=== PATIENT | female | born 1990 | race Caucasian/White ===

== ENCOUNTER 2017-11-25 16:43 | Emergency (ER) | payer MEDICAID, SELFPAY ==
[2017-11-25 16:44] VITALS: BP 146/93; PULSE 89; RESP 16; TEMP 36.7; O2SAT 96; BMI 28.8
--- NOTE | 2017-11-25 16:59 | RAD_ITS ---
STUDY: X-RAY - RIGHT WRIST REASON FOR EXAM: Female, 27 years old. Fall. Pain. TECHNIQUE: 3 view(s) of the wrist were obtained. COMPARISON: None. FINDINGS: Normal visualized distal radius and ulna. Normal radiocarpal articulation. Normal distal radioulnar articulation. Normal carpal bones. Normal carpal articulations. Normal carpometacarpal articulation of the thumb. Normal second through fifth carpometacarpal articulations. Normal visualized metacarpal bones. The soft tissue structures are unremarkable. RAD/Wrist min 3 Views IMPRESSION: Normal x-ray examination of the wrist. Electronically Signed: Fernie Ruffin DO at 17:23 EST Tel [phone], Service support ,
--- NOTE | 2017-11-25 17:00 | ED.DCSUM_ITS ---
- ER Visit Summary Date of Service: 11/25/17 Chief Complaint: [] Wrist pain History of Present Illness: The patient is a 27 F [] complaining of right wrist pain after mechanical fall on outstretched hand. Patient reports she tripped on something in her garage while cooking on her grill. Denies pain in the forearm or elbow. Physical Examination: [] Tenderness palpation to the radial aspect of the right wrist. Neurovascularly intact distally. Obvious contusion to the wrist. Test Results: [] X-rays of the right wrist: Negative. Emergency Department Course and Treatment: [] Patient did not want pain medication. Provided wrist splints and encouraged to take [id number] NSAIDs. Treatment Plan: [] Follow-up with PCP. Disposition: [] Discharge, stable. Impression: [] Wrist sprain This note was generated with [employer] dictation software. It may contain incorrect words, spelling, and punctuation that were not noted in review of the chart prior to signing ED Disposition - Plan for ED Patient: Chief Complaint: Upper Extremity Injury Referrals: Care Physician,No Primary [Primary Care Provider] -
--- NOTE | 2017-11-25 17:59 | ED.DEP ---
ED Disposition - Plan for ED Patient: Disposition: Home or Assisted Living Chief Complaint: Upper Extremity Injury Instructions: ED Sprain Wrist Referrals: Care Physician,No Primary [Primary Care Provider] -
== END 2017-11-25 18:11 | disposition home or self-care (01) ==
PROVIDERS: Emergency Provider Emergency Medicine
DX: S63.501A Unspecified sprain of right wrist, initial encounter (principal); W18.09XA Striking against other object with subsequent fall, initial encounter; Y93.G3 Activity, cooking and baking; Y92.008 Other place in unspecified non-institutional (private) residence as the place of occurrence of the external cause; Y99.8 Other external cause status; J45.909 Unspecified asthma, uncomplicated
CPT/HCPCS: 73110; 99283

== ENCOUNTER 2019-01-11 20:14 | Observation (INO) | payer MEDICAID, SELFPAY ==
[2019-01-11] VITALS (7 sets, daily range): BP systolic 119–135; BP diastolic 74–80; PULSE 89–124; RESP 16–20; TEMP 36.8; O2SAT 96–99; BMI 31.4
[2019-01-11] MEDS: predniSONE 20 MG Tablet 60 MG PO (20:33)
[2019-01-11] MEDS: Ipratropium/Albuterol Sulfate 3 ML AMPUL.NEB INHALATION (20:41)
--- NOTE | 2019-01-11 20:43 | ED.VISSUMM ---
- ER Visit Summary Date of Service: 01/11/19 Chief Complaint: Asthma exacerbation History of Present Illness: The patient is a 29 F with no primary care physician. She reports that she has a history of asthma. States it has been worse over the past week. She was started on prednisone naproxen 1 week ago. The taper finished yesterday. She reports that today she feels much worse. She is having severe shortness of breath at worst and moderate currently. She does report that she has a cough is productive yellow sputum. However, she reports this is typical of her asthma exacerbation. She denies any fever, chills, or other complaints. Physical Examination: Vitals: Stable. Afebrile. General: Well-nourished and well-developed. Head: Normocephalic atraumatic. Neck: Supple, no lymphadenopathy. No JVD. Nontender. Cardiovascular: Regular rate and rhythm. No murmurs. Respiratory: No respiratory distress. Moderate wheezing bilaterally with good air movement. Abdominal: Soft, nontender, nondistended, normal bowel sounds. No guarding, rebound, or peritoneal signs. Back: Nontender. Extremities: Nontender, no edema. Skin: Normal color, no rash. Neurologic: Alert and oriented ?3. Cranial nerves II through XII are intact. Normal strength and sensation. Psych: Normal affect. Emergency Department Course and Treatment: Patient was treated albuterol and Atrovent aerosols. She was given prednisone p.o. she had minimal relief. On repeat exam she is still wheezing. She was given 2 more albuterol aerosols with essentially no change. She then had a chest x-ray obtained that shows no acute disease. No pneumothorax. Treatment Plan: Patient has failed outpatient treatment. She just finished a week taper of prednisone. She will be discussed with Dr. Olvera and admitted for further evaluation and treatment. Disposition: Admitted in stable condition. Impression: 1. Asthma exacerbation. This note was generated with [employer] dictation software. It may contain incorrect words, spelling, and punctuation that were not noted in review of the chart prior to signing ED Disposition - Plan for ED Patient: Instructions: ED Bronchitis Asthmatic Prescriptions: Albuterol Aerosols [Ventolin Aerosols] 2.5 mg INHALATION Q4H PRN #25 vial Prednisone 10 mg PO DAILY #63 tablet Ipratropium [Atrovent] 0.25 mg INHALATION TID #1 box Referrals: Ashley Briscoe [NON-STAFF] - 1-2 Days if not improving
[2019-01-11] MEDS: Albuterol 2.5 MG/3 ML VIAL.NEB. INHALATION ×5 (21:43→23:45)
--- NOTE | 2019-01-11 23:08 | RAD_ITS ---
STUDY: X-RAY CHEST REASON FOR EXAM: Female, 29 years old. Shortness of breath TECHNIQUE: Single frontal view COMPARISON: April 08, 2016 FINDINGS: The lungs are expanded. Mild left lower lobe infiltrate suspected. Normal size heart. Normal mediastinum and vivi. Normal visualized pulmonary arteries. Normal visualized aortic arch and descending thoracic aorta. Normal visualized thoracic spine. Stable left clavicular ORIF. There is no demonstrated abnormality of the visualized soft tissue structures of the upper abdomen. RAD/Chest 1 View (Portable) IMPRESSION: Mild left lower lobe infiltrate. Electronically Signed: Gelacio Vazquez DO at 23:45 EDT Tel [phone], Service support ,
[2019-01-11] MEDS: 0.9% Normal Saline 1,000 ML 1000 ML IV (23:22)
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
[2019-01-12] VITALS (11 sets, daily range): BP systolic 110–119; BP diastolic 55–73; PULSE 80–103; RESP 16–21; TEMP 36.6–36.8; O2SAT 93–98; BMI 31.6; BMI 31.7
[2019-01-12] MEDS: Azithromycin 250 MG Tablet 500 MG PO (00:19)
[2019-01-12] MEDS: Ondansetron 4 MG/2 ML Vial IV (00:19)
[2019-01-12] MEDS: Morphine 4 MG/ML Syringe IV (00:19)
[2019-01-12] MEDS: guaiFENesin 1,200 MG Tablet 1200 MG PO ×2 (01:20→09:00)
[2019-01-12] MEDS: guaiFENesin/Codeine 5 ML UDC PO ×2 (01:20→07:46)
[2019-01-12] MEDS: Ipratropium/Albuterol Sulfate 3 ML AMPUL.NEB INHALATION ×2 (01:46→06:46)
[2019-01-12] MEDS: predniSONE 20 MG Tablet 40 MG PO (07:45)
--- NOTE | 2019-01-12 07:45 | RAD_ITS ---
STUDY: X-RAY CHEST REASON FOR EXAM: Female, 29 years old. Shortness of breath with dyspnea TECHNIQUE: Single AP portable view of the chest. COMPARISON: January 11, 2019 FINDINGS: Stable plate-screw fixation of the left clavicle. The lungs are clear and expanded. There is no demonstrated pleural abnormality. Normal size heart. Normal mediastinum and vivi. Normal visualized pulmonary arteries. Normal visualized aortic arch and descending thoracic aorta. Normal visualized thoracic spine. Normal visualized ribs, clavicles, and shoulders. There is no demonstrated abnormality of the visualized soft tissue structures of the upper abdomen. RAD/Chest 1 View (Portable) IMPRESSION: Normal x-ray examination of the chest. Electronically Signed: George Tejada DO at 11:59 EDT Tel , Service support ,
[2019-01-12] MEDS: Enoxaparin 40 MG/0.4 ML Syringe SC (09:00)
[2019-01-12] MEDS: Acetaminophen 500 MG Tablet 1000 MG PO (09:15)
[2019-01-12] MEDS: Albuterol 2.5 MG/3 ML VIAL.NEB. INHALATION (09:41)
--- NOTE | 2019-01-12 10:08 | PCM.PN.HOSP ---
Subjective: Patient was seen and examined. She complains of wheezes. Not on oxygen. Denies chest pain, SOB. Vitals/I&O's: Vital Signs Temp Pulse Resp BP Pulse Ox 98 F 98 21 H 110/55 L 98 01/12/19 06:30 01/12/19 09:43 01/12/19 09:43 01/12/19 06:30 01/12/19 07:28 Oxygen Delivery Method Room Air Weight: 91.8 kg Body Mass Index (BMI) 31.6 Intake and Output for Last 24 Hours 01/10/19 01/11/19 01/12/19 23:59 23:59 23:59 Intake Total 200 / 200 Balance 200 / 200 General: Alert, Oriented x3, Cooperative, No apparent distress, - - obese HEENT: Atraumatic, PERRLA, EOMI, Normocephalic Oral: Moist Mucosa Neck: Supple Lungs: Diminished, Rhonchi - generalised Cardiovascular: Regular rate, Regular Rhythm, Normal S1, Normal S2, No murmurs Abdomen: Bowel Sounds Present, Soft, Non Tender, Non-Distended, No Hepato-splenomegaly Extremities: No edema Skin: No rashes, No breakdown Musculoskeletal: No Tenderness to Palpation of Joints or Extremities Lymphatic: No Cervical, Supraclavicular, or Inguinal Adenopathy Neurological: Cranial nerves II-XII grossly intact Psych/Mental Status: Normal Affect, Appropriate Microbiology Past 72 Hours 01/12/19 01:50 Mucosa - Nose Respiratory Panel (PCR) - Final Rhinovirus Current Medications Acetaminophen (Tylenol) 1,000 mg PO Q8 [facility] Last Admin: 01/12/19 09:15 Dose: 1,000 mg Albuterol Sulfate (Ventolin Aerosols) 2.5 mg INHALATION Q2H PRN PRN PRN Reason: SHORTNESS OF BREATH Last Admin: 01/12/19 09:41 Dose: 2.5 mg Albuterol/Ipratropium (Duoneb) 3 ml INHALATION Q4H.RT [facility] Last Admin: 01/12/19 06:46 Dose: 3 ml Enoxaparin Sodium (Lovenox) 40 mg SC DAILY@1000 [facility] Last Admin: 01/12/19 09:00 Dose: 40 mg Guaifenesin (Mucinex) 1,200 mg PO BID [facility] Last Admin: 01/12/19 09:00 Dose: 1,200 mg Guaifenesin/Codeine Phosphate (Robitussin Ac) 5 ml PO Q6H PRN PRN PRN Reason: COUGH Last Admin: 01/12/19 07:46 Dose: 5 ml Magnesium Hydroxide (Milk Of Magnesia) 30 ml PO DAILY PRN PRN PRN Reason: Constipation Prednisone () 40 mg PO DAILY@0800 [facility] Last Admin: 01/12/19 07:45 Dose: 40 mg Sodium Chloride () 5 - 15 ml IV UD PRN PRN Reason: SALINE FLUSH Medical Necessity - Tobacco Use Smoking Status: Former smoker - She quit smoking 2 weeks ago. However she is a victim of secondhand smoking since many people in the house smoke. Assessment/Plan All Active Problems Asthma, extrinsic with exacerbation (Acute) 29 y/o female with PMHx of Asthma admitted with SOB and has been managed as acute asthma exacerbation. 1. Acute asthma exacerbation due to acute rhinovirus bronchitis, Managed on prednisone and breathing treatment, improved, Not on oxygen, will be discharged today on prednisone taper 2. History of Nicotine dependence, recently quit, advised to continue to quit 3. DVT prophylaxis with early ambulation/Lovenox Code Visit Inpatient E&M: 06098 Subs Hosp L2
--- NOTE | 2019-01-12 10:12 | PN_ITS ---
Subjective: Patient was seen and examined. She complains of wheezes. Not on oxygen. Denies chest pain, SOB. Vitals/I&O's: Vital Signs Temp Pulse Resp BP Pulse Ox 98 F 98 21 H 110/55 L 98 01/12/19 06:30 01/12/19 09:43 01/12/19 09:43 01/12/19 06:30 01/12/19 07:28 Oxygen Delivery Method Room Air Weight: 91.8 kg Body Mass Index (BMI) 31.6 Intake and Output for Last 24 Hours 01/10/19 01/11/19 01/12/19 23:59 23:59 23:59 Intake Total 200 / 200 Balance 200 / 200 General: Alert, Oriented x3, Cooperative, No apparent distress, - - obese HEENT: Atraumatic, PERRLA, EOMI, Normocephalic Oral: Moist Mucosa Neck: Supple Lungs: Diminished, Rhonchi - generalised Cardiovascular: Regular rate, Regular Rhythm, Normal S1, Normal S2, No murmurs Abdomen: Bowel Sounds Present, Soft, Non Tender, Non-Distended, No Hepato- splenomegaly Extremities: No edema Skin: No rashes, No breakdown Musculoskeletal: No Tenderness to Palpation of Joints or Extremities Lymphatic: No Cervical, Supraclavicular, or Inguinal Adenopathy Neurological: Cranial nerves II-XII grossly intact Psych/Mental Status: Normal Affect, Appropriate Microbiology Past 72 Hours 01/12/19 01:50 Mucosa - Nose Respiratory Panel (PCR) - Final Rhinovirus Current Medications Acetaminophen (Tylenol) 1,000 mg PO Q8 [facility] Last Admin: 01/12/19 09:15 Dose: 1,000 mg Albuterol Sulfate (Ventolin Aerosols) 2.5 mg INHALATION Q2H PRN PRN PRN Reason: SHORTNESS OF BREATH Last Admin: 01/12/19 09:41 Dose: 2.5 mg Albuterol/Ipratropium (Duoneb) 3 ml INHALATION Q4H.RT [facility] Last Admin: 01/12/19 06:46 Dose: 3 ml Enoxaparin Sodium (Lovenox) 40 mg SC DAILY@1000 [facility] Last Admin: 01/12/19 09:00 Dose: 40 mg Guaifenesin (Mucinex) 1,200 mg PO BID [facility] Last Admin: 01/12/19 09:00 Dose: 1,200 mg Guaifenesin/Codeine Phosphate (Robitussin Ac) 5 ml PO Q6H PRN PRN PRN Reason: COUGH Last Admin: 01/12/19 07:46 Dose: 5 ml Magnesium Hydroxide (Milk Of Magnesia) 30 ml PO DAILY PRN PRN PRN Reason: Constipation Prednisone () 40 mg PO DAILY@0800 L[facility] Last Admin: 01/12/19 07:45 Dose: 40 mg Sodium Chloride () 5 - 15 ml IV UD PRN PRN Reason: SALINE FLUSH Medical Necessity - Tobacco Use Smoking Status: Former smoker - She quit smoking 2 weeks ago. However she is a victim of secondhand smoking since many people in the house smoke. Assessment/Plan All Active Problems Asthma, extrinsic with exacerbation (Acute) 29 y/o female with PMHx of Asthma admitted with SOB and has been managed as acute asthma exacerbation. 1. Acute asthma exacerbation due to acute rhinovirus bronchitis, Managed on prednisone and breathing treatment, improved, Not on oxygen, will be discharged today on prednisone taper 2. History of Nicotine dependence, recently quit, advised to continue to quit 3. DVT prophylaxis with early ambulation/Lovenox Code Visit Inpatient E&M: 51101 Subs Hosp L2
--- NOTE | 2019-01-12 11:50 | CASEMGMT ---
Addendum entered by Courtney Lopez 01/12/19 12:13: Pt is discharged. SW tubed assist form to the retail pharmacy and let them know we are using hospital assist for pt. They will bring the meds to the pt by 2:15pm. Pt has two over the counter meds, SW asked pt about these, she states she does not need them. SW let the retail pharmacy know that they do not need to fill the Mucinex or Tylenol. SW let pt know that the retail pharmacy will bring the meds to her by 2:15pm, and that we used hospital assist. Pt thanked SW. No further needs, pt home today. STONE Fonseca, REGIONAL SERVICE MANAGER Original Note: SW met w/pt briefly as she does not have insurance at present. Pt states that she just recently reapplied for Medicaid, and is in the process of getting back on Medicaid, she does not need a Medicaid application. SW gave pt other resources for financial assist, including [employer], [facility], [facility] assist, dental assist programs, and list of food bennett and places for hot meals. SW inquired w/pt about her asthma medication, pt states she is out of all of her asthma meds, and they are not affordable. SW explained if she is discharged today can use hospital assist, and we can use this once per year. Otherwise, SW explained she can go to [employer] on Tuesday, could pay for a small amount to get through the weekend and then follow up to get assist for the rest on Tuesday. Pt states understanding. SW did leave a message for our financial dept to let them know that as per pt, she did recently reapply for Medicaid. SW did text physician and asked if she can send scripts to retail pharmacy so SW can assist pt today, even if pt is not discharged, as retail pharmacy is not open tomorrow. She states okay. SW will follow up w/retail pharmacy and pt. STONE Fonseca, REGIONAL SERVICE MANAGER
--- NOTE | 2019-01-12 11:51 | PCM.DC ---
- Discharge Diagnoses Reason(s) for Visit for Discharge Instructions: Shortness of breath You will use the following diet at home:: Regular Your food should be the consistency of: Regular Your liquids should be the consistency of: Regular/Thin Discharge Activity: Return to Normal Activity Weight Bearing Status: Weight bearing as tolerated Instructions: ED Bronchitis Asthmatic Additional Instructions: Complete your prednisone taper. Continue to use an inhaler as needed. Follow-up with your primary care doctor within 1-2 weeks. Allergies/Adverse Reactions: Allergies cefadroxil hydrate [From [facility] [place]] Allergy (Verified 01/11/19 20:17) Swelling Medications to take at Discharge Albuterol Aerosols [Ventolin Aerosols] 2.5 mg INHALATION Q4H PRN #25 vial 01/11/19 Acetaminophen [Tylenol] 1,000 mg PO Q8 PRN tablet 01/12/19 Albuterol Inhaler [Ventolin Hfa] 1 - 2 puff INHALATION Q4H PRN PRN #1 inhaler 01/12/19 Budesonide/Formoterol 160/4.5 [Symbicort 160/4.5 Mcg Inhaler (SP)] 2 puff INHALATION BID #1 inhaler 01/12/19 Guaifenesin [Mucinex] 1,200 mg PO BID #20 tablet 01/12/19 Prednisone 10 mg PO DAILY #30 tablet 01/12/19 The following prescriptions were given: Albuterol Aerosols [Ventolin Aerosols] 2.5 mg INHALATION Q4H PRN #25 vial Albuterol Inhaler [Ventolin Hfa] 1 - 2 puff INHALATION Q4H PRN PRN #1 inhaler PRN Reason: Wheezing Prednisone 10 mg PO DAILY #30 tablet Budesonide/Formoterol 160/4.5 [Symbicort 160/4.5 Mcg Inhaler (SP)] 2 puff INHALATION BID #1 inhaler Guaifenesin [Mucinex] 1,200 mg PO BID #20 tablet Primary Care Physician: Ashley Briscoe [NON-STAFF] - 1-2 Days if not improving Please follow up with your Primary Care Physician in: within 1-2 weeks Test Results: Test results from this visit will be discussed in further detail at your follow-up appointment, if applicable. Proposed Discharge Date: 01/12/19
--- NOTE | 2019-01-12 11:54 | DCINST_ITS ---
- Discharge Diagnoses Reason(s) for Visit for Discharge Instructions: Shortness of breath You will use the following diet at home:: Regular Your food should be the consistency of: Regular Your liquids should be the consistency of: Regular/Thin Discharge Activity: Return to Normal Activity Weight Bearing Status: Weight bearing as tolerated Instructions: ED Bronchitis Asthmatic Additional Instructions: Complete your prednisone taper. Continue to use an inhaler as needed. Follow-up with your primary care doctor within 1-2 weeks. Allergies/Adverse Reactions: Allergies cefadroxil hydrate [[place] [facility] [place] Allergy (Verified 01/11/19 20:17) Swelling Medications to take at Discharge Albuterol Aerosols [Ventolin Aerosols] 2.5 mg INHALATION Q4H PRN #25 vial 01/11/19 Acetaminophen [Tylenol] 1,000 mg PO Q8 PRN tablet 01/12/19 Albuterol Inhaler [Ventolin Hfa] 1 - 2 puff INHALATION Q4H PRN PRN #1 inhaler 01/12/19 Budesonide/Formoterol 160/4.5 [Symbicort 160/4.5 Mcg Inhaler (SP)] 2 puff INHALATION BID #1 inhaler 01/12/19 Guaifenesin [Mucinex] 1,200 mg PO BID #20 tablet 01/12/19 Prednisone 10 mg PO DAILY #30 tablet 01/12/19 The following prescriptions were given: Albuterol Aerosols [Ventolin Aerosols] 2.5 mg INHALATION Q4H PRN #25 vial Albuterol Inhaler [Ventolin Hfa] 1 - 2 puff INHALATION Q4H PRN PRN #1 inhaler PRN Reason: Wheezing Prednisone 10 mg PO DAILY #30 tablet Budesonide/Formoterol 160/4.5 [Symbicort 160/4.5 Mcg Inhaler (SP)] 2 puff INHALATION BID #1 inhaler Guaifenesin [Mucinex] 1,200 mg PO BID #20 tablet Primary Care Physician: Ashley Briscoe [NON-STAFF] - 1-2 Days if not improving Please follow up with your Primary Care Physician in: within 1-2 weeks Test Results: Test results from this visit will be discussed in further detail at your follow- up appointment, if applicable. Proposed Discharge Date: 01/12/19
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
== END 2019-01-12 14:14 | disposition home or self-care (01) ==
LOC: ED 20:46 → MS2 23:47
PROVIDERS: Admitting Provider Hospitalist; Emergency Provider Emergency Medicine; Visit Provider Internal Medicine
DX: J20.6 Acute bronchitis due to rhinovirus (principal); J45.901 Unspecified asthma with (acute) exacerbation; Z86.718 Personal history of other venous thrombosis and embolism; Z79.51 Long term (current) use of inhaled steroids; Z87.891 Personal history of nicotine dependence
CPT/HCPCS: 71045; 87633; 94640; 94667; 96372; 96374; 96375; 97802; 99218; 99283; J7030; G0378; J2405

== ENCOUNTER 2019-04-16 08:55 | Observation (INO) | payer MEDICAID, SELFPAY ==
[2019-01-12 00:32] VITALS: BMI 31.6
[2019-04-16] VITALS (13 sets, daily range): BP systolic 95–140; BP diastolic 50–84; PULSE 78–101; RESP 10–24; TEMP 36.3–36.8; O2SAT 93–98; BMI 28.8; BMI 30.7
[2019-04-16] MEDS: Albuterol 2.5 MG/3 ML VIAL.NEB. INHALATION ×8 (09:18→23:37)
[2019-04-16] MEDS: Ipratropium/Albuterol Sulfate 3 ML AMPUL.NEB INHALATION ×2 (09:18→11:37)
--- NOTE | 2019-04-16 09:26 | ED.VISSUMM ---
- ER Visit Summary Date of Service: 04/16/19 Chief Complaint: Asthma History of Present Illness: The patient is a 29 F with history of asthma. Patient states she has had increased shortness of breath over the weekend. Her home inhalers were not helping. She states she usually has flares this time a year she also helped a family member move this weekend and was exposed to a lot of dust. She was last on steroids approximately 3 months ago. Physical Examination: Vital signs unremarkable. Respiratory rate is 24 and pulse ox is 98% on room air. Patient sitting upright in bed reading a book. Heart is regular rate and rhythm. Lung sounds with inspiratory and expiratory wheezes throughout. Abdomen is soft and nontender. Test Results: CBC and chemistry studies unremarkable. Portable chest x-ray unremarkable. Emergency Department Course and Treatment: Patient was initially given aerosols and p.o. prednisone. On repeat evaluation she had increased air movement throughout but still had expiratory greater than inspiratory wheezes. She was given 2 additional albuterol treatments. On repeat evaluation at that time she continued to have significant wheezing. She was given an additional DuoNeb and decision was made to admit her. Treatment Plan: [] Disposition: Admit Impression: Asthma exacerbation This note was generated with [employer] dictation software. It may contain incorrect words, spelling, and punctuation that were not noted in review of the chart prior to signing ED Disposition - Plan for ED Patient: Referrals: Care Physician,No Primary [Primary Care Provider] -
[2019-04-16] MEDS: predniSONE 20 MG Tablet 60 MG PO (09:31)
--- NOTE | 2019-04-16 11:25 | RAD_ITS ---
STUDY: X-RAY CHEST REASON FOR EXAM: Female, 29 years old. Shortness of breath TECHNIQUE: Single AP portable view of the chest. COMPARISON: January 12, 2019 FINDINGS: Prior surgical fixation of the left clavicle, stable The lungs are clear and expanded. There is no demonstrated pleural abnormality. Normal size heart. Normal mediastinum and vivi. Normal visualized pulmonary arteries. Normal visualized aortic arch and descending thoracic aorta. Normal visualized thoracic spine. Normal visualized ribs, clavicles, and shoulders. There is no demonstrated abnormality of the visualized soft tissue structures of the upper abdomen. RAD/Chest 1 View (Portable) IMPRESSION: Normal x-ray examination of the chest. Electronically Signed: George Tejada DO at 11:43 EDT Tel , Service support ,
[2019-04-16 11:41] LABS: Absolute Lymphocyte Count 1.16 X10^3/ul (0.83-4.51); Absolute Neutrophil Count 8.3 X10^3/uL (2.0-7.7); Basophil# 0.02 X10^3/uL; Basophil% 0.2 % (0-1); Eosinophil# 0.21 X10^3/uL; Eosinophils% 2.1 % (0-5); Hematocrit 38.3 % (37-47); Hemoglobin 12.7 g/dl (12.0-15.0); Lymphocyte # 1.16 X10^3/ul (4.0); Lymphocyte % 11.4 % (19-41); Mean Corp Hgb Conc 33.2 g/gl (32-36); Mean Corpuscular Hgb 31.8 pg (27.0-32.0); Mean Platelet Vol. 9.8 fl (6.2-12.0); Monocyte# 0.47 X10^3/uL; Monocyte% 4.6 % (0-10); Neutrophil # 8.29 X10^3/uL (2.7-7.7); Neutrophil % 81.6 % (47-70); Platelet Count 171 K/mm3 (150-450); RBC Distribution Width CV 13.2 % (11.6-14.6); RBC Distribution Width SD 44.6 fl (35.1-43.9); Red Blood Count 3.99 M/mm3 (4.2-5.4); White Blood Count 10.2 K/mm3 (4.4-11.0)
[2019-04-16 11:44] LABS: POSITIVE COUNT NO; POSITIVE DIFFERENTIAL NO; POSITIVE MORPHOLOGY NO
[2019-04-16 11:54] LABS: Anion Gap 8 (5-15); BUN 16 mg/dL (7-18); Calcium,Total 8.2 mg/dL (8.5-10.1); Chloride 110 mmol/L (98-107); Creatinine, Serum 0.76 mg/dL (0.55-1.02); EST Glomerular Filtration Rate 96 mL/min (>60); Est Glom Filt Rate - Afr Amer 116 mL/min (>60); Estimated Creatinine Clearance 111.17 ml/min; Glucose 126 mg/dL (74-106); Potassium 3.9 mmol/L (3.5-5.1); Sodium Level 143 mmol/L (136-145)
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
[2019-04-16] MEDS: Loratadine 10 MG Tablet PO (18:37)
[2019-04-16] MEDS: 0.9% NaCl Peripheral Flush Adult/Peds IV ×2 (18:37→21:38)
[2019-04-16] MEDS: Acetaminophen 325 MG Tablet 650 MG PO (20:52)
[2019-04-17] VITALS (7 sets, daily range): BP systolic 107–119; BP diastolic 57–61; PULSE 76–88; RESP 18–20; TEMP 36.8–37.1; O2SAT 92–96
[2019-04-17] MEDS: Acetaminophen 325 MG Tablet 650 MG PO ×2 (03:25→09:38)
[2019-04-17] MEDS: Albuterol 2.5 MG/3 ML VIAL.NEB. INHALATION ×3 (03:33→10:55)
[2019-04-17] MEDS: 0.9% NaCl Peripheral Flush Adult/Peds IV (06:23)
[2019-04-17] MEDS: Loratadine 10 MG Tablet PO (08:30)
--- NOTE | 2019-04-17 09:56 | DCINST_ITS ---
You will use the following diet at home:: No restrictions Discharge Activity: Return to Normal Activity Allergies/Adverse Reactions: Allergies cefadroxil hydrate [From [facility]] Allergy (Verified 04/16/19 08:55) Swelling Medications to take at Discharge Albuterol Inhaler [Ventolin Hfa] 1 - 2 puff INHALATION Q4H PRN PRN #1 inhaler 04/17/19 Budesonide/Formoterol 160/4.5 [Symbicort 160/4.5 Mcg Inhaler (SP)] 2 puff PO DAILY #1 inhaler 04/17/19 Cetirizine HCl [Zyrtec] 10 mg PO DAILY #30 cap 04/17/19 Prednisone See Taper PO DAILY #30 tab 04/17/19 The following prescriptions were given: Prednisone See Taper PO DAILY #30 tab Transmission Status: Pending to [facility] Budesonide/Formoterol 160/4.5 [Symbicort 160/4.5 Mcg Inhaler (SP)] 2 puff PO DAILY #1 inhaler Transmission Status: Pending to [facility] Albuterol Inhaler [Ventolin Hfa] 1 - 2 puff INHALATION Q4H PRN PRN #1 inhaler PRN Reason: Wheezing Transmission Status: Pending to [facility] Cetirizine HCl [Zyrtec] 10 mg PO DAILY #30 cap Transmission Status: Pending to [facility] Primary Care Physician: Care Physician,No Primary [Primary Care Provider] - Please follow up with your Primary Care Physician in: 1 Week Test Results: Test results from this visit will be discussed in further detail at your follow- up appointment, if applicable. Proposed Discharge Date: 04/17/19
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
== END 2019-04-17 13:00 | disposition home or self-care (01) ==
LOC: ED 09:43 → MS3 12:34
PROVIDERS: Admitting Provider Internal Medicine; Emergency Provider Emergency Medicine; Visit Provider Internal Medicine
DX: J45.901 Unspecified asthma with (acute) exacerbation (principal); Z87.891 Personal history of nicotine dependence; Z86.718 Personal history of other venous thrombosis and embolism; Z79.51 Long term (current) use of inhaled steroids
CPT/HCPCS: 71045; 80048; 85025; 94640; 96374; 96376; 99218; 99251; 99284; A4216; G0378; G0463

== ENCOUNTER 2020-03-30 01:53 | Emergency (ER) | payer SELFPAY ==
[2019-04-16 12:49] VITALS: BMI 30.7
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
[2020-03-30] MEDS: HYDROcodone Bitartrate/Apap 5/325 Tablet PO (02:40)
[2020-03-30 03:12] VITALS: BP 123/59; PULSE 91; RESP 16; TEMP 36.2; O2SAT 93; BMI 37.3
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
[2020-03-30 04:00] VITALS: BP 106/52; PULSE 76; RESP 18; O2SAT 96
[2020-03-30 04:31] VITALS: PULSE 83; RESP 18
[2020-03-30] MEDS: Albuterol 2.5 MG/3 ML VIAL.NEB. INHALATION (04:31)
[2020-03-30] MEDS: AMOXICILLIN 500 MG CAPSULE PO (06:16)
[2020-03-30 06:17] VITALS: BP 134/78; PULSE 74; RESP 18; O2SAT 98
--- NOTE | 2020-03-30 06:18 | ED.RN ---
PT REFUSES TO HAVE HAND WOUND CLEANED., STATES SHE WANTS TO CLEAN THE WOUND AT HOME. EDUCATED RE: INCREASED RISK OF INFECTION AND IMPORTANCE OF CLEANSING.
== END 2020-03-30 07:02 | disposition home or self-care (01) ==
PROVIDERS: Emergency Provider Emergency Medicine
DX: S62.665A Nondisplaced fracture of distal phalanx of left ring finger, initial encounter for closed fracture (principal); S61.222A Laceration with foreign body of right middle finger without damage to nail, initial encounter; S51.821A Laceration with foreign body of right forearm, initial encounter; W22.8XXA Striking against or struck by other objects, initial encounter; Y93.89 Activity, other specified; Y92.9 Unspecified place or not applicable; F10.129 Alcohol abuse with intoxication, unspecified; Y90.9 Presence of alcohol in blood, level not specified; J45.909 Unspecified asthma, uncomplicated; Z88.1 Allergy status to other antibiotic agents; Z87.891 Personal history of nicotine dependence
CPT/HCPCS: 12002; 73090; 73130; 94640; 99285

== ENCOUNTER 2020-07-12 12:45 | Emergency (ER) | payer SELFPAY ==
[2020-07-12] VITALS (7 sets, daily range): BP systolic 106–129; BP diastolic 74–91; PULSE 94–110; RESP 16–24; TEMP 36.1; O2SAT 95–96; BMI 32.8
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
[2020-07-12] MEDS: Albuterol 2.5 MG/3 ML VIAL.NEB. INHALATION ×2 (13:10)
[2020-07-12] MEDS: Terbutaline 1 MG/ML Vial 0.25 MG SC (13:10)
[2020-07-12] MEDS: Ipratropium/Albuterol Sulfate 3 ML AMPUL.NEB INHALATION (14:43)
[2020-07-12] MEDS: Triamcinolone Acetonide 40 MG/ML Vial IM (14:45)
== END 2020-07-12 17:07 | disposition home or self-care (01) ==
PROVIDERS: Emergency Provider Emergency Medicine
DX: J45.901 Unspecified asthma with (acute) exacerbation (principal); Z87.891 Personal history of nicotine dependence
CPT/HCPCS: 94640; 99284

== ENCOUNTER 2022-03-23 06:41 | Emergency (ER) | payer MEDICAID, SELFPAY ==
[2022-03-23 06:42] VITALS: BP 131/93; PULSE 92; RESP 13; TEMP 36.6; O2SAT 100; BMI 32.3
[2022-03-23 06:48] VITALS: BP 111/80; BP 118/81; BP 123/89; PULSE 122; PULSE 81; PULSE 93
--- NOTE | 2022-03-23 07:03 | RAD_ITS ---
STUDY: X-RAY CHEST REASON FOR EXAM: Female, 32 years old. chest pain TECHNIQUE: Single AP portable view of the chest. 7:34 AM. COMPARISON: Previous chest radiographs of 04/16/2019, 01/12/2019 and 01/11/2019. FINDINGS: Slightly increased density is again projected over the lower lungs, due to overlying breast tissue, unchanged. No acute pulmonary infiltrates, pleural effusion or peribronchial cuffing identified. Normal size heart. Normal mediastinum and vivi. Normal visualized pulmonary arteries. Normal visualized aortic arch and descending thoracic aorta. No acute osseous abnormality. Metallic fixation plate and screws again projected over the left clavicle. There is no demonstrated abnormality of the visualized soft tissue structures of the upper abdomen. RAD/Chest 1 View (Portable) IMPRESSION: No significant interval change or acute process. Electronically Signed: Avery Robert MD at 7:49 EDT ,
--- NOTE | 2022-03-23 07:03 | EKG12_ITS ---
Test Reason : CHEST PAIN Blood Pressure : / mmHG Vent. Rate : 090 BPM Atrial Rate : 090 BPM P-R Int : 176 ms QRS Dur : 090 ms QT Int : 372 ms P-R-T Axes : 077 068 050 degrees QTc Int : 455 ms Normal sinus rhythm Nonspecific T wave abnormality Abnormal ECG Confirmed by KAMI TRUJILLO, JO ([id number]), editor house organ STEPH FAGAN ([id number]) on 03/24/2022 9:00:51 AM Referred By: ARON Confirmed By:JO MCCLURE MD
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
[2022-03-23 07:14] LABS: Absolute Lymphocyte Count 1.63 X10^3/uL (0.83-4.51); Absolute Neutrophil Count 6.8 X10^3/uL (2.0-7.7); Basophil# 0.02 X10^3/uL; Basophil% 0.2 % (0-1); Eosinophil# 0.01 X10^3/uL; Eosinophils% 0.1 % (0-5); Hemoglobin 14.3 g/dL (12.0-15.0); Lymphocyte # 1.63 X10^3/ul (0.83-4.51); Lymphocyte % 18.2 % (19-41); Mean Corpuscular Hgb 31.9 pg (27.0-32.0); Mean Corpuscular Volume 93.8 fL (81-99); Mean Platelet Vol. 10.4 fl (6.2-12.0); Monocyte# 0.45 X10^3/uL; NRBC Flagged by Analyzer 0 % (0-5); Neutrophil # 6.83 X10^3/uL (2.7-7.7); Neutrophil % 76.2 % (47-70); Platelet Count 256 K/mm3 (150-450); RBC Distribution Width CV 12.6 % (11.6-14.6); RBC Distribution Width SD 43.4 fl (35.1-43.9); Red Blood Count 4.48 M/mm3 (4.2-5.4)
[2022-03-23] MEDS: Ondansetron 4 MG/2 ML Vial IV (07:19)
[2022-03-23] MEDS: 0.9% Normal Saline 1,000 ML 1000 ML IV (07:19)
[2022-03-23] MEDS: LORazepam 2 MG/ML Syringe 1 MG IV (07:20)
[2022-03-23 07:28] LABS: D-Dimer Quantitative (DVT/PE) < 0.27 FEU/ug/m (0.27-0.49)
[2022-03-23 07:32] LABS: Anion Gap 6 (5-15); BUN 9 mg/dL (7-18); BUN/Creat Ratio 11.5 RATIO (10-20); Calcium,Total 9.1 mg/dL (8.5-10.1); Chloride 104 mmol/L (98-107); Creatinine, Serum 0.78 mg/dL (0.55-1.02); EST Glomerular Filtration Rate 91 mL/min (>60); Est Glom Filt Rate - Afr Amer 111 mL/min (>60); Estimated Creatinine Clearance 101.62 ml/min; Glucose 156 mg/dL (74-106); Potassium 3.2 mmol/L (3.5-5.1); Sodium Level 136 mmol/L (136-145); Troponin-I HS < 3 pg/mL (3.0-54.0)
[2022-03-23] MEDS: Potassium Chloride Oral Tablet 20 MEQ 40 MEQ PO (07:52)
[2022-03-23 08:42] VITALS: BP 160/88; PULSE 86; RESP 20; O2SAT 97
[2022-03-23] MEDS: Ziprasidone IM 20 MG/ML VIAL 10 MG IM (08:43)
[2022-03-23 10:53] VITALS: RESP 16
--- NOTE | 2022-03-23 13:38 | CM.ED ---
Social Work Psychiatric Assessment Reason for consult: Anxiety Informant(s): Patient Chief Complaint: LIANG and LIANG Ledy Bermudez met with patient. Patient was restless and moving from bed to around the bed at the beginning of the assessment. LIANG offered a stress ball, but patient declined and said ?it is not going to make a difference? but SW encouraged her to try. Patient said that she came to the ED for chest pains and anxiety. Patient said she ?couldn?t sleep? and that she ?could hear my heartbeat in my ears and I got dizzy.? Patient said that she had anxiety for ?years? and that nothing has helped. SW later talked to patient about drug use. Patient reports drug use of Percocet and marijuana but quit 1 year ago. SW discussed with patient that she had anxiety but masked it with the drugs, so her feelings of anxiety are amplified as she has not felt this intensity before. Patient verbalized understanding and was able to voice that she had felt this way similarity when she detoxed from opiates last year and had thought about it with these symptoms. Patient said that she had detoxed from opiates by herself and did that for her daughter. Patient said that she had decided to quit using last year as ?my daughter was getting older.? As this travel writer continued to talk about patient?s history of drug use and previous ways, she medicated herself patient appeared to relax more and was able to sit still and focus more. Patient was also able to respond to text messages. At the end of the conversation patient was able to talk and have good eye contact and was not as restless as she had been during the beginning of the conversation. Patient denied SI and HI. Patient was advised if she has any symptoms of SI/HI to come back to the ED and patient verbalized agreement and understanding. Marital/Social History: Marital Status: x Single Identified Gender: Female Sexual Orientation: Heterosexual Living Situation: Patient resides with her boyfriend, Randell and 10-year-old daughter, Kate. Support/Resources: Patient was asked about support, and she said ?no one.? History: x No Education and Employment History: Patient graduated from high school. Patient reports no learning issues. Patient attended to the [employer] and graduated the program for animal care. Patient is not employed. Mental Health Treatment/History: Patient reports she has never gone to a counselor. Reports she has never been on psych medication. Triggers/Stressors: Patient said that her stressors are ?financial and life in general.? Coping Skills: ?I don?t have any? and when SW suggested coping skills patient said she enjoyed music and crafts. Abuse Issues: Denied Substance Abuse Hx: x Yes Patient reports that she used marijuana and pills (Percocet?s) until last year when she stopped by herself, no program involved for treatment. Patient denied any current drug use. Patient denied any meth or crack use. Risk to Self/Others: Suicidal: Patient denied any thoughts of SI, any plans, and any attempts. Comments: Homicidal: Denied Comments: Violence: Denied Comments: Mental Status Exam: Orientation: x Time x Place x Person Memory: Good Appearance/General Behavior: x clean/appropriate Mood/Affect: Anxious and restless Communication Pattern: x responds to questions At one time patient stated she apologizes for being rude, but she was so anxious that it was uncomfortable, Thought Process: x appropriate General Intellectual Functioning: x Average Judgment: x fair Insight: fair Patient was educated on the [facility] PHP/IOP program. Patient was open to a referral. SW offered to call and schedule an intake appointment and patient said that she would do it as she must ensure she has a ride and childcare issues. Patient was able to discuss that she must make plans to obtain employment also (thus demonstrating future orientation). Patient reports a connection to her child and stated she quit drug use due to her child getting older. Patient also reports no SI/HI or any attempts of SI. LIANG educated patient on [employer], and patient declined information. LIANG provided patient with [employer] resource list and included the phone number for crisis. LIANG provided handout on [facility] Behavioral Health and included Cayla Gary?rober business card for contact. LIANG also was able to contract with patient that if she had thoughts of SI or HI, she would return to the ED. LIANG updated MD Adrianne Sales who agreed with plan for patient to be discharged with referral to IOP/PHP. LIANG sent email to Cayla Gary at [facility] regarding patient and her interest in the program. LIANG did not schedule an appointment as patient had stated she would call once her ride and child situation arrangements were arranged. Plan: Home with referral to PHP/IOP Luba SANDOVAL
--- NOTE | 2022-03-24 10:19 | CM.ED ---
Addendum entered by Ledy Belcher 03/24/22 14:36: Another call was placed to pt for follow up - no answer. Original Note: Social Work Note SW attempted to call pt for follow up phone call. SW left message for pt to call this worker back. Ledy Belcher RETAIL SEASONAL SPECIALIST, TRANSITIONS RN CARE COORDINATOR
== END 2022-03-23 11:13 | disposition home or self-care (01) ==
PROVIDERS: Emergency Medicine; Emergency Provider Emergency Medicine; Visit Provider Emergency Medicine
DX: F41.9 Anxiety disorder, unspecified (principal); R07.9 Chest pain, unspecified; R42 Dizziness and giddiness; F17.210 Nicotine dependence, cigarettes, uncomplicated; Z86.718 Personal history of other venous thrombosis and embolism
CPT/HCPCS: 71045; 80048; 84484; 85025; 85379; 87811; 93005; 96361; 96372; 96374; 96375; 99285; J7030; A4216; J2405; J3486

== ENCOUNTER 2024-10-16 00:25 | Emergency (ER) | payer MEDICAID, SELFPAY ==
[2024-10-16 00:26] VITALS: BP 102/87; PULSE 112; RESP 18; TEMP 36.8; O2SAT 97; BMI 26.4
[2024-10-16 00:32] VITALS: PULSE 114; RESP 16
[2024-10-16] MEDS: Ipratropium/Albuterol Sulfate 3 ML AMPUL.NEB INHALATION ×3 (00:32→01:01)
--- NOTE | 2024-10-16 00:58 | EKG12_ITS ---
Test Reason : DYSRHYTHMIA Blood Pressure : */* mmHG Vent. Rate : 98 BPM Atrial Rate : 98 BPM P-R Int : 148 ms QRS Dur : 88 ms QT Int : 408 ms P-R-T Axes : 83 81 72 degrees QTcB Int : 520 ms Normal sinus rhythm Possible Left atrial enlargement Nonspecific T wave abnormality Abnormal ECG Confirmed by KAMI TRUJILLO, JO ([id number]), assignment desk editor STEPH FAGAN ([id number]) on 10/18/2024 2:25:59 PM Referred By: TB Confirmed By: JO MCCLURE MD
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
[2024-10-16] MEDS: predniSONE 20 MG Tablet 60 MG PO (01:16)
[2024-10-16] MEDS: 0.9% Normal Saline (1000mL) 1,000 ML 999 ML IV (01:16)
--- NOTE | 2024-10-16 01:16 | CPS ---
[0049] x2 additional Duonebs given to pt. in ER. Pre-tx: VH=376, LB=534 with clearer breath sounds with inspiratory and expiratory wheezes. Post-tx: JD=221, RR=16 with clear breath sounds and only inspiratory wheezes.
[2024-10-16 01:26] LABS: Absolute Lymphocyte Count 1.01 X10^3/uL (0.83-4.51); Absolute Neutrophil Count 8.7 X10^3/uL (2.0-7.7); Basophil# 0.02 X10^3/uL; Basophil% 0.2 % (0-1); Hematocrit 41.1 % (37-47); Hemoglobin 13.9 g/dL (12.0-15.0); Lymphocyte # 1.01 X10^3/ul (0.83-4.51); Lymphocyte % 9.8 % (19-41); Mean Corp Hgb Conc 33.8 g/dL (32-36); Mean Corpuscular Hgb 32.3 pg (27.0-32.0); Mean Corpuscular Volume 95.6 fL (81-99); Mean Platelet Vol. 9.7 fl (6.2-12.0); Monocyte% 5.8 % (0-10); NRBC Flagged by Analyzer 0 % (0-5); Neutrophil # 8.66 X10^3/uL (2.7-7.7); Neutrophil % 83.7 % (47-70); Platelet Count 245 K/mm3 (150-450); RBC Distribution Width SD 45.5 fl (35.1-43.9); White Blood Count 10.3 K/mm3 (4.4-11.0)
--- NOTE | 2024-10-16 01:30 | RAD_ITS ---
EXAM: XR CHEST, 2 VIEWS CLINICAL INDICATION: sob, cough TECHNIQUE: Frontal and lateral views of the chest. COMPARISON: Single view chest 03/23/2022 FINDINGS: LUNGS AND PLEURAL SPACES: Unremarkable. No consolidation or edema. No pneumothorax. No effusion. HEART: Unremarkable. Cardiac silhouette not enlarged. MEDIASTINUM: Central airways and mediastinal contour are unremarkable. BONES/JOINTS: Stable surgical changes of the left clavicle. No acute fracture. SOFT TISSUES: Unremarkable. RAD/Chest PA and Lateral IMPRESSION: No acute findings in the chest. Electronically Signed: Jason Dumont MD at 1:57 EST ,
[2024-10-16 01:42] LABS: Anion Gap 7 (5-15); BUN 13 mg/dL (7-18); BUN/Creat Ratio 13.3 RATIO (10-20); Calcium,Total 9.3 mg/dL (8.5-10.1); Chloride 103 mmol/L (98-107); Creatinine, Serum 0.98 mg/dL (0.55-1.02); EST Glomerular Filtration Rate 69 mL/min (>60); Est Glom Filt Rate - Afr Amer 84 mL/min (>60); Estimated Creatinine Clearance 87.08 ml/min; Glucose 118 mg/dL (74-106); Potassium 3.5 mmol/L (3.5-5.1); Sodium Level 138 mmol/L (136-145)
[2024-10-16 02:25] VITALS: BP 109/64; PULSE 89; RESP 18; O2SAT 98
[2024-10-16 02:26] VITALS: O2SAT 96
[2024-10-16 02:27] VITALS: BP 109/64; PULSE 89; RESP 18; TEMP 36.8; O2SAT 98
[2024-10-16] MEDS: Doxycycline 100 MG CAPSULE PO (02:42)
[2024-10-16] MEDS: Albuterol Sulfate 8 gm Inhaler (60 puffs) 2 PUFF INHALATION (02:46)
== END 2024-10-16 02:48 | disposition home or self-care (01) ==
PROVIDERS: Emergency Provider Emergency Medicine; Visit Provider Emergency Medicine
DX: J45.901 Unspecified asthma with (acute) exacerbation (principal); F17.210 Nicotine dependence, cigarettes, uncomplicated
CPT/HCPCS: 71046; 80048; 85025; 93005; 94640; 99284; J7030

== ENCOUNTER 2024-10-16 21:12 | Observation (INO) | payer MEDICAID, SELFPAY ==
[2024-10-16] VITALS (12 sets, daily range): BP systolic 120–142; BP diastolic 68–112; PULSE 83–101; RESP 8–25; TEMP 36.6–36.8; O2SAT 96–98; BMI 26.5
[2024-10-16] MEDS: Ipratropium/Albuterol Sulfate 3 ML AMPUL.NEB INHALATION (21:28)
[2024-10-16] MEDS: 0.9% Normal Saline (1000mL) 1,000 ML 999 ML IV (21:29)
[2024-10-16] MEDS: MethylPREDNISolone 125 MG/2 ML Vial IV (21:29)
[2024-10-16 21:32] LABS: Absolute Lymphocyte Count 0.48 X10^3/uL (0.83-4.51); Absolute Neutrophil Count 10.6 X10^3/uL (2.0-7.7); Basophil# 0.01 X10^3/uL; Basophil% 0.1 % (0-1); Hematocrit 42.5 % (37-47); Hemoglobin 14.3 g/dL (12.0-15.0); Lymphocyte # 0.48 X10^3/ul (0.83-4.51); Lymphocyte % 4.1 % (19-41); Mean Corp Hgb Conc 33.6 g/dL (32-36); Mean Corpuscular Hgb 32.5 pg (27.0-32.0); Mean Corpuscular Volume 96.6 fL (81-99); Mean Platelet Vol. 9.8 fl (6.2-12.0); Monocyte% 5.1 % (0-10); NRBC Flagged by Analyzer 0 % (0-5); Neutrophil # 10.64 X10^3/uL (2.7-7.7); Neutrophil % 90.3 % (47-70); POSITIVE DIFFERENTIAL YES; Platelet Count 252 K/mm3 (150-450); RBC Distribution Width CV 13.1 % (11.6-14.6); RBC Distribution Width SD 46.8 fl (35.1-43.9); White Blood Count 11.8 K/mm3 (4.4-11.0)
--- NOTE | 2024-10-16 21:41 | ED.VIS.DYS ---
HPI History of Present Illness Chief Complaint: Asthma Narrative Narrative: Chief complaint and HPI: Asthma exacerbation. 34-year-old female with past medical history of asthma on Flovent twice daily and albuterol inhaler as needed presents for evaluation of asthma exacerbation. Patient states for the past few days she has had URI type symptoms consisting of cough. She states at baseline she is a tobacco abuser but has not used in the past 5 days. Patient states that she does not have home nebulizer treatments. Patient states her shortness of breath has progressively worsened. She states that it worsened last night in which she was seen early this morning in her emergency department. She states her shortness of breath improved but has gradually worsened throughout the day bringing her back. She denies any chest pain, abdominal pain, nausea, vomiting. On chart review, patient had a negative COVID-19 test. CBC and BMP were relatively unremarkable. Chest x-ray without pneumonia. Patient was discharged home on doxycycline 100 mg twice daily for 5 days as well as 50 mg prednisone for 5 days. Patient was given DuoNebs in the emergency department. Review of systems: See HPI Medications: As listed on the chart Allergies: As listed on the chart PFSH: Per chart Vital signs: As listed on the chart. Reviewed. Physical exam: Gen: A&O x3 Head: Normocephalic, atraumatic Eyes: No sclera icterus, conjunctiva clear ENT: Moist mucous membranes Neck: Trachea midline, No JVD CV: RRR, no murmurs, no peripheral edema Resp: Intermittently tachypneic and dyspneic, diffuse expiratory wheezing, tight, poor airflow, + cough GI: Abd soft, non-distended, non-tender, no r/r/g Musc: Full ROM, no deformity Skin: Warm, dry Neuro: Alert, oriented, grossly intact, sensation intact Psych: Cooperative, appropriate mood and affect [facility] Medical History Asthma Home Medications ?Medication ?Instructions ?Recorded ?Last Taken ?Type albuterol sulfate 90 mcg/actuation 1 - 2 puff inhalation Q4H PRN PRN 04/17/19 07/12/20 Rx aerosol inhaler Wheezing ##1 hydroxyzine HCl 25 mg tablet 25 mg PO TID PRN anxiety #20 tabs 03/23/22 Unknown Rx doxycycline hyclate 100 mg capsule 100 mg PO BID 5 days #10 caps 10/16/24 Unknown Rx fluticasone propionate 100 1 inh inhalation BID 10/16/24 Unknown History mcg/actuation blister powder for inhalation (Flovent Diskus) prednisone 50 mg tablet 50 mg PO DAILY 5 days #5 tabs 10/16/24 Unknown Rx Allergy/AdvReac Type Severity Reaction Status Date / Time cefadroxil hydrate (From Allergy Swelling Verified 10/16/24 21:13 Sandy) Social History Smoking Status: Current some day smoker tobacco type: cigarettes EXAM Physical Exam Const Vital Signs: 10/16/24 21:13 10/16/24 21:19 10/16/24 21:19 Temperature 98.3 F 98 F Temperature Source Temporal Oral Pulse Rate 101 H 100 Respiratory Rate 25 H 18 Respiratory Effort Normal Short of Breath Respiratory Depth Normal Respiratory Pattern Normal Blood Pressure 130/81 H 142/68 H Blood Pressure Mean 97 92 Pulse Ox 96 96 Oxygen Delivery Method Room Air Room Air Room Air 10/16/24 21:28 Temperature Temperature Source Pulse Rate 98 Respiratory Rate 16 Respiratory Effort Respiratory Depth Respiratory Pattern Normal Blood Pressure Blood Pressure Mean Pulse Ox Oxygen Delivery Method MDM MDM MDM Narrative Medical decision making narrative: 34-year-old female with past medical history of asthma on Flovent twice daily and albuterol inhaler as needed presents for evaluation of asthma exacerbation. Patient was seen earlier in our emergency department and treated for asthma exacerbation with DuoNebs. Discharged home on doxycycline and prednisone. Patient states she did take her doxycycline and prednisone today. Patient symptoms worsened this evening. Suspect asthma exacerbation. Differential includes viral illness versus developing pneumonia. NS bolus, IV Solu-Medrol, DuoNeb x 3 ordered for symptoms. Will repeat basic labs and chest x-ray. CBC with mild leukocytosis of 11.8. No anemia. BMP relatively unremarkable. Chest x-ray without pneumonia. On reevaluation, patient is still intermittently tachypneic and dyspneic. Still has diffuse expiratory wheezing with poor airflow and is tight. Patient not endorsing improvement in her shortness of breath. At this point in time patient will receive another albuterol treatment and will start magnesium for asthma exacerbation. Patient failing outpatient treatment. Patient will require admission to the hospital. She was updated of all the results and confirmed understanding of the plan. Patient discussed with the hospitalist who accepted admission. Respiratory panel ordered. Diagnostic: Interpreted by me/EM physician: Chest x-ray without pneumonia, effusion, cardiomegaly, pneumothorax Impression: 1. Asthma exacerbation failed outpatient treat 2. Viral syndrome Lab Data Labs: Laboratory Results - last 24 hr 10/16/24 21:26 WBC 11.8 H RBC 4.40 Hgb 14.3 Hct 42.5 MCV 96.6 MCH 32.5 H MCHC 33.6 RDW Std Deviation 46.8 H RDW Coeff of Emilia 13.1 Plt Count 252 MPV 9.8 Immature Gran % (Auto) 0.400 Neut % (Auto) 90.3 H Lymph % (Auto) 4.1 L [place] % (Auto) 5.1 Eos % (Auto) 0.0 Baso % (Auto) 0.1 Absolute Neuts (auto) 10.6 H Absolute Lymphs (auto) 0.48 L Nucleated RBC % 0 Sodium 138 Potassium 3.8 Chloride 105 Carbon Dioxide 27.0 Anion Gap 6 BUN 15 Creatinine 0.87 Estim Creat Clear Calc 98.33 Est GFR (MDRD) Af Amer 96 Est GFR (MDRD) Non-Af 80 BUN/Creatinine Ratio 17.3 Glucose 122 H Calcium 9.2 Discharge Plan Triage Chief Complaint: Asthma ED Provider: Fletcher Marie Dx/Rx/DC Orders Prescriptions: No Action albuterol sulfate 1 INHALER inhaler 1 - 2 puff inhalation Q4H PRN PRN (Reason: Wheezing) Qty: 1 0RF hydroxyzine HCl 25 mg tablet 25 mg PO TID PRN (Reason: anxiety) Qty: 20 0RF fluticasone propionate [Flovent Diskus] 100 mcg/actuation blister with device 1 inh inhalation BID doxycycline hyclate 100 mg capsule 100 mg PO BID 5 Days Qty: 10 0RF prednisone 50 mg tablet 50 mg PO DAILY 5 Days Qty: 5 0RF Primary Care Provider: Care Physician,No Primary Referrals: Care Physician,No Primary [Primary Care Provider] - Print Language: Luxembourgish
[2024-10-16 21:47] LABS: Anion Gap 6 (5-15); BUN 15 mg/dL (7-18); BUN/Creat Ratio 17.3 RATIO (10-20); Calcium,Total 9.2 mg/dL (8.5-10.1); Chloride 105 mmol/L (98-107); Creatinine, Serum 0.87 mg/dL (0.55-1.02); EST Glomerular Filtration Rate 80 mL/min (>60); Est Glom Filt Rate - Afr Amer 96 mL/min (>60); Estimated Creatinine Clearance 98.33 ml/min; Glucose 122 mg/dL (74-106); Potassium 3.8 mmol/L (3.5-5.1); Sodium Level 138 mmol/L (136-145)
--- NOTE | 2024-10-16 21:50 | RAD_ITS ---
INDICATION: Shortness of breath EXAMINATION/TECHNIQUE: X-RAY - XR Chest 2 Views COMPARISON: 10/16/2024. FINDINGS: The lungs are clear. The cardiomediastinal silhouette is unremarkable. Stable surgical changes of the left clavicle. No pleural effusion or pneumothorax. No acute osseous abnormalities. RAD/Chest PA and Lateral IMPRESSION: No acute radiographic abnormalities. Electronically Signed: Magdiel Chadwick MD at 23:10 EST ,
[2024-10-16] MEDS: Acetaminophen 325 MG Tablet 650 MG PO (22:14)
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
[2024-10-16] MEDS: Albuterol 2.5 MG/3 ML VIAL.NEB. INHALATION (22:26)
--- NOTE | 2024-10-16 22:36 | CPS ---
[2226] x1 Albuterol given to pt. Pre-tx: HR=92, RR=14 with inspiratory and expiratory wheezes. Post-tx: HR=93, RR=16 with clearer breath sounds and inspiratory and expiratory wheezes.
[2024-10-16] MEDS: Magnesium Sulfate 2 GM in 0.9% Normal Saline (100mL Bag) 100 ML IV (22:42)
[2024-10-17] VITALS: PULSE 89; RESP 15; O2SAT 94
[2024-10-17 01:17] VITALS: BMI 25.4
[2024-10-17] MEDS: hydrOXYzine PAM 25 MG Capsule PO (01:22)
[2024-10-17] MEDS: Doxycycline 100 MG in 0.9% Normal Saline (250mL Bag) 250 ML 250 MG IV (01:22)
[2024-10-17] MEDS: 0.9% Normal Saline (1000mL) 1,000 ML 70 ML IV (01:22)
[2024-10-17] MEDS: Acetaminophen 325 MG Tablet 650 MG PO (01:28)
[2024-10-17] MEDS: MELATONIN 3 MG TABLET PO (01:28)
[2024-10-17] MEDS: guaiFENesin 10 ML UDC (200MG/10ML) 20 ML PO (01:35)
[2024-10-17 01:39] VITALS: BP 130/76; PULSE 82; RESP 20; TEMP 36.6; O2SAT 97
[2024-10-17] MEDS: Albuterol 2.5 MG/3 ML VIAL.NEB. INHALATION (03:03)
[2024-10-17 03:05] VITALS: PULSE 98; RESP 18
--- NOTE | 2024-10-17 03:18 | NURSING ---
Pt very upset stating the hospital is not doing anything for her and breathing is not any better. Patient is 97% on room air and educated on all the medications and breathing treatments she was given. Patient stating when she finds a ride she will be leaving AMA.
== END 2024-10-17 03:50 | disposition left against medical advice (07) ==
LOC: ED 22:30 → MS3 10-17 03:17
PROVIDERS: Admitting Provider Internal Medicine; Emergency Provider Surgery; Visit Provider Internal Medicine
DX: J45.51 Severe persistent asthma with (acute) exacerbation (principal); J20.9 Acute bronchitis, unspecified; Z86.718 Personal history of other venous thrombosis and embolism; Z68.26 Body mass index [BMI] 26.0-26.9, adult; Z79.51 Long term (current) use of inhaled steroids; E66.3 Overweight; B34.9 Viral infection, unspecified; F17.210 Nicotine dependence, cigarettes, uncomplicated
CPT/HCPCS: 71046; 80048; 85025; 93005; 94640; 99284; 99285; A4216; J3475

== ENCOUNTER 2025-05-18 18:17 | Observation (INO) | payer MEDICAID, SELFPAY ==
[2025-05-18 18:18] VITALS: BP 137/90; PULSE 92; RESP 16; TEMP 37.2; O2SAT 100; BMI 24.9
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
--- OUTSIDE RECORDS SUMMARY | 2025-05-18 18:40 | XMS RPT_ITS | CCD ---
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 [facility] [place] RITTMAN (SWRLAB) [address] [place] [address] Hemoglobin (Bld) [Mass/Vol] 14.7 g/dL Normal Screen only [facility] Comment on above: Performed By: #### L [id number] #### Enrobing Machine Corder: CALE LEON ([id number]) [facility] [place] RIT[place] (SWRLAB) [address] [place] [address] OXYGEN (MM HG) IN VENOUS BLOOD 42.0 mm Hg Normal [facility] Comment on above: Performed By: #### L [id number] #### Enrobing Machine Corder: CALE LEON ([id number]) [facility] RODRIGUEZTMAN (SWRLAB) [address] [place] [address] OXYGEN SATURATION (%) IN VENOUS BLOOD 76.8 % Normal [facility] Comment on above: Performed By: #### L [id number] #### Enrobing Machine Corder: CALE LEON ([id number]) [facility] [place] (SWRLAB) [address] [place] [address] PCO2, HANS 39.8 mm Hg Low 40.0-55.0 [facility] Comment on above: Performed By: #### L [id number] #### Enrobing Machine Corder: CALE LEON ([id number]) [facility] [place] (SWRLAB) [address] [place] [address] PH VENOUS 7.413 Normal 7.330-7.430 [facility] Comment on above: Performed By: #### L [id number] #### Enrobing Machine Corder: CALE LEON ([id number]) [facility] RODRIGUEZ[facility] (SWRLAB) [address] [place] [address] SOURCE OF OXYGEN None (Room Air) Normal [facility] Comment on above: Performed By: #### L [id number] #### Enrobing Machine Corder: CALE LEON ([id number]) [facility] RODRIGUEZ[facility]AN (SWRLAB) [address] [place] [address] Consulton 04-15-2025 Consult - Attestation signed by Giancarlo Yi MD at 04/15/2025 1:50 PM I saw and evaluated the patient, participating in the hickman portions of the service. I reviewed the resident?s note. I agree with the resident?s findings and plan. Consult placed for asthma exacerbation Patient with history of poorly controlled asthma, recurrent multiple ed visits Not on any maintenance inhalers at home. Previous eosinophilia up to 1000 noted. Acute asthma exacerbation Poorly controlled asthma due to lack of maintenance inhalers Nicotine abuse --needs maintenance ics laba, pred taper, op pft, nebs. If continues to be symptomatic despite 3 months of ics laba may be candidate for biologic however poor compliance limits options and increases risk for readmits. OP follow up established, however patient signed out AMA Giancarlo Yi [place] [facility] [facility] [place] [address] [id number] 1990 Date of Admission - 04/14/2025 5:51 PM Date of Evaluation - 04/15/2025 Room - N4-462/N4-462 A Hospital Day - 0 Consulting - Perez Allison MD PCP - AISHWARYA IVORY MD Reason for Consult Asthma exacerbation History of Present Illness Carine Barba is a 35 y.o. female admitted for asthma exacerbation. Pt. Reports history of asthma since she was a child. She uses PRN nebs and albuterol at home as needed, is not on a daily asthma controller inhaler. She reports fatigue, malaise, chest tightness, wheezes, headache and rhinorrhea for the last 2-3 days. She endorses increase in chest tightness and wheezes that has not responded to PRN nebs or albuterol. She denies cough, chest pain. This is her 6th either admission or ER visit in the last year. She reports she does not have a lung doctor, and has not tried regular controller inhalers in the past. Denies family history of lung disease. She is unemployed, does smoke daily prior to the last few days. Patient has a past medical history of: - asthma, severe - tobacco use Active Hospital Problem List Problem List[1] Medical History Past Medical History Medical History[2] Past Surgical History Surgical History[3] Social History Social History Socioeconomic History Marital status: Single Spouse name: Not on file Number of children: Not on file Years of education: Not on file Highest education level: Not on file Occupational History Not on file Tobacco Use Smoking status: Every Day Current packs/day: 0.25 Types: Cigarettes Smokeless tobacco: Current Vaping Use Vaping status: Never Used Substance and Sexual Activity Alcohol use: Yes Drug use: Yes Types: Marijuana Sexual activity: Not on file Other Topics Concern Not on file Social History Narrative Not on file Social Drivers of Health Financial Resource Strain: Not on file Food Insecurity: No Food Insecurity (04/15/2025) Hunger Vital Sign Worried About Running Out of Food in the Last Year: Never true Ran Out of Food in the Last Year: Never true Transportation Needs: No Transportation Needs (04/15/2025) PRAPARE - Transportation Lack of Transportation (Medical): No Lack of Transportation (Non-Medical): No Physical Activity: Not on file Stress: Not on file Social Connections: Not on file Intimate Partner Violence: Not At Risk (04/15/2025) Humiliation, Afraid, Rape, and Kick questionnaire Fear of Current or Ex-Partner: No Emotionally Abused: No Physically Abused: No Sexually Abused: No Housing Stability: Low Risk (04/15/2025) Housing Stability Vital Sign Unable to Pay for Housing in the Last Year: No Number of Times Moved in the Last Year: 0 Homeless in the Last Year: No Family History Family History[4] Immunization History There is no immunization history on file for this patient. Medications Current Medications Scheduled Meds[5] PRN Mediations PRN Meds[6] IV Drips/Infusions Continuous Meds[7] Home Medications Current Outpatient Medications Medication Instructions albuterol 108 (90 Base) MCG/ACT inhaler 2 puffs, Inhalation, Every 4 hours PRN albuterol 2.5 mg, Nebulization, Every 6 hours PRN Allergies Allergies[8] Review of Systems General Denies any fever or chills, endorses fatigue and malaise HEENT reports headache and rhinorrhea. Resp See HPI Cardiac Denies any chest pain, palpitations, claudication or edema GI Denies any melena, hematochezia, hematemesis or pyrosis Denies any frequency, urgency, hesitancy or incontinence Heme Denies bruising or bleeding easily Neuro Denies any focal motor or sensory deficits Psychiatric reports anxiety anxiety, denies depression, suicidal ideation Skin Denies rashes, itching, open sores Vitals height is 5' 6" (1.6 (more content not included)... Normal [facility] ECG 12-LEADon 04-15-2025 ECG 12-LEAD IMPRESSION: Sinus tachycardia Borderline T wave abnormalities Compared to ECG 07/05/20 No significant change Electronically Signed On 04-15-2025 01:28:20 EDT by Vincent Huitron Normal [facility] Laboratory - Chemistry and C hemistry - challengeon 04-15-2025 Procalcitonin [Mass/Vol] 0.02 ng/mL NINF - 0.07 ng/mL [facility] Laboratory - Chemistry and C hemistry - challengeOrdered By: Mechelle Burnett on 04-15-2025 Base excess Calc (BldV) [Moles/Vol] 0.3 mmol/L -3.0 - 3.0 mmol/L [facility] CO2 (BldV) [Partial pressure] 39.8 mm[Hg] Low [facility] CO2 [Moles/Vol] 26.1 mmol/L 24.0 - 28.0 mmol/L [facility] HCO3 (Bld) [Moles/Vol] 24.8 mmol/L 23.0 - 27.0 mmol/L [facility] Oxygen (BldV) [Partial pressure] 42 mm[Hg] mm Hg [facility] pH (BldV) 7.413 [pH] 7.330 - 7.430 [facility] Laboratory - Hematology and Cell countsOrdered By: Mechelle Burnett on 04-15-2025 Hemoglobin (Bld) [Mass/Vol] 14.7 g/dL 7.0 g/dl [facility] No Panel Informationon 04-15 P [place] 81 degrees [facility] HI Interval 146 ms [facility] QRS [place] 77 degrees [facility] QRSD Interval 90 ms [facility] QT Interval 347 ms [facility] QTC Interval 449 ms [facility] T Wave [place] 15 degrees [facility] Sinus tachycardia Borderline T wave abnormalities Compared to ECG 07/05/20 No significant change Electronically Signed On 04-15-2025 01:28:20 EDT by Vincent Huitron CV Vincent Novak D O - 04/15/2025 IMPRESSION: Sinus tachycardia Borderline T wave abnormalities Compared to ECG 07/05/20 No significant change Electronically Signed On 04-15-2025 01:28:20 EDT by Vincent Huitron [facility] No Panel InformationOrdered By: Mechelle Burnett on 04-15-2025 Amount Of Oxygen [facility] alth Interpretation and review of laboratory results Abnormal [facility] Source Of Oxygen None (Room Air) [facility] Assessment of oxygenation is best done with an arterial blood gas determination. Reference ranges for pO2, bicarbonate, and base excess are for mixed venous blood. Specimens drawn from a peripheral vein will often have higher values. [facility] Nursing Noteon 04-15-2025 Nursing Note Patient stated she wants to be discharged. Patient stated " we are not doing anything for her" patient educated on iv solumedrol, antibiotics, and breathing treatments. and Dr. Quinton gomez was notified via secure chat. Patient not to be discharged. Patient electing to leave [place]. AMA form signed. Patient educated on why she should stay. Prescriptions sent to [facility] in [place] and patient notified of follow up with Tal Davila CNP in two days. Wrote out their office info and supplied to patient. Iv removed at this time, no complications noted. 1550- patient leaving [place] at this time Normal [facility] Nursing Note Patient took telemetry and pulse oximeter off and stated "My head is pounding and I ripped everything off." MD notified. Normal [facility] Nursing Note Fluids paused to promote rest in patient. Patient refusing to keep arm straight, causing fluids to alarm every 1-2 minutes. Patient educated on keeping arm straight 5x. MD notified. Normal [facility] Nursing Note Patient calls RN to room and states "my head is pounding." RN gives patient 650mg of tylenol. Patient begins to get emotional and desats to 80% on RA. Patient does not want to wear oxygen, patient educated numerous times on the importance of O2. Patient then stated I want to go home, nothing is working." Patient educated on the importance of her staying. Patient did not respond and laid back down in the bed. notified. Patient now resting comfortably in bed and is 97% on RA. Normal [facility] Nursing Note Morning labs deferre d to 04/16 because labs just drawn at [place] ED at 1999 on 04/14. agreeable. Normal [facility] Procalcitonin [Mass/Vol]on 0 04-15-2025 Interpretation and review of laboratory results Normal [facility] PCT <0.50 = Low risk of severe sepsis and/or septic shock. PCT >2.00 = High risk of severe sepsis and/or septic shock. [facility] Progress Noteon 04-15-2025 Progress Note Carine is a 35-year-old female with history of anxiety, asthma, multiple fractures before, history of blood clots presented to emergency room with shortness of breath. She initially presented [place] ED, found to be asthma exacerbation, stabilized on 2 L of nasal cannula, patient has history of smoking, has not used smoking for several days. Patient transferred to [facility]. Admitted for further evaluation and treatment. Respiratory pathogen panel negative including COVID Chest x-ray shows no radiographic acute cardiopulmonary process. Consulted pulmonology, seen the patient, recommends, started on Dulera, nebulization, IV Solu-Medrol, can likely DC antibiotics as respiratory panel negative, no signs or symptoms of concomitant CAP appreciated. Patient is seen and examined She is sitting in her bed, complaining of headache, states Tylenol and Toradol not working, ordered one-time dose of oxycodone, patient also complaining of some anxiety, denies using any medication for anxiety before, Vistaril started. Rest as per H&P Total time spent: 15.5 minutes Normal [facility] Progress Note Interim note: 0 644 I was called to see the patient after she was admitted today with acute exacerbation of bronchial asthma. She continues to be extremely anxious the Ativan that was prescribed seems to not helping her anxiety. She also was complaining of a headache. Hemodynamically she stable she continues to have expiratory wheezes however much less than on admission. She has better aeration in both lung garcía bilaterally. Heart rhythm regular and rapid S1/S2 heart sounds are distant. Extremities no edema. 1. Acute exacerbation of bronchial asthma. 2. Stress headache 3. Insomnia Plan: 1. I will prescribe some analgesics for her headache in the meantime we will place on Seroquel 50 mg p.o. every morning to help calm her anxiety and maybe help her get some sleep in the meantime she can continue to use the Ativan as needed. Jose L Foote MD Normal [facility] Respiratory pathogens DNA an d RNA panel DAJA+non-probe (Nph)on 04-15-2025 Adenovirus Not detected Not Detected [facility] B. pertussis DNA DAJA+probe Ql (Unsp spec) Not detected Not Detected [facility] Bordetella parapertussis Not detected Not Detected [facility] Chlamydia pneumoniae Not detected Not Detected [facility] Coronavirus 229E Not detected Not Detected [facility] Coronavirus HKU1 Not detected Not Detected [facility] Coronavirus NL63 Not detected Not Detected [facility] Coronavirus OC43 Not detected Not Detected [facility] FLUAV RNA DAJA+non-probe Ql (Nph) Not detected Not Detected [facility] FLUBV RNA DAJA+non-probe Ql (Nph) Not detected Not Detected [facility] Human Metapneumovirus Not detected Not Detected [facility] Human Rhinovirus/Enterovirus Not detected Not Detected [facility] Interpretation and review of laboratory results Normal [facility] Mycoplasma pneumoniae Not detected Not Detected [facility] Parainfluenza 1 Not detected Not Detected [facility] Parainfluenza 2 Not detected Not Detected [facility] Parainfluenza 3 Not detected Not Detected [facility] Parainfluenza 4 Not detected Not Detected [facility] Respiratory Syncytial Virus Not detected Not Detected [facility] SARS-CoV-2 (COVID-19) RNA DAJA+non-probe Ql (Nph) Not detected Not Detected [facility] Methodology: Multiplex PCR [facility] Vital signson 04-15-2025 Heart rate 100 /min bpm [facility] Vital signsOrdered By: Antonia Burnett on 04-15-2025 Oxygen saturation in Venous blood 76.8 % [facility] 30on 04-14-2025 30 Called by [facility] . Discussed with ED attending. 35 yo with hx of severe asthma and recurrent exacerbation, periph eos, on albuterol monotherapy, current smoker. presented to ed 2 days shortness of breath. Diffuse wheezing. Sp nebs. Now on NIV, with difficulty tolerating . Hx of dvt/pe. Check dimer In setting of severe signs and symptoms and reported respiratory distress , ok for ICU admission. Prior hx of high risk asthma requiring intubation. Check test, abg. Pneumonia / viral pcr. Contue sebs. / steroids , continue bipap. Admit to t3 Normal [facility] BASIC METABOLIC PANELon 06-11 25-2024 Anion gap [Moles/Vol] 12 mmol/L Normal 3-13 [facility] Comment on above: Performed By: #### L [id number] #### Enrobing Machine Corder: CALE LEON ([id number]) [facility] [place] RITTMAN (SWRLAB) [address] [place] [address] [place] Calcium [Mass/Vol] 9.0 mg/dL Normal 8.4-10.2 [facility] Comment on above: Performed By: #### L [id number] #### Enrobing Machine Corder: CALE LEON ([id number]) [facility] ZORAIDA RITTMAN (SWRLAB) [address] [place] [address] [place] Chloride [Moles/Vol] 104 mmol/L Normal 98-107 [facility] Comment on above: Performed By: #### L [id number] #### Enrobing Machine Corder: CALE LEON ([id number]) [facility] BYRDZORAIDA RITTMAN (SWRLAB) [address] [place] [address] [place] CO2 [Moles/Vol] 24 mmol/L Normal 22-29 [facility] Comment on above: Performed By: #### L [id number] #### Enrobing Machine Corder: CALE LEON ([id number]) [facility] ZORAIDA RITTMAN (SWRLAB) [address] [place] [address] [place] Creatinine [Mass/Vol] 0.67 mg/dL Normal 0.57-1.11 [facility] Comment on above: Performed By: #### L [id number] #### Enrobing Machine Corder: CALE LEON ([id number]) [facility] [place] RITTM[place] (SWRLAB) [address] GLOMERULAR FILTRATION RATE ML/MIN/1.73 SQ M.PREDICTED >90.0 Normal >60.0 [facility] Comment on above: Result Comment: Calc ulation based on the Chronic Kidney Disease Epidemiology Collaboration (CKD-EPI) equation refit without adjustment for race Performed By: #### L [id number] #### Enrobing Machine Corder: CALE LEON ([id number]) [facility] [place] RITTMAN (SWRLAB) [address] [place] [address] Glucose [Mass/Vol] 119 mg/dL High 74-100 [facility] Comment on above: Performed By: #### L [id number] #### Enrobing Machine Corder: CALE LEON ([id number]) [facility]ITTM[facility] (SWRLAB) [address] [place] [address] Potassium [Moles/Vol] 3.9 mmol/L Normal 3.5-5.1 [facility] Comment on above: Result Comment: [facility] potassium values may be up to 0.5 mmol/L lower than serum values. Performed By: #### L [id number] #### Enrobing Machine Corder: CALE LEON ([id number]) [facility] [place] RITTM[facility] (SWRLAB) [address] [place] [address] Sodium [Moles/Vol] 140 mmol/L Normal 136-145 [facility] Comment on above: Performed By: #### L [id number] #### Enrobing Machine Corder: CALE LEON ([id number]) [facility] [place] RITTMAN (SWRLAB) [address] [place] [address] [place] Urea nitrogen [Mass/Vol] 9 mg/dL Normal 8-21 [facility] Comment on above: Performed By: #### L [id number] #### Enrobing Machine Corder: CALE LEON ([id number]) [facility] [place] RITTM[facility] (SWRLAB) [address] [place] [address] [place] Basic metabolic 1998 panelon 04-14-2025 Anion gap [Moles/Vol] 12 mmol/L 3 - 13 mmol/L [facility] Calcium [Mass/Vol] 9 mg/dL 8.4 - 10. 2 mg/dL [facility] Chloride [Moles/Vol] 104 mmol/L 98 - 10 7 mmol/L [facility] CO2 [Moles/Vol] 24 mmol/L 22 - 29 mmol/L [facility] Creatinine [Mass/Vol] 0.67 mg/dL 0.57 - 1.11 mg/dL [facility] GFR/1.73 sq M.predicted (S/P/Bld) [Vol rate/Area] - PINF [facility] Comment on above: Calculation based on the Chronic Kidney Disease Epidemiology Collaboration (CKD-EPI) equation refit without adjustment for race Glucose [Mass/Vol] 119 mg/dL High 74 - 100 mg/dL [facility] Interpretation and review of laboratory results Abnormal [facility] Potassium [Moles/Vol] 3.9 mmol/L 3.5 - 5.1 mmol/L [facility] Comment on above: Plasma potassium phillip ues may be up to 0.5 mmol/L lower than serum values. Sodium [Moles/Vol] 140 mmol/L 136 - 145 mmol/L [facility] Urea nitrogen [Mass/Vol] 9 mg/dL 8 - 21 mg/dL [facility] CBC W Auto Differential pane l (Bld)on 04-14-2025 Basophils (Bld) [#/Vol] 0 10*3/uL 0.0 - 0.2 10*3/uL [facility] Basophils/100 WBC (Bld) 0.2 % 0.0 - 2.0 % [facility] Eosinophils (Bld) [#/Vol] 0.3 10*3/uL 0.0 - 0.5 10*3/uL [facility] Eosinophils/100 WBC (Bld) 2.6 % 0.0 - 6.0 % [facility] Erythrocyte distribution width (RBC) [Ratio] 12.7 % 11.5 - 15.0 % [facility] Hematocrit (Bld) [Volume fraction] 41 % 35.0 - 47.0 % [facility] Hemoglobin (Bld) [Mass/Vol] 14.2 g/dL 11.7 - 16.0 g/dL [facility] Immature granulocytes (Bld) [#/Vol] 0.1 10*3/uL High NINF - 0.1 10*3/uL [facility] [place] Immature granulocytes/100 WBC (Bld) 0.4 % 0.0 - 2.0 % [facility] Interpretation and review of laboratory results Abnormal [facility] Lymphocytes (Bld) [#/Vol] 1.1 10*3/uL 1.0 - 4.3 10*3/uL [facility] Lymphocytes/100 WBC (Bld) 8.5 % Low 15.0 - 45.0 % [facility] MCH (RBC) [Entitic mass] 33.2 pg 26.0 - 34.0 pg [facility] MCHC (RBC) [Mass/Vol] 34.6 % 30.5 - 36.0 % [facility] MCV (RBC) [Entitic vol] 95.8 fL 77.0 - 99.0 fL [facility] Monocytes (Bld) [#/Vol] 0.6 10*3/uL 0.0 - 0.9 10*3/uL [facility] Monocytes/100 WBC (Bld) 4.3 % Low 5.0 - 13.0 % [facility] Neutrophils (Bld) [#/Vol] 10.9 10*3/uL High 1.8 - 7.5 10*3/uL [facility] Neutrophils/100 WBC (Bld) 84 % High 38.0 - 82.0 % [facility] Nucleated RBC/100 WBC (Bld) [Ratio] 0 % [facility] Platelet mean volume (Bld) [Entitic vol] 9.9 fL 9.0 - 12.7 fL [facility] Comment on above: MPV is a calculated measurement using platelet volume ratio Platelets (Bld) [#/Vol] 230 10*3/uL 140 - 440 10*3/uL [facility] RBC (Bld) [#/Vol] 4.28 10*6/uL 3.80 - 5.2 0 10*6/uL [facility] WBC (Bld) [#/Vol] 13 10*3/uL High 3.6 - 10.7 10*3/uL [facility] CBC WITH AUTO DIFFERENTIALon 04-14-2025 Basophils (Bld) [#/Vol] 0.0 10*3/uL Normal 0.0-0.2 [facility] Comment on above: Performed By: #### L [id number] #### Enrobing Machine Corder: CALE LEON ([id number]) [facility] PALMER RITTMAN (SWRLAB) [address] [place] [address] [place] Basophils/100 WBC (Bld) 0.2 % Normal 0.0-2.0 [facility] Comment on above: Performed By: #### L [id number] #### Enrobing Machine Corder: CALE LEON ([id number]) [facility] [place] R[place]TM[place] (SWRLAB) [address] [place] [address] Eosinophils (Bld) [#/Vol] 0.3 10*3/uL Normal 0.0-0.5 [facility] Comment on above: Performed By: #### L [id number] #### Enrobing Machine Corder: CALE LEON ([id number]) [facility] [place] [facility]TM[place] (SWRLAB) [address] [place] [address] [place] Eosinophils/100 WBC (Bld) 2.6 % Normal 0.0-6.0 [facility] Comment on above: Performed By: #### L [id number] #### Enrobing Machine Corder: CALE LEON ([id number]) [facility] [facility] (SWRLAB) [address] [place] [address] Erythrocyte distribution width (RBC) [Ratio] 12.7 % Normal 11.5-15.0 [facility] Comment on above: Performed By: #### L [id number] #### Enrobing Machine Corder: CALE LEON ([id number]) [facility] [facility] (SWRLAB) [address] [place] [address] Hematocrit (Bld) [Volume fraction] 41.0 % Normal 35.0-47.0 [facility] Comment on above: Performed By: #### L [id number] #### [employer]robing Machine Corder: CALE LEON ([id number]) CARLA PALMER RITTMAN (SWRLAB) [address] [place] [address] Hemoglobin (Bld) [Mass/Vol] 14.2 g/dL Normal 11.7-16.0 [facility] Comment on above: Performed By: #### L [id number] #### Enrobing Machine Corder: CALE LEON ([id number]) [facility] (SWRL[facility]) [address] [place] [address] IMMATURE GRANS % 0.4 % Normal 0.0-2.0 [facility] Comment on above: Performed By: #### L [id number] #### Enrobing Machine Corder: CALE LEON ([id number]) [facility] ZORAIDA RITTMAN (SWRLAB) [address] [place] [address] IMMATURE GRANS ABSOLUTE 0.1 10*3/uL High <0.1 [facility] Comment on above: Performed By: #### L [id number] #### Enrobing Machine Corder: CALE LEON ([id number]) [facility] BYRDZORAIDA RITTMAN (SWRLAB) [address] [place] [address] Lymphocytes (Bld) [#/Vol] 1.1 10*3/uL Normal 1.0-4.3 [facility] Comment on above: Performed By: #### L [id number] #### Enrobing Machine Corder: CALE LEON ([id number]) [facility] BYRDZORAIDA RITTMAN (SWRLAB) [address] [place] [address] Lymphocytes/100 WBC (Bld) 8.5 % Low 15.0-45.0 [facility] Comment on above: Performed By: #### L [id number] #### Enrobing Machine Corder: CALE LEON ([id number]) [facility] BYRDZORAIDA RITTMAN (SWRLAB) [address] [place] [address] MCH (RBC) [Entitic mass] 33.2 pg Normal 26.0-34.0 [facility] Comment on above: Performed By: #### L [id number] #### Enrobing Machine Corder: CALE LEON ([id number]) [facility] BYRDZORAIDA RITTMAN (SWRLAB) [address] MCHC 34.6 % Normal 30.5-36.0 [facility] Comment on above: Performed By: #### L [id number] #### Enrobing Machine Corder: CALE LEON ([id number]) CARLA PALMER RITTMAN (SWRLAB) [address] MCV (RBC) [Entitic vol] 95.8 fL Normal 77.0-99.0 [facility] Comment on above: Performed By: #### L [id number] #### Enrobing Machine Corder: CALE LEON ([id number]) [facility] PAL[facility] (SWRLAB) [address] [place] [address] Monocytes (Bld) [#/Vol] 0.6 10*3/uL Normal 0.0-0.9 [facility] Comment on above: Performed By: #### L [id number] #### Enrobing Machine Corder: CALE LEON ([id number]) [facility] PALMER [facility] (SWRLAB) [address] [place] [address] [place] Monocytes/100 WBC (Bld) 4.3 % Low 5.0-13.0 [facility] Comment on above: Performed By: #### L [id number] #### Enrobing Machine Corder: CALE LEON ([id number]) [facility] PAL[facility]AN (SWRLAB) [address] [place] [address] [place] NEUTROPHILS ABSOLUTE 10.9 10*3/uL High 1.8-7.5 [facility] Comment on above: Performed By: #### L [id number] #### Enrobing Machine Corder: CALE LEON ([id number]) [facility] PAL[facility] (SWRLAB) [address] [place] [address] [place] Neutrophils/100 WBC (Bld) 84.0 % High 38.0-82.0 [facility] Comment on above: Performed By: #### L [id number] #### Enrobing Machine Corder: CALE LEON ([id number]) [facility] ZORAIDA [facility]TMAN (SWRLAB) [facility] [place] [address] [place] NRBC 0.0 /100 WBCs Normal 0.0-2.0 [facility] Comment on above: Performed By: #### L [id number] #### Enrobing Machine Corder: CALE LEON ([id number]) [facility] PALMER RITTMAN (SWRLAB) [address] [place] [address] Platelet mean volume (Bld) [Entitic vol] 9.9 fL Normal 9.0-12.7 [facility] Comment on above: Result Comment: MPV is a calculated measurement using platelet volume ratio Performed By: #### L [id number] #### Enrobing Machine Corder: CALE LEON ([id number]) [facility] PALMER RITTMAN (SWRLAB) [address] [place] [address] Platelets (Bld) [#/Vol] 230 10*3/uL Normal 140-440 [facility] Comment on above: Performed By: #### L [id number] #### Enrobing Machine Corder: CALE LEON ([id number]) [facility] PALMER RITTMAN (SWRLAB) [address] [place] [address] [place] RBC (Bld) [#/Vol] 4.28 10*6/uL Normal 3.80-5.20 [facility] Comment on above: Performed By: #### L [id number] #### Enrobing Machine Corder: CALE LEON ([id number]) [facility] PALMER RITTMAN (SWRLAB) [address] [place] [address] WBC (Bld) [#/Vol] 13.0 10*3/uL High 3.6-10.7 [facility] Comment on above: Performed By: #### L [id number] #### Enrobing Machine Corder: CALE LEON ([id number]) [facility] PALMER [facility] (SWRLAB) [address] [place] [address] [place] D-DIMER,QUANTITATIVEon 04-14 D-DIMER, INNOVANCE 0.31 mg/L Normal <0.50 [facility] Comment on above: Result Comment: MAI Ho COMMENTS: Innovance D-Dimer values of <0.50 mg/L FEU can be used in combination with a pre-test probability model (e.g. Well's) to exclude pulmonary embolism (PE) disease, as well as an aid in the diagnosis of deep vein thrombosis (DVT). Performed By: #### L [id number] ####Enrobing Machine Corder: CALE LEON ([id number])[facility] HOBBSZORAIDA RAVEN (SWRLAB)[address] [place] [address] ED Nursing Noteon 04-14-2025 ED Nursing Note Pt reports slight improvement after breathing treatment but has continued wheezing. Normal [facility] ED Nursing Note Pt to room 9 with c/ o shortness of breath and wheezing x 2 days. Pt reports she has a history of asthma with no improvement with use of inhalers. Normal [facility] ED Provider Noteon ED Provider Note Emergency Department Encounter [facility] Patient: Carine Barba : 1990 Date of Evaluation: 04/14/2025 ED Provider: Vincent Huitron DO Chief Complaint Chief Complaint Patient presents with Shortness of Breath MOHEGAN Carine Barba is a 35 y.o. female who presents to the emergency department complaining of shortness of breath. Patient explains that she has a history of asthma. She is a smoker. Over the last 2 days she has been having worsening shortness of breath. She has been wheezing. She has been using her albuterol inhaler with no improvement in symptoms. She comes to the emergency department for evaluation. She does have a history of anxiety. Has had some chest discomfort associated with the breathing issues. Additional history obtained from : n/a Barriers to obtaining history from patient: n/a ROS: Review of Systems completed as follows: (Bold = positive, Not bold = negative) GENERAL: fevers, chills, malaise ENT: runny nose, congestion, sore throat, ear pain NEURO: weakness, numbness of tingling, headache CARDIOVASCULAR: chest pain, syncope PULMONARY: shortness of breath, cough, wheezing GASTROINTESTINAL: nausea, vomiting, abdominal pain, diarrhea, constipation MUSCULOSKELETAL: pain SKIN: rash, lesions, wound Past History Medical History[1] Surgical History[2] Social History[3] I have reviewed the history above as provided by nursing notes. Medications/Allergies Current Discharge Medication List CONTINUE these medications which have NOT CHANGED Details albuterol (2.5 MG/3ML) 0.083% nebulizer solution Take 3 mL (2.5 mg) by nebulization every 6 hours as needed for wheezing. Qty: 360 mL, Refills: 0 albuterol 108 (90 Base) MCG/ACT inhaler Inhale 2 puffs every 4 hours as needed for wheezing. Qty: 18 g, Refills: 0 Allergies[4] I have reviewed the history above as provided by nursing notes. Physical Exam ED Triage Vitals Temp Heart Rate Resp BP 04/14/25 1754 04/14/25 1754 04/14/25 1754 04/14/25 175 36.8 ?C (98.3 ?F) 89 22 138/72 SpO2 Temp Source Heart Rate Source Patient Position 04/14/25 1754 04/14/25 1754 04/15/25 0043 04/14/25 175 93 % Skin Monitor Lying BP Location FiO2 (%) 04/14/25 1754 -- Left arm GENERAL: The patient appears nourished and normally developed. Vital signs as documented. EYES: PERRL. No scleral icterus or orbital trauma noted. HEENT: Mucous membranes moist. Nares patent without copious rhinorrhea. LUNGS: Expiratory wheezing with occasional faint inspiratory wheezing. No increased work of breathing. No accessory muscle use. CARDIAC: Rhythm is regular. No murmur appreciated ABDOMEN: Nontender, soft, with no obvious masses, and no peritoneal signs. EXTREMITIES: Non edematous, with no obvious deformities. SKIN: Good color, with no significant rashes. No pallor. NEURO: No obvious neurological deficits, normal sensation and strength bilaterally. Diagnostics Labs: Results for orders placed or performed during the hospital encounter of 04/14/25 CBC auto differential Collection Time: 04/14/25 8:43 PM Result Value Ref Range Auto WBC 13.0 (H) 3.6 - 10.7 10*3/uL RBC 4.28 3.80 - 5.20 10*6/uL Hemoglobin 14.2 11.7 - 16.0 g/dL Hematocrit 41.0 35.0 - 47.0 % MCV 95.8 77.0 - 99.0 fL MCH 33.2 26.0 - 34.0 pg MCHC 34.6 30.5 - 36.0 % RDW 12.7 11.5 - 15.0 % Platelets 230 140 - 440 10*3/uL MPV 9.9 9.0 - 12.7 fL nRBC 0.0 0.0 - 2.0 /100 WBCs Neutrophils Relative 84.0 (H) 38.0 - 82.0 % Lymphocytes Relative 8.5 (L) 15.0 - 45.0 % Monocytes Relative 4.3 (L) 5.0 - 13.0 % Eosinophils Relative 2.6 0.0 - 6.0 % Basophils Relative 0.2 0.0 - 2.0 % Immature Grans % 0.4 0.0 - 2.0 % Neutrophils Absolute 10.9 (H) 1.8 - 7.5 10*3/uL Lymphocytes Absolute 1.1 1.0 - 4.3 10*3/uL Monocytes Absolute 0.6 0.0 - 0.9 10*3/uL Eosinophils Absolute 0.3 0.0 - 0.5 10*3/uL Basophils Absolute 0.0 0.0 - 0.2 10*3/uL Immature Grans Absolute 0.1 (H) <0.1 10*3/uL Basic metabolic panel Collection Time: 04/14/25 8:43 PM Result Value Ref Range SODIUM 140 136 - 145 mmol/L POTASSIUM 3.9 3.5 - 5.1 mmol/L CHLORIDE 104 98 - 107 mmol/L CARBON DIOXIDE 24 22 - 29 mmol/L UREA NITROGEN 9 8 - 21 mg/dL CREATININE 0.67 0.57 - 1.11 mg/dL GLUCOSE 119 (H) 74 - 100 mg/dL CALCIUM 9.0 8.4 - 10.2 mg/dL ANION GAP 12 3 - 13 mmol/L eGFR >90.0 >60.0 mL/min/1.73m*2 Serial Troponin, High Sensitivity Collection Time: 04/14/25 8:43 PM Result Value Ref Range Troponin HS Serial Baseline <3 <=14 ng/L hCG, quantitative Collection Time: 04/14/25 8:43 PM Result Value Ref Range HCG QUANTITATIVE <2.5 Females <5 mIU/mL ECG 12 lead Collection Time: 04/14/25 8:45 PM Result Value Ref Range Heart Rate 100 bpm QRSD Interval 90 ms QT Interval 347 ms QTC Interval 449 ms P [place] 81 degrees QRS [place] 77 degrees T Wave [place] 15 degrees HI Interval 146 ms D-dimer, quantitative Collection Time: 04/14/25 8:56 PM (more content not included)... Normal [facility] Fibrin D-dimer FEU (PPP) [Ma ss/Vol]on 04-14-2025 Interpretation and review of laboratory results Normal [facility] D-Dimer values of <0.50 mg/L FEU can be used in combination with a pre-test probability model (e.g. Well's) to exclude pulmonary embolism (PE) disease, as well as an aid in the diagnosis of deep vein thrombosis (DVT). 10-20 [employer] [place] HCG QUANTITATIVE BLOODon HCG QUANTITATIVE <2.5 Normal Females <5 [facility] Comment on above: Result Comment: MAI Ho COMMENTS: Values in should double every 2 to 3 days for the first 6 weeks. Elevated concentrations of human chorionic gonadotropin (hCG) measured in the first trimester of are observed in normal , but may serve as an indication of chorionic carcinoma, hydatiform mole, or multiple . Decreasing hCG concentrations indicate threatened or missed , recent termination of , ectopic , gestosis or intrauterine . Rhina- and postmenopausal females may have detectable hCG concentrations (< or = to 14 mIU/mL) due to pituitary production of hCG. Serum follicle-stimulating hormone measurement may aid in ruling-out in this population. Cutoffs of greater than 20 to 45 mIU/mL have been suggested and are method dependent. False-elevations (called phantom human chorionic gonadotropin: hCG) may occur with patients who have human antianimal or heterophilic antibodies. Some specimens may not dilute linearly due to abnormal forms of hCG. Elevated hCG concentrations not associated with are found in patients with other diseases such as tumors of the germ cells, ovaries, bladder, pancreas, stomach, lungs, and liver. This test is not intended to detect or monitor tumors or gestational trophoblastic disease. Performed By: #### L [id number], [id number] ####Enrobing Machine Corder: CALE LEON ([id number])[facility] ZORAIDA CARBAJAL (SWRLAB)[address] [place] [address] HIGH SENSITIVITY TROPONIN, S ERIAL BASELINEon 04-14-2025 TROPONIN HS SERIAL BASELINE <3 Normal <=14 [facility] Comment on above: Result Comment: In i ndividuals presenting with symptoms > 2h, a baseline troponin <= 5 ng/L suggests acute cardiac injury is unlikely and further serial testing is generally not indicated. Performed By: #### L [id number] #### Enrobing Machine Corder: CALE LEON ([id number]) [facility] (SWRLAB) [address] [place] [address] HIGH SENSITIVITY TROPONIN, S ERIAL, SECOND TESTon 04-14-2025 2H TROPONIN HS (SERIAL 2ND TROPONIN) <3 Normal <=14 [facility] Comment on above: Result Comment: 2h t roponin (2nd troponin) samples collected between 1h 40 min and 2h and 20 min of the baseline collection time can be utilized to interpret delta troponins as per [facility] algorithms. Samples collected outside this timeframe need to be interpreted clinically. Delta value was unable to be calculated as both baseline and serial troponin tests were below the level of quantitation. As both baseline and 2h troponin values are below the level of quantitation, acute cardiac injury is unlikely. Performed By: #### L [id number] #### Enrobing Machine Corder: CALE LEON ([id number]) [facility] [employer] (SWRLAB) [address] [place] [address] Laboratory - Chemistry and C hemistry - challengeon 04-14-2025 HCG.beta subunit Qn Females <5 mIU/mL [facility] Laboratory - Coagulationon 0 04-14-2025 Fibrin D-dimer FEU (PPP) [Mass/Vol] 0.31 mg/L NINF - 0.50 mg/L [facility] Laboratory - Microbiology an d Antimicrobial susceptibilityon 04-14-2025 FLUAV RNA DAJA+probe Ql (Resp) Not detected Not Detected [facility] FLUBV RNA DAJA+probe Ql (Resp) Not detected Not Detected [facility] RSV RNA DAJA+probe Ql (Resp) Not detected Not Detected [facility] SARS-CoV-2 (COVID-19) RNA DAJA+probe Ql (Resp) Not detected Not Detected [facility] SARS-CoV-2 (COVID-19) RNA DAJA+probe Ql (Unsp spec) Methodology: real-time, RT-PCR The SARS-CoV-2, Flu A/B, and RSV Combo assay is intended for in vitro diagnostic use under the FDA Emergency Use Authorization (EUA). This test has not been FDA cleared or approved. In compliance with this authorization, please visit www.fda.gov/media/283 020/download or www.fda.gov/media/998 763/download to access the applicable information sheets. 10-20 [employer] [place] No Panel Informationon 04-14 2h Troponin HS (Serial 2nd Troponin) ng/L NINF - 14 ng/L [facility] Comment on above: 2h troponin (2nd tro ponin) samples collected between 1h 40 min and 2h and 20 min of the baseline collection time can be utilized to interpret delta troponins as per [facility] algorithms. Samples collected outside this timeframe need to be interpreted clinically. Delta value was unable to be calculated as both baseline and serial troponin tests were below the level of quantitation. As both baseline and 2h troponin values are below the level of quantitation, acute cardiac injury is unlikely. Interpretation and review of laboratory results Normal [facility] Values in should double every 2 to 3 days for the first 6 weeks. Elevated concentrations of human chorionic gonadotropin (hCG) measured in the first trimester of are observed in normal , but may serve as an indication of chorionic carcinoma, hydatiform mole, or multiple . Decreasing hCG concentrations indicate threatened or missed , recent termination of , ectopic , gestosis or intrauterine . Rhina- and postmenopausal females may have detectable hCG concentrations (< or = to 14 mIU/mL) due to pituitary production of hCG. Serum follicle-stimulating hormone measurement may aid in ruling-out in this population. Cutoffs of greater than 20 to 45 mIU/mL have been suggested and are method dependent. False-elevations (called phantom human chorionic gonadotropin: hCG) may occur with patients who have human antianimal or heterophilic antibodies. Some specimens may not dilute linearly due to abnormal forms of hCG. Elevated hCG concentrations not associated with are found in patients with other diseases such as tumors of the germ cells, ovaries, bladder, pancreas, stomach, lungs, and liver. This test is not intended to detect or monitor tumors or gestational trophoblastic disease. [facility] Interpretation and review of laboratory results Normal [facility] Troponin HS Serial Baseline ng/L NINF - 14 ng/L [facility] Comment on above: In individuals prese nting with symptoms > 2h, a baseline troponin <= 5 ng/L suggests acute cardiac injury is unlikely and further serial testing is generally not indicated. [facility] PROCALCITONIN TESTon 025 PROCALCITONIN 0.02 ng/mL Normal <0.07 [facility] Comment on above: Result Comment: ORDE R COMMENTS: PCT <0.50 = Low risk of severe sepsis and/or septic shock. PCT >2.00 = High risk of severe sepsis and/or septic shock. Performed By: #### L [id number] #### Enrobing Machine Corder: CALE LEON ([id number]) [facility] (SWRLAB[address] RESPIRATORY PATHOGENS PANEL BY PCRon 04-14-2025 RESPIRATORY PATHOGENS PANEL BY PCR SARS-COV-2 Reference Not Detected Not Detected ADENOVIRUS Reference Not Detected Not Detected CORONAVIRUS HKU1 Reference Not Detected Not Detected CORONAVIRUS NL63 Reference Not Detected Not Detected CORONAVIRUS 229E Reference Not Detected Not Detected CORONAVIRUS OC43 Reference Not Detected Not Detected HUMAN METAPNEUMOVIRUS Reference Not Detected Not Detected HUMAN RHINOVIRUS/ENTEROVIRU S Reference Not Detected Not Detected INFLUENZA A Reference Not Detected Not Detected INFLUENZA B Reference Not Detected Not Detected PARAINFLUENZA 1 Reference Not Detected Not Detected PARAINFLUENZA 2 Reference Not Detected Not Detected PARAINFLUENZA 3 Reference Not Detected Not Detected PARAINFLUENZA 4 Reference Not Detected Not Detected RESPIRATORY SYNCYTIAL VIRUS Reference Not Detected Not Detected BORDETELLA PERTUSSIS Reference Not Detected Not Detected BORDETELLA PARAPERTUSSIS Reference Not Detected Not Detected CHLAMYDIA PNEUMONIAE Reference Not Detected Not Detected MYCOPLASMA PNEUMONIAE Reference Not Detected Not Detected ORDER COMMENTS: Methodology: Multiplex PCR Normal [facility] Comment on above: Performed By: #### L [id number] #### Enrobing Machine Corder: CALE LEON ([id number]) [facility] ([facility]) [address] [place] [address] SARS-COV-2, FLU A/B, AND RSV COMBOon 04-14-2025 SARS-CoV-2 (COVID-19) RNA DAJA+probe Ql (Unsp spec) SARS-COV-2 Reference Not Detected Not Detected RESPIRATORY SYNCYTIAL VIRUS Reference Not Detected Not Detected INFLUENZA A (CEPHEID) Reference Not Detected Not Detected INFLUENZA B (CEPHEID) Reference Not Detected Not Detected ORDER COMMENTS: Methodology: real-time, RT-PCR The SARS-CoV-2, Flu A/B, and RSV Combo assay is intended for in vitro diagnostic use under the FDA Emergency Use Authorization (EUA). This test has not been FDA cleared or approved. In compliance with this authorization, please visit www.fda.gov/media/502 405/download or www.fda.gov/media/148 255/download to access the applicable information sheets. [facility] Comment on above: Performed By: #### L [id number] #### Enrobing Machine Corder: CALE LEON ([id number]) [facility] [address] [place] [address] SARS-CoV-2, Flu A/B, and RSV Comboon 04-14-2025 Interpretation and review of laboratory results Normal [facility] XR Chest Single viewon 04-14 No radiographic acute cardiopulmonary process. Report Dictated on Electronically Signed By: Nubia Olivera MD Electronically Signed Date/Time: 04/14/2025 7:59 PM EDT [facility] Patient Name: CARINE BARBA : 1990 Exam Date/Time: 04/14/2025 19:36 Procedure: XR CHEST 1 VIEW Ordering Provider: HUITRON DUSTIN Reason For Exam: shortness of breath INDICATION: Shortness of breath. VIEWS: Chest AP portable-one image COMPARISON: 01/08/2025; CT chest 12/31/2013 FINDINGS: The trachea is midline. The heart is not enlarged. There is no confluent consolidation. Left clavicle screw and plate fixation. [facility] Nubia Olivera MD - 04/14/2025 Patient Name: CARINE BARBA : 1990 Exam Date/Time: 04/14/2025 19:36 Procedure: XR CHEST 1 VIEW Ordering Provider: HUITRON DUSTIN Reason For Exam: shortness of breath INDICATION: Shortness of breath. VIEWS: Chest AP portable-one image COMPARISON: 01/08/2025; CT chest 12/31/2013 FINDINGS: The trachea is midline. The heart is not enlarged. There is no confluent consolidation. Left clavicle screw and plate fixation. IMPRESSION: No radiographic acute cardiopulmonary process. Report Dictated on Electronically Signed By: Nubia Olivera MD Electronically Signed Date/Time: 04/14/2025 7:59 PM EDT [facility] Radiology Study observation (narrative) [facility] [place] XR Chest Single viewOrdered By: Nubia Olivera on 04-14-2025 10-20 [employer] [place] Work Phone: CBC W Auto Differential pane l (Bld)on 01-08-2025 Basophils (Bld) [#/Vol] 0.1 10*3/uL 0.0 - 0.2 10*3/uL 10-20 [employer] [place] Basophils/100 WBC (Bld) 0.3 % 0.0 - 2.0 % [facility] [place] Eosinophils (Bld) [#/Vol] 0.5 10*3/uL 0.0 - 0.5 10*3/uL 10-20 [employer] [place] Eosinophils/100 WBC (Bld) 2.7 % 0.0 - 6.0 % [facility] [place] Erythrocyte distribution width (RBC) [Ratio] 13.2 % 11.5 - 15.0 % 10-20 [employer] [place] Hematocrit (Bld) [Volume fraction] 40.7 % 35.0 - 47.0 % 10-20 [employer] [place] Hemoglobin (Bld) [Mass/Vol] 13.8 g/dL 11.7 - 16.0 g/dL [facility] [place] Immature granulocytes (Bld) [#/Vol] 0.1 10*3/uL High NINF - 0.1 10*3/uL [facility] [place] Immature granulocytes/100 WBC (Bld) 0.4 % 0.0 - 2.0 % [facility] [place] Interpretation and review of laboratory results Abnormal [facility] [place] Lymphocytes (Bld) [#/Vol] 1.8 10*3/uL 1.0 - 4.3 10*3/uL [facility] Lymphocytes/100 WBC (Bld) 9.7 % Low 15.0 - 45.0 % [facility] MCH (RBC) [Entitic mass] 32.5 pg 26.0 - 34.0 pg [facility] MCHC (RBC) [Mass/Vol] 33.9 % 30.5 - 36.0 % [facility] MCV (RBC) [Entitic vol] 96 fL 77.0 - 99.0 fL [facility] Monocytes (Bld) [#/Vol] 0.9 10*3/uL 0.0 - 0.9 10*3/uL [facility] Monocytes/100 WBC (Bld) 4.8 % Low 5.0 - 13.0 % [facility] Neutrophils (Bld) [#/Vol] 14.8 10*3/uL High 1.8 - 7.5 10*3/uL [facility] Neutrophils/100 WBC (Bld) 82.1 % High 38.0 - 82.0 % [facility] Nucleated RBC/100 WBC (Bld) [Ratio] 0 % [facility] Platelet mean volume (Bld) [Entitic vol] 9.9 fL 9.0 - 12.7 fL [facility] Comment on above: MPV is a calculated measurement using platelet volume ratio Platelets (Bld) [#/Vol] 235 10*3/uL 140 - 440 10*3/uL [facility] RBC (Bld) [#/Vol] 4.24 10*6/uL 3.80 - 5.2 0 10*6/uL [facility] WBC (Bld) [#/Vol] 18.1 10*3/uL High 3.6 - 10.7 10*3/uL [facility] CBC WITH AUTO DIFFERENTIALon 01-08-2025 Basophils (Bld) [#/Vol] 0.1 10*3/uL Normal 0.0-0.2 [facility] Comment on above: Performed By: #### L [id number] #### Enrobing Machine Corder: CALE LEON ([id number]) [facility] (RL[facility]) [address] [place] [address] Basophils/100 WBC (Bld) 0.3 % Normal 0.0-2.0 [facility] Comment on above: Performed By: #### L [id number] #### Enrobing Machine Corder: CALE LEON ([id number]) [facility] [place] (SW[facility]) [address] [place] [address] Eosinophils (Bld) [#/Vol] 0.5 10*3/uL Normal 0.0-0.5 [facility] Comment on above: Performed By: #### L [id number] #### Enrobing Machine Corder: CALE LEON ([id number]) [facility] [place] ([facility]) [address] [place] [address] Eosinophils/100 WBC (Bld) 2.7 % Normal 0.0-6.0 [facility] Comment on above: Performed By: #### L [id number] #### Enrobing Machine Corder: CALE LEON ([id number]) [facility] [place] ([facility]) [address] [place] [address] Erythrocyte distribution width (RBC) [Ratio] 13.2 % Normal 11.5-15.0 [facility] Comment on above: Performed By: #### L [id number] #### Enrobing Machine Corder: CALE LEON ([id number]) [facility] [place] ([place]) [address] [place] [address] Hematocrit (Bld) [Volume fraction] 40.7 % Normal 35.0-47.0 [facility] Comment on above: Performed By: #### L [id number] #### Enrobing Machine Corder: CALE LEON ([id number]) [facility] [place] ([place]) [address] [place] [address] Hemoglobin (Bld) [Mass/Vol] 13.8 g/dL Normal 11.7-16.0 [facility] Comment on above: Performed By: #### L [id number] #### Enrobing Machine Corder: CALE LEON ([id number]) [facility] [place] ([place]) [address] [place] [address] IMMATURE GRANS % 0.4 % Normal 0.0-2.0 [facility] Comment on above: Performed By: #### L [id number] #### Enrobing Machine Corder: CALE LEON ([id number]) [facility] [place] ([place]) [address] [place] [address] IMMATURE GRANS ABSOLUTE 0.1 10*3/uL High <0.1 [facility] Comment on above: Performed By: #### L [id number] #### Enrobing Machine Corder: CALE LEON ([id number]) [facility] [place] ([place]) [address] [place] [address] Lymphocytes (Bld) [#/Vol] 1.8 10*3/uL Normal 1.0-4.3 [facility] Comment on above: Performed By: #### L [id number] #### Enrobing Machine Corder: CALE LEON ([id number]) [facility] [place] ([place]) [address] [place] [address] Lymphocytes/100 WBC (Bld) 9.7 % Low 15.0-45.0 [facility] Comment on above: Performed By: #### L [id number] #### Enrobing Machine Corder: CALE LEON ([id number]) [facility] [place] ([place]) [address] [place] [address] MCH (RBC) [Entitic mass] 32.5 pg Normal 26.0-34.0 [facility] Comment on above: Performed By: #### L [id number] #### Enrobing Machine Corder: CALE LEON ([id number]) [facility] [place] ([place]) [address] [place] [address] MCHC 33.9 % Normal 30.5-36.0 [facility] Comment on above: Performed By: #### L [id number] #### Enrobing Machine Corder: CALE LEON ([id number]) [facility] [place] ([facility]) [address] [place] [address] MCV (RBC) [Entitic vol] 96.0 fL Normal 77.0-99.0 [facility] Comment on above: Performed By: #### L [id number] #### Enrobing Machine Corder: CALE LEON ([id number]) [facility] [place] ([place]) [address] [place] [address] Monocytes (Bld) [#/Vol] 0.9 10*3/uL Normal 0.0-0.9 [facility] Comment on above: Performed By: #### L [id number] #### Enrobing Machine Corder: CALE LEON ([id number]) [facility] [place] ([place]) [address] [place] [address] [place] Monocytes/100 WBC (Bld) 4.8 % Low 5.0-13.0 [facility] Comment on above: Performed By: #### L [id number] #### Enrobing Machine Corder: CALE LEON ([id number]) [facility] [place] ([place]) [address] [place] [address] [place] NEUTROPHILS ABSOLUTE 14.8 10*3/uL High 1.8-7.5 [facility] Comment on above: Performed By: #### L [id number] #### Enrobing Machine Corder: CALE LEON ([id number]) [facility] [place] ([place]) [address] [place] [address] [place] Neutrophils/100 WBC (Bld) 82.1 % High 38.0-82.0 [facility] Comment on above: Performed By: #### L [id number] #### Enrobing Machine Corder: CALE LEON ([id number]) [facility] [place] ([place]) [address] [place] [address] [place] NRBC 0.0 /100 WBCs Normal 0.0-2.0 [facility] Comment on above: Performed By: #### L [id number] #### Enrobing Machine Corder: CALE LEON ([id number]) [facility] [place] ([place]) [address] Platelet mean volume (Bld) [Entitic vol] 9.9 fL Normal 9.0-12.7 [facility] Comment on above: Result Comment: MPV is a calculated measurement using platelet volume ratio Performed By: #### L [id number] #### Enrobing Machine Corder: CALE LEON ([id number]) [facility] [place] ([place]) [address] [place] [address] Platelets (Bld) [#/Vol] 235 10*3/uL Normal 140-440 [facility] Comment on above: Performed By: #### L [id number] #### Enrobing Machine Corder: CALE LEON ([id number]) [facility] [place] ([place]) [address] [place] [address] RBC (Bld) [#/Vol] 4.24 10*6/uL Normal 3.80-5.20 [facility] Comment on above: Performed By: #### L [id number] #### Enrobing Machine Corder: CALE LEON ([id number]) [facility] [place] ([place]) [address] [place] [address] WBC (Bld) [#/Vol] 18.1 10*3/uL High 3.6-10.7 [facility] Comment on above: Performed By: #### L [id number] #### Enrobing Machine Corder: CALE LEON ([id number]) [facility] [place] ([place]) [address] [place] [address] COMPREHENSIVE METABOLIC PANE [place] 01-08-2025 Albumin [Mass/Vol] 4.3 g/dL Normal 3.5-5.0 [facility] Comment on above: Performed By: #### L [id number] #### Enrobing Machine Corder: CALE LEON ([id number]) [facility] [place] ([place]) [address] [place] [address] ALP [Catalytic activity/Vol] 62 U/L Normal 40-150 [facility] Comment on above: Performed By: #### L [id number] #### Enrobing Machine Corder: CALE LEON ([id number]) [facility] [place] ([place]) [address] [place] [address] ALT [Catalytic activity/Vol] 11 U/L Normal <30 [facility] Comment on above: Performed By: #### L [id number] #### Enrobing Machine Corder: CALE LEON ([id number]) [facility] [place] ([place]) [address] [place] [address] Anion gap [Moles/Vol] 7 mmol/L Normal 3-13 [facility] Comment on above: Performed By: #### L [id number] #### Enrobing Machine Corder: CALE LEON ([id number]) [facility] [place] ([place]) [address] [place] [address] AST [Catalytic activity/Vol] 17 U/L Normal <34 [facility] Comment on above: Performed By: #### L [id number] #### Enrobing Machine Corder: CALE LEON ([id number]) [facility] [place] ([place]) [address] [place] [address] Bilirubin [Mass/Vol] 0.6 mg/dL Normal <1.2 [facility] Comment on above: Performed By: #### L [id number] #### Enrobing Machine Corder: CALE LEON ([id number]) [facility] [place] ([place]) [address] [place] [address] [place] Calcium [Mass/Vol] 8.8 mg/dL Normal 8.4-10.2 [facility] Comment on above: Performed By: #### L [id number] #### Enrobing Machine Corder: CALE LEON ([id number]) [facility] [place] ([place]) [address] [place] [address] [place] Chloride [Moles/Vol] 107 mmol/L Normal 98-107 [facility] Comment on above: Performed By: #### L [id number] #### Enrobing Machine Corder: CALE LEON ([id number]) [facility] [place] ([place]) [address] [place] [address] CO2 [Moles/Vol] 27 mmol/L Normal 22-29 [facility] Comment on above: Performed By: #### L [id number] #### Enrobing Machine Corder: CALE LEON ([id number]) [facility] [place] ([place]) [address] [place] [address] Creatinine [Mass/Vol] 0.77 mg/dL Normal 0.57-1.11 [facility] Comment on above: Performed By: #### L [id number] #### Enrobing Machine Corder: CALE LEON ([id number]) [facility] [place] ([place]) [address] [place] [address] GLOMERULAR FILTRATION RATE ML/MIN/1.73 SQ M.PREDICTED >90.0 Normal >60.0 [facility] Comment on above: Result Comment: Calc ulation based on the Chronic Kidney Disease Epidemiology Collaboration (CKD-EPI) equation refit without adjustment for race Performed By: #### L [id number] #### Enrobing Machine Corder: CALE LEON ([id number]) [facility] [place] ([place]) [address] [place] [address] Glucose [Mass/Vol] 88 mg/dL Normal 74-100 [facility] Comment on above: Performed By: #### L [id number] #### Enrobing Machine Corder: CALE LEON ([id number]) [facility] [place] (SW[place]) [address] [place] [address] [place] Potassium [Moles/Vol] 3.8 mmol/L Normal 3.5-5.1 [facility] Comment on above: Result Comment: [facility] potassium values may be up to 0.5 mmol/L lower than serum values. Performed By: #### L [id number] #### Enrobing Machine Corder: CALE LEON ([id number]) [facility] [place] ([place]) [address] Protein [Mass/Vol] 6.9 g/dL Normal 6.4-8.3 [facility] Comment on above: Performed By: #### L [id number] #### Enrobing Machine Corder: CALE LEON ([id number]) [facility] [place] ([place]) [address] Sodium [Moles/Vol] 141 mmol/L Normal 136-145 [facility] Comment on above: Performed By: #### L [id number] #### Enrobing Machine Corder: CALE LEON ([id number]) [facility] [place] ([place]) [address] Urea nitrogen [Mass/Vol] 12 mg/dL Normal 8-21 [facility] Comment on above: Performed By: #### L [id number] #### Enrobing Machine Corder: CALE LEON ([id number]) [facility] [place] ([place]) [address] Comprehensive metabolic 1998 panelon 01-08-2025 Albumin [Mass/Vol] 4.3 g/dL 3.5 - 5.0 g/dL [facility] ALP [Catalytic activity/Vol] 62 U/L 40 - 150 U/L [facility] ALT [Catalytic activity/Vol] 11 U/L NINF - 30 U/L [facility] Anion gap [Moles/Vol] 7 mmol/L 3 - 13 mmol/L [facility] AST [Catalytic activity/Vol] 17 U/L NINF - 34 U/L [facility] Bilirubin [Mass/Vol] 0.6 mg/dL NINF - 1.2 mg/dL [facility] Calcium [Mass/Vol] 8.8 mg/dL 8.4 - 10. 2 mg/dL [facility] Chloride [Moles/Vol] 107 mmol/L 98 - 10 7 mmol/L [facility] CO2 [Moles/Vol] 27 mmol/L 22 - 29 mmol/L [facility] Creatinine [Mass/Vol] 0.77 mg/dL 0.57 - 1.11 mg/dL [facility] GFR/1.73 sq M.predicted (S/P/Bld) [Vol rate/Area] - PINF [facility] Comment on above: Calculation based on the Chronic Kidney Disease Epidemiology Collaboration (CKD-EPI) equation refit without adjustment for race Glucose [Mass/Vol] 88 mg/dL 74 - 100 mg/dL [facility] Interpretation and review of laboratory results Normal [facility] Potassium [Moles/Vol] 3.8 mmol/L 3.5 - 5.1 mmol/L [facility] Comment on above: Plasma potassium phillip ues may be up to 0.5 mmol/L lower than serum values. Protein [Mass/Vol] 6.9 g/dL 6.4 - 8.3 g/dL [facility] Sodium [Moles/Vol] 141 mmol/L 136 - 145 mmol/L [facility] Urea nitrogen [Mass/Vol] 12 mg/dL 8 - 21 mg/dL [facility] ED Nursing Noteon 01-08-2025 ED Nursing Note Patient arrived via wheelchair to room 5 with male visitor. Patient complains of SOB since yesterday. Patient has hx of asthma and has been using her inhalers with no relief. Patient audibly wheezing. Patient states muscles in chest feel tight and it hurts to take a deep breath. Normal [facility] ED Provider Noteon ED Provider Note EMERGENCY DEPARTMENT ENCOUNTER Pt Name: Carine Barba Birthdate 1990 Date of evaluation: 01/08/2025 ED Provider: Giancarlo Batres MD CHIEF COMPLAINT Chief Complaint Patient presents with ? Shortness of Breath HISTORY OF PRESENT ILLNESS I wore appropriate PPE for the entirety of this encounter. HPI Carine Barba is a 34 y.o. female who presents to the emergency department complaining of cough and shortness of breath. She has a history of asthma. She has had presentations in the emergency department for that. She does have a home nebulizer but she ran out of the albuterol. She is not currently taking prednisone. There has been no fever or chills. She has a prior history of pulmonary emboli. She is not on any blood thinners. She denies any chest pain. Nursing Notes were reviewed. Limitations to history: None Outside historians: None REVIEW OF SYSTEMS Review of Systems Constitutional: Negative for chills and fever. HENT: Negative for ear pain and sore throat. Eyes: Negative for pain and visual disturbance. Respiratory: Positive for cough and shortness of breath. Cardiovascular: Negative for chest pain and palpitations. Gastrointestinal: Negative for abdominal pain and vomiting. Genitourinary: Negative for dysuria and hematuria. Musculoskeletal: Negative for arthralgias and back pain. Skin: Negative for color change and rash. Neurological: Negative for seizures and syncope. All other systems reviewed and are negative. PAST MEDICAL HISTORY Past Medical History: Diagnosis Date ? Anxiety ? Asthma ? History of blood clots ? Multiple fractures bilateral, clavicle, hand, L4-L5 verterbral bodiess SURGICAL HISTORY Past Surgical History: Procedure Laterality Date ? ANTERIOR CRUCIATE LIGAMENT REPAIR ? BREAST SURGERY ? SECTION (HISTORICAL) CURRENT MEDICATIONS Previous Medications No medications on file ALLERGIES Cefadroxil FAMILY HISTORY No family history on file. SOCIAL HISTORY Social History Socioeconomic History ? Marital status: Single Tobacco Use ? Smoking status: Every Day Current packs/day: 0.25 Types: Cigarettes ? Smokeless tobacco: Current Vaping Use ? Vaping status: Never Used Substance and Sexual Activity ? Alcohol use: Yes ? Drug use: Yes Types: Marijuana Social Drivers of Health Food Insecurity: No Food Insecurity (10/18/2024) Received from [facility] Hunger Vital Sign ? Worried About Running Out of Food in the Last Year: Never true ? Ran Out of Food in the Last Year: Never true Transportation Needs: No Transportation Needs (10/18/2024) Re[facility] from [facility] ? Lack of Transportation (Medical): No ? Lack of Transportation (Non-Medical): No Housing Stability: Unknown (10/18/2024) Received from [facility] Housing Stability Vital Sign ? Unable to Pay for Housing in the Last Year: No ? Homeless in the Last Year: No SCREENINGS PHYSICAL EXAM ED Triage Vitals [01/08/25 0154] Temp Heart Rate Resp BP 37.2 ?C (99 ?F) (!) 120 24 124/89 SpO2 Temp Source Heart Rate Source Patient Position 98 % Temporal Monitor Sitting BP Location FiO2 (%) Left arm -- Physical Exam Vitals and nursing note reviewed. Constitutional: General: She is not in acute distress. Appearance: She is well-developed. Comments: The patient is a young middle-aged female found sitting on a cart. She is in moderate respiratory distress with a respiratory rate of 24. She has a temperature 99.0. She is tachycardic with a heart rate of 120. HENT: Head: Normocephalic and atraumatic. Eyes: Conjunctiva/sclera: Conjunctivae normal. Cardiovascular: Rate and Rhythm: Normal rate and regular rhythm. Heart sounds: No murmur heard. Pulmonary: Effort: Pulmonary effort is normal. No respiratory distress. Breath sounds: Examination of the right-upper field reveals wheezing. Examination of the left-upper field reveals wheezing. Examination of the right-middle field reveals wheezing. Examination of the left-middle field reveals wheezing. Examination of the right-lower field reveals wheezing. Examination of the left-lower field reveals wheezing. Wheezing present. Abdominal: Palpations: Abdomen is soft. Tenderness: There is no abdominal tenderness. Musculoskeletal: General: No swelling. Cervical back: Neck supple. Skin: General: Skin is warm and dry. Capillary Refill: Capillary refill takes less than 2 seconds. Neurological: Mental Status: She is alert. Psychiatric: Mood and Affect: Mood normal. DIAGNOSTIC RESULTS RADIOLOGY (Per Emergency Physician): Interpretation per the Radiologist below, if available at the time of this note: XR chest 1 view Final Result No acute cardiopulmonary process identified. Report Dictated on Electronically Signed By: Damon Mccauley MD Electronically Signed Date/Time: (more content not included)... Normal [facility] Laboratory - Microbiology an d Antimicrobial susceptibilityon 01-08-2025 FLUAV RNA DAJA+probe Ql (Resp) Not detected Not Detected [facility] FLUBV RNA DAJA+probe Ql (Resp) Not detected Not Detected [facility] RSV RNA DAJA+probe Ql (Resp) Not detected Not Detected [facility] SARS-CoV-2 (COVID-19) RNA DAJA+probe Ql (Resp) Not detected Not Detected [facility] SARS-CoV-2 (COVID-19) RNA DAJA+probe Ql (Unsp spec) Methodology: real-time, RT-PCR The SARS-CoV-2, Flu A/B, and RSV Combo assay is intended for in vitro diagnostic use under the FDA Emergency Use Authorization (EUA). This test has not been FDA cleared or approved. In compliance with this authorization, please visit www.fda.gov/media/514 435/download or www.fda.gov/media/577 184/download to access the applicable information sheets. [facility] SARS-COV-2, FLU A/B, AND RSV COMBOon 01-08-2025 SARS-CoV-2 (COVID-19) RNA DAJA+probe Ql (Unsp spec) SARS-COV-2 Reference Not Detected Not Detected RESPIRATORY SYNCYTIAL VIRUS Reference Not Detected Not Detected INFLUENZA A (CEPHEID) Reference Not Detected Not Detected INFLUENZA B (CEPHEID) Reference Not Detected Not Detected ORDER COMMENTS: Methodology: real-time, RT-PCR The SARS-CoV-2, Flu A/B, and RSV Combo assay is intended for in vitro diagnostic use under the FDA Emergency Use Authorization (EUA). This test has not been FDA cleared or approved. In compliance with this authorization, please visit www.fda.gov/media/871 435/download or www.Med[employer].gov/media/130 298/download to access the applicable information sheets. Normal [facility] Comment on above: Performed By: #### L [id number] #### Enrobing Machine Corder: CALE LEON ([id number]) [facility] [address] [place] [address] SARS-CoV-2, Flu A/B, and RSV Comboon 01-08-2025 Interpretation and review of laboratory results Normal [facility] XR Chest Single viewon 01-08 No acute cardiopulmonary process identified. Report Dictated on Electronically Signed By: Damon Mccauley MD Electronically Signed Date/Time: 01/08/2025 2:40 AM [facility] 1990 [id number] Exam Date/Time: 01/08/2025 02:04 Procedure: XR CHEST 1 VIEW Ordering Provider: BATRES MICHAEL Reason For Exam: cough CHEST X-RAY CLINICAL INDICATION: cough TECHNIQUE: AP COMPARISON: 06/08/2020 FINDINGS: Quality: Unremarkable. Lines: None Cardiomediastinal Silhouette: The cardiac and mediastinal silhouettes are normal. Lungs: The lungs are clear.. No evidence of pleural effusion or pneumothorax. Soft tissue: The soft tissue structures appear unremarkable. Bones: No acute osseous process identified. ORIF of the left clavicle noted. [facility] Damon Mccauley MD - 01/08/2025 Patient Name: CARINE BARBA : 1990 [id number] Exam Date/Time: 01/08/2025 02:04 Procedure: XR CHEST 1 VIEW Ordering Provider: BATRES MICHAEL Reason For Exam: cough CHEST X-RAY CLINICAL INDICATION: cough TECHNIQUE: AP COMPARISON: 06/08/2020 FINDINGS: Quality: Unremarkable. Lines: None Cardiomediastinal Silhouette: The cardiac and mediastinal silhouettes are normal. Lungs: The lungs are clear.. No evidence of pleural effusion or pneumothorax. Soft tissue: The soft tissue structures appear unremarkable. Bones: No acute osseous process identified. ORIF of the left clavicle noted. IMPRESSION: No acute cardiopulmonary process identified. Report Dictated on Electronically Signed By: Damon Mccauley MD Electronically Signed Date/Time: 01/08/2025 2:40 AM EDT [facility] Radiology Study observation (narrative) [facility] Chest Single viewOrdered By: Damon Mccauley on 01-08-2025 [facility] Work Phone: CBC panel Auto (Bld)on 10-20 Erythrocyte distribution width (RBC) [Ratio] 12.9 % Normal 11.5-15.0 [facility] Comment on above: Order Comment: Speci men Type: BLOOD SPECIMENOrdering Facility: [facility] Address: [address] [place] [address] Performed By: #### 5 8410-2 ####[facility]IR[facility] LABORATORYCLIA [id number] [address] [place] [facility] Hematocrit (Bld) [Volume fraction] 42.2 % Normal 36.0-46.0 [facility] Comment on above: Order Comment: Speci men Type: BLOOD SPECIMENOrdering Facility: [facility] Address: [address] [place] [address] Performed By: #### 5 8410-2 ####QUIROZ LABORATORYCLIA [id number] [address] Hemoglobin (Bld) [Mass/Vol] 13.8 g/dL Normal 11.5-15.5 [facility] Comment on above: Order Comment: Speci men Type: BLOOD SPECIMENOrdering Facility: [facility] Address: [address] [place] [address] Performed By: #### 5 8410-2 ####QUIROZ LABORATORYCLIA [id number] [address] MCH (RBC) [Entitic mass] 31.8 pg Normal 26.0-34.0 [facility] Comment on above: Order Comment: Speci men Type: BLOOD SPECIMENOrdering Facility: [facility] Address: [address] [place] [address] Performed By: #### 5 8410-2 ####QUIROZ LABORATORYCLIA [id number] [address] MCHC (RBC) [Mass/Vol] 32.7 g/dL Normal 30.5-36.0 [facility] Comment on above: Order Comment: Speci men Type: BLOOD SPECIMENOrdering Facility: [facility] Address: [address] [place] [address] Performed By: #### 5 8410-2 ####QUIROZ LABORATORYCLIA [id number] [address] MCV (RBC) [Entitic vol] 97.2 fL Normal 80.0-100.0 [facility] Comment on above: Order Comment: Speci men Type: BLOOD SPECIMENOrdering Facility: [facility] Address: [address] [place] [address] Performed By: #### 5 8410-2 ####QUIROZ LABORATORYCLIA [id number] [address] Nucleated RBC (Bld) [#/Vol] 10*3/uL Normal <0.01 [facility] Comment on above: Order Comment: Speci men Type: BLOOD SPECIMENOrdering Facility: [facility] Address: [address] [place] [address] Performed By: #### 5 8410-2 ####QUIROZ LABORATORYCLIA [id number] [address] [place] Platelet mean volume (Bld) [Entitic vol] 10.0 fL Normal 9.0-12.7 [facility] Comment on above: Order Comment: Speci men Type: BLOOD SPECIMENOrdering Facility: [facility] Address: [address] [place] [address] Performed By: #### 5 8410-2 ####MIDVALE LABORATORYCLIA [id number] [place] [address] [place] Platelets (Bld) [#/Vol] 238 10*3/uL Normal 150-400 [facility] Comment on above: Order Comment: Speci men Type: BLOOD SPECIMENOrdering Facility: [facility] Address: [address] [place] [address] Performed By: #### 5 8410-2 ####MIDVALE LABORATORYCLIA [id number] [place] [address] [place] RBC (Bld) [#/Vol] 4.34 10*6/uL Normal 3.90-5.20 [facility] Comment on above: Order Comment: Speci men Type: BLOOD SPECIMENOrdering Facility: [facility] Address: [address] [place] [address] Performed By: #### 5 8410-2 ####MIDVALE LABORATORYCLIA [id number] [address] [place] WBC (Bld) [#/Vol] 7.49 10*3/uL Normal 3.70-11.00 [facility] Comment on above: Order Comment: Speci men Type: BLOOD SPECIMENOrdering Facility: [facility] Address: [address] [place] [address] Performed By: #### 5 8410-2 ####QUIROZ LABORATORYCLIA [id number] [address] [place] CNCOon 10-20-2024 CNCO Letter Text Normal [facility] CNDSon 10-20-2024 CNDS HNO ID: [id number] Author: NALDO RYAN MD Service: General Internal Medicine Author Type: Physician Type: Discharge Summary Filed: 10/20/2024 10:04 Note Text: DISCHARGE SUMMARY PATIENT NAME: Carine Barba ADMISSION DATE: 10/18/2024 DISCHARGE DATE: 10/20/2024 ATTENDING PHYSICIAN: Sunil Romero MD Code Status: Full Code Highest Readmission Risk Score: 21 The 30 day readmissions risk score is derived from an internally validated risk model which evaluates patient level characteristics, utilization history, medication orders and lab results up until the day of discharge. Patients with a score of 40 or above are considered highest risk for readmission. Specific patient level drivers will be listed at the bottom of the summary. CONSULTING TEAMS DURING HOSPITALIZATION: Treatment Team: Attending Provider: Sunil Romero MD REASON FOR HOSPITALIZATION/DIAGN OSIS: Severe asthma with exacerbation -POA Pneumonia of both lungs due to infectious organism Influenza A Nicotine use disorder OPERATIONS DURING HOSPITALIZATION: None PROCEDURES DURING HOSPITALIZATION: No procedures performed HOSPITAL COURSE: She was treated with steroids, antibiotic and tamiflu. She is clinically better and is being discharged to home Transitions of Care Critical Issues: as above LABS AND PROCEDURES PENDING AT DISCHARGE: No pending results. PATIENT CONDITION AT DISCHARGE: Stable DISCHARGE DISPOSITION: Home with Self Care Discharge Physical Exam: VITAL SIGNS: BP 108/63 Pulse 65 Temp 36.5 ?C (97.7 ?F) (Oral) Resp 20 Ht 170.2 cm (5' 7") Wt 75.5 kg (166 lb 7.2 oz) SpO2 93% BMI 26.07 kg/m? GENERAL: Alert, no distress, cooperative LUNGS: Lungs clear to auscultation, Good diaphragmatic excursion CARDIAC: Normal S1 and S2; no rubs, murmurs, or gallops ABDOMEN: Abdomen soft, non-tender, BS normal, No masses or organomegaly EXTREMITIES: Extremities normal, no deformities, edema, clubbing or skin discoloration. Good capillary refill., No ulcers INFORMATION PROVIDED TO PATIENT: Smoking Cessation Material Given WOUND/SURGICAL SITE CARE: None DIET: Resume pre-hospital diet ACTIVITY: Resume pre-hospital activity ALLERGIES Allergen Reactions Duracef [Cefadroxil] GI Upset Splotchy face DISCHARGE MEDICATION: Medication List START taking these medications guaiFENesin 600 mg 12 hr tablet Commonly known as: MUCINEX Take 1 tablet by mouth every 12 hours for 5 days. levoFLOXacin 500 mg tablet Commonly known as: LEVAQUIN Take 1 tablet by mouth once daily for 5 days. oseltamivir 75 mg capsule Commonly known as: TAMIFLU Take 1 capsule by mouth two times a day for 6 doses. predniSONE 10 mg tablet Commonly known as: DELTASONE Take 4 tablets by mouth once daily for 3 days, THEN 3 tablets once daily for 3 days, THEN 2 tablets once daily for 3 days, THEN 1 tablet once daily for 3 days. Start taking on: October 20, 2024 CONTINUE taking these medications SYMBICORT 80-4.5 mcg/actuation inhaler Generic drug: budesonide-formoterol VENTOLIN HFA 90 mcg/actuation inhaler Generic drug: albuterol HFA Where to Get Your Medications These medications were sent to [facility]- [id number] [place] [address] - [address] [place] [address] - [phone] [place] [address] guaiFENesin 600 mg 12 hr tablet levoFLOXacin 500 mg tablet oseltamivir 75 mg capsule predniSONE 10 mg tablet FUTURE APPOINTMENTS: Follow Up with PCP: No primary care provider on file. The patient's risk for 30-day readmission is determined using the following contributing factors: Pt variables contributing to increased readmission risk: 17 Most Recent BUN Result 13 Active Medication Orders 9.2 First Resulted Calcium During Admission 1 Previous ED Visit (6 mos.)? 1 Number of Previous ED Visits (6 mos.) 1 Insurance - Medicaid 1 History of COPD 1 Active Anticoagulant Plan of care discussed with Patient, Care Management, and RN I have performed the hsox-is-liuq and relevant services for a total of < 30 minutes. SIGNATURE: Naldo Ryan MD DATE: October 20, 2024 TIME: 9:58 AM Normal [facility] Comprehensive metabolic 2000 panelon 10-20-2024 Albumin [Mass/Vol] 4.0 g/dL Normal 3.9-4.9 [facility] Comment on above: Order Comment: Speci men Type: BLOOD SPECIMENOrdering Facility: [facility] Address: [address] [place] [address] Performed By: #### 2 4323-8 ####MIDVALE LABORATORYCLIA [id number] [place] [address] [facility] ALP [Catalytic activity/Vol] 86 U/L Normal 34-123 [facility] Comment on above: Order Comment: Speci men Type: BLOOD SPECIMENOrdering Facility: [facility] Address: [address] [place] [address] Performed By: #### 2 4323-8 ####QUIROZ LABORATORYCLIA [id number] [place] [address] [place] ALT [Catalytic activity/Vol] 32 U/L Normal 7-38 [facility] Comment on above: Order Comment: Speci men Type: BLOOD SPECIMENOrdering Facility: [facility] Address: [address] [place] [address] Performed By: #### 2 4323-8 ####QUIROZ LABORATORYCLIA [id number] [place] [address] [place] Anion gap [Moles/Vol] 7 mmol/L Low 8-15 [facility] Comment on above: Order Comment: Speci men Type: BLOOD SPECIMENOrdering Facility: [facility] Address: [address] [place] [address] Performed By: #### 2 4323-8 ####QUIROZ LABORATORYCLIA [id number] [address] [place] AST [Catalytic activity/Vol] 19 U/L Normal 13-35 [facility] Comment on above: Order Comment: Speci men Type: BLOOD SPECIMENOrdering Facility: [facility] Address: [address] [place] [address] Performed By: #### 2 4323-8 ####QUIROZ LABORATORYCLIA [id number] [place] [address] [place] Bilirubin [Mass/Vol] 0.3 mg/dL Normal 0.2-1.3 [facility] Comment on above: Order Comment: Speci men Type: BLOOD SPECIMENOrdering Facility: [facility] Address: [address] [place] [address] Performed By: #### 2 4323-8 ####QUIROZ LABORATORYCLIA [id number] [place] [address] [place] Calcium [Mass/Vol] 9.6 mg/dL Normal 8.5-10.2 [facility] Comment on above: Order Comment: Speci men Type: BLOOD SPECIMENOrdering Facility: [facility] Address: [facility] [place] [address] Performed By: #### 2 4323-8 ####QUIROZ LABORATORYCLIA [id number] [place] [address] [place] Chloride [Moles/Vol] 98 mmol/L Normal 98-107 [facility] Comment on above: Order Comment: Speci men Type: BLOOD SPECIMENOrdering Facility: [facility] Address: [address] [place] [address] Performed By: #### 2 4323-8 ####QUIROZ LABORATORYCLIA [id number] [place] [address] [place] CO2 [Moles/Vol] 32 mmol/L High 22-30 [facility] Comment on above: Order Comment: Speci men Type: BLOOD SPECIMENOrdering Facility: [facility] Address: [address] [place] [address] Performed By: #### 2 4323-8 ####QUIROZ LABORATORYCLIA [id number] [place] [address] [place] Creatinine [Mass/Vol] 0.70 mg/dL Normal 0.58-0.96 [facility] Comment on above: Order Comment: Speci men Type: BLOOD SPECIMENOrdering Facility: [facility] Address: [address] [place] [address] Performed By: #### 2 4323-8 ####QUIROZ LABORATORYCLIA [id number] [address] Creatinine and Glomerular filtration rate.predicted panel (S/P/Bld) 117 mL/min/1.73m??? Normal >=60 [facility] Comment on above: Order Comment: Speci men Type: BLOOD SPECIMENOrdering Facility: [facility] Address: [address] [place] [address] Result Comment: Vidhi mated Glomerular Filtration Rate (eGFR) is calculated using the 2020 CKD-EPI creatinine equation. This equation utilizes serum creatinine, sex, and age as parameters. The creatinine assay has traceable calibration to isotope dilution-mass spectrometry. Refer to KDIGO guidelines for clinical interpretation. In patients with unstable renal function, e.g. those with acute kidney injury, the eGFR may not accurately reflect actual GFR. Performed By: #### 2 4323-8 ####QUIROZ LABORATORYCLIA [id number] [place] [address] [place] Glucose [Mass/Vol] 134 mg/dL High 74-99 [facility] Comment on above: Order Comment: Jayne almonte Type: BLOOD SPECIMENOrdering Facility: [facility] Address: [address] [place] [address] Result Comment: The [place] [employer] (ADA) provides guidance for cutoff values for fasting glucose and random glucose. The ADA defines fasting as no caloric intake for at least 8 hours. Fasting plasma glucose results between 100 to 125 mg/dL indicate increased risk for diabetes (prediabetes). Fasting plasma glucose results greater than or equal to 126 mg/dL meet the criteria for diagnosis of diabetes. In the absence of unequivocal hyperglycemia, results should be confirmed by repeat testing. In a patient with classic symptoms of hyperglycemia or hyperglycemic crisis, random plasma glucose results greater than or equal to 200 mg/dL meet the criteria for diagnosis of diabetes. Reference: Standards of Medical Care in Diabetes 2016, [place] [employer]. Diabetes Care. 2016.39(Suppl 1). Performed By: #### 2 4323-8 ####MIDVALE LABORATORYCLIA [id number] [place] [address] [place] Potassium [Moles/Vol] 5.5 mmol/L High 3.7-5.1 [facility] Comment on above: Order Comment: Jayne almonte Type: BLOOD SPECIMENOrdering Facility: [facility] Address: [address] [place] [address] Performed By: #### 2 4323-8 ####MIDVALE LABORATORYCLIA [id number] [place] [id number] [place] Protein [Mass/Vol] 6.8 g/dL Normal 6.3-8.0 [facility] Comment on above: Order Comment: Jayne almonte Type: BLOOD SPECIMENOrdering Facility: [facility] Address: [address] [place] [address] Performed By: #### 2 4323-8 ####QUIROZ LABORATORYCLIA [id number] [address] Sodium [Moles/Vol] 137 mmol/L Normal 136-144 [facility] Comment on above: Order Comment: Speci men Type: BLOOD SPECIMENOrdering Facility: [facility] Address: [address] [place] [address] Performed By: #### 2 4323-8 ####QUIROZ LABORATORYCLIA [id number] [address] Urea nitrogen [Mass/Vol] 17 mg/dL Normal 7-21 [facility] Comment on above: Order Comment: Speci men Type: BLOOD SPECIMENOrdering Facility: [facility] Address: [address] [place] [address] Performed By: #### 2 4323-8 ####QUIROZ LABORATORYCLIA [id number] [address] ALLIED HEALTHon 10-19-2024 ALLIED HEALTH HNO ID: [id number] Author: SARAH GALLOWAY RN Service: Infection Prevention Author Type: Registered Nurse Type: Allied Health Filed: 10/19/2024 09:04 Note Text: ISOLATION NOTE Admission Date: 10/18/2024 Type of Isolation Recommended: Droplet Precautions (Green Isolation Sign) Indication: Influenza Date Isolation Initiated: 10/18/2024 Anticipated Duration of Isolation: In consultation with Infection Prevention Type and Date of Positive Test(s): Positive for Influenza A by PCR 10/18/2024. SIGNATURE: Sarah Galloway RN PATIENT NAME: Carine Barba DATE: October 19, 2024 TIME: 9:02 AM PAGER/CONTACT #: [phone] Infection Prevention after hours/weekend pager: Contact Nursing Wildlife Ecology Professor Normal [facility] Bacteria Spec Resp Culton Bacteria identified Respiratory culture Nom (Unsp spec) ORGANISM ID: 1 Few normal respiratory placido GRAM STAIN: No organisms seen No Polymorphonuclear Leukocytes Abnormal [facility] Comment on above: Performed By: #### 3 2355-0 ####[facility] LABCLIA [id number] [facility] [id number] [facility] CBC panel Auto (Bld)on 10-19 Erythrocyte distribution width (RBC) [Ratio] 13.1 % Normal 11.5-15.0 [facility] Comment on above: Order Comment: Speci men Type: BLOOD SPECIMENOrdering Facility: [facility] Address: [address] [place] [address] Performed By: #### 5 8410-2 ####QUIROZ LABORATORYCLIA [id number] [address] Hematocrit (Bld) [Volume fraction] 41.0 % Normal 36.0-46.0 [facility] Comment on above: Order Comment: Speci men Type: BLOOD SPECIMENOrdering Facility: [facility] Address: [address] [place] [address] Performed By: #### 5 8410-2 ####QUIROZ LABORATORYCLIA [id number] [address] [place] Hemoglobin (Bld) [Mass/Vol] 13.7 g/dL Normal 11.5-15.5 [facility] Comment on above: Order Comment: Speci men Type: BLOOD SPECIMENOrdering Facility: [facility] Address: [address] [place] [address] Performed By: #### 5 8410-2 ####QUIROZ LABORATORYCLIA [id number] [address] MCH (RBC) [Entitic mass] 31.9 pg Normal 26.0-34.0 [facility] Comment on above: Order Comment: Speci men Type: BLOOD SPECIMENOrdering Facility: [facility] Address: [address] [place] [address] Performed By: #### 5 8410-2 ####QUIROZ LABORATORYCLIA [id number] [address] [place] [facility] MCHC (RBC) [Mass/Vol] 33.4 g/dL Normal 30.5-36.0 [facility] Comment on above: Order Comment: Speci men Type: BLOOD SPECIMENOrdering Facility: [facility] Address: [address] [place] [address] Performed By: #### 5 8410-2 ####QUIROZ LABORATORYCLIA [id number] [address] MCV (RBC) [Entitic vol] 95.6 fL Normal 80.0-100.0 [facility] Comment on above: Order Comment: Speci men Type: BLOOD SPECIMENOrdering Facility: [facility] Address: [address] [place] [address] Performed By: #### 5 8410-2 ####QUIROZ LABORATORYCLIA [id number] [address] [place] Nucleated RBC (Bld) [#/Vol] 10*3/uL Normal <0.01 [facility] Comment on above: Order Comment: Speci men Type: BLOOD SPECIMENOrdering Facility: [facility] Address: [address] [place] [address] Performed By: #### 5 8410-2 ####QUIROZ LABORATORYCLIA [id number] [address] Platelet mean volume (Bld) [Entitic vol] 10.0 fL Normal 9.0-12.7 [facility] Comment on above: Order Comment: Speci men Type: BLOOD SPECIMENOrdering Facility: [facility] Address: [address] [place] [address] Performed By: #### 5 8410-2 ####QUIROZ LABORATORYCLIA [id number] [address] Platelets (Bld) [#/Vol] 234 10*3/uL Normal 150-400 [facility] Comment on above: Order Comment: Speci men Type: BLOOD SPECIMENOrdering Facility: [facility] Address: [address] [place] [address] Performed By: #### 5 8410-2 ####QUIROZ LABORATORYCLIA [id number] [address] [place] RBC (Bld) [#/Vol] 4.29 10*6/uL Normal 3.90-5.20 [facility] Comment on above: Order Comment: Speci men Type: BLOOD SPECIMENOrdering Facility: [facility] Address: [address] [place] [address] Performed By: #### 5 8410-2 ####QUIROZ LABORATORYCLIA [id number] [address] WBC (Bld) [#/Vol] 7.30 10*3/uL Normal 3.70-11.00 [facility] Comment on above: Order Comment: Speci men Type: BLOOD SPECIMENOrdering Facility: [facility] Address: [address] [place] [address] Performed By: #### 5 8410-2 ####QUIROZ LABORATORYCLIA [id number] [address] Comprehensive metabolic 2000 panelon 10-19-2024 Albumin [Mass/Vol] 3.6 g/dL Low 3.9-4.9 [facility] Comment on above: Order Comment: Speci men Type: BLOOD SPECIMENOrdering Facility: [facility] Address: [address] [place] [address] Performed By: #### 2 4323-8 ####QUIROZ LABORATORYCLIA [id number] [address] ALP [Catalytic activity/Vol] 96 U/L Normal 34-123 [facility] Comment on above: Order Comment: Speci men Type: BLOOD SPECIMENOrdering Facility: [facility] Address: [address] [place] [address] Performed By: #### 2 4323-8 ####QUIROZ LABORATORYCLIA [id number] [address] ALT [Catalytic activity/Vol] 33 U/L Normal 7-38 [facility] Comment on above: Order Comment: Speci men Type: BLOOD SPECIMENOrdering Facility: [facility] Address: [address] [place] [address] Performed By: #### 2 4323-8 ####QUIROZ LABORATORYCLIA [id number] [address] Anion gap [Moles/Vol] 8 mmol/L Normal 8-15 [facility] Comment on above: Order Comment: Speci men Type: BLOOD SPECIMENOrdering Facility: [facility] Address: [address] [place] [address] Performed By: #### 2 4323-8 ####QUIROZ LABORATORYCLIA [id number] [place] [address] [place] AST [Catalytic activity/Vol] 25 U/L Normal 13-35 [facility] Comment on above: Order Comment: Speci men Type: BLOOD SPECIMENOrdering Facility: [facility] Address: [address] [place] [address] Performed By: #### 2 4323-8 ####QUIROZ LABORATORYCLIA [id number] [place] [address] [place] Bilirubin [Mass/Vol] 0.4 mg/dL Normal 0.2-1.3 [facility] Comment on above: Order Comment: Speci men Type: BLOOD SPECIMENOrdering Facility: [facility] Address: [address] [place] [address] Performed By: #### 2 4323-8 ####QUIROZ LABORATORYCLIA [id number] [place] [address] [place] Calcium [Mass/Vol] 9.1 mg/dL Normal 8.5-10.2 [facility] Comment on above: Order Comment: Speci men Type: BLOOD SPECIMENOrdering Facility: [facility] Address: [address] [place] [address] Performed By: #### 2 4323-8 ####QUIROZ LABORATORYCLIA [id number] [place] [address] [place] Chloride [Moles/Vol] 99 mmol/L Normal 98-107 [facility] Comment on above: Order Comment: Speci men Type: BLOOD SPECIMENOrdering Facility: [facility] Address: [address] [place] [address] Performed By: #### 2 4323-8 ####QUIROZ LABORATORYCLIA [id number] [place] [address] [place] CO2 [Moles/Vol] 30 mmol/L Normal 22-30 [facility] Comment on above: Order Comment: Speci men Type: BLOOD SPECIMENOrdering Facility: [facility] Address: [address] [place] [address] Performed By: #### 2 4323-8 ####QUIROZ LABORATORYCLIA [id number] [place] [address] [place] Creatinine [Mass/Vol] 0.75 mg/dL Normal 0.58-0.96 [facility] Comment on above: Order Comment: Jayne almonte Type: BLOOD SPECIMENOrdering Facility: [facility] Address: [address] [place] [address] Performed By: #### 2 4323-8 ####QUIROZ LABORATORYCLIA [id number] [address] Creatinine and Glomerular filtration rate.predicted panel (S/P/Bld) 108 mL/min/1.73m??? Normal >=60 [facility] Comment on above: Order Comment: [facility] Type: BLOOD SPECIMENOrdering Facility: [facility] Address: [address] [place] [address] Result Comment: Vidhi mated Glomerular Filtration Rate (eGFR) is calculated using the 2020 CKD-EPI creatinine equation. This equation utilizes serum creatinine, sex, and age as parameters. The creatinine assay has traceable calibration to isotope dilution-mass spectrometry. Refer to KDIGO guidelines for clinical interpretation. In patients with unstable renal function, e.g. those with acute kidney injury, the eGFR may not accurately reflect actual GFR. Performed By: #### 2 4323-8 ####QUIROZ LABORATORYCLIA [id number] [address] [place] Glucose [Mass/Vol] 117 mg/dL High 74-99 [facility] Comment on above: Order Comment: Jayne [facility] Type: BLOOD SPECIMENOrdering Facility: [facility] Address: [address] [place] [address] Result Comment: The [place] [employer] (ADA) provides guidance for cutoff values for fasting glucose and random glucose. The ADA defines fasting as no caloric intake for at least 8 hours. Fasting plasma glucose results between 100 to 125 mg/dL indicate increased risk for diabetes (prediabetes). Fasting plasma glucose results greater than or equal to 126 mg/dL meet the criteria for diagnosis of diabetes. In the absence of unequivocal hyperglycemia, results should be confirmed by repeat testing. In a patient with classic symptoms of hyperglycemia or hyperglycemic crisis, random plasma glucose results greater than or equal to 200 mg/dL meet the criteria for diagnosis of diabetes. Reference: Standards of Medical Care in Diabetes 2016, [place] [employer]. Diabetes Care. 2016.39(Suppl 1). Performed By: #### 2 4323-8 ####QUIROZ LABORATORYCLIA [id number] [address] [place] Potassium [Moles/Vol] 4.9 mmol/L Normal 3.7-5.1 [facility] Comment on above: Order Comment: Speci gage Type: BLOOD SPECIMENOrdering Facility: [facility] Address: [address] [place] [address] Performed By: #### 2 4323-8 ####QUIROZ LABORATORYCLIA [id number] [address] Protein [Mass/Vol] 6.6 g/dL Normal 6.3-8.0 [facility] Comment on above: Order Comment: Speci men Type: BLOOD SPECIMENOrdering Facility: [facility] Address: [address] [place] [address] Performed By: #### 2 4323-8 ####QUIROZ LABORATORYCLIA [id number] [address] Sodium [Moles/Vol] 137 mmol/L Normal 136-144 [facility] Comment on above: Order Comment: Sethi gage Type: BLOOD SPECIMENOrdering Facility: [facility] Address: [address] [place] [address] Performed By: #### 2 4323-8 ####[facility] LABORATORYCLIA [id number] [address] [place] Urea nitrogen [Mass/Vol] 18 mg/dL Normal 7-21 [facility] Comment on above: Order Comment: Sethi men Type: BLOOD SPECIMENOrdering Facility: [facility] Address: [address] [place] [address] Performed By: #### 2 4323-8 ####QUIR[facility]Z LABORATORYCLIA [id number] [address] [place] ALLIED HEALTHon 10-18-2024 ALLIED HEALTH HNO ID: [id number] Author: FAUSTINO NICE CT Service: Radiology Author Type: Technologist Type: Allied Health Filed: 10/18/2024 12:49 Note Text: Radiology Service Progress Note PATIENT NAME: Carine Barba DATE OF SERVICE: October 18, 2024 TIME: 12:48 PM PATIENT IDENTITY VERIFICATION COMPLETED USING TWO (2) IDENTIFIERS: Name and Date of confirmed by patient verbally and Name and Date of confirmed by identification band. FALL SCREENING: Has the patient had 2 falls in the last year or 1 fall with injury or currently using an Ambulatory Assistive Device (Walker, Cane, Wheelchair, Crutches, etc.)? Emergency Room Patient: Screened in ED PATIENT GENDER DATA: Female. status: : No status: NO. PATIENT RELEVANT IMPLANT DATA REVIEWED: Not Applicable PATIENT PRESENTS WITH AN IMPLANTABLE OR ATTACHED CREDIT REVIEW ANALYST: No RADIOLOGY DEPARTMENT: CT; Exam(s) Completed: PE Study PERIPHERAL IV DATA: Inpatient: see LDA documentation SIGNED BY: FABIO Givens October 18, 2024 12:48 PM [facility] HNO ID: [id number] Author: IDALIA LOPEZ RT([place]) Service: Radiology Author Type: Abalone Processor Type: Allied Health Filed: 10/18/2024 11:48 Note Text: Radiology Service Progress Note PATIENT NAME: Carine Barba DATE OF SERVICE: October 18, 2024 TIME: 11:47 AM PATIENT IDENTITY VERIFICATION COMPLETED USING TWO (2) IDENTIFIERS: Name and Date of confirmed by patient verbally. FALL SCREENING: Has the patient had 2 falls in the last year or 1 fall with injury or currently using an Ambulatory Assistive Device (Walker, Cane, Wheelchair, Crutches, etc.)? Emergency Room Patient: Screened in ED PATIENT GENDER DATA: Female. status: : No status: NO. PATIENT RELEVANT IMPLANT DATA REVIEWED: Not Applicable PATIENT PRESENTS WITH AN IMPLANTABLE OR ATTACHED CREDIT REVIEW ANALYST: No RADIOLOGY DEPARTMENT: General X-ray: Exam(s) Completed: Chest X-Ray PERIPHERAL IV DATA: Not applicable SIGNED BY: RT Lona([place]) October 18, 2024 11:47 AM [facility] CASE MGT INIT [place] 2023 CASE MGT INIT [place] HNO ID: [id number] Author: FAWN LONGO LSW Service: ASSESSMENT Author Type: General Studies Program Chair Type: Care Mgt Initial Assessment Filed: 10/18/2024 23:23 Note Text: CARE MANAGEMENT: ASSESSMENT AND DISCHARGE PLAN SERVICE DATE: October 18, 2024 SERVICE TIME: 11:19 PM PCP: No primary care provider on file. Primary Contact: Extended Emergency Contact Information Primary Emergency Contact: Randell Scanlon Mobile Relation: Significant other Admission Status: Inpatient Insurance Provider: [facility] MEDICAID Discharge Planning requested by: Per Department Practice Potential Transition Plans Home;To Be Determined Advance Directives Current Advance Directive: Health Care Power of Rock Room Worker;Living Will In Chart: No Land Reclamation Specialist Attempted to Assist with AD Completion: Yes Action: Education Provided Current Living Arrangements and Support Lives with: Children, Spouse/significant other Type of Residence: Private Residence (House) Does the patient have to climb stairs at home?: Yes;stairs outside the home;stairs within the home (3 outside/12 inside) Support: Spouse/significant other How do you manage to accomplish the following: Independent: Ambulation;Bathe/Show er;Dress;Meals/Meal Prep;Going to the bathroom;Medication Management;Transporta tion to appointments/communit y Current Services/Equipment Current Post-Acute Service(s): None Discharge Planning Patient Goal(s): General wellness, Be able to go home [place] Explained: [place] Given: No Reason Not Given: No placements necessary Are you interested in bedside delivery of your medications? No Discharge Planning Participant(s): Patient Patient/Family Comments: Pt plans to d/c home when medically clear Caregiver Assessment: Caregiver is ready, willing and able to meet the patient's needs as recommended by the inter-professional team: No Caregiver needed Transport at Discharge: Transportation Arrangements: Car Needs Prior to Discharge: Needs Prior to Discharge: To Be Determined. Post-Acute Discharge Plan: CM reviewed EMR. Diagnosis include: Asthma. O2=RA. Pt stated that she lives with her significant other and daughter. Pt confirmed she is independent in ADL's. No services or hx of services. No equipment use. Pt uses [facility], in [place]. Sig other will p/u on d/c. CM will follow with d/c planning needs. SIGNATURE: Fawn Longo, DICK, FREDDY PATIENT NAME: Carine Barba DATE: October 18, 2024 TIME: 11:18 PM Normal [facility] CBC W Auto Differential pane l (Bld)on 10-18-2024 Basophils (Bld) [#/Vol] 10*3/uL Normal <0.11 [facility] Comment on above: Order Comment: Speci men Type: BLOOD SPECIMENOrdering Facility: [facility] Address: [address] [place] [address] Performed By: #### 5 7021-8 ####QUIROZ LABORATORYCLIA [id number] [place] [address] [place] Basophils/100 WBC (Bld) 0.2 % Normal [facility] Comment on above: Order Comment: Speci men Type: BLOOD SPECIMENOrdering Facility: [facility] Address: [address] [place] [address] Performed By: #### 5 7021-8 ####QUIR[facility]Z LABORATORYCLIA [id number] [place] [address] [place] Differential cell count method Nom (Bld) Auto Normal [facility] Comment on above: Order Comment: Speci men Type: BLOOD SPECIMENOrdering Facility: [facility] Address: [address] [place] [address] Performed By: #### 5 7021-8 ####QUIROZ LABORATORYCLIA [id number] [place] [address] [place] Eosinophils (Bld) [#/Vol] 10*3/uL Normal <0.46 [facility] Comment on above: Order Comment: Speci men Type: BLOOD SPECIMENOrdering Facility: [facility] Address: [address] [place] [address] Performed By: #### 5 7021-8 ####QUIROZ LABORATORYCLIA [id number] [place] [address] [place] Eosinophils/100 WBC (Bld) 0.0 % Normal [facility] Comment on above: Order Comment: Speci men Type: BLOOD SPECIMENOrdering Facility: [facility] Address: [address] [place] [address] Performed By: #### 5 7021-8 ####QUIROZ LABORATORYCLIA [id number] [place] [address] [place] Erythrocyte distribution width (RBC) [Ratio] 13.2 % Normal 11.5-15.0 [facility] Comment on above: Order Comment: Speci men Type: BLOOD SPECIMENOrdering Facility: [facility] Address: [address] [place] [address] Performed By: #### 5 7021-8 ####QUIROZ LABORATORYCLIA [id number] [place] [address] [place] Hematocrit (Bld) [Volume fraction] 39.6 % Normal 36.0-46.0 [facility] Comment on above: Order Comment: Speci men Type: BLOOD SPECIMENOrdering Facility: [facility] Address: [address] [place] [address] Performed By: #### 5 7021-8 ####QUIROZ LABORATORYCLIA [id number] [place] [address] [place] Hemoglobin (Bld) [Mass/Vol] 13.3 g/dL Normal 11.5-15.5 [facility] Comment on above: Order Comment: Speci men Type: BLOOD SPECIMENOrdering Facility: [facility] Address: [address] [place] [address] Performed By: #### 5 7021-8 ####QUIROZ LABORATORYCLIA [id number] [place] [address] [place] Immature granulocytes (Bld) [#/Vol] 0.03 10*3/uL Normal <0.10 [facility] Comment on above: Order Comment: Speci men Type: BLOOD SPECIMENOrdering Facility: [facility] Address: [address] [place] [address] Performed By: #### 5 7021-8 ####QUIROZ LABORATORYCLIA [id number] [address] [place] Immature granulocytes/100 WBC (Bld) 0.3 % Normal [facility] Comment on above: Order Comment: Speci men Type: BLOOD SPECIMENOrdering Facility: [facility] Address: [address] [place] [address] Performed By: #### 5 7021-8 ####QUIROZ LABORATORYCLIA [id number] [address] Lymphocytes (Bld) [#/Vol] 2.48 10*3/uL Normal 1.00-4.00 [facility] Comment on above: Order Comment: Speci men Type: BLOOD SPECIMENOrdering Facility: [facility] Address: [address] [place] [address] Performed By: #### 5 7021-8 ####QUIROZ LABORATORYCLIA [id number] [address] Lymphocytes/100 WBC (Bld) 25.1 % Normal [facility] Comment on above: Order Comment: Speci men Type: BLOOD SPECIMENOrdering Facility: [facility] Address: [address] [place] [address] Performed By: #### 5 7021-8 ####QUIROZ LABORATORYCLIA [id number] [address] MCH (RBC) [Entitic mass] 32.4 pg Normal 26.0-34.0 [facility] Comment on above: Order Comment: Speci men Type: BLOOD SPECIMENOrdering Facility: [facility] Address: [address] [place] [address] Performed By: #### 5 7021-8 ####QUIROZ LABORATORYCLIA [id number] [address] MCHC (RBC) [Mass/Vol] 33.6 g/dL Normal 30.5-36.0 [facility] Comment on above: Order Comment: Speci men Type: BLOOD SPECIMENOrdering Facility: [facility] Address: [address] [place] [address] Performed By: #### 5 7021-8 ####QUIROZ LABORATORYCLIA [id number] [address] MCV (RBC) [Entitic vol] 96.4 fL Normal 80.0-100.0 [facility] Comment on above: Order Comment: Speci men Type: BLOOD SPECIMENOrdering Facility: [facility] Address: [address] [place] [address] Performed By: #### 5 7021-8 ####QUIROZ LABORATORYCLIA [id number] [place] [address] [place] Monocytes (Bld) [#/Vol] 0.65 10*3/uL Normal <0.87 [facility] Comment on above: Order Comment: Speci men Type: BLOOD SPECIMENOrdering Facility: [facility] Address: [address] [place] [address] Performed By: #### 5 7021-8 ####QUIR[facility] LABORATORYCLIA [id number] [address] Monocytes/100 WBC (Bld) 6.6 % Normal [facility] Comment on above: Order Comment: Speci men Type: BLOOD SPECIMENOrdering Facility: [facility] Address: [address] [place] [address] Performed By: #### 5 7021-8 ####QUIROZ LABORATORYCLIA [id number] [place] [address] [place] Neutrophils (Bld) [#/Vol] 6.69 10*3/uL Normal 1.45-7.50 [facility] Comment on above: Order Comment: Speci men Type: BLOOD SPECIMENOrdering Facility: [facility] Address: [address] [place] [address] Performed By: #### 5 7021-8 ####QUIROZ LABORATORYCLIA [id number] [place] [address] [place] Neutrophils/100 WBC (Bld) 67.8 % Normal [facility] Comment on above: Order Comment: Speci men Type: BLOOD SPECIMENOrdering Facility: [facility] Address: [address] [place] [address] Performed By: #### 5 7021-8 ####QUIROZ LABORATORYCLIA [id number] [place] [address] [place] Nucleated RBC (Bld) [#/Vol] 10*3/uL Normal <0.01 [facility] Comment on above: Order Comment: Speci men Type: BLOOD SPECIMENOrdering Facility: [facility] Address: [address] [place] [address] Performed By: #### 5 7021-8 ####QUIROZ LABORATORYCLIA [id number] [address] [place] Nucleated RBC/100 WBC (Bld) [Ratio] 0.0 /100 WBC Normal [facility] Comment on above: Order Comment: Speci men Type: BLOOD SPECIMENOrdering Facility: [facility] Address: [address] [place] [address] Performed By: #### 5 7021-8 ####QUIROZ LABORATORYCLIA [id number] [address] Platelet mean volume (Bld) [Entitic vol] 9.8 fL Normal 9.0-12.7 [facility] Comment on above: Order Comment: Speci men Type: BLOOD SPECIMENOrdering Facility: [facility] Address: [address] [place] [address] Performed By: #### 5 7021-8 ####QUIROZ LABORATORYCLIA [id number] [address] [place] Platelets (Bld) [#/Vol] 250 10*3/uL Normal 150-400 [facility] Comment on above: Order Comment: Speci men Type: BLOOD SPECIMENOrdering Facility: [facility] Address: [address] [place] [address] Performed By: #### 5 7021-8 ####QUIROZ LABORATORYCLIA [id number] [address] [place] RBC (Bld) [#/Vol] 4.11 10*6/uL Normal 3.90-5.20 [facility] Comment on above: Order Comment: Speci men Type: BLOOD SPECIMENOrdering Facility: [facility] Address: [address] [place] [address] Performed By: #### 5 7021-8 ####QUIROZ LABORATORYCLIA [id number] [place] [address] [place] WBC (Bld) [#/Vol] 9.87 10*3/uL Normal 3.70-11.00 [facility] Comment on above: Order Comment: Speci men Type: BLOOD SPECIMENOrdering Facility: [facility] Address: [address] [place] [address] Performed By: #### 5 7021-8 ####[place] LABORATORYCLIA [id number] [place] [address] [facility] [place] CTA CHEST (NON GATED) W IVCO N PEon 10-18-2024 CTA CHEST (NON GATED) W IVCON PE * * *Final Report* * * DATE OF EXAM: Oct 18 2024 12:52PM [facility] 0564 - CTA CHEST (NON GATED) W IVCON PE / PROCEDURE REASON: Pulmonary embolism (PE) suspected, high prob * * * * Physician Interpretation * * * * EXAMINATION: CHEST CTA (NON GATED) WITH CONTRAST (PULMONARY EMBOLISM PROTOCOL) CLINICAL HISTORY: 34 years old Female with Pulmonary embolism (PE) suspected, high prob. Technique: Spiral CT acquisition of the chest from the thoracic inlet to the upper abdomen following IV contrast. Axial 1 and 3 mm thick slices plus coronal and sagittal reformatted images. MQ: CTCP_5 Contrast: 80 mL Omnipaque [address] Radiation dose: Integrated Dose-length product (DLP) for this visit = 365 mGy*cm CT Dose Reduction Employed: Automated exposure control(AEC) and iterative recon CTA: Post-processed images {Maximum intensity Projection (MIP), Volume-rendered (VR), or Surface shaded display images (SSD)} were created, reviewed and archived. Comparison: No relevant prior studies available. RESULT: Limitations: None. Evaluation for thromboembolic disease: - Right heart chambers: No thromboembolic disease. - Main pulmonary arteries: No thromboembolic disease. - Lobar pulmonary arteries: No thromboembolic disease. - Segmental pulmonary arteries: No thromboembolic disease. - Subsegmental pulmonary arteries: No thromboembolic disease. - Additional pulmonary artery findings: The main pulmonary artery is normal in caliber. Lines, tubes, and devices: None. Lung parenchyma and airways: Bronchial wall thickening with areas of mucous plugging within the distal bronchi and scattered ill-defined centrilobular micronodules secondary to infectious/inflammato ry bronchitis/bronchioli tis. Multifocal patchy groundglass opacities throughout both lungs most prominent in the LEFT upper lobe likely secondary to atypical/viral pneumonia. No endobronchial lesion. No consolidation. Pleural space: No pleural effusion. No pleural thickening. Lower neck, lymph nodes, and mediastinum: Evaluation of the lower neck is limited due to beam hardening artifact from hardware in the LEFT clavicle. Borderline enlarged 1.2 cm in short axis RIGHT hilar node (image 110), 1 cm in short axis LEFT hilar node (image 124), 1.1 cm in short axis subcarinal node (image 122) and additional (short axis diameter <10 mm) mediastinal and hilar nodes are nonspecific and probably reactive. Esophagus is nondilated. Heart, pericardium, and thoracic vessels: The thoracic aorta is normal in caliber. The cardiac chambers are normal in size. No coronary artery atherosclerotic calcifications are noted, although the study is not optimized for coronary assessment. No pericardial effusion or thickening. Bones and soft tissues: Bilateral prepectoral breast implants. Upper abdomen: Limited evaluation of the imaged upper abdomen demonstrates no significant finding. Localizer images: No additional findings. IMPRESSION: No CT evidence of pulmonary embolism. Bronchial wall thickening with areas of mucous plugging within the distal bronchi and scattered ill-defined centrilobular micronodules secondary to infectious/inflammato ry bronchitis/bronchioli tis. Multifocal patchy groundglass opacities throughout both lungs most prominent in the LEFT upper lobe likely secondary to atypical/viral pneumonia. Beef Boner: MARCIN Transcribe Date/Time: Oct 18 2024 12:56P Dictated by : ROGELIO RIDER DO This examination was interpreted and the report reviewed and electronically signed by: ROGELIO RIDER DO on Oct 18 2024 1:14PM EST [id number] Normal [facility] Comprehensive metabolic 2000 panelon 10-18-2024 Albumin [Mass/Vol] 4.0 g/dL Normal 3.9-4.9 [facility] Comment on above: Order Comment: Speci men Type: BLOOD SPECIMENOrdering Facility: [facility] Address: [address] [place] [address] Performed By: #### 2 4323-8, [id number] ####QUIROZ LABORATORYCLIA [id number] [place] [address] [place] ALP [Catalytic activity/Vol] 87 U/L Normal 34-123 [facility] Comment on above: Order Comment: Speci men Type: BLOOD SPECIMENOrdering Facility: [facility] Address: [address] [place] [address] Performed By: #### 2 4323-8, [id number] ####QUIROZ LABORATORYCLIA [id number] [place] [address] [place] ALT [Catalytic activity/Vol] 24 U/L Normal 7-38 [facility] Comment on above: Order Comment: Speci men Type: BLOOD SPECIMENOrdering Facility: [facility] Address: [address] [place] [address] Performed By: #### 2 4323-8, [id number] ####QUIR[facility] LABORATORYCLIA [id number] [place] [address] [place] Anion gap [Moles/Vol] 9 mmol/L Normal 8-15 [facility] Comment on above: Order Comment: Speci men Type: BLOOD SPECIMENOrdering Facility: [facility] Address: [address] [place] [address] Performed By: #### 2 4323-8, [id number] ####QUIRO[facility] LABORATORYCLIA [id number] [place] [address] [place] AST [Catalytic activity/Vol] 29 U/L Normal 13-35 [facility] Comment on above: Order Comment: Speci men Type: BLOOD SPECIMENOrdering Facility: [facility] Address: [address] [place] [address] Performed By: #### 2 4323-8, [id number] ####QUIROZ LABORATORYCLIA [id number] [place] [address] [place] Bilirubin [Mass/Vol] 0.4 mg/dL Normal 0.2-1.3 [facility] Comment on above: Order Comment: Speci men Type: BLOOD SPECIMENOrdering Facility: [facility] Address: [address] [place] [address] Performed By: #### 2 4323-8, [id number] ####QUIROZ LABORATORYCLIA [id number] [place] [address] [place] Calcium [Mass/Vol] 9.2 mg/dL Normal 8.5-10.2 [facility] Comment on above: Order Comment: Speci men Type: BLOOD SPECIMENOrdering Facility: [facility] Address: [address] [place] [address] Performed By: #### 2 4323-8, [id number] ####QUIR[facility] LABORATORYCLIA [id number] [place] [address] [place] Chloride [Moles/Vol] 99 mmol/L Normal 98-107 [facility] Comment on above: Order Comment: Speci men Type: BLOOD SPECIMENOrdering Facility: [facility] Address: [address] [place] [address] Performed By: #### 2 4323-8, [id number] ####[facility] LABORATORYCLIA [id number] [place] [address] [place] CO2 [Moles/Vol] 29 mmol/L Normal 22-30 [facility] Comment on above: Order Comment: Speci men Type: BLOOD SPECIMENOrdering Facility: [facility] Address: [address] [place] [address] Performed By: #### 2 4323-8, [id number] ####[facility] LABORATORYCLIA [id number] [place] [address] [place] Creatinine [Mass/Vol] 0.69 mg/dL Normal 0.58-0.96 [facility] Comment on above: Order Comment: Speci men Type: BLOOD SPECIMENOrdering Facility: [facility] Address: [address] [place] [address] Performed By: #### 2 4323-8, [id number] ####[facility] LABORATORYCLIA [id number] [place] [address] [facility] [place] Creatinine and Glomerular filtration rate.predicted panel (S/P/Bld) 118 mL/min/1.73m??? Normal >=60 [facility] Comment on above: Order Comment: Speci men Type: BLOOD SPECIMENOrdering Facility: [facility] Address: [address] [place] [address] Result Comment: Vidhi mated Glomerular Filtration Rate (eGFR) is calculated using the 2020 CKD-EPI creatinine equation. This equation utilizes serum creatinine, sex, and age as parameters. The creatinine assay has traceable calibration to isotope dilution-mass spectrometry. Refer to KDIGO guidelines for clinical interpretation. In patients with unstable renal function, e.g. those with acute kidney injury, the eGFR may not accurately reflect actual GFR. Performed By: #### 2 4323-8, [id number] ####QU[facility] LABORATORYCLIA [id number] [place] [address] [place] Glucose [Mass/Vol] 92 mg/dL Normal 74-99 [facility] Comment on above: Order Comment: Jayne almonte Type: BLOOD SPECIMENOrdering Facility: [facility] Address: [address] [place] [id number] Result Comment: The [place] [employer] (ADA) provides guidance for cutoff values for fasting glucose and random glucose. The ADA defines fasting as no caloric intake for at least 8 hours. Fasting plasma glucose results between 100 to 125 mg/dL indicate increased risk for diabetes (prediabetes). Fasting plasma glucose results greater than or equal to 126 mg/dL meet the criteria for diagnosis of diabetes. In the absence of unequivocal hyperglycemia, results should be confirmed by repeat testing. In a patient with classic symptoms of hyperglycemia or hyperglycemic crisis, random plasma glucose results greater than or equal to 200 mg/dL meet the criteria for diagnosis of diabetes. Reference: Standards of Medical Care in Diabetes 2016, [place] [employer]. Diabetes Care. 2016.39(Suppl 1). Performed By: #### 2 4323-8, [id number] ####QU[facility] LABORATORYCLIA [id number] [place] [address] [place] Potassium [Moles/Vol] 3.4 mmol/L Low 3.7-5.1 [facility] Comment on above: Order Comment: Jayne almonte Type: BLOOD SPECIMENOrdering Facility: [facility] Address: [address] [place] [address] Performed By: #### 2 4323-8, [id number] ####QU[facility] LABORATORYCLIA [id number] [place] [address] [place] Protein [Mass/Vol] 6.9 g/dL Normal 6.3-8.0 [facility] Comment on above: Order Comment: Speci men Type: BLOOD SPECIMENOrdering Facility: [facility] Address: [address] [facility] [place] [address] Performed By: #### 2 4323-8, [id number] ####[facility] LABORATORYCLIA [id number] [address] [place] [facility] Sodium [Moles/Vol] 137 mmol/L Normal 136-144 [facility] [facility] Comment on above: Order Comment: Speci men Type: BLOOD SPECIMENOrdering Facility: [facility] Address: [address] [place] [address] Performed By: #### 2 4323-8, [id number] ####[facility] LABORATORYCLIA [id number] [address] [place] Urea nitrogen [Mass/Vol] 14 mg/dL Normal 7-21 [facility] Comment on above: Order Comment: Speci men Type: BLOOD SPECIMENOrdering Facility: [facility] Address: [address] [place] [address] Performed By: #### 2 4323-8, [id number] ####[facility] LABORATORYCLIA [id number] [address] [place] ECG COMPLETEon 10-18-2024 ECG COMPLETE Ventricular Rate : 8 7 BPM Atrial Rate : 87 BPM P-R Interval : 144 ms QRS Duration : 90 ms Q-T Interval : 356 ms QTC Calculation(Bazett) : 428 ms Calculated P [place] : 79 degrees Calculated R [place] : 82 degrees Calculated T [place] : 52 degrees NORMAL SINUS RHYTHM WITH SINUS ARRHYTHMIA NONSPECIFIC T WAVE ABNORMALITY ABNORMAL ECG NO STEMI Confirmed by Dmitry VAZQUEZ ERIKA ([id number]), newspaper editor ABEL KIRK ([id number]) on 10/19/2024 9:44:13 AM NAME : CARINE BARBA PID : [id number] : 1990 Gender : Female Race : ORD : [id number] Procedure Date : Oct 18 2024 11:44:25 Edit Date : Oct 19 2024 09:44:16 Diagnosis: NORMAL SINUS RHYTHM WITH SINUS ARRHYTHMIA NONSPECIFIC T WAVE ABNORMALITY ABNORMAL ECG NO STEMI Confirmed by Dmitry VAZQUEZ ERIKA ([id number]), newspaper editor ABEL KIRK ([id number]) on 10/19/2024 9:44:13 AM Test Reason : Chest Pain Location : 1 : ER ED Overread By : Dmitry VAZQUEZ ERIKA Edited By : ABEL KIRK Referred By : , Acquired by : , [facility] ED PROV NOTEon 10-18-2024 ED PROV NOTE HNO ID: [id number] Author: VIVIEN ABDI DO Service: Emergency Medicine Author Type: Physician Type: ED Provider Notes Filed: 10/18/2024 15:49 Note Text: ED CONTINUATION OF CARE NOTE Code Status: Full Code Assumed care from: Dr. Vazquez Presentation / Findings / Interventions / Plan / Items to Follow Up: Signed out to me pending bed. She is admitted for asthma exacerbation. Just prior to going to the floor patient does develop nausea and vomiting. Is given a dose of Zofran. Clinical Impressions as of 10/18/24 1548 Severe asthma with exacerbation, unspecified whether persistent Other pneumonia, unspecified organism SOB (shortness of breath) Medical Decision Making SIGNATURE: Vivien Abdi DO PATIENT NAME: Carine Barba DATE: October 18, 2024 TIME: 3:48 PM PAGER/CONTACT #: VIVIEN ABDI 10/18/24 1549 [facility] ED PROV NOTE HNO ID: [id number] Author: ANA VAZQUEZ MD Service: ? Author Type: Physician Type: ED Provider Notes Filed: 10/18/2024 13:44 Note Text: ED Provider Note Patient Name: Carine Barba : 1990 SERVICE DATE: 10/18/24 History Patient presents with: Asthma: pt was seen multiple times and was admitted ([place])and left. and states they were not nice to her and she was getting worse and so she left and now states she still can't breath. 34-year-old female with history of asthma and DVT who presents with increasing shortness of breath, cough, and wheezing. Patient was seen at [facility] on the and overnight for the same. Both times she received nebulizer treatments and steroids. She has got progressively worse since then and feels she needs to be admitted. The patient admits to cough and congestion as well. 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 Respiratory: Positive for cough, chest tightness and shortness of breath. Cardiovascular: Negative for leg swelling. Gastrointestinal: Negative for abdominal pain. Genitourinary: Negative for difficulty urinating. Skin: Negative for color change and pallor. Neurological: Negative for weakness and headaches. Psychiatric/Behaviora l: Negative for agitation and behavioral problems. Physical Exam Vitals [10/18/24 1018] BP Pulse Temp Temp src Resp SpO2 Weight Height 131/87 87 36.7 ?C (98 ?F) Oral 18 97 % 77.1 kg (170 lb) -- Physical Exam Vitals and nursing note reviewed. Constitutional: General: She is not in acute distress. Appearance: Normal appearance. She is well-developed. HENT: Head: Normocephalic and atraumatic. Right Ear: External ear normal. Left Ear: External ear normal. Nose: Nose normal. Mouth/Throat: Mouth: Mucous membranes are moist. Pharynx: Oropharynx is clear. Eyes: Conjunctiva/sclera: Conjunctivae normal. Pupils: Pupils are equal, round, and reactive to light. Cardiovascular: Rate and Rhythm: Normal rate and regular rhythm. Heart sounds: Normal heart sounds. No murmur heard. Pulmonary: Effort: Pulmonary effort is normal. Tachypnea present. No respiratory distress. Breath sounds: Decreased air movement present. No stridor. Examination of the right-middle field reveals wheezing. Examination of the left-middle field reveals wheezing. Examination of the right-lower field reveals wheezing. Examination of the left-lower field reveals wheezing. Decreased breath sounds and wheezing present. No rales. Chest: Chest wall: No tenderness. Abdominal: General: Bowel sounds are normal. There is no distension. Palpations: Abdomen is soft. Tenderness: There is no abdominal tenderness. There is no rebound. Musculoskeletal: General: No tenderness. Normal range of motion. Cervical back: Normal range of motion and neck supple. Lymphadenopathy: Cervical: No cervical adenopathy. Skin: General: Skin is warm and dry. Capillary Refill: Capillary refill takes less than 2 seconds. Findings: No erythema or rash. Neurological: General: No focal deficit present. Mental Status: She is alert and oriented to person, place, and time. Cranial Nerves: No cranial nerve deficit. Psychiatric: Behavior: Behavior normal. Thought Content: Thought content normal. Judgment: Judgment normal. Diagnostic Testing ED Labs Ordered and Reviewed COMPREHENSIVE METABOLIC PANEL - Abnormal; Notable for the following components: Result Value Ref Range Potassium 3.4 (*) 3.7 - 5.1 mmol/L All other components within normal limits HIGH SENSITIVITY TROPONIN T (INITIAL) - Normal COMPLETE BLOOD COUNT AND DIFFERENTIAL HIGH SENSITIVITY TROPONIN T (SECOND) COVID AND INFLUENZA A/B AND RSV PCR, EXPEDITED Procedures ED Course / Clinical Impression Clinical Impressions as of 10/18/24 1339 Severe asthma with exacerbation, unspecified whether persistent Other pneumonia, unspecified organism SOB (shortness of breath) MDM / Disposition / Plan 34-year-old female with history of asthma who presents with increasing shortness (more content not included)... Normal [facility] HCG Preg Ur Qlon 10-18-2024 HCG ( test) Ql (U) Negative Normal Negative [facility] Comment on above: Order Comment: Speci men Type: URINE SPECIMENOrdering Facility: [facility] Address: [address] [place] [address] Result Comment: This test is intended to aid in the early detection of . Very dilute urine samples, as indicated by a low specific gravity, may not contain vaccine customer representative levels of hCG. This test detects intact hCG only. This test does not reliably detect hCG degradation products, including free-beta subunit and beta-core fragment. Therefore, this test may show reduced reactivity in urine after 8 weeks gestation. A number of conditions other than , including trophoblastic disease and certain non-trophoblastic neoplasms cause elevated levels of hCG. As with any assay employing mouse antibodies, the possibility exists for interference by human anti-mouse antibodies (HAMA) in the specimen. The test provides a presumptive diagnosis for . Performed By: #### 2 106-3 ####[facility] LABORATORYCLIA [id number] [address] HIGH SENSITIVITY TROPONIN T (INITIAL)on 10-18-2024 Troponin T.cardiac High sensitivity method [Mass/Vol] <6 Normal <12 [facility] Comment on above: Order Comment: Speci men Type: BLOOD SPECIMENOrdering Facility: [facility] Address: [address] [place] [address] Performed By: #### 2 4323-8, [id number] ####[facility] LABORATORYCLIA [id number] [address] HIGH SENSITIVITY TROPONIN T (SECOND)on 10-18-2024 Troponin T.cardiac High sensitivity method [Mass/Vol] <6 Normal <12 [facility] Comment on above: Order Comment: Speci men Type: BLOOD SPECIMENOrdering Facility: [facility] Address: [address] [place] [address] Performed By: #### L [id number], 65805-2 ####[facility] LABORATORYCLIA [id number] [address] HISTORY PHYSICALon HISTORY PHYSICAL HNO ID: [id number] Author: SUNIL ROMERO MD Service: General Internal Medicine Author Type: Physician Type: H&P Filed: 10/18/2024 20:40 Note Text: [facility] STAFF PHYSICIAN NOTE OF PERSONAL INVOLVEMENT IN CARE I have reviewed the history and physical examination obtained and documented by the nurse practitioner and I personally participated in the hickman components. I have discussed the case and management of the patient's care. The following comments revise or confirm relevant hickman components of their note. IMPRESSION: This is a 34 year old female who presents with asthma exacerbation and pneumonia. PLAN: Start steroids and antibiotics. Plan of care discussed with Provider, RN, Patient CARE COORDINATION: The majority of the visit was spent counseling and/or coordinating care for the patient. Vrpx-fz-swft time was 35 minutes SIGNATURE: Sunil Romero MD DATE of SERVICE: October 18, 2024 TIME of SERVICE: 8:38 PM History and Physical Examination SERVICE DATE: 10/18/2024 SERVICE TIME: 1745 PCP: No primary care provider on file. PRIMARY ATTENDING: Sunil Fish MD Subjective CHIEF COMPLAINT: Asthma (pt was seen multiple times and was admitted ([place]and left. and states they were not nice to her and she was getting worse and so she left and now states she still can't breath. ) HPI: Patient is a 34-year-old female presenting from the ER for evaluation of for shortness of breath. Patient with a PMH of asthma and DVT. Patient noted to have recently been admitted to [facility] for similar concerns with breathing treatments and steroids. She states that her symptoms have progressively worsened since leaving [facility]. She reports ongoing shortness of breath with associated cough and congestion which initially started 4 days ago. She reports he cough as productive with thick yellowish sputum. She reports associated chest pain associated with her cough and deep breathing. She reports wheezing and chest tightness which she states she typically gets when she has asthma exacerbations. She reports history of intubation related to severe asthma exacerbation. She denies fever, chills, abdominal pain, vomiting, diarrhea, constipation, or urinary symptoms. She reports having an episode of nausea while in ER which has since resolved. ED workup: Labs and imaging in ER remarkable for potassium-3.4, Influenza A positive. EKG showing NSR with sinus arrythmia. CXR showing patchy LEFT greater than RIGHT bilateral infrahilar opacities suggestive of pneumonia. CTA chest showing no CT evidence of pulmonary embolism. Bronchial wall thickening with areas of mucous plugging within the distal bronchi and scattered ill-defined centrilobular micronodules secondary to infectious/inflammato ry bronchitis/bronchioli tis. Multifocal patchy groundglass opacities throughout both lungs most prominent in the LEFT upper lobe likely secondary to atypical/viral pneumonia. Administered in ER include PO Azithromycin 500 mg, IV Rocephin 1 g, albuterol x 2, DuoNeb x 1, PO Ativan 0.5 mg, IV Mag sulfate 2 g, IV Solumedrol 125 mg, IV Zofran 4 mg. 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 ALLERGIES Allergen Reactions Duracef [Cefadroxil] GI Upset Splotchy face Prior to Admission Medications Prescriptions Last Dose Informant Patient Reported? Taking? SYMBICORT 80-4.5 mcg/actuation inhaler Unknown Yes No VENTOLIN HFA 90 mcg/actuation inhaler Unknown Yes No Facility-Administered Medications: None REVIEW OF SYSTEMS: Review of Systems Constitutional: Negative for activity change, appetite change, chills, fatigue and fever. HENT: Positive for congestion. Negative for rhinorrhea and sore throat. Eyes: Negative. Respiratory: Positive for cough, chest tightness, shortness of breath and wheezing. Cardiovascular: Positive for chest pain. Negative for leg swelling. Chest pain with coughing and deep breathing Gastrointestinal: Negative for abdominal pain, constipation, diarrhea, nausea and vomiting. Endocrine: Negative. Genitourinary: Negative for dysuria, fr (more content not included)... Normal [facility] Legionella Ag Ur Qlon 2023 Legionella sp Ag Ql (U) Negative Normal Negative [facility] Comment on above: Order Comment: Speci men Type: URINE SPECIMENOrdering Facility: [facility] Address: [facility] [place] [address] Result Comment: Legi onella urinary antigen test is used as an aid in diagnosis of infection with Legionella pneumophila serogroup 1. It may be detected from a few days to several months after onset of signs and symptoms despite antibiotic therapy or disease resolution. A negative result cannot exclude Legionellosis. Clinical correlation is required. Performed By: #### 3 2781-7 ####[facility] LABCLIA [id number] [facility] [id number] [address] [place] Procalcitonin SerPl-mCncon 1 2-26-2024 Procalcitonin [Mass/Vol] ng/mL Normal <0.09 [facility] Comment on above: Order Comment: Speci men Type: BLOOD SPECIMENOrdering Facility: [facility] Address: [address] [place] [address] Result Comment: For a guided interpretation of test results, please visit the Change in Procalcitonin Calculator, [email or web address]. Performed By: #### L [id number], 65356-0 ####[facility] LABORATORYCLIA [id number] [place] [address] [place] STAPHYLOCOCCUS AUREUS AND MR SA SCREEN, PCR, NASALon 10-18-2024 S. aureus and MRSA panel DAJA+probe (Nose) Not detected Normal Not Detected [facility] Comment on above: Order Comment: Speci men Type: SWABOrdering Facility: [facility] Address: [address] [place] [address] Performed By: #### S APCR ####[facility] LABCLIA [id number] [place] [address] [place] STREPTOCOCCUS PNEUMONIAE ANT IGEN URINEon 10-18-2024 STREPTOCOCCUS PNEUMONIAE ANTIGEN URINE STREP PNEUMO AG RESULT: Negative for Streptococcus pneumoniae antigen. Presumptive negative for pneumococcal pneumonia, suggesting no current or recent pneumococcal infection. Infection due to S.pneumoniae cannot be ruled out since the antigen present in the sample may be below the detection limit of the test. Normal [facility] Comment on above: Performed By: #### S PNAG ####[facility] LABCLIA [id number] [place] [address] [place] XR CHEST 1V FRONTAL PORTon 1 12-19-2023 XR CHEST 1V FRONTAL PORT * * *Final Report* * * DATE OF EXAM: Oct 18 2024 11:30AM MDX [id number] - XR CHEST 1V FRONTAL PORT / PROCEDURE REASON: Shortness of breath * * * * Physician Interpretation * * * * EXAMINATION: CHEST RADIOGRAPH (PORTABLE SINGLE VIEW AP) Exam Date/Time: 10/18/2024 11:30 AM PATIENT/TECHNOLOGIST PROVIDED HISTORY: shortness of breath CLINICAL HISTORY: 34 years old Female with Shortness of breath MQ: XCPR_5 Comparison: None. RESULT: Lines, tubes, and devices: None. Lungs and pleura: Patchy LEFT greater than RIGHT bilateral infrahilar opacities suggestive of pneumonia. No discernible pleural effusion or pneumothorax. Cardiomediastinal silhouette: Normal cardiomediastinal silhouette. Other: Remote ORIF of LEFT clavicle with plate and screws. IMPRESSION: Patchy LEFT greater than RIGHT bilateral infrahilar opacities suggestive of pneumonia. Beef Boner: MARCIN Transcribe Date/Time: Oct 18 2024 11:48A Dictated by : ROGELIO RIDER DO This examination was interpreted and the report reviewed and electronically signed by: ROGELIO RIDER DO on Oct 18 2024 11:49AM EST [id number] N Normal [facility] CBC W/Diff, Automatedon 12-2 Absolute Neut Normal 2.0-7.7 [facility] Comment on above: Result Comment: PT D ISCHARGED Performed By: #### L 500.4050, L100.0100 #### [facility] [address] [place], [address] HCT Normal 37-47 [facility] Comment on above: Result Comment: PT D ISCHARGED Performed By: #### L 500.4050, L100.0100 #### [facility] [address] [place], [address] HGB Normal 12.0-15.0 [facility] Comment on above: Result Comment: PT D ISCHARGED Performed By: #### L 500.4050, L100.0100 #### [facility] [address] [place], [address] MCH Normal 27.0-32.0 [facility] Comment on above: Result Comment: PT D ISCHARGED Performed By: #### L 500.4050, L100.0100 #### [facility] [address] [place], [address] MCHC Normal 32-36 [facility] Comment on above: Result Comment: PT D ISCHARGED Performed By: #### L 500.4050, L100.0100 #### [facility] [address] [place], [address] MCV Normal 81-99 [facility] Comment on above: Result Comment: PT D ISCHARGED Performed By: #### L 500.4050, L100.0100 #### [facility] [address] [place], [address] NEUT% Normal 47-70 [facility] Comment on above: Result Comment: PT D ISCHARGED Performed By: #### L 500.4050, L100.0100 #### [facility] [address] [place], [address] PLT Normal 150-450 [facility] Comment on above: Result Comment: PT D ISCHARGED Performed By: #### L 500.4050, L100.0100 #### [facility] [address] [place], [address] RBC Normal 4.2-5.4 [facility] Comment on above: Result Comment: PT D ISCHARGED Performed By: #### L 500.4050, L100.0100 #### [facility] [address] [place], [address] RDW CV Normal 11.6-14.6 [facility] Comment on above: Result Comment: PT D ISCHARGED Performed By: #### L 500.4050, L100.0100 #### [facility] [address] [place], [address] RDW SD Normal 35.1-43.9 [facility] Comment on above: Result Comment: PT D ISCHARGED Performed By: #### L 500.4050, L100.0100 #### [facility] [address] [place], [address] WBC Normal 4.4-11.0 [facility] Comment on above: Result Comment: PT D ISCHARGED Performed By: #### L 500.4050, L100.0100 #### [facility] [address] [place], [address] Comprehensive Metabolic Prof ilon 10-17-2024 ALB Normal 3.2-5.0 [facility] Comment on above: Result Comment: PT D ISCHARGED Performed By: #### L 500.4050, L100.0100 #### [facility] [address] [place], [address] ALK P Normal 45-117 [facility] Comment on above: Result Comment: PT D ISCHARGED Performed By: #### L 500.4050, L100.0100 #### [facility] [address] [place], [address] ALT Normal 13-56 [facility] Comment on above: Result Comment: PT D ISCHARGED Performed By: #### L 500.4050, L100.0100 #### [facility] [address] [place], [address] AST Normal 15-37 [facility] Comment on above: Result Comment: PT D ISCHARGED Performed By: #### L 500.4050, L100.0100 #### [facility] [address] [place], [address] BUN Normal 7-18 [facility] Comment on above: Result Comment: PT D ISCHARGED Performed By: #### L 500.4050, L100.0100 #### [facility] [address] [place], [address] BUN/CRE Normal 10-20 [facility] Comment on above: Result Comment: PT D ISCHARGED Performed By: #### L 500.4050, L100.0100 #### [facility] [address] [place], [address] CA,Total Normal 8.5-10.1 [facility] Comment on above: Result Comment: PT D ISCHARGED Performed By: #### L 500.4050, L100.0100 #### [facility] [address] [place], [address] CL Normal 98-107 [facility] Comment on above: Result Comment: PT D ISCHARGED Performed By: #### L 500.4050, L100.0100 #### [facility] [address] [place], [address] CO2 Normal 21.0-32.0 [facility] Comment on above: Result Comment: PT D ISCHARGED Performed By: #### L 500.4050, L100.0100 #### [facility] [address] [place], [address] CREAT,SERUM Normal 0.55-1.02 [facility] Comment on above: Result Comment: PT D ISCHARGED Performed By: #### L 500.4050, L100.0100 #### [facility] [address] [place], [address] EST GFR Normal >60 [facility] Comment on above: Result Comment: PT D ISCHARGED Performed By: #### L 500.4050, L100.0100 #### [facility] [address] [place], [address] EST GFR - AA Normal >60 [facility] Comment on above: Result Comment: PT D ISCHARGED Performed By: #### L 500.4050, L100.0100 #### [facility] [address] [place], [address] GAP Normal 5-15 [facility] Comment on above: Result Comment: PT D ISCHARGED Performed By: #### L 500.4050, L100.0100 #### [facility] [address] [place], [address] GLU Normal 74-106 [facility] Comment on above: Result Comment: PT D ISCHARGED Performed By: #### L 500.4050, L100.0100 #### [facility] [address] [place], [address] Potassium Normal 3.5-5.1 [facility] Comment on above: Result Comment: PT D ISCHARGED Performed By: #### L 500.4050, L100.0100 #### [facility] [address] [place], [address] T BILI Normal 0.20-1.00 [facility] Comment on above: Result Comment: PT D ISCHARGED Performed By: #### L 500.4050, L100.0100 #### [facility] [address] [place], [address] T PROT Normal 6.4-8.2 [facility] Comment on above: Result Comment: PT D ISCHARGED Performed By: #### L 500.4050, L100.0100 #### [facility] [address] [place], [address] Comprehensive Metabolic Profil Normal 136-145 [facility] Comment on above: Result Comment: PT D ISCHARGED Performed By: #### L 500.4050, L100.0100 #### [facility] [address] [place], [address] 12 Lead EKGon 10-16-2024 12 Lead EKG [facility] [address] [place] [address] 12 Lead EKG 10/16/24 0106 MR#: [id number] Acct: [id number] Name: CARINE BARBA Rep #: [id number] : 1990 34 From: Fly Love MD Attending Dr: Dr. Arjun Lagunas, DO Status: DEP ER Ordering Dr: Arjun Lagunas DO Date: 10/16/24 Location: ED Sex: F C Admitted: Test Reason : DYSRHYTHMIA Blood Pressure : */* mmHG Vent. Rate : 98 BPM Atrial Rate : 98 BPM P-R Int : 148 ms QRS Dur : 88 ms QT Int : 408 ms P-R-T Axes : 83 81 72 degrees QTcB Int : 520 ms Normal sinus rhythm Possible Left atrial enlargement Nonspecific T wave abnormality Abnormal ECG Confirmed by KAMI TRUJILLO, FLY ([id number]), newspaper editor STEPH FAGAN ([id number]) on 10/18/2024 2:25:59 PM Referred By: TB Confirmed By: FLY LOVE MD 10/18/24 142 Date Fly Love MD CC: Dr. Arjun Lagunas, DO; No Primary Care Physician Signed Normal [facility] Basic Metabolic Profile (BMP )on 10-16-2024 BUN/CRE 17.3 RATIO Normal 10-20 [facility] Comment on above: Performed By: #### L 500.2500, L100.0100 #### [facility] [address] [place], [address] CA,Total 9.2 mg/dL Normal 8.5-10.1 [facility] Comment on above: Performed By: #### L 500.2500, L100.0100 #### [facility] [address] [place], [address] Chloride [Moles/Vol] 105 mmol/L Normal 98-[address] [facility] Comment on above: Performed By: #### L 500.2500, L100.0100 #### [facility] [address] [place], [address] CO2 [Moles/Vol] 27.0 mmol/L Normal 21.0-32.0 [facility] Comment on above: Performed By: #### L 500.2500, L100.0100 #### [facility] [address] [place], [address] Creatinine [Mass/Vol] 0.87 mg/dL Normal 0.55-1.02 [facility] Comment on above: Result Comment: The validity of the calculated GFR GFRAA in patients over 70 years has not been determined. Clinical correlation is essential. Performed By: #### L 500.2500, L100.0100 #### [facility] [address] [place], [address] ECRCL 98.33 ml/min Normal [facility] Comment on above: Performed By: #### L 500.2500, L100.0100 #### [facility] [address] [place], [address] EST GFR - AA 96 mL/min Normal >60 [facility] Comment on above: Result Comment: Afri can Filipino GFR Calc Performed By: #### L 500.2500, L100.0100 #### [facility] [address] [place], [address] GAP 6 Normal 5-15 [facility] Comment on above: Performed By: #### L 500.2500, L100.0100 #### [facility] [address] [place], [address] GFR/1.73 sq M.predicted among non-blacks MDRD (S/P/Bld) [Vol rate/Area] 80 mL/min/{1.73_m2} Normal >60 [facility] Comment on above: Result Comment: Non- GFR Calc Performed By: #### L 500.2500, L100.0100 #### [facility] [address] [place], [address] Glucose [Mass/Vol] 122 mg/dL High 74-106 [facility] Comment on above: Result Comment: Fast ing Glucose result from 100 to 125 mg/dL suggests IMPAIRED HOMEOSTASIS per A.D.A. criteria. Performed By: #### L 500.2500, L100.0100 #### [facility] [address] [place], [address] Potassium [Moles/Vol] 3.8 mmol/L Normal 3.5-5.1 [facility] Comment on above: Performed By: #### L 500.2500, L100.0100 #### [facility] [address] [place], [address] Sodium [Moles/Vol] 138 mmol/L Normal 136-145 [facility] Comment on above: Performed By: #### L 500.2500, L100.0100 #### [facility] [address] [place], [address] Urea nitrogen [Mass/Vol] 15 mg/dL Normal 7-18 [facility] Comment on above: Performed By: #### L 500.2500, L100.0100 #### [facility] [address] [place], [address] BUN/CRE 13.3 RATIO Normal 10-20 [facility] Comment on above: Performed By: #### L 500.2500, L100.0100 #### [facility] [address] [place], [address] CA,Total 9.3 mg/dL Normal 8.5-10.1 [facility] Comment on above: Performed By: #### L 500.2500, L100.0100 #### [facility] [address] [place], [address] Chloride [Moles/Vol] 103 mmol/L Normal 98-[address] [facility] Comment on above: Performed By: #### L 500.2500, L100.0100 #### [facility] [address] [place], [address] CO2 [Moles/Vol] 28.0 mmol/L Normal 21.0-32.0 [facility] Comment on above: Performed By: #### L 500.2500, L100.0100 #### [facility] [address] [place], [address] Creatinine [Mass/Vol] 0.98 mg/dL Normal 0.55-1.02 [facility] Comment on above: Result Comment: The validity of the calculated GFR GFRAA in patients over 70 years has not been determined. Clinical correlation is essential. Performed By: #### L 500.2500, L100.0100 #### [facility] [address] [place], [address] ECRCL 87.08 ml/min Normal [facility] Comment on above: Performed By: #### L 500.2500, L100.0100 #### [facility] [address] [place], [address] EST GFR - AA 84 mL/min Normal >60 [facility] Comment on above: Result Comment: Afri can Filipino GFR Calc Performed By: #### L 500.2500, L100.0100 #### [facility] [address] [place], [address] GAP 7 Normal 5-15 [facility] Comment on above: Performed By: #### L 500.2500, L100.0100 #### [facility] [address] [place], [address] GFR/1.73 sq M.predicted among non-blacks MDRD (S/P/Bld) [Vol rate/Area] 69 mL/min/{1.73_m2} Normal >60 [facility] Comment on above: Result Comment: Non- GFR Calc Performed By: #### L 500.2500, L100.0100 #### [facility] [address] [place], [address] Glucose [Mass/Vol] 118 mg/dL High 74-106 [facility] Comment on above: Result Comment: Fast ing Glucose result from 100 to 125 mg/dL suggests IMPAIRED HOMEOSTASIS per A.D.A. criteria. Performed By: #### L 500.2500, L100.0100 #### [facility] [address] [place], [address] Potassium [Moles/Vol] 3.5 mmol/L Normal 3.5-5.1 [facility] Comment on above: Performed By: #### L 500.2500, L100.0100 #### [facility] [address] [place], [address] Sodium [Moles/Vol] 138 mmol/L Normal 136-145 [facility] Comment on above: Performed By: #### L 500.2500, L100.0100 #### [facility] [address] [place], [address] Urea nitrogen [Mass/Vol] 13 mg/dL Normal 7-18 [facility] Comment on above: Performed By: #### L 500.2500, L100.0100 #### [facility] [address] [place], [address] CBC W/Diff, Automatedon 12-2 -2023 Absolute Lymph 0.48 X10 3/uL Low 0.83-4.51 [facility] Comment on above: Performed By: #### L 500.2500, L100.0100 #### [facility] [address] [place], [address] Absolute Neut 10.6 X10 3/uL High 2.0-7.7 [facility] Comment on above: Performed By: #### L 500.2500, L100.0100 #### [facility] [address] [place], [address] Basophils/100 WBC (Bld) 0.1 % Normal 0-1 [facility] Comment on above: Performed By: #### L 500.2500, L100.0100 #### [facility] [address] [place], [address] Eosinophils/100 WBC (Bld) 0.0 % Normal 0-5 [facility] Comment on above: Performed By: #### L 500.2500, L100.0100 #### [facility] [address] [place], [address] Erythrocyte distribution width (RBC) [Ratio] 13.1 % Normal 11.6-14.6 [facility] Comment on above: Performed By: #### L 500.2500, L100.0100 #### [facility] [address] [place], [address] Hematocrit (Bld) [Volume fraction] 42.5 % Normal 37-47 [facility] Comment on above: Performed By: #### L 500.2500, L100.0100 #### [facility] [address] [place], [address] Hemoglobin (Bld) [Mass/Vol] 14.3 g/dL Normal 12.0-15.0 [facility] Comment on above: Performed By: #### L 500.2500, L100.0100 #### [facility] [address] [place], [address] IG% 0.400 Normal 0.0-0.9 [facility] Comment on above: Result Comment: IG% - Immature Granulocytes (promyelocytes, myelocytes and metamyelocytes) > 1% indicates that a LEFT SHIFT is Present. Performed By: #### L 500.2500, L100.0100 #### [facility] [address] [place], [address] Lymphocytes/100 WBC (Bld) 4.1 % Low 19-41 [facility] Comment on above: Performed By: #### L 500.2500, L100.0100 #### [facility] [address] [place], [address] MCH (RBC) [Entitic mass] 32.5 pg High 27.0-32.0 [facility] Comment on above: Performed By: #### L 500.2500, L100.0100 #### [facility] [address] [place], [address] MCHC (RBC) [Mass/Vol] 33.6 g/dL Normal 32-36 [facility] Comment on above: Performed By: #### L 500.2500, L100.0100 #### [facility] [address] [place], [address] MCV (RBC) [Entitic vol] 96.6 fL Normal 81-99 [facility] Comment on above: Performed By: #### L 500.2500, L100.0100 #### [facility] [address] [place], [address] Monocytes/100 WBC (Bld) 5.1 % Normal 0-10 [facility] Comment on above: Performed By: #### L 500.2500, L100.0100 #### [facility] [address] [place], [address] Neutrophils/100 WBC (Bld) 90.3 % High 47-70 [facility] Comment on above: Performed By: #### L 500.2500, L100.0100 #### [facility] [address] [place], [address] Nucleated RBC (Bld) [#/Vol] 0 10*3/uL Normal 0-5 [facility] Comment on above: Performed By: #### L 500.2500, L100.0100 #### [facility] [address] [place], [address] Platelet mean volume (Bld) [Entitic vol] 9.8 fL Normal 6.2-12.0 [facility] Comment on above: Performed By: #### L 500.2500, L100.0100 #### [facility] [address] [place], [address] Platelets (Bld) [#/Vol] 252 10*3/uL Normal 150-450 [facility] Comment on above: Performed By: #### L 500.2500, L100.0100 #### [facility] [address] [place], [address] RBC (Bld) [#/Vol] 4.40 10*6/uL Normal 4.2-5.[address] [facility] Comment on above: Performed By: #### L 500.2500, L100.0100 #### [facility] [address] [place], [address] RDW SD 46.8 fl High 35.1-43.9 [facility] Comment on above: Performed By: #### L 500.2500, L100.0100 #### [facility] [address] [place], [address] WBC (Bld) [#/Vol] 11.8 10*3/uL High 4.4-11.[address] [facility] Comment on above: Performed By: #### L 500.2500, L100.0100 #### [facility] [address] [place], [address] Absolute Lymph 1.01 X10 3/uL Normal 0.83-4.51 [facility] Comment on above: Performed By: #### L 500.2500, L100.0100 #### [facility] [address] [place], [address] Absolute Neut 8.7 X10 3/uL High 2.0-7.7 [facility] Comment on above: Performed By: #### L 500.2500, L100.0100 #### [facility] [address] [place], [address] Basophils/100 WBC (Bld) 0.2 % Normal 0-1 [facility] Comment on above: Performed By: #### L 500.2500, L100.0100 #### [facility] [address] [place], [address] Eosinophils/100 WBC (Bld) 0.0 % Normal 0-5 [facility] Comment on above: Performed By: #### L 500.2500, L100.0100 #### [facility] [address] [place], [address] Erythrocyte distribution width (RBC) [Ratio] 13.0 % Normal 11.6-14.6 [facility] Comment on above: Performed By: #### L 500.2500, L100.0100 #### [facility] [address] [place], [address] Hematocrit (Bld) [Volume fraction] 41.1 % Normal 37-47 [facility] Comment on above: Performed By: #### L 500.2500, L100.0100 #### [facility] [address] [place], [address] Hemoglobin (Bld) [Mass/Vol] 13.9 g/dL Normal 12.0-15.0 [facility] Comment on above: Performed By: #### L 500.2500, L100.0100 #### [facility] [address] [place], [address] IG% 0.500 Normal 0.0-0.9 [facility] Comment on above: Result Comment: IG% - Immature Granulocytes (promyelocytes, myelocytes and metamyelocytes) > 1% indicates that a LEFT SHIFT is Present. Performed By: #### L 500.2500, L100.0100 #### [facility] [address] [place], [address] Lymphocytes/100 WBC (Bld) 9.8 % Low 19-41 [facility] Comment on above: Performed By: #### L 500.2500, L100.0100 #### [facility] [address] [place], [address] MCH (RBC) [Entitic mass] 32.3 pg High 27.0-32.0 [facility] Comment on above: Performed By: #### L 500.2500, L100.0100 #### [facility] [address] [place], [address] MCHC (RBC) [Mass/Vol] 33.8 g/dL Normal 32-36 [facility] Comment on above: Performed By: #### L 500.2500, L100.0100 #### [facility] [address] [place], [address] MCV (RBC) [Entitic vol] 95.6 fL Normal 81-99 [facility] Comment on above: Performed By: #### L 500.2500, L100.0100 #### [facility] [address] [place], [address] Monocytes/100 WBC (Bld) 5.8 % Normal 0-10 [facility] Comment on above: Performed By: #### L 500.2500, L100.0100 #### [facility] [address] [place], [address] Neutrophils/100 WBC (Bld) 83.7 % High 47-70 [facility] Comment on above: Performed By: #### L 500.2500, L100.0100 #### [facility] [address] [place], [address] Nucleated RBC (Bld) [#/Vol] 0 10*3/uL Normal 0-5 [facility] Comment on above: Performed By: #### L 500.2500, L100.0100 #### [facility] [address] [place], [address] Platelet mean volume (Bld) [Entitic vol] 9.7 fL Normal 6.2-12.0 [facility] Comment on above: Performed By: #### L 500.2500, L100.0100 #### [facility] [address] [place], [address] Platelets (Bld) [#/Vol] 245 10*3/uL Normal 150-450 [facility] Comment on above: Performed By: #### L 500.2500, L100.0100 #### [facility] [address] [place], [address] RBC (Bld) [#/Vol] 4.30 10*6/uL Normal 4.2-5.[address] [facility] Comment on above: Performed By: #### L 500.2500, L100.0100 #### [facility] [address] [place], [address] RDW SD 45.5 fl High 35.1-43.9 [facility] Comment on above: Performed By: #### L 500.2500, L100.0100 #### [facility] [address] [place], [address] WBC (Bld) [#/Vol] 10.3 10*3/uL Normal 4.4-11.[address] [facility] Comment on above: Performed By: #### L 500.2500, L100.0100 #### [facility] [address] [place], [address] Chest PA and Lateralon 10-16 Chest PA and Lateral [facility] Imaging Services [address] [place] [address] Chest PA and Lateral MR#: [id number] Acct: [id number] Name: CARINE BARBA Rep #: [id number] : 1990 F 34 From: Magdiel field MD PCP: Care Physician,No Primary Status: ADM IN Study: Chest PA and Lateral Date of Exam: 10/16/24 Exam# [id number] Ordering Dr: Fletcher Marie DO [id number] INDICATION: Shortness of breath EXAMINATION/TECHNIQUE : X-RAY - XR Chest 2 Views COMPARISON: 10/16/2024. FINDINGS: The lungs are clear. The cardiomediastinal silhouette is unremarkable. Stable surgical changes of the left clavicle. No pleural effusion or pneumothorax. No acute osseous abnormalities. RAD/Chest PA and Lateral IMPRESSION: No acute radiographic abnormalities. Electronically Signed: Magdiel Chadwick MD at 23:10 EST , CC: Dr. Fletcher Marie DO; No Primary Care Physician Beef Boner: Signed Normal [facility] Chest PA and Lateral [facility] Imaging Services [address] [place] [address] Chest PA and Lateral MR#: [id number] Acct: [id number] Name: CARINE BARBA Rep #: [id number] : 1990 F 34 From: Jason Dumont MD PCP: Care Physician,No Primary Status: REG ER Study: Chest PA and Lateral Date of Exam: 10/16/24 Exam# [id number] Ordering Dr: Arjun Lagunas DO [id number] EXAM: XR CHEST, 2 VIEWS CLINICAL INDICATION: sob, cough TECHNIQUE: Frontal and lateral views of the chest. COMPARISON: Single view chest 03/23/2022 FINDINGS: LUNGS AND PLEURAL SPACES: Unremarkable. No consolidation or edema. No pneumothorax. No effusion. HEART: Unremarkable. Cardiac silhouette not enlarged. MEDIASTINUM: Central airways and mediastinal contour are unremarkable. BONES/JOINTS: Stable surgical changes of the left clavicle. No acute fracture. SOFT TISSUES: Unremarkable. RAD/Chest PA and Lateral IMPRESSION: No acute findings in the chest. Electronically Signed: Jason Dumont MD at 1:57 EST , CC: Dr. Arjun Lagunas, DO; No Primary Care Physician Beef Boner: Signed Normal [facility] Emergency Department Summary on 10-16-2024 Emergency Department Summary [facility] Medical Records Department [address] [place] [address] Emergency Department Summary 10/16/24 MR#: [id number] Acct: [id number] Name: CARINE BARBA Rep #: [id number] : 1990 34 From: Fletcher Marie DO PCP: Care Physician,No Primary Status:REG ER Location: ED HPI History of Present Illness Chief Complaint: Asthma Narrative Narrative: Chief complaint and HPI: Asthma exacerbation. 34-year-old female with past medical history of asthma on Flovent twice daily and albuterol inhaler as needed presents for evaluation of asthma exacerbation. Patient states for the past few days she has had URI type symptoms consisting of cough. She states at baseline she is a tobacco abuser but has not used in the past 5 days. Patient states that she does not have home nebulizer treatments. Patient states her shortness of breath has progressively worsened. She states that it worsened last night in which she was seen early this morning in her emergency department. She states her shortness of breath improved but has gradually worsened throughout the day bringing her back. She denies any chest pain, abdominal pain, nausea, vomiting. On chart review, patient had a negative COVID-19 test. CBC and BMP were relatively unremarkable. Chest x-ray without pneumonia. Patient was discharged home on doxycycline 100 mg twice daily for 5 days as well as 50 mg prednisone for 5 days. Patient was given DuoNebs in the emergency department. Review of systems: See HPI Medications: As listed on the chart Allergies: As listed on the chart PFSH: Per chart Vital signs: As listed on the chart. Reviewed. Physical exam: Gen: A O x3 Head: Normocephalic, atraumatic Eyes: No sclera icterus, conjunctiva clear ENT: Moist mucous membranes Neck: Trachea midline, No JVD CV: RRR, no murmurs, no peripheral edema Resp: Intermittently tachypneic and dyspneic, diffuse expiratory wheezing, tight, poor airflow, + cough GI: Abd soft, non-distended, non-tender, no r/r/g Musc: Full ROM, no deformity Skin: Warm, dry Neuro: Alert, oriented, grossly intact, sensation intact Psych: Cooperative, appropriate mood and affect [facility] Medical History Asthma Home Medications ???Medication ???Instructions ???Recorded ???Last Taken ???Type albuterol sulfate 90 mcg/actuation 1 - 2 puff inhalation Q4H PRN PRN 04/17/19 07/12/20 Rx aerosol inhaler Wheezing ##1 hydroxyzine HCl 25 mg tablet 25 mg PO TID PRN anxiety #20 tabs 03/23/22 Unknown Rx doxycycline hyclate 100 mg capsule 100 mg PO BID 5 days #10 caps 10/16/24 Unknown Rx fluticasone propionate 100 1 inh inhalation BID 10/16/24 Unknown History mcg/actuation blister powder for inhalation (Flovent Diskus) prednisone 50 mg tablet 50 mg PO DAILY 5 days #5 tabs 10/16/24 Unknown Rx Allergy/AdvReac Type Severity Reaction Status Date / Time cefadroxil hydrate (From Allergy Swelling Verified 10/16/24 21:13 Duricef) Social History Smoking Status: Current some day smoker tobacco type: cigarettes EXAM Physical Exam Const Vital Signs: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 [#/Vol] 201 10*3/uL Normal 140-440 [facility] Comment on above: Performed By: #### H EMDF, BMP3 #### [facility] [address] [place] [address] RBC (Bld) [#/Vol] 4.21 10*6/uL Normal 3.80-5.20 [facility] Comment on above: Performed By: #### H EMDF, BMP3 #### [facility] [address] [place] [address] WBC (Bld) [#/Vol] 7.4 10*3/uL Normal 3.6-10.7 [facility] Comment on above: Performed By: #### H RADHA BMP3 #### [facility] [address] [place] [address] Troponin Ion 07-05-2020 Troponin I.cardiac [Mass/Vol] ng/mL Normal 0.000-0.034 [facility] Comment on above: Result Comment: . Performed By: #### Aidan GARCIA BMP3 #### [facility] [address] [place] [address] Troponin x1on 07-05-2020 Troponin I.cardiac [Mass/Vol] ng/mL 0 - 0.034 ng/mL [place], [place] Comment on above: . Test Performed by [facility], [address] , [place], [place] [id number] [place] [address] Basic Metabolic Panelon 05-24 Anion gap [Moles/Vol] 10 Normal [facility] Comment on above: Performed By: #### H RADHA BMP3, DDI2 #### [facility] [address] [place] [address] Calcium [Mass/Vol] 9.2 mg/dL Normal 8.4-10.4 [facility] Comment on above: Performed By: #### H RADHA BMP3, DDI2 #### [facility] [address] [place] [address] CO2 [Moles/Vol] 25 mmol/L Normal 22-30 [facility] Comment on above: Performed By: #### H RADHA, BMP3, DDI2 #### [facility] [address] [place] [address] Creatinine [Mass/Vol] 0.69 mg/dL Normal 0.52-1.25 [facility] Comment on above: Performed By: #### H RADHA, BMP3, DDI2 #### [facility] [address] [place] [address] GFR/1.73 sq M predicted among blacks MDRD (S/P/Bld) [Vol rate/Area] mL/min/{1.73_m2} Normal >60 [facility] Comment on above: Performed By: #### H OLLIE GARCIA3, DDI2 #### [facility] [address] [place] [address] GFR/1.73 sq M predicted among non-blacks MDRD (S/P/Bld) [Vol rate/Area] mL/min/{1.73_m2} Normal >60 [facility] Comment on above: Result Comment: KDIG O guidelines provide the following GFR categories: Stage GFR(ml/min/1.73 m2) Terms G1 >=90 Normal or high G2 60-89 Mildly decreased* G3a 45-59 Mildly to moderately decreased G3b 30-44 Moderately to severely decreased G4 15-29 Severely decreased G5 <15 Kidney failure *Relative to young adult level. In the absence of evidence of kidney damage, neither GFR category G1 nor G2 fulfill the criteria for CKD. The CKD-EPI equation is validated in individuals 18 years of age and older. Currently the best equation for estimating glomerular filtration rate (GFR) from serum creatinine in children is the Bedside Wayne equation. It is less accurate in patients with extremes of muscle mass, restriction of dietary protein, ingestion of creatine, extra-renal metabolism of creatinine, or treatment with medications that affect renal tubular creatinine secretion. Performed By: #### H OLLIE GARCIA3, DDI2 #### [facility] [address] [place] [address] Glucose [Mass/Vol] 99 mg/dL Normal 70-100 [facility] Comment on above: Performed By: #### H OLLIE GARCIA3, DDI2 #### [facility] [address] [place] [address] Urea nitrogen [Mass/Vol] 10 mg/dL Normal 7-20 [facility] Comment on above: Performed By: #### H OLLIE GARCIA3, DDI2 #### [facility] [address] [place] [address] Chloride [Moles/Vol] 104 mmol/L Normal 98-107 [facility] Comment on above: Performed By: #### H RADHA BMP3, DDI2 #### [facility] [address] [place] [address] Potassium [Moles/Vol] 3.9 mmol/L Normal 3.5-5.1 [facility] Comment on above: Performed By: #### H MIQUEL GARCIA, DDI2 #### [facility] [address] [place] [address] Sodium [Moles/Vol] 139 mmol/L Normal 135-145 [facility] Comment on above: Performed By: #### H MIQUEL GARCIA, DDI2 #### [facility] [address] [place] [address] Anion gap [Moles/Vol] 10 mmol/L [place], [place] Calcium [Mass/Vol] 9.2 mg/dL 8.4 - 10. 4 mg/dL [place] Chloride [Moles/Vol] 104 mmol/L 98 - 10 7 mmol/L [place] CO2 [Moles/Vol] 25 mmol/L 22 - 30 mmol/L [place] Creatinine [Mass/Vol] 0.69 mg/dL 0.52 - 1.25 mg/dL [place] EGFR IF NonAfrican Filipino >90.0 >60 mL/min [place] Comment on above: KDIGO guidelines pro vide the following GFR categories: Stage GFR(ml/min/1.73 m2) Terms G1 >=90 Normal or high G2 60-89 Mildly decreased* G3a 45-59 Mildly to moderately decreased G3b 30-44 Moderately to severely decreased G4 15-29 Severely decreased G5 <15 Kidney failure *Relative to young adult level. In the absence of evidence of kidney damage, neither GFR category G1 nor G2 fulfill the criteria for CKD. The CKD-EPI equation is validated in individuals 18 years of age and older. Currently the best equation for estimating glomerular filtration rate (GFR) from serum creatinine in children is the Bedside Wayne equation. It is less accurate in patients with extremes of muscle mass, restriction of dietary protein, ingestion of creatine, extra-renal metabolism of creatinine, or treatment with medications that affect renal tubular creatinine secretion. GFR/1.73 sq M predicted among blacks MDRD (S/P/Bld) [Vol rate/Area] mL/min/{1.73_m2} >60 mL/min [place] Glucose [Mass/Vol] 99 mg/dL 70 - 100 mg/dL [place] Potassium [Moles/Vol] 3.9 mmol/L 3.5 - 5.1 mmol/L [place] Sodium [Moles/Vol] 139 mmol/L 135 - 145 mmol/L [place] Urea nitrogen [Mass/Vol] 10 mg/dL 7 - 20 mg/dL [place] Test Performed by [facility], [facility] [address] , [address] CR Chest PA/LATon 06-08-2020 CR Chest PA/LAT Patient Name: CARINE BARBA Diagnostic Radiology Exam Date/Time 06/08/2020 03:45:52 EDT Exam CR Chest PA/LAT Ordering Physician MD JIM, [facility] Accession Number [id number] CPT4 Codes 33286 () Reason For Exam sob Report CHEST X-RAY PA/LATERAL CLINICAL INDICATION: Dyspnea. Frontal and lateral plain films of the chest were obtained. COMPARISON: 04/29/2020. FINDINGS: The cardiac silhouette is within normal limits. No focal consolidation is seen within the lungs. No pleural effusion or pneumothorax is identified. The visualized bony structures of the chest are unremarkable . Left clavicular plate and screws are redemonstrated. IMPRESSION: No acute cardiopulmonary disease. Report Dictated on Final Dictating Physician: NIMO GARCIA DO, I Signed Date and Time: 06/08/2020 4:13 am Signed by: NIMO GARCIA DO, I Transcribed Date and Time: 06/08/2020 4:14 Normal [facility] D-Dimer, Innovanceon 020 D-Dimer, Innovance 0.32 mg/L Normal <0.19-0.50 [facility] Comment on above: Result Comment: Inno singleton D-Dimer values of <0.50 mg/L FEU can be used in combination with a pre-test probability model (e.g. Well's) to exclude pulmonary embolism (PE) disease, as well as an aid in the diagnosis of deep vein thrombosis (DVT). Performed By: #### H EMDF, BMP3, DDI2 #### [facility] [address] [place] [address] D-Dimer, Quantitativeon 05-24 D-Dimer, Quant 0.32 mg/L <0.19 - 0.50 [place], [place] Comment on above: Innovance D-Dimer va lues of <0.50 mg/L FEU can be used in combination with a pre-test probability model (e.g. Well's) to exclude pulmonary embolism (PE) disease, as well as an aid in the diagnosis of deep vein thrombosis (DVT). Test Performed by [facility], [address] , [place], [place] [address] [place], [place] Hemogram (CBC) w/Auto Diffon 06-08-2020 Absolute Baso # 0.0 10*3/uL 0 - 0.2 10*3/uL [place] Absolute Neut # 4.4 10*3/uL 1.8 - 7 10*3/uL [place] Basophils/100 WBC (Bld) 0.5 % 0 - 2 % [place] Eosinophils (Bld) [#/Vol] 0.6 10*3/uL High 0 - 0.5 10*3/uL [place] Eosinophils/100 WBC (Bld) 7.6 % High 1 - 6 % [place] Erythrocyte distribution width (RBC) [Ratio] 14.0 % 11.5 - 14.5 % [place] Granulocytes/100 WBC (Bld) 57.2 % 40 - 80 % [place] Hematocrit (Bld) [Volume fraction] 40.4 % 35 - 47 % [place] Hemoglobin (Bld) [Mass/Vol] 13.8 g/dL 11.7 - 16 g/dL [place] Interpretation and review of laboratory results Abnormal [place] Lymphocytes (Bld) [#/Vol] 2.2 10*3/uL 1 - 4.3 10*3/uL [place] Lymphocytes/100 WBC (Bld) 28.3 % 20 - 40 % [place] MCH (RBC) [Entitic mass] 32.7 pg 26 - 34 pg [place] MCHC (RBC) [Mass/Vol] 34.2 % 32 - 36 % [place], [place] MCV (RBC) [Entitic vol] 95.6 fL 79 - 98 fL [place] Monocytes (Bld) [#/Vol] 0.5 10*3/uL 0 - 0.8 10*3/uL [place] Monocytes/100 WBC (Bld) 6.4 % 2 - 10 % [place] Platelet mean volume (Bld) [Entitic vol] 8.2 fL 7.4 - 10.4 fL [place], [place] Platelets (Bld) [#/Vol] 249 10*3/uL 140 - 440 10*3/uL [place] RBC (Bld) [#/Vol] 4.22 10*6/uL 3.8 - 5.2 10*6/uL [place] WBC (Bld) [#/Vol] 7.7 10*3/uL 3.6 - 10.7 10*3/uL [place] Test Performed by [facility], [address] [place], [place] [id number] [place] [address] Hemogram w/ Autodiffon 06-08 Abs Baso Cnt 0.0 10*3/uL Normal 0.0-0.2 [facility] Comment on above: Performed By: #### H EMDF, BMP3, DDI2 #### [facility] [address] [place] [address] Abs Neutrophile Cnt 4.4 10*3/uL Normal 1.8-7.0 [facility] Comment on above: Performed By: #### H EMDF, BMP3, DDI2 #### [facility] [address] [place] [address] Basophils/100 WBC (Bld) 0.5 % Normal 0.0-2.0 [facility] Comment on above: Performed By: #### H EMDF, BMP3, DDI2 #### [facility] [address] [place] [address] Eosinophils (Bld) [#/Vol] 0.6 10*3/uL High 0.0-0.5 [facility] Comment on above: Performed By: #### H EMDF, BMP3, DDI2 #### [facility] [address] [place] [address] Eosinophils/100 WBC (Bld) 7.6 % High 1.0-6.0 [facility] Comment on above: Performed By: #### H EMDF, BMP3, DDI2 #### [facility] [address] [place] [address] Erythrocyte distribution width (RBC) [Ratio] 14.0 % Normal 11.5-14.5 [facility] Comment on above: Performed By: #### H EMDF, BMP3, DDI2 #### [facility] [address] [place] [address] Granulocytes/100 WBC (Bld) 57.2 % Normal 40.0-80.0 [facility] Comment on above: Performed By: #### H EMDF, BMP3, DDI2 #### [facility] [address] [place] [address] Hematocrit (Bld) [Volume fraction] 40.4 % Normal 35.0-47.0 [facility] Comment on above: Performed By: #### H EMDF, BMP3, DDI2 #### [facility] [address] [place] [address] Hemoglobin (Bld) [Mass/Vol] 13.8 g/dL Normal 11.7-16.0 [facility] Comment on above: Performed By: #### H EMDF, BMP3, DDI2 #### [facility] [address] [place] [address] Lymphocytes (Bld) [#/Vol] 2.2 10*3/uL Normal 1.0-4.3 [facility] Comment on above: Performed By: #### H EMDF, BMP3, DDI2 #### [facility] [address] [place] [address] Lymphocytes/100 WBC (Bld) 28.3 % Normal 20.0-40.0 [facility] Comment on above: Performed By: #### H EMDF, BMP3, DDI2 #### [facility] [address] [place] [address] MCH (RBC) [Entitic mass] 32.7 pg Normal 26.0-34.0 [facility] Comment on above: Performed By: #### H EMDF, BMP3, DDI2 #### [facility] [address] [place] [address] MCHC (RBC) [Mass/Vol] 34.2 % Normal 32.0-36.0 [facility] Comment on above: Performed By: #### H EMDF, BMP3, DDI2 #### [facility] [address] [place] [address] MCV (RBC) [Entitic vol] 95.6 fL Normal 79.0-98.0 [facility] Comment on above: Performed By: #### H EMDF, BMP3, DDI2 #### [facility] [address] [place] [address] Monocytes (Bld) [#/Vol] 0.5 10*3/uL Normal 0.0-0.8 [facility] Comment on above: Performed By: #### H EMDF, BMP3, DDI2 #### [facility] [address] [place] [address] Monocytes/100 WBC (Bld) 6.4 % Normal 2.0-10.0 [facility] Comment on above: Performed By: #### H EMDF, BMP3, DDI2 #### [facility] [address] [place] [address] Platelet mean volume (Bld) [Entitic vol] 8.2 fL Normal 7.4-10.4 [facility] Comment on above: Performed By: #### H EMDF, BMP3, DDI2 #### [facility] [address] [place] [address] Platelets (Bld) [#/Vol] 249 10*3/uL Normal 140-440 [facility] Comment on above: Performed By: #### H EMDF, BMP3, DDI2 #### [facility] [address] [place] [address] RBC (Bld) [#/Vol] 4.22 10*6/uL Normal 3.80-5.20 [facility] Comment on above: Performed By: #### H EMDF, BMP3, DDI2 #### [facility] [address] [place] [address] WBC (Bld) [#/Vol] 7.7 10*3/uL Normal 3.6-10.7 [facility] Comment on above: Performed By: #### H EMDF, BMP3, DDI2 #### [facility] [address] [place] [address] Troponin Ion 06-08-2020 Troponin I.cardiac [Mass/Vol] ng/mL Normal 0.000-0.034 [facility] Comment on above: Result Comment: . Performed By: #### H EMDF, BMP3 #### [facility] [address] [place] [address] Troponin x1on 06-08-2020 Troponin I.cardiac [Mass/Vol] ng/mL 0 - 0.034 ng/mL [place], [place] Comment on above: . Test Performed by [facility], [address] , [place], [place] [id number] [place] [address] XR CHEST (2 VW)on 06-08-2020 Patient Name: CARINE BARBA ---Diagnostic Radiology--- Exam Date/Time 06/08/2020 03:45:52 EDT Exam CR Chest PA/LAT Ordering Physician MD JIM, [facility] Accession Number [id number] CPT4 Codes 80543 () Reason For Exam sob Report CHEST X-RAY PA/LATERAL CLINICAL INDICATION: Dyspnea. Frontal and lateral plain films of the chest were obtained. COMPARISON: 04/29/2020. FINDINGS: The cardiac silhouette is within normal limits. No focal consolidation is seen within the lungs. No pleural effusion or pneumothorax is identified. The visualized bony structures of the chest are unremarkable . Left clavicular plate and screws are redemonstrated. IMPRESSION: No acute cardiopulmonary disease. Report Dictated on --- Final --- Dictating Physician: NIMO GARCIA DO, I Signed Date and Time: 06/08/2020 4:13 am Signed by: NIMO GARCIA DO, I Transcribed Date and Time: 06/08/2020 4:14 [place], [place], [facility] Incoming Radiology Results From [facility] - 06/08/2020 4:15 AM EDT Patient Name: CARINE BARBA ---Diagnostic Radiology--- Exam Date/Time 06/08/2020 03:45:52 EDT Exam CR Chest PA/LAT Ordering Physician MD JIM, [facility] Accession Number [id number] CPT4 Codes 18758 () Reason For Exam sob Report CHEST X-RAY PA/LATERAL CLINICAL INDICATION: Dyspnea. Frontal and lateral plain films of the chest were obtained. COMPARISON: 04/29/2020. FINDINGS: The cardiac silhouette is within normal limits. No focal consolidation is seen within the lungs. No pleural effusion or pneumothorax is identified. The visualized bony structures of the chest are unremarkable . Left clavicular plate and screws are redemonstrated. IMPRESSION: No acute cardiopulmonary disease. Report Dictated on --- Final --- Dictating Physician: NIMO GARCIA DO, I Signed Date and Time: 06/08/2020 4:13 am Signed by: NIMO GARCIA DO, I Transcribed Date and Time: 06/08/2020 4:14 [place], [place] Basic Metabolic Panelon 07-0 Anion gap [Moles/Vol] 13 Normal [facility] Comment on above: Performed By: #### H EMDF BMP3 #### [facility] [address] [place] [address] Calcium [Mass/Vol] 8.8 mg/dL Normal 8.4-10.4 [facility] Comment on above: Performed By: #### H EMDF, BMP3 #### [facility] [address] [place] [address] CO2 [Moles/Vol] 22 mmol/L Normal 22-30 [facility] Comment on above: Performed By: #### H EMDF, BMP3 #### [facility] [address] [place] [address] Glucose [Mass/Vol] 121 mg/dL High 70-100 [facility] Comment on above: Performed By: #### H EMDF, BMP3 #### [facility] [address] [place] [address] Urea nitrogen [Mass/Vol] 18 mg/dL Normal 7-20 [facility] Comment on above: Performed By: #### H EMDF, BMP3 #### [facility] [address] [place] [address] Creatinine [Mass/Vol] 0.63 mg/dL Normal 0.52-1.25 [facility] Comment on above: Performed By: #### H EMDF, BMP3 #### [facility] [address] [place] [address] GFR/1.73 sq M predicted among blacks MDRD (S/P/Bld) [Vol rate/Area] mL/min/{1.73_m2} Normal >60 [facility] Comment on above: Performed By: #### H EMDF, BMP3 #### [facility] [address] [place] [address] GFR/1.73 sq M predicted among non-blacks MDRD (S/P/Bld) [Vol rate/Area] mL/min/{1.73_m2} Normal >60 [facility] Comment on above: Result Comment: KDIG O guidelines provide the following GFR categories: Stage GFR(ml/min/1.73 m2) Terms G1 >=90 Normal or high G2 60-89 Mildly decreased* G3a 45-59 Mildly to moderately decreased G3b 30-44 Moderately to severely decreased G4 15-29 Severely decreased G5 <15 Kidney failure *Relative to young adult level. In the absence of evidence of kidney damage, neither GFR category G1 nor G2 fulfill the criteria for CKD. The CKD-EPI equation is validated in individuals 18 years of age and older. Currently the best equation for estimating glomerular filtration rate (GFR) from serum creatinine in children is the Bedside Wayne equation. It is less accurate in patients with extremes of muscle mass, restriction of dietary protein, ingestion of creatine, extra-renal metabolism of creatinine, or treatment with medications that affect renal tubular creatinine secretion. Performed By: #### H OLLIE GARCIA3 #### [facility] [address] [place] [address] Chloride [Moles/Vol] 106 mmol/L Normal 98-107 [facility] Comment on above: Performed By: #### H OLLIE GARCIA3 #### [facility] [address] [place] [address] Potassium [Moles/Vol] 3.4 mmol/L Low 3.5-5.1 [facility] Comment on above: Performed By: #### H OLLIE GARCIA3 #### [facility] [address] [place] [address] Sodium [Moles/Vol] 140 mmol/L Normal 135-145 [facility] Comment on above: Performed By: #### H OLLIE GARCIA3 #### [facility] [address] [place] [address] Anion gap [Moles/Vol] 13 mmol/L [place] Calcium [Mass/Vol] 8.8 mg/dL 8.4 - 10. 4 mg/dL [place] Chloride [Moles/Vol] 106 mmol/L 98 - 10 7 mmol/L [place] CO2 [Moles/Vol] 22 mmol/L 22 - 30 mmol/L [place] Creatinine [Mass/Vol] 0.63 mg/dL 0.52 - 1.25 mg/dL [place] EGFR IF NonAfrican Filipino >90.0 >60 mL/min [place] Comment on above: KDIGO guidelines pro vide the following GFR categories: Stage GFR(ml/min/1.73 m2) Terms G1 >=90 Normal or high G2 60-89 Mildly decreased* G3a 45-59 Mildly to moderately decreased G3b 30-44 Moderately to severely decreased G4 15-29 Severely decreased G5 <15 Kidney failure *Relative to young adult level. In the absence of evidence of kidney damage, neither GFR category G1 nor G2 fulfill the criteria for CKD. The CKD-EPI equation is validated in individuals 18 years of age and older. Currently the best equation for estimating glomerular filtration rate (GFR) from serum creatinine in children is the Bedside Wayne equation. It is less accurate in patients with extremes of muscle mass, restriction of dietary protein, ingestion of creatine, extra-renal metabolism of creatinine, or treatment with medications that affect renal tubular creatinine secretion. GFR/1.73 sq M predicted among blacks MDRD (S/P/Bld) [Vol rate/Area] mL/min/{1.73_m2} >60 mL/min [place] Glucose [Mass/Vol] 121 mg/dL High 70 - 100 mg/dL [place] Interpretation and review of laboratory results Abnormal [place] Potassium [Moles/Vol] 3.4 mmol/L Low 3.5 - 5.1 mmol/L [place] Sodium [Moles/Vol] 140 mmol/L 135 - 145 mmol/L [place] Urea nitrogen [Mass/Vol] 18 mg/dL 7 - 20 mg/dL [place] Test Performed by [facility], [address] [place] [address]. [address] CR Chest Portableon 04-29-20 20 CR Chest Portable Patient Name: CARINE BABRA Diagnostic Radiology Exam Date/Time 04/29/2020 10:39:47 EDT Exam CR Chest Portable Ordering Physician MD HUGHES DAVID L Accession Number [id number] CPT4 Codes 47943 () Reason For Exam respiratory distress Report CHEST: CLINICAL INDICATION: Respiratory distress TECHNIQUE: AP portable chest COMPARISON: 11/11/2019 FINDINGS: The cardiac and mediastinal silhouettes are normal. The lungs are clear. There is no sizable pleural effusion. Postsurgical changes in the left clavicle. IMPRESSION: No acute process. Report Dictated on Final Dictating Physician: MD KASPER NICHOLAS Signed Date and Time: 04/29/2020 11:06 am Signed by: MD KASPER NICHOLAS Transcribed Date and Time: 04/29/2020 11:08 Normal [facility] Hemogram (CBC) w/Auto Diffon 04-29-2020 Absolute Baso # 0.1 10*3/uL 0 - 0.2 10*3/uL [place] Absolute Neut # 6.6 10*3/uL 1.8 - 7 10*3/uL [place] Basophils/100 WBC (Bld) 0.6 % 0 - 2 % [place] Eosinophils (Bld) [#/Vol] 1.0 10*3/uL High 0 - 0.5 10*3/uL [place] Eosinophils/100 WBC (Bld) 9.9 % High 1 - 6 % [place] Erythrocyte distribution width (RBC) [Ratio] 13.7 % 11.5 - 14.5 % [place] Granulocytes/100 WBC (Bld) 66.0 % 40 - 80 % [place] Hematocrit (Bld) [Volume fraction] 40.8 % 35 - 47 % [place] Hemoglobin (Bld) [Mass/Vol] 14.2 g/dL 11.7 - 16 g/dL [place] Interpretation and review of laboratory results Abnormal [place] Lymphocytes (Bld) [#/Vol] 1.8 10*3/uL 1 - 4.3 10*3/uL [place] Lymphocytes/100 WBC (Bld) 18.1 % Low 20 - 40 % [place] MCH (RBC) [Entitic mass] 33.0 pg 26 - 34 pg [place] MCHC (RBC) [Mass/Vol] 34.7 % 32 - 36 % [place] MCV (RBC) [Entitic vol] 95.0 fL 79 - 98 fL [place] Monocytes (Bld) [#/Vol] 0.5 10*3/uL 0 - 0.8 10*3/uL [place] Monocytes/100 WBC (Bld) 5.4 % 2 - 10 % [place] Platelet mean volume (Bld) [Entitic vol] 8.4 fL 7.4 - 10.4 fL [place], [place] Platelets (Bld) [#/Vol] 237 10*3/uL 140 - 440 10*3/uL [place] RBC (Bld) [#/Vol] 4.30 10*6/uL 3.8 - 5.2 10*6/uL [place] WBC (Bld) [#/Vol] 10.0 10*3/uL 3.6 - 10.7 10*3/uL [place] Test Performed by [facility], [address] , [place], [place] [address] [place] Hemogram w/ Autodiffon 04-29 Abs Baso Cnt 0.1 10*3/uL Normal 0.0-0.2 [facility] Comment on above: Performed By: #### H EMDF, BMP3 #### [facility] [address] [place] [address] Abs Neutrophile Cnt 6.6 10*3/uL Normal 1.8-7.0 [facility] Comment on above: Performed By: #### H EMDF, BMP3 #### [facility] [address] [place] [address] Basophils/100 WBC (Bld) 0.6 % Normal 0.0-2.0 [facility] Comment on above: Performed By: #### H EMDF, BMP3 #### [facility] [address] [place] [address] Eosinophils (Bld) [#/Vol] 1.0 10*3/uL High 0.0-0.5 [facility] Comment on above: Performed By: #### H EMDF, BMP3 #### [facility] [address] [place] [address] Eosinophils/100 WBC (Bld) 9.9 % High 1.0-6.0 [facility] Comment on above: Performed By: #### H EMDF, BMP3 #### [facility] [address] [place] [address] Erythrocyte distribution width (RBC) [Ratio] 13.7 % Normal 11.5-14.5 [facility] Comment on above: Performed By: #### H EMDF, BMP3 #### [facility] [address] [place] [address] Granulocytes/100 WBC (Bld) 66.0 % Normal 40.0-80.0 [facility] Comment on above: Performed By: #### H EMDF, BMP3 #### [facility] [address] [place] [address] Hematocrit (Bld) [Volume fraction] 40.8 % Normal 35.0-47.0 [facility] Comment on above: Performed By: #### H EMDF, BMP3 #### [facility] [address] [place] [address] Hemoglobin (Bld) [Mass/Vol] 14.2 g/dL Normal 11.7-16.0 [facility] Comment on above: Performed By: #### H EMDF, BMP3 #### [facility] [address] [place] [address] Lymphocytes (Bld) [#/Vol] 1.8 10*3/uL Normal 1.0-4.3 [facility] Comment on above: Performed By: #### H EMDF, BMP3 #### [facility] [address] [place] [address] Lymphocytes/100 WBC (Bld) 18.1 % Low 20.0-40.0 [facility] Comment on above: Performed By: #### H EMDF, BMP3 #### [facility] [address] [place] [address] MCH (RBC) [Entitic mass] 33.0 pg Normal 26.0-34.0 [facility] Comment on above: Performed By: #### H EMDF, BMP3 #### [facility] [address] [place] [address] MCHC (RBC) [Mass/Vol] 34.7 % Normal 32.0-36.0 [facility] Comment on above: Performed By: #### H EMDF, BMP3 #### [facility] [address] [place] [address] MCV (RBC) [Entitic vol] 95.0 fL Normal 79.0-98.0 [facility] Comment on above: Performed By: #### H RADHA BMP3 #### [facility] [address] [place] [address] Monocytes (Bld) [#/Vol] 0.5 10*3/uL Normal 0.0-0.8 [facility] Comment on above: Performed By: #### H RADHA BMP3 #### [facility] [address] [place] [address] Monocytes/100 WBC (Bld) 5.4 % Normal 2.0-10.0 [facility] Comment on above: Performed By: #### H RADHA BMP3 #### [facility] [address] [place] [address] Platelet mean volume (Bld) [Entitic vol] 8.4 fL Normal 7.4-10.4 [facility] Comment on above: Performed By: #### Aidan GARCIA BMP3 #### [facility] [address] [place] [address] Platelets (Bld) [#/Vol] 237 10*3/uL Normal 140-440 [facility] Comment on above: Performed By: #### H RADHA BMP3 #### [facility] [address] [place] [address] RBC (Bld) [#/Vol] 4.30 10*6/uL Normal 3.80-5.20 [facility] Comment on above: Performed By: #### Aidan GARCIA BMP3 #### [facility] [address] [place] [address] WBC (Bld) [#/Vol] 10.0 10*3/uL Normal 3.6-10.7 [facility] Comment on above: Performed By: #### H RADHA BMP3 #### [facility] [address] [place] [address] XR CHEST PORTABLEon 04-29-20 20 [place], [facility] Incoming Radiology Results From [facility] - 04/29/2020 11:08 AM EDT Patient Name: CARINE BARBA ---Diagnostic Radiology--- Exam Date/Time 04/29/2020 10:39:47 EDT Exam CR Chest Portable Ordering Physician MD HUGHES DAVID L Accession Number [id number] CPT4 Codes 26397 () Reason For Exam respiratory distress Report CHEST: CLINICAL INDICATION: Respiratory distress TECHNIQUE: AP portable chest COMPARISON: 11/11/2019 FINDINGS: The cardiac and mediastinal silhouettes are normal. The lungs are clear. There is no sizable pleural effusion. Postsurgical changes in the left clavicle. IMPRESSION: No acute process. Report Dictated on --- Final --- Dictating Physician: MD KASPER NICHOLAS Signed Date and Time: 04/29/2020 11:06 am Signed by: MD KASPER NICHOLAS Transcribed Date and Time: 04/29/2020 11:08 [place], [place] Patient Name: CARINE BARBA ---Diagnostic Radiology--- Exam Date/Time 04/29/2020 10:39:47 EDT Exam CR Chest Portable Ordering Physician MD HUGHES DAVID L Accession Number [id number] CPT4 Codes 83657 () Reason For Exam respiratory distress Report CHEST: CLINICAL INDICATION: Respiratory distress TECHNIQUE: AP portable chest COMPARISON: 11/11/2019 FINDINGS: The cardiac and mediastinal silhouettes are normal. The lungs are clear. There is no sizable pleural effusion. Postsurgical changes in the left clavicle. IMPRESSION: No acute process. Report Dictated on --- Final --- Dictating Physician: MD KASPER NICHOLAS Signed Date and Time: 04/29/2020 11:06 am Signed by: MD KASPER NICHOLAS Transcribed Date and Time: 04/29/2020 11:08 [place], [place] Basic Metabolic Panelon 10-24 Anion gap [Moles/Vol] 10 Normal [facility] Comment on above: Performed By: #### H EMDF, BMP3 #### [facility] [address] [place] [address] Calcium [Mass/Vol] 8.8 mg/dL Normal 8.4-10.4 [facility] Comment on above: Performed By: #### H RADHA, BMP3 #### [facility] [address] [place] [address] CO2 [Moles/Vol] 26 mmol/L Normal 22-30 [facility] Comment on above: Performed By: #### H CHRISTYF, BMP3 #### [facility] [address] [place] [address] Glucose [Mass/Vol] 112 mg/dL High 70-100 [facility] Comment on above: Performed By: #### H RADHA BMP3 #### [facility] [address] [place] [address] Urea nitrogen [Mass/Vol] 16 mg/dL Normal 7-20 [facility] Comment on above: Performed By: #### H RADHA, BMP3 #### [facility] [address] [place] [address] Creatinine [Mass/Vol] 0.72 mg/dL Normal 0.52-1.25 [facility] Comment on above: Performed By: #### H RADHA BMP3 #### [facility] [address] [place] [address] GFR/1.73 sq M predicted among blacks MDRD (S/P/Bld) [Vol rate/Area] mL/min/{1.73_m2} Normal >60 [facility] Comment on above: Performed By: #### H RADHA BMP3 #### [facility] [address] [place] [address] GFR/1.73 sq M predicted among non-blacks MDRD (S/P/Bld) [Vol rate/Area] mL/min/{1.73_m2} Normal >60 [facility] Comment on above: Result Comment: Sour ce- MDRD equation with creatinine calibration to IDMS(NKDEP) eGFR not recommended for drug dose adjustment Performed By: #### H EMDF, BMP3 #### [facility] [address] [place] [address] Chloride [Moles/Vol] 103 mmol/L Normal 98-107 [facility] Comment on above: Performed By: #### H EMDF, BMP3 #### [facility] [address] [place] [address] Potassium [Moles/Vol] 3.6 mmol/L Normal 3.5-5.1 [facility] Comment on above: Performed By: #### H EMDF, BMP3 #### [facility] [address] [place] [address] Sodium [Moles/Vol] 139 mmol/L Normal 135-145 [facility] Comment on above: Performed By: #### H EMDF, BMP3 #### [facility] [address] [place] [address] Basic Metabolic PanelOrdered By: David Granger on 11-11-2019 Anion gap [Moles/Vol] 10 mmol/L [facility] Work Phone: Calcium [Mass/Vol] 8.8 mg/dL 8.4 - 10. 4 mg/dL [facility] Work Phone: Chloride [Moles/Vol] 103 mmol/L 98 - 10 7 mmol/L [facility] Work Phone: CO2 [Moles/Vol] 26 mmol/L 22 - 30 mmol/L [facility] Work Phone: Creatinine [Mass/Vol] 0.72 mg/dL 0.52 - 1.25 mg/dL [facility] Work Phone: EGFR IF NonAfrican Filipino >60.0 >60 mL/min [facility] Work Phone: Comment on above: Source- MDRD equatio n with creatinine calibration to IDMS(NKDEP) eGFR not recommended for drug dose adjustment GFR/1.73 sq M.predicted among blacks MDRD (S/P/Bld) [Vol rate/Area] mL/min/{1.73_m2} >60 mL/min [facility] Work Phone: Glucose [Mass/Vol] 112 mg/dL High 70 - 100 mg/dL [facility] Work Phone: Interpretation and review of laboratory results Abnormal [facility] Work Phone: Potassium [Moles/Vol] 3.6 mmol/L 3.5 - 5.1 mmol/L [facility] Work Phone: Sodium [Moles/Vol] 139 mmol/L 135 - 145 mmol/L [employer] Work Phone: Urea nitrogen [Mass/Vol] 16 mg/dL 7 - 20 mg/dL [facility] Work Phone: Test Performed by [facility], [address] [place] [address] [place] , [place] [address] [facility] Work Phone: CR Chest Portableon 11-11-19 20 CR Chest Portable Patient Name: CARINE BARBA Diagnostic Radiology Exam Date/Time 11/11/2019 19:53:25 EST Exam CR Chest Portable Ordering Physician MD ERWIN, DAVID Ellis Accession Number [id number] CPT4 Codes 62054 () Reason For Exam ASTHMA SOB Report Examination: Portable chest Indication: ASTHMA SOB Comparison: 03/17/2018 Findings: There is mild increased density of the bilateral lung bases. There is otherwise no focal consolidation, sizable pleural effusion or pneumothorax. The cardiac silhouette and mediastinum are within normal limits. Plate and screw fixation of the left clavicle is noted. Impression: Mildly increased density of the bilateral lower hemithoraces may be secondary to mild infiltrate, atelectasis and/or small pleural effusions. Follow-up is recommended. Report Dictated on Final Dictating Physician: MD THOMPSON KRIKOR Signed Date and Time: 11/11/2019 8:01 pm Signed by: MD THOMPSON KRIKOR Transcribed Date and Time: 11/11/2019 8:02 Normal [facility] Hemogram (CBC) w/Auto DiffOr dered By: David Granger on 11-11-2019 Absolute Baso # 0.0 10*3/uL 0 - 0.2 10*3/uL [facility] Work Phone: Absolute Neut # 6.0 10*3/uL 1.8 - 7 10*3/uL [employer] Work Phone: Basophils/100 WBC (Bld) 0.4 % 0 - 2 % [facility] Work Phone: Eosinophils (Bld) [#/Vol] 0.4 10*3/uL 0 - 0.5 10*3/uL [facility] Work Phone: Eosinophils/100 WBC (Bld) 4.1 % 1 - 6 % [facility] Work Phone: Erythrocyte distribution width (RBC) [Ratio] 13.8 % 11.5 - 14.5 % [facility] Work Phone: Granulocytes/100 WBC (Bld) 67.2 % 40 - 80 % [facility] Work Phone: Hematocrit (Bld) [Volume fraction] 41.4 % 35 - 47 % [facility] Work Phone: Hemoglobin (Bld) [Mass/Vol] 14.1 g/dL 11.7 - 16 g/dL [facility] Work Phone: Lymphocytes (Bld) [#/Vol] 2.0 10*3/uL 1 - 4.3 10*3/uL [facility] Work Phone: Lymphocytes/100 WBC (Bld) 22.7 % 20 - 40 % [facility] Work Phone: MCH (RBC) [Entitic mass] 32.9 pg 26 - 34 pg [facility] Work Phone: MCHC 34.0 % 32 - 36 % [facility] Work Phone: MCV (RBC) [Entitic vol] 96.8 fL 79 - 98 fL [facility] Work Phone: Monocytes (Bld) [#/Vol] 0.5 10*3/uL 0 - 0.8 10*3/uL [facility] Work Phone: Monocytes/100 WBC (Bld) 5.6 % 2 - 10 % [facility] Work Phone: Platelet mean volume (Bld) [Entitic vol] 8.8 fL 7.4 - 10.4 fL [facility] Work Phone: Platelets (Bld) [#/Vol] 260 10*3/uL 140 - 440 10*3/uL [facility] Work Phone: RBC (Bld) [#/Vol] 4.28 10*6/uL 3.8 - 5.2 10*6/uL [facility] Work Phone: WBC (Bld) [#/Vol] 8.9 10*3/uL 3.6 - 10.7 10*3/uL [facility] Work Phone: Test Performed by [facility], [address] , [place], [place] [address] [facility] Work Phone: Hemogram w/ Autodiffon 11-11 Abs Baso Cnt 0.0 10*3/uL Normal 0.0-0.2 [facility] Comment on above: Performed By: #### H EMDF, BMP3 #### [facility] [address] [place] [address] Abs Neutrophile Cnt 6.0 10*3/uL Normal 1.8-7.0 [facility] Comment on above: Performed By: #### H EMDF, BMP3 #### [facility] [address] [place] [address] Basophils/100 WBC (Bld) 0.4 % Normal 0.0-2.0 [facility] Comment on above: Performed By: #### H EMDF, BMP3 #### [facility] [address] [place] [address] Eosinophils (Bld) [#/Vol] 0.4 10*3/uL Normal 0.0-0.5 [facility] Comment on above: Performed By: #### H EMDF, BMP3 #### [facility] [address] [place] [address] Eosinophils/100 WBC (Bld) 4.1 % Normal 1.0-6.0 [facility] Comment on above: Performed By: #### H EMDF, BMP3 #### [facility] [address] [place] [address] Erythrocyte distribution width (RBC) [Ratio] 13.8 % Normal 11.5-14.5 [facility] Comment on above: Performed By: #### H EMDMeagan BMP3 #### [facility] [address] [place] [address] Granulocytes/100 WBC (Bld) 67.2 % Normal 40.0-80.0 [facility] Comment on above: Performed By: #### H RADHA BMP3 #### [facility] [address] [place] [address] Hematocrit (Bld) [Volume fraction] 41.4 % Normal 35.0-47.0 [facility] Comment on above: Performed By: #### H RADHA BMP3 #### [facility] [address] [place] [address] Hemoglobin (Bld) [Mass/Vol] 14.1 g/dL Normal 11.7-16.0 [facility] Comment on above: Performed By: #### H RADHA BMP3 #### [facility] [address] [place] [address] Lymphocytes (Bld) [#/Vol] 2.0 10*3/uL Normal 1.0-4.3 [facility] Comment on above: Performed By: #### H RADHA BMP3 #### [facility] [address] [place] [address] Lymphocytes/100 WBC (Bld) 22.7 % Normal 20.0-40.0 [facility] Comment on above: Performed By: #### H RADHA BMP3 #### [facility] [address] [place] [address] MCH (RBC) [Entitic mass] 32.9 pg Normal 26.0-34.0 [facility] Comment on above: Performed By: #### H RADHA BMP3 #### [facility] [address] [place] [address] MCHC (RBC) [Mass/Vol] 34.0 % Normal 32.0-36.0 [facility] Comment on above: Performed By: #### H RADHA BMP3 #### [facility] [address] [place] [address] MCV (RBC) [Entitic vol] 96.8 fL Normal 79.0-98.0 [facility] Comment on above: Performed By: #### H RADHA BMP3 #### [facility] [address] [place] [address] Monocytes (Bld) [#/Vol] 0.5 10*3/uL Normal 0.0-0.8 [facility] Comment on above: Performed By: #### H RADHA BMP3 #### [facility] [address] [place] [address] Monocytes/100 WBC (Bld) 5.6 % Normal 2.0-10.0 [facility] Comment on above: Performed By: #### H RADHA, BMP3 #### [facility] [address] [place] [address] Platelet mean volume (Bld) [Entitic vol] 8.8 fL Normal 7.4-10.4 [facility] Comment on above: Performed By: #### H RADHA, BMP3 #### [facility] [address] [place] [address] Platelets (Bld) [#/Vol] 260 10*3/uL Normal 140-440 [facility] Comment on above: Performed By: #### H RADHA, BMP3 #### [facility] [address] [place] [address] RBC (Bld) [#/Vol] 4.28 10*6/uL Normal 3.80-5.20 [facility] Comment on above: Performed By: #### H EMDF, BMP3 #### [facility] [address] [place] [address] WBC (Bld) [#/Vol] 8.9 10*3/uL Normal 3.6-10.7 [facility] Comment on above: Performed By: #### H EMDF, BMP3 #### [facility] [address] [place] [address] Rapid Flu A AND B, RNAon Rapid Influenza A Not Detected Normal Not Detected [facility] Comment on above: Performed By: #### R PFAB #### [facility] [address] [place] [address] Rapid Influenza B Not Detected Normal Not Detected [facility] Comment on above: Result Comment: Meth od: Isothermal nucleic acid amplification technology. Performed By: #### R PFAB #### [facility] [address] [place] [address] Rapid Influenza A/B Antigens Ordered By: David Granger on 11-11-2019 INFLUENZA A Not detected Not Detected NA [facility] Work Phone: INFLUENZA B Not detected Not Detected NA [employer] Work Phone: Comment on above: Method: Isothermal n ucleic acid amplification technology. Test Performed by [facility], [address] , [address] Work Phone: XR CHEST PORTABLEOrdered By: David Granger on 11-11-2019 Patient Name: CARINE BABRA ---Diagnostic Radiology--- Exam Date/Time 11/11/2019 19:53:25 EST Exam CR Chest Portable Ordering Physician MD ERWIN, DAVID Ellis Accession Number [id number] CPT4 Codes 17812 () Reason For Exam ASTHMA SOB Report Examination: Portable chest Indication: ASTHMA SOB Comparison: 03/17/2018 Findings: There is mild increased density of the bilateral lung bases. There is otherwise no focal consolidation, sizable pleural effusion or pneumothorax. The cardiac silhouette and mediastinum are within normal limits. Plate and screw fixation of the left clavicle is noted. Impression: Mildly increased density of the bilateral lower hemithoraces may be secondary to mild infiltrate, atelectasis and/or small pleural effusions. Follow-up is recommended. Report Dictated on --- Final --- Dictating Physician: MD THOMPSON KRIKOR Signed Date and Time: 11/11/2019 8:01 pm Signed by: MD THOMPSON KRIKOR Transcribed Date and Time: 11/11/2019 8:02 [facility] Work Phone: [facility], [facility] Incoming Radiology Results From [facility] - 11/11/2019 8:02 PM EST Patient Name: CARINE BARBA ---Diagnostic Radiology--- Exam Date/Time 11/11/2019 19:53:25 EST Exam CR Chest Portable Ordering Physician MD ERWIN, DAVID Ellis Accession Number [id number] CPT4 Codes 42320 () Reason For Exam ASTHMA SOB Report Examination: Portable chest Indication: ASTHMA SOB Comparison: 03/17/2018 Findings: There is mild increased density of the bilateral lung bases. There is otherwise no focal consolidation, sizable pleural effusion or pneumothorax. The cardiac silhouette and mediastinum are within normal limits. Plate and screw fixation of the left clavicle is noted. Impression: Mildly increased density of the bilateral lower hemithoraces may be secondary to mild infiltrate, atelectasis and/or small pleural effusions. Follow-up is recommended. Report Dictated on --- Final --- Dictating Physician: MD THOMPSON KRIKOR Signed Date and Time: 11/11/2019 8:01 pm Signed by: MD THOMPSON KRIKOR Transcribed Date and Time: 11/11/2019 8:02 [facility] Work Phone: [facility] Note on 12-07-2017 [facility] Normal [facility] ([place]) Pat Eduon 12-07-2017 Pat Edu Normal [facility] ([place]) Patient Summary Documentson 12-07-2017 Patient Summary Documents Normal [facility] ([place]) [facility] on 10-07-2017 [facility] Normal [facility] ([place]) Patient Summary Documentson 10-06-2017 Patient Summary Documents Normal [facility] ([place]) ED Note-Provideron 7 ED Note-Provider Normal [facility] ([place]) Patient Summary Documentson 06-09-2017 Patient Summary Documents Normal [facility] ([place]) [facility] on 06-07-2017 [facility] Normal [facility] ([place]) Patient Summary Documentson 06-06-2017 Patient Summary Documents Normal [facility] ([place]) Vital Signs Date Time Vital Sign Value Performing Clinician Facility 04-15-2025 11:48-0400 SaO2% (BldA) [Mass fraction] 95 % Vincent Nesheim DO Work Phone: [facility] [place] 04-15-2025 07:00-0400 Body temperature 97.2 [degF] Vincent Nesheim DO Work Phone: [facility] 04-15-2025 07:00-0400 Diastolic blood pressure 82 mm[Hg] Vincent Nesheim DO Work Phone: [facility] 04-15-2025 07:00-0400 Heart rate 112 /min Vincent Nesheim DO Work Phone: [facility] 04-15-2025 07:00-0400 Respiratory rate 16 /min Vincent Nesheim DO Work Phone: [facility] 04-15-2025 07:00-0400 Systolic blood pressure 130 mm[Hg] Vincent Nesheim DO Work Phone: [facility] 04-15-2025 01:02-0400 Body height 167.6 cm Vincent Nesheim DO Work Phone: [facility] 04-15-2025 01:02-0400 Body mass index (BMI) [Ratio] 27.44 kg/m2 Vincent Nesheim DO Work Phone: [facility] 04-15-2025 01:02-0400 Body weight 77.11 kg Vincent Nesheim DO Work Phone: [facility] 01-08-2025 03:11-0400 Diastolic blood pressure 64 mm[Hg] Giancarlo Batres MD Work Phone: [facility] 01-08-2025 03:11-0400 Heart rate 100 /min Giancarlo Batres MD Work Phone: [facility] 01-08-2025 03:11-0400 Respiratory rate 20 /min Giancarlo Batres MD Work Phone: [facility] 01-08-2025 03:11-0400 SaO2% (BldA) [Mass fraction] 96 % Giancarlo Batres MD Work Phone: [facility] 01-08-2025 03:11-0400 Systolic blood pressure 117 mm[Hg] Giancarlo Batres MD Work Phone: [facility] 01-08-2025 01:54-0400 Body height 170.2 cm Giancarlo Batres MD Work Phone: [facility] 01-08-2025 01:54-0400 Body mass index (BMI) [Ratio] 26.63 kg/m2 Giancarlo Batres MD Work Phone: [facility] 01-08-2025 01:54-0400 Body temperature 99 [degF] Giancarlo Batres MD Work Phone: [facility] 01-08-2025 01:54-0400 Body weight 77.11 kg Giancarlo Batres MD Work Phone: [facility] 03-23-2022 10:53-0400 Respiratory rate 16 /min [facility] Work Phone: 03-23-2022 08:42-0400 Diastolic blood pressure 88 mm[Hg] [facility] Work Phone: 03-23-2022 08:42-0400 Heart rate 86 /min [facility] Work Phone: 03-23-2022 08:42-0400 SaO2% (BldA) [Mass fraction] 97 % [facility] Work Phone: 03-23-2022 08:42-0400 Systolic blood pressure 160 mm[Hg] [facility] Work Phone: 03-23-2022 06:42-0400 Body height 170.18 cm [facility] Work Phone: 03-23-2022 06:42-0400 Body mass index (BMI) [Ratio] 32.3 kg/m2 [facility] Work Phone: 03-23-2022 06:42-0400 Body temperature 97.9 [degF] [facility] Work Phone: 03-23-2022 06:42-0400 Body weight 93.7 kg [facility] Work Phone: 07-05-2020 11:10-0400 Pulse (Heart Rate) 85 /min [facility] [place] 07-05-2020 11:10-0400 Pulse Oximetry 95 % [facility] [place] [facility] [place] 07-05-2020 10:14-0400 BP Diastolic 63 mm[Hg] [facility] [place] , [place] 07-05-2020 10:14-0400 BP Systolic 113 mm[Hg] [facility] [place] , [place] 07-05-2020 10:14-0400 Respiratory Rate 16 /min [facility] [place] 07-05-2020 09:11-0400 BMI (Body Mass Index) 28.19 kg/m2 [facility], [place] 07-05-2020 09:11-0400 Body Temperature 98.2 [degF] [facility] [place] 07-05-2020 09:11-0400 Body weight 81.65 kg [facility] [place] , [place] 07-05-2020 09:11-0400 Height 170.2 cm [facility] [place] 06-08-2020 05:18-0400 BP Diastolic 66 mm[Hg] [facility] [place] , [place] 06-08-2020 05:18-0400 BP Systolic 123 mm[Hg] [facility] [place] , [place] 06-08-2020 05:18-0400 Pulse (Heart Rate) 88 /min [facility] [place] 06-08-2020 05:18-0400 Pulse Oximetry 99 % [facility] [place] , [place] 06-08-2020 05:18-0400 Respiratory Rate 16 /min [facility] [place] [facility] [place] 06-08-2020 02:35-0400 BMI (Body Mass Index) 28.19 kg/m2 [facility], [place] 06-08-2020 02:35-0400 Body Temperature 98.49 [degF] [facility], [place] 06-08-2020 02:35-0400 Body weight 81.65 kg [facility] [place] , [place] 06-08-2020 02:35-0400 Height 170.2 [facility] [place] 04-29-2020 11:24-0400 BP Diastolic 69 mm[Hg] Nimo [facility] , [place] 04-29-2020 11:24-0400 BP Systolic 110 mm[Hg] Nimo [facility] , [place] 04-29-2020 11:24-0400 Pulse (Heart Rate) 101 /min Nimo [facility] 04-29-2020 11:24-0400 Pulse Oximetry 97 % Nimo [facility] , [place] 04-29-2020 11:24-0400 Respiratory Rate 20 /min Nimo [facility], [place] 04-29-2020 09:16-0400 Body Temperature 98.4 [degF] Nimo [facility], [place] 11-12-2019 11:47-0500 SaO2% (BldA) [Mass fraction] 96 % David Granger MD Work Phone: [employer] Work Phone: 11-12-2019 07:32-0500 Body temperature 98.01 [degF] David Granger MD Work Phone: [facility] Work Phone: 11-12-2019 07:32-0500 Diastolic blood pressure 84 mm[Hg] David Granger MD Work Phone: [facility] Work Phone: 11-12-2019 07:32-0500 Heart rate 81 /min David Granger MD Work Phone: [facility] Work Phone: 11-12-2019 07:32-0500 Respiratory rate 18 /min David Granger MD [facility] Phone: [facility] Work Phone: 11-12-2019 07:32-0500 Systolic blood pressure 124 mm[Hg] David Granger MD Work Phone: [facility] Work Phone: 11-11-2019 17:39-0500 Body height 170.2 cm David Granger MD Work Phone: [facility] Work Phone: 11-11-2019 17:39-0500 Body mass index (BMI) [Ratio] 28.98 kg/m2 David Granger MD Work Phone: [facility] Work Phone: 11-11-2019 17:39-0500 Body weight 83.92 kg David Granger MD Work Phone: [facility] Work Phone: Encounters Encounter Date Encounter Type Care Provider Facility Start: 04-16-2025 End: 04-16-2025 Telephone encounter [facility] Clinical Communication Comment on above: Hospital Follow-up Start: 04-15-2025 End: 04-15-2025 Telephone encounter Emelia Rucker FAST FOOD MANAGER - RADIOGRAPHER CARDIAC CATHETERIZATION Work Phone: [facility] [place] Start: 04-14-2025 End: 04-15-2025 ambulatory [facility] Start: 04-14-2025 End: 04-15-2025 Evaluation and management of inpatient Vincent Huitron DO Work Phone: [facility] Medical Unit [facility] Comment on above: Severe persistent as thma with exacerbation (Primary Dx) Start: 01-08-2025 End: 01-08-2025 Emergency department patient visit Giancarlo Batres MD Work Phone: [facility] ED Comment on above: Moderate persistent asthma with exacerbation (Primary Dx) Start: 10-18-2024 Emergency department patient visit Facility:[facility] Start: 10-17-2024 End: 10-17-2024 ambulatory No Primary Care Physician Facility:[facility] Start: 10-16-2024 End: 10-16-2024 Emergency department patient visit No Primary Care Physician Facility:[facility] Start: 03-23-2022 End: 03-23-2022 Emergency department patient visit [facility] Start: 07-05-2020 End: 07-05-2020 Emergency department patient visit Anca Almaguer Work Phone: [facility] Comment on above: Exacerbation of asth ma, unspecified asthma severity, unspecified whether persistent (Primary Dx) Start: 06-08-2020 End: 06-08-2020 Emergency department patient visit Anca Almaguer Work Phone: [facility] Comment on above: Exacerbation of asth ma, unspecified asthma severity, unspecified whether persistent (Primary Dx) Start: 04-29-2020 End: 04-29-2020 Emergency department patient visit Nimo Hughes Work Phone: [facility] Comment on above: Moderate persistent asthma with exacerbation (Primary Dx) Start: 11-11-2019 End: 11-12-2019 Emergency department patient visit David Granger MD Work Phone: [facility] Comment on above: Moderate persistent asthma with acute exacerbation (Primary Dx); Infiltrate of lower lobe of right lung present on imaging study Start: 12-07-2017 End: 12-07-2017 Emergency department patient visit ALVARO BLACK Facility:B Start: 10-06-2017 End: 10-07-2017 Emergency department patient visit [facility] Facility:B Start: 06-09-2017 End: 06-09-2017 Emergency department patient visit SILVIO ALCALA Facility:B Start: 06-06-2017 End: 06-06-2017 Emergency department patient visit [facility] Facility:B Start: 11-04-2016 End: 11-05-[address] [facility] Facility:[facility] Procedures Date Procedure Procedure Detail Performing Clinician Start: 04-15-2025 Blood gases any comb ination ph pco2 po2 co2 hco3 Prabhjot Foote MD Work Phone: Start: 04-14-2025 Procalcitonin (pct) Poli leila Kaushal Gomez DO Work Phone: Start: 04-14-2025 Respiratory pathogen s DNA and RNA panel - Nasopharynx by DAJA with non-probe detection Quinton Gomez DO Work Phone: Start: 04-14-2025 SARS-COV-2, FLU A/B, AND RSV COMBO Vincent G Nesheim DO Work Phone: Start: 04-14-2025 Ecg routine ecg w/le ast 12 lds trcg only w/o i&r Vincent G Alannahheim DO Work Phone: Start: 04-14-2025 End: 04-14-2025 Basic metabolic panel calcium total Vincent G Alannahheim DO Work Phone: Start: 04-14-2025 Radiologic exam ches t single view Vincent G Alannahheim DO Work Phone: Start: 01-08-2025 Radiologic exam ches t single view Giancarlo Batres MD Work Phone: Start: 01-08-2025 Comprehensive metabo lic panel Giancarlo Batres MD Work Phone: Start: 01-08-2025 SARS-COV-2, FLU A/B, AND RSV COMBO Giancarlo Batres MD Work Phone: Start: 03-23-2022 End: 03-23-2022 Viral antigen assay Start: 03-23-2022 Plain chest X-ray Start: 07-05-2020 Assay of troponin quantitative Anca Almaguer Work Phone: Start: 07-05-2020 Basic metabolic pane l calcium total Anca Almaguer Work Phone: Start: 07-05-2020 Blood count complete auto&auto difrntl wbc Anca Almaguer Work Phone: Start: 07-05-2020 Fibrin dgradj produc ts d-dimer quantitative Anca Almaguer Work Phone: Start: 07-05-2020 Ecg routine ecg w/le ast 12 lds w/i&r Anca Almaguer Work Phone: Start: 06-08-2020 Ecg routine ecg w/le ast 12 lds w/i&r Anca Almaguer Work Phone: Start: 06-08-2020 Basic metabolic pane l calcium total Anca Hernandeza Work Phone: Start: 06-08-2020 Blood count complete auto&auto difrntl wbc Anca Almaguer Work Phone: Start: 06-08-2020 Fibrin dgradj produc ts d-dimer quantitative Ancainez Hernandeza Work Phone: Start: 06-08-2020 Assay of troponin quantitative Anca Almaguer Work Phone: Start: 06-08-2020 Radiologic exam ches t 2 views Anca Almaguer Work Phone: Start: 04-29-2020 Radiologic exam ches t single view Nimo Hughes Work Phone: Start: 04-29-2020 Basic metabolic pane l calcium total Nimo Hughes Work Phone: Start: 04-29-2020 Blood count complete auto&auto difrntl wbc Nimo Hughes Work Phone: Start: 11-11-2019 Iaadiadoo influenza Juan José Granger MD Work Phone: Start: 11-11-2019 Basic metabolic pane l calcium total David Granger MD Work Phone: Start: 11-11-2019 Radiologic exam ches t single view David Granger MD Work Phone: Start: 11-11-2019 NEBULIZER TX INTERMITTENT David Granger MD Work Phone: Start: 11-11-2019 End: 11-11-2019 NEBULIZER TX INTERMITTENT David cuenca MD Work Phone: Start: 11-04-2016 KNEE ARTHROSCOPY/SURGERY LEXY OZUNA Plan of Treatment Date Care Activity Detail Author Start: 2066 RSV Immunization for Adults (1 - 1-dose 75+ series) RSV Immunization for Adults (1 - 1-dose 75+ series) 10-20 [facility] [place] Start: 2041 Zoster Vaccines (1 of 2) Zoste r Vaccines (1 of 2) 10-20 [facility] [place] Start: 06-24-2025 Influenza vaccination Influenz a Vaccine (Season Ended) [facility] Start: 04-17-2025 End: 04-17-2025 Patient encounter procedure 04/17/2025 10:10 AM EDT Office Visit [facility] [place] [address] [place] [address] Tal Davila, FAST FOOD MANAGER - RADIOGRAPHER CARDIAC CATHETERIZATION [address] [place] [address] [facility] [place] Start: 06-24-2024 COVID-19 Vaccine ( season) COVID-19 Vaccine ( season) [facility] Start: 06-24-2024 Influenza vaccination Influenza Vacc ine (#1) [facility] Start: 2021 Screening for malign ant neoplasm of cervix [facility] Start: 06-24-2020 Influenza vaccination Flu vaccine (# 1) [facility] [place] [place] Start: 11-27-2019 End: 11-27-2019 Patient encounter procedure 11/27/2019 Office Visit Family Medicine Monika Layne MD [address] [place] [address] [phone] [facility] Start: 11-19-2019 End: 11-12-2020 XR CHEST STANDARD (2 VW) XR CHEST STANDARD (2 VW) Imaging Routine Infiltrate of lower lobe of right lung present on imaging study Expected: 11/19/2019, Expires: 11/12/2020 [facility] Work Phone: Comment on above: Expected: 11/19/2019 , Expires: 11/12/2020 Start: 06-24-2019 Influenza vaccination Flu vaccine (# 1) [facility] Work Phone: Start: 01-12-2012 Cervical cancer screen Cervical canc er screen [facility] Work Phone: Start: 01-12-2012 Screening for malign ant neoplasm of cervix [facility] Start: 2010 DTaP/Tdap/Td Vaccine s (1 - Tdap) DTaP/Tdap/Td Vaccines (1 - Tdap) [facility] Start: 2010 Hepatitis B Vaccines (1 of 3 - 19+ 3-dose series) Hepatitis B Vaccines (1 of 3 - 19+ 3-dose series) [facility] Start: 2010 Pneumococcal Vaccine : Pediatrics (0 to 5 Years) and At-Risk Patients (6 to 49 Years) (1 of 2 - PCV) Pneumococcal Vaccine: Pediatrics (0 to 5 Years) and At-Risk Patients (6 to 49 Years) (1 of 2 - PCV) [facility] Start: 2009 Hepatitis C screening Hepatitis C Sc reening [facility] Start: 2006 HIV screen HIV screen [facility] Work Phone: Start: 2006 HIV screening HIV screen Manisha Phan [facility] [place] [facility] Start: 01-12-2004 Varicella vaccination Varicell a Vaccines (1 of 2 - 13+ 2-dose series) [facility] Start: 2003 Depression Screening Depression Scre ening [facility] Start: 2002 DTaP/Tdap/Td vaccine (6 - Tdap) DTaP/Tdap/Td vaccine (6 - Tdap) [facility] Work Phone: Start: 1997 Pneumococcal 0-64 ye ars Vaccine (1 of 1 - PPSV23) Pneumococcal 0-64 years Vaccine (1 of 1 - PPSV23) [facility] Work Phone: Start: 01-12-1992 MMR Vaccines (1 of 1 - Standard series) MMR Vaccines (1 of 1 - Standard series) [facility] Start: 01-12-1992 Varicella vaccine (1 of 2 - 2-dose childhood series) Varicella vaccine (1 of 2 - 2-dose childhood series) [facility] Work Phone: Start: 1991 [facility] Start: 1991 Lipid panel Lipid Panel [facility] EKG 12 Lead [facility] [place] [facility] Treatment [facility] Work Phone: Comment on above: 0800, 1200, 1600, 20 00 (respiratory use only) until discontinued starting 04/29/2020 Every 4hr while awak e until discontinued starting 11/12/2019 0600, 1000, 1400, 18 00, 2200 until discontinued starting 11/11/2019 Patient Education ED Anxiety Rougon ction ED Chest Pain, Noncardiac [facility] Work Phone: Patient referral [facility] Work Phone: End: 11-11-2019 Pulse Oximetry Spot Check Pulse Oximetry Spot Check Respiratory Care Routine One Time for 1 Occurrences starting 11/11/2019 until 11/11/2019 [facility] Work Phone: Comment on above: One Time for 1 Occur rences starting 11/11/2019 until 11/11/2019 Payers Date Payer Category Payer Medicaid HMO [employer] [facility] [id number] 2024 Medicaid [id number] 2024 Self-pay [id number] 2019 Unknown [employer] [facility] MEDICAID xxxxxxxxxxx 2019-Present [phone] CLAIMS DEPARTMENT [address] [place] [address] xxxxxxxxxxx [id number] 2017 Medicaid [id number] Unknown [id number] Unknown [id number] Unknown [id number] Social History Date Type Detail Facility Start: 11-11-2019 End: 01-08-2025 Tobacco smoking status NHIS Current every day smoker [facility] Work Phone: Start: 11-11-2019 End: 04-15-2025 Cigarettes smoked current (pack per day) - Reported [facility] Work Phone: History of tobacco use Chews Tobacco [facility] Work Phone: Start: 11-11-2019 End: 04-14-2025 Alcohol intake Current drinker of alcohol (finding) [facility] Work Phone: Start: 02-28-2018 Alcohol Comment 2-3 shots/day intermittently [facility] Work Phone: Start: 1990 Sex Assigned At Not on file [employer] Phone: Exposure to SARS-CoV -2 (event) Unable to assess [employer], Sun Number Start: 06-08-2020 End: 07-05-2020 Tobacco smoking status NHIS Former smoker [employer] Sun Number Start: 06-08-2020 End: 01-08-2025 Tobacco use and exposure Current user [place] Exposure to SARS-CoV -2 (event) Not sure [employer], Sun Number Start: 03-23-2022 Tobacco smoking status NHIS Unknown if ever smoked [facility] Work Phone: Start: 04-16-2019 None [facility] Work Phone: Start: 04-16-2019 With Family [facility] Work Phone: Start: 07-12-2020 Cigarettes [facility] Work Phone: Start: 1990 Sex Assigned At Female [facility] Work Phone: History of tobacco use Cigarette Smoker [facility] [place] Start: 01-08-2025 End: 04-15-2025 Alcohol Use Disorder Identification Test - Consumption [AUDIT-C] [facility] [place] Frequency of Alcohol Consumption Not on file [facility] Start: 05-24-2022 Sex Female (finding) [facility] Has the electric, [employer], [employer], or water company threatened to shut off services in your home in past 12Mo No [facility] [place] How often to you hav e a drink containing alcohol? Never [facility] [place] (I/We) worried [facility] (my/our) food would run out before (I/we) got money to buy more. Never true [facility] Functional Status Date Assessment Result Facility 04-15-2025 Drug Abuse Screening Test-10 [DAST-10] [facility] Mental Status Date Assessment Result Facility 03-23-2022 Cognitive function Level Of Cons ciousness Awake;Alert;Appropriate [facility] Work Phone: Clinical Notes 10-18-2024 to 04-17-2025 Telephone Encounter - Anna Thompson RN - 04/17/2025 2:32 PM EDTTelephone Encounter - Anna Thompson RN - 04/17/2025 2:32 PM Gabbi Allison MD - 04/15/2025 3:56 PM EDTDischarge Instructions Note Date & Type Note Facility 04-17-2025 Telephone encount er Note Patient's had follow up appointment today with Tal Davila per [employer]. Unable to contact patient. [facility] 04-17-2025 Miscellaneous Notes Formattin g of this note might be different from the original. Patient's had follow up appointment today with Tal Davila per [employer]. Unable to contact patient. Unable to contact patient for pulmonary call documented in this encounter [facility] 04-17-2025 Note Referral from Inpati ent. Chart reviewed, noted patient left AMA. Unable to follow at this time. [facility] 04-16-2025 Telephone encount er Note Unable to contact patient for pulmonary call [facility] 04-16-2025 Miscellaneous Notes Formattin g of this note might be different from the original. Unable to contact patient for pulmonary call documented in this encounter [facility] 04-15-2025 Telephone encount er Note Opened in error [facility] [place] Work Phone: 04-15-2025 Miscellaneous Notes Formattin g of this note might be different from the original. Opened in error documented in this encounter [facility] 04-15-2025 Hospital course Narrative Images from the original note were not included. Discharge Summary Carine Barba : 1990 ADMIT DATE: 04/14/2025 DISCHARGE DATE: 04/15/2025 PRIMARY CARE PHYSICIAN: AISHWARYA IVORY VISIT STATUS: Admission CODE STATUS: Full Code DISCHARGE DIAGNOSES: Principal Problem: Severe persistent asthma with exacerbation HOSPITAL COURSE: Carine is a 35-year-old female with history of anxiety, asthma, multiple fractures before, history of blood clots presented to emergency room with shortness of breath. She initially presented [place] ED, found to be asthma exacerbation, stabilized on 2 L of nasal cannula, patient has history of smoking, has not used smoking for several days. Patient transferred to [facility]. Admitted for further evaluation and treatment. Respiratory pathogen panel negative including COVID Chest x-ray shows no radiographic acute cardiopulmonary process. Consulted pulmonology, seen the patient, recommends, started on Dulera, nebulization, IV Solu-Medrol, can likely DC antibiotics as respiratory panel negative, no signs or symptoms of concomitant CAP appreciated. Patient is seen and examined She is sitting in her bed, complaining of headache, states Tylenol and Toradol not working, ordered one-time dose of oxycodone, patient also complaining of some anxiety, denies using any medication for anxiety before, Vistaril started. Received message from that patient wants to leave AMA, discussed with pulmonary team via secure chat who advised patient should stay in the hospital for management of asthma exacerbation with IV Solu-Medrol and other medications, if she leaves AMA can send Dulera, prednisone tapering dose, follow-up with pulmonary Patient signed AMA, prescription sent to her preferred pharmacy SIGNIFICANT DIAGNOSTIC STUDIES: CONSULTANTS: Pulmonology RECOMMENDED NEXT STEPS: Follow-up with PCP, pulmonology DISCHARGE MEDICATIONS: Medication List START taking these medications doxycycline 100 MG capsule Commonly known as: Vibramycin Take 1 capsule (100 mg) by mouth 2 times daily for 5 days. Take with at least 8 ounces (large glass) of water, do not lie down for 30 minutes after guaiFENesin 100 MG/5ML liquid Commonly known as: Robitussin Take 10 mL (200 mg) by mouth every 4 hours as needed for cough for up to 10 days. hydrOXYzine pamoate 25 MG capsule Commonly known as: Vistaril Take 1 capsule (25 mg) by mouth every 6 hours as needed for anxiety for up to 3 days. mometasone-formoterol 200-5 MCG/ACT inhaler Commonly known as: Dulera 200 Inhale 2 puffs 2 times daily. Rinse mouth with water after use to reduce aftertaste and incidence of candidiasis. Do not swallow. predniSONE 20 MG tablet Commonly known as: Deltasone Take 3 tabs (60mg) daily for 3 days, then take 2 tabs (40mg) daily for 3 days, then take 1 tab (20mg) daily for 3 days. CONTINUE taking these medications * albuterol (2.5 MG/3ML) 0.083% nebulizer solution Take 3 mL (2.5 mg) by nebulization every 6 hours as needed for wheezing. * albuterol 108 (90 Base) MCG/ACT inhaler Inhale 2 puffs every 4 hours as needed for wheezing. * This list has 2 medication(s) that are the same as other medications prescribed for you. Read the directions carefully, and ask your doctor or other care provider to review them with you. Where to Get Your Medications These medications were sent to [facility]/pharmacy #[id number] - [address] [address] albuterol 108 (90 Base) MCG/ACT inhaler doxycycline 100 MG capsule guaiFENesin 100 MG/5ML liquid hydrOXYzine pamoate 25 MG capsule mometasone-formoterol 200-5 MCG/ACT inhaler predniSONE 20 MG tablet DIET: Adult diet Regular ACTIVITY: _ COMPLEXITY OF FOLLOW UP: [] Moderate Complexity: follow up within 7-14 calendar days (39019) [] Severe Complexity: follow up within 7 calendar days (43451) FOLLOW UP TESTING, PENDING RESULTS OR REFERRALS AT TRANSITIONAL CARE VISIT: [] Yes [] No PENDING STUDIES: DISPOSITION: AMA FACILITY/HOME CARE AGENCY NAME: Follow up with No follow-up provider specified. INSTRUCTIONS TO MA/SW: Please call patient on day after discharge (must document patient contacted within 2 business days of discharge). FOLLOW UP QUESTIONS FOR MA/SW: 1. Did you get medications filled and taking them as instructed from discharge? 2. Are you following your discharge instructions from your hospital stay? 3. Please confirm patient is scheduled for a follow up appointment within the above time frame. DISCHARGE TIME: SIGNED: Perez Allison MD 04/15/2025, 4:37 PM documented in this encounter [facility] 04-15-2025 Note Discharge Summary Carine Barba : 1990 ADMIT DATE: 04/14/2025 DISCHARGE DATE: 04/15/2025 PRIMARY CARE PHYSICIAN: AISHWARYA IVORY VISIT STATUS: Admission CODE STATUS: Full Code DISCHARGE DIAGNOSES: Principal Problem: Severe persistent asthma with exacerbation HOSPITAL COURSE: Carine is a 35-year-old female with history of anxiety, asthma, multiple fractures before, history of blood clots presented to emergency room with shortness of breath. She initially presented [place] ED, found to be asthma exacerbation, stabilized on 2 L of nasal cannula, patient has history of smoking, has not used smoking for several days. Patient transferred to [facility]. Admitted for further evaluation and treatment. Respiratory pathogen panel negative including COVID Chest x-ray shows no radiographic acute cardiopulmonary process. Consulted pulmonology, seen the patient, recommends, started on Dulera, nebulization, IV Solu-Medrol, can likely DC antibiotics as respiratory panel negative, no signs or symptoms of concomitant CAP appreciated. Patient is seen and examined She is sitting in her bed, complaining of headache, states Tylenol and Toradol not working, ordered one-time dose of oxycodone, patient also complaining of some anxiety, denies using any medication for anxiety before, Vistaril started. Received message from that patient wants to leave AMA, discussed with pulmonary team via secure chat who advised patient should stay in the hospital for management of asthma exacerbation with IV Solu-Medrol and other medications, if she leaves AMA can send Dulera, prednisone tapering dose, follow-up with pulmonary Patient signed AMA, prescription sent to her preferred pharmacy SIGNIFICANT DIAGNOSTIC STUDIES: CONSULTANTS: Pulmonology RECOMMENDED NEXT STEPS: Follow-up with PCP, pulmonology DISCHARGE MEDICATIONS: Medication List START taking these medications doxycycline 100 MG capsule Commonly known as: Vibramycin Take 1 capsule (100 mg) by mouth 2 times daily for 5 days. Take with at least 8 ounces (large glass) of water, do not lie down for 30 minutes after guaiFENesin 100 MG/5ML liquid Commonly known as: Robitussin Take 10 mL (200 mg) by mouth every 4 hours as needed for cough for up to 10 days. hydrOXYzine pamoate 25 MG capsule Commonly known as: Vistaril Take 1 capsule (25 mg) by mouth every 6 hours as needed for anxiety for up to 3 days. mometasone-formoterol 200-5 MCG/ACT inhaler Commonly known as: Dulera 200 Inhale 2 puffs 2 times daily. Rinse mouth with water after use to reduce aftertaste and incidence of candidiasis. Do not swallow. predniSONE 20 MG tablet Commonly known as: Deltasone Take 3 tabs (60mg) daily for 3 days, then take 2 tabs (40mg) daily for 3 days, then take 1 tab (20mg) daily for 3 days. CONTINUE taking these medications * albuterol (2.5 MG/3ML) 0.083% nebulizer solution Take 3 mL (2.5 mg) by nebulization every 6 hours as needed for wheezing. * albuterol 108 (90 Base) MCG/ACT inhaler Inhale 2 puffs every 4 hours as needed for wheezing. * This list has 2 medication(s) that are the same as other medications prescribed for you. Read the directions carefully, and ask your doctor or other care provider to review them with you. Where to Get Your Medications These medications were sent to [facility]/pharmacy #[id number] [address] albuterol 108 (90 Base) MCG/ACT inhaler doxycycline 100 MG capsule guaiFENesin 100 MG/5ML liquid hydrOXYzine pamoate 25 MG capsule mometasone-formoterol 200-5 MCG/ACT inhaler predniSONE 20 MG tablet DIET: Adult diet Regular ACTIVITY: COMPLEXITY OF FOLLOW UP: [] Moderate Complexity: follow up within 7-14 calendar days (99425) [] Severe Complexity: follow up within 7 calendar days (53973) FOLLOW UP TESTING, PENDING RESULTS OR REFERRALS AT TRANSITIONAL CARE VISIT: [] Yes [] No PENDING STUDIES: DISPOSITION: AMA FACILITY/HOME CARE AGENCY NAME: Follow up with No follow-up provider specified. INSTRUCTIONS TO MA/SW: Please call patient on day after discharge (must document patient contacted within 2 business days of discharge). FOLLOW UP QUESTIONS FOR MA/SW: 1. Did you get medications filled and taking them as instructed from discharge? 2. Are you following your discharge instructions from your hospital stay? 3. Please confirm patient is scheduled for a follow up appointment within the above time frame. DISCHARGE TIME: SIGNED: Perez Allison MD 04/15/2025, 4:37 PM [facility] 04-15-2025 Nurse Note Patient stated she wants to be discharged. Patient stated " we are not doing anything for her" patient educated on iv solumedrol, antibiotics, and breathing treatments. and Dr. Quinton gomez was notified via secure chat. Patient not to be discharged. Patient electing to leave AMA. AMA form signed. Patient educated on why she should stay. Prescriptions sent to [facility] and patient notified of follow up with Tal Davila CNP in two days. Wrote out their office info and supplied to patient. Iv removed at this time, no complications noted. 1550- patient leaving ama at this time [facility] 04-15-2025 Nurse Note Patient stated she wants to be discharged. Patient stated " we are not doing anything for her" patient educated on iv solumedrol, antibiotics, and breathing treatments. and Dr. Quinton gomez was notified via secure chat. Patient not to be discharged. Patient electing to leave AMA. AMA form signed. Patient educated on why she should stay. Prescriptions sent to [facility] in [place] and patient notified of follow up with Tal Davila CNP in two days. Wrote out their office info and supplied to patient. Iv removed at this time, no complications noted. 1550- patient leaving ama at this time Patient took telemetry and pulse oximeter off and stated My head is pounding and I ripped everything off." MD notified. Fluids paused to promote rest in patient. Patient refusing to keep arm straight, causing fluids to alarm every 1-2 minutes. Patient educated on keeping arm straight 5x. MD notified. Patient calls RN to room and states "my head is pounding." RN gives patient 650mg of tylenol. Patient begins to get emotional and desats to 80% on RA. Patient does not want to wear oxygen, patient educated numerous times on the importance of O2. Patient then stated "I want to go home, nothing is working." Patient educated on the importance of her staying. Patient did not respond and laid back down in the bed. MD notified. Patient now resting comfortably in bed and is 97% on RA. Morning labs deferred to 04/16 because labs just drawn at [place] ED at 1999 on 04/14. MD agreeable. documented in this encounter [facility] 04-15-2025 Note Formatting of this n ote might be different from the original. Care Management Progress Note Pt adm for tx/evaluation of severe persistent asthma with exacerbation. Receiving IV vibramycin and solumedrol. Remains on maintenance fluids. Pulm following. Pt on RA this am. Respiratory panel negative yesterday- new order for respiratory pathogens panel by PCR- awaiting swab. Pt from home indep at baseline. No needs antic at discharge. Pt has PCP and insurance- noted to have multiple admissions- referral to ambulatory transition care team to follow up outpt. Length of Stay (Days): 0 GMLOS: No GMLOS Documented [facility] 04-15-2025 Note Formatting of this n ote might be different from the original. Care Management Progress Note Pt adm for tx/evaluation of severe persistent asthma with exacerbation. Receiving IV vibramycin and solumedrol. Remains on maintenance fluids. Pulm following. Pt on RA this am. Respiratory panel negative yesterday- new order for respiratory pathogens panel by PCR- awaiting swab. Pt from home indep at baseline. No needs antic at discharge. Pt has PCP and insurance- noted to have multiple admissions- referral to ambulatory transition care team to follow up outpt. Length of Stay (Days): 0 GMLOS: No GMLOS Documented [facility] 04-15-2025 Note Care Management Prog ress Note Pt adm for tx/evaluation of severe persistent asthma with exacerbation. Receiving IV vibramycin and solumedrol. Remains on maintenance fluids. Pulm following. Pt on RA this am. Respiratory panel negative yesterday- new order for respiratory pathogens panel by PCR- awaiting swab. Pt from home indep at baseline. No needs antic at discharge. Pt has PCP and insurance- noted to have multiple admissions- referral to ambulatory transition care team to follow up outpt. Length of Stay (Days): 0 GMLOS: No GMLOS Documented [facility] 04-15-2025 Miscellaneous Notes Formattin g of this note might be different from the original. Care Management Progress Note Pt adm for tx/evaluation of severe persistent asthma with exacerbation. Receiving IV vibramycin and solumedrol. Remains on maintenance fluids. Pulm following. Pt on RA this am. Respiratory panel negative yesterday- new order for respiratory pathogens panel by PCR- awaiting swab. Pt from home indep at baseline. No needs antic at discharge. Pt has PCP and insurance- noted to have multiple admissions- referral to ambulatory transition care team to follow up outpt. Length of Stay (Days): 0 GMLOS: No GMLOS Documented Problem: Pain - Adult Goal: Verbalizes/displays adequate comfort level or baseline comfort level Outcome: Progressing Problem: Safety - Adult Goal: Free from fall injury Outcome: Progressing Problem: Discharge Planning Goal: Discharge to home or other facility with appropriate resources Outcome: Progressing Problem: Chronic Conditions and Co-morbidities Goal: Patient's chronic conditions and co-morbidity symptoms are monitored and maintained or improved Outcome: Progressing Problem: Pain - Adult Goal: Verbalizes/displays adequate comfort level or baseline comfort level Outcome: Progressing Problem: Safety - Adult Goal: Free from fall injury Outcome: Progressing Problem: Discharge Planning Goal: Discharge to home or other facility with appropriate resources Outcome: Progressing Problem: Chronic Conditions and Co-morbidities Goal: Patient's chronic conditions and co-morbidity symptoms are monitored and maintained or improved Outcome: Progressing Called by [place] [facility] . Discussed with ED attending. 35 yo with hx of severe asthma and recurrent exacerbation, periph eos, on albuterol monotherapy, current smoker. presented to ed 2 days shortness of breath. Diffuse wheezing. Sp nebs. Now on NIV, with difficulty tolerating . Hx of dvt/pe. Check dimer In setting of severe signs and symptoms and reported respiratory distress , ok for ICU admission. Prior hx of high risk asthma requiring intubation. Check test, abg. Pneumonia / viral pcr. Contue sebs. / steroids , continue bipap. Admit to t3 documented in this encounter [facility] 04-15-2025 Plan of care note Problem: Pain - Adult Goal: Verbalizes/displays adequate comfort level or baseline comfort level Outcome: Progressing Problem: Safety - Adult Goal: Free from fall injury Outcome: Progressing Problem: Discharge Planning Goal: Discharge to home or other facility with appropriate resources Outcome: Progressing Problem: Chronic Conditions and Co-morbidities Goal: Patient's chronic conditions and co-morbidity symptoms are monitored and maintained or improved Outcome: Progressing [facility] 04-15-2025 History of Presen t illness Narrative Carine is a 35-year-old female with history of anxiety, asthma, multiple fractures before, history of blood clots presented to emergency room with shortness of breath. She initially presented [place] ED, found to be asthma exacerbation, stabilized on 2 L of nasal cannula, patient has history of smoking, has not used smoking for several days. Patient transferred to [facility]. Admitted for further evaluation and treatment. Respiratory pathogen panel negative including COVID Chest x-ray shows no radiographic acute cardiopulmonary process. Consulted pulmonology, seen the patient, recommends, started on Dulera, nebulization, IV Solu-Medrol, can likely DC antibiotics as respiratory panel negative, no signs or symptoms of concomitant CAP appreciated. Patient is seen and examined She is sitting in her bed, complaining of headache, states Tylenol and Toradol not working, ordered one-time dose of oxycodone, patient also complaining of some anxiety, denies using any medication for anxiety before, Vistaril started. Rest as per H&P Total time spent: 15.5 minutes Interim note: 0 644 I was called to see the patient after she was admitted today with acute exacerbation of bronchial asthma. She continues to be extremely anxious the Ativan that was prescribed seems to not helping her anxiety. She also was complaining of a headache. Hemodynamically she stable she continues to have expiratory wheezes however much less than on admission. She has better aeration in both lung garcía bilaterally. Heart rhythm regular and rapid S1/S2 heart sounds are distant. Extremities no edema. 1. Acute exacerbation of bronchial asthma. 2. Stress headache 3. Insomnia Plan: 1. I will prescribe some analgesics for her headache in the meantime we will place on Seroquel 50 mg p.o. every morning to help calm her anxiety and maybe help her get some sleep in the meantime she can continue to use the Ativan as needed. Jose L Foote MD documented in this encounter [facility] 04-15-2025 Consult note Associated Order (s): IP CONSULT TO PULMONOLOGY Images from the original note were not included. [facility] [place] [place] [facility] [place] [address] [id number] 1990 Date of Admission - 04/14/2025 5:51 PM Date of Evaluation - 04/15/2025 Room - N4-462/N4-462 A Hospital Day - 0 Consulting - Perez Allison MD PCP - AISHWARYA IVORY MD Reason for Consult Asthma exacerbation History of Present Illness Carine Barba is a 35 y.o. female admitted for asthma exacerbation. Pt. Reports history of asthma since she was a child. She uses PRN nebs and albuterol at home as needed, is not on a daily asthma controller inhaler. She reports fatigue, malaise, chest tightness, wheezes, headache and rhinorrhea for the last 2-3 days. She endorses increase in chest tightness and wheezes that has not responded to PRN nebs or albuterol. She denies cough, chest pain. This is her 6th either admission or ER visit in the last year. She reports she does not have a lung doctor, and has not tried regular controller inhalers in the past. Denies family history of lung disease. She is unemployed, does smoke daily prior to the last few days. Patient has a past medical history of: - asthma, severe - tobacco use Active Hospital Problem List Problem List[1] Medical History Past Medical History Medical History[2] Past Surgical History Surgical History[3] Social History Social History Socioeconomic History Marital status: Single Spouse name: Not on file Number of children: Not on file Years of education: Not on file Highest education level: Not on file Occupational History Not on file Tobacco Use Smoking status: Every Day Current packs/day: 0.25 Types: Cigarettes Smokeless tobacco: Current Vaping Use Vaping status: Never Used Substance and Sexual Activity Alcohol use: Yes Drug use: Yes Types: Marijuana Sexual activity: Not on file Other Topics Concern Not on file Social History Narrative Not on file Social Drivers of Health Financial Resource Strain: Not on file Food Insecurity: No Food Insecurity (04/15/2025) Hunger Vital Sign Worried About Running Out of Food in the Last Year: Never true Ran Out of Food in the Last Year: Never true Transportation Needs: No Transportation Needs (04/15/2025) PRAPARE - Transportation Lack of Transportation (Medical): No Lack of Transportation (Non-Medical): No Physical Activity: Not on file Stress: Not on file Social Connections: Not on file Intimate Partner Violence: Not At Risk (04/15/2025) Humiliation, Afraid, Rape, and Kick questionnaire Fear of Current or Ex-Partner: No Emotionally Abused: No Physically Abused: No Sexually Abused: No Housing Stability: Low Risk (04/15/2025) Housing Stability Vital Sign Unable to Pay for Housing in the Last Year: No Number of Times Moved in the Last Year: 0 Homeless in the Last Year: No Family History Family History[4] Immunization History There is no immunization history on file for this patient. Medications Current Medications Scheduled Meds[5] PRN Mediations PRN Meds[6] IV Drips/Infusions Continuous Meds[7] Home Medications Current Outpatient Medications Medication Instructions albuterol 108 (90 Base) MCG/ACT inhaler 2 puffs, Inhalation, Every 4 hours PRN albuterol 2.5 mg, Nebulization, Every 6 hours PRN Allergies Allergies[8] Review of Systems General Denies any fever or chills, endorses fatigue and malaise HEENT reports headache and rhinorrhea. Resp See HPI Cardiac Denies any chest pain, palpitations, claudication or edema GI Denies any melena, hematochezia, hematemesis or pyrosis Denies any frequency, urgency, hesitancy or incontinence Heme Denies bruising or bleeding easily Neuro Denies any focal motor or sensory deficits Psychiatric reports anxiety anxiety, denies depression, suicidal ideation Skin Denies rashes, itching, open sores Vitals height is 5' 6" (1.676 m) and weight is 170 lb (77.1 kg). Her temporal temperature is 36.8 C (98.3 F). Her blood pressure is 127/73 and her pulse is 99. Her respiration is 16 and oxygen saturation is 95%. Body mass index is 27.44 kg/m . 24 Hour intake and output No intake or output data in the 24 hours ending 04/15/25 0724 Wt Readings from Last 3 Encounters: 04/15/25 170 lb (77.1 kg) 01/08/25 170 lb (77.1 kg) Physical Exam General appearance: Awake, alert, no acute appears uncomfortable. On RA. HEENT: Normocephalic, atraumatic. Neck: ROM normal, trachea midline. No lymphadenopathy Cardiovascular: Regular rate and rhythm. Heart sounds normal. Negative for murmur, friction rub, or gallop. Pulmonary: effort normal, poor airflow with diffuse wheezes. Abdomen: Soft, non distended, non tender, bowel sounds present Musculoskeletal: ROM normal, Negative for swelling, tenderness or deformity. Skin: Warm, dry. Skin color, texture, turgor normal. Negative for rashes or lesions. Extremities: No clubbing, cyanosis, or extremity edema Neurological: No focal deficits. Alert and oriented x 4. Lymphatics: No cervical lymphadenopathy Psychiatric: Mood, behavior, thought content normal. Cooperative with exam. Labs CBC Results from last 7 days Lab Units 04/15/25 0115 04/14/25 2043 WBC AUTO 10*3/uL -- 13.0* HEMOGLOBIN g/dL -- 14.2 HEMOGLOBIN BG g/dl 14.7 -- HEMATOCRIT % -- 41.0 PLATELETS 10*3/uL -- 230 BMP: Results from last 7 days Lab Units 04/14/25 2043 SODIUM mmol/L 140 POTASSIUM mmol/L 3.9 CHLORIDE mmol/L 104 CO2 mmol/L 24 BUN mg/dL 9 CREATININE mg/dL 0.67 GLUCOSE mg/dL 119* CALCIUM mg/dL 9.0 ABG: Results from last 7 days Lab Units 04/15/25 0115 SOURCE OF OXYGEN None (Room Air) LIVER PROFILE No lab exists for component: LABALBU INR PTT No results found for: "PTT" Cultures Covid/flu/rsv negative Pulmonary function tests (PFT's) PFT (n/a) Sleep History N/a Radiology All relevant/recent imaging was personally reviewed by me. Please see official radiology report for details. Cxr personally reviewed and interpreted, compared to previous, demostrates no acute infiltrate, edema or other acute process. There is hardware overlying left clavicle. Assessment Acute asthma exacerbation leukocytosis Recurrent admissions Tobacco use Recommendations Pt. With severe asthma with poor control of symptoms and recurrent exacerbations. Checking nasal pcr, clinically no signs/symptoms of concomitant CAP, can likely DC abx. Starting dulera, on scheduled nebs, continue scheduled iv solumedrol for now given severely diminished airflow and wheezes. Pt. Now starting daily controller therapy, given elevated EOS, and recurrent exacerbations if still symptomatic and or exacerbating in three months would consider biologic therapy. discussed the risks of continued tobacco abuse, including but not limited to worsening respiratory disease, cardiac disease, vascular disease including stroke, and increased risk of malignancy Pulmonary service will continue to follow. Pt. Would benefit from close hospital follow up with pulmonary providers. Thank you for allowing me to participate in the care of this patient, please feel free to reach out with any questions. [1] Patient Active Problem List Diagnosis Asthma in adult, moderate persistent, uncomplicated Severe persistent asthma with exacerbation [2] Past Medical History: Diagnosis Date Anxiety Asthma History of blood clots Multiple fractures bilateral, clavicle, hand, L4-L5 verterbral bodiess [3] Past Surgical History: Procedure Laterality Date ANTERIOR CRUCIATE LIGAMENT REPAIR BREAST SURGERY SECTION (HISTORICAL) [4] No family history on file. [5] doxycycline, 100 mg, IntraVENous, q12h enoxaparin, 40 mg, SubCUTAneous, q24h ipratropium, 0.5 mg, Nebulization, q6h methylPREDNISolone sod suc (PF), 40 mg, IntraVENous, q8h QUEtiapine, 50 mg, Oral, Once [6] PRN medications: acetaminophen OR acetaminophen, guaiFENesin, ketorolac, levalbuterol, LORazepam, ondansetron ODT OR ondansetron, polyethylene glycol (PEG) 3350 [7] sodium chloride, 50 mL/hr, Last Rate: Stopped (04/15/25 0503) [8] Allergies Allergen Reactions Cefadroxil Swelling Other Reaction(s): GI Upset Splotchy face Cosigned by Giancarlo Yi MD at 04/15/2025 1:50 PM EDT Associated attestation - Giancarlo Yi MD - 04/15/2025 1:50 PM EDT I saw and evaluated the patient, participating in the [place] portions of the service. I reviewed the resident s note. I agree with the resident s findings and plan. Consult placed for asthma exacerbation Patient with history of poorly controlled asthma, recurrent multiple ed visits Not on any maintenance inhalers at home. Previous eosinophilia up to 1000 noted. Acute asthma exacerbation Poorly controlled asthma due to lack of maintenance inhalers Nicotine abuse --needs maintenance ics laba, pred taper, op pft, nebs. If continues to be symptomatic despite 3 months of ics laba may be candidate for biologic however poor compliance limits options and increases risk for readmits. OP follow up established, however patient signed out AMA Giancarlo Yi MD [facility] [place] Work Phone: 04-15-2025 Consult note Associated Order (s): IP CONSULT TO PULMONOLOGY Images from the original note were not included. [facility] [place] [address] [place] [address] Patient - Carine Barba - 1990 Date of Admission - 04/14/2025 5:51 PM Date of Evaluation - 04/15/2025 Room - N4-462/N4-462 A Hospital Day - 0 Consulting - Perez Allison MD PCP - AISHWARYA IVORY MD Reason for Consult Asthma exacerbation History of Present Illness Carine Barba is a 35 y.o. female admitted for asthma exacerbation. Pt. Reports history of asthma since she was a child. She uses PRN nebs and albuterol at home as needed, is not on a daily asthma controller inhaler. She reports fatigue, malaise, chest tightness, wheezes, headache and rhinorrhea for the last 2-3 days. She endorses increase in chest tightness and wheezes that has not responded to PRN nebs or albuterol. She denies cough, chest pain. This is her 6th either admission or ER visit in the last year. She reports she does not have a lung doctor, and has not tried regular controller inhalers in the past. Denies family history of lung disease. She is unemployed, does smoke daily prior to the last few days. Patient has a past medical history of: - asthma, severe - tobacco use Active Hospital Problem List Problem List[1] Medical History Past Medical History Medical History[2] Past Surgical History Surgical History[3] Social History Social History Socioeconomic History Marital status: Single Spouse name: Not on file Number of children: Not on file Years of education: Not on file Highest education level: Not on file Occupational History Not on file Tobacco Use Smoking status: Every Day Current packs/day: 0.25 Types: Cigarettes Smokeless tobacco: Current Vaping Use Vaping status: Never Used Substance and Sexual Activity Alcohol use: Yes Drug use: Yes Types: Marijuana Sexual activity: Not on file Other Topics Concern Not on file Social History Narrative Not on file Social Drivers of Health Financial Resource Strain: Not on file Food Insecurity: No Food Insecurity (04/15/2025) Hunger Vital Sign Worried About Running Out of Food in the Last Year: Never true Ran Out of Food in the Last Year: Never true Transportation Needs: No Transportation Needs (04/15/2025) PRAPARE - Transportation Lack of Transportation (Medical): No Lack of Transportation (Non-Medical): No Physical Activity: Not on file Stress: Not on file Social Connections: Not on file Intimate Partner Violence: Not At Risk (04/15/2025) Humiliation, Afraid, Rape, and Kick questionnaire Fear of Current or Ex-Partner: No Emotionally Abused: No Physically Abused: No Sexually Abused: No Housing Stability: Low Risk (04/15/2025) Housing Stability Vital Sign Unable to Pay for Housing in the Last Year: No Number of Times Moved in the Last Year: 0 Homeless in the Last Year: No Family History Family History[4] Immunization History There is no immunization history on file for this patient. Medications Current Medications Scheduled Meds[5] PRN Mediations PRN Meds[6] IV Drips/Infusions Continuous Meds[7] Home Medications Current Outpatient Medications Medication Instructions albuterol 108 (90 Base) MCG/ACT inhaler 2 puffs, Inhalation, Every 4 hours PRN albuterol 2.5 mg, Nebulization, Every 6 hours PRN Allergies Allergies[8] Review of Systems General Denies any fever or chills, endorses fatigue and malaise HEENT reports headache and rhinorrhea. Resp See HPI Cardiac Denies any chest pain, palpitations, claudication or edema GI Denies any melena, hematochezia, hematemesis or pyrosis Denies any frequency, urgency, hesitancy or incontinence Heme Denies bruising or bleeding easily Neuro Denies any focal motor or sensory deficits Psychiatric reports anxiety anxiety, denies depression, suicidal ideation Skin Denies rashes, itching, open sores Vitals height is 5' 6" (1.676 m) and weight is 170 lb (77.1 kg). Her temporal temperature is 36.8 C (98.3 F). Her blood pressure is 127/73 and her pulse is 99. Her respiration is 16 and oxygen saturation is 95%. Body mass index is 27.44 kg/m . 24 Hour intake and output No intake or output data in the 24 hours ending 04/15/25 0724 Wt Readings from Last 3 Encounters: 04/15/25 170 lb (77.1 kg) 01/08/25 170 lb (77.1 kg) Physical Exam General appearance: Awake, alert, no acute appears uncomfortable. On RA. HEENT: Normocephalic, atraumatic. Neck: ROM normal, trachea midline. No lymphadenopathy Cardiovascular: Regular rate and rhythm. Heart sounds normal. Negative for murmur, friction rub, or gallop. Pulmonary: effort normal, poor airflow with diffuse wheezes. Abdomen: Soft, non distended, non tender, bowel sounds present Musculoskeletal: ROM normal, Negative for swelling, tenderness or deformity. Skin: Warm, dry. Skin color, texture, turgor normal. Negative for rashes or lesions. Extremities: No clubbing, cyanosis, or extremity edema Neurological: No focal deficits. Alert and oriented x 4. Lymphatics: No cervical lymphadenopathy Psychiatric: Mood, behavior, thought content normal. Cooperative with exam. Labs CBC Results from last 7 days Lab Units 04/15/25 0115 04/14/25 2043 WBC AUTO 10*3/uL -- 13.0* HEMOGLOBIN g/dL -- 14.2 HEMOGLOBIN BG g/dl 14.7 -- HEMATOCRIT % -- 41.0 PLATELETS 10*3/uL -- 230 BMP: Results from last 7 days Lab Units 04/14/25 2043 SODIUM mmol/L 140 POTASSIUM mmol/L 3.9 CHLORIDE mmol/L 104 CO2 mmol/L 24 BUN mg/dL 9 CREATININE mg/dL 0.67 GLUCOSE mg/dL 119* CALCIUM mg/dL 9.0 ABG: Results from last 7 days Lab Units 04/15/25 0115 SOURCE OF OXYGEN None (Room Air) LIVER PROFILE No lab exists for component: LABALBU INR PTT No results found for: "PTT" Cultures Covid/flu/rsv negative Pulmonary function tests (PFT's) PFT (n/a) Sleep History N/a Radiology All relevant/recent imaging was personally reviewed by me. Please see official radiology report for details. Cxr personally reviewed and interpreted, compared to previous, demostrates no acute infiltrate, edema or other acute process. There is hardware overlying left clavicle. Assessment Acute asthma exacerbation leukocytosis Recurrent admissions Tobacco use Recommendations Pt. With severe asthma with poor control of symptoms and recurrent exacerbations. Checking nasal pcr, clinically no signs/symptoms of concomitant CAP, can likely DC abx. Starting dulera, on scheduled nebs, continue scheduled iv solumedrol for now given severely diminished airflow and wheezes. Pt. Now starting daily controller therapy, given elevated EOS, and recurrent exacerbations if still symptomatic and or exacerbating in three months would consider biologic therapy. discussed the risks of continued tobacco abuse, including but not limited to worsening respiratory disease, cardiac disease, vascular disease including stroke, and increased risk of malignancy Pulmonary service will continue to follow. Pt. Would benefit from close hospital follow up with pulmonary providers. Thank you for allowing me to participate in the care of this patient, please feel free to reach out with any questions. [1] Patient Active Problem List Diagnosis Asthma in adult, moderate persistent, uncomplicated Severe persistent asthma with exacerbation [2] Past Medical History: Diagnosis Date Anxiety Asthma History of blood clots Multiple fractures bilateral, clavicle, hand, L4-L5 verterbral bodiess [3] Past Surgical History: Procedure Laterality Date ANTERIOR CRUCIATE LIGAMENT REPAIR BREAST SURGERY SECTION (HISTORICAL) [4] No family history on file. [5] doxycycline, 100 mg, IntraVENous, q12h enoxaparin, 40 mg, SubCUTAneous, q24h ipratropium, 0.5 mg, Nebulization, q6h methylPREDNISolone sod suc (PF), 40 mg, IntraVENous, q8h QUEtiapine, 50 mg, Oral, Once [6] PRN medications: acetaminophen OR acetaminophen, guaiFENesin, ketorolac, levalbuterol, LORazepam, ondansetron ODT OR ondansetron, polyethylene glycol (PEG) 3350 [7] sodium chloride, 50 mL/hr, Last Rate: Stopped (04/15/25 0503) [8] Allergies Allergen Reactions Cefadroxil Swelling Other Reaction(s): GI Upset Splotchy face Cosigned by Giancarlo Yi MD at 04/15/2025 1:50 PM EDT Associated attestation - Giancarlo Yi MD - 04/15/2025 1:50 PM EDT I saw and evaluated the patient, participating in the hickman portions of the service. I reviewed the resident s note. I agree with the resident s findings and plan. Consult placed for asthma exacerbation Patient with history of poorly controlled asthma, recurrent multiple ed visits Not on any maintenance inhalers at home. Previous eosinophilia up to 1000 noted. Acute asthma exacerbation Poorly controlled asthma due to lack of maintenance inhalers Nicotine abuse --needs maintenance ics laba, pred taper, op pft, nebs. If continues to be symptomatic despite 3 months of ics laba may be candidate for biologic however poor compliance limits options and increases risk for readmits. OP follow up established, however patient signed out AMA Giancarlo Yi MD documented in this encounter [facility] 04-15-2025 Nurse Note Patient took telemetry and pulse oximeter off and stated My head is pounding and I ripped everything off." MD notified. [facility] 04-15-2025 Nurse Note Fluids paused to promote rest in patient. Patient refusing to keep arm straight, causing fluids to alarm every 1-2 minutes. Patient educated on keeping arm straight 5x. MD notified. [facility] 04-15-2025 Nurse Note Patient calls RN to room and states "my head is pounding." RN gives patient 650mg of tylenol. Patient begins to get emotional and desats to 80% on RA. Patient does not want to wear oxygen, patient educated numerous times on the importance of O2. Patient then stated "I want to go home, nothing is working." Patient educated on the importance of her staying. Patient did not respond and laid back down in the bed. MD notified. Patient now resting comfortably in bed and is 97% on RA. [facility] 04-15-2025 Nurse Note Morning labs deferred to 04/16 because labs just drawn at [place] ED at 1999 on 04/14. MD agreeable. [facility] 04-15-2025 History and physical note Attending History and Physical Admit Date: 04/14/2025 PCP: AISHWARYA IVORY MD CHIEF COMPLAINT: Shortness of breath Reason for Admission: Acute exacerbation of bronchial asthma. History Obtained From: patient HISTORY OF PRESENT ILLNESS: Carine is a 35 y.o. female with past medical history below who presents with chief complaint listed above. This is a 35-year-old lady who has a history of bronchial asthma continues to smoke, however has not used cigarettes over the past few days because of her shortness of breath. She denies any fevers or chills nausea or vomiting. She was seen at [place] ED, was found to have an exacerbation of bronchial asthma was hypoxic initially was then stabilized on 2 L of oxygen by nasal cannula. She continued to be mildly short of breath however, and as transferred to [facility] for further evaluation.. Past medical history significant for bronchial asthma, Will admit for further evaluation and management. Past Medical History: Medical History[1] Past Surgical History: Surgical History[2] Social History: Social History Socioeconomic History Marital status: Single Spouse name: Not on file Number of children: Not on file Years of education: Not on file Highest education level: Not on file Occupational History Not on file Tobacco Use Smoking status: Every Day Current packs/day: 0.25 Types: Cigarettes Smokeless tobacco: Current Vaping Use Vaping status: Never Used Substance and Sexual Activity Alcohol use: Yes Drug use: Yes Types: Marijuana Sexual activity: Not on file Other Topics Concern Not on file Social History Narrative Not on file Social Drivers of Health Financial Resource Strain: Not on file Food Insecurity: No Food Insecurity (04/15/2025) Hunger Vital Sign Worried About Running Out of Food in the Last Year: Never true Ran Out of Food in the Last Year: Never true Transportation Needs: No Transportation Needs (04/15/2025) PRAPARE - Transportation Lack of Transportation (Medical): No Lack of Transportation (Non-Medical): No Physical Activity: Not on file Stress: Not on file Social Connections: Not on file Intimate Partner Violence: Not At Risk (04/15/2025) Humiliation, Afraid, Rape, and Kick questionnaire Fear of Current or Ex-Partner: No Emotionally Abused: No Physically Abused: No Sexually Abused: No Housing Stability: Low Risk (04/15/2025) Housing Stability Vital Sign Unable to Pay for Housing in the Last Year: No Number of Times Moved in the Last Year: 0 Homeless in the Last Year: No Family History: Family History[3] Medications Prior to Admission: Current Medications[4] Medications Reconciliation: Medication were reviewed and verified as accurate with patient. Allergies: Allergies[5] REVIEW OF SYSTEMS: 10 point ROS obtained, as per HPI, otherwise NEG Vitals: BP 127/73 (BP Location: Left arm, Patient Position: Lying) Pulse 99 Temp 36.8 C (98.3 F) (Temporal) Resp 22 Ht 5' 6" (1.676 m) Wt 170 lb (77.1 kg) SpO2 95% BMI 27.44 kg/m BMI Classification: Normal Weight (BMI 18.5-24.9) Pulse Ox: SpO2 Av.7 % Min: 92 % Max: 100 % Supplemental O2: O2 Flow Rate (L/min): 3 L/min PHYSICAL EXAM: Physical Exam General appearance is that of a middle-aged lady in acute distress alert at the time of examination The head was normal there was mild bilateral maxillary sinus congestion without any active rhinorrhea. The neck was supple there was no JVD or HJR The patient did have pain upon deep inspiration there were diffuse bilateral expiratory wheezes heard throughout both lung garcía more on the right than on the left. In the chest pain which is sharp in nature was worsened upon deep inspiration. Heart rhythm regular and rapid S1/S2 heart sounds are distant there were no extrasystoles premature systoles clicks or rubs. The abdomen soft and nontender with normal bowel sounds in all quadrants there is no subxiphoid, right midepigastric, or right upper quadrant tenderness to palpation lower abdominal examination was otherwise unremarkable. Range of motion of both upper lower extremities appeared to be symmetrical there are no lateralizing signs skin is otherwise warm and dry to touch. Peripheral pulses intact in both lower extremities. Laboratory: Venous blood gases pH 7.41 pCO2 39.8 pO2 42.0 HCO3 24.8 with 76.8% saturation. Sodium 140 potassium 3.9 chloride 104 carbon dioxide 24 BUN 9 creatinine 0.67 glucose 119 calcium 9.0 Troponin less than 3, less than 3 respectively. WBC 13.0 hemoglobin 14.2 hematocrit 41.0 Red cell indices were normal platelets 230 white cell differential reveals 84.0% neutrophils 8.5% lymphocytes 4.3% monocytes. hCG less than 2.5. Chest x-ray: No acute cardiopulmonary process. EKG: Sinus tachycardia rate 100/minute right atrial enlargement nonspecific ST/T wave changes. DATA: CBC: Recent Labs 04/14/253 WBC 13.0* RBC 4.28 HGB 14.2 HCT 41.0 MCV 95.8 RDW 12.7 PLT 230 BMP: Recent Labs 04/14/252042 NA 140 K 3.9 CL 104 CO2 24 BUN 9 CREATININE 0.67 GLUCOSE 119* CALCIUM 9.0 ANIONGAP 12 LIVER PROFILE:No results for input(s): "AST", "ALT", "BILITOT", "ALKPHOS", "PROT" in the last 72 hours. No lab exists for component: LABALBU PT/INR: No results for input(s): "PROTIME", "INR" in the last 72 hours. CARDIAC ENZYMES: No results for input(s): "TROPONINI" in the last 72 hours. Procalcitonin: No results found for: "PROCAL" Urine Culture: No results found for this or any previous visit. COVID-19 PCR: No results for input(s): "COVID19" in the last 72 hours. I reviewed: [x] laboratory results [x] radiographic results At the time of today's encounter. Pt was advised of the results. Data: (CAT1) Reviewed 3 or more notes from different specialty or health system (each=1). (LOW: 2x CAT1 or independent historian MOD: 3x CAT1 or 1x CAT3 EXTENSIVE: 3x CAT1 and 1x CAT3) Assessment Discussed management with the ED provider and agree with hospitalization. Acute, acute on chronic, unstable/uncontrolled chronic problems/diagnoses: Acute hypoxic respiratory failure secondary to exacerbation of bronchial asthma. Aerosol treatments with Xopenex will be prescribed every 4 hours as needed, IV Solu-Medrol pulmonary consultation. Noncardiac chest pain seems to be pleuritic in nature will prescribe nonsteroidal anti-inflammatory drugs as needed. Stable chronic problems affecting care, new non-acute diagnoses: Tobacco use she was advised to quit smoking which may exacerbate her asthma symptoms. Mild generalized anxiety disorder will place on the low-dose of Ativan as needed Plan As a result of the above findings & factors, the following mgmt was pursued: - As above noted - am labs, replace lytes prn - PT/OT/CM/SW - delirium precautions: increase activity - DVT prophylaxis: enoxaparin and encourage ambulation Complexity: Acute illness or injury posing a threat to life or body function (HIGH). Risk: Use/consideration of a high risk treatment or study: IV controlled substances (HIGH). Advance Directive: No Order Anticipated Discharge - Date -04/19/2025 - Location - Home - Pending the following -results of treatment Total time spent (which include face to face and non face to face encounters) : 60 minutes. Extended Emergency Contact Information Primary Emergency Contact: Arash Scanlon Mobile Relation: Other [employer] Carine Barba : 1990 Primary Care Physician: AISHWARYA IVORY MD The patient and/or family/surrogate voluntarily agreed to participate in ACP services. Patient s cognitive capacity: Alert and oriented x 4 Code Status: [_X] [FULL CODE - Continue all advanced life support: CPR,intubation,invasive procedures] [_] [DNR-CCA - DO NOT do CPR, intubation] [_] [DNR-SUPERVISOR VENDOR QUALITY - Comfort care only] [_] DNR form [was/was not] signed Summary of discussion: The patient health care POA/ surrogate is the following: Ghislaine Antoine [Condition that instigated the ACP on this DOS, relevant PMH, functional status, goals of care, and whom this was discussed with including names and relationship to the patient, and any relevant advance care documentation discussion] I answered all the patient/family questions that I could within the range and scope of the current medical situation. We discussed the medical conditions, risks, benefits, outcomes, and goals of care at this time for the patient's medical issues at hand in the face of the patient's chronic issues and current presentation. Total time spent: 10 minutes were spent discussing the patient's resuscitation status, advance care planning, and end of life care, with patient and/or family/surrogate. Prabhjot Foote MD Division of Hospitalist Medicine [facility] [1] Past Medical History: Diagnosis Date Anxiety Asthma History of blood clots Multiple fractures bilateral, clavicle, hand, L4-L5 verterbral bodiess [2] Past Surgical History: Procedure Laterality Date ANTERIOR CRUCIATE LIGAMENT REPAIR BREAST SURGERY SECTION (HISTORICAL) [3] No family history on file. [4] Current Facility-Administered Medications: ipratropium-albuterol (Duo-Neb) 0.5-2.5 mg/3 mL nebulizer solution 3 mL, 3 mL, Nebulization, Once, Prabhjot Foote MD [5] Allergies Allergen Reactions Cefadroxil Swelling Other Reaction(s): GI Upset Splotchy face [facility] 04-15-2025 Note Attending History an d Physical Admit Date: 04/14/2025 PCP: AISHWARYA IVORY MD CHIEF COMPLAINT: Shortness of breath Reason for Admission: Acute exacerbation of bronchial asthma. History Obtained From: patient HISTORY OF PRESENT ILLNESS: Carine is a 35 y.o. female with past medical history below who presents with chief complaint listed above. This is a 35-year-old lady who has a history of bronchial asthma continues to smoke, however has not used cigarettes over the past few days because of her shortness of breath. She denies any fevers or chills nausea or vomiting. She was seen at [place] ED, was found to have an exacerbation of bronchial asthma was hypoxic initially was then stabilized on 2 L of oxygen by nasal cannula. She continued to be mildly short of breath however, and as transferred to [facility] for further evaluation.. Past medical history significant for bronchial asthma, Will admit for further evaluation and management. Past Medical History: Medical History[1] Past Surgical History: Surgical History[2] Social History: Social History Socioeconomic History Marital status: Single Spouse name: Not on file Number of children: Not on file Years of education: Not on file Highest education level: Not on file Occupational History Not on file Tobacco Use Smoking status: Every Day Current packs/day: 0.25 Types: Cigarettes Smokeless tobacco: Current Vaping Use Vaping status: Never Used Substance and Sexual Activity Alcohol use: Yes Drug use: Yes Types: Marijuana Sexual activity: Not on file Other Topics Concern Not on file Social History Narrative Not on file Social Drivers of Health Financial Resource Strain: Not on file Food Insecurity: No Food Insecurity (04/15/2025) Hunger Vital Sign Worried About Running Out of Food in the Last Year: Never true Ran Out of Food in the Last Year: Never true Transportation Needs: No Transportation Needs (04/15/2025) PRAPARE - Transportation Lack of Transportation (Medical): No Lack of Transportation (Non-Medical): No Physical Activity: Not on file Stress: Not on file Social Connections: Not on file Intimate Partner Violence: Not At Risk (04/15/2025) Humiliation, Afraid, Rape, and Kick questionnaire Fear of Current or Ex-Partner: No Emotionally Abused: No Physically Abused: No Sexually Abused: No Housing Stability: Low Risk (04/15/2025) Housing Stability Vital Sign Unable to Pay for Housing in the Last Year: No Number of Times Moved in the Last Year: 0 Homeless in the Last Year: No Family History: Family History[3] Medications Prior to Admission: Current Medications[4] Medications Reconciliation: Medication were reviewed and verified as accurate with patient. Allergies: Allergies[5] REVIEW OF SYSTEMS: 10 point ROS obtained, as per HPI, otherwise NEG Vitals: BP 127/73 (BP Location: Left arm, Patient Position: Lying) Pulse 99 Temp 36.8 ?C (98.3 ?F) (Temporal) Resp 22 Ht 5' 6" (1.676 m) Wt 170 lb (77.1 kg) SpO2 95% BMI 27.44 kg/m? BMI Classification: Normal Weight (BMI 18.5-24.9) Pulse Ox: SpO2 Av.7 % Min: 92 % Max: 100 % Supplemental O2: O2 Flow Rate (L/min): 3 L/min PHYSICAL EXAM: Physical Exam General appearance is that of a middle-aged lady in acute distress alert at the time of examination The head was normal there was mild bilateral maxillary sinus congestion without any active rhinorrhea. The neck was supple there was no JVD or HJR The patient did have pain upon deep inspiration there were diffuse bilateral expiratory wheezes heard throughout both lung garcía more on the right than on the left. In the chest pain which is sharp in nature was worsened upon deep inspiration. Heart rhythm regular and rapid S1/S2 heart sounds are distant there were no extrasystoles premature systoles clicks or rubs. The abdomen soft and nontender with normal bowel sounds in all quadrants there is no subxiphoid, right midepigastric, or right upper quadrant tenderness to palpation lower abdominal examination was otherwise unremarkable. Range of motion of both upper lower extremities appeared to be symmetrical there are no lateralizing signs skin is otherwise warm and dry to touch. Peripheral pulses intact in both lower extremities. Laboratory: Venous blood gases pH 7.41 pCO2 39.8 pO2 42.0 HCO3 24.8 with 76.8% saturation. Sodium 140 potassium 3.9 chloride 104 carbon dioxide 24 BUN 9 creatinine 0.67 glucose 119 calcium 9.0 Troponin less than 3, less than 3 respectively. WBC 13.0 hemoglobin 14.2 hematocrit 41.0 Red cell indices were normal platelets 230 white cell differential reveals 84.0% neutrophils 8.5% lymphocytes 4.3% monocytes. hCG less than 2.5. Chest x-ray: No acute cardiopulmonary process. EKG: Sinus tachycardia rate 100/minute right atrial enlargement nonspecific ST/T wave changes. DATA: CBC: Recent Labs 04/14/252042 WBC 13.0* RBC 4.28 (more content not included)... [facility] 04-15-2025 History and physical note Attending History and Physical Admit Date: 04/14/2025 PCP: AISHWARYA IVORY MD CHIEF COMPLAINT: Shortness of breath Reason for Admission: Acute exacerbation of bronchial asthma. History Obtained From: patient HISTORY OF PRESENT ILLNESS: Carine is a 35 y.o. female with past medical history below who presents with chief complaint listed above. This is a 35-year-old lady who has a history of bronchial asthma continues to smoke, however has not used cigarettes over the past few days because of her shortness of breath. She denies any fevers or chills nausea or vomiting. She was seen at [place] ED, was found to have an exacerbation of bronchial asthma was hypoxic initially was then stabilized on 2 L of oxygen by nasal cannula. She continued to be mildly short of breath however, and as transferred to [facility] for further evaluation.. Past medical history significant for bronchial asthma, Will admit for further evaluation and management. Past Medical History: Medical History[1] Past Surgical History: Surgical History[2] Social History: Social History Socioeconomic History Marital status: Single Spouse name: Not on file Number of children: Not on file Years of education: Not on file Highest education level: Not on file Occupational History Not on file Tobacco Use Smoking status: Every Day Current packs/day: 0.25 Types: Cigarettes Smokeless tobacco: Current Vaping Use Vaping status: Never Used Substance and Sexual Activity Alcohol use: Yes Drug use: Yes Types: Marijuana Sexual activity: Not on file Other Topics Concern Not on file Social History Narrative Not on file Social Drivers of Health Financial Resource Strain: Not on file Food Insecurity: No Food Insecurity (04/15/2025) Hunger Vital Sign Worried About Running Out of Food in the Last Year: Never true Ran Out of Food in the Last Year: Never true Transportation Needs: No Transportation Needs (04/15/2025) PRAPARE - Transportation Lack of Transportation (Medical): No Lack of Transportation (Non-Medical): No Physical Activity: Not on file Stress: Not on file Social Connections: Not on file Intimate Partner Violence: Not At Risk (04/15/2025) Humiliation, Afraid, Rape, and Kick questionnaire Fear of Current or Ex-Partner: No Emotionally Abused: No Physically Abused: No Sexually Abused: No Housing Stability: Low Risk (04/15/2025) Housing Stability Vital Sign Unable to Pay for Housing in the Last Year: No Number of Times Moved in the Last Year: 0 Homeless in the Last Year: No Family History: Family History[3] Medications Prior to Admission: Current Medications[4] Medications Reconciliation: Medication were reviewed and verified as accurate with patient. Allergies: Allergies[5] REVIEW OF SYSTEMS: 10 point ROS obtained, as per HPI, otherwise NEG Vitals: BP 127/73 (BP Location: Left arm, Patient Position: Lying) Pulse 99 Temp 36.8 C (98.3 F) (Temporal) Resp 22 Ht 5' 6" (1.676 m) Wt 170 lb (77.1 kg) SpO2 95% BMI 27.44 kg/m BMI Classification: Normal Weight (BMI 18.5-24.9) Pulse Ox: SpO2 Av.7 % Min: 92 % Max: 100 % Supplemental O2: O2 Flow Rate (L/min): 3 L/min PHYSICAL EXAM: Physical Exam General appearance is that of a middle-aged lady in acute distress alert at the time of examination The head was normal there was mild bilateral maxillary sinus congestion without any active rhinorrhea. The neck was supple there was no JVD or HJR The patient did have pain upon deep inspiration there were diffuse bilateral expiratory wheezes heard throughout both lung garcía more on the right than on the left. In the chest pain which is sharp in nature was worsened upon deep inspiration. Heart rhythm regular and rapid S1/S2 heart sounds are distant there were no extrasystoles premature systoles clicks or rubs. The abdomen soft and nontender with normal bowel sounds in all quadrants there is no subxiphoid, right midepigastric, or right upper quadrant tenderness to palpation lower abdominal examination was otherwise unremarkable. Range of motion of both upper lower extremities appeared to be symmetrical there are no lateralizing signs skin is otherwise warm and dry to touch. Peripheral pulses intact in both lower extremities. Laboratory: Venous blood gases pH 7.41 pCO2 39.8 pO2 42.0 HCO3 24.8 with 76.8% saturation. Sodium 140 potassium 3.9 chloride 104 carbon dioxide 24 BUN 9 creatinine 0.67 glucose 119 calcium 9.0 Troponin less than 3, less than 3 respectively. WBC 13.0 hemoglobin 14.2 hematocrit 41.0 Red cell indices were normal platelets 230 white cell differential reveals 84.0% neutrophils 8.5% lymphocytes 4.3% monocytes. hCG less than 2.5. Chest x-ray: No acute cardiopulmonary process. EKG: Sinus tachycardia rate 100/minute right atrial enlargement nonspecific ST/T wave changes. DATA: CBC: Recent Labs 04/14/252042 WBC 13.0* RBC 4.28 HGB 14.2 HCT 41.0 MCV 95.8 RDW 12.7 PLT 230 BMP: Recent Labs 04/14/252042 NA 140 K 3.9 CL 104 CO2 24 BUN 9 CREATININE 0.67 GLUCOSE 119* CALCIUM 9.0 ANIONGAP 12 LIVER PROFILE:No results for input(s): "AST", "ALT", "BILITOT", "ALKPHOS", "PROT" in the last 72 hours. No lab exists for component: LABALBU PT/INR: No results for input(s): "PROTIME", "INR" in the last 72 hours. CARDIAC ENZYMES: No results for input(s): "TROPONINI" in the last 72 hours. Procalcitonin: No results found for: "PROCAL" Urine Culture: No results found for this or any previous visit. COVID-19 PCR: No results for input(s): "COVID19" in the last 72 hours. I reviewed: [x] laboratory results [x] radiographic results At the time of today's encounter. Pt was advised of the results. Data: (CAT1) Reviewed 3 or more notes from different specialty or health system (each=1). (LOW: 2x CAT1 or independent historian MOD: 3x CAT1 or 1x CAT3 EXTENSIVE: 3x CAT1 and 1x CAT3) Assessment Discussed management with the ED provider and agree with hospitalization. Acute, acute on chronic, unstable/uncontrolled chronic problems/diagnoses: Acute hypoxic respiratory failure secondary to exacerbation of bronchial asthma. Aerosol treatments with Xopenex will be prescribed every 4 hours as needed, IV Solu-Medrol pulmonary consultation. Noncardiac chest pain seems to be pleuritic in nature will prescribe nonsteroidal anti-inflammatory drugs as needed. Stable chronic problems affecting care, new non-acute diagnoses: Tobacco use she was advised to quit smoking which may exacerbate her asthma symptoms. Mild generalized anxiety disorder will place on the low-dose of Ativan as needed Plan As a result of the above findings & factors, the following mgmt was pursued: - As above noted - am labs, replace lytes prn - PT/OT/CM/SW - delirium precautions: increase activity - DVT prophylaxis: enoxaparin and encourage ambulation Complexity: Acute illness or injury posing a threat to life or body function (HIGH). Risk: Use/consideration of a high risk treatment or study: IV controlled substances (HIGH). Advance Directive: No Order Anticipated Discharge - Date -04/19/2025 - Location - Home - Pending the following -results of treatment Total time spent (which include face to face and non face to face encounters) : 60 minutes. Extended Emergency Contact Information Primary Emergency Contact: Arash Scanlon Mobile Relation: Other [employer] Carine Patrick Barba : 1990 Primary Care Physician: AISHWARYA IVORY MD The patient and/or family/surrogate voluntarily agreed to participate in ACP services. Patient s cognitive capacity: Alert and oriented x 4 Code Status: [_X] [FULL CODE - Continue all advanced life support: CPR,intubation,invasive procedures] [_] [DNR-CCA - DO NOT do CPR, intubation] [_] [DNR-SUPERVISOR VENDOR QUALITY - Comfort care only] [_] DNR form [was/was not] signed Summary of discussion: The patient health care POA/ surrogate is the following: Ghislaine Antoine [Condition that instigated the ACP on this DOS, relevant PMH, functional status, goals of care, and whom this was discussed with including names and relationship to the patient, and any relevant advance care documentation discussion] I answered all the patient/family questions that I could within the range and scope of the current medical situation. We discussed the medical conditions, risks, benefits, outcomes, and goals of care at this time for the patient's medical issues at hand in the face of the patient's chronic issues and current presentation. Total time spent: 10 minutes were spent discussing the patient's resuscitation status, advance care planning, and end of life care, with patient and/or family/surrogate. Prabhjot Foote MD Division of Hospitalist Medicine [facility] [1] Past Medical History: Diagnosis Date Anxiety Asthma History of blood clots Multiple fractures bilateral, clavicle, hand, L4-L5 verterbral bodiess [2] Past Surgical History: Procedure Laterality Date ANTERIOR CRUCIATE LIGAMENT REPAIR BREAST SURGERY SECTION (HISTORICAL) [3] No family history on file. [4] Current Facility-Administered Medications: ipratropium-albuterol (Duo-Neb) 0.5-2.5 mg/3 mL nebulizer solution 3 mL, 3 mL, Nebulization, Once, Prabhjot Foote MD [5] Allergies Allergen Reactions Cefadroxil Swelling Other Reaction(s): GI Upset Splotchy face documented in this encounter [facility] 04-15-2025 Plan of care note Problem: Pain - Adult Goal: Verbalizes/displays adequate comfort level or baseline comfort level Outcome: Progressing Problem: Safety - Adult Goal: Free from fall injury Outcome: Progressing Problem: Discharge Planning Goal: Discharge to home or other facility with appropriate resources Outcome: Progressing Problem: Chronic Conditions and Co-morbidities Goal: Patient's chronic conditions and co-morbidity symptoms are monitored and maintained or improved Outcome: Progressing [facility] 04-14-2025 Plan of care note Called by zoraida WESLEY . Discussed with ED attending. 35 yo with hx of severe asthma and recurrent exacerbation, periph eos, on albuterol monotherapy, current smoker. presented to ed 2 days shortness of breath. Diffuse wheezing. Sp nebs. Now on NIV, with difficulty tolerating . Hx of dvt/pe. Check dimer In setting of severe signs and symptoms and reported respiratory distress , ok for ICU admission. Prior hx of high risk asthma requiring intubation. Check test, abg. Pneumonia / viral pcr. Contue sebs. / steroids , continue bipap. Admit to t3 [employer] Work Phone: 04-14-2025 Emergency department Note Pt reports slight improvement after breathing treatment but has continued wheezing. [facility] [place] 04-14-2025 Emergency department Note Pt reports slight improvement after breathing treatment but has continued wheezing. Emergency Department Encounter [facility] Patient: Carine Barba : 1990 Date of Evaluation: 04/14/2025 ED Provider: Vincent Huitron DO Chief Complaint Chief Complaint Patient presents with Shortness of Breath MOHEGAN Carine Barba is a 35 y.o. female who presents to the emergency department complaining of shortness of breath. Patient explains that she has a history of asthma. She is a smoker. Over the last 2 days she has been having worsening shortness of breath. She has been wheezing. She has been using her albuterol inhaler with no improvement in symptoms. She comes to the emergency department for evaluation. She does have a history of anxiety. Has had some chest discomfort associated with the breathing issues. Additional history obtained from : n/a Barriers to obtaining history from patient: n/a ROS: Review of Systems completed as follows: (Bold = positive, Not bold = negative) GENERAL: fevers, chills, malaise ENT: runny nose, congestion, sore throat, ear pain NEURO: weakness, numbness of tingling, headache CARDIOVASCULAR: chest pain, syncope PULMONARY: shortness of breath, cough, wheezing GASTROINTESTINAL: nausea, vomiting, abdominal pain, diarrhea, constipation MUSCULOSKELETAL: pain SKIN: rash, lesions, wound Past History Medical History[1] Surgical History[2] Social History[3] I have reviewed the history above as provided by nursing notes. Medications/Allergies Current Discharge Medication List CONTINUE these medications which have NOT CHANGED Details albuterol (2.5 MG/3ML) 0.083% nebulizer solution Take 3 mL (2.5 mg) by nebulization every 6 hours as needed for wheezing. Qty: 360 mL, Refills: 0 albuterol 108 (90 Base) MCG/ACT inhaler Inhale 2 puffs every 4 hours as needed for wheezing. Qty: 18 g, Refills: 0 Allergies[4] I have reviewed the history above as provided by nursing notes. Physical Exam ED Triage Vitals Temp Heart Rate Resp BP 04/14/25 1754 04/14/25 1754 04/14/25 1754 04/14/25 1754 36.8 C (98.3 F) 89 22 138/72 SpO2 Temp Source Heart Rate Source Patient Position 04/14/25 1754 04/14/25 1754 04/15/25 0043 04/14/25 1754 93 % Skin Monitor Lying BP Location FiO2 (%) 04/14/25 1754 -- Left arm GENERAL: The patient appears nourished and normally developed. Vital signs as documented. EYES: PERRL. No scleral icterus or orbital trauma noted. HEENT: Mucous membranes moist. Nares patent without copious rhinorrhea. LUNGS: Expiratory wheezing with occasional faint inspiratory wheezing. No increased work of breathing. No accessory muscle use. CARDIAC: Rhythm is regular. No murmur appreciated ABDOMEN: Nontender, soft, with no obvious masses, and no peritoneal signs. EXTREMITIES: Non edematous, with no obvious deformities. SKIN: Good color, with no significant rashes. No pallor. NEURO: No obvious neurological deficits, normal sensation and strength bilaterally. Diagnostics Labs: Results for orders placed or performed during the hospital encounter of 04/14/25 CBC auto differential Collection Time: 04/14/25 8:43 PM Result Value Ref Range Auto WBC 13.0 (H) 3.6 - 10.7 10*3/uL RBC 4.28 3.80 - 5.20 10*6/uL Hemoglobin 14.2 11.7 - 16.0 g/dL Hematocrit 41.0 35.0 - 47.0 % MCV 95.8 77.0 - 99.0 fL MCH 33.2 26.0 - 34.0 pg MCHC 34.6 30.5 - 36.0 % RDW 12.7 11.5 - 15.0 % Platelets 230 140 - 440 10*3/uL MPV 9.9 9.0 - 12.7 fL nRBC 0.0 0.0 - 2.0 /100 WBCs Neutrophils Relative 84.0 (H) 38.0 - 82.0 % Lymphocytes Relative 8.5 (L) 15.0 - 45.0 % Monocytes Relative 4.3 (L) 5.0 - 13.0 % Eosinophils Relative 2.6 0.0 - 6.0 % Basophils Relative 0.2 0.0 - 2.0 % Immature Grans % 0.4 0.0 - 2.0 % Neutrophils Absolute 10.9 (H) 1.8 - 7.5 10*3/uL Lymphocytes Absolute 1.1 1.0 - 4.3 10*3/uL Monocytes Absolute 0.6 0.0 - 0.9 10*3/uL Eosinophils Absolute 0.3 0.0 - 0.5 10*3/uL Basophils Absolute 0.0 0.0 - 0.2 10*3/uL Immature Grans Absolute 0.1 (H) <0.1 10*3/uL Basic metabolic panel Collection Time: 04/14/25 8:43 PM Result Value Ref Range SODIUM 140 136 - 145 mmol/L POTASSIUM 3.9 3.5 - 5.1 mmol/L CHLORIDE 104 98 - 107 mmol/L CARBON DIOXIDE 24 22 - 29 mmol/L UREA NITROGEN 9 8 - 21 mg/dL CREATININE 0.67 0.57 - 1.11 mg/dL GLUCOSE 119 (H) 74 - 100 mg/dL CALCIUM 9.0 8.4 - 10.2 mg/dL ANION GAP 12 3 - 13 mmol/L eGFR >90.0 >60.0 mL/min/1.73m*2 Serial Troponin, High Sensitivity Collection Time: 04/14/25 8:43 PM Result Value Ref Range Troponin HS Serial Baseline <3 <=14 ng/L hCG, quantitative Collection Time: 04/14/25 8:43 PM Result Value Ref Range HCG QUANTITATIVE <2.5 Females <5 mIU/mL ECG 12 lead Collection Time: 04/14/25 8:45 PM Result Value Ref Range Heart Rate 100 bpm QRSD Interval 90 ms QT Interval 347 ms QTC Interval 449 ms P [place] 81 degrees QRS [place] 77 degrees T Wave [place] 15 degrees HI Interval 146 ms D-dimer, quantitative Collection Time: 04/14/25 8:56 PM Result Value Ref Range D-DIMER, INNOVANCE 0.31 <0.50 mg/L SARS-CoV-2, Flu A/B, and RSV Combo Collection Time: 04/14/25 9:55 PM Specimen: Nasopharynx; Swab Result Value Ref Range SARS-CoV-2 Not Detected Not Detected Respiratory Syncytial Virus Not Detected Not Detected Influenza A Not Detected Not Detected Influenza B Not Detected Not Detected Troponin, High Sensitivity, Serial, Second Test Collection Time: 04/14/25 9:55 PM Result Value Ref Range 2h Troponin HS (Serial 2nd Troponin) <3 <=14 ng/L Radiographs: XR chest 1 view Final Result No radiographic acute cardiopulmonary process. Report Dictated on Electronically Signed By: Nubia Olivera MD Electronically Signed Date/Time: 04/14/2025 7:59 PM EDT Procedures/EKG: EKG Interpreted in EverZero software by myself SCREENINGS EMERGENCY DEPARTMENT COURSE and DIFFERENTIAL DIAGNOSIS/MDM: Vitals: Vitals: 04/14/25 2351 04/15/25 0043 04/15/25 0056 04/15/25 0102 BP: 115/67 127/73 BP Location: Left arm Patient Position: Lying Pulse: 98 89 99 Resp: 18 Temp: 36.8 C (98.3 F) TempSrc: Temporal SpO2: (!) 92% 95% 95% Weight: 77.1 kg (170 lb) Height: 1.676 m (5' 6") The patient presented with a chief complaint of shortness of breath. Vital signs reviewed. On exam, patient appears to have wheezing inspiratory and expiratory. However she does not appear in respiratory distress. I realized that she had been treated with 2 DuoNeb treatments prior to my evaluation. I ordered a third treatment. Because she was having persistent wheezing and was reporting persistent shortness of breath I also ordered IV magnesium. I ordered a chest x-ray to assess for pneumonia. I have low concern for pulmonary embolism, low concern for acute coronary syndrome. Unfortunately, patient did not have improvement in symptoms. She became more anxious. Nursing staff requested Atarax which was ordered. Patient anxiety worsened and she became and more respiratory distress. She continues to have inspiratory and expiratory wheezing. She now showing increased work of breathing. She did not improve with the magnesium. I ordered labs. I ordered EKG. ECG shows sinus tachycardia with nonspecific T wave changes on personal interpretation I attempted to place patient on noninvasive ventilation but she had difficulty tolerating this. She became tearful stating that she was anxious. We were able to verbally de-escalate her, she was also given a dose of IV Ativan. This improved her symptoms. She was able to tolerate CPAP. I did call and speak with the ICU, Dr. Douglas. He agreed to accept patient for transfer to assist with delaying any transfer to the hospital but explained that if patient had improvement we could consider telemetry floor. He recommended D-dimer, hCG. He recommended Pulmicort but this is currently not available. hCG was negative. Labs were unremarkable with exception of mild leukocytosis of 13.0. D-dimer was not elevated. Viral testing was obtained and negative. Patient was much more comfortable, did remove the CPAP because she did not like the pressure on her face. She was saturating well on nasal cannula oxygen. She appears much improved. When she is calm, her wheezing has lessened and the increased work of breathing has improved. She was given an additional Ativan as she has started become slightly more anxious but I do feel she would be appropriate for telemetry at this time. I discussed with the ICU and also with the hospitalist, Dr. Foote who agreed to accept patient for admission. Patient was transferred to [facility] for further workup of COPD exacerbation and asthma exacerbation. Diagnoses as of 04/15/25 0109 Severe persistent asthma with exacerbation ED Medications managed: Medications ipratropium-albuterol (Duo-Neb) 0.5-2.5 mg/3 mL nebulizer solution 3 mL (has no administration in time range) ipratropium-albuterol (Duo-Neb) 0.5-2.5 mg/3 mL nebulizer solution - Pyxis ADS Override Pull (3 mL Given 04/14/251937) ipratropium-albuterol (Duo-Neb) 0.5-2.5 mg/3 mL nebulizer solution - Pyxis ADS Override Pull (3 mL Given 04/14/252255) magnesium sulfate IVPB premix 2,000 mg (0 mg IntraVENous Stopped 04/14/252049) methylPREDNISolone sodium succinate (PF) (SOLU-Medrol) injection 125 mg (125 mg IntraVENous Given 04/14/251938) hydrOXYzine pamoate (Vistaril) capsule 25 mg (25 mg Oral Given 04/14/252010) ondansetron (Zofran) injection 4 mg (4 mg IntraVENous Given 04/14/252048) LORazepam (Ativan) injection 1 mg (1 mg IntraVENous Given 04/14/252048) LORazepam (Ativan) injection 1 mg (1 mg IntraVENous Given 04/14/252254) LORazepam (Ativan) tablet 0.5 mg (0.5 mg Oral Given 04/15/2556) ipratropium-albuterol (Duo-Neb) 0.5-2.5 mg/3 mL nebulizer solution 3 mL (3 mL Nebulization Given 04/15/2555) Total Critical Care time was 35 minutes, excluding separately reportable procedures. There was a high probability of clinically significant/life threatening deterioration in the patient's condition which required my urgent intervention. Patients symptoms are consistent with sepsis, severe sepsis or septic shock (if yes, use ".sepsiscoremeasure") - no Final Impression 1. Severe persistent asthma with exacerbation DISPOSITION admit Comment: Please note this report has been produced using speech recognition software and may contain errors related to that system including errors in grammar, punctuation, and spelling, as well as words and phrases that may be inappropriate. If there are any questions or concerns please feel free to contact the dictating provider for clarification. Vincent Huitron, DO [employer] [1] Past Medical History: Diagnosis Date Anxiety Asthma History of blood clots Multiple fractures bilateral, clavicle, hand, L4-L5 verterbral bodiess [2] Past Surgical History: Procedure Laterality Date ANTERIOR CRUCIATE LIGAMENT REPAIR BREAST SURGERY SECTION (HISTORICAL) [3] Social History Socioeconomic History Marital status: Single Tobacco Use Smoking status: Every Day Current packs/day: 0.25 Types: Cigarettes Smokeless tobacco: Current Vaping Use Vaping status: Never Used Substance and Sexual Activity Alcohol use: Yes Drug use: Yes Types: Marijuana Social Drivers of Health Food Insecurity: No Food Insecurity (04/15/2025) Hunger Vital Sign Worried About Running Out of Food in the Last Year: Never true Ran Out of Food in the Last Year: Never true Transportation Needs: No Transportation Needs (04/15/2025) PRAPARE - Transportation Lack of Transportation (Medical): No Lack of Transportation (Non-Medical): No Intimate Partner Violence: Not At Risk (04/15/2025) Humiliation, Afraid, Rape, and Kick questionnaire Fear of Current or Ex-Partner: No Emotionally Abused: No Physically Abused: No Sexually Abused: No Housing Stability: Low Risk (04/15/2025) Housing Stability Vital Sign Unable to Pay for Housing in the Last Year: No Number of Times Moved in the Last Year: 0 Homeless in the Last Year: No [4] Allergies Allergen Reactions Cefadroxil Swelling Other Reaction(s): GI Upset Splotchy face Vincent Huitron DO 04/15/25 0114 Pt to room 9 with c/o shortness of breath and wheezing x 2 days. Pt reports she has a history of asthma with no improvement with use of inhalers. documented in this encounter [facility] 04-14-2025 Emergency department Triage note Pt to room 9 with c/o shortness of breath and wheezing x 2 days. Pt reports she has a history of asthma with no improvement with use of inhalers. [facility] 04-14-2025 Physician Emergen cy department Note Emergency Department Encounter [facility] Patient: Carine Barba : 1990 Date of Evaluation: 04/14/2025 ED Provider: Vincent Huitron DO Chief Complaint Chief Complaint Patient presents with Shortness of Breath MOHEGANDelfino Barba is a 35 y.o. female who presents to the emergency department complaining of shortness of breath. Patient explains that she has a history of asthma. She is a smoker. Over the last 2 days she has been having worsening shortness of breath. She has been wheezing. She has been using her albuterol inhaler with no improvement in symptoms. She comes to the emergency department for evaluation. She does have a history of anxiety. Has had some chest discomfort associated with the breathing issues. Additional history obtained from : n/a Barriers to obtaining history from patient: n/a ROS: Review of Systems completed as follows: (Bold = positive, Not bold = negative) GENERAL: fevers, chills, malaise ENT: runny nose, congestion, sore throat, ear pain NEURO: weakness, numbness of tingling, headache CARDIOVASCULAR: chest pain, syncope PULMONARY: shortness of breath, cough, wheezing GASTROINTESTINAL: nausea, vomiting, abdominal pain, diarrhea, constipation MUSCULOSKELETAL: pain SKIN: rash, lesions, wound Past History Medical History[1] Surgical History[2] Social History[3] I have reviewed the history above as provided by nursing notes. Medications/Allergies Current Discharge Medication List CONTINUE these medications which have NOT CHANGED Details albuterol (2.5 MG/3ML) 0.083% nebulizer solution Take 3 mL (2.5 mg) by nebulization every 6 hours as needed for wheezing. Qty: 360 mL, Refills: 0 albuterol 108 (90 Base) MCG/ACT inhaler Inhale 2 puffs every 4 hours as needed for wheezing. Qty: 18 g, Refills: 0 Allergies[4] I have reviewed the history above as provided by nursing notes. Physical Exam ED Triage Vitals Temp Heart Rate Resp BP 04/14/25 1754 04/14/25 1754 04/14/25 1754 04/14/25 1754 36.8 C (98.3 F) 89 22 138/72 SpO2 Temp Source Heart Rate Source Patient Position 04/14/25 1754 04/14/25 1754 04/15/25 0043 04/14/25 175 93 % Skin Monitor Lying BP Location FiO2 (%) 04/14/25 1754 -- Left arm GENERAL: The patient appears nourished and normally developed. Vital signs as documented. EYES: PERRL. No scleral icterus or orbital trauma noted. HEENT: Mucous membranes moist. Nares patent without copious rhinorrhea. LUNGS: Expiratory wheezing with occasional faint inspiratory wheezing. No increased work of breathing. No accessory muscle use. CARDIAC: Rhythm is regular. No murmur appreciated ABDOMEN: Nontender, soft, with no obvious masses, and no peritoneal signs. EXTREMITIES: Non edematous, with no obvious deformities. SKIN: Good color, with no significant rashes. No pallor. NEURO: No obvious neurological deficits, normal sensation and strength bilaterally. Diagnostics Labs: Results for orders placed or performed during the hospital encounter of 04/14/25 CBC auto differential Collection Time: 04/14/25 8:43 PM Result Value Ref Range Auto WBC 13.0 (H) 3.6 - 10.7 10*3/uL RBC 4.28 3.80 - 5.20 10*6/uL Hemoglobin 14.2 11.7 - 16.0 g/dL Hematocrit 41.0 35.0 - 47.0 % MCV 95.8 77.0 - 99.0 fL MCH 33.2 26.0 - 34.0 pg MCHC 34.6 30.5 - 36.0 % RDW 12.7 11.5 - 15.0 % Platelets 230 140 - 440 10*3/uL MPV 9.9 9.0 - 12.7 fL nRBC 0.0 0.0 - 2.0 /100 WBCs Neutrophils Relative 84.0 (H) 38.0 - 82.0 % Lymphocytes Relative 8.5 (L) 15.0 - 45.0 % Monocytes Relative 4.3 (L) 5.0 - 13.0 % Eosinophils Relative 2.6 0.0 - 6.0 % Basophils Relative 0.2 0.0 - 2.0 % Immature Grans % 0.4 0.0 - 2.0 % Neutrophils Absolute 10.9 (H) 1.8 - 7.5 10*3/uL Lymphocytes Absolute 1.1 1.0 - 4.3 10*3/uL Monocytes Absolute 0.6 0.0 - 0.9 10*3/uL Eosinophils Absolute 0.3 0.0 - 0.5 10*3/uL Basophils Absolute 0.0 0.0 - 0.2 10*3/uL Immature Grans Absolute 0.1 (H) <0.1 10*3/uL Basic metabolic panel Collection Time: 04/14/25 8:43 PM Result Value Ref Range SODIUM 140 136 - 145 mmol/L POTASSIUM 3.9 3.5 - 5.1 mmol/L CHLORIDE 104 98 - 107 mmol/L CARBON DIOXIDE 24 22 - 29 mmol/L UREA NITROGEN 9 8 - 21 mg/dL CREATININE 0.67 0.57 - 1.11 mg/dL GLUCOSE 119 (H) 74 - 100 mg/dL CALCIUM 9.0 8.4 - 10.2 mg/dL ANION GAP 12 3 - 13 mmol/L eGFR >90.0 >60.0 mL/min/1.73m*2 Serial Troponin, High Sensitivity Collection Time: 04/14/25 8:43 PM Result Value Ref Range Troponin HS Serial Baseline <3 <=14 ng/L hCG, quantitative Collection Time: 04/14/25 8:43 PM Result Value Ref Range HCG QUANTITATIVE <2.5 Females <5 mIU/mL ECG 12 lead Collection Time: 04/14/25 8:45 PM Result Value Ref Range Heart Rate 100 bpm QRSD Interval 90 ms QT Interval 347 ms QTC Interval 449 ms P [place] 81 degrees QRS [place] 77 degrees T Wave [place] 15 degrees HI Interval 146 ms D-dimer, quantitative Collection Time: 04/14/25 8:56 PM Result Value Ref Range D-DIMER, INNOVANCE 0.31 <0.50 mg/L SARS-CoV-2, Flu A/B, and RSV Combo Collection Time: 04/14/25 9:55 PM Specimen: Nasopharynx; Swab Result Value Ref Range SARS-CoV-2 Not Detected Not Detected Respiratory Syncytial Virus Not Detected Not Detected Influenza A Not Detected Not Detected Influenza B Not Detected Not Detected Troponin, High Sensitivity, Serial, Second Test Collection Time: 04/14/25 9:55 PM Result Value Ref Range 2h Troponin HS (Serial 2nd Troponin) <3 <=14 ng/L Radiographs: XR chest 1 view Final Result No radiographic acute cardiopulmonary process. Report Dictated on Electronically Signed By: Nubia Olivera MD Electronically Signed Date/Time: 04/14/2025 7:59 PM EDT Procedures/EKG: EKG Interpreted in Ever[employer] software by myself SCREENINGS EMERGENCY DEPARTMENT COURSE and DIFFERENTIAL DIAGNOSIS/MDM: Vitals: Vitals: 04/14/25 2351 04/15/25 0043 04/15/25 0056 04/15/25 0102 BP: 115/67 127/73 BP Location: Left arm Patient Position: Lying Pulse: 98 89 99 Resp: Temp: 36.8 C (98.3 F) TempSrc: Temporal SpO2: (!) 92% 95% 95% Weight: 77.1 kg (170 lb) Height: 1.676 m (5' 6") The patient presented with a chief complaint of shortness of breath. Vital signs reviewed. On exam, patient appears to have wheezing inspiratory and expiratory. However she does not appear in respiratory distress. I realized that she had been treated with 2 DuoNeb treatments prior to my evaluation. I ordered a third treatment. Because she was having persistent wheezing and was reporting persistent shortness of breath I also ordered IV magnesium. I ordered a chest x-ray to assess for pneumonia. I have low concern for pulmonary embolism, low concern for acute coronary syndrome. Unfortunately, patient did not have improvement in symptoms. She became more anxious. Nursing staff requested Atarax which was ordered. Patient anxiety worsened and she became and more respiratory distress. She continues to have inspiratory and expiratory wheezing. She now showing increased work of breathing. She did not improve with the magnesium. I ordered labs. I ordered EKG. ECG shows sinus tachycardia with nonspecific T wave changes on personal interpretation I attempted to place patient on noninvasive ventilation but she had difficulty tolerating this. She became tearful stating that she was anxious. We were able to verbally de-escalate her, she was also given a dose of IV Ativan. This improved her symptoms. She was able to tolerate CPAP. I did call and speak with the ICU, Dr. Douglas. He agreed to accept patient for transfer to assist with delaying any transfer to the hospital but explained that if patient had improvement we could consider telemetry floor. He recommended D-dimer, hCG. He recommended Pulmicort but this is currently not available. hCG was negative. Labs were unremarkable with exception of mild leukocytosis of 13.0. D-dimer was not elevated. Viral testing was obtained and negative. Patient was much more comfortable, did remove the CPAP because she did not like the pressure on her face. She was saturating well on nasal cannula oxygen. She appears much improved. When she is calm, her wheezing has lessened and the increased work of breathing has improved. She was given an additional Ativan as she has started become slightly more anxious but I do feel she would be appropriate for telemetry at this time. I discussed with the ICU and also with the hospitalist, Dr. Foote who agreed to accept patient for admission. Patient was transferred to [facility] for further workup of COPD exacerbation and asthma exacerbation. Diagnoses as of 04/15/25108 Severe persistent asthma with exacerbation ED Medications managed: Medications ipratropium-albuterol (Duo-Neb) 0.5-2.5 mg/3 mL nebulizer solution 3 mL (has no administration in time range) ipratropium-albuterol (Duo-Neb) 0.5-2.5 mg/3 mL nebulizer solution - Pyxis ADS Override Pull (3 mL Given 04/14/251937) ipratropium-albuterol (Duo-Neb) 0.5-2.5 mg/3 mL nebulizer solution - Pyxis ADS Override Pull (3 mL Given 04/14/252255) magnesium sulfate IVPB premix 2,000 mg (0 mg IntraVENous Stopped 04/14/252049) methylPREDNISolone sodium succinate (PF) (SOLU-Medrol) injection 125 mg (125 mg IntraVENous Given 04/14/251938) hydrOXYzine pamoate (Vistaril) capsule 25 mg (25 mg Oral Given 04/14/252010) ondansetron (Zofran) injection 4 mg (4 mg IntraVENous Given 04/14/252048) LORazepam (Ativan) injection 1 mg (1 mg IntraVENous Given 04/14/252048) LORazepam (Ativan) injection 1 mg (1 mg IntraVENous Given 04/14/252254) LORazepam (Ativan) tablet 0.5 mg (0.5 mg Oral Given 04/15/2556) ipratropium-albuterol (Duo-Neb) 0.5-2.5 mg/3 mL nebulizer solution 3 mL (3 mL Nebulization Given 6/23/25 0056) Total Critical Care time was 35 minutes, excluding separately reportable procedures. There was a high probability of clinically significant/life threatening deterioration in the patient's condition which required my urgent intervention. Patients symptoms are consistent with sepsis, severe sepsis or septic shock (if yes, use ".sepsiscoremeasure") - no Final Impression 1. Severe persistent asthma with exacerbation DISPOSITION admit Comment: Please note this report has been produced using speech recognition software and may contain errors related to that system including errors in grammar, punctuation, and spelling, as well as words and phrases that may be inappropriate. If there are any questions or concerns please feel free to contact the dictating provider for clarification. Vincent Huitron DO [facility] [1] Past Medical History: Diagnosis Date Anxiety Asthma History of blood clots Multiple fractures bilateral, clavicle, hand, L4-L5 verterbral bodiess [2] Past Surgical History: Procedure Laterality Date ANTERIOR CRUCIATE LIGAMENT REPAIR BREAST SURGERY SECTION (HISTORICAL) [3] Social History Socioeconomic History Marital status: Single Tobacco Use Smoking status: Every Day Current packs/day: 0.25 Types: Cigarettes Smokeless tobacco: Current Vaping Use Vaping status: Never Used Substance and Sexual Activity Alcohol use: Yes Drug use: Yes Types: Marijuana Social Drivers of Health Food Insecurity: No Food Insecurity (04/15/2025) Hunger Vital Sign Worried About Running Out of Food in the Last Year: Never true Ran Out of Food in the Last Year: Never true Transportation Needs: No Transportation Needs (04/15/2025) PRAPARE - Transportation Lack of Transportation (Medical): No Lack of Transportation (Non-Medical): No Intimate Partner Violence: Not At Risk (04/15/2025) Humiliation, Afraid, Rape, and Kick questionnaire Fear of Current or Ex-Partner: No Emotionally Abused: No Physically Abused: No Sexually Abused: No Housing Stability: Low Risk (04/15/2025) Housing Stability Vital Sign Unable to Pay for Housing in the Last Year: No Number of Times Moved in the Last Year: 0 Homeless in the Last Year: No [4] Allergies Allergen Reactions Cefadroxil Swelling Other Reaction(s): GI Upset Splotchy face Vincent Huitron DO 04/15/25 0114 [facility] 01-08-2025 Hospital Discharg e instructions Giancarlo Batres MD - 01/08/2025 3:06 AM EDT Take the medications as written including prednisone daily. Schedule an appointment with your physician later this week. Return to the emergency department if symptoms change or worsen. The following attachments cannot be sent through Care Everywhere.How to Use a Nebulizer ED (Luxembourger)Asthma, Adult ED (Luxembourger)documented in this encounter [facility] 01-08-2025 Emergency department Note Patient arrived via wheelchair to room 5 with male visitor. Patient complains of SOB since yesterday. Patient has hx of asthma and has been using her inhalers with no relief. Patient audibly wheezing. Patient states muscles in chest feel tight and it hurts to take a deep breath. documented in this encounter [facility] 01-08-2025 Emergency department Triage note Patient arrived via wheelchair to room 5 with male visitor. Patient complains of SOB since yesterday. Patient has hx of asthma and has been using her inhalers with no relief. Patient audibly wheezing. Patient states muscles in chest feel tight and it hurts to take a deep breath. [facility] 10-20-2024 Note HNO ID: [id number] Author: MICHELLE HILL RN Service: Care Management Author Type: Registered Nurse Type: Care Mgt Progress Note Filed: 10/20/2024 10:21 Note Text: CARE MANAGEMENT DISCHARGE NOTE SERVICE DATE: October 20, 2024 SERVICE TIME: 10:21 AM Admission Date: 10/18/2024 LOS: 2 days Discharge Arrangement Discharge Arrangement: Home with Self Care Services Arranged Medical Services: Other: See Comment Provider Name: NA Phone: NA Caregiver Assessment Caregiver is ready, willing and able to meet the patient's needs as recommended by the inter-professional team: No Caregiver needed Transportation Arrangements Transportation Arrangements: Car Date of Trip: 10/20/24 Destination: home Handoff Communication: Handoff to: Primary Care Physician Primary Care Physician Name/Phone: Naldo Ryan [phone] Additional Information: Discharge written for patient to go home. Patient agreeable to discharge plan and denies needs. Significant other to transport. Bedside nurse updated. SOC sent to PCP. SIGNATURE: Michelle Hill RN PATIENT NAME: Carine Barba DATE: October 20, 2024 TIME: 10:21 AM [facility] 10-19-2024 Note HNO ID: [id number] Author: SUNIL ROMERO MD Service: General Internal Medicine Author Type: Physician Type: Progress Notes Filed: 10/19/2024 13:46 Note Text: INPATIENT PROGRESS NOTE Subjective CHIEF COMPLAINT: SOB INTERVAL HPI: Feels better, found with influenza A, less SOB and cough, no CP, No N/V/D. Current Facility-Administered Medications Medication Dose Route Frequency NaCl 0.9% iv flush bag 20 mL INTRAVENOUS PRN cefTRIAXone iv piggyback 1 g in dextrose (iso-osmotic) 50 mL (ROCEPHIN) 1 g INTRAVENOUS q 24 H azithromycin 500 mg tab(s) (ZITHROMAX) 500 mg ORAL DAILY ipratropium-albuterol 3 mL nebulizer solution (DUONEB) 3 mL INHALATION q 6 H PRN ipratropium-albuterol 3 mL nebulizer solution (DUONEB) 3 mL INHALATION QID heparin 5,000 Units injection 5,000 Units SUBCUTANEOUS q 12 H ondansetron orally disintegrating 4 mg tab(s) (ZOFRAN ODT) 4 mg ORAL q 6 H PRN Or ondansetron (PF) 4 mg injection (ZOFRAN) 4 mg INTRAVENOUS q 6 H PRN acetaminophen 650 mg tab(s) (TYLENOL) 650 mg ORAL q 6 H PRN sodium chloride 3 % 3 mL (NEBUSAL) 3 mL INHALATION BID methylPREDNISolone sod succinate(PF) 40 mg injection (SOLU-Medrol) 40 mg INTRAVENOUS q 12 H oseltamivir 75 mg cap(s) (TAMIFLU) 75 mg ORAL BID guaiFENesin 600 mg ER tab(s) (MUCINEX) 600 mg ORAL q 12 H Objective PHYSICAL EXAM: BP 114/79 Pulse 87 Temp (Src) 98.2 (Oral) Resp 16 Ht 5' 7" (1.70m) Wt 166 lb 7.2 oz (75.5kg) SpO2 98% BMI 26.06 kg/(m2). O2 Therapy: Room Air Physical Exam Performed GENERAL: Alert, no distress, cooperative SKIN: Skin color, texture, turgor normal. No rashes or lesions. NECK: No jugulovenous distention, Supple BACK: Back symmetric, No CVAT. LUNG: Less wheezing, good airway entry, scattered rales. CV: Regular sounds with no murmurs. ABDOMEN: Soft non tender. DATA: Diagnostic tests reviewed for today's visit: Most recent labs and imaging results. Assessment/Plan Principal Problem: Severe asthma with exacerbation (POA: Yes) Active Problems: Pneumonia of both lungs due to infectious organism (POA: Yes) Influenza A (POA: Yes) Nicotine use disorder, F17.2 (POA: Plan of care: Continue steroids and aerosols. Empiric antibiotics Continue Tamiflu. Resume home medication. Monitor LABS and clinical course. F/U with pulmonary. Advised with smoking cessation. If she decided to go home, will need steroids and Tamiflu on discharge and to F/U with pulmonary OP. Medication and Non-Pharmacologic VTE Prophylaxis/Anticoagulants Anticoagulant AND Antiplatelet Medications (From admission, onward) Start Dose Route Frequency Last Action Ordered Stop 10/18/24 1800 heparin 5,000 Units injection (Medical Risk Categories) 5,000 Units SUBCUTANEOUS EVERY 12 HOURS Given, 10/19 0828 10/18/24 1749 -- 10/18/24 1800 activity - mobilize [place] ([place]) VTE Prophylaxis: VTE prophylaxis appropriate SIGNATURE: Sunil Romero MD PATIENT NAME: Carine Barba [facility] 10-18-2024 Note SARS-COV-2 (AGENT OF COVID-19) RNA: Not detected INFLUENZA A RNA: Detected INFLUENZA B RNA: Not detected RESPIRATORY SYNCYTIAL VIRUS (RSV) RNA: Not detected [facility] Comment on above: Performed By: #### 9 [id number] ####[facility] [id number] [place], [place] [id number] [place] [address] [facility] Evaluation note Diagnosis Moderate persistent asthma with acute exacerbation- Primary Infiltrate of lower lobe of right lung present on imaging study Asthma in adult, moderate persistent, uncomplicated documented in this encounter [facility] Work Phone: Evaluation noteNo assessment information available [facility] Work Phone: Evaluation note* Diagnosis Moderate persistent asthma with exacerbation- Primary Unspecified asthma, with exacerbation [facility] Diagnosis Severe persistent asthma with exacerbation- Primary Unspecified asthma, with exacerbation Severe persistent asthma with exacerbation Unspecified asthma, with exacerbation [facility] Additional Instructions Cardiac work-up negative. D-dimer negative. You were evaluated by case management for your anxiety. You are set up for outpatient evaluation. 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 Advance Directives and Living Will Power of Rock Room Worker Latest Code Status on File Code Status Date Activated Date Inactivated Comments Full Code 11/11/2019 9:42 PM 11/12/2019 4:16 PM Documents on File Type Date Recorded 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 * Attachments The following attachments cannot be sent through Care Everywhere. * Asthma: General Info (Luxembourger) * Nebulizers: General Info (Luxembourger) documented in this encounter* Attachments The following attachments cannot be sent through Care Everywhere. * Asthma Triggers: General Info (Luxembourger) documented in this encounter* Attachments The following attachments cannot be sent through Care Everywhere. * Asthma: General Info (Luxembourger) documented in this encounter Assessments Diagnosis Moderate persistent asthma with exacerbation Unspecified asthma, with exacerbation Diagnosis Exacerbation of asthma, unspecified asthma severity, unspecified whether persistent Chief Complaint and Reason for Visit Chief Complaint CP Additional Source Comments INFORMATION SOURCE (unrecogn ized section and content) DATE CREATED AUTHOR 04/14/2018 [facility] ([place]) DATE CREATED AUTHOR AUTHOR'S ORGANIZ ATION 04/19/2018 [facility] DATE CREATED AUTHOR AUTHOR'S ORGANIZ ATION 07/07/2020 [facility] DATE CREATED AUTHOR AUTHOR'S ORGANIZ ATION 10/22/2024 [facility] DATE CREATED AUTHOR AUTHOR'S ORGANIZ ATION 11/16/2024 [facility] DATE CREATED AUTHOR AUTHOR'S ORGANIZ ATION 04/17/2025 [facility] Reason for Visit (unrecogniz ed section and content) Reason Comments Shortness of Breath Specialty Diagnoses / Procedures Referred By Nayely reyes Referred To Contact Diagnoses Severe persistent asthma with exacerbation Procedures j45.51 Perez Allison MD [address] [place] [address] Phone: tel: fax: [facility] [address] [address] Phone: tel: Referral ID Status Reason Start Date Expiration Date Visits Re quested Visits Authorized [id number] 1 1 Reason Comments Wheezing Reason Comments Shortness of Breath progressive x3 days, wose today Reason Onset Date Comments Hospital Follow-up 04/16/2025 Goals (unrecognized section and content) Goals may be documented in a n alternate section Scheduled Active and Recently Administ ered Medications (unrecognized section and content) Medication Order 01/06/2025 01/07/2025 01/08/2025 albuterol (2.5 MG/3ML) 0.083% nebulizer solution 2.5 mg (COMPLETED) 2.5 mg, Nebulization, Once, On Tue01/08/25 at 0230, For 1 dose 0232 (Given - Provid er: Cynthia Tran RN) ipratropium-albuterol (Duo-Neb) 0.5-2.5 mg/3 mL nebulizer solution 3 mL (COMPLETED) 3 mL, Nebulization, Once, On Tue01/08/25 at 0205, For 1 dose 0210 (Given - Provid er: Cynthia Tran RN) methylPREDNISolone sodium succinate (PF) (SOLU-Medrol) injection 81.25 mg (COMPLETED) 81.25 mg (rounded from 80 mg), IntraVENous, Once, On Tue01/08/25 at 0205, For 1 dose 020 (Given - Provid er: Cynthia Tran RN) Scheduled Medication Order 04/13/2025 04/14/2025 04/15/2025 doxycycline (Vibramycin) 100 mg in sodium chloride 0.9 % 100 mL IVPB 100 mg, IntraVENous, at 100 mL/hr, Administer over 60 Minutes, Every 12 hours, First dose on Tue04/15/25 at 0200, Mini-Bag Plus bag, Suspected Indication (Select all that apply): Pneumonia (CAP) 0231 (New Bag - Prov ider: Elena Schwartz, RN)0350 (Stopped - Provider: Elena Schwartz RN)1304 (New Bag - Provider: Giancarlo Romero, DAPHNE)1309 (Stopped - Provider: Giancarlo Romero RN - Comment: after 5 minutes of infusing patient refused antibiotic. educated importance of antibiotic. dr allison notified)4618 (Canceled Entry - Provider: Giancarlo Romero RN) enoxaparin (Lovenox) syringe 40 mg 40 mg, SubCUTAneous, Every 24 hours, First dose on Tue04/15/25 at 0145, Indication of Use: Prophylaxis-DVT/PE, Indications: Prophylaxis of Venous Thromboembolism 0147 (Not Given - Provider: Elena Schwartz RN - Reason: Patient/family refused) hydrOXYzine pamoate (Vistaril) capsule 25 mg (COMPLETED) 25 mg, Oral, Once, On Tue04/14/25 at 2000, For 1 dose 2010 (Given - Provider: Gurmeet Teague, DAPHNE) ipratropium (Atrovent) 0.02 % nebulizer solution 0.5 mg (CANCELED) 0.5 mg, Nebulization, Every 6 hours RT, First dose on Tue04/15/25 at 0200 0200 (Given - Provid er: Edgar Segura, ARIE)0812 (Not Given - Provider: Francis Hamm RCP - Reason: Patient/family refused - Comment: does not feel good)1148 (Given - Provider: Francis Hamm RCP) ipratropium-albuterol (Duo-Neb) 0.5-2.5 mg/3 mL nebulizer solution 3 mL (COMPLETED) 3 mL, Nebulization, Once, On Tue04/14/25 at 1925, For 1 dose 1938 (Given - Provider: Gurmeet Teague RN) ipratropium-albuterol (Duo-Neb) 0.5-2.5 mg/3 mL nebulizer solution 3 mL (COMPLETED) 3 mL, Nebulization, Once, On Tue04/15/25 at 0100, For 1 dose 0056 (Given - Provid er: Elena Schwartz RN) ipratropium-albuterol (Duo-Neb) 0.5-2.5 mg/3 mL nebulizer solution 3 mL 3 mL, Nebulization, Every 4 hours while awake, First dose on Tue04/15/25 at 1400 1600 (Canceled Entry - Provider: Automatic Discharge Provider - Comment: Automatically canceled at discontinue of medication order) ketorolac (Toradol) injection 30 mg (COMPLETED) 30 mg, IntraVENous, Once, On Tue04/15/25 at 0600, For 1 dose 0553 (Given - Provid er: Elena Schwartz RN) LORazepam (Ativan) injection 1 mg (COMPLETED) 1 mg, IntraVENous, Once, On Tue04/14/25 at 2040, For 1 dose, For IV doses dilute dose with 1ml NS. 2048 (Given - Provider: Gurmeet Teague, DAPHNE) LORazepam (Ativan) injection 1 mg (COMPLETED) 1 mg, IntraVENous, Once, On Tue04/14/25 at 2215, For 1 dose, For IV doses dilute dose with 1ml NS. 2255 (Given - Provider: Gurmeet Teague, RN) LORazepam (Ativan) tablet 0.5 mg (COMPLETED) 0.5 mg, Oral, Once, On Tue04/15/25 at 0100, For 1 dose 0057 (Given - Provid er: Elena Schwartz RN) magnesium sulfate IVPB premix 2,000 mg (COMPLETED) 2,000 mg, IntraVENous, at 150 mL/hr, Administer over 20 Minutes, Once, On Tue04/14/25 at 1935, For 1 dose, Recommended infusion rate not to exceed 1,000 mg (milligrams) per hour. 1938 (New Bag - Provider: Gurmeet Teague RN)2049 (Stopped - Provider: Gurmeet Teague RN) methylPREDNISolone sod suc (PF) (SOLU-Medrol) 40 MG injection 40 mg 40 mg, IntraVENous, Every 8 hours, First dose on Tue04/15/25 at 0400 0348 (Given - Provid er: Elena Schwartz RN)1154 (Given - Provider: Giancarlo Romero RN) methylPREDNISolone sodium succinate (PF) (SOLU-Medrol) injection 125 mg (COMPLETED) 125 mg, IntraVENous, Once, On Tue04/14/25 at 1935, For 1 dose 1938 (Given - Provider: Gurmeet Teague RN) mometasone-formoterol (Dulera 200) 200-5 MCG/ACT inhaler 2 puff 2 puff, Inhalation, 2 times daily, First dose on Tue04/15/25 at 1300, Administer using an inhaler spacer. Rinse mouth with water after use to reduce aftertaste and incidence of candidiasis. Do not swallow. 1300 (Canceled Entry - Provider: Automatic Discharge Provider - Comment: Automatically canceled at discontinue of medication order) ondansetron (Zofran) injection 4 mg (COMPLETED) 4 mg, IntraVENous, Once, On Tue04/14/25 at 2034, For 1 dose 2048 (Given - Provider: Gurmeet Teague RN) oxyCODONE (Roxicodone) immediate release tablet 7.5 mg (COMPLETED) 7.5 mg, Oral, Once, On Tue04/15/25 at 1245, For 1 dose 1304 (Given - Provid er: Giancarlo Romero RN) QUEtiapine (SEROquel) tablet 50 mg (COMPLETED) 50 mg, Oral, Once, On Tue04/15/25 at 0700, For 1 dose 0726 (Given - Provid er: Elena Schwartz RN) Continuous Medication Order 04/13/2025 04/14/2025 04/15/2025 sodium chloride 0.9 % infusion (CANCELED) 50 mL/hr, IntraVENous, Continuous, Starting on Tue04/15/25 at 0145 0231 (New Bag - Prov ider: Elena Schwartz RN)0503 (Stopped - Provider: Elena Schwartz RN) PRN Medication Order 04/13/2025 04/14/2025 04/15/2025 acetaminophen (Tylenol) suppository 650 mg(Linked Group 1) 650 mg, Rectal, Every 6 hours PRN, fever, For temp greater than 100.4 F (38 C), Starting on Tue04/15/25 at 0132, Administer if oral route cannot be used. Maximum dose of acetaminophen is 4000 mg from all sources in 24 hours. 0445 (See Alternativ e - Provider: Elena Schwartz RN)1158 (See Alternative - Provider: Giancarlo Romero RN) acetaminophen (Tylenol) tablet 650 mg(Linked Group 1) 650 mg, Oral, Every 6 hours PRN, mild pain (1-3), fever, For temp greater than 100.4 F (38 C), Starting on Tue04/15/25 at 0132, Maximum dose of acetaminophen is 4000 mg from all sources in 24 hours. 0445 (Given - Provid er: Elena Schwartz RN)1158 (Given - Provider: Giancarlo Romero RN) guaiFENesin (Robitussin) 100 MG/5ML liquid 200 mg 200 mg, Oral, Every 4 hours PRN, cough, Starting on Tue04/15/25 at 0136 hydrOXYzine pamoate (Vistaril) capsule 25 mg 25 mg, Oral, Every 6 hours PRN, anxiety, Starting on Tue04/15/25 at 1335 ketorolac (Toradol) injection 30 mg 30 mg, IntraVENous, Every 6 hours PRN, moderate pain (4-6), Headache, Starting on Tue04/15/25 at 1200, For 5 days 1155 (Given - Provid er: Giancarlo Romero RN) levalbuterol (Xopenex) 1.25 MG/3ML nebulizer solution 1.25 mg 1.25 mg, Nebulization, Every 6 hours PRN, wheezing, Starting on Tue04/15/25 at 0134 LORazepam (Ativan) injection 0.5 mg 0.5 mg, IntraVENous, 3 times daily PRN, anxiety, Starting on Tue04/15/25 at 0135, For IV doses dilute dose with 1ml NS. 0232 (Given - Provid er: Elena Schwartz RN)07 (Given - Provider: Elena Schwartz RN) ondansetron (Zofran) injection 4 mg(Linked Group 2) 4 mg, IntraVENous, Every 6 hours PRN, nausea, vomiting, Starting on Tue04/15/25 at 0132, 1st Line. Give IV if patient is unable to take orally. If inadequate response within 60 minutes, proceed to next-line agent or contact provider if no further options ordered. 07 (Given - Provid er: Elena Schwartz RN) ondansetron ODT (Zofran-ODT) disintegrating tablet 4 mg(Linked Group 2) 4 mg, Oral, Every 8 hours PRN, nausea, vomiting, Starting on Tue04/15/25 at 0132, 1st Line. If inadequate response within 60 minutes, proceed to next-line agent or contact provider if no further options ordered. Patient should allow tablet to dissolve on tongue. Do not remove from blister pack until just before administering. 07 (See Alternativ e - Provider: Elena Schwartz RN) polyethylene glycol (PEG) 3350 (Miralax) packet 17 g 17 g, Oral, Daily PRN, constipation, Starting on Tue04/15/25 at 0132, 1st line for treatment of constipation - give scheduled if no bowel movement in past 24 hours. No Frequency Medication Order 04/13/2025 04/14/2025 04/15/2025 ipratropium-albuterol (Duo-Neb) 0.5-2.5 mg/3 mL nebulizer solution - Pyxis ADS Override Pull (COMPLETED) Starting on Tue04/14/25 at 1805, For 1 dose, Carmen Calvo: cabinet override 2256 (Given - Provider: Lori Teague RN) Linked Groups Order Group 1: acetaminophen (Tylenol) tablet 650 mgJump to med 650 mg, Oral, Every 6 hours PRN, mild pain (1-3), fever, For temp greater than 100.4 F (38 C), Starting on Tue04/15/25 at 0132, Maximum dose of acetaminophen is 4000 mg from all sources in 24 hours. Or acetaminophen (Tylenol) suppository 650 mgJump to med 650 mg, Rectal, Every 6 hours PRN, fever, For temp greater than 100.4 F (38 C), Starting on Tue04/15/25 at 0132, Administer if oral route cannot be used. Maximum dose of acetaminophen is 4000 mg from all sources in 24 hours. Group 2: ondansetron ODT (Zofran-ODT) disintegrating tablet 4 mgJump to med 4 mg, Oral, Every 8 hours PRN, nausea, vomiting, Starting on Tue04/15/25 at 0132, 1st Line. If inadequate response within 60 minutes, proceed to next-line agent or contact provider if no further options ordered. Patient should allow tablet to dissolve on tongue. Do not remove from blister pack until just before administering. Or ondansetron (Zofran) injection 4 mgJump to med 4 mg, IntraVENous, Every 6 hours PRN, nausea, vomiting, Starting on Tue04/15/25 at 0132, 1st Line. Give IV if patient is unable to take orally. If inadequate response within 60 minutes, proceed to next-line agent or contact provider if no further options ordered. Care Teams (unrecognized sec tion and content) Neck[employer] Centralizing Machine Operator Relationship Specialty Start Date End Date Aishwarya Ivory MD [address] [place] [address] PCP - General 01/22/14 Neck[employer] Centralizing Machine Operator Relationship Specialty Start Date End Date Aishwarya Ivory MD [address] [place] [id number] PCP - General 01/22/14 Necktie Centralizing Machine Operator Relationship Specialty Start Date End Date Aishwarya Ivory MD [address] [place] [id number] PCP - General 01/22/14 Necktie Centralizing Machine Operator Relationship Specialty Start [place] [address] [place] [address] PCP - General 01/22/14 FOR RECORDS PERTAINING TO PATIENTS WHO ARE OR HAVE BEEN ENROLLED IN A CHEMICAL DEPENDENCY/SUBSTANCEABUSE PROGRAM, SOME INFORMATION MAY BE OMITTED. This clinical summary was aggregated from multiple sources. Caution should be exercised in using it in the provision of clinical care. This summary normalizes information from multiple sources, and as a consequence, information in this document may materially change the coding, format and clinical context of patient data. In addition, data may be omitted in some cases. CLINICAL DECISIONS SHOULD BE BASED ON THE PRIMARY CLINICAL RECORDS. [facility]. provides no warranty or guarantee of the accuracy or completeness of information in this document.
[2025-05-18 18:46] LABS: Hematocrit 41.1 % (37-47); Hemoglobin 13.9 g/dL (12.0-15.0); Immature Granulocytes Count 0.020 X10^3/uL (0.0-0.0); Mean Corp Hgb Conc 33.8 g/dL (32-36); Mean Corpuscular Volume 97.9 fL (81-99); Mean Platelet Vol. 9.6 fl (6.2-12.0); NRBC Flagged by Analyzer 0 % (0-5); Platelet Count 257 K/mm3 (150-450); RBC Distribution Width CV 13.0 % (11.6-14.6); RBC Distribution Width SD 46.9 fl (35.1-43.9); Red Blood Count 4.20 M/mm3 (4.2-5.4); White Blood Count 10.3 K/mm3 (4.4-11.0)
[2025-05-18 19:01] LABS: Internal QC Validated? YES +Cl - CLEAR BKGD; Pregnancy, Serum, hCG Quali. NEGATIVE Negative; Record Kit Lot#, Serum Preg. 962302
[2025-05-18 19:10] LABS: Anion Gap 11 (5-15); BUN 12 mg/dL (4-19); BUN/Creat Ratio 17.7 RATIO (10-20); Calcium,Total 8.6 mg/dL (7.6-11.0); Carbon Dioxide 25.2 mmol/L (21.0-32.0); Chloride 104 mmol/L (98-108); Estimated Creatinine Clearance 113.36 ml/min (50-250); Glucose 109 mg/dL (70-99); Potassium 3.6 mmol/L (3.3-5.1)
[2025-05-18 19:17] LABS: Alcohol, Blood (Medical)-Serum < 10.1 mg/dL (<=10.0)
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
--- OUTSIDE RECORDS SUMMARY | 2025-05-18 20:25 | XMS RPT_ITS | CCD ---
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 Name Role Phone WESLEY BELTRAN Unavailable Unavailable [...] acetaminophen / HYDROcodone; Translations: [VICODIN] Drug Allergy [facility] Repository (1 source) cefadroxil; Translations: [DURICEF] Drug Allergy [facility] Repository (12 sources) Cefadroxil; Translations: [CEFADROXIL] Drug Allergy 08-31-2016 Camille AGUIRRE Work Phone: (2 sources) Cefadroxil; Translations: [cefadroxil hydrate] Drug Allergy 03-23-2022 [facility] Repository Medications Current Medications Medication Drug Class(es) Dates Sig (Normalized) Sig (Original) [id number] 200 actuat albuterol 0.09 mg/actuat metered dose [...] 1245, For 1 dose polyethylene glycol 3350 84451 mg powder for oral solution (2 sources) [...] up appointment today with Tal Davila per [facility]. Unable to contact patient. Normal [facility] [id number] Unable to contact patient for pulmonary call [facility] 04-15-2025 30 Problem: Pain - Adul t [...] and maintained or improved Outcome: Progressing Normal [facility] 30 Problem: Pain - Adul t Goal: Verbalizes/displays adequate comfort level or baseline comfort level Outcome: Progressing Problem: Safety - Adult Goal: Free from fall injury Outcome: Progressing Problem: Discharge Planning Goal: Discharge to home or other facility with appropriate resources Outcome: Progressing Problem: Chronic Conditions and Co-morbidities Goal: Patient's chronic conditions and co-morbidity symptoms are monitored and maintained or improved Outcome: Progressing [facility] 04-15-2025 36 Opened in error Normal [facility] BLOOD GAS, VENOUSon 04-15-20 25 AMOUNT OF OXYGEN Normal [facility] Comment on above: Result Comment: MAI Ho COMMENTS: Assessment of oxygenation is best done with an arterial blood gas determination. Reference ranges for pO2, bicarbonate, and base excess are for mixed venous blood. Specimens drawn from a peripheral vein will often have higher values. Performed By: #### L [id number] #### Histologist: CALE LEON ([id number]) [facility] (SWRLAB) [address] [place] [address] Base excess Calc (BldV) [Moles/Vol] 0.3 mmol/L Normal -3.0-3.0 [facility] Comment on above: Performed By: #### L [id number] #### Histologist: CALE LEON ([id number]) [facility] ZORAIDA [facility]IT[facility] (SWRLAB) [address] [place] [address] CO2 [Moles/Vol] 26.1 mmol/L Normal 24.0-28.0 [facility] Comment on above: Performed By: #### L [id number] #### Histologist: CALE LEON ([id number]) [facility] (SWRLAB) [address] [place] [address] HCO3 (Bld) [Moles/Vol] 24.8 mmol/L Normal 23.0-27.0 [facility] Comment on above: Performed By: #### L [id number] #### Histologist: CALE LEON ([id number]) [facility] (SWRLAB) [address] [place] [address] Hemoglobin (Bld) [Mass/Vol] 14.7 g/dL Normal Screen only [facility] Comment on above: Performed By: #### L [id number] #### Histologist: CALE LEON ([id number]) [facility] (SWRLAB) [address] [place] [address] OXYGEN (MM HG) IN VENOUS BLOOD 42.0 mm Hg Normal [facility] Comment on above: Performed By: #### L [id number] #### Histologist: CALE LEON ([id number]) [facility] RODRIGUE[facility] (SWRLAB) [address] [place] [address] OXYGEN SATURATION (%) IN VENOUS BLOOD 76.8 % Normal [facility] Comment on above: Performed By: #### L [id number] #### Histologist: CALE LEON ([id number]) [facility] (SWRLAB) [address] [place] [address] PCO2, HANS 39.8 mm Hg Low 40.0-55.0 [facility] Comment on above: Performed By: #### L [id number] #### Histologist: CALE LEON ([id number]) [facility] (SWRL[facility]) [address] [place] [address] PH VENOUS 7.413 Normal 7.330-7.430 [facility] Comment on above: Performed By: #### L [id number] #### Histologist: CALE LEON ([id number]) [facility] (SWRLAB) [address] [place] [address] SOURCE OF OXYGEN None (Room Air) Normal [facility] Comment on above: Performed By: #### L [id number] #### Histologist: CALE LEON ([id number]) [facility] (SWRLAB) [address] [place] [address] Consulton 04-15-2025 Consult - Attestation signed by [...] patient signed out AMA Giancarlo Yi MD [facility] [place] Pulmonary Medicine [facility] [place] [address] [id number] 1990 Date of Admission - 04/14/2025 [...] 6" (1.6 (more content not included)... Normal [facility] ECG 12-LEADon 04-15-2025 ECG 12-LEAD IMPRESSION: Sinus tachycardia Borderline T wave abnormalities Compared to ECG 07/05/20 No significant change Electronically Signed On 04-15-2025 01:28:20 EDT by Vincent Huitron Normal [facility] Laboratory - Chemistry and C hemistry - challengeon 04-15-2025 Procalcitonin [Mass/Vol] 0.02 ng/mL NINF - 0.07 ng/mL [facility] Laboratory - Chemistry and C hemistry - challengeOrdered By: Mechelle Burnett on 04-15-2025 Base excess Calc (BldV) [Moles/Vol] 0.3 mmol/L -3.0 - 3.0 mmol/L [facility] CO2 (BldV) [Partial pressure] 39.8 mm[Hg] Low [facility] CO2 [Moles/Vol] 26.1 mmol/L 24.0 - 28.0 mmol/L [facility] HCO3 (Bld) [Moles/Vol] 24.8 mmol/L 23.0 - 27.0 mmol/L [facility] Oxygen (BldV) [Partial pressure] 42 mm[Hg] mm Hg [facility] pH (BldV) 7.413 [pH] 7.330 - 7.430 [facility] Laboratory - Hematology and Cell countsOrdered By: Mechelle Burnett on 04-15-2025 Hemoglobin (Bld) [Mass/Vol] 14.7 g/dL 7.0 g/dl [facility] No Panel Informationon 04-15 P Paulina 81 degrees [facility] ID Interval 146 ms [facility] QRS Paulina 77 degrees [facility] QRSD Interval 90 ms [facility] QT Interval 347 ms [facility] QTC Interval 449 ms [facility] T Wave Paulina 15 degrees [facility] Sinus tachycardia Borderline T wave abnormalities Compared to ECG 07/05/20 No significant change Electronically Signed On 04-15-2025 01:28:20 EDT by Vincent Huitron CV Vincent Novak D O - 04/15/2025 IMPRESSION: Sinus tachycardia Borderline T wave abnormalities Compared to ECG 07/05/20 No significant change Electronically Signed On 04-15-2025 01:28:20 EDT by Vincent Huitron [facility] No Panel InformationOrdered By: Mechelle Burnett on 04-15-2025 Amount Of Oxygen [facility] alth Interpretation and review of laboratory results Abnormal [facility] Source Of Oxygen None (Room Air) [facility] Assessment of oxygenation is best done with an arterial blood gas determination. Reference ranges for pO2, bicarbonate, and base excess are for mixed venous blood. Specimens drawn from a peripheral vein will often have higher values. [facility] Nursing Noteon 04-15-2025 Nursing Note Patient stated she wants to be discharged. Patient stated " we are not doing anything for her" patient educated on iv solumedrol, antibiotics, and breathing treatments. and Dr. Quinton gomez was notified via secure chat. Patient not to be discharged. Patient electing to leave [place]. AMA form signed. Patient educated on why she should stay. Prescriptions sent to [facility] in [place] and patient notified of follow up with Tal Davila CNP in two days. Wrote out their office info and supplied to patient. Iv removed at this time, no complications noted. 1550- patient leaving [place] at this time Normal [facility] Nursing Note Patient took telemetry and pulse oximeter off and stated "My head is pounding and I ripped everything off." MD notified. Normal [facility] Nursing Note Fluids paused to promote rest in patient. Patient refusing to keep arm straight, causing fluids to alarm every 1-2 minutes. Patient educated on keeping arm straight 5x. MD notified. Normal [facility] Nursing Note Patient calls RN to room [...] bed and is 97% on RA. Normal [facility] Nursing Note Morning labs deferre d to 04/16 because labs just drawn at [place] ED at 1999 on 04/14. agreeable. Normal [facility] Procalcitonin [Mass/Vol]on 0 04-15-2025 Interpretation and review of laboratory results Normal [facility] PCT <0.50 = Low risk of severe sepsis and/or septic shock. PCT >2.00 = High risk of severe sepsis and/or septic shock. [facility] Progress Noteon 04-15-2025 Progress Note Carine is a 35-year-old female with history of anxiety, asthma, multiple fractures before, history of blood clots presented to emergency room with shortness of breath. She initially presented [place] ED, found to be asthma exacerbation, stabilized on 2 L of nasal cannula, patient has history of smoking, has not used smoking for several days. Patient transferred to [facility]. Admitted for further evaluation and treatment. Respiratory [...] H&P Total time spent: 15.5 minutes Normal [facility] Progress Note Interim note: 0 644 I [...] as needed. Jose L Foote MD Normal [facility] Respiratory pathogens DNA an d RNA panel DAJA+non-probe (Nph)on 04-15-2025 Adenovirus Not detected Not Detected [facility] B. pertussis DNA DAJA+probe Ql (Unsp spec) Not detected Not Detected [facility] Bordetella parapertussis Not detected Not Detected [facility] Chlamydia pneumoniae Not detected Not Detected [facility] Coronavirus 229E Not detected Not Detected [facility] Coronavirus HKU1 Not detected Not Detected [facility] Coronavirus NL63 Not detected Not Detected [facility] Coronavirus OC43 Not detected Not Detected [facility] FLUAV RNA DAJA+non-probe Ql (Nph) Not detected Not Detected [facility] FLUBV RNA DAJA+non-probe Ql (Nph) Not detected Not Detected [facility] Human Metapneumovirus Not detected Not Detected [facility] Human Rhinovirus/Enterovirus Not detected Not Detected [facility] Interpretation and review of laboratory results Normal [facility] Mycoplasma pneumoniae Not detected Not Detected [facility] Parainfluenza 1 Not detected Not Detected [facility] Parainfluenza 2 Not detected Not Detected [facility] Parainfluenza 3 Not detected Not Detected [facility] Parainfluenza 4 Not detected Not Detected [facility] Respiratory Syncytial Virus Not detected Not Detected [facility] SARS-CoV-2 (COVID-19) RNA DAJA+non-probe Ql (Nph) Not detected Not Detected [facility] Methodology: Multiplex PCR [facility] Vital signson 04-15-2025 Heart rate 100 /min bpm [facility] Vital signsOrdered By: Antonia Burnett on 04-15-2025 Oxygen saturation in Venous blood 76.8 % [facility] 30on 04-14-2025 30 Called by zoraida ED [...] , continue bipap. Admit to t3 Normal [facility] BASIC METABOLIC PANELon 06-11 25-2024 Anion gap [Moles/Vol] 12 mmol/L Normal 3-13 [facility] Comment on above: Performed By: #### L [id number] #### Histologist: CALE LEON ([id number]) [facility] (SWRLAB) [address] [place] [address] [place] Calcium [Mass/Vol] 9.0 mg/dL Normal 8.4-10.2 [facility] Comment on above: Performed By: #### L [id number] #### Histologist: CALE LEON ([id number]) [facility]AIDA [facility] (SWRLAB) [address] [place] [address] [place] Chloride [Moles/Vol] 104 mmol/L Normal 98-107 [facility] Comment on above: Performed By: #### L [id number] #### Histologist: CALE LEON ([id number]) [facility]IDA [facility] (SWRLAB) [address] [place] [address] [place] CO2 [Moles/Vol] 24 mmol/L Normal 22-29 [facility] Comment on above: Performed By: #### L [id number] #### Histologist: CALE LEON ([id number]) [facility] ZORAIDA RITTMAN (SWRLAB) [address] [place] [address] [place] Creatinine [Mass/Vol] 0.67 mg/dL Normal 0.57-1.11 [facility] Comment on above: Performed By: #### L [id number] #### Histologist: CALE LEON ([id number]) [facility] (SWRLAB) [address] GLOMERULAR FILTRATION RATE ML/MIN/1.73 SQ M.PREDICTED >90.0 Normal >60.0 [facility] Comment on above: Result Comment: Calc ulation based on the Chronic Kidney Disease Epidemiology Collaboration (CKD-EPI) equation refit without adjustment for race Performed By: #### L [id number] #### Histologist: CALE LEON ([id number]) [facility] (SWRLAB) [address] [place] [address] Glucose [Mass/Vol] 119 mg/dL High 74-100 [facility] Comment on above: Performed By: #### L [id number] #### Histologist: CALE LEON ([id number]) [facility] [address] [place] [address] Potassium [Moles/Vol] 3.9 mmol/L Normal 3.5-5.1 [facility] Comment on above: Result Comment: [facility] potassium values may be up to 0.5 mmol/L lower than serum values. Performed By: #### L [id number] #### Histologist: CALE LEON ([id number]) [facility] (SWRLAB) [address] [place] [address] Sodium [Moles/Vol] 140 mmol/L Normal 136-145 [facility] Comment on above: Performed By: #### L [id number] #### Histologist: CALE LEON ([id number]) [facility] (SWRLAB) [address] [place] [address] [place] Urea nitrogen [Mass/Vol] 9 mg/dL Normal 8-21 [facility] Comment on above: Performed By: #### L [id number] #### Histologist: CALE LEON ([id number]) [facility] (SWRLAB) [address] [place] [address] [place] Basic metabolic 1998 panelon 04-14-2025 Anion gap [Moles/Vol] 12 mmol/L 3 - 13 mmol/L [facility] Calcium [Mass/Vol] 9 mg/dL 8.4 - 10. 2 mg/dL [facility] Chloride [Moles/Vol] 104 mmol/L 98 - 10 7 mmol/L [facility] CO2 [Moles/Vol] 24 mmol/L 22 - 29 mmol/L [facility] Creatinine [Mass/Vol] 0.67 mg/dL 0.57 - 1.11 mg/dL [facility] GFR/1.73 sq M.predicted (S/P/Bld) [Vol rate/Area] - PINF [facility] Comment on above: Calculation based on the Chronic Kidney Disease Epidemiology Collaboration (CKD-EPI) equation refit without adjustment for race Glucose [Mass/Vol] 119 mg/dL High 74 - 100 mg/dL [facility] Interpretation and review of laboratory results Abnormal [facility] Potassium [Moles/Vol] 3.9 mmol/L 3.5 - 5.1 mmol/L [facility] Comment on above: Plasma potassium phillip ues may be up to 0.5 mmol/L lower than serum values. Sodium [Moles/Vol] 140 mmol/L 136 - 145 mmol/L [facility] Urea nitrogen [Mass/Vol] 9 mg/dL 8 - 21 mg/dL [facility] CBC W Auto Differential pane l (Bld)on 04-14-2025 Basophils (Bld) [#/Vol] 0 10*3/uL 0.0 - 0.2 10*3/uL [facility] Basophils/100 WBC (Bld) 0.2 % 0.0 - 2.0 % [facility] Eosinophils (Bld) [#/Vol] 0.3 10*3/uL 0.0 - 0.5 10*3/uL [facility] Eosinophils/100 WBC (Bld) 2.6 % 0.0 - 6.0 % [facility] Erythrocyte distribution width (RBC) [Ratio] 12.7 % 11.5 - 15.0 % [facility] Hematocrit (Bld) [Volume fraction] 41 % 35.0 - 47.0 % [facility] Hemoglobin (Bld) [Mass/Vol] 14.2 g/dL 11.7 - 16.0 g/dL [facility] Immature granulocytes (Bld) [#/Vol] 0.1 10*3/uL High NINF - 0.1 10*3/uL [facility] [employer] Immature granulocytes/100 WBC (Bld) 0.4 % 0.0 - 2.0 % [facility] Interpretation and review of laboratory results Abnormal [facility] Lymphocytes (Bld) [#/Vol] 1.1 10*3/uL 1.0 - 4.3 10*3/uL [facility] Lymphocytes/100 WBC (Bld) 8.5 % Low 15.0 - 45.0 % [facility] MCH (RBC) [Entitic mass] 33.2 pg 26.0 - 34.0 pg [facility] MCHC (RBC) [Mass/Vol] 34.6 % 30.5 - 36.0 % [facility] MCV (RBC) [Entitic vol] 95.8 fL 77.0 - 99.0 fL [facility] Monocytes (Bld) [#/Vol] 0.6 10*3/uL 0.0 - 0.9 10*3/uL [facility] Monocytes/100 WBC (Bld) 4.3 % Low 5.0 - 13.0 % [facility] Neutrophils (Bld) [#/Vol] 10.9 10*3/uL High 1.8 - 7.5 10*3/uL [facility] Neutrophils/100 WBC (Bld) 84 % High 38.0 - 82.0 % [facility] Nucleated RBC/100 WBC (Bld) [Ratio] 0 % [facility] Platelet mean volume (Bld) [Entitic vol] 9.9 fL 9.0 - 12.7 fL [facility] Comment on above: MPV is a calculated measurement using platelet volume ratio Platelets (Bld) [#/Vol] 230 10*3/uL 140 - 440 10*3/uL [facility] RBC (Bld) [#/Vol] 4.28 10*6/uL 3.80 - 5.2 0 10*6/uL [facility] WBC (Bld) [#/Vol] 13 10*3/uL High 3.6 - 10.7 10*3/uL [facility] CBC WITH AUTO DIFFERENTIALon 04-14-2025 Basophils (Bld) [#/Vol] 0.0 10*3/uL Normal 0.0-0.2 [facility] Comment on above: Performed By: #### L [id number] #### Histologist: CALE LEON ([id number]) [facility]ITTMAN (SWRLAB) [address] [place] [address] [place] Basophils/100 WBC (Bld) 0.2 % Normal 0.0-2.0 [facility] Comment on above: Performed By: #### L [id number] #### Histologist: CALE LEON ([id number]) [facility] (SWRLAB) [address] [place] [address] Eosinophils (Bld) [#/Vol] 0.3 10*3/uL Normal 0.0-0.5 [facility] Comment on above: Performed By: #### L [id number] #### Histologist: CALE LEON ([id number]) [facility] (SWRLAB) [address] [place] [address] [place] Eosinophils/100 WBC (Bld) 2.6 % Normal 0.0-6.0 [facility] Comment on above: Performed By: #### L [id number] #### Histologist: CALE LEON ([id number]) [facility] (SWRLAB) [address] [place] [address] Erythrocyte distribution width (RBC) [Ratio] 12.7 % Normal 11.5-15.0 [facility] Comment on above: Performed By: #### L [id number] #### Histologist: CALE LEON ([id number]) [facility] (SWRLAB) [address] [place] [address] Hematocrit (Bld) [Volume fraction] 41.0 % Normal 35.0-47.0 [facility] Comment on above: Performed By: #### L [id number] #### Histologist: CALE LEON ([id number]) [facility] (SWRLAB) [address] [place] [address] Hemoglobin (Bld) [Mass/Vol] 14.2 g/dL Normal 11.7-16.0 [facility] Comment on above: Performed By: #### L [id number] #### Histologist: CALE LEON ([id number]) [facility] ([facility]) [address] [place] [address] IMMATURE GRANS % 0.4 % Normal 0.0-2.0 [facility] Comment on above: Performed By: #### L [id number] #### Histologist: CALE LEON ([id number]) [facility] (SWRLAB) [address] [place] [address] IMMATURE GRANS ABSOLUTE 0.1 10*3/uL High <0.1 [facility] Comment on above: Performed By: #### L [id number] #### Histologist: CALE LEON ([id number]) [facility] (SWRLAB) [address] [place] [address] Lymphocytes (Bld) [#/Vol] 1.1 10*3/uL Normal 1.0-4.3 [facility] Comment on above: Performed By: #### L [id number] #### Histologist: CALE LEON ([id number]) [facility] (SWRLAB) [address] [place] [address] Lymphocytes/100 WBC (Bld) 8.5 % Low 15.0-45.0 [facility] Comment on above: Performed By: #### L [id number] #### Histologist: CALE LEON ([id number]) [facility] (SWRLAB) [address] [place] [address] MCH (RBC) [Entitic mass] 33.2 pg Normal 26.0-34.0 [facility] Comment on above: Performed By: #### L [id number] #### Histologist: CALE LEON ([id number]) [facility] (SWRLAB) [address] MCHC 34.6 % Normal 30.5-36.0 [facility] Comment on above: Performed By: #### L [id number] #### Histologist: CALE LEON ([id number]) [facility] (SWRLAB) [address] MCV (RBC) [Entitic vol] 95.8 fL Normal 77.0-99.0 [facility] Comment on above: Performed By: #### L [id number] #### Histologist: CALE LEON ([id number]) [facility] (SWRLAB) [address] [place] [address] Monocytes (Bld) [#/Vol] 0.6 10*3/uL Normal 0.0-0.9 [facility] Comment on above: Performed By: #### L [id number] #### Histologist: CALE LEON ([id number]) [facility] (SWRLAB) [address] [place] [address] [place] Monocytes/100 WBC (Bld) 4.3 % Low 5.0-13.0 [facility] Comment on above: Performed By: #### L [id number] #### Histologist: CALE LEON ([id number]) [facility] (SWRLAB) [address] [place] [address] [place] NEUTROPHILS ABSOLUTE 10.9 10*3/uL High 1.8-7.5 [facility] Comment on above: Performed By: #### L [id number] #### Histologist: CALE LEON ([id number]) [facility] (SWRLAB) [address] [place] [address] [place] Neutrophils/100 WBC (Bld) 84.0 % High 38.0-82.0 [facility] Comment on above: Performed By: #### L [id number] #### Histologist: CALE LEON ([id number]) [facility] (SWRLAB) [place] [address] [place] NRBC 0.0 /100 WBCs Normal 0.0-2.0 [facility] Comment on above: Performed By: #### L [id number] #### Histologist: CALE LEON ([id number]) [facility] (SWRLAB) [address] [place] [address] Platelet mean volume (Bld) [Entitic vol] 9.9 fL Normal 9.0-12.7 [facility] Comment on above: Result Comment: MPV is a calculated measurement using platelet volume ratio Performed By: #### L [id number] #### Histologist: CALE LEON ([id number]) [facility] ([facility]) [address] [place] [address] Platelets (Bld) [#/Vol] 230 10*3/uL Normal 140-440 [facility] Comment on above: Performed By: #### L [id number] #### Histologist: CALE LEON ([id number]) [facility] (SW[facility]) [address] [place] [address] [place] RBC (Bld) [#/Vol] 4.28 10*6/uL Normal 3.80-5.20 [facility] Comment on above: Performed By: #### L [id number] #### Histologist: CALE LEON ([id number]) [facility] ([facility]) [address] [place] [address] WBC (Bld) [#/Vol] 13.0 10*3/uL High 3.6-10.7 [facility] Comment on above: Performed By: #### L [id number] #### Histologist: CALE LEON ([id number]) [facility] ([facility]) [address] [place] [address] [place] D-DIMER,QUANTITATIVEon 04-14 D-DIMER, INNOVANCE 0.31 mg/L Normal <0.50 [facility] Comment on above: Result Comment: MAI Ho COMMENTS: Innovance D-Dimer values of <0.50 mg/L FEU can be used in combination with a pre-test probability model (e.g. Well's) to exclude pulmonary embolism (PE) disease, as well as an aid in the diagnosis of deep vein thrombosis (DVT). Performed By: #### L [id number] ####Histologist: CALE LEON ([id number])[facility] (SWRL[facility])[address] [place] [address] ED Nursing Noteon 04-14-2025 ED Nursing Note Pt reports slight improvement after breathing treatment but has continued wheezing. Normal [facility] ED Nursing Note Pt to room 9 with c/ o shortness of breath and wheezing x 2 days. Pt reports she has a history of asthma with no improvement with use of inhalers. Normal [facility] ED Provider Noteon ED Provider Note Emergency Department Encounter [facility] Patient: Carine Barba : 1990 Date of Evaluation: 04/14/2025 ED Provider: Vincent Huitron DO Chief Complaint Chief Complaint Patient presents with Shortness of Breath KAW Carine Barba is a 35 y.o. female [...] 347 ms QTC Interval 449 ms P Paulina 81 degrees QRS Paulina 77 degrees T Wave Paulina 15 degrees ID Interval 146 ms D-dimer, quantitative Collection Time: 04/14/25 8:56 PM (more content not included)... Normal [employer] [facility] Fibrin D-dimer FEU (PPP) [Ma ss/Vol]on 04-14-2025 Interpretation and review of laboratory results Normal [facility] D-Dimer values of <0.50 mg/L FEU can be used in combination with a pre-test probability model (e.g. Well's) to exclude pulmonary embolism (PE) disease, as well as an aid in the diagnosis of deep vein thrombosis (DVT). [employer] HCG QUANTITATIVE BLOODon HCG QUANTITATIVE <2.5 Normal Females <5 [facility] Comment on above: Result Comment: [...] gestational trophoblastic disease. Performed By: #### L [id number], [id number], [id number] ####Histologist: CALE LEON ([id number])[facility] (SWRLAB)[address] [place] [address] HIGH SENSITIVITY TROPONIN, S ERIAL BASELINEon 04-14-2025 TROPONIN HS SERIAL BASELINE <3 Normal <=14 [facility] Comment on above: Result Comment: In i ndividuals presenting with symptoms > 2h, a baseline troponin <= 5 ng/L suggests acute cardiac injury is unlikely and further serial testing is generally not indicated. Performed By: #### L [id number] #### Histologist: CALE LEON ([id number]) [facility] (SWRLAB) [address] [place] [address] HIGH SENSITIVITY TROPONIN, S ERIAL, SECOND TESTon 04-14-2025 2H TROPONIN HS (SERIAL 2ND TROPONIN) <3 Normal <=14 [facility] Comment on above: Result Comment: 2h t roponin (2nd troponin) samples collected between 1h 40 min and 2h and 20 min of the baseline collection time can be utilized to interpret delta troponins as per [facility] algorithms. Samples collected outside this timeframe need to be interpreted clinically. Delta value was unable to be calculated as both baseline and serial troponin tests were below the level of quantitation. As both baseline and 2h troponin values are below the level of quantitation, acute cardiac injury is unlikely. Performed By: #### L [id number] #### Histologist: CALE LEON ([id number]) [facility] [employer] (SWRLAB) [address] [place] [address] Laboratory - Chemistry and C hemistry - challengeon 04-14-2025 HCG.beta subunit Qn Females <5 mIU/mL [facility] Laboratory - Coagulationon 0 04-14-2025 Fibrin D-dimer FEU (PPP) [Mass/Vol] 0.31 mg/L NINF - 0.50 mg/L [facility] Laboratory - Microbiology an d Antimicrobial susceptibilityon 04-14-2025 FLUAV RNA DAJA+probe Ql (Resp) Not detected Not Detected [facility] FLUBV RNA DAJA+probe Ql (Resp) Not detected Not Detected [facility] RSV RNA DAJA+probe Ql (Resp) Not detected Not Detected [facility] SARS-CoV-2 (COVID-19) RNA DAJA+probe Ql (Resp) Not detected Not Detected [facility] SARS-CoV-2 (COVID-19) RNA DAJA+probe Ql (Unsp spec) Methodology: real-time, RT-PCR The SARS-CoV-2, Flu A/B, and RSV Combo assay is intended for in vitro diagnostic use under the FDA Emergency Use Authorization (EUA). This test has not been FDA cleared or approved. In compliance with this authorization, please visit www.fda.gov/media/478 877/download or www.fda.gov/media/006 856/download to access the applicable information sheets. [employer] No Panel Informationon 04-14 2h Troponin HS (Serial 2nd Troponin) ng/L NINF - 14 ng/L [facility] Comment on above: 2h troponin (2nd tro ponin) samples collected between 1h 40 min and 2h and 20 min of the baseline collection time can be utilized to interpret delta troponins as per [facility] algorithms. Samples collected outside this timeframe need to be interpreted clinically. Delta value was unable to be calculated as both baseline and serial troponin tests were below the level of quantitation. As both baseline and 2h troponin values are below the level of quantitation, acute cardiac injury is unlikely. Interpretation and review of laboratory results Normal [facility] Values in should double every 2 to [...] or monitor tumors or gestational trophoblastic disease. [facility] Interpretation and review of laboratory results Normal [facility] Troponin HS Serial Baseline ng/L NINF - 14 ng/L [facility] Comment on above: In individuals prese nting with symptoms > 2h, a baseline troponin <= 5 ng/L suggests acute cardiac injury is unlikely and further serial testing is generally not indicated. [facility] PROCALCITONIN TESTon 025 PROCALCITONIN 0.02 ng/mL Normal <0.07 [facility] Comment on above: Result Comment: ORDE R COMMENTS: PCT <0.50 = Low risk of severe sepsis and/or septic shock. PCT >2.00 = High risk of severe sepsis and/or septic shock. Performed By: #### L [id number] #### Histologist: CALE LEON ([id number]) [facility] (SWRLAB[address] RESPIRATORY PATHOGENS PANEL BY PCRon 04-14-2025 [...] Detected ORDER COMMENTS: Methodology: Multiplex PCR Normal [facility] Comment on above: Performed By: #### L [id number] #### Histologist: CALE LEON ([id number]) [facility] ([facility]) [address] [place] [address] SARS-COV-2, FLU A/B, AND RSV COMBOon 04-14-2025 [...] In compliance with this authorization, please visit www.fda.gov/media/839 187/download or www.fda.gov/media/111 156/download to access the applicable information sheets. [facility] Comment on above: Performed By: #### L [id number] #### Histologist: CALE LEON ([id number]) [facility] [address] [place] [address] SARS-CoV-2, Flu A/B, and RSV Comboon 04-14-2025 Interpretation and review of laboratory results Normal [facility] XR Chest Single viewon 04-14 No radiographic acute cardiopulmonary process. Report Dictated on Electronically Signed By: Nubia Olivera MD Electronically Signed Date/Time: 04/14/2025 7:59 PM EDT [facility] Patient Name: CARINE BARBA : 1990 Exam Date/Time: 04/14/2025 19:36 Procedure: XR CHEST 1 VIEW Ordering Provider: HUITRON DUSTIN Reason For Exam: shortness of breath INDICATION: Shortness of breath. VIEWS: Chest AP portable-one image COMPARISON: 01/08/2025; CT chest 12/31/2013 FINDINGS: The trachea is midline. The heart is not enlarged. There is no confluent consolidation. Left clavicle screw and plate fixation. [facility] Nubia Olivera MD - 04/14/2025 Patient [...] Electronically Signed Date/Time: 04/14/2025 7:59 PM EDT [facility] Radiology Study observation (narrative) [facility] [employer] XR Chest Single viewOrdered By: Nubia Olivera on 04-14-2025 [employer] Work Phone: CBC W Auto Differential pane l (Bld)on 01-08-2025 Basophils (Bld) [#/Vol] 0.1 10*3/uL 0.0 - 0.2 10*3/uL [employer] Basophils/100 WBC (Bld) 0.3 % 0.0 - 2.0 % [facility] [employer] Eosinophils (Bld) [#/Vol] 0.5 10*3/uL 0.0 - 0.5 10*3/uL [employer] Eosinophils/100 WBC (Bld) 2.7 % 0.0 - 6.0 % [facility] [employer] Erythrocyte distribution width (RBC) [Ratio] 13.2 % 11.5 - 15.0 % [employer] Hematocrit (Bld) [Volume fraction] 40.7 % 35.0 - 47.0 % [employer] Hemoglobin (Bld) [Mass/Vol] 13.8 g/dL 11.7 - 16.0 g/dL [facility] [employer] Immature granulocytes (Bld) [#/Vol] 0.1 10*3/uL High NINF - 0.1 10*3/uL [facility] [employer] Immature granulocytes/100 WBC (Bld) 0.4 % 0.0 - 2.0 % [facility] [employer] Interpretation and review of laboratory results Abnormal [facility] [employer] Lymphocytes (Bld) [#/Vol] 1.8 10*3/uL 1.0 - 4.3 10*3/uL [facility] Lymphocytes/100 WBC (Bld) 9.7 % Low 15.0 - 45.0 % [facility] MCH (RBC) [Entitic mass] 32.5 pg 26.0 - 34.0 pg [facility] MCHC (RBC) [Mass/Vol] 33.9 % 30.5 - 36.0 % [facility] MCV (RBC) [Entitic vol] 96 fL 77.0 - 99.0 fL [facility] Monocytes (Bld) [#/Vol] 0.9 10*3/uL 0.0 - 0.9 10*3/uL [facility] Monocytes/100 WBC (Bld) 4.8 % Low 5.0 - 13.0 % [facility] Neutrophils (Bld) [#/Vol] 14.8 10*3/uL High 1.8 - 7.5 10*3/uL [facility] Neutrophils/100 WBC (Bld) 82.1 % High 38.0 - 82.0 % [facility] Nucleated RBC/100 WBC (Bld) [Ratio] 0 % [facility] Platelet mean volume (Bld) [Entitic vol] 9.9 fL 9.0 - 12.7 fL [facility] Comment on above: MPV is a calculated measurement using platelet volume ratio Platelets (Bld) [#/Vol] 235 10*3/uL 140 - 440 10*3/uL [facility] RBC (Bld) [#/Vol] 4.24 10*6/uL 3.80 - 5.2 0 10*6/uL [facility] WBC (Bld) [#/Vol] 18.1 10*3/uL High 3.6 - 10.7 10*3/uL [facility] CBC WITH AUTO DIFFERENTIALon 01-08-2025 Basophils (Bld) [#/Vol] 0.1 10*3/uL Normal 0.0-0.2 [facility] Comment on above: Performed By: #### L [id number] #### Histologist: CALE LEON ([id number]) [facility] (RLAB) [address] [place] [address] Basophils/100 WBC (Bld) 0.3 % Normal 0.0-2.0 [facility] Comment on above: Performed By: #### L [id number] #### Histologist: CALE LEON ([id number]) [facility] (SW[facility]) [address] [place] [address] Eosinophils (Bld) [#/Vol] 0.5 10*3/uL Normal 0.0-0.5 [facility] Comment on above: Performed By: #### L [id number] #### Histologist: CALE LEON ([id number]) [facility] ([facility]) [address] [place] [address] Eosinophils/100 WBC (Bld) 2.7 % Normal 0.0-6.0 [facility] Comment on above: Performed By: #### L [id number] #### Histologist: CALE LEON ([id number]) [facility] ([facility]) [address] [place] [address] Erythrocyte distribution width (RBC) [Ratio] 13.2 % Normal 11.5-15.0 [facility] Comment on above: Performed By: #### L [id number] #### Histologist: CALE LEON ([id number]) [facility] ([facility]) [address] [place] [address] Hematocrit (Bld) [Volume fraction] 40.7 % Normal 35.0-47.0 [facility] Comment on above: Performed By: #### L [id number] #### Histologist: CALE LEON ([id number]) [facility] ([facility]) [address] [place] [address] Hemoglobin (Bld) [Mass/Vol] 13.8 g/dL Normal 11.7-16.0 [facility] Comment on above: Performed By: #### L [id number] #### Histologist: CALE LEON ([id number]) [facility] ([facility]) [address] [place] [address] IMMATURE GRANS % 0.4 % Normal 0.0-2.0 [facility] Comment on above: Performed By: #### L [id number] #### Histologist: CALE LEON ([id number]) [facility] ([facility]) [address] [place] [address] IMMATURE GRANS ABSOLUTE 0.1 10*3/uL High <0.1 [facility] Comment on above: Performed By: #### L [id number] #### Histologist: CALE LEON ([id number]) [facility] ([facility]) [address] [place] [address] Lymphocytes (Bld) [#/Vol] 1.8 10*3/uL Normal 1.0-4.3 [facility] Comment on above: Performed By: #### L [id number] #### Histologist: CALE LEON ([id number]) [facility] ([facility]) [address] [place] [address] Lymphocytes/100 WBC (Bld) 9.7 % Low 15.0-45.0 [facility] Comment on above: Performed By: #### L [id number] #### Histologist: CALE LEON ([id number]) [facility] ([facility]) [address] [place] [address] MCH (RBC) [Entitic mass] 32.5 pg Normal 26.0-34.0 [facility] Comment on above: Performed By: #### L [id number] #### Histologist: CALE LEON ([id number]) [facility] ([facility]) [address] [place] [address] MCHC 33.9 % Normal 30.5-36.0 [facility] Comment on above: Performed By: #### L [id number] #### Histologist: CALE LEON ([id number]) [facility] ([facility]) [address] [place] [address] MCV (RBC) [Entitic vol] 96.0 fL Normal 77.0-99.0 [facility] Comment on above: Performed By: #### L [id number] #### Histologist: CALE LEON ([id number]) [facility] ([facility]) [address] [place] [address] Monocytes (Bld) [#/Vol] 0.9 10*3/uL Normal 0.0-0.9 [facility] Comment on above: Performed By: #### L [id number] #### Histologist: CALE LEON ([id number]) [facility] ([facility]) [address] [place] [address] [place] Monocytes/100 WBC (Bld) 4.8 % Low 5.0-13.0 [facility] Comment on above: Performed By: #### L [id number] #### Histologist: CALE LEON ([id number]) [facility] ([facility]) [address] [place] [address] [place] NEUTROPHILS ABSOLUTE 14.8 10*3/uL High 1.8-7.5 [facility] Comment on above: Performed By: #### L [id number] #### Histologist: CALE LEON ([id number]) [facility] ([facility]) [address] [place] [address] [place] Neutrophils/100 WBC (Bld) 82.1 % High 38.0-82.0 [facility] Comment on above: Performed By: #### L [id number] #### Histologist: CALE LEON ([id number]) [facility] ([facility]) [address] [place] [address] [place] NRBC 0.0 /100 WBCs Normal 0.0-2.0 [facility] Comment on above: Performed By: #### L [id number] #### Histologist: CALE LEON ([id number]) [facility] ([facility]) [address] Platelet mean volume (Bld) [Entitic vol] 9.9 fL Normal 9.0-12.7 [facility] Comment on above: Result Comment: MPV is a calculated measurement using platelet volume ratio Performed By: #### L [id number] #### Histologist: CALE LEON ([id number]) [facility] ([facility]) [address] [place] [address] Platelets (Bld) [#/Vol] 235 10*3/uL Normal 140-440 [facility] Comment on above: Performed By: #### L [id number] #### Histologist: CALE LEON ([id number]) [facility] ([facility]) [address] [place] [address] RBC (Bld) [#/Vol] 4.24 10*6/uL Normal 3.80-5.20 [facility] Comment on above: Performed By: #### L [id number] #### Histologist: CALE LEON ([id number]) [facility] ([facility]) [address] [place] [address] WBC (Bld) [#/Vol] 18.1 10*3/uL High 3.6-10.7 [facility] Comment on above: Performed By: #### L [id number] #### Histologist: CALE LEON ([id number]) [facility] ([facility]) [address] [place] [address] COMPREHENSIVE METABOLIC PANE [place] 01-08-2025 Albumin [Mass/Vol] 4.3 g/dL Normal 3.5-5.0 [facility] Comment on above: Performed By: #### L [id number] #### Histologist: CALE LEON ([id number]) [facility] ([facility]) [address] [place] [address] ALP [Catalytic activity/Vol] 62 U/L Normal 40-150 [facility] Comment on above: Performed By: #### L [id number] #### Histologist: CALE LEON ([id number]) [facility] ([facility]) [address] [place] [address] ALT [Catalytic activity/Vol] 11 U/L Normal <30 [facility] Comment on above: Performed By: #### L [id number] #### Histologist: CALE LEON ([id number]) [facility] ([facility]) [address] [place] [address] Anion gap [Moles/Vol] 7 mmol/L Normal 3-13 [facility] Comment on above: Performed By: #### L [id number] #### Histologist: CALE LEON ([id number]) [facility] ([facility]) [address] [place] [address] AST [Catalytic activity/Vol] 17 U/L Normal <34 [facility] Comment on above: Performed By: #### L [id number] #### Histologist: CALE LEON ([id number]) [facility] ([facility]) [address] [place] [address] Bilirubin [Mass/Vol] 0.6 mg/dL Normal <1.2 [facility] Comment on above: Performed By: #### L [id number] #### Histologist: CALE LEON ([id number]) [facility] ([facility]) [address] [place] [address] [place] Calcium [Mass/Vol] 8.8 mg/dL Normal 8.4-10.2 [facility] Comment on above: Performed By: #### L [id number] #### Histologist: CALE LEON ([id number]) [facility] ([facility]) [address] [place] [address] [place] Chloride [Moles/Vol] 107 mmol/L Normal 98-107 [facility] Comment on above: Performed By: #### L [id number] #### Histologist: CALE LEON ([id number]) [facility] ([facility]) [address] [place] [address] CO2 [Moles/Vol] 27 mmol/L Normal 22-29 [facility] Comment on above: Performed By: #### L [id number] #### Histologist: CALE LEON ([id number]) [facility] ([facility]) [address] [place] [address] Creatinine [Mass/Vol] 0.77 mg/dL Normal 0.57-1.11 [facility] Comment on above: Performed By: #### L [id number] #### Histologist: CALE LEON ([id number]) [facility] ([facility]) [address] [place] [address] GLOMERULAR FILTRATION RATE ML/MIN/1.73 SQ M.PREDICTED >90.0 Normal >60.0 [facility] Comment on above: Result Comment: Calc ulation based on the Chronic Kidney Disease Epidemiology Collaboration (CKD-EPI) equation refit without adjustment for race Performed By: #### L [id number] #### Histologist: CALE LEON ([id number]) [facility] ([facility]) [address] [place] [address] Glucose [Mass/Vol] 88 mg/dL Normal 74-100 [facility] Comment on above: Performed By: #### L [id number] #### Histologist: CALE LEON ([id number]) [facility] ([facility]) [address] [place] [address] [place] Potassium [Moles/Vol] 3.8 mmol/L Normal 3.5-5.1 [facility] Comment on above: Result Comment: [facility] potassium values may be up to 0.5 mmol/L lower than serum values. Performed By: #### L [id number] #### Histologist: CALE LEON ([id number]) [facility] ([facility]) [address] Protein [Mass/Vol] 6.9 g/dL Normal 6.4-8.3 [facility] Comment on above: Performed By: #### L [id number] #### Histologist: CALE LEON ([id number]) [facility] ([facility]) [address] Sodium [Moles/Vol] 141 mmol/L Normal 136-145 [facility] Comment on above: Performed By: #### L [id number] #### Histologist: CALE LEON ([id number]) [facility] ([facility]) [address] Urea nitrogen [Mass/Vol] 12 mg/dL Normal 8-21 [facility] Comment on above: Performed By: #### L [id number] #### Histologist: CALE LEON ([id number]) [facility] ([facility]) [address] Comprehensive metabolic 1998 panelon 01-08-2025 Albumin [Mass/Vol] 4.3 g/dL 3.5 - 5.0 g/dL [facility] ALP [Catalytic activity/Vol] 62 U/L 40 - 150 U/L [facility] ALT [Catalytic activity/Vol] 11 U/L NINF - 30 U/L [facility] Anion gap [Moles/Vol] 7 mmol/L 3 - 13 mmol/L [facility] AST [Catalytic activity/Vol] 17 U/L NINF - 34 U/L [facility] Bilirubin [Mass/Vol] 0.6 mg/dL NINF - 1.2 mg/dL [facility] Calcium [Mass/Vol] 8.8 mg/dL 8.4 - 10. 2 mg/dL [facility] Chloride [Moles/Vol] 107 mmol/L 98 - 10 7 mmol/L [facility] CO2 [Moles/Vol] 27 mmol/L 22 - 29 mmol/L [facility] Creatinine [Mass/Vol] 0.77 mg/dL 0.57 - 1.11 mg/dL [facility] GFR/1.73 sq M.predicted (S/P/Bld) [Vol rate/Area] - PINF [facility] Comment on above: Calculation based on the Chronic Kidney Disease Epidemiology Collaboration (CKD-EPI) equation refit without adjustment for race Glucose [Mass/Vol] 88 mg/dL 74 - 100 mg/dL [facility] Interpretation and review of laboratory results Normal [facility] Potassium [Moles/Vol] 3.8 mmol/L 3.5 - 5.1 mmol/L [facility] Comment on above: Plasma potassium phillip ues may be up to 0.5 mmol/L lower than serum values. Protein [Mass/Vol] 6.9 g/dL 6.4 - 8.3 g/dL [facility] Sodium [Moles/Vol] 141 mmol/L 136 - 145 mmol/L [facility] Urea nitrogen [Mass/Vol] 12 mg/dL 8 - 21 mg/dL [facility] ED Nursing Noteon 01-08-2025 ED Nursing Note Patient arrived via wheelchair to room 5 with male visitor. Patient complains of SOB since yesterday. Patient has hx of asthma and has been using her inhalers with no relief. Patient audibly wheezing. Patient states muscles in chest feel tight and it hurts to take a deep breath. Normal [facility] ED Provider Noteon ED Provider Note EMERGENCY [...] Insecurity: No Food Insecurity (10/18/2024) Received from [facility] Hunger Vital Sign ? Worried About Running Out of Food in the Last Year: Never true ? Ran Out of Food in the Last Year: Never true Transportation Needs: No Transportation Needs (10/18/2024) [facility] ? Lack of Transportation (Medical): No ? Lack of Transportation (Non-Medical): No Housing Stability: Unknown (10/18/2024) Received from [facility] Housing Stability Vital Sign ? Unable [...] Signed Date/Time: (more content not included)... Normal [facility] Laboratory - Microbiology an d Antimicrobial susceptibilityon 01-08-2025 FLUAV RNA DAJA+probe Ql (Resp) Not detected Not Detected [facility] FLUBV RNA DAJA+probe Ql (Resp) Not detected Not Detected [facility] RSV RNA DAJA+probe Ql (Resp) Not detected Not Detected [facility] SARS-CoV-2 (COVID-19) RNA DAJA+probe Ql (Resp) Not detected Not Detected [facility] SARS-CoV-2 (COVID-19) RNA DAJA+probe Ql (Unsp spec) Methodology: real-time, RT-PCR The SARS-CoV-2, Flu A/B, and RSV Combo assay is intended for in vitro diagnostic use under the FDA Emergency Use Authorization (EUA). This test has not been FDA cleared or approved. In compliance with this authorization, please visit www.fda.gov/media/785 435/download or www.fda.gov/media/198 802/download to access the applicable information sheets. [facility] SARS-COV-2, FLU A/B, AND RSV COMBOon 01-08-2025 [...] In compliance with this authorization, please visit www.fda.gov/media/789 435/download or www.[employer].gov/media/743 467/download to access the applicable information sheets. Normal [facility] Comment on above: Performed By: #### L [id number] #### Histologist: CALE LEON ([phone]) [facility] ([facility]) [address] [place] [address] SARS-CoV-2, Flu A/B, and RSV Comboon 01-08-2025 Interpretation and review of laboratory results Normal [facility] XR Chest Single viewon 01-08 No acute cardiopulmonary process identified. Report Dictated on Electronically Signed By: Damon Mccauley MD Electronically Signed Date/Time: 01/08/2025 2:40 AM [facility] RADIOLOGY SYSTEM [facility] 1990 [id number] Exam Date/Time: 01/08/2025 02:04 Procedure: XR CHEST [...] identified. ORIF of the left clavicle noted. [facility] Damon Mccauley MD - 01/08/2025 Patient Name: [facility]BA [facility] 1990 [id number] Exam Date/Time: 01/08/2025 02:04 Procedure: XR CHEST [...] Electronically Signed Date/Time: 01/08/2025 2:40 AM EDT [facility] [employer] Radiology Study observation (narrative) [facility] Chest Single viewOrdered By: Damon Mccauley on 01-08-2025 [facility] [employer] Work Phone: CBC panel Auto (Bld)on 10-20 Erythrocyte distribution width (RBC) [Ratio] 12.9 % Normal 11.5-15.0 [facility] Comment on above: Order Comment: Speci men Type: BLOOD SPECIMENOrdering Facility: [facility] Address: [address] [place] [address] Performed By: #### 5 8410-2 ####QUIROZ LABORATORYCLIA [id number] [address] STATES OF [facility] Hematocrit (Bld) [Volume fraction] 42.2 % Normal 36.0-46.0 [facility] Comment on above: Order Comment: Speci men Type: BLOOD SPECIMENOrdering Facility: [facility] Address: [address] [place] [address] Performed By: #### 5 8410-2 ####QUIROZ LABORATORYCLIA [id number] [address] Hemoglobin (Bld) [Mass/Vol] 13.8 g/dL Normal 11.5-15.5 [facility] Comment on above: Order Comment: Speci men Type: BLOOD SPECIMENOrdering Facility: [facility] Address: [address] [place] [address] Performed By: #### 5 8410-2 ####QUIROZ LABORATORYCLIA [id number] [address] MCH (RBC) [Entitic mass] 31.8 pg Normal 26.0-34.0 [facility] Comment on above: Order Comment: Speci men Type: BLOOD SPECIMENOrdering Facility: [facility] Address: [address] [place] [address] Performed By: #### 5 8410-2 ####QUIROZ LABORATORYCLIA [id number] [address] MCHC (RBC) [Mass/Vol] 32.7 g/dL Normal 30.5-36.0 [facility] Comment on above: Order Comment: Speci men Type: BLOOD SPECIMENOrdering Facility: [facility] Address: [address] [place] [address] Performed By: #### 5 8410-2 ####QUIROZ LABORATORYCLIA [id number] [address] MCV (RBC) [Entitic vol] 97.2 fL Normal 80.0-100.0 [facility] Comment on above: Order Comment: Speci men Type: BLOOD SPECIMENOrdering Facility: [facility] Address: [address] [place] [address] Performed By: #### 5 8410-2 ####QIUROZ LABORATORYCLIA [id number] [address] Nucleated RBC (Bld) [#/Vol] 10*3/uL Normal <0.01 [facility] Comment on above: Order Comment: Speci men Type: BLOOD SPECIMENOrdering Facility: [facility] Address: [address] [place] [address] Performed By: #### 5 8410-2 ####QUIROZ LABORATORYCLIA [id number] [address] [place] Platelet mean volume (Bld) [Entitic vol] 10.0 fL Normal 9.0-12.7 [facility] Comment on above: Order Comment: Speci men Type: BLOOD SPECIMENOrdering Facility: [facility] Address: [address] [place] [address] Performed By: #### 5 8410-2 ####FLORIS LABORATORYCLIA [id number] [place] [address] [place] Platelets (Bld) [#/Vol] 238 10*3/uL Normal 150-400 [facility] Comment on above: Order Comment: Speci men Type: BLOOD SPECIMENOrdering Facility: [facility] Address: [address] [place] [address] Performed By: #### 5 8410-2 ####FLORIS LABORATORYCLIA [id number] [place] [address] [place] RBC (Bld) [#/Vol] 4.34 10*6/uL Normal 3.90-5.20 [facility] Comment on above: Order Comment: Speci men Type: BLOOD SPECIMENOrdering Facility: [facility] Address: [address] [place] [address] Performed By: #### 5 8410-2 ####FLORIS LABORATORYCLIA [id number] [address] [place] WBC (Bld) [#/Vol] 7.49 10*3/uL Normal 3.70-11.00 [facility] Comment on above: Order Comment: Speci men Type: BLOOD SPECIMENOrdering Facility: [facility] Address: [address] [place] [address] Performed By: #### 5 8410-2 ####QUIROZ LABORATORYCLIA [id number] [address] [place] CNCOon 10-20-2024 CNCO Letter Text Normal [facility] CNDSon 10-20-2024 CNDS HNO ID: [id number] Author: NALDO RYAN MD Service: General Internal [...] These medications were sent to e- [id number] [place] [address] - [address] [place] [address] - [phone] [place] [address] guaiFENesin 600 mg 12 hr tablet levoFLOXacin [...] Management, and RN I have performed the yxse-li-eixb and relevant services for a total of < 30 minutes. SIGNATURE: Naldo Ryan MD DATE: October 20, 2024 TIME: 9:58 AM Normal [facility] Comprehensive metabolic 2000 panelon 10-20-2024 Albumin [Mass/Vol] 4.0 g/dL Normal 3.9-4.9 [facility] Comment on above: Order Comment: Speci men Type: BLOOD SPECIMENOrdering Facility: [facility] Address: [address] [place] [address] Performed By: #### 2 4323-8 ####FLORIS LABORATORYCLIA [id number] [place] [address] [facility] ALP [Catalytic activity/Vol] 86 U/L Normal 34-123 [facility] Comment on above: Order Comment: Speci men Type: BLOOD SPECIMENOrdering Facility: [facility] Address: [address] [place] [address] Performed By: #### 2 4323-8 ####QUIROZ LABORATORYCLIA [id number] [place] [address] [place] ALT [Catalytic activity/Vol] 32 U/L Normal 7-38 [facility] Comment on above: Order Comment: Speci men Type: BLOOD SPECIMENOrdering Facility: [facility] Address: [address] [place] [address] Performed By: #### 2 4323-8 ####QUIROZ LABORATORYCLIA [id number] [place] [address] [place] Anion gap [Moles/Vol] 7 mmol/L Low 8-15 [facility] Comment on above: Order Comment: Speci men Type: BLOOD SPECIMENOrdering Facility: [facility] Address: [address] [place] [address] Performed By: #### 2 4323-8 ####QUIROZ LABORATORYCLIA [id number] [address] [place] AST [Catalytic activity/Vol] 19 U/L Normal 13-35 [facility] Comment on above: Order Comment: Speci men Type: BLOOD SPECIMENOrdering Facility: [facility] Address: [address] [place] [address] Performed By: #### 2 4323-8 ####QUIROZ LABORATORYCLIA [id number] [place] [address] [place] Bilirubin [Mass/Vol] 0.3 mg/dL Normal 0.2-1.3 [facility] Comment on above: Order Comment: Speci men Type: BLOOD SPECIMENOrdering Facility: [facility] Address: [address] [place] [address] Performed By: #### 2 4323-8 ####QUIROZ LABORATORYCLIA [id number] [place] [address] [place] Calcium [Mass/Vol] 9.6 mg/dL Normal 8.5-10.2 [facility] Comment on above: Order Comment: Speci men Type: BLOOD SPECIMENOrdering Facility: [facility] Address: [facility] [place] [address] Performed By: #### 2 4323-8 ####QUIROZ LABORATORYCLIA [id number] [place] [address] [place] Chloride [Moles/Vol] 98 mmol/L Normal 98-107 [facility] Comment on above: Order Comment: Speci men Type: BLOOD SPECIMENOrdering Facility: [facility] Address: [address] [place] [address] Performed By: #### 2 4323-8 ####QUIROZ LABORATORYCLIA [id number] [place] [address] [place] CO2 [Moles/Vol] 32 mmol/L High 22-30 [facility] Comment on above: Order Comment: Speci men Type: BLOOD SPECIMENOrdering Facility: [facility] Address: [address] [place] [address] Performed By: #### 2 4323-8 ####UQIROZ LABORATORYCLIA [id number] [place] [address] [place] Creatinine [Mass/Vol] 0.70 mg/dL Normal 0.58-0.96 [facility] Comment on above: Order Comment: Speci men Type: BLOOD SPECIMENOrdering Facility: [facility] Address: [address] [place] [address] Performed By: #### 2 4323-8 ####QUIROZ LABORATORYCLIA [id number] [address] Creatinine and Glomerular filtration rate.predicted panel (S/P/Bld) 117 mL/min/1.73m??? Normal >=60 [facility] Comment on above: Order Comment: Speci men Type: BLOOD SPECIMENOrdering Facility: [facility] Address: [address] [place] [address] Result Comment: Vidhi mated Glomerular Filtration Rate [...] Performed By: #### 2 4323-8 ####QUIROZ LABORATORYCLIA [id number] [place] [address] [place] Glucose [Mass/Vol] 134 mg/dL High 74-99 [facility] Comment on above: Order Comment: Jayne almonte Type: BLOOD SPECIMENOrdering Facility: [facility] Address: [address] [place] [address] Result Comment: The [place] [employer] (ADA) provides guidance for cutoff [...] Standards of Medical Care in Diabetes 2016, [place] [employer]. Diabetes Care. 2016.39(Suppl 1). Performed By: #### 2 4323-8 ####FLORIS LABORATORYCLIA [id number] [place] [address] [place] Potassium [Moles/Vol] 5.5 mmol/L High 3.7-5.1 [facility] Comment on above: Order Comment: Jayne almonte Type: BLOOD SPECIMENOrdering Facility: [facility] Address: [address] [place] [address] Performed By: #### 2 4323-8 ####FLORIS LABORATORYCLIA [id number] [place] [id number] [place] Protein [Mass/Vol] 6.8 g/dL Normal 6.3-8.0 [facility] Comment on above: Order Comment: Jayne almonte Type: BLOOD SPECIMENOrdering Facility: [facility] Address: [address] [place] [address] Performed By: #### 2 4323-8 ####QUIROZ LABORATORYCLIA [id number] [address] Sodium [Moles/Vol] 137 mmol/L Normal 136-144 [facility] Comment on above: Order Comment: Speci men Type: BLOOD SPECIMENOrdering Facility: [facility] Address: [address] [place] [address] Performed By: #### 2 4323-8 ####QUIROZ LABORATORYCLIA [id number] [address] Urea nitrogen [Mass/Vol] 17 mg/dL Normal 7-21 [facility] Comment on above: Order Comment: Speci men Type: BLOOD SPECIMENOrdering Facility: [facility] Address: [address] [place] [address] Performed By: #### 2 4323-8 ####QUIROZ LABORATORYCLIA [id number] [address] ALLIED HEALTHon 10-19-2024 ALLIED HEALTH HNO ID: [id number] Author: SARAH GALLOWAY RN Service: Infection Prevention [...] 19, 2024 TIME: 9:02 AM PAGER/CONTACT #: [phone] Infection Prevention after hours/weekend pager: Contact Nursing Chair Inspector Normal [facility] Bacteria Spec Resp Culton Bacteria identified Respiratory culture Nom (Unsp spec) ORGANISM ID: 1 Few normal respiratory placido GRAM STAIN: No organisms seen No Polymorphonuclear Leukocytes Abnormal [facility] Comment on above: Performed By: #### 3 2355-0 ####[facility] LABCLIA [id number] [facility] [id number] OF [facility] CBC panel Auto (Bld)on 10-19 Erythrocyte distribution width (RBC) [Ratio] 13.1 % Normal 11.5-15.0 [facility] Comment on above: Order Comment: Speci men Type: BLOOD SPECIMENOrdering Facility: [facility] Address: [address] [place] [address] Performed By: #### 5 8410-2 ####QUIROZ LABORATORYCLIA [id number] [address] Hematocrit (Bld) [Volume fraction] 41.0 % Normal 36.0-46.0 [facility] Comment on above: Order Comment: Speci men Type: BLOOD SPECIMENOrdering Facility: [facility] Address: [address] [place] [address] Performed By: #### 5 8410-2 ####QUIROZ LABORATORYCLIA [id number] [address] [place] Hemoglobin (Bld) [Mass/Vol] 13.7 g/dL Normal 11.5-15.5 [facility] Comment on above: Order Comment: Speci men Type: BLOOD SPECIMENOrdering Facility: [facility] Address: [address] [place] [address] Performed By: #### 5 8410-2 ####QUIROZ LABORATORYCLIA [id number] [address] MCH (RBC) [Entitic mass] 31.9 pg Normal 26.0-34.0 [facility] Comment on above: Order Comment: Speci men Type: BLOOD SPECIMENOrdering Facility: [facility] Address: [address] [place] [address] Performed By: #### 5 8410-2 ####QUIROZ LABORATORYCLIA [id number] [address] STATES [facility] MCHC (RBC) [Mass/Vol] 33.4 g/dL Normal 30.5-36.0 [facility] Comment on above: Order Comment: Speci men Type: BLOOD SPECIMENOrdering Facility: [facility] Address: [address] [place] [address] Performed By: #### 5 8410-2 ####QUIROZ LABORATORYCLIA [id number] [address] MCV (RBC) [Entitic vol] 95.6 fL Normal 80.0-100.0 [facility] Comment on above: Order Comment: Speci men Type: BLOOD SPECIMENOrdering Facility: [facility] Address: [address] [place] [address] Performed By: #### 5 8410-2 ####QUIROZ LABORATORYCLIA [id number] [address] [place] Nucleated RBC (Bld) [#/Vol] 10*3/uL Normal <0.01 [facility] Comment on above: Order Comment: Speci men Type: BLOOD SPECIMENOrdering Facility: [facility] Address: [address] [place] [address] Performed By: #### 5 8410-2 ####QUIROZ LABORATORYCLIA [id number] [address] Platelet mean volume (Bld) [Entitic vol] 10.0 fL Normal 9.0-12.7 [facility] Comment on above: Order Comment: Speci men Type: BLOOD SPECIMENOrdering Facility: [facility] Address: [address] [place] [address] Performed By: #### 5 8410-2 ####QUIROZ LABORATORYCLIA [id number] [address] Platelets (Bld) [#/Vol] 234 10*3/uL Normal 150-400 [facility] Comment on above: Order Comment: Speci men Type: BLOOD SPECIMENOrdering Facility: [facility] Address: [address] [place] [address] Performed By: #### 5 8410-2 ####QUIROZ LABORATORYCLIA [id number] [address] [place] RBC (Bld) [#/Vol] 4.29 10*6/uL Normal 3.90-5.20 [facility] Comment on above: Order Comment: Speci men Type: BLOOD SPECIMENOrdering Facility: [facility] Address: [address] [place] [address] Performed By: #### 5 8410-2 ####QUIROZ LABORATORYCLIA [id number] [address] WBC (Bld) [#/Vol] 7.30 10*3/uL Normal 3.70-11.00 [facility] Comment on above: Order Comment: Speci men Type: BLOOD SPECIMENOrdering Facility: [facility] Address: [address] [place] [address] Performed By: #### 5 8410-2 ####QUIROZ LABORATORYCLIA [id number] [address] Comprehensive metabolic 2000 panelon 10-19-2024 Albumin [Mass/Vol] 3.6 g/dL Low 3.9-4.9 [facility] Comment on above: Order Comment: Speci men Type: BLOOD SPECIMENOrdering Facility: [facility] Address: [address] [place] [address] Performed By: #### 2 4323-8 ####QUIROZ LABORATORYCLIA [id number] [address] ALP [Catalytic activity/Vol] 96 U/L Normal 34-123 [facility] Comment on above: Order Comment: Speci men Type: BLOOD SPECIMENOrdering Facility: [facility] Address: [address] [place] [address] Performed By: #### 2 4323-8 ####QUIROZ LABORATORYCLIA [id number] [address] ALT [Catalytic activity/Vol] 33 U/L Normal 7-38 [facility] Comment on above: Order Comment: Speci men Type: BLOOD SPECIMENOrdering Facility: [facility] Address: [address] [place] [address] Performed By: #### 2 4323-8 ####QUIROZ LABORATORYCLIA [id number] [address] Anion gap [Moles/Vol] 8 mmol/L Normal 8-15 [facility] Comment on above: Order Comment: Speci men Type: BLOOD SPECIMENOrdering Facility: [facility] Address: [address] [place] [address] Performed By: #### 2 4323-8 ####QUIROZ LABORATORYCLIA [id number] [place] [address] [place] AST [Catalytic activity/Vol] 25 U/L Normal 13-35 [facility] Comment on above: Order Comment: Speci men Type: BLOOD SPECIMENOrdering Facility: [facility] Address: [address] [place] [address] Performed By: #### 2 4323-8 ####QUIROZ LABORATORYCLIA [id number] [place] [address] [place] Bilirubin [Mass/Vol] 0.4 mg/dL Normal 0.2-1.3 [facility] Comment on above: Order Comment: Speci men Type: BLOOD SPECIMENOrdering Facility: [facility] Address: [address] [place] [address] Performed By: #### 2 4323-8 ####QUIROZ LABORATORYCLIA [id number] [place] [address] [place] Calcium [Mass/Vol] 9.1 mg/dL Normal 8.5-10.2 [facility] Comment on above: Order Comment: Speci men Type: BLOOD SPECIMENOrdering Facility: [facility] Address: [address] [place] [address] Performed By: #### 2 4323-8 ####QUIROZ LABORATORYCLIA [id number] [place] [address] [place] Chloride [Moles/Vol] 99 mmol/L Normal 98-107 [facility] Comment on above: Order Comment: Speci men Type: BLOOD SPECIMENOrdering Facility: [facility] Address: [address] [place] [address] Performed By: #### 2 4323-8 ####QUIROZ LABORATORYCLIA [id number] [place] [address] [place] CO2 [Moles/Vol] 30 mmol/L Normal 22-30 [facility] Comment on above: Order Comment: Speci men Type: BLOOD SPECIMENOrdering Facility: [facility] Address: [address] [place] [address] Performed By: #### 2 4323-8 ####QUIROZ LABORATORYCLIA [id number] [place] [address] [place] Creatinine [Mass/Vol] 0.75 mg/dL Normal 0.58-0.96 [facility] Comment on above: Order Comment: Jayne almonte Type: BLOOD SPECIMENOrdering Facility: [facility] Address: [address] [place] [address] Performed By: #### 2 4323-8 ####QUIROZ LABORATORYCLIA [id number] [address] Creatinine and Glomerular filtration rate.predicted panel (S/P/Bld) 108 mL/min/1.73m??? Normal >=60 [facility] Comment on above: Order Comment: [facility] Type: BLOOD SPECIMENOrdering Facility: [facility] Address: [address] [place] [address] Result Comment: Vidhi mated Glomerular Filtration Rate [...] Performed By: #### 2 4323-8 ####QUIROZ LABORATORYCLIA [id number] [address] [place] Glucose [Mass/Vol] 117 mg/dL High 74-99 [facility] Comment on above: Order Comment: Jayne [facility] Type: BLOOD SPECIMENOrdering Facility: [facility] Address: [address] [place] [address] Result Comment: The [place] [employer] (ADA) provides guidance for cutoff [...] Standards of Medical Care in Diabetes 2016, [place] [employer]. Diabetes Care. 2016.39(Suppl 1). Performed By: #### 2 4323-8 ####QUIROZ LABORATORYCLIA [id number] [address] [place] Potassium [Moles/Vol] 4.9 mmol/L Normal 3.7-5.1 [facility] Comment on above: Order Comment: Speci gage Type: BLOOD SPECIMENOrdering Facility: [facility] Address: [address] [place] [address] Performed By: #### 2 4323-8 ####QUIROZ LABORATORYCLIA [id number] [address] Protein [Mass/Vol] 6.6 g/dL Normal 6.3-8.0 [facility] Comment on above: Order Comment: Speci men Type: BLOOD SPECIMENOrdering Facility: [facility] Address: [address] [place] [address] Performed By: #### 2 4323-8 ####QUIROZ LABORATORYCLIA [id number] [address] Sodium [Moles/Vol] 137 mmol/L Normal 136-144 [facility] Comment on above: Order Comment: Sethi gage Type: BLOOD SPECIMENOrdering Facility: [facility] Address: [address] [place] [address] Performed By: #### 2 4323-8 ####QUIROZ LABORATORYCLIA [id number] [address] [place] Urea nitrogen [Mass/Vol] 18 mg/dL Normal 7-21 [facility] Comment on above: Order Comment: Sethi men Type: BLOOD SPECIMENOrdering Facility: [facility] Address: [address] [place] [address] Performed By: #### 2 4323-8 ####QUIROZ LABORATORYCLIA [id number] [address] [place] ALLIED HEALTHon 10-18-2024 ALLIED HEALTH HNO ID: [id number] Author: FAUSTINO NICE CT Service: Radiology Author [...] PATIENT PRESENTS WITH AN IMPLANTABLE OR ATTACHED DANCE CRITIC: No RADIOLOGY DEPARTMENT: CT; Exam(s) Completed: PE Study PERIPHERAL IV DATA: Inpatient: see LDA documentation SIGNED BY: FABIO Givens October 18, 2024 12:48 PM [facility] HNO ID: [id number] Author: IDALIA LOPEZ RT([place]) Service: Radiology Author Type: Matrix Repairer Type: Allied Health Filed: 10/18/2024 11:48 Note [...] PATIENT PRESENTS WITH AN IMPLANTABLE OR ATTACHED DANCE CRITIC: No RADIOLOGY DEPARTMENT: General X-ray: Exam(s) Completed: Chest X-Ray PERIPHERAL IV DATA: Not applicable SIGNED BY: RT Lona([place]) October 18, 2024 11:47 AM [facility] CASE MGT INIT [place] 2023 CASE MGT INIT [place] HNO ID: [id number] Author: FAWN LONGO LSW Service: ASSESSMENT Author Type: Wall Attendant Type: Care Mgt Initial Assessment Filed: 10/18/2024 23:23 Note Text: CARE MANAGEMENT: ASSESSMENT AND DISCHARGE PLAN SERVICE DATE: October 18, 2024 SERVICE TIME: 11:19 PM PCP: No primary care provider on file. Primary Contact: Extended Emergency Contact Information Primary Emergency Contact: Randell Scanlon Mobile Relation: Significant other Admission Status: Inpatient Insurance Provider: [facility] MEDICAID Discharge Planning requested by: Per Department Practice Potential Transition Plans Home;To Be Determined Advance Directives Current Advance Directive: Health Care Power of Glue Jointer Feeder;Living Will In Chart: No Curing Room Supervisor Attempted to Assist with AD Completion: Yes [...] General wellness, Be able to go home [place] Choice Explained: [place] Choice Given: No Reason Not Given: [...] of services. No equipment use. Pt uses [facility], in [place]. Sig other will p/u on d/c. CM will follow with d/c planning needs. SIGNATURE: Fanw Longo, DICK, FREDDY PATIENT NAME: Carine Barba DATE: October 18, 2024 TIME: 11:18 PM Normal [facility] CBC W Auto Differential pane l (Bld)on 10-18-2024 Basophils (Bld) [#/Vol] 10*3/uL Normal <0.11 [facility] Comment on above: Order Comment: Speci men Type: BLOOD SPECIMENOrdering Facility: [facility] Address: [address] [place] [address] Performed By: #### 5 7021-8 ####QUIROZ LABORATORYCLIA [id number] [place] [address] [place] Basophils/100 WBC (Bld) 0.2 % Normal [facility] Comment on above: Order Comment: Speci men Type: BLOOD SPECIMENOrdering Facility: [facility] Address: [address] [place] [address] Performed By: #### 5 7021-8 ####QUIROZ LABORATORYCLIA [id number] [place] [address] [place] Differential cell count method Nom (Bld) Auto Normal [facility] Comment on above: Order Comment: Speci men Type: BLOOD SPECIMENOrdering Facility: [facility] Address: [address] [place] [address] Performed By: #### 5 7021-8 ####QUIROZ LABORATORYCLIA [id number] [place] [address] [place] Eosinophils (Bld) [#/Vol] 10*3/uL Normal <0.46 [facility] Comment on above: Order Comment: Speci men Type: BLOOD SPECIMENOrdering Facility: [facility] Address: [address] [place] [address] Performed By: #### 5 7021-8 ####QUIROZ LABORATORYCLIA [id number] [place] [address] [place] Eosinophils/100 WBC (Bld) 0.0 % Normal [facility] Comment on above: Order Comment: Speci men Type: BLOOD SPECIMENOrdering Facility: [facility] Address: [address] [place] [address] Performed By: #### 5 7021-8 ####QUIROZ LABORATORYCLIA [id number] [place] [address] [place] Erythrocyte distribution width (RBC) [Ratio] 13.2 % Normal 11.5-15.0 [facility] Comment on above: Order Comment: Speci men Type: BLOOD SPECIMENOrdering Facility: [facility] Address: [address] [place] [address] Performed By: #### 5 7021-8 ####QUIROZ LABORATORYCLIA [id number] [place] [address] [place] Hematocrit (Bld) [Volume fraction] 39.6 % Normal 36.0-46.0 [facility] Comment on above: Order Comment: Speci men Type: BLOOD SPECIMENOrdering Facility: [facility] Address: [address] [place] [address] Performed By: #### 5 7021-8 ####QUIROZ LABORATORYCLIA [id number] [place] [address] [place] Hemoglobin (Bld) [Mass/Vol] 13.3 g/dL Normal 11.5-15.5 [facility] Comment on above: Order Comment: Speci men Type: BLOOD SPECIMENOrdering Facility: [facility] Address: [address] [place] [address] Performed By: #### 5 7021-8 ####QUIROZ LABORATORYCLIA [id number] [place] [address] [place] Immature granulocytes (Bld) [#/Vol] 0.03 10*3/uL Normal <0.10 [facility] Comment on above: Order Comment: Speci men Type: BLOOD SPECIMENOrdering Facility: [facility] Address: [address] [place] [address] Performed By: #### 5 7021-8 ####QUIROZ LABORATORYCLIA [id number] [address] [place] Immature granulocytes/100 WBC (Bld) 0.3 % Normal [facility] Comment on above: Order Comment: Speci men Type: BLOOD SPECIMENOrdering Facility: [facility] Address: [address] [place] [address] Performed By: #### 5 7021-8 ####QUIROZ LABORATORYCLIA [id number] [address] Lymphocytes (Bld) [#/Vol] 2.48 10*3/uL Normal 1.00-4.00 [facility] Comment on above: Order Comment: Speci men Type: BLOOD SPECIMENOrdering Facility: [facility] Address: [address] [place] [address] Performed By: #### 5 7021-8 ####QUIROZ LABORATORYCLIA [id number] [address] Lymphocytes/100 WBC (Bld) 25.1 % Normal [facility] Comment on above: Order Comment: Speci men Type: BLOOD SPECIMENOrdering Facility: [facility] Address: [address] [place] [address] Performed By: #### 5 7021-8 ####QUIROZ LABORATORYCLIA [id number] [address] MCH (RBC) [Entitic mass] 32.4 pg Normal 26.0-34.0 [facility] Comment on above: Order Comment: Speci men Type: BLOOD SPECIMENOrdering Facility: [facility] Address: [address] [place] [address] Performed By: #### 5 7021-8 ####QUIROZ LABORATORYCLIA [id number] [address] MCHC (RBC) [Mass/Vol] 33.6 g/dL Normal 30.5-36.0 [facility] Comment on above: Order Comment: Speci men Type: BLOOD SPECIMENOrdering Facility: [facility] Address: [address] [place] [address] Performed By: #### 5 7021-8 ####QUIROZ LABORATORYCLIA [id number] [address] MCV (RBC) [Entitic vol] 96.4 fL Normal 80.0-100.0 [facility] Comment on above: Order Comment: Speci men Type: BLOOD SPECIMENOrdering Facility: [facility] Address: [address] [place] [address] Performed By: #### 5 7021-8 ####QUIROZ LABORATORYCLIA [id number] [place] [address] [place] Monocytes (Bld) [#/Vol] 0.65 10*3/uL Normal <0.87 [facility] Comment on above: Order Comment: Speci men Type: BLOOD SPECIMENOrdering Facility: [facility] Address: [address] [place] [address] Performed By: #### 5 7021-8 ####QUIROZ LABORATORYCLIA [id number] [address] Monocytes/100 WBC (Bld) 6.6 % Normal [facility] Comment on above: Order Comment: Speci men Type: BLOOD SPECIMENOrdering Facility: [facility] Address: [address] [place] [address] Performed By: #### 5 7021-8 ####QUIROZ LABORATORYCLIA [id number] [place] [address] [place] Neutrophils (Bld) [#/Vol] 6.69 10*3/uL Normal 1.45-7.50 [facility] Comment on above: Order Comment: Speci men Type: BLOOD SPECIMENOrdering Facility: [facility] Address: [address] [place] [address] Performed By: #### 5 7021-8 ####QUIROZ LABORATORYCLIA [id number] [place] [address] [place] Neutrophils/100 WBC (Bld) 67.8 % Normal [facility] Comment on above: Order Comment: Speci men Type: BLOOD SPECIMENOrdering Facility: [facility] Address: [address] [place] [address] Performed By: #### 5 7021-8 ####QUIROZ LABORATORYCLIA [id number] [place] [address] [place] Nucleated RBC (Bld) [#/Vol] 10*3/uL Normal <0.01 [facility] Comment on above: Order Comment: Speci men Type: BLOOD SPECIMENOrdering Facility: [facility] Address: [address] [place] [address] Performed By: #### 5 7021-8 ####QUIROZ LABORATORYCLIA [id number] [address] [place] Nucleated RBC/100 WBC (Bld) [Ratio] 0.0 /100 WBC Normal [facility] Comment on above: Order Comment: Speci men Type: BLOOD SPECIMENOrdering Facility: [facility] Address: [address] [place] [address] Performed By: #### 5 7021-8 ####QUIROZ LABORATORYCLIA [id number] [address] Platelet mean volume (Bld) [Entitic vol] 9.8 fL Normal 9.0-12.7 [facility] Comment on above: Order Comment: Speci men Type: BLOOD SPECIMENOrdering Facility: [facility] Address: [address] [place] [address] Performed By: #### 5 7021-8 ####QUIROZ LABORATORYCLIA [id number] [address] [place] Platelets (Bld) [#/Vol] 250 10*3/uL Normal 150-400 [facility] Comment on above: Order Comment: Speci men Type: BLOOD SPECIMENOrdering Facility: [facility] Address: [address] [place] [address] Performed By: #### 5 7021-8 ####QUIROZ LABORATORYCLIA [id number] [address] [place] RBC (Bld) [#/Vol] 4.11 10*6/uL Normal 3.90-5.20 [facility] Comment on above: Order Comment: Speci men Type: BLOOD SPECIMENOrdering Facility: [facility] Address: [address] [place] [address] Performed By: #### 5 7021-8 ####QUIROZ LABORATORYCLIA [id number] [place] [address] [place] WBC (Bld) [#/Vol] 9.87 10*3/uL Normal 3.70-11.00 [facility] Comment on above: Order Comment: Speci men Type: BLOOD SPECIMENOrdering Facility: [facility] Address: [address] [place] [address] Performed By: #### 5 7021-8 ####[facility] LABORATORYCLIA [id number] [place] [address] [facility] [place] CTA CHEST (NON GATED) W IVCO N PEon 10-18-2024 CTA CHEST (NON GATED) W IVCON PE * * *Final Report* * * DATE OF EXAM: Oct 18 2024 12:52PM [facility] [place] [place]64 - CTA CHEST (NON GATED) W [...] upper lobe likely secondary to atypical/viral pneumonia. Location Analyst: MARCIN Transcribe Date/Time: Oct 18 2024 12:56P Dictated by : ROGELIO RIDER DO This examination was interpreted and the report reviewed and electronically signed by: ROGELIO RIDER DO on Oct 18 2024 1:14PM EST [id number] Normal [facility] Comprehensive metabolic 2000 panelon 10-18-2024 Albumin [Mass/Vol] 4.0 g/dL Normal 3.9-4.9 [facility] Comment on above: Order Comment: Speci men Type: BLOOD SPECIMENOrdering Facility: [facility] Address: [address] [place] [address] Performed By: #### 2 4323-8, [id number] ####QUIROZ LABORATORYCLIA [id number] [place] [address] [place] ALP [Catalytic activity/Vol] 87 U/L Normal 34-123 [facility] Comment on above: Order Comment: Speci men Type: BLOOD SPECIMENOrdering Facility: [facility] Address: [address] [place] [address] Performed By: #### 2 4323-8, [id number] ####QUIROZ LABORATORYCLIA [id number] [place] [address] [place] ALT [Catalytic activity/Vol] 24 U/L Normal 7-38 [facility] Comment on above: Order Comment: Speci men Type: BLOOD SPECIMENOrdering Facility: [facility] Address: [address] [place] [address] Performed By: #### 2 4323-8, [id number] ####QUIROZ LABORATORYCLIA [id number] [place] [address] [place] Anion gap [Moles/Vol] 9 mmol/L Normal 8-15 [facility] Comment on above: Order Comment: Speci men Type: BLOOD SPECIMENOrdering Facility: [facility] Address: [address] [place] [address] Performed By: #### 2 4323-8, [id number] ####QUIROZ LABORATORYCLIA [id number] [place] [address] [place] AST [Catalytic activity/Vol] 29 U/L Normal 13-35 [facility] Comment on above: Order Comment: Speci men Type: BLOOD SPECIMENOrdering Facility: [facility] Address: [address] [place] [address] Performed By: #### 2 4323-8, [id number] ####QUIROZ LABORATORYCLIA [id number] [place] [address] [place] Bilirubin [Mass/Vol] 0.4 mg/dL Normal 0.2-1.3 [facility] Comment on above: Order Comment: Speci men Type: BLOOD SPECIMENOrdering Facility: [facility] Address: [address] [place] [address] Performed By: #### 2 4323-8, [id number] ####QUIROZ LABORATORYCLIA [id number] [place] [address] [place] Calcium [Mass/Vol] 9.2 mg/dL Normal 8.5-10.2 [facility] Comment on above: Order Comment: Speci men Type: BLOOD SPECIMENOrdering Facility: [facility] Address: [address] [place] [address] Performed By: #### 2 4323-8, [id number] ####QUIROZ LABORATORYCLIA [id number] [place] [address] [place] Chloride [Moles/Vol] 99 mmol/L Normal 98-107 [facility] Comment on above: Order Comment: Speci men Type: BLOOD SPECIMENOrdering Facility: [facility] Address: [address] [place] [address] Performed By: #### 2 4323-8, [id number] ####QUIROZ LABORATORYCLIA [id number] [place] [address] [place] CO2 [Moles/Vol] 29 mmol/L Normal 22-30 [facility] Comment on above: Order Comment: Speci men Type: BLOOD SPECIMENOrdering Facility: [facility] Address: [address] [place] [address] Performed By: #### 2 4323-8, [id number] ####QUIROZ LABORATORYCLIA [id number] [place] [address] [place] Creatinine [Mass/Vol] 0.69 mg/dL Normal 0.58-0.96 [facility] Comment on above: Order Comment: Speci men Type: BLOOD SPECIMENOrdering Facility: [facility] Address: [address] [place] [address] Performed By: #### 2 4323-8, [id number] ####QUIROZ LABORATORYCLIA [id number] [place] [address] [place] [facility] [place] Creatinine and Glomerular filtration rate.predicted panel (S/P/Bld) 118 mL/min/1.73m??? Normal >=60 [facility] Comment on above: Order Comment: Speci men Type: BLOOD SPECIMENOrdering Facility: [facility] Address: [address] [place] [address] Result Comment: Vidhi mated Glomerular Filtration Rate [...] actual GFR. Performed By: #### 2 4323-8, [id number] ####QUIROZ LABORATORYCLIA [id number] [place] [address] [place] Glucose [Mass/Vol] 92 mg/dL Normal 74-99 [facility] Comment on above: Order Comment: Jayne almonte Type: BLOOD SPECIMENOrdering Facility: [facility] Address: [address] [id number] Result Comment: The [place] [employer] (ADA) provides guidance for cutoff [...] Standards of Medical Care in Diabetes 2016, [place] [employer]. Diabetes Care. 2016.39(Suppl 1). Performed By: #### 2 4323-8, [id number] ####QUIROZ LABORATORYCLIA [id number] [place] [address] [place] Potassium [Moles/Vol] 3.4 mmol/L Low 3.7-5.1 [facility] Comment on above: Order Comment: Jayne almonte Type: BLOOD SPECIMENOrdering Facility: [facility] Address: [address] [place] [address] Performed By: #### 2 4323-8, [id number] ####QUIROZ LABORATORYCLIA [id number] [place] [address] [place] Protein [Mass/Vol] 6.9 g/dL Normal 6.3-8.0 [facility] Comment on above: Order Comment: Speci men Type: BLOOD SPECIMENOrdering Facility: [facility] Address: [address] [facility] [place] [address] Performed By: #### 2 4323-8, [id number] ####QUIROZ LABORATORYCLIA [id number] [address] STATES OF [facility] Sodium [Moles/Vol] 137 mmol/L Normal 136-144 [facility] Comment on above: Order Comment: Speci men Type: BLOOD SPECIMENOrdering Facility: [facility] Address: [address] [place] [address] Performed By: #### 2 4323-8, [id number] ####QUIROZ LABORATORYCLIA [id number] [address] [place] Urea nitrogen [Mass/Vol] 14 mg/dL Normal 7-21 [facility] Comment on above: Order Comment: Speci men Type: BLOOD SPECIMENOrdering Facility: [facility] Address: [address] [place] [address] Performed By: #### 2 4323-8, [id number] ####QUIROZ LABORATORYCLIA [id number] [address] [place] ECG COMPLETEon 10-18-2024 ECG COMPLETE Ventricular Rate : 8 7 BPM Atrial Rate : 87 BPM P-R Interval : 144 ms QRS Duration : 90 ms Q-T Interval : 356 ms QTC Calculation(Bazett) : 428 ms Calculated P Paulina : 79 degrees Calculated R Paulina : 82 degrees Calculated T Paulina : 52 degrees NORMAL SINUS RHYTHM WITH SINUS ARRHYTHMIA NONSPECIFIC T WAVE ABNORMALITY ABNORMAL ECG NO STEMI Confirmed by Dmitry VAZQUEZ ERIKA ([id number]), department editor ABEL KIRK ([id number]) on 10/19/2024 9:44:13 AM NAME : CARINE BARBA PID : [id number] : 1990 Gender : Female Race : ORD : [id number] Procedure Date : Oct 18 2024 11:44:25 Edit Date : Oct 19 2024 09:44:16 Diagnosis: NORMAL SINUS RHYTHM WITH SINUS ARRHYTHMIA NONSPECIFIC T WAVE ABNORMALITY ABNORMAL ECG NO STEMI Confirmed by Dmitry VAZQUEZ ERIKA ([id number]), department editor ABEL KIRK ([id number]) on 10/19/2024 9:44:13 AM Test Reason : Chest Pain Location : 1 : ER ED Overread By : Dmitry VAZQUEZ ERIKA Edited By : ABEL KIRK Referred By : , Acquired by : , [facility] ED PROV NOTEon 10-18-2024 ED PROV NOTE HNO ID: [id number] Author: VIVIEN ABDI DO Service: Emergency Medicine [...] PM PAGER/CONTACT #: VIVIEN ABDI 10/18/24 1549 [facility] ED PROV NOTE HNO ID: [id number] Author: ANA VAZQUEZ MD Service: ? Author Type: Physician Type: ED Provider Notes Filed: 10/18/2024 13:44 Note Text: ED Provider Note Patient Name: Carine Barba : 1990 SERVICE DATE: 10/18/24 History Patient presents with: Asthma: pt was seen multiple times and was admitted ([place])and left. and states they were not nice to her and she was getting worse and so she left and now states she still can't breath. 34-year-old female with history of asthma and DVT who presents with increasing shortness of breath, cough, and wheezing. Patient was seen at [facility] on the and overnight for the same. Both times she received nebulizer treatments and steroids. She has got progressively worse since then and feels she needs to be admitted. The patient admits to cough and congestion as well. PAST MEDICAL HISTORY Diagnosis Date Asthma DVT (deep venous thrombosis) ([facility]) Knee pain, bilateral Leg injury Bilat PAST [...] increasing shortness (more content not included)... Normal [facility] HCG Preg Ur Qlon 10-18-2024 HCG ( test) Ql (U) Negative Normal Negative [facility] Comment on above: Order Comment: Speci men Type: URINE SPECIMENOrdering Facility: [facility] Address: [address] [place] [address] Result Comment: This test is intended to aid in the early detection of . Very dilute urine samples, as indicated by a low specific gravity, may not contain insurance account representative levels of hCG. This test detects [...] Performed By: #### 2 106-3 ####QUIROZ LABORATORYCLIA [id number] [address] HIGH SENSITIVITY TROPONIN T (INITIAL)on 10-18-2024 Troponin T.cardiac High sensitivity method [Mass/Vol] <6 Normal <12 [facility] Comment on above: Order Comment: Speci men Type: BLOOD SPECIMENOrdering Facility: [facility] Address: [address] [place] [address] Performed By: #### 2 4323-8, [id number] ####QUIRO[facility] LABORATORYCLIA [id number] [address] HIGH SENSITIVITY TROPONIN T (SECOND)on 10-18-2024 Troponin T.cardiac High sensitivity method [Mass/Vol] <6 Normal <12 [facility] Comment on above: Order Comment: Speci men Type: BLOOD SPECIMENOrdering Facility: [facility] Address: [address] [place] [address] Performed By: #### L [id number], 84557-3 ####QUIRO[facility] LABORATORYCLIA [id number] [address] HISTORY PHYSICALon HISTORY PHYSICAL HNO ID: [id number] Author: SUNIL ROMERO MD Service: General Internal Medicine Author Type: Physician Type: H&P Filed: 10/18/2024 20:40 Note Text: [facility] STAFF PHYSICIAN NOTE OF PERSONAL [...] counseling and/or coordinating care for the patient. Kwhl-ap-vvyw time was 35 minutes SIGNATURE: Sunil Romero MD DATE of SERVICE: October 18, 2024 TIME of SERVICE: 8:38 PM History and Physical Examination SERVICE DATE: 10/18/2024 SERVICE TIME: 1745 PCP: No primary care provider on file. PRIMARY ATTENDING: Sunil Fish MD Subjective CHIEF COMPLAINT: Asthma (pt was seen multiple times and was admitted ([place])and left. and states they were not nice to her and she was getting worse and so she left and now states she still can't breath. ) HPI: Patient is a 34-year-old female presenting from the ER for evaluation of for shortness of breath. Patient with a PMH of asthma and DVT. Patient noted to have recently been admitted to [facility] for similar concerns with breathing treatments and steroids. She states that her symptoms have progressively worsened since leaving [facility]. She reports ongoing shortness of breath with [...] dysuria, fr (more content not included)... Normal [facility] Legionella Ag Ur Qlon 2023 Legionella sp Ag Ql (U) Negative Normal Negative [facility] Comment on above: Order Comment: Speci men Type: URINE SPECIMENOrdering Facility: [facility] Address: [facility] [place] [address] Result Comment: Legi onella urinary antigen test is used as an aid in diagnosis of infection with Legionella pneumophila serogroup 1. It may be detected from a few days to several months after onset of signs and symptoms despite antibiotic therapy or disease resolution. A negative result cannot exclude Legionellosis. Clinical correlation is required. Performed By: #### 3 2781-7 ####[facility] LABCLIA [id number] [facility] [id number] [address] [place] Procalcitonin SerPl-mCncon 1 2-26-2024 Procalcitonin [Mass/Vol] ng/mL Normal <0.09 [facility] Comment on above: Order Comment: Speci men Type: BLOOD SPECIMENOrdering Facility: [facility] Address: [address] [place] [address] Result Comment: For a guided interpretation of test results, please visit the Change in Procalcitonin Calculator, [email or web address]. Performed By: #### L [id number], 83495-3 ####[facility]ORY[facility] [id number] [place] [address] [place] STAPHYLOCOCCUS AUREUS AND MR SA SCREEN, PCR, NASALon 10-18-2024 S. aureus and MRSA panel DAJA+probe (Nose) Not detected Normal Not Detected [facility] Comment on above: Order Comment: Speci men Type: SWABOrdering Facility: [facility] Address: [address] [place] [address] Performed By: #### S APCR ####[facility] LAB[facility]IA [id number] [place] [address] [place] STREPTOCOCCUS PNEUMONIAE ANT IGEN URINEon 10-18-2024 STREPTOCOCCUS PNEUMONIAE ANTIGEN URINE STREP PNEUMO AG RESULT: Negative for Streptococcus pneumoniae antigen. Presumptive negative for pneumococcal pneumonia, suggesting no current or recent pneumococcal infection. Infection due to S.pneumoniae cannot be ruled out since the antigen present in the sample may be below the detection limit of the test. Normal [facility] Comment on above: Performed By: #### S PNAG ####[facility] [id number] [place] [address] [place] XR CHEST 1V [...] RIGHT bilateral infrahilar opacities suggestive of pneumonia. Location Analyst: MARCIN Transcribe Date/Time: Oct 18 2024 11:48A Dictated by : ROGELIO RIDER DO This examination was interpreted and the report reviewed and electronically signed by: ROGELIO RIDER DO on Oct 18 2024 11:49AM EST [id number] N Normal [facility] CBC W/Diff, Automatedon 12-2 Absolute Neut Normal 2.0-7.7 [facility] Comment on above: Result Comment: PT D ISCHARGED Performed By: #### L 500.4050, L100.0100 #### [facility] [address] [place], [address] HCT Normal 37-47 [facility] Comment on above: Result Comment: PT D ISCHARGED Performed By: #### L 500.4050, L100.0100 #### [facility] [address] [place], [address] HGB Normal 12.0-15.0 [facility] Comment on above: Result Comment: PT D ISCHARGED Performed By: #### L 500.4050, L100.0100 #### [facility] [address] [place], [address] MCH Normal 27.0-32.0 [facility] Comment on above: Result Comment: PT D ISCHARGED Performed By: #### L 500.4050, L100.0100 #### [facility] [address] [place], [address] MCHC Normal 32-36 [facility] Comment on above: Result Comment: PT D ISCHARGED Performed By: #### L 500.4050, L100.0100 #### [facility] [address] [place], [address] MCV Normal 81-99 [facility] Comment on above: Result Comment: PT D ISCHARGED Performed By: #### L 500.4050, L100.0100 #### [facility] [address] [place], [address] NEUT% Normal 47-70 [facility] Comment on above: Result Comment: PT D ISCHARGED Performed By: #### L 500.4050, L100.0100 #### [facility] [address] [place], [address] PLT Normal 150-450 [facility] Comment on above: Result Comment: PT D ISCHARGED Performed By: #### L 500.4050, L100.0100 #### [facility] [address] [place], [address] RBC Normal 4.2-5.4 [facility] Comment on above: Result Comment: PT D ISCHARGED Performed By: #### L 500.4050, L100.0100 #### [facility] [address] [place], [address] RDW CV Normal 11.6-14.6 [facility] Comment on above: Result Comment: PT D ISCHARGED Performed By: #### L 500.4050, L100.0100 #### [facility] [address] [place], [address] RDW SD Normal 35.1-43.9 [facility] Comment on above: Result Comment: PT D ISCHARGED Performed By: #### L 500.4050, L100.0100 #### [facility] [address] [place], [address] WBC Normal 4.4-11.0 [facility] Comment on above: Result Comment: PT D ISCHARGED Performed By: #### L 500.4050, L100.0100 #### [facility] [address] [place], [address] Comprehensive Metabolic Prof ilon 10-17-2024 ALB Normal 3.2-5.0 [facility] Comment on above: Result Comment: PT D ISCHARGED Performed By: #### L 500.4050, L100.0100 #### [facility] [address] [place], [address] ALK P Normal 45-117 [facility] Comment on above: Result Comment: PT D ISCHARGED Performed By: #### L 500.4050, L100.0100 #### [facility] [address] [place], [address] ALT Normal 13-56 [facility] Comment on above: Result Comment: PT D ISCHARGED Performed By: #### L 500.4050, L100.0100 #### [facility] [address] [place], [address] AST Normal 15-37 [facility] Comment on above: Result Comment: PT D ISCHARGED Performed By: #### L 500.4050, L100.0100 #### [facility] [address] [place], [address] BUN Normal 7-18 [facility] Comment on above: Result Comment: PT D ISCHARGED Performed By: #### L 500.4050, L100.0100 #### [facility] [address] [place], [address] BUN/CRE Normal 10-20 [facility] Comment on above: Result Comment: PT D ISCHARGED Performed By: #### L 500.4050, L100.0100 #### [facility] [address] [place], [address] CA,Total Normal 8.5-10.1 [facility] Comment on above: Result Comment: PT D ISCHARGED Performed By: #### L 500.4050, L100.0100 #### [facility] [address] [place], [address] CL Normal 98-107 [facility] Comment on above: Result Comment: PT D ISCHARGED Performed By: #### L 500.4050, L100.0100 #### [facility] [address] [place], [address] CO2 Normal 21.0-32.0 [facility] Comment on above: Result Comment: PT D ISCHARGED Performed By: #### L 500.4050, L100.0100 #### [facility] [address] [place], [address] CREAT,SERUM Normal 0.55-1.02 [facility] Comment on above: Result Comment: PT D ISCHARGED Performed By: #### L 500.4050, L100.0100 #### [facility] [address] [place], [address] EST GFR Normal >60 [facility] Comment on above: Result Comment: PT D ISCHARGED Performed By: #### L 500.4050, L100.0100 #### [facility] [address] [place], [address] EST GFR - AA Normal >60 [facility] Comment on above: Result Comment: PT D ISCHARGED Performed By: #### L 500.4050, L100.0100 #### [facility] [address] [place], [address] GAP Normal 5-15 [facility] Comment on above: Result Comment: PT D ISCHARGED Performed By: #### L 500.4050, L100.0100 #### [facility] [address] [place], [address] GLU Normal 74-106 [facility] Comment on above: Result Comment: PT D ISCHARGED Performed By: #### L 500.4050, L100.0100 #### [facility] [address] [place], [address] Potassium Normal 3.5-5.1 [facility] Comment on above: Result Comment: PT D ISCHARGED Performed By: #### L 500.4050, L100.0100 #### [facility] [address] [place], [address] T BILI Normal 0.20-1.00 [facility] Comment on above: Result Comment: PT D ISCHARGED Performed By: #### L 500.4050, L100.0100 #### [facility] [address] [place], [address] T PROT Normal 6.4-8.2 [facility] Comment on above: Result Comment: PT D ISCHARGED Performed By: #### L 500.4050, L100.0100 #### [facility] [address] [place], [address] Comprehensive Metabolic Profil Normal 136-145 [facility] Comment on above: Result Comment: PT D ISCHARGED Performed By: #### L 500.4050, L100.0100 #### [facility] [address] [place], [address] 12 Lead EKGon 10-16-2024 12 Lead EKG [facility] Cardi[facility] Services [address] [place] [address] 12 Lead EKG 10/16/24 0106 MR#: [id number] Acct: [id number] Name: CARINE BARBA Rep #: [id number] : 1990 34 From: Fly Love MD [...] ECG Confirmed by KAMI TRUJILLO, FLY ([id number]), department editor STEPH FAGAN ([id number]) on 10/18/2024 2:25:59 PM Referred By: TB Confirmed By: FLY LOVE MD 10/18/24 142 Date Fly Love MD CC: Dr. Arjun Lagunas, DO; No Primary Care Physician Signed Normal [facility] Basic Metabolic Profile (BMP )on 10-16-2024 BUN/CRE 17.3 RATIO Normal 10-20 [facility] Comment on above: Performed By: #### L 500.2500, L100.0100 #### [facility] [address] [place], [address] CA,Total 9.2 mg/dL Normal 8.5-10.1 [facility] Comment on above: Performed By: #### L 500.2500, L100.0100 #### [facility] [address] [place], [address] Chloride [Moles/Vol] 105 mmol/L Normal 98-107 [facility] Comment on above: Performed By: #### L 500.2500, L100.0100 #### [facility] [address] [place], [address] CO2 [Moles/Vol] 27.0 mmol/L Normal 21.0-32.0 [facility] Comment on above: Performed By: #### L 500.2500, L100.0100 #### [facility] [address] [place], [address] Creatinine [Mass/Vol] 0.87 mg/dL Normal 0.55-1.02 [facility] Comment on above: Result Comment: The validity of the calculated GFR GFRAA in patients over 70 years has not been determined. Clinical correlation is essential. Performed By: #### L 500.2500, L100.0100 #### [facility] [address] [place], [address] ECRCL 98.33 ml/min Normal [facility] Comment on above: Performed By: #### L 500.2500, L100.0100 #### [facility] [address] [place], [address] EST GFR - AA 96 mL/min Normal >60 [facility] Comment on above: Result Comment: Afri can [place] GFR Calc Performed By: #### L 500.2500, L100.0100 #### [facility] [address] [place], [address] GAP 6 Normal 5-15 [facility] Comment on above: Performed By: #### L 500.2500, L100.0100 #### [facility] [address] [place], [address] GFR/1.73 sq M.predicted among non-blacks MDRD (S/P/Bld) [Vol rate/Area] 80 mL/min/{1.73_m2} Normal >60 [facility] Comment on above: Result Comment: Non- GFR Calc Performed By: #### L 500.2500, L100.0100 #### [facility] [address] [place], [address] Glucose [Mass/Vol] 122 mg/dL High 74-106 [facility] Comment on above: Result Comment: Fast ing Glucose result from 100 to 125 mg/dL suggests IMPAIRED HOMEOSTASIS per A.D.A. criteria. Performed By: #### L 500.2500, L100.0100 #### [facility] [address] [place], [address] Potassium [Moles/Vol] 3.8 mmol/L Normal 3.5-5.1 [facility] Comment on above: Performed By: #### L 500.2500, L100.0100 #### [facility] [address] [place], [address] Sodium [Moles/Vol] 138 mmol/L Normal 136-145 [facility] Comment on above: Performed By: #### L 500.2500, L100.0100 #### [facility] [address] [place], [address] Urea nitrogen [Mass/Vol] 15 mg/dL Normal 7-18 [facility] Comment on above: Performed By: #### L 500.2500, L100.0100 #### [facility] [address] [place], [address] BUN/CRE 13.3 RATIO Normal 10-20 [facility] Comment on above: Performed By: #### L 500.2500, L100.0100 #### [facility] [address] [place], [address] CA,Total 9.3 mg/dL Normal 8.5-10.1 [facility] Comment on above: Performed By: #### L 500.2500, L100.0100 #### [facility] [address] [place], [address] Chloride [Moles/Vol] 103 mmol/L Normal 98-107 [facility] Comment on above: Performed By: #### L 500.2500, L100.0100 #### [facility] [address] [place], [address] CO2 [Moles/Vol] 28.0 mmol/L Normal 21.0-32.0 [facility] Comment on above: Performed By: #### L 500.2500, L100.0100 #### [facility] [address] [place], [address] Creatinine [Mass/Vol] 0.98 mg/dL Normal 0.55-1.02 [facility] Comment on above: Result Comment: The validity of the calculated GFR GFRAA in patients over 70 years has not been determined. Clinical correlation is essential. Performed By: #### L 500.2500, L100.0100 #### [facility] [address] [place], [address] ECRCL 87.08 ml/min Normal [facility] Comment on above: Performed By: #### L 500.2500, L100.0100 #### [facility] [address] [place], [address] EST GFR - AA 84 mL/min Normal >60 [facility] Comment on above: Result Comment: Afri can [place] GFR Calc Performed By: #### L 500.2500, L100.0100 #### [facility] [address] [place], [address] GAP 7 Normal 5-15 [facility] Comment on above: Performed By: #### L 500.2500, L100.0100 #### [facility] [address] [place], [address] GFR/1.73 sq M.predicted among non-blacks MDRD (S/P/Bld) [Vol rate/Area] 69 mL/min/{1.73_m2} Normal >60 [facility] Comment on above: Result Comment: Non- GFR Calc Performed By: #### L 500.2500, L100.0100 #### [facility] [address] [place], [address] Glucose [Mass/Vol] 118 mg/dL High 74-106 [facility] Comment on above: Result Comment: Fast ing Glucose result from 100 to 125 mg/dL suggests IMPAIRED HOMEOSTASIS per A.D.A. criteria. Performed By: #### L 500.2500, L100.0100 #### [facility] [address] [place], [address] Potassium [Moles/Vol] 3.5 mmol/L Normal 3.5-5.1 [facility] Comment on above: Performed By: #### L 500.2500, L100.0100 #### [facility] [address] [place], [address] Sodium [Moles/Vol] 138 mmol/L Normal 136-145 [facility] Comment on above: Performed By: #### L 500.2500, L100.0100 #### [facility] [address] [place], [address] Urea nitrogen [Mass/Vol] 13 mg/dL Normal 7-18 [facility] Comment on above: Performed By: #### L 500.2500, L100.0100 #### [facility] [address] [place], [address] CBC W/Diff, Automatedon 12-2 -2023 Absolute Lymph 0.48 X10 3/uL Low 0.83-4.51 [facility] Comment on above: Performed By: #### L 500.2500, L100.0100 #### [facility] [address] [place], [address] Absolute Neut 10.6 X10 3/uL High 2.0-7.7 [facility] Comment on above: Performed By: #### L 500.2500, L100.0100 #### [facility] [address] [place], [address] Basophils/100 WBC (Bld) 0.1 % Normal 0-1 [facility] Comment on above: Performed By: #### L 500.2500, L100.0100 #### [facility] [address] [place], [address] Eosinophils/100 WBC (Bld) 0.0 % Normal 0-5 [facility] Comment on above: Performed By: #### L 500.2500, L100.0100 #### [facility] [address] [place], [address] Erythrocyte distribution width (RBC) [Ratio] 13.1 % Normal 11.6-14.6 [facility] Comment on above: Performed By: #### L 500.2500, L100.0100 #### [facility] [address] [place], [address] Hematocrit (Bld) [Volume fraction] 42.5 % Normal 37-47 [facility] Comment on above: Performed By: #### L 500.2500, L100.0100 #### [facility] [address] [place], [address] Hemoglobin (Bld) [Mass/Vol] 14.3 g/dL Normal 12.0-15.0 [facility] Comment on above: Performed By: #### L 500.2500, L100.0100 #### [facility] [address] [place], [address] IG% 0.400 Normal 0.0-0.9 [facility] Comment on above: Result Comment: IG% - Immature Granulocytes (promyelocytes, myelocytes and metamyelocytes) > 1% indicates that a LEFT SHIFT is Present. Performed By: #### L 500.2500, L100.0100 #### [facility] [address] [place], [address] Lymphocytes/100 WBC (Bld) 4.1 % Low 19-41 [facility] Comment on above: Performed By: #### L 500.2500, L100.0100 #### [facility] [address] [place], [address] MCH (RBC) [Entitic mass] 32.5 pg High 27.0-32.0 [facility] Comment on above: Performed By: #### L 500.2500, L100.0100 #### [facility] [address] [place], [address] MCHC (RBC) [Mass/Vol] 33.6 g/dL Normal 32-36 [facility] Comment on above: Performed By: #### L 500.2500, L100.0100 #### [facility] [address] [place], [address] MCV (RBC) [Entitic vol] 96.6 fL Normal 81-99 [facility] Comment on above: Performed By: #### L 500.2500, L100.0100 #### [facility] [address] [place], [address] Monocytes/100 WBC (Bld) 5.1 % Normal 0-10 [facility] Comment on above: Performed By: #### L 500.2500, L100.0100 #### [facility] [address] [place], [address] Neutrophils/100 WBC (Bld) 90.3 % High 47-70 [facility] Comment on above: Performed By: #### L 500.2500, L100.0100 #### [facility] [address] [place], [address] Nucleated RBC (Bld) [#/Vol] 0 10*3/uL Normal 0-5 [facility] Comment on above: Performed By: #### L 500.2500, L100.0100 #### [facility] [address] [place], [address] Platelet mean volume (Bld) [Entitic vol] 9.8 fL Normal 6.2-12.0 [facility] Comment on above: Performed By: #### L 500.2500, L100.0100 #### [facility] [address] [place], [address] Platelets (Bld) [#/Vol] 252 10*3/uL Normal 150-450 [facility] Comment on above: Performed By: #### L 500.2500, L100.0100 #### [facility] [address] [place], [address] RBC (Bld) [#/Vol] 4.40 10*6/uL Normal 4.2-5.4 [facility] Comment on above: Performed By: #### L 500.2500, L100.0100 #### [facility] [address] [place], [address] RDW SD 46.8 fl High 35.1-43.9 [facility] Comment on above: Performed By: #### L 500.2500, L100.0100 #### [facility] [address] [place], [address] WBC (Bld) [#/Vol] 11.8 10*3/uL High 4.4-11.0 [facility] Comment on above: Performed By: #### L 500.2500, L100.0100 #### [facility] [address] [place], [address] Absolute Lymph 1.01 X10 3/uL Normal 0.83-4.51 [facility] Comment on above: Performed By: #### L 500.2500, L100.0100 #### [facility] [address] [place], [address] Absolute Neut 8.7 X10 3/uL High 2.0-7.7 [facility] Comment on above: Performed By: #### L 500.2500, L100.0100 #### [facility] [address] [place], [address] Basophils/100 WBC (Bld) 0.2 % Normal 0-1 [facility] Comment on above: Performed By: #### L 500.2500, L100.0100 #### [facility] [address] [place], [address] Eosinophils/100 WBC (Bld) 0.0 % Normal 0-5 [facility] Comment on above: Performed By: #### L 500.2500, L100.0100 #### [facility] [address] [place], [address] Erythrocyte distribution width (RBC) [Ratio] 13.0 % Normal 11.6-14.6 [facility] Comment on above: Performed By: #### L 500.2500, L100.0100 #### [facility] [address] [place], [address] Hematocrit (Bld) [Volume fraction] 41.1 % Normal 37-47 [facility] Comment on above: Performed By: #### L 500.2500, L100.0100 #### [facility] [address] [place], [address] Hemoglobin (Bld) [Mass/Vol] 13.9 g/dL Normal 12.0-15.0 [facility] Comment on above: Performed By: #### L 500.2500, L100.0100 #### [facility] [address] [place], [address] IG% 0.500 Normal 0.0-0.9 [facility] Comment on above: Result Comment: IG% - Immature Granulocytes (promyelocytes, myelocytes and metamyelocytes) > 1% indicates that a LEFT SHIFT is Present. Performed By: #### L 500.2500, L100.0100 #### [facility] [address] [place], [address] Lymphocytes/100 WBC (Bld) 9.8 % Low 19-41 [facility] Comment on above: Performed By: #### L 500.2500, L100.0100 #### [facility] [address] [place], [address] MCH (RBC) [Entitic mass] 32.3 pg High 27.0-32.0 [facility] Comment on above: Performed By: #### L 500.2500, L100.0100 #### [facility] [address] [place], [address] MCHC (RBC) [Mass/Vol] 33.8 g/dL Normal 32-36 [facility] Comment on above: Performed By: #### L 500.2500, L100.0100 #### [facility] [address] [place], [address] MCV (RBC) [Entitic vol] 95.6 fL Normal 81-99 [facility] Comment on above: Performed By: #### L 500.2500, L100.0100 #### [facility] [address] [place], [address] Monocytes/100 WBC (Bld) 5.8 % Normal 0-10 [facility] Comment on above: Performed By: #### L 500.2500, L100.0100 #### [facility] [address] [place], [address] Neutrophils/100 WBC (Bld) 83.7 % High 47-70 [facility] Comment on above: Performed By: #### L 500.2500, L100.0100 #### [facility] [address] [place], [address] Nucleated RBC (Bld) [#/Vol] 0 10*3/uL Normal 0-5 [facility] Comment on above: Performed By: #### L 500.2500, L100.0100 #### [facility] [address] [place], [address] Platelet mean volume (Bld) [Entitic vol] 9.7 fL Normal 6.2-12.0 [facility] Comment on above: Performed By: #### L 500.2500, L100.0100 #### [facility] [address] [place], [address] Platelets (Bld) [#/Vol] 245 10*3/uL Normal 150-450 [facility] Comment on above: Performed By: #### L 500.2500, L100.0100 #### [facility] [address] [place], [address] RBC (Bld) [#/Vol] 4.30 10*6/uL Normal 4.2-5.4 [facility] Comment on above: Performed By: #### L 500.2500, L100.0100 #### [facility] [address] [place], [address] RDW SD 45.5 fl High 35.1-43.9 [facility] Comment on above: Performed By: #### L 500.2500, L100.0100 #### [facility] [address] [place], [address] WBC (Bld) [#/Vol] 10.3 10*3/uL Normal 4.4-11.0 [facility] Comment on above: Performed By: #### L 500.2500, L100.0100 #### [facility] [address] [place], [address] Chest PA and Lateralon 10-16 Chest PA and Lateral [facility] Imaging Services [address] [place] [address] Chest PA and Lateral MR#: [id number] Acct: [id number] Name: CARINE BARBA Rep #: [id number] : 1990 F 34 From: Magdiel field MD PCP: Care Physician,No Primary Status: ADM IN Study: Chest PA and Lateral Date of Exam: 10/16/24 Exam# [id number] Ordering Dr: Fletcher Marie DO [id number] INDICATION: Shortness of breath EXAMINATION/TECHNIQUE : X-RAY [...] Fletcher Marie DO; No Primary Care Physician Location Analyst: Signed Normal [facility] Chest PA and Lateral [facility] Imaging Services [address] [place] [address] Chest PA and Lateral MR#: [id number] Acct: [id number] Name: CARINE BARBA Rep #: [id number] : 1990 F 34 From: Jason Dumont MD PCP: Care Physician,No Primary Status: REG ER Study: Chest PA and Lateral Date of Exam: 10/16/24 Exam# [id number] Ordering Dr: Arjun Lagunas DO [id number] EXAM: XR CHEST, 2 VIEWS CLINICAL INDICATION: [...] Arjun Lagunas, DO; No Primary Care Physician Location Analyst: Signed Normal [facility] Emergency Department Summary on 10-16-2024 Emergency Department Summary [facility] Medical Records Department [address] [place] [address] Emergency Department Summary 10/16/24 MR#: [id number] Acct: [id number] Name: CARINE BARBA Rep #: [id number] : 1990 34 From: Fletcher Marie DO [...] intact Psych: Cooperative, appropriate mood and affect [facility] Medical History Asthma Home Medications ???Medication ???Instructions [...] endorsing impro (more content not included)... Normal [facility] Emergency Department Summary [facility] Medical Records Department [address] [place] [address] Emergency Department Summary 10/16/24 MR#: [id number] Acct: [id number] Name: CARINE BARBA Rep #: [id number] : 1990 34 From: Arjun Lagunas DO [...] evaluation management. Patient denies any recent travels. [facility] Medical History Asthma Home Medications ???Medication ???Instructions [...] following commands knew that she was at [facility] years 2023 Skin: Warm, dry, intact Const [...] states that (more content not included)... Normal [facility] H AND P Exam - [facility] 10-16-2024 H&P Exam - Hospitalist [facility] Medical Records Department [address] [place] [address] H P Exam - Hospitalist 10/16/243 MR#: [id number] Acct: [id number] Name: CARINE BARBA Rep #: [id number] : 1990 34 From: Nimo Corral DO PCP: Care Physician,No Primary Status:DIS IN Location: [facility] [place] Date of Admission: 10/17/24 Date [...] an albuterol inhaler who now re-presents to [facility] ER complaining of continued shortness of breath, [...] is a same day admission and discharge. [facility] Medical History Asthma Home Medications ???Medication ???Instructions [...] 21:28 Tem (more content not included)... Normal [facility] Absolute lymphocyte counton 03-23-2022 Lymphocytes Auto (Unsp spec) [#/Vol] 1.63 10*3/uL 0.83-4.51 [facility] Work Phone: Basophil percentageon 2021 Basophils/100 WBC (Bld) 0.2 % 0-1 [facility] Work Phone: Chloride [Moles/Vol] 104 mmol/L 98-107 [facility] Work Phone: Eosinophils/100 WBC (Bld) 0.1 % 0-5 [facility] Work Phone: Glucose [Mass/Vol] 156 mg/dL 74-106 [facility] Work Phone: Comment on above: Fasting Glucose resu lt greater than or equal to 126 mg/dL suggests DIABETES MELLITUS per A.D.A. criteria. Neutrophils (Bld) [#/Vol] 6.8 10*3/uL 2.0-7.7 [facility] Work Phone: Neutrophils/100 WBC (Bld) 76.2 % 47-70 [facility] Work Phone: Potassium [Moles/Vol] 3.2 mmol/L 3.5-5.1 [facility] Work Phone: Sodium [Moles/Vol] 136 mmol/L 136-145 [facility] Work Phone: WBC (Bld) [#/Vol] 9.0 10*3/uL 4.4-11.0 [facility] Work Phone: Blood erythrocytes count (nu mber/volume)on 03-23-2022 RBC (Bld) [#/Vol] 4.48 10*6/uL 4.2-5.4 [facility] Work Phone: Blood hemoglobin measurement (mass/volume)on 03-23-2022 Hemoglobin (Bld) [Mass/Vol] 14.3 g/dL 12.0-15.0 [facility] Work Phone: Blood lymphocytes/100 leukoc yteson 03-23-2022 Lymphocytes/100 WBC (Bld) 18.2 % 19-41 [facility] Work Phone: Blood monocytes/100 leukocyt eson 03-23-2022 Monocytes/100 WBC (Bld) 5.0 % 0-10 [facility] Work Phone: Blood platelet mean volumeon 03-23-2022 Platelet mean volume (Bld) [Entitic vol] 10.4 fL 6.2-12.0 [facility] Work Phone: Determination of erythrocyte mean corpuscular volume (MCV)on 03-23-2022 MCV (RBC) [Entitic vol] 93.8 fL 81-99 [facility] Work Phone: Hematocrit Auto (Bld) [Volum e fraction]on 03-23-2022 Hematocrit (Bld) [Volume fraction] 42.0 % 37-47 [facility] Work Phone: Laboratory - Chemistry and C hemistry - challengeon 03-23-2022 CO2 [Moles/Vol] 26.0 mmol/L 21.0-32.0 [facility] Work Phone: Urea nitrogen/Creatinine [Mass ratio] 11.5 mg/mg 10-20 [facility] Work Phone: Laboratory - Hematology and Cell countson 03-23-2022 Erythrocyte distribution width (RBC) [Entitic vol] 43.4 fL 35.1-43.9 [facility] Work Phone: Erythrocyte distribution width (RBC) [Ratio] 12.6 % 11.6-14.6 [facility] Work Phone: Immature granulocytes/100 WBC (Bld) 0.300 % 0.0-0.9 [facility] Work Phone: Comment on above: IG% - Immature Granu locytes (promyelocytes, myelocytes and metamyelocytes) > 1% indicates that a LEFT SHIFT is Present. MCH (RBC) [Entitic mass] 31.9 pg 27.0-32.0 [facility] Work Phone: Nucleated RBC/100 WBC (Bld) [Ratio] 0 % 0-5 [facility] Work Phone: MCHC Auto (RBC) [Mass/Vol]on 03-23-2022 MCHC (RBC) [Mass/Vol] 34.0 g/dL 32-36 [facility] Work Phone: No Panel Informationon 03-23 D-Dimer Quantitative (PE/DVT) < 0.27 FEU/ug/m 0.27-0.49 [facility] Work Phone: Comment on above: NORMAL D-Dimer level (<0.50) indicates no DVT or PE. Estimated Creatinine Clearance Calc 101.62 ml/min [facility] Work Phone: Estimated GFR (MDRD) Amer 111 mL/min >60 [facility] Work Phone: Comment on above: GFR Calc Estimated GFR (MDRD) Non-Af Amer 91 mL/min >60 [facility] Work Phone: Comment on above: Non- GFR Calc Troponin I High Sensitivity < 3 pg/mL 3.0-54.0 [facility] Work Phone: Comment on above: Please Note: New [place] t Units and Gender Specific Reference Ranges. For more information see Policy Stat Procedure Flippin High Sensitivity Troponin (TNIH) and attachments. Platelets bldon 03-23-2022 Platelets (Bld) [#/Vol] 256 10*3/uL 150-450 [facility] Work Phone: Serum or plasma calcium emily urement (mass/volume)on 03-23-2022 Calcium [Mass/Vol] 9.1 mg/dL 8.5-10.1 [facility] Work Phone: Serum or plasma creatinine m easurement (mass/volume)on 03-23-2022 Creatinine [Mass/Vol] 0.78 mg/dL 0.55-1.02 [facility] Work Phone: Comment on above: The validity of the calculated GFR & GFRAA in patients over 70 years has not been determined. Clinical correlation is essential. Serum or plasma urea nitroge n measurement (mass/volume)on 03-23-2022 Urea nitrogen [Mass/Vol] 9 mg/dL 7-18 [facility] Work Phone: Thin prep Papanicolaou smear with manual screeningon 03-23-2022 Thin prep Papanicolaou smear with manual screening 6 5-15 [facility] Work Phone: Basic Metabolic Panelon 06-24 Anion gap [Moles/Vol] 9 Normal [facility] Comment on above: Performed By: #### H [facility], BMP3 #### [facility] [address] [place] [address] Calcium [Mass/Vol] 9.0 mg/dL Normal 8.4-10.4 [facility] Comment on above: Performed By: #### H RADHA BMP3 #### [facility] [address] [place] [address] CO2 [Moles/Vol] 25 mmol/L Normal 22-30 [facility] Comment on above: Performed By: #### H RADHA, BMP3 #### [facility] [address] [place] [address] Creatinine [Mass/Vol] 0.70 mg/dL Normal 0.52-1.25 [facility] [place] [facility] Comment on above: Performed By: #### H RADHA BMP3 #### [facility] [address] [facility] [address] GFR/1.73 sq M predicted among blacks MDRD (S/P/Bld) [Vol rate/Area] mL/min/{1.73_m2} Normal >60 [facility] Comment on above: Performed By: #### H RADHA BMP3 #### [facility] [address] [place] [address] GFR/1.73 sq M predicted among non-blacks MDRD (S/P/Bld) [Vol rate/Area] mL/min/{1.73_m2} Normal >60 [facility] Comment on above: Result Comment: KDIG [...] By: #### H RADHA, BMP3 #### [facility] [address] [place] [address] Glucose [Mass/Vol] 133 mg/dL High 70-100 [facility] Comment on above: Performed By: #### H OLLIE GARCIA3 #### [facility] [address] [place] [address] Urea nitrogen [Mass/Vol] 11 mg/dL Normal 7-20 [facility] Comment on above: Performed By: #### H RADHA BMP3 #### [facility] [address] [place] [address] Chloride [Moles/Vol] 104 mmol/L Normal 98-107 [facility] Comment on above: Performed By: #### H OLLIE GARCIA3 #### [facility] [address] [place] [address] Potassium [Moles/Vol] 4.1 mmol/L Normal 3.5-5.1 [facility] [place] [facility] Comment on above: Performed By: #### OLLIE DIALLO3 #### [facility] [address] [place] [address] Sodium [Moles/Vol] 138 mmol/L Normal 135-145 [facility] Comment on above: Performed By: #### H OLLIE GARCIA3 #### [facility] [address] [place] [address] Anion gap [Moles/Vol] 9 mmol/L [place], [place] Calcium [Mass/Vol] 9.0 mg/dL 8.4 - 10. 4 mg/dL [place] Chloride [Moles/Vol] 104 mmol/L 98 - 10 7 mmol/L [place] CO2 [Moles/Vol] 25 mmol/L 22 - 30 mmol/L [place] Creatinine [Mass/Vol] 0.7 mg/dL 0.52 - 1.25 mg/dL [place] EGFR IF NonAfrican [place] >90.0 >60 mL/min [place] Comment on above: KDIGO guidelines pro [...] MDRD (S/P/Bld) [Vol rate/Area] mL/min/{1.73_m2} >60 mL/min [place] Glucose [Mass/Vol] 133 mg/dL High 70 - 100 mg/dL [place] Interpretation and review of laboratory results Abnormal [place] Potassium [Moles/Vol] 4.1 mmol/L 3.5 - 5.1 mmol/L [place] Sodium [Moles/Vol] 138 mmol/L 135 - 145 mmol/L [place] Urea nitrogen [Mass/Vol] 11 mg/dL 7 - 20 mg/dL [place] Test Performed by [facility], [address] , [place], [place] [id number] [place] [address] D-Dimer, Innovanceon 020 D-Dimer, Innovance 0.32 mg/L Normal <0.19-0.50 [facility] Comment on above: Result Comment: Inno singleton D-Dimer values of <0.50 mg/L FEU can be used in combination with a pre-test probability model (e.g. Well's) to exclude pulmonary embolism (PE) disease, as well as an aid in the diagnosis of deep vein thrombosis (DVT). Performed By: #### H OLLIE GARCIA3 #### [facility] [address] [place] [address] D-Dimer, Quantitativeon 06-24 D-Dimer, Quant 0.32 mg/L <0.19 - 0.50 [place], [place] Comment on above: Innovance D-Dimer va lues of <0.50 mg/L FEU can be used in combination with a pre-test probability model (e.g. Well's) to exclude pulmonary embolism (PE) disease, as well as an aid in the diagnosis of deep vein thrombosis (DVT). Test Performed by [facility], [address] [place], [place] [address] , [place], [place] [id number] [place] [address] Hemogram (CBC) w/Auto Diffon 07-05-2020 Absolute Baso # 0.0 10*3/uL 0 - 0.2 10*3/uL [place] Absolute Neut # 5.2 10*3/uL 1.8 - 7 10*3/uL [place] Basophils/100 WBC (Bld) 0.5 % 0 - 2 % [place] Eosinophils (Bld) [#/Vol] 0.3 10*3/uL 0 - 0.5 10*3/uL [place] Eosinophils/100 WBC (Bld) 4.6 % 1 - 6 % [place] Erythrocyte distribution width (RBC) [Ratio] 13.7 % 11.5 - 14.5 % [place] Granulocytes/100 WBC (Bld) 70.3 % 40 - 80 % [place] Hematocrit (Bld) [Volume fraction] 40.1 % 35 - 47 % [place] Hemoglobin (Bld) [Mass/Vol] 13.8 g/dL 11.7 - 16 g/dL [place] Interpretation and review of laboratory results Abnormal [place] Lymphocytes (Bld) [#/Vol] 1.4 10*3/uL 1 - 4.3 10*3/uL [place] Lymphocytes/100 WBC (Bld) 18.6 % Low 20 - 40 % [place] MCH (RBC) [Entitic mass] 32.7 pg 26 - 34 pg [place] MCHC (RBC) [Mass/Vol] 34.4 % 32 - 36 % [place] MCV (RBC) [Entitic vol] 95.1 fL 79 - 98 fL [place] Monocytes (Bld) [#/Vol] 0.4 10*3/uL 0 - 0.8 10*3/uL [place] Monocytes/100 WBC (Bld) 6.0 % 2 - 10 % [place] Platelet mean volume (Bld) [Entitic vol] 8.4 fL 7.4 - 10.4 fL [place], [place] Platelets (Bld) [#/Vol] 201 10*3/uL 140 - 440 10*3/uL [place] RBC (Bld) [#/Vol] 4.21 10*6/uL 3.8 - 5.2 10*6/uL [place] WBC (Bld) [#/Vol] 7.4 10*3/uL 3.6 - 10.7 10*3/uL [place] Test Performed by [facility], [address] Hemogram w/ Autodiffon 07-05 Abs Baso Cnt 0.0 10*3/uL Normal 0.0-0.2 [facility] Comment on above: Performed By: #### H RADHA BMP3 #### [facility] [address] [facility] [address] Abs Neutrophile Cnt 5.2 10*3/uL Normal 1.8-7.0 [facility] Comment on above: Performed By: #### H RADHA BMP3 #### [facility] [address] [place] [address] Basophils/100 WBC (Bld) 0.5 % Normal 0.0-2.0 [facility] Comment on above: Performed By: #### H EMDMeagan BMP3 #### [facility] [address] [place] [address] Eosinophils (Bld) [#/Vol] 0.3 10*3/uL Normal 0.0-0.5 [facility] Comment on above: Performed By: #### H EMDF BMP3 #### [facility] [address] [place] [address] Eosinophils/100 WBC (Bld) 4.6 % Normal 1.0-6.0 [facility] Comment on above: Performed By: #### H RADHA BMP3 #### [facility] [address] [place] [address] Erythrocyte distribution width (RBC) [Ratio] 13.7 % Normal 11.5-14.5 [facility] Comment on above: Performed By: #### H RADHA BMP3 #### [facility] [address] [place] [address] Granulocytes/100 WBC (Bld) 70.3 % Normal 40.0-80.0 [facility] Comment on above: Performed By: #### H RADHA BMP3 #### [facility] [address] [place] [address] Hematocrit (Bld) [Volume fraction] 40.1 % Normal 35.0-47.0 [facility] Comment on above: Performed By: #### H RADHA BMP3 #### [facility] [address] [place] [address] Hemoglobin (Bld) [Mass/Vol] 13.8 g/dL Normal 11.7-16.0 [facility] Comment on above: Performed By: #### H RADHA, BMP3 #### [facility] [address] [place] [address] Lymphocytes (Bld) [#/Vol] 1.4 10*3/uL Normal 1.0-4.3 [facility] Comment on above: Performed By: #### H EMDF, BMP3 #### [facility] [address] [place] [address] Lymphocytes/100 WBC (Bld) 18.6 % Low 20.0-40.0 [facility] Comment on above: Performed By: #### H EMDF, BMP3 #### [facility] [address] [place] [address] MCH (RBC) [Entitic mass] 32.7 pg Normal 26.0-34.0 [facility] Comment on above: Performed By: #### H EMDF, BMP3 #### [facility] [address] [place] [address] MCHC (RBC) [Mass/Vol] 34.4 % Normal 32.0-36.0 [facility] [place] [facility] Comment on above: Performed By: #### H EMDF, BMP3 #### [facility] [address] [place] [address] MCV (RBC) [Entitic vol] 95.1 fL Normal 79.0-98.0 [facility] Comment on above: Performed By: #### H EMDF, BMP3 #### [facility] [address] [place] [address] Monocytes (Bld) [#/Vol] 0.4 10*3/uL Normal 0.0-0.8 [facility] Comment on above: Performed By: #### H EMDF, BMP3 #### [facility] [address] [place] [address] Monocytes/100 WBC (Bld) 6.0 % Normal 2.0-10.0 [facility] Comment on above: Performed By: #### H EMDF, BMP3 #### [facility] [address] [place] [address] Platelet mean volume (Bld) [Entitic vol] 8.4 fL Normal 7.4-10.4 [facility] Comment on above: Performed By: #### H EMDF, BMP3 #### [facility] [address] [place] [address] Platelets (Bld) [#/Vol] 201 10*3/uL Normal 140-440 [facility] Comment on above: Performed By: #### H EMDF, BMP3 #### [facility] [address] [place] [address] RBC (Bld) [#/Vol] 4.21 10*6/uL Normal 3.80-5.20 [facility] Comment on above: Performed By: #### H EMDF, BMP3 #### [facility] [address] [place] [address] WBC (Bld) [#/Vol] 7.4 10*3/uL Normal 3.6-10.7 [facility] Comment on above: Performed By: #### H RADHA BMP3 #### [facility] [address] [place] [address] Troponin Ion 07-05-2020 Troponin I.cardiac [Mass/Vol] ng/mL Normal 0.000-0.034 [facility] Comment on above: Result Comment: . Performed By: #### Aidan GARCIA BMP3 #### [facility] [address] [place] [address] Troponin x1on 07-05-2020 Troponin I.cardiac [Mass/Vol] ng/mL 0 - 0.034 ng/mL [place] Comment on above: . Test Performed by [facility], [address] , [place], [place] [id number] [place] [address] Basic Metabolic Panelon 05-24 Anion gap [Moles/Vol] 10 Normal [facility] [place] [facility] Comment on above: Performed By: #### H RADHA BMP3, DDI2 #### [facility] [address] [place] [address] Calcium [Mass/Vol] 9.2 mg/dL Normal 8.4-10.4 [facility] Comment on above: Performed By: #### H RADHA BMP3, DDI2 #### [facility] [address] [place] [address] CO2 [Moles/Vol] 25 mmol/L Normal 22-30 [facility] Comment on above: Performed By: #### H RADHA, BMP3, DDI2 #### [facility] [address] [place] [address] Creatinine [Mass/Vol] 0.69 mg/dL Normal 0.52-1.25 [facility] [place] [facility] Comment on above: Performed By: #### H RADHA, BMP3, DDI2 #### [facility] [address] [place] [address] GFR/1.73 sq M predicted among blacks MDRD (S/P/Bld) [Vol rate/Area] mL/min/{1.73_m2} Normal >60 [facility] Comment on above: Performed By: #### H OLLIE GARCIA3, DDI2 #### [facility] [address] [place] [address] GFR/1.73 sq M predicted among non-blacks MDRD (S/P/Bld) [Vol rate/Area] mL/min/{1.73_m2} Normal >60 [facility] Comment on above: Result Comment: KDIG [...] #### H OLLIE GARCIA3, DDI2 #### [facility] [address] [place] [address] Glucose [Mass/Vol] 99 mg/dL Normal 70-100 [facility] Comment on above: Performed By: #### H OLLIE GARCIA3, DDI2 #### [facility] [address] [place] [address] Urea nitrogen [Mass/Vol] 10 mg/dL Normal 7-20 [facility] Comment on above: Performed By: #### H OLLIE GRACIA3, DDI2 #### [facility] [address] [place] [address] Chloride [Moles/Vol] 104 mmol/L Normal 98-107 [facility] Comment on above: Performed By: #### H RADHA BMP3, DDI2 #### [facility] [address] [place] [address] Potassium [Moles/Vol] 3.9 mmol/L Normal 3.5-5.1 [facility] [place] [facility] Comment on above: Performed By: #### H MIQUEL GARCIA, DDI2 #### [facility] [address] [place] [address] Sodium [Moles/Vol] 139 mmol/L Normal 135-145 [facility] Comment on above: Performed By: #### H MIQUEL GARCIA, DDI2 #### [facility] [address] [place] [address] Anion gap [Moles/Vol] 10 mmol/L [place] Calcium [Mass/Vol] 9.2 mg/dL 8.4 - 10. 4 mg/dL [place], [place] Chloride [Moles/Vol] 104 mmol/L 98 - 10 7 mmol/L [place] CO2 [Moles/Vol] 25 mmol/L 22 - 30 mmol/L [place] Creatinine [Mass/Vol] 0.69 mg/dL 0.52 - 1.25 mg/dL [place] EGFR IF NonAfrican [place] >90.0 >60 mL/min [place] Comment on above: KDIGO guidelines pro [...] MDRD (S/P/Bld) [Vol rate/Area] mL/min/{1.73_m2} >60 mL/min [place] Glucose [Mass/Vol] 99 mg/dL 70 - 100 mg/dL [place] Potassium [Moles/Vol] 3.9 mmol/L 3.5 - 5.1 mmol/L [place] Sodium [Moles/Vol] 139 mmol/L 135 - 145 mmol/L [place] Urea nitrogen [Mass/Vol] 10 mg/dL 7 - 20 mg/dL [place] Test Performed by [facility], [facility] [address] , [address] CR Chest PA/LATon 06-08-2020 CR Chest PA/LAT Patient Name: CARINE BARBA Diagnostic Radiology Exam Date/Time 06/08/2020 03:45:52 EDT Exam CR Chest PA/LAT Ordering Physician MD JIM, [facility] Accession Number [id number] CPT4 Codes 49690 () Reason For Exam sob Report CHEST [...] Date and Time: 06/08/2020 4:14 Normal [facility] D-Dimer, Innovanceon 020 D-Dimer, Innovance 0.32 mg/L Normal <0.19-0.50 [facility] Comment on above: Result Comment: Inno singleton D-Dimer values of <0.50 mg/L FEU can be used in combination with a pre-test probability model (e.g. Well's) to exclude pulmonary embolism (PE) disease, as well as an aid in the diagnosis of deep vein thrombosis (DVT). Performed By: #### H EMDF, BMP3, DDI2 #### [facility] [address] [place] [address] D-Dimer, Quantitativeon 05-24 D-Dimer, Quant 0.32 mg/L <0.19 - 0.50 [place] Comment on above: Innovance D-Dimer va lues of <0.50 mg/L FEU can be used in combination with a pre-test probability model (e.g. Well's) to exclude pulmonary embolism (PE) disease, as well as an aid in the diagnosis of deep vein thrombosis (DVT). Test Performed by [facility], [address] , [place], [place] [address] [place], [place] Hemogram (CBC) w/Auto Diffon 06-08-2020 Absolute Baso # 0.0 10*3/uL 0 - 0.2 10*3/uL [place] Absolute Neut # 4.4 10*3/uL 1.8 - 7 10*3/uL [place] Basophils/100 WBC (Bld) 0.5 % 0 - 2 % [place] Eosinophils (Bld) [#/Vol] 0.6 10*3/uL High 0 - 0.5 10*3/uL [place] Eosinophils/100 WBC (Bld) 7.6 % High 1 - 6 % [place] Erythrocyte distribution width (RBC) [Ratio] 14.0 % 11.5 - 14.5 % [place] Granulocytes/100 WBC (Bld) 57.2 % 40 - 80 % [place] Hematocrit (Bld) [Volume fraction] 40.4 % 35 - 47 % [place] Hemoglobin (Bld) [Mass/Vol] 13.8 g/dL 11.7 - 16 g/dL [place] Interpretation and review of laboratory results Abnormal [place] Lymphocytes (Bld) [#/Vol] 2.2 10*3/uL 1 - 4.3 10*3/uL [place] Lymphocytes/100 WBC (Bld) 28.3 % 20 - 40 % [place] MCH (RBC) [Entitic mass] 32.7 pg 26 - 34 pg [place] MCHC (RBC) [Mass/Vol] 34.2 % 32 - 36 % [place] MCV (RBC) [Entitic vol] 95.6 fL 79 - 98 fL [place] Monocytes (Bld) [#/Vol] 0.5 10*3/uL 0 - 0.8 10*3/uL [place] Monocytes/100 WBC (Bld) 6.4 % 2 - 10 % [place] Platelet mean volume (Bld) [Entitic vol] 8.2 fL 7.4 - 10.4 fL [place] Platelets (Bld) [#/Vol] 249 10*3/uL 140 - 440 10*3/uL [place] RBC (Bld) [#/Vol] 4.22 10*6/uL 3.8 - 5.2 10*6/uL [place] WBC (Bld) [#/Vol] 7.7 10*3/uL 3.6 - 10.7 10*3/uL [place] Test Performed by [facility], [address] [place], [place] [id number] [place] [address] Hemogram w/ Autodiffon 06-08 Abs Baso Cnt 0.0 10*3/uL Normal 0.0-0.2 [facility] Comment on above: Performed By: #### H EMDF, BMP3, DDI2 #### [facility] [address] [place] [address] Abs Neutrophile Cnt 4.4 10*3/uL Normal 1.8-7.0 [facility] Comment on above: Performed By: #### H EMDF, BMP3, DDI2 #### [facility] [address] [place] [address] Basophils/100 WBC (Bld) 0.5 % Normal 0.0-2.0 [facility] Comment on above: Performed By: #### H EMDF, BMP3, DDI2 #### [facility] [address] [place] [address] Eosinophils (Bld) [#/Vol] 0.6 10*3/uL High 0.0-0.5 [facility] Comment on above: Performed By: #### H EMDF, BMP3, DDI2 #### [facility] [address] [place] [address] Eosinophils/100 WBC (Bld) 7.6 % High 1.0-6.0 [facility] Comment on above: Performed By: #### H EMDF, BMP3, DDI2 #### [facility] [address] [place] [address] Erythrocyte distribution width (RBC) [Ratio] 14.0 % Normal 11.5-14.5 [facility] Comment on above: Performed By: #### H EMDF, BMP3, DDI2 #### [facility] [address] [place] [address] Granulocytes/100 WBC (Bld) 57.2 % Normal 40.0-80.0 [facility] Comment on above: Performed By: #### H EMDF, BMP3, DDI2 #### [facility] [address] [place] [address] Hematocrit (Bld) [Volume fraction] 40.4 % Normal 35.0-47.0 [facility] Comment on above: Performed By: #### H EMDF, BMP3, DDI2 #### [facility] [address] [place] [address] Hemoglobin (Bld) [Mass/Vol] 13.8 g/dL Normal 11.7-16.0 [facility] Comment on above: Performed By: #### H EMDF, BMP3, DDI2 #### [facility] [address] [place] [address] Lymphocytes (Bld) [#/Vol] 2.2 10*3/uL Normal 1.0-4.3 [facility] Comment on above: Performed By: #### H EMDF, BMP3, DDI2 #### [facility] [address] [place] [address] Lymphocytes/100 WBC (Bld) 28.3 % Normal 20.0-40.0 [facility] Comment on above: Performed By: #### H EMDF, BMP3, DDI2 #### [facility] [address] [place] [address] MCH (RBC) [Entitic mass] 32.7 pg Normal 26.0-34.0 [facility] Comment on above: Performed By: #### H EMDF, BMP3, DDI2 #### [facility] [address] [place] [address] MCHC (RBC) [Mass/Vol] 34.2 % Normal 32.0-36.0 [facility] [place] [facility] Comment on above: Performed By: #### H EMDF, BMP3, DDI2 #### [facility] [address] [place] [address] MCV (RBC) [Entitic vol] 95.6 fL Normal 79.0-98.0 [facility] Comment on above: Performed By: #### H EMDF, BMP3, DDI2 #### [facility] [address] [place] [address] Monocytes (Bld) [#/Vol] 0.5 10*3/uL Normal 0.0-0.8 [facility] Comment on above: Performed By: #### H EMDF, BMP3, DDI2 #### [facility] [address] [place] [address] Monocytes/100 WBC (Bld) 6.4 % Normal 2.0-10.0 [facility] Comment on above: Performed By: #### H EMDF, BMP3, DDI2 #### [facility] [address] [place] [address] Platelet mean volume (Bld) [Entitic vol] 8.2 fL Normal 7.4-10.4 [facility] Comment on above: Performed By: #### H EMDF, BMP3, DDI2 #### [facility] [address] [place] [address] Platelets (Bld) [#/Vol] 249 10*3/uL Normal 140-440 [facility] Comment on above: Performed By: #### H EMDF, BMP3, DDI2 #### [facility] [address] [place] [address] RBC (Bld) [#/Vol] 4.22 10*6/uL Normal 3.80-5.20 [facility] Comment on above: Performed By: #### H EMDF, BMP3, DDI2 #### [facility] [address] [place] [address] WBC (Bld) [#/Vol] 7.7 10*3/uL Normal 3.6-10.7 [facility] Comment on above: Performed By: #### H EMDF, BMP3, DDI2 #### [facility] [address] [place] [address] Troponin Ion 06-08-2020 Troponin I.cardiac [Mass/Vol] ng/mL Normal 0.000-0.034 [facility] Comment on above: Result Comment: . Performed By: #### H EMDF, BMP3 #### [facility] [address] [place] [address] Troponin x1on 06-08-2020 Troponin I.cardiac [Mass/Vol] ng/mL 0 - 0.034 ng/mL [place] Comment on above: . Test Performed by [facility], [address] , [place], [place] [id number] [place] [address] XR CHEST (2 VW)on 06-08-2020 Patient Name: CARINE BARBA ---Diagnostic Radiology--- Exam Date/Time 06/08/2020 03:45:52 EDT Exam CR Chest PA/LAT Ordering Physician MD JIM, AN[facility] Accession Number [id number] CPT4 Codes 32155 () Reason For Exam sob Report CHEST [...] I Transcribed Date and Time: 06/08/2020 4:14 [place], [place], [facility] Incoming Radiology Results From [facility] - 06/08/2020 4:15 AM EDT Patient Name: CARINE BARBA ---Diagnostic Radiology--- Exam Date/Time 06/08/2020 03:45:52 EDT Exam CR Chest PA/LAT Ordering Physician MD JIM, [facility] Accession Number [id number] CPT4 Codes 42610 () Reason For Exam sob Report CHEST [...] I Transcribed Date and Time: 06/08/2020 4:14 [place], [place] Basic Metabolic Panelon 07-0 Anion gap [Moles/Vol] 13 Normal [facility] [place] [facility] Comment on above: Performed By: #### H EMDF BMP3 #### [facility] [address] [place] [address] Calcium [Mass/Vol] 8.8 mg/dL Normal 8.4-10.4 [facility] Comment on above: Performed By: #### H EMDF, BMP3 #### [facility] [address] [place] [address] CO2 [Moles/Vol] 22 mmol/L Normal 22-30 [facility] Comment on above: Performed By: #### H EMDF, BMP3 #### [facility] [address] [place] [address] Glucose [Mass/Vol] 121 mg/dL High 70-100 [facility] Comment on above: Performed By: #### H EMDF, BMP3 #### [facility] [address] [place] [address] Urea nitrogen [Mass/Vol] 18 mg/dL Normal 7-20 [facility] Comment on above: Performed By: #### H EMDF, BMP3 #### [facility] [address] [place] [address] Creatinine [Mass/Vol] 0.63 mg/dL Normal 0.52-1.25 [facility] [place] [facility] Comment on above: Performed By: #### H EMDF, BMP3 #### [facility] [address] [place] [address] GFR/1.73 sq M predicted among blacks MDRD (S/P/Bld) [Vol rate/Area] mL/min/{1.73_m2} Normal >60 [facility] Comment on above: Performed By: #### H EMDF, BMP3 #### [facility] [address] [place] [address] GFR/1.73 sq M predicted among non-blacks MDRD (S/P/Bld) [Vol rate/Area] mL/min/{1.73_m2} Normal >60 [facility] Comment on above: Result Comment: KDIG [...] By: #### H OLLIE GARCIA3 #### [facility] [address] [place] [address] Chloride [Moles/Vol] 106 mmol/L Normal 98-107 [facility] Comment on above: Performed By: #### H OLLIE GARCIA3 #### [facility] [address] [place] [address] Potassium [Moles/Vol] 3.4 mmol/L Low 3.5-5.1 [facility] [place] [facility] Comment on above: Performed By: #### H OLLIE GARCIA3 #### [facility] [address] [place] [place] [address] Sodium [Moles/Vol] 140 mmol/L Normal 135-145 [facility] Comment on above: Performed By: #### H OLLIE GARCIA3 #### [facility] [address] [place] [place] [address] Anion gap [Moles/Vol] 13 mmol/L [place] Calcium [Mass/Vol] 8.8 mg/dL 8.4 - 10. 4 mg/dL [place] Chloride [Moles/Vol] 106 mmol/L 98 - 10 7 mmol/L [place] CO2 [Moles/Vol] 22 mmol/L 22 - 30 mmol/L [place] Creatinine [Mass/Vol] 0.63 mg/dL 0.52 - 1.25 mg/dL [place] EGFR IF NonAfrican [place] >90.0 >60 mL/min [place] Comment on above: KDIGO guidelines pro [...] MDRD (S/P/Bld) [Vol rate/Area] mL/min/{1.73_m2} >60 mL/min [place] Glucose [Mass/Vol] 121 mg/dL High 70 - 100 mg/dL [place] Interpretation and review of laboratory results Abnormal [place] Potassium [Moles/Vol] 3.4 mmol/L Low 3.5 - 5.1 mmol/L [place] Sodium [Moles/Vol] 140 mmol/L 135 - 145 mmol/L [place] Urea nitrogen [Mass/Vol] 18 mg/dL 7 - 20 mg/dL [place] Test Performed by [facility], [address] [place] [address]. [address] CR Chest Portableon 04-29-20 20 CR Chest Portable Patient Name: CARINE BARBA Diagnostic Radiology Exam Date/Time 04/29/2020 10:39:47 EDT Exam CR Chest Portable Ordering Physician MD HUGHES DAVID L Accession Number [id number] CPT4 Codes 50358 () Reason For Exam respiratory distress Report [...] Date and Time: 04/29/2020 11:08 Normal [facility] Hemogram (CBC) w/Auto Diffon 04-29-2020 Absolute Baso # 0.1 10*3/uL 0 - 0.2 10*3/uL [place] Absolute Neut # 6.6 10*3/uL 1.8 - 7 10*3/uL [place] Basophils/100 WBC (Bld) 0.6 % 0 - 2 % [place] Eosinophils (Bld) [#/Vol] 1.0 10*3/uL High 0 - 0.5 10*3/uL [place] Eosinophils/100 WBC (Bld) 9.9 % High 1 - 6 % [place] Erythrocyte distribution width (RBC) [Ratio] 13.7 % 11.5 - 14.5 % [place] Granulocytes/100 WBC (Bld) 66.0 % 40 - 80 % [place] Hematocrit (Bld) [Volume fraction] 40.8 % 35 - 47 % [place] Hemoglobin (Bld) [Mass/Vol] 14.2 g/dL 11.7 - 16 g/dL [place] Interpretation and review of laboratory results Abnormal [place] Lymphocytes (Bld) [#/Vol] 1.8 10*3/uL 1 - 4.3 10*3/uL [place] Lymphocytes/100 WBC (Bld) 18.1 % Low 20 - 40 % [place] MCH (RBC) [Entitic mass] 33.0 pg 26 - 34 pg [place] MCHC (RBC) [Mass/Vol] 34.7 % 32 - 36 % [place] MCV (RBC) [Entitic vol] 95.0 fL 79 - 98 fL [place] Monocytes (Bld) [#/Vol] 0.5 10*3/uL 0 - 0.8 10*3/uL [place] Monocytes/100 WBC (Bld) 5.4 % 2 - 10 % [place] Platelet mean volume (Bld) [Entitic vol] 8.4 fL 7.4 - 10.4 fL [place] Platelets (Bld) [#/Vol] 237 10*3/uL 140 - 440 10*3/uL [place] RBC (Bld) [#/Vol] 4.30 10*6/uL 3.8 - 5.2 10*6/uL [place] WBC (Bld) [#/Vol] 10.0 10*3/uL 3.6 - 10.7 10*3/uL [place] Test Performed by [facility], [address] , [place], [place] [address] [place] Hemogram w/ Autodiffon 04-29 Abs Baso Cnt 0.1 10*3/uL Normal 0.0-0.2 [facility] Comment on above: Performed By: #### H EMDF, BMP3 #### [facility] [address] [place] [address] Abs Neutrophile Cnt 6.6 10*3/uL Normal 1.8-7.0 [facility] Comment on above: Performed By: #### H EMDF, BMP3 #### [facility] [address] [place] [address] Basophils/100 WBC (Bld) 0.6 % Normal 0.0-2.0 [facility] Comment on above: Performed By: #### H EMDF, BMP3 #### [facility] [address] [place] [address] Eosinophils (Bld) [#/Vol] 1.0 10*3/uL High 0.0-0.5 [facility] Comment on above: Performed By: #### H EMDF, BMP3 #### [facility] [address] [place] [address] Eosinophils/100 WBC (Bld) 9.9 % High 1.0-6.0 [facility] Comment on above: Performed By: #### H EMDF, BMP3 #### [facility] [address] [place] [address] Erythrocyte distribution width (RBC) [Ratio] 13.7 % Normal 11.5-14.5 [facility] Comment on above: Performed By: #### H EMDF, BMP3 #### [facility] [address] [place] [address] Granulocytes/100 WBC (Bld) 66.0 % Normal 40.0-80.0 [facility] Comment on above: Performed By: #### H EMDF, BMP3 #### [facility] [address] [place] [address] Hematocrit (Bld) [Volume fraction] 40.8 % Normal 35.0-47.0 [facility] Comment on above: Performed By: #### H EMDF, BMP3 #### [facility] [address] [place] [address] Hemoglobin (Bld) [Mass/Vol] 14.2 g/dL Normal 11.7-16.0 [facility] Comment on above: Performed By: #### H EMDF, BMP3 #### [facility] [address] [place] [address] Lymphocytes (Bld) [#/Vol] 1.8 10*3/uL Normal 1.0-4.3 [facility] Comment on above: Performed By: #### H EMDF, BMP3 #### [facility] [address] [place] [address] Lymphocytes/100 WBC (Bld) 18.1 % Low 20.0-40.0 [facility] Comment on above: Performed By: #### H EMDF, BMP3 #### [facility] [address] [place] [address] MCH (RBC) [Entitic mass] 33.0 pg Normal 26.0-34.0 [facility] Comment on above: Performed By: #### H EMDF, BMP3 #### [facility] [address] [place] [address] MCHC (RBC) [Mass/Vol] 34.7 % Normal 32.0-36.0 [facility] [place] [facility] Comment on above: Performed By: #### H EMDF, BMP3 #### [facility] [address] [place] [address] MCV (RBC) [Entitic vol] 95.0 fL Normal 79.0-98.0 [facility] Comment on above: Performed By: #### H RADHA BMP3 #### [facility] [address] [place] [address] Monocytes (Bld) [#/Vol] 0.5 10*3/uL Normal 0.0-0.8 [facility] Comment on above: Performed By: #### H RADHA BMP3 #### [facility] [address] [place] [address] Monocytes/100 WBC (Bld) 5.4 % Normal 2.0-10.0 [facility] Comment on above: Performed By: #### H RADHA BMP3 #### [facility] [address] [place] [address] Platelet mean volume (Bld) [Entitic vol] 8.4 fL Normal 7.4-10.4 [facility] Comment on above: Performed By: #### Aidan GARCIA BMP3 #### [facility] [address] [place] [address] Platelets (Bld) [#/Vol] 237 10*3/uL Normal 140-440 [facility] Comment on above: Performed By: #### H RADHA BMP3 #### [facility] [address] [place] [address] RBC (Bld) [#/Vol] 4.30 10*6/uL Normal 3.80-5.20 [facility] Comment on above: Performed By: #### Aidan GARCIA BMP3 #### [facility] [address] [place] [address] WBC (Bld) [#/Vol] 10.0 10*3/uL Normal 3.6-10.7 [facility] Comment on above: Performed By: #### H RADHA BMP3 #### [facility] [address] [place] [address] XR CHEST PORTABLEon 04-29-20 20 Tomer, [facility] Incoming Radiology Results From [facility] - 04/29/2020 11:08 AM EDT Patient Name: CARINE BARBA ---Diagnostic Radiology--- Exam Date/Time 04/29/2020 10:39:47 EDT Exam CR Chest Portable Ordering Physician MD HUGHES DAVID L Accession Number [id number] CPT4 Codes 40174 () Reason For Exam respiratory distress Report [...] NICHOLAS Transcribed Date and Time: 04/29/2020 11:08 [place], [place] Patient Name: CARINE BARBA ---Diagnostic Radiology--- Exam Date/Time 04/29/2020 10:39:47 EDT Exam CR Chest Portable Ordering Physician MD HUGHES DAVID L Accession Number [id number] CPT4 Codes 93254 () Reason For Exam respiratory distress Report [...] NICHOLAS Transcribed Date and Time: 04/29/2020 11:08 [place], [place] Basic Metabolic Panelon 10-24 Anion gap [Moles/Vol] 10 Normal [facility] Comment on above: Performed By: #### H EMDF, BMP3 #### [facility] [address] [place] [address] Calcium [Mass/Vol] 8.8 mg/dL Normal 8.4-10.4 [facility] Comment on above: Performed By: #### H RADHA, BMP3 #### [facility] [address] [place] [address] CO2 [Moles/Vol] 26 mmol/L Normal 22-30 [facility] Comment on above: Performed By: #### H CHRISTYF, BMP3 #### [facility] [address] [place] [address] Glucose [Mass/Vol] 112 mg/dL High 70-100 [facility] Comment on above: Performed By: #### H RADHA BMP3 #### [facility] [address] [place] [address] Urea nitrogen [Mass/Vol] 16 mg/dL Normal 7-20 [facility] Comment on above: Performed By: #### H RADHA, BMP3 #### [facility] [address] [place] [address] Creatinine [Mass/Vol] 0.72 mg/dL Normal 0.52-1.25 [facility] [place] [facility] Comment on above: Performed By: #### H RADHA BMP3 #### [facility] [address] [place] [address] GFR/1.73 sq M predicted among blacks MDRD (S/P/Bld) [Vol rate/Area] mL/min/{1.73_m2} Normal >60 [facility] Comment on above: Performed By: #### H RADHA BMP3 #### [facility] [address] [place] [address] GFR/1.73 sq M predicted among non-blacks MDRD (S/P/Bld) [Vol rate/Area] mL/min/{1.73_m2} Normal >60 [facility] Comment on above: Result Comment: Sour ce- MDRD equation with creatinine calibration to IDMS(NKDEP) eGFR not recommended for drug dose adjustment Performed By: #### H EMDF, BMP3 #### [facility] [address] [place] [address] Chloride [Moles/Vol] 103 mmol/L Normal 98-107 [facility] Comment on above: Performed By: #### H EMDF, BMP3 #### [facility] [address] [place] [address] Potassium [Moles/Vol] 3.6 mmol/L Normal 3.5-5.1 [facility] [place] [facility] Comment on above: Performed By: #### H EMDF, BMP3 #### [facility] [address] [place] [address] Sodium [Moles/Vol] 139 mmol/L Normal 135-145 [facility] Comment on above: Performed By: #### H EMDF, BMP3 #### [facility] [address] [place] [address] Basic Metabolic PanelOrdered By: David Granger on 11-11-2019 Anion gap [Moles/Vol] 10 mmol/L [facility] Work Phone: Calcium [Mass/Vol] 8.8 mg/dL 8.4 - 10. 4 mg/dL [employer] Work Phone: Chloride [Moles/Vol] 103 mmol/L 98 - 10 7 mmol/L [employer] Work Phone: CO2 [Moles/Vol] 26 mmol/L 22 - 30 mmol/L [employer] Work Phone: Creatinine [Mass/Vol] 0.72 mg/dL 0.52 - 1.25 mg/dL [facility] Work Phone: EGFR IF NonAfrican Grenadian >60.0 >60 mL/min [facility] Work Phone: Comment on above: Source- MDRD equatio n with creatinine calibration to IDMS(NKDEP) eGFR not recommended for drug dose adjustment GFR/1.73 sq M.predicted among blacks MDRD (S/P/Bld) [Vol rate/Area] mL/min/{1.73_m2} >60 mL/min [facility] Work Phone: Glucose [Mass/Vol] 112 mg/dL High 70 - 100 mg/dL [employer] Work Phone: Interpretation and review of laboratory results Abnormal [facility] Work Phone: Potassium [Moles/Vol] 3.6 mmol/L 3.5 - 5.1 mmol/L [employer] Work Phone: Sodium [Moles/Vol] 139 mmol/L 135 - 145 mmol/L [facility] Work Phone: Urea nitrogen [Mass/Vol] 16 mg/dL 7 - 20 mg/dL [facility] Work Phone: Test Performed by [facility], [address] [place] [address] [address] , [place] [address] [employer] Work Phone: CR Chest Portableon 11-11-19 20 CR Chest Portable Patient Name: CARINE BARBA Diagnostic Radiology Exam Date/Time 11/11/2019 19:53:25 EST Exam CR Chest Portable Ordering Physician MD ERWIN, DAVID Ellis Accession Number [id number] CPT4 Codes 25300 () Reason For Exam ASTHMA SOB Report [...] Transcribed Date and Time: 11/11/2019 8:02 Normal [facility] Hemogram (CBC) w/Auto DiffOr dered By: David Granger on 11-11-2019 Absolute Baso # 0.0 10*3/uL 0 - 0.2 10*3/uL [employer] Work Phone: Absolute Neut # 6.0 10*3/uL 1.8 - 7 10*3/uL [employer] Work Phone: Basophils/100 WBC (Bld) 0.4 % [...] [Mass/Vol] 14.1 g/dL 11.7 - 16 g/dL [employer] Work Phone: Lymphocytes (Bld) [#/Vol] 2.0 10*3/uL [...] [#/Vol] 260 10*3/uL 140 - 440 10*3/uL [facility] Work Phone: RBC (Bld) [#/Vol] 4.28 10*6/uL 3.8 - 5.2 10*6/uL [facility] Work Phone: WBC (Bld) [#/Vol] 8.9 10*3/uL 3.6 - 10.7 10*3/uL [facility] Work Phone: Test Performed by [facility], [address] , [place], [place] [address] [facility] Work Phone: Hemogram w/ [employer]od[employer]on 11-11 Abs Baso Cnt 0.0 10*3/uL Normal 0.0-0.2 [facility] Comment on above: Performed By: #### H EMDF, BMP3 #### [facility] [address] [place] [address] Abs Neutrophile Cnt 6.0 10*3/uL Normal 1.8-7.0 [facility] Comment on above: Performed By: #### H EMDF, BMP3 #### [facility] [address] [place] [address] Basophils/100 WBC (Bld) 0.4 % Normal 0.0-2.0 [facility] Comment on above: Performed By: #### H EMDF, BMP3 #### [facility] [address] [place] [address] Eosinophils (Bld) [#/Vol] 0.4 10*3/uL Normal 0.0-0.5 [facility] Comment on above: Performed By: #### H EMDF, BMP3 #### [facility] [address] [place] [address] Eosinophils/100 WBC (Bld) 4.1 % Normal 1.0-6.0 [facility] Comment on above: Performed By: #### H EMDF, BMP3 #### [facility] [address] [place] [address] Erythrocyte distribution width (RBC) [Ratio] 13.8 % Normal 11.5-14.5 [facility] Comment on above: Performed By: #### H EMDMeagan BMP3 #### [facility] [address] [place] [address] Granulocytes/100 WBC (Bld) 67.2 % Normal 40.0-80.0 [facility] Comment on above: Performed By: #### H RADHA BMP3 #### [facility] [address] [place] [address] Hematocrit (Bld) [Volume fraction] 41.4 % Normal 35.0-47.0 [facility] Comment on above: Performed By: #### H RADHA BMP3 #### [facility] [address] [place] [address] Hemoglobin (Bld) [Mass/Vol] 14.1 g/dL Normal 11.7-16.0 [facility] Comment on above: Performed By: #### H RADHA BMP3 #### [facility] [address] [place] [address] Lymphocytes (Bld) [#/Vol] 2.0 10*3/uL Normal 1.0-4.3 [facility] Comment on above: Performed By: #### H RADHA BMP3 #### [facility] [address] [place] [address] Lymphocytes/100 WBC (Bld) 22.7 % Normal 20.0-40.0 [facility] Comment on above: Performed By: #### H RADHA BMP3 #### [facility] [address] [place] [address] MCH (RBC) [Entitic mass] 32.9 pg Normal 26.0-34.0 [facility] Comment on above: Performed By: #### H RADHA BMP3 #### [facility] [address] [place] [address] MCHC (RBC) [Mass/Vol] 34.0 % Normal 32.0-36.0 [facility] [place] [facility] Comment on above: Performed By: #### H RADHA BMP3 #### [facility] [address] [place] [address] MCV (RBC) [Entitic vol] 96.8 fL Normal 79.0-98.0 [facility] Comment on above: Performed By: #### H RADHA BMP3 #### [facility] [address] [place] [address] Monocytes (Bld) [#/Vol] 0.5 10*3/uL Normal 0.0-0.8 [facility] Comment on above: Performed By: #### H RADHA BMP3 #### [facility] [address] [place] [address] Monocytes/100 WBC (Bld) 5.6 % Normal 2.0-10.0 [facility] Comment on above: Performed By: #### H RADHA, BMP3 #### [facility] [address] [place] [address] Platelet mean volume (Bld) [Entitic vol] 8.8 fL Normal 7.4-10.4 [facility] Comment on above: Performed By: #### H RADHA, BMP3 #### [facility] [address] [place] [address] Platelets (Bld) [#/Vol] 260 10*3/uL Normal 140-440 [facility] Comment on above: Performed By: #### H RADHA, BMP3 #### [facility] [address] [place] [address] RBC (Bld) [#/Vol] 4.28 10*6/uL Normal 3.80-5.20 [facility] Comment on above: Performed By: #### H EMDF, BMP3 #### [facility] [address] [place] [address] WBC (Bld) [#/Vol] 8.9 10*3/uL Normal 3.6-10.7 [facility] Comment on above: Performed By: #### H EMDF, BMP3 #### [facility] [address] [place] [address] Rapid Flu A AND B, RNAon Rapid Influenza A Not Detected Normal Not Detected [facility] [place] [facility] Comment on above: Performed By: #### R PFAB #### [facility] [address] [place] [address] Rapid Influenza B Not Detected Normal Not Detected [facility] [place] [facility] Comment on above: Result Comment: Meth od: Isothermal nucleic acid amplification technology. Performed By: #### R PFAB #### [facility] [address] [place] [address] Rapid Influenza A/B Antigens Ordered By: David Granger on 11-11-2019 INFLUENZA A Not detected Not Detected NA [facility] Work Phone: INFLUENZA B Not detected Not Detected NA [employer] Work Phone: Comment on above: Method: Isothermal n ucleic acid amplification technology. Test Performed by [facility], [address] , [address] Work Phone: XR CHEST PORTABLEOrdered By: David Granger on 11-11-2019 Patient Name: CARINE BARBA ---Diagnostic Radiology--- Exam Date/Time 11/11/2019 19:53:25 EST Exam CR Chest Portable Ordering Physician MD ERWIN, DAVID Ellis Accession Number [id number] CPT4 Codes 58446 () Reason For Exam ASTHMA SOB Report [...] KRIKOR Transcribed Date and Time: 11/11/2019 8:02 [facility] Work Phone: [facility], [facility] Incoming Radiology Results From [facility] - 11/11/2019 8:02 PM EST Patient Name: CARINE BARBA ---Diagnostic Radiology--- Exam Date/Time 11/11/2019 19:53:25 EST Exam CR Chest Portable Ordering Physician MD ERWIN, DAVID Ellis Accession Number [id number] CPT4 Codes 65397 () Reason For Exam ASTHMA SOB Report [...] KRIKOR Transcribed Date and Time: 11/11/2019 8:02 [facility] Work Phone: [facility] Note on 12-07-2017 [facility] Note Normal [facility] [place] Pat Eduon 12-07-2017 Pat Edu Normal [facility] [place] Patient Summary Documentson 12-07-2017 Patient Summary Documents Normal [facility] [place] [facility] Note on 10-07-2017 [facility] Note Normal [facility] [place] Patient Summary Documentson 10-06-2017 Patient Summary Documents Normal [facility] [place] ED Note-Provideron 7 ED Note-Provider Normal [facility] [place] Patient Summary Documentson 06-09-2017 Patient Summary Documents Normal [facility] [place] [facility] Note on 06-07-2017 [facility] Note Normal [facility] [place] Patient Summary Documentson 06-06-2017 Patient Summary Documents Normal [facility] [place] Vital Signs Date Time Vital Sign Value Performing Clinician Facility 04-15-2025 11:48-0400 SaO2% (BldA) [Mass fraction] 95 % Vincent Nesheim DO Work Phone: [facility] 04-15-2025 07:00-0400 Body temperature 97.2 [degF] Vincent Nesheim DO Work Phone: [facility] 04-15-2025 07:00-0400 Diastolic blood pressure 82 mm[Hg] Vincent Nesheim DO Work Phone: [facility] 04-15-2025 07:00-0400 Heart rate 112 /min Vincent Nesheim DO Work Phone: [facility] 04-15-2025 07:00-0400 Respiratory rate 16 /min Vincnet Nesheim DO Work Phone: [facility] 04-15-2025 07:00-0400 Systolic blood pressure 130 mm[Hg] Vincent Nesheim DO Work Phone: [facility] 04-15-2025 01:02-0400 Body height 167.6 cm Vincent Nesheim DO Work Phone: [facility] 04-15-2025 01:02-0400 Body mass index (BMI) [Ratio] 27.44 kg/m2 Vincent Nesheim DO Work Phone: [facility] 04-15-2025 01:02-0400 Body weight 77.11 kg Vincent Nesheim DO Work Phone: [facility] 01-08-2025 03:11-0400 Diastolic blood pressure 64 mm[Hg] Giancarlo Batres MD Work Phone: [facility] 01-08-2025 03:11-0400 Heart rate 100 /min Giancarlo Batres MD Work Phone: [facility] 01-08-2025 03:11-0400 Respiratory rate 20 /min Giancarlo Batres MD Work Phone: [facility] 01-08-2025 03:11-0400 SaO2% (BldA) [Mass fraction] 96 % Giancarlo Batres MD Work Phone: [facility] 01-08-2025 03:11-0400 Systolic blood pressure 117 mm[Hg] Giancarlo Batres MD Work Phone: [facility] 01-08-2025 01:54-0400 Body height 170.2 cm Giancarlo Batres MD Work Phone: [facility] 01-08-2025 01:54-0400 Body mass index (BMI) [Ratio] 26.63 kg/m2 Giancarlo Batres MD Work Phone: [facility] 01-08-2025 01:54-0400 Body temperature 99 [degF] Giancarlo Batres MD Work Phone: [facility] 01-08-2025 01:54-0400 Body weight 77.11 kg Giancarlo Batres MD Work Phone: [facility] 03-23-2022 10:53-0400 Respiratory rate 16 /min [facility] Work Phone: 03-23-2022 08:42-0400 Diastolic blood pressure 88 mm[Hg] [facility] Work Phone: 03-23-2022 08:42-0400 Heart rate 86 /min [facility] Work Phone: 03-23-2022 08:42-0400 SaO2% (BldA) [Mass fraction] 97 % [facility] Work Phone: 03-23-2022 08:42-0400 Systolic blood pressure 160 mm[Hg] [facility] Work Phone: 03-23-2022 06:42-0400 Body height 170.18 cm [facility] Work Phone: 03-23-2022 06:42-0400 Body mass index (BMI) [Ratio] 32.3 kg/m2 [facility] Work Phone: 03-23-2022 06:42-0400 Body temperature 97.9 [degF] [facility] Work Phone: 03-23-2022 06:42-0400 Body weight 93.7 kg [facility] Work Phone: 07-05-2020 11:10-0400 Pulse (Heart Rate) 85 /min [facility] [place] 07-05-2020 11:10-0400 Pulse Oximetry 95 % [facility] [place] [facility] [place] 07-05-2020 10:14-0400 BP Diastolic 63 mm[Hg] [facility] [place] , [place] 07-05-2020 10:14-0400 BP Systolic 113 mm[Hg] [facility] [place] 07-05-2020 10:14-0400 Respiratory Rate 16 /min [facility] [employer] [facility] [place] 07-05-2020 09:11-0400 BMI (Body Mass Index) 28.19 kg/m2 [facility], [place] 07-05-2020 09:11-0400 Body Temperature 98.2 [degF] [facility] [place] 07-05-2020 09:11-0400 Body weight 81.65 kg [facility] , [place] 07-05-2020 09:11-0400 Height 170.2 cm [facility] [place] 06-08-2020 05:18-0400 BP Diastolic 66 mm[Hg] [facility] [place] [facility] [place] 06-08-2020 05:18-0400 BP Systolic 123 mm[Hg] [facility] [place] 06-08-2020 05:18-0400 Pulse (Heart Rate) 88 /min [facility] [place] 06-08-2020 05:18-0400 Pulse Oximetry 99 % [facility] , [place] 06-08-2020 05:18-0400 Respiratory Rate 16 /min [facility] [place] 06-08-2020 02:35-0400 BMI (Body Mass Index) 28.19 kg/m2 [facility], [place] 06-08-2020 02:35-0400 Body Temperature 98.49 [degF] [facility], [place] 06-08-2020 02:35-0400 Body weight 81.65 kg [facility] , [place] 06-08-2020 02:35-0400 Height 170.2 cm [facility] [place] 04-29-2020 11:24-0400 BP Diastolic 69 mm[Hg] [facility] , [place] 04-29-2020 11:24-0400 BP Systolic 110 mm[Hg] [facility] , [place] 04-29-2020 11:24-0400 Pulse (Heart Rate) 101 /min [facility], [place] 04-29-2020 11:24-0400 Pulse Oximetry 97 % [facility] , [place] 04-29-2020 11:24-0400 Respiratory Rate 20 /min [facility], [place] 04-29-2020 09:16-0400 Body Temperature 98.4 [degF] [facility] 11-12-2019 11:47-0500 SaO2% (BldA) [Mass fraction] 96 % David Granger MD Work Phone: [employer] Work Phone: 11-12-2019 07:32-0500 Body temperature 98.01 [degF] David Granger MD Work Phone: [facility] Work Phone: 11-12-2019 07:32-0500 Diastolic blood pressure 84 mm[Hg] David Granger MD Work Phone: [facility] Work Phone: 11-12-2019 07:32-0500 Heart rate 81 /min David Granger MD Work Phone: [facility] Work Phone: 11-12-2019 07:32-0500 Respiratory rate 18 /min [facility] MD [facility] Work Phone: 11-12-2019 07:32-0500 Systolic blood pressure 124 mm[Hg] David Granger MD Work Phone: [facility] Work Phone: 11-11-2019 17:39-0500 Body height 170.2 cm David Granger MD Work Phone: [facility] Work Phone: 11-11-2019 17:39-0500 Body mass index (BMI) [Ratio] 28.98 kg/m2 David Granger MD Work Phone: [facility] Work Phone: 11-11-2019 17:39-0500 Body weight 83.92 kg David Granger MD Work Phone: [facility] Work Phone: Encounters Encounter Date Encounter Type Care Provider Facility Start: 04-16-2025 End: 04-16-2025 Telephone encounter Nubia Bradford [facility] Clinical Communication Comment on above: Hospital Follow-up Start: 04-15-2025 End: 04-15-2025 Telephone encounter Emelia Rucker ART CONSULTANT - [employer] Work Phone: [facility] [place] Start: 04-14-2025 End: 04-15-2025 ambulatory [facility] Start: 04-14-2025 End: 04-15-2025 Evaluation and management of inpatient Vincent Huitron DO Work Phone: [facility] Medical Unit [facility] Comment on above: Severe persistent as thma with exacerbation (Primary Dx) Start: 01-08-2025 End: 01-08-2025 Emergency department patient visit Giancarlo Batres MD Work Phone: [facility] ED Comment on above: Moderate persistent asthma with exacerbation (Primary Dx) Start: 10-18-2024 Emergency department patient visit Facility:[facility] Start: 10-17-2024 End: 10-17-2024 ambulatory No Primary Care Physician Facility:[facility] Start: 10-16-2024 End: 10-16-2024 Emergency department patient visit No Primary Care Physician Facility:[facility] Start: 03-23-2022 End: 03-23-2022 Emergency department patient visit [facility]-Emergency Department Start: 07-05-2020 End: 07-05-2020 Emergency department patient visit Anca Almaguer Work Phone: [facility] Comment on above: Exacerbation of asth ma, unspecified asthma severity, unspecified whether persistent (Primary Dx) Start: 06-08-2020 End: 06-08-2020 Emergency department patient visit Anca Almaguer Work Phone: [facility] Comment on above: Exacerbation of asth ma, unspecified asthma severity, unspecified whether persistent (Primary Dx) Start: 04-29-2020 End: 04-29-2020 Emergency department patient visit Nimo Hughes Work Phone: [facility] Comment on above: Moderate persistent asthma with exacerbation (Primary Dx) Start: 11-11-2019 End: 11-12-2019 Emergency department patient visit David Granger MD Work Phone: [facility] Comment on above: Moderate persistent asthma with acute exacerbation (Primary Dx); Infiltrate of lower lobe of right lung present on imaging study Start: 12-07-2017 End: 12-07-2017 Emergency department patient visit ALVARO BLACK Facility:B Start: 10-06-2017 End: 10-07-2017 Emergency department patient visit [facility] Facility:[facility] Start: 06-09-2017 End: 06-09-2017 Emergency department patient visit SILVIO ALCALA Facility:B Start: 06-06-2017 End: 06-06-2017 Emergency department patient visit [facility] Facility:B Start: 11-04-2016 End: 11-05-2016 Ambulatory [facility] Facility:[facility] Procedures Date Procedure Procedure Detail Performing [...] for Adults (1 - 1-dose 75+ series) [employer] Start: 2041 Zoster Vaccines (1 of 2) Zoste r Vaccines (1 of 2) [facility] Start: 06-24-2025 Influenza vaccination Influenz a Vaccine (Season Ended) [facility] Start: 04-17-2025 End: 04-17-2025 Patient encounter procedure 04/17/2025 10:10 AM EDT Office Visit [facility] [place] [address] [place] [address] Tal Davila, ART CONSULTANT - [employer]IVE MIXER [address] [place] [address] [facility] [place] Start: 06-24-2024 COVID-19 Vaccine ( season) COVID-19 Vaccine ( season) [facility] Start: 06-24-2024 Influenza vaccination Influenza Vacc ine (#1) [facility] Start: 2021 Screening for malign ant neoplasm of cervix [facility] Start: 06-24-2020 Influenza vaccination Flu vaccine (# 1) [facility] [place] Start: 11-27-2019 End: 11-27-2019 Patient encounter procedure 11/27/2019 Office Visit Family Medicine Monika Layne MD [address] [place] [address] [phone] [facility] Start: 11-19-2019 End: 11-12-2020 XR CHEST STANDARD (2 VW) XR CHEST STANDARD (2 VW) Imaging Routine Infiltrate of lower lobe of right lung present on imaging study Expected: 11/19/2019, Expires: 11/12/2020 [facility] Work Phone: Comment on above: Expected: 11/19/2019 , Expires: 11/12/2020 Start: 06-24-2019 Influenza vaccination Flu vaccine (# 1) [facility] Work Phone: Start: 01-12-2012 Cervical cancer screen Cervical canc er screen [facility] Work Phone: Start: 01-12-2012 Screening for malign ant neoplasm of cervix [facility] Start: 2010 DTaP/Tdap/Td Vaccine s (1 - Tdap) DTaP/Tdap/Td Vaccines (1 - Tdap) [facility] Start: 2010 Hepatitis B Vaccines (1 of 3 - 19+ 3-dose series) Hepatitis B Vaccines (1 of 3 - 19+ 3-dose series) [facility] Start: 2010 Pneumococcal Vaccine : Pediatrics (0 to 5 Years) and At-Risk Patients (6 to 49 Years) (1 of 2 - PCV) Pneumococcal Vaccine: Pediatrics (0 to 5 Years) and At-Risk Patients (6 to 49 Years) (1 of 2 - PCV) [facility] Start: 2009 Hepatitis C screening Hepatitis C Sc reening [facility] Start: 2006 HIV screen HIV screen [facility] Work Phone: Start: 2006 HIV screening HIV screen Manisha Phan [facility] [place] Start: 01-12-2004 Varicella vaccination Varicell a Vaccines (1 of 2 - 13+ 2-dose series) [facility] Start: 2003 Depression Screening Depression Scre ening [facility] Start: 2002 DTaP/Tdap/Td vaccine (6 - Tdap) DTaP/Tdap/Td vaccine (6 - Tdap) [facility] Work Phone: Start: 1997 Pneumococcal 0-64 ye ars Vaccine (1 of 1 - PPSV23) Pneumococcal 0-64 years Vaccine (1 of 1 - PPSV23) [facility] Work Phone: Start: 01-12-1992 MMR Vaccines (1 of 1 - Standard series) MMR Vaccines (1 of 1 - Standard series) [facility] Start: 01-12-1992 Varicella vaccine (1 of 2 - 2-dose childhood series) Varicella vaccine (1 of 2 - 2-dose childhood series) [facility] Work Phone: Start: 1991 [facility] Start: 1991 Lipid panel Lipid Panel [facility] EKG 12 Lead [facility] [place] [facility] Work Phone: Comment on above: 0800, 1200, 1600, 20 00 (respiratory use only) until discontinued starting 04/29/2020 Every 4hr while awak e until discontinued starting 11/12/2019 0600, 1000, 1400, 18 00, 2200 until discontinued starting 11/11/2019 Patient Education ED Anxiety [place] c[facility] ED Chest Pain, Noncardiac [facility] Work Phone: Patient referral [facility] Work Phone: End: 11-11-2019 Pulse Oximetry Spot Check Pulse Oximetry Spot Check Respiratory Care Routine One Time for 1 Occurrences starting 11/11/2019 until 11/11/2019 [facility] Work Phone: Comment on above: One Time for 1 Occur rences starting 11/11/2019 until 11/11/2019 Payers Date Payer Category Payer Medicaid HMO [employer] ODM [id number] 2024 Medicaid [id number] 2024 Self-pay [id number] 2019 Unknown [employer] [facility] MEDICAID xxxxxxxxxxx 2019-Present [phone] CLAIMS DEPARTMENT [address] [place] [address] xxxxxxxxxxx [id number] 2017 Medicaid [id number] Unknown [id number] Unknown [id number] Unknown [id number] Social History Date Type Detail Facility Start: 11-11-2019 End: 01-08-2025 Tobacco smoking status NHIS Current every day smoker [employer] Work Phone: Start: 11-11-2019 End: 04-15-2025 Cigarettes smoked current (pack per day) - Reported [employer] Work Phone: History of tobacco use Chews [facility] Work Phone: Start: 11-11-2019 End: 04-14-2025 Alcohol intake Current drinker of alcohol (finding) [employer] Work Phone: Start: 02-28-2018 Alcohol Comment 2-3 shots/day intermittently [employer] Work Phone: Start: 1990 Sex Assigned At Not on file [employer] Phone: Exposure to SARS-CoV -2 (event) Unable to assess [employer] Start: 06-08-2020 End: 07-05-2020 Tobacco smoking status NHIS Former smoker [employer] Start: 06-08-2020 End: 01-08-2025 Tobacco use and exposure Current user [employer] [facility] [place] Exposure to SARS-CoV -2 (event) Not sure [employer] Start: 03-23-2022 Tobacco smoking status NHIS Unknown if ever smoked [facility] Work Phone: Start: 04-16-2019 None [facility] Work Phone: Start: 04-16-2019 With Family [facility] Work Phone: Start: 07-12-2020 Cigarettes [facility] Work Phone: Start: 1990 Sex Assigned At Female [facility] Work Phone: History of tobacco use Cigarette Smoker S [facility] Start: 01-08-2025 End: 04-15-2025 Alcohol Use Disorder Identification Test - Consumption [AUDIT-C] [facility] Frequency of Alcohol Consumption [facility] Start: 05-24-2022 Sex Female (finding) [facility] Has the electric, [employer], [employer], or water company threatened to shut off services in your home in past 12Mo No [facility] How often to you hav e a drink containing alcohol? Never [facility] (I/We) worried [facility] (my/our) food would run out before (I/we) got money to buy more. Never true [facility] Functional Status Date Assessment Result Facility 04-15-2025 Drug Abuse Screening Test-10 [DAST-10] [facility] Mental Status Date Assessment Result Facility 03-23-2022 Cognitive function Level Of Cons ciousness Awake;Alert;Appropriate [facility] Work Phone: Clinical Notes 10-18-2024 to 04-17-2025 Telephone Encounter - Anna Thompson RN - 04/17/2025 2:32 PM EDTTelephone Encounter - Anna Thompson RN - 04/17/2025 2:32 PM Gabbi Allison MD - 04/15/2025 3:56 PM EDTDischarge Instructions Note Date & Type Note Facility 04-17-2025 Telephone encount er Note Patient's had follow up appointment today with Tal Davila per [facility]. Unable to contact patient. [facility] 04-17-2025 Miscellaneous Notes Formattin g of this note might be different from the original. Patient's had follow up appointment today with Tal Davila per [facility]. Unable to contact patient. Unable to contact patient for pulmonary call documented in this encounter [facility] 04-17-2025 Note Referral from Inpati ent. Chart reviewed, noted patient left AMA. Unable to follow at this time. [facility] 04-16-2025 Telephone encount er Note Unable to contact patient for pulmonary call [facility] 04-16-2025 Miscellaneous Notes Formattin g of this note might be different from the original. Unable to contact patient for pulmonary call documented in this encounter [facility] 04-15-2025 Telephone encount er Note Opened in error [facility] [employer] Work Phone: 04-15-2025 Miscellaneous Notes Formattin g of this note might be different from the original. Opened in error documented in this encounter [facility] 04-15-2025 Hospital course Narrative Images from the [...] with shortness of breath. She initially presented [place] ED, found to be asthma exacerbation, stabilized on 2 L of nasal cannula, patient has history of smoking, has not used smoking for several days. Patient transferred to [facility]. Admitted for further evaluation and treatment. Respiratory [...] Your Medications These medications were sent to [facility]/pharmacy #[id number] - [address] [address] albuterol 108 (90 Base) MCG/ACT inhaler doxycycline 100 MG capsule guaiFENesin 100 MG/5ML liquid hydrOXYzine pamoate 25 MG capsule mometasone-formoterol 200-5 MCG/ACT inhaler predniSONE 20 MG tablet DIET: Adult diet Regular ACTIVITY: _ COMPLEXITY OF FOLLOW UP: [] Moderate Complexity: follow up within 7-14 calendar days (57177) [] Severe Complexity: follow up within 7 calendar days (28158) FOLLOW UP TESTING, PENDING RESULTS OR REFERRALS [...] 04/15/2025, 4:37 PM documented in this encounter [facility] 04-15-2025 Note Discharge Summary Carine Barba : [...] with shortness of breath. She initially presented [place] ED, found to be asthma exacerbation, stabilized on 2 L of nasal cannula, patient has history of smoking, has not used smoking for several days. Patient transferred to [facility]. Admitted for further evaluation and treatment. Respiratory [...] Your Medications These medications were sent to [facility]/pharmacy #[id number] [address] albuterol 108 (90 Base) MCG/ACT inhaler doxycycline 100 MG capsule guaiFENesin 100 MG/5ML liquid hydrOXYzine pamoate 25 MG capsule mometasone-formoterol 200-5 MCG/ACT inhaler predniSONE 20 MG tablet DIET: Adult diet Regular ACTIVITY: COMPLEXITY OF FOLLOW UP: [] Moderate Complexity: follow up within 7-14 calendar days (81615) [] Severe Complexity: follow up within 7 calendar days (38371) FOLLOW UP TESTING, PENDING RESULTS OR REFERRALS [...] SIGNED: Perez Allison MD 04/15/2025, 4:37 PM [facility] 04-15-2025 Nurse Note Patient stated she wants to be discharged. Patient stated " we are not doing anything for her" patient educated on iv solumedrol, antibiotics, and breathing treatments. and Dr. Quinton gomez was notified via secure chat. Patient not to be discharged. Patient electing to leave AMA. AMA form signed. Patient educated on why she should stay. Prescriptions sent to [facility] and patient notified of follow up with Tal Davila CNP in two days. Wrote out their office info and supplied to patient. Iv removed at this time, no complications noted. 1550- patient leaving ama at this time [facility] 04-15-2025 Nurse Note Patient stated she wants to be discharged. Patient stated " we are not doing anything for her" patient educated on iv solumedrol, antibiotics, and breathing treatments. and Dr. Quinton gomez was notified via secure chat. Patient not to be discharged. Patient electing to leave AMA. AMA form signed. Patient educated on why she should stay. Prescriptions sent to [facility] in [place] and patient notified of follow up with [...] to 04/16 because labs just drawn at [place] ED at 1999 on 04/14. MD agreeable. documented in this encounter [facility] 04-15-2025 Note Formatting of this n ote [...] Stay (Days): 0 GMLOS: No GMLOS Documented [facility] 04-15-2025 Note Formatting of this n ote [...] Stay (Days): 0 GMLOS: No GMLOS Documented [facility] 04-15-2025 Note Care Management Prog ress Note [...] Stay (Days): 0 GMLOS: No GMLOS Documented [facility] 04-15-2025 Miscellaneous Notes Formattin g of this [...] maintained or improved Outcome: Progressing Called by [place] [facility] . Discussed with ED attending. 35 [...] Admit to t3 documented in this encounter [facility] 04-15-2025 Plan of care note Problem: Pain [...] monitored and maintained or improved Outcome: Progressing [facility] 04-15-2025 History of Presen t illness Narrative Carine is a 35-year-old female with history of anxiety, asthma, multiple fractures before, history of blood clots presented to emergency room with shortness of breath. She initially presented [place] ED, found to be asthma exacerbation, stabilized on 2 L of nasal cannula, patient has history of smoking, has not used smoking for several days. Patient transferred to [facility]. Admitted for further evaluation and treatment. Respiratory [...] L Foote MD documented in this encounter [facility] 04-15-2025 Consult note Associated Order (s): IP CONSULT TO PULMONOLOGY Images from the original note were not included. [facility] Pulmonary Medicine [facility] [place] [address] [id number] 1990 Date of Admission - 04/14/2025 [...] patient signed out AMA Giancarlo Yi MD [facility] [employer] Work Phone: 04-15-2025 Consult note Associated Order (s): IP CONSULT TO PULMONOLOGY Images from the original note were not included. [facility] Pulmonary Medicine [address] [place] [address] Patient - Carine Barba - 1990 Date [...] and I ripped everything off." MD notified. [facility] 04-15-2025 Nurse Note Fluids paused to promote rest in patient. Patient refusing to keep arm straight, causing fluids to alarm every 1-2 minutes. Patient educated on keeping arm straight 5x. MD notified. [facility] 04-15-2025 Nurse Note Patient calls RN to [...] in bed and is 97% on RA. [facility] 04-15-2025 Nurse Note Morning labs deferred to 04/16 because labs just drawn at [place] ED at 1999 on 04/14. MD agreeable. [facility] 04-15-2025 History and physical note Attending History [...] nausea or vomiting. She was seen at [place] ED, was found to have an exacerbation of bronchial asthma was hypoxic initially was then stabilized on 2 L of oxygen by nasal cannula. She continued to be mildly short of breath however, and as transferred to [facility] for further evaluation.. 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 She was seen at [place] ED, was found to have an exacerbation of bronchial asthma was hypoxic initially was then stabilized on 2 L of oxygen by nasal cannula. She continued to be mildly short of breath however, and as transferred to [facility] for further evaluation.. Past medical history significant [...] 13.0* RBC 4.28 (more content not included)... [facility] 04-15-2025 History and physical note Attending History [...] nausea or vomiting. She was seen at [place] ED, was found to have an exacerbation of bronchial asthma was hypoxic initially was then stabilized on 2 L of oxygen by nasal cannula. She continued to be mildly short of breath however, and as transferred to [facility] for further evaluation.. 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 Admit to t3 [employer] Work Phone: 04-14-2025 Emergency department Note Pt reports slight improvement after breathing treatment but has continued wheezing. [facility] [employer] 04-14-2025 Emergency department Note Pt reports slight improvement after breathing treatment but has continued wheezing. Emergency Department Encounter [facility] Patient: Carine Barba : 1990 Date of Evaluation: 04/14/2025 ED Provider: Vincent Huitron DO Chief Complaint Chief Complaint Patient presents with Shortness of Breath KAW Carine Barba is a 35 y.o. female [...] 347 ms QTC Interval 449 ms P Paulina 81 degrees QRS Paulina 77 degrees T Wave Paulina 15 degrees ID Interval 146 ms D-dimer, quantitative Collection Time: [...] 7:59 PM EDT Procedures/EKG: EKG Interpreted in GOQii software by myself SCREENINGS EMERGENCY DEPARTMENT COURSE [...] patient for admission. Patient was transferred to [facility] for further workup of COPD exacerbation [...] use of inhalers. documented in this encounter [facility] 04-14-2025 Emergency department Triage note Pt to room 9 with c/o shortness of breath and wheezing x 2 days. Pt reports she has a history of asthma with no improvement with use of inhalers. [facility] 04-14-2025 Physician Emergen cy department Note Emergency Department Encounter [facility] Patient: Carine Barba : 1990 Date of Evaluation: 04/14/2025 ED Provider: Vincent Huitron DO Chief Complaint Chief Complaint Patient presents with Shortness of Breath KAWDelfino Barba is a 35 y.o. female who [...] 347 ms QTC Interval 449 ms P Paulina 81 degrees QRS Paulina 77 degrees T Wave Paulina 15 degrees ID Interval 146 ms D-dimer, quantitative Collection Time: [...] 7:59 PM EDT Procedures/EKG: EKG Interpreted in GOQii software by myself SCREENINGS EMERGENCY DEPARTMENT COURSE [...] patient for admission. Patient was transferred to [facility] for further workup of COPD exacerbation [...] for clarification. Vincent Huitron DO Acute Care [facility] [1] Past Medical History: Diagnosis Date Anxiety [...] Splotchy face Vincent Huitron DO 04/15/25 0114 [facility] 01-08-2025 Hospital Discharg e instructions Giancarlo Batres MD - 01/08/2025 3:06 AM EDT Take the medications as written including prednisone daily. Schedule an appointment with your physician later this week. Return to the emergency department if symptoms change or worsen. The following attachments cannot be sent through Care Every[facility].How to Use a Nebulizer ED (Turkish)Asthma, Adult ED (Turkish)documented in this encounter [facility] 01-08-2025 Emergency department Note Patient arrived via wheelchair to room 5 with male visitor. Patient complains of SOB since yesterday. Patient has hx of asthma and has been using her inhalers with no relief. Patient audibly wheezing. Patient states muscles in chest feel tight and it hurts to take a deep breath. documented in this encounter [facility] 01-08-2025 Emergency department Triage note Patient arrived via wheelchair to room 5 with male visitor. Patient complains of SOB since yesterday. Patient has hx of asthma and has been using her inhalers with no relief. Patient audibly wheezing. Patient states muscles in chest feel tight and it hurts to take a deep breath. [facility] 10-20-2024 Note HNO ID: [id number] Author: MICHELLE HILL RN Service: Care Management [...] Physician Primary Care Physician Name/Phone: Naldo Ryan [phone] Additional Information: Discharge written for patient to go home. Patient agreeable to discharge plan and denies needs. Significant other to transport. Bedside nurse updated. SOC sent to PCP. SIGNATURE: Michelle Hill RN PATIENT NAME: Carine Barba DATE: October 20, 2024 TIME: 10:21 AM [facility] 10-19-2024 Note HNO ID: [id number] Author: SUNIL ROMERO MD Service: General Internal [...] -- 10/18/24 1800 activity - mobilize patient ([place], [place]) VTE Prophylaxis: VTE prophylaxis appropriate SIGNATURE: Sunil Romero MD PATIENT NAME: Carine Barba [facility] 10-18-2024 Note SARS-COV-2 (AGENT OF COVID-19) RNA: Not detected INFLUENZA A RNA: Detected INFLUENZA B RNA: Not detected RESPIRATORY SYNCYTIAL VIRUS (RSV) RNA: Not detected [facility] Comment on above: Performed By: #### 9 [id number] ####[facility] [employer]ORY[facility] [id number] [place], [place] [id number] [place] [address] OF [facility] Evaluation note Diagnosis Moderate persistent asthma with acute exacerbation- Primary Infiltrate of lower lobe of right lung present on imaging study Asthma in adult, moderate persistent, uncomplicated documented in this encounter [facility] Work Phone: Evaluation noteNo assessment information available [facility] Work Phone: Evaluation note* Diagnosis Moderate persistent asthma with exacerbation- Primary Unspecified asthma, with exacerbation [facility] Diagnosis Severe persistent asthma with exacerbation- Primary Unspecified asthma, with exacerbation Severe persistent asthma with exacerbation Unspecified asthma, with exacerbation [facility] Dis[facility] instructions Additional Instructions Cardiac work-up negative. D-dimer negative. You were evaluated by case management for your anxiety. You are set up for outpatient evaluation. Use hydroxyzine as needed for anxiety.[facility] Work Phone: Summary Purpose Family History No Family History Records Found Relationship Condition Age at Onset Recorded Date/T cara Unknown Family History?- Unknown October 152013 8:32am Family History?- Unknown January 12, 2019 4:57am Family History?Asthma Unknown January 12, 2019 4:57am Advance Directives No Advanced Directives Records FoundDocuments on File Type Date Recorded Patient Milliner Helper Expl anation Advance Directives and Living Will Power of Glue Jointer Feeder Latest Code Status on File Code Status Date Activated Date Inactivated Comments Full Code 11/11/2019 9:42 PM 11/12/2019 4:16 PM Documents on File Type Date Recorded Patient Milliner Helper Expl anation ACP-Advance Directive ACP-Power of Glue Jointer Feeder Latest Code Status on File Code Status Date Activated Date Inactivated Comments Full Code 11/11/2019 9:42 PM Advance Directive Response Recorded Date/ Time Advance Directives No November 25, 2017 5:47pm Living Will No March 23, 2022 6 :46am Power of Glue Jointer Feeder No March 23, 2022 6:46am Date Activated Date Inactivated Comments 04/15/2025 1:33 AM 04/15/2025 5:56 PM Discharge Instructions * Instructions* Nimo Hughes MD - 04/29/2020 Return to the ER immediately if breathing worsens in any way. * Attachments The following attachments cannot be sent through Care Everywhere. * Asthma: General Info (Turkish) * Nebulizers: General Info (Turkish) documented in this encounter* Attachments The following attachments cannot be sent through Care Everywhere. * Asthma Triggers: General Info (Turkish) documented in this encounter* Attachments The following attachments cannot be sent through Care Everywhere. * Asthma: General Info (Turkish) documented in this encounter Assessments Diagnosis Moderate persistent asthma with exacerbation Unspecified asthma, with exacerbation Diagnosis Exacerbation of asthma, unspecified asthma severity, unspecified whether persistent Chief Complaint and Reason for Visit Chief Complaint CP Additional Source Comments INFORMATION SOURCE (unrecogn ized section and content) DATE CREATED AUTHOR 04/14/2018 [facility] ([place]) DATE CREATED AUTHOR AUTHOR'S ORGANIZ ATION 04/19/2018 [facility] DATE CREATED AUTHOR AUTHOR'S ORGANIZ ATION 07/07/2020 [facility] DATE CREATED AUTHOR AUTHOR'S ORGANIZ ATION 10/22/2024 [facility] DATE CREATED AUTHOR AUTHOR'S ORGANIZ ATION 11/16/2024 [facility] DATE CREATED AUTHOR AUTHOR'S ORGANIZ ATION 04/17/2025 [facility] Reason for Visit (unrecogniz ed section and content) Reason Comments Shortness of Breath Specialty Diagnoses / Procedures Referred By Nayely reyes Referred To Contact Diagnoses Severe persistent asthma with exacerbation Procedures j45.51 Perez Allison MD [address] [place] [address] Phone: tel: fax: [facility] Medical Unit [address] [address] Phone: tel: Referral ID Status Reason Start Date Expiration Date Visits Re quested Visits Authorized [id number] 1 1 Reason Comments Wheezing Reason Comments [...] antibiotic. educated importance of antibiotic. dr allison notified)[id number] (Canceled Entry - Provider: Giancarlo Romero RN) [...] Care Teams (unrecognized sec tion and content) Roller Embosser Relationship Specialty Start Date End Date Aishwarya Ivory MD [address] [place] [address] PCP - General 01/22/14 Roller Embosser Relationship Specialty Start Date End Date Aishwarya Ivory MD [address] [place] [address] PCP - General 01/22/14 Roller Embosser Relationship Specialty Start Date End Date Aishwarya Ivory MD [address] [place] [address] PCP - General 01/22/14 Roller Embosser Relationship Specialty Start [place] [address] [place] [address] PCP - General 01/22/14 FOR RECORDS PERTAINING [...] BE BASED ON THE PRIMARY CLINICAL RECORDS. [employer] [facility]. provides no warranty or guarantee of the accuracy or completeness of information in this document.
[2025-05-18 20:26] LABS: Barbiturate Urine NEGATIVE (< 200 ng/mL); Benzodiazepine Urine NEGATIVE (< 200 ng/mL); PCP Urine NEGATIVE (< 25 ng/mL); THC Urine PRESUMPTIVE POSITIVE (< 50 ng/mL)
[2025-05-18 20:38] VITALS: BP 131/72; BP 139/72; PULSE 79; RESP 18; TEMP 37.2; O2SAT 99
[2025-05-18 20:49] VITALS: BP 125/90; PULSE 78; RESP 15; TEMP 36.8; O2SAT 100; BMI 24.5
[2025-05-18] MEDS: hydrOXYzine PAM 25 MG Capsule 50 MG PO (21:46)
[2025-05-18] MEDS: Albuterol 2.5 MG/3 ML VIAL.NEB. INHALATION (22:18)
[2025-05-18 22:19] VITALS: PULSE 75; RESP 20
[2025-05-19] VITALS (8 sets, daily range): BP systolic 114–135; BP diastolic 68–80; PULSE 65–93; RESP 15–20; TEMP 36.6–36.8; O2SAT 98–100
[2025-05-19] MEDS: hydrOXYzine PAM 25 MG Capsule 50 MG PO ×2 (09:48→16:26)
[2025-05-19] MEDS: Albuterol 2.5 MG/3 ML VIAL.NEB. INHALATION (10:18)
--- NOTE | 2025-05-19 15:32 | ADDICTION ---
Addendum entered by Altagracia Clayotn 05/21/25 11:43: Working on placement for residential tx at [facility] in [place]. Hopefully we can get her admitted no later than tomorrow morning. Original Note: Met with client to discuss RAMP program. Discussed Tx options, provided resources. Client reports that she would like to engage in 3.5 LoC residential program for a max of 30 days.
--- NOTE | 2025-05-19 15:54 | ADDICTION ---
Client rpts that she is interested in receiving Vivitrol injection to reduce cravings
--- NOTE | 2025-05-19 16:44 | PCM.PN.HOSP ---
Reason for Visit Chief Complaint: Requesting treatment for opiate withdrawal Subjective Subjective Today, she complains of little bit of anxiety and she would like something more for sleep at night. I raised up her dose of trazodone to 150 mg at bedtime. Patient was seen by addiction social insurance specialist today. Objective Data Objective Data Vital Signs: Vital Signs Temp Pulse Resp BP Pulse Ox O2 Del Method 98 F 93 18 114/68 98 Room Air 05/19/25 16:17 05/19/25 16:17 05/19/25 16:17 05/19/25 16:17 05/19/25 16:17 05/19/25 16:17 Oxygen Delivery Method Room Air Weight: 71 kg Body Mass Index (BMI) 24.5 Intake & Output: Intake and Output for Last 24 Hours 05/17/25 05/18/25 05/19/25 23:59 23:59 23:59 Intake Total 400 / 400 Balance 400 / 400 Lab / Micro Data 05/18/25 18:40 05/18/25 18:40 Labs: Laboratory Results - last 24 hr 05/18/25 18:40: WBC 10.3, RBC 4.20, Hgb 13.9, Hct 41.1, MCV 97.9, MCH 33.1 H, MCHC 33.8, RDW Std Deviation 46.9 H, RDW Coeff of Emilia 13.0, Plt Count 257, MPV 9.6, Immature Gran % (Auto) 0.200, Neut % (Auto) 65.2, Lymph % (Auto) 25.0, Beaufort % (Auto) 5.7, Eos % (Auto) 3.5, Baso % (Auto) 0.4, Absolute Neuts (auto) 6.7, Absolute Lymphs (auto) 2.58, Nucleated RBC % 0, Sodium 140, Potassium 3.6, Chloride 104, Carbon Dioxide 25.2, Anion Gap 11, BUN 12, Creatinine 0.68 L, Estim Creat Clear Calc 113.36, Est GFR (MDRD) Non-Af 117, BUN/Creatinine Ratio 17.7, Glucose 109 H, Calcium 8.6, Serum , Qual NEGATIVE, Ethyl Alcohol < 10.1 05/18/25 18:45: Urine Opiates Screen NEGATIVE, U Buprenorphine Qual NEGATIVE, Ur Oxycodone Screen NEGATIVE, Urine Methadone Screen NEGATIVE, Urine Fentanyl Screen PRESUMPTIVE POSITIVE, Ur Barbiturates Screen NEGATIVE, Ur Phencyclidine Scrn NEGATIVE, Ur Amphetamines Screen NEGATIVE, U Benzodiazepines Scrn NEGATIVE, Urine Cocaine Screen PRESUMPTIVE POSITIVE, U Cannabinoids Screen PRESUMPTIVE POSITIVE Physical Exam Const alert, oriented x3, no apparent distress, average body habitus and healthy appearing General Appearance: cooperative, well kempt and well developed Orientation / Consciousness: awake, oriented to person, oriented to place and oriented to time HEENT normocephalic, head/scalp atraumatic and moist oral mucous membranes Eyes PERRL, EOMs intact bilaterally and conjunctivae normal Neck supple, no JVD, thyroid normal and no carotid bruits General: trachea midline Resp normal respiratory effort, no retractions and no use of accessory muscles Auscultation: wheezes expiratory wheezes, right lower, right upper and anterior; Negative for rales or rhonchi Cardio regular rate, regular rhythm, S1 normal heart sound, S2 normal heart sound, no murmurs, no rub and no gallops GI normal to inspection, nondistended, normoactive bowel sounds, soft to palpation, non-tender and non-distended Extremity no clubbing, cyanosis or edema Skin no rashes or lesions noted General Skin Exam: no breakdown Neuro oriented x3, CN's II-XII intact bilaterally, moves all extremities, no focal motor deficits and no sensory deficits noted Sensorium / Orientation: awake and alert Speech: speech normal Psych affect normal Assessment & Plan Assessment/Plan (1) Polysubstance abuse: PLAN: Plan 1. Opiate detox/opiate use disorder-patient will remain on her current medications, she was seen by addiction social insurance specialist today #2 polysubstance abuse-patient's tox was positive for cocaine and cannabinoids and fentanyl #3 asthma-patient will be placed on aerosol treatments due to wheezing today Total clinical time spent by myself addressing the patient's medical issues, reviewing all her data, and collaborating of the patient's care team: 35 minutes Charges/Coding Visit Charges Inpatient E&M: 52283 Subs Hosp L2
[2025-05-20] VITALS (9 sets, daily range): BP systolic 93–115; BP diastolic 47–68; PULSE 76–90; RESP 15–18; TEMP 36.6–36.9; O2SAT 97–100
--- NOTE | 2025-05-20 12:13 | PCM.PN.HOSP ---
Reason for Visit Chief Complaint: Requesting treatment for opiate withdrawal Subjective Subjective Patient states she still is having pretty significant symptoms related to her withdrawal. Complains that she is generally not feeling well. Has been on buprenorphine for 5 doses now. Plan is for 30-day residential treatment at discharge. Objective Data Objective Data Vital Signs: Vital Signs Temp Pulse Resp BP Pulse Ox O2 Del Method 98.4 F 88 16 109/58 L 97 Room Air 05/20/25 08:51 05/20/25 08:51 05/20/25 08:51 05/20/25 08:51 05/20/25 08:51 05/20/25 08:51 Oxygen Delivery Method Room Air Weight: 71 kg Body Mass Index (BMI) 24.5 Intake & Output: Intake and Output for Last 24 Hours 05/18/25 05/19/25 05/20/25 23:59 23:59 23:59 Intake Total 800 / 800 Balance 800 / 800 Lab / Micro Data 05/18/25 18:40 05/18/25 18:40 Physical Exam Const alert, oriented x3, no apparent distress, average body habitus and well nourished; Negative for healthy appearing Constitutional Narrative: Middle-aged, white female, lying in right side-lying, appears if she is not feeling well but does not appear toxic, interacts appropriately Orientation / Consciousness: Negative for confused HEENT head/scalp atraumatic and moist oral mucous membranes Head and Scalp: normocephalic Neuro oriented x3, moves all extremities and no focal motor deficits Psych Psych Narrative: Affect is slightly flat but appropriate for her currently clinical condition, eye contact is good patient interacts appropriately Assessment & Plan Assessment/Plan (1) Desire for detoxification: (2) Polysubstance abuse: (3) Opiate withdrawal: PLAN: Plan Acute opiate withdrawal - Continue buprenorphine taper - Toxicology screen was positive for cannabinoids, cocaine, and fentanyl - Continue supportive medications for symptom management - When ED is following and plan is for residential treatment for 30 days after discharge anticipate discharge in the next 24 to 48 hours depending on symptoms Polysubstance abuse - Recommend cessation of all substances Asthma - Continue as needed aerosols - Wheezing has resolved Tobacco abuse - Recommend cessation - Continue nicotine patch DVT prophylaxis - Low risk - Encourage frequent - Full code ambulation CODE STATUS - Full code Charges/Coding Visit Charges Inpatient E&M: 76439 Subs Hosp L1
[2025-05-20] MEDS: hydrOXYzine PAM 25 MG Capsule 50 MG PO ×2 (13:53→20:03)
[2025-05-21] VITALS (8 sets, daily range): BP systolic 94–118; BP diastolic 57–73; PULSE 70–98; RESP 16–20; TEMP 36.5–36.9; O2SAT 95–100
[2025-05-21] MEDS: hydrOXYzine PAM 25 MG Capsule 50 MG PO ×2 (07:02→14:33)
--- NOTE | 2025-05-21 08:55 | CT_ITS ---
PROCEDURE: ABDOMEN/PELVIS W IV CONT ONLY 05/21/2025 REASON FOR EXAM: PYELO TECHNIQUE: ABDOMEN/PELVIS W IV CONT ONLY Coronal and Sagittal reconstruction series were provided. CONTRAST: Isovue-300 VOLUME: 100 mL One or more dose reduction techniques were used (e.g., Automated exposure control, adjustment of the mA and/or kV according to patient size, use of iterative reconstruction technique. RADIATION DOSE SUMMARY: CTDlvol: 10.6 mGy DLP: 536.51 mGycm COMPARISON: None FINDINGS: Lung bases: Lung bases are clear. Bilateral breast prostheses. Liver: Mild hepatomegaly. Gallbladder: Unremarkable Spleen: Normal size. Pancreas: Normal size without evidence of mass surrounding inflammation or ductal dilation. Adrenals: Unremarkable Kidneys: Normal renal sizes. No hydronephrosis. Bladder: Unremarkable Reproductive Organs: There is a 2.1 cm cyst in the right ovary. IUD is seen within the uterus. Bowel: Large amount of fecal material is seen in the colon. Appendix: Unremarkable Lymph nodes: Unremarkable Vasculature: Unremarkable Peritoneum / Retroperitoneum: Unremarkable Bones: Unremarkable CT/Abdomen/Pelvis W IV Cont ONLY IMPRESSION: Mild hepatomegaly. Small right ovarian cyst. IUD seen within the uterus. Large amount of fecal material is seen in the colon. Reading Location: [id number]
[2025-05-21 09:16] LABS: Mucous, Urine 0 SEEN /hpf (<or=2+)
[2025-05-21 09:20] LABS: Color, Urine Yellow (Yellow); Glucose, Dipstick Normal (Normal); Ketone-Dipstick Negative (Negative); Leukocyte Esterase-Dipstick Negative /ul (Negative); Nitrite-Dipstick Negative (Negative); Occult Blood-Urine 10 /ul (Negative); Protein-Dipstick 15 mg/dl (Negative); Specific Gravity, Urine 1.015 (1.002-1.030); Urine Bilirubin Dipstick Negative (Negative)
[2025-05-21 09:26] LABS: Red Blood Cells-Urine 0-5 SEEN /hpf (0-5); Squamous Epithelial Cells - UA 0-5 SEEN /hpf (5-10)
[2025-05-21] MEDS: Polyethylene Glycol 3350 17 GM PACKET PO ×2 (10:48→21:18)
--- NOTE | 2025-05-21 13:15 | PN.HOSP_ITS ---
Reason for Visit Chief Complaint: Requesting treatment for opiate withdrawal Subjective Subjective Patient states she is feeling better with regards to her opiate detox. Still having some headache and anxiety. Also complaining of bilateral flank pain that started in the right side. States she gets frequent urinary tract infections. Denies any dysuria at this time. We did go ahead and get a CT of her abdomen pelvis that ended up being unremarkable for any acute findings in her kidneys. It does show significant constipation and these results were discussed with the patient. I did discuss with her the UA was unremarkable so we will wait for the urine culture to come back since she is asymptomatic with regards to actual urinary symptoms. Toradol was ordered for pain. Objective Data Objective Data Vital Signs: Vital Signs Temp Pulse Resp BP Pulse Ox O2 Del Method 97.7 F L 82 16 94/62 97 Room Air 05/21/25 08:39 05/21/25 08:39 05/21/25 08:39 05/21/25 08:39 05/21/25 08:39 05/21/25 13:13 Oxygen Delivery Method Room Air Weight: 71 kg Body Mass Index (BMI) 24.5 Intake & Output: Intake and Output for Last 24 Hours 05/19/25 05/20/25 05/21/25 23:59 23:59 23:59 Intake Total 800 / 800 Balance 800 / 800 Lab / Micro Data 05/18/25 18:40 05/18/25 18:40 Labs: Laboratory Results - last 24 hr 05/21/25 09:00: Urine Color Yellow, Urine Clarity Sl. Cloudy, Urine pH 7.0, Ur Specific [place] 1.015, Urine Protein 15 H, Urine Glucose (UA) Normal, Urine Ketones Negative, Urine Occult Blood 10 H, Urine Nitrite Negative, Urine Bilirubin Negative, Urine Urobilinogen Normal, Ur Leukocyte Esterase Negative, Urine RBC 0-5 SEEN, Urine WBC 0 SEEN, Ur Squamous Epith Cells 0-5 SEEN, Urine Bacteria 0 SEEN, Urine Mucus 0 SEEN Radiography Diagnostic Testing: Radiology Impression Abdomen/Pelvis CT 05/21/25 08:55 IMPRESSION: Mild hepatomegaly. Small right ovarian cyst. IUD seen within the uterus. Large amount of fecal material is seen in the colon. Reading Location: [id number] Physical Exam Const alert, oriented x3, no apparent distress, average body habitus and well nourished; Negative for healthy appearing Constitutional Narrative: Middle-aged, white female, lying in bed HEENT normocephalic, head/scalp atraumatic and moist oral mucous membranes Resp normal respiratory effort, no retractions, no use of accessory muscles and clear to auscultation bilaterally Auscultation: wheezes expiratory wheezes, right lower, right upper and anterior; Negative for rales or rhonchi Cardio regular rate, regular rhythm, S1 normal heart sound, S2 normal heart sound, no murmurs, no rub and no gallops GI normal to inspection, nondistended, normoactive bowel sounds, soft to palpation and non-tender GI Narrative: Tenderness in the right flank greater than left flank to very light palpation Extremity no clubbing, cyanosis or edema Neuro oriented x3, moves all extremities and no focal motor deficits Speech: speech normal Psych Psych Narrative: Affect is slightly flat but appropriate for her currently clinical condition, eye contact is good patient interacts appropriately Assessment & Plan Assessment/Plan (1) Desire for detoxification: (2) Polysubstance abuse: (3) Opiate withdrawal: PLAN: Plan Acute opiate withdrawal - Continue buprenorphine taper - Toxicology screen was positive for cannabinoids, cocaine, and fentanyl - Continue supportive medications for symptom management - [facility] is following and plan is for residential treatment for 30 days after discharge anticipate discharge in the next 24 to 48 hours depending on symptoms -[facility] in [place] hopefully tomorrow Polysubstance abuse - Recommend cessation of all substances Flank Pain - CT neg for any pyelonephritis or acute kidney issue but does show some constipation - UA unremarkable and cultures pending - IV Toradol for pain relief Constipation - CT of the abdomen pelvis showed significant constipation with large stool burden - Start MiraLAX 17 g twice daily Asthma - Continue as needed aerosols - Wheezing has resolved Tobacco abuse - Recommend cessation - Continue nicotine patch DVT prophylaxis - Low risk - Encourage frequent - Full code ambulation CODE STATUS - Full code Charges/Coding Visit Charges Inpatient E&M: 41162 Subs Hosp L2
[2025-05-21] MEDS: 0.9% Saline Lock 10 ML Syringe IV (17:41)
[2025-05-22] MEDS: 0.9% Saline Lock 10 ML Syringe IV ×2 (00:06→05:56)
[2025-05-22 02:00] VITALS: BP 127/78; PULSE 86; RESP 16; TEMP 36.8; O2SAT 100
[2025-05-22 05:55] LABS: Hematocrit 41.5 % (37-47); Hemoglobin 13.7 g/dL (12.0-15.0); Mean Corp Hgb Conc 33.0 g/dL (32-36); Mean Corpuscular Volume 98.6 fL (81-99); Mean Platelet Vol. 10.0 fl (6.2-12.0); Platelet Count 242 K/mm3 (150-450); RBC Distribution Width CV 13.2 % (11.6-14.6); RBC Distribution Width SD 48.3 fl (35.1-43.9); Red Blood Count 4.21 M/mm3 (4.2-5.4); White Blood Count 8.3 K/mm3 (4.4-11.0)
[2025-05-22 06:32] LABS: Anion Gap 10 (5-15); BUN 16 mg/dL (4-19); BUN/Creat Ratio 23.3 RATIO (10-20); Calcium,Total 8.6 mg/dL (7.6-11.0); Carbon Dioxide 23.9 mmol/L (21.0-32.0); Chloride 104 mmol/L (98-108); Estimated Creatinine Clearance 110.12 ml/min (50-250); Glucose 108 mg/dL (70-99); Potassium 4.8 mmol/L (3.3-5.1)
[2025-05-22 06:37] VITALS: PULSE 80; RESP 18; O2SAT 96
[2025-05-22 08:15] VITALS: BP 118/73; PULSE 90; RESP 16; TEMP 36.8; O2SAT 99
[2025-05-22] MEDS: Polyethylene Glycol 3350 17 GM PACKET PO (08:25)
--- NOTE | 2025-05-22 10:49 | DS.PCM_ITS ---
Providers Date of Admission: 05/18/25 Date of Discharge: 05/22/25 Primary Care Physician: No Primary Care Phys Reason For Visit: OPIATE WITHDRAWL Diagnosis Discharge Diagnosis (1) Desire for detoxification: Status: Acute (2) Polysubstance abuse: Status: Acute Code(s): F19.10 - Other psychoactive substance abuse, uncomplicated (3) Opiate withdrawal: Status: Acute Code(s): F11.93 - Opioid use, unspecified with withdrawal Medications at Discharge Home Medications albuterol sulfate 90 mcg/actuation aerosol inhaler 1 - 2 puff inhalation Q4H PRN PRN Wheezing ##1 04/17/19 Hospital Course Operations None Procedures - (CT abdomen and pelvis) Summary of Care Provided Minutes Spent on Discharge: 38 Hospital Course: Carine Barba is a 35-year-old white female who presented to the emergency department [facility] on 05/18/2025 requesting treatment for opioid withdrawal. Patient report did on admission that she snorts heroin but also uses marijuana and crack cocaine and occasionally alcohol. Her last use was on 17 May and since that time she had some chills but otherwise has been feeling okay. She indicated that with previous attempts at sobriety her opiate withdrawal symptoms usually begin on day 2 and she feels like she is "crawling out of her skin and feels very unwell." She had not been through our program previously but did reach out to [facility] and they advised her to come to the hospital for treatment. Vital signs on presentation showed temperature of 37.2, heart rate 92, respiratory rate 16, blood pressure was 137/90 and pulse ox was 100% room air. CBC was unremarkable. Chemistry panel was unremarkable. test was negative. Toxicology screen was negative for ethyl alcohol. She did have presumptive positive fentanyl cocaine and cannabinoids on her tox screen. She was admitted to the medical floor and placed on a buprenorphine taper per [facility] protocol as well as supportive medications for symptom management related to her withdrawal. During her hospital course she was concerned that she was possibly developing a UTI due to back pain. Given the back pain and concern for possible pyelonephritis a CT and a UA as well as urine culture were obtained. UA was completely unremarkable. CT abdomen pelvis only showed constipation which was treated with MiraLAX p.o. twice daily and urine culture was unremarkable. Antibiotics were not prescribed. 24 hours after that occurrence her back pain was much improved and she felt better overall. She never had any dysuria. She indicates she wanted residential treatment for 30 days. This was arranged and she was able to be discharged to her rehab facility on 05/22/2025 in stable condition. We have advised her to follow-up with a primary care physician and establish if she is not currently established with a primary care physician. Discharge diagnoses: Acute opiate withdrawal Polysubstance abuse Flank pain Constipation Asthma Tobacco abuse Physical Exam Const alert, oriented x3, no apparent distress, average body habitus, no limitations and well nourished; Negative for healthy appearing Constitutional Narrative: Middle-aged, white female, sitting up in bed watching television, appears much more comfortable than she has in the last 48 hours, appears nontoxic with General Appearance: cooperative, comfortable, well kempt and well developed Exam Limitations: no limitations HEENT normocephalic, head/scalp atraumatic, hearing grossly normal bilaterally and moist oral mucous membranes Neck General: trachea midline Resp normal respiratory effort, no retractions, no use of accessory muscles and clear to auscultation bilaterally Auscultation: wheezes expiratory wheezes, right lower, right upper and anterior; Negative for rales or rhonchi Cardio regular rate, regular rhythm, S1 normal heart sound, S2 normal heart sound, no murmurs, no rub and no gallops GI normal to inspection, nondistended, normoactive bowel sounds, soft to palpation and non-tender Extremity no clubbing, cyanosis or edema Extremity Narrative: Pedal radial pulses are 2+ Neuro oriented x3, moves all extremities and no focal motor deficits Speech: speech normal Psych affect normal Psych Narrative: eye contact is good patient interacts appropriately Weight / BMI Weight Weight: 71 kg Body Mass Index (BMI) 24.5 ABG / Lab / Microbiology Data 05/22/25 05:28 05/22/25 05:28 Laboratory: Laboratory Results - last 24 hr 05/22/25 05:28: WBC 8.3, RBC 4.21, Hgb 13.7, Hct 41.5, MCV 98.6, MCH 32.5 H, MCHC 33.0, RDW Std Deviation 48.3 H, RDW Coeff of Emilia 13.2, Plt Count 242, MPV 10.0, Sodium 137, Potassium 4.8, Chloride 104, Carbon Dioxide 23.9, Anion Gap 10, BUN 16, Creatinine 0.70, Estim Creat Clear Calc 110.12, Est GFR (MDRD) Non- Af 116, BUN/Creatinine Ratio 23.3 H, Glucose 108 H, Calcium 8.6 D/C Instructions Discharge Activity: Return to Normal Activity DC O2, CPAP, BIPAP Needs Home O2 Discharge instructions: No Meaningful Use Info Meaningful Use Meaningful Use Diagnoses (Choose all that apply): None applicable Discharge Plan Admission Admit Date/Time: 05/18/25 19:36 Primary Reason for Your Visit: Opiate detox Attending Provider: Ivonne Sales Primary Care Provider: Care Physician,No Primary Consulting Providers: Trae Brooks; Ruperto Lee Discharge Orders/Prescriptions Prescriptions: Continued albuterol sulfate 1 INHALER inhaler 1 - 2 puff inhalation Q4H PRN PRN (Reason: Wheezing) Qty: 1 0RF Referrals / Follow Up: Care Physician,No Primary [Primary Care Provider] - Disposition Disposition (needs filled in before D/C Order can be placed): Inpatient Rehab Unit/Facility Charges/Coding Visit Charges Inpatient E&M: 13244 Disch Hosp
[2025-05-22] MEDS: hydrOXYzine PAM 25 MG Capsule 50 MG PO (11:07)
--- NOTE | 2025-05-22 11:19 | PHA.DC.MR.R ---
Pharmacy [place] Med Reconciliation Pharmacy Service has performed discharge medication reconciliation for this patient. The patient's discharge medication list was reviewed for discrepancies and discrepancies were resolved. Medications at Discharge Home Medications albuterol sulfate 90 mcg/actuation aerosol inhaler 1 - 2 puff inhalation Q4H PRN PRN Wheezing ##1 04/17/19
--- OUTSIDE RECORDS SUMMARY | 2025-11-08 19:36 | XMS RPT_ITS | CCD ---
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 By: #### L 100.0100, L500.2500 ####[facility] [address] [place], [address] RDW SD Normal 35.1-43.9 [facility] Comment on above: Result Comment: Canc elled via OM: Order cancelled - Patient discharged Performed By: #### L 100.0100, L500.2500 ####[facility] [address] [place], [address] WBC Normal 4.4-11.0 [facility] Comment on above: Result Comment: Canc elled via OM: Order cancelled - Patient discharged Performed By: #### L 100.0100, L500.2500 ####[facility] [address] [place], [address] Basic Metabolic Profile (BMP )on 06-29-2025 BUN Normal 4-19 [facility] Comment on above: Result Comment: Canc elled via OM: Order cancelled - Patient discharged Performed By: #### L 500.2500, L100.0100 ####[facility] [address] [place], [address] BUN/CRE Normal 10-20 [facility] Comment on above: Result Comment: Canc elled via OM: Order cancelled - Patient discharged Performed By: #### L 500.2500, L100.0100 ####[facility] [address] [place], [address] Calcium Normal 7.6-11.0 [facility] Comment on above: Result Comment: Canc elled via OM: Order cancelled - Patient discharged Performed By: #### L 500.2500, L100.0100 ####[facility] [address] [place], [address] CL Normal 98-108 [facility] Comment on above: Result Comment: Canc elled via OM: Order cancelled - Patient discharged Performed By: #### L 500.2500, L100.0100 ####[facility] [address] [place], [address] CO2 Normal 21.0-32.0 [facility] Comment on above: Result Comment: Canc elled via OM: Order cancelled - Patient discharged Performed By: #### L 500.2500, L100.0100 ####[facility] [address] [place], [address] CREAT,SERUM Normal 0.70-1.20 [facility] Comment on above: Result Comment: Canc elled via OM: Order cancelled - Patient discharged Performed By: #### L 500.2500, L100.0100 ####[facility] [address] [place], [address] eGFR Normal >60 [facility] Comment on above: Result Comment: Canc elled via OM: Order cancelled - Patient discharged Performed By: #### L 500.2500, L100.0100 ####[facility] [address] [place], [address] GAP Normal 5-15 [facility] Comment on above: Result Comment: Canc elled via OM: Order cancelled - Patient discharged Performed By: #### L 500.2500, L100.0100 ####[facility] [address] [place], [address] GLU Normal 70-99 [facility] Comment on above: Result Comment: Canc elled via OM: Order cancelled - Patient discharged Performed By: #### L 500.2500, L100.0100 ####[facility] [address] [place], [address] Potassium Normal 3.3-5.1 [facility] Comment on above: Result Comment: Canc elled via OM: Order cancelled - Patient discharged Performed By: #### L 500.2500, L100.0100 ####[facility] [address] [place], [address] Basic Metabolic Profile (BMP) Normal 133-145 [facility] Comment on above: Result Comment: Canc elled via OM: Order cancelled - Patient discharged Performed By: #### L 500.2500, L100.0100 ####[facility] [address] [place], [address] CBC W/Diff, Automatedon 09-0 -2024 Absolute Neut Normal 2.0-7.7 [facility] Comment on above: Result Comment: Canc elled via OM: Order cancelled - Patient discharged Performed By: #### L 500.2500, L100.0100 ####[facility] [address] [place], [address] HCT Normal 37-47 [facility] Comment on above: Result Comment: Canc elled via OM: Order cancelled - Patient discharged Performed By: #### L 500.2500, L100.0100 ####[facility] [address] [place], [address] HGB Normal 12.0-15.0 [facility] Comment on above: Result Comment: Canc elled via OM: Order cancelled - Patient discharged Performed By: #### L 500.2500, L100.0100 ####[facility] [address] [place], [address] MCH Normal 27.0-32.0 [facility] Comment on above: Result Comment: Canc elled via OM: Order cancelled - Patient discharged Performed By: #### L 500.2500, L100.0100 ####[facility] [address] [place], [address] MCHC Normal 32-36 [facility] Comment on above: Result Comment: Canc elled via OM: Order cancelled - Patient discharged Performed By: #### L 500.2500, L100.0100 ####[facility] [address] [place], [address] MCV Normal 81-99 [facility] Comment on above: Result Comment: Canc elled via OM: Order cancelled - Patient discharged Performed By: #### L 500.2500, L100.0100 ####[facility] [address] [place], [address] NEUT% Normal 47-70 [facility] Comment on above: Result Comment: Canc elled via OM: Order cancelled - Patient discharged Performed By: #### L 500.2500, L100.0100 ####[facility] [address] [place], [address] PLT Normal 150-450 [facility] Comment on above: Result Comment: Canc elled via OM: Order cancelled - Patient discharged Performed By: #### L 500.2500, L100.0100 ####[facility] [address] [place], [address] RBC Normal 4.2-5.4 [facility] Comment on above: Result Comment: Canc elled via OM: Order cancelled - Patient discharged Performed By: #### L 500.2500, L100.0100 ####[facility] [address] [place], [address] RDW CV Normal 11.6-14.6 [facility] Comment on above: Result Comment: Canc elled via OM: Order cancelled - Patient discharged Performed By: #### L 500.2500, L100.0100 ####[facility] [address] [place], [address] RDW SD Normal 35.1-43.9 [facility] Comment on above: Result Comment: Canc elled via OM: Order cancelled - Patient discharged Performed By: #### L 500.2500, L100.0100 ####[facility] [address] [place], [address] WBC Normal 4.4-11.0 [facility] Comment on above: Result Comment: Canc elled via OM: Order cancelled - Patient discharged Performed By: #### L 500.2500, L100.0100 ####[facility] [address] [place], [address] Basic Metabolic Profile (BMP )on 06-28-2025 BUN Normal 4-19 [facility] Comment on above: Result Comment: Canc elled via OM: Order cancelled - Patient discharged Performed By: #### L 501.9100, L100.0100, L700.6800, L500.2500, L505.5000 #### [facility] [address] [place], [address] BUN/CRE Normal 10-20 [facility] Comment on above: Result Comment: Canc elled via OM: Order cancelled - Patient discharged Performed By: #### L 501.9100, L100.0100, L700.6800, L500.2500, L505.5000 #### [facility] [address] [place], [address] Calcium Normal 7.6-11.0 [facility] Comment on above: Result Comment: Canc elled via OM: Order cancelled - Patient discharged Performed By: #### L 501.9100, L100.0100, L700.6800, L500.2500, L505.5000 #### [facility] [address] [place], [address] CL Normal 98-108 [facility] Comment on above: Result Comment: Canc elled via OM: Order cancelled - Patient discharged Performed By: #### L 501.9100, L100.0100, L700.6800, L500.2500, L505.5000 #### [facility] [address] [place], [address] CO2 Normal 21.0-32.0 [facility] Comment on above: Result Comment: Canc elled via OM: Order cancelled - Patient discharged Performed By: #### L 501.9100, L100.0100, L700.6800, L500.2500, L505.5000 #### [facility] [address] [place], [address] CREAT,SERUM Normal 0.70-1.20 [facility] Comment on above: Result Comment: Canc elled via OM: Order cancelled - Patient discharged Performed By: #### L 501.9100, L100.0100, L700.6800, L500.2500, L505.5000 #### [facility] [address] [place], [address] eGFR Normal >60 [facility] Comment on above: Result Comment: Canc elled via OM: Order cancelled - Patient discharged Performed By: #### L 501.9100, L100.0100, L700.6800, L500.2500, L505.5000 #### [facility] [address] [place], [address] GAP Normal 5-15 [facility] Comment on above: Result Comment: Canc elled via OM: Order cancelled - Patient discharged Performed By: #### L 501.9100, L100.0100, L700.6800, L500.2500, L505.5000 #### [facility] [address] [place], [address] GLU Normal 70-99 [facility] Comment on above: Result Comment: Canc elled via OM: Order cancelled - Patient discharged Performed By: #### L 501.9100, L100.0100, L700.6800, L500.2500, L505.5000 #### [facility] [address] [place], [address] Potassium Normal 3.3-5.1 [facility] Comment on above: Result Comment: Canc elled via OM: Order cancelled - Patient discharged Performed By: #### L 501.9100, L100.0100, L700.6800, L500.2500, L505.5000 #### [facility] [address] [place], [address] Basic Metabolic Profile (BMP) Normal 133-145 [facility] Comment on above: Result Comment: Canc elled via OM: Order cancelled - Patient discharged Performed By: #### L 501.9100, L100.0100, L700.6800, L500.2500, L505.5000 #### [facility] [address] [place], [address] CBC W/Diff, Automatedon 09-0 -2024 Absolute Neut Normal 2.0-7.7 [facility] Comment on above: Result Comment: Canc elled via OM: Order cancelled - Patient discharged Performed By: #### L 501.9100, L100.0100, L700.6800, L500.2500, L505.5000 #### [facility] [address] [place], [address] HCT Normal 37-47 [facility] Comment on above: Result Comment: Canc elled via OM: Order cancelled - Patient discharged Performed By: #### L 501.9100, L100.0100, L700.6800, L500.2500, L505.5000 #### [facility] [address] [place], [address] HGB Normal 12.0-15.0 [facility] Comment on above: Result Comment: Canc elled via OM: Order cancelled - Patient discharged Performed By: #### L 501.9100, L100.0100, L700.6800, L500.2500, L505.5000 #### [facility] [address] [place], [address] MCH Normal 27.0-32.0 [facility] Comment on above: Result Comment: Canc elled via OM: Order cancelled - Patient discharged Performed By: #### L 501.9100, L100.0100, L700.6800, L500.2500, L505.5000 #### [facility] [address] [place], [address] MCHC Normal 32-36 [facility] Comment on above: Result Comment: Canc elled via OM: Order cancelled - Patient discharged Performed By: #### L 501.9100, L100.0100, L700.6800, L500.2500, L505.5000 #### [facility] [address] [place], [address] MCV Normal 81-99 [facility] Comment on above: Result Comment: Canc elled via OM: Order cancelled - Patient discharged Performed By: #### L 501.9100, L100.0100, L700.6800, L500.2500, L505.5000 #### [facility] [address] [place], [address] NEUT% Normal 47-70 [facility] Comment on above: Result Comment: Canc elled via OM: Order cancelled - Patient discharged Performed By: #### L 501.9100, L100.0100, L700.6800, L500.2500, L505.5000 #### [facility] [address] [place], [address] PLT Normal 150-450 [facility] Comment on above: Result Comment: Canc elled via OM: Order cancelled - Patient discharged Performed By: #### L 501.9100, L100.0100, L700.6800, L500.2500, L505.5000 #### [facility] [address] [place], [address] RBC Normal 4.2-5.4 [facility] Comment on above: Result Comment: Canc elled via OM: Order cancelled - Patient discharged Performed By: #### L 501.9100, L100.0100, L700.6800, L500.2500, L505.5000 #### [facility] [address] [place], [address] RDW CV Normal 11.6-14.6 [facility] Comment on above: Result Comment: Canc elled via OM: Order cancelled - Patient discharged Performed By: #### L 501.9100, L100.0100, L700.6800, L500.2500, L505.5000 #### [facility] [address] [place], [address] RDW SD Normal 35.1-43.9 [facility] Comment on above: Result Comment: Canc elled via OM: Order cancelled - Patient discharged Performed By: #### L 501.9100, L100.0100, L700.6800, L500.2500, L505.5000 #### [facility] [address] [place], [place], [address] WBC Normal 4.4-11.0 [facility] Comment on above: Result Comment: Canc elled via OM: Order cancelled - Patient discharged Performed By: #### L 501.9100, L100.0100, L700.6800, L500.2500, L505.5000 #### [facility] [address] [place], [place], [address] 36on 06-27-2025 36 RX was sent yesterda y 06/26/25 RX Duplicate Normal [facility] Basic Metabolic Profile (BMP )on 06-27-2025 BUN Normal 4-19 [facility] Comment on above: Result Comment: Canc elled via OM: Order cancelled - Patient discharged Performed By: #### L 501.9100, L100.0100, L700.6800, L500.2500, L505.5000 #### [facility] [address] [place], [place], [address] BUN/CRE Normal 10-20 [facility] Comment on above: Result Comment: Canc elled via OM: Order cancelled - Patient discharged Performed By: #### L 501.9100, L100.0100, L700.6800, L500.2500, L505.5000 #### [facility] [address] [place], [address] Calcium Normal 7.6-11.0 [facility] Comment on above: Result Comment: Canc elled via OM: Order cancelled - Patient discharged Performed By: #### L 501.9100, L100.0100, L700.6800, L500.2500, L505.5000 #### [facility] [address] [place], [address] CL Normal 98-108 [facility] Comment on above: Result Comment: Canc elled via OM: Order cancelled - Patient discharged Performed By: #### L 501.9100, L100.0100, L700.6800, L500.2500, L505.5000 #### [facility] [address] [place], [address] CO2 Normal 21.0-32.0 [facility] Comment on above: Result Comment: Canc elled via OM: Order cancelled - Patient discharged Performed By: #### L 501.9100, L100.0100, L700.6800, L500.2500, L505.5000 #### [facility] [address] [place], [address] CREAT,SERUM Normal 0.70-1.20 [facility] Comment on above: Result Comment: Canc elled via OM: Order cancelled - Patient discharged Performed By: #### L 501.9100, L100.0100, L700.6800, L500.2500, L505.5000 #### [facility] [address] [place], [address] eGFR Normal >60 [facility] Comment on above: Result Comment: Canc elled via OM: Order cancelled - Patient discharged Performed By: #### L 501.9100, L100.0100, L700.6800, L500.2500, L505.5000 #### [facility] [address] [place], [address] GAP Normal 5-15 [facility] Comment on above: Result Comment: Canc elled via OM: Order cancelled - Patient discharged Performed By: #### L 501.9100, L100.0100, L700.6800, L500.2500, L505.5000 #### [facility] [address] [place], [address] GLU Normal 70-99 [facility] Comment on above: Result Comment: Canc elled via OM: Order cancelled - Patient discharged Performed By: #### L 501.9100, L100.0100, L700.6800, L500.2500, L505.5000 #### [facility] [address] [place], [address] Potassium Normal 3.3-5.1 [facility] Comment on above: Result Comment: Canc elled via OM: Order cancelled - Patient discharged Performed By: #### L 501.9100, L100.0100, L700.6800, L500.2500, L505.5000 #### [facility] [address] [place], [address] Basic Metabolic Profile (BMP) Normal 133-145 [facility] Comment on above: Result Comment: Canc elled via OM: Order cancelled - Patient discharged Performed By: #### L 501.9100, L100.0100, L700.6800, L500.2500, L505.5000 #### [facility] [address] [place], [address] CBC W/Diff, Automatedon 09-0 Absolute Neut Normal 2.0-7.7 [facility] Comment on above: Result Comment: Canc elled via OM: Order cancelled - Patient discharged Performed By: #### L 501.9100, L100.0100, L700.6800, L500.2500, L505.5000 #### [facility] [address] [place], [address] HCT Normal 37-47 [facility] Comment on above: Result Comment: Canc elled via OM: Order cancelled - Patient discharged Performed By: #### L 501.9100, L100.0100, L700.6800, L500.2500, L505.5000 #### [facility] [address] [place], [address] HGB Normal 12.0-15.0 [facility] Comment on above: Result Comment: Canc elled via OM: Order cancelled - Patient discharged Performed By: #### L 501.9100, L100.0100, L700.6800, L500.2500, L505.5000 #### [facility] [address] [place], [address] MCH Normal 27.0-32.0 [facility] Comment on above: Result Comment: Canc elled via OM: Order cancelled - Patient discharged Performed By: #### L 501.9100, L100.0100, L700.6800, L500.2500, L505.5000 #### [facility] [address] [place], [address] MCHC Normal 32-36 [facility] Comment on above: Result Comment: Canc elled via OM: Order cancelled - Patient discharged Performed By: #### L 501.9100, L100.0100, L700.6800, L500.2500, L505.5000 #### [facility] [address] [place], [address] MCV Normal 81-99 [facility] Comment on above: Result Comment: Canc elled via OM: Order cancelled - Patient discharged Performed By: #### L 501.9100, L100.0100, L700.6800, L500.2500, L505.5000 #### [facility] [address] [place], [address] NEUT% Normal 47-70 [facility] Comment on above: Result Comment: Canc elled via OM: Order cancelled - Patient discharged Performed By: #### L 501.9100, L100.0100, L700.6800, L500.2500, L505.5000 #### [facility] [address] [place], [address] PLT Normal 150-450 [facility] Comment on above: Result Comment: Canc elled via OM: Order cancelled - Patient discharged Performed By: #### L 501.9100, L100.0100, L700.6800, L500.2500, L505.5000 #### [facility] [address] [place], [address] RBC Normal 4.2-5.4 [facility] Comment on above: Result Comment: Canc elled via OM: Order cancelled - Patient discharged Performed By: #### L 501.9100, L100.0100, L700.6800, L500.2500, L505.5000 #### [facility] [address] [place], [address] RDW CV Normal 11.6-14.6 [facility] Comment on above: Result Comment: Canc elled via OM: Order cancelled - Patient discharged Performed By: #### L 501.9100, L100.0100, L700.6800, L500.2500, L505.5000 #### [facility] [address] [place], [address] RDW SD Normal 35.1-43.9 [facility] Comment on above: Result Comment: Canc elled via OM: Order cancelled - Patient discharged Performed By: #### L 501.9100, L100.0100, L700.6800, L500.2500, L505.5000 #### [facility] [address] [place], [address] WBC Normal 4.4-11.0 [facility] Comment on above: Result Comment: Canc elled via OM: Order cancelled - Patient discharged Performed By: #### L 501.9100, L100.0100, L700.6800, L500.2500, L505.5000 #### [facility] [address] [place], [address] 36on 06-26-2025 36 Patient called 06/26/25 Returning our call from last week, we had called to try to schedule appointment with Dr Shah. Insurance approved her injections. I was able to schedule patient for 07/04/25 patient did state that she would be out of Rx buprenorphine-naloxone (Suboxone) 8-2 MG per sublingual film Let patient know that I would send Dr Shah a message [facility] 36 Last visit 06/17/25 Next visit 07/04/25 RX buprenorphine-naloxone (Suboxone) 8-2 MG per sublingual film Patient called returning our call about scheduling appointment. She has to set up transportation with insurance. We were scheduling for injection insurance approved [facility] Basic Metabolic Profile (BMP )on 06-26-2025 BUN Normal 4-19 [facility] Comment on above: Result Comment: Canc elled via OM: Order cancelled - Patient discharged Performed By: #### L 501.9100, L100.0100, L700.6800, L500.2500, L505.5000 #### [facility] [address] [place], [address] BUN/CRE Normal 10-20 [facility] Comment on above: Result Comment: Canc elled via OM: Order cancelled - Patient discharged Performed By: #### L 501.9100, L100.0100, L700.6800, L500.2500, L505.5000 #### [facility] [address] [place], [address] Calcium Normal 7.6-11.0 [facility] Comment on above: Result Comment: Canc elled via OM: Order cancelled - Patient discharged Performed By: #### L 501.9100, L100.0100, L700.6800, L500.2500, L505.5000 #### [facility] [address] [place], [address] CL Normal 98-108 [facility] Comment on above: Result Comment: Canc elled via OM: Order cancelled - Patient discharged Performed By: #### L 501.9100, L100.0100, L700.6800, L500.2500, L505.5000 #### [facility] [address] [place], [address] CO2 Normal 21.0-32.0 [facility] Comment on above: Result Comment: Canc elled via OM: Order cancelled - Patient discharged Performed By: #### L 501.9100, L100.0100, L700.6800, L500.2500, L505.5000 #### [facility] [address] [place], [address] CREAT,SERUM Normal 0.70-1.20 [facility] Comment on above: Result Comment: Canc elled via OM: Order cancelled - Patient discharged Performed By: #### L 501.9100, L100.0100, L700.6800, L500.2500, L505.5000 #### [facility] [address] [place], [address] eGFR Normal >60 [facility] Comment on above: Result Comment: Canc elled via OM: Order cancelled - Patient discharged Performed By: #### L 501.9100, L100.0100, L700.6800, L500.2500, L505.5000 #### [facility] [address] [place], [address] GAP Normal 5-15 [facility] Comment on above: Result Comment: Canc elled via OM: Order cancelled - Patient discharged Performed By: #### L 501.9100, L100.0100, L700.6800, L500.2500, L505.5000 #### [facility] [address] [place], [address] GLU Normal 70-99 [facility] Comment on above: Result Comment: Canc elled via OM: Order cancelled - Patient discharged Performed By: #### L 501.9100, L100.0100, L700.6800, L500.2500, L505.5000 #### [facility] [address] [place], [address] Potassium Normal 3.3-5.1 [facility] Comment on above: Result Comment: Canc elled via OM: Order cancelled - Patient discharged Performed By: #### L 501.9100, L100.0100, L700.6800, L500.2500, L505.5000 #### [facility] [address] [place], [address] Basic Metabolic Profile (BMP) Normal 133-145 [facility] Comment on above: Result Comment: Canc elled via OM: Order cancelled - Patient discharged Performed By: #### L 501.9100, L100.0100, L700.6800, L500.2500, L505.5000 #### [facility] [address] [place], [address] CBC W/Diff, Automatedon 09-0 -2024 Absolute Neut Normal 2.0-7.7 [facility] Comment on above: Result Comment: Canc elled via OM: Order cancelled - Patient discharged Performed By: #### L 501.9100, L100.0100, L700.6800, L500.2500, L505.5000 #### [facility] [address] [place], [address] HCT Normal 37-47 [facility] Comment on above: Result Comment: Canc elled via OM: Order cancelled - Patient discharged Performed By: #### L 501.9100, L100.0100, L700.6800, L500.2500, L505.5000 #### [facility] [address] [place], [address] HGB Normal 12.0-15.0 [facility] Comment on above: Result Comment: Canc elled via OM: Order cancelled - Patient discharged Performed By: #### L 501.9100, L100.0100, L700.6800, L500.2500, L505.5000 #### [facility] [address] [place], [address] MCH Normal 27.0-32.0 [facility] Comment on above: Result Comment: Canc elled via OM: Order cancelled - Patient discharged Performed By: #### L 501.9100, L100.0100, L700.6800, L500.2500, L505.5000 #### [facility] [address] [place], [address] MCHC Normal 32-36 [facility] Comment on above: Result Comment: Canc elled via OM: Order cancelled - Patient discharged Performed By: #### L 501.9100, L100.0100, L700.6800, L500.2500, L505.5000 #### [facility] [address] [place], [address] MCV Normal 81-99 [facility] Comment on above: Result Comment: Canc elled via OM: Order cancelled - Patient discharged Performed By: #### L 501.9100, L100.0100, L700.6800, L500.2500, L505.5000 #### [facility] [address] [place], [address] NEUT% Normal 47-70 [facility] Comment on above: Result Comment: Canc elled via OM: Order cancelled - Patient discharged Performed By: #### L 501.9100, L100.0100, L700.6800, L500.2500, L505.5000 #### [facility] [address] [place], [address] PLT Normal 150-450 [facility] Comment on above: Result Comment: Canc elled via OM: Order cancelled - Patient discharged Performed By: #### L 501.9100, L100.0100, L700.6800, L500.2500, L505.5000 #### [facility] [address] [place], [address] RBC Normal 4.2-5.4 [facility] Comment on above: Result Comment: Canc elled via OM: Order cancelled - Patient discharged Performed By: #### L 501.9100, L100.0100, L700.6800, L500.2500, L505.5000 #### [facility] [address] [place], [address] RDW CV Normal 11.6-14.6 [facility] Comment on above: Result Comment: Canc elled via OM: Order cancelled - Patient discharged Performed By: #### L 501.9100, L100.0100, L700.6800, L500.2500, L505.5000 #### [facility] [address] [place], [address] RDW SD Normal 35.1-43.9 [facility] Comment on above: Result Comment: Canc elled via OM: Order cancelled - Patient discharged Performed By: #### L 501.9100, L100.0100, L700.6800, L500.2500, L505.5000 #### [facility] [address] [place], [address] WBC Normal 4.4-11.0 [facility] Comment on above: Result Comment: Canc elled via OM: Order cancelled - Patient discharged Performed By: #### L 501.9100, L100.0100, L700.6800, L500.2500, L505.5000 #### [facility] [address] [place], [address] Respiratory Cultureon 2024 RESPC List Antibiotics [place] 48 Hours? none List Antibiotics to be Started? iv levaquin #2 Ampicillin can be used for Beta-Lactamase negative isolates. Microorganism Spec Cult Trimeth/Sulfa, Chloramphenicol, Cefotaxime, Ciprofloxacin, Amoxicillin/Clavulanic Acid, and Oral 2nd/3rd Generation Cephalosporins are effective against both Beta-Lactamase positive and Beta-Lactamase negative isolates. Staphylococcus aureus Amount Growth 1+ Haemophilus influenzae Amount Growth 2+ Beta Lactamase-Reportable Negative Staphylococcus aureus: REACTION cefOXitin Susc Islt NEG Doxycycline Islt EB <=0.5 S Clindamycin Islt EB <=0.12 S Clindamycin.induced Susc Islt NEG Erythromycin Islt EB <=0.25 S Gentamicin Islt EB <=0.5 S Linezolid Islt EB 2 S Moxifloxacin Islt EB <=0.25 S Oxacillin Susc Islt 0.5 S Tetracycline Islt EB <=1 S TMP SMX Islt EB <=10 S Vancomycin Islt EB 1 S Normal [facility] Comment on above: Performed By: #### M 100.2000, M100.2400 ####[facility] [address] [facility] [place], [address] Absolute lymphocyte countOrd ered By: Gifty Holden on 06-25-2025 Lymphocytes Auto (Unsp spec) [#/Vol] 1.27 10*3/uL 0.83-4.51 [facility] Absolute neutrophil countOrd ered By: Gifty Holden on 06-25-2025 Neutrophils (Bld) [#/Vol] 14.4 10*3/uL High 2.0-7.7 [facility] Anion gap in Serum or Plasma Ordered By: Gifty Holden on 06-25-2025 Anion gap [Moles/Vol] 10 mmol/L 5-15 [facility] Automated lymphocyte count a s percentage of total leukocytesOrdered By: Gifty Holden on 06-25-2025 Lymphocytes/100 WBC Auto (Unsp spec) 7.7 % Low 19-41 [facility] BUN/creatinine ratioOrdered By: Gifty Holden on 06-25-2025 Urea nitrogen/Creatinine [Mass ratio] 25.4 mg/mg High 10-20 [facility] Basic Metabolic Profile (BMP )on 06-25-2025 BUN/CRE 25.4 RATIO High 10-20 [facility] Comment on above: Performed By: #### L 100.0100, L500.2500 ####[facility] [address] [place], [address] Calcium [Mass/Vol] 9.6 mg/dL Normal 7.6-11.0 [facility] Comment on above: Performed By: #### L 100.0100, L500.2500 ####[facility] [address] [place], [address] Chloride [Moles/Vol] 102 mmol/L Normal 98-108 [facility] Comment on above: Performed By: #### L 100.0100, L500.2500 ####[facility] [address] [place], [address] CO2 [Moles/Vol] 24.4 mmol/L Normal 21.0-32.0 [facility] Comment on above: Performed By: #### L 100.0100, L500.2500 ####[facility] [address] [place], [address] Creatinine [Mass/Vol] 0.69 mg/dL Low 0.70-1.20 [facility] Comment on above: Performed By: #### L 100.0100, L500.2500 ####[facility] [address] [place], [address] ECRCL 126.44 ml/min Normal 50-250 [facility] Comment on above: Performed By: #### L 100.0100, L500.2500 ####[facility] [address] [place], [address] GAP 10 Normal 5-15 [facility] Comment on above: Performed By: #### L 100.0100, L500.2500 ####[facility] [address] [place], [address] GFR/1.73 sq M.predicted among non-blacks MDRD (S/P/Bld) [Vol rate/Area] 117 mL/min/{1.73_m2} Normal >60 [facility] Comment on above: Result Comment: mL/m in/1.73m2 CKD-EPI Creatinine Equation (2020) Performed By: #### L 100.0100, L500.2500 ####[facility] [address] [place], [address] Glucose [Mass/Vol] 154 mg/dL High 70-99 [facility] Comment on above: Performed By: #### L 100.0100, L500.2500 ####[facility] [address] [place], [address] Potassium [Moles/Vol] 4.4 mmol/L Normal 3.3-5.1 [facility] Comment on above: Performed By: #### L 100.0100, L500.2500 ####[facility] [address] [place], [address] Sodium [Moles/Vol] 137 mmol/L Normal 133-145 [facility] Comment on above: Performed By: #### L 100.0100, L500.2500 ####[facility] [address] [place], [address] Urea nitrogen [Mass/Vol] 18 mg/dL Normal 4-19 [facility] Comment on above: Performed By: #### L 100.0100, L500.2500 ####[facility] [address] [place], [address] Basophil percentageOrdered B y: Gifty Trinhgus on 09-02-2025 Basophils/100 WBC (Bld) 0.1 % 0-1 [facility] CBC W/Diff, Automatedon 09-0 2-2024 Absolute Lymph 1.27 X10 3/uL Normal 0.83-4.51 [facility] Comment on above: Performed By: #### L 100.0100, L500.2500 ####[facility] [address] [place], [address] Absolute Neut 14.4 X10 3/uL High 2.0-7.7 [facility] Comment on above: Performed By: #### L 100.0100, L500.2500 ####[facility] [address] [place], [address] Basophils/100 WBC (Bld) 0.1 % Normal 0-1 [facility] Comment on above: Performed By: #### L 100.0100, L500.2500 ####[facility] [address] [place], [address] Eosinophils/100 WBC (Bld) 0.0 % Normal 0-5 [facility] Comment on above: Performed By: #### L 100.0100, L500.2500 ####[facility] [address] [place], [address] Erythrocyte distribution width (RBC) [Ratio] 14.1 % Normal 11.6-14.6 [facility] Comment on above: Performed By: #### L 100.0100, L500.2500 ####[facility] [address] [place], [address] Hematocrit (Bld) [Volume fraction] 34.8 % Low 37-47 [facility] Comment on above: Performed By: #### L 100.0100, L500.2500 ####[facility] [address] [place], [address] Hemoglobin (Bld) [Mass/Vol] 11.7 g/dL Low 12.0-15.0 [facility] Comment on above: Performed By: #### L 100.0100, L500.2500 ####[facility] [address] [place], [address] IG% 0.700 Normal 0.0-0.9 [facility] Comment on above: Result Comment: IG% - Immature Granulocytes (promyelocytes, myelocytes and metamyelocytes) > 1% indicates that a LEFT SHIFT is Present. Performed By: #### L 100.0100, L500.2500 ####[facility] [address] [place], [address] Lymphocytes/100 WBC (Bld) 7.7 % Low 19-41 [facility] Comment on above: Performed By: #### L 100.0100, L500.2500 ####[facility] [address] [place], [address] MCH (RBC) [Entitic mass] 32.8 pg High 27.0-32.0 [facility] Comment on above: Performed By: #### L 100.0100, L500.2500 ####[facility] [address] [place], [address] MCHC (RBC) [Mass/Vol] 33.6 g/dL Normal 32-36 [facility] Comment on above: Performed By: #### L 100.0100, L500.2500 ####[facility] [address] [place], [address] MCV (RBC) [Entitic vol] 97.5 fL Normal 81-99 [facility] Comment on above: Performed By: #### L 100.0100, L500.2500 ####[facility] [address] [place], [address] Monocytes/100 WBC (Bld) 4.5 % Normal 0-10 [facility] Comment on above: Performed By: #### L 100.0100, L500.2500 ####[facility] [address] [place], [address] Neutrophils/100 WBC (Bld) 87.0 % High 47-70 [facility] Comment on above: Performed By: #### L 100.0100, L500.2500 ####[facility] [address] [place], [address] Nucleated RBC (Bld) [#/Vol] 0 10*3/uL Normal 0-5 [facility] Comment on above: Performed By: #### L 100.0100, L500.2500 ####[facility] [address] [place], [address] Platelet mean volume (Bld) [Entitic vol] 9.7 fL Normal 6.2-12.0 [facility] Comment on above: Performed By: #### L 100.0100, L500.2500 ####[facility] [address] [place], [address] Platelets (Bld) [#/Vol] 298 10*3/uL Normal 150-450 [facility] Comment on above: Performed By: #### L 100.0100, L500.2500 ####[facility] [address] [place], [address] RBC (Bld) [#/Vol] 3.57 10*6/uL Low 4.2-5.4 [facility] Comment on above: Performed By: #### L 100.0100, L500.2500 ####[facility] [address] [place], [address] RDW SD 50.3 fl High 35.1-43.9 [facility] Comment on above: Performed By: #### L 100.0100, L500.2500 ####[facility] [address] [place], [address] WBC (Bld) [#/Vol] 16.5 10*3/uL High 4.4-11.0 [facility] Comment on above: Performed By: #### L 100.0100, L500.2500 ####[facility] [address] [place], [address] Carbon dioxide, total [Moles /volume] in Central venous bloodOrdered By: Gifty Holden on 06-25-2025 CO2 [Moles/Vol] 24.4 mmol/L 21.0-32.0 [facility] Chloride assayOrdered By: Na mariza Holden on 06-25-2025 Chloride [Moles/Vol] 102 mmol/L 98-108 [facility] Discharge Instructionon Discharge Instruction [facility] Medical Records Department [address] [place] [address] Instructions for Home/Discharge Instructions 06/25/25 1150 MR#: [id number] Acct: [id number] Name: CARINE BARBA Rep #: [id number] : 1990 35 From: Gifty Holden MD PCP: Care Physician,No Primary Status:ADM IN Discharge Instructions DC O2, CPAP, BIPAP needs Home O2 Discharge instructions: No Dressing / Incision Discharge Activity: Return to Normal Activity Weight Bearing Status: Weight bearing as tolerated Dressing / Incision Call your doctor if you observe: Fever of 101 or Higher, Shortness of breath, Dizziness, Swelling in the ankles and Chest pain Follow Up Care Test Results: Test results from this visit will be discussed in further detail at your follow-up appointment, if applicable. Discharge Plan Admission Admit Date/Time: 06/23/25 12:55 Primary Reason for Your Visit: pneumonia, acute asthma exacerbation Attending Provider: Gifty Holden Primary Care Provider: Care Physician,No Primary Consulting Providers: Mark Anthony Gregorio Instructions Patient Instructions: ED Pneumonia (Adult), Asthma Discharge Orders/Prescriptions Prescriptions: New prednisone 20 mg tablet 40 mg PO DAILY Qty: 10 0RF levofloxacin 500 mg tablet 500 mg PO DAILY Qty: 5 0RF albuterol sulfate 90 mcg/actuation aerosol powdr breath activated 2 inh inhalation Q4H PRN (Reason: shortness of breath or wheezing) Qty: 1 0RF Continued quetiapine 400 mg tablet 400 mg PO QHS lithium carbonate 600 mg capsule 600 mg PO QHS gabapentin 300 mg capsule 600 mg PO TID quetiapine 100 mg tablet 100 mg PO .qid buprenorphine-naloxone 8-2 mg film 1 ea sublingual BID albuterol sulfate [Ventolin HFA] 90 mcg/actuation HFA aerosol inhaler 2 puff inhalation Q6H PRN (Reason: shortness of breath or wheezing) Qty: 6.7 0RF Discontinued albuterol sulfate 1 INHALER inhaler 1 - 2 puff inhalation Q4H PRN PRN (Reason: Wheezing) Qty: 1 0RF Referrals / Follow Up: Jaz Fournier MD [Med Staff - Active Staff] - Within 2 Weeks (see to establish PCP care) Care Physician,No Primary [Primary Care Provider] - Disposition Disposition (needs filled in before D/C Order can be placed): Home, Self Care 06/25/25 1151 Gifty Holden MD CC: Dr. Mark Anthony Gregorio DO; No Primary Care Physician Signed Normal [facility] Electrocardiogram reportOrde red By: Giancarlo Rhodes on 06-25-2025 EKG study [facility] Cardiovascular Services [address] [place] [address] 12 Lead EKG 06/23/25 1032 MR#: [id number] Acct: [id number] Name: CARINE BARBA Rep #:[id number] : 1990 35 From: Giancarlo mariscal MD Attending Dr: Dr. Gifty Holden MD Status: ADM IN Ordering Dr: Jeff Noe DO Date: 06/23/25 Location: [facility] Sex: F C Admitted: 06/23/25 Test Reason : SOB Blood Pressure : */* mmHG Vent. Rate : 102 BPM Atrial Rate : 102 BPM P-R Int : 144 ms QRS Dur : 88 ms QT Int : 364 ms P-R-T Axes : 78 77 45 degrees QTcB Int : 474 ms Sinus tachycardia Nonspecific T wave abnormality Abnormal ECG Confirmed by Giancarlo Rhodes ([id number]), assistant film editor PAM REY ([id number]) on 06/25/2025 10:36:28 AM Referred By: Confirmed By: Giancarlo Rhodes 06/25/25 1036 Date _ Giancarlo Rhodes MD CC: Dr. Gifty Holden MD; Dr. Jeff Noe DO; No Primary Care Physician ~ Signed [facility] Other Eosinophil percentageOrdered By: Gifty Holden on 06-25-2025 Eosinophils/100 WBC (Bld) 0.0 % 0-5 [facility] Erythrocyte distribution wid th ratioOrdered By: Gifty Holden on 06-25-2025 Erythrocyte distribution width (RBC) [Ratio] 14.1 % 11.6-14.6 [facility] Erythrocyte distribution wid th standard deviationOrdered By: Gifty Holden on 06-25-2025 Erythrocyte distribution width (RBC) [Ratio] 50.3 fl High 35.1-43.9 [facility] Glomerular filtration rate ( GFR) estimation/1.73 sq m using serum, plasma, or whole bOrdered By: Gifty Holden on 06-25-2025 GFR/1.73 sq M.predicted among non-blacks MDRD (S/P/Bld) [Vol rate/Area] 117 mL/min/{1.73_m2} >60 [facility] Comment on above: mL/min/1.73m2 CKD-EP I Creatinine Equation (2020) Hematocrit Auto (Bld) [Volum e fraction]Ordered By: Gifty Holden on 06-25-2025 Hematocrit (Bld) [Volume fraction] 34.8 % Low 37-47 [facility] Hemoglobin measurementOrdere d By: Gifty Holden on 06-25-2025 Hemoglobin (Bld) [Mass/Vol] 11.7 g/dL Low 12.0-15.0 [facility] Immature granulocytes/100 WB C Auto (Bld)Ordered By: Gifty Holden on 06-25-2025 Immature granulocytes/100 WBC (Bld) 0.700 % 0.0-0.9 [facility] Comment on above: IG% - Immature Granu locytes (promyelocytes, myelocytes and metamyelocytes) > 1% indicates that a LEFT SHIFT is Present. MCV (mean corpuscular volume ) determinationOrdered By: Gifty Holden on 06-25-2025 MCV (RBC) [Entitic vol] 97.5 fL 81-99 [facility] Mean corpuscular hemoglobin (MCH) determinationOrdered By: Gifty Holden on 06-25-2025 MCH (RBC) [Entitic mass] 32.8 pg High 27.0-32.0 [facility] Mean corpuscular hemoglobin concentration (MCHC) determinationOrdered By: Gifty Holden on 06-25-2025 MCHC (RBC) [Mass/Vol] 33.6 g/dL 32-36 [facility] Mean platelet volume determi nationOrdered By: Gifty Holden on 06-25-2025 Platelet mean volume (Bld) [Entitic vol] 9.7 fL 6.2-12.0 [facility] Monocyte percentageOrdered B y: Gifty Holden on 06-25-2025 Monocytes/100 WBC (Bld) 4.5 % 0-10 [facility] Neutrophil percentageOrdered By: Gifty Holden on 06-25-2025 Neutrophils/100 WBC (Bld) 87.0 % High 47-70 [facility] Nucleated red blood cell per centageOrdered By: Gifty Holden on 06-25-2025 Nucleated RBC/100 WBC (Bld) [Ratio] 0 % 0-5 [facility] Platelet countOrdered By: Na mariza Holden on 06-25-2025 Platelets (Bld) [#/Vol] 298 10*3/uL 150-450 [facility] Potassium measurement (mass/ volume)Ordered By: Gifty Holden on 06-25-2025 Potassium (Unsp spec) [Mass/Vol] 4.4 mmol/L 3.3-5.1 [facility] RBC Auto (Bld) [#/Vol]Ordere d By: Gifty Holden on 06-25-2025 RBC (Bld) [#/Vol] 3.57 10*6/uL Low 4.2-5.4 [facility] Serum creatinine measurement (mass/volume)Ordered By: Gifty Holden on 06-25-2025 Creatinine [Mass/Vol] 0.69 mg/dL Low 0.70-1.20 [facility] Serum glucose measurement (m ass/volume)Ordered By: Gifty Holden on 06-25-2025 Glucose [Mass/Vol] 154 mg/dL High 70-99 [facility] Serum or plasma calcium emily urement (mass/volume)Ordered By: Gifty Holden on 06-25-2025 Calcium [Mass/Vol] 9.6 mg/dL 7.6-11.0 [facility] Serum or plasma urea nitroge n measurement (mass/volume)Ordered By: Gifty Holden on 06-25-2025 Urea nitrogen [Mass/Vol] 18 mg/dL 4-19 [facility] Sodium levelOrdered By: [facility] on 06-25-2025 Sodium [Moles/Vol] 137 mmol/L 133-145 [facility] White blood cell (WBC) count Ordered By: Gifty Holden on 06-25-2025 WBC (Bld) [#/Vol] 16.5 10*3/uL High 4.4-11.0 [facility] Basic Metabolic Profile (BMP )on 06-24-2025 BUN/CRE 24.9 RATIO High 10-20 [facility] Comment on above: Performed By: #### L 501.9100, L100.0100, L700.6800, L500.2500, L505.5000 #### [facility] Laboratory [address] [place], [address] Calcium [Mass/Vol] 9.5 mg/dL Normal 7.6-11.0 [facility] Comment on above: Performed By: #### L 501.9100, L100.0100, L700.6800, L500.2500, L505.5000 #### [facility] Laboratory [address] [place], [address] Chloride [Moles/Vol] 99 mmol/L Normal 98-108 [facility] Comment on above: Performed By: #### L 501.9100, L100.0100, L700.6800, L500.2500, L505.5000 #### [facility] Laboratory [address] [place], [address] CO2 [Moles/Vol] 22.3 mmol/L Normal 21.0-32.0 [facility] Comment on above: Performed By: #### L 501.9100, L100.0100, L700.6800, L500.2500, L505.5000 #### [facility] Laboratory [address] [place], [address] Creatinine [Mass/Vol] 0.72 mg/dL Normal 0.70-1.20 [facility] Comment on above: Performed By: #### L 501.9100, L100.0100, L700.6800, L500.2500, L505.5000 #### [facility] Laboratory [address] [place], [address] ECRCL 121.18 ml/min Normal 50-250 [facility] Comment on above: Performed By: #### L 501.9100, L100.0100, L700.6800, L500.2500, L505.5000 #### [facility] Laboratory [address] [place], [address] GAP 13 Normal 5-15 [facility] Comment on above: Performed By: #### L 501.9100, L100.0100, L700.6800, L500.2500, L505.5000 #### [facility] Laboratory [address] [place], [address] GFR/1.73 sq M.predicted among non-blacks MDRD (S/P/Bld) [Vol rate/Area] 112 mL/min/{1.73_m2} Normal >60 [facility] Comment on above: Result Comment: mL/m in/1.73m2 CKD-EPI Creatinine Equation (2020) Performed By: #### L 501.9100, L100.0100, L700.6800, L500.2500, L505.5000 #### [facility] Laboratory [address] [place], [address] Glucose [Mass/Vol] 176 mg/dL High 70-99 [facility] Comment on above: Performed By: #### L 501.9100, L100.0100, L700.6800, L500.2500, L505.5000 #### [facility] Laboratory [address] [place], [address] Potassium [Moles/Vol] 4.7 mmol/L Normal 3.3-5.1 [facility] Comment on above: Performed By: #### L 501.9100, L100.0100, L700.6800, L500.2500, L505.5000 #### [facility] Laboratory [address] [place], [address] Sodium [Moles/Vol] 134 mmol/L Normal 133-145 [facility] Comment on above: Performed By: #### L 501.9100, L100.0100, L700.6800, L500.2500, L505.5000 #### [facility] Laboratory [address] [place], [address] Urea nitrogen [Mass/Vol] 18 mg/dL Normal 4-19 [facility] Comment on above: Performed By: #### L 501.9100, L100.0100, L700.6800, L500.2500, L505.5000 #### [facility] Laboratory [address] [place], [address] CBC-Complete Blood Cnt No Di ffon 06-24-2025 Erythrocyte distribution width (RBC) [Ratio] 13.5 % Normal 11.6-14.6 [facility] Comment on above: Performed By: #### L 501.9100, L100.0100, L700.6800, L500.2500, L505.5000 #### [facility] Laboratory [address] [place], [address] Hematocrit (Bld) [Volume fraction] 37.8 % Normal 37-47 [facility] Comment on above: Performed By: #### L 501.9100, L100.0100, L700.6800, L500.2500, L505.5000 #### [facility] Laboratory [address] [place], [address] Hemoglobin (Bld) [Mass/Vol] 13.0 g/dL Normal 12.0-15.0 [facility] Comment on above: Performed By: #### L 501.9100, L100.0100, L700.6800, L500.2500, L505.5000 #### [facility] Laboratory [address] [place], [address] MCH (RBC) [Entitic mass] 33.1 pg High 27.0-32.0 [facility] Comment on above: Performed By: #### L 501.9100, L100.0100, L700.6800, L500.2500, L505.5000 #### [facility] Laboratory [address] [place], [address] MCHC (RBC) [Mass/Vol] 34.4 g/dL Normal 32-36 [facility] Comment on above: Performed By: #### L 501.9100, L100.0100, L700.6800, L500.2500, L505.5000 #### [facility] Laboratory [address] [place], [address] MCV (RBC) [Entitic vol] 96.2 fL Normal 81-99 [facility] Comment on above: Performed By: #### L 501.9100, L100.0100, L700.6800, L500.2500, L505.5000 #### [facility] Laboratory [address] [place], [address] Platelet mean volume (Bld) [Entitic vol] 10.3 fL Normal 6.2-12.0 [facility] Comment on above: Performed By: #### L 501.9100, L100.0100, L700.6800, L500.2500, L505.5000 #### [facility] Laboratory [address] [place], [address] Platelets (Bld) [#/Vol] 283 10*3/uL Normal 150-450 [facility] Comment on above: Performed By: #### L 501.9100, L100.0100, L700.6800, L500.2500, L505.5000 #### [facility] Laboratory [address] [place], [address] RBC (Bld) [#/Vol] 3.93 10*6/uL Low 4.2-5.4 [facility] Comment on above: Performed By: #### L 501.9100, L100.0100, L700.6800, L500.2500, L505.5000 #### [facility] Laboratory [address] [place], [address] RDW SD 48.0 fl High 35.1-43.9 [facility] Comment on above: Performed By: #### L 501.9100, L100.0100, L700.6800, L500.2500, L505.5000 #### [facility] Laboratory [address] [place], [address] WBC (Bld) [#/Vol] 19.3 10*3/uL High 4.4-11.0 [facility] Comment on above: Performed By: #### L 501.9100, L100.0100, L700.6800, L500.2500, L505.5000 #### [facility] Laboratory [address] [place], [address] Gram Stainon 06-24-2025 GS List Antibiotics [place] t 48 Hours? none List Antibiotics to be Started? iv levaquin Acceptable Specimen? Yes (<25 Epithelial cells per/lpf) Gram Stain 4+ White Blood Cells 4+ Gram positive cocci 1+ Gram positive rods No Epithelial cells Normal [facility] Comment on above: Performed By: #### M 100.2000, M100.2400 ####[facility] [id number] [place], [address] 12 Lead EKGon 06-23-2025 12 Lead EKG [facility] Cardiovascular Services [address] [place] [address] 12 Lead EKG 06/23/25 1032 MR#: [id number] Acct: [id number] Name: CARINE BARBA Rep #: [id number] : 1990 35 From: Giancarlo Rhodes MD Attending Dr: Dr. Gifty Holden MD Status: AD M IN Ordering Dr: Jeff Noe DO Date: 06/23/25 Location: [facility] Sex: F C Admitted: 06/23/25 Test Reason : SOB Blood Pressure : */* mmHG Vent. Rate : 102 BPM Atrial Rate : 102 BPM P-R Int : 144 ms QRS Dur : 88 ms QT Int : 364 ms P-R-T Axes : 78 77 45 degrees QTcB Int : 474 ms Sinus tachycardia Nonspecific T wave abnormality Abnormal ECG Confirmed by Giancarlo Rhodes ([id number]), assistant film editor PAM REY ([id number]) on 06/25/2025 10:36:28 AM Referred By: Confirmed By: Giancarlo Rhodes 06/25/25 1036 Date Giancarlo Rhodes MD CC: Dr. Gifty Holden MD; Dr. Jeff Noe DO; No Primary Care Physician Signed Normal [facility] Absolute lymphocyte countOrd ered By: Jeff Noe on 06-23-2025 Lymphocytes Auto (Unsp spec) [#/Vol] 1.11 10*3/uL 0.83-4.51 [facility] Absolute neutrophil countOrd ered By: Jeff Noe on 06-23-2025 Neutrophils (Bld) [#/Vol] 26.1 10*3/uL High 2.0-7.7 [facility] Anion gap in Serum or Plasma Ordered By: Jeff Noe on 06-23-2025 Anion gap [Moles/Vol] 13 mmol/L 5-15 [facility] Automated lymphocyte count a s percentage of total leukocytesOrdered By: Jeff Noe on 06-23-2025 Lymphocytes/100 WBC Auto (Unsp spec) 3.8 % Low 19-41 [facility] BUN/creatinine ratioOrdered By: Jeff Noe on 06-23-2025 Urea nitrogen/Creatinine [Mass ratio] 12.6 mg/mg 10-20 [facility] Basic Metabolic Profile (BMP )on 06-23-2025 BUN/CRE 12.6 RATIO Normal - [facility] Comment on above: Performed By: #### L 501.9100, L100.0100, L700.6800, L500.2500, L505.5000 #### [facility] Laboratory [address] [place], [address] Calcium [Mass/Vol] 9.1 mg/dL Normal 7.6-11.0 [facility] Comment on above: Performed By: #### L 501.9100, L100.0100, L700.6800, L500.2500, L505.5000 #### [facility] Laboratory [address] [place], [address] Chloride [Moles/Vol] 97 mmol/L Low 98-108 [facility] Comment on above: Performed By: #### L 501.9100, L100.0100, L700.6800, L500.2500, L505.5000 #### [facility] Laboratory [address] [place], [address] CO2 [Moles/Vol] 24.4 mmol/L Normal 21.0-32.0 [facility] Comment on above: Performed By: #### L 501.9100, L100.0100, L700.6800, L500.2500, L505.5000 #### [facility] Laboratory [address] [place], [address] Creatinine [Mass/Vol] 0.68 mg/dL Low 0.70-1.20 [facility] Comment on above: Performed By: #### L 501.9100, L100.0100, L700.6800, L500.2500, L505.5000 #### [facility] Laboratory [address] [place], [address] GAP 13 Normal 5-15 [facility] Comment on above: Performed By: #### L 501.9100, L100.0100, L700.6800, L500.2500, L505.5000 #### [facility] Laboratory [address] [place], [address] GFR/1.73 sq M.predicted among non-blacks MDRD (S/P/Bld) [Vol rate/Area] 117 mL/min/{1.73_m2} Normal >60 [facility] Comment on above: Result Comment: mL/m in/1.73m2 CKD-EPI Creatinine Equation (2020) Performed By: #### L 501.9100, L100.0100, L700.6800, L500.2500, L505.5000 #### [facility] Laboratory [address] [place], [address] Glucose [Mass/Vol] 124 mg/dL High 70-99 [facility] Comment on above: Performed By: #### L 501.9100, L100.0100, L700.6800, L500.2500, L505.5000 #### [facility] Laboratory [address] [place], [address] Potassium [Moles/Vol] 4.2 mmol/L Normal 3.3-5.1 [facility] Comment on above: Performed By: #### L 501.9100, L100.0100, L700.6800, L500.2500, L505.5000 #### [facility] Laboratory [address] [place], [address] Sodium [Moles/Vol] 134 mmol/L Normal 133-145 [facility] Comment on above: Performed By: #### L 501.9100, L100.0100, L700.6800, L500.2500, L505.5000 #### [facility] Laboratory [address] [place], [address] Urea nitrogen [Mass/Vol] 9 mg/dL Normal 4-19 [facility] Comment on above: Performed By: #### L 501.9100, L100.0100, L700.6800, L500.2500, L505.5000 #### [facility] Laboratory [address] [place], [address] Basophil percentageOrdered B y: Jeff Noe on 06-23-2025 Basophils/100 WBC (Bld) 0.2 % 0-1 [facility] CBC W/Diff, Automatedon 08-3 PLT EST ADEQUATE Normal ADEQ [facility] Comment on above: Performed By: #### L 501.9100, L100.0100, L700.6800, L500.2500, L505.5000 #### [facility] Laboratory [address] [place], [address] Carbon dioxide, total [Moles /volume] in Central venous bloodOrdered By: Jeff Noe on 06-23-2025 CO2 [Moles/Vol] 24.4 mmol/L 21.0-32.0 [facility] Chest 1 View (Portable)on Chest 1 View (Portable) [facility] Imaging Services [address] [place] [address] Chest 1 View (Portable) MR#: [id number] Acct: [id number] Name: CARINE BARBA Rep #: [id number] : 1990 F 35 From: Deedee Park MD PCP: Care Physician,No Primary Status: PRE ER Study: Chest 1 View (Portable) Date of Exam: 06/23/25 Exam# [id number] Ordering Dr: Jeff Noe DO PROCEDURE: CHEST 1 VIEW (PORTABLE) 06/23/2025 REASON FOR EXAM: SHORTNESS OF BREATH TECHNIQUE: Frontal view of the chest. COMPARISON: Chest x-ray 06/13/2025. FINDINGS: Hardware: Status post surgical correction of left clavicle fracture with metallic hardware of a plate and screws. Heart: No cardiomegaly. Lungs: Interstitial pulmonary densities in the lower lungs, worsened compared to x-ray 06/13/2025 may represent pulmonary edema or pneumonia. No pleural effusion or pneumothorax. Bones: No acute bony abnormalities. RAD/Chest 1 View (Portable) IMPRESSION: Interstitial pulmonary densities in the lower lungs, worsened compared to x-ray 06/13/2025 may represent pulmonary edema or pneumonia. Reading Location: [facility] CC: Dr. Jeff Noe DO; No Primary Care Physician Clinical Safety Manager: Signed Normal [facility] Chloride assayOrdered By: Abram Noe on 06-23-2025 Chloride [Moles/Vol] 97 mmol/L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 #### L [id number] ####Bag Sorter: CALE LEON ([id number])[facility] ([facility])[address] [place] [address] WBC (Bld) [#/Vol] 11.5 10*3/uL High 3.6-10.7 [facility] Comment on above: Performed By: #### L [id number] ####Bag Sorter: CALE LEON ([phone])[facility] ([facility])[address] [place] [address] CKon 05-25-2025 CK [Catalytic activity/Vol] 29 U/L Low 30-185 [facility] Comment on above: Performed By: #### L [id number] #### Bag Sorter: CALE LEON ([id number]) [facility] HOBBSESTELA RITTMAN (SWRLAB) [address] [place] [address] COMPREHENSIVE METABOLIC PANE [place] 05-25-2025 Albumin [Mass/Vol] 4.1 g/dL Normal 3.5-5.0 [facility] Comment on above: Performed By: #### L [id number] #### Bag Sorter: CALE LEON ([id number]) [facility] ESTELA RITTMAN ([facility]) [address] ALP [Catalytic activity/Vol] 59 U/L Normal 40-150 [facility] Comment on above: Performed By: #### L [id number] #### Bag Sorter: CALE LEON ([id number]) [facility] HOBBSESTELA RITTMAN ([facility]) [address] ALT [Catalytic activity/Vol] 28 U/L Normal <30 [facility] Comment on above: Performed By: #### L [id number] #### Bag Sorter: CALE LEON ([id number]) [facility] PALMER RITTMAN (SWRL[facility]) [address] [place] [address] [place] Anion gap [Moles/Vol] 11 mmol/L Normal 3-13 [facility] Comment on above: Performed By: #### L [id number] #### Bag Sorter: CALE LEON ([phone]) [facility] PALMER RITTMAN ([facility]) [address] [place] [address] [place] AST [Catalytic activity/Vol] 20 U/L Normal <34 [facility] Comment on above: Performed By: #### L [id number] #### Bag Sorter: CALE LEON ([id number]) [facility] PALMER RITTMAN ([facility]) [address] [place] [address] [place] Bilirubin [Mass/Vol] 0.5 mg/dL Normal <1.2 [facility] Comment on above: Performed By: #### L [id number] #### Bag Sorter: CALE LEON ([id number]) [facility] PALMER RITTMAN ([facility]) [address] [place] [address] [place] Calcium [Mass/Vol] 9.3 mg/dL Normal 8.4-10.2 [facility] Comment on above: Performed By: #### L [id number] #### Bag Sorter: CALE LEON ([id number]) [facility] PALMER RITTMAN ([facility]) [address] [place] [address] [place] Chloride [Moles/Vol] 106 mmol/L Normal 98-107 [facility] Comment on above: Performed By: #### L [id number] #### Bag Sorter: CALE LEON ([id number]) [facility] PALMER RITTMAN ([facility]) [address] [place] [address] [place] CO2 [Moles/Vol] 23 mmol/L Normal 22-29 [facility] Comment on above: Performed By: #### L [id number] #### Bag Sorter: CALE LEON ([id number]) [facility] PALMER RITTMAN ([facility]) [address] [place] [address] [place] Creatinine [Mass/Vol] 0.77 mg/dL Normal 0.57-1.11 [facility] Comment on above: Performed By: #### L [id number] #### Bag Sorter: CALE LEON ([id number]) [facility] PALMER RITTMAN ([facility]) [address] [place] [address] GLOMERULAR FILTRATION RATE ML/MIN/1.73 SQ M.PREDICTED >90.0 Normal >60.0 [facility] Comment on above: Result Comment: Calc ulation based on the Chronic Kidney Disease Epidemiology Collaboration (CKD-EPI) equation refit without adjustment for race Performed By: #### L [id number] #### Bag Sorter: CALE LEON ([id number]) [facility] PALMER RITTMAN ([facility]) [address] [place] [address] Glucose [Mass/Vol] 102 mg/dL High 74-100 [facility] Comment on above: Performed By: #### L [id number] #### Bag Sorter: CALE LEON ([phone]) [facility] PALMER RITTMAN ([facility]) [address] [place] [address] [place] Potassium [Moles/Vol] 4.6 mmol/L Normal 3.5-5.1 [facility] Comment on above: Result Comment: [facility] potassium values may be up to 0.5 mmol/L lower than serum values. Performed By: #### L [id number] #### Bag Sorter: CALE LEON ([id number]) [facility] PALMER RITTMAN ([facility]) [address] [place] [address] [place] Protein [Mass/Vol] 6.8 g/dL Normal 6.4-8.3 [facility] Comment on above: Performed By: #### L [id number] #### Bag Sorter: CALE LEON ([id number]) [facility] PALMER RITTMAN ([facility]) [address] Sodium [Moles/Vol] 140 mmol/L Normal 136-145 [facility] Comment on above: Performed By: #### L [id number] #### Bag Sorter: CALE LEON ([id number]) [facility] PALMER RITTMAN ([facility]) [address] [place] [address] Urea nitrogen [Mass/Vol] 20 mg/dL Normal 8-21 [facility] Comment on above: Performed By: #### L [id number] #### Bag Sorter: CALE LEON ([id number]) [facility] PALMER RITTMAN ([facility]) [address] [place] [address] DRUGS OF ABUSEon 05-25-2025 AMPHETAMINE SCREEN Negative Normal [facility] Comment on above: Performed By: #### L [id number] ####Bag Sorter: CALE LEON ([id number])[facility])[address] [place] [address] BARBITURATES SCREEN Negative Normal [facility] Comment on above: Performed By: #### L [id number] ####Bag Sorter: CALE LEON ([id number])[facility] ([facility])[address] [place] [address] BENZODIAZEPINE SCREEN Negative Normal [facility] Comment on above: Performed By: #### L [id number] ####Bag Sorter: CALE LEON ([id number])[facility] ([facility])[address] [place] [address] COCAINE METAB. SCREEN Negative Normal [facility] Comment on above: Performed By: #### L [id number] ####Bag Sorter: CALE LEON ([id number])[facility])[address] [place] [address] FENTANYL SCREEN, UR QUAL Positive Normal [facility] Comment on above: Result Comment: [...] under separate order. Performed By: #### L [id number] ####Bag Sorter: CALE LEON ([id number])[facility])[address] [place] [address] METHADONE SCREEN Negative Normal [facility] Comment on above: Performed By: #### L [id number] ####Bag Sorter: CALE LEON ([id number])[address] OPIATES SCREEN Negative Normal [facility] Comment on above: Performed By: #### L [id number] ####Bag Sorter: CALE LEON ([id number])[facility])[address] [place] [address] OXYCODONE SCREEN Negative Normal [facility] Comment on above: Performed By: #### L [id number] ####Bag Sorter: CALE LEON ([id number])[address] PHENCYCLIDINE SCREEN Negative Normal [facility] Comment on above: Performed By: #### L [id number] ####Bag Sorter: CALE LEON ([id number])[facility])[address] [place] [address] ED Nursing Noteon 05-25-2025 ED Nursing Note Niharika RN at bedside to answer call light Normal [facility] ED Nursing Note Pt given dose of Suboxone 8/2 mg. Pt states she is still anxious and cannot sleep. Reassurance given that psychiatric needs will be addressed. Normal [facility] ED Nursing Note Kaushal GARCIA at bedside to medicate per orders Normal [facility] ED Nursing Note Addiction De Ionizer Operator at bedside Normal [facility] ED Nursing Note Estrella at bedside to assess pt Normal [facility] ED Nursing Note Sack lunch provided Normal [facility] ED Nursing Note Pt out to restroom t o provide urine sample Normal [facility] ED Nursing Note Patient changed into two gowns and hospital socks. Patients belongings placed into one belongings bag. Patient is calm and cooperative, breathing is even and unlabored. Normal [facility] ED Nursing Note This [facility] RN assessed pt in the ED. Pt initially in the hospital for Subutex. Pt states she was recently at [facility] for detox from fentanyl. Pt states she was discharged from [place] on 05/21/25 and sent to [facility] in [place] for residential placement. Pt states she was given Subutex while at [facility]. Pt signed release for this RN to contact [facility] and [facility]. However the medical records department at [facility] in not available until Tuesday. [facility] report does not show Subutex prescription. Also [facility] has no record of this pt being there. When asked, pt continues to state that she is at [facility]. Pt is emotional during interview. Pt states [...] Pt states that before detox admission at [facility] she was using 2 grams of fentanyl daily, pt using intranasal. Last use was 05/14/25. Pt states she has also recently used cocaine, meth, marijuana. Pt denies recent benzodiazepine or alcohol use. Pt states that she has not slept in several days. Pt states that while she was in [facility], she was given Trazodone 150 mg nightly [...] consent and agreed to follow-up phone calls. [facility] ED Provider Noteon ED Provider Note Emergency Department Encounter [facility] EMERGENCY DEPT Patient: Carine Barba : 1990 [...] refill. Patient states that she was at [facility] for 5 days for detox from fentanyl [...] anxious that she is close to a "psychotic break." Focused exam: Vital Signs: Reviewed Constitutional: Anxious [...] me, 05/26/25, 02:33): Rate: 77, Rhythm: Sinus, [place]: Normal, Intervals: [place] 165, QRS 92, QTc 433, Interpretation: No [...] for clarification.) Dalila Sales MD Acute Care [facility] Dalila Sales MD 05/26/25 0206 Dalila Sales MD 05/26/25 0239 [facility] ED Provider Note EMERGENCY DEPARTMENT ENCOUNTER Pt Name: Carine Barba Birthdate 1990 Date of evaluation: 05/25/2025 ED Provider: LOUISE Nash CNP EDcare was supervised by Dr. Sales who independently examined and evaluated the patient. Please see their attestation note for further details. CHIEF COMPLAINT Medication refill/anxiety Chief Complaint Patient presents with Med Refill Pt here requesting subutex, gabapentin, trazodone. Pt was [facility] for [facility], then sent to [facility] and has not been prescribed [...] 5 days ago she was at the [facility] [facility] and went to their detox program and was subsequently discharged to [facility]. Patient reported that she was under the [...] Result V (more content not included)... Normal [facility] ETHANOLon 05-25-2025 ETHANOL IN SER/PLAS- RIVERA <10 Normal <10 [facility] Comment on above: Result Comment: MAI Ho COMMENTS: CONFIGURATION MANAGEMENT SPECIALIST depression is seen >100 mg/dL. NOTE: This result is for medical treatment only. Analysis performed using non-forensic procedures. Performed By: #### L [id number] #### Bag Sorter: CALE LEON ([id number]) [facility] ESTELA CARBAJAL ([facility]) [address] [place] [address] HCG QUALITATIVE URINEon Beta HCG ( test) Ql (U) Negative Normal Negative [facility] Comment on above: Result Comment: Plea se note: Very dilute urine specimens, as indicated by a low specific gravity, may not contain auto claim representative levels of hCG. If is still suspected, a first morning urine specimen should be collected 48 hours later and tested. ORDER COMMENTS: is the most common reason for HCG in urine, although choriocarcinoma, hydatidiform mole, and certain nontrophoblastic malignancies also result in detectable urinary HCG levels. Sensitivity = 20mIU/mL. Performed By: #### L [id number] #### Bag Sorter: CALE LEON ([id number]) [facility] ([facility]) [address] [place] [address] SARS-COV-2 ANTIGENon 025 SARS-COV-2 ANTIGEN SARS-COV-2 ANTIGEN -BINAX Reference Negative Negative A negative result does not rule out the possibility of SARS-CoV-2 infection. NAAT-based methods should be considered for symptomatic patients presenting greater than seven days after onset of symptoms. Method: Lateral flow immunoassay. Fact sheets for healthcare providers and patients can be found at the following sites: https://www.fda.gov/[place] amy/672356/download https://www.fda.gov/tx amy/351979/download Normal [facility] Comment on above: Performed By: #### L [id number] #### Bag Sorter: CALE LEON ([id number]) [facility] ([facility]) [address] [place] [address] Urine Cultureon 05-23-2025 URC Below infection leve l. Mixed Gram Positive Organisms [place] Count 1000-10,000 [facility] Mixed contaminants. Submit a new specimen if indicated. Normal [facility] Comment on above: Performed By: #### L 501.9100, L100.0100, L700.6800, L500.2500, L505.5000 #### [facility] Laboratory [address] [place], [address] Anion gap in Serum or Plasma Ordered By: Ivonne Sales on 05-22-2025 Anion gap [Moles/Vol] 10 mmol/L 5-15 [facility] BUN/creatinine ratioOrdered By: Ivonne Sales on 05-22-2025 Urea nitrogen/Creatinine [Mass ratio] 23.3 mg/mg High 10- [facility] Basic Metabolic Profile (BMP )on 05-22-2025 BUN/CRE 23.3 RATIO High [facility]20 [facility] Comment on above: Performed By: #### L 501.9100, L100.0100, L700.6800, L500.2500, L505.5000 #### [facility] [address] [place], [address] Calcium [Mass/Vol] 8.6 mg/dL Normal 7.6-11.0 [facility] Comment on above: Performed By: #### L 501.9100, L100.0100, L700.6800, L500.2500, L505.5000 #### [facility] [address] [place], [address] Chloride [Moles/Vol] 104 mmol/L Normal 98-108 [facility] Comment on above: Performed By: #### L 501.9100, L100.0100, L700.6800, L500.2500, L505.5000 #### [facility] [address] [place], [address] CO2 [Moles/Vol] 23.9 mmol/L Normal 21.0-32.0 [facility] Comment on above: Performed By: #### L 501.9100, L100.0100, L700.6800, L500.2500, L505.5000 #### [facility] [address] [place], [address] Creatinine [Mass/Vol] 0.70 mg/dL Normal 0.70-1.20 [facility] Comment on above: Performed By: #### L 501.9100, L100.0100, L700.6800, L500.2500, L505.5000 #### [facility] [address] [place], [address] ECRCL 110.12 ml/min Normal 50-250 [facility] Comment on above: Performed By: #### L 501.9100, L100.0100, L700.6800, L500.2500, L505.5000 #### [facility] [address] [place], [address] GAP 10 Normal 5-15 [facility] Comment on above: Performed By: #### L 501.9100, L100.0100, L700.6800, L500.2500, L505.5000 #### [facility] [address] [place], [address] GFR/1.73 sq M.predicted among non-blacks MDRD (S/P/Bld) [Vol rate/Area] 116 mL/min/{1.73_m2} Normal >60 [facility] Comment on above: Result Comment: mL/m in/1.73m2 CKD-EPI Creatinine Equation (2020) Performed By: #### L 501.9100, L100.0100, L700.6800, L500.2500, L505.5000 #### [facility] [address] [place], [address] Glucose [Mass/Vol] 108 mg/dL High 70-99 [facility] Comment on above: Performed By: #### L 501.9100, L100.0100, L700.6800, L500.2500, L505.5000 #### [facility] [address] [place], [address] Potassium [Moles/Vol] 4.8 mmol/L Normal 3.3-5.1 [facility] Comment on above: Performed By: #### L 501.9100, L100.0100, L700.6800, L500.2500, L505.5000 #### [facility] [address] [place], [address] Sodium [Moles/Vol] 137 mmol/L Normal 133-145 [facility] Comment on above: Performed By: #### L 501.9100, L100.0100, L700.6800, L500.2500, L505.5000 #### [facility] [address] [place], [address] Urea nitrogen [Mass/Vol] 16 mg/dL Normal 4-19 [facility] Comment on above: Performed By: #### L 501.9100, L100.0100, L700.6800, L500.2500, L505.5000 #### [facility] [address] [place], [address] CBC-Complete Blood Cnt No Di ffon 05-22-2025 Erythrocyte distribution width (RBC) [Ratio] 13.2 % Normal 11.6-14.6 [facility] Comment on above: Performed By: #### L 501.9100, L100.0100, L700.6800, L500.2500, L505.5000 #### [facility] [address] [place], [address] Hematocrit (Bld) [Volume fraction] 41.5 % Normal 37-47 [facility] Comment on above: Performed By: #### L 501.9100, L100.0100, L700.6800, L500.2500, L505.5000 #### [facility] [address] [place], [address] Hemoglobin (Bld) [Mass/Vol] 13.7 g/dL Normal 12.0-15.0 [facility] Comment on above: Performed By: #### L 501.9100, L100.0100, L700.6800, L500.2500, L505.5000 #### [facility] [address] [place], [address] MCH (RBC) [Entitic mass] 32.5 pg High 27.0-32.0 [facility] Comment on above: Performed By: #### L 501.9100, L100.0100, L700.6800, L500.2500, L505.5000 #### [facility] [address] [place], [address] MCHC (RBC) [Mass/Vol] 33.0 g/dL Normal 32-36 [facility] Comment on above: Performed By: #### L 501.9100, L100.0100, L700.6800, L500.2500, L505.5000 #### [facility] [address] [place], [address] MCV (RBC) [Entitic vol] 98.6 fL Normal 81-99 [facility] Comment on above: Performed By: #### L 501.9100, L100.0100, L700.6800, L500.2500, L505.5000 #### [facility] [address] [place], [address] Platelet mean volume (Bld) [Entitic vol] 10.0 fL Normal 6.2-12.0 [facility] Comment on above: Performed By: #### L 501.9100, L100.0100, L700.6800, L500.2500, L505.5000 #### [facility] [address] [place], [address] Platelets (Bld) [#/Vol] 242 10*3/uL Normal 150-450 [facility] Comment on above: Performed By: #### L 501.9100, L100.0100, L700.6800, L500.2500, L505.5000 #### [facility] [address] [place], [address] RBC (Bld) [#/Vol] 4.21 10*6/uL Normal 4.2-5.4 [facility] Comment on above: Performed By: #### L 501.9100, L100.0100, L700.6800, L500.2500, L505.5000 #### [facility] [address] [place], [address] RDW SD 48.3 fl High 35.1-43.9 [facility] Comment on above: Performed By: #### L 501.9100, L100.0100, L700.6800, L500.2500, L505.5000 #### [facility] [address] [place], [address] WBC (Bld) [#/Vol] 8.3 10*3/uL Normal 4.4-11.0 [facility] Comment on above: Performed By: #### L 501.9100, L100.0100, L700.6800, L500.2500, L505.5000 #### [facility] [address] [place], [address] Carbon dioxide, total [Moles /volume] in Central venous bloodOrdered By: Ivonne Sales on 05-22-2025 CO2 [Moles/Vol] 23.9 mmol/L 21.0-32.0 [facility] Chloride assayOrdered By: Luisana Sales on 05-22-2025 Chloride [Moles/Vol] 104 mmol/L 98-108 [facility] Erythrocyte distribution wid th ratioOrdered By: Ivonne Sales on 05-22-2025 Erythrocyte distribution width (RBC) [Ratio] 13.2 % 11.6-14.6 [facility] Erythrocyte distribution wid th standard deviationOrdered By: Ivonne Sales on 05-22-2025 Erythrocyte distribution width (RBC) [Ratio] 48.3 fl High 35.1-43.9 [facility] Glomerular filtration rate ( GFR) estimation/1.73 sq m using serum, plasma, or whole bOrdered By: Ivonne Sales on 05-22-2025 GFR/1.73 sq M.predicted among non-blacks MDRD (S/P/Bld) [Vol rate/Area] 116 mL/min/{1.73_m2} >60 [facility] Comment on above: mL/min/1.73m2 CKD-EP I Creatinine Equation (2020) Hematocrit Auto (Bld) [Volum e fraction]Ordered By: Ivonne Sales on 05-22-2025 Hematocrit (Bld) [Volume fraction] 41.5 % 37-47 [facility] Hemoglobin measurementOrdere d By: Ivonne Sales on 05-22-2025 Hemoglobin (Bld) [Mass/Vol] 13.7 g/dL 12.0-15.0 [facility] MCV (mean corpuscular volume ) determinationOrdered By: Ivonne Sales on 05-22-2025 MCV (RBC) [Entitic vol] 98.6 fL 81-99 [facility] Mean corpuscular hemoglobin (MCH) determinationOrdered By: Ivonne Sales on 05-22-2025 MCH (RBC) [Entitic mass] 32.5 pg High 27.0-32.0 [facility] Mean corpuscular hemoglobin concentration (MCHC) determinationOrdered By: Ivonen Sales on 05-22-2025 MCHC (RBC) [Mass/Vol] 33.0 g/dL 32-36 [facility] Mean platelet volume determi nationOrdered By: Ivonne Sales on 05-22-2025 Platelet mean volume (Bld) [Entitic vol] 10.0 fL 6.2-12.0 [facility] Platelet countOrdered By: Luisana Sales on 05-22-2025 Platelets (Bld) [#/Vol] 242 10*3/uL 150-450 [facility] Potassium measurement (mass/ volume)Ordered By: Ivonne Sales on 05-22-2025 Potassium (Unsp spec) [Mass/Vol] 4.8 mmol/L 3.3-5.1 [facility] RBC Auto (Bld) [#/Vol]Ordere d By: Ivonne Sales on 05-22-2025 RBC (Bld) [#/Vol] 4.21 10*6/uL 4.2-5.4 [facility] Serum creatinine measurement (mass/volume)Ordered By: Ivonne Sales on 05-22-2025 Creatinine [Mass/Vol] 0.70 mg/dL 0.70-1.20 [facility] Serum glucose measurement (m ass/volume)Ordered By: Ivonne Sales on 07-30-2025 Glucose [Mass/Vol] 108 mg/dL High 70-99 [facility] Serum or plasma calcium emily urement (mass/volume)Ordered By: Ivonne Sales on 05-22-2025 Calcium [Mass/Vol] 8.6 mg/dL 7.6-11.0 [facility] Serum or plasma urea nitroge n measurement (mass/volume)Ordered By: Ivonne Sales on 05-22-2025 Urea nitrogen [Mass/Vol] 16 mg/dL 4-19 [facility] Sodium levelOrdered By: Leisa Sales on 05-22-2025 Sodium [Moles/Vol] 137 mmol/L 133-145 [facility] White blood cell (WBC) count Ordered By: Ivonne Sales on 05-22-2025 WBC (Bld) [#/Vol] 8.3 10*3/uL 4.4-11.0 [facility] Abdomen/Pelvis W IV Cont ONL Yon 05-21-2025 Abdomen/Pelvis W IV Cont ONLY [facility] [address], [place] [id number] Abdomen/Pelvis W IV Cont ONLY MR#: [id number] Acct: [id number] Name: CARINE BARBA Rep #: [id number] : 1990 F 35 From: Saurabh willard MD PCP: Care Physician,No Primary Status: ADM IN Study: Abdomen/Pelvis W IV Cont ONLY Date of Exam: Exam# [id number] Ordering Dr: Ivonne Sales DO PROCEDURE: ABDOMEN/PELVIS [...] is seen in the colon. Reading Location: [id number] CC: Dr. Ivonne Sales, DO; No Primary Care Physician Clinical Safety Manager: Signed Normal [facility] Bilirubin Test strip Ql (U)O rdered By: Ivonne Sales on 05-21-2025 Bilirubin Ql (U) Negative Negative [facility] Ketones Test strip Ql (U)Ord ered By: Ivonne Sales on 05-21-2025 Ketones Ql (U) Negative Negative [facility] Microscopic analysis of urin e for red blood cells (RBC)Ordered By: Ivonne Sales on 05-21-2025 Microscopic analysis of urine for red blood cells (RBC) 0-5 SEEN /hpf 0-5 [facility] Mucus LM Ql (Urine sed)Order ed By: Ivonne Sales on 05-21-2025 Mucus Ql (Urine sed) 0 SEEN /hpf [facility] Nitrite Test strip Ql (U)Ord ered By: Ivonne Sales on 05-21-2025 Nitrite Ql (U) Negative Negative [facility] Protein Test strip Ql (U)Ord ered By: Ivonne Sales on 05-21-2025 Protein Ql (U) 15 mg/dl High Negative [facility] Squamous epithelial cells de tection in urine sediment by light microscopyOrdered By: Ivonne Sales on 05-21-2025 Epithelial cells.squamous LM Ql (Urine sed) 0-5 SEEN /hpf 5-10 [facility] Urinalysis, Completeon 05-21 EPI,SQUAMOUS 0-5 SEEN Normal 5-10 [facility] Comment on above: Order Comment: CLEAN CATCH Performed By: #### L 501.9100, L100.0100, L700.6800, L500.2500, L505.5000 #### [facility] [address] [place], [address] RBC 0-5 SEEN Normal 0-5 [facility] Comment on above: Order Comment: CLEAN CATCH Performed By: #### L 501.9100, L100.0100, L700.6800, L500.2500, L505.5000 #### [facility] [address] [place], [address] BACTERIA 0 SEEN Normal None Seen [facility] Comment on above: Order Comment: CLEAN CATCH Performed By: #### L 501.9100, L100.0100, L700.6800, L500.2500, L505.5000 #### [facility] [address] [place], [address] Mucus Ql (Urine sed) 0 SEEN Normal [facility] Comment on above: Order Comment: CLEAN CATCH Performed By: #### L 501.9100, L100.0100, L700.6800, L500.2500, L505.5000 #### [facility] [address] [place], [address] WBC 0 SEEN Normal 0-5 [facility] Comment on above: Order Comment: CLEAN CATCH Performed By: #### L 501.9100, L100.0100, L700.6800, L500.2500, L505.5000 #### [facility] [address] [place], [address] Urine clarityOrdered By: Lala Sales on 05-21-2025 Clarity (U) Sl. Cloudy Clear [facility] Urine color determinationOrd ered By: Ivonne Sales on 05-21-2025 Color (U) Yellow Yellow [facility] Urine cultureOrdered By: Lala Sales on 05-21-2025 Bacteria identified Cx Nom (U) Positive Abnormal [facility] Urine glucose detectionOrder ed By: Ivonne Sales on 05-21-2025 Glucose Ql (U) Normal mg/dl Normal [facility] Urine leukocyte esterase det ection by dipstickOrdered By: Ivonne Sales on 05-21-2025 Leukocyte esterase Test strip Ql (U) Negative Negative [facility] Urine pHOrdered By: Ivonne Sales on 05-21-2025 pH (U) 7.0 [pH] 5.0 - 8.0 [facility] Urine sediment bacteria coun t by microscopy (number/high power field)Ordered By: Ivonne Sales on 05-21-2025 Bacteria LM.HPF (Urine sed) [#/Area] 0 /[HPF] None Seen [facility] Urine specific gravity measu rementOrdered By: Ivonne Sales on 05-21-2025 Specific gravity (U) [Rel density] 1.015 1.002-1.030 [facility] Urine urobilinogen measureme ntOrdered By: Ivonne Sales on 05-21-2025 Urobilinogen Ql (U) Normal mg/dl Normal [facility] White blood cell countOrdere d By: Ivonne Sales on 05-21-2025 White blood cell count 0 SEEN /hpf 0-5 [facility] Absolute lymphocyte countOrd ered By: Elyse Petty on 05-18-2025 Lymphocytes Auto (Unsp spec) [#/Vol] 2.58 10*3/uL 0.83-4.51 [facility] Absolute neutrophil countOrd ered By: Elyse Petty on 05-18-2025 Neutrophils (Bld) [#/Vol] 6.7 10*3/uL 2.0-7.7 [facility] Alcohol, Blood (Medical)-Ser umon 05-18-2025 SERUM ETOH < 10.1 Normal <=10.0 [facility] Comment on above: Result Comment: This test is for medical purposes only. The legal definition of intoxication varies according to local law. Performed By: #### L 501.9100, L100.0100, L700.6800, L500.2500, L505.5000 #### [facility] [place], [address] Amphetamine detection with 1 000 ng/mL as cutoffOrdered By: Elyse Petty on 05-18-2025 Amphetamines Screen method >1000 ng/mL Ql (U) Negative < 200 ng/mL [facility] Anion gap in Serum or Plasma Ordered By: Elyse Petty on 05-18-2025 Anion gap [Moles/Vol] 11 mmol/L 5- [facility] Automated lymphocyte count a s percentage of total leukocytesOrdered By: Elyse Petty on 05-18-2025 Lymphocytes/100 WBC Auto (Unsp spec) 25.0 % - [facility] BUN/creatinine ratioOrdered By: Elyse Petty on 05-18-2025 Urea nitrogen/Creatinine [Mass ratio] 17.7 mg/mg - [facility] Basic Metabolic Profile (BMP )on 05-18-2025 BUN/CRE 17.7 RATIO Normal -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 Normal [facility] Respiratory pathogens DNA an d RNA panel DAJA+non-probe (Nph)on 04-15-2025 Adenovirus Not detected Not Detected [facility] B. pertussis DNA DAJA+probe Ql (Unsp spec) Not detected Not Detected [facility] Bordetella parapertussis Not detected Not Detected [facility] Chlamydia pneumoniae Not detected Not Detected [facility] Coronavirus 229E Not detected Not Detected [facility] Coronavirus HKU1 Not detected Not Detected [facility] Coronavirus NL63 Not detected Not Detected [facility] Coronavirus OC43 Not detected Not Detected [facility] FLUAV RNA DAJA+non-probe Ql (Nph) Not detected Not Detected [facility] FLUBV RNA DAJA+non-probe Ql (Nph) Not detected Not Detected [facility] Human Metapneumovirus Not detected Not Detected [facility] Human Rhinovirus/Enterovirus Not detected Not Detected [facility] Interpretation and review of laboratory results Normal [facility] Mycoplasma pneumoniae Not detected Not Detected [facility] Parainfluenza 1 Not detected Not Detected [facility] Parainfluenza 2 Not detected Not Detected [facility] Parainfluenza 3 Not detected Not Detected [facility] Parainfluenza 4 Not detected Not Detected [facility] Respiratory Syncytial Virus Not detected Not Detected [facility] SARS-CoV-2 (COVID-19) RNA DAJA+non-probe Ql (Nph) Not detected Not Detected [facility] Methodology: Multipl ex PCR [facility] Vital signson 04-15-2025 Heart rate 100 /min bpm [facility] Vital signsOrdered By: Antonia Burnett on 04-15-2025 Oxygen saturation in Venous blood 76.8 % [facility] 30on 04-14-2025 30 Called by [facility] . Discussed with ED attending. 35 [...] , continue bipap. Admit to t3 Normal [facility] BASIC METABOLIC PANELon 03-25 Anion gap [Moles/Vol] 12 mmol/L Normal 3-13 [facility] Comment on above: Performed By: #### L [id number] #### Bag Sorter: CALE LEON ([phone]) [facility]) [address] [place] [address] Calcium [Mass/Vol] 9.0 mg/dL Normal 8.4-10.2 [facility] Comment on above: Performed By: #### L [id number] #### Bag Sorter: CALE LEON ([phone]) [facility]) [address] [place] [address] Chloride [Moles/Vol] 104 mmol/L Normal 98-107 [facility] Comment on above: Performed By: #### L [id number] #### Bag Sorter: CALE LEON ([phone]) [facility]) [address] [place] [address] [place] CO2 [Moles/Vol] 24 mmol/L Normal 22-29 [facility] Comment on above: Performed By: #### L [id number] #### Bag Sorter: CALE [id number]) [facility]) [address] [place] [address] Creatinine [Mass/Vol] 0.67 mg/dL Normal 0.57-1.11 [facility] Comment on above: Performed By: #### L [id number] #### Bag Sorter: CALE LEON ([phone]) [facility]) [address] [place] [address] GLOMERULAR FILTRATION RATE ML/MIN/1.73 SQ M.PREDICTED >90.0 Normal >60.0 [facility] Comment on above: Result Comment: Calc ulation based on the Chronic Kidney Disease Epidemiology Collaboration (CKD-EPI) equation refit without adjustment for race Performed By: #### L [id number] #### Bag Sorter: CALE LEON ([id number]) [facility] ([facility]) [address] [place] [address] Glucose [Mass/Vol] 119 mg/dL High 74-100 [facility] Comment on above: Performed By: #### L [id number] #### Bag Sorter: CALE LEON ([phone]) [facility]) [address] [place] [address] Potassium [Moles/Vol] 3.9 mmol/L Normal 3.5-5.1 [facility] Comment on above: Result Comment: [facility] potassium values may be up to 0.5 mmol/L lower than serum values. Performed By: #### L [id number] #### Bag Sorter: CALE LEON ([phone]) [facility] ([facility]) [address] [place] [address] Sodium [Moles/Vol] 140 mmol/L Normal 136-145 [facility] Comment on above: Performed By: #### L [id number] #### Bag Sorter: CALE LEON ([id number]) [facility]) [address] [place] [address] Urea nitrogen [Mass/Vol] 9 mg/dL Normal 8-21 [facility] Comment on above: Performed By: #### L [id number] #### Bag Sorter: CALE LEON ([id number]) [facility]) [address] [place] [address] Basic metabolic 1998 panelon 04-14-2025 Anion gap [Moles/Vol] 12 mmol/L 3 - 13 mmol/L [facility] Calcium [Mass/Vol] 9 mg/dL 8.4 - 10. 2 mg/dL [facility] Chloride [Moles/Vol] 104 mmol/L 98 - 10 7 mmol/L [facility] CO2 [Moles/Vol] 24 mmol/L 22 - 29 mmol/L [facility] Creatinine [Mass/Vol] 0.67 mg/dL 0.57 - 1.11 mg/dL [facility] GFR/1.73 sq M.predicted (S/P/Bld) [Vol rate/Area] - PINF [facility] Comment on above: Calculation based on the Chronic Kidney Disease Epidemiology Collaboration (CKD-EPI) equation refit without adjustment for race Glucose [Mass/Vol] 119 mg/dL High 74 - 100 mg/dL [facility] Interpretation and review of laboratory results Abnormal [facility] Potassium [Moles/Vol] 3.9 mmol/L 3.5 - 5.1 mmol/L [facility] Comment on above: Plasma potassium phillip ues may be up to 0.5 mmol/L lower than serum values. Sodium [Moles/Vol] 140 mmol/L 136 - 145 mmol/L [facility] Urea nitrogen [Mass/Vol] 9 mg/dL 8 - 21 mg/dL [facility] CBC W Auto Differential pane l (Bld)on 04-14-2025 Basophils (Bld) [#/Vol] 0 10*3/uL 0.0 - 0.2 10*3/uL [facility] Basophils/100 WBC (Bld) 0.2 % 0.0 - 2.0 % [facility] Eosinophils (Bld) [#/Vol] 0.3 10*3/uL 0.0 - 0.5 10*3/uL [facility] Eosinophils/100 WBC (Bld) 2.6 % 0.0 - 6.0 % [facility] Erythrocyte distribution width (RBC) [Ratio] 12.7 % 11.5 - 15.0 % [facility] Hematocrit (Bld) [Volume fraction] 41 % 35.0 - 47.0 % [facility] Hemoglobin (Bld) [Mass/Vol] 14.2 g/dL 11.7 - 16.0 g/dL [facility] Immature granulocytes (Bld) [#/Vol] 0.1 10*3/uL High NINF - 0.1 10*3/uL [facility] Immature granulocytes/100 WBC (Bld) 0.4 % 0.0 - 2.0 % [facility] Interpretation and review of laboratory results Abnormal [facility] Lymphocytes (Bld) [#/Vol] 1.1 10*3/uL 1.0 - 4.3 10*3/uL [facility] Lymphocytes/100 WBC (Bld) 8.5 % Low 15.0 - 45.0 % [facility] MCH (RBC) [Entitic mass] 33.2 pg 26.0 - 34.0 pg [facility] MCHC (RBC) [Mass/Vol] 34.6 % 30.5 - 36.0 % [facility] MCV (RBC) [Entitic vol] 95.8 fL 77.0 - 99.0 fL [facility] Monocytes (Bld) [#/Vol] 0.6 10*3/uL 0.0 - 0.9 10*3/uL [facility] Monocytes/100 WBC (Bld) 4.3 % Low 5.0 - 13.0 % [facility] Neutrophils (Bld) [#/Vol] 10.9 10*3/uL High 1.8 - 7.5 10*3/uL [facility] Neutrophils/100 WBC (Bld) 84 % High 38.0 - 82.0 % [facility] Nucleated RBC/100 WBC (Bld) [Ratio] 0 % [facility] Platelet mean volume (Bld) [Entitic vol] 9.9 fL 9.0 - 12.7 fL [facility] Comment on above: MPV is a calculated measurement using platelet volume ratio Platelets (Bld) [#/Vol] 230 10*3/uL 140 - 440 10*3/uL [facility] RBC (Bld) [#/Vol] 4.28 10*6/uL 3.80 - 5.2 0 10*6/uL [facility] WBC (Bld) [#/Vol] 13 10*3/uL High 3.6 - 10.7 10*3/uL [facility] CBC WITH AUTO DIFFERENTIALon 04-14-2025 Basophils (Bld) [#/Vol] 0.0 10*3/uL Normal 0.0-0.2 [facility] Comment on above: Performed By: #### L [id number] #### Bag Sorter: CALE LEON ([id number]) [facility] ([facility]) [address] [place], [place] [id number] [place] Basophils/100 WBC (Bld) 0.2 % Normal 0.0-2.0 [facility] Comment on above: Performed By: #### L [id number] #### Bag Sorter: CALE LEON ([id number]) [facility] ([facility]) [address] [place] [address] Eosinophils (Bld) [#/Vol] 0.3 10*3/uL Normal 0.0-0.5 [facility] Comment on above: Performed By: #### L [id number] #### Bag Sorter: CALE LEON ([id number]) [facility] ([facility]) [address] [place] [address] Eosinophils/100 WBC (Bld) 2.6 % Normal 0.0-6.0 [facility] Comment on above: Performed By: #### L [id number] #### Bag Sorter: CALE LEON ([id number]) [facility] ([facility]) [address] [place] [address] Erythrocyte distribution width (RBC) [Ratio] 12.7 % Normal 11.5-15.0 [facility] Comment on above: Performed By: #### L [id number] #### Bag Sorter: CALE LEON ([id number]) [facility] ([facility]) [address] [place] [address] Hematocrit (Bld) [Volume fraction] 41.0 % Normal 35.0-47.0 [facility] Comment on above: Performed By: #### L [id number] #### Bag Sorter: CALE LEON ([id number]) [facility] ([facility]) [address] [place] [address] Hemoglobin (Bld) [Mass/Vol] 14.2 g/dL Normal 11.7-16.0 [facility] Comment on above: Performed By: #### L [id number] #### Bag Sorter: CALE LEON ([id number]) [facility] ([facility]) [address] [place] [address] [place] IMMATURE GRANS % 0.4 % Normal 0.0-2.0 [facility] Comment on above: Performed By: #### L [id number] #### Bag Sorter: CALE LEON ([id number]) [facility] ([facility]) [address] [place] [address] IMMATURE GRANS ABSOLUTE 0.1 10*3/uL High <0.1 [facility] Comment on above: Performed By: #### L [id number] #### Bag Sorter: CALE LEON ([id number]) [facility] ([facility]) [address] [place] [address] Lymphocytes (Bld) [#/Vol] 1.1 10*3/uL Normal 1.0-4.3 [facility] Comment on above: Performed By: #### L [id number] #### Bag Sorter: CALE LEON ([id number]) [facility] ([facility]) [address] [place] [address] Lymphocytes/100 WBC (Bld) 8.5 % Low 15.0-45.0 [facility] Comment on above: Performed By: #### L [id number] #### Bag Sorter: CALE LEON ([id number]) [facility] ([facility]) [address] [place] [address] MCH (RBC) [Entitic mass] 33.2 pg Normal 26.0-34.0 [facility] Comment on above: Performed By: #### L [id number] #### Bag Sorter: CALE LEON ([phone]) [facility] ([facility]) [address] [place] [address] MCHC 34.6 % Normal 30.5-36.0 [facility] Comment on above: Performed By: #### L [id number] #### Bag Sorter: CALE LEON ([phone]) [facility] ([facility]) [address] [place] [address] MCV (RBC) [Entitic vol] 95.8 fL Normal 77.0-99.0 [facility] Comment on above: Performed By: #### L [id number] #### Bag Sorter: CALE LEON ([id number]) [facility] ([facility]) [address] [place] [address] [place] Monocytes (Bld) [#/Vol] 0.6 10*3/uL Normal 0.0-0.9 [facility] Comment on above: Performed By: #### L [id number] #### Bag Sorter: CALE LEON ([id number]) [facility] ([facility]) [address] [place] [address] [place] Monocytes/100 WBC (Bld) 4.3 % Low 5.0-13.0 [facility] Comment on above: Performed By: #### L [id number] #### Bag Sorter: CALE LEON ([id number]) [facility] ([facility]) [address] [place] [address] [place] NEUTROPHILS ABSOLUTE 10.9 10*3/uL High 1.8-7.5 [facility] Comment on above: Performed By: #### L [id number] #### Bag Sorter: CALE LEON ([phone]) [facility] ([facility]) [address] [place] [address] [place] Neutrophils/100 WBC (Bld) 84.0 % High 38.0-82.0 [facility] Comment on above: Performed By: #### L [id number] #### Bag Sorter: CALE LEON ([id number]) [facility] ([facility]) [address] [place] [address] [place] NRBC 0.0 /100 WBCs Normal 0.0-2.0 [facility] Comment on above: Performed By: #### L [id number] #### Bag Sorter: CALE LEON ([phone]) [facility] ([facility]) [address] [place] [address] Platelet mean volume (Bld) [Entitic vol] 9.9 fL Normal 9.0-12.7 [facility] Comment on above: Result Comment: MPV is a calculated measurement using platelet volume ratio Performed By: #### L [id number] #### Bag Sorter: CALE LEON ([id number]) [facility] ([facility]) [address] [place] [address] Platelets (Bld) [#/Vol] 230 10*3/uL Normal 140-440 [facility] Comment on above: Performed By: #### L [id number] #### Bag Sorter: CALE LEON ([id number]) [facility] ([facility]) [address] [place] [address] RBC (Bld) [#/Vol] 4.28 10*6/uL Normal 3.80-5.20 [facility] Comment on above: Performed By: #### L [id number] #### Bag Sorter: CALE LEON ([id number]) [facility] ([facility]) [address] [place] [address] WBC (Bld) [#/Vol] 13.0 10*3/uL High 3.6-10.7 [facility] Comment on above: Performed By: #### L [id number] #### Bag Sorter: CALE LEON ([phone]) [facility] ([facility]) [address] [place] [address] [place] D-DIMER,QUANTITATIVEon 04-14 D-DIMER, INNOVANCE 0.31 mg/L Normal <0.50 [facility] Comment on above: Result Comment: MAI R COMMENTS: [employer] D-Dimer values of <0.50 mg/L FEU can be used in combination with a pre-test probability model (e.g. Well's) to exclude pulmonary embolism (PE) disease, as well as an aid in the diagnosis of deep vein thrombosis (DVT). Performed By: #### L [id number] ####Bag Sorter: CALE LEON ([phone])[facility] ([facility])[address] [place] [address] ED Nursing Noteon 04-14-2025 ED Nursing Note Pt reports slight improvement after breathing treatment but has continued wheezing. Normal [facility] ED Nursing Note Pt to room 9 with c/ o shortness of breath and wheezing x 2 days. Pt reports she has a history of asthma with no improvement with use of inhalers. Normal [facility] ED Provider Noteon ED Provider Note Emergency Department Encounter [facility] Patient: Carine Barba : 1990 Date of Evaluation: 04/14/2025 ED Provider: Vincent Huitron DO Chief Complaint Chief Complaint Patient presents with Shortness of Breath [place] Carine Barba is a 35 y.o. female [...] Vitals Temp Heart Rate Resp BP 04/14/25 17504/14/25 17504/14/25 17504/14/251753 36.8 ?C (98.3 ?F) 89 22 138/72 [...] 347 ms QTC Interval 449 ms P [place] 81 degrees QRS [place] 77 degrees T Wave [place] 15 degrees [place] Interval 146 ms D-dimer, quantitative Collection Time: 04/14/25 8:56 PM (more content not included)... Normal [facility] Fibrin D-dimer FEU (PPP) [Ma ss/Vol]on 04-14-2025 Interpretation and review of laboratory results Normal [facility] D-Dimer values of <0.50 mg/L FEU can be used in combination with a pre-test probability model (e.g. Well's) to exclude pulmonary embolism (PE) disease, as well as an aid in the diagnosis of deep vein thrombosis (DVT). [facility] HCG QUANTITATIVE BLOODon HCG QUANTITATIVE <2.5 Normal Females <5 [facility] Comment on above: Result Comment: MAI [...] gestational trophoblastic disease. Performed By: #### L [id number] #### Bag Sorter: CALE LEON ([phone]) [facility] ([facility]) [address] [place] [address] HIGH SENSITIVITY TROPONIN, S ERIAL BASELINEon 04-14-2025 TROPONIN HS SERIAL BASELINE <3 Normal <=14 [facility] Comment on above: Result Comment: In i ndividuals presenting with symptoms > 2h, a baseline troponin <= 5 ng/L suggests acute cardiac injury is unlikely and further serial testing is generally not indicated. Performed By: #### L [id number] #### Bag Sorter: CALE LEON ([phone]) [facility] ([facility]) [address] [place] [address] HIGH SENSITIVITY TROPONIN, S ERIAL, SECOND TESTon 04-14-2025 2H TROPONIN HS (SERIAL 2ND TROPONIN) <3 Normal <=14 [facility] Comment on above: Result Comment: 2h t roponin (2nd troponin) samples collected between 1h 40 min and 2h and 20 min of the baseline collection time can be utilized to interpret delta troponins as per [facility] algorithms. Samples collected outside this timeframe need to be interpreted clinically. Delta value was unable to be calculated as both baseline and serial troponin tests were below the level of quantitation. As both baseline and 2h troponin values are below the level of quantitation, acute cardiac injury is unlikely. Performed By: #### L [id number], [id number] ####Bag Sorter: CALE LEON ([id number])[facility] ([facility])[address] [place] [address] Laboratory - Chemistry and C hemistry - challengeon 04-14-2025 HCG.beta subunit Qn Females <5 mIU/mL [facility] - Coagulationon 0 04-14-2025 Fibrin D-dimer FEU (PPP) [Mass/Vol] 0.31 mg/L NINF - 0.50 mg/L [facility] - Microbiology an d Antimicrobial susceptibilityon 04-14-2025 FLUAV RNA DAJA+probe Ql (Resp) Not detected Not Detected [facility] FLUBV RNA DAJA+probe Ql (Resp) Not detected Not Detected [facility] RSV RNA DAJA+probe Ql (Resp) Not detected Not Detected [facility] SARS-CoV-2 (COVID-19) RNA DAJA+probe Ql (Resp) Not detected Not Detected [facility] SARS-CoV-2 (COVID-19) RNA DAJA+probe Ql (Unsp spec) Methodology: real-time, RT-PCR The SARS-CoV-2, Flu A/B, and RSV Combo assay is intended for in vitro diagnostic use under the FDA Emergency Use Authorization (EUA). This test has not been FDA cleared or approved. In compliance with this authorization, please visit www.fda.gov/media/3713 35/download or www.fda.gov/media/1840 36/download to access the applicable information sheets. [employer] No Panel Informationon 04-14 2h Troponin HS (Serial 2nd Troponin) ng/L NINF - 14 ng/L [employer] Comment on above: 2h troponin (2nd tro ponin) samples collected between 1h 40 min and 2h and 20 min of the baseline collection time can be utilized to interpret delta troponins as per [employer] algorithms. Samples collected outside this timeframe need to be interpreted clinically. Delta value was unable to be calculated as both baseline and serial troponin tests were below the level of quantitation. As both baseline and 2h troponin values are below the level of quantitation, acute cardiac injury is unlikely. Interpretation and review of laboratory results Normal [facility] [employer] Values in should double every 2 to [...] or monitor tumors or gestational trophoblastic disease. [employer] [facility] Interpretation and review of laboratory results Normal [facility] [employer] Troponin HS Serial Baseline ng/L NINF - 14 ng/L [employer] [facility] Comment on above: In individuals prese nting with symptoms > 2h, a baseline troponin <= 5 ng/L suggests acute cardiac injury is unlikely and further serial testing is generally not indicated. [facility] PROCALCITONIN TESTon 025 PROCALCITONIN 0.02 ng/mL Normal <0.07 [facility] Comment on above: Result Comment: ERAE R COMMENTS: PCT <0.50 = Low risk of severe sepsis and/or septic shock. PCT >2.00 = High risk of severe sepsis and/or septic shock. Performed By: #### L [id number], [id number] ####Bag Sorter: CALE LEON ([phone])[facility] ([facility])[address] [place] [address] RESPIRATORY PATHOGENS PANEL BY PCRon 04-14-2025 RESPIRATORY PATHOGENS PANEL BY PCR SARS-COV-2 Reference Not Detected Not Detected ADENOVIRUS Reference Not Detected Not Detected CORONAVIRUS HKU1 Reference Not Detected Not Detected CORONAVIRUS NL63 Reference Not Detected Not Detected CORONAVIRUS 229E Reference Not Detected Not Detected CORONAVIRUS OC43 Reference Not Detected Not Detected HUMAN METAPNEUMOVIRUS Reference Not Detected Not Detected HUMAN RHINOVIRUS/ENTEROVIRUS Reference Not Detected Not Detected INFLUENZA A [...] Detected ORDER COMMENTS: Methodology: Multiplex PCR Normal [facility] Comment on above: Performed By: #### L [id number] #### Bag Sorter: CALE LEON ([id number]) [facility] ([facility]) [address] [place] [address] SARS-COV-2, FLU A/B, AND RSV COMBOon 04-14-2025 [...] In compliance with this authorization, please visit www.fda.gov/media/6228 35/download or www.fda.gov/media/8024 36/download to access the applicable information sheets. Normal [facility] Comment on above: Performed By: #### L [id number] #### Bag Sorter: CALE LEON ([id number]) [facility] ([facility]) [address] [place] [address] SARS-CoV-2, Flu A/B, and RSV Comboon 04-14-2025 Interpretation and review of laboratory results Normal [facility] XR Chest Single viewon 04-14 No radiographic acute cardiopulmonary process. Report Dictated on Electronically Signed By: Nubia Olivera MD Electronically Signed Date/Time: 04/14/2025 7:59 PM EDT [facility] Patient Name: CARINE BARBA : 1990 Exam Date/Time: 04/14/2025 19:36 Procedure: XR CHEST 1 VIEW Ordering Provider: HUITRON DUSTIN Reason For Exam: shortness of breath INDICATION: Shortness of breath. VIEWS: Chest AP portable-one image COMPARISON: 01/08/2025; CT chest 12/31/2013 FINDINGS: The trachea is midline. The heart is not enlarged. There is no confluent consolidation. Left clavicle screw and plate fixation. [facility] Nubia Olivera MD - 04/14/2025 Patient Name: [...] Electronically Signed Date/Time: 04/14/2025 7:59 PM EDT [facility] Radiology Study observation (narrative) [facility] XR Chest Single viewOrdered By: Nubia Olivera on 04-14-2025 [facility] [employer] Work Phone: CBC W Auto Differential pane l (Bld)on 01-08-2025 Basophils (Bld) [#/Vol] 0.1 10*3/uL 0.0 - 0.2 10*3/uL [facility] [employer] Basophils/100 WBC (Bld) 0.3 % 0.0 - 2.0 % [facility] [employer] Eosinophils (Bld) [#/Vol] 0.5 10*3/uL 0.0 - 0.5 10*3/uL [facility] [employer] Eosinophils/100 WBC (Bld) 2.7 % 0.0 - 6.0 % [facility] [employer] Erythrocyte distribution width (RBC) [Ratio] 13.2 % 11.5 - 15.0 % [facility] [employer] Hematocrit (Bld) [Volume fraction] 40.7 % 35.0 - 47.0 % [facility] [employer] Hemoglobin (Bld) [Mass/Vol] 13.8 g/dL 11.7 - 16.0 g/dL [facility] [employer] Immature granulocytes (Bld) [#/Vol] 0.1 10*3/uL High NINF - 0.1 10*3/uL [facility] [employer] Immature granulocytes/100 WBC (Bld) 0.4 % 0.0 - 2.0 % [facility] [employer] Interpretation and review of laboratory results Abnormal [facility] [employer] Lymphocytes (Bld) [#/Vol] 1.8 10*3/uL 1.0 - 4.3 10*3/uL [facility] [employer] Lymphocytes/100 WBC (Bld) 9.7 % Low 15.0 - 45.0 % [facility] [employer] MCH (RBC) [Entitic mass] 32.5 pg 26.0 - 34.0 pg [facility] [employer] MCHC (RBC) [Mass/Vol] 33.9 % 30.5 - 36.0 % [facility] MCV (RBC) [Entitic vol] 96 fL 77.0 - 99.0 fL [facility] Monocytes (Bld) [#/Vol] 0.9 10*3/uL 0.0 - 0.9 10*3/uL [facility] Monocytes/100 WBC (Bld) 4.8 % Low 5.0 - 13.0 % [facility] Neutrophils (Bld) [#/Vol] 14.8 10*3/uL High 1.8 - 7.5 10*3/uL [facility] Neutrophils/100 WBC (Bld) 82.1 % High 38.0 - 82.0 % [facility] Nucleated RBC/100 WBC (Bld) [Ratio] 0 % [facility] Platelet mean volume (Bld) [Entitic vol] 9.9 fL 9.0 - 12.7 fL [facility] Comment on above: MPV is a calculated measurement using platelet volume ratio Platelets (Bld) [#/Vol] 235 10*3/uL 140 - 440 10*3/uL [facility] RBC (Bld) [#/Vol] 4.24 10*6/uL 3.80 - 5.2 0 10*6/uL [facility] WBC (Bld) [#/Vol] 18.1 10*3/uL High 3.6 - 10.7 10*3/uL [facility] CBC WITH AUTO DIFFERENTIALon 01-08-2025 Basophils (Bld) [#/Vol] 0.1 10*3/uL Normal 0.0-0.2 [facility] Comment on above: Performed By: #### L [id number] ####Bag Sorter: CALE LEON ([phone])[facility] ([facility])[address] [place] [address] [place] Basophils/100 WBC (Bld) 0.3 % Normal 0.0-2.0 [facility] Comment on above: Performed By: #### L [id number] ####Bag Sorter: CALE LEON ([phone])[facility] (SWRLAB)[address] [place] [address] [place] Eosinophils (Bld) [#/Vol] 0.5 10*3/uL Normal 0.0-0.5 [facility] Comment on above: Performed By: #### L [id number] ####Bag Sorter: CALE LEON ([phone])[facility] [place] [facility] (SWRLAB)[address] [place] [address] [place] Eosinophils/100 WBC (Bld) 2.7 % Normal 0.0-6.0 [facility] Comment on above: Performed By: #### L [id number] ####Bag Sorter: CALE LEON ([phone])[facility] [place] (SWRLAB)[address] [place] [address] Erythrocyte distribution width (RBC) [Ratio] 13.2 % Normal 11.5-15.0 [facility] Comment on above: Performed By: #### L [id number] ####Bag Sorter: CALE LEON ([phone])[facility] [place] RIT[facility] (SWRLAB)[address] [place] [address] Hematocrit (Bld) [Volume fraction] 40.7 % Normal 35.0-47.0 [facility] Comment on above: Performed By: #### L [id number] ####Bag Sorter: CALE LEON ([phone])[facility] (SWRLAB)[address] [place] [address] Hemoglobin (Bld) [Mass/Vol] 13.8 g/dL Normal 11.7-16.0 [facility] Comment on above: Performed By: #### L [id number] ####Bag Sorter: CALE LEON ([phone])[facility]Bar BYRDESTELA RITTMAN (SWRLAB)[address] [place] [address] [place] IMMATURE GRANS % 0.4 % Normal 0.0-2.0 [facility] Comment on above: Performed By: #### L [id number] ####Bag Sorter: CALE LEON ([phone])[facility] [place] [facility] (SWRLAB)[address] [place] [address] IMMATURE GRANS ABSOLUTE 0.1 10*3/uL High <0.1 [facility] Comment on above: Performed By: #### L [id number] ####Bag Sorter: CALE LEON ([phone])[facility] [place]IT[facility] (SWRLAB)[address] [place] [address] Lymphocytes (Bld) [#/Vol] 1.8 10*3/uL Normal 1.0-4.3 [facility] Comment on above: Performed By: #### L [id number] ####Bag Sorter: CALE LEON ([phone])[facility] [place] [facility] (SWRLAB)[address] [place] [address] Lymphocytes/100 WBC (Bld) 9.7 % Low 15.0-45.0 [facility] Comment on above: Performed By: #### L [id number] ####Bag Sorter: CALE LEON ([phone])[facility] (SWRLAB)[address] [place] [address] MCH (RBC) [Entitic mass] 32.5 pg Normal 26.0-34.0 [facility] Comment on above: Performed By: #### L [id number] ####Bag Sorter: CALE LEON ([phone])[facility] [place] (SWRLAB)[address] [place] [address] MCHC 33.9 % Normal 30.5-36.0 [facility] Comment on above: Performed By: #### L [id number] ####Bag Sorter: CALE LEON ([phone])[facility] [place] (SWRLAB)[address] [place] [address] MCV (RBC) [Entitic vol] 96.0 fL Normal 77.0-99.0 [facility] Comment on above: Performed By: #### L [id number] ####Bag Sorter: CALE LEON ([phone])[facility] [place] [facility] (SWRLAB)[address] [place] [address] [place] Monocytes (Bld) [#/Vol] 0.9 10*3/uL Normal 0.0-0.9 [facility] Comment on above: Performed By: #### L [id number] ####Bag Sorter: CALE LEON ([phone])[facility] [place] [facility] (SWRLAB)[address] [place] [address] [place] Monocytes/100 WBC (Bld) 4.8 % Low 5.0-13.0 [facility] Comment on above: Performed By: #### L [id number] ####Bag Sorter: CALE LEON ([phone])[facility] [place] [place] (SWRLAB)[address] [place] [address] [place] NEUTROPHILS ABSOLUTE 14.8 10*3/uL High 1.8-7.5 [facility] Comment on above: Performed By: #### L [id number] ####Bag Sorter: CALE LEON ([phone])[facility] [place] (SWRLAB)[address] [place] [address] [place] Neutrophils/100 WBC (Bld) 82.1 % High 38.0-82.0 [facility] Comment on above: Performed By: #### L [id number] ####Bag Sorter: CALE LEON ([phone])[facility] [place] [facility] (SWRLAB)[address] [place] [address] [place] NRBC 0.0 /100 WBCs Normal 0.0-2.0 [facility] Comment on above: Performed By: #### L [id number] ####Bag Sorter: CALE LEON ([phone])[facility]Bar [place] (SWRLAB)[address] [place] [address] [place] Platelet mean volume (Bld) [Entitic vol] 9.9 fL Normal 9.0-12.7 [facility] Comment on above: Result Comment: MPV is a calculated measurement using platelet volume ratio Performed By: #### L [id number] ####Bag Sorter: CALE LEON ([phone])[facility]Bar [facility] (SWRLAB)[address] [place] [address] Platelets (Bld) [#/Vol] 235 10*3/uL Normal 140-440 [facility] Comment on above: Performed By: #### L [id number] ####Bag Sorter: CALE LEON ([phone])[facility]Bar [place] (SWRLAB)[address] RBC (Bld) [#/Vol] 4.24 10*6/uL Normal 3.80-5.20 [facility] Comment on above: Performed By: #### L [id number] ####Bag Sorter: CALE LEON ([phone])[facility] (SWRLAB)[address] [place] [address] WBC (Bld) [#/Vol] 18.1 10*3/uL High 3.6-10.7 [facility] Comment on above: Performed By: #### L [id number] ####Bag Sorter: CALE LEON ([phone])[facility] (SWRLAB)[address] [place] [address] COMPREHENSIVE METABOLIC PANE [place] 01-08-2025 Albumin [Mass/Vol] 4.3 g/dL Normal 3.5-5.0 [facility] Comment on above: Performed By: #### L [id number] #### Bag Sorter: CALE LEON ([phone]) [facility] (SW[place]) [address] ALP [Catalytic activity/Vol] 62 U/L Normal 40-150 [facility] Comment on above: Performed By: #### L [id number] #### Bag Sorter: CALE LEON ([phone]) [facility] (SWRL[place]) [address] [place] [address] [place] ALT [Catalytic activity/Vol] 11 U/L Normal <30 [facility] Comment on above: Performed By: #### L [id number] #### Bag Sorter: CALE LEON ([phone]) [facility] (SWRLAB) [address] [place] [address] [place] Anion gap [Moles/Vol] 7 mmol/L Normal 3-13 [facility] Comment on above: Performed By: #### L [id number] #### Bag Sorter: CALE LEON ([phone]) [facility] [place] [facility] (SWRLAB) [address] [place] [address] [place] AST [Catalytic activity/Vol] 17 U/L Normal <34 [facility] Comment on above: Performed By: #### L [id number] #### Bag Sorter: CALE LEON ([phone]) [facility] (SWRL[place]) [address] [place] [address] [place] Bilirubin [Mass/Vol] 0.6 mg/dL Normal <1.2 [facility] Comment on above: Performed By: #### L [id number] #### Bag Sorter: CALE LEON ([phone]) [facility] [place] [place] (SWRL[place]) [address] [place] [address] [place] Calcium [Mass/Vol] 8.8 mg/dL Normal 8.4-10.2 [facility] Comment on above: Performed By: #### L [id number] #### Bag Sorter: CALE LEON ([phone]) [facility] [place] (SW[place]) [address] [place] [address] [place] Chloride [Moles/Vol] 107 mmol/L Normal 98-107 [facility] Comment on above: Performed By: #### L [id number] #### Bag Sorter: CALE LEON ([phone]) [facility] (SW[place]) [address] [place] [address] [place] CO2 [Moles/Vol] 27 mmol/L Normal 22-29 [facility] Comment on above: Performed By: #### L [id number] #### Bag Sorter: CALE LEON ([phone]) [facility] (SW[place]) [address] [place] [address] [place] Creatinine [Mass/Vol] 0.77 mg/dL Normal 0.57-1.11 [facility] Comment on above: Performed By: #### L [id number] #### Bag Sorter: CALE LEON ([phone]) [facility] (SW[facility]) [address] [place] [address] GLOMERULAR FILTRATION RATE ML/MIN/1.73 SQ M.PREDICTED >90.0 Normal >60.0 [facility] Comment on above: Result Comment: Calc ulation based on the Chronic Kidney Disease Epidemiology Collaboration (CKD-EPI) equation refit without adjustment for race Performed By: #### L [id number] #### Bag Sorter: CALE LEON ([phone]) [facility] ([facility]) [address] [place] [address] [place] Glucose [Mass/Vol] 88 mg/dL Normal 74-100 [facility] Comment on above: Performed By: #### L [id number] #### Bag Sorter: CALE LEON ([phone]) [facility] ([place]) [address] [place] [address] [place] Potassium [Moles/Vol] 3.8 mmol/L Normal 3.5-5.1 [facility] Comment on above: Result Comment: [facility] potassium values may be up to 0.5 mmol/L lower than serum values. Performed By: #### L [id number] #### Bag Sorter: CALE LEON ([phone]) [facility] ([facility]) [address] [place] [address] [place] Protein [Mass/Vol] 6.9 g/dL Normal 6.4-8.3 [facility] Comment on above: Performed By: #### L [id number] #### Bag Sorter: CALE LEON ([phone]) [facility] (SWRL[place]) [address] Sodium [Moles/Vol] 141 mmol/L Normal 136-145 [facility] Comment on above: Performed By: #### L [id number] #### Bag Sorter: CALE LEON ([phone]) [facility] [place] (SWRLAB) [address] Urea nitrogen [Mass/Vol] 12 mg/dL Normal 8-21 [facility] Comment on above: Performed By: #### L [id number] #### Bag Sorter: CALE LEON ([phone]) [facility]ALESTELAAMITA RODRIGUEZTMAN (SWRLAB) [address] Comprehensive metabolic 1998 panelon 01-08-2025 Albumin [Mass/Vol] 4.3 g/dL 3.5 - 5.0 g/dL [facility] ALP [Catalytic activity/Vol] 62 U/L 40 - 150 U/L [facility] ALT [Catalytic activity/Vol] 11 U/L [facility] U/L [facility] Anion gap [Moles/Vol] 7 mmol/L 3 - 13 mmol/L [facility] AST [Catalytic activity/Vol] 17 U/L [facility] - 34 U/L [facility] Bilirubin [Mass/Vol] 0.6 mg/dL [facility] - 1.2 mg/dL [facility] Calcium [Mass/Vol] 8.8 mg/dL 8.4 - 10. 2 mg/dL [facility] Chloride [Moles/Vol] 107 mmol/L 98 - 10 7 mmol/L [facility] CO2 [Moles/Vol] 27 mmol/L 22 - 29 mmol/L [facility] Creatinine [Mass/Vol] 0.77 mg/dL 0.57 - 1.11 mg/dL [facility] GFR/1.73 sq M.predicted (S/P/Bld) [Vol rate/Area] - PINF [facility] Comment on above: Calculation based on the Chronic Kidney Disease Epidemiology Collaboration (CKD-EPI) equation refit without adjustment for race Glucose [Mass/Vol] 88 mg/dL 74 - 100 mg/dL [facility] Interpretation and review of laboratory results Normal [facility] Potassium [Moles/Vol] 3.8 mmol/L 3.5 - 5.1 mmol/L [facility] Comment on above: Plasma potassium phillip ues may be up to 0.5 mmol/L lower than serum values. Protein [Mass/Vol] 6.9 g/dL 6.4 - 8.3 g/dL [facility] Sodium [Moles/Vol] 141 mmol/L 136 - 145 mmol/L [facility] Urea nitrogen [Mass/Vol] 12 mg/dL 8 - 21 mg/dL [facility] ED Nursing Noteon 01-08-2025 ED Nursing Note Patient arrived via wheelchair to room 5 with male visitor. Patient complains of SOB since yesterday. Patient has hx of asthma and has been using her inhalers with no relief. Patient audibly wheezing. Patient states muscles in chest feel tight and it hurts to take a deep breath. Normal [facility] ED Provider Noteon ED Provider Note EMERGENCY [...] Insecurity: No Food Insecurity (10/18/2024) Received from [facility] Hunger Vital Sign ? Worried About Running Out of Food in the Last Year: Never true ? Ran Out of Food in the Last Year: Never true Transportation Needs: No Transportation Needs (10/18/2024) [facility] ? Lack of Transportation (Medical): No ? Lack of Transportation (Non-Medical): No Housing Stability: Unknown (10/18/2024) Received from [facility] Housing Stability Vital Sign ? [...] Signed Date/Time: (more content not included)... Normal [facility] Laboratory - Microbiology an d Antimicrobial susceptibilityon 01-08-2025 FLUAV RNA DAJA+probe Ql (Resp) Not detected Not Detected [facility] FLUBV RNA DAJA+probe Ql (Resp) Not detected Not Detected [facility] RSV RNA DAJA+probe Ql (Resp) Not detected Not Detected [facility] SARS-CoV-2 (COVID-19) RNA DAJA+probe Ql (Resp) Not detected Not Detected [facility] SARS-CoV-2 (COVID-19) RNA DAJA+probe Ql (Unsp spec) Methodology: real-time, RT-PCR The SARS-CoV-2, Flu A/B, and RSV Combo assay is intended for in vitro diagnostic use under the FDA Emergency Use Authorization (EUA). This test has not been FDA cleared or approved. In compliance with this authorization, please visit www.fda.gov/media/1429 35/download or www.fda.gov/media/1425 36/download to access the applicable information sheets. [facility] SARS-COV-2, FLU A/B, AND RSV COMBOon [...] In compliance with this authorization, please visit www.fda.gov/media/1424 35/download or www.fda.gov/media/1429 36/download to access the applicable information sheets. Normal [facility] Comment on above: Performed By: #### L [id number] #### Bag Sorter: CALE LEON ([phone]) [facility] ([facility]) [address] [place] [address] SARS-CoV-2, Flu A/B, and RSV Comboon 01-08-2025 Interpretation and review of laboratory results Normal [facility] XR Chest Single viewon 01-08 No acute cardiopulmonary process identified. Report Dictated on Electronically Signed By: Damon Mccauley MD Electronically Signed Date/Time: 01/08/2025 2:40 AM EDT [facility] [employer] Patient Name: ACRINE BARBA : 1990 Exam Date/Time: 01/08/2025 02:04 [...] identified. ORIF of the left clavicle noted. [facility] Damon Mccauley MD - 01/08/2025 Patient Name: [facility] 1990 [id number] Exam Date/Time: 01/08/2025 02:04 Procedure: XR CHEST [...] Electronically Signed Date/Time: 01/08/2025 2:40 AM EDT [facility] Radiology Study observation (narrative) [facility] XR Chest Single viewOrdered By: Damon Mccauley on 01-08-2025 [facility] [employer] Work Phone: CBC panel Auto (Bld)on 10-20 Erythrocyte distribution width (RBC) [Ratio] 12.9 % Normal 11.5-15.0 [facility] Comment on above: Order Comment: Jayne almonte Type: BLOOD SPECIMENOrdering Facility: [facility] Address: [address] [place] [address] Performed By: #### 5 8410-2 ####[facility] LABORATORYCLIA [id number] [address] [place] Hematocrit (Bld) [Volume fraction] 42.2 % Normal 36.0-46.0 [facility] Comment on above: Order Comment: Jayne almonte Type: BLOOD SPECIMENOrdering Facility: [facility] Address: [address] [place] [address] Performed By: #### 5 8410-2 ####QU[facility] LABORATORYCLIA [id number] [address] [place] Hemoglobin (Bld) [Mass/Vol] 13.8 g/dL Normal 11.5-15.5 [facility] Comment on above: Order Comment: Jayne almonte Type: BLOOD SPECIMENOrdering Facility: [facility] Address: [address] [place] [address] Performed By: #### 5 8410-2 ####QUIROZ LABORATORYCLIA [id number] [address] MCH (RBC) [Entitic mass] 31.8 pg Normal 26.0-34.0 [facility] Comment on above: Order Comment: Speci men Type: BLOOD SPECIMENOrdering Facility: [facility] Address: [address] [place] [address] Performed By: #### 5 8410-2 ####QUIROZ LABORATORYCLIA [id number] [address] MCHC (RBC) [Mass/Vol] 32.7 g/dL Normal 30.5-36.0 [facility] Comment on above: Order Comment: Speci men Type: BLOOD SPECIMENOrdering Facility: [facility] Address: [address] [place] [address] Performed By: #### 5 8410-2 ####QUIROZ LABORATORYCLIA [id number] [address] MCV (RBC) [Entitic vol] 97.2 fL Normal 80.0-100.0 [facility] Comment on above: Order Comment: Speci men Type: BLOOD SPECIMENOrdering Facility: [facility] Address: [address] [place] [address] Performed By: #### 5 8410-2 ####QUIROZ LABORATORYCLIA [id number] [address] Nucleated RBC (Bld) [#/Vol] 10*3/uL Normal <0.01 [facility] Comment on above: Order Comment: Speci men Type: BLOOD SPECIMENOrdering Facility: [facility] Address: [address] [place] [address] Performed By: #### 5 8410-2 ####QUIROZ LABORATORYCLIA [id number] [address] Platelet mean volume (Bld) [Entitic vol] 10.0 fL Normal 9.0-12.7 [facility] Comment on above: Order Comment: Speci men Type: BLOOD SPECIMENOrdering Facility: [facility] Address: [address] [place] [address] Performed By: #### 5 8410-2 ####QUIROZ LABORATORYCLIA [id number] [address] [place] Platelets (Bld) [#/Vol] 238 10*3/uL Normal 150-400 [facility] Comment on above: Order Comment: Speci men Type: BLOOD SPECIMENOrdering Facility: [facility] Address: [address] [place] [address] Performed By: #### 5 8410-2 ####B[facility]ET[facility] LABORATORYCLIA [id number] [place] [address] [place] RBC (Bld) [#/Vol] 4.34 10*6/uL Normal 3.90-5.20 [facility] Comment on above: Order Comment: Speci men Type: BLOOD SPECIMENOrdering Facility: [facility] Address: [address] [place] [address] Performed By: #### 5 8410-2 ####BUNCET[facility] LABORATORYCLIA [id number] [address] [place] WBC (Bld) [#/Vol] 7.49 10*3/uL Normal 3.70-11.00 [facility] Comment on above: Order Comment: Speci men Type: BLOOD SPECIMENOrdering Facility: [facility] Address: [address] [place] [address] Performed By: #### 5 8410-2 ####QUIROZ LABORATORYCLIA [id number] [address] [place] CNCOon 10-20-2024 CNCO Letter Text Normal [facility] CNDSon 10-20-2024 CNDS HNO ID: [id number] Author: NALDO RYAN MD Service: General Internal [...] Attending Provider: Sunil Romero MD REASON FOR HOSPITALIZATION/DIAGNO SIS: Severe asthma with exacerbation -POA Pneumonia of [...] were sent to e- [id number] [place] [address] - [address] [place] [address] - [id number] [place] [address] guaiFENesin 600 mg 12 hr tablet levoFLOXacin [...] Management, and RN I have performed the upbt-uy-[id number] and relevant services for a total of < 30 minutes. SIGNATURE: Naldo Ryan MD DATE: October 20, 2024 TIME: 9:58 AM Normal [facility] Comprehensive metabolic 2000 panelon 10-20-2024 Albumin [Mass/Vol] 4.0 g/dL Normal 3.9-4.9 [facility] Comment on above: Order Comment: Jayne almonte Type: BLOOD SPECIMENOrdering Facility: [facility] Address: [address] [place] [address] Performed By: #### 2 4323-8 ####B[facility] LABORATORYCLIA [id number] [place] [address] [place] ALP [Catalytic activity/Vol] 86 U/L Normal 34-123 [facility] Comment on above: Order Comment: Jayne almonte Type: BLOOD SPECIMENOrdering Facility: [facility] Address: [address] [place] [address] Performed By: #### 2 4323-8 ####QUIROZ LABORATORYCLIA [id number] [address] [place] ALT [Catalytic activity/Vol] 32 U/L Normal 7-38 [facility] Comment on above: Order Comment: Speci men Type: BLOOD SPECIMENOrdering Facility: [facility] Address: [address] [place] [address] Performed By: #### 2 4323-8 ####QUIROZ LABORATORYCLIA [id number] [place] [address] [place] Anion gap [Moles/Vol] 7 mmol/L Low 8-15 [facility] Comment on above: Order Comment: Speci men Type: BLOOD SPECIMENOrdering Facility: [facility] Address: [address] [place] [address] Performed By: #### 2 4323-8 ####QUIROZ LABORATORYCLIA [id number] [address] [place] AST [Catalytic activity/Vol] 19 U/L Normal 13-35 [facility] Comment on above: Order Comment: Speci men Type: BLOOD SPECIMENOrdering Facility: [facility] Address: [address] [place] [address] Performed By: #### 2 4323-8 ####QUIROZ LABORATORYCLIA [id number] [place] [address] [place] Bilirubin [Mass/Vol] 0.3 mg/dL Normal 0.2-1.3 [facility] Comment on above: Order Comment: Speci men Type: BLOOD SPECIMENOrdering Facility: [facility] Address: [address] [place] [address] Performed By: #### 2 4323-8 ####QUIROZ LABORATORYCLIA [id number] [address] Calcium [Mass/Vol] 9.6 mg/dL Normal 8.5-10.2 [facility] Comment on above: Order Comment: Speci men Type: BLOOD SPECIMENOrdering Facility: [facility] Address: [address] [place] [address] Performed By: #### 2 4323-8 ####QUIR[facility]Z LABORATORYCLIA [id number] [place] [address] [place] Chloride [Moles/Vol] 98 mmol/L Normal 98-107 [facility] Comment on above: Order Comment: Speci men Type: BLOOD SPECIMENOrdering Facility: [facility] Address: [address] [place] [address] Performed By: #### 2 4323-8 ####QUIROZ LABORATORYCLIA [id number] [place] [address] [place] CO2 [Moles/Vol] 32 mmol/L High 22-30 [facility] Comment on above: Order Comment: Speci men Type: BLOOD SPECIMENOrdering Facility: [facility] Address: [address] [place] [address] Performed By: #### 2 4323-8 ####QUIROZ LABORATORYCLIA [id number] [address] Creatinine [Mass/Vol] 0.70 mg/dL Normal 0.58-0.96 [facility] Comment on above: Order Comment: Speci men Type: BLOOD SPECIMENOrdering Facility: [facility] Address: [address] [place] [address] Performed By: #### 2 4323-8 ####QUIROZ LABORATORYCLIA [id number] [address] Creatinine and Glomerular filtration rate.predicted panel (S/P/Bld) 117 mL/min/1.73m??? Normal >=60 [facility] Comment on above: Order Comment: Speci men Type: BLOOD SPECIMENOrdering Facility: [facility] Address: [address] [place] [address] Result Comment: Vidhi mated Glomerular Filtration Rate [...] Performed By: #### 2 4323-8 ####QUIROZ LABORATORYCLIA [id number] [place] [address] [place] Glucose [Mass/Vol] 134 mg/dL High 74-99 [facility] Comment on above: Order Comment: Jayne almonte Type: BLOOD SPECIMENOrdering Facility: [facility] Address: [address] [place] [address] Result Comment: The [place] [employer] (ADA) provides guidance for cutoff [...] Standards of Medical Care in Diabetes 2016, [place] [employer]. Diabetes Care. 2016.39(Suppl 1). Performed By: #### 2 4323-8 ####QUIROZ LABORATORYCLIA [id number] [place] [address] [place] Potassium [Moles/Vol] 5.5 mmol/L High 3.7-5.1 [facility] Comment on above: Order Comment: Jayne almonte Type: BLOOD SPECIMENOrdering Facility: [facility] Address: [address] [place] [address] Performed By: #### 2 4323-8 ####QUIROZ LABORATORYCLIA [id number] [place] [address] [place] Protein [Mass/Vol] 6.8 g/dL Normal 6.3-8.0 [facility] Comment on above: Order Comment: Jayne almonte Type: BLOOD SPECIMENOrdering Facility: [facility] Address: [address] [place] [address] Performed By: #### 2 4323-8 ####QUIROZ LABORATORYCLIA [id number] [place] [address] [place] Sodium [Moles/Vol] 137 mmol/L Normal 136-144 [facility] Comment on above: Order Comment: Speci men Type: BLOOD SPECIMENOrdering Facility: [facility] Address: [address] [place] [address] Performed By: #### 2 4323-8 ####QUIROZ LABORATORYCLIA [id number] [address] STATES [facility] Urea nitrogen [Mass/Vol] 17 mg/dL Normal 7-21 [facility] Comment on above: Order Comment: Speci men Type: BLOOD SPECIMENOrdering Facility: [facility] Address: [address] [place] [address] Performed By: #### 2 4323-8 ####QUIROZ LABORATORYCLIA [id number] [address] ALLIED HEALTHon 10-19-2024 ALLIED HEALTH HNO ID: [id number] Author: SARAH GALLOWAY RN Service: Infection Prevention [...] 19, 2024 TIME: 9:02 AM PAGER/CONTACT #: [phone] Infection Prevention after hours/weekend pager: Contact Nursing Process Control Engineer Normal [facility] Bacteria Spec Resp Culton Bacteria identified Respiratory culture Nom (Unsp spec) ORGANISM ID: 1 Few normal respiratory placido GRAM STAIN: No organisms seen No Polymorphonuclear Leukocytes Abnormal [facility] Comment on above: Performed By: #### 3 2355-0 ####[facility] LABCLIA [id number] [address] [place] CBC panel Auto (Bld)on 10-19 Erythrocyte distribution width (RBC) [Ratio] 13.1 % Normal 11.5-15.0 [facility] Comment on above: Order Comment: Speci men Type: BLOOD SPECIMENOrdering Facility: [facility] Address: [address] [place] [address] Performed By: #### 5 8410-2 ####QUIROZ LABORATORYCLIA [id number] [address] Hematocrit (Bld) [Volume fraction] 41.0 % Normal 36.0-46.0 [facility] Comment on above: Order Comment: Speci men Type: BLOOD SPECIMENOrdering Facility: [facility] Address: [address] [place] [address] Performed By: #### 5 8410-2 ####QUIROZ LABORATORYCLIA [id number] [address] Hemoglobin (Bld) [Mass/Vol] 13.7 g/dL Normal 11.5-15.5 [facility] Comment on above: Order Comment: Speci men Type: BLOOD SPECIMENOrdering Facility: [facility] Address: [address] [place] [address] Performed By: #### 5 8410-2 ####QUIROZ LABORATORYCLIA [id number] [address] MCH (RBC) [Entitic mass] 31.9 pg Normal 26.0-34.0 [facility] Comment on above: Order Comment: Speci men Type: BLOOD SPECIMENOrdering Facility: [facility] Address: [address] [place] [address] Performed By: #### 5 8410-2 ####QUIROZ LABORATORYCLIA [id number] [address] STATES [facility] MCHC (RBC) [Mass/Vol] 33.4 g/dL Normal 30.5-36.0 [facility] Comment on above: Order Comment: Speci men Type: BLOOD SPECIMENOrdering Facility: [facility] Address: [address] [place] [address] Performed By: #### 5 8410-2 ####QUIROZ LABORATORYCLIA [id number] [address] MCV (RBC) [Entitic vol] 95.6 fL Normal 80.0-100.0 [facility] Comment on above: Order Comment: Speci men Type: BLOOD SPECIMENOrdering Facility: [facility] Address: [address] [place] [address] Performed By: #### 5 8410-2 ####QUIROZ LABORATORYCLIA [id number] [place] [address] [place] Nucleated RBC (Bld) [#/Vol] 10*3/uL Normal <0.01 [facility] Comment on above: Order Comment: Speci men Type: BLOOD SPECIMENOrdering Facility: [facility] Address: [address] [place] [address] Performed By: #### 5 8410-2 ####QUIROZ LABORATORYCLIA [id number] [place] [address] [place] Platelet mean volume (Bld) [Entitic vol] 10.0 fL Normal 9.0-12.7 [facility] Comment on above: Order Comment: Speci men Type: BLOOD SPECIMENOrdering Facility: [facility] Address: [address] [place] [address] Performed By: #### 5 8410-2 ####QUIROZ LABORATORYCLIA [id number] [place] [address] [place] Platelets (Bld) [#/Vol] 234 10*3/uL Normal 150-400 [facility] Comment on above: Order Comment: Speci men Type: BLOOD SPECIMENOrdering Facility: [facility] Address: [address] [place] [address] Performed By: #### 5 8410-2 ####QUIROZ LABORATORYCLIA [id number] [place] [address] [place] RBC (Bld) [#/Vol] 4.29 10*6/uL Normal 3.90-5.20 [facility] Comment on above: Order Comment: Speci men Type: BLOOD SPECIMENOrdering Facility: [facility] Address: [address] [place] [address] Performed By: #### 5 8410-2 ####QUIROZ LABORATORYCLIA [id number] [place] [address] [place] WBC (Bld) [#/Vol] 7.30 10*3/uL Normal 3.70-11.00 [facility] Comment on above: Order Comment: Speci men Type: BLOOD SPECIMENOrdering Facility: [facility] Address: [address] [place] [address] Performed By: #### 5 8410-2 ####QUIROZ LABORATORYCLIA [id number] [address] OF [facility] Comprehensive metabolic 2000 panelon 10-19-2024 Albumin [Mass/Vol] 3.6 g/dL Low 3.9-4.9 [facility] Comment on above: Order Comment: Speci men Type: BLOOD SPECIMENOrdering Facility: [facility] Address: [address] [place] [address] Performed By: #### 2 4323-8 ####QUIROZ LABORATORYCLIA [id number] [address] [place] ALP [Catalytic activity/Vol] 96 U/L Normal 34-123 [facility] Comment on above: Order Comment: Speci men Type: BLOOD SPECIMENOrdering Facility: [facility] Address: [address] [place] [address] Performed By: #### 2 4323-8 ####QUIROZ LABORATORYCLIA [id number] [address] ALT [Catalytic activity/Vol] 33 U/L Normal 7-38 [facility] Comment on above: Order Comment: Speci men Type: BLOOD SPECIMENOrdering Facility: [facility] Address: [address] [place] [address] Performed By: #### 2 4323-8 ####QUIROZ LABORATORYCLIA [id number] [address] [place] Anion gap [Moles/Vol] 8 mmol/L Normal 8-15 [facility] Comment on above: Order Comment: Speci men Type: BLOOD SPECIMENOrdering Facility: [facility] Address: [address] [place] [address] Performed By: #### 2 4323-8 ####QUIROZ LABORATORYCLIA [id number] [address] [place] AST [Catalytic activity/Vol] 25 U/L Normal 13-35 [facility] Comment on above: Order Comment: Speci men Type: BLOOD SPECIMENOrdering Facility: [facility] Address: [address] [place] [address] Performed By: #### 2 4323-8 ####QUIROZ LABORATORYCLIA [id number] [place] [address] [place] Bilirubin [Mass/Vol] 0.4 mg/dL Normal 0.2-1.3 [facility] Comment on above: Order Comment: Speci men Type: BLOOD SPECIMENOrdering Facility: [facility] Address: [address] [place] [address] Performed By: #### 2 4323-8 ####QUIROZ LABORATORYCLIA [id number] [place] [address] [place] Calcium [Mass/Vol] 9.1 mg/dL Normal 8.5-10.2 [facility] Comment on above: Order Comment: Speci men Type: BLOOD SPECIMENOrdering Facility: [facility] Address: [address] [place] [address] Performed By: #### 2 4323-8 ####QUIROZ LABORATORYCLIA [id number] [place] [address] [place] Chloride [Moles/Vol] 99 mmol/L Normal 98-107 [facility] Comment on above: Order Comment: Speci men Type: BLOOD SPECIMENOrdering Facility: [facility] Address: [address] [place] [address] Performed By: #### 2 4323-8 ####QUIROZ LABORATORYCLIA [id number] [place] [address] [place] CO2 [Moles/Vol] 30 mmol/L Normal 22-30 [facility] Comment on above: Order Comment: Speci men Type: BLOOD SPECIMENOrdering Facility: [facility] Address: [address] [place] [address] Performed By: #### 2 4323-8 ####QUIROZ LABORATORYCLIA [id number] [place] [address] [place] Creatinine [Mass/Vol] 0.75 mg/dL Normal 0.58-0.96 [facility] Comment on above: Order Comment: Jayne almonte Type: BLOOD SPECIMENOrdering Facility: [facility] Address: [address] [place] [address] Performed By: #### 2 4323-8 ####QUIROZ LABORATORYCLIA [id number] [place] [address] [place] Creatinine and Glomerular filtration rate.predicted panel (S/P/Bld) 108 mL/min/1.73m??? Normal >=60 [facility] Comment on above: Order Comment: Jayne gage Type: BLOOD SPECIMENOrdering Facility: [facility] Address: [address] [place] [address] Result Comment: Vidhi mated Glomerular Filtration Rate [...] actual GFR. Performed By: #### 2 4323-8 ####[facility] LABORATORYCLIA [id number] [place] [id number] [place] Glucose [Mass/Vol] 117 mg/dL High 74-99 [facility] Comment on above: Order Comment: Sethbeto almonte Type: BLOOD SPECIMENOrdering Facility: [facility] Address: [address] [place] [address] Result Comment: The [place] [employer] (ADA) provides guidance for cutoff [...] Standards of Medical Care in Diabetes 2016, [place] [employer]. Diabetes Care. 2016.39(Suppl 1). Performed By: #### 2 4323-8 ####QUIROZ LABORATORYCLIA [id number] [address] [place] Potassium [Moles/Vol] 4.9 mmol/L Normal 3.7-5.1 [facility] Comment on above: Order Comment: Speci men Type: BLOOD SPECIMENOrdering Facility: [facility] Address: [address] [place] [address] Performed By: #### 2 4323-8 ####QUIROZ LABORATORYCLIA [id number] [address] [place] Protein [Mass/Vol] 6.6 g/dL Normal 6.3-8.0 [facility] Comment on above: Order Comment: Speci men Type: BLOOD SPECIMENOrdering Facility: [facility] Address: [address] [place] [address] Performed By: #### 2 4323-8 ####QUIROZ LABORATORYCLIA [id number] [address] STATES [facility] Sodium [Moles/Vol] 137 mmol/L Normal 136-144 [facility] Comment on above: Order Comment: Speci men Type: BLOOD SPECIMENOrdering Facility: [facility] Address: [address] [place] [address] Performed By: #### 2 4323-8 ####QIUROZ LABORATORYCLIA [id number] [address] [place] Urea nitrogen [Mass/Vol] 18 mg/dL Normal 7-21 [facility] Comment on above: Order Comment: Speci men Type: BLOOD SPECIMENOrdering Facility: [facility] Address: [address] [place] [address] Performed By: #### 2 4323-8 ####QUIROZ LABORATORYCLIA [id number] [place] [id number] [place] ALLIED HEALTHon 10-18-2024 ALLIED HEALTH HNO ID: [id number] Author: FAUSTINO NICE, FABIO Service: Radiology Author Type: Technologist Type: Allied [...] PATIENT PRESENTS WITH AN IMPLANTABLE OR ATTACHED UPSET OPERATOR: No RADIOLOGY DEPARTMENT: CT; Exam(s) Completed: PE Study PERIPHERAL IV DATA: Inpatient: see LDA documentation SIGNED BY: FABIO Givens October 18, 2024 12:48 PM [facility] HEALTH HNO ID: [id number] Author: IDALIA LOPEZ RT(R) Service: Radiology Author Type: Packing Room Inspector Type: Allied Health Filed: 10/18/2024 11:48 Note [...] PATIENT PRESENTS WITH AN IMPLANTABLE OR ATTACHED UPSET OPERATOR: No RADIOLOGY DEPARTMENT: General X-ray: Exam(s) Completed: Chest X-Ray PERIPHERAL IV DATA: Not applicable SIGNED BY: RT Lona([place]) October 18, 2024 11:47 AM [facility] CASE MGT INIT [facility] 2023 CASE MGT INIT [facility] HNO ID: [id number] Author: FAWN LONGO LSW Service: ASSESSMENT Author Type: Sales And Management Trainee Type: Care Mgt Initial Assessment Filed: 10/18/2024 23:23 Note Text: CARE MANAGEMENT: ASSESSMENT AND DISCHARGE PLAN SERVICE DATE: October 18, 2024 SERVICE TIME: 11:19 PM PCP: No primary care provider on file. Primary Contact: Extended Emergency Contact Information Primary Emergency Contact: Randell Scanlon Mobile Relation: Significant other Admission Status: Inpatient [facility] Discharge Planning requested by: Per Department Practice Potential Transition Plans Home;To Be Determined Advance Directives Current Advance Directive: Health Care Power of Production Statistical Clerk;Living Will In Chart: No Director Of Database Marketing Attempted to Assist with AD Completion: Yes Action: Education Provided Current Living Arrangements and Support Lives with: Children, Spouse/significant other Type of Residence: Private Residence (House) Does the patient have to climb stairs at home?: Yes;stairs outside the home;stairs within the home (3 outside/12 inside) Support: Spouse/significant other How do you manage to accomplish the following: Independent: Ambulation;Bathe/Showe r;Dress;Meals/Meal Prep;Going to the bathroom;Medication Management;Transportat ion to appointments/community Current Services/Equipment Current Post-Acute Service(s): None Discharge Planning Patient Goal(s): General wellness, Be able to go home Holiday of Choice Explained: Holiday of Choice Given: No Reason Not Given: [...] of services. No equipment use. Pt uses [facility], in [place]. Sig other will p/u on d/c. CM will follow with d/c planning needs. SIGNATURE: DICK Colon, FREDDY PATIENT NAME: Carine Barba DATE: October 18, 2024 TIME: 11:18 PM [facility] CBC W Auto Differential pane l (Bld)on 10-18-2024 Basophils (Bld) [#/Vol] 10*3/uL Normal <0.11 M [facility] Comment on above: Order Comment: Speci men Type: BLOOD SPECIMENOrdering Facility: [facility] Address: [address] [place] [address] Performed By: #### 5 7021-8 ####QUIROZ LABORATORYCLIA [id number] [place] [address] [place] Basophils/100 WBC (Bld) 0.2 % Normal [facility] Comment on above: Order Comment: Speci men Type: BLOOD SPECIMENOrdering Facility: [facility] Address: [address] [place] [address] Performed By: #### 5 7021-8 ####QUIR[facility] LABORATORYCLIA [id number] [place] [address] [place] Differential cell count method Nom (Bld) Auto Normal [facility] Comment on above: Order Comment: Speci men Type: BLOOD SPECIMENOrdering Facility: [facility] Address: [address] [place] [address] Performed By: #### 5 7021-8 ####QU[facility] LABORATORYCLIA [id number] [place] [address] [place] Eosinophils (Bld) [#/Vol] 10*3/uL Normal <0.46 [facility] Comment on above: Order Comment: Speci men Type: BLOOD SPECIMENOrdering Facility: [facility] Address: [address] [place] [address] Performed By: #### 5 7021-8 ####QUIR[facility] LABORATORYCLIA [id number] [place] [address] [place] Eosinophils/100 WBC (Bld) 0.0 % Normal [facility] Comment on above: Order Comment: Speci men Type: BLOOD SPECIMENOrdering Facility: [facility] Address: [address] [place] [address] Performed By: #### 5 7021-8 ####QUIROZ LABORATORYCLIA [id number] [address] [address] Erythrocyte distribution width (RBC) [Ratio] 13.2 % Normal 11.5-15.0 [facility] Comment on above: Order Comment: Speci men Type: BLOOD SPECIMENOrdering Facility: [facility] Address: [address] [place] [address] Performed By: #### 5 7021-8 ####QUIR[facility]Z LABORATORYCLIA [id number] [address] [place] Hematocrit (Bld) [Volume fraction] 39.6 % Normal 36.0-46.0 [facility] Comment on above: Order Comment: Speci men Type: BLOOD SPECIMENOrdering Facility: [facility] Address: [address] [place] [address] Performed By: #### 5 7021-8 ####QU[facility] LABORATORYCLIA [id number] [address] [place] Hemoglobin (Bld) [Mass/Vol] 13.3 g/dL Normal 11.5-15.5 [facility] Comment on above: Order Comment: Speci men Type: BLOOD SPECIMENOrdering Facility: [facility] Address: [address] [place] [address] Performed By: #### 5 7021-8 ####QUIR[facility]Z LABORATORYCLIA [id number] [address] [place] Immature granulocytes (Bld) [#/Vol] 0.03 10*3/uL Normal <0.10 [facility] Comment on above: Order Comment: Speci men Type: BLOOD SPECIMENOrdering Facility: [facility] Address: [address] [place] [address] Performed By: #### 5 7021-8 ####QU[facility] LABORATORYCLIA [id number] [address] [place] Immature granulocytes/100 WBC (Bld) 0.3 % Normal [facility] Comment on above: Order Comment: Speci men Type: BLOOD SPECIMENOrdering Facility: [facility] Address: [address] [place] [address] Performed By: #### 5 7021-8 ####[facility] LABORATORYCLIA [id number] [address] Lymphocytes (Bld) [#/Vol] 2.48 10*3/uL Normal 1.00-4.00 [facility] Comment on above: Order Comment: Speci men Type: BLOOD SPECIMENOrdering Facility: [facility] Address: [address] [place] [address] Performed By: #### 5 7021-8 ####[facility] LABORATORYCLIA [id number] [address] Lymphocytes/100 WBC (Bld) 25.1 % Normal [facility] Comment on above: Order Comment: Speci men Type: BLOOD SPECIMENOrdering Facility: [facility] Address: [address] [place] [address] Performed By: #### 5 7021-8 ####[facility] LABORATORYCLIA [id number] [address] MCH (RBC) [Entitic mass] 32.4 pg Normal 26.0-34.0 [facility] Comment on above: Order Comment: Speci men Type: BLOOD SPECIMENOrdering Facility: [facility] Address: [address] [place] [address] Performed By: #### 5 7021-8 ####[facility] LABORATORYCLIA [id number] [address] MCHC (RBC) [Mass/Vol] 33.6 g/dL Normal 30.5-36.0 [facility] Comment on above: Order Comment: Speci men Type: BLOOD SPECIMENOrdering Facility: [facility] Address: [address] [place] [address] Performed By: #### 5 7021-8 ####[facility] LABORATORYCLIA [id number] [address] MCV (RBC) [Entitic vol] 96.4 fL Normal 80.0-100.0 [facility] Comment on above: Order Comment: Speci men Type: BLOOD SPECIMENOrdering Facility: [facility] Address: [address] [place] [address] Performed By: #### 5 7021-8 ####[facility] LABORATORYCLIA [id number] [place] [address] [place] Monocytes (Bld) [#/Vol] 0.65 10*3/uL Normal <0.87 [facility] Comment on above: Order Comment: Speci men Type: BLOOD SPECIMENOrdering Facility: [facility] Address: [address] [place] [address] Performed By: #### 5 7021-8 ####[facility] LABORATORYCLIA [id number] [address] [place] [facility] Monocytes/100 WBC (Bld) 6.6 % Normal [facility] Comment on above: Order Comment: Speci men Type: BLOOD SPECIMENOrdering Facility: [facility] Address: [address] [place] [address] Performed By: #### 5 7021-8 ####[facility] LABORATORYCLIA [id number] [address] [place] Neutrophils (Bld) [#/Vol] 6.69 10*3/uL Normal 1.45-7.50 [facility] Comment on above: Order Comment: Speci men Type: BLOOD SPECIMENOrdering Facility: [facility] Address: [address] [place] [address] Performed By: #### 5 7021-8 ####[facility] LABORATORYCLIA [id number] [address] Neutrophils/100 WBC (Bld) 67.8 % Normal [facility] Comment on above: Order Comment: Speci men Type: BLOOD SPECIMENOrdering Facility: [facility] Address: [address] [place] [address] Performed By: #### 5 7021-8 ####[facility] LABORATORYCLIA [id number] [place] [address] [place] Nucleated RBC (Bld) [#/Vol] 10*3/uL Normal <0.01 [facility] Comment on above: Order Comment: Speci men Type: BLOOD SPECIMENOrdering Facility: [facility] Address: [address] [place] [address] Performed By: #### 5 7021-8 ####[facility] LABORATORYCLIA [id number] [place] [address] [place] Nucleated RBC/100 WBC (Bld) [Ratio] 0.0 /100 WBC Normal [facility] Comment on above: Order Comment: Speci men Type: BLOOD SPECIMENOrdering Facility: [facility] Address: [address] [place] [address] Performed By: #### 5 7021-8 ####[facility] LABORATORYCLIA [id number] [place] [address] [place] Platelet mean volume (Bld) [Entitic vol] 9.8 fL Normal 9.0-12.7 [facility] Comment on above: Order Comment: Speci men Type: BLOOD SPECIMENOrdering Facility: [facility] Address: [address] [place] [place] [address] Performed By: #### 5 7021-8 ####QU[facility] LABORATORYCLIA [id number] [address] [place] Platelets (Bld) [#/Vol] 250 10*3/uL Normal 150-400 [facility] Comment on above: Order Comment: Speci men Type: BLOOD SPECIMENOrdering Facility: [facility] Address: [address] [place] [address] Performed By: #### 5 7021-8 ####QUIROZ LABORATORYCLIA [id number] [address] [place] RBC (Bld) [#/Vol] 4.11 10*6/uL Normal 3.90-5.20 [facility] Comment on above: Order Comment: Speci men Type: BLOOD SPECIMENOrdering Facility: [facility] Address: [address] [place] [address] Performed By: #### 5 7021-8 ####QUIROZ LABORATORYCLIA [id number] [place] [address] [place] WBC (Bld) [#/Vol] 9.87 10*3/uL Normal 3.70-11.00 [facility] Comment on above: Order Comment: Speci men Type: BLOOD SPECIMENOrdering Facility: [facility] Address: [address] [place] [address] [place] [address] Performed By: #### 5 7021-8 ####QUIROZ LABORATORYIA [id number] [place] [address] [place] CTA CHEST (NON GATED) W IVCO N PEon 10-18-2024 CTA CHEST (NON GATED) W IVCON PE * * *Final Report* * * DATE OF EXAM: Oct 18 2024 12:52PM [facility] - CTA CHEST (NON GATED) W [...] and scattered ill-defined centrilobular micronodules secondary to infectious/inflammator y bronchitis/bronchiolit is. Multifocal patchy groundglass opacities throughout both lungs [...] and scattered ill-defined centrilobular micronodules secondary to infectious/inflammator y bronchitis/bronchiolit is. Multifocal patchy groundglass opacities throughout both lungs most prominent in the LEFT upper lobe likely secondary to atypical/viral pneumonia. Clinical Safety Manager: MARCIN Transcribe Date/Time: Oct 18 2024 12:56P Dictated by : ROGELIO RIDER DO This examination was interpreted and the report reviewed and electronically signed by: ROGELIO RIDER DO on Oct 18 2024 1:14PM EST [id number] Normal [facility] Comprehensive metabolic 2000 panelon 10-18-2024 Albumin [Mass/Vol] 4.0 g/dL Normal 3.9-4.9 [facility] Comment on above: Order Comment: Speci men Type: BLOOD SPECIMENOrdering Facility: [facility] Address: [address] [place] [address] Performed By: #### 2 4323-8, [id number] ####[facility] LABORATORYCLIA [id number] [address] [place] ALP [Catalytic activity/Vol] 87 U/L Normal 34-123 [facility] Comment on above: Order Comment: Speci men Type: BLOOD SPECIMENOrdering Facility: [facility] Address: [address] [place] [address] Performed By: #### 2 4323-8, [id number] ####QUIROZ LABORATORYCLIA [id number] [place] [address] [place] ALT [Catalytic activity/Vol] 24 U/L Normal 7-38 [facility] Comment on above: Order Comment: Speci men Type: BLOOD SPECIMENOrdering Facility: [facility] Address: [address] [place] [address] Performed By: #### 2 4323-8, [id number] ####QUIROZ LABORATORYCLIA [id number] [place] [address] [place] Anion gap [Moles/Vol] 9 mmol/L Normal 8-15 [facility] Comment on above: Order Comment: Speci men Type: BLOOD SPECIMENOrdering Facility: [facility] Address: [address] [place] [address] Performed By: #### 2 4323-8, [id number] ####QUIROZ LABORATORYCLIA [id number] [address] STATES [facility] AST [Catalytic activity/Vol] 29 U/L Normal 13-35 [facility] Comment on above: Order Comment: Speci men Type: BLOOD SPECIMENOrdering Facility: [facility] Address: [address] [place] [address] Performed By: #### 2 4323-8, [id number] ####QUIROZ LABORATORYCLIA [id number] [address] [place] Bilirubin [Mass/Vol] 0.4 mg/dL Normal 0.2-1.3 [facility] Comment on above: Order Comment: Speci men Type: BLOOD SPECIMENOrdering Facility: [facility] Address: [address] [place] [address] Performed By: #### 2 4323-8, [id number] ####QUIROZ LABORATORYCLIA [id number] [address] Calcium [Mass/Vol] 9.2 mg/dL Normal 8.5-10.2 [facility] Comment on above: Order Comment: Speci men Type: BLOOD SPECIMENOrdering Facility: [facility] Address: [address] [place] [address] Performed By: #### 2 4323-8, [id number] ####QUIROZ LABORATORYCLIA [id number] [place] [address] [place] Chloride [Moles/Vol] 99 mmol/L Normal 98-107 [facility] Comment on above: Order Comment: Jayne almonte Type: BLOOD SPECIMENOrdering Facility: [facility] Address: [address] [place] [address] Performed By: #### 2 4323-8, [id number] ####QUIROZ LABORATORYCLIA [id number] [place] [address] [place] CO2 [Moles/Vol] 29 mmol/L Normal 22-30 [facility] Comment on above: Order Comment: Sethi men Type: BLOOD SPECIMENOrdering Facility: [facility] Address: [address] [place] [address] Performed By: #### 2 4323-8, [id number] ####QUIROZ LABORATORYCLIA [id number] [address] STATES OF [facility] Creatinine [Mass/Vol] 0.69 mg/dL Normal 0.58-0.96 [facility] Comment on above: Order Comment: Jayne almonte Type: BLOOD SPECIMENOrdering Facility: [facility] Address: [address] [place] [address] Performed By: #### 2 4323-8, [id number] ####QUIROZ LABORATORYCLIA [id number] [address] Creatinine and Glomerular filtration rate.predicted panel (S/P/Bld) 118 mL/min/1.73m??? Normal >=60 [facility] Comment on above: Order Comment: Jayne almonte Type: BLOOD SPECIMENOrdering Facility: [facility] Address: [address] [place] [address] Result Comment: Vidhi mated Glomerular Filtration Rate [...] actual GFR. Performed By: #### 2 4323-8, [id number] ####QUIROZ LABORATORYCLIA [id number] [place] [address] [place] Glucose [Mass/Vol] 92 mg/dL Normal 74-99 [facility] Comment on above: Order Comment: Jayne almonte Type: BLOOD SPECIMENOrdering Facility: [facility] Address: [address] [place] [address] Result Comment: The [place] [employer] (ADA) provides guidance for cutoff [...] Standards of Medical Care in Diabetes 2016, [place] [employer]. Diabetes Care. 2016.39(Suppl 1). Performed By: #### 2 4323-8, [id number] ####QUIR[facility] LABORATORYCLIA [id number] [place] [address] [place] Potassium [Moles/Vol] 3.4 mmol/L Low 3.7-5.1 [facility] Comment on above: Order Comment: Jayne almonte Type: BLOOD SPECIMENOrdering Facility: [facility] Address: [address] [place] [address] Performed By: #### 2 4323-8, [id number] ####QUIR[facility]Z LABORATORYCLIA [id number] [place] [id number] [place] Protein [Mass/Vol] 6.9 g/dL Normal 6.3-8.0 [facility] Comment on above: Order Comment: Jayne almonte Type: BLOOD SPECIMENOrdering Facility: [facility] Address: [address] [place], [place] [address] Performed By: #### 2 4323-8, [id number] ####QUIROZ LABORATORYCLIA [id number] [address] Sodium [Moles/Vol] 137 mmol/L Normal 136-144 [facility] Comment on above: Order Comment: Speci men Type: BLOOD SPECIMENOrdering Facility: [facility] Address: [address] [place], [place] [address] Performed By: #### 2 4323-8, [id number] ####QUIROZ LABORATORYCLIA [id number] [address] [place] Urea nitrogen [Mass/Vol] 14 mg/dL Normal 7-21 [facility] Comment on above: Order Comment: Speci men Type: BLOOD SPECIMENOrdering Facility: [facility] Address: [address] [place] [address] Performed By: #### 2 4323-8, [id number] ####QUIROZ LABORATORYCLIA [id number] [address] ECG COMPLETEon 10-18-2024 ECG COMPLETE Ventricular Rate : 8 7 BPM Atrial Rate : 87 BPM P-R Interval : 144 ms QRS Duration : 90 ms Q-T Interval : 356 ms QTC Calculation(Bazett) : 428 ms Calculated P [place] : 79 degrees Calculated R [place] : 82 degrees Calculated T [place] : 52 degrees NORMAL SINUS RHYTHM WITH SINUS ARRHYTHMIA NONSPECIFIC T WAVE ABNORMALITY ABNORMAL ECG NO STEMI Confirmed by Dmitry VAZQUEZ ERIKA ([id number]), assistant film editor ABEL KIRK ([id number]) on 10/19/2024 9:44:13 AM NAME : CARINE BARBA PID : [id number] : 1990 Gender : Female Race : ORD : [id number] Procedure Date : Oct 18 2024 11:44:25 Edit Date : Oct 19 2024 09:44:16 Diagnosis: NORMAL SINUS RHYTHM WITH SINUS ARRHYTHMIA NONSPECIFIC T WAVE ABNORMALITY ABNORMAL ECG NO STEMI Confirmed by Dmitry VAZQUEZ ERIKA ([id number]), assistant film editor ABEL KIRK ([id number]) on 10/19/2024 9:44:13 AM Test Reason : Chest Pain Location : 1 : ER ED Overread By : Dmitry VAZQUEZ ERIKA Edited By : ABEL KIRK Referred By : , Acquired by : TW, [facility] ED PROV NOTEon 10-18-2024 ED PROV NOTE HNO ID: [id number] Author: VIVIEN ABDI DO Service: Emergency Medicine [...] PM PAGER/CONTACT #: VIVIEN ABDI 10/18/24 1549 [facility] ED PROV NOTE HNO ID: [id number] Author: ANA VAZQUEZ MD Service: ? Author Type: Physician Type: ED Provider Notes Filed: 10/18/2024 13:44 Note Text: ED Provider Note Patient Name: Carine Barba : 1990 SERVICE DATE: 10/18/24 History Patient presents with: Asthma: pt was seen multiple times and was admitted ([facility])and left. and states they were not nice to her and she was getting worse and so she left and now states she still can't breath. 34-year-old female with history of asthma and DVT who presents with increasing shortness of breath, cough, and wheezing. Patient was seen at [facility] on the and overnight for the same. [...] pallor. Neurological: Negative for weakness and headaches. Psychiatric/Behavioral : Negative for agitation and behavioral problems. Physical [...] increasing shortness (more content not included)... Normal [facility] HCG Preg Ur Qlon 10-18-2024 HCG ( test) Ql (U) Negative Normal Negative [facility] Comment on above: Order Comment: Speci men Type: URINE SPECIMENOrdering Facility: [facility] Address: [address] [place] [address] Result Comment: This test is intended to aid in the early detection of . Very dilute urine samples, as indicated by a low specific gravity, may not contain auto claim representative levels of hCG. This test detects [...] for . Performed By: #### 2 106-3 ####[facility] LABORATORYCLIA [id number] [address] HIGH SENSITIVITY TROPONIN T (INITIAL)on 10-18-2024 Troponin T.cardiac High sensitivity method [Mass/Vol] <6 Normal <12 [facility] Comment on above: Order Comment: Speci men Type: BLOOD SPECIMENOrdering Facility: [facility] Address: [address] [place] [address] Performed By: #### 2 4323-8, [id number] ####QUIROZ LABORATORYCLIA [id number] [address] HIGH SENSITIVITY TROPONIN T (SECOND)on 10-18-2024 Troponin T.cardiac High sensitivity method [Mass/Vol] <6 Normal <12 [facility] Comment on above: Order Comment: Speci men Type: BLOOD SPECIMENOrdering Facility: [facility] Address: [address] [place] [address] Performed By: #### L [id number], 93243-1 ####QUIROZ LABORATORYCLIA [id number] [address] HISTORY PHYSICALon HISTORY PHYSICAL HNO ID: [id number] Author: SUNIL ROMERO MD Service: General Internal Medicine Author Type: Physician Type: H&P Filed: 10/18/2024 20:40 Note Text: [facility] STAFF PHYSICIAN NOTE OF [...] counseling and/or coordinating care for the patient. Gbag-ht-tcof time was 35 minutes SIGNATURE: Sunil Romero MD DATE of SERVICE: October 18, 2024 TIME of SERVICE: 8:38 PM History and Physical Examination SERVICE DATE: 10/18/2024 SERVICE TIME: 1745 PCP: No primary care provider on file. PRIMARY ATTENDING: Sunil Fish MD Subjective CHIEF COMPLAINT: Asthma (pt was seen multiple times and was admitted (roseline)and left. and states they were not nice to her and she was getting worse and so she left and now states she still can't breath. ) HPI: Patient is a 34-year-old female presenting from the ER for evaluation of for shortness of breath. Patient with a PMH of asthma and DVT. Patient noted to have recently been admitted to [facility] for similar concerns with breathing treatments and steroids. She states that her symptoms have progressively worsened since leaving [facility]. She reports ongoing shortness of breath with [...] and scattered ill-defined centrilobular micronodules secondary to infectious/inflammator y bronchitis/bronchiolit is. Multifocal patchy groundglass opacities throughout both lungs [...] dysuria, fr (more content not included)... Normal [facility] Legionella Ag Ur Qlon 2023 Legionella sp Ag Ql (U) Negative Normal Negative [facility] Comment on above: Order Comment: Jayne almonte Type: URINE SPECIMENOrdering Facility: [facility] Address: [address] [place] [address] Result Comment: Legi onella urinary antigen test is used as an aid in diagnosis of infection with Legionella pneumophila serogroup 1. It may be detected from a few days to several months after onset of signs and symptoms despite antibiotic therapy or disease resolution. A negative result cannot exclude Legionellosis. Clinical correlation is required. Performed By: #### 3 2781-7 ####[facility] LABCLIA [id number] [place] [address] [place] Procalcitonin SerPl-mCncon 1 12-19-2023 Procalcitonin [Mass/Vol] ng/mL Normal <0.09 [facility] Comment on above: Order Comment: Jayne almonte Type: BLOOD SPECIMENOrdering Facility: [facility] Address: [address] [place] [address] Result Comment: For a guided interpretation of test results, please visit the Change in Procalcitonin Calculator, [email or web address]. Performed By: #### L [id number], 79150-2 ####[facility] LABORATORYCLIA [id number] [place] [address] [place] STAPHYLOCOCCUS AUREUS AND MR SA SCREEN, PCR, NASALon 10-18-2024 S. aureus and MRSA panel DAJA+probe (Nose) Not detected Normal Not Detected [facility] Comment on above: Order Comment: Speci men Type: SWABOrdering Facility: [facility] Address: [address] [facility] [address] Performed By: #### S APCR ####[facility] LABCLIA [id number] [place] [address] [place] STREPTOCOCCUS PNEUMONIAE ANT IGEN URINEon 10-18-2024 STREPTOCOCCUS PNEUMONIAE ANTIGEN URINE STREP PNEUMO AG RESULT: Negative for Streptococcus pneumoniae antigen. Presumptive negative for pneumococcal pneumonia, suggesting no current or recent pneumococcal infection. Infection due to S.pneumoniae cannot be ruled out since the antigen present in the sample may be below the detection limit of the test. Normal [facility] Comment on above: Performed By: #### S PNAG ####[facility] LABCLIA [id number] [place] [address] [place] XR CHEST 1V [...] RIGHT bilateral infrahilar opacities suggestive of pneumonia. Clinical Safety Manager: MARCIN Transcribe Date/Time: Oct 18 2024 11:48A Dictated by : ROGELIO RIDER DO This examination was interpreted and the report reviewed and electronically signed by: ROGELIO RIDER DO on Oct 18 2024 11:49AM EST [id number] Normal [facility] CBC W/Diff, Automatedon 12-2 Absolute Neut Normal 2.0-7.7 [facility] Comment on above: Result Comment: PT D ISCHARGED Performed By: #### L 501.9100, L100.0100, L700.6800, L500.2500, L505.5000 #### [facility] Laboratory [address] [place], [address] HCT Normal 37-47 [facility] Comment on above: Result Comment: PT D ISCHARGED Performed By: #### L 501.9100, L100.0100, L700.6800, L500.2500, L505.5000 #### [facility] [address] [place], [address] HGB Normal 12.0-15.0 [facility] Comment on above: Result Comment: PT D ISCHARGED Performed By: #### L 501.9100, L100.0100, L700.6800, L500.2500, L505.5000 #### [facility] [address] [place], [address] MCH Normal 27.0-32.0 [facility] Comment on above: Result Comment: PT D ISCHARGED Performed By: #### L 501.9100, L100.0100, L700.6800, L500.2500, L505.5000 #### [facility] [address] [place], [address] MCHC Normal 32-36 [facility] Comment on above: Result Comment: PT D ISCHARGED Performed By: #### L 501.9100, L100.0100, L700.6800, L500.2500, L505.5000 #### [facility] [address] [place], [address] MCV Normal 81-99 [facility] Comment on above: Result Comment: PT D ISCHARGED Performed By: #### L 501.9100, L100.0100, L700.6800, L500.2500, L505.5000 #### [facility] [address] [place], [address] NEUT% Normal 47-70 [facility] Comment on above: Result Comment: PT D ISCHARGED Performed By: #### L 501.9100, L100.0100, L700.6800, L500.2500, L505.5000 #### [facility] [address] [place], [address] PLT Normal 150-450 [facility] Comment on above: Result Comment: PT D ISCHARGED Performed By: #### L 501.9100, L100.0100, L700.6800, L500.2500, L505.5000 #### [facility] [address] [place], [address] RBC Normal 4.2-5.4 [facility] Comment on above: Result Comment: PT D ISCHARGED Performed By: #### L 501.9100, L100.0100, L700.6800, L500.2500, L505.5000 #### [facility] [address] [place], [address] RDW CV Normal 11.6-14.6 [facility] Comment on above: Result Comment: PT D ISCHARGED Performed By: #### L 501.9100, L100.0100, L700.6800, L500.2500, L505.5000 #### [facility] [address] [place], [address] RDW SD Normal 35.1-43.9 [facility] Comment on above: Result Comment: PT D ISCHARGED Performed By: #### L 501.9100, L100.0100, L700.6800, L500.2500, L505.5000 #### [facility] [address] [place], [address] WBC Normal 4.4-11.0 [facility] Comment on above: Result Comment: PT D ISCHARGED Performed By: #### L 501.9100, L100.0100, L700.6800, L500.2500, L505.5000 #### [facility] [address] [place], [address] Comprehensive Metabolic Prof ilon 10-17-2024 ALB Normal 3.2-5.0 [facility] Comment on above: Result Comment: PT D ISCHARGED Performed By: #### L 501.9100, L100.0100, L700.6800, L500.2500, L505.5000 #### [facility] [address] [place], [address] ALK P Normal 45-117 [facility] Comment on above: Result Comment: PT D ISCHARGED Performed By: #### L 501.9100, L100.0100, L700.6800, L500.2500, L505.5000 #### [facility] [address] [place], [address] ALT Normal 13-56 [facility] Comment on above: Result Comment: PT D ISCHARGED Performed By: #### L 501.9100, L100.0100, L700.6800, L500.2500, L505.5000 #### [facility] [address] [place], [address] AST Normal 15-37 [facility] Comment on above: Result Comment: PT D ISCHARGED Performed By: #### L 501.9100, L100.0100, L700.6800, L500.2500, L505.5000 #### [facility] [address] [place], [address] BUN Normal 7-18 [facility] Comment on above: Result Comment: PT D ISCHARGED Performed By: #### L 501.9100, L100.0100, L700.6800, L500.2500, L505.5000 #### [facility] [address] [place], [address] BUN/CRE Normal 10-20 [facility] Comment on above: Result Comment: PT D ISCHARGED Performed By: #### L 501.9100, L100.0100, L700.6800, L500.2500, L505.5000 #### [facility] [address] [place], [address] CA,Total Normal 8.5-10.1 [facility] Comment on above: Result Comment: PT D ISCHARGED Performed By: #### L 501.9100, L100.0100, L700.6800, L500.2500, L505.5000 #### [facility] [address] [place], [address] CL Normal 98-107 [facility] Comment on above: Result Comment: PT D ISCHARGED Performed By: #### L 501.9100, L100.0100, L700.6800, L500.2500, L505.5000 #### [facility] [address] [place], [address] CO2 Normal 21.0-32.0 [facility] Comment on above: Result Comment: PT D ISCHARGED Performed By: #### L 501.9100, L100.0100, L700.6800, L500.2500, L505.5000 #### [facility] [address] [place], [address] CREAT,SERUM Normal 0.55-1.02 [facility] Comment on above: Result Comment: PT D ISCHARGED Performed By: #### L 501.9100, L100.0100, L700.6800, L500.2500, L505.5000 #### [facility] [address] [place], [address] EST GFR Normal >60 [facility] Comment on above: Result Comment: PT D ISCHARGED Performed By: #### L 501.9100, L100.0100, L700.6800, L500.2500, L505.5000 #### [facility] [address] [place], [address] EST GFR - AA Normal >60 [facility] Comment on above: Result Comment: PT D ISCHARGED Performed By: #### L 501.9100, L100.0100, L700.6800, L500.2500, L505.5000 #### [facility] [address] [place], [address] GAP Normal 5-15 [facility] Comment on above: Result Comment: PT D ISCHARGED Performed By: #### L 501.9100, L100.0100, L700.6800, L500.2500, L505.5000 #### [facility] [address] [place], [address] GLU Normal 74-106 [facility] Comment on above: Result Comment: PT D ISCHARGED Performed By: #### L 501.9100, L100.0100, L700.6800, L500.2500, L505.5000 #### [facility] [address] [place], [address] Potassium Normal 3.5-5.1 [facility] Comment on above: Result Comment: PT D ISCHARGED Performed By: #### L 501.9100, L100.0100, L700.6800, L500.2500, L505.5000 #### [facility] [address] [place], [address] T BILI Normal 0.20-1.00 [facility] Comment on above: Result Comment: PT D ISCHARGED Performed By: #### L 501.9100, L100.0100, L700.6800, L500.2500, L505.5000 #### [facility] [address] [place], [address] T PROT Normal 6.4-8.2 [facility] Comment on above: Result Comment: PT D ISCHARGED Performed By: #### L 501.9100, L100.0100, L700.6800, L500.2500, L505.5000 #### [facility] [address] [place], [address] Comprehensive Metabolic Profil Normal 136-145 [facility] Comment on above: Result Comment: PT D ISCHARGED Performed By: #### L 501.9100, L100.0100, L700.6800, L500.2500, L505.5000 #### [facility] Laboratory [address] [place], [address] 12 Lead EKGon 10-16-2024 12 Lead EKG [facility] Cardiovascular Services [address] [place] [address] 12 Lead EKG 10/16/24 0106 MR#: [id number] Acct: [id number] Name: CARINE BARBA Rep #: [id number] : 1990 34 From: Fly Love MD [...] Abnormal ECG Confirmed by FLY LOVE MD ([id number]), assistant film editor STEPH FAGAN ([id number]) on 10/18/2024 2:25:59 PM Referred By: TB Confirmed By: FLY LOVE MD 10/18/24 1426 Date Fly Love MD CC: Dr. Arjun Lagunas, DO; No Primary Care Physician Signed Normal [facility] Basic Metabolic Profile (BMP )on 10-16-2024 BUN/CRE 17.3 RATIO Normal 10-20 [facility] Comment on above: Performed By: #### L 501.9100, L100.0100, L700.6800, L500.2500, L505.5000 #### [facility] [address] [place], [address] CA,Total 9.2 mg/dL Normal 8.5-10.1 [facility] Comment on above: Performed By: #### L 501.9100, L100.0100, L700.6800, L500.2500, L505.5000 #### [facility] [address] [place], [address] Chloride [Moles/Vol] 105 mmol/L Normal 98-107 [facility] Comment on above: Performed By: #### L 501.9100, L100.0100, L700.6800, L500.2500, L505.5000 #### [facility] [address] [place], [address] CO2 [Moles/Vol] 27.0 mmol/L Normal 21.0-32.0 [facility] Comment on above: Performed By: #### L 501.9100, L100.0100, L700.6800, L500.2500, L505.5000 #### [facility] [address] [place], [address] Creatinine [Mass/Vol] 0.87 mg/dL Normal 0.55-1.02 [facility] Comment on above: Result Comment: The validity of the calculated GFR GFRAA in patients over 70 years has not been determined. Clinical correlation is essential. Performed By: #### L 501.9100, L100.0100, L700.6800, L500.2500, L505.5000 #### [facility] [address] [place], [address] ECRCL 98.33 ml/min Normal [facility] Comment on above: Performed By: #### L 501.9100, L100.0100, L700.6800, L500.2500, L505.5000 #### [facility] [address] [place], [address] EST GFR - AA 96 mL/min Normal >60 [facility] Comment on above: Result Comment: Afri can Gabonese GFR Calc Performed By: #### L 501.9100, L100.0100, L700.6800, L500.2500, L505.5000 #### [facility] [address] [place], [address] GAP 6 Normal 5-15 [facility] Comment on above: Performed By: #### L 501.9100, L100.0100, L700.6800, L500.2500, L505.5000 #### [facility] [address] [place], [address] GFR/1.73 sq M.predicted among non-blacks MDRD (S/P/Bld) [Vol rate/Area] 80 mL/min/{1.73_m2} Normal >60 [facility] Comment on above: Result Comment: Non- GFR Calc Performed By: #### L 501.9100, L100.0100, L700.6800, L500.2500, L505.5000 #### [facility] [address] [place], [address] Glucose [Mass/Vol] 122 mg/dL High 74-106 [facility] Comment on above: Result Comment: Fast ing Glucose result from 100 to 125 mg/dL suggests IMPAIRED HOMEOSTASIS per A.D.A. criteria. Performed By: #### L 501.9100, L100.0100, L700.6800, L500.2500, L505.5000 #### [facility] [address] [place], [address] Potassium [Moles/Vol] 3.8 mmol/L Normal 3.5-5.1 [facility] Comment on above: Performed By: #### L 501.9100, L100.0100, L700.6800, L500.2500, L505.5000 #### [facility] [address] [place], [address] Sodium [Moles/Vol] 138 mmol/L Normal 136-145 [facility] Comment on above: Performed By: #### L 501.9100, L100.0100, L700.6800, L500.2500, L505.5000 #### [facility] [address] [place], [address] Urea nitrogen [Mass/Vol] 15 mg/dL Normal 7-18 [facility] Comment on above: Performed By: #### L 501.9100, L100.0100, L700.6800, L500.2500, L505.5000 #### [facility] [address] [place], [address] BUN/CRE 13.3 RATIO Normal 10-20 [facility] Comment on above: Performed By: #### L 500.2500, L100.0100 #### [facility] [address] [place], [address] CA,Total 9.3 mg/dL Normal 8.5-10.1 [facility] Comment on above: Performed By: #### L 500.2500, L100.0100 #### [facility] [address] [place], [address] Chloride [Moles/Vol] 103 mmol/L Normal 98-107 [facility] Comment on above: Performed By: #### L 500.2500, L100.0100 #### [facility] [address] [place], [address] CO2 [Moles/Vol] 28.0 mmol/L Normal 21.0-32.0 [facility] Comment on above: Performed By: #### L 500.2500, L100.0100 #### [facility] [address] [place], [address] Creatinine [Mass/Vol] 0.98 mg/dL Normal 0.55-1.02 [facility] Comment on above: Result Comment: The validity of the calculated GFR GFRAA in patients over 70 years has not been determined. Clinical correlation is essential. Performed By: #### L 500.2500, L100.0100 #### [facility] [address] [place], [address] ECRCL 87.08 ml/min Normal [facility] Comment on above: Performed By: #### L 500.2500, L100.0100 #### [facility] [address] [place], [address] EST GFR - AA 84 mL/min Normal >60 [facility] Comment on above: Result Comment: Afri can Gabonese GFR Calc Performed By: #### L 500.2500, L100.0100 #### [facility] [address] [place], [address] GAP 7 Normal 5-15 [facility] Comment on above: Performed By: #### L 500.2500, L100.0100 #### [facility] [address] [place], [address] GFR/1.73 sq M.predicted among non-blacks MDRD (S/P/Bld) [Vol rate/Area] 69 mL/min/{1.73_m2} Normal >60 [facility] Comment on above: Result Comment: Non- GFR Calc Performed By: #### L 500.2500, L100.0100 #### [facility] [address] [place], [address] Glucose [Mass/Vol] 118 mg/dL High 74-106 [facility] Comment on above: Result Comment: Fast ing Glucose result from 100 to 125 mg/dL suggests IMPAIRED HOMEOSTASIS per A.D.A. criteria. Performed By: #### L 500.2500, L100.0100 #### [facility] [address] [place], [address] Potassium [Moles/Vol] 3.5 mmol/L Normal 3.5-5.1 [facility] Comment on above: Performed By: #### L 500.2500, L100.0100 #### [facility] [address] [place], [address] Sodium [Moles/Vol] 138 mmol/L Normal 136-145 [facility] Comment on above: Performed By: #### L 500.2500, L100.0100 #### [facility] [address] [place], [address] Urea nitrogen [Mass/Vol] 13 mg/dL Normal 7-18 [facility] Comment on above: Performed By: #### L 500.2500, L100.0100 #### [facility] [address] [place], [address] CBC W/Diff, Automatedon 12-2 Absolute Lymph 0.48 X10 3/uL Low 0.83-4.51 [facility] Comment on above: Performed By: #### L 501.9100, L100.0100, L700.6800, L500.2500, L505.5000 #### [facility] [address] [place], [address] Absolute Neut 10.6 X10 3/uL High 2.0-7.7 [facility] Comment on above: Performed By: #### L 501.9100, L100.0100, L700.6800, L500.2500, L505.5000 #### [facility] [address] [place], [address] Basophils/100 WBC (Bld) 0.1 % Normal 0-1 [facility] Comment on above: Performed By: #### L 501.9100, L100.0100, L700.6800, L500.2500, L505.5000 #### [facility] [address] [place], [address] Eosinophils/100 WBC (Bld) 0.0 % Normal 0-5 [facility] Comment on above: Performed By: #### L 501.9100, L100.0100, L700.6800, L500.2500, L505.5000 #### [facility] [address] [place], [address] Erythrocyte distribution width (RBC) [Ratio] 13.1 % Normal 11.6-14.6 [facility] Comment on above: Performed By: #### L 501.9100, L100.0100, L700.6800, L500.2500, L505.5000 #### [facility] [address] [place], [address] Hematocrit (Bld) [Volume fraction] 42.5 % Normal 37-47 [facility] Comment on above: Performed By: #### L 501.9100, L100.0100, L700.6800, L500.2500, L505.5000 #### [facility] [address] [place], [address] Hemoglobin (Bld) [Mass/Vol] 14.3 g/dL Normal 12.0-15.0 [facility] Comment on above: Performed By: #### L 501.9100, L100.0100, L700.6800, L500.2500, L505.5000 #### [facility] [address] [place], [address] IG% 0.400 Normal 0.0-0.9 [facility] Comment on above: Result Comment: IG% - Immature Granulocytes (promyelocytes, myelocytes and metamyelocytes) > 1% indicates that a LEFT SHIFT is Present. Performed By: #### L 501.9100, L100.0100, L700.6800, L500.2500, L505.5000 #### [facility] [address] [place], [address] Lymphocytes/100 WBC (Bld) 4.1 % Low 19-41 [facility] Comment on above: Performed By: #### L 501.9100, L100.0100, L700.6800, L500.2500, L505.5000 #### [facility] [address] [place], [address] MCH (RBC) [Entitic mass] 32.5 pg High 27.0-32.0 [facility] Comment on above: Performed By: #### L 501.9100, L100.0100, L700.6800, L500.2500, L505.5000 #### [facility] [address] [place], [address] MCHC (RBC) [Mass/Vol] 33.6 g/dL Normal 32-36 [facility] Comment on above: Performed By: #### L 501.9100, L100.0100, L700.6800, L500.2500, L505.5000 #### [facility] [address] [place], [address] MCV (RBC) [Entitic vol] 96.6 fL Normal 81-99 [facility] Comment on above: Performed By: #### L 501.9100, L100.0100, L700.6800, L500.2500, L505.5000 #### [facility] [address] [place], [address] Monocytes/100 WBC (Bld) 5.1 % Normal 0-10 [facility] Comment on above: Performed By: #### L 501.9100, L100.0100, L700.6800, L500.2500, L505.5000 #### [facility] [address] [place], [address] Neutrophils/100 WBC (Bld) 90.3 % High 47-70 [facility] Comment on above: Performed By: #### L 501.9100, L100.0100, L700.6800, L500.2500, L505.5000 #### [facility] [address] [place], [address] Nucleated RBC (Bld) [#/Vol] 0 10*3/uL Normal 0-5 [facility] Comment on above: Performed By: #### L 501.9100, L100.0100, L700.6800, L500.2500, L505.5000 #### [facility] [address] [place], [address] Platelet mean volume (Bld) [Entitic vol] 9.8 fL Normal 6.2-12.0 [facility] Comment on above: Performed By: #### L 501.9100, L100.0100, L700.6800, L500.2500, L505.5000 #### [facility] [address] [place], [address] Platelets (Bld) [#/Vol] 252 10*3/uL Normal 150-450 [facility] Comment on above: Performed By: #### L 501.9100, L100.0100, L700.6800, L500.2500, L505.5000 #### [facility] [address] [place], [address] RBC (Bld) [#/Vol] 4.40 10*6/uL Normal 4.2-5.4 [facility] Comment on above: Performed By: #### L 501.9100, L100.0100, L700.6800, L500.2500, L505.5000 #### [facility] [address] [place], [address] RDW SD 46.8 fl High 35.1-43.9 [facility] Comment on above: Performed By: #### L 501.9100, L100.0100, L700.6800, L500.2500, L505.5000 #### [facility] [address] [place], [address] WBC (Bld) [#/Vol] 11.8 10*3/uL High 4.4-11.0 [facility] Comment on above: Performed By: #### L 501.9100, L100.0100, L700.6800, L500.2500, L505.5000 #### [facility] [address] [place], [address] Absolute Lymph 1.01 X10 3/uL Normal 0.83-4.51 [facility] Comment on above: Performed By: #### L 500.2500, L100.0100 #### [facility] [address] [place], [address] Absolute Neut 8.7 X10 3/uL High 2.0-7.7 [facility] Comment on above: Performed By: #### L 500.2500, L100.0100 #### [facility] [address] [place], [address] Basophils/100 WBC (Bld) 0.2 % Normal 0-1 [facility] Comment on above: Performed By: #### L 500.2500, L100.0100 #### [facility] [address] [place], [address] Eosinophils/100 WBC (Bld) 0.0 % Normal 0-5 [facility] Comment on above: Performed By: #### L 500.2500, L100.0100 #### [facility] [address] [place], [address] Erythrocyte distribution width (RBC) [Ratio] 13.0 % Normal 11.6-14.6 [facility] Comment on above: Performed By: #### L 500.2500, L100.0100 #### [facility] [address] [place], [address] Hematocrit (Bld) [Volume fraction] 41.1 % Normal 37-47 [facility] Comment on above: Performed By: #### L 500.2500, L100.0100 #### [facility] [address] [place], [address] Hemoglobin (Bld) [Mass/Vol] 13.9 g/dL Normal 12.0-15.0 [facility] Comment on above: Performed By: #### L 500.2500, L100.0100 #### [facility] [address] [place], [address] IG% 0.500 Normal 0.0-0.9 [facility] Comment on above: Result Comment: IG% - Immature Granulocytes (promyelocytes, myelocytes and metamyelocytes) > 1% indicates that a LEFT SHIFT is Present. Performed By: #### L 500.2500, L100.0100 #### [facility] [address] [place], [address] Lymphocytes/100 WBC (Bld) 9.8 % Low 19-41 [facility] Comment on above: Performed By: #### L 500.2500, L100.0100 #### [facility] [address] [place], [address] MCH (RBC) [Entitic mass] 32.3 pg High 27.0-32.0 [facility] Comment on above: Performed By: #### L 500.2500, L100.0100 #### [facility] [address] [place], [address] MCHC (RBC) [Mass/Vol] 33.8 g/dL Normal 32-36 [facility] Comment on above: Performed By: #### L 500.2500, L100.0100 #### [facility] [address] [place], [address] MCV (RBC) [Entitic vol] 95.6 fL Normal 81-99 [facility] Comment on above: Performed By: #### L 500.2500, L100.0100 #### [facility] [address] [place], [address] Monocytes/100 WBC (Bld) 5.8 % Normal 0-10 [facility] Comment on above: Performed By: #### L 500.2500, L100.0100 #### [facility] [address] [place], [address] Neutrophils/100 WBC (Bld) 83.7 % High 47-70 [facility] Comment on above: Performed By: #### L 500.2500, L100.0100 #### [facility] [address] [place], [address] Nucleated RBC (Bld) [#/Vol] 0 10*3/uL Normal 0-5 [facility] Comment on above: Performed By: #### L 500.2500, L100.0100 #### [facility] [address] [place], [address] Platelet mean volume (Bld) [Entitic vol] 9.7 fL Normal 6.2-12.0 [facility] Comment on above: Performed By: #### L 500.2500, L100.0100 #### [facility] [address] [place], [address] Platelets (Bld) [#/Vol] 245 10*3/uL Normal 150-450 [facility] Comment on above: Performed By: #### L 500.2500, L100.0100 #### [facility] [address] [place], [address] RBC (Bld) [#/Vol] 4.30 10*6/uL Normal 4.2-5.4 [facility] Comment on above: Performed By: #### L 500.2500, L100.0100 #### [facility] [address] [place], [address] RDW SD 45.5 fl High 35.1-43.9 [facility] Comment on above: Performed By: #### L 500.2500, L100.0100 #### [facility] [address] [place], [address] WBC (Bld) [#/Vol] 10.3 10*3/uL Normal 4.4-11.0 [facility] Comment on above: Performed By: #### L 500.2500, L100.0100 #### [facility] [address] [place], [address] Chest PA and Lateralon 10-16 Chest PA and Lateral [facility] Imaging Services [address] [place] [address] Chest PA and Lateral MR#: [id number] Acct: [id number] Name: CARINE BARBA Rep #: [id number] : 1990 F 34 From: Magdiel field MD PCP: Care Physician,No Primary Status: ADM IN Study: Chest PA and Lateral Date of Exam: 10/16/24 Exam# [id number] Ordering Dr: Fletcher Marie DO [id number] INDICATION: Shortness of breath EXAMINATION/TECHNIQUE: X-RAY - XR Chest 2 Views COMPARISON: 10/16/2024. FINDINGS: The lungs are clear. The cardiomediastinal silhouette is unremarkable. Stable surgical changes of the left clavicle. No pleural effusion or pneumothorax. No acute osseous abnormalities. RAD/Chest PA and Lateral IMPRESSION: No acute radiographic abnormalities. Electronically Signed: Magdiel Chadwick MD at 23:10 EST , CC: Dr. Fletcher Marie DO; No Primary Care Physician Clinical Safety Manager: Signed Normal [facility] Chest PA and Lateral [facility] Imaging Services [address] [place] [id number] Chest PA and Lateral MR#: [id number] Acct: [id number] Name: CARINE BARBA Rep #: [id number] : 1990 F 34 From: Jason Dumont MD PCP: Care Physician,No Primary Status: REG ER Study: Chest PA and Lateral Date of Exam: 10/16/24 Exam# [id number] Ordering Dr: Arjun Lagunas [place] [id number] EXAM: XR CHEST, 2 VIEWS CLINICAL INDICATION: [...] Arjun Lagunas, DO; No Primary Care Physician Clinical Safety Manager: Signed Normal [facility] Emergency Department Summary on 10-16-2024 Emergency Department Summary [facility] Medical Records Department [address] [place] [address] Emergency Department Summary 10/16/24 MR#: [id number] Acct: [id number] Name: CARINE BARBA Rep #: [id number] : 1990 34 From: Fletcher Marie DO [...] intact Psych: Cooperative, appropriate mood and affect PFSH PFSH Medical History Asthma Home Medications ???Medication ???Instructions [...] endorsing impro (more content not included)... Normal [facility] Emergency Department Summary [facility] Medical Records Department [address] [place] [address] Emergency Department Summary 10/16/24 MR#: [id number] Acct: [id number] Name: CARINE BARBA Rep #: [id number] : 1990 34 From: Arjun Lagunas DO [...] evaluation management. Patient denies any recent travels. [facility] Medical History Asthma Home Medications ???Medication ???Instructions ???Recorded ???Last Taken ???Type albuterol sulfate 90 mcg/actuation 1 - 2 puff inhalation Q4H PRN PRN 06/25/19 09/19/20 Rx aerosol inhaler Wheezing ##1 hydroxyzine HCl [...] hydrate (From Allergy Swelling Verified 10/16/24 00:26 [place]) Social History Smoking Status: Current some day [...] following commands knew that she was at [facility] years 2023 Skin: Warm, dry, intact Const [...] states that (more content not included)... Normal [facility] H AND P Exam - [facility] 10-16-2024 H&P Exam - Hospitalist [facility] Medical Records Department [address] [place] [address] H P Exam - Hospitalist 10/16/24 2217 MR#: [id number] Acct: [id number] Name: CARINE BARBA Rep #: [id number] : 1990 34 From: Nimo Corral DO PCP: Care Physician,No Primary Status:DIS IN Location: [facility] [id number] HPI - General General Date of Admission: [...] an albuterol inhaler who now re-presents to [facility] ER complaining of continued shortness of breath, [...] is a same day admission and discharge. [facility] Medical History Asthma Home Medications ???Medication [...] 21:28 Tem (more content not included)... Normal [facility] Absolute lymphocyte counton 03-23-2022 Lymphocytes Auto (Unsp spec) [#/Vol] 1.63 10*3/uL 0.83-4.51 [facility] Work Phone: Basophil percentageon 2021 Basophils/100 WBC (Bld) 0.2 % 0-1 [facility] Work Phone: Chloride [Moles/Vol] 104 mmol/L 98-107 [facility] Work Phone: Eosinophils/100 WBC (Bld) 0.1 % 0-5 [facility] Work Phone: Glucose [Mass/Vol] 156 mg/dL 74-106 [facility] Work Phone: Comment on above: Fasting Glucose resu lt greater than or equal to 126 mg/dL suggests DIABETES MELLITUS per A.D.A. criteria. Neutrophils (Bld) [#/Vol] 6.8 10*3/uL 2.0-7.7 [facility] Work Phone: Neutrophils/100 WBC (Bld) 76.2 % 47-70 [facility] Work Phone: Potassium [Moles/Vol] 3.2 mmol/L 3.5-5.1 [facility] Work Phone: Sodium [Moles/Vol] 136 mmol/L 136-145 [facility] Work Phone: WBC (Bld) [#/Vol] 9.0 10*3/uL 4.4-11.0 [facility] Work Phone: Blood erythrocytes count (nu mber/volume)on 03-23-2022 RBC (Bld) [#/Vol] 4.48 10*6/uL 4.2-5.4 [facility] Work Phone: Blood hemoglobin measurement (mass/volume)on 03-23-2022 Hemoglobin (Bld) [Mass/Vol] 14.3 g/dL 12.0-15.0 [facility] Work Phone: Blood lymphocytes/100 leukoc yteson 03-23-2022 Lymphocytes/100 WBC (Bld) 18.2 % 19-41 [facility] Work Phone: [phone] Blood monocytes/100 leukocyt eson 03-23-2022 Monocytes/100 WBC (Bld) 5.0 % 0-10 [facility] Work Phone: Blood platelet mean volumeon 03-23-2022 Platelet mean volume (Bld) [Entitic vol] 10.4 fL 6.2-12.0 [facility] Work Phone: Determination of erythrocyte mean corpuscular volume (MCV)on 03-23-2022 MCV (RBC) [Entitic vol] 93.8 fL 81-99 [facility] Work Phone: Hematocrit Auto (Bld) [Volum e fraction]on 03-23-2022 Hematocrit (Bld) [Volume fraction] 42.0 % 37-47 [facility] Work Phone: Laboratory - Chemistry and C hemistry - challengeon 03-23-2022 CO2 [Moles/Vol] 26.0 mmol/L 21.0-32.0 [facility] Work Phone: Urea nitrogen/Creatinine [Mass ratio] 11.5 mg/mg 10-20 [facility] Work Phone: Laboratory - Hematology and Cell countson 03-23-2022 Erythrocyte distribution width (RBC) [Entitic vol] 43.4 fL 35.1-43.9 [facility] Work Phone: Erythrocyte distribution width (RBC) [Ratio] 12.6 % 11.6-14.6 [facility] Work Phone: Immature granulocytes/100 WBC (Bld) 0.300 % 0.0-0.9 [facility] Work Phone: Comment on above: IG% - Immature Granu locytes (promyelocytes, myelocytes and metamyelocytes) > 1% indicates that a LEFT SHIFT is Present. MCH (RBC) [Entitic mass] 31.9 pg 27.0-32.0 [facility] Work Phone: Nucleated RBC/100 WBC (Bld) [Ratio] 0 % 0-5 [facility] Work Phone: MCHC Auto (RBC) [Mass/Vol]on 03-23-2022 MCHC (RBC) [Mass/Vol] 34.0 g/dL 32-36 [facility] Work [facility]: No Panel Informationon 03-23 D-Dimer Quantitative (PE/DVT) < 0.27 FEU/ug/m 0.27-0.49 [facility] Work Phone: Comment on above: NORMAL D-Dimer level (<0.50) indicates no DVT or PE. Estimated Creatinine Clearance Calc 101.62 ml/min [facility] Work Phone: Estimated GFR (MDRD) Amer 111 mL/min >60 [facility] Work Phone: Comment on above: GFR Calc Estimated GFR (MDRD) Non-Af Amer 91 mL/min >60 [facility] Work Phone: Comment on above: Non- GFR Calc Troponin I High Sensitivity < 3 pg/mL 3.0-54.0 [facility] Work Phone: Comment on above: Please Note: New Carmina t Units and Gender Specific Reference Ranges. For more information see Policy Stat Procedure [place] High Sensitivity Troponin (TNIH) and attachments. Platelets bldon 03-23-2022 Platelets (Bld) [#/Vol] 256 10*3/uL 150-450 [facility] Work Phone: Serum or plasma calcium emily urement (mass/volume)on 03-23-2022 Calcium [Mass/Vol] 9.1 mg/dL 8.5-10.1 [facility] Work Phone: Serum or plasma creatinine m easurement (mass/volume)on 03-23-2022 Creatinine [Mass/Vol] 0.78 mg/dL 0.55-1.02 [facility] Work Phone: Comment on above: The validity of the calculated GFR & GFRAA in patients over 70 years has not been determined. Clinical correlation is essential. Serum or plasma urea nitroge n measurement (mass/volume)on 03-23-2022 Urea nitrogen [Mass/Vol] 9 mg/dL 7-18 [facility] Work Phone: Thin prep Papanicolaou smear with manual screeningon 03-23-2022 Thin prep Papanicolaou smear with manual screening 6 5-15 [facility] Work Phone: Basic Metabolic Panelon - Anion gap [Moles/Vol] 9 Normal [facility] Comment on above: Performed By: #### H RADHA, BMP3 #### [facility] [address] [place] [address] Calcium [Mass/Vol] 9.0 mg/dL Normal 8.4-10.4 [facility] Comment on above: Performed By: #### H RADHA, BMP3 #### [facility] [address] [place] [address] CO2 [Moles/Vol] 25 mmol/L Normal 22-30 [facility] Comment on above: Performed By: #### H RADHA, BMP3 #### [facility] [address] [place] [address] Creatinine [Mass/Vol] 0.70 mg/dL Normal 0.52-1.25 [facility] Comment on above: Performed By: #### H RADHA, BMP3 #### [facility] [address] [place] [address] GFR/1.73 sq M predicted among blacks MDRD (S/P/Bld) [Vol rate/Area] mL/min/{1.73_m2} Normal >60 [facility] Comment on above: Performed By: #### H RADHA, BMP3 #### [facility] [address] [place] [address] GFR/1.73 sq M predicted among non-blacks MDRD (S/P/Bld) [Vol rate/Area] mL/min/{1.73_m2} Normal >60 [facility] Comment on above: Result Comment: KDIG [...] Performed By: #### H RADHA BMP3 #### [facility] [address] [place] [address] Glucose [Mass/Vol] 133 mg/dL High 70-100 [facility] Comment on above: Performed By: #### H RADHA BMP3 #### [facility] [address] [place] [address] Urea nitrogen [Mass/Vol] 11 mg/dL Normal 7-20 [facility] Comment on above: Performed By: #### H RADHA BMP3 #### [facility] [address] [place] [address] Chloride [Moles/Vol] 104 mmol/L Normal 98-107 [facility] Comment on above: Performed By: #### H RADHA BMP3 #### [facility] [address] [place] [address] Potassium [Moles/Vol] 4.1 mmol/L Normal 3.5-5.1 [facility] Comment on above: Performed By: #### H RADHA BMP3 #### [facility] [address] [place] [address] Sodium [Moles/Vol] 138 mmol/L Normal 135-145 [facility] Comment on above: Performed By: #### H RADHA BMP3 #### [facility] [address] [place] [address] Anion gap [Moles/Vol] 9 mmol/L [facility], [place] Calcium [Mass/Vol] 9.0 mg/dL 8.4 - 10. 4 mg/dL [facility], [place] Chloride [Moles/Vol] 104 mmol/L 98 - 10 7 mmol/L [facility] [place] CO2 [Moles/Vol] 25 mmol/L 22 - 30 mmol/L [place] Creatinine [Mass/Vol] 0.7 mg/dL 0.52 - 1.25 mg/dL [place] EGFR IF NonAfrican Gabonese >90.0 >60 mL/min [place] Comment on above: KDIGO guidelines pro [...] MDRD (S/P/Bld) [Vol rate/Area] mL/min/{1.73_m2} >60 mL/min [place] Glucose [Mass/Vol] 133 mg/dL High 70 - 100 mg/dL [place] Interpretation and review of laboratory results Abnormal [place] Potassium [Moles/Vol] 4.1 mmol/L 3.5 - 5.1 mmol/L [place] Sodium [Moles/Vol] 138 mmol/L 135 - 145 mmol/L [place] Urea nitrogen [Mass/Vol] 11 mg/dL 7 - 20 mg/dL [place] Test Performed by [facility] [employer] [address]. , [address] D-Dimer, Innovanceon 07-05- 020 D-Dimer, Innovance 0.32 mg/L Normal <0.19-0.50 [facility] Comment on above: Result Comment: Inno singleton D-Dimer values of <0.50 mg/L FEU can be used in combination with a pre-test probability model (e.g. Well's) to exclude pulmonary embolism (PE) disease, as well as an aid in the diagnosis of deep vein thrombosis (DVT). Performed By: #### H EMD, BMP3 #### [facility] [address] [place] [address] D-Dimer, Quantitativeon 06-24 D-Dimer, Quant 0.32 mg/L <0.19 - 0.50 [place] Comment on above: Innovance D-Dimer va lues of <0.50 mg/L FEU can be used in combination with a pre-test probability model (e.g. Well's) to exclude pulmonary embolism (PE) disease, as well as an aid in the diagnosis of deep vein thrombosis (DVT). Test Performed by [facility], [address] , [place], [place] [address] [place] Hemogram (CBC) w/Auto Diffon 07-05-2020 Absolute Baso # 0.0 10*3/uL 0 - 0.2 10*3/uL [place] Absolute Neut # 5.2 10*3/uL 1.8 - 7 10*3/uL [place] Basophils/100 WBC (Bld) 0.5 % 0 - 2 % [place] Eosinophils (Bld) [#/Vol] 0.3 10*3/uL 0 - 0.5 10*3/uL [place] Eosinophils/100 WBC (Bld) 4.6 % 1 - 6 % [place] Erythrocyte distribution width (RBC) [Ratio] 13.7 % 11.5 - 14.5 % [place] Granulocytes/100 WBC (Bld) 70.3 % 40 - 80 % [place] Hematocrit (Bld) [Volume fraction] 40.1 % 35 - 47 % [place] Hemoglobin (Bld) [Mass/Vol] 13.8 g/dL 11.7 - 16 g/dL [place] Interpretation and review of laboratory results Abnormal [place] Lymphocytes (Bld) [#/Vol] 1.4 10*3/uL 1 - 4.3 10*3/uL [place] Lymphocytes/100 WBC (Bld) 18.6 % Low 20 - 40 % [place] MCH (RBC) [Entitic mass] 32.7 pg 26 - 34 pg [place] MCHC (RBC) [Mass/Vol] 34.4 % 32 - 36 % [place] MCV (RBC) [Entitic vol] 95.1 fL 79 - 98 fL [place] Monocytes (Bld) [#/Vol] 0.4 10*3/uL 0 - 0.8 10*3/uL [place] Monocytes/100 WBC (Bld) 6.0 % 2 - 10 % [place] Platelet mean volume (Bld) [Entitic vol] 8.4 fL 7.4 - 10.4 fL [place] Platelets (Bld) [#/Vol] 201 10*3/uL 140 - 440 10*3/uL [place] RBC (Bld) [#/Vol] 4.21 10*6/uL 3.8 - 5.2 10*6/uL [place] WBC (Bld) [#/Vol] 7.4 10*3/uL 3.6 - 10.7 10*3/uL [place] Test Performed by [facility], [address] [place], [place] [id number] [place] [address] Hemogram w/ Autodiffon 07-05 Abs Baso Cnt 0.0 10*3/uL Normal 0.0-0.2 [facility] Comment on above: Performed By: #### H EMDMeagan, BMP3 #### [facility] [address] [place] [address] Abs Neutrophile Cnt 5.2 10*3/uL Normal 1.8-7.0 [facility] Comment on above: Performed By: #### H EMDF, BMP3 #### [facility] [address] [place] [address] Basophils/100 WBC (Bld) 0.5 % Normal 0.0-2.0 [facility] Comment on above: Performed By: #### H EMDF, BMP3 #### [facility] [address] [place] [address] Eosinophils (Bld) [#/Vol] 0.3 10*3/uL Normal 0.0-0.5 [facility] Comment on above: Performed By: #### H EMDF, BMP3 #### [facility] [address] [place] [address] Eosinophils/100 WBC (Bld) 4.6 % Normal 1.0-6.0 [facility] Comment on above: Performed By: #### H EMDF, BMP3 #### [facility] [address] [place] [address] Erythrocyte distribution width (RBC) [Ratio] 13.7 % Normal 11.5-14.5 [facility] Comment on above: Performed By: #### H EMDF, BMP3 #### [facility] [address] [place] [address] Granulocytes/100 WBC (Bld) 70.3 % Normal 40.0-80.0 [facility] Comment on above: Performed By: #### H EMDF, BMP3 #### [facility] [address] [place] [address] Hematocrit (Bld) [Volume fraction] 40.1 % Normal 35.0-47.0 [facility] Comment on above: Performed By: #### H EMDF, BMP3 #### [facility] [address] [place] [address] Hemoglobin (Bld) [Mass/Vol] 13.8 g/dL Normal 11.7-16.0 [facility] Comment on above: Performed By: #### H EMDF, BMP3 #### [facility] [address] [place] [address] Lymphocytes (Bld) [#/Vol] 1.4 10*3/uL Normal 1.0-4.3 [facility] Comment on above: Performed By: #### H EMDF, BMP3 #### [facility] [address] [place] [address] Lymphocytes/100 WBC (Bld) 18.6 % Low 20.0-40.0 [facility] Comment on above: Performed By: #### H RADHA BMP3 #### [facility] [address] [place] [address] MCH (RBC) [Entitic mass] 32.7 pg Normal 26.0-34.0 [facility] Comment on above: Performed By: #### H RADHA BMP3 #### [facility] [address] [place] [address] MCHC (RBC) [Mass/Vol] 34.4 % Normal 32.0-36.0 [facility] Comment on above: Performed By: #### H RADHA BMP3 #### [facility] [address] [place] [address] MCV (RBC) [Entitic vol] 95.1 fL Normal 79.0-98.0 [facility] Comment on above: Performed By: #### H RADHA BMP3 #### [facility] [address] [place] [address] Monocytes (Bld) [#/Vol] 0.4 10*3/uL Normal 0.0-0.8 [facility] Comment on above: Performed By: #### Aidan GARCIA BMP3 #### [facility] [address] [place] [address] Monocytes/100 WBC (Bld) 6.0 % Normal 2.0-10.0 [facility] Comment on above: Performed By: #### H RADHA BMP3 #### [facility] [address] [place] [address] Platelet mean volume (Bld) [Entitic vol] 8.4 fL Normal 7.4-10.4 [facility] Comment on above: Performed By: #### H RADHA BMP3 #### [facility] [address] [place] [address] Platelets (Bld) [#/Vol] 201 10*3/uL Normal 140-440 [facility] Comment on above: Performed By: #### H RADHA BMP3 #### [facility] [address] [place] [address] RBC (Bld) [#/Vol] 4.21 10*6/uL Normal 3.80-5.20 [facility] Comment on above: Performed By: #### H EMDF, BMP3 #### [facility] [address] [place] [address] WBC (Bld) [#/Vol] 7.4 10*3/uL Normal 3.6-10.7 [facility] Comment on above: Performed By: #### H EMDF, BMP3 #### [facility] [address] [place] [address] Troponin Ion 07-05-2020 Troponin I.cardiac [Mass/Vol] ng/mL Normal 0.000-0.034 [facility] Comment on above: Result Comment: . Performed By: #### H EMDF, BMP3 #### [facility] [address] [place] [address] Troponin x1on 07-05-2020 Troponin I.cardiac [Mass/Vol] ng/mL 0 - 0.034 ng/mL [place] Comment on above: . Test Performed by [facility], [address] , [place], [place] [id number] [place] [address] Basic Metabolic Panelon 05-24 Anion gap [Moles/Vol] 10 Normal [facility] Comment on above: Performed By: #### H EMDF, BMP3, DDI2 #### [facility] [address] [place] [address] Calcium [Mass/Vol] 9.2 mg/dL Normal 8.4-10.4 [facility] Comment on above: Performed By: #### H EMDF, BMP3, DDI2 #### [facility] [address] [place] [address] CO2 [Moles/Vol] 25 mmol/L Normal 22-30 [facility] Comment on above: Performed By: #### H EMDF, BMP3, DDI2 #### [facility] [address] [place] [address] Creatinine [Mass/Vol] 0.69 mg/dL Normal 0.52-1.25 [facility] Comment on above: Performed By: #### H OLLIE GARCIA3, DDI2 #### [facility] [address] [place] [address] GFR/1.73 sq M predicted among blacks MDRD (S/P/Bld) [Vol rate/Area] mL/min/{1.73_m2} Normal >60 [facility] Comment on above: Performed By: #### H RADHA BMP3, DDI2 #### [facility] [address] [place] [address] GFR/1.73 sq M predicted among non-blacks MDRD (S/P/Bld) [Vol rate/Area] mL/min/{1.73_m2} Normal >60 [facility] Comment on above: Result Comment: KDIG [...] tubular creatinine secretion. Performed By: #### H EMDMeagan BMP3, DDI2 #### [facility] [address] [place] [address] Glucose [Mass/Vol] 99 mg/dL Normal 70-100 [facility] Comment on above: Performed By: #### H RADHA BMP3, DDI2 #### [facility] [address] [place] [address] Urea nitrogen [Mass/Vol] 10 mg/dL Normal 7-20 [facility] Comment on above: Performed By: #### H RADHA BMP3, DDI2 #### [facility] [address] [place] [address] Chloride [Moles/Vol] 104 mmol/L Normal 98-107 [facility] Comment on above: Performed By: #### H EMDF, BMP3, DDI2 #### [facility] [address] [place] [address] Potassium [Moles/Vol] 3.9 mmol/L Normal 3.5-5.1 [facility] Comment on above: Performed By: #### H EMDF, BMP3, DDI2 #### [facility] [address] [place] [address] Sodium [Moles/Vol] 139 mmol/L Normal 135-145 [facility] Comment on above: Performed By: #### H EMDF, BMP3, DDI2 #### [facility] [address] [place] [address] Anion gap [Moles/Vol] 10 mmol/L [place] Calcium [Mass/Vol] 9.2 mg/dL 8.4 - 10. 4 mg/dL [place] Chloride [Moles/Vol] 104 mmol/L 98 - 10 7 mmol/L [place] CO2 [Moles/Vol] 25 mmol/L 22 - 30 mmol/L [place] Creatinine [Mass/Vol] 0.69 mg/dL 0.52 - 1.25 mg/dL [place] EGFR IF NonAfrican Gabonese >90.0 >60 mL/min [place] Comment on above: KDIGO guidelines pro [...] MDRD (S/P/Bld) [Vol rate/Area] mL/min/{1.73_m2} >60 mL/min [place] Glucose [Mass/Vol] 99 mg/dL 70 - 100 mg/dL [place] Potassium [Moles/Vol] 3.9 mmol/L 3.5 - 5.1 mmol/L [place] Sodium [Moles/Vol] 139 mmol/L 135 - 145 mmol/L [place] Urea nitrogen [Mass/Vol] 10 mg/dL 7 - 20 mg/dL [place] Test [facility], [address] [place] [address] CR Chest PA/LATon 06-08-2020 CR Chest PA/LAT Patient Name: CARINE BARBA Diagnostic Radiology Exam Date/Time 06/08/2020 03:45:52 EDT Exam CR Chest PA/LAT Ordering Physician MD JIM, [facility] Accession Number [id number] CPT4 Codes 99137 () Reason For Exam sob Report CHEST [...] Transcribed Date and Time: 06/08/2020 4:14 Normal [facility] D-Dimer, Innovanceon 08-16-2 020 D-Dimer, Innovance 0.32 mg/L Normal <0.19-0.50 [facility] Comment on above: Result Comment: Inno singleton D-Dimer values of <0.50 mg/L FEU can be used in combination with a pre-test probability model (e.g. Well's) to exclude pulmonary embolism (PE) disease, as well as an aid in the diagnosis of deep vein thrombosis (DVT). Performed By: #### H EMDF, BMP3, DDI2 #### [facility] [address] [place] [address] D-Dimer, Quantitativeon 05-24 D-Dimer, Quant 0.32 mg/L <0.19 - 0.50 [place] Comment on above: [employer] D-Dimer va lues of <0.50 mg/L FEU can be used in combination with a pre-test probability model (e.g. Well's) to exclude pulmonary embolism (PE) disease, as well as an aid in the diagnosis of deep vein thrombosis (DVT). Test Performed by [facility], [address] , [place], [place] [address] [place] Hemogram (CBC) w/Auto Diffon 06-08-2020 Absolute Baso # 0.0 10*3/uL 0 - 0.2 10*3/uL [place] Absolute Neut # 4.4 10*3/uL 1.8 - 7 10*3/uL [place] Basophils/100 WBC (Bld) 0.5 % 0 - 2 % [place] Eosinophils (Bld) [#/Vol] 0.6 10*3/uL High 0 - 0.5 10*3/uL [place] Eosinophils/100 WBC (Bld) 7.6 % High 1 - 6 % [place] Erythrocyte distribution width (RBC) [Ratio] 14.0 % 11.5 - 14.5 % [place] Granulocytes/100 WBC (Bld) 57.2 % 40 - 80 % [place] Hematocrit (Bld) [Volume fraction] 40.4 % 35 - 47 % [place] Hemoglobin (Bld) [Mass/Vol] 13.8 g/dL 11.7 - 16 g/dL [place] Interpretation and review of laboratory results Abnormal [place] Lymphocytes (Bld) [#/Vol] 2.2 10*3/uL 1 - 4.3 10*3/uL [place] Lymphocytes/100 WBC (Bld) 28.3 % 20 - 40 % [place] MCH (RBC) [Entitic mass] 32.7 pg 26 - 34 pg [place] MCHC (RBC) [Mass/Vol] 34.2 % 32 - 36 % [place] MCV (RBC) [Entitic vol] 95.6 fL 79 - 98 fL [place] Monocytes (Bld) [#/Vol] 0.5 10*3/uL 0 - 0.8 10*3/uL [place] Monocytes/100 WBC (Bld) 6.4 % 2 - 10 % [place] Platelet mean volume (Bld) [Entitic vol] 8.2 fL 7.4 - 10.4 fL [place] Platelets (Bld) [#/Vol] 249 10*3/uL 140 - 440 10*3/uL [place] RBC (Bld) [#/Vol] 4.22 10*6/uL 3.8 - 5.2 10*6/uL [place] WBC (Bld) [#/Vol] 7.7 10*3/uL 3.6 - 10.7 10*3/uL [place] Test Performed by [facility], [address] , [place], [place] [id number] [place] [address] Hemogram w/ Autodiffon 06-08 Abs Baso Cnt 0.0 10*3/uL Normal 0.0-0.2 [facility] Comment on above: Performed By: #### H EMDF, BMP3, DDI2 #### [facility] [address] [place] [address] Abs Neutrophile Cnt 4.4 10*3/uL Normal 1.8-7.0 [facility] Comment on above: Performed By: #### H EMDF, BMP3, DDI2 #### [facility] [address] [place] [address] Basophils/100 WBC (Bld) 0.5 % Normal 0.0-2.0 [facility] Comment on above: Performed By: #### H EMDF, BMP3, DDI2 #### [facility] [address] [place] [address] Eosinophils (Bld) [#/Vol] 0.6 10*3/uL High 0.0-0.5 [facility] Comment on above: Performed By: #### H EMDF, BMP3, DDI2 #### [facility] [address] [place] [address] Eosinophils/100 WBC (Bld) 7.6 % High 1.0-6.0 [facility] Comment on above: Performed By: #### H EMDF, BMP3, DDI2 #### [facility] [address] [place] [address] Erythrocyte distribution width (RBC) [Ratio] 14.0 % Normal 11.5-14.5 [facility] Comment on above: Performed By: #### H EMDF, BMP3, DDI2 #### [facility] [address] [place] [address] Granulocytes/100 WBC (Bld) 57.2 % Normal 40.0-80.0 [facility] Comment on above: Performed By: #### H EMDF, BMP3, DDI2 #### [facility] [address] [place] [address] Hematocrit (Bld) [Volume fraction] 40.4 % Normal 35.0-47.0 [facility] Comment on above: Performed By: #### H EMDF, BMP3, DDI2 #### [facility] [address] [place] [address] Hemoglobin (Bld) [Mass/Vol] 13.8 g/dL Normal 11.7-16.0 [facility] Comment on above: Performed By: #### H EMDF, BMP3, DDI2 #### [facility] [address] [place] [address] Lymphocytes (Bld) [#/Vol] 2.2 10*3/uL Normal 1.0-4.3 [facility] Comment on above: Performed By: #### H EMDF, BMP3, DDI2 #### [facility] [address] [place] [address] Lymphocytes/100 WBC (Bld) 28.3 % Normal 20.0-40.0 [facility] Comment on above: Performed By: #### H EMDF, BMP3, DDI2 #### [facility] [address] [place] [address] MCH (RBC) [Entitic mass] 32.7 pg Normal 26.0-34.0 [facility] Comment on above: Performed By: #### H EMDF, BMP3, DDI2 #### [facility] [address] [place] [address] MCHC (RBC) [Mass/Vol] 34.2 % Normal 32.0-36.0 [facility] Comment on above: Performed By: #### H EMDF, BMP3, DDI2 #### [facility] [address] [place] [address] MCV (RBC) [Entitic vol] 95.6 fL Normal 79.0-98.0 [facility] Comment on above: Performed By: #### H EMDF, BMP3, DDI2 #### [facility] [address] [place] [address] Monocytes (Bld) [#/Vol] 0.5 10*3/uL Normal 0.0-0.8 [facility] Comment on above: Performed By: #### H EMDF, BMP3, DDI2 #### [facility] [address] [place] [address] Monocytes/100 WBC (Bld) 6.4 % Normal 2.0-10.0 [facility] Comment on above: Performed By: #### H EMDF, BMP3, DDI2 #### [facility] [address] [place] [address] Platelet mean volume (Bld) [Entitic vol] 8.2 fL Normal 7.4-10.4 [facility] Comment on above: Performed By: #### H EMDF, BMP3, DDI2 #### [facility] [address] [place] [address] Platelets (Bld) [#/Vol] 249 10*3/uL Normal 140-440 [facility] Comment on above: Performed By: #### H EMDF, BMP3, DDI2 #### [facility] [address] [place] [address] RBC (Bld) [#/Vol] 4.22 10*6/uL Normal 3.80-5.20 [facility] Comment on above: Performed By: #### H EMDF, BMP3, DDI2 #### [facility] [address] [place] [address] WBC (Bld) [#/Vol] 7.7 10*3/uL Normal 3.6-10.7 [facility] Comment on above: Performed By: #### H EMDF, BMP3, DDI2 #### [facility] [address] [place] [address] Troponin Ion 06-08-2020 Troponin I.cardiac [Mass/Vol] ng/mL Normal 0.000-0.034 [facility] Comment on above: Result Comment: . Performed By: #### H EMDF, BMP3 #### [facility] [address] [place] [address] Troponin x1on 06-08-2020 Troponin I.cardiac [Mass/Vol] ng/mL 0 - 0.034 ng/mL [place] Comment on above: . Test Performed by [facility], [address] , [place], [place] [address] [place] [address] XR CHEST (2 VW)on 06-08-2020 Patient Name: CARINE BARBA ---Diagnostic Radiology--- Exam Date/Time 06/08/2020 03:45:52 EDT Exam CR Chest PA/LAT Ordering Physician MD JIM, ANCA Accession Number [id number] CPT4 Codes 93345 () Reason For Exam sob Report CHEST [...] I Transcribed Date and Time: 06/08/2020 4:14 [facility], [place] [facility], [facility] Incoming Radiology Results From [facility] - 06/08/2020 4:15 AM EDT Patient Name: CARINE BARBA ---Diagnostic Radiology--- Exam Date/Time 06/08/2020 03:45:52 EDT Exam CR Chest PA/LAT Ordering Physician MD JIM, ANCA Accession Number [id number] CPT4 Codes 80796 () Reason For Exam sob Report CHEST [...] I Transcribed Date and Time: 06/08/2020 4:14 [facility], [place] Basic Metabolic Panelon 07-0 Anion gap [Moles/Vol] 13 Normal [facility] Comment on above: Performed By: #### H EMDF, BMP3 #### [facility] [address] [place] [address] Calcium [Mass/Vol] 8.8 mg/dL Normal 8.4-10.4 [facility] Comment on above: Performed By: #### H RADHA BMP3 #### [facility] [address] [place] [address] CO2 [Moles/Vol] 22 mmol/L Normal 22-30 [facility] Comment on above: Performed By: #### H RADHA BMP3 #### [facility] [address] [place] [address] Glucose [Mass/Vol] 121 mg/dL High 70-100 [facility] Comment on above: Performed By: #### H RADHA BMP3 #### [facility] [address] [place] [address] Urea nitrogen [Mass/Vol] 18 mg/dL Normal 7-20 [facility] Comment on above: Performed By: #### H RADHA BMP3 #### [facility] [address] [place] [address] Creatinine [Mass/Vol] 0.63 mg/dL Normal 0.52-1.25 [facility] Comment on above: Performed By: #### H RADHA BMP3 #### [facility] [address] [place] [address] GFR/1.73 sq M predicted among blacks MDRD (S/P/Bld) [Vol rate/Area] mL/min/{1.73_m2} Normal >60 [facility] Comment on above: Performed By: #### H RADHA BMP3 #### [facility] [address] [place] [address] GFR/1.73 sq M predicted among non-blacks MDRD (S/P/Bld) [Vol rate/Area] mL/min/{1.73_m2} Normal >60 [facility] Comment on above: Result Comment: KDIG [...] Performed By: #### H RADHA BMP3 #### [facility] [address] [place] [address] Chloride [Moles/Vol] 106 mmol/L Normal 98-107 [facility] Comment on above: Performed By: #### H RADHA BMP3 #### [facility] [address] [place] [address] Potassium [Moles/Vol] 3.4 mmol/L Low 3.5-5.1 [facility] Comment on above: Performed By: #### H RADHA BMP3 #### [facility] [address] [place] [address] Sodium [Moles/Vol] 140 mmol/L Normal 135-145 [facility] Comment on above: Performed By: #### H RADHA BMP3 #### [facility] [address] [place] [address] Anion gap [Moles/Vol] 13 mmol/L [place], [place] Calcium [Mass/Vol] 8.8 mg/dL 8.4 - 10. 4 mg/dL [place] Chloride [Moles/Vol] 106 mmol/L 98 - 10 7 mmol/L [place] CO2 [Moles/Vol] 22 mmol/L 22 - 30 mmol/L [place] Creatinine [Mass/Vol] 0.63 mg/dL 0.52 - 1.25 mg/dL [place] EGFR IF NonAfrican Gabonese >90.0 >60 mL/min [place] Comment on above: KDIGO guidelines pro [...] MDRD (S/P/Bld) [Vol rate/Area] mL/min/{1.73_m2} >60 mL/min [place] Glucose [Mass/Vol] 121 mg/dL High 70 - 100 mg/dL [place] Interpretation and review of laboratory results Abnormal [place] Potassium [Moles/Vol] 3.4 mmol/L Low 3.5 - 5.1 mmol/L [place] Sodium [Moles/Vol] 140 mmol/L 135 - 145 mmol/L [place] Urea nitrogen [Mass/Vol] 18 mg/dL 7 - 20 mg/dL [place] Test Performed by [facility], [address] [place] [address] CR Chest Portableon 04-29-20 20 CR Chest Portable Patient Name: CARINE BARBA Diagnostic Radiology Exam Date/Time 04/29/2020 10:39:47 EDT Exam CR Chest Portable Ordering Physician MD JUSTO, NIMO Munson Accession Number [id number] CPT4 Codes 83979 () Reason For Exam respiratory distress Report [...] Transcribed Date and Time: 04/29/2020 11:08 Normal [facility] Hemogram (CBC) w/Auto Diffon 04-29-2020 Absolute Baso # 0.1 10*3/uL 0 - 0.2 10*3/uL [place] Absolute Neut # 6.6 10*3/uL 1.8 - 7 10*3/uL [place] Basophils/100 WBC (Bld) 0.6 % 0 - 2 % [place] Eosinophils (Bld) [#/Vol] 1.0 10*3/uL High 0 - 0.5 10*3/uL [place] Eosinophils/100 WBC (Bld) 9.9 % High 1 - 6 % [place] Erythrocyte distribution width (RBC) [Ratio] 13.7 % 11.5 - 14.5 % [place] Granulocytes/100 WBC (Bld) 66.0 % 40 - 80 % [place] Hematocrit (Bld) [Volume fraction] 40.8 % 35 - 47 % [place] Hemoglobin (Bld) [Mass/Vol] 14.2 g/dL 11.7 - 16 g/dL [place] Interpretation and review of laboratory results Abnormal [place] Lymphocytes (Bld) [#/Vol] 1.8 10*3/uL 1 - 4.3 10*3/uL [place] Lymphocytes/100 WBC (Bld) 18.1 % Low 20 - 40 % [place] MCH (RBC) [Entitic mass] 33.0 pg 26 - 34 pg [place] MCHC (RBC) [Mass/Vol] 34.7 % 32 - 36 % [place] MCV (RBC) [Entitic vol] 95.0 fL 79 - 98 fL [place] Monocytes (Bld) [#/Vol] 0.5 10*3/uL 0 - 0.8 10*3/uL [place] Monocytes/100 WBC (Bld) 5.4 % 2 - 10 % [place] Platelet mean volume (Bld) [Entitic vol] 8.4 fL 7.4 - 10.4 fL [place] Platelets (Bld) [#/Vol] 237 10*3/uL 140 - 440 10*3/uL [place] RBC (Bld) [#/Vol] 4.30 10*6/uL 3.8 - 5.2 10*6/uL [place] WBC (Bld) [#/Vol] 10.0 10*3/uL 3.6 - 10.7 10*3/uL [place] Test Performed by [facility], [address] , [address] Hemogram w/ Autodiffon 04-29 Abs Baso Cnt 0.1 10*3/uL Normal 0.0-0.2 [facility] Comment on above: Performed By: #### H RADHA BMP3 #### [facility] [address] [place] [address] Abs Neutrophile Cnt 6.6 10*3/uL Normal 1.8-7.0 [facility] Comment on above: Performed By: #### H RADHA BMP3 #### [facility] [address] [place] [address] Basophils/100 WBC (Bld) 0.6 % Normal 0.0-2.0 [facility] Comment on above: Performed By: #### H RADHA BMP3 #### [facility] [address] [place] [address] Eosinophils (Bld) [#/Vol] 1.0 10*3/uL High 0.0-0.5 [facility] Comment on above: Performed By: #### H RADHA BMP3 #### [facility] [address] [place] [address] Eosinophils/100 WBC (Bld) 9.9 % High 1.0-6.0 [facility] Comment on above: Performed By: #### H RADHA BMP3 #### [facility] [address] [place] [address] Erythrocyte distribution width (RBC) [Ratio] 13.7 % Normal 11.5-14.5 [facility] Comment on above: Performed By: #### H RADHA BMP3 #### [facility] [address] [place] [address] Granulocytes/100 WBC (Bld) 66.0 % Normal 40.0-80.0 [facility] Comment on above: Performed By: #### H RADHA BMP3 #### [facility] [address] [place] [address] Hematocrit (Bld) [Volume fraction] 40.8 % Normal 35.0-47.0 [facility] Comment on above: Performed By: #### H RADHA BMP3 #### [facility] [address] [place] [address] Hemoglobin (Bld) [Mass/Vol] 14.2 g/dL Normal 11.7-16.0 [facility] Comment on above: Performed By: #### H RADHA BMP3 #### [facility] [address] [place] [address] Lymphocytes (Bld) [#/Vol] 1.8 10*3/uL Normal 1.0-4.3 [facility] Comment on above: Performed By: #### H RADHA BMP3 #### [facility] [address] [place] [address] Lymphocytes/100 WBC (Bld) 18.1 % Low 20.0-40.0 [facility] Comment on above: Performed By: #### H RADHA BMP3 #### [facility] [address] [place] [address] MCH (RBC) [Entitic mass] 33.0 pg Normal 26.0-34.0 [facility] Comment on above: Performed By: #### H EMDF, BMP3 #### [facility] [address] [place] [address] MCHC (RBC) [Mass/Vol] 34.7 % Normal 32.0-36.0 [facility] Comment on above: Performed By: #### H EMDF, BMP3 #### [facility] [address] [place] [address] MCV (RBC) [Entitic vol] 95.0 fL Normal 79.0-98.0 [facility] Comment on above: Performed By: #### H EMDF, BMP3 #### [facility] [address] [place] [address] Monocytes (Bld) [#/Vol] 0.5 10*3/uL Normal 0.0-0.8 [facility] Comment on above: Performed By: #### H EMDF, BMP3 #### [facility] [address] [place] [address] Monocytes/100 WBC (Bld) 5.4 % Normal 2.0-10.0 [facility] Comment on above: Performed By: #### H EMDF, BMP3 #### [facility] [address] [place] [address] Platelet mean volume (Bld) [Entitic vol] 8.4 fL Normal 7.4-10.4 [facility] Comment on above: Performed By: #### H EMDF, BMP3 #### [facility] [address] [place] [address] Platelets (Bld) [#/Vol] 237 10*3/uL Normal 140-440 [facility] Comment on above: Performed By: #### H EMDF, BMP3 #### [facility] [address] [place] [address] RBC (Bld) [#/Vol] 4.30 10*6/uL Normal 3.80-5.20 [facility] Comment on above: Performed By: #### H EMDF, BMP3 #### [facility] [address] [place] [address] WBC (Bld) [#/Vol] 10.0 10*3/uL Normal 3.6-10.7 [facility] Comment on above: Performed By: #### H EMDF, BMP3 #### [facility] [address] [place] [address] XR CHEST PORTABLEon 04-29-20 [place], [facility] Incoming Radiology [facility] - 04/29/2020 11:08 AM EDT Patient Name: CARINE BARBA ---Diagnostic Radiology--- Exam Date/Time 04/29/2020 10:39:47 EDT Exam CR Chest Portable Ordering Physician MD HUGHES DAVID L Accession Number [id number] CPT4 Codes 00848 () Reason For Exam respiratory distress Report [...] NICHOLAS Transcribed Date and Time: 04/29/2020 11:08 [place], [place] Patient Name: CARINE BARBA ---Diagnostic Radiology--- Exam Date/Time 04/29/2020 10:39:47 EDT Exam CR Chest Portable Ordering Physician MD HUGHES DAVID L Accession Number [id number] CPT4 Codes 79728 () Reason For Exam respiratory distress Report [...] NICHOLAS Transcribed Date and Time: 04/29/2020 11:08 [facility] [place], [place] Basic Metabolic Panelon 10-24 Anion gap [Moles/Vol] 10 Normal [facility] Comment on above: Performed By: #### H RADHA BMP3 #### [facility] [address] [place] [address] Calcium [Mass/Vol] 8.8 mg/dL Normal 8.4-10.4 [facility] Comment on above: Performed By: #### H RADHA BMP3 #### [facility] [address] [place] [address] CO2 [Moles/Vol] 26 mmol/L Normal 22-30 [facility] Comment on above: Performed By: #### H RADHA BMP3 #### [facility] [address] [place] [address] Glucose [Mass/Vol] 112 mg/dL High 70-100 [facility] Comment on above: Performed By: #### Aidan GARCIA BMP3 #### [facility] [address] [place] [address] Urea nitrogen [Mass/Vol] 16 mg/dL Normal 7-20 [facility] Comment on above: Performed By: #### H RADHA BMP3 #### [facility] [address] [place] [address] Creatinine [Mass/Vol] 0.72 mg/dL Normal 0.52-1.25 [facility] Comment on above: Performed By: #### H RADHA BMP3 #### [facility] [address] [place] [address] GFR/1.73 sq M predicted among blacks MDRD (S/P/Bld) [Vol rate/Area] mL/min/{1.73_m2} Normal >60 [facility] Comment on above: Performed By: #### H RADHA BMP3 #### [facility] [address] [place] [address] GFR/1.73 sq M predicted among non-blacks MDRD (S/P/Bld) [Vol rate/Area] mL/min/{1.73_m2} Normal >60 [facility] Comment on above: Result Comment: Sour ce- MDRD equation with creatinine calibration to IDMS(NKDEP) eGFR not recommended for drug dose adjustment Performed By: #### H RADHA BMP3 #### [facility] [address] [place] [address] Chloride [Moles/Vol] 103 mmol/L Normal 98-107 [facility] Comment on above: Performed By: #### H RADHA, BMP3 #### [facility] [address] [place] [address] Potassium [Moles/Vol] 3.6 mmol/L Normal 3.5-5.1 [facility] Comment on above: Performed By: #### H RADHA BMP3 #### [facility] [address] [place] [address] Sodium [Moles/Vol] 139 mmol/L Normal 135-145 [facility] Comment on above: Performed By: #### H RADHA, BMP3 #### [facility] [address] [place] [address] Basic Metabolic PanelOrdered By: David Granger on 11-11-2019 Anion gap [Moles/Vol] 10 mmol/L [facility] Work Phone: Calcium [Mass/Vol] 8.8 mg/dL 8.4 - 10. 4 mg/dL [facility] Work Phone: Chloride [Moles/Vol] 103 mmol/L 98 - 10 7 mmol/L [facility] Work Phone: CO2 [Moles/Vol] 26 mmol/L 22 - 30 mmol/L [facility] Work Phone: Creatinine [Mass/Vol] 0.72 mg/dL 0.52 - 1.25 mg/dL [facility] Work Phone: EGFR IF NonAfrican Gabonese >60.0 >60 mL/min [facility] Work Phone: Comment on above: Source- MDRD equatio n with creatinine calibration to IDMS(NKDEP) eGFR not recommended for drug dose adjustment GFR/1.73 sq M.predicted among blacks MDRD (S/P/Bld) [Vol rate/Area] mL/min/{1.73_m2} >60 mL/min [employer] Work Phone: Glucose [Mass/Vol] 112 mg/dL High 70 - 100 mg/dL [facility] Work Phone: Interpretation and review of laboratory results Abnormal [facility] Work Phone: Potassium [Moles/Vol] 3.6 mmol/L 3.5 - 5.1 mmol/L [facility] Work Phone: Sodium [Moles/Vol] 139 mmol/L 135 - 145 mmol/L [facility] Work Phone: Urea nitrogen [Mass/Vol] 16 mg/dL 7 - 20 mg/dL [employer] Work Phone: Test Performed by [employer] [facility], [address] [place] [address] [employer] Work Phone: CR Chest Portableon 11-11-19 20 CR Chest Portable Patient Name: CARINE BARBA Diagnostic Radiology Exam Date/Time 11/11/2019 19:53:25 EST Exam CR Chest Portable Ordering Physician MD GRANGER SHAWN C. Accession Number [id number] CPT4 Codes 11812 () Reason For Exam ASTHMA SOB Report [...] Transcribed Date and Time: 11/11/2019 8:02 Normal [facility] [employer] [facility] Hemogram (CBC) w/Auto DiffOr dered By: David Granger on 11-11-2019 Absolute Baso # 0.0 10*3/uL 0 - 0.2 10*3/uL [facility] Work Phone: Absolute Neut # 6.0 10*3/uL 1.8 - 7 10*3/uL [facility] Work Phone: Basophils/100 WBC (Bld) 0.4 % 0 - 2 % [facility] Work Phone: Eosinophils (Bld) [#/Vol] 0.4 10*3/uL 0 - 0.5 10*3/uL [facility] Work Phone: Eosinophils/100 WBC (Bld) 4.1 % 1 - 6 % [facility] Work Phone: Erythrocyte distribution width (RBC) [Ratio] 13.8 % 11.5 - 14.5 % [facility] Work Phone: Granulocytes/100 WBC (Bld) 67.2 % 40 - 80 % [facility] Work Phone: Hematocrit (Bld) [Volume fraction] 41.4 % 35 - 47 % [facility] Work Phone: Hemoglobin (Bld) [Mass/Vol] 14.1 g/dL 11.7 - 16 g/dL [facility] Work Phone: Lymphocytes (Bld) [#/Vol] 2.0 10*3/uL 1 - 4.3 10*3/uL [facility] Work Phone: Lymphocytes/100 WBC (Bld) 22.7 % 20 - 40 % [facility] Work Phone: MCH (RBC) [Entitic mass] 32.9 pg 26 - 34 pg [facility] Work Phone: MCHC 34.0 % 32 - 36 % [facility] Work Phone: MCV (RBC) [Entitic vol] 96.8 fL 79 - 98 fL [facility] Work Phone: Monocytes (Bld) [#/Vol] 0.5 10*3/uL 0 - 0.8 10*3/uL [facility] Work Phone: Monocytes/100 WBC (Bld) 5.6 % 2 - 10 % [facility] Work Phone: Platelet mean volume (Bld) [Entitic vol] 8.8 fL 7.4 - 10.4 fL [facility] Work Phone: Platelets (Bld) [#/Vol] 260 10*3/uL 140 - 440 10*3/uL [facility] Work Phone: RBC (Bld) [#/Vol] 4.28 10*6/uL 3.8 - 5.2 10*6/uL [facility] Work Phone: WBC (Bld) [#/Vol] 8.9 10*3/uL 3.6 - 10.7 10*3/uL [facility] Work Phone: Test Performed by [facility] [employer], [address] Work Phone: Hemogram w/ Autodiffon 11-11 Abs Baso Cnt 0.0 10*3/uL Normal 0.0-0.2 [facility] Comment on above: Performed By: #### H RADHA BMP3 #### [facility] [employer] [address] [place] [address] Abs Neutrophile Cnt 6.0 10*3/uL Normal 1.8-7.0 [facility] Comment on above: Performed By: #### H EMDMeagan BMP3 #### [facility] [employer] [address] [place] [address] Basophils/100 WBC (Bld) 0.4 % Normal 0.0-2.0 [facility] Comment on above: Performed By: #### H EMDMeagan BMP3 #### [facility] [employer] [address] [place] [address] Eosinophils (Bld) [#/Vol] 0.4 10*3/uL Normal 0.0-0.5 [facility] Comment on above: Performed By: #### H RADHA BMP3 #### [facility] [address] [place] [address] Eosinophils/100 WBC (Bld) 4.1 % Normal 1.0-6.0 [facility] Comment on above: Performed By: #### H RADHA BMP3 #### [facility] [address] [facility] [place] [address] Erythrocyte distribution width (RBC) [Ratio] 13.8 % Normal 11.5-14.5 [facility] Comment on above: Performed By: #### H RADHA BMP3 #### [facility] [address] [facility] [place] [address] Granulocytes/100 WBC (Bld) 67.2 % Normal 40.0-80.0 [facility] Comment on above: Performed By: #### H RADHA BMP3 #### [facility] [address] [facility] [place] [address] Hematocrit (Bld) [Volume fraction] 41.4 % Normal 35.0-47.0 [facility] Comment on above: Performed By: #### H RADHA BMP3 #### [facility] [address] [facility] [place] [address] Hemoglobin (Bld) [Mass/Vol] 14.1 g/dL Normal 11.7-16.0 [facility] Comment on above: Performed By: #### H RADHA BMP3 #### [facility] [address] [facility] [place] [address] Lymphocytes (Bld) [#/Vol] 2.0 10*3/uL Normal 1.0-4.3 [facility] Comment on above: Performed By: #### H RADHA BMP3 #### [facility] [address] [place] [address] Lymphocytes/100 WBC (Bld) 22.7 % Normal 20.0-40.0 [facility] Comment on above: Performed By: #### H RADHA BMP3 #### [facility] [address] [place] [address] MCH (RBC) [Entitic mass] 32.9 pg Normal 26.0-34.0 [facility] Comment on above: Performed By: #### H RADHA, BMP3 #### [facility] [address] [place] [address] MCHC (RBC) [Mass/Vol] 34.0 % Normal 32.0-36.0 [facility] Comment on above: Performed By: #### H EMDMeagan, BMP3 #### [facility] [address] [place] [address] MCV (RBC) [Entitic vol] 96.8 fL Normal 79.0-98.0 [facility] Comment on above: Performed By: #### H CHRISTYF, BMP3 #### [facility] [address] [place] [address] Monocytes (Bld) [#/Vol] 0.5 10*3/uL Normal 0.0-0.8 [facility] Comment on above: Performed By: #### H RADHA BMP3 #### [facility] [address] [place] [address] Monocytes/100 WBC (Bld) 5.6 % Normal 2.0-10.0 [facility] Comment on above: Performed By: #### H EMDF, BMP3 #### [facility] [address] [place] [address] Platelet mean volume (Bld) [Entitic vol] 8.8 fL Normal 7.4-10.4 [facility] Comment on above: Performed By: #### H EMDF, BMP3 #### [facility] [address] [place] [address] Platelets (Bld) [#/Vol] 260 10*3/uL Normal 140-440 [facility] Comment on above: Performed By: #### H EMDF, BMP3 #### [facility] [address] [place] [address] RBC (Bld) [#/Vol] 4.28 10*6/uL Normal 3.80-5.20 [facility] Comment on above: Performed By: #### H EMDF, BMP3 #### [facility] [address] [place] [address] WBC (Bld) [#/Vol] 8.9 10*3/uL Normal 3.6-10.7 [facility] Comment on above: Performed By: #### H EMDF, BMP3 #### [facility] [address] [place] [address] Rapid Flu A AND B, RNAon Rapid Influenza A Not Detected Normal Not Detected [facility] Comment on above: Performed By: #### R PFAB #### [facility] [address] [place] [address] Rapid Influenza B Not Detected Normal Not Detected [facility] Comment on above: Result Comment: Meth od: Isothermal nucleic acid amplification technology. Performed By: #### R PFAB #### [facility] [address] [place] [address] Rapid Influenza A/B Antigens Ordered By: David Granger on 11-11-2019 INFLUENZA A Not detected Not Detected NA [employer] Work Phone: INFLUENZA B Not detected Not Detected NA [facility] Work Phone: Comment on above: Method: Isothermal n ucleic acid amplification technology. Test Performed by [facility], [address] , [address] Work Phone: XR CHEST PORTABLEOrdered By: David Granger on 11-11-2019 Patient Name: CARINE BARBA ---Diagnostic Radiology--- Exam Date/Time 11/11/2019 19:53:25 EST Exam CR Chest Portable Ordering Physician MD ERWIN, DAVID Ellis Accession Number [id number] CPT4 Codes 53304 () Reason For Exam ASTHMA SOB Report [...] and Time: 11/11/2019 8:02 [facility] Work Phone: [facility], [facility] Incoming Radiology Results From [facility] - 11/11/2019 8:02 PM EST Patient Name: CARINE BARBA ---Diagnostic Radiology--- Exam Date/Time 11/11/2019 19:53:25 EST Exam CR Chest Portable Ordering Physician MD ERWIN, DAVID Ellis Accession Number [id number] CPT4 Codes 33871 () Reason For Exam ASTHMA SOB Report [...] and Time: 11/11/2019 8:02 [facility] Work Phone: [facility] Note on 12-07-2017 [facility] Note Normal [facility] ([place] Pat Eduon 12-07-2017 Pat Edu Normal [facility] [place] Patient Summary Documentson 12-07-2017 Patient Summary Documents Normal [facility] ([place] [facility] Note on 10-07-2017 [facility] Note Normal [facility] ([place] Patient Summary Documentson 10-06-2017 Patient Summary Documents Normal [facility] [place] ED Note-Provideron ED Note-Provider Normal [facility] [place] Patient Summary Documentson 06-09-2017 Patient Summary Documents Normal [facility] ([place] [facility] Note on 06-07-2017 [facility] Note Normal [facility] ([place] Patient Summary Documentson 06-06-2017 Patient Summary Documents Normal [facility] ([place] Vital Signs Date Time Vital Sign Value Performing Clinician Sai boss 09-02-2025 14:42-0500 Body height 170.2 cm Carrington BASILIO Work Phone: [facility] [employer] 09-02-2025 14:42-0500 Body mass index (BMI) [Ratio] 32.26 kg/m2 Carrington BASILIO Work Phone: [facility] [employer] 09-02-2025 14:42-0500 Body weight 93.44 kg Carrington BASILIO Work Phone: [facility] [employer] 09-02-2025 14:42-0500 Diastolic blood pressure 73 mm[Hg] Carrington BASILIO Work Phone: [facility] [facility] 09-02-2025 14:42-0500 Heart rate 81 /min Carrington BASILIO Work Phone: [facility] 09-02-2025 14:42-0500 SaO2% (BldA) [Mass fraction] 97 % Carrington BASILIO Work Phone: [facility] 09-02-2025 14:42-0500 Systolic blood pressure 106 mm[Hg] Carrington BASILIO Work Phone: [facility] 08-28-2025 10:23-0500 Body height 170.2 cm Munira Iraheta NP Work Phone: [facility] 08-28-2025 10:23-0500 Body mass index (BMI) [Ratio] 32.95 kg/m2 Munira Pradoyohan CERTIFIED COATINGS INSPECTOR Work Phone: [facility] [employer] 08-28-2025 10:23-0500 Body temperature 97.5 [degF] Munira Iraheta CERTIFIED COATINGS INSPECTOR Work Phone: [facility] 08-28-2025 10:23-0500 Body weight 95.44 kg Munira Iraheta CERTIFIED COATINGS INSPECTOR Work Phone: [facility] 08-28-2025 10:23-0500 Diastolic blood pressure 68 mm[Hg] Munira Pradoyohan CERTIFIED COATINGS INSPECTOR Work Phone: [facility] 08-28-2025 10:23-0500 Heart rate 80 /min Munira Pradoyohan CERTIFIED COATINGS INSPECTOR Work Phone: [facility] 08-28-2025 10:23-0500 SaO2% (BldA) [Mass fraction] 95 % Munira Pradoyohan CERTIFIED COATINGS INSPECTOR Work Phone: [facility] 08-28-2025 10:23-0500 Systolic blood pressure 106 mm[Hg] Munira Pradoyohan CERTIFIED COATINGS INSPECTOR Work Phone: [facility] 07-23-2025 10:29-0400 Body mass index (BMI) [Ratio] 31.48 kg/m2 Delphine Major CUSTOMER SALES ADVISOR - INTERMEDIATE TEACHER Work Phone: [facility] 07-23-2025 10:29-0400 Body weight 91.17 kg Delphine Major APR N - INTERMEDIATE TEACHER Work Phone: [facility] 07-23-2025 10:29-0400 Diastolic blood pressure 77 mm[Hg] Delphine Major CUSTOMER SALES ADVISOR - INTERMEDIATE TEACHER Work Phone: [facility] 07-23-2025 10:29-0400 Heart rate 77 /min Delphine Major APR N - INTERMEDIATE TEACHER Work Phone: [facility] 07-23-2025 10:29-0400 Systolic blood pressure 134 mm[Hg] Delphine Major CUSTOMER SALES ADVISOR - INTERMEDIATE TEACHER Work Phone: [facility] 07-05-2025 11:28-0400 Body height 170.2 cm Abby Marie PA-C Work Phone: [facility] 07-05-2025 11:28-0400 Body mass index (BMI) [Ratio] 30.45 kg/m2 Abby Jerezier PA-C Work Phone: [facility] 07-05-2025 11:28-0400 Body weight 88.18 kg Abby Marie PA-C Work Phone: [facility] 07-05-2025 11:28-0400 Diastolic blood pressure 74 mm[Hg] Abby Marie PA-C Work Phone: [facility] 07-05-2025 11:28-0400 Heart rate 74 /min Abby Marie PA-C Work Phone: [facility] 07-05-2025 11:28-0400 SaO2% (BldA) [Mass fraction] 95 % Abby Marie PA-C Work Phone: [facility] 07-05-2025 11:28-0400 Systolic blood pressure 116 mm[Hg] Abby Marie PA-C Work Phone: [facility] 06-25-2025 10:43-0400 Heart rate 96 /min No Primary Care Physician [facility] 06-25-2025 10:43-0400 Respiratory rate 16 /min No Primary Care Physician [facility] 06-25-2025 09:36-0400 Body temperature 98.1 [degF] No Primary Care Physician [facility] 06-25-2025 09:36-0400 Diastolic blood pressure 74 mm[Hg] No Primary Care Physician [facility] 06-25-2025 09:36-0400 SaO2% (BldA) [Mass fraction] 94 % No Primary Care Physician [facility] 06-25-2025 09:36-0400 Systolic blood pressure 126 mm[Hg] No Primary Care Physician [facility] 06-24-2025 08:52-0400 Inhaled oxygen flow rate 2 L/min No Primary Care Physician [facility] 06-23-2025 13:52-0400 Body height 170.18 cm No Primary Care Physician [facility] 06-23-2025 13:52-0400 Body mass index (BMI) [Ratio] 28.3 kg/m2 No Primary Care Physician [facility] 06-23-2025 13:52-0400 Body weight 81.9 kg No Primary Care Physician [facility] 06-23-2025 13:18-0400 Body temperature 98.5 [degF] No Primary Care Physician [facility] 06-23-2025 13:18-0400 Diastolic blood pressure 73 mm[Hg] No Primary Care Physician [facility] 06-23-2025 13:18-0400 Heart rate 91 /min No Primary Care Physician [facility] 06-23-2025 13:18-0400 Respiratory rate 17 /min No Primary Care Physician [facility] 06-23-2025 13:18-0400 SaO2% (BldA) [Mass fraction] 97 % No Primary Care Physician [facility] 06-23-2025 13:18-0400 Systolic blood pressure 116 mm[Hg] No Primary Care Physician [facility] 06-23-2025 13:00-0400 Inhaled oxygen flow rate 2 L/min No Primary Care Physician [facility] 06-23-2025 10:12-0400 Body height 170.18 cm No Primary Care Physician [facility] 06-18-2025 02:49-0400 Diastolic blood pressure 82 mm[Hg] Joel Barrosoel DO Work Phone: [facility] 06-18-2025 02:49-0400 Heart rate 107 /min Joel Venczel DO Work Phone: [facility] 06-18-2025 02:49-0400 Respiratory rate 17 /min Joel Venczel DO Work Phone: [facility] 06-18-2025 02:49-0400 SaO2% (BldA) [Mass fraction] 94 % Joel Venczel DO Work Phone: [facility] 06-18-2025 02:49-0400 Systolic blood pressure 131 mm[Hg] Joel Venczel DO Work Phone: [facility] 06-17-2025 22:01-0400 Body temperature 100.09 [degF] Joel Shepard DO Work Phone: [facility] 06-17-2025 21:50-0400 Body height 170.2 cm Joel Shepard DO Work Phone: [facility] 06-17-2025 21:50-0400 Body mass index (BMI) [Ratio] 25.06 kg/m2 Joel Shepard DO Work Phone: [facility] 06-17-2025 21:50-0400 Body weight 72.58 kg Joel Shepard DO Work Phone: [facility] 06-13-2025 14:57-0400 Body temperature 97.8 [degF] No Primary Care Physician [facility] 06-13-2025 14:57-0400 Diastolic blood pressure 78 mm[Hg] No Primary Care Physician [facility] 06-13-2025 14:57-0400 Heart rate 64 /min No Primary Care Physician [facility] 06-13-2025 14:57-0400 Respiratory rate 18 /min No Primary Care Physician [facility] 06-13-2025 14:57-0400 SaO2% (BldA) [Mass fraction] 99 % No Primary Care Physician [facility] 06-13-2025 14:57-0400 Systolic blood pressure 128 mm[Hg] No Primary Care Physician [facility] 06-13-2025 12:20-0400 Body height 170.18 cm No Primary Care Physician [facility] 06-13-2025 12:20-0400 Body mass index (BMI) [Ratio] 31.9 kg/m2 No Primary Care Physician [facility] 06-13-2025 12:20-0400 Body weight 92.6 kg No Primary Care Physician [facility] 05-22-2025 08:15-0400 Body temperature 98.2 [degF] No Primary Care Physician [facility] 05-22-2025 08:15-0400 Diastolic blood pressure 73 mm[Hg] No Primary Care Physician [facility] 05-22-2025 08:15-0400 Heart rate 90 /min No Primary Care Physician [facility] 05-22-2025 08:15-0400 Respiratory rate 16 /min No Primary Care Physician [facility] 05-22-2025 08:15-0400 SaO2% (BldA) [Mass fraction] 99 % No Primary Care Physician [facility] 05-22-2025 08:15-0400 Systolic blood pressure 118 mm[Hg] No Primary Care Physician [facility] 05-21-2025 15:14-0400 Body height 170.18 cm No Primary Care Physician [facility] 05-21-2025 15:14-0400 Body weight 71 kg No Primary Care Physician [facility] 05-18-2025 20:49-0400 Body mass index (BMI) [Ratio] 24.5 kg/m2 No Primary Care Physician [facility] 05-18-2025 20:38-0400 Body temperature 98.9 [degF] No Primary Care Physician [facility] 05-18-2025 20:38-0400 Diastolic blood pressure 72 mm[Hg] No Primary Care Physician [facility] 05-18-2025 20:38-0400 Heart rate 79 /min No Primary Care Physician [facility] 05-18-2025 20:38-0400 Respiratory rate 18 /min No Primary Care Physician [facility] 05-18-2025 20:38-0400 SaO2% (BldA) [Mass fraction] 99 % No Primary Care Physician [facility] 05-18-2025 20:38-0400 Systolic blood pressure 139 mm[Hg] No Primary Care Physician [facility] 05-18-2025 18:18-0400 Body height 170.18 cm No Primary Care Physician [facility] 05-18-2025 18:18-0400 Body mass index (BMI) [Ratio] 24.9 kg/m2 No Primary Care Physician [facility] 05-18-2025 18:18-0400 Body weight 72.25 kg No Primary Care Physician [facility] 04-15-2025 11:48-0400 SaO2% (BldA) [Mass fraction] 95 % Vincent Nesheim DO Work Phone: [facility] [employer] 04-15-2025 07:00-0400 Body temperature 97.2 [degF] Vincent Nesheim DO Work Phone: [employer] 04-15-2025 07:00-0400 Diastolic blood pressure 82 mm[Hg] Vincent Nesheim DO Work Phone: [facility] [facility] 04-15-2025 07:00-0400 Heart rate 112 /min Vincent Nesheim DO Work Phone: [facility] [facility] 04-15-2025 07:00-0400 Respiratory rate 16 /min Vincent Nesheim DO Work Phone: [facility] [facility] 04-15-2025 07:00-0400 Systolic blood pressure 130 mm[Hg] Vincent Nesheim DO Work Phone: [facility] 04-15-2025 01:02-0400 Body height 167.6 cm Vincent Nesheim DO Work Phone: [facility] 04-15-2025 01:02-0400 Body mass index (BMI) [Ratio] 27.44 kg/m2 Vincent Nesheim DO Work Phone: [facility] [facility] 04-15-2025 01:02-0400 Body weight 77.11 kg Vincent Nesheim DO Work Phone: [facility] 01-08-2025 03:11-0400 Diastolic blood pressure 64 mm[Hg] Giancarlo Batres MD Work Phone: [facility] [facility] 01-08-2025 03:11-0400 Heart rate 100 /min Giancarlo Batres MD Work Phone: [facility] 01-08-2025 03:11-0400 Respiratory rate 20 /min Giancarlo Batres MD Work Phone: [facility] [facility] 01-08-2025 03:11-0400 SaO2% (BldA) [Mass fraction] 96 % Giancarlo Batres MD Work Phone: [facility] [facility] 01-08-2025 03:11-0400 Systolic blood pressure 117 mm[Hg] Giancarlo Batres MD Work Phone: [facility] 01-08-2025 01:54-0400 Body height 170.2 cm Giancarlo Batres MD Work Phone: [facility] 01-08-2025 01:54-0400 Body mass index (BMI) [Ratio] 26.63 kg/m2 Giancarlo Batres MD Work Phone: [facility] 01-08-2025 01:54-0400 Body temperature 99 [degF] Giancarlo Batres MD Work Phone: [facility] 01-08-2025 01:54-0400 Body weight 77.11 kg Giancarlo Batres MD Work Phone: [facility] 03-23-2022 10:53-0400 Respiratory rate 16 /min [facility] Work Phone: 03-23-2022 08:42-0400 Diastolic blood pressure 88 mm[Hg] [facility] Work Phone: 03-23-2022 08:42-0400 Heart rate 86 /min [facility] Work Phone: 03-23-2022 08:42-0400 SaO2% (BldA) [Mass fraction] 97 % [facility] Work Phone: 03-23-2022 08:42-0400 Systolic blood pressure 160 mm[Hg] [facility] Work Phone: 03-23-2022 06:42-0400 Body height 170.18 cm [facility] Work Phone: 03-23-2022 06:42-0400 Body mass index (BMI) [Ratio] 32.3 kg/m2 [facility] Work Phone: 03-23-2022 06:42-0400 Body temperature 97.9 [degF] [facility] Work Phone: 03-23-2022 06:42-0400 Body weight 93.7 kg [facility] Work Phone: 07-05-2020 11:10-0400 Pulse (Heart Rate) 85 /min [place] 07-05-2020 11:10-0400 Pulse Oximetry 95 % [facility] [place] 07-05-2020 10:14-0400 BP Diastolic 63 mm[Hg] [facility] [place] 07-05-2020 10:14-0400 BP Systolic 113 mm[Hg] [facility] [place] 07-05-2020 10:14-0400 Respiratory Rate 16 /min [facility] [place] 07-05-2020 09:11-0400 BMI (Body Mass Index) 28.19 kg/m2 [facility] [place] 07-05-2020 09:11-0400 Body Temperature 98.2 [degF] [facility] [place] 07-05-2020 09:11-0400 Body weight 81.65 kg [facility] [place] 07-05-2020 09:11-0400 Height 170.2 cm [facility] [place] 06-08-2020 05:18-0400 BP Diastolic 66 mm[Hg] [facility] [place] 06-08-2020 05:18-0400 BP Systolic 123 mm[Hg] [facility] [place] 06-08-2020 05:18-0400 Pulse (Heart Rate) 88 /min [facility] [place] 06-08-2020 05:18-0400 Pulse Oximetry 99 % [facility] [place] 06-08-2020 05:18-0400 Respiratory Rate 16 /min [facility] 06-08-2020 02:35-0400 BMI (Body Mass Index) 28.19 kg/m2 [facility] [place] 06-08-2020 02:35-0400 Body Temperature 98.49 [degF] [facility] [place] 06-08-2020 02:35-0400 Body weight 81.65 kg [facility] [place] 06-08-2020 02:35-0400 Height 170.2 cm [facility] [place] 04-29-2020 11:24-0400 BP Diastolic 69 mm[Hg] [facility] , [place] 04-29-2020 11:24-0400 BP Systolic 110 mm[Hg] [facility] [place] 04-29-2020 11:24-0400 Pulse (Heart Rate) 101 /min [facility] [place] 04-29-2020 11:24-0400 Pulse Oximetry 97 % [facility] [place] 04-29-2020 11:24-0400 Respiratory Rate 20 /min [facility], [place] 04-29-2020 09:16-0400 Body Temperature 98.4 [degF] [facility] [place] 11-12-2019 11:47-0500 SaO2% (BldA) [Mass fraction] 96 % David Granger MD Work Phone: [facility] Work Phone: 11-12-2019 07:32-0500 Body temperature 98.01 [degF] David Granger MD Work Phone: [facility] Work Phone: 11-12-2019 07:32-0500 Diastolic blood pressure 84 mm[Hg] David Granger MD Work Phone: [facility] Work Phone: 11-12-2019 07:32-0500 Heart rate 81 /min David Granger MD Work Phone: [facility] Work Phone: 11-12-2019 07:32-0500 Respiratory rate 18 /min David Granger MD Work Phone: [facility] Work Phone: 11-12-2019 07:32-0500 Systolic blood pressure 124 mm[Hg] David Granger MD Work Phone: [facility] Work Phone: 11-11-2019 17:39-0500 Body height 170.2 cm David Granger MD Work Phone: [facility] Work Phone: 11-11-2019 17:39-0500 Body mass index (BMI) [Ratio] 28.98 kg/m2 David Granger MD Work Phone: [facility] Work Phone: 11-11-2019 17:39-0500 Body weight 83.92 kg David Granger MD Work Phone: [facility] Work Phone: Encounters Encounter Date Encounter Type Care Provider Facility Start: 09-02-2025 End: 09-02-2025 ambulatory LORENA SHAH [facility] Start: 09-02-2025 End: 09-02-2025 Initial preventive medicine new pt age 18-39yrs Carrington BASILIO Work Phone: [facility] Internal Medicine [facility] Comment on above: Encounter to [facility] with new provider (Primary Dx); Cigarette nicotine dependence without complication; Asthma with COPD (HCC); Influenza vaccination declined; Encounter for screening examination for sexually transmitted disease; Obesity (BMI 30.0-34.9) Start: 08-28-2025 End: 08-29-2025 Telephone encounter Munira Iraheta NP Work Phone: [facility] Pulmonary [facility] Sleep Medicine [facility] Comment on above: Other ((2)SPIRIVA RE SPIMAT 2.5MCG SAMPLES/LOT# [id number] EXP: 09/18) Start: 08-28-2025 End: 08-28-2025 Office outpatient visit 25 minutes Munira Iraheta NP Work Phone: [facility] Pulmonary [facility] Sleep Medicine [facility] Comment on above: Moderate persistent asthma with exacerbation (Primary Dx); Seasonal allergies; Cigarette nicotine dependence without complication; Obesity (BMI 30-39.9); Personal history of DVT (deep vein thrombosis) Start: 08-28-2025 End: 08-28-2025 [facility] Start: 08-20-2025 End: 08-20-2025 Subsequent hospital visit by physician Lorena Shah MD Work Phone: [facility] Vascular Lab Comment on above: Arrived Start: 08-20-2025 End: 08-20-[address] [facility] Start: 08-20-2025 End: 08-20-2025 Office outpatient visit 25 minutes Delphine Miguel CNP Work Phone: [facility] Comment on above: Anxiety (Primary Dx) ; Bipolar 1 disorder (HCC); Severe cocaine use disorder (HCC); Severe opioid use disorder (HCC) Start: 08-20-2025 End: 08-20-2025 ambulatory [facility] Start: 08-15-2025 End: 08-15-2025 Office outpatient visit 40 minutes Lorena Shah MD Work Phone: [facility] Comment on above: Severe opioid use di sorder (HCC) (Primary Dx); Encounter to establish care with new provider; Bilateral lower extremity edema; History of deep vein thrombosis (DVT) of lower extremity; Anxiety; Depression, unspecified depression type; Severe cocaine use disorder (HCC); Tetrahydrocannabinol (THC) use disorder, moderate, dependence (HCC); Tobacco use disorder; Alcohol abuse Start: 08-15-2025 End: 08-15-[address] [facility] Start: 08-12-2025 End: 08-12-2025 Orders Only Lorena Shah MD Work Phone: [facility] Comment on above: Severe opioid use di sorder (HCC) (Primary Dx) Start: 07-23-2025 End: 07-24-2025 Orders Only Lorena Shah MD Work Phone: [facility] Start: 07-23-2025 End: 07-23-2025 ambulatory [facility] Start: 07-23-2025 End: 07-23-2025 Office outpatient visit 25 minutes Delphine Miguel CNP Work Phone: [facility] Comment on above: Bipolar 1 disorder ( HCC) (Primary Dx); Severe opioid use disorder (HCC); Severe cocaine use disorder (HCC); Anxiety Start: 07-22-2025 End: 07-22-2025 Orders Only Lorena Shah MD Work Phone: [facility] Comment on above: Encounter to [facility] (Primary Dx) Start: 07-18-2025 End: 07-18-2025 Office outpatient visit 25 minutes Lorena Shah MD Work Phone: [facility] Comment on above: Bilateral lower extr emity edema (Primary Dx); Severe opioid use disorder (HCC); Severe cocaine use disorder (HCC); Tetrahydrocannabinol (THC) use disorder, moderate, dependence (HCC); Depression, unspecified depression type; Anxiety Start: 07-18-2025 End: 07-18-[address] [facility] Start: 07-09-2025 End: 07-09-2025 ambulatory [facility] Start: 07-09-2025 End: 07-09-2025 Subsequent hospital visit by physician Abby Marie PA-C Work Phone: [facility] Pulm Function Test Comment on above: Moderate persistent asthma with exacerbation Start: 07-05-2025 End: 07-05-2025 Office outpatient new 45 minutes Abby Marie PA-C Work Phone: [facility] Pulmonary and Sleep Medicine [facility] Comment on above: Moderate persistent asthma with exacerbation (Primary Dx); Cigarette nicotine dependence without complication Start: 07-05-2025 End: 07-05-2025 ambulatory [facility] Start: 07-04-2025 End: 07-04-2025 Office outpatient visit 25 minutes Lorena Shah MD Work Phone: [facility] Comment on above: Severe opioid use di sorder (HCC) (Primary Dx); Encounter to [facility] Start: 07-04-2025 End: 07-04-[address] [facility] Start: 06-26-2025 End: 06-26-2025 Telephone encounter Lorena Shah MD Work Phone: [facility] Comment on above: Severe opioid use di sorder (HCC) Start: 06-24-2025 Non-patient / Non-visit Dr. Gifty Holden MD -[place] [facility] Work Phone: Start: 06-23-2025 ambulatory Mark Anthony Oliveira ility:[facility] Start: 06-23-2025 End: 06-25-2025 Evaluation and management of inpatient Dr. Mark Anthony Gregorio DO -Progressive Care Unit Work Phone: Start: 06-21-2025 End: 06-21-2025 Telephone encounter Lorena Shah MD Work Phone: [facility] Start: 06-18-2025 End: 06-18-2025 Telephone encounter Quinton Gomez DO Work Phone: [facility] [place] Start: 06-17-2025 End: 06-18-2025 Emergency department patient visit Joel Shepard DO Work Phone: [facility] ED Comment on above: Moderate persistent asthma with exacerbation (Primary Dx); Shortness of breath Start: 06-17-2025 End: 06-17-2025 Office outpatient new 60 minutes Lorena Shah MD Work Phone: [facility] Comment on above: Severe opioid use di sorder (HCC) (Primary Dx); Severe cocaine use disorder (HCC); Tetrahydrocannabinol (THC) use disorder, moderate, dependence (HCC); Tobacco use disorder; Alcohol abuse; Anxiety; Depression, unspecified depression type Start: 06-17-2025 End: 06-17-2025 [facility] Start: 06-13-2025 End: 06-13-2025 Emergency department patient visit No Primary Care Physician -Emergency Department Work Phone: Start: 06-04-2025 End: 06-04-2025 ambulatory [facility] Start: 06-04-2025 End: 06-04-2025 Subsequent hospital visit by physician Lorena Shah MD Work Phone: [facility] Addiction IOP Comment on above: Arrived Start: 06-03-2025 End: 06-03-2025 Telephone encounter Hao Corado MD Work Phone: [facility] Psychiatry Start: 05-28-2025 End: 05-28-2025 Telephone encounter Lorena Shah MD Work Phone: [facility] Comment on above: Appointment Start: 05-25-2025 End: 06-03-2025 [facility] Start: 05-25-2025 End: 05-25-2025 Emergency department patient visit LISA ALCALA MD [facility] Start: 05-22-2025 Non-patient / Non-visit Dr. Ivonne Sales [facility] Work Phone: Start: 05-21-2025 Non-patient / Non-visit Dr. Ivonne Sales [facility] Work Phone: Start: 05-20-2025 Non-patient / Non-visit Dr. Ivonne Sales [facility] Work Phone: Start: 05-19-2025 Non-patient / Non-visit Dr. Ruperto Lee [facility] Work Phone: Start: 05-18-2025 Non-patient / Non-visit Dr. Trae Brooks [facility] Work Phone: Start: 05-18-2025 ambulatory Trae Brooks Facility:[facility] Start: 05-18-2025 End: 05-22-2025 Evaluation and management of inpatient Dr. Trae Brooks [facility] Surgical 3 Work Phone: Start: 04-16-2025 End: 04-16-2025 Telephone encounter Nubia Bradford LPN [facility] Clinical Communication Comment on above: Hospital Follow-up Start: 04-15-2025 End: 04-15-2025 Telephone encounter Emelia RedMyrtle Rucker CUSTOMER SALES ADVISOR - INTERMEDIATE TEACHER Work Phone: [facility] [place] Start: 04-14-2025 End: 04-15-2025 ambulatory GIANCARLO YI [facility] Start: 04-14-2025 End: 04-15-2025 Evaluation and management of inpatient Vincent Huitron DO Work Phone: [facility] Medical Unit 4N Comment on above: Severe persistent as thma with exacerbation (Primary Dx) Start: 01-08-2025 End: 01-08-2025 Emergency department patient visit Giancarlo Batres MD Work Phone: [facility] ED Comment on above: Moderate persistent asthma with exacerbation (Primary Dx) Start: 10-18-2024 Emergency department patient visit Facility:[facility] Start: 10-17-2024 End: 10-17-2024 ambulatory Nimo Corral Facility:[facility] Start: 10-16-2024 End: 10-16-2024 Emergency department patient visit Arjun Lagunas Facility:[facility] Start: 03-23-2022 End: 03-23-2022 Emergency department patient visit [facility] Start: 07-05-2020 End: 07-05-2020 Emergency department patient visit Anca Almaguer Work Phone: [facility] Comment on above: Exacerbation of asth ma, unspecified asthma severity, unspecified whether persistent (Primary Dx) Start: 06-08-2020 End: 06-08-2020 Emergency department patient visit Anca Almaguer Work Phone: [facility] Comment on above: Exacerbation of asth ma, unspecified asthma severity, unspecified whether persistent (Primary Dx) Start: 04-29-2020 End: 04-29-2020 Emergency department patient visit Nimo Hughes Work Phone: [facility] Comment on above: Moderate persistent asthma with exacerbation (Primary Dx) Start: 11-11-2019 End: 11-12-2019 Emergency department patient visit David Granger MD Work Phone: [facility] Comment on above: Moderate persistent asthma with acute exacerbation (Primary Dx); Infiltrate of lower lobe of right lung present on imaging study Start: 12-07-2017 End: 12-07-2017 Emergency department patient visit ALVARO BLACK Facility:B Start: 10-06-2017 End: 10-07-2017 Emergency department patient visit WESLEY BELTRAN Facility:[facility] Start: 06-09-2017 End: 06-09-2017 Emergency department patient visit SILVIO ALCALA Facility:[facility] Start: 06-06-2017 End: 06-06-2017 Emergency department patient visit WESLEY BELTRAN Facility:[facility] Start: 11-04-2016 End: 11-05-2016 Ambulatory LEXY OZUNA Facility:[facility] Procedures Date Procedure Procedure Detail Performing Clinician Start: 08-20-2025 Dup-scan xtr veins complete bilateral study Lorena Shah MD Work Phone: Start: 07-23-2025 Comprehensive metabo lic panel Lorena Shah MD Work Phone: Start: 07-23-2025 End: 07-23-2025 Thyrotropin [Units/volume] in Serum or Plasma Lorena Shah MD Work Phone: Start: 07-09-2025 Brncdilat rspse spmt ry pre&post-brncdilat admn Abby Marie PA-C Work Phone: Start: 06-25-2025 Estimated creatinine clearance No Primary Care Physician Start: 06-23-2025 Gram stain microscopy N o Primary Care Physician Start: 06-23-2025 Nucleic acid assay No P rimary Care Physician Start: 06-23-2025 SARS-CoV-2, Influenz a & RSV (PCR) No Primary Care Physician Start: 06-23-2025 D-dimer assay, quantitative No Primary Care Physician Comment on above: NORMAL D-Dimer level (<0.50) indicates no DVT or PE. Start: 06-23-2025 Plain chest X-ray No Pr imary Care Physician Start: 06-18-2025 Blood gases any combination ph pco2 po2 co2 hco3 Joel Shepard DO Work Phone: Start: 06-17-2025 Radiologic exam ches t single view Joel Shepard DO Work Phone: Start: 06-17-2025 Blood gases any combination ph pco2 po2 co2 hco3 Joel Shepard DO Work Phone: Start: 06-17-2025 End: 06-18-2025 Basic metabolic panel calcium total Joel Shepard DO Work Phone: Start: 06-17-2025 SARS-COV-2, FLU A/B, AND RSV COMBO Joel Shepard DO Work Phone: Start: 06-13-2025 Urnls dip stick/tabl et reagent auto microscopy No Primary Care Physician Start: 06-13-2025 Plain chest X-ray No Pr imsaint paul Care Physician Start: 06-13-2025 Estimated creatinine clearance [...] Care Physician Start: 04-15-2025 Blood gases any combination ph pco2 po2 co2 hco3 Prabhjot Foote MD Work Phone: Start: 04-14-2025 Procalcitonin (pct) Poli Easley Jason DO Work Phone: Start: 04-14-2025 Respiratory pathogen s DNA and RNA panel - Nasopharynx by DAJA with non-probe detection Quinton Gomez DO Work Phone: Start: 04-14-2025 SARS-COV-2, FLU A/B, AND RSV COMBO Vincent G Nesheim DO Work Phone: Start: 04-14-2025 Ecg routine ecg w/le ast 12 lds trcg only w/o i&r Vincent Amy Huitron DO Work Phone: Start: 04-14-2025 End: 04-14-2025 Basic metabolic panel calcium total Vincent G Elana DO Work Phone: Start: 04-14-2025 Radiologic exam ches t single view Vincent G Elana DO Work Phone: Start: 01-08-2025 Radiologic exam ches t single view Giancarlo Batres MD Work Phone: Start: 01-08-2025 Comprehensive metabo lic panel iGancarlo Batres MD Work Phone: Start: 01-08-2025 SARS-COV-2, [...] 04-29-2020 Basic metabolic pane l calcium total Niom Hughes Work Phone: Start: 04-29-2020 Blood count [...] for Adults (1 - 1-dose 75+ series) [facility] Start: 2041 Zoster Vaccines (1 of 2) Zoster Vacc roc (1 of 2) [facility] Start: 05-28-2030 Lipid panel Lipid Panel [facility] Start: 07-23-2026 Thyroid stimulating hormone measurement TSH Level [facility] Start: 05-26-2026 Depression Screening Depression Scre ening [facility] Start: 03-03-2026 End: 03-03-2026 Patient encounter procedure 03/03/2026 1:20 PM EDT Office Visit [facility] Internal Medicine [facility] [address] [facility] [address] [place] [address] Carrington Saldana PA [address] [facility] [address] [place] [address] [facility] Start: 12-26-2025 End: 12-26-2025 Patient encounter procedure 12/26/2025 11:00 AM EST Office Visit [facility] Pulmonary and Sleep [facility] [address] [place] [address] Munira Iraheta NP [address] [place] [address] [facility] Pulmonary and Sleep Medicine [facility] Start: 12-05-2025 Depression Monitoring Depression Mon itoring [facility] Start: 09-18-2025 End: 09-18-2025 Patient encounter procedure 09/18/2025 9:30 AM EST Office Visit [facility] [address] [facility] [address] [place] [address] Delphine Major, LOUISE - INTERMEDIATE TEACHER [address] [facility] [address] [place] [address] [facility] Start: 09-12-2025 End: 09-12-2025 Patient encounter procedure 09/12/2025 12:30 PM EST Office Visit [facility] [address] [facility] [address] [place] [address] Lorena Shah MD [address] [facility] [address] [place] [address] [facility] Behavioral Health [facility] Start: 09-02-2025 End: 09-02-2025 Patient encounter procedure 09/02/2025 2:20 PM EST Office Visit [facility] Internal Medicine [facility] [address] [facility] [address] [place] [phone] Carrington Saldana PA [address] [facility] [address] [place] [address] [facility] Internal Medicine [facility] Start: 08-28-2025 End: 08-28-2025 Patient encounter procedure 08/28/2025 10:30 AM EST Office Visit [facility] Pulmonary and Sleep Medicine [facility] [address] [place] [address] Munira Iraheta NP [address] [place] [address] [facility] Pulmonary and Sleep Medicine [facility] Start: 08-20-2025 End: 08-20-2025 Patient encounter procedure 08/20/2025 11:00 AM EDT Office Visit [facility] [address] [phone] Delphine Major APRN - MEIR [address] [facility] [address] [place] [address] [facility] Behavioral [facility] Start: 08-15-2025 End: 08-15-2025 Patient encounter procedure 08/15/2025 1:00 PM EDT Office Visit [facility] Behavioral [facility] [address] [facility] [address] [place] [phone] Lorena Shah MD [address] [facility] [address] [place] [address] [facility] Start: 07-23-2025 End: 07-23-2026 Hepatitis 1996 panel - Serum Hepatitis panel, acute Lab Routine Bipolar 1 disorder (HCC) Expected: 07/23/2025 (Approximate), Expires: 07/23/2026 [facility] [employer] Work Phone: Comment on above: Expected: 07/23/2025 (Approximate), Expires: 07/23/2026 Start: 07-23-2025 End: 07-23-2026 Thyrotropin [Units/volume] in Serum or Plasma TSH Lab Routine Bipolar 1 disorder (HCC) Expected: 07/23/2025 (Approximate), Expires: 07/23/2026 [facility] Comment on above: Expected: 07/23/2025 (Approximate), Expires: 07/23/2026 Start: 07-23-2025 End: 07-23-2025 Patient encounter procedure 07/23/2025 10:00 AM EDT Office Visit [facility] [address] [facility] [address] [place] [phone] Delphine Major, CUSTOMER SALES ADVISOR - INTERMEDIATE TEACHER [address] [facility] [address] [place] [address] [facility] Start: 07-22-2025 End: 07-22-2026 CBC panel - Blood by Automated count CBC Lab Routine Encounter to establish care Expected: 07/22/2025 (Approximate), Expires: 07/22/2026 [facility] [employer] Work Phone: Comment on above: Expected: 07/22/2025 (Approximate), Expires: 07/22/2026 Start: 07-22-2025 End: 07-22-2026 Comprehensive metabolic 1998 panel - Serum or Plasma Comprehensive metabolic panel Lab Routine Encounter to establish care Expected: 07/22/2025 (Approximate), Expires: 07/22/2026 [facility] Comment on above: Expected: 07/22/2025 (Approximate), Expires: 07/22/2026 Start: 07-22-2025 End: 07-22-2026 Hepatitis 1996 panel - Serum Hepatitis panel, acute Lab Routine Encounter to establish care Expected: 07/22/2025 (Approximate), Expires: 07/22/2026 [facility] Comment on above: Expected: 07/22/2025 (Approximate), Expires: 07/22/2026 Start: 07-22-2025 End: 07-22-2026 [place] Lab Routine Encounter to establish care Expected: 07/22/2025 (Approximate), Expires: 07/22/2026 [facility] Comment on above: Expected: 07/22/2025 (Approximate), Expires: 07/22/2026 Start: 07-22-2025 End: 07-22-2025 Patient encounter procedure 07/22/2025 10:00 AM EDT Office Visit [facility] [address] [facility] [address] [place] [address] Delphine Major, CUSTOMER SALES ADVISOR - INTERMEDIATE TEACHER [address] [facility] [address] [place] [address] [facility] Start: 07-18-2025 End: 07-18-2025 Patient encounter procedure 07/18/2025 1:00 PM EDT Office Visit [facility] [address] [facility] [address] [place] [address] Lorena Shah MD [address] [facility] [address] [place] [address] [facility] Start: 07-09-2025 End: 07-09-2025 Patient encounter procedure 07/09/2025 10:00 AM EDT Appointment [facility] [address] [place] [phone] Abby Marie PA-C [address] [address] [facility] Start: 07-05-2025 End: 07-05-2026 ALLERGEN, REGION 5 RESPIRATORY PANEL ALLERGEN, REGION 5 RESPIRATORY PANEL Lab Routine Moderate persistent asthma with exacerbation Expected: 07/05/2025 (Approximate), Expires: 07/05/2026 [facility] Work Phone: Comment on above: Expected: 07/05/2025 (Approximate), Expires: 07/05/2026 Start: 07-05-2025 End: 07-05-2026 CBC W Auto Differential panel - Blood CBC auto differential Lab Routine Moderate persistent asthma with exacerbation Expected: 07/05/2025 (Approximate), Expires: 07/05/2026 [facility] Comment on above: Expected: 07/05/2025 (Approximate), Expires: 07/05/2026 Start: 07-05-2025 End: 07-05-2025 Patient encounter procedure 07/05/2025 11:40 AM EDT Office Visit [facility] Pulmonary [facility] Sleep [facility] [address] [place] [address] Abby Marie PA-C [address] [place] [phone] [facility] Pulmonary [facility] Sleep [facility] Start: 07-04-2025 End: 07-04-2026 CBC panel - Blood by Automated count CBC Lab Routine Encounter to establish care Expected: 07/04/2025 (Approximate), Expires: 07/04/2026 [facility] Work Phone: Comment on above: Expected: 07/04/2025 (Approximate), Expires: 07/04/2026 Start: 07-04-2025 End: 07-04-2026 Comprehensive metabolic 1998 panel - Serum or Plasma Comprehensive metabolic panel Lab Routine Encounter to establish care Expected: 07/04/2025 (Approximate), Expires: 07/04/2026 [facility] [employer] Comment on above: Expected: 07/04/2025 (Approximate), Expires: 07/04/2026 Start: 07-04-2025 End: 07-04-2026 Hepatitis 1996 panel - Serum Hepatitis panel, acute Lab Routine Encounter to establish care Expected: 07/04/2025 (Approximate), Expires: 07/04/2026 [facility] Comment on above: Expected: 07/04/2025 (Approximate), Expires: 07/04/2026 Start: 07-04-2025 End: 07-04-2026 HIV 1/2 ANTIGEN/ANTIBODY, 4TH GEN W/RFL,SCREENING ([facility]) HIV 1/2 Antigen/Antibody, 4th Gen w/rfl, screening ([facility]) Lab Routine Encounter to establish care Expected: 07/04/2025 (Approximate), Expires: 07/04/2026 [facility] Comment on above: Expected: 07/04/2025 (Approximate), Expires: 07/04/2026 Start: 07-04-2025 End: 07-04-2026 [place] Lab Routine Encounter to establish care Expected: 07/04/2025 (Approximate), Expires: 07/04/2026 [facility] Comment on above: Expected: 07/04/2025 (Approximate), Expires: 07/04/2026 Start: 07-04-2025 End: 07-04-2025 Patient encounter procedure 07/04/2025 11:00 AM EDT Office Visit [facility] [address] [facility] [address] [place] [address] Lorena Shah MD [address] [facility] [address] [place] [address] [facility] Start: 06-25-2025 Patient discharge [facility] Start: 06-24-2025 COVID-19 Vaccine ( season) COVID-19 Vaccine ( season) [facility] Start: 06-24-2025 Influenza vaccination [facility] Start: 06-24-2025 Provision of activit y privileges [facility] Start: 06-23-2025 Respiratory microbia l culture Respiratory Culture [facility] Start: 06-23-2025 Following clinical pathway protocol [facility] Start: 06-23-2025 Ambulation without limitation [facility] Start: 06-23-2025 Assessment of risk o f venous thromboembolism [facility] Start: 06-23-2025 Inhalation therapy procedure [facility] Start: 06-23-2025 Insertion of cathete r into peripheral vein [facility] Start: 06-23-2025 Oxygen therapy [facility] Start: 06-23-2025 Providing care accor ding to standard [facility] Start: 06-23-2025 Referral to service [facility] Start: 06-23-2025 [facility] Start: 06-23-2025 Hospital admission, emergency, from emergency room, medical nature [facility] Start: 06-23-2025 Respiratory pathogen s DNA and RNA panel - Respiratory specimen by DAJA with probe detection [facility] Start: 06-23-2025 Admission procedure [facility] Start: 06-23-[address] [facility] Start: 06-23-2025 [facility] Start: 06-17-2025 End: 06-17-2025 Patient encounter procedure 06/17/2025 12:00 PM EDT Office Visit [facility] [address] [facility] [address] [place] [address] Lorena Shah MD [address] [facility] [address] [place] [address] [facility] Start: 06-13-2025 [facility] Start: 06-13-2025 Chest 1 View (Portable) Chest 1 View (Portable) [facility] Start: 06-13-2025 XR Chest Single view [facility] Start: 06-04-2025 End: 06-04-2025 Patient encounter procedure 06/04/2025 1:00 PM EDT Appointment [facility] [address] [place] [address] Lorena Shah MD [address] [facility] [address] [place] [address] [facility] Start: 05-22-2025 Patient discharge [facility] Start: 05-21-2025 Following clinical pathway protocol [facility] Start: 05-21-2025 Bacteria identified in Urine by Culture Urine Culture [facility] Start: 05-21-2025 [facility] Start: 05-20-2025 Inhalation therapy procedure [facility] Start: 05-18-2025 Assessment using assessment scale [facility] Start: 05-18-2025 End: 05-18-2025 [facility] Start: 05-18-2025 Assessment of risk o f venous thromboembolism [facility] Start: 05-18-2025 Notification of physician [facility] Start: 05-18-2025 Vital signs measurements [facility] Start: 05-18-2025 Hospital admission, emergency, from emergency room, medical nature [facility] Start: 05-18-2025 Admission procedure [facility] Start: 05-18-2025 Patient referral to dietitian [facility] Start: 04-17-2025 End: 04-17-2025 Patient encounter procedure 04/17/2025 10:10 AM EDT Office Visit [facility] [place] [address] [place] [phone] Tal Davila, CUSTOMER SALES ADVISOR - INTERMEDIATE TEACHER [address] [place] [address] [facility] Start: 06-24-2024 COVID-19 Vaccine ( season) COVID-19 Vaccine ( season) [facility] Start: 06-24-2024 Influenza vaccination Influenza Vacc ine (#1) [facility] Start: 2021 Screening for malign ant neoplasm of cervix [facility] Start: 06-24-2020 Influenza vaccination Flu vaccine (# 1) [place], [place] Start: 11-27-2019 End: 11-27-2019 Patient encounter procedure 11/27/2019 Office Visit Family Medicine Monika Layne MD [address] [place] [address] [phone] [facility] Start: 11-19-2019 End: 11-12-2020 XR CHEST STANDARD (2 VW) XR CHEST STANDARD (2 VW) Imaging Routine Infiltrate of lower lobe of right lung present on imaging study Expected: 11/19/2019, Expires: 11/12/2020 [facility] Work Phone: Comment on above: Expected: 11/19/2019 , Expires: 11/12/2020 Start: 06-24-2019 Influenza vaccination Flu vaccine (# 1) [facility] Work Phone: Start: 01-12-2012 Cervical cancer screen Cervical canc er screen [facility] Work Phone: Start: 01-12-2012 Screening for malign ant neoplasm of cervix [facility] Start: 2010 DTaP/Tdap/Td Vaccine s (1 - Tdap) DTaP/Tdap/Td Vaccines (1 - Tdap) [facility] Start: 2010 Hepatitis A Vaccines (1 of 2 - Risk 2-dose series) Hepatitis A Vaccines (1 of 2 - Risk 2-dose series) [facility] Start: 2010 Hepatitis B Vaccines (1 of 3 - 19+ 3-dose series) Hepatitis B Vaccines (1 of 3 - 19+ 3-dose series) [facility] Start: 2010 Pneumococcal Vaccine : Pediatrics (0 to 5 Years) and At-Risk Patients (6 to 49 Years) (1 of 2 - PCV) Pneumococcal Vaccine: Pediatrics (0 to 5 Years) and At-Risk Patients (6 to 49 Years) (1 of 2 - PCV) [facility] Start: 2009 Hepatitis C screening Hepatitis C Sc reening [facility] Start: 2006 HIV screen HIV screen [facility] Work Phone: Start: 2006 HIV screening HIV screen Manisha Phan [facility] [place], [place] Start: 08-13-2004 Varicella vaccination Varicell a Vaccines (1 of 2 - 13+ 2-dose series) [facility] Start: 07-17-2004 DTaP/Tdap/Td Vaccine s (6 - Tdap) DTaP/Tdap/Td Vaccines (6 - Tdap) [facility] Start: 01-12-2004 Varicella vaccination Varicell a Vaccines (1 of 2 - 13+ 2-dose series) [facility] Start: 2003 Depression Screening Depression Scre ening [facility] Start: 2002 DTaP/Tdap/Td vaccine (6 - Tdap) DTaP/Tdap/Td vaccine (6 - Tdap) [facility] Work Phone: Start: 1997 Pneumococcal 0-64 ye ars Vaccine (1 of 1 - PPSV23) Pneumococcal 0-64 years Vaccine (1 of 1 - PPSV23) [facility] Work Phone: Start: 01-12-1992 MMR Vaccines (1 of 1 - Standard series) MMR Vaccines (1 of 1 - Standard series) [facility] Start: 01-12-1992 Varicella vaccine (1 of 2 - 2-dose childhood series) Varicella vaccine (1 of 2 - 2-dose childhood series) [facility] Work Phone: Start: 1991 HIV screening HIV Screening [facility] Start: 1991 Lipid panel Lipid Panel [facility] Start: 1991 Thyroid stimulating hormone measurement TSH Level [facility] Complete PFT pre and post bronchodilator with FENO Complete PFT pre and post bronchodilator with FENO PFT Routine Moderate persistent asthma with exacerbation 07/09/2025 10:56 AM EDT [facility] Work Phone: EKG 12 Lead [facility] [place] HHN Treatment [facility] Work Phone: Comment on above: 0800, 1200, 1600, 20 00 (respiratory use only) until discontinued starting 04/29/2020 Every 4hr while awak e until discontinued starting 11/12/2019 0600, 1000, 1400, 18 00, 2200 until discontinued starting 11/11/2019 Microscopic urinalysis [facility] Organism count, microscopic method [facility] Patient Education [facility] Work Phone: Patient referral [facility] Work Phone: End: 11-11-2019 Pulse Oximetry Spot Check Pulse Oximetry Spot Check Respiratory Care Routine One Time for 1 Occurrences starting 11/11/2019 until 11/11/2019 [facility] Work Phone: Comment on above: One Time for 1 Occur rences starting 11/11/2019 until 11/11/2019 Troponin T.cardiac [Mass/volume] in Serum or Plasma by High sensitivity method [facility] Urine microscopy: epithelial cells [facility] Urine microscopy: re d cells [facility] White blood cell count [facility] Immunizations Immunization Date Immunization Notes Care Provider Tresa peña 07-13-2016 influenza, injectabl e, quadrivalent, preservative free No Primary Care Physician [facility] 07-13-2016 influenza virus vaccine, unspecified formulation Lorena Shah MD Work Phone: [facility] 10-15-2014 influenza, seasonal, injectable, preservative free No Primary Care Physician [facility] 08-26-2008 influenza, injectabl e, quadrivalent, preservative free No Primary Care Physician [facility] 08-26-2005 influenza, injectabl e, quadrivalent, preservative free No Primary Care Physician [facility] 08-18-2004 influenza, injectabl e, quadrivalent, preservative free No Primary Care Physician [facility] 07-16-2004 hepatitis B vaccine, pediatric or pediatric/adolescent dosage No Primary Care Physician [facility] 07-16-2004 measles, mumps and rubella virus vaccine No Primary Care Physician [facility] 07-16-2004 TD(adult) unspecifie d formulation No Primary Care Physician [facility] 06-12-1999 hepatitis B vaccine, pediatric or pediatric/adolescent dosage No Primary Care Physician [facility] 05-12-1999 hepatitis B vaccine, pediatric or pediatric/adolescent dosage No Primary Care Physician [facility] 03-05-1996 diphtheria, tetanus toxoids and acellular pertussis vaccine No Primary Care Physician [facility] 03-05-1996 trivalent poliovirus vaccine, live, oral No Primary Care Physician [facility] 07-22-1992 diphtheria, tetanus toxoids and acellular pertussis vaccine No Primary Care Physician [facility] 07-22-1992 trivalent poliovirus vaccine, live, oral No Primary Care Physician [facility] 04-21-1992 haemophilus influenz ae type b vaccine, PRP-T conjugate No Primary Care Physician [facility] 04-21-1992 measles, mumps and rubella virus vaccine No Primary Care Physician [facility] 1991 diphtheria, tetanus toxoids and acellular pertussis vaccine No Primary Care Physician [facility] 1991 haemophilus influenz ae type b vaccine, PRP-T conjugate No Primary Care Physician [facility] 1991 haemophilus influenz ae type b vaccine, PRP-T conjugate No Primary Care Physician [facility] 1991 diphtheria, tetanus toxoids and acellular pertussis vaccine No Primary Care Physician [facility] 1991 trivalent poliovirus vaccine, live, oral No Primary Care Physician [facility] 1991 diphtheria, tetanus toxoids and acellular pertussis vaccine No Primary Care Physician [facility] 1991 haemophilus influenz ae type b vaccine, PRP-T conjugate No Primary Care Physician [facility] 1991 trivalent poliovirus vaccine, live, oral No Primary Care Physician [facility] Payers Date Payer Category Payer Medicaid O [employer] O[employer] [id number] 2024 Medicaid [id number] 2024 Self-pay [id number] 2019 [facility] xxxxxxxxxxx 2019-Present [phone] CLAIMS DEPARTMENT [address] [place] [address] xxxxxxxxxxx [id number] 2019 Medicaid [id number] 2017 Medicaid [id number] 1990 Unknown [id number] Unknown [id number] Unknown [id number] Unknown [id number] Unknown [id number] Unknown [id number] Unknown [id number] Unknown [id number] Unknown [id number] Unknown [id number] Unknown [id number] Unknown [id number] Unknown [id number] Unknown [id number] Unknown [id number] Social History Date Type Detail Facility Start: 11-11-2019 End: 01-08-2025 Tobacco smoking status MDIS Current every day smoker [employer] Work Phone: Start: 11-11-2019 End: 06-13-2025 Cigarettes smoked current (pack per day) - Reported [employer] Work Phone: History of tobacco use Chews Tobacco [facility] Work Phone: Start: 11-11-2019 End: 09-02-2025 Alcohol intake Current drinker of alcohol (finding) [employer] Work Phone: Start: 02-28-2018 Alcohol Comment 2-3 shots/day intermittently [employer] Work Phone: Start: 1990 Sex Assigned At Not on file [employer] Work Phone: Exposure to SARS-CoV -2 (event) Unable to assess [employer], [place] Start: 06-08-2020 End: 07-05-2020 Tobacco smoking status NHIS Former smoker [employer], [employer] Start: 06-08-2020 End: 01-08-2025 Tobacco use and exposure Current user [employer] [facility], [place] Exposure to SARS-CoV -2 (event) Not sure [employer] Start: 03-23-2022 Tobacco smoking status NHIS Unknown if ever smoked [facility] Work Phone: Start: 04-16-2019 None [facility] Start: 04-16-2019 With Family [facility] Start: 07-12-2020 Cigarettes [facility] Start: 1990 Sex Assigned At Female [facility] History of tobacco use Cigarette Smoker S [facility] Start: 01-08-2025 End: 06-13-2025 Alcohol Use Disorder Identification Test - Consumption [AUDIT-C] [facility] Frequency of Alcohol Consumption Not on file [facility] [employer] Start: 03-26-2011 End: 05-24-2022 Sex Female (finding) [facility] [employer] Has the [employer], or [employer] threatened to shut off services in your home in past 12Mo No [facility] How often to you hav e a drink containing alcohol? Never [facility] [employer] (I/We) worried petros er (my/our) food would run out before (I/we) got money to buy more. Never true [facility] [employer] Start: 09-24-2019 Tobacco smoking status Never smoked tobacco (finding) [facility] Sexual Orientation [facility] Has the [employer], oil, or water [employer] threatened to shut off services in your home in past 12Mo Yes [facility] Are you now , , , , never or living with a partner? Living with partner [facility] How often to you hav e a drink containing alcohol? Monthly or less [facility] How many standard dr inks containing alcohol do you have on a typical day? 1 or 2 [facility] How often do you hav e 6 or more drinks on 1 occasion? Less than monthly [facility] How hard is it for y ou to pay for the very basics like food, housing, medical care, and heating Somewhat hard [facility] Do you feel stress - tense, restless, nervous, or anxious, or unable to sleep at night because your mind is troubled all the time - these days [OSQ] Very much [facility] (I/We) worried bassemabram er (my/our) food would run out before (I/we) got money to buy more. Sometimes true [facility] Start: 07-19-2025 Gender identity Identifies as female gender (finding) [facility] Start: 07-19-2025 Sexual orientation Heterosexual (finding) [facility] Goals Date Patient Goal Desired Activity /State Personal health goal Functional Status Date Assessment Result Facility 06-25-2025 Functional status Ambulates;Back to bed [facility] Work Phone: 06-04-2025 Patient Health [facility] ionnaire 2 item (PHQ-2) [Reported] [facility] 06-04-2025 PHQ-9 quick depressi on assessment panel [Reported.PHQ] [facility] 05-22-2025 Functional status Ambulates;Up a d armando;[employer] [facility] Work Phone: 04-15-2025 Drug Abuse Screening Test-10 [DAST-10] [facility] Mental Status Date Assessment Result Facility 06-25-2025 Cognitive function Voice/Name [facility] Work Phone: 06-13-2025 Cognitive function Level Of Cons ciousness Awake;Alert;Appropriate;Follow s Commands [facility] Work Phone: 05-22-2025 Cognitive function Voice/Name [facility] Work Phone: 03-23-2022 Cognitive function Level Of Cons ciousness Awake;Alert;Appropriate [facility] Work Phone: Clinical Notes 10-18-2024 to 09-02-2025 [facility] - 09/02/2025 2:20 PM ESTPatient InstructionsTelephone Encounter - Kenyetta Luo - 08/28/2025 4:01 PM ESTTelephone Encounter - Kenyetta Luo - 08/28/2025 4:01 PM EST Note Date & Type Note Facility 09-02-2025 History of Present illness Narrative Images from the original note were not included. [facility] - [address] [id number] Carine Barba is a 35 y.o. female who presents for Establish Care (Patient states that she is having some swelling in her left foot. States that it started 2 months ago on and off. ) Assessment/Plan 1. Encounter to establish care with new provider (Z76.89) Patient presents to establish care. Comprehensive history obtained and physical examination performed. Labs reviewed including HIV, HCV, hepatic panel, hemoglobin A1C, lipids, and TSH. Referral placed to [facility] for cervical cancer screening. Referral placed to weight management for obesity and weight concerns. Patient provided with resource for additional recovery support through [facility]. 2. Cigarette nicotine dependence without complication (F17.210) Chronic stable Patient smokes at least one pack per day and expresses desire to quit. Given history of severe asthma with COPD and previous medically induced coma, smoking cessation is critical. - Prescribed nicotine gum 2mg every 2 hours while awake (8 tablets per day), 240 count with 11 refills for one year smoking cessation program - Instructed patient not to smoke while using nicotine gum and not to exceed every 2 hours dosing - Goal is to gradually reduce usage over time - Patient counseled on importance of smoking cessation given respiratory history 3. Asthma with COPD (HCC) (J44.89) - chronic, stable - Lung examination reveals wheezing bilaterally with mucus plug - Currently on Montelukast and Spiriva - Patient continues to smoke despite severe respiratory disease history including previous medically induced coma - Smoking cessation plan initiated as above - Continue current respiratory medications 4. Influenza vaccination declined (Z28.21) Patient declined influenza vaccination today. Other recommended vaccinations discussed including COVID, hepatitis A, pneumococcal vaccine, and tetanus shot. 5. Encounter for screening examination for sexually transmitted disease (Z11.3) Patient has not had Pap smear in years. Referral placed to [facility] for cervical cancer screening and gynecological examination. 6. Obesity (BMI 30.0-34.9) (E66.811) Chronic worsening - BMI 32 - Patient reports 50 lb weight gain from 155 lbs to 205 lbs - Reports discomfort, difficulty with movement, and impact on breathing - Reports watching diet without improvement - Exercise level reported as normal - Referral placed to weight management for comprehensive evaluation including diet counseling, exercise planning, and medication options - Patient counseled that weight management program can provide better options for treatment including potential pharmacotherapy Other Clinical Considerations: - Bilateral Lower Extremity Edema: - Patient reports bilateral leg swelling, right leg consistently worse - Currently on HCTZ (previously on Lasix) - 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, bilateral femur fractures, inverted knees, and compound fracture left leg - Recent ultrasound for DVT evaluation (within past 1-2 weeks) with no acute findings - No current blood thinners - History of DVT post-accident, treated successfully with Coumadin and subsequently discontinued - Hepatic panel reviewed with albumin 4.1, ruling out liver-related edema - Edema likely multifactorial related to previous trauma and nerve injury - Continue current diuretic therapy - Anxiety: - Patient reports anxiety is quite bad - Currently on Buspar which patient reports is not working - Patient to follow up with behavioral health provider Jade for medication adjustment - Substance Use Disorder: - Cocaine use disorder in remission, over 100 days clean (possibly close to 120 days) - Currently receiving Suboxone shots - Following with legal recovery specialist Allison with good progress - Patient reports feeling much better and happier since becoming clean - Provided resource for [facility] in [place] for additional support - Bipolar Disorder: - Currently on lithium and Seroquel - [place] labs reviewed - Continue current medications - Following with behavioral health - Medication Management: - Continue lithium - Continue Suboxone shots - Continue HCTZ - Continue Seroquel - Continue Montelukast - Continue Spiriva - Buspar efficacy to be reassessed by behavioral health provider Carine was seen today for establish care. Diagnoses and all orders for this visit: Encounter to establish care with new provider (Primary) - [facility] Cigarette nicotine dependence without complication - nicotine polacrilex (Nicorette) 2 MG gum; Chew 1 each (2 mg) every 2 hours as needed for smoking cessation. Asthma with COPD (HCC) Influenza vaccination declined Encounter for screening examination for sexually transmitted disease - [facility] ACCESS ANALYST; Future Obesity (BMI 30.0-34.9) [facility]; Future Follow up in about 6 months (around 03/02/2026). Subjective History of Present Illness Carine Barba, a 35-year-old female, presents to establish care with a new provider. She reports bilateral lower extremity swelling, with the right leg consistently more affected than the left. She states some days she wakes up and the swelling is bad, other days it is okay. She denies any swelling in her belly. She reports significant weight gain, stating she weighed 155 lbs before starting treatment and now weighs 205 lbs. She describes feeling very uncomfortable and notes the weight gain affects her breathing. She reports trying to watch what she eats but states it does not seem to help. She has a history of respiratory illness with asthma exacerbation requiring medically induced coma. She reports a history of cocaine use disorder, stating she was snorting cocaine and never used needles. She is currently over 100 days clean, possibly close to 120 days. She is receiving Suboxone shots for substance use disorder treatment. She reports smoking at least a pack of cigarettes per day and acknowledges she really should not smoke given her asthma history. She states she is a constant wheezer. She expresses interest in smoking cessation aids such as gum or patches. She reports her anxiety has been quite bad and states that [employer] is not working for her. She plans to discuss this further with her behavioral health provider Jade. She has a history of trauma with bilateral femur fractures, inverted knees bilaterally, severed a nerve and the femoral artery in the right leg, and compound fracture of the left leg. Following her accident, she developed two blood clots in her right leg and was treated with Coumadin, which successfully broke down the blood clots. She was subsequently taken off Coumadin. She denies being on blood thinners currently. She reports having had an ultrasound for blood clots about a week or two prior to this visit. She denies abdominal pain, ascites, jaundice, or prolonged vomiting. She denies shortness of breath and denies any color changes in her legs. She reports she has not seen an [facility] in years and has not had a Pap smear in years. She had chickenpox as a child. She is unsure when she last received a tetanus shot but thinks it may have been last year. She declined influenza vaccination today. She reports feeling a whole lot better since becoming clean and states she is happier than when she was using. She acknowledges she used to isolate herself a lot. I obtained verbal consent from the patient and/or patient's guardian to use ambient listening technology during this encounter before the ambient technology was engaged. Review of Systems 12 systems reviewed and negative except as stated in the HPI. Objective BP 106/73 Pulse 81 Ht 5' 7" (1.702 m) Wt 206 lb (93.4 kg) SpO2 97% BMI 32.26 kg/m Physical Exam Vitals and nursing note reviewed. Constitutional: General: She is awake. Appearance: She is not ill-appearing or toxic-appearing. Cardiovascular: Rate and Rhythm: Normal rate and regular rhythm. Heart sounds: Normal heart sounds. Heart sounds not distant. No murmur heard. Pulmonary: Effort: No tachypnea, bradypnea, accessory muscle usage, prolonged expiration or respiratory distress. Breath sounds: No stridor, decreased air movement or transmitted upper airway sounds. No decreased breath sounds, wheezing, rhonchi or rales. Abdominal: General: Abdomen is flat. Bowel sounds are normal. There is no distension or abdominal bruit. There are no signs of injury. Palpations: Abdomen is soft. There is no shifting dullness, fluid wave, mass or pulsatile mass. Tenderness: There is no abdominal tenderness. There is no guarding or rebound. Negative signs include Capellan's sign and Rovsing's sign. Hernia: No hernia is present. Neurological: General: No focal deficit present. Mental Status: She is alert and oriented to person, place, and time. GCS: GCS eye subscore is 4. GCS verbal subscore is 5. GCS motor subscore is 6. Cranial Nerves: Cranial nerves 2-12 are intact. Sensory: Sensation is intact. Motor: Motor function is intact. Coordination: Coordination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 sublocade injection. [1] [2] [3] [facility] 07-05-2025 History of Present illness Narrative Pulmonary Follow-up [address] [place] [id number] Visit type: Established patient Reason for Visit: Hospital Follow-up (Asthma) History of Present Illness: [facility] Carine Barba is a 35 y.o. female patient being seen for hospital follow-up. She presented to the ER on 06/17 for an asthma attack. Patient arrives in respiratory distress speaking several word sentences and tachypneic. She is able to note that her child has been sick and she believes she is also come down with a respiratory virus. Her symptoms quickly progressed over a couple hours today. She has been intubated for asthma in the past. She was given high-dose Methylpred, magnesium IV, [...] high-dose steroids, pulmonology referral, strict return precautions. Discharged home with Augmentin and prednisone. She feels better today. Breathing is back to baseline. Denies SOB. She is still coughing, no longer expectorating sputum. Wheezes frequently, this is baseline for her. Compliant with Dulera. Uses Albuterol 2-3 times daily. Uses her nebulizer a few times per week. Currently smoking approx <1/2 ppd. She has never had PFT's. Triggers include pet dander (cats in particular), viral illness, grass pollen. Home medications: PRN Albuterol MDI, PRN Albuterol nebs, Dulera 200 Tobacco use: 1/2 ppd x 14 years [facility]A Chest 01/08/2025-- No CT evidence of pulmonary embolism. Bronchial wall thickening with areas of mucous plugging within the distal bronchi and scattered ill-defined centrilobular micronodules secondary to infectious/inflammatory bronchitis/bronchiolitis. Multifocal patchy groundglass opacities throughout both lungs most prominent in the LEFT upper lobe likely secondary to atypical/viral pneumonia. PFTs: none on file [facility] Dyspnea Scale: Grade Description of Breathlessness 0 I only get breathless with strenuous exercise. 1 I get short of breath when hurrying on level ground or walking up a slight hill. 2 On level ground, I walk slower than people of the same age because of breathlessness, or have to stop for breath when walking at my own pace. 3 I stop for breath after walking about 100 yards or after a few minutes on level ground. 4 I am too breathless to leave the house or I am breathless when dressing. Past Medical History: Medical History[1] Social History: Social History[2] Family History: Family History[3] ROS: Review of Systems Constitutional: Negative for chills, fatigue and fever. HENT: Positive for congestion. Respiratory: Positive for cough and wheezing. Negative for chest tightness and shortness of breath. Cardiovascular: Negative for chest pain, palpitations and leg swelling. Gastrointestinal: Negative for diarrhea, nausea and vomiting. Psychiatric/Behavioral: Negative for sleep disturbance. All other systems reviewed and are negative. Medications: @MEDCMED@ Allergies: Allergies[4] Vital Signs: BP 116/74 Pulse 74 Ht 5' 7" (1.702 m) Wt 194 lb 6.4 oz (88.2 kg) LMP (LMP Unknown) SpO2 95% BMI 30.45 kg/m Physical Exam: Physical Exam Constitutional: Appearance: Normal appearance. She is normal weight. HENT: Head: Normocephalic and atraumatic. Eyes: Extraocular Movements: Extraocular movements intact. Pupils: Pupils are equal, round, and reactive to light. Cardiovascular: Rate and Rhythm: Normal rate and regular rhythm. Heart sounds: Normal heart sounds. Pulmonary: Effort: Pulmonary effort is normal. No accessory muscle usage, prolonged expiration or respiratory distress. Breath sounds: Normal breath sounds. No decreased breath sounds, wheezing, rhonchi or rales. Musculoskeletal: Right lower leg: No edema. Left lower leg: No edema. Neurological: Mental Status: She is alert and oriented to person, place, and time. Mental status is at baseline. Psychiatric: Mood and Affect: Mood normal. Speech: Speech normal. Behavior: Behavior normal. Impression/Plan Diagnosis Plan 1. Moderate persistent asthma with exacerbation Recently completed Prednisone and Augmentin for acute exacerbation. Symptoms now improved. Asthma appears poorly controlled at baseline. Will need full work-up. - Continue mometasone-formoterol (Dulera 200) 200-5 MCG/ACT inhaler - Continue PRN albuterol (2.5 MG/3ML) 0.083% nebulizer solution - Continue PRN albuterol 108 (90 Base) MCG/ACT inhaler - ALLERGEN, REGION 5 RESPIRATORY PANEL - CBC auto differential - Complete PFT pre and post bronchodilator with FENO - Add cetirizine (ZyrTEC) 10 MG tablet 2. Cigarette nicotine dependence without complication 7 pack year history, currently smoking 1/2 ppd. Discussed that smoking cessation is hickman to preventing decline in lung function and reduce airway inflammation. She is not interested in NRT at this time. Follow up in about 6 weeks (around 08/16/2025) for asthma f/u, with PFT's. [1] Past Medical History: Diagnosis Date Anxiety Asthma History of blood clots Multiple fractures bilateral, clavicle, hand, L4-L5 verterbral bodiess [2] Social History Socioeconomic History Marital status: Single [...] 30 min Stress: Stress Concern Present (06/13/2025) [facility] - Occupational Stress Questionnaire Feeling of Stress : Very much Social Connections: Moderately Integrated (06/13/2025) Social Connection and Isolation Panel [NHANES] Frequency of Communication with Friends and Family: Twice a week Frequency of Social Gatherings with Friends and Family: Once a week Attends Baptism Services: Never Active Member of Clubs or [...] 0 Homeless in the Last Year: No [3] No family history on file. [4] Allergies Allergen Reactions Cefadroxil Swelling Other Reaction(s): GI Upset Splotchy face documented in this encounter [facility] 07-05-2025 Instructions Ebonie Palafox MA - 07/05/2025 11:40 AM EDT YOUR APPOINTMENT TODAY WAS WITH THE [facility] LUNG NODULE CLINIC, COPD CLINIC, PULMONARY AND SLEEP MEDICINE OFFICE. PLEASE CALL OUR OFFICE AT [phone] for our [place] office location or [phone] for our [place] location, IF YOU HAVE NOT RECEIVED YOUR TEST RESULTS 7 DAYS AFTER TESTING IS COMPLETED. PLEASE REMEMBER TO REQUEST REFILLS AT YOUR OFFICE VISITS. PHONE/FAX REQUESTS REQUIRE 48-72 HOURS FOR RESPONSE. A FRIENDLY REMINDER COPAYS ARE DUE AT TIME OF SERVICE. THANK YOU. Our Patients Are Important! We want to improve and you can help. After your visit we want you to feel: Listened to, Respected and have your health care explained. You may receive a survey asking you about your visit. Please complete the survey. We will use your feedback to make improvements. COVID-19 VACCINATION INFORMATION: . [phone] [email or web address].[email or web address]/[email or web address]/VACCINE [facility] Central Scheduling [phone] [facility] Sleep Scheduling [phone] documented in this encounter [facility] 07-04-2025 History of Present illness Narrative Images from the original note were not included. ADDICTION MEDICINE PROGRESS NOTE Patient: Carine Barba Problem List: Active Problems: There are no active Hospital Problems. SUBJECTIVE Seen and examined. Doing well since last visit. Notes she did have to go to the ED since last visit 2/2 her asthma. Notes she does not have a PCP at this time and would like to establish with one given her asthma and "I have never taken care of myself because I have always just said F it and ignored my problems because I was on drugs". Notes some wheezing periodically which is minimal today. Also requesting referral to psych given she is on lithium and has no follow up. Since last visit has tolerated her sublocade well. No relapse, cravings, use dreams or use thoughts. No SI/HI or AVH. No other concerns. Review of Systems A 14 system ROS was collected and is negative unless otherwise noted above. OBJECTIVE Physical Exam Constitutional: Appearance: Normal appearance. HENT: [...] Skin is not jaundiced. Neurological: Mental Status: She is alert and oriented to person, place, and time. Cranial Nerves: No cranial nerve deficit. Psychiatric: Mood and Affect: Mood normal. Behavior: Behavior normal. Medications Home Meds Current Outpatient Medications Medication Instructions albuterol 108 (90 Base) MCG/ACT inhaler 2 puffs, Inhalation, Every 4 hours PRN albuterol 2.5 mg, Nebulization, Every 6 hours PRN buprenorphine ER (Sublocade) 300 MG/1.5ML injection Inject 1.5 mL (1 each) under the skin every 14 days for 2 doses as sublocade initiation buprenorphine-naloxone (Suboxone) 8-2 MG per sublingual film [...] times daily PRN Scheduled Inpatient Meds Scheduled Meds[1] PRN Inpatient Meds PRN Meds[2] Continuous Inpatient Infusions Continuous Meds[3] Recent Imaging XR chest 1 view Result Date: 06/17/2025 Patient Name: CARINE BARBA : 1990 [facility]#: [id number] Exam Date/Time: 06/17/2025 22:30 Procedure: XR CHEST 1 VIEW Ordering Provider: SHEPARD KEVIN Reason For Exam: DYSPNEA EXAM: XR Chest, 1 View CLINICAL INDICATION: DYSPNEA TECHNIQUE: Frontal view of the chest. COMPARISON: April 14, 2025 and multiple prior exams. FINDINGS: LUNGS AND PLEURAL SPACES: Unremarkable. No consolidation. No pneumothorax. HEART: Unremarkable. No cardiomegaly. MEDIASTINUM: Unremarkable. Normal mediastinal contour. BONES/JOINTS: Unremarkable. No acute fracture. No acute cardiopulmonary process. Report Dictated on Electronically Signed By: Turner Miranda MD Electronically Signed Date/Time: 06/17/2025 10:48 PM EDT Labs No results found for this or any previous visit (from the past 24 hours). ASSESSMENT & PLAN Severe opioid use disorder [...] JESU and ETOH use volunteered by patient Sublocade today Follow up plans for addiction management discussed with patient: Labs today Refer to IM to establish care Sublocade #1 today LOT: [id number] EXP: 12/2025 SN: [id number] I discussed the risks, side effects and benefits of SQ sublocade with the Pt. Pt verbalized understanding of the risks, side effects and benefits of Sublocade injection. Pt was injected with Sublocade 300mg SQ in the clinic. Pt was appropriately monitored after injection given. Pt tolerated the SQ injection without acute issues and discharged to home. Prior to discharge, Pt was informed to immediately notify the ADM office of any swelling, erythema, severe pain, shortness of breath or chest pain over the next 72 hours or to call 911 for any emergencies - Pt verbalized understanding and agrees with this plan. Anxiety Depression Takes gabapentin 600mg PO TID Takes [place] 600mg PO at bedtime Takes Seroquel 100mg PO QID Takes Seroquel 400mg PO QHS Does not follow w/ Mental Health as she was not referred to provider after last admission No SI/HI or AVH Psych referral to [facility] psych F/U in 2 weeks or sooner as needed A total of 30 minutes were spent reviewing the patient's records, evaluating the patient, entering orders, coordinating care with the treatment team, and creating this note. 30 minutes above is outside of time for sublocade injection. [1] [2] [3] documented in this encounter [facility] 07-04-2025 Note ADDICTION MEDICINE PROGRESS NOTE Patient: Carine Barba __ Problem List: Active Problems: There are no active Hospital Problems. SUBJECTIVE Seen and examined. Doing well since last visit. Notes she did have to go to the ED since last visit 2/2 her asthma. Notes she does not have a PCP at this time and would like to establish with one given her asthma and "I have never taken care of myself because I have always just said F it and ignored my problems because I was on drugs". Notes some wheezing periodically which is minimal today. Also requesting referral to psych given she is on lithium and has no follow up. Since last visit has tolerated her sublocade well. No relapse, cravings, use dreams or use thoughts. No SI/HI or AVH. No other concerns. Review of Systems A 14 system ROS was collected and is negative unless otherwise noted above. OBJECTIVE Physical Exam Constitutional: Appearance: Normal appearance. HENT: [...] Skin is not jaundiced. Neurological: Mental Status: She is alert and oriented to person, place, and time. Cranial Nerves: No cranial nerve deficit. Psychiatric: Mood and Affect: Mood normal. Behavior: Behavior normal. Medications Home Meds Current Outpatient Medications Medication Instructions albuterol 108 (90 Base) MCG/ACT inhaler 2 puffs, Inhalation, Every 4 hours PRN albuterol 2.5 mg, Nebulization, Every 6 hours PRN buprenorphine ER (Sublocade) 300 MG/1.5ML injection Inject 1.5 mL (1 each) under the skin every 14 days for 2 doses as sublocade initiation buprenorphine-naloxone (Suboxone) 8-2 MG per sublingual film [...] times daily PRN Scheduled Inpatient Meds Scheduled Meds[1] PRN Inpatient Meds PRN Meds[2] Continuous Inpatient Infusions Continuous Meds[3] Recent Imaging XR chest 1 view Result Date: 06/17/2025 [facility] 1990 [id number] Exam Date/Time: 06/17/2025 22:30 Procedure: XR CHEST 1 VIEW Ordering Provider: SHEPARD KEVIN Reason For Exam: DYSPNEA EXAM: XR Chest, 1 View CLINICAL INDICATION: DYSPNEA TECHNIQUE: Frontal view of the chest. COMPARISON: April 14, 2025 and multiple prior exams. FINDINGS: LUNGS AND PLEURAL SPACES: Unremarkable. No consolidation. No pneumothorax. HEART: Unremarkable. No cardiomegaly. MEDIASTINUM: Unremarkable. Normal mediastinal contour. BONES/JOINTS: Unremarkable. No acute fracture. No acute cardiopulmonary process. Report Dictated on Electronically Signed By: Turner Miranda MD Electronically Signed Date/Time: 06/17/2025 10:48 PM EDT Labs No results found for this or any previous visit (from the past 24 hours). ASSESSMENT & PLAN Severe opioid use disorder [...] JESU and ETOH use volunteered by patient Sublocade today Follow up plans for addiction management discussed with patient: Labs today Refer to IM to establish care Sublocade #1 today LOT: [id number] EXP: 12/2025 SN: [id number] I discussed the risks, side effects and benefits of SQ sublocade with the Pt. Pt verbalized understanding of the risks, side effects and benefits of Sublocade injection. Pt was injected with Sublocade 300mg SQ in the clinic. Pt was appropriately monitored after injection given. Pt tolerated the SQ injection without acute issues and discharged to home. Prior to discharge, Pt was informed to immediately notify the ADM of (more content not included)... [facility] 06-26-2025 Telephone encounter Note Patient called 06/26/25 Returning our call from last week, we had called to try to schedule appointment with Dr Shah. Insurance approved her injections. I was able to schedule patient for 07/04/25 patient did state that she would be out of Rx buprenorphine-naloxone (Suboxone) 8-2 MG per sublingual film Let patient know that I would send Dr Shah a message [facility] 06-26-2025 Miscellaneous Notes Patient called 06/26/25 Returning our call from last week, we had called to try to schedule appointment with Dr Shah. Insurance approved her injections. I was able to schedule patient for 07/04/25 patient did state that she would be out of Rx buprenorphine-naloxone (Suboxone) 8-2 MG per sublingual film Let patient know that I would send Dr Shah a message documented in this encounter [facility] 06-26-2025 Telephone encounter Note Last visit 06/17/25 Next visit 07/04/25 RX buprenorphine-naloxone (Suboxone) 8-2 MG per sublingual film Patient called returning our call about scheduling appointment. She has to set up transportation with insurance. We were scheduling for injection insurance approved [facility] 06-26-2025 Miscellaneous Notes Last visit 06/17/25 Next visit 07/04/25 RX buprenorphine-naloxone (Suboxone) 8-2 MG per sublingual film Patient called returning our call about scheduling appointment. She has to set up transportation with insurance. We were scheduling for injection insurance approved documented in this encounter [facility] 06-25-2025 Discharge summary [facility] 06-25-2025 Note [facility] Medical Records Department [address] [place] [address] Discharge Summary 06/25/25 1151 MR#: [id number] Acct: [id number] Name: CARINE BARBA Rep #: [id number] : 1990 35 From: Gifty Holden MD PCP: Care Physician,No Primary Status:DIS IN Location: [place] [address] Providers Date of Admission: 06/23/25 Date of Discharge: 06/25/25 Primary Care Physician: No Primary Care Phys Reason For Visit: ASTHMA EXACERBATION W/HYPOXIA AND CONCERN FOR CAP Diagnosis Discharge Diagnosis (1) Asthma: Status: Chronic Code(s): J45.909 - Unspecified asthma, uncomplicated (2) Asthma, extrinsic with exacerbation: Status: Acute Code(s): J45.901 - Unspecified asthma with (acute) exacerbation Plan #Acute asthma exacerbation * Admitted with a complaint of shortness of breath and chest x-ray showed interstitial pulmonary densities in the lower lungs which was worse compared to x-ray on 06/13/2025 and may represent pulmonary edema or pneumonia. * WBC was 29.3 and is down to 19.3 today. Does have slight bilateral wheezing but she says she always has wheezing as a baseline. * On IV Solu-Medrol 40 mg every 8 * Sputum cultures showing normal respiratory placido. * on IV levofloxacin * Breathing treatments bronchodilators. Titrate oxygen to maintain saturation above 90%. #History of polysubstance abuse * Was recently admitted for opiate detox. Has a history of heroin, crack cocaine and marijuana use. Counseled to quit. #Nicotine dependence: Counseled to quit. Nicotine patch as needed DVT prophylaxis: Lovenox Medications at Discharge Home Medications albuterol sulfate 90 mcg/actuation aerosol inhaler (Ventolin HFA) 2 puff inhalation Q6H PRN shortness of breath or wheezing #6.7 grams 06/13/25 buprenorphine 8 mg-naloxone 2 mg sublingual film 1 ea sublingual BID detox 06/23/25 gabapentin 300 mg capsule 600 mg PO TID anxiety, restless legs 06/23/25 lithium carbonate 600 mg capsule 600 mg PO QHS mood swings 06/23/25 quetiapine 100 mg tablet 100 mg PO .qid anxiety 06/23/25 quetiapine 400 mg tablet 400 mg PO QHS help with sleep 06/23/25 albuterol sulfate 90 mcg/actuation breath activated powder inhaler 2 inh inhalation Q4H PRN shortness of breath or wheezing #1 ea 06/25/25 levofloxacin 500 mg tablet 500 mg PO DAILY #5 tabs 06/25/25 prednisone 20 mg tablet 40 mg (2 x 20 mg) PO DAILY #10 tabs 06/25/25 Hospital Course Operations None Procedures None Summary of Care Provided Minutes Spent on Discharge: 45 Hospital Course: Patient is a 35-year-old female with a past medical history as outlined including asthma who came into the ED on 06/23/2025 with complaint of shortness of breath and productive cough. She also had a history of polysubstance abuse and had been in this hospital in mid April for acute opioid detox. She says she had been sober since discharge and had been following up with 180. Her daughter went back to school a few weeks ago and says she picked up an upper respiratory illness. Patient and the rest of her family subsequently developed upper respiratory symptoms as well. She had a history of asthma and was on albuterol inhaler and nebulizer at home but had been using this more frequently than usual. She came into the ED was noted to be hypoxic at 88% on room air. She was also tachycardic with heart rate in the 110s. Chest x-ray showed interstitial pulmonary densities in the lower lungs slightly worsened compared to x-ray from 821. WBC was elevated at 29 with neutrophil predominance and CBC and BMP were otherwise benign. Procalcitonin was only minimally elevated. Troponins were negative. She was admitted and managed for acute exacerbation of asthma as well as probable pneumonia. She was started on breathing treatments and IV Solu-Medrol as well as IV Levaquin. Patient's breathing improved and she felt much better. She is not requiring any oxygen. Sputum cultures grew 4+ WBC and 4+ gram-positive cocci Staph aureus. Her shortness of breath improved and she felt much better. She was discharged home on 06/25/2025 on PO levofloxacin x 5 days. She is to follow up with her PCP with in 1-2 weeks. SHe was also discharged on PO prednisone 40mg daily x 5 days, and also given a script for her albuterol inhaler. She is to follow up with her PCP within 1-2 weeks. Patient seen and examined prior to discharge. She had no active complaints and had an uneventful night. Review of systems is otherwise negative. Labs and vitals reviewed. Home meds reviewed and reconciled. Physical Exam Const alert, oriented x3, no apparent distress, average body habitus and well nourished General Appearance: cooperative and comfortable HEENT normocephalic, head/scalp atraumatic, hearing grossly normal bilaterally, nasal mucous membranes and turbinates normal, moist oral mucous membranes and oropharynx normal (more content not included)... [facility] 06-24-2025 Progress note Note Date/Time June 24, 2025 3:04pm [facility] Medical Records Department [address] [place] [address] Progress Note 06/24/25 1447 MR#: [id number] Acct: [id number] Name: CARINE BARBA Rep #:[id number] : 1990 35 From: Gifty Holden MD PCP: Care Physician,No Primary Status :ADM IN Location: [place] [address] Subjective Subjective Patient seen and examined. She says she is feeling better. She feels her breathing has improved. She denies any coughing or chest pain, palpitations, dizziness, nausea vomiting or any other symptoms. Review of systems otherwise negative. She is on room air. Heart tachycardic with a heart rate of 112. Objective Data Objective Data Vital Signs: Vital Signs Temp Pulse Resp BP Pulse Ox O2 Del Method O2 Flow Rate 98.1 F 112 H 18 114/65 93 Room Air 2 06/24/25 14:27 06/24/25 14:27 06/24/25 14:27 06/24/25 14:27 06/24/25 14:27 06/24/25 14:27 06/24/25 08:52 Oxygen Flow Rate (L/min) 2 Oxygen Delivery Method Room Air Weight: 180 lb 8.937 oz Body Mass Index (BMI) 28.3 Intake & Output: Intake and Output for Last 24 Hours 06/22/25 06/23/25 06/24/25 23:59 23:59 23:59 Intake Total 254 / 614 730 / 730 Balance 254 / 614 730 / 730 Lab / Micro Data 06/24/25 05:06 06/24/25 05:06 Labs: Laboratory Results - last 24 hr 06/24/25 05:06: WBC 19.3 H, RBC 3.93 L, Hgb 13.0, Hct 37.8, MCV 96.2, MCH 33.1 H, MCHC 34.4, RDW Std Deviation 48.0 H, RDW Coeff of Emilia 13.5, Plt Count 283, MPV10.3, Sodium 134, Potassium 4.7, Chloride 99, Carbon Dioxide 22.3, Anion Gap 13,BUN 18, Creatinine 0.72, Estim Creat Clear Calc 121.18, Est GFR (MDRD) Non-Af 112, BUN/Creatinine Ratio 24.9 H, Glucose 176 H, Calcium 9.5 Micro: Microbiology 06/23/25 15:25 Sputum, Expectorated/Coughed Gram Stain - Final 06/23/25 15:25 Sputum, Expectorated/Coughed Respiratory Culture - Preliminary Appears to be normal respiratory placido. Further studies to follow. 06/23/25 15:05 Mucosa - Nasopharyngeal Respiratory Panel (PCR) - Final 06/23/25 10:17 Mucosa - Nose SARS-CoV-2, Influenza & RSV (PCR) - Final Physical Exam Const alert, oriented x3, no apparent distress and well nourished General Appearance: cooperative HEENT normocephalic, head/scalp atraumatic, moist oral mucous membranes and oropharynxnormal Eyes EOMs intact bilaterally Neck supple and no JVD Lymph Lymphatic: no lymphedema noted Resp Resp Narrative: Mildly diminished breath sounds bibasilarly. Bilateral mild wheezing. No crackles. On room air. Cardio regular rhythm, S1 normal heart sound, S2 normal heart sound and no murmurs Cardio Narrative: Tachycardic GI normal to inspection, nondistended, normoactive bowel sounds, soft to palpation,non-tender and non-distended Extremity normal capillary refill, no clubbing, cyanosis or edema and no calf tenderness General Extremity: no tenderness to palpation of joints or extremities Skin General Skin Exam: no breakdown Neuro no focal motor deficits and no sensory deficits noted Motor Exam: general weakness Psych thought process normal and cooperative Appearance: appropriate Assessment & Plan Assessment/Plan (1) Asthma: (2) Asthma, extrinsic with exacerbation: PLAN: Plan #Acute asthma exacerbation * Admitted with a complaint of shortness of breath and chest x-ray showed interstitial pulmonary densities in the lower lungs which was worse compared to x-ray on 06/13/2025 and may represent pulmonary edema or pneumonia. * WBC was 29.3 and is down to 19.3 today. Does have slight bilateral wheezing but she says she always has wheezing as a baseline. * On IV Solu-Medrol 40 mg every 8 * Sputum cultures showing normal respiratory placido. * on IV levofloxacin * Breathing treatments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 MD [id number] [place], [place] [id number] PCP - General 01/22/14 Casting Machine Adjuster Relationship Specialty Start Date End Date Aishwarya Ivory MD [address] [place], [place] [phone] PCP - General 01/22/14 Casting Machine Adjuster Relationship Specialty Start [place] [address] [place] [address] PCP - General 01/22/14 Team Status: Active Member Role/Relationship Status Dates No Primary Care Physician Primary Care Provider Active Team Status: Active Member Role/Relationship Status Dates No Primary Care Physician Primary Care Provider Active Start: May 18, 2025 Dr. Jeff Noe , DO Emergency Provider Active Start: May 18, 2025 Dr. Trae Brooks , DO Admit Provider Active Star t: May 18, 2025 Dr. Trae Brooks , DO Attending Provider Active Start: May 18, 2025 Team Status: Active Member Role/Relationship Status Dates No Primary Care Physician Primary Care Provider Active Start: May 18, 2025 Dr. Jeff Noe , DO Emergency Provider Active Start: May 18, 2025 Dr. Trae Brooks , Attending Provider Active Start: May 18, 2025 Team Status: Inactive Member Role/Relationship Status Dates No Primary Care Physician Primary Care Provider Active Start: May 18, 2025 End: May 22, 2025 Dr. Jeff Noe , DO Emergency Provider Active Start: May 18, 2025 End: May 22, 2025 Dr. Trae Brooks , Admit Provider Active Star t: May 18, [...] May 19, 2025 Dr. Trae Brooks , Admit Provider Active Star t: May 19, [...] S tart: May 22, 2025 Dr. Ivonne Salse , DO Other Provider Active Start : May 22, 2025 Dr. Ruperto Lee , DO Other Provider Active S tart: May 22, 2025 Casting Machine Adjuster Relationship Specialty Start Date End Date Aishwarya Ivory MD [address] [place] [id number] PCP - General 01/22/14 Casting Machine Adjuster Relationship Specialty Start Date End Date Aishwarya Ivory MD [address] [place] [id number] PCP - General 01/22/14 Casting Machine Adjuster Relationship Specialty Start Date End Date Aishwarya Ivory MD [address] [place] [id number] PCP - General 01/22/14 Team Status: Inactive Member Role/Relationship Status Dates No Primary Care Physician Primary Care Provider Active Start: June 13, 2025 End: June 13, 2025 Dr. Thang Davenport MD Emergency Provider Active Start: June 13, 2025 End: June 13, 2025 Casting Machine Adjuster Relationship Specialty Start Date End Date Asihwarya Ivory MD [address] [place] [id number] PCP - General 01/22/14 Casting Machine Adjuster Relationship Specialty Start Date End Date Aishwarya Ivory MD [address] [place] [id number] PCP - General 01/22/14 Team Status: Inactive Member Role/Relationship Status Dates No Primary Care Physician Primary Care Provider Active Start: June 13, 2025 End: June 13, 2025 Dr. Thang Davenport MD Attending Provider Active Start: June 13, 2025 End: June 13, 2025 Dr. Thang Davenport MD Emergency Provider Active Start: June 13, 2025 End: June 13, 2025 Team Status: Active Member Role/Relationship Status Dates No Primary Care Physician Primary Care Provider Active Start: June 23, 2025 Dr. Jeff Noe DO Emergency Provider Active Start: June 23, 2025 Dr. Mark Anthony Gregorio DO Admit Provider Active Start: June 23, 2025 Dr. Mark Anthony Gregorio DO Attending Provider Active Start: June 23, 2025 Team Status: Inactive Member Role/Relationship Status Dates No Primary Care Physician Primary Care Provider Active Start: June 23, 2025 End: June 25, 2025 Dr. Jeff Noe DO Emergency Provider Active Start: June 23, 2025 End: June 25, 2025 Dr. Mark Anthony Gregorio DO Admit Provider Active Start: June 23, 2025 End: June 25, 2025 Dr. Mark Anthony Gregorio DO Other Provider Active Start: June 23, 2025 End: June 25, 2025 Dr. Gifty Holden MD Attending Provider Active Start: June 23, 2025 End: June 25, 2025 Team Status: Active Member Role/Relationship Status Dates No Primary Care Physician Primary Care Provider Active Start: June 24, 2025 Dr. Jeff Noe DO Emergency Provider Active Start: June 24, 2025 Dr. Mark Anthony Gregorio DO Admit Provider Active Start: June 24, 2025 Dr. Mark Anthony Gregorio DO Other Provider Active Start: June 24, 2025 Dr. Gifty Holden MD Attending Provider Active Start: June 24, 2025 Dr. Gifty Holden MD Other Provider Active St art: June 24, 2025 Casting Machine Adjuster Relationship Specialty Start Date End Date Aishwarya Ivory MD [address] [place] [id number] PCP - General 01/22/14 Casting Machine Adjuster Relationship Specialty Start Date End Date Aishwarya Ivory MD [address] [place] [id number] PCP - General 01/22/14 Casting Machine Adjuster Relationship Specialty Start Date [place] Aishwarya Ivory [place] [id number] [place] [id number] PCP - General 01/22/14 Casting Machine Adjuster Relationship Specialty Start Date [place] Aishwarya Ivory [place] [id number] [place] [address], [place] [address] PCP - General 01/22/14 Casting Machine Adjuster Relationship Specialty Start Date End Date Aishwarya Ivory MD [address] [place] [address], [place] [address] PCP - General 01/22/14 Casting Machine Adjuster Relationship Specialty Start Date End Date Aishwarya Ivory MD [address] [place] [id number] PCP - General 01/22/14 Casting Machine Adjuster Relationship Specialty Start Date End Date Aishwarya Ivory MD [address] [place] [id number] PCP - General 01/22/14 Casting Machine Adjuster Relationship Specialty Start Date End Date Aishwarya Ivory MD [address] [place] [id number] PCP - General 01/22/14 Casting Machine Adjuster Relationship Specialty Start Date End Date Aishwarya Ivory MD [address] [place] [id number] PCP - General 01/22/14 Casting Machine Adjuster Relationship Specialty Start Date End Date Aishwarya Ivory MD [address] [place] [address], [place] [address] PCP - General 01/22/14 Casting Machine Adjuster Relationship Specialty Start Date End Date Aishwarya Ivory MD [address] [place] [address], [place] [address] PCP - General 01/22/14 Casting Machine Adjuster Relationship Specialty Start [place] [address] [place] [address] PCP - General 01/22/14 08/25/25 Casting Machine Adjuster Relationship Specialty Start Date End Date Billie Grady MD [address] [id number] PCP - General Internal Medicine 09/02/25 Carrington Saldana PA [address] [phone] Physician Soaking Pits Supervisor Physician Soaking Pits Supervisor 09/02/25 FOR RECORDS PERTAINING TO PATIENTS WHO ARE [...] BE BASED ON THE PRIMARY CLINICAL RECORDS. [email or web address] provides no warranty or guarantee of the accuracy or completeness of information in this document.
== END 2025-05-22 12:20 ==
LOC: ED 18:40 → MS3 05-19 07:18
PROVIDERS: Physician Assistant; Emergency Provider Emergency Medicine; Visit Provider Internal Medicine
DX: F11.13 Opioid abuse with withdrawal (principal); F14.10 Cocaine abuse, uncomplicated; F12.10 Cannabis abuse, uncomplicated; J45.909 Unspecified asthma, uncomplicated; F17.210 Nicotine dependence, cigarettes, uncomplicated; K59.00 Constipation, unspecified
CPT/HCPCS: 36415; 74177; 80048; 80307; 81001; 82077; 84703; 85025; 85027; 87086; 87088; 94640; 96374; 96376; 99221; 99283; 99406; Q9967; A4216; G0378

== ENCOUNTER 2025-06-13 12:20 | Emergency (ER) | payer MEDICAID, SELFPAY ==
[2025-06-13 12:20] VITALS: BP 116/73; PULSE 96; RESP 14; TEMP 36.7; O2SAT 98; BMI 31.9
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
--- NOTE | 2025-06-13 13:35 | RAD_ITS ---
PROCEDURE: CHEST 1 VIEW (PORTABLE) 06/13/2025 REASON FOR EXAM: DYSPNEA TECHNIQUE: Frontal view of the chest. COMPARISON: October 16, 2024 FINDINGS: Hardware: Plate and screws are seen involving the left clavicle. No hardware failure or loosening. No change. Heart: Normal Lungs: Clear. No pleural effusion or pneumothorax. Bones: The bones are unremarkable. RAD/Chest 1 View (Portable) IMPRESSION: No acute abnormality Reading Location: [id number]
[2025-06-13 13:36] LABS: Hematocrit 34.0 % (37-47); Hemoglobin 11.4 g/dL (12.0-15.0); Immature Granulocytes Count 0.030 X10^3/uL (0.0-0.0); Mean Corp Hgb Conc 33.5 g/dL (32-36); Mean Corpuscular Volume 98.8 fL (81-99); Mean Platelet Vol. 9.1 fl (6.2-12.0); NRBC Flagged by Analyzer 0 % (0-5); Platelet Count 260 K/mm3 (150-450); RBC Distribution Width CV 14.1 % (11.6-14.6); RBC Distribution Width SD 51.1 fl (35.1-43.9); Red Blood Count 3.44 M/mm3 (4.2-5.4); White Blood Count 10.0 K/mm3 (4.4-11.0)
[2025-06-13 13:50] LABS: Mucous, Urine 0 SEEN /hpf (<or=2+)
[2025-06-13 14:03] LABS: AST(SGOT) 23 U/L (<=31); Alanine Aminotransfer ALT/SGPT 65 U/L (<=34); Albumin, Serum 3.7 g/dL (3.5-5.0); Alkaline Phosphatase 63 U/L (35-104); Anion Gap 9 (5-15); BUN 13 mg/dL (4-19); BUN/Creat Ratio 18.5 RATIO (10-20); Bilirubin, Direct 0.12 mg/dL (0.00-0.30); Calcium,Total 8.4 mg/dL (7.6-11.0); Carbon Dioxide 26.2 mmol/L (21.0-32.0); Chloride 106 mmol/L (98-108); Estimated Creatinine Clearance 130.43 ml/min (50-250); Globulin 2.0 g/dL (2.2-4.2); Glucose 97 mg/dL (70-99); Potassium 3.9 mmol/L (3.3-5.1); Pro- Brain NATRIURETIC PEPTIDE 113 pg/mL (<=450)
[2025-06-13 14:20] VITALS: BP 114/78; PULSE 64; RESP 18; O2SAT 98
[2025-06-13 14:45] LABS: Color, Urine Straw (Yellow); Glucose, Dipstick Normal (Normal); Ketone-Dipstick Negative (Negative); Leukocyte Esterase-Dipstick Negative /ul (Negative); Nitrite-Dipstick Negative (Negative); Occult Blood-Urine Negative /ul (Negative); Protein-Dipstick Negative (Negative); Specific Gravity, Urine 1.010 (1.002-1.030); Urine Bilirubin Dipstick Negative (Negative)
[2025-06-13 14:57] VITALS: BP 128/78; PULSE 64; RESP 18; TEMP 36.6; O2SAT 99
[2025-06-13 16:11] LABS: Red Blood Cells-Urine 0-5 SEEN /hpf (0-5)
[2025-06-13 16:12] LABS: Squamous Epithelial Cells - UA 0-5 SEEN /hpf (5-10)
== END 2025-06-13 14:58 | disposition home or self-care (01) ==
PROVIDERS: Physician Assistant; Emergency Provider Emergency Medicine; Visit Provider Emergency Medicine
DX: R60.0 Localized edema (principal); R19.00 Intra-abdominal and pelvic swelling, mass and lump, unspecified site; J45.909 Unspecified asthma, uncomplicated; F17.210 Nicotine dependence, cigarettes, uncomplicated; Z79.899 Other long term (current) drug therapy
CPT/HCPCS: 71045; 80048; 80076; 81001; 83880; 85025; 99283; A4216

== ENCOUNTER 2025-06-23 10:10 | Inpatient (IN) | payer MEDICAID, SELFPAY ==
[2025-06-23] VITALS (13 sets, daily range): BP systolic 113–125; BP diastolic 69–93; PULSE 89–117; RESP 17–28; TEMP 36.1–36.9; O2SAT 85–98; BMI 28.3
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
--- NOTE | 2025-06-23 10:16 | EKG12_ITS ---
Test Reason : SOB Blood Pressure : */* mmHG Vent. Rate : 102 BPM Atrial Rate : 102 BPM P-R Int : 144 ms QRS Dur : 88 ms QT Int : 364 ms P-R-T Axes : 78 77 45 degrees QTcB Int : 474 ms Sinus tachycardia Nonspecific T wave abnormality Abnormal ECG Confirmed by Alexx Rhodes ([id number]), food editor PAM REY ([id number]) on 06/25/2025 10:36:28 AM Referred By: Confirmed By: Alexx Rhodes
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
[2025-06-23 10:28] LABS: Hematocrit 41.7 % (37-47); Hemoglobin 14.3 g/dL (12.0-15.0); Immature Granulocytes Count 0.140 X10^3/uL (0.0-0.0); Mean Corp Hgb Conc 34.3 g/dL (32-36); Mean Corpuscular Volume 97.0 fL (81-99); Mean Platelet Vol. 9.3 fl (6.2-12.0); NRBC Flagged by Analyzer 0 % (0-5); POSITIVE DIFFERENTIAL YES; Platelet Count 336 K/mm3 (150-450); RBC Distribution Width CV 13.6 % (11.6-14.6); RBC Distribution Width SD 48.0 fl (35.1-43.9); Red Blood Count 4.30 M/mm3 (4.2-5.4); White Blood Count 29.0 K/mm3 (4.4-11.0)
[2025-06-23 10:36] LABS: Differential Indicated SCAN CRITERIA MET
[2025-06-23] MEDS: Epi Pen (EQUIV) 0.3 MG Syringe IM (10:37)
[2025-06-23] MEDS: Magnesium Sulfate 2 GM in Dextrose 5%-Water (100mL Bag) 100 ML IV (10:45)
--- OUTSIDE RECORDS SUMMARY | 2025-06-23 10:48 | XMS RPT_ITS | CCD ---
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 Radiologic infiltrate of lung Episodic Other lower respiratory disease (1 source) Other abnormalities of breathing; Translations: [Other abnormalities of breathing] Onset: 10-19-2024 Episodic Other lower respiratory disease (1 source) Shortness of breath; Translations: [Shortness of breath] Onset: 10-18-2024 Episodic Other nutritional; endocrine; and metabolic disorders (1 source) Overweight; Translations: [Overweight] Onset: 10-19-2024 Episodic Phlebitis; thrombophlebitis and thromboembolism (7 sources) Personal history of other venous thrombosis and embolism; Translations: [H/O: Deep vein thrombosis] Onset: 11-04-2016 12-17-2015 Episodic Residual codes; unclassified (1 source) Tobacco use; Translations: [Tobacco use] Onset: 10-19-2024 Episodic Sprains and strains (3 sources) Sprain of anterior cruciate ligament of left knee, initial encounter; Translations: [SPRAIN ACL LEFT KNEE INI] Onset: 11-04-2016 Episodic Unclassified (4 sources) Readiness finding 05-18-2025 Results Test Name Value Interpretation Reference Range Facility 36on 06-21-2025 36 LVM 06/21/25 Tried to call patient to schedule appointment for her sublocade injection with Dr Shah. Advised patient to contact the office so we can get her scheduled. Normal [facility] BLOOD GAS, VENOUS (SWR AND S HC)on 06-18-2025 AMOUNT OF OXYGEN 0 Normal [facility] Comment on above: Performed By: #### L [id number] ####Chief Wellness Officer: CALE LEON ([phone])[facility] (SWRL[facility])[address] [place] [address] BASE EXCESS (MMOL/L) IN VENOUS BLOOD 1.0 mmol/L Normal -3.0-3.0 [facility] Comment on above: Performed By: #### L [id number] ####Chief Wellness Officer: CALE LEON ([phone])[facility] (SWRLAB)[address] [place] [address] [place] CARBON DIOXIDE (MM HG) IN VENOUS BLOOD 46 mm(Hg) Normal 40-55 [facility] Comment on above: Performed By: #### L [id number] ####Chief Wellness Officer: CALE LEON ([phone])[facility] (SWRLAB)[address] [place] [address] [place] CO2 [Moles/Vol] 28.0 mmol/L Normal 24.0-28.0 [facility] Comment on above: Performed By: #### L [id number] ####Chief Wellness Officer: CALE LEON ([id number])[facility] (SWRLAB)[address] [place] [address] [place] HCO3 (Bld) [Moles/Vol] 26.7 mmol/L Normal 23.0-27.0 [facility] Comment on above: Performed By: #### L [id number] ####Chief Wellness Officer: CALE LEON ([phone])[facility] (SWRLAB)[address] [place] [address] OXYGEN (MM HG) IN VENOUS BLOOD 52 mm(Hg) Normal [facility] Comment on above: Performed By: #### L [id number] ####Chief Wellness Officer: CALE LEON ([phone])[facility] (SWRLAB)[address] [place] [address] [place] OXYGEN SATURATION (%) IN VENOUS BLOOD 85.0 % High 60.0-80.0 [facility] Comment on above: Performed By: #### L [id number] ####Chief Wellness Officer: CALE LEON ([id number])[facility] (SWRL[facility])[address] [place] [address] [place] pH (Bld) 7.372 [pH] Normal 7.310-7.410 [facility] Comment on above: Performed By: #### L [id number] ####Chief Wellness Officer: CALE LEON ([phone])[facility] ([facility])[address] [place] [address] SOURCE OF OXYGEN None (Room Air) Normal [facility] Comment on above: Performed By: #### L [id number] ####Chief Wellness Officer: CALE LEON ([phone])[facility] (RLAB)[address] [place] [address] ED Nursing Noteon 06-18-2025 ED Nursing Note Patient walked to bathroom and back to room with Pulse Oximetry holding 92-94% room air. Patient states she feels better than she did when she arrived to ER. Patient was able too converse while walking without difficulty. Normal [facility] LACTIC ACID WITH REFLEXon Lactate [Moles/Vol] 2.1 mmol/L Normal 0.5-2.2 [facility] Comment on above: Performed By: #### L [id number] #### Chief Wellness Officer: CALE LEON ([id number]) [facility] (RLAB) [address] [place] [address] Laboratory - Chemistry and C hemistry - challengeon 06-18-2025 Lactate [Moles/Vol] 2.1 mmol/L 0.5 - 2. 2 mmol/L [facility] CO2 [Moles/Vol] 28 mmol/L 24.0 - 28.0 mmol/L [facility] HCO3 (Bld) [Moles/Vol] 26.7 mmol/L 23.0 - 27.0 mmol/L [facility] Oxygen (Bld) [Partial pressure] 52 mm[Hg] mm(Hg) [facility] pH (Bld) 7.372 [pH] 7.310 - 7.410 [facility] No Panel Informationon 06-18 Interpretation and review of laboratory results Normal [facility] Amount Of Oxygen 0 [facility] BASE EXCESS 1 mmol/L -3.0 - 3.0 mmol/L [facility] Interpretation and review of laboratory results Abnormal [facility] pCO2 46 [facility] Source Of Oxygen None (Room Air) [facility] Vital signson 06-18-2025 Oxygen saturation in Blood 85 % High 60.0 - 80.0 % [facility] BASIC METABOLIC PANELon 05-25 Anion gap [Moles/Vol] 10 mmol/L Normal 3-13 [facility] Comment on above: Performed By: #### L [id number] #### Chief Wellness Officer: CALE LEON ([phone]) [facility] (SWRL[facility]) [address] [place] [address] [place] Calcium [Mass/Vol] 9.2 mg/dL Normal 8.4-10.2 [facility] Comment on above: Performed By: #### L [id number] #### Chief Wellness Officer: CALE LEON ([id number]) [facility] (SWRLAB) [address] [place] [address] [place] Chloride [Moles/Vol] 104 mmol/L Normal 98-107 [facility] Comment on above: Performed By: #### L [id number] #### Chief Wellness Officer: CALE LEON ([id number]) [facility] (SWRLAB) [address] [place] [address] [place] CO2 [Moles/Vol] 27 mmol/L Normal 22-29 [facility] Comment on above: Performed By: #### L [id number] #### Chief Wellness Officer: CALE LEON ([id number]) [facility] (SWRLAB) [address] [place] [address] [place] Creatinine [Mass/Vol] 1.13 mg/dL High 0.57-1.11 [facility] Comment on above: Performed By: #### L [id number] #### Chief Wellness Officer: CALE LEON ([phone]) [facility] (SWRLAB) [address] [place] [address] GLOMERULAR FILTRATION RATE ML/MIN/1.73 SQ M.PREDICTED 65.6 mL/min/1.73m*2 Normal >60.0 [facility] Comment on above: Result Comment: Calc ulation based on the Chronic Kidney Disease Epidemiology Collaboration (CKD-EPI) equation refit without adjustment for race Performed By: #### L [id number] #### Chief Wellness Officer: CALE LEON ([phone]) [facility] (SW[facility]) [address] [place] [address] [place] Glucose [Mass/Vol] 68 mg/dL Low 74-100 [facility] Comment on above: Performed By: #### L [id number] #### Chief Wellness Officer: CALE LEON ([id number]) [facility] (SWRL[place]) [address] Potassium [Moles/Vol] 3.5 mmol/L Normal 3.5-5.1 [facility] Comment on above: Result Comment: [facility] potassium values may be up to 0.5 mmol/L lower than serum values. Performed By: #### L [id number] #### Chief Wellness Officer: CALE LEON ([id number]) [facility] (SWRLAB) [address] [place] [address] [place] Sodium [Moles/Vol] 141 mmol/L Normal 136-145 [facility] Comment on above: Performed By: #### L [id number] #### Chief Wellness Officer: CALE LEON ([id number]) [facility] (SW[facility]) [address] [place] [address] [place] Urea nitrogen [Mass/Vol] 27 mg/dL High 8-21 [facility] Comment on above: Performed By: #### L [id number] #### Chief Wellness Officer: CALE LEON ([phone]) [facility] (SWRL[facility]) [address] [place] [address] BLOOD GAS, VENOUS (SWR AND S HC)on 06-17-2025 AMOUNT OF OXYGEN 0 Normal [facility] Comment on above: Performed By: #### L [id number] ####Chief Wellness Officer: CALE LEON ([phone])[facility]Bar [facility] (SWRLAB)[address] [place] [address] [place] BASE EXCESS (MMOL/L) IN VENOUS BLOOD 2.0 mmol/L Normal -3.0-3.0 [facility] Comment on above: Performed By: #### L [id number] ####Chief Wellness Officer: CALE LEON ([id number])[facility] (SWRLAB)[address] [place] [address] [place] CARBON DIOXIDE (MM HG) IN VENOUS BLOOD 58 mm(Hg) High 40-55 [facility] Comment on above: Performed By: #### L [id number] ####Chief Wellness Officer: CALE LEON ([id number])[facility] (SWRLAB)[address] [place] [address] [place] CO2 [Moles/Vol] 30.0 mmol/L High 24.0-28.0 [facility] Comment on above: Performed By: #### L [id number] ####Chief Wellness Officer: CALE LEON ([id number])[facility] (SWRL[facility])[address] [place] [address] [place] HCO3 (Bld) [Moles/Vol] 28.5 mmol/L High 23.0-27.0 [facility] Comment on above: Performed By: #### L [id number] ####Chief Wellness Officer: CALE LEON ([id number])[facility] (SWRLAB)[address] [place] [address] [place] OXYGEN (MM HG) IN VENOUS BLOOD 25 mm(Hg) Normal [facility] Comment on above: Performed By: #### L [id number] ####Chief Wellness Officer: CALE LEON ([id number])[facility] (SWRL[facility])[address] [place] [address] [place] OXYGEN SATURATION (%) IN VENOUS BLOOD 39.0 % Low 60.0-80.0 [facility] Comment on above: Performed By: #### L [id number] ####Chief Wellness Officer: CALE LEON ([id number])[facility] [place] (SWRLAB)[address] [place] [address] pH (Bld) 7.298 [pH] Low 7.310-7.410 [facility] Comment on above: Performed By: #### L [id number] ####Chief Wellness Officer: CALE ELON ([id number])[facility] [place] (SWRLAB)[address] [place] [address] SOURCE OF OXYGEN None (Room Air) [facility] Comment on above: Performed By: #### L [id number] ####Chief Wellness Officer: CALE LEON ([id number])[facility] (SWRL[facility])[address] [place] [address] Basic metabolic 1998 panelon 06-17-2025 Anion gap [Moles/Vol] 10 mmol/L 3 - 13 mmol/L [facility] Calcium [Mass/Vol] 9.2 mg/dL 8.4 - 10. 2 mg/dL [facility] Chloride [Moles/Vol] 104 mmol/L 98 - 10 7 mmol/L [facility] CO2 [Moles/Vol] 27 mmol/L 22 - 29 mmol/L [facility] Creatinine [Mass/Vol] 1.13 mg/dL High 0.57 - 1.11 mg/dL [facility] GFR/1.73 sq M.predicted (S/P/Bld) [Vol rate/Area] 65.6 mL/min - PINF [facility] Comment on above: Calculation based on the Chronic Kidney Disease Epidemiology Collaboration (CKD-EPI) equation refit without adjustment for race Glucose [Mass/Vol] 68 mg/dL Low 74 - 100 mg/dL [facility] Interpretation and review of laboratory results Abnormal [facility] Potassium [Moles/Vol] 3.5 mmol/L 3.5 - 5.1 mmol/L [facility] Comment on above: Plasma potassium phillip ues may be up to 0.5 mmol/L lower than serum values. Sodium [Moles/Vol] 141 mmol/L 136 - 145 mmol/L [facility] Urea nitrogen [Mass/Vol] 27 mg/dL High 8 - 21 mg/d L [facility] CBC W Auto Differential pane l (Bld)on 06-17-2025 Basophils (Bld) [#/Vol] 0 10*3/uL 0.0 - 0.2 10*3/uL [facility] Basophils/100 WBC (Bld) 0.3 % 0.0 - 2.0 % [facility] Eosinophils (Bld) [#/Vol] 0.3 10*3/uL 0.0 - 0.5 10*3/uL [facility] Eosinophils/100 WBC (Bld) 2.3 % 0.0 - 6.0 % [facility] Erythrocyte distribution width (RBC) [Ratio] 14.1 % 11.5 - 15.0 % [facility] Hematocrit (Bld) [Volume fraction] 37.7 % 35.0 - 47.0 % [facility] Hemoglobin (Bld) [Mass/Vol] 12.7 g/dL 11.7 - 16.0 g/dL [facility] Immature granulocytes (Bld) [#/Vol] 0.1 10*3/uL High NINF - 0.1 10*3/uL [facility] Immature granulocytes/100 WBC (Bld) 0.4 % 0.0 - 2.0 % [facility] Interpretation and review of laboratory results Abnormal [facility] Lymphocytes (Bld) [#/Vol] 1.4 10*3/uL 1.0 - 4.3 10*3/uL [facility] Lymphocytes/100 WBC (Bld) 9.8 % Low 15.0 - 45.0 % [facility] MCH (RBC) [Entitic mass] 33.2 pg 26. 0 - 34.0 pg [facility] MCHC (RBC) [Mass/Vol] 33.7 % 30.5 - 36.0 % [facility] MCV (RBC) [Entitic vol] 98.7 fL 77.0 - 99.0 fL [facility] Monocytes (Bld) [#/Vol] 0.6 10*3/uL 0.0 - 0.9 10*3/uL [facility] Monocytes/100 WBC (Bld) 4.6 % Low 5.0 - 13.0 % [facility] Neutrophils (Bld) [#/Vol] 11.5 10*3/uL High 1.8 - 7.5 10*3/uL [facility] Neutrophils/100 WBC (Bld) 82.6 % High 38.0 - 82.0 % [facility] Nucleated RBC/100 WBC (Bld) [Ratio] 0 % [facility] Platelet mean volume (Bld) [Entitic vol] 9.5 fL 9.0 - 12.7 fL [facility] Comment on above: MPV is a calculated measurement using platelet volume ratio Platelets (Bld) [#/Vol] 287 10*3/uL 140 - 440 10*3/uL [facility] RBC (Bld) [#/Vol] 3.82 10*6/uL 3.80 - 5.2 0 10*6/uL [facility] WBC (Bld) [#/Vol] 13.9 10*3/uL High 3.6 - 10.7 10*3/uL [facility] CBC WITH AUTO DIFFERENTIALon 06-17-2025 Basophils (Bld) [#/Vol] 0.0 10*3/uL Normal 0.0-0.2 [facility] Comment on above: Performed By: #### L [id number] #### Chief Wellness Officer: CALE LEON ([id number]) [facility] [place] [facility] (SWRLAB) [address] [place] [address] [place] Basophils/100 WBC (Bld) 0.3 % Normal 0.0-2.0 [facility] Comment on above: Performed By: #### L [id number] #### Chief Wellness Officer: CALE LEON ([id number]) [facility] [place] [facility] (SWRLAB) [address] [place] [address] [place] Eosinophils (Bld) [#/Vol] 0.3 10*3/uL Normal 0.0-0.5 [facility] Comment on above: Performed By: #### L [id number] #### Chief Wellness Officer: CALE LEON ([phone]) [facility] [place] [facility] (SWRLAB) [address] [place] [address] [place] Eosinophils/100 WBC (Bld) 2.3 % Normal 0.0-6.0 [facility] Comment on above: Performed By: #### L [id number] #### Chief Wellness Officer: CALE LEON ([phone]) [facility] (SWRL[facility]) [address] [place] [address] Erythrocyte distribution width (RBC) [Ratio] 14.1 % Normal 11.5-15.0 [facility] Comment on above: Performed By: #### L [id number] #### Chief Wellness Officer: CALE LEON ([id number]) [facility] [place] [facility] (SWRL[facility]) [address] [place] [address] Hematocrit (Bld) [Volume fraction] 37.7 % Normal 35.0-47.0 [facility] Comment on above: Performed By: #### L [id number] #### Chief Wellness Officer: CALE LEON ([id number]) [facility] [place] [facility] (SWRLAB) [address] [place] [address] Hemoglobin (Bld) [Mass/Vol] 12.7 g/dL Normal 11.7-16.0 [facility] Comment on above: Performed By: #### L [id number] #### Chief Wellness Officer: CALE LEON ([id number]) [facility] [place] [facility] (SWRL[facility]) [address] [place] [address] IMMATURE GRANS % 0.4 % Normal 0.0-2.0 [facility] Comment on above: Performed By: #### L [id number] #### Chief Wellness Officer: CALE LEON ([phone]) [facility] [place] [facility] (SWRLAB) [address] [place] [address] IMMATURE GRANS ABSOLUTE 0.1 10*3/uL High <0.1 [facility] Comment on above: Performed By: #### L [id number] #### Chief Wellness Officer: CALE LEON ([id number]) [facility] [place] [facility] (SWRL[facility]) [address] [place] [address] Lymphocytes (Bld) [#/Vol] 1.4 10*3/uL Normal 1.0-4.3 [facility] Comment on above: Performed By: #### L [id number] #### Chief Wellness Officer: CALE LEON ([id number]) [facility] [place] [facility] (SWRLAB) [address] [place] [address] Lymphocytes/100 WBC (Bld) 9.8 % Low 15.0-45.0 [facility] Comment on above: Performed By: #### L [id number] #### Chief Wellness Officer: CALE LEON ([phone]) [facility] [place] (SWRLAB) [address] [place] [address] MCH (RBC) [Entitic mass] 33.2 pg Normal 26.0-34.0 [facility] Comment on above: Performed By: #### L [id number] #### Chief Wellness Officer: CALE LEON ([id number]) [facility] [place] [facility] (SWRLAB) [address] [place] [address] MCHC 33.7 % Normal 30.5-36.0 [facility] Comment on above: Performed By: #### L [id number] #### Chief Wellness Officer: CALE LEON ([id number]) [facility] [place] [facility] (SWRLAB) [address] [place] [address] MCV (RBC) [Entitic vol] 98.7 fL Normal 77.0-99.0 [facility] Comment on above: Performed By: #### L [id number] #### Chief Wellness Officer: CALE LEON ([id number]) [facility] [place] (SWRLAB) [address] [place] [address] Monocytes (Bld) [#/Vol] 0.6 10*3/uL Normal 0.0-0.9 [facility] Comment on above: Performed By: #### L [id number] #### Chief Wellness Officer: CALE LEON ([id number]) [facility] [place] [facility] (SWRLAB) [address] [place] [address] [place] Monocytes/100 WBC (Bld) 4.6 % Low 5.0-13.0 [facility] Comment on above: Performed By: #### L [id number] #### Chief Wellness Officer: CALE LEON ([id number]) [facility] [place] [facility] (SWRLAB) [address] [place] [address] NEUTROPHILS ABSOLUTE 11.5 10*3/uL High 1.8-7.5 [facility] Comment on above: Performed By: #### L [id number] #### Chief Wellness Officer: CALE LEON ([id number]) [facility] [place] (SWRLAB) [address] [place] [address] Neutrophils/100 WBC (Bld) 82.6 % High 38.0-82.0 [facility] Comment on above: Performed By: #### L [id number] #### Chief Wellness Officer: CALE LEON ([id number]) [facility] [place] [facility] (SWRLAB) [address] [place] [address] NRBC 0.0 /100 WBCs Normal 0.0-2.0 [facility] Comment on above: Performed By: #### L [id number] #### Chief Wellness Officer: CALE LEON ([id number]) [facility] [place] (SWRLAB) [address] [place] [address] Platelet mean volume (Bld) [Entitic vol] 9.5 fL Normal 9.0-12.7 [facility] Comment on above: Result Comment: MPV is a calculated measurement using platelet volume ratio Performed By: #### L [id number] #### Chief Wellness Officer: CALE LEON ([phone]) [facility] [place] (SWRLAB) [address] [place] [address] Platelets (Bld) [#/Vol] 287 10*3/uL Normal 140-440 [facility] Comment on above: Performed By: #### L [id number] #### Chief Wellness Officer: CALE LEON ([id number]) [facility] ([facility]) [address] [place] [address] [place] RBC (Bld) [#/Vol] 3.82 10*6/uL Normal 3.80-5.20 [facility] Comment on above: Performed By: #### L [id number] #### Chief Wellness Officer: CALE LEON ([id number]) [facility] ([facility]) [address] [place] [address] WBC (Bld) [#/Vol] 13.9 10*3/uL High 3.6-10.7 [facility] Comment on above: Performed By: #### L [id number] #### Chief Wellness Officer: CALE LEON ([phone]) [facility] (SWRL[facility]) [address] [place] [address] COVID-19, Flu A/B, and RSV C omboon 06-17-2025 Interpretation and review of laboratory results Normal [facility] ED Nursing Noteon 06-17-2025 ED Nursing Note Pt. Arrived to ED vi a personal transportation with complaint of asthma exacerbation that began at home approximately 1 hour prior to arrival. Pt. Reports that people in her home have been sick with flu like symptoms. Pt. Reports completing two nebulizing treatments at home without relief. Normal [facility] ED Provider Noteon ED Provider Note EMERGENCY DEPARTMENT ENCOUNTER Pt Name: Carine Barba Birthdate 1990 Date of evaluation: 06/17/2025 ED Provider: Joel Shepard DO CHIEF COMPLAINT Chief Complaint Patient presents with Asthma HISTORY OF PRESENT ILLNESS (Location/Symptom, Timing/Onset, Context/Setting, Quality, Duration, Modifying Factors, Severity) Note limiting factors. I wore appropriate PPE for the entirety of this encounter. HPI Carine Barba is a 35 y.o. female who presents to the emergency department with a chief complaint of an asthma attack. Patient arrives in respiratory distress speaking several word sentences and tachypneic. She is able to note that her child has been sick and she believes she is also come down with a respiratory virus. Her symptoms quickly progressed over a couple hours today. She has been intubated for asthma in the past. Nursing Notes were reviewed. REVIEW OF SYSTEMS Review of Systems PAST MEDICAL HISTORY Medical History[1] SURGICAL HISTORY Surgical History[2] CURRENT MEDICATIONS Discharge Medication List as of 06/18/2025 2:27 AM CONTINUE these medications which have NOT CHANGED Details albuterol 108 (90 Base) MCG/ACT inhaler Inhale 2 puffs every 4 hours as needed for wheezing., Starting Tue04/15/2025, Until Tue05/26/2025 at 2359, Normal buprenorphine ER (Sublocade) 300 MG/1.5ML injection Inject 1.5 mL (1 each) under the skin every 14 days for 2 doses as sublocade initiation, Starting Tue06/17/2025, Until Tue07/17/2025, Normal buprenorphine-naloxon e (Suboxone) 8-2 MG per sublingual film Place 1 Film under the tongue 2 times daily for 7 days., Starting Tue06/17/2025, Until Tue06/24/2025, Normal gabapentin (Neurontin) 300 MG capsule Take 2 capsules (600 mg) by mouth 3 times daily., Starting Tue06/03/2025, Until Tue09/01/2025, Normal lithium 600 MG capsule Take 1 capsule (600 mg) by mouth Nightly., Starting Tue06/03/2025, Until Tue09/01/2025, Normal mometasone-formoterol (Dulera 200) 200-5 MCG/ACT inhaler Inhale 2 puffs 2 times daily. Rinse mouth with water after use to reduce aftertaste and incidence of candidiasis. Do not swallow., Starting Tue04/15/2025, Until Tue05/15/2025, Normal !! QUEtiapine (SEROquel) 100 MG tablet Take 1 tablet (100 mg) by mouth 4 times daily as needed (agitation, sleep, or anxiety. Can take doses with a 1 hour gap in between.)., Starting Tue06/03/2025, Until Tue09/01/2025 at 2359, Normal !! QUEtiapine (SEROquel) 400 MG tablet Take 1 tablet (400 mg) by mouth Nightly., Starting Tue06/03/2025, Until Tue09/01/2025, Normal !! - Potential duplicate medications found. Please discuss with provider. ALLERGIES Cefadroxil FAMILY HISTORY Family History[3] SOCIAL HISTORY Social History[4] SCREENINGS PHYSICAL EXAM ED Triage Vitals Temp Heart Rate Resp BP 06/17/25220006/17/25214906/17/25214906/17/252149 37.8 ?C (100.1 ?F) (!) 123 (!) 28 133/84 SpO2 Temp Source Heart Rate Source Patient Position 06/17/25214906/17/25220006/17/25214906/17/252149 100 % Temporal Monitor Lying BP Location FiO2 (%) 06/17/252149 -- Right arm Physical Exam Constitutional: General: She is in acute distress. HENT: Head: Normocephalic and atraumatic. Nose: Nose normal. Mouth/Throat: Mouth: Mucous membranes are moist. Eyes: General: No scleral icterus. Cardiovascular: Rate and Rhythm: Regular rhythm. Tachycardia present. Pulses: Normal pulses. Pulmonary: Effort: Respiratory distress present. Breath sounds: Wheezing present. Comments: Increased work of breathing. Moderate respiratory distress. Abdominal: General: There is no distension. Palpations: Abdomen is soft. Tenderness: There is no abdominal tenderness. Musculoskeletal: General: No deformity. Comments: +1 pitting edema which the later patient notes has been improving and was thought to be recent medication side effect. Skin: General: Skin is warm and dry. Findings: No rash. Neurological: Mental Status: She is oriented to person, place, and time. Gait: Gait normal. Comments: Moves all 4 extremities spontaneously and purposefully Psychiatric: Comments: Anxious DIAGNOSTIC RESULTS RADIOLOGY (Per Emergency Physician): Interpretation per the Radiologist below, if available at the time of this note: XR chest 1 view Final Result No acute cardiopulmonary process. Report Dictated on Electronically Signed By: Turenr Miranda MD Electronically Signed Date/Time: 06/17/2025 10:48 PM EDT LABS: Labs Reviewed BASIC METABOLIC PANEL - Abnormal Result Value SODIUM 141 POTASSIUM 3.5 CHLORIDE 104 CARBON DIOXIDE 27 UREA NITROGEN 27 (*) CREATININE 1.13 (*) GLUCOSE 68 (*) CALCIUM 9.2 ANION GAP 10 eGFR 65.6 CBC WITH AUTO DIFFERENTIAL - Abnormal Auto WBC 13.9 (*) RBC 3.82 Hemoglobin 12.7 Hematocrit 37.7 MCV 98.7 MCH 33.2 MCHC 33.7 RDW 14.1 Platelets 287 MPV 9.5 n (more content not included)... Normal [facility] LACTIC ACID WITH REFLEXon Lactate [Moles/Vol] 2.3 mmol/L High 0.5-2.2 [facility] Comment on above: Performed By: #### L [id number] ####Chief Wellness Officer: CALE LEON ([phone])[facility] [place] [address] Laboratory - Chemistry and C hemistry - challengeon 06-17-2025 Lactate [Moles/Vol] 2.3 mmol/L High 0.5 - 2. 2 mmol/L [facility] Laboratory - Chemistry and C hemistry - challengeOrdered By: Connor Daily on 06-17-2025 CO2 [Moles/Vol] 30 mmol/L High 24.0 - 28.0 mmol/L [facility] HCO3 (Bld) [Moles/Vol] 28.5 mmol/L High 23.0 - 27.0 mmol/L [facility] Oxygen (Bld) [Partial pressure] 25 mm[Hg] mm(Hg) [facility] pH (Bld) 7.298 [pH] Low 7.310 - 7.410 [facility] Laboratory - Microbiology an d Antimicrobial susceptibilityon 06-17-2025 FLUAV RNA DAJA+probe Ql (Resp) Not detected Not Detected [facility] FLUBV RNA DAJA+probe Ql (Resp) Not detected Not Detected [facility] RSV RNA DAJA+probe Ql (Resp) Not detected Not Detected [facility] SARS-CoV-2 (COVID-19) RNA DAJA+probe Ql (Resp) Not detected Not Detected [facility] alth SARS-CoV-2 (COVID-19) RNA DAJA+probe Ql (Unsp spec) Methodology: real-time, RT-PCR The SARS-CoV-2, Flu A/B, and RSV Combo assay is intended for in vitro diagnostic use under the FDA Emergency Use Authorization (EUA). This test has not been FDA cleared or approved. In compliance with this authorization, please visit www.fda.gov/media/885 396/download or www.fda.gov/media/339 553/download to access the applicable information sheets. [facility] No Panel Informationon 06-17 Interpretation and review of laboratory results Abnormal [facility] No Panel InformationOrdered By: Connor Daily on 06-17-2025 Amount Of Oxygen 0 [facility] BASE EXCESS 2 mmol/L -3.0 - 3.0 mmol/L [facility] Interpretation and review of laboratory results Abnormal [facility] pCO2 58 High [facility] Source Of Oxygen None (Room Air) [facility] Office Visiton 06-17-2025 Follow-up visit [id number] Monica Barba 1990 F Date Provider Department Center 06/17/2025 22935-SHNGMHZLORENA [facility] None No family history on file Level of Service:51249 MT OFFICE/OUTPATIENT [facility] 60 MINUTES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 Neutrophils/100 WBC (Bld) 55.4 % 47-70 [facility] Nitrite Test strip Ql (U)Ord ered By: Thang Davenport on 06-13-2025 Nitrite Ql (U) Negative Negative [facility] Nucleated red blood cell per centageOrdered By: Lissett Cardoza on 06-13-2025 Nucleated RBC/100 WBC (Bld) [Ratio] 0 % 0-5 [facility] Platelet countOrdered By: Sirisha Cardoza on 06-13-2025 Platelets (Bld) [#/Vol] 260 10*3/uL 150-450 [facility] Potassium measurement (mass/ volume)Ordered By: Lissett Cardoza on 06-13-2025 Potassium (Unsp spec) [Mass/Vol] 3.9 mmol/L 3.3-5.1 [facility] Pro- Brain NATRIURETIC PEPTI Temitope 06-13-2025 Natriuretic peptide B (Bld) [Mass/Vol] 113 pg/mL Normal <=450 [facility] Comment on above: Result Comment: Hear t Failure Unlikely: < 300 pg/mL Heart Failure Likely < 50 Years: > 450 pg/mL 50-75 Years: > 900 pg/mL >75 Years: > 1800 pg/mL Performed By: #### L 500.2500, L100.0100, L500.3400, [id number] ####[facility] [address] [place], [address] Protein Test strip Ql (U)Ord ered By: Thang Davenport on 06-13-2025 Protein Ql (U) Negative Negative [facility] RBC Auto (Bld) [#/Vol]Ordere d By: Lissett Cardoza on 06-13-2025 RBC (Bld) [#/Vol] 3.44 10*6/uL Low 4.2-5.4 [facility] Serum creatinine measurement (mass/volume)Ordered By: Lissett Cardoza on 06-13-2025 Creatinine [Mass/Vol] 0.71 mg/dL 0.70-1.20 [facility] Serum globulin measurementOr dered By: Lissett Cardoza on 06-13-2025 Globulin (S) [Mass/Vol] 2.0 g/dL Low 2.2-4.[address] [facility] Serum glucose measurement (m ass/volume)Ordered By: Lissett Cardoza on 06-13-2025 Glucose [Mass/Vol] 97 mg/dL 70-99 [facility] Serum or plasma alanine ariza otransferase (ALT) measurementOrdered By: Lissettbar Cardoza on 06-13-2025 ALT [Catalytic activity/Vol] 65 U/L High <35 [facility] Serum or plasma albumin emily urement (mass/volume)Ordered By: Lissett Cardoza on 06-13-2025 Albumin [Mass/Vol] 3.7 g/dL 3.5-5.0 [facility] Serum or plasma alkaline alisa sphatase measurementOrdered By: Lissett Cardoza on 06-13-2025 ALP [Catalytic activity/Vol] 63 U/L 35-104 [facility] Serum or plasma calcium emily urement (mass/volume)Ordered By: Lissett Cardoza on 06-13-2025 Calcium [Mass/Vol] 8.4 mg/dL 7.6-11.0 [facility] Serum or plasma urea nitroge n measurement (mass/volume)Ordered By: Lissett Cardoza on 06-13-2025 Urea nitrogen [Mass/Vol] 13 mg/dL 4-19 [facility] Sodium levelOrdered By: Lissett Cardoza on 06-13-2025 Sodium [Moles/Vol] 141 mmol/L 133-145 [facility] Total proteinOrdered By: Maegan Cardoza on 06-13-2025 Protein [Mass/Vol] 5.7 g/dL Low 5.9-8.4 [facility] Urinalysis, Completeon 06-13 AMORPHOUS 2+ Normal [facility] Comment on above: Order Comment: MIRTA CTOR TO SPECIFY Performed By: #### L 400.0001 #### [facility] [address] [place], [place], [id number] EPI,SQUAMOUS 0-5 SEEN Normal 5-10 [facility] Comment on above: Order Comment: MIRTA CTOR TO SPECIFY Performed By: #### L 400.0001 #### [facility] [address] [place], [place], [id number] RBC 0-5 SEEN Normal 0-5 [facility] Comment on above: Order Comment: MRITA CTOR TO SPECIFY Performed By: #### L 400.0001 #### [facility] [address] [place], [address] WBC 0-5 SEEN Normal 0-5 [facility] Comment on above: Order Comment: MIRTA CTOR TO SPECIFY Performed By: #### L 400.0001 #### [facility] [address] [place], [address] BACTERIA 0 SEEN Normal None Seen [facility] Comment on above: Order Comment: MIRTA CTOR TO SPECIFY Performed By: #### L 400.0001 #### [facility] [address] [place], [address] Mucus Ql (Urine sed) 0 SEEN Normal [facility] Comment on above: Order Comment: MIRTA CTOR TO SPECIFY Performed By: #### L 400.0001 #### [facility] [address] [place], [address] Urine clarityOrdered By: Malgorzata Davenport on 06-13-2025 Clarity (U) Sl. Cloudy Clear [facility] Urine color determinationOrd ered By: Thang Davenport on 06-13-2025 Color (U) Straw Yellow [facility] Urine glucose detectionOrder ed By: Thang Davenport on 06-13-2025 Glucose Ql (U) Normal mg/dl Normal [facility] Urine leukocyte esterase det ection by dipstickOrdered By: Thang Davenport on 06-13-2025 Leukocyte esterase Test strip Ql (U) Negative Negative [facility] Urine pHOrdered By: Thang Davenport on 06-13-2025 pH (U) 6.0 [pH] 5.0 - 8.0 [facility] Urine specific gravity measu rementOrdered By: Thang Davenport on 06-13-2025 Specific gravity (U) [Rel density] 1.010 1.002-1.030 [facility] Urine urobilinogen measureme ntOrdered By: Thang Davenport on 06-13-2025 Urobilinogen Ql (U) Normal mg/dl Normal [facility] White blood cell (WBC) count Ordered By: Lissett Cardoza on 06-13-2025 WBC (Bld) [#/Vol] 10.0 10*3/uL 4.4-11.0 [facility] Progress Noteon 06-04-2025 Progress Note Outpatient [facility] Initial Assessment Start Time: 1330, End Time: [address] a [address] Appointed Guardian? None Does patient have a Durable Power of Technical Sales Support Manager? No Does the patient have an Advanced Directive? If Yes, copy received? Not applicable Not applicable Screening Tool Score Comment (required for each screening tool) PHQ-9 18 (PHQ-2: 5) Suggests moderately severe depression PRADIP-7 16 Suggests severe anxiety AUDIT-C DAST-10 (!) 9 High risk PCL-5 30 Suggests further assessment warrented Language Preferred Language: Uruguayan Languages Spoken: Uruguayan Presenting Problem(s) Reason for visit as reported by patient Chief Complaint Patient presents with Drug / Alcohol Assessment Pt referred to IOP post hospital discharge Referral Information Referral source as reported by patient: Inpatient Psychiatric Unit (Comment Name) ([facility] 6th floor dual dx) History of presenting problem(s) (Onset, duration, precipitating factors, why person is here now, contributing stressors): Pt reported substance use for the past 10 years, attempting sobriety over the past few weeks. Current Environment/Living Situation Housing Stability In the last 12 months, was there a time when you were not able to pay the mortgage or rent on time?: Yes At any time in the past 12 months, were you homeless or living in a long term (including now)?: No Patient feels safe at home: Yes Living Arrangements: Children, Spouse/significant other, Extended family members Type of Residence: Private residence Current Family Circumstances (include family involvement, level of family support for treatment, bereavement concerns) Support Systems: Spouse/significant other, Children Lack of Caregiver Support: No Childhood/Adolescent History (note any significant developmental issues, history of abuse/neglect, history of emotional or behavioral concerns, what was it like growing up in your family, etc.): Reportedly raised by mother and older brothers Family of Origin History Parents' Marital Status: If parents never each other, which parent was primary caregiver? How does patient describe relationship with parents: Has a relationship with her mother How were drugs/alcohol used in your family growing up?: unknown Relationship History Single Describe history of significant partner relationships: (describe history of marriages/other significant romantic relationships): Pt reported her significant other is also working on sobriety Number of Children: 1 Ages: 14 Custody status/concerns (if any): Pt reported having custody of her daughter Has any spouse/significant other struggled with mental health, alcohol or drug problems? Yes Does patient have any history (childhood or as an adult) of any of the following (document in the medical history): Abuse/Domestic Violence: No Neglect: No Exploitation: No Sexual History Gender Identify: female Sexual Orientation: Not answered Have you ever traded sex for anything (i.e. food, money, drugs)? No Have you ever been coerced or forced to engage in any sexual activity? No Cultural & Ethnic Information (note patient's cultural beliefs, values and traditions and identify any impact on treatment) none noted Worship/Spiritual Orientation (note if patient identifies any belief in higher power, temple belief, or not. 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: 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 Service [place] Status: Never Served Branch: Not answered Years Served: Additional Comments: Financial Issues How hard is it for you to pay for the very basics like food, housing, medical care, and heating?: Somewhat hard Social/Support System (describe usual social, peer-group, environmental settings - note if any recent changes) Support Systems: Spouse/significant other, Children Social Connections In a typical week, how many times do you talk on the phone with family, friends, or neighbors?: Twice a week How often do you get together with friends or relatives?: Once a week How often do you attend islam or temple services?: Never Do you belong to any clubs or organizations such as islam groups, unions, fraternal or athletic groups, or school groups?: No How often do you attend meetings of the clubs or organiz (more content not included)... Normal [facility] [phone] 06-03-2025 [id number] Patient is discharging from the hospital today. She denies concerns with discharge today. [facility] Dr Shah. She has a family/friend picking her up. Normal [facility] 36on 06-03-2025 36 Carine called in to unit after discharge starting Suboxone wasn't called in. Called [facility], rx from Dr. Barnett is there but there was a problem with computer system and insurance said it was too soon, she re-ran and it was Ok'd, they are getting it ready for her. Normal [facility] LITHIUMon 06-03-2025 Worthing [Moles/Vol] 0.41 mmol/L Normal 0.40-1.00 [facility] Comment on above: Result Comment: MAI Ho COMMENTS: Values greater than 1.5 mmol/L at 12 hours post dose indicate a significant risk of toxicity. It is recommended that the maximum serum lithium level that should ideally never be exceeded is 1.0 - 1.2 mmol/L. Performed By: #### L AB29 ####Chief Wellness Officer: CALE LEON ([phone])[address] Nursing Noteon 06-03-2025 Nursing Note RN introduced self t o RN at start of shift, in the pt room. Pt is pleasant and cooperative with medication and assessment. Denies SI/HI/AH/VH. Pt reports excitement for being discharged home. No concerns and did require Seroquel for increased anxiety of discharge, including an AM Meds dose and a dose at approximately 1330. See MAR for admission details and time. Will continue to monitor. Normal [facility] Nursing Note Pt is calm and cooperative. Compliant with medications. Denies SI/HI/AVH. Endorses some mild tooth pain. Given Tylenol for mild pain. She voices no other needs or concerns. Will continue to monitor and provide support as needed. Normal [facility] Progress Noteon 06-03-2025 Progress Note Chief complaint Chief Complaint Patient presents with Med Refill Pt here requesting subutex, gabapentin, trazodone. Pt was at [facility] for detox, then sent to [facility] and has not been prescribed her medications since being out of detox. Pt states she is anxious. Anxiety Seen for follow up of substance dependence and use and to monitor withdrawals S: Patient seen and examined. No residual withdrawals Patient denies any acute issues overnight REVIEW OF SYMPTOMS: Patient denies CP or SOB.Denies audio-, visual or tactile hallucinations. Denies dizziness or visual changes. Denies acute pain. Denies rhinorrhea, lacrimation, cough or sore throat. No difficulty ambulating, urinating, swallowing. Denies rash O: Vitals: 06/03/25 0744 BP: 106/72 Pulse: 92 Resp: 17 Temp: 36.4 ?C (97.6 ?F) SpO2: 98% Patient seen and examined. Alert and oriented x 3. NAD. Head: NCAT. Skin: warm, dry Insight and judgement are fair. Denies suicidal or homocidal ideation. Cognition intact. Denies audio, visual or tactile hallucinations. Not responding to internal stimuli, good eye contact. Recent Results (from the past 24 hours) Worthing level Collection Time: 06/03/25 9:06 AM Result Value Ref Range LITHIUM 0.41 0.40 - 1.00 mmol/L Assessment/Plan: 1. For opioid use disorder patient is currently on the Suboxone that was initiated She is going to receive the Sublocade shot as outpatient Will give her a bridge of Suboxone 8 mg twice a day for 14 days till she sees her outside provider Her appointment is on the 18 12. Cocaine use disorder No drug-induced psychosis No suicidal homicidal ideation Sleep deprivation is resolved At this point that she medicine was off and the patient is reconsult if needed thank you I spent total time 50 minutes counseling, coordinating care and provided discussion regarding this patient's condition ,chemical dependency, psychiatric and medical history, symptoms and signs , reviewing past detoxification hospitalizations, assessing withdrawal status, evaluating detoxification medications, and discussing lab work and treatment plan, with providing options. Christopher Barnett MD, MD Addiction Medicine 06/03/2025 at 10:[address] [facility] 30on 06-02-2025 30 Problem: Substance Use Goal: STG: Carine will identify 3 triggers that lead to relapse Outcome: Progressing Goal: STG: Carine will identify 3 reasons to commit to sobriety Outcome: Progressing Goal: STG: Carine will verbalize 3 ways using has impacted their life Outcome: Progressing Goal: STG: Carine will identify 3 coping skills to maintain sobriety Outcome: Progressing Problem: IP Suicidal Ideation Goal: LTG: Carine will exhibit compliance with therapy Outcome: Progressing Goal: STG: Carine will decrease modifiable risk factors Outcome: Progressing Problem: Anxiety Goal: LTG: Carine will exhibit compliance with therapy Outcome: Progressing Goal: LTG: Carine's symptoms will no longer impair daily functioning as evidenced by improved ability to sleep at night / improved sleep quality at night. Outcome: Progressing Goal: STG: Carine will identify 2 coping skills to manage symptoms Outcome: Progressing [facility] 30 Problem: Substance Use Goal: STG: Carine will identify 3 triggers that lead to relapse Outcome: Progressing Goal: STG: Carine will identify 3 reasons to commit to sobriety Outcome: Progressing Goal: STG: Carine will verbalize 3 ways using has impacted their life Outcome: Progressing Goal: STG: Carine will identify 3 coping skills to maintain sobriety Outcome: Progressing Problem: IP Suicidal Ideation Goal: LTG: Carine will exhibit compliance with therapy Outcome: Progressing Goal: STG: Carine will decrease modifiable risk factors Outcome: Progressing Problem: Anxiety Goal: LTG: Carine will exhibit compliance with therapy Outcome: Progressing Goal: LTG: Ans symptoms will no longer impair daily functioning as evidenced by improved ability to sleep at night / improved sleep quality at night. Outcome: Progressing Goal: STG: Carine will identify 2 coping skills to manage symptoms Outcome: Progressing [facility] 94 06-02-2025 94 Department: [facility] Group Topic: Mindfulness Group Date: 06/02/2025 Start Time: 929 End Time: 999 Facilitators: Leoncio Carrasquillo Number of Participants: 2 Group Name: Mindfulness Treatment Modality: Leisure Development Purpose: enhance coping skills Summary: Mindfulness through painting Name: Carine Barba Date of : 1990 MR: [id number] Mental Status Exam: Appearance: Appropriately dressed and groomed Mood: Euthymic Affect: Full Behavior: Pleasant Alertness: Alert Speech: Appropriate Cognition: Intact Thought Process: Goal-directed Thought Content: No evidence of psychosis/delusions Level/Quality of Participation: cooperative Interactions with others: supportive Interventions utilized were Building rapport and engagement Progress Towards Goal(s): None Next Step: Continue with current services Patients Problems: Patient Active Problem List Diagnosis Asthma in adult, moderate persistent, uncomplicated Severe persistent asthma with exacerbation Suicidal ideation Opiate abuse, continuous (HCC) Cocaine abuse (HCC) Chronic insomnia [facility] Consulton 06-02-2025 Consult Hospital Medicine Consult Patient - Carine Barba, Age - 35 y.o. - 1990 Room Number - [id number]/[id number] A Consulting - Adolfo Goddard MD Primary Care Physician - AISHWARYA IVORY MD [facility] # - [id number] Date of Admission - 05/25/2025 6:25 PM Hospital Day - 7 Reason for Consult: Medical Management HISTORY OF PRESENT ILLNESS: Carine is a 35 y.o. female pmhx below. Patient presented to [facility] ED for medication refill. Reportedly, patient was at [facility] detox program and was discharged to [facility] without prescription for subutex, gabapentin, trazodone and is feeling anxious and suicidal. Patient was medically worked up consisting of EKG, CBC, CMP, CK, HCG, UDS, ETOH level, Covid antigen. EKG showed sinus rhythm, no stemi, qtc 433. CBC showed mild leukocytosis 11.5, no anemia. CMP without electrolyte derangements. Kidney and liver function good. CK 29. HCG negative. UDS positive for Fentanyl. ETOH <10. Covid negative. Patient was seen by psychiatry and accepted the patient for admission. Patient was deemed medically cleared for admission to [facility] for further psychiatric evaluation and management. [facility] [place] [place] consulted for dental pain medical management Patient was seen and evaluated at bedside this morning. She is calm and cooperative with my assessment. Patient reports dental pain to upper molar secondary to cracked tooth. Panorex was ordered and results discussed with patient-Deformity or fractures in maxillary dentition, No other acute osseous abnormality. Patient does endorse dental pain with hot and cold temperatures, some pain after meals when she notices food is stuck in the crakes of her teeth. She reports Hurricane gel really numbs the pain. No other medical concerns at this time. Patient reports she would like to follow up with [facility] [facility] dental clinic outpatient. She is agreeable to short course oral antibiotics. Oral hygiene was encouraged. VSS. Tolerating diet and meds. Denied any sob, cp, palpitations, abdominal discomfort, urinary sx, n/v/d/c fever or chills. Past Medical History: Medical History[1] Past Surgical History: Surgical History[2] Medications: Scheduled Meds[3] Continuous Meds[4] PRN Meds[5] Allergies: Cefadroxil Social History: Social History Socioeconomic History Marital [...] Social Drivers of Health Financial Resource Strain: Patient Declined (05/26/2025) Overall Financial Resource Strain (CARDIA) Difficulty of Paying Living Expenses: Patient declined Food Insecurity: Patient Declined (05/26/2025) Hunger Vital Sign Worried About Running Out of Food in the Last Year: Patient declined Ran Out of Food in the Last Year: Patient declined Transportation Needs: No Transportation Needs (05/26/2025) PRAPARE - Transportation Lack of Transportation (Medical): No Lack of Transportation (Non-Medical): No Physical Activity: Patient Declined (05/26/2025) Exercise Vital Sign Days of Exercise per Week: Patient declined Minutes of Exercise per Session: Patient declined Stress: Patient Declined (05/26/2025) [employer] - Occupational Stress Questionnaire Feeling of Stress : Patient declined Social Connections: Patient Declined (05/26/2025) Social Connection and Isolation Panel [NHANES] Frequency of Communication with Friends and Family: Patient declined Frequency of Social Gatherings with Friends and Family: Patient declined Attends Sabianist Services: Patient declined Active Member of Clubs or Organizations: Patient declined Attends Club or Organization Meetings: Patient declined Marital Status: Patient declined Intimate Partner Violence: Not At Risk (05/26/2025) Humiliation, Afraid, Rape, and Kick questionnaire Fear of Current or Ex-Partner: No Emotionally Abused: No Physically Abused: No Sexually Abused: No Housing Stability: Low Risk (05/26/2025) Housing Stability Vital Sign Unable to Pay for Housing in the Last Year: No Number of Times Moved in the Last Year: 0 Homeless in the Last Year: No Family History: Family History[6] REVIEW OF SYSTEMS: 10 point ROS obtained, as per HPI, otherwise NEG Physical Exam: Vitals: BP 98/70 (BP Location: Right arm, Patient Position: Sitting) Pulse 94 Temp 37.4 ?C (99.3 ?F) (Temporal) Resp 18 Ht 1.702 m (5' 7) Wt 72.6 kg (160 lb) SpO2 97% BMI 25.06 kg/m? BMI Classification: unable to calculate BMI d (more content not included)... [facility] Nursing Noteon 06-02-2025 Nursing Note Patient has been resting in her room, out in the common area watching television, and also putting puzzles together. Alert and oriented x 4. Ambulating independently. Eating 85% for meals. Is independent with ADLs. Social/pleasant with staff and peers. Taking scheduled medications as prescribed. PRN Albuterol and Seroquel given this shift, results were effective. Denies SI/HI. No delusions voiced/noted. No hallucinations voiced/noted. Safety maintained. [facility] Nursing Note Seroquel 100 mg PO given for anxiety as redirection was ineffective. [facility] Nursing Note Albuterol inhaler given for shortness of breath. [facility] Nursing Note Seroquel 100 mg PO given for anxiety as redirection was ineffective. [facility] 30on 06-01-2025 30 Problem: Substance Use Goal: STG: Carine will identify 3 triggers that lead to relapse Outcome: Progressing Goal: STG: Carine will identify 3 reasons to commit to sobriety Outcome: Progressing Goal: STG: Carine will verbalize 3 ways using has impacted their life Outcome: Progressing Goal: STG: Carine will identify 3 coping skills to maintain sobriety Outcome: Progressing Problem: IP Suicidal Ideation Goal: LTG: Carine will exhibit compliance with therapy Outcome: Progressing Goal: STG: Carine will decrease modifiable risk factors Outcome: Progressing Problem: Anxiety Goal: LTG: Carine will exhibit compliance with therapy Outcome: Progressing Goal: LTG: Carine's symptoms will no longer impair daily functioning as evidenced by improved ability to sleep at night / improved sleep quality at night. Outcome: Progressing Goal: STG: Carine will identify 2 coping skills to manage symptoms Outcome: Progressing [facility] 30 Problem: Anxiety Goal: LTG: Carine will exhibit compliance with therapy Outcome: Progressing Note: Patient has been informing staff of her anxiety and taking PRN Seroquel. Patient has also been participating in groups and is social/friendly with others in the milieu. [facility] 94on 06-01-2025 94 Department: [facility] ACTIVITIES THERAPY Group Topic: Other Group Date: 06/01/2025 Start Time: 919 End Time: 999 Facilitators: Gabi Tello Number of Participants: 2 Group Name: Share & Learn Treatment Modality: Activity Therapy Purpose: enhance coping skills, express feelings, and reinforce self-care To encourage patients to open up and share in a non - threatening environment share goals, talent ,unit Q&A leaving patient on a positive and thoughtful note. Name: Carine Barba Date of : 1990 MR: [id number] Appearance: Appropriately dressed and groomed Affect: Appropriate Behavior: Pleasant Alertness: Alert Speech: Appropriate Level/Quality of Participation: active Interactions with others: gave feedback Interventions utilized were Building rapport and engagement and Empathic listening Patient's Response to Intervention: Patient actively engaged in group social on task supportive of peers. Will continue to offer groups and encourage participation Patients Problems: Patient Active Problem List Diagnosis Asthma in adult, moderate persistent, uncomplicated Severe persistent asthma with exacerbation Suicidal ideation Opiate abuse, continuous (HCC) Cocaine abuse ([facility]) Chronic insomnia [facility] Nursing Noteon 06-01-2025 Nursing Note Pt is calm and cooperative. Compliant with medications. Denies SI/HI/AVH. Endorses some mild tooth pain. Given Tylenol for mild pain. She voices no other needs or concerns. Will continue to monitor and provide support as needed. [facility] Nursing Note Patient endorsed increased anxiety- PRN Seroquel 100 mg given PO at 1858. [facility] Nursing Note Patient endorsed 5/1 0 anxiety and requested PRN Seroquel. PRN Seroquel given PO at 1243. Patient reassessed at approx 1412 after administration of PRN Seroquel and reported the medication being effective. Patient continues on level [address] [facility] Progress Noteon 06-01-2025 Progress Note Addiction Medicine Patient: Carine Barba Admit Date: 05/25/2025 Primary Care Physician: AISHWARYA IVORY MD History of Present Illness Diagnosis: Opiate dependence The patient continues to be monitored by chemical dependency services. She remains on Suboxone 8 mg twice daily for opiate dependence. Tolerating medication without any difficulties. She is stable from a detox perspective at this point in time. Tentative plan for this patient is for her to follow-up with Dr. Shah as an outpatient for placement on Sublocade. She has an appointment scheduled with Dr. Shah on June 17. Social History Socioeconomic History Marital status: Single [...] Social Drivers of Health Financial Resource Strain: Patient Declined (05/26/2025) Overall Financial Resource Strain (CARDIA) Difficulty of Paying Living Expenses: Patient declined Food Insecurity: Patient Declined (05/26/2025) Hunger Vital Sign Worried About Running Out of Food in the Last Year: Patient declined Ran Out of Food in the Last Year: Patient declined Transportation Needs: No Transportation Needs (05/26/2025) PRAPARE - Transportation Lack of Transportation (Medical): No Lack of Transportation (Non-Medical): No Physical Activity: Patient Declined (05/26/2025) Exercise Vital Sign Days of Exercise per Week: Patient declined Minutes of Exercise per Session: Patient declined Stress: Patient Declined (05/26/2025) [employer] - Occupational Stress Questionnaire Feeling of Stress : Patient declined Social Connections: Patient Declined (05/26/2025) Social Connection and Isolation Panel [NHANES] Frequency of Communication with Friends and Family: Patient declined Frequency of Social Gatherings with Friends and Family: Patient declined Attends Sabianist Services: Patient declined Active Member of Clubs or Organizations: Patient declined Attends Club or Organization Meetings: Patient declined Marital Status: Patient declined Intimate Partner Violence: Not At Risk (05/26/2025) Humiliation, Afraid, Rape, and Kick questionnaire Fear of Current or Ex-Partner: No Emotionally Abused: No Physically Abused: No Sexually Abused: No Housing Stability: Low Risk (05/26/2025) Housing Stability Vital Sign Unable to Pay for Housing in the Last Year: No Number of Times Moved in the Last Year: 0 Homeless in the Last Year: No Medical History[1] Surgical History[2] Family History[3] Labs No results found for this or any previous visit (from the past 48 hours). Medications Home Meds: Prior to Admission medications Medication Sig Start Date End Date Taking? Authorizing Provider albuterol 108 (90 Base) MCG/ACT inhaler Inhale 2 puffs every 4 hours as needed for wheezing. 04/15/25 05/26/25 Yes Perez Allison MD albuterol (2.5 MG/3ML) 0.083% nebulizer solution Take 3 mL (2.5 mg) by nebulization every 6 hours as needed for wheezing. 01/08/25 02/07/25 Giancarlo Batres MD hydrOXYzine pamoate (Vistaril) 25 MG capsule Take 1 capsule (25 mg) by mouth every 6 hours as needed for anxiety for up to 3 days. 04/15/25 04/18/25 Perez Allison MD mometasone-formoterol (Dulera 200) 200-5 MCG/ACT inhaler Inhale 2 puffs 2 times daily. Rinse mouth with water after use to reduce aftertaste and incidence of candidiasis. Do not swallow. 04/15/25 05/15/25 Perez Allison MD Inpatient Scheduled Meds: Scheduled Meds[4] Inpatient PRN Meds: PRN Meds[5] Exam Vitals: 05/30/25 1927 05/31/25 0748 05/31/25 1918 06/01/25 0822 BP: 115/80 111/73 146/92 108/75 Pulse: 102 92 105 105 Resp: 18 16 16 18 Temp: 37.8 ?C (100 ?F) 36.9 ?C (98.4 ?F) 36.8 ?C (98.3 ?F) 37.1 ?C (98.8 ?F) TempSrc: Temporal Temporal Temporal Temporal SpO2: 97% 99% 100% 99% Weight: Height: Physical Exam Patient resting comfortably in bed. She is not flushed or diaphoretic. Oriented x 4. In good spirits. No auditory, tactile or visual disturbances. Assessment & Plan Diagnosis: Opiate dependence. Will continue Suboxone 8 mg twice daily while hospitalized. I am ordering a prescription on discharge for 8 mg Suboxone twice daily to supply her until her appointment on June [address] Shah for placement on Sublocade Will sign off for now. Please reconsult if needed Silas hSah MD Addiction Medicine 06/01/2025 at 1:35 PM --50-- minutes were spent reviewing the patient's records, evaluating the patient, entering o (more content not included)... [facility] Progress Note Nutrition update completed. Chart reviewed. Patient to be monitored and followed by the diet pharmacy picking technician. [facility] Psych Noteon 06-01-2025 Psych Note Around 1420, patient voiced c/o 6/10 pain to the L upper side of her mouth and stated she has a broken tooth. Patient also claimed that she, may have an abscess. On-call psychiatrist made aware and new order to consult [facility] [place] [place] was received. Cristian from [facility] [place] [place] made aware of patient complaints and new orders received. Patient made aware of new orders. Patient was offered PRN Ibuprofen and Benzocaine gel for tooth pain. Patient still voicing 6/10 pain after being given PRN Tylenol this afternoon. PRN Ibuprofen given PO and Benzocaine given at 1526. [facility] Psych Note Patient was observed in her room for interview. Patient had an appropriate affect and maintained good eye contact. Patient denied SI/HI/AH/VH. Patient did endorse 3/10 back pain but did not request PRN medication. Patient otherwise did not voice further complaints. Patient has been out in the milieu socializing with other peers and attended group this morning. Patient was compliant with all scheduled medications, has had a good appetite, and endorsed poor sleep. [facility] XR PANOREXon 06-01-2025 XR PANOREX Patient Name: CARINE BARBA : 1990 [place]#: [id number] Exam Date/Time: 06/01/2025 19:48 Procedure: XR PANOREX Ordering Provider: MCCRARY ISABEL Reason For Exam: ACUTE PAIN; left sided dental pain, broken tooth PANOREX CLINICAL INDICATION: ACUTE PAIN; left sided dental pain, broken tooth TECHNIQUE: Single, AP Panorex view of the maxilla and mandible. COMPARISON: None. FINDINGS: Deformity or fracture in the left maxillary 1st molar and bilateral 3rd molar dentition. Dental amalgam scattered in the maxillary and mandibular dentition. No apparent fracture or obvious osseous destruction. TMJ is grossly unremarkable. IMPRESSION: 1. Deformity or fractures in maxillary dentition, as reported. Correlate clinically. 2. No other, acute osseous abnormality. Report Dictated on Electronically Signed By: Jermaine Land MD Electronically Signed Date/Time: 06/01/2025 10:[address] [facility] 30on 05-31-2025 30 Problem: Substance Use Goal: STG: Carine will identify 3 triggers that lead to relapse Outcome: Progressing Goal: STG: Carine will identify 3 reasons to commit to sobriety Outcome: Progressing Goal: STG: Carine will verbalize 3 ways using has impacted their life Outcome: Progressing Goal: STG: Carine will identify 3 coping skills to maintain sobriety Outcome: Progressing Problem: IP Suicidal Ideation Goal: LTG: Carine will exhibit compliance with therapy Outcome: Progressing Goal: STG: Carine will decrease modifiable risk factors Outcome: Progressing Problem: Anxiety Goal: LTG: Carine will exhibit compliance with therapy Outcome: Progressing Goal: LTG: Ans symptoms will no longer impair daily functioning as evidenced by improved ability to sleep at night / improved sleep quality at night. Outcome: Progressing Goal: STG: Carine will identify 2 coping skills to manage symptoms Outcome: Progressing [facility] 30 Problem: Substance Use Goal: STG: Carine will identify 3 triggers that lead to relapse Outcome: Progressing Note: Pt notes her anxiety often leads to substance use as a coping mechanism. No further trigger insights. Goal: STG: Carine will identify 3 reasons to commit to sobriety Outcome: Progressing Note: Pt aware that substance use can lead to hospital stays like this and needs anxiety under control to reduce triggers. Goal: STG: Carine will verbalize 3 ways using has impacted their life Outcome: Progressing Note: Pt did not note. Goal: STG: Carine will identify 3 coping skills to maintain sobriety Outcome: Progressing Note: Pt notes medication compliance and outpatient treatment compliance. Problem: IP Suicidal Ideation Goal: LTG: Carine will exhibit compliance with therapy Outcome: Progressing Note: Pt will attend groups and compliant with medication. Goal: STG: Carine will decrease modifiable risk factors Outcome: Progressing Note: Pt denying any SI. Problem: Anxiety Goal: LTG: Carine will exhibit compliance with therapy Outcome: Progressing Note: Pt will attend groups and compliant with medication. Goal: LTG: Carine's symptoms will no longer impair daily functioning as evidenced by improved ability to sleep at night / improved sleep quality at night. Outcome: Progressing Note: Pt is sleeping better and is engaging on the unit. Still using PRN's to maximum allowed. Goal: STG: Carine will identify 2 coping skills to manage symptoms Outcome: Progressing Note: Pt reads and engages in social activities on the unit when increased anxiety present. [facility] 94on 05-31-2025 94 Department: [facility] Dual Diagnosis Unit 6 Group Topic: Art Therapy Group Date: 05/31/2025 Start Time: 1400 End Time: 1530 Facilitators: FRANCK Patton Number of Participants: 2 Art Therapy: Hope/Expressing Emotions; Hope Is the Thing with Feathers Treatment Modality: Art Therapy, [place] Therapy, Leisure Development, Patient-Centered Therapy, and Psychoeducation Purpose: enhance coping skills, express feelings, increase insight or knowledge, and mindfulness Summary: Facilitated group discussion of Hope by facilitating a discussion on the concept and reading and disecting the poem, Hope is the Thing with Feathers by Christy Garcia. Facilitated art intervention: Decorate origami bird (not hernandez). Facilitated processing art making experience. Therapist facilitated processing completed Hope bird artwork. Name: Carine Barba Date of : 1990 MR: [id number] Mental Status Exam: Appearance: Appropriately dressed and groomed Mood: Euthymic Affect: Appropriate Behavior: Pleasant, Cooperative, Engaging, and Interactive Alertness: Alert Speech: Appropriate Cognition: Intact Thought Process: Goal-directed Thought Content: No evidence of psychosis/delusions Level/Quality of Participation: active, attentive, cooperative, engaged, and motivated Interactions with others: Sociable and supportive Interventions utilized were: Building rapport and engagement, Empathic listening, Psychoeducation, Modeling/skills training, Art therapy, Expressive therapy, and [place] Therapy Patient's Response to Intervention: Patient actively listened to definition of Hope and Hope is a Thing with Feathers poem. Patient actively engaged in creating hope bird art. Patient appropriately engaged in processing art making experience. Patient actively engaged in processing completed hope bird art. Patient created a green bird with wings covered in colored rhinestones and adorned with feathers and multiple stickers. Patient stated the decorations matched her wild and crazy personality. In regard to hope, patient stated she hoped she could remain careful once she left the hospital. Progress Towards Goal(s): Moderate Additional Comments: None Next Step: Continue with current services Patients Problems: Patient Active Problem List Diagnosis ? Asthma in adult, moderate persistent, uncomplicated ? Severe persistent asthma with exacerbation ? Suicidal ideation ? Opiate abuse, continuous (HCC) ? Cocaine abuse (HCC) ? Chronic insomnia [facility] Nursing Noteon 05-31-2025 Nursing Note Pt requested PRN tylenol for pain. Pt rated pain a 3/10. PRN tylenol was administered. No further concerns at this time. [facility] Nursing Note Pt given PRN Albuterol inhaler 2 puffs, pt reported tightness and wheezing, 1612. [facility] Nursing Note Stated anxiety, gave PRN seroquel at 130p. [facility] Nursing Note RN introduced self t o pt in the day room. Pt is calm and cooperative with assessment and medications. Denies SI/HI/AH/VH. Pt did note some increased anxiety, requesting Seroquel 100 mg PRN. Seroquel 100 mg PRN was given. See MAR for administration. Pt is otherwise desiring discharge soon, with the hope of Tuesday. No further concerns and will continue to monitor. [facility] Nursing Note Pt was in common are a during time of assessment. Pt appeared appropriate and euthymic. Pt is friendly and social with others. Pt can be found in common area watching TV or socializing. Pt was compliant with scheduled medications and requested PRN Seroquel for sleep. Pt denied SI/HI/AVH. Pt attended snack and reports good appetite. Pt reports difficulty falling asleep. Pt denied any further concerns at this time but was encouraged to seek staff if one were to arise. [facility] Progress Noteon 05-31-2025 Progress Note - Attestation signed by Adolfo Goddard MD at 05/31/2025 4:41 PM I was present for essential portions of the history and exam. I participated in medical decision making and agree with the undersigned assessment and plan. 1 Chronic problem that is currently exacerbated was reviewed today and the prescription medications used for this problem were reviewed and managed. Plan to Bill at moderate level of medical decision making. Patient progressing appropriately and willing to have her quetiapine dose increased because she has tolerated as needed doses. Sign out Author will be out of office next week and patient will be connected to a new provider. Patient feels she will be ready to go home on Tuesday. She is sleeping better and not having any suicidality or homicidality. He came here from rehab but is hoping to go home with her partner and engage in IOP services. She is being followed by addiction medicine who is aware for the plan for discharge on Tuesday. She is aware she will be sent home with a prescription for scheduled Seroquel and scheduled gabapentin and a short supply of as needed quetiapine. Adolfo Goddard MD DEPARTMENT OF wood fence erector Progress Note - Inpatient Adult IDENTIFYING INFORMATION NAME: Carine Barba : 1990 TODAY'S DATE: 05/31/2025 CHIEF COMPLAINT: I am not sleeping [x] Patient was seen and examined in person [x] Chart reviewed [x] Labs reviewed [x] Patient's case discussed with staff/team Patient was seen in follow-up for psychiatric evaluation. Yesterday, patient received 100 mg of Seroquel three times throughout the day for anxiety and sleep. She also received her scheduled 300 mg of Seroquel before bed. She was able to sleep 4 hours last night. In addition to the Seroquel, Carine received gabapentin 600 mg three times for anxiety. Today, Carine appears calm. She still reports feeling anxious and states she is tired, but overall is feeling more well-rested. Carine reports that her appetite has been fine. She denies ongoing physical symptoms and feels physically well. In meeting with the patient today, Carine states that she is feeling good and is happy with the improvement she is seeing. She was able to get 4 hours of consecutive sleep last night. She states that it was difficult to fall asleep initially, but overall had the best night of sleep since arriving. She appears physically more well-rested than she did on previous days. She still endorses ongoing anxiety and agitation throughout the day. She states that she is experiencing her heart racing and hot flashes at various, seemingly random, times. She has not noticed specific triggers for these symptoms. She states that this is something she has experienced before and is not new to this admission. She does not feel like the gabapentin was that helpful. Carine discussed some coping mechanisms that may be helpful to manage her anxiety, such as talking to someone and walking away when experiencing these symptoms. Carine discussed that she no longer is interested in returning to [facility] after discharge and would rather return home and attend MAT/IOP at [place]. She previously stayed there for 4 days and states that they had no record of her being there. She also was unable to receive her medications while she was there. Carine feels confident about returning home and feels like it would be a better fit for her. She still expresses goals of wanting to be clean from all substances and states she has made this clear to her significant other who also recently returned home from detox. Her main motivation for remaining sober is her daughter. She also expresses gratitude for her time here and states that she has learned a lot about herself and her mental health. She feels well-equipped with resources and coping mechanisms to help her handle stress when she returns home. Carine was agreeable to further increase Seroquel to 400 mg nightly with the hope that she will utilize less of the as needed medication when she was ready for discharge. As she was agreeable to keeping her other medications the same. Carine currently denies suicidal or homicidal ideation as well as auditory or visual hallucinations. Denies medication side effects. Patient is currently able to contract for safety and does not exhibit aggression. Carine has no other questions or concerns at this time. REVIEW OF SYSTEMS [x] All negative/unchanged unless otherwise checked and noted. [] Constitutional [] Eyes [] Ear/Nose/Mouth/Throat [] Respiratory [] Cardiovascular [] Neurological [] Gastrointestinal [] Genitourinary [] Musculoskeletal [] Skin [] Endocrine [] Hematologic Visit Vitals BP 111/73 (more content not included)... [facility] 30on 05-30-2025 Problem: IP Suicidal Ideation Goal: LTG: Carine will exhibit compliance with therapy Outcome: Progressing Goal: STG: Carine will decrease modifiable risk factors Outcome: Progressing Problem: Anxiety Goal: LTG: Carine will exhibit compliance with therapy Outcome: Progressing Goal: LTG: Carine's symptoms will no longer impair daily functioning as evidenced by improved ability to sleep at night / improved sleep quality at night. Outcome: Progressing Goal: STG: Carine will identify 2 coping skills to manage symptoms Outcome: Progressing [facility] 30 Problem: Substance Use Goal: STG: Carine will identify 3 triggers that lead to relapse Outcome: Progressing Goal: STG: Carine will identify 3 reasons to commit to sobriety Outcome: Progressing Goal: STG: Carine will verbalize 3 ways using has impacted their life Outcome: Progressing Goal: STG: Carine will identify 3 coping skills to maintain sobriety Outcome: Progressing Problem: IP Suicidal Ideation Goal: LTG: Carine will exhibit compliance with therapy Outcome: Progressing Goal: STG: Carine will decrease modifiable risk factors Outcome: Progressing Problem: Anxiety Goal: LTG: Carine will exhibit compliance with therapy Outcome: Progressing Goal: LTG: Carine's symptoms will no longer impair daily functioning as evidenced by improved ability to sleep at night / improved sleep quality at night. Outcome: Progressing Goal: STG: Carine will identify 2 coping skills to manage symptoms Outcome: Progressing [facility] 30 Problem: Substance Use Goal: STG: Carine will identify 3 triggers that lead to relapse Outcome: Progressing Goal: STG: Carine will identify 3 reasons to commit to sobriety Outcome: Progressing Goal: STG: Carine will verbalize 3 ways using has impacted their life Outcome: Progressing Goal: STG: Carine will identify 3 coping skills to maintain sobriety Outcome: Progressing Problem: IP Suicidal Ideation Goal: LTG: Carine will exhibit compliance with therapy Outcome: Progressing Goal: STG: Carine will decrease modifiable risk factors Outcome: Progressing Problem: Anxiety Goal: LTG: Carine will exhibit compliance with therapy Outcome: Progressing Goal: LTG: Carine's symptoms will no longer impair daily functioning as evidenced by improved ability to sleep at night / improved sleep quality at night. Outcome: Progressing [facility] [id number] 05-30-2025 [id number] Spoke with patient about aftercare. She was at [facility] for residential treatment prior to admission. She is not sure she will return there at discharge, is speaking with her family about returning and home and looking for an alternate program or going to [facility] in [place]. She is concerned about getting her things from [facility] if she goes home, SW will check with patient tomorrow and help make arrangements as needed. [facility] LITHIUMon 05-30-2025 [place] [Moles/Vol] 0.17 mmol/L Low 0.40-1.00 [facility] Comment on above: Result Comment: MAI Ho COMMENTS: Values greater than 1.5 mmol/L at 12 hours post dose indicate a significant risk of toxicity. It is recommended that the maximum serum lithium level that should ideally never be exceeded is 1.0 - 1.2 mmol/L. Performed By: #### L AB29 ####Chief Wellness Officer: CALE LEON ([phone])[facility] ([address] Nursing Noteon 05-30-2025 Nursing Note Anxious at times, stated she felt irritable. Gave seroquel PRN at 838a. Up for breakfast. Lab sent for processing. Denies SI/HI. Denies voices or hallucinations. Denies pain, no distress. Denies needs. Full AM med compliance. Seen out in public areas socializing with others. [facility] Nursing Note Pt up all evening watching TV & socializing with peers. A&Ox4. Up & about the unit ad armando. Pt calm & cooperative with assessment & VS. Denies SI/HIAVH. No c/o pain or other discomfort voiced. Pt sleeping well as of midnight & remains asleep at this time. Maintained on q 15 min checks. [facility] Progress Noteon 05-30-2025 Progress Note - Attestation signed by Adolfo Goddard MD at 05/30/2025 4:55 PM I was present for essential portions of the history and exam. I participated in medical decision making and agree with the undersigned assessment and plan. 1 Chronic problem that is currently exacerbated was reviewed today and the prescription medications used for this problem were reviewed and managed. Plan to Bill at moderate level of medical decision making. Patient gradually making improvements in mood and insomnia. Plan to titrate quetiapine and hope for discharge early next week. Adolfo Goddard MD DEPARTMENT OF wood fence erector Progress Note - Inpatient Adult IDENTIFYING INFORMATION NAME: Carine Barba : 1990 TODAY'S DATE: 05/30/2025 CHIEF COMPLAINT: I am not sleeping [x] Patient was seen and examined in person [x] Chart reviewed [x] Labs reviewed [x] Patient's case discussed with staff/team Patient was seen in follow-up for psychiatric evaluation. Yesterday, patient received 100 mg of Seroquel four times throughout the day for anxiety and sleep. She also received her scheduled 200 mg of Seroquel before bed. She was able to sleep 3 hours last night. In addition to the Seroquel, Carine received gabapentin 300 mg three times for anxiety. Today, Carine appears calm. She still reports feeling anxious, but is less exhausted than she was previous days. Carine reports that her appetite has been fine. She denies ongoing physical symptoms and feels physically well. In meeting with the patient today, Carine states that she is feeling a lot better than yesterday. She was able to get 3 hours of sleep last night and was happy with the improvement she is seeing. She stated it was easier for her to fall asleep than it had been in previous days, though she does endorse waking up several times throughout the night. She appears physically more well-rested than she did yesterday. She still endorses ongoing anxiety and agitation throughout that day. She states that she is experiencing her heart racing and hot flashes at various, seemingly random, times. She has not noticed specific triggers for these symptoms. Patient discussed some coping mechanisms that may be helpful to manage her anxiety, such as remembering a favorite memory. For Carine, this is spending time with her daughter, who is her biggest motivation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 94on 05-26-2025 94 Department: [facility] ACTIVITIES THERAPY Group Topic: Leisure Skills Group Date: 05/26/2025 Start Time: 1230 End Time: 1300 Facilitators: Key Tirado Number of Participants: 5 Group Name: Cognitive Skills Treatment Modality: Leisure Development Purpose: enhance coping skills Summary: To expose patients to healthy leisure outlets. Name: Carine Barba Date of : 1990 MR: [id number] Mental Status Exam: Appearance: Good eye contact Affect: Appropriate Behavior: Interactive Alertness: Alert Speech: Appropriate Cognition: Intact Thought Process: Goal-directed Thought Content: organized Level/Quality of Participation: engaged Interactions with others: appropriate Interventions utilized were Activity Therapy Patient's Response to Intervention: on-task; appropriate interactions & affect Progress Towards Goal(s): Goal(s) met Additional Comments: Staff will continue to encourage pt to attend AT sessions. Next Step: Continue with current services Patients Problems: Patient Active Problem List Diagnosis Asthma in adult, moderate persistent, uncomplicated Severe persistent asthma with exacerbation Suicidal ideation Opiate abuse, continuous (HCC) Cocaine abuse ([facility]) Chronic insomnia [facility] Consulton 05-26-[address] [facility] Consult service H&P Admit Date: 05/25/2025 Primary Care Physician: AISHWARYA IVORY MD ] Chief Complaint Patient presents with Med Refill Pt here requesting subutex, gabapentin, trazodone. Pt was at [place] for detox, then sent to [facility] and has not been prescribed her medications since being out of detox. Pt states she is anxious. Anxiety Substance dependence disorder History of Present Illness Carine Barba is a 35 y.o. year old female new to addiction medicine team Patient has 8-year history of opioid use disorder She used to snort 2 g of fentanyl daily last use was more than 10 days ago Patient has 2 months history of using of crack cocaine she smokes 1 g daily last use was 10 days ago as well Patient went to into detox at [facility] and after that she went into rehab At [facility] patient was started on Subutex 16 mg however when she went into rehab they did not restart the Suboxone so she went through withdrawal and was unable to sleep for few days Patient has remote history of alcohol use disorder but that was years ago she denies any recent She denies any other sedative use disorder Patient denies any history of withdrawal seizures Denies any history of DTs Denies any history of blackouts Patient would like eventually to be on injectable buprenorphine as she wants to go into inpatient rehab Substance Use Disorder Criteria 1. Taking substance in larger amounts and/or for longer than intended [x] 2. Wanting to cut down or quit substance use but not being able to [x] 3. Spending a lot of time obtaining the substance [x] 4. Craving or a strong desire to use substance [x] 5. Repeatedly doesn't carry out major obligations due to substance use [x] 6. Using despite recurring social or interpersonal problems caused by substance use [x] 7. Reducing social, occupational, or recreational activities due to substance use [x] 8. Recurrent use of substance in physically hazardous situations [x] 9. Consistent use of substance despite recurrent physical or psychological difficulties [x] 10. Tolerance (increased amounts to achieve intoxication or diminished effect) [x] 11. Withdrawal syndrome or the substance is used to avoid withdrawal [x] 2-3 = mild; 4-5 = moderate; 6 or >6 = severe substance use disorder Remaining History Medical History[1] Surgical History[2] Family History[3] Social History Socioeconomic History Marital status: Single [...] Social Drivers of Health Financial Resource Strain: Patient Declined (05/26/2025) Overall Financial Resource Strain (CARDIA) Difficulty of Paying Living Expenses: Patient declined Food Insecurity: Patient Declined (05/26/2025) Hunger Vital Sign Worried About Running Out of Food in the Last Year: Patient declined Ran Out of Food in the Last Year: Patient declined Transportation Needs: No Transportation Needs (05/26/2025) PRAPARE - Transportation Lack of Transportation (Medical): No Lack of Transportation (Non-Medical): No Physical Activity: Patient Declined (05/26/2025) Exercise Vital Sign Days of Exercise per Week: Patient declined Minutes of Exercise per Session: Patient declined Stress: Patient Declined (05/26/2025) [employer] - Occupational Stress Questionnaire Feeling of Stress : Patient declined Social Connections: Patient Declined (05/26/2025) Social Connection and Isolation Panel [NHANES] Frequency of Communication with Friends and Family: Patient declined Frequency of Social Gatherings with Friends and Family: Patient declined Attends Sabianist Services: Patient declined Active Member of Clubs or Organizations: Patient declined Attends Club or Organization Meetings: Patient declined Marital Status: Patient declined Intimate Partner Violence: Not At Risk (05/26/2025) Humiliation, Afraid, Rape, and Kick questionnaire Fear of Current or Ex-Partner: No Emotionally Abused: No Physically Abused: No Sexually Abused: No Housing Stability: Low Risk (05/26/2025) Housing Stability Vital Sign Unable to Pay for Housing in the Last Year: No Number of Times Moved in the Last Year: 0 Homeless in the Last Year: No Allergies: Cefadroxil Review of Systems Patient denies nausea, vomitting, diarrhea. Denies CP or SOB.Denies audio-, visual or tactile hallucinations. Denies dizziness or visual change (more content not included)... Normal [facility] ECG 12-LEADon 05-26-2025 ECG 12-LEAD IMPRESSION: Rate: 77, Rhythm: Sinus, [place]: Normal, Intervals: MT 165, QRS 92, QTc 433, Interpretation: No acute ischemic changes, improvement in rate, Old: 04/14/25 Electronically Signed On 05-26-2025 02:39:[address] [facility] ED Nursing Noteon 05-26-2025 ED Nursing Note Pt to P with officer and transporter. [facility] ED Nursing Note Report called to [facility] 6; spoke with RN Normal [facility] ED Nursing Note EKG at bedside. Normal [facility] ED Nursing Note Psych at bedside Normal [facility] ED Nursing Note Niharika RN at bedside Normal [facility] ED Nursing Note Niharika RN at bedside to get vitals Normal [facility] Nursing Noteon 05-26-2025 Nursing Note Pt was in common are a when approached by RN during assessment. Pt appeared anxious but was cooperative during interaction. Pt denies any SI/HI/VH/AH at this time. Pt states she's been eating good. Pt states her sleep hasn't been the best. Pt is med compliant. Pt is encouraged to see staff with any questions or concerns. Plan of care ongoing. No further concerns at this time. Normal [facility] Nursing Note Patient admitted for Suicidal ideation [R45.851] Opiate abuse, continuous (HCC) [F11.10] Day 0 of admission Affect/Mood Affect/Mood Range: Normal range Affect/Mood Display: Appropriate Mood: Anxious Thought Content Delusions: No delusions Hallucinations: None Ambivalence: No (Comment) Behavior Eye Contact: Good Exhibited Behavior: Cooperative Speech Content: Appropriate SI/HI: Denies all Carine Barba has been compliant with medications. Carine Barba has not been attending group therapy Appetite: good, seen attending meals Estimated Sleeping Duration (Last 24 Hours)[1] Stated she hasn't slept in awhile and didn't sleep last night Vital Signs Vitals Value Taken Time BP 110/84 05/26/25 07:34 Temp 36.4 ?C (97.5 ?F) 05/26/25 07:34 Pulse 74 05/26/25 07:34 Resp 16 05/26/25 07:34 SpO2 100 % 05/26/25 07:34 [1] 1.75-2.25 hours Normal [facility] Nursing Note Pt refused morning lab draw. Pt labs moved to 05/27/25 at 0600. No further concerns at this time. Normal [facility] Nursing Note 0429- Pt arrived to unit via wheelchair accompanied by protective services and nursing loading rack supervisor. Pt vitals were obtained and were WNL. Pt appeared anxious but was cooperative during interaction. Pt stated that she had originally come in to detox but then they sent her to a residential facility. Pt stated that at that facility they weren't giving her the right medication and she's now been off her meds for 4 days now. Pt stated she hasn't been able to sleeping the last 7 days. Pt came in to get her medications adjusted but stated she just asked to stay while she was in the ED. Pt did not elaborate on this statement. Pt denies any SI/HI/AH/VH at this time. All pt orders were ordered by Dr. Bonilla. Pt signed all necessary paperwork. Pt was oriented to the unit and to room 114. 15 minute safety checks started. Pt is encouraged to see staff with any questions or concerns. No further concerns at this time. [facility] Progress Noteon 05-26-2025 Progress Note ACTIVITY THERAPY ASSESSMENT Met with patient for activity therapy assessment. Reviewed diagnosis, presenting complaint, current living situation, cultural/spiritual preferences, education level, vocational status and mental status at time of this assessment. Diagnosis (per chart review): Suicidal ideation, Opiate abuse, continuous Presenting Problem: Suicidal ideation Does the patient identify any cultural/spiritual influences that may impact patient participation with programs offered by the Activities team? No If Yes, describe: N/A Review of Recreation Therapy Involvement/Interests What do you normally enjoy doing in your free time? Spend time outdoors; spend time with animals; spend time with her daughter Are you satisifed with how you've spent your free time recently? No Leisure Barriers: not making the best decisions; trouble with addiction; lost interest Review of Music Therapy Involvement/Interests Favorite Band/Artist: none stated Musical Preferences: All Music Experiences/Skills and current involvement: Sings for Leisure Use of Music: Enhance Mood Music Triggers/Adverse reactions: none stated Review of Other Diversionary Activities/Interests What are other activities, hobbies or events that you enjoy or help you feel better? None reported When you think about activities you enjoy, what is a positive benefit you experience at that time? Keeps me upbeat; makes me not think about wanting to use If patient unable to identify activities that bring erin or other positive benefits, provide education on the benefits of participating in activities. Patient provided information on unit programming, including types of activities and program schedule for the unit? Yes Patient response: Patient states an interest in participating in groups Normal [facility] CBC WITH AUTO DIFFERENTIALon 05-25-2025 Basophils (Bld) [#/Vol] 0.1 10*3/uL Normal 0.0-0.2 [facility] Comment on above: Performed By: #### L [id number] #### Chief Wellness Officer: CALE LEON ([id number]) [facility] ESTELA RITTMAN (SWRLAB) [address] [place] [address] [place] Basophils/100 WBC (Bld) 0.4 % Normal 0.0-2.0 [facility] Comment on above: Performed By: #### L [id number] #### Chief Wellness Officer: CALE LEON ([id number]) [facility] ESTELA RITTMAN (SWRLAB) [address] [place] [address] Eosinophils (Bld) [#/Vol] 0.1 10*3/uL Normal 0.0-0.5 [facility] Comment on above: Performed By: #### L [id number] #### Chief Wellness Officer: CALE LEON ([id number]) [facility] ESTELA RITTMAN (SWRLAB) [address] [place] [address] [place] Eosinophils/100 WBC (Bld) 0.9 % Normal 0.0-6.0 [facility] Comment on above: Performed By: #### L [id number] #### Chief Wellness Officer: CALE LEON ([phone]) [facility] BYRDESTELA RITTMAN (SWRLAB) [address] [place] [address] Erythrocyte distribution width (RBC) [Ratio] 12.6 % Normal 11.5-15.0 [facility] Comment on above: Performed By: #### L [id number] #### Chief Wellness Officer: CALE LEON ([id number]) [facility] BYRDESTELA RITTMAN (SWRLAB) [address] [place] [address] Hematocrit (Bld) [Volume fraction] 45.6 % Normal 35.0-47.0 [facility] Comment on above: Performed By: #### L [id number] #### Chief Wellness Officer: CALE LEON ([id number]) [facility] PALMER RITTMAN (SWRLAB) [address] [place] [address] Hemoglobin (Bld) [Mass/Vol] 15.5 g/dL Normal 11.7-16.0 [facility] Comment on above: Performed By: #### L [id number] #### Chief Wellness Officer: CALE LEON ([id number]) [facility] PALMER RITTMAN (SWRLAB) [address] [place] [address] IMMATURE GRANS % 0.3 % Normal 0.0-2.0 [facility] Comment on above: Performed By: #### L [id number] #### Chief Wellness Officer: CALE LEON ([phone]) [facility] PALMER RITTMAN (SWRLAB) [address] [place] [address] IMMATURE GRANS ABSOLUTE 0.0 10*3/uL Normal <0.1 [facility] Comment on above: Performed By: #### L [id number] #### Chief Wellness Officer: CALE LEON ([phone]) [facility] PALMER RITTMAN (SWRLAB) [address] [place] [address] [place] Lymphocytes (Bld) [#/Vol] 3.4 10*3/uL Normal 1.0-4.3 [facility] Comment on above: Performed By: #### L [id number] #### Chief Wellness Officer: CALE LEON ([id number]) [facility] PALMER RITTMAN (SWRLAB) [address] [place] [address] [place] Lymphocytes/100 WBC (Bld) 29.2 % Normal 15.0-45.0 [facility] Comment on above: Performed By: #### L [id number] #### Chief Wellness Officer: CALE LEON ([id number]) [facility] PALMER RITTMAN (SWRLAB) [address] [place] [address] MCH (RBC) [Entitic mass] 32.6 pg Normal 26.0-34.0 [facility] Comment on above: Performed By: #### L [id number] #### Chief Wellness Officer: CALE LEON ([phone]) CARLA PALMER RITTMAN (SWRLAB) [address] [place] [address] MCHC 34.0 % Normal 30.5-36.0 [facility] Comment on above: Performed By: #### L [id number] #### Chief Wellness Officer: CALE LEON ([id number]) CARLA PALMER RITTMAN (SWRLAB) [address] [place] [address] MCV (RBC) [Entitic vol] 96.0 fL Normal 77.0-99.0 S [facility] Comment on above: Performed By: #### L [id number] #### Chief Wellness Officer: CALE LEON ([id number]) CARLA PALMER RITTMAN (SWRLAB) [address] [place] [address] Monocytes (Bld) [#/Vol] 0.8 10*3/uL Normal 0.0-0.9 [facility] Comment on above: Performed By: #### L [id number] #### Chief Wellness Officer: CALE LEON ([phone]) CARLA PALMER RITTMAN (SWRLAB) [address] [place] [address] Monocytes/100 WBC (Bld) 6.6 % Normal 5.0-13.0 S [facility] Comment on above: Performed By: #### L [id number] #### Chief Wellness Officer: CALE LEON ([id number]) CARLA PALMER RITTMAN (SWRLAB) [address] [place] [address] [place] NEUTROPHILS ABSOLUTE 7.2 10*3/uL Normal 1.8-7.5 [facility] Comment on above: Performed By: #### L [id number] #### Chief Wellness Officer: CALE LEON ([id number]) CARLA PALMER RITTMAN (SWRLAB) [address] [place] [address] Neutrophils/100 WBC (Bld) 62.6 % Normal 38.0-82.0 [facility] Comment on above: Performed By: #### L [id number] #### Chief Wellness Officer: CALE LEON ([phone]) CARLA PALMER RITTMAN (SWRLAB) [address] [place] [address] NRBC 0.0 /100 WBCs Normal 0.0-2.0 [facility] Comment on above: Performed By: #### L [id number] #### Chief Wellness Officer: CALE LEON ([id number]) [facility] PALMER RITTMAN (SWRLAB) [address] [place] [address] Platelet mean volume (Bld) [Entitic vol] 9.6 fL Normal 9.0-12.7 [facility] Comment on above: Performed By: #### L [id number] #### Chief Wellness Officer: CALE LEON ([id number]) [facility] PALMER RITTMAN (SWRLAB) [address] [place] [address] [place] Platelets (Bld) [#/Vol] 277 10*3/uL Normal 140-440 [facility] Comment on above: Performed By: #### L [id number] #### Chief Wellness Officer: CALE LEON ([id number]) [facility] PALMER RITTMAN (SWRLAB) [address] [place] [address] RBC (Bld) [#/Vol] 4.75 10*6/uL Normal 3.80-5.20 [facility] Comment on above: Performed By: #### L [id number] #### Chief Wellness Officer: CALE LEON ([id number]) [facility] PALMER RITTMAN (SWRLAB) [address] [place] [address] [place] WBC (Bld) [#/Vol] 11.5 10*3/uL High 3.6-10.7 [facility] Comment on above: Performed By: #### L [id number] #### Chief Wellness Officer: CALE LEON ([id number]) CARLA PALMER RITTMAN (SWRLAB) [address] [place] [address] [place] CKon 05-25-2025 CK [Catalytic activity/Vol] 29 U/L Low 30-185 [facility] Comment on above: Performed By: #### L [id number] #### Chief Wellness Officer: CALE LEON ([id number]) [facility] PALMER RITTMAN (SWRLAB) [address] [place] [address] COMPREHENSIVE METABOLIC PANE [place] 05-25-2025 Albumin [Mass/Vol] 4.1 g/dL Normal 3.5-5.0 [facility] Comment on above: Performed By: #### L [id number] #### Chief Wellness Officer: CALE LEON ([id number]) [facility] PALMER RITTMAN (SWRLAB) [address] [place] [address] ALP [Catalytic activity/Vol] 59 U/L Normal 40-150 [facility] Comment on above: Performed By: #### L [id number] #### Chief Wellness Officer: CALE LEON ([id number]) [facility] PALMER RITTMAN (SWRLAB) [address] [place] [address] ALT [Catalytic activity/Vol] 28 U/L Normal <30 [facility] Comment on above: Performed By: #### L [id number] #### Chief Wellness Officer: CALE LEON ([id number]) [facility] PALMER RITTMAN (SWRLAB) [address] [place] [address] Anion gap [Moles/Vol] 11 mmol/L Normal 3-13 [facility] Comment on above: Performed By: #### L [id number] #### Chief Wellness Officer: CALE LEON ([phone]) [facility] PALMER RITTMAN (SWRLAB) [address] [place] [address] AST [Catalytic activity/Vol] 20 U/L Normal <34 [facility] Comment on above: Performed By: #### L [id number] #### Chief Wellness Officer: CALE LEON ([id number]) [facility]Bar BYRDESTELA RITTMAN (SWRLAB) [address] [place] [address] [place] Bilirubin [Mass/Vol] 0.5 mg/dL Normal <1.2 [facility] Comment on above: Performed By: #### L [id number] #### Chief Wellness Officer: CALE LEON ([id number]) [facility] PALMER RITTMAN (SWRLAB) [address] [place] [address] [place] Calcium [Mass/Vol] 9.3 mg/dL Normal 8.4-10.2 [facility] Comment on above: Performed By: #### L [id number] #### Chief Wellness Officer: CALE LEON ([id number]) [facility] PALMER RITTMAN (SWRLAB) [address] [place] [address] [place] Chloride [Moles/Vol] 106 mmol/L Normal 98-107 [facility] Comment on above: Performed By: #### L [id number] #### Chief Wellness Officer: CALE LEON ([id number]) [facility] PALMER RITTMAN (SWRLAB) [address] [place] [address] [place] CO2 [Moles/Vol] 23 mmol/L Normal 22-29 [facility] Comment on above: Performed By: #### L [id number] #### Chief Wellness Officer: CALE LEON ([id number]) [facility] PALMER RITTMAN (SWRLAB) [address] [place] [address] [place] Creatinine [Mass/Vol] 0.77 mg/dL Normal 0.57-1.11 [facility] Comment on above: Performed By: #### L [id number] #### Chief Wellness Officer: CALE LEON ([id number]) [facility]Bar PAMLER RITTMAN (SWRLAB) [address] GLOMERULAR FILTRATION RATE ML/MIN/1.73 SQ M.PREDICTED >90.0 Normal >60.0 [facility] Comment on above: Result Comment: Calc ulation based on the Chronic Kidney Disease Epidemiology Collaboration (CKD-EPI) equation refit without adjustment for race Performed By: #### L [id number] #### Chief Wellness Officer: CALE LEON ([id number]) [facility] PALMER RITTMAN (SWRLAB) [address] [place] [address] [place] Glucose [Mass/Vol] 102 mg/dL High 74-100 [facility] Comment on above: Performed By: #### L [id number] #### Chief Wellness Officer: CALE LEON ([id number]) [facility] PALMER RITTMAN (SWRLAB) [address] [place] [address] Potassium [Moles/Vol] 4.6 mmol/L Normal 3.5-5.1 [facility] Comment on above: Result Comment: [facility] potassium values may be up to 0.5 mmol/L lower than serum values. Performed By: #### L [id number] #### Chief Wellness Officer: CALE LEON ([id number]) [facility] PALMER RITTMAN (SWRLAB) [address] [place] [address] Protein [Mass/Vol] 6.8 g/dL Normal 6.4-8.3 [facility] Comment on above: Performed By: #### L [id number] #### Chief Wellness Officer: CALE LEON ([phone]) [facility] PALMER RITTMAN (SWRLAB) [address] [place] [address] Sodium [Moles/Vol] 140 mmol/L Normal 136-145 [facility] Comment on above: Performed By: #### L [id number] #### Chief Wellness Officer: CALE LEON ([id number]) [facility] PALMER RITTMAN (SWRLAB) [address] [place] [address] Urea nitrogen [Mass/Vol] 20 mg/dL Normal 8-21 [facility] Comment on above: Performed By: #### L [id number] #### Chief Wellness Officer: CALE LEON ([id number]) [facility] PALMER RITTMAN (SWRLAB) [address] [place] [address] DRUGS OF ABUSEon 05-25-2025 AMPHETAMINE SCREEN Negative Normal [facility] Comment on above: Performed By: #### L [id number] ####Chief Wellness Officer: CALE LEON ([id number])[facility])[address] [place] [address] BARBITURATES SCREEN Negative Normal [facility] Comment on above: Performed By: #### L [id number] ####Chief Wellness Officer: CALE LEON ([phone])[facility])[address] [place] [address] BENZODIAZEPINE SCREEN Negative Normal [facility] Comment on above: Performed By: #### L [id number] ####Chief Wellness Officer: CALE LEON ([phone])[facility])[address] [place] [address] COCAINE METAB. SCREEN Negative Normal [facility] Comment on above: Performed By: #### L [id number] ####Chief Wellness Officer: CALE LEON ([phone])[facility] ([facility])[address] [place] [address] FENTANYL SCREEN, UR QUAL Positive Normal [facility] Comment on above: Result Comment: ORDE R COMMENTS: The expected value for all of the drugs listed above is Negative. The following drugs or drug groups have been screened for by Immunoassay at the following thresholds: Amphetamine class (1000 ng/mL) Barbiturates (200 ng/mL) Benzodiazepines (200 ng/mL) Cocaine (300 ng/mL) Methadone (300 ng/mL) Opiates (300 ng/mL) Oxycodone (100 ng/mL) PCP (25 ng/mL) Fentanyl (1.0 ng/ml) NOTE: These results are for medical treatment only. Analysis performed using non-forensic procedures. POSITIVE results are NOT confirmed by a more specific alternative method unless requested. If confirmation is needed, request confirmation under separate order. Performed By: #### L [id number] ####Chief Wellness Officer: CALE LEON ([phone])[facility] ([facility])[address] [place] [address] METHADONE SCREEN Negative Normal [facility] Comment on above: Performed By: #### L [id number] ####Chief Wellness Officer: CALE LEON ([phone])[facility] ([facility])[address] OPIATES SCREEN Negative Normal [facility] Comment on above: Performed By: #### L [id number] ####Chief Wellness Officer: CALE SILVERDYLON ([id number])[facility] ([facility])[address] [place] [address] OXYCODONE SCREEN Negative Normal [facility] Comment on above: Performed By: #### L [id number] ####Chief Wellness Officer: CALE LEON ([phone])[facility] ([facility])[address] [place] [address] PHENCYCLIDINE SCREEN Negative Normal [facility] Comment on above: Performed By: #### L [id number] ####Chief Wellness Officer: CALE LEON ([phone])[facility] ([facility])[address] [place] [address] ED Nursing Noteon 05-25-2025 ED Nursing Note Niharika RN at bedside to answer call light Normal [facility] ED Nursing Note Pt given dose of Suboxone 8/2 mg. Pt states she is still anxious and cannot sleep. Reassurance given that psychiatric needs will be addressed. Normal [facility] ED Nursing Note Kauhsal GARCIA at bedside to medicate per orders Normal [facility] ED Nursing Note Addiction Starting Gate Driver at bedside Normal [facility] ED Nursing Note Estrella at bedside to assess pt [facility] ED Nursing Note Sack lunch provided Normal [facility] ED Nursing Note Pt out to restroom t o provide urine sample Normal [facility] ED Nursing Note Patient changed into two gowns and hospital socks. Patients belongings placed into one belongings bag. Patient is calm and cooperative, breathing is even and unlabored. Normal [facility] ED Nursing Note This [facility] RN assessed pt in the ED. Pt initially in the hospital for Subutex. Pt states she was recently at [facility] for detox from fentanyl. Pt states she was discharged from [place] on 05/21/25 and sent to [facility] for residential placement. Pt states she was given Subutex while at [facility]. Pt signed release for this RN to contact [facility] and [facility]. However the medical records department at [facility] in not available until Tuesday. [facility] report does not show Subutex prescription. Also [facility] has no record of this pt being there. When asked, pt continues to state that she is at [facility]. Pt is emotional during interview. Pt states her anxiety is extremely high, pt fighting the urge to go out and use or hurt herself. Suboxone discussed with pt but pt states her anxiety is so bad that shecannot wait for lab results for Suboxone induction. Pt states anxiety and insomnia are the main driving factors in her fentanyl use. Pt states that before detox admission at [facility] she was using 2 grams of fentanyl daily, pt using intranasal. Last use was 05/14/25. Pt states she has also recently used cocaine, meth, marijuana. Pt denies recent benzodiazepine or alcohol use. Pt states that she has not slept in several days. Pt states that while she was in [facility], she was given Trazodone 150 mg nightly but it did not help her sleep. Given that pt states she cannot wait for lab work for Suboxone and that her anxiety is so bad that she does not feel safe, potential psychiatric admission discussed with pt. Pt is agreeable to this, stating that she knows heranxiety and insomnia must be addressed for her to stay sober. Reassurance given that her withdrawal symptoms can be addressed as well. Pt signed First Step consent and agreed to follow-up phone calls. [facility] ED Provider Noteon ED Provider Note EMERGENCY DEPARTMENT ENCOUNTER Pt Name: Carine Barba Birthdate 1990 Date of evaluation: 05/25/2025 ED Provider: Morteza Chris, [facility] EDcare was supervised by Dr. Sales who independently examined and evaluated the patient. Please see their attestation note for further details. CHIEF COMPLAINT Medication refill/anxiety Chief Complaint Patient presents with Med Refill Pt here requesting subutex, gabapentin, trazodone. Pt was at [facility] for detox, then sent to [place]. and has not been prescribed her medications since being out of detox. Pt states she is anxious. Anxiety HISTORY OF PRESENT ILLNESS (Location/Symptom, Timing/Onset, Context/Setting, Quality, Duration, Modifying Factors, Severity) Note limiting factors. I wore appropriate PPE for the entirety of this encounter. HPI Carine Barba is a 35 y.o. who presents to the emergency department for evaluation treatment patient reported that approximately 5 days ago she was at the [facility] ER and went to their detox program and was subsequently discharged to [facility]. Patient reported that she was under the understanding that she would be prescribed trazodone as well as Subutex that she reported that those medications has not been ordered for her. Upon my review of the patient's records I cannot find where she has had a prescription written for those medications she was here on April 18 and was given a prescription for Vistaril for anxiety and we will give her a course of anxiety now while she was here she denies any chest pain or shortness of breath she denies any fever or chills. She has a medical history of anxiety asthma. 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 Patient seeking psychiatric evaluate Nursing Notes were reviewed. Limitations to history: None Outside historians: None REVIEW OF SYSTEMS Review of Systems GENERAL: Denies weight change, fatigue, weakness, fever HEENT: Denies trauma, headache, dizziness, visual change, ear pain, hearing change, tinnitus, rhinorrhea CARDIAC: Denies hypertension, murmur, angina, palpations, dyspnea on exertion, edema RESPIRATORY: Denies shortness of breath, wheezing, cough, sputum, asthma, COPD GI: Denies nausea, vomiting, change in bowels, abdominal pain URINARY: Denies changes in frequency/urgency, hematuria, incontinence, flank pain MUSCULOSKELETAL: Denies weakness, pain, change in ROM, redness, swelling NEURO: Denies loss in sensation, tingling, tremors, weakness, fainting or seizures ENDO: Denies heat/cold intolerance, polyuria, polydipsia, or swelling around neck PSYCH: Denies changes in mood, anxiety, depression, tension, memory Pertinent positives and negatives as per HPI. PAST MEDICAL HISTORY Medical History[1] SURGICAL HISTORY Surgical History[2] CURRENT MEDICATIONS Previous Medications ALBUTEROL (2.5 MG/3ML) 0.083% NEBULIZER SOLUTION Take 3 mL (2.5 mg) by nebulization every 6 hours as needed for wheezing. ALBUTEROL 108 (90 BASE) MCG/ACT INHALER Inhale 2 puffs every 4 hours as needed for wheezing. HYDROXYZINE PAMOATE (VISTARIL) 25 MG CAPSULE Take 1 capsule (25 mg) by mouth every 6 hours as needed for anxiety for up to 3 days. MOMETASONE-FORMOTEROL (DULERA 200) 200-5 MCG/ACT INHALER Inhale 2 puffs 2 times daily. Rinse mouth with water after use to reduce aftertaste and incidence of candidiasis. Do not swallow. ALLERGIES Cefadroxil FAMILY HISTORY Family History[3] SOCIAL HISTORY Social History[4] SCREENINGS PHYSICAL EXAM ED Triage Vitals [05/25/25 1825] Temp Heart Rate Resp BP 36.8 ?C (98.3 ?F) 104 16 137/83 SpO2 Temp Source Heart Rate Source Patient Position 100 % Temporal Monitor -- BP Location FiO2 (%) -- -- Physical Exam Constitutional: Well developed, well nourished, no acute distress, non-toxic appearance Eyes: PERRL, conjunctiva normal HENT: Atraumatic, external ears normal, nose normal, oropharynx moist, no pharyngeal exudates. Neck- normal range of motion, no tenderness, supple Respiratory: No respiratory distress, normal breath sounds, no rales, no wheezing Cardiovascular: Normal rate, normal rhythm, no murmurs, no gallops, no rubs GI: Soft, nondistended, normal bowel sounds, nontender, no organomegaly, no mass, no rebound, no guarding : No costovertebral angle tenderness Musculoskeletal: No edema, no tenderness, no deformities. Back- no tenderness Integument: Well hydrated, no rash Lymphatic: No lymphadenopathy noted Neurologic: Alert & oriented x 3, CN 2-12 normal, normal motor function, normal sensory function, no focal deficits noted Psychiatric: Speech and behavior appropriate for age DIAGNOSTIC RESULTS RADIOLOGY (Per Emergency Physician): Interpretation per the Radiologist below, if available at the time of this note: No orders to display LABS: Labs Reviewed CK - Abnormal Result V (more content not included)... Normal [facility] ED Provider Note Emergency Department Encounter [facility]PT Patient: Carine Barba : 1990 Date of Evaluation: 05/25/2025 ED Supervising Physician: Dalila Sales MD I personally evaluated Carine Barba and made/approved the management plan and take responsibility for the patient management. This will serve as my Supervisory note and shared attestation. I did perform a substantive portion of the visit including all aspects of the Medical Decision Making. I wore appropriate PPE for the entirety of this encounter. In brief, Carine Barba is a 35 y.o. that presents to the emergency department for medication refill. Patient states that she was at [facility] for 5 days for detox from fentanyl and cocaine. Was transferred to a sober living home. States that she was post to receive prescriptions for Subutex, gabapentin, trazodone. However never received those medications. Came in stating that she has not slept and feels very anxious. She had already been seen by addiction medicine and offered Suboxone but patient declined and then started saying that she was having thoughts of harming herself. She denies any specific plan but tells me that she feels like she is so anxious that she is close to a psychotic break. Focused exam: Vital Signs: Reviewed Constitutional: Anxious Head: Normocephalic, atraumatic Eyes: No scleral injection, no scleral icterus, no conjunctival erythema Neck: Supple, trachea midline Pulmonary: No evidence of labored breathing Extremities: Warm, well perfused, no edema Neurological: AAO x 3, nonfocal Skin: Warm, dry, no rash Psych: Anxious, reporting suicidal ideation Brief ED course/MDM: Patient presenting with poor sleep and anxiety. Differential diagnosis includes opiate withdrawal, cocaine withdrawal, cocaine abuse, depression, anxiety. Initially I thought all of her symptoms were likely more related to withdrawal from fentanyl and cocaine. She was started on Suboxone. Did have some minimal improvement but was still complaining of significant anxiety and poor sleep. Psychiatry was consulted at that point. They decided to admit the patient with addiction medicine consult. Lab work was unremarkable. Urine was positive for fentanyl. Patient was medically cleared for psychiatric admission. Diagnostics interpreted by me: EKG(s) (as interpreted by me, 05/26/25, 02:33): Rate: 77, Rhythm: Sinus, [place]: Normal, Intervals: MT 165, QRS 92, QTc 433, Interpretation: No acute ischemic changes, improvement in rate, Old: 04/14/25 I personally discussed the patient's management with other clinicians: none All diagnostic, treatment, and disposition decisions were made by myself in conjunction with the TO. For all further details of the patient's emergency department visit, please see their documentation. (Comment: Please note this report has been produced using speech recognition software and may contain errors related to that system including errors in grammar, punctuation, and spelling, as well as words and phrases that may be inappropriate. If there are any questions or concerns please feel free to contact the dictating provider for clarification.) Dalila Sales MD [employer] Dalila Sales MD 05/26/25 0206 Dalila Sales MD 05/26/25 0239 Normal [facility] ETHANOLon 05-25-2025 ETHANOL IN SER/PLAS- RIVERA <10 Normal <10 [facility] Comment on above: Result Comment: ORDE R COMMENTS: LEAD TECHNICAL ARCHITECT depression is seen >100 mg/dL. NOTE: This result is for medical treatment only. Analysis performed using non-forensic procedures. Performed By: #### L [id number] #### Chief Wellness Officer: CALE LEON ([phone]) [facility] [employer]) [address] [place] [address] HCG QUALITATIVE URINEon Beta HCG ( test) Ql (U) Negative Normal Negative [facility] Comment on above: Result Comment: Plea se note: Very dilute urine specimens, as indicated by a low specific gravity, may not contain publications sales representative levels of hCG. If is still suspected, a first morning urine specimen should be collected 48 hours later and tested. ORDER COMMENTS: is the most common reason for HCG in urine, although choriocarcinoma, hydatidiform mole, and certain nontrophoblastic malignancies also result in detectable urinary HCG levels. Sensitivity = 20mIU/mL. Performed By: #### L [id number] #### Chief Wellness Officer: CALE LEON ([phone]) [facility] [employer] ([employer]) [address] [place] [address] SARS-COV-2 ANTIGENon 025 SARS-COV-2 ANTIGEN SARS-COV-2 ANTIGEN -BINAX Reference Negative Negative A negative result does not rule out the possibility of SARS-CoV-2 infection. NAAT-based methods should be considered for symptomatic patients presenting greater than seven days after onset of symptoms. Method: Lateral flow immunoassay. Fact sheets for healthcare providers and patients can be found at the following sites: https://www.[facility].gov/m edia/893277/download https://www.fda.gov/m edia/619089/download [facility] Comment on above: Performed By: #### L [id number] #### Chief Wellness Officer: CALE LEON ([phone]) [facility] ([facility] [address] [place] [address] Urine Cultureon 05-23-2025 URC Below infection level. Mixed Gram Positive Organisms Jackson Count 1000-10,000 MIXC Mixed contaminants. Submit a new specimen if indicated. Normal [facility] Comment on above: Performed By: #### M 100.2200, L400.0001 #### [facility] [address] [facility] [address] Anion gap in Serum or Plasma Ordered By: Ivonne Sales on 05-22-2025 Anion gap [Moles/Vol] 10 mmol/L 5-15 [facility] BUN/creatinine ratioOrdered By: Ivonne Sales on 05-22-2025 Urea nitrogen/Creatinine [Mass ratio] 23.3 mg/mg High 10-20 [facility] Basic Metabolic Profile (BMP )on 05-22-2025 BUN/CRE 23.3 RATIO High - [facility] Comment on above: Performed By: #### L 100.0500, L500.2500 ####[facility] [address] [facility] [address] Calcium [Mass/Vol] 8.6 mg/dL Normal 7.6-11.0 [facility] Comment on above: Performed By: #### L 100.0500, L500.2500 ####[facility] [address] [facility] [address] Chloride [Moles/Vol] 104 mmol/L Normal 98-108 [facility] Comment on above: Performed By: #### L 100.0500, L500.2500 ####[facility] [address] [place], [address] CO2 [Moles/Vol] 23.9 mmol/L Normal 21.0-32.0 [facility] Comment on above: Performed By: #### L 100.0500, L500.2500 ####[facility] [address] [place], [address] Creatinine [Mass/Vol] 0.70 mg/dL Normal 0.70-1.20 [facility] Comment on above: Performed By: #### L 100.0500, L500.2500 ####[facility] [address] [place], [address] ECRCL 110.12 ml/min Normal 50-250 [facility] Comment on above: Performed By: #### L 100.0500, L500.2500 ####[facility] [address] [place], [address] GAP 10 Normal 5-15 [facility] Comment on above: Performed By: #### L 100.0500, L500.2500 ####[facility] [address] [place], [address] GFR/1.73 sq M.predicted among non-blacks MDRD (S/P/Bld) [Vol rate/Area] 116 mL/min/{1.73_m2} Normal >60 [facility] Comment on above: Result Comment: mL/m in/1.73m2 CKD-EPI Creatinine Equation (2020) Performed By: #### L 100.0500, L500.2500 ####[facility] [address] [place], [address] Glucose [Mass/Vol] 108 mg/dL High 70-99 [facility] Comment on above: Performed By: #### L 100.0500, L500.2500 ####[facility] [address] [place], [address] Potassium [Moles/Vol] 4.8 mmol/L Normal 3.3-5.1 [facility] Comment on above: Performed By: #### L 100.0500, L500.2500 ####[facility] [address] [place], [address] Sodium [Moles/Vol] 137 mmol/L Normal 133-145 [facility] Comment on above: Performed By: #### L 100.0500, L500.2500 ####[facility] [address] [place], [address] Urea nitrogen [Mass/Vol] 16 mg/dL Normal 4-19 [facility] Comment on above: Performed By: #### L 100.0500, L500.2500 ####[facility] [address] [place], [address] CBC-Complete Blood Cnt No ffon 05-22-2025 Erythrocyte distribution width (RBC) [Ratio] 13.2 % Normal 11.6-14.6 [facility] Comment on above: Performed By: #### L 100.0500, L500.2500 ####[facility] [address] [place], [address] Hematocrit (Bld) [Volume fraction] 41.5 % Normal 37-47 [facility] Comment on above: Performed By: #### L 100.0500, L500.2500 ####[facility] [address] [place], [address] Hemoglobin (Bld) [Mass/Vol] 13.7 g/dL Normal 12.0-15.0 [facility] Comment on above: Performed By: #### L 100.0500, L500.2500 ####[facility] [address] [place], [address] MCH (RBC) [Entitic mass] 32.5 pg High 27.0-32.0 [facility] Comment on above: Performed By: #### L 100.0500, L500.2500 ####[facility] [address] [place], [address] MCHC (RBC) [Mass/Vol] 33.0 g/dL Normal 32-36 [facility] Comment on above: Performed By: #### L 100.0500, L500.2500 ####[facility] [address] [place], [address] MCV (RBC) [Entitic vol] 98.6 fL Normal 81-99 [facility] Comment on above: Performed By: #### L 100.0500, L500.2500 ####[facility] [address] [place], [address] Platelet mean volume (Bld) [Entitic vol] 10.0 fL Normal 6.2-12.0 [facility] Comment on above: Performed By: #### L 100.0500, L500.2500 ####[facility] [address] [place], [address] Platelets (Bld) [#/Vol] 242 10*3/uL Normal 150-450 [facility] Comment on above: Performed By: #### L 100.0500, L500.2500 ####[facility] [address] [place], [address] RBC (Bld) [#/Vol] 4.21 10*6/uL Normal 4.2-5.4 [facility] Comment on above: Performed By: #### L 100.0500, L500.2500 ####[facility] [address] [place], [address] RDW SD 48.3 fl High 35.1-43.9 [facility] Comment on above: Performed By: #### L 100.0500, L500.2500 ####[facility] [address] [place], [address] WBC (Bld) [#/Vol] 8.3 10*3/uL Normal 4.4-11.0 [facility] Comment on above: Performed By: #### L 100.0500, L500.2500 ####[facility] [address] [place], [address] Carbon dioxide, total [Moles /volume] in Central venous bloodOrdered By: Ivonne Sales on 05-22-2025 CO2 [Moles/Vol] 23.9 mmol/L 21.0-32.0 [facility] Chloride assayOrdered By: Luisana Sales on 05-22-2025 Chloride [Moles/Vol] 104 mmol/L 98-108 [facility] Erythrocyte distribution wid th ratioOrdered By: Ivonne Sales on 05-22-2025 Erythrocyte distribution width (RBC) [Ratio] 13.2 % 11.6-14.6 [facility] Erythrocyte distribution wid th standard deviationOrdered By: Ivonne Sales on 05-22-2025 Erythrocyte distribution width (RBC) [Ratio] 48.3 fl High 35.1-43.9 [facility] Glomerular filtration rate ( GFR) estimation/1.73 sq m using serum, plasma, or whole bOrdered By: Ivonne Sales on 05-22-2025 GFR/1.73 sq M.predicted among non-blacks MDRD (S/P/Bld) [Vol rate/Area] 116 mL/min/{1.73_m2} >60 [facility] Comment on above: mL/min/1.73m2 CKD-EP I Creatinine Equation (2020) Hematocrit Auto (Bld) [Volum e fraction]Ordered By: Ivonne Sales on 05-22-2025 Hematocrit (Bld) [Volume fraction] 41.5 % 37-47 [facility] Hemoglobin measurementOrdere d By: Ivonne Sales on 05-22-2025 Hemoglobin (Bld) [Mass/Vol] 13.7 g/dL 12.0-15.0 [facility] MCV (mean corpuscular volume ) determinationOrdered By: Ivonne Sales on 05-22-2025 MCV (RBC) [Entitic vol] 98.6 fL 81-[address] [facility] Mean corpuscular hemoglobin (MCH) determinationOrdered By: Ivonne Sales on 05-22-2025 MCH (RBC) [Entitic mass] 32.5 pg High 27.0-32.0 [facility] Mean corpuscular hemoglobin concentration (MCHC) determinationOrdered By: Ivonne Sales on 05-22-2025 MCHC (RBC) [Mass/Vol] 33.0 g/dL 32-36 [facility] Mean platelet volume determi nationOrdered By: Ivonne Sales on 05-22-2025 Platelet mean volume (Bld) [Entitic vol] 10.0 fL 6.2-12.0 [facility] Platelet countOrdered By: Luisana Sales on 05-22-2025 Platelets (Bld) [#/Vol] 242 10*3/uL 150-450 [facility] Potassium measurement (mass/ volume)Ordered By: Ivonne Sales on 05-22-2025 Potassium (Unsp spec) [Mass/Vol] 4.8 mmol/L 3.3-5.1 [facility] RBC Auto (Bld) [#/Vol]Ordere d By: Ivonne Sales on 05-22-2025 RBC (Bld) [#/Vol] 4.21 10*6/uL 4.2-5.4 [facility] Serum creatinine measurement (mass/volume)Ordered By: Ivonne Sales on 05-22-2025 Creatinine [Mass/Vol] 0.70 mg/dL 0.70-1.20 [facility] Serum glucose measurement (m ass/volume)Ordered By: Ivonne Sales on 05-22-2025 Glucose [Mass/Vol] 108 mg/dL High 70-99 [facility] Serum or plasma calcium emily urement (mass/volume)Ordered By: Ivonne Sales on 05-22-2025 Calcium [Mass/Vol] 8.6 mg/dL 7.6-11.0 [facility] Serum or plasma urea nitroge n measurement (mass/volume)Ordered By: Ivonne Sales on 05-22-2025 Urea nitrogen [Mass/Vol] 16 mg/dL 4-19 [facility] Sodium levelOrdered By: Leisa Sales on 05-22-2025 Sodium [Moles/Vol] 137 mmol/L 133-145 [facility] White blood cell (WBC) count Ordered By: Ivonne Sales on 05-22-2025 WBC (Bld) [#/Vol] 8.3 10*3/uL 4.4-11.0 [facility] Abdomen/Pelvis W IV Cont ONL Yon 05-21-2025 Abdomen/Pelvis W IV Cont ONLY [facility] [address] [place] [address] Abdomen/Pelvis W IV Cont ONLY MR#: [id number] Acct: [id number] Name: CARINE BARBA Rep #: [id number] : 1990 F 35 From: Saurabh willard MD PCP: Care Physician,No Primary Status: ADM IN Study: Abdomen/Pelvis W IV Cont ONLY Date of Exam: Exam# [id number] Ordering Dr: Ivonne Sales DO PROCEDURE: ABDOMEN/PELVIS W IV CONT ONLY 05/21/2025 REASON FOR EXAM: PYELO TECHNIQUE: ABDOMEN/PELVIS W IV CONT ONLY Coronal and Sagittal reconstruction series were provided. CONTRAST: Isovue-300 VOLUME: 100 mL One or more dose reduction techniques were used (e.g., Automated exposure control, adjustment of the mA and/or kV according to patient size, use of iterative reconstruction technique. RADIATION DOSE SUMMARY: CTDlvol: 10.6 mGy DLP: 536.51 mGycm COMPARISON: None FINDINGS: Lung bases: Lung bases are clear. Bilateral breast prostheses. Liver: Mild hepatomegaly. Gallbladder: Unremarkable Spleen: Normal size. Pancreas: Normal size without evidence of mass surrounding inflammation or ductal dilation. Adrenals: Unremarkable Kidneys: Normal renal sizes. No hydronephrosis. Bladder: Unremarkable Reproductive Organs: There is a 2.1 cm cyst in the right ovary. IUD is seen within the uterus. Bowel: Large amount of fecal material is seen in the colon. Appendix: Unremarkable Lymph nodes: Unremarkable Vasculature: Unremarkable Peritoneum / Retroperitoneum: Unremarkable Bones: Unremarkable CT/Abdomen/Pelvis W IV Cont ONLY IMPRESSION: Mild hepatomegaly. Small right ovarian cyst. IUD seen within the uterus. Large amount of fecal material is seen in the colon. Reading Location: [id number] CC: Dr. Ivonne Sales, DO; No Primary Care Physician Mcat Instructor: Signed Normal [facility] Bilirubin Test strip Ql (U)O rdered By: Ivonne Sales on 05-21-2025 Bilirubin Ql (U) Negative Negative [facility] Ketones Test strip Ql (U)Ord ered By: Ivonne Sales on 05-21-2025 Ketones Ql (U) Negative Negative [facility] Microscopic analysis of urin e for red blood cells (RBC)Ordered By: Ivonne Sales on 05-21-2025 Microscopic analysis of urine for red blood cells (RBC) 0-5 SEEN /hpf 0-5 [facility] Mucus LM Ql (Urine sed)Order ed By: Ivonne Sales on 05-21-2025 Mucus Ql (Urine sed) 0 SEEN /hpf [facility] Nitrite Test strip Ql (U)Ord ered By: Ivonne Sales on 05-21-2025 Nitrite Ql (U) Negative Negative [facility] Protein Test strip Ql (U)Ord ered By: Ivonne Sales on 05-21-2025 Protein Ql (U) 15 mg/dl High Negative [facility] Squamous epithelial cells de tection in urine sediment by light microscopyOrdered By: Ivonne Sales on 05-21-2025 Epithelial cells.squamous LM Ql (Urine sed) 0-5 SEEN /hpf 5-10 [facility] Urinalysis, Completeon 05-21 EPI,SQUAMOUS 0-5 SEEN Normal 5-10 [facility] Comment on above: Order Comment: CLEAN CATCH Performed By: #### M 100.2200, L400.0001 #### [facility] [address] [place], [address] RBC 0-5 SEEN Normal 0-5 [facility] Comment on above: Order Comment: CLEAN CATCH Performed By: #### M 100.2200, L400.0001 #### [facility] [address] [place], [address] BACTERIA 0 SEEN Normal None Seen [facility] Comment on above: Order Comment: CLEAN CATCH Performed By: #### M 100.2200, L400.0001 #### [facility] [address] [place], [address] Mucus Ql (Urine sed) 0 SEEN Normal [facility] Comment on above: Order Comment: CLEAN CATCH Performed By: #### M 100.2200, L400.0001 #### [facility] [address] [place], [address] WBC 0 SEEN Normal 0-5 [facility] Comment on above: Order Comment: CLEAN CATCH Performed By: #### M 100.2200, L400.0001 #### [facility] [address] [place], [address] Urine clarityOrdered By: Lala Sales on 05-21-2025 Clarity (U) Sl. Cloudy Clear [facility] Urine color determinationOrd ered By: Ivonne Sales on 05-21-2025 Color (U) Yellow Yellow [facility] Urine cultureOrdered By: Lala Sales on 05-21-2025 Bacteria identified Cx Nom (U) Positive Abnormal [facility] Urine glucose detectionOrder ed By: Ivonne Sales on 05-21-2025 Glucose Ql (U) Normal mg/dl Normal [facility] Urine leukocyte esterase det ection by dipstickOrdered By: Ivonne Sales on 05-21-2025 Leukocyte esterase Test strip Ql (U) Negative Negative [facility] Urine pHOrdered By: Ivonne Sales on 05-21-2025 pH (U) 7.0 [pH] 5.0 - 8.0 [facility] Urine sediment bacteria coun t by microscopy (number/high power field)Ordered By: Ivonne Sales on 05-21-2025 Bacteria LM.HPF (Urine sed) [#/Area] 0 /[HPF] None Seen [facility] Urine specific gravity measu rementOrdered By: Ivonne Sales on 05-21-2025 Specific gravity (U) [Rel density] 1.015 1.002-1.030 [facility] Urine urobilinogen measureme ntOrdered By: Ivonne Sales on 05-21-2025 Urobilinogen Ql (U) Normal mg/dl Normal [facility] White blood cell countOrdere d By: Ivonne Sales on 05-21-2025 White blood cell count 0 SEEN /hpf 0-[address] [facility] Absolute lymphocyte countOrd ered By: Elyse Petty on 05-18-2025 Lymphocytes Auto (Unsp spec) [#/Vol] 2.58 10*3/uL 0.83-4.51 [facility] Absolute neutrophil countOrd ered By: Elyse Petty on 05-18-2025 Neutrophils (Bld) [#/Vol] 6.7 10*3/uL 2.0-7.7 [facility] Alcohol, Blood (Medical)-Ser umon 05-18-2025 SERUM ETOH < 10.1 Normal <=10.0 [facility] Comment on above: Result Comment: This test is for medical purposes only. The legal definition of intoxication varies according to local law. Performed By: #### L 700.6800, L501.9100, L100.0100, L500.2500, L505.5000 ####[facility] [address] [place], [place], [address] Amphetamine detection with 1 000 ng/mL as cutoffOrdered By: Elyse Petty on 05-18-2025 Amphetamines Screen method >1000 ng/mL Ql (U) Negative < 200 ng/mL [facility] Anion gap in Serum or Plasma Ordered By: Elyse Petty on 05-18-2025 Anion gap [Moles/Vol] 11 mmol/L 5-15 [facility] Automated lymphocyte count a s percentage of total leukocytesOrdered By: Elyse Petty on 05-18-2025 Lymphocytes/100 WBC Auto (Unsp spec) 25.0 % - [facility] BUN/creatinine ratioOrdered By: Elyse Petty on 05-18-2025 Urea nitrogen/Creatinine [Mass ratio] 17.7 mg/mg - [facility] Basic Metabolic Profile (BMP )on 05-18-2025 BUN/CRE 17.7 RATIO Normal - [facility] Comment on above: Performed By: #### L 700.6800, L501.9100, L100.0100, L500.2500, L505.5000 ####[facility] [address] [place], [address] Calcium [Mass/Vol] 8.6 mg/dL Normal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 Comment on above: Performed By: #### L [id number] #### Chief Wellness Officer: CALE LEON ([phone]) [facility] ([facility]) [address] [place] [address] [place] CO2 [Moles/Vol] 26.1 mmol/L Normal 24.0-28.0 [facility] Comment on above: Performed By: #### L [id number] #### Chief Wellness Officer: CALE LEON ([id number]) [facility] [address] [place] [address] HCO3 (Bld) [Moles/Vol] 24.8 mmol/L Normal 23.0-27.0 [facility] Comment on above: Performed By: #### L [id number] #### Chief Wellness Officer: CALE LEON ([id number]) [facility] [address] [place] [address] Hemoglobin (Bld) [Mass/Vol] 14.7 g/dL Normal Screen only [facility] Comment on above: Performed By: #### L [id number] #### Chief Wellness Officer: CALE LEON ([id number]) [facility] ([facility] [address] [place] [address] OXYGEN (MM HG) IN VENOUS BLOOD 42.0 mm Hg Normal [facility] Comment on above: Performed By: #### L [id number] #### Chief Wellness Officer: CALE LEON ([id number]) [facility] ([facility]) [address] [place] [address] [place] OXYGEN SATURATION (%) IN VENOUS BLOOD 76.8 % Normal [facility] Comment on above: Performed By: #### L [id number] #### Chief Wellness Officer: CALE LEON ([id number]) [facility] ([facility]) [address] [place] [address] [place] PCO2, HANS 39.8 mm Hg Low 40.0-55.0 [facility] Comment on above: Performed By: #### L [id number] #### Chief Wellness Officer: CALE [id number]) [facility] ([facility]) [address] [place] [address] PH VENOUS 7.413 Normal 7.330-7.430 [facility] Comment on above: Performed By: #### L [id number] #### Chief Wellness Officer: CALE LEON ([id number]) [facility] ([facility]) [address] [place] [address] SOURCE OF OXYGEN None (Room Air) [facility] Comment on above: Performed By: #### L [id number] #### Chief Wellness Officer: CALE LEON ([id number]) [facility] ([facility]) [address] [place] [address] Consulton 04-15-2025 Consult - Attestation signed by [...] patient signed out AMA Giancarlo Yi MD [facility] Pulmonary Medicine [address] [facility] [place] [address] Patient - Carine Barba [facility] # - [id number] - 1990 Date of Admission - 04/14/2025 [...] itching, open sores Vitals height is 5' 6 (1.6 (more content not included)... Normal [facility] ECG 12-LEADon 04-15-2025 ECG 12-LEAD IMPRESSION: Sinus tachycardia Borderline T wave abnormalities Compared to ECG 07/05/20 No significant change Electronically Signed On 04-15-2025 01:28:20 EDT by Vincent Huitron Normal [facility] Laboratory - Chemistry and C hemistry - challengeon 04-15-2025 Procalcitonin [Mass/Vol] 0.02 ng/mL ZOILA F - 0.07 ng/mL [facility] Laboratory - Chemistry and C hemistry - challengeOrdered By: Mechlele Burnett on 04-15-2025 Base excess Calc (BldV) [Moles/Vol] 0.3 mmol/L -3.0 - 3.0 mmol/L [facility] CO2 (BldV) [Partial pressure] 39.8 mm[Hg] Low [facility] CO2 [Moles/Vol] 26.1 mmol/L 24.0 - 28.0 mmol/L [facility] HCO3 (Bld) [Moles/Vol] 24.8 mmol/L 23.0 - 27.0 mmol/L [facility] Oxygen (BldV) [Partial pressure] 42 mm[Hg] mm Hg [facility] pH (BldV) 7.413 [pH] 7.330 - 7.430 [facility] Laboratory - Hematology and Cell countsOrdered By: Mechelle Burnett on 04-15-2025 Hemoglobin (Bld) [Mass/Vol] 14.7 g/dL 7.0 g/dl [facility] No Panel Informationon 04-15 P [place] 81 degrees [facility] MT Interval 146 ms [facility] QRS [place] 77 degrees [facility] QRSD Interval 90 ms [facility] QT Interval 347 ms [facility] QTC Interval 449 ms [facility] T Wave [place] 15 degrees [facility] Sinus tachycardia Borderline T wave abnormalities Compared to ECG 07/05/20 No significant change Electronically Signed On 04-15-2025 01:28:20 EDT by Vincent Jolley D O - 04/15/2025 IMPRESSION: Sinus tachycardia Borderline T wave abnormalities Compared to ECG 07/05/20 No significant change Electronically Signed On 04-15-2025 01:28:20 EDT by Vincent Huitron [facility] No Panel InformationOrdered By: Mechelle Burnett on 04-15-2025 Amount Of Oxygen [facility] alth Interpretation and review of laboratory results Abnormal [facility] Source Of Oxygen None (Room Air) [facility] Assessment of oxygenation is best done with an arterial blood gas determination. Reference ranges for pO2, bicarbonate, and base excess are for mixed venous blood. Specimens drawn from a peripheral vein will often have higher values. [facility] Nursing Noteon 04-15-2025 Nursing Note Patient stated she wants to be discharged. Patient stated we are not doing anything for her patient educated on iv solumedrol, antibiotics, and breathing treatments. and Dr. Quinton gomez was notified via secure chat. Patient not to be discharged. Patient electing to leave AMA. AMA form signed. Patient educated on why she should stay. Prescriptions sent to [facility] [place] and patient notified of follow up with Tal Davila CNP in two days. Wrote out their office info and supplied to patient. Iv removed at this time, no complications noted. 1550- patient leaving ama at this time Normal [facility] Nursing Note Patient took telemetry and pulse oximeter off and stated My head is pounding and I ripped everything off. MD notified. Normal [facility] Nursing Note Fluids paused to promote rest in patient. Patient refusing to keep arm straight, causing fluids to alarm every 1-2 minutes. Patient educated on keeping arm straight 5x. MD notified. Normal [facility] Nursing Note Patient calls RN to room and states my head is pounding. RN gives patient 650mg of tylenol. Patient begins to get emotional and desats to 80% on RA. Patient does not want to wear oxygen, patient educated numerous times on the importance of O2. Patient then stated I want to go home, nothing is working. Patient educated on the importance of her staying. Patient did not respond and laid back down in the bed. MD notified. Patient now resting comfortably in bed and is 97% on RA. Normal [facility] Nursing Note Morning labs deferre d to 04/16 because labs just drawn at [facility] at 1999 on 04/14. agreeable. Normal [facility] Procalcitonin [Mass/Vol]on 0 04-15-2025 Interpretation and review of laboratory results Normal [facility] PCT <0.50 = Low risk of severe sepsis and/or septic shock. PCT >2.00 = High risk of severe sepsis and/or septic shock. [facility] Progress Noteon 04-15-2025 Progress Note Carine is a 35-year-old female with history of anxiety, asthma, multiple fractures before, history of blood clots presented to emergency room with shortness of breath. She initially presented [facility], found to be asthma exacerbation, stabilized on 2 L of nasal cannula, patient has history of smoking, has not used smoking for several days. Patient transferred to [facility]. Admitted for further evaluation and treatment. Respiratory [...] per H&P Total time spent: 15.[address] [facility] Progress Note Interim note: 0 644 [...] Ativan as needed. Jose L Foote MD [facility] Respiratory pathogens DNA an d RNA panel DAJA+non-probe (Nph)on 04-15-2025 Adenovirus Not detected Not Detected [facility] B. pertussis DNA DAJA+probe Ql (Unsp spec) Not detected Not Detected [facility] ealt Bordetella parapertussis Not detected Not Detec mirna [facility] Chlamydia pneumoniae Not detected Not Detected [facility] Coronavirus 229E Not detected Not Detected [facility] Coronavirus HKU1 Not detected Not Detected [facility] Coronavirus NL63 Not detected Not Detected [facility] Coronavirus OC43 Not detected Not Detected [facility] FLUAV RNA DAJA+non-probe Ql (Nph) Not detected Not Detected [facility] FLUBV RNA DAJA+non-probe Ql (Nph) Not detected Not Detected [facility] Human Metapneumovirus Not detected Not Detected [facility] Human Rhinovirus/Enterovirus Not detected Not Detected [facility] Interpretation and review of laboratory results Normal [facility] Mycoplasma pneumoniae Not detected Not Detected [facility] Parainfluenza 1 Not detected Not Detected [facility] Parainfluenza 2 Not detected Not Detected [facility] Parainfluenza 3 Not detected Not Detected [facility] Parainfluenza 4 Not detected Not Detected [facility] Respiratory Syncytial Virus Not detected Not Detected [facility] SARS-CoV-2 (COVID-19) RNA DAJA+non-probe Ql (Nph) Not detected Not Detected [facility] Methodology: Multiplex PCR [facility] Vital signson 04-15-2025 Heart rate 100 /min bpm [facility] Vital signsOrdered By: Antonia Burnett on 04-15-2025 Oxygen saturation in Venous blood 76.8 % [facility] 30on 04-14-2025 30 Called by [place] [facility] . Discussed with ED attending. 35 [...] , continue bipap. Admit to t3 Normal [facility] BASIC METABOLIC PANELon 03-25 Anion gap [Moles/Vol] 12 mmol/L Normal 3-13 [facility] Comment on above: Performed By: #### L [id number], [id number], [id number] ####Chief Wellness Officer: CALE LEON ([phone])[facility] (SWRLAB)[address] [place] [address] Calcium [Mass/Vol] 9.0 mg/dL Normal 8.4-10.2 [facility] Comment on above: Performed By: #### L [id number], LAB15, [id number] ####Chief Wellness Officer: CALE LEON ([phone])[facility] PALMER RITTMAN (SWRLAB)[address] [place] [address] [place] Chloride [Moles/Vol] 104 mmol/L Normal 98-107 [facility] Comment on above: Performed By: #### Paty DELEON, LAB15, [id number] ####Chief Wellness Officer: CALE LEON ([phone])[facility] [place]MER RITTMAN (SWRLAB)[address] [place] [address] [place] CO2 [Moles/Vol] 24 mmol/L Normal 22-29 [facility] Comment on above: Performed By: #### Paty DELEON, LAB15, [id number] ####Chief Wellness Officer: CALE LEON ([id number])[facility]Bar [place]MER RITTMAN (SWRLAB)[address] [place] [address] [place] Creatinine [Mass/Vol] 0.67 mg/dL Normal 0.57-1.11 [facility] Comment on above: Performed By: #### Paty DELEON, LAB15, [id number] ####Chief Wellness Officer: CALE LEON ([phone])[facility]Bar RODRIGUEZTMAN (SWRLAB)[address] [place] [address] [place] GLOMERULAR FILTRATION RATE ML/MIN/1.73 SQ M.PREDICTED >90.0 Normal >60.0 [facility] Comment on above: Result Comment: Calc ulation based on the Chronic Kidney Disease Epidemiology Collaboration (CKD-EPI) equation refit without adjustment for race Performed By: #### Paty DELEON, [id number], [id number] ####Chief Wellness Officer: CALE LEON ([id number])[facility] [place] R[place]TM[place] (SWRLAB)[address] [place] [address] [place] Glucose [Mass/Vol] 119 mg/dL High 74-100 [facility] Comment on above: Performed By: #### Paty ABToo, LAB15, [id number] ####Chief Wellness Officer: CALE LEON ([phone])[facility] [place]ODRIGUEZTMAN (SWRLAB)[address] [place] [address] Potassium [Moles/Vol] 3.9 mmol/L Normal 3.5-5.1 [facility] Comment on above: Result Comment: [facility] potassium values may be up to 0.5 mmol/L lower than serum values. Performed By: #### L [id number], LAB15, [id number] ####Chief Wellness Officer: CALE LEON ([phone])[facility] RODRIGUEZTMAN (SWRLAB)[address] [place] [address] Sodium [Moles/Vol] 140 mmol/L Normal 136-145 [facility] Comment on above: Performed By: #### Paty AB143, LAB15, [id number] ####Chief Wellness Officer: CALE LEON ([phone])[facility]Bar BAUERAN (SWRLAB)[address] [place] [address] Urea nitrogen [Mass/Vol] 9 mg/dL Normal 8-21 [facility] Comment on above: Performed By: #### L [id number], LAB15, [id number] ####Chief Wellness Officer: ACLE LEON ([phone])[facility]Bar BAUERAN (SWRLAB)[address] [place] [address] Basic metabolic 1998 panelon 04-14-2025 Anion gap [Moles/Vol] 12 mmol/L 3 - 13 mmol/L [facility] Calcium [Mass/Vol] 9 mg/dL 8.4 - 10. 2 mg/dL [facility] Chloride [Moles/Vol] 104 mmol/L 98 - 10 7 mmol/L [facility] CO2 [Moles/Vol] 24 mmol/L 22 - 29 mmol/L [facility] Creatinine [Mass/Vol] 0.67 mg/dL 0.57 - 1.11 mg/dL [facility] GFR/1.73 sq M.predicted (S/P/Bld) [Vol rate/Area] - PINF [facility] Comment on above: Calculation based on the Chronic Kidney Disease Epidemiology Collaboration (CKD-EPI) equation refit without adjustment for race Glucose [Mass/Vol] 119 mg/dL High 74 - 100 mg/dL [facility] Interpretation and review of laboratory results Abnormal [facility] Potassium [Moles/Vol] 3.9 mmol/L 3.5 - 5.1 mmol/L [facility] Comment on above: Plasma potassium phillip ues may be up to 0.5 mmol/L lower than serum values. Sodium [Moles/Vol] 140 mmol/L 136 - 145 mmol/L [facility] Urea nitrogen [Mass/Vol] 9 mg/dL 8 - 21 mg/d L [facility] CBC W Auto Differential pane l (Bld)on 04-14-2025 Basophils (Bld) [#/Vol] 0 10*3/uL 0.0 - 0.2 10*3/uL [facility] Basophils/100 WBC (Bld) 0.2 % 0.0 - 2.0 % [facility] Eosinophils (Bld) [#/Vol] 0.3 10*3/uL 0.0 - 0.5 10*3/uL [facility] Eosinophils/100 WBC (Bld) 2.6 % 0.0 - 6.0 % [facility] Erythrocyte distribution width (RBC) [Ratio] 12.7 % 11.5 - 15.0 % [facility] Hematocrit (Bld) [Volume fraction] 41 % 35.0 - 47.0 % [facility] Hemoglobin (Bld) [Mass/Vol] 14.2 g/dL 11.7 - 16.0 g/dL [facility] Immature granulocytes (Bld) [#/Vol] 0.1 10*3/uL High NINF - 0.1 10*3/uL [facility] Immature granulocytes/100 WBC (Bld) 0.4 % 0.0 - 2.0 % [facility] Interpretation and review of laboratory results Abnormal [facility] Lymphocytes (Bld) [#/Vol] 1.1 10*3/uL 1.0 - 4.3 10*3/uL [facility] Lymphocytes/100 WBC (Bld) 8.5 % Low 15.0 - 45.0 % [facility] MCH (RBC) [Entitic mass] 33.2 pg 26. 0 - 34.0 pg [facility] MCHC (RBC) [Mass/Vol] 34.6 % 30.5 - 36.0 % [facility] MCV (RBC) [Entitic vol] 95.8 fL 77.0 - 99.0 fL [facility] Monocytes (Bld) [#/Vol] 0.6 10*3/uL 0.0 - 0.9 10*3/uL [facility] Monocytes/100 WBC (Bld) 4.3 % Low 5.0 - 13.0 % [facility] Neutrophils (Bld) [#/Vol] 10.9 10*3/uL High 1.8 - 7.5 10*3/uL [facility] Neutrophils/100 WBC (Bld) 84 % High 38.0 - 82.0 % [facility] Nucleated RBC/100 WBC (Bld) [Ratio] 0 % [facility] Platelet mean volume (Bld) [Entitic vol] 9.9 fL 9.0 - 12.7 fL [facility] Comment on above: MPV is a calculated measurement using platelet volume ratio Platelets (Bld) [#/Vol] 230 10*3/uL 140 - 440 10*3/uL [facility] RBC (Bld) [#/Vol] 4.28 10*6/uL 3.80 - 5.2 0 10*6/uL [facility] WBC (Bld) [#/Vol] 13 10*3/uL High 3.6 - 10.7 10*3/uL [facility] CBC WITH AUTO DIFFERENTIALon 04-14-2025 Basophils (Bld) [#/Vol] 0.0 10*3/uL Normal 0.0-0.2 [facility] Comment on above: Performed By: #### L [id number] #### Chief Wellness Officer: CALE LEON ([phone]) [facility] ESTELA RITTMAN (SWRLAB) [address] [place] [address] Basophils/100 WBC (Bld) 0.2 % Normal 0.0-2.0 [facility] Comment on above: Performed By: #### L [id number] #### Chief Wellness Officer: CALE LEON ([id number]) [facility] ESTELA RITTMAN (SWRLAB) [address] [place] [address] Eosinophils (Bld) [#/Vol] 0.3 10*3/uL Normal 0.0-0.5 [facility] Comment on above: Performed By: #### L [id number] #### Chief Wellness Officer: CALE LEON ([phone]) [facility] PALMER RITTMAN (SWRLAB) [address] [place] [address] Eosinophils/100 WBC (Bld) 2.6 % Normal 0.0-6.0 [facility] Comment on above: Performed By: #### L [id number] #### Chief Wellness Officer: CALE LEON ([id number]) [facility] [place]MER RITTMAN (SWRLAB) [address] [place] [address] Erythrocyte distribution width (RBC) [Ratio] 12.7 % Normal 11.5-15.0 [facility] Comment on above: Performed By: #### L [id number] #### Chief Wellness Officer: CALE LEON ([phone]) [facility] [place] RITTMAN (SWRLAB) [address] [place] [address] Hematocrit (Bld) [Volume fraction] 41.0 % Normal 35.0-47.0 [facility] Comment on above: Performed By: #### L [id number] #### Chief Wellness Officer: CALE LEON ([id number]) [facility] [place]MER RITTMAN (SWRLAB) [address] [place] [address] Hemoglobin (Bld) [Mass/Vol] 14.2 g/dL Normal 11.7-16.0 [facility] Comment on above: Performed By: #### L [id number] #### Chief Wellness Officer: CALE LEON ([id number]) [facility] PALMER RITTMAN (SWRLAB) [address] [place] [address] [place] IMMATURE GRANS % 0.4 % Normal 0.0-2.0 [facility] Comment on above: Performed By: #### L [id number] #### Chief Wellness Officer: CALE LEON ([phone]) [facility] PALMER RITTMAN (SWRLAB) [address] [place] [address] [place] IMMATURE GRANS ABSOLUTE 0.1 10*3/uL High <0.1 [facility] Comment on above: Performed By: #### L [id number] #### Chief Wellness Officer: CALE LEON ([phone]) [facility] [place]MER RITTMAN (SWRLAB) [address] [place] [address] Lymphocytes (Bld) [#/Vol] 1.1 10*3/uL Normal 1.0-4.3 [facility] Comment on above: Performed By: #### L [id number] #### Chief Wellness Officer: CALE LEON ([id number]) [facility] PALMER RITTMAN (SWRLAB) [address] [place] [address] Lymphocytes/100 WBC (Bld) 8.5 % Low 15.0-45.0 [facility] Comment on above: Performed By: #### L [id number] #### Chief Wellness Officer: CALE LEON ([id number]) [facility] PALMER RITTMAN (SWRLAB) [address] [place] [address] MCH (RBC) [Entitic mass] 33.2 pg Normal 26.0-34.0 [facility] Comment on above: Performed By: #### L [id number] #### Chief Wellness Officer: CALE LEON ([id number]) [facility] PALMER RITTMAN (SWRLAB) [address] [place] [address] MCHC 34.6 % Normal 30.5-36.0 [facility] Comment on above: Performed By: #### L [id number] #### Chief Wellness Officer: CALE LEON ([phone]) [facility] PALMER RITTMAN (SWRLAB) [address] [place] [address] MCV (RBC) [Entitic vol] 95.8 fL Normal 77.0-99.0 [facility] Comment on above: Performed By: #### L [id number] #### Chief Wellness Officer: CALE LEON ([phone]) [facility] PALMER RITTMAN (SWRLAB) [address] [place] [address] [place] Monocytes (Bld) [#/Vol] 0.6 10*3/uL Normal 0.0-0.9 [facility] Comment on above: Performed By: #### L [id number] #### Chief Wellness Officer: CALE LEON ([phone]) [facility] PALMER RITTMAN (SWRLAB) [address] [place] [address] [place] Monocytes/100 WBC (Bld) 4.3 % Low 5.0-13.0 [facility] Comment on above: Performed By: #### L [id number] #### Chief Wellness Officer: CALE LEON ([phone]) [facility] PALMER RITTMAN (SWRLAB) [address] [place] [address] [place] NEUTROPHILS ABSOLUTE 10.9 10*3/uL High 1.8-7.5 [facility] Comment on above: Performed By: #### L [id number] #### Chief Wellness Officer: CALE LEON ([phone]) [facility] PALMER RITTMAN (SWRLAB) [address] [place] [address] [place] Neutrophils/100 WBC (Bld) 84.0 % High 38.0-82.0 [facility] Comment on above: Performed By: #### L [id number] #### Chief Wellness Officer: CALE LEON ([id number]) [facility]ENTERBra PALMER RITTMAN (SWRLAB) [address] [place] [address] [place] NRBC 0.0 /100 WBCs Normal 0.0-2.0 [facility] Comment on above: Performed By: #### L [id number] #### Chief Wellness Officer: CALE LEON ([id number]) [facility] PALMER RITTMAN (SWRLAB) [address] [place] [address] Platelet mean volume (Bld) [Entitic vol] 9.9 fL Normal 9.0-12.7 [facility] Comment on above: Result Comment: MPV is a calculated measurement using platelet volume ratio Performed By: #### L [id number] #### Chief Wellness Officer: CALE LEON ([phone]) [facility] PALMER RITTMAN (SWRLAB) [address] [place] [address] Platelets (Bld) [#/Vol] 230 10*3/uL Normal 140-440 [facility] Comment on above: Performed By: #### L [id number] #### Chief Wellness Officer: CALE LEON ([id number]) [facility] PALMER RITTMAN (SWRLAB) [address] [place] [address] RBC (Bld) [#/Vol] 4.28 10*6/uL Normal 3.80-5.20 [facility] Comment on above: Performed By: #### L [id number] #### Chief Wellness Officer: CALE LEON ([phone]) [facility] RODRIGUEZTMAN (SWRLAB) [address] [place] [address] WBC (Bld) [#/Vol] 13.0 10*3/uL High 3.6-10.7 [facility] Comment on above: Performed By: #### L [id number] #### Chief Wellness Officer: CALE LEON ([phone]) [facility] RODRIGUEZTMAN (SWRLAB) [address] [place] [address] D-DIMER,QUANTITATIVEon 04-14 D-DIMER, INNOVANCE 0.31 mg/L Normal <0.50 [facility] Comment on above: Result Comment: MAI Ho COMMENTS: Innovance D-Dimer values of <0.50 mg/L FEU can be used in combination with a pre-test probability model (e.g. Well's) to exclude pulmonary embolism (PE) disease, as well as an aid in the diagnosis of deep vein thrombosis (DVT). Performed By: #### L [id number] ####Chief Wellness Officer: CALE LEON ([phone])[facility]Bar RODRIGUEZTMAN (SWRLAB)[address] [place] [address] ED Nursing Noteon 04-14-2025 ED Nursing Note Pt reports slight improvement after breathing treatment but has continued wheezing. Normal [facility] ED Nursing Note Pt to room 9 with c/ o shortness of breath and wheezing x 2 days. Pt reports she has a history of asthma with no improvement with use of inhalers. Normal [facility] ED Provider Noteon ED Provider Note Emergency Department Encounter [facility] Patient: Carine Barba : 1990 Date of Evaluation: 04/14/2025 ED Provider: Vincent Huitron DO Chief Complaint Chief Complaint Patient presents with Shortness of Breath [place] Carine Barba is a 35 y.o. female [...] Triage Vitals Temp Heart Rate Resp BP 04/14/25175304/14/25175304/14/25175304/14/251753 36.8 ?C (98.3 ?F) 89 22 138/72 SpO2 Temp Source Heart Rate Source Patient Position 04/14/25175304/14/25175304/15/25 0043 04/14/251753 93 % Skin Monitor Lying BP Location FiO2 (%) 04/14/251753 -- Left arm GENERAL: The patient appears [...] 347 ms QTC Interval 449 ms P [place] 81 degrees QRS [place] 77 degrees T Wave [place] 15 degrees MT Interval 146 ms D-dimer, quantitative Collection Time: 04/14/25 8:56 PM (more content not included)... Normal [facility] Fibrin D-dimer FEU (PPP) [Ma ss/Vol]on 04-14-2025 Interpretation and review of laboratory results Normal [facility] D-Dimer values of <0.50 mg/L FEU can be used in combination with a pre-test probability model (e.g. Well's) to exclude pulmonary embolism (PE) disease, as well as an aid in the diagnosis of deep vein thrombosis (DVT). [facility] HCG QUANTITATIVE BLOODon HCG QUANTITATIVE <2.5 Normal Females <5 [facility] Comment on above: Result Comment: MAI [place] COMMENTS: Values in should double every 2 [...] gestational trophoblastic disease. Performed By: #### L [id number], LAB15, [id number] ####Chief Wellness Officer: CALE LEON ([phone])[facility] (SWRLAB)[address] [place] [address] HIGH SENSITIVITY TROPONIN, S ERIAL BASELINEon 04-14-2025 TROPONIN HS SERIAL BASELINE <3 Normal <=14 [facility] Comment on above: Result Comment: In i ndividuals presenting with symptoms > 2h, a baseline troponin <= 5 ng/L suggests acute cardiac injury is unlikely and further serial testing is generally not indicated. Performed By: #### L [id number], LAB15, [id number] ####Chief Wellness Officer: CALE LEON ([phone])[facility] (SWRLAB)[address] [place] [address] [place] HIGH SENSITIVITY TROPONIN, S ERIAL, SECOND TESTon 06-22-2025 2H TROPONIN HS (SERIAL 2ND TROPONIN) <3 Normal <=14 [facility] Comment on above: Result Comment: 2h t roponin (2nd troponin) samples collected between 1h 40 min and 2h and 20 min of the baseline collection time can be utilized to interpret delta troponins as per [facility] algorithms. Samples collected outside this timeframe need to be interpreted clinically. Delta value was unable to be calculated as both baseline and serial troponin tests were below the level of quantitation. As both baseline and 2h troponin values are below the level of quantitation, acute cardiac injury is unlikely. Performed By: #### L [id number], [id number] ####Chief Wellness Officer: CALE LEON ([phone])[facility] (SWRLAB)[address] [place] [address] Laboratory - Chemistry and C hemistry - challengeon 04-14-2025 HCG.beta subunit Qn Females <5 mIU/mL [facility] Laboratory - Coagulationon 0 04-14-2025 Fibrin D-dimer FEU (PPP) [Mass/Vol] 0.31 mg/L NINF - 0.50 mg/L [facility] Laboratory - Microbiology an d Antimicrobial susceptibilityon 04-14-2025 FLUAV RNA DAJA+probe Ql (Resp) Not detected Not Detected [facility] FLUBV RNA DAJA+probe Ql (Resp) Not detected Not Detected [facility] RSV RNA DAJA+probe Ql (Resp) Not detected Not Detected [facility] SARS-CoV-2 (COVID-19) RNA DAJA+probe Ql (Resp) Not detected Not Detected [facility] SARS-CoV-2 (COVID-19) RNA DAJA+probe Ql (Unsp spec) Methodology: real-time, RT-PCR The SARS-CoV-2, Flu A/B, and RSV Combo assay is intended for in vitro diagnostic use under the FDA Emergency Use Authorization (EUA). This test has not been FDA cleared or approved. In compliance with this authorization, please visit www.fda.gov/media/710 333/download or www.fda.gov/media/933 406/download to access the applicable information sheets. [facility] No Panel Informationon 04-14 2h Troponin HS (Serial 2nd Troponin) ng/L NINF - 14 ng/L [facility] Comment on above: 2h troponin (2nd tro ponin) samples collected between 1h 40 min and 2h and 20 min of the baseline collection time can be utilized to interpret delta troponins as per [facility] algorithms. Samples collected outside this timeframe need to be interpreted clinically. Delta value was unable to be calculated as both baseline and serial troponin tests were below the level of quantitation. As both baseline and 2h troponin values are below the level of quantitation, acute cardiac injury is unlikely. Interpretation and review of laboratory results Normal [facility] Values in should double every 2 to [...] or monitor tumors or gestational trophoblastic disease. [facility] Interpretation and review of laboratory results Normal [facility] Troponin HS Serial Baseline ng/L NINF - 14 ng/L [facility] Comment on above: In individuals prese nting with symptoms > 2h, a baseline troponin <= 5 ng/L suggests acute cardiac injury is unlikely and further serial testing is generally not indicated. [facility] PROCALCITONIN TESTon 025 PROCALCITONIN 0.02 ng/mL Normal <0.07 [facility] Comment on above: Result Comment: MAI Ho COMMENTS: PCT <0.50 = Low risk of severe sepsis and/or septic shock. PCT >2.00 = High risk of severe sepsis and/or septic shock. Performed By: #### L [id number], [id number] ####Chief Wellness Officer: CALE LEON ([phone])[facility] (SWRLAB)[address] [place] [address] RESPIRATORY PATHOGENS PANEL BY PCRon 04-14-2025 RESPIRATORY [...] Not Detected ORDER COMMENTS: Methodology: Multiplex PCR [facility] Comment on above: Performed By: #### L [id number] #### Chief Wellness Officer: CALE LEON ([id number]) [facility] ([facility]) [address] [place] [address] SARS-COV-2, FLU A/B, AND RSV COMBOon 04-14-2025 [...] In compliance with this authorization, please visit www.fda.gov/media/745 630/download or www.fda.gov/media/073 334/download to access the applicable information sheets. [facility] Comment on above: Performed By: #### L [id number] #### Chief Wellness Officer: CALE LEON ([phone]) [facility] [address] [place] [address] SARS-CoV-2, Flu A/B, and RSV Comboon 04-14-2025 Interpretation and review of laboratory results Normal [facility] XR Chest Single viewon 04-14 No radiographic acute cardiopulmonary process. Report Dictated on Electronically Signed By: Nubia Olivera MD Electronically Signed Date/Time: 04/14/2025 7:59 PM EDT [facility] Patient Name: CARINE BARBA : 1990 Exam Date/Time: 04/14/2025 19:36 Procedure: XR CHEST 1 VIEW Ordering Provider: HUITRON DUSTIN Reason For Exam: shortness of breath INDICATION: Shortness of breath. VIEWS: Chest AP portable-one image COMPARISON: 01/08/2025; CT chest 12/31/2013 FINDINGS: The trachea is midline. The heart is not enlarged. There is no confluent consolidation. Left clavicle screw and plate fixation. [facility] Nubia Olivera MD - 04/14/2025 Patient Name: [...] Electronically Signed Date/Time: 04/14/2025 7:59 PM EDT [facility] Radiology Study observation (narrative) [facility] XR Chest Single viewOrdered By: Nubia Olivera on 04-14-2025 [facility] Work Phone: CBC W Auto Differential pane l (Bld)on 01-08-2025 Basophils (Bld) [#/Vol] 0.1 10*3/uL 0.0 - 0.2 10*3/uL [facility] Basophils/100 WBC (Bld) 0.3 % 0.0 - 2.0 % [facility] Eosinophils (Bld) [#/Vol] 0.5 10*3/uL 0.0 - 0.5 10*3/uL [facility] Eosinophils/100 WBC (Bld) 2.7 % 0.0 - 6.0 % [facility] Erythrocyte distribution width (RBC) [Ratio] 13.2 % 11.5 - 15.0 % [facility] Hematocrit (Bld) [Volume fraction] 40.7 % 35.0 - 47.0 % [facility] Hemoglobin (Bld) [Mass/Vol] 13.8 g/dL 11.7 - 16.0 g/dL [facility] Immature granulocytes (Bld) [#/Vol] 0.1 10*3/uL High NINF - 0.1 10*3/uL [facility] Immature granulocytes/100 WBC (Bld) 0.4 % 0.0 - 2.0 % [facility] Interpretation and review of laboratory results Abnormal [facility] Lymphocytes (Bld) [#/Vol] 1.8 10*3/uL 1.0 - 4.3 10*3/uL [facility] Lymphocytes/100 WBC (Bld) 9.7 % Low 15.0 - 45.0 % [facility] MCH (RBC) [Entitic mass] 32.5 pg 26. 0 - 34.0 pg [facility] MCHC (RBC) [Mass/Vol] 33.9 % 30.5 - 36.0 % [facility] MCV (RBC) [Entitic vol] 96 fL 77.0 - 99.0 fL [facility] Monocytes (Bld) [#/Vol] 0.9 10*3/uL 0.0 - 0.9 10*3/uL [facility] Monocytes/100 WBC (Bld) 4.8 % Low 5.0 - 13.0 % [facility] Neutrophils (Bld) [#/Vol] 14.8 10*3/uL High 1.8 - 7.5 10*3/uL [facility] Neutrophils/100 WBC (Bld) 82.1 % High 38.0 - 82.0 % [facility] Nucleated RBC/100 WBC (Bld) [Ratio] 0 % [facility] Platelet mean volume (Bld) [Entitic vol] 9.9 fL 9.0 - 12.7 fL [facility] Comment on above: MPV is a calculated measurement using platelet volume ratio Platelets (Bld) [#/Vol] 235 10*3/uL 140 - 440 10*3/uL [facility] RBC (Bld) [#/Vol] 4.24 10*6/uL 3.80 - 5.2 0 10*6/uL [facility] WBC (Bld) [#/Vol] 18.1 10*3/uL High 3.6 - 10.7 10*3/uL [facility] CBC WITH AUTO DIFFERENTIALon 01-08-2025 Basophils (Bld) [#/Vol] 0.1 10*3/uL Normal 0.0-0.2 [facility] Comment on above: Performed By: #### L [id number] #### Chief Wellness Officer: CALE LEON ([phone]) [facility] ESTELA RITTMAN ([employer]) [address] [place] [address] [place] Basophils/100 WBC (Bld) 0.3 % Normal 0.0-2.0 [facility] Comment on above: Performed By: #### L [id number] #### Chief Wellness Officer: CAEL LEON ([phone]) [facility] ESTELA R[facility]TMAN ([employer]) [address] [place] [address] [place] Eosinophils (Bld) [#/Vol] 0.5 10*3/uL Normal 0.0-0.5 [facility] Comment on above: Performed By: #### L [id number] #### Chief Wellness Officer: CLAE LEON ([phone]) [facility] ESTELA [facility]IT[facility] ([employer]) [address] [place] [address] [place] Eosinophils/100 WBC (Bld) 2.7 % Normal 0.0-6.0 [facility] Comment on above: Performed By: #### L [id number] #### Chief Wellness Officer: CALE LEON ([phone]) CARLA PALMER RITTM[employer] ([employer]) [address] [place] [address] Erythrocyte distribution width (RBC) [Ratio] 13.2 % Normal 11.5-15.0 [facility] Comment on above: Performed By: #### L [id number] #### Chief Wellness Officer: CALE LEON ([phone]) [facility] ESTELA [facility] ([employer]) [address] [place] [address] Hematocrit (Bld) [Volume fraction] 40.7 % Normal 35.0-47.0 [facility] Comment on above: Performed By: #### L [id number] #### Chief Wellness Officer: CALE LEON ([phone]) [facility] ESTELA [facility] ([employer]) [address] [place] [address] Hemoglobin (Bld) [Mass/Vol] 13.8 g/dL Normal 11.7-16.0 [facility] Comment on above: Performed By: #### L [id number] #### Chief Wellness Officer: CALE LEON ([phone]) [facility] BYRDESTELA RITTMAN (SW[employer]) [address] [place] [address] [place] IMMATURE GRANS % 0.4 % Normal 0.0-2.0 [facility] Comment on above: Performed By: #### L [id number] #### Chief Wellness Officer: CALE LEON ([phone]) [facility] ESTELA RITTMAN ([employer]) [address] [place] [address] [place] IMMATURE GRANS ABSOLUTE 0.1 10*3/uL High <0.1 [facility] Comment on above: Performed By: #### L [id number] #### Chief Wellness Officer: CALE LEON ([phone]) [facility] ESTELA RITTMAN ([employer]) [address] [place] [address] Lymphocytes (Bld) [#/Vol] 1.8 10*3/uL Normal 1.0-4.3 [facility] Comment on above: Performed By: #### L [id number] #### Chief Wellness Officer: CALE LEON ([phone]) [facility] PALMER RITTMAN ([employer]) [address] [place] [address] Lymphocytes/100 WBC (Bld) 9.7 % Low 15.0-45.0 [facility] Comment on above: Performed By: #### L [id number] #### Chief Wellness Officer: CALE LEON ([phone]) [facility] PALMER RITTMAN ([employer]) [address] [place] [address] MCH (RBC) [Entitic mass] 32.5 pg Normal 26.0-34.0 [facility] Comment on above: Performed By: #### L [id number] #### Chief Wellness Officer: CALE LEON ([phone]) [facility] PALMER RITTMAN (SWRL[employer]) [address] [place] [address] MCHC 33.9 % Normal 30.5-36.0 [facility] Comment on above: Performed By: #### L [id number] #### Chief Wellness Officer: CALE LEON ([phone]) [facility] PAMLER RITTMAN (SWRL[employer]) [address] [place] [address] MCV (RBC) [Entitic vol] 96.0 fL Normal 77.0-99.0 [facility] Comment on above: Performed By: #### L [id number] #### Chief Wellness Officer: CALE LEON ([phone]) [facility] PALMER RITTMAN ([employer]) [address] [place] [address] Monocytes (Bld) [#/Vol] 0.9 10*3/uL Normal 0.0-0.9 [facility] Comment on above: Performed By: #### L [id number] #### Chief Wellness Officer: CALE LEON ([phone]) [facility] ESTELA RITTMAN ([employer]) [address] [place] [address] [place] Monocytes/100 WBC (Bld) 4.8 % Low 5.0-13.0 [facility] Comment on above: Performed By: #### L [id number] #### Chief Wellness Officer: CALE LEON ([phone]) [facility] PALMER RITTMAN (SWRL[employer]) [address] [place] [address] [place] NEUTROPHILS ABSOLUTE 14.8 10*3/uL High 1.8-7.5 [facility] Comment on above: Performed By: #### L [id number] #### Chief Wellness Officer: CALE LEON ([phone]) [facility] PALMER RITTMAN ([employer]) [address] [place] [address] [place] Neutrophils/100 WBC (Bld) 82.1 % High 38.0-82.0 [facility] Comment on above: Performed By: #### L [id number] #### Chief Wellness Officer: CALE LEON ([phone]) [facility] PALMER RITTMAN ([employer]) [address] [place] [address] [place] NRBC 0.0 /100 WBCs Normal 0.0-2.0 [facility] Comment on above: Performed By: #### L [id number] #### Chief Wellness Officer: CALE LEON ([phone]) [facility] PALMER RITTMAN (SWRL[employer]) [address] [place] [address] Platelet mean volume (Bld) [Entitic vol] 9.9 fL Normal 9.0-12.7 [facility] Comment on above: Result Comment: MPV is a calculated measurement using platelet volume ratio Performed By: #### L [id number] #### Chief Wellness Officer: CALE LEON ([phone]) [facility] PALMER RITTMAN ([employer]) [address] [place] [address] [place] Platelets (Bld) [#/Vol] 235 10*3/uL Normal 140-440 [facility] Comment on above: Performed By: #### L [id number] #### Chief Wellness Officer: CALE LEON ([phone]) [facility] PALMER RITTMAN (SW[place]) [address] RBC (Bld) [#/Vol] 4.24 10*6/uL Normal 3.80-5.20 [facility] Comment on above: Performed By: #### L [id number] #### Chief Wellness Officer: CALE LEON ([phone]) [facility] PALMER RITTMAN ([place]) [address] WBC (Bld) [#/Vol] 18.1 10*3/uL High 3.6-10.7 [facility] Comment on above: Performed By: #### L [id number] #### Chief Wellness Officer: CALE LEON ([phone]) [facility] PALMER RITTMAN (SWRL[employer]) [address] [place] [address] COMPREHENSIVE METABOLIC PANE [place] 01-08-2025 Albumin [Mass/Vol] 4.3 g/dL Normal 3.5-5.0 [facility] Comment on above: Performed By: #### L [id number] #### Chief Wellness Officer: CALE LEON ([phone]) [facility] PALMER RITTMAN ([place]) [address] [place] [address] ALP [Catalytic activity/Vol] 62 U/L Normal 40-150 [facility] Comment on above: Performed By: #### L [id number] #### Chief Wellness Officer: CALE LEON ([phone]) [facility] PALMER RITTMAN (SW[place]) [address] ALT [Catalytic activity/Vol] 11 U/L Normal <30 [facility] Comment on above: Performed By: #### L [id number] #### Chief Wellness Officer: CALE LEON ([phone]) [facility] PALMER RITTMAN ([place]) [address] [place] [address] Anion gap [Moles/Vol] 7 mmol/L Normal 3-13 [facility] Comment on above: Performed By: #### L [id number] #### Chief Wellness Officer: CALE LEON ([phone]) [facility] BYRDESTELA RITTMAN (SWRL[employer]) [address] [place] [address] AST [Catalytic activity/Vol] 17 U/L Normal <34 [facility] Comment on above: Performed By: #### L [id number] #### Chief Wellness Officer: CALE LEON ([phone]) [facility] BYRDESTELA RITTMAN (SWRL[employer]) [address] [place] [address] Bilirubin [Mass/Vol] 0.6 mg/dL Normal <1.2 [facility] Comment on above: Performed By: #### L [id number] #### Chief Wellness Officer: CALE LEON ([phone]) [facility] BYRDESTELA RITTMAN (SWRL[employer]) [address] [place] [address] [place] Calcium [Mass/Vol] 8.8 mg/dL Normal 8.4-10.2 [facility] Comment on above: Performed By: #### L [id number] #### Chief Wellness Officer: CALE LEON ([phone]) [facility] BYRDESTELA RITTMAN (SWRL[employer]) [address] [place] [address] [place] Chloride [Moles/Vol] 107 mmol/L Normal 98-107 [facility] Comment on above: Performed By: #### L [id number] #### Chief Wellness Officer: CALE LEON ([phone]) [facility] BYRDESTELA RITTMAN (SWRL[employer]) [address] [place] [address] [place] CO2 [Moles/Vol] 27 mmol/L Normal 22-29 [facility] Comment on above: Performed By: #### L [id number] #### Chief Wellness Officer: CALE LOEN ([phone]) [facility] BYRDESTELA RITTMAN (SWRL[employer]) [address] [place] [address] [place] Creatinine [Mass/Vol] 0.77 mg/dL Normal 0.57-1.11 [facility] Comment on above: Performed By: #### L [id number] #### Chief Wellness Officer: CALE LEON ([phone]) [facility] PALMER [employer] (SWRL[employer]) [address] [place] [address] GLOMERULAR FILTRATION RATE ML/MIN/1.73 SQ M.PREDICTED >90.0 Normal >60.0 [facility] Comment on above: Result Comment: Calc ulation based on the Chronic Kidney Disease Epidemiology Collaboration (CKD-EPI) equation refit without adjustment for race Performed By: #### L [id number] #### Chief Wellness Officer: CALE LEON ([phone]) [facility] [employer] ([facility]) [address] [place] [address] Glucose [Mass/Vol] 88 mg/dL Normal 74-100 [facility] Comment on above: Performed By: #### L [id number] #### Chief Wellness Officer: CALE LEON ([phone]) [facility] [employer] ([employer]) [address] [place] [address] Potassium [Moles/Vol] 3.8 mmol/L Normal 3.5-5.1 [facility] Comment on above: Result Comment: [facility] potassium values may be up to 0.5 mmol/L lower than serum values. Performed By: #### L [id number] #### Chief Wellness Officer: CALE LEON ([phone]) [facility] ESTELA [employer] ([employer]) [address] [place] [address] [place] Protein [Mass/Vol] 6.9 g/dL Normal 6.4-8.3 [facility] Comment on above: Performed By: #### L [id number] #### Chief Wellness Officer: CALE LEON ([phone]) [facility] ([facility]) [address] [place] [address] Sodium [Moles/Vol] 141 mmol/L Normal 136-145 [facility] Comment on above: Performed By: #### L [id number] #### Chief Wellness Officer: CALE LEON ([phone]) [facility] (SWRL[facility]) [address] Urea nitrogen [Mass/Vol] 12 mg/dL Normal 8-21 [facility] Comment on above: Performed By: #### L [id number] #### Chief Wellness Officer: CALE LEON ([phone]) [facility] (SW[facility]) [address] Comprehensive metabolic 1998 panelon 01-08-2025 Albumin [Mass/Vol] 4.3 g/dL 3.5 - 5.0 g/dL [facility] ALP [Catalytic activity/Vol] 62 U/L 40 - 150 U/L [facility] ALT [Catalytic activity/Vol] 11 U/L [facility] U/L [facility] Anion gap [Moles/Vol] 7 mmol/L 3 - 13 mmol/L [facility] AST [Catalytic activity/Vol] 17 U/L [facility] - 34 U/L [facility] Bilirubin [Mass/Vol] 0.6 mg/dL NINF - 1.2 mg/dL [facility] Calcium [Mass/Vol] 8.8 mg/dL 8.4 - 10. 2 mg/dL [facility] Chloride [Moles/Vol] 107 mmol/L 98 - 10 7 mmol/L [facility] CO2 [Moles/Vol] 27 mmol/L 22 - 29 mmol/L [facility] Creatinine [Mass/Vol] 0.77 mg/dL 0.57 - 1.11 mg/dL [facility] GFR/1.73 sq M.predicted (S/P/Bld) [Vol rate/Area] - PINF [facility] Comment on above: Calculation based on the Chronic Kidney Disease Epidemiology Collaboration (CKD-EPI) equation refit without adjustment for race Glucose [Mass/Vol] 88 mg/dL 74 - 100 mg/dL [facility] Interpretation and review of laboratory results Normal [facility] Potassium [Moles/Vol] 3.8 mmol/L 3.5 - 5.1 mmol/L [facility] Comment on above: Plasma potassium phillip ues may be up to 0.5 mmol/L lower than serum values. Protein [Mass/Vol] 6.9 g/dL 6.4 - 8.3 g/dL [facility] Sodium [Moles/Vol] 141 mmol/L 136 - 145 mmol/L [facility] Urea nitrogen [Mass/Vol] 12 mg/dL 8 - 21 mg/d L [facility] ED Nursing Noteon 01-08-2025 ED Nursing Note Patient arrived via wheelchair to room 5 with male visitor. Patient complains of SOB since yesterday. Patient has hx of asthma and has been using her inhalers with no relief. Patient audibly wheezing. Patient states muscles in chest feel tight and it hurts to take a deep breath. Normal [facility] ED Provider Noteon ED Provider Note [...] Insecurity: No Food Insecurity (10/18/2024) Received from [facility] Hunger Vital Sign ? Worried About Running Out of Food in the Last Year: Never true ? Ran Out of Food in the Last Year: Never true Transportation Needs: No Transportation Needs (10/18/2024) Received from [facility] PRAPARE - Transportation ? Lack of Transportation (Medical): No ? Lack of Transportation (Non-Medical): No Housing Stability: Unknown (10/18/2024) Received from [facility] Housing Stability Vital Sign ? Unable [...] Signed Date/Time: (more content not included)... Normal [facility] Laboratory - Microbiology an d Antimicrobial susceptibilityon 01-08-2025 FLUAV RNA DAJA+probe Ql (Resp) Not detected Not Detected [facility] FLUBV RNA DAJA+probe Ql (Resp) Not detected Not Detected [facility] RSV RNA DAJA+probe Ql (Resp) Not detected Not Detected [facility] SARS-CoV-2 (COVID-19) RNA DAJA+probe Ql (Resp) Not detected Not Detected [facility] SARS-CoV-2 (COVID-19) RNA DAJA+probe Ql (Unsp spec) Methodology: real-time, RT-PCR The SARS-CoV-2, Flu A/B, and RSV Combo assay is intended for in vitro diagnostic use under the FDA Emergency Use Authorization (EUA). This test has not been FDA cleared or approved. In compliance with this authorization, please visit www.fda.gov/media/354 408/download or www.fda.gov/media/205 436/download to access the applicable information sheets. [facility] SARS-COV-2, FLU A/B, AND RSV COMBOon [...] In compliance with this authorization, please visit www.fda.gov/media/354 173/download or www.fda.gov/media/901 750/download to access the applicable information sheets. Normal [facility] Comment on above: Performed By: #### L [id number] #### Chief Wellness Officer: CALE LEON ([phone]) [facility] [address] [place] [address] SARS-CoV-2, Flu A/B, and RSV Comboon 01-08-2025 Interpretation and review of laboratory results Normal [facility] XR Chest Single viewon 01-08 No acute cardiopulmonary process identified. Report Dictated on Electronically Signed By: Damon Mccauley MD Electronically Signed Date/Time: 01/08/2025 2:40 AM EDT [facility] Patient Name: CARINE BARBA : 1990 Exam Date/Time: 01/08/2025 02:04 Procedure: XR CHEST [...] identified. ORIF of the left clavicle noted. [facility] Damon Mccauley MD - 01/08/2025 Patient Name: CARINE BARBA : 1990 Exam Date/Time: 01/08/2025 02:04 Procedure: XR CHEST [...] Electronically Signed Date/Time: 01/08/2025 2:40 AM EDT [facility] [place] Radiology Study observation (narrative) [facility] XR Chest Single viewOrdered By: Damon Mccauley on 01-08-2025 [facility] [employer] Work Phone: CBC panel Auto (Bld)on 10-20 Erythrocyte distribution width (RBC) [Ratio] 12.9 % Normal 11.5-15.0 [facility] Comment on above: Order Comment: Jayne almonte Type: BLOOD SPECIMENOrdering Facility: [facility] Address: [address] [place] [address] Performed By: #### 5 8410-2 ####[facility] LABORATORYCLIA [id number] [address] Hematocrit (Bld) [Volume fraction] 42.2 % Normal 36.0-46.0 [facility] Comment on above: Order Comment: Jayne almonte Type: BLOOD SPECIMENOrdering Facility: [facility] Address: [address] [place] [address] Performed By: #### 5 8410-2 ####QUIRO[facility] LABORATORYCLIA [id number] [address] [place] Hemoglobin (Bld) [Mass/Vol] 13.8 g/dL Normal 11.5-15.5 [facility] Comment on above: Order Comment: Jayne almonte Type: BLOOD SPECIMENOrdering Facility: [facility] Address: [address] [place] [address] Performed By: #### 5 8410-2 ####QUIROZ LABORATORYCLIA [id number] [address] [place] MCH (RBC) [Entitic mass] 31.8 pg Normal 26.0-34.0 [facility] Comment on above: Order Comment: Speci men Type: BLOOD SPECIMENOrdering Facility: [facility] Address: [address] [place] [address] Performed By: #### 5 8410-2 ####QUIROZ LABORATORYCLIA [id number] [address] [place] MCHC (RBC) [Mass/Vol] 32.7 g/dL Normal 30.5-36.0 [facility] Comment on above: Order Comment: Speci men Type: BLOOD SPECIMENOrdering Facility: [facility] Address: [address] [place] [address] Performed By: #### 5 8410-2 ####QUIROZ LABORATORYCLIA [id number] [address] [place] MCV (RBC) [Entitic vol] 97.2 fL Normal 80.0-100.0 [facility] Comment on above: Order Comment: Speci men Type: BLOOD SPECIMENOrdering Facility: [facility] Address: [address] [place] [address] Performed By: #### 5 8410-2 ####QUIROZ LABORATORYCLIA [id number] [address] [place] Nucleated RBC (Bld) [#/Vol] 10*3/uL Normal <0.01 [facility] Comment on above: Order Comment: Speci men Type: BLOOD SPECIMENOrdering Facility: [facility] Address: [address] [place] [address] Performed By: #### 5 8410-2 ####QUIROZ LABORATORYCLIA [id number] [address] [place] Platelet mean volume (Bld) [Entitic vol] 10.0 fL Normal 9.0-12.7 [facility] Comment on above: Order Comment: Speci men Type: BLOOD SPECIMENOrdering Facility: [facility] Address: [address] [place] [address] Performed By: #### 5 8410-2 ####QUIROZ LABORATORYCLIA [id number] [address] [place] Platelets (Bld) [#/Vol] 238 10*3/uL Normal 150-400 [facility] Comment on above: Order Comment: Speci men Type: BLOOD SPECIMENOrdering Facility: [facility] Address: [address] [place], [place] [id number] Performed By: #### 5 8410-2 ####OTTERTAIL LABORATORYCLIA [id number] [address] OF [facility] RBC (Bld) [#/Vol] 4.34 10*6/uL Normal 3.90-5.20 [facility] Comment on above: Order Comment: Speci men Type: BLOOD SPECIMENOrdering Facility: [facility] Address: [address] [place], [place] [id number] Performed By: #### 5 8410-2 ####OTTERTAIL LABORATORYCLIA [id number] [address] WBC (Bld) [#/Vol] 7.49 10*3/uL Normal 3.70-11.00 [facility] Comment on above: Order Comment: Speci men Type: BLOOD SPECIMENOrdering Facility: [facility] Address: [address] [place] [address] Performed By: #### 5 8410-2 ####OTTERTAIL LABORATORYCLIA [id number] [address] OF [facility] CNCOon 10-20-2024 CNCO Letter Text Normal [facility] CNDSon 10-20-2024 CNDS HNO ID: [id number] Author: NALDO RYAN MD Service: General Internal [...] (Oral) Resp 20 Ht 170.2 cm (5' 7) Wt 75.5 kg (166 lb 7.2 oz) [...] These medications were sent to e- [id number] [place] [address] - [address] [facility] - [phone] [place] [address] guaiFENesin 600 mg 12 hr tablet levoFLOXacin [...] Management, and RN I have performed the [id number] and relevant services for a total of < 30 minutes. SIGNATURE: Naldo Ryan MD DATE: October 20, 2024 TIME: 9:58 AM Normal [facility] Comprehensive metabolic 2000 panelon 10-20-2024 Albumin [Mass/Vol] 4.0 g/dL Normal 3.9-4.9 [facility] Comment on above: Order Comment: Jayne almonte Type: BLOOD SPECIMENOrdering Facility: [facility] Address: [address] [place] [address] Performed By: #### 2 4323-8 ####OTTERTAIL LABORATORYCLIA [id number] [address] STATES OF [facility] ALP [Catalytic activity/Vol] 86 U/L Normal 34-123 [facility] Comment on above: Order Comment: Jayne almonte Type: BLOOD SPECIMENOrdering Facility: [facility] Address: [address] [place] [address] Performed By: #### 2 4323-8 ####OTTERTAIL LABORATORYCLIA [id number] [address] OF [facility] ALT [Catalytic activity/Vol] 32 U/L Normal 7-38 [facility] Comment on above: Order Comment: Jayne almonte Type: BLOOD SPECIMENOrdering Facility: [facility] Address: [address] [place] [address] Performed By: #### 2 4323-8 ####QUIROZ LABORATORYCLIA [id number] [place] [address] [place] Anion gap [Moles/Vol] 7 mmol/L Low 8-15 [facility] Comment on above: Order Comment: Speci men Type: BLOOD SPECIMENOrdering Facility: [facility] Address: [address] [place] [address] Performed By: #### 2 4323-8 ####QUIROZ LABORATORYCLIA [id number] [place] [address] [place] AST [Catalytic activity/Vol] 19 U/L Normal 13-35 [facility] Comment on above: Order Comment: Speci men Type: BLOOD SPECIMENOrdering Facility: [facility] Address: [address] [place] [address] Performed By: #### 2 4323-8 ####QUIROZ LABORATORYCLIA [id number] [address] [place] Bilirubin [Mass/Vol] 0.3 mg/dL Normal 0.2-1.3 [facility] Comment on above: Order Comment: Speci men Type: BLOOD SPECIMENOrdering Facility: [facility] Address: [address] [place] [address] Performed By: #### 2 4323-8 ####QUIROZ LABORATORYCLIA [id number] [address] OF [facility] Calcium [Mass/Vol] 9.6 mg/dL Normal 8.5-10.2 [facility] Comment on above: Order Comment: Speci men Type: BLOOD SPECIMENOrdering Facility: [facility] Address: [address] [place] [address] Performed By: #### 2 4323-8 ####QUIROZ LABORATORYCLIA [id number] [address] [place] Chloride [Moles/Vol] 98 mmol/L Normal 98-107 [facility] Comment on above: Order Comment: Speci men Type: BLOOD SPECIMENOrdering Facility: [facility] Address: [address] [place] [address] Performed By: #### 2 4323-8 ####QUIROZ LABORATORYCLIA [id number] [address] [place] CO2 [Moles/Vol] 32 mmol/L High 22-30 [facility] Comment on above: Order Comment: Speci men Type: BLOOD SPECIMENOrdering Facility: [facility] Address: [address] [place] [address] Performed By: #### 2 4323-8 ####QUIROZ LABORATORYCLIA [id number] [address] Creatinine [Mass/Vol] 0.70 mg/dL Normal 0.58-0.96 [facility] Comment on above: Order Comment: Speci men Type: BLOOD SPECIMENOrdering Facility: [facility] Address: [address] [place] [address] Performed By: #### 2 4323-8 ####QUIROZ LABORATORYCLIA [id number] [address] Creatinine and Glomerular filtration rate.predicted panel (S/P/Bld) 117 mL/min/1.73m??? Normal >=60 [facility] Comment on above: Order Comment: Speci men Type: BLOOD SPECIMENOrdering Facility: [facility] Address: [address] [place] [address] Result Comment: Vidhi mated Glomerular Filtration Rate [...] Performed By: #### 2 4323-8 ####QUIROZ LABORATORYCLIA [id number] [address] OF [facility] Glucose [Mass/Vol] 134 mg/dL High 74-99 [facility] Comment on above: Order Comment: Jayne almonte Type: BLOOD SPECIMENOrdering Facility: [facility] Address: [address] [place] [address] Result Comment: The [place] [employer] (ADA) provides guidance for cutoff [...] Standards of Medical Care in Diabetes 2016, [place] [employer]. Diabetes Care. 2016.39(Suppl 1). Performed By: #### 2 4323-8 ####QUIROZ LABORATORYCLIA [id number] [place] [address] [place] Potassium [Moles/Vol] 5.5 mmol/L High 3.7-5.1 [facility] Comment on above: Order Comment: Speci men Type: BLOOD SPECIMENOrdering Facility: [facility] Address: [address] [place] [address] Performed By: #### 2 4323-8 ####QUIROZ LABORATORYCLIA [id number] [place] [address] [place] Protein [Mass/Vol] 6.8 g/dL Normal 6.3-8.0 [facility] Comment on above: Order Comment: Speci men Type: BLOOD SPECIMENOrdering Facility: [facility] Address: [address] [place] [address] Performed By: #### 2 4323-8 ####QUIROZ LABORATORYCLIA [id number] [place] [address] [place] Sodium [Moles/Vol] 137 mmol/L Normal 136-144 [facility] Comment on above: Order Comment: Speci men Type: BLOOD SPECIMENOrdering Facility: [facility] Address: [address] [place] [address] Performed By: #### 2 4323-8 ####QUIROZ LABORATORYCLIA [id number] [place] [address] [place] Urea nitrogen [Mass/Vol] 17 mg/dL Normal 7-21 [facility] Comment on above: Order Comment: Speci men Type: BLOOD SPECIMENOrdering Facility: [facility] Address: [address] [place] [address] Performed By: #### 2 4323-8 ####QUIROZ LABORATORYCLIA [id number] [place] [address] [place] ALLIED HEALTHon 10-19-2024 ALLIED HEALTH HNO ID: [id number] Author: SARAH GALLOWAY RN Service: Infection Prevention [...] 19, 2024 TIME: 9:02 AM PAGER/CONTACT #: [phone] Infection Prevention after hours/weekend pager: Contact Nursing Welder Apprentice Combination Normal [facility] Bacteria Spec Resp Culton Bacteria identified Respiratory culture Nom (Unsp spec) ORGANISM ID: 1 Few normal respiratory placido GRAM STAIN: No organisms seen No Polymorphonuclear Leukocytes Abnormal [facility] Comment on above: Performed By: #### 3 2355-0 ####[facility] LABCLIA [id number] [facility] [place] [address] [place] CBC panel Auto (Bld)on 10-19 Erythrocyte distribution width (RBC) [Ratio] 13.1 % Normal 11.5-15.0 [facility] Comment on above: Order Comment: Speci men Type: BLOOD SPECIMENOrdering Facility: [facility] Address: [address] [place] [address] Performed By: #### 5 8410-2 ####QUIROZ LABORATORYCLIA [id number] [place] [address] [place] Hematocrit (Bld) [Volume fraction] 41.0 % Normal 36.0-46.0 [facility] Comment on above: Order Comment: Speci men Type: BLOOD SPECIMENOrdering Facility: [facility] Address: [address] [place] [address] Performed By: #### 5 8410-2 ####QUIROZ LABORATORYCLIA [id number] [address] [place] Hemoglobin (Bld) [Mass/Vol] 13.7 g/dL Normal 11.5-15.5 [facility] Comment on above: Order Comment: Speci men Type: BLOOD SPECIMENOrdering Facility: [facility] Address: [address] [place] [address] Performed By: #### 5 8410-2 ####QUIROZ LABORATORYCLIA [id number] [address] MCH (RBC) [Entitic mass] 31.9 pg Normal 26.0-34.0 [facility] Comment on above: Order Comment: Speci men Type: BLOOD SPECIMENOrdering Facility: [facility] Address: [address] [place] [address] Performed By: #### 5 8410-2 ####QUIROZ LABORATORYCLIA [id number] [address] STATES [facility] MCHC (RBC) [Mass/Vol] 33.4 g/dL Normal 30.5-36.0 [facility] Comment on above: Order Comment: Speci men Type: BLOOD SPECIMENOrdering Facility: [facility] Address: [address] [place] [address] Performed By: #### 5 8410-2 ####QUIROZ LABORATORYCLIA [id number] [address] [place] MCV (RBC) [Entitic vol] 95.6 fL Normal 80.0-100.0 [facility] Comment on above: Order Comment: Speci men Type: BLOOD SPECIMENOrdering Facility: [facility] Address: [address] [place] [address] Performed By: #### 5 8410-2 ####QUIROZ LABORATORYCLIA [id number] [address] Nucleated RBC (Bld) [#/Vol] 10*3/uL Normal <0.01 [facility] Comment on above: Order Comment: Speci men Type: BLOOD SPECIMENOrdering Facility: [facility] Address: [facility] [place] [address] Performed By: #### 5 8410-2 ####QUIROZ LABORATORYCLIA [id number] [place] [address] [place] Platelet mean volume (Bld) [Entitic vol] 10.0 fL Normal 9.0-12.7 [facility] Comment on above: Order Comment: Speci men Type: BLOOD SPECIMENOrdering Facility: [facility] Address: [address] [place] [address] Performed By: #### 5 8410-2 ####QUIROZ LABORATORYCLIA [id number] [place] [address] [place] Platelets (Bld) [#/Vol] 234 10*3/uL Normal 150-400 [facility] Comment on above: Order Comment: Speci men Type: BLOOD SPECIMENOrdering Facility: [facility] Address: [address] [place] [address] Performed By: #### 5 8410-2 ####QUIROZ LABORATORYCLIA [id number] [place] [address] [place] RBC (Bld) [#/Vol] 4.29 10*6/uL Normal 3.90-5.20 [facility] Comment on above: Order Comment: Speci men Type: BLOOD SPECIMENOrdering Facility: [facility] Address: [address] [place] [address] Performed By: #### 5 8410-2 ####QUIROZ LABORATORYCLIA [id number] [place] [address] [place] WBC (Bld) [#/Vol] 7.30 10*3/uL Normal 3.70-11.00 [facility] Comment on above: Order Comment: Speci men Type: BLOOD SPECIMENOrdering Facility: [facility] Address: [address] [place] [address] Performed By: #### 5 8410-2 ####QUIROZ LABORATORYCLIA [id number] [address] Comprehensive metabolic 2000 panelon 10-19-2024 Albumin [Mass/Vol] 3.6 g/dL Low 3.9-4.9 [facility] Comment on above: Order Comment: Speci men Type: BLOOD SPECIMENOrdering Facility: [facility] Address: [address] [place] [address] Performed By: #### 2 4323-8 ####QUIROZ LABORATORYCLIA [id number] [place] [address] [place] ALP [Catalytic activity/Vol] 96 U/L Normal 34-123 [facility] Comment on above: Order Comment: Speci men Type: BLOOD SPECIMENOrdering Facility: [facility] Address: [address] [place] [address] Performed By: #### 2 4323-8 ####QUIROZ LABORATORYCLIA [id number] [address] ALT [Catalytic activity/Vol] 33 U/L Normal 7-38 [facility] Comment on above: Order Comment: Speci men Type: BLOOD SPECIMENOrdering Facility: [facility] Address: [address] [place] [address] Performed By: #### 2 4323-8 ####QUIROZ LABORATORYCLIA [id number] [address] [place] Anion gap [Moles/Vol] 8 mmol/L Normal 8-15 [facility] Comment on above: Order Comment: Speci men Type: BLOOD SPECIMENOrdering Facility: [facility] Address: [address] [place] [address] Performed By: #### 2 4323-8 ####UQIROZ LABORATORYCLIA [id number] [address] [place] AST [Catalytic activity/Vol] 25 U/L Normal 13-35 [facility] Comment on above: Order Comment: Speci men Type: BLOOD SPECIMENOrdering Facility: [facility] Address: [address] [place] [address] Performed By: #### 2 4323-8 ####QUIROZ LABORATORYCLIA [id number] [place] [address] [place] Bilirubin [Mass/Vol] 0.4 mg/dL Normal 0.2-1.3 [facility] Comment on above: Order Comment: Speci men Type: BLOOD SPECIMENOrdering Facility: [facility] Address: [address] [place] [address] Performed By: #### 2 4323-8 ####QUIROZ LABORATORYCLIA [id number] [place] [address] [place] Calcium [Mass/Vol] 9.1 mg/dL Normal 8.5-10.2 [facility] Comment on above: Order Comment: Speci men Type: BLOOD SPECIMENOrdering Facility: [facility] Address: [address] [place] [address] Performed By: #### 2 4323-8 ####QUIROZ LABORATORYCLIA [id number] [place] [address] [place] Chloride [Moles/Vol] 99 mmol/L Normal 98-107 [facility] Comment on above: Order Comment: Speci men Type: BLOOD SPECIMENOrdering Facility: [facility] Address: [address] [place] [address] Performed By: #### 2 4323-8 ####QUIROZ LABORATORYCLIA [id number] [place] [address] [place] CO2 [Moles/Vol] 30 mmol/L Normal 22-30 [facility] Comment on above: Order Comment: Speci men Type: BLOOD SPECIMENOrdering Facility: [facility] Address: [address] [place] [address] Performed By: #### 2 4323-8 ####QUIROZ LABORATORYCLIA [id number] [place] [address] [place] Creatinine [Mass/Vol] 0.75 mg/dL Normal 0.58-0.96 [facility] Comment on above: Order Comment: Speci men Type: BLOOD SPECIMENOrdering Facility: [facility] Address: [address] [place] [address] Performed By: #### 2 4323-8 ####QUIROZ LABORATORYCLIA [id number] [place] [address] [place] Creatinine and Glomerular filtration rate.predicted panel (S/P/Bld) 108 mL/min/1.73m??? Normal >=60 [facility] Comment on above: Order Comment: Jayne almonte Type: BLOOD SPECIMENOrdering Facility: [facility] Address: [address] [place] [address] Result Comment: Vidhi mated Glomerular Filtration Rate [...] Performed By: #### 2 4323-8 ####QUIROZ LABORATORYCLIA [id number] [place] [address] [place] Glucose [Mass/Vol] 117 mg/dL High 74-99 [facility] Comment on above: Order Comment: Jayne almonte Type: BLOOD SPECIMENOrdering Facility: [facility] Address: [address] [place] [address] Result Comment: The [place] Diabetes [employer] (ADA) provides guidance for cutoff [...] Standards of Medical Care in Diabetes 2016, [place] [employer]. Diabetes Care. 2016.39(Suppl 1). Performed By: #### 2 4323-8 ####QUIROZ LABORATORYCLIA [id number] [place] [id number] [place] Potassium [Moles/Vol] 4.9 mmol/L Normal 3.7-5.1 [facility] Comment on above: Order Comment: Jayne almonte Type: BLOOD SPECIMENOrdering Facility: [facility] Address: [address] [place] [address] Performed By: #### 2 4323-8 ####QUIROZ LABORATORYCLIA [id number] [address] [place] Protein [Mass/Vol] 6.6 g/dL Normal 6.3-8.0 [facility] Comment on above: Order Comment: Speci men Type: BLOOD SPECIMENOrdering Facility: [facility] Address: [address] [place] [address] Performed By: #### 2 4323-8 ####QUIROZ LABORATORYCLIA [id number] [address] [place] Sodium [Moles/Vol] 137 mmol/L Normal 136-144 [facility] Comment on above: Order Comment: Speci men Type: BLOOD SPECIMENOrdering Facility: [facility] Address: [address] [place] [address] Performed By: #### 2 4323-8 ####QUIROZ LABORATORYCLIA [id number] [address] [place] Urea nitrogen [Mass/Vol] 18 mg/dL Normal 7-21 [facility] Comment on above: Order Comment: Speci men Type: BLOOD SPECIMENOrdering Facility: [facility] Address: [address] [place] [address] Performed By: #### 2 4323-8 ####QUIROZ LABORATORYCLIA [id number] [place] [id number] [facility] [place] ALLIED HEALTHon 10-18-2024 ALLIED HEALTH HNO ID: [id number] Author: FAUSTINO NICE CT Service: Radiology Author [...] PATIENT PRESENTS WITH AN IMPLANTABLE OR ATTACHED SEWER HEAD: No RADIOLOGY DEPARTMENT: CT; Exam(s) Completed: PE Study PERIPHERAL IV DATA: Inpatient: see LDA documentation SIGNED BY: FABIO Givens October 18, 2024 12:48 PM [facility] HNO ID: [id number] Author: IDALIA LOPEZ RT(R) Service: Radiology Author Type: Printing Agent Type: Allied Health Filed: 10/18/2024 11:48 Note [...] PATIENT PRESENTS WITH AN IMPLANTABLE OR ATTACHED SEWER HEAD: No RADIOLOGY DEPARTMENT: General X-ray: Exam(s) Completed: Chest X-Ray PERIPHERAL IV DATA: Not applicable SIGNED BY: RT Lona([place]) October 18, 2024 11:47 AM [facility] CASE MGT INIT [facility] 2023 CASE MGT INIT [facility] HNO ID: [id number] Author: FAWN LONGO LSW Service: ASSESSMENT Author Type: Sail Cutter Type: Care Mgt Initial Assessment Filed: 10/18/2024 23:23 Note Text: CARE MANAGEMENT: ASSESSMENT AND DISCHARGE PLAN SERVICE DATE: October 18, 2024 SERVICE TIME: 11:19 PM PCP: No primary care provider on file. Primary Contact: Extended Emergency Contact Information Primary Emergency Contact: Randell Scanlon Mobile Relation: Significant other Admission Status: Inpatient Insurance Provider: [facility] MEDICAID Discharge Planning requested by: Per Department Practice Potential Transition Plans Home;To Be Determined Advance Directives Current Advance Directive: Health Care Power of Technical Sales Support Manager;Living Will In Chart: No Embedded Case Manager Attempted to Assist with AD Completion: Yes [...] General wellness, Be able to go home Bryan of Choice Explained: Bryan of Choice Given: No Reason Not Given: [...] of services. No equipment use. Pt uses [facility], in [place]. Sig other will p/u on d/c. CM will follow with d/c planning needs. SIGNATURE: DICK Colon, ACCelina PATIENT NAME: Carine Barba DATE: October 18, 2024 TIME: 11:18 PM Normal [facility] CBC W Auto Differential pane l (Bld)on 10-18-2024 Basophils (Bld) [#/Vol] 10*3/uL Normal <0.11 [facility] Comment on above: Order Comment: Speci men Type: BLOOD SPECIMENOrdering Facility: [facility] Address: [address] [place] [address] Performed By: #### 5 7021-8 ####QUIROZ LABORATORYCLIA [id number] [place] [address] [place] Basophils/100 WBC (Bld) 0.2 % Normal [facility] Comment on above: Order Comment: Speci men Type: BLOOD SPECIMENOrdering Facility: [facility] Address: [address] [place] [address] Performed By: #### 5 7021-8 ####QUIROZ LABORATORYCLIA [id number] [place] [address] [place] Differential cell count method Nom (Bld) Auto Normal [facility] Comment on above: Order Comment: Speci men Type: BLOOD SPECIMENOrdering Facility: [facility] Address: [address] [place] [address] Performed By: #### 5 7021-8 ####QUIROZ LABORATORYCLIA [id number] [place] [address] [place] Eosinophils (Bld) [#/Vol] 10*3/uL Normal <0.46 [facility] Comment on above: Order Comment: Speci men Type: BLOOD SPECIMENOrdering Facility: [facility] Address: [address] [place] [address] Performed By: #### 5 7021-8 ####QUIROZ LABORATORYCLIA [id number] [address] [place] Eosinophils/100 WBC (Bld) 0.0 % Normal [facility] Comment on above: Order Comment: Speci men Type: BLOOD SPECIMENOrdering Facility: [facility] Address: [address] [place] [address] Performed By: #### 5 7021-8 ####QUIROZ LABORATORYCLIA [id number] [place] [address] [place] Erythrocyte distribution width (RBC) [Ratio] 13.2 % Normal 11.5-15.0 [facility] Comment on above: Order Comment: Speci men Type: BLOOD SPECIMENOrdering Facility: [facility] Address: [address] [place] [address] Performed By: #### 5 7021-8 ####QUIROZ LABORATORYCLIA [id number] [place] [address] [place] Hematocrit (Bld) [Volume fraction] 39.6 % Normal 36.0-46.0 [facility] Comment on above: Order Comment: Speci men Type: BLOOD SPECIMENOrdering Facility: [facility] Address: [address] [place] [address] Performed By: #### 5 7021-8 ####QUIROZ LABORATORYCLIA [id number] [place] [address] [place] Hemoglobin (Bld) [Mass/Vol] 13.3 g/dL Normal 11.5-15.5 [facility] Comment on above: Order Comment: Speci men Type: BLOOD SPECIMENOrdering Facility: [facility] Address: [address] [place] [address] Performed By: #### 5 7021-8 ####QUIROZ LABORATORYCLIA [id number] [place] [address] [place] Immature granulocytes (Bld) [#/Vol] 0.03 10*3/uL Normal <0.10 [facility] Comment on above: Order Comment: Speci men Type: BLOOD SPECIMENOrdering Facility: [facility] Address: [address] [place] [address] Performed By: #### 5 7021-8 ####QUIROZ LABORATORYCLIA [id number] [place] [address] [place] Immature granulocytes/100 WBC (Bld) 0.3 % Normal [facility] Comment on above: Order Comment: Speci men Type: BLOOD SPECIMENOrdering Facility: [facility] Address: [address] [place] [address] Performed By: #### 5 7021-8 ####QUIROZ LABORATORYCLIA [id number] [place] [address] [place] Lymphocytes (Bld) [#/Vol] 2.48 10*3/uL Normal 1.00-4.00 [facility] Comment on above: Order Comment: Speci men Type: BLOOD SPECIMENOrdering Facility: [facility] Address: [address] [place] [address] Performed By: #### 5 7021-8 ####QUIROZ LABORATORYCLIA [id number] [address] STATES [facility] Lymphocytes/100 WBC (Bld) 25.1 % Normal [facility] [facility] Comment on above: Order Comment: Speci men Type: BLOOD SPECIMENOrdering Facility: [facility] Address: [address] [place] [address] Performed By: #### 5 7021-8 ####QU[facility] LABORATORYCLIA [id number] [address] STATES [facility] MCH (RBC) [Entitic mass] 32.4 pg Normal 26.0-34.0 [facility] Comment on above: Order Comment: Speci men Type: BLOOD SPECIMENOrdering Facility: [facility] Address: [address] [place] [address] Performed By: #### 5 7021-8 ####QUIR[facility]Z LABORATORYCLIA [id number] [address] [place] MCHC (RBC) [Mass/Vol] 33.6 g/dL Normal 30.5-36.0 [facility] Comment on above: Order Comment: Speci men Type: BLOOD SPECIMENOrdering Facility: [facility] Address: [address] [place] [address] Performed By: #### 5 7021-8 ####QUIR[facility]Z LABORATORYCLIA [id number] [address] MCV (RBC) [Entitic vol] 96.4 fL Normal 80.0-100.0 [facility] Comment on above: Order Comment: Speci men Type: BLOOD SPECIMENOrdering Facility: [facility] Address: [address] [place] [address] Performed By: #### 5 7021-8 ####QUIROZ LABORATORYCLIA [id number] [address] Monocytes (Bld) [#/Vol] 0.65 10*3/uL Normal <0.87 [facility] Comment on above: Order Comment: Speci men Type: BLOOD SPECIMENOrdering Facility: [facility] Address: [address] [place] [address] Performed By: #### 5 7021-8 ####QUIROZ LABORATORYCLIA [id number] [place] [address] [place] Monocytes/100 WBC (Bld) 6.6 % Normal [facility] Comment on above: Order Comment: Speci men Type: BLOOD SPECIMENOrdering Facility: [facility] Address: [address] [place] [address] Performed By: #### 5 7021-8 ####QUIROZ LABORATORYCLIA [id number] [place] [address] [place] Neutrophils (Bld) [#/Vol] 6.69 10*3/uL Normal 1.45-7.50 [facility] Comment on above: Order Comment: Speci men Type: BLOOD SPECIMENOrdering Facility: [facility] Address: [address] [place] [address] Performed By: #### 5 7021-8 ####QUIROZ LABORATORYCLIA [id number] [place] [address] [place] Neutrophils/100 WBC (Bld) 67.8 % Normal [facility] Comment on above: Order Comment: Speci men Type: BLOOD SPECIMENOrdering Facility: [facility] Address: [address] [place] [address] Performed By: #### 5 7021-8 ####QUIROZ LABORATORYCLIA [id number] [place] [address] [place] Nucleated RBC (Bld) [#/Vol] 10*3/uL Normal <0.01 [facility] Comment on above: Order Comment: Speci men Type: BLOOD SPECIMENOrdering Facility: [facility] Address: [address] [place] [address] Performed By: #### 5 7021-8 ####QUIROZ LABORATORYCLIA [id number] [place] [address] [place] Nucleated RBC/100 WBC (Bld) [Ratio] 0.0 /100 WBC Normal [facility] Comment on above: Order Comment: Speci men Type: BLOOD SPECIMENOrdering Facility: [facility] Address: [address] [place] [address] Performed By: #### 5 7021-8 ####[facility] LABORATORYCLIA [id number] [place] [address] [place] Platelet mean volume (Bld) [Entitic vol] 9.8 fL Normal 9.0-12.7 [facility] Comment on above: Order Comment: Speci men Type: BLOOD SPECIMENOrdering Facility: [facility] Address: [address] [place] [address] Performed By: #### 5 7021-8 ####OTTERTA[facility] LABORATORYCLIA [id number] [place] [address] [place] [facility] [place] Platelets (Bld) [#/Vol] 250 10*3/uL Normal 150-400 [facility] Comment on above: Order Comment: Speci men Type: BLOOD SPECIMENOrdering Facility: [facility] Address: [address] [place] [address] Performed By: #### 5 7021-8 ####OTTERTAIL LABORATORYCLIA [id number] [place] [address] [place] [facility] [place] RBC (Bld) [#/Vol] 4.11 10*6/uL Normal 3.90-5.20 [facility] Comment on above: Order Comment: Speci men Type: BLOOD SPECIMENOrdering Facility: [facility] Address: [address] [place] [address] Performed By: #### 5 7021-8 ####OT[facility] LABORATORYCLIA [id number] [address] [place] WBC (Bld) [#/Vol] 9.87 10*3/uL Normal 3.70-11.00 [facility] Comment on above: Order Comment: Speci men Type: BLOOD SPECIMENOrdering Facility: [facility] Address: [address] [place] [address] Performed By: #### 5 7021-8 ####[facility] LABORATORYCLIA [id number] [address] CTA CHEST (NON GATED) W IVCO N PEon 10-18-2024 CTA CHEST (NON GATED) W IVCON PE * * *Final Report* * * DATE OF EXAM: Oct 18 2024 12:52PM [facility] - CTA CHEST (NON GATED) W [...] upper lobe likely secondary to atypical/viral pneumonia. Mcat Instructor: PSCOllie Transcribe Date/Time: Oct 18 2024 12:56P Dictated by : ROGELIO RIDER DO This examination was interpreted and the report reviewed and electronically signed by: ROGELIO RIDER DO on Oct 18 2024 1:14PM EST [id number] N Normal [facility] Comprehensive metabolic 2000 panelon 10-18-2024 Albumin [Mass/Vol] 4.0 g/dL Normal 3.9-4.9 [facility] Comment on above: Order Comment: Jayne almonte Type: BLOOD SPECIMENOrdering Facility: [facility] Address: [address] [place] [address] Performed By: #### 2 4323-8, [id number] ####QUIROZ LABORATORYCLIA [id number] [address] STATES OF [facility] ALP [Catalytic activity/Vol] 87 U/L Normal 34-123 [facility] Comment on above: Order Comment: Jayne almonte Type: BLOOD SPECIMENOrdering Facility: [facility] Address: [address] [id number] Performed By: #### 2 4323-8, [id number] ####[facility] LABORATORYCLIA [id number] [address] STATES [facility] ALT [Catalytic activity/Vol] 24 U/L Normal 7-38 [facility] Comment on above: Order Comment: Jayne almonte Type: BLOOD SPECIMENOrdering Facility: [facility] Address: [address] [place] [address] Performed By: #### 2 4323-8, [id number] ####QUIRO[facility] LABORATORYCLIA [id number] [place] [address] [place] Anion gap [Moles/Vol] 9 mmol/L Normal 8-15 [facility] Comment on above: Order Comment: Speci men Type: BLOOD SPECIMENOrdering Facility: [facility] Address: [address] [place] [address] Performed By: #### 2 4323-8, [id number] ####QUIROZ LABORATORYCLIA [id number] [place] [address] [place] AST [Catalytic activity/Vol] 29 U/L Normal 13-35 [facility] Comment on above: Order Comment: Speci men Type: BLOOD SPECIMENOrdering Facility: [facility] Address: [address] [place] [address] Performed By: #### 2 4323-8, [id number] ####QUIR[facility] LABORATORYCLIA [id number] [place] [address] [place] Bilirubin [Mass/Vol] 0.4 mg/dL Normal 0.2-1.3 [facility] Comment on above: Order Comment: Speci men Type: BLOOD SPECIMENOrdering Facility: [facility] Address: [address] [place] [address] Performed By: #### 2 4323-8, [id number] ####QUIR[facility] LABORATORYCLIA [id number] [place] [address] [place] Calcium [Mass/Vol] 9.2 mg/dL Normal 8.5-10.2 [facility] Comment on above: Order Comment: Speci men Type: BLOOD SPECIMENOrdering Facility: [facility] Address: [address] [id number] Performed By: #### 2 4323-8, [id number] ####QUIR[facility] LABORATORYCLIA [id number] [place] [address] [place] Chloride [Moles/Vol] 99 mmol/L Normal 98-107 [facility] Comment on above: Order Comment: Speci men Type: BLOOD SPECIMENOrdering Facility: [facility] Address: [address] [place] [address] Performed By: #### 2 4323-8, [id number] ####QUIRO[facility] LABORATORYCLIA [id number] [place] [address] [place] CO2 [Moles/Vol] 29 mmol/L Normal 22-30 [facility] Comment on above: Order Comment: Sethi gage Type: BLOOD SPECIMENOrdering Facility: [facility] Address: [address] [place] [address] Performed By: #### 2 4323-8, [id number] ####QUIR[facility] LABORATORYCLIA [id number] [place] [address] [place] Creatinine [Mass/Vol] 0.69 mg/dL Normal 0.58-0.96 [facility] Comment on above: Order Comment: Jayne almonte Type: BLOOD SPECIMENOrdering Facility: [facility] Address: [address] [place] [address] Performed By: #### 2 4323-8, [id number] ####QUIR[facility]Z LABORATORYCLIA [id number] [address] Creatinine and Glomerular filtration rate.predicted panel (S/P/Bld) 118 mL/min/1.73m??? Normal >=60 [facility] Comment on above: Order Comment: Jayne almonte Type: BLOOD SPECIMENOrdering Facility: [facility] Address: [address] [place] [address] Result Comment: Vidhi mated Glomerular Filtration Rate [...] actual GFR. Performed By: #### 2 4323-8, [id number] ####QUIR[facility]Z LABORATORYCLIA [id number] [address] [place] Glucose [Mass/Vol] 92 mg/dL Normal 74-99 [facility] Comment on above: Order Comment: Jayne almonte Type: BLOOD SPECIMENOrdering Facility: [facility] Address: [address] [phone] Result Comment: The [place] [employer] (ADA) provides guidance for cutoff [...] Standards of Medical Care in Diabetes 2016, [place] [employer]. Diabetes Care. 2016.39(Suppl 1). Performed By: #### 2 4323-8, [id number] ####QUIR[facility] LABORATORYCLIA [id number] [place] [address] [place] Potassium [Moles/Vol] 3.4 mmol/L Low 3.7-5.1 [facility] Comment on above: Order Comment: Speci men Type: BLOOD SPECIMENOrdering Facility: [facility] Address: [address] [place] [address] Performed By: #### 2 4323-8, [id number] ####QUIR[facility] LABORATORYCLIA [id number] [place] [address] [place] Protein [Mass/Vol] 6.9 g/dL Normal 6.3-8.0 [facility] Comment on above: Order Comment: Speci men Type: BLOOD SPECIMENOrdering Facility: [facility] Address: [address] [id number] Performed By: #### 2 4323-8, [id number] ####QUIR[facility] LABORATORYCLIA [id number] [place] [address] [place] Sodium [Moles/Vol] 137 mmol/L Normal 136-144 [facility] Comment on above: Order Comment: Speci men Type: BLOOD SPECIMENOrdering Facility: [facility] Address: [address] [id number] Performed By: #### 2 4323-8, [id number] ####QUIROZ LABORATORYCLIA [id number] [place] [id number] [place] Urea nitrogen [Mass/Vol] 14 mg/dL Normal 7- [facility] Comment on above: Order Comment: Speci men Type: BLOOD SPECIMENOrdering Facility: [facility] Address: [address] [place] [address] Performed By: #### 2 4323-8, [id number] ####[facility] LABORATORYCLIA [id number] [address] [place] ECG COMPLETEon 10-18-2024 ECG COMPLETE Ventricular Rate : 8 7 BPM Atrial Rate : 87 BPM P-R Interval : 144 ms QRS Duration : 90 ms Q-T Interval : 356 ms QTC Calculation(Bazett) : 428 ms Calculated P [place]cul[place] : 79 degrees Calculated R [place]ane[place] : 82 degrees Calculated T [place] : 52 degrees NORMAL SINUS RHYTHM WITH SINUS ARRHYTHMIA NONSPECIFIC T WAVE ABNORMALITY ABNORMAL ECG NO STEMI Confirmed by Dmitry VAZQUEZ ERIKA ([id number]), visual effects editor ABEL KIRK ([id number]) on 10/19/2024 9:44:13 AM NAME : CARINE BARBA PID : [id number] : 1990 Gender : Female Race : ORD : [id number] Procedure Date : Oct 18 2024 11:44:25 Edit Date : Oct 19 2024 09:44:16 Diagnosis: NORMAL SINUS RHYTHM WITH SINUS ARRHYTHMIA NONSPECIFIC T WAVE ABNORMALITY ABNORMAL ECG NO STEMI Confirmed by Dmitry VAZQUEZ ERIKA ([id number]), visual effects editor ABEL KIRK ([id number]) on 10/19/2024 9:44:13 AM Test Reason : Chest Pain Location : 1 : ER ED Overread By : Dmitry VAZQUEZ ERIKA Edited By : ABEL KIRK Referred By : , Acquired by : Steve VALDEZ [facility] ED PROV NOTEon 10-18-2024 ED PROV NOTE HNO ID: [id number] Author: VIVIEN ABDI DO Service: Emergency Medicine [...] 18, 2024 TIME: 3:48 PM PAGER/CONTACT #: KANDIS ABDIDNADOLFO Dinero 10/18/24 1549 [facility] ED PROV NOTE HNO ID: [id number] Author: ANA VAZQUEZ MD Service: ? Author Type: Physician Type: ED Provider Notes Filed: 10/18/2024 13:44 Note Text: ED Provider Note Patient Name: Carine Barba : 1990 SERVICE DATE: 10/18/24 History Patient presents with: Asthma: pt was seen multiple times and was admitted (everett)and left. and states they were not nice to her and she was getting worse and so she left and now states she still can't breath. 34-year-old female with history of asthma and DVT who presents with increasing shortness of breath, cough, and wheezing. Patient was seen at [facility] on the and overnight for the [...] increasing shortness (more content not included)... Normal [facility] HCG Preg Ur Qlon 10-18-2024 HCG ( test) Ql (U) Negative Normal Negative [facility] Comment on above: Order Comment: Speci men Type: URINE SPECIMENOrdering Facility: [facility] Address: [address] [place] [address] Result Comment: This test is intended to aid in the early detection of . Very dilute urine samples, as indicated by a low specific gravity, may not contain publications sales representative levels of hCG. This test detects [...] for . Performed By: #### 2 106-3 ####OT[facility] LABORATORYCLIA [id number] [place] [address] [place] HIGH SENSITIVITY TROPONIN T (INITIAL)on 10-18-2024 Troponin T.cardiac High sensitivity method [Mass/Vol] <6 Normal <12 [facility] Comment on above: Order Comment: Speci men Type: BLOOD SPECIMENOrdering Facility: [facility] Address: [address] [place] [address] Performed By: #### 2 4323-8, [id number] ####QUIROZ LABORATORYCLIA [id number] [place] [id number] [facility] HIGH SENSITIVITY TROPONIN T (SECOND)on 10-18-2024 Troponin T.cardiac High sensitivity method [Mass/Vol] <6 Normal <12 [facility] Comment on above: Order Comment: Speci men Type: BLOOD SPECIMENOrdering Facility: [facility] Address: [facility] [place] [address] Performed By: #### L OR1246, 54689-8 ####QUIROZ LABORATORYCLIA [id number] [place] [address] [facility] HISTORY PHYSICALon HISTORY PHYSICAL HNO ID: [id number] Author: SUNIL ROMERO MD Service: General Internal Medicine Author Type: Physician Type: H&P Filed: 10/18/2024 20:40 Note Text: [facility] STAFF PHYSICIAN NOTE OF PERSONAL INVOLVEMENT IN [...] counseling and/or coordinating care for the patient. [id number]-[id number] time was 35 minutes SIGNATURE: Sunil Romero MD DATE of SERVICE: October 18, 2024 TIME of SERVICE: 8:38 PM History and Physical Examination SERVICE DATE: 10/18/2024 SERVICE TIME: 6495 PCP: No primary care provider on file. PRIMARY ATTENDING: Sunil Fish MD Subjective CHIEF COMPLAINT: Asthma (pt was seen multiple times and was admitted (everett)and left. and states they were not nice to her and she was getting worse and so she left and now states she still can't breath. ) HPI: Patient is a 34-year-old female presenting from the ER for evaluation of for shortness of breath. Patient with a PMH of asthma and DVT. Patient noted to have recently been admitted to [facility] for similar concerns with breathing treatments and steroids. She states that her symptoms have progressively worsened since leaving [facility]. She reports ongoing shortness of breath [...] dysuria, fr (more content not included)... Normal [facility] Legionella Ag Ur Qlon 2023 Legionella sp Ag Ql (U) Negative Normal Negative [facility] Comment on above: Order Comment: Jayne almonte Type: URINE SPECIMENOrdering Facility: [facility] Address: [address] [place] [address] Result Comment: Legi carrollla urinary antigen test is used as an aid in diagnosis of infection with Legionella pneumophila serogroup 1. It may be detected from a few days to several months after onset of signs and symptoms despite antibiotic therapy or disease resolution. A negative result cannot exclude Legionellosis. Clinical correlation is required. Performed By: #### 3 2781-7 ####[facility] LABCLIA [id number] [place] [address] [place] Procalcitonin [facility] 12-19-2023 Procalcitonin [Mass/Vol] ng/mL Normal <0.09 [facility] Comment on above: Order Comment: Specbeto almonte Type: BLOOD SPECIMENOrdering Facility: [facility] Address: [address] [place] [address] Result Comment: For a guided interpretation of test results, please visit the Change in Procalcitonin Calculator, [email or web address]. Performed By: #### L [id number], 96339-7 ####OTTER[facility] LABORATORYCLIA [id number] [place] [address] [place] STAPHYLOCOCCUS AUREUS AND MR SA SCREEN, PCR, NASALon 10-18-2024 S. aureus and MRSA panel DAJA+probe (Nose) Not detected Normal Not Detected [facility] Comment on above: Order Comment: Speci men Type: SWABOrdering Facility: [facility] Address: [address] [place] [address] Performed By: #### S APCR ####[facility] LABCLIA [id number] [place] [address] [place] STREPTOCOCCUS PNEUMONIAE ANT IGEN URINEon 10-18-2024 STREPTOCOCCUS PNEUMONIAE ANTIGEN URINE STREP PNEUMO AG RESULT: Negative for Streptococcus pneumoniae antigen. Presumptive negative for pneumococcal pneumonia, suggesting no current or recent pneumococcal infection. Infection due to S.pneumoniae cannot be ruled out since the antigen present in the sample may be below the detection limit of the test. Normal [facility] Comment on above: Performed By: #### S PNAG ####[facility] LABCLIA [id number] [place] [address] [place] XR CHEST 1V FRONTAL PORTon 1 12-19-2023 XR CHEST 1V FRONTAL PORT * * *Final Repo rt* * * DATE OF EXAM: Oct 18 [...] RIGHT bilateral infrahilar opacities suggestive of pneumonia. Mcat Instructor: MARCIN Transcribe Date/Time: Oct 18 2024 11:48A Dictated by : ROGELIO RIDER, DO This examination was interpreted and the report reviewed and electronically signed by: ROGELIO RIDER DO on Oct 18 2024 11:49AM EST [id number] N Normal [facility] CBC W/Diff, Automatedon 12-2 Absolute Neut Normal 2.0-7.7 [facility] Comment on above: Result Comment: PT D ISCHARGED Performed By: #### L 100.0100, L500.4050 #### [facility] [address] [place], [address] HCT Normal 37-47 [facility] Comment on above: Result Comment: PT D ISCHARGED Performed By: #### L 100.0100, L500.4050 #### [facility] [address] [place], [address] HGB Normal 12.0-15.0 [facility] Comment on above: Result Comment: PT D ISCHARGED Performed By: #### L 100.0100, L500.4050 #### [facility] [address] [place], [address] MCH Normal 27.0-32.0 [facility] Comment on above: Result Comment: PT D ISCHARGED Performed By: #### L 100.0100, L500.4050 #### [facility] [address] [place], [address] MCHC Normal 32-36 [facility] Comment on above: Result Comment: PT D ISCHARGED Performed By: #### L 100.0100, L500.4050 #### [facility] [address] [place], [address] MCV Normal 81-99 [facility] Comment on above: Result Comment: PT D ISCHARGED Performed By: #### L 100.0100, L500.4050 #### [facility] [address] [place], [address] NEUT% Normal 47-70 [facility] Comment on above: Result Comment: PT D ISCHARGED Performed By: #### L 100.0100, L500.4050 #### [facility] [address] [place], [address] PLT Normal 150-450 [facility] Comment on above: Result Comment: PT D ISCHARGED Performed By: #### L 100.0100, L500.4050 #### [facility] [address] [place], [address] RBC Normal 4.2-5.4 [facility] Comment on above: Result Comment: PT D ISCHARGED Performed By: #### L 100.0100, L500.4050 #### [facility] [address] [place], [address] RDW CV Normal 11.6-14.6 [facility] Comment on above: Result Comment: PT D ISCHARGED Performed By: #### L 100.0100, L500.4050 #### [facility] [address] [place], [address] RDW SD Normal 35.1-43.9 [facility] Comment on above: Result Comment: PT D ISCHARGED Performed By: #### L 100.0100, L500.4050 #### [facility] [address] [place], [address] WBC Normal 4.4-11.0 [facility] Comment on above: Result Comment: PT D ISCHARGED Performed By: #### L 100.0100, L500.4050 #### [facility] [address] [place], [address] Comprehensive Metabolic Prof iloctavio 10-17-2024 ALB Normal 3.2-5.0 [facility] Comment on above: Result Comment: PT D ISCHARGED Performed By: #### L 100.0100, L500.4050 #### [facility] [address] [place], [address] ALK P Normal 45-117 [facility] Comment on above: Result Comment: PT D ISCHARGED Performed By: #### L 100.0100, L500.4050 #### [facility] [address] [place], [address] ALT Normal 13-56 [facility] Comment on above: Result Comment: PT D ISCHARGED Performed By: #### L 100.0100, L500.4050 #### [facility] [address] [place], [address] AST Normal 15-37 [facility] Comment on above: Result Comment: PT D ISCHARGED Performed By: #### L 100.0100, L500.4050 #### [facility] [address] [place], [address] BUN Normal 7-18 [facility] Comment on above: Result Comment: PT D ISCHARGED Performed By: #### L 100.0100, L500.4050 #### [facility] [address] [place], [address] BUN/CRE Normal 10-20 [facility] Comment on above: Result Comment: PT D ISCHARGED Performed By: #### L 100.0100, L500.4050 #### [facility] [address] [place], [address] CA,Total Normal 8.5-10.1 [facility] Comment on above: Result Comment: PT D ISCHARGED Performed By: #### L 100.0100, L500.4050 #### [facility] [address] [place], [address] CL Normal 98-107 [facility] Comment on above: Result Comment: PT D ISCHARGED Performed By: #### L 100.0100, L500.4050 #### [facility] [address] [place], [address] CO2 Normal 21.0-32.0 [facility] Comment on above: Result Comment: PT D ISCHARGED Performed By: #### L 100.0100, L500.4050 #### [facility] [address] [place], [address] CREAT,SERUM Normal 0.55-1.02 [facility] Comment on above: Result Comment: PT D ISCHARGED Performed By: #### L 100.0100, L500.4050 #### [facility] [address] [place], [address] EST GFR Normal >60 [facility] Comment on above: Result Comment: PT D ISCHARGED Performed By: #### L 100.0100, L500.4050 #### [facility] [address] [place], [address] EST GFR - AA Normal >60 [facility] Comment on above: Result Comment: PT D ISCHARGED Performed By: #### L 100.0100, L500.4050 #### [facility] [address] [place], [address] GAP Normal 5-15 [facility] Comment on above: Result Comment: PT D ISCHARGED Performed By: #### L 100.0100, L500.4050 #### [facility] [address] [place], [address] GLU Normal 74-106 [facility] Comment on above: Result Comment: PT D ISCHARGED Performed By: #### L 100.0100, L500.4050 #### [facility] [address] [place], [address] Potassium Normal 3.5-5.1 [facility] Comment on above: Result Comment: PT D ISCHARGED Performed By: #### L 100.0100, L500.4050 #### [facility] [address] [place], [address] T BILI Normal 0.20-1.00 [facility] Comment on above: Result Comment: PT D ISCHARGED Performed By: #### L 100.0100, L500.4050 #### [facility] [address] [place], [address] T PROT Normal 6.4-8.2 [facility] Comment on above: Result Comment: PT D ISCHARGED Performed By: #### L 100.0100, L500.4050 #### [facility] [address] [place], [address] Comprehensive Metabolic Profil Normal 136-145 [facility] Comment on above: Result Comment: PT D ISCHARGED Performed By: #### L 100.0100, L500.4050 #### [facility] [address] [place], [address] 12 Lead EKGon 10-16-2024 12 Lead EKG [facility] [address] [place] [address] 12 Lead EKG 10/16/24 0106 MR#: [id number] Acct: [id number] Name: CARINE BARBA Rep #: [id number] : 1990 34 From: Fly Love MD Attending Dr: Dr. Arjun Lagunas DO Status: DEP ER Ordering Dr: Arjun [...] T wave abnormality Abnormal ECG Confirmed by FLY LOVE MD ([id number]), visual effects editor STEPH FAGAN ([id number]) on 10/18/2024 2:25:59 PM Referred By: TB Confirmed By: FLY LOVE MD 10/18/24 1426 Date Fly Love MD CC: Dr. Arjun Lagunas, DO; No Primary Care Physician Signed Normal [facility] Basic Metabolic Profile (BMP )on 10-16-2024 BUN/CRE 17.3 RATIO Normal 10-20 [facility] Comment on above: Performed By: #### L 100.0100, L500.2500 ####[facility] [address] [place], [address] CA,Total 9.2 mg/dL Normal 8.5-10.1 [facility] Comment on above: Performed By: #### L 100.0100, L500.2500 ####[facility] [address] [place], [address] Chloride [Moles/Vol] 105 mmol/L Normal 98-107 [facility] Comment on above: Performed By: #### L 100.0100, L500.2500 ####[facility] [address] [place], [address] CO2 [Moles/Vol] 27.0 mmol/L Normal 21.0-32.0 [facility] Comment on above: Performed By: #### L 100.0100, L500.2500 ####[facility] [address] [place], [address] Creatinine [Mass/Vol] 0.87 mg/dL Normal 0.55-1.02 [facility] Comment on above: Result Comment: The validity of the calculated GFR GFRAA in patients over 70 years has not been determined. Clinical correlation is essential. Performed By: #### L 100.0100, L500.2500 ####[facility] [address] [place], [address] ECRCL 98.33 ml/min Normal [facility] Comment on above: Performed By: #### L 100.0100, L500.2500 ####[facility] [address] [place], [address] EST GFR - AA 96 mL/min Normal >60 [facility] Comment on above: Result Comment: Afri can Bahraini GFR Calc Performed By: #### L 100.0100, L500.2500 ####[facility] [address] [place], [address] GAP 6 Normal 5-15 [facility] Comment on above: Performed By: #### L 100.0100, L500.2500 ####[facility] [address] [place], [address] GFR/1.73 sq M.predicted among non-blacks MDRD (S/P/Bld) [Vol rate/Area] 80 mL/min/{1.73_m2} Normal >60 [facility] Comment on above: Result Comment: Non- GFR Calc Performed By: #### L 100.0100, L500.2500 ####[facility] [address] [place], [address] Glucose [Mass/Vol] 122 mg/dL High 74-106 [facility] Comment on above: Result Comment: Fast ing Glucose result from 100 to 125 mg/dL suggests IMPAIRED HOMEOSTASIS per A.D.A. criteria. Performed By: #### L 100.0100, L500.2500 ####[facility] [address] [place], [address] Potassium [Moles/Vol] 3.8 mmol/L Normal 3.5-5.1 [facility] Comment on above: Performed By: #### L 100.0100, L500.2500 ####[facility] [address] [place], [address] Sodium [Moles/Vol] 138 mmol/L Normal 136-145 [facility] Comment on above: Performed By: #### L 100.0100, L500.2500 ####[facility] [address] [place], [address] Urea nitrogen [Mass/Vol] 15 mg/dL Normal 7-18 [facility] Comment on above: Performed By: #### L 100.0100, L500.2500 ####[facility] [address] [place], [address] BUN/CRE 13.3 RATIO Normal 10-20 [facility] Comment on above: Performed By: #### L 500.2500, L100.0100 ####[facility] [address] [place], [address] CA,Total 9.3 mg/dL Normal 8.5-10.1 [facility] Comment on above: Performed By: #### L 500.2500, L100.0100 ####[facility] [address] [place], [address] Chloride [Moles/Vol] 103 mmol/L Normal 98-107 [facility] Comment on above: Performed By: #### L 500.2500, L100.0100 ####[facility] [address] [place], [address] CO2 [Moles/Vol] 28.0 mmol/L Normal 21.0-32.0 [facility] Comment on above: Performed By: #### L 500.2500, L100.0100 ####[facility] [address] [place], [address] Creatinine [Mass/Vol] 0.98 mg/dL Normal 0.55-1.02 [facility] Comment on above: Result Comment: The validity of the calculated GFR GFRAA in patients over 70 years has not been determined. Clinical correlation is essential. Performed By: #### L 500.2500, L100.0100 ####[facility] [address] [place], [address] ECRCL 87.08 ml/min Normal [facility] Comment on above: Performed By: #### L 500.2500, L100.0100 ####[facility] [address] [place], [address] EST GFR - AA 84 mL/min Normal >60 [facility] Comment on above: Result Comment: Afri can Bahraini GFR Calc Performed By: #### L 500.2500, L100.0100 ####[facility] [address] [place], [address] GAP 7 Normal 5-15 [facility] Comment on above: Performed By: #### L 500.2500, L100.0100 ####[facility] [address] [place], [address] GFR/1.73 sq M.predicted among non-blacks MDRD (S/P/Bld) [Vol rate/Area] 69 mL/min/{1.73_m2} Normal >60 [facility] Comment on above: Result Comment: Non- GFR Calc Performed By: #### L 500.2500, L100.0100 ####[facility] [address] [place], [address] Glucose [Mass/Vol] 118 mg/dL High 74-106 [facility] Comment on above: Result Comment: Fast ing Glucose result from 100 to 125 mg/dL suggests IMPAIRED HOMEOSTASIS per A.D.A. criteria. Performed By: #### L 500.2500, L100.0100 ####[facility] [address] [place], [address] Potassium [Moles/Vol] 3.5 mmol/L Normal 3.5-5.1 [facility] Comment on above: Performed By: #### L 500.2500, L100.0100 ####[facility] [address] [place], [address] Sodium [Moles/Vol] 138 mmol/L Normal 136-145 [facility] Comment on above: Performed By: #### L 500.2500, L100.0100 ####[facility] [address] [place], [address] Urea nitrogen [Mass/Vol] 13 mg/dL Normal 7-18 [facility] Comment on above: Performed By: #### L 500.2500, L100.0100 ####[facility] [address] [place], [address] CBC W/Diff, Automatedon 12-2 4-2023 Absolute Lymph 0.48 X10 3/uL Low 0.83-4.51 [facility] Comment on above: Performed By: #### L 100.0100, L500.2500 ####[facility] [address] [place], [address] Absolute Neut 10.6 X10 3/uL High 2.0-7.7 [facility] Comment on above: Performed By: #### L 100.0100, L500.2500 ####[facility] [address] [place], [address] Basophils/100 WBC (Bld) 0.1 % Normal 0-[address] [facility] Comment on above: Performed By: #### L 100.0100, L500.2500 ####[facility] [address] [place], [address] Eosinophils/100 WBC (Bld) 0.0 % Normal 0-5 [facility] Comment on above: Performed By: #### L 100.0100, L500.2500 ####[facility] [address] [place], [address] Erythrocyte distribution width (RBC) [Ratio] 13.1 % Normal 11.6-14.6 [facility] Comment on above: Performed By: #### L 100.0100, L500.2500 ####[facility] [address] [place], [address] Hematocrit (Bld) [Volume fraction] 42.5 % Normal 37-47 [facility] Comment on above: Performed By: #### L 100.0100, L500.2500 ####[facility] [address] [place], [address] Hemoglobin (Bld) [Mass/Vol] 14.3 g/dL Normal 12.0-15.0 [facility] Comment on above: Performed By: #### L 100.0100, L500.2500 ####[facility] [address] [place], [address] IG% 0.400 Normal 0.0-0.9 [facility] Comment on above: Result Comment: IG% - Immature Granulocytes (promyelocytes, myelocytes and metamyelocytes) > 1% indicates that a LEFT SHIFT is Present. Performed By: #### L 100.0100, L500.2500 ####[facility] [address] [place], [address] Lymphocytes/100 WBC (Bld) 4.1 % Low 19-41 [facility] Comment on above: Performed By: #### L 100.0100, L500.2500 ####[facility] [address] [place], [address] MCH (RBC) [Entitic mass] 32.5 pg High 27.0-32.0 [facility] Comment on above: Performed By: #### L 100.0100, L500.2500 ####[facility] [address] [place], [address] MCHC (RBC) [Mass/Vol] 33.6 g/dL Normal 32-36 [facility] Comment on above: Performed By: #### L 100.0100, L500.2500 ####[facility] [address] [place], [address] MCV (RBC) [Entitic vol] 96.6 fL Normal 81-[address] [facility] Comment on above: Performed By: #### L 100.0100, L500.2500 ####[facility] [address] [place], [address] Monocytes/100 WBC (Bld) 5.1 % Normal 0-[address] [facility] Comment on above: Performed By: #### L 100.0100, L500.2500 ####[facility] [address] [place], [address] Neutrophils/100 WBC (Bld) 90.3 % High 47-70 [facility] Comment on above: Performed By: #### L 100.0100, L500.2500 ####[facility] [address] [place], [address] Nucleated RBC (Bld) [#/Vol] 0 10*3/uL Normal 0-5 [facility] Comment on above: Performed By: #### L 100.0100, L500.2500 ####[facility] [address] [place], [address] Platelet mean volume (Bld) [Entitic vol] 9.8 fL Normal 6.2-12.0 [facility] Comment on above: Performed By: #### L 100.0100, L500.2500 ####[facility] [address] [place], [address] Platelets (Bld) [#/Vol] 252 10*3/uL Normal 150-450 [facility] Comment on above: Performed By: #### L 100.0100, L500.2500 ####[facility] [address] [place], [address] RBC (Bld) [#/Vol] 4.40 10*6/uL Normal 4.2-5.4 [facility] Comment on above: Performed By: #### L 100.0100, L500.2500 ####[facility] [address] [place], [address] RDW SD 46.8 fl High 35.1-43.9 [facility] Comment on above: Performed By: #### L 100.0100, L500.2500 ####[facility] [address] [place], [address] WBC (Bld) [#/Vol] 11.8 10*3/uL High 4.4-11.0 [facility] Comment on above: Performed By: #### L 100.0100, L500.2500 ####[facility] [address] [place], [address] Absolute Lymph 1.01 X10 3/uL Normal 0.83-4.51 [facility] Comment on above: Performed By: #### L 500.2500, L100.0100 ####[facility] [address] [place], [address] Absolute Neut 8.7 X10 3/uL High 2.0-7.7 [facility] Comment on above: Performed By: #### L 500.2500, L100.0100 ####[facility] [address] [place], [address] Basophils/100 WBC (Bld) 0.2 % Normal 0-[address] [facility] Comment on above: Performed By: #### L 500.2500, L100.0100 ####[facility] [address] [place], [address] Eosinophils/100 WBC (Bld) 0.0 % Normal 0-5 [facility] Comment on above: Performed By: #### L 500.2500, L100.0100 ####[facility] [address] [place], [address] Erythrocyte distribution width (RBC) [Ratio] 13.0 % Normal 11.6-14.6 [facility] Comment on above: Performed By: #### L 500.2500, L100.0100 ####[facility] [address] [place], [address] Hematocrit (Bld) [Volume fraction] 41.1 % Normal 37-47 [facility] Comment on above: Performed By: #### L 500.2500, L100.0100 ####[facility] [address] [place], [address] Hemoglobin (Bld) [Mass/Vol] 13.9 g/dL Normal 12.0-15.0 [facility] Comment on above: Performed By: #### L 500.2500, L100.0100 ####[facility] [address] [place], [address] IG% 0.500 Normal 0.0-0.9 [facility] Comment on above: Result Comment: IG% - Immature Granulocytes (promyelocytes, myelocytes and metamyelocytes) > 1% indicates that a LEFT SHIFT is Present. Performed By: #### L 500.2500, L100.0100 ####[facility] [address] [place], [address] Lymphocytes/100 WBC (Bld) 9.8 % Low 19-41 [facility] Comment on above: Performed By: #### L 500.2500, L100.0100 ####[facility] [address] [place], [address] MCH (RBC) [Entitic mass] 32.3 pg High 27.0-32.0 [facility] Comment on above: Performed By: #### L 500.2500, L100.0100 ####[facility] [address] [place], [address] MCHC (RBC) [Mass/Vol] 33.8 g/dL Normal 32-36 [facility] Comment on above: Performed By: #### L 500.2500, L100.0100 ####[facility] [address] [place], [address] MCV (RBC) [Entitic vol] 95.6 fL Normal 81-[address] [facility] Comment on above: Performed By: #### L 500.2500, L100.0100 ####[facility] [address] [place], [address] Monocytes/100 WBC (Bld) 5.8 % Normal 0-10 [facility] Comment on above: Performed By: #### L 500.2500, L100.0100 ####[facility] [address] [place], [address] Neutrophils/100 WBC (Bld) 83.7 % High 47-70 [facility] Comment on above: Performed By: #### L 500.2500, L100.0100 ####[facility] [address] [place], [address] Nucleated RBC (Bld) [#/Vol] 0 10*3/uL Normal 0-5 [facility] Comment on above: Performed By: #### L 500.2500, L100.0100 ####[facility] [address] [place], [address] Platelet mean volume (Bld) [Entitic vol] 9.7 fL Normal 6.2-12.0 [facility] Comment on above: Performed By: #### L 500.2500, L100.0100 ####[facility] [address] [place], [address] Platelets (Bld) [#/Vol] 245 10*3/uL Normal 150-450 [facility] Comment on above: Performed By: #### L 500.2500, L100.0100 ####[facility] [address] [place], [address] RBC (Bld) [#/Vol] 4.30 10*6/uL Normal 4.2-5.4 [facility] Comment on above: Performed By: #### L 500.2500, L100.0100 ####[facility] [address] [place], [address] RDW SD 45.5 fl High 35.1-43.9 [facility] Comment on above: Performed By: #### L 500.2500, L100.0100 ####[facility] [address] [place], [address] WBC (Bld) [#/Vol] 10.3 10*3/uL Normal 4.4-11.0 [facility] Comment on above: Performed By: #### L 500.2500, L100.0100 ####[facility] [address] [place], [address] Chest PA and Lateralon 10-16 Chest PA and Lateral [facility] [address] [place] [address] Chest PA and Lateral MR#: [id number] Acct: [id number] Name: CARINE BARBA Rep #: [id number] : 1990 F 34 From: Magdiel field MD PCP: Care Physician,No Primary Status: ADM IN Study: Chest PA and Lateral Date of Exam: 10/16/24 Exam# [id number] Ordering Dr: Fletcher Marie DO [id number] INDICATION: Shortness of breath EXAMINATION/TECHNIQUE : X-RAY [...] Fletcher Marie DO; No Primary Care Physician Mcat Instructor: Signed Normal [facility] Chest PA and Lateral [facility] [address] [place] [address] Chest PA and Lateral MR#: [id number] Acct: [id number] Name: CARINE BARBA Rep #: [id number] : 1990 F 34 From: Jason Dumont MD PCP: Care Physician,No Primary Status: REG ER Study: Chest PA and Lateral Date of Exam: 10/16/24 Exam# [id number] Ordering Dr: Arjun Lagunas DO [id number] EXAM: XR CHEST, 2 VIEWS CLINICAL INDICATION: [...] at 1:57 EST , CC: Dr. Arjun Lagunas DO; No Primary Care Physician Mcat Instructor: Signed Normal [facility] Emergency Department Summary on 10-16-2024 Emergency Department Summary [facility] Medical Records Department [address] [place] [address] Emergency Department Summary 10/16/24 MR#: [id number] Acct: [id number] Name: CARINE BARBA Rep #: [id number] : 1990 34 From: Fletcher Marie DO [...] Psych: Cooperative, appropriate mood and affect [facility] Medical History Asthma Home Medications ???Medication [...] hydrate (From Allergy Swelling Verified 10/16/24 21:13 Qinaf) Social History Smoking Status: Current some day [...] (more content not included)... Normal [facility] Emergency Department Summary [facility] Medical Records Department [address] [place] [address] Emergency Department Summary 10/16/24 MR#: [id number] Acct: [id number] Name: CARINE BARBA Rep #: [id number] : 1990 34 From: Arjun Lagunas DO [...] management. Patient denies any recent travels. [facility] Medical History Asthma Home Medications ???Medication [...] following commands knew that she was at [facility] years 2023 Skin: Warm, dry, intact [...] (more content not included)... Normal [facility] H AND P Exam - [facility] 10-16-2024 H&P Exam - Hospitalist [facility] Medical Records Department [address] [place] [address] H P Exam - Hospitalist 10/16/242216 MR#: [id number] Acct: [id number] Name: CARINE BARBA Rep #: [id number] : 1990 34 From: Nimo Corral DO PCP: Care Physician,No Primary Status:DIS IN Location: [facility] [id number] HPI - General General Date of Admission: 10/17/24 Date of Service: [...] inhaler who now re-presents to [facility] ER complaining of continued shortness of breath, [...] is a same day admission and discharge. [facility] Medical History Asthma Home Medications ???Medication ???Instructions [...] (more content not included)... Normal [facility] Absolute lymphocyte counton 03-23-2022 Lymphocytes Auto (Unsp spec) [#/Vol] 1.63 10*3/uL 0.83-4.51 [facility] Work Phone: [phone] Basophil percentageon 2021 Basophils/100 WBC (Bld) 0.2 % 0-[address] [facility] Work Phone: Chloride [Moles/Vol] 104 mmol/L 98-107 [facility] Work Phone: [phone] Eosinophils/100 WBC (Bld) 0.1 % 0-5 [facility] Work Phone: [phone] Glucose [Mass/Vol] 156 mg/dL 74-106 [facility] Work Phone: [phone] Comment on above: Fasting Glucose resu lt greater than or equal to 126 mg/dL suggests DIABETES MELLITUS per A.D.A. criteria. Neutrophils (Bld) [#/Vol] 6.8 10*3/uL 2.0-7.7 [facility] Work Phone: [phone] Neutrophils/100 WBC (Bld) 76.2 % 47-70 [facility] Work Phone: [phone] Potassium [Moles/Vol] 3.2 mmol/L 3.5-5.1 [facility] Work Phone: [phone] Sodium [Moles/Vol] 136 mmol/L 136-145 [facility] Work Phone: WBC (Bld) [#/Vol] 9.0 10*3/uL 4.4-11.0 [facility] Work Phone: Blood erythrocytes count (nu mber/volume)on 03-23-2022 RBC (Bld) [#/Vol] 4.48 10*6/uL 4.2-5.4 [facility]: Blood hemoglobin measurement (mass/volume)on 03-23-2022 Hemoglobin (Bld) [Mass/Vol] 14.3 g/dL 12.0-15.0 [facility] Work Phone: Blood lymphocytes/100 leukoc yteson 03-23-2022 Lymphocytes/100 WBC (Bld) 18.2 % 19-41 [facility] Work Phone: Blood monocytes/100 leukocyt eson 03-23-2022 Monocytes/100 WBC (Bld) 5.0 % 0-[address] [facility] Work Phone: Blood platelet mean volumeon 03-23-2022 Platelet mean volume (Bld) [Entitic vol] 10.4 fL 6.2-12.0 [facility] Work Phone: Determination of erythrocyte mean corpuscular volume (MCV)on 03-23-2022 MCV (RBC) [Entitic vol] 93.8 fL 81-[address] [facility] Work Phone: Hematocrit Auto (Bld) [Volum e fraction]on 03-23-2022 Hematocrit (Bld) [Volume fraction] 42.0 % 37-47 [facility] Work Phone: Laboratory - Chemistry and C hemistry - challengeon 03-23-2022 CO2 [Moles/Vol] 26.0 mmol/L 21.0-32.0 [facility] Work Phone: Urea nitrogen/Creatinine [Mass ratio] 11.5 mg/mg 10-20 [facility] Work Phone: Laboratory - Hematology and Cell countson 03-23-2022 Erythrocyte distribution width (RBC) [Entitic vol] 43.4 fL 35.1-43.9 [facility] Work Phone: Erythrocyte distribution width (RBC) [Ratio] 12.6 % 11.6-14.6 [facility] Work Phone: Immature granulocytes/100 WBC (Bld) 0.300 % 0.0-0.9 [facility] Work Phone: Comment on above: IG% - Immature Granu locytes (promyelocytes, myelocytes and metamyelocytes) > 1% indicates that a LEFT SHIFT is Present. MCH (RBC) [Entitic mass] 31.9 pg 27.0-32.0 [facility] Work Phone: Nucleated RBC/100 WBC (Bld) [Ratio] 0 % 0-5 [facility] Work Phone: MCHC Auto (RBC) [Mass/Vol]on 03-23-2022 MCHC (RBC) [Mass/Vol] 34.0 g/dL 32-36 [facility] Work Phone: No Panel Informationon 03-23 D-Dimer Quantitative (PE/DVT) < 0.27 FEU/ug/m 0.27-0.49 [facility] Work Phone: Comment on above: NORMAL D-Dimer level (<0.50) indicates no DVT or PE. Estimated Creatinine Clearance Calc 101.62 ml/min [facility] Work Phone: Estimated GFR (MDRD) Amer 111 mL/min >60 [facility] Work Phone: Comment on above: GFR Calc Estimated GFR (MDRD) Non-Af Amer 91 mL/min >60 [facility] Work Phone: Comment on above: Non- GFR Calc Troponin I High Sensitivity < 3 pg/mL 3.0-54.0 [facility] Work Phone: Comment on above: Please Note: New [place] t Units and Gender Specific Reference Ranges. For more information see Policy Stat Procedure [place] High Sensitivity Troponin (TNIH) and attachments. Platelets bldon 03-23-2022 Platelets (Bld) [#/Vol] 256 10*3/uL 150-450 [facility] Work Phone: Serum or plasma calcium emily urement (mass/volume)on 03-23-2022 Calcium [Mass/Vol] 9.1 mg/dL 8.5-10.1 [facility] Work Phone: Serum or plasma creatinine m easurement (mass/volume)on 03-23-2022 Creatinine [Mass/Vol] 0.78 mg/dL 0.55-1.02 [facility] Work Phone: Comment on above: The validity of the calculated GFR & GFRAA in patients over 70 years has not been determined. Clinical correlation is essential. Serum or plasma urea nitroge n measurement (mass/volume)on 03-23-2022 Urea nitrogen [Mass/Vol] 9 mg/dL 7-18 [facility] Work Phone: Thin prep Papanicolaou smear with manual screeningon 03-23-2022 Thin prep Papanicolaou smear with manual screening 6 5-15 [facility] Work Phone: Basic Metabolic Panelon 06-24 Anion gap [Moles/Vol] 9 Normal [facility] Comment on above: Performed By: #### H RADHA BMP3 #### [facility] [address] [place] [address] Calcium [Mass/Vol] 9.0 mg/dL Normal 8.4-10.4 [facility] Comment on above: Performed By: #### H RADHA BMP3 #### [facility] [address] [place] [address] CO2 [Moles/Vol] 25 mmol/L Normal 22-30 [facility] Comment on above: Performed By: #### H RADHA BMP3 #### [facility] [address] [place] [address] Creatinine [Mass/Vol] 0.70 mg/dL Normal 0.52-1.25 [facility] Comment on above: Performed By: #### H RADHA BMP3 #### [facility] [address] [place] [address] GFR/1.73 sq M predicted among blacks MDRD (S/P/Bld) [Vol rate/Area] mL/min/{1.73_m2} Normal >60 [facility] Comment on above: Performed By: #### H RADHA BMP3 #### [facility] [address] [place] [address] GFR/1.73 sq M predicted among non-blacks MDRD (S/P/Bld) [Vol rate/Area] mL/min/{1.73_m2} Normal >60 [facility] Comment on above: Result Comment: KDIG O [...] tubular creatinine secretion. Performed By: #### H RADHA BMP3 #### [facility] [address] [place] [address] Glucose [Mass/Vol] 133 mg/dL High 70-100 [facility] Comment on above: Performed By: #### H RADHA BMP3 #### [facility] [address] [place] [address] Urea nitrogen [Mass/Vol] 11 mg/dL Normal 7-20 [facility] Comment on above: Performed By: #### H OLLIE GARCIA3 #### [facility] [address] [place] [address] Chloride [Moles/Vol] 104 mmol/L Normal 98-107 [facility] Comment on above: Performed By: #### H EMDF, BMP3 #### [facility] [address] [place] [address] Potassium [Moles/Vol] 4.1 mmol/L Normal 3.5-5.1 [facility] Comment on above: Performed By: #### H EMDF, BMP3 #### [facility] [address] [place] [address] Sodium [Moles/Vol] 138 mmol/L Normal 135-145 [facility] Comment on above: Performed By: #### H CHRISTYF, BMP3 #### [facility] [address] [place] [address] Anion gap [Moles/Vol] 9 mmol/L [place] Calcium [Mass/Vol] 9.0 mg/dL 8.4 - 10. 4 mg/dL [place] Chloride [Moles/Vol] 104 mmol/L 98 - 10 7 mmol/L [place] CO2 [Moles/Vol] 25 mmol/L 22 - 30 mmol/L [place] Creatinine [Mass/Vol] 0.7 mg/dL 0.52 - 1.25 mg/dL [place] EGFR IF NonAfrican [place]raini >90.0 >60 mL/min [place] Comment on above: KDIGO guidelines pro [...] MDRD (S/P/Bld) [Vol rate/Area] mL/min/{1.73_m2} >60 mL/min [place] Glucose [Mass/Vol] 133 mg/dL High 70 - 100 mg/dL [place] Interpretation and review of laboratory results Abnormal [place] Potassium [Moles/Vol] 4.1 mmol/L 3.5 - 5.1 mmol/L [place] Sodium [Moles/Vol] 138 mmol/L 135 - 145 mmol/L [place] Urea nitrogen [Mass/Vol] 11 mg/dL 7 - 20 mg/d L [place] Test Performed by [facility], [address] , [address] D-Dimer, Innovanceon 020 D-Dimer, Innovance 0.32 mg/L Normal <0.19-0.50 [facility] Comment on above: Result Comment: Inno singleton D-Dimer values of <0.50 mg/L FEU can be used in combination with a pre-test probability model (e.g. Well's) to exclude pulmonary embolism (PE) disease, as well as an aid in the diagnosis of deep vein thrombosis (DVT). Performed By: #### H [facility] #### [facility] [address] [place] [address] D-Dimer, Quantitativeon 06-24 D-Dimer, Quant 0.32 mg/L <0.19 - 0.50 [place], [place] Comment on above: [employer] D-Dimer va lues of <0.50 mg/L FEU can be used in combination with a pre-test probability model (e.g. Well's) to exclude pulmonary embolism (PE) disease, as well as an aid in the diagnosis of deep vein thrombosis (DVT). Test Performed by [facility], [address] , [address] [facility] [place], [place] Hemogram (CBC) w/Auto Diffon 07-05-2020 Absolute Baso # 0.0 10*3/uL 0 - 0.2 10*3/uL [place] Absolute Neut # 5.2 10*3/uL 1.8 - 7 10*3/uL [place] Basophils/100 WBC (Bld) 0.5 % 0 - 2 % [place] Eosinophils (Bld) [#/Vol] 0.3 10*3/uL 0 - 0.5 10*3/uL [place] Eosinophils/100 WBC (Bld) 4.6 % 1 - 6 % [place] Erythrocyte distribution width (RBC) [Ratio] 13.7 % 11.5 - 14.5 % [place] Granulocytes/100 WBC (Bld) 70.3 % 40 - 80 % [place] Hematocrit (Bld) [Volume fraction] 40.1 % 35 - 47 % [place] Hemoglobin (Bld) [Mass/Vol] 13.8 g/dL 11.7 - 16 g/dL [place] Interpretation and review of laboratory results Abnormal [place] Lymphocytes (Bld) [#/Vol] 1.4 10*3/uL 1 - 4.3 10*3/uL [place] Lymphocytes/100 WBC (Bld) 18.6 % Low 20 - 40 % [place] MCH (RBC) [Entitic mass] 32.7 pg 26 - 34 pg [place] MCHC (RBC) [Mass/Vol] 34.4 % 32 - 36 % [place] MCV (RBC) [Entitic vol] 95.1 fL 79 - 98 fL [place] Monocytes (Bld) [#/Vol] 0.4 10*3/uL 0 - 0.8 10*3/uL [place] Monocytes/100 WBC (Bld) 6.0 % 2 - 10 % [place] Platelet mean volume (Bld) [Entitic vol] 8.4 fL 7.4 - 10.4 fL [place] Platelets (Bld) [#/Vol] 201 10*3/uL 140 - 440 10*3/uL [place] RBC (Bld) [#/Vol] 4.21 10*6/uL 3.8 - 5.2 10*6/uL [place] WBC (Bld) [#/Vol] 7.4 10*3/uL 3.6 - 10.7 10*3/uL [place] Test Performed by [facility], [address] , [place], [place] [address] [place] Hemogram w/ Autodiffon 07-05 Abs Baso Cnt 0.0 10*3/uL Normal 0.0-0.2 [facility] Comment on above: Performed By: #### H EMDF, BMP3 #### [facility] [address] [place] [address] Abs Neutrophile Cnt 5.2 10*3/uL Normal 1.8-7.0 [facility] Comment on above: Performed By: #### H EMDF, BMP3 #### [facility] [address] [place] [address] Basophils/100 WBC (Bld) 0.5 % Normal 0.0-2.0 [facility] Comment on above: Performed By: #### H EMDF, BMP3 #### [facility] [address] [place] [address] Eosinophils (Bld) [#/Vol] 0.3 10*3/uL Normal 0.0-0.5 [facility] Comment on above: Performed By: #### H EMDF, BMP3 #### [facility] [address] [place] [address] Eosinophils/100 WBC (Bld) 4.6 % Normal 1.0-6.0 [facility] Comment on above: Performed By: #### H EMDF, BMP3 #### [facility] [address] [place] [address] Erythrocyte distribution width (RBC) [Ratio] 13.7 % Normal 11.5-14.5 [facility] Comment on above: Performed By: #### H EMDF, BMP3 #### [facility] [address] [place] [address] Granulocytes/100 WBC (Bld) 70.3 % Normal 40.0-80.0 [facility] Comment on above: Performed By: #### H EMDF, BMP3 #### [facility] [address] [place] [address] Hematocrit (Bld) [Volume fraction] 40.1 % Normal 35.0-47.0 [facility] Comment on above: Performed By: #### H EMDF BMP3 #### [facility] [address] [place] [address] Hemoglobin (Bld) [Mass/Vol] 13.8 g/dL Normal 11.7-16.0 [facility] Comment on above: Performed By: #### H RADHA BMP3 #### [facility] [address] [place] [address] Lymphocytes (Bld) [#/Vol] 1.4 10*3/uL Normal 1.0-4.3 [facility] Comment on above: Performed By: #### H RADHA BMP3 #### [facility] [address] [place] [address] Lymphocytes/100 WBC (Bld) 18.6 % Low 20.0-40.0 [facility] Comment on above: Performed By: #### H CHRISTYF, BMP3 #### [facility] [address] [place] [address] MCH (RBC) [Entitic mass] 32.7 pg Normal 26.0-34.0 [facility] Comment on above: Performed By: #### H EMDF, BMP3 #### [facility] [address] [place] [address] MCHC (RBC) [Mass/Vol] 34.4 % Normal 32.0-36.0 [facility] Comment on above: Performed By: #### H EMDF, BMP3 #### [facility] [address] [place] [address] MCV (RBC) [Entitic vol] 95.1 fL Normal 79.0-98.0 [facility] Comment on above: Performed By: #### H RADHA BMP3 #### [facility] [address] [place] [address] Monocytes (Bld) [#/Vol] 0.4 10*3/uL Normal 0.0-0.8 [facility] Comment on above: Performed By: #### Aidan GARCIA BMP3 #### [facility] [address] [place] [address] Monocytes/100 WBC (Bld) 6.0 % Normal 2.0-10.0 [facility] Comment on above: Performed By: #### Aidan GARCIA BMP3 #### [facility] [address] [place] [address] Platelet mean volume (Bld) [Entitic vol] 8.4 fL Normal 7.4-10.4 [facility] Comment on above: Performed By: #### Aidan GARCIA BMP3 #### [facility] [address] [place] [address] Platelets (Bld) [#/Vol] 201 10*3/uL Normal 140-440 [facility] Comment on above: Performed By: #### Aidan GARCIA BMP3 #### [facility] [address] [place] [address] RBC (Bld) [#/Vol] 4.21 10*6/uL Normal 3.80-5.20 [facility] Comment on above: Performed By: #### Aidan GARCIA BMP3 #### [facility] [address] [place] [address] WBC (Bld) [#/Vol] 7.4 10*3/uL Normal 3.6-10.7 [facility] Comment on above: Performed By: #### Aidan GARCIA BMP3 #### [facility] [address] [place] [address] Troponin Ion 07-05-2020 Troponin I.cardiac [Mass/Vol] ng/mL Normal 0.000-0.034 [facility] Comment on above: Result Comment: . Performed By: #### H EMDF, BMP3 #### [facility] [address] [place] [address] Troponin x1on 07-05-2020 Troponin I.cardiac [Mass/Vol] ng/mL 0 - 0.034 ng/mL [place], [place] Comment on above: . Test Performed by [facility], [address] , [place], [place] [id number] [place] [address] Basic Metabolic Panelon 05-24 Anion gap [Moles/Vol] 10 Normal [facility] Comment on above: Performed By: #### H EMDF, BMP3, DDI2 #### [facility] [address] [place] [address] Calcium [Mass/Vol] 9.2 mg/dL Normal 8.4-10.4 [facility] Comment on above: Performed By: #### H EMDF, BMP3, DDI2 #### [facility] [address] [place] [address] CO2 [Moles/Vol] 25 mmol/L Normal 22-30 [facility] Comment on above: Performed By: #### H EMDF, BMP3, DDI2 #### [facility] [address] [place] [address] Creatinine [Mass/Vol] 0.69 mg/dL Normal 0.52-1.25 [facility] Comment on above: Performed By: #### H EMDF, BMP3, DDI2 #### [facility] [address] [place] [address] GFR/1.73 sq M predicted among blacks MDRD (S/P/Bld) [Vol rate/Area] mL/min/{1.73_m2} Normal >60 [facility] Comment on above: Performed By: #### H EMDF, BMP3, DDI2 #### [facility] [address] [place] [address] GFR/1.73 sq M predicted among non-blacks MDRD (S/P/Bld) [Vol rate/Area] mL/min/{1.73_m2} Normal >60 [facility] Comment on above: Result Comment: KDIG O [...] tubular creatinine secretion. Performed By: #### H EMDF, BMP3, DDI2 #### [facility] [address] [place] [address] Glucose [Mass/Vol] 99 mg/dL Normal 70-100 [facility] Comment on above: Performed By: #### H EMDF, BMP3, DDI2 #### [facility] [address] [place] [address] Urea nitrogen [Mass/Vol] 10 mg/dL Normal 7-20 [facility] Comment on above: Performed By: #### H EMDF, BMP3, DDI2 #### [facility] [address] [place] [address] Chloride [Moles/Vol] 104 mmol/L Normal 98-107 [facility] Comment on above: Performed By: #### H EMDF, BMP3, DDI2 #### [facility] [address] [place] [address] Potassium [Moles/Vol] 3.9 mmol/L Normal 3.5-5.1 [facility] Comment on above: Performed By: #### H EMDF, BMP3, DDI2 #### [facility] [address] [place] [address] Sodium [Moles/Vol] 139 mmol/L Normal 135-145 [facility] Comment on above: Performed By: #### H EMDF, BMP3, DDI2 #### [facility] [address] [place] [address] Anion gap [Moles/Vol] 10 mmol/L [place] Calcium [Mass/Vol] 9.2 mg/dL 8.4 - 10. 4 mg/dL [place] Chloride [Moles/Vol] 104 mmol/L 98 - 10 7 mmol/L [place] CO2 [Moles/Vol] 25 mmol/L 22 - 30 mmol/L [place] Creatinine [Mass/Vol] 0.69 mg/dL 0.52 - 1.25 mg/dL [place] EGFR IF NonAfrican [place]raini >90.0 >60 mL/min [place] Comment on above: KDIGO guidelines pro [...] MDRD (S/P/Bld) [Vol rate/Area] mL/min/{1.73_m2} >60 mL/min [place] Glucose [Mass/Vol] 99 mg/dL 70 - 100 mg/dL [place] Potassium [Moles/Vol] 3.9 mmol/L 3.5 - 5.1 mmol/L [place] Sodium [Moles/Vol] 139 mmol/L 135 - 145 mmol/L [place] Urea nitrogen [Mass/Vol] 10 mg/dL 7 - 20 mg/d L [place] Test Performed by [facility], [address] , [place], [place] [address] [facility] [place] CR Chest PA/LATon 06-08-2020 CR Chest PA/LAT Patient Name: CARINE BARBA Diagnostic Radiology Exam Date/Time 06/08/2020 03:45:52 EDT Exam CR Chest PA/LAT Ordering Physician MD JIM, ANCA Accession Number [id number] CPT4 Codes 24941 () Reason For Exam sob Report CHEST [...] Transcribed Date and Time: 06/08/2020 4:14 Normal [facility] D-Dimer, Innovanceon 020 D-Dimer, Innovance 0.32 mg/L Normal <0.19-0.50 [facility] Comment on above: Result Comment: Inno singleton D-Dimer values of <0.50 mg/L FEU can be used in combination with a pre-test probability model (e.g. Well's) to exclude pulmonary embolism (PE) disease, as well as an aid in the diagnosis of deep vein thrombosis (DVT). Performed By: #### H EMDF, BMP3, DDI2 #### [facility] [address] [place] [address] D-Dimer, Quantitativeon 05-24 D-Dimer, Quant 0.32 mg/L <0.19 - 0.50 [facility] [place] Comment on above: [employer] D-Dimer va lues of <0.50 mg/L FEU can be used in combination with a pre-test probability model (e.g. Well's) to exclude pulmonary embolism (PE) disease, as well as an aid in the diagnosis of deep vein thrombosis (DVT). Test Performed by [facility], [address] , [place], [place] [id number] [place] [address] Hemogram (CBC) w/Auto Diffon 06-08-2020 Absolute Baso # 0.0 10*3/uL 0 - 0.2 10*3/uL [place] Absolute Neut # 4.4 10*3/uL 1.8 - 7 10*3/uL [place] Basophils/100 WBC (Bld) 0.5 % 0 - 2 % [place] Eosinophils (Bld) [#/Vol] 0.6 10*3/uL High 0 - 0.5 10*3/uL [place] Eosinophils/100 WBC (Bld) 7.6 % High 1 - 6 % [place] Erythrocyte distribution width (RBC) [Ratio] 14.0 % 11.5 - 14.5 % [place] Granulocytes/100 WBC (Bld) 57.2 % 40 - 80 % [place] Hematocrit (Bld) [Volume fraction] 40.4 % 35 - 47 % [place] Hemoglobin (Bld) [Mass/Vol] 13.8 g/dL 11.7 - 16 g/dL [place] Interpretation and review of laboratory results Abnormal [place] Lymphocytes (Bld) [#/Vol] 2.2 10*3/uL 1 - 4.3 10*3/uL [place] Lymphocytes/100 WBC (Bld) 28.3 % 20 - 40 % [place] MCH (RBC) [Entitic mass] 32.7 pg 26 - 34 pg [place] MCHC (RBC) [Mass/Vol] 34.2 % 32 - 36 % [place] MCV (RBC) [Entitic vol] 95.6 fL 79 - 98 fL [place] Monocytes (Bld) [#/Vol] 0.5 10*3/uL 0 - 0.8 10*3/uL [place] Monocytes/100 WBC (Bld) 6.4 % 2 - 10 % [place] Platelet mean volume (Bld) [Entitic vol] 8.2 fL 7.4 - 10.4 fL [place] Platelets (Bld) [#/Vol] 249 10*3/uL 140 - 440 10*3/uL [place] RBC (Bld) [#/Vol] 4.22 10*6/uL 3.8 - 5.2 10*6/uL [place] WBC (Bld) [#/Vol] 7.7 10*3/uL 3.6 - 10.7 10*3/uL [place] Test Performed by [facility], [address] , [place], [place] [address] [place] [address] Hemogram w/ Autodiffon 06-08 Abs Baso Cnt 0.0 10*3/uL Normal 0.0-0.2 [facility] Comment on above: Performed By: #### H EMDF, BMP3, DDI2 #### [facility] [address] [place] [address] Abs Neutrophile Cnt 4.4 10*3/uL Normal 1.8-7.0 [facility] Comment on above: Performed By: #### H EMDF, BMP3, DDI2 #### [facility] [address] [place] [address] Basophils/100 WBC (Bld) 0.5 % Normal 0.0-2.0 [facility] Comment on above: Performed By: #### H EMDF, BMP3, DDI2 #### [facility] [address] [place] [address] Eosinophils (Bld) [#/Vol] 0.6 10*3/uL High 0.0-0.5 [facility] Comment on above: Performed By: #### H EMDF, BMP3, DDI2 #### [facility] [address] [place] [address] Eosinophils/100 WBC (Bld) 7.6 % High 1.0-6.0 [facility] Comment on above: Performed By: #### H RADHA BMP3, DDI2 #### [facility] [address] [place] [address] Erythrocyte distribution width (RBC) [Ratio] 14.0 % Normal 11.5-14.5 [facility] Comment on above: Performed By: #### H EMDMeagan, BMP3, DDI2 #### [facility] [address] [place] [address] Granulocytes/100 WBC (Bld) 57.2 % Normal 40.0-80.0 [facility] Comment on above: Performed By: #### H EMDMeagan, BMP3, DDI2 #### [facility] [address] [place] [address] Hematocrit (Bld) [Volume fraction] 40.4 % Normal 35.0-47.0 [facility] Comment on above: Performed By: #### H EMDMeagan, BMP3, DDI2 #### [facility] [address] [place] [address] Hemoglobin (Bld) [Mass/Vol] 13.8 g/dL Normal 11.7-16.0 [facility] Comment on above: Performed By: #### H EMDF, BMP3, DDI2 #### [facility] [address] [place] [address] Lymphocytes (Bld) [#/Vol] 2.2 10*3/uL Normal 1.0-4.3 [facility] Comment on above: Performed By: #### H EMDF, BMP3, DDI2 #### [facility] [address] [place] [address] Lymphocytes/100 WBC (Bld) 28.3 % Normal 20.0-40.0 [facility] Comment on above: Performed By: #### H EMDF, BMP3, DDI2 #### [facility] [address] [place] [address] MCH (RBC) [Entitic mass] 32.7 pg Normal 26.0-34.0 [facility] Comment on above: Performed By: #### H EMDF, BMP3, DDI2 #### [facility] [address] [place] [address] MCHC (RBC) [Mass/Vol] 34.2 % Normal 32.0-36.0 [facility] Comment on above: Performed By: #### H EMDF, BMP3, DDI2 #### [facility] [address] [place] [address] MCV (RBC) [Entitic vol] 95.6 fL Normal 79.0-98.0 [facility] Comment on above: Performed By: #### H EMDF, BMP3, DDI2 #### [facility] [address] [place] [address] Monocytes (Bld) [#/Vol] 0.5 10*3/uL Normal 0.0-0.8 [facility] Comment on above: Performed By: #### H EMDF, BMP3, DDI2 #### [facility] [address] [place] [address] Monocytes/100 WBC (Bld) 6.4 % Normal 2.0-10.0 [facility] Comment on above: Performed By: #### H EMDF, BMP3, DDI2 #### [facility] [address] [place] [address] Platelet mean volume (Bld) [Entitic vol] 8.2 fL Normal 7.4-10.4 [facility] Comment on above: Performed By: #### H EMDF, BMP3, DDI2 #### [facility] [address] [place] [address] Platelets (Bld) [#/Vol] 249 10*3/uL Normal 140-440 [facility] Comment on above: Performed By: #### H EMDF, BMP3, DDI2 #### [facility] [address] [place] [address] RBC (Bld) [#/Vol] 4.22 10*6/uL Normal 3.80-5.20 [facility] Comment on above: Performed By: #### H EMDF, BMP3, DDI2 #### [facility] [address] [place] [address] WBC (Bld) [#/Vol] 7.7 10*3/uL Normal 3.6-10.7 [facility] Comment on above: Performed By: #### H EMDF, BMP3, DDI2 #### [facility] [address] [place] [address] Troponin Ion 06-08-2020 Troponin I.cardiac [Mass/Vol] ng/mL Normal 0.000-0.034 [facility] Comment on above: Result Comment: . Performed By: #### H EMDF, BMP3 #### [facility] [address] [place] [address] Troponin x1on 06-08-2020 Troponin I.cardiac [Mass/Vol] ng/mL 0 - 0.034 ng/mL [place] Comment on above: . Test Performed by [facility], [address] , [place], [place] [address] [place] XR CHEST (2 VW)on 06-08-2020 Patient Name: CARINE BARBA ---Diagnostic Radiology--- Exam Date/Time 06/08/2020 03:45:52 EDT Exam CR Chest PA/LAT Ordering Physician MD JIM, ANCA Accession Number [id number] CPT4 Codes 17725 () Reason For Exam sob Report CHEST [...] on --- Final --- Dictating Physician: NIMO AGRCIA DO, I Signed Date and Time: 06/08/2020 4:13 am Signed by: NIMO GARCIA DO, I Transcribed Date and Time: 06/08/2020 4:14 [place], [place], [facility] Incoming Radiology Results From [facility] - 06/08/2020 4:15 AM EDT Patient Name: CARINE BARBA ---Diagnostic Radiology--- Exam Date/Time 06/08/2020 03:45:52 EDT Exam CR Chest PA/LAT Ordering Physician MD JIM, [facility] Accession Number [id number] CPT4 Codes 91662 () Reason For Exam sob Report CHEST [...] I Transcribed Date and Time: 06/08/2020 4:14 [place], [place] Basic Metabolic Panelon 07-0 Anion gap [Moles/Vol] 13 Normal [facility] Comment on above: Performed By: #### H RADHA BMP3 #### [facility] [address] [place] [address] Calcium [Mass/Vol] 8.8 mg/dL Normal 8.4-10.4 [facility] Comment on above: Performed By: #### H RADHA BMP3 #### [facility] [address] [place] [address] CO2 [Moles/Vol] 22 mmol/L Normal 22-30 [facility] Comment on above: Performed By: #### H RADHA BMP3 #### [facility] [address] [place] [address] Glucose [Mass/Vol] 121 mg/dL High 70-100 [facility] Comment on above: Performed By: #### H RADHA BMP3 #### [facility] [address] [place] [address] Urea nitrogen [Mass/Vol] 18 mg/dL Normal 7-20 [facility] Comment on above: Performed By: #### H OLLIE GARCIA3 #### [facility] [address] [place] [address] Creatinine [Mass/Vol] 0.63 mg/dL Normal 0.52-1.25 [facility] Comment on above: Performed By: #### H RADHA BMP3 #### [facility] [address] [place] [address] GFR/1.73 sq M predicted among blacks MDRD (S/P/Bld) [Vol rate/Area] mL/min/{1.73_m2} Normal >60 [facility] Comment on above: Performed By: #### H OLLIE GARCIA3 #### [facility] [address] [place] [address] GFR/1.73 sq M predicted among non-blacks MDRD (S/P/Bld) [Vol rate/Area] mL/min/{1.73_m2} Normal >60 [facility] Comment on above: Result Comment: KDIG O [...] tubular creatinine secretion. Performed By: #### H RADHA BMP3 #### [facility] [address] [place] [address] Chloride [Moles/Vol] 106 mmol/L Normal 98-107 [facility] Comment on above: Performed By: #### H RADHA BMP3 #### [facility] [address] [place] [address] Potassium [Moles/Vol] 3.4 mmol/L Low 3.5-5.1 [facility] Comment on above: Performed By: #### H RADHA BMP3 #### [facility] [address] [place] [address] Sodium [Moles/Vol] 140 mmol/L Normal 135-145 [facility] [place] Comment on above: Performed By: #### H RADHA BMP3 #### [facility] [address] [place] [address] Anion gap [Moles/Vol] 13 mmol/L [place], [place] Calcium [Mass/Vol] 8.8 mg/dL 8.4 - 10. 4 mg/dL [place], [place] Chloride [Moles/Vol] 106 mmol/L 98 - 10 7 mmol/L [place] CO2 [Moles/Vol] 22 mmol/L 22 - 30 mmol/L [place] Creatinine [Mass/Vol] 0.63 mg/dL 0.52 - 1.25 mg/dL [place] EGFR IF NonAfrican Bahraini >90.0 >60 mL/min [place] Comment on above: KDIGO guidelines pro [...] MDRD (S/P/Bld) [Vol rate/Area] mL/min/{1.73_m2} >60 mL/min [place] Glucose [Mass/Vol] 121 mg/dL High 70 - 100 mg/dL [place] Interpretation and review of laboratory results Abnormal [place] Potassium [Moles/Vol] 3.4 mmol/L Low 3.5 - 5.1 mmol/L [place] Sodium [Moles/Vol] 140 mmol/L 135 - 145 mmol/L [place] Urea nitrogen [Mass/Vol] 18 mg/dL 7 - 20 mg/d L [place] Test Performed by [facility], [address] [place] [address] , [address] CR Chest Portableon 04-29-20 20 CR Chest Portable Patient Name: CARINE BARBA Diagnostic Radiology Exam Date/Time 04/29/2020 10:39:47 EDT Exam CR Chest Portable Ordering Physician MD JUSTO, NIMO Munson Accession Number [id number] CPT4 Codes 57700 () Reason For Exam respiratory distress Report [...] Transcribed Date and Time: 04/29/2020 11:08 Normal [facility] Hemogram (CBC) w/Auto Diffon 04-29-2020 Absolute Baso # 0.1 10*3/uL 0 - 0.2 10*3/uL [place] Absolute Neut # 6.6 10*3/uL 1.8 - 7 10*3/uL [place] Basophils/100 WBC (Bld) 0.6 % 0 - 2 % [place], [place] Eosinophils (Bld) [#/Vol] 1.0 10*3/uL High 0 - 0.5 10*3/uL [place] Eosinophils/100 WBC (Bld) 9.9 % High 1 - 6 % [place] Erythrocyte distribution width (RBC) [Ratio] 13.7 % 11.5 - 14.5 % [place] Granulocytes/100 WBC (Bld) 66.0 % 40 - 80 % [place] Hematocrit (Bld) [Volume fraction] 40.8 % 35 - 47 % [place] Hemoglobin (Bld) [Mass/Vol] 14.2 g/dL 11.7 - 16 g/dL [place] Interpretation and review of laboratory results Abnormal [place] Lymphocytes (Bld) [#/Vol] 1.8 10*3/uL 1 - 4.3 10*3/uL [place] Lymphocytes/100 WBC (Bld) 18.1 % Low 20 - 40 % [place] MCH (RBC) [Entitic mass] 33.0 pg 26 - 34 pg [place] MCHC (RBC) [Mass/Vol] 34.7 % 32 - 36 % [place] MCV (RBC) [Entitic vol] 95.0 fL 79 - 98 fL [place], [place] Monocytes (Bld) [#/Vol] 0.5 10*3/uL 0 - 0.8 10*3/uL [place] Monocytes/100 WBC (Bld) 5.4 % 2 - 10 % [place] Platelet mean volume (Bld) [Entitic vol] 8.4 fL 7.4 - 10.4 fL [place] Platelets (Bld) [#/Vol] 237 10*3/uL 140 - 440 10*3/uL [place] RBC (Bld) [#/Vol] 4.30 10*6/uL 3.8 - 5.2 10*6/uL [place] WBC (Bld) [#/Vol] 10.0 10*3/uL 3.6 - 10.7 10*3/uL [facility], [place] Test Performed by [facility], [address] , [place], [place] [id number] [place] [address], [place] Hemogram w/ Autodiffon 04-29 Abs Baso Cnt 0.1 10*3/uL Normal 0.0-0.2 [facility] Comment on above: Performed By: #### H RADHA BMP3 #### [facility] [address] [place] [address] Abs Neutrophile Cnt 6.6 10*3/uL Normal 1.8-7.0 [facility] Comment on above: Performed By: #### H RADHA BMP3 #### [facility] [address] [place] [address] Basophils/100 WBC (Bld) 0.6 % Normal 0.0-2.0 [facility] Comment on above: Performed By: #### H RADHA BMP3 #### [facility] [address] [place] [address] Eosinophils (Bld) [#/Vol] 1.0 10*3/uL High 0.0-0.5 [facility] Comment on above: Performed By: #### H RADHA BMP3 #### [facility] [address] [place] [address] Eosinophils/100 WBC (Bld) 9.9 % High 1.0-6.0 [facility] Comment on above: Performed By: #### H RADHA BMP3 #### [facility] [address] [place] [address] Erythrocyte distribution width (RBC) [Ratio] 13.7 % Normal 11.5-14.5 [facility] Comment on above: Performed By: #### H RADHA BMP3 #### [facility] [address] [place] [address] Granulocytes/100 WBC (Bld) 66.0 % Normal 40.0-80.0 [facility] Comment on above: Performed By: #### H RADHA BMP3 #### [facility] [address] [address] Hematocrit (Bld) [Volume fraction] 40.8 % Normal 35.0-47.0 [facility] Comment on above: Performed By: #### H RADHA BMP3 #### [facility] [address] [place] [address] Hemoglobin (Bld) [Mass/Vol] 14.2 g/dL Normal 11.7-16.0 [facility] Comment on above: Performed By: #### H RADHA BMP3 #### [facility] [address] [place] [address] Lymphocytes (Bld) [#/Vol] 1.8 10*3/uL Normal 1.0-4.3 [facility] Comment on above: Performed By: #### H RADHA BMP3 #### [facility] [address] [place] [address] Lymphocytes/100 WBC (Bld) 18.1 % Low 20.0-40.0 [facility] Comment on above: Performed By: #### H RADHA BMP3 #### [facility] [address] [place] [address] MCH (RBC) [Entitic mass] 33.0 pg Normal 26.0-34.0 [facility] Comment on above: Performed By: #### H RADHA BMP3 #### [facility] [address] [place] [address] MCHC (RBC) [Mass/Vol] 34.7 % Normal 32.0-36.0 [facility] Comment on above: Performed By: #### H RADHA BMP3 #### [facility] [address] [place] [address] MCV (RBC) [Entitic vol] 95.0 fL Normal 79.0-98.0 [facility] Comment on above: Performed By: #### H RADHA, BMP3 #### [facility] [address] [place] [address] Monocytes (Bld) [#/Vol] 0.5 10*3/uL Normal 0.0-0.8 [facility] Comment on above: Performed By: #### H EMDF, BMP3 #### [facility] [address] [place] [address] Monocytes/100 WBC (Bld) 5.4 % Normal 2.0-10.0 [facility] Comment on above: Performed By: #### H EMDF, BMP3 #### [facility] [address] [place] [address] Platelet mean volume (Bld) [Entitic vol] 8.4 fL Normal 7.4-10.4 [facility] Comment on above: Performed By: #### H EMDF, BMP3 #### [facility] [address] [place] [address] Platelets (Bld) [#/Vol] 237 10*3/uL Normal 140-440 [facility] Comment on above: Performed By: #### H EMDF, BMP3 #### [facility] [address] [place] [address] RBC (Bld) [#/Vol] 4.30 10*6/uL Normal 3.80-5.20 [facility] Comment on above: Performed By: #### H EMDF, BMP3 #### [facility] [address] [place] [address] WBC (Bld) [#/Vol] 10.0 10*3/uL Normal 3.6-10.7 [facility] Comment on above: Performed By: #### H EMDF, BMP3 #### [facility] [address] [place] [address] XR CHEST PORTABLEon 04-29-20 [place], [facility] Incoming Radiology Results From [facility] - 04/29/2020 11:08 AM EDT Patient Name: CARINE BARBA ---Diagnostic Radiology--- Exam Date/Time 04/29/2020 10:39:47 EDT Exam CR Chest Portable Ordering Physician MD JUSTO, NIMO Munson Accession Number [id number] CPT4 Codes 00946 () Reason For Exam respiratory distress Report [...] NICHOLAS Transcribed Date and Time: 04/29/2020 11:08 [place] Patient Name: CARINE BARBA ---Diagnostic Radiology--- Exam Date/Time 04/29/2020 10:39:47 EDT Exam CR Chest Portable Ordering Physician MD JUSTO, NIMO Munson Accession Number [id number] CPT4 Codes 92752 () Reason For Exam respiratory distress Report [...] NICHOLAS Transcribed Date and Time: 04/29/2020 11:08 [place] Basic Metabolic Panelon 01- Anion gap [Moles/Vol] 10 Normal [facility] Comment on above: Performed By: #### H RADHA BMP3 #### [facility] [address] [place] [address] Calcium [Mass/Vol] 8.8 mg/dL Normal 8.4-10.4 [facility] Comment on above: Performed By: #### H RADHA BMP3 #### [facility] [address] [place] [address] CO2 [Moles/Vol] 26 mmol/L Normal 22-30 [facility] Comment on above: Performed By: #### H EMDF, BMP3 #### [facility] [address] [place] [address] Glucose [Mass/Vol] 112 mg/dL High 70-100 [facility] Comment on above: Performed By: #### H RADHA BMP3 #### [facility] [address] [place] [address] Urea nitrogen [Mass/Vol] 16 mg/dL Normal 7-20 [facility] Comment on above: Performed By: #### H RADHA BMP3 #### [facility] [address] [place] [address] Creatinine [Mass/Vol] 0.72 mg/dL Normal 0.52-1.25 [facility] Comment on above: Performed By: #### H RADHA BMP3 #### [facility] [address] [place] [address] GFR/1.73 sq M predicted among blacks MDRD (S/P/Bld) [Vol rate/Area] mL/min/{1.73_m2} Normal >60 [facility] Comment on above: Performed By: #### H RADHA BMP3 #### [facility] [address] [place] [address] GFR/1.73 sq M predicted among non-blacks MDRD (S/P/Bld) [Vol rate/Area] mL/min/{1.73_m2} Normal >60 [facility] Comment on above: Result Comment: Sour ce- MDRD equation with creatinine calibration to IDMS(NKDEP) eGFR not recommended for drug dose adjustment Performed By: #### H RADHA BMP3 #### [facility] [address] [place] [address] Chloride [Moles/Vol] 103 mmol/L Normal 98-107 [facility] Comment on above: Performed By: #### H RADHA BMP3 #### [facility] [address] [place] [address] Potassium [Moles/Vol] 3.6 mmol/L Normal 3.5-5.1 [facility] Comment on above: Performed By: #### H RADHA BMP3 #### [facility] [address] [place] [address] Sodium [Moles/Vol] 139 mmol/L Normal 135-145 [facility] Comment on above: Performed By: #### H OLLIE GARCIA3 #### [facility] [address] [facility] [place] [address] Basic Metabolic PanelOrdered By: David Granger on 11-11-2019 Anion gap [Moles/Vol] 10 mmol/L [facility] Work Phone: Calcium [Mass/Vol] 8.8 mg/dL 8.4 - 10. 4 mg/dL [facility] Work Phone: Chloride [Moles/Vol] 103 mmol/L 98 - 10 7 mmol/L [facility] Work Phone: CO2 [Moles/Vol] 26 mmol/L 22 - 30 mmol/L [facility] Work Phone: Creatinine [Mass/Vol] 0.72 mg/dL 0.52 - 1.25 mg/dL [facility] Work Phone: EGFR IF NonAfrican Bahraini >60.0 >60 mL/min [facility] Work Phone: Comment on above: Source- MDRD equatio n with creatinine calibration to IDMS(NKDEP) eGFR not recommended for drug dose adjustment GFR/1.73 sq M.predicted among blacks MDRD (S/P/Bld) [Vol rate/Area] mL/min/{1.73_m2} >60 mL/min [facility] Work Phone: Glucose [Mass/Vol] 112 mg/dL High 70 - 100 mg/dL [facility] Work Phone: Interpretation and review of laboratory results Abnormal [facility] Work Phone: Potassium [Moles/Vol] 3.6 mmol/L 3.5 - 5.1 mmol/L [facility] Work Phone: Sodium [Moles/Vol] 139 mmol/L 135 - 145 mmol/L [facility] Work Phone: Urea nitrogen [Mass/Vol] 16 mg/dL 7 - 20 mg/d L [employer] Work Phone: Test Performed by [employer], [address] , [place], [place] [address] [employer] Work Phone: CR Chest Portableon 11-11-19 20 CR Chest Portable Patient Name: CARINE BARBA Diagnostic Radiology Exam Date/Time 11/11/2019 19:53:25 EST Exam CR Chest Portable Ordering Physician MD ERWIN, DAVID Ellis Accession Number [id number] CPT4 Codes 08315 () Reason For Exam ASTHMA SOB Report [...] Transcribed Date and Time: 11/11/2019 8:02 [facility] w/Auto DiffOr dered By: David Granger on 11-11-2019 Absolute Baso # 0.0 10*3/uL 0 - 0.2 10*3/uL [employer] Work Phone: Absolute Neut # 6.0 10*3/uL 1.8 - 7 10*3/uL [employer] Work Phone: Basophils/100 WBC (Bld) 0.4 % 0 - 2 % [facility] Work Phone: Eosinophils (Bld) [#/Vol] 0.4 10*3/uL 0 - 0.5 10*3/uL [facility] Work Phone: Eosinophils/100 WBC (Bld) 4.1 % 1 - 6 % [facility] Work Phone: Erythrocyte distribution width (RBC) [Ratio] 13.8 % 11.5 - 14.5 % [employer] Work Phone: Granulocytes/100 WBC (Bld) 67.2 % 40 - 80 % [facility] Work Phone: Hematocrit (Bld) [Volume fraction] 41.4 % 35 - 47 % [facility] Work Phone: Hemoglobin (Bld) [Mass/Vol] 14.1 g/dL 11.7 - 16 g/dL [employer] Work Phone: Lymphocytes (Bld) [#/Vol] 2.0 10*3/uL 1 - 4.3 10*3/uL [employer] Work Phone: Lymphocytes/100 WBC (Bld) 22.7 % 20 - 40 % [employer] Work Phone: MCH (RBC) [Entitic mass] 32.9 pg 26 - 34 pg [facility] Work Phone: MCHC 34.0 % 32 - 36 % [employer] Work Phone: MCV (RBC) [Entitic vol] 96.8 fL 79 - 98 fL S [employer] Work Phone: Monocytes (Bld) [#/Vol] 0.5 10*3/uL 0 - 0.8 10*3/uL [employer] Work Phone: Monocytes/100 WBC (Bld) 5.6 % 2 - 10 % S [employer] Work Phone: Platelet mean volume (Bld) [Entitic vol] 8.8 fL 7.4 - 10.4 fL [employer] Work Phone: Platelets (Bld) [#/Vol] 260 10*3/uL 140 - 440 10*3/uL [employer] Work Phone: RBC (Bld) [#/Vol] 4.28 10*6/uL 3.8 - 5.2 10*6/uL [facility] Work Phone: WBC (Bld) [#/Vol] 8.9 10*3/uL 3.6 - 10.7 10*3/uL [facility] Work Phone: Test Performed by [facility], [address] , [place], [place] [id number] [place] [address] Work Phone: Hemogram w/ Autodiffon 11-11 Abs Baso Cnt 0.0 10*3/uL Normal 0.0-0.2 [facility] Comment on above: Performed By: #### H RADHA BMP3 #### [facility] [address] [place] [address] Abs Neutrophile Cnt 6.0 10*3/uL Normal 1.8-7.0 [facility] Comment on above: Performed By: #### H RADHA BMP3 #### [facility] [address] [place] [address] Basophils/100 WBC (Bld) 0.4 % Normal 0.0-2.0 [facility] Comment on above: Performed By: #### H RADHA BMP3 #### [facility] [address] [address] Eosinophils (Bld) [#/Vol] 0.4 10*3/uL Normal 0.0-0.5 [facility] Comment on above: Performed By: #### H RADHA BMP3 #### [facility] [address] [place] [address] Eosinophils/100 WBC (Bld) 4.1 % Normal 1.0-6.0 [facility] Comment on above: Performed By: #### H RADHA BMP3 #### [facility] [address] [address] Erythrocyte distribution width (RBC) [Ratio] 13.8 % Normal 11.5-14.5 [facility] Comment on above: Performed By: #### H RADHA BMP3 #### [facility] [address] [place] [address] Granulocytes/100 WBC (Bld) 67.2 % Normal 40.0-80.0 [facility] Comment on above: Performed By: #### H RADHA BMP3 #### [facility] [address] [place] [address] Hematocrit (Bld) [Volume fraction] 41.4 % Normal 35.0-47.0 [facility] Comment on above: Performed By: #### H RADHA BMP3 #### [facility] [address] [place] [address] Hemoglobin (Bld) [Mass/Vol] 14.1 g/dL Normal 11.7-16.0 [facility] Comment on above: Performed By: #### H RADHA BMP3 #### [facility] [address] [place] [address] Lymphocytes (Bld) [#/Vol] 2.0 10*3/uL Normal 1.0-4.3 [facility] Comment on above: Performed By: #### H RADHA BMP3 #### [facility] [address] [place] [address] Lymphocytes/100 WBC (Bld) 22.7 % Normal 20.0-40.0 [facility] Comment on above: Performed By: #### H RADHA BMP3 #### [facility] [address] [place] [address] MCH (RBC) [Entitic mass] 32.9 pg Normal 26.0-34.0 [facility] Comment on above: Performed By: #### H RADHA BMP3 #### [facility] [address] [place] [address] MCHC (RBC) [Mass/Vol] 34.0 % Normal 32.0-36.0 [facility] Comment on above: Performed By: #### H RADHA, BMP3 #### [facility] [address] [place] [address] MCV (RBC) [Entitic vol] 96.8 fL Normal 79.0-98.0 [facility] Comment on above: Performed By: #### H RADHA BMP3 #### [facility] [address] [place] [address] Monocytes (Bld) [#/Vol] 0.5 10*3/uL Normal 0.0-0.8 [facility] Comment on above: Performed By: #### H EMDF, BMP3 #### [facility] [address] [place] [address] Monocytes/100 WBC (Bld) 5.6 % Normal 2.0-10.0 [facility] Comment on above: Performed By: #### H EMDF, BMP3 #### [facility] [address] [place] [address] Platelet mean volume (Bld) [Entitic vol] 8.8 fL Normal 7.4-10.4 [facility] Comment on above: Performed By: #### H EMDF, BMP3 #### [facility] [address] [place] [address] Platelets (Bld) [#/Vol] 260 10*3/uL Normal 140-440 [facility] Comment on above: Performed By: #### H EMDF, BMP3 #### [facility] [address] [place] [address] RBC (Bld) [#/Vol] 4.28 10*6/uL Normal 3.80-5.20 [facility] Comment on above: Performed By: #### H EMDF, BMP3 #### [facility] [address] [place] [address] WBC (Bld) [#/Vol] 8.9 10*3/uL Normal 3.6-10.7 [facility] Comment on above: Performed By: #### H EMDF, BMP3 #### [facility] [address] [place] [address] Rapid Flu A AND B, RNAon Rapid Influenza A Not Detected Normal Not Detected [facility] Comment on above: Performed By: #### R PFAB #### [facility] [address] [place] [address] Rapid Influenza B Not Detected Normal Not Detected [facility] Comment on above: Result Comment: Meth od: Isothermal nucleic acid amplification technology. Performed By: #### R PFAB #### [facility] [employer] [facility] [address] [place] [address] Rapid Influenza A/B Antigens Ordered By: David Granger on 11-11-2019 INFLUENZA A Not detected Not Detected [facility] [employer] Work Phone: INFLUENZA B Not detected Not Detected [facility] [employer] Work Phone: Comment on above: Method: Isothermal n ucleic acid amplification technology. Test Performed by [facility] [employer] [facility], [address] , [place], [place] [address] [employer] Work Phone: XR CHEST PORTABLEOrdered By: David Granger on 11-11-2019 Patient Name: CARINE BARBA ---Diagnostic Radiology--- Exam Date/Time 11/11/2019 19:53:25 EST Exam CR Chest Portable Ordering Physician MD ERWIN, DAVID Ellis Accession Number [id number] CPT4 Codes 53016 () Reason For Exam ASTHMA SOB Report [...] KRIKOR Transcribed Date and Time: 11/11/2019 8:02 [facility] Work Phone: [facility] - 11/11/2019 8:02 PM EST Patient Name: CARINE BARBA ---Diagnostic Radiology--- Exam Date/Time 11/11/2019 19:53:25 EST Exam CR Chest Portable Ordering Physician MD ERWIN, DAVID Ellis Accession Number [id number] CPT4 Codes 93247 () Reason For Exam ASTHMA SOB Report [...] KRIKOR Transcribed Date and Time: 11/11/2019 8:02 [facility] Work Phone: [facility] Note on 12-07-2017 [facility] Normal [facility] [place] Pat Eduon 12-07-2017 Pat Edu Normal [facility] [place] Patient Summary Documentson 12-07-2017 Patient Summary Documents Normal [facility] [place] [facility] on 10-07-2017 [facility] Normal [facility] [place] Patient Summary Documentson 10-06-2017 Patient Summary Documents Normal [facility] [place] ED Note-Provideron 7 ED Note-Provider Normal [facility] [place] Patient Summary Documentson 06-09-2017 Patient Summary Documents Normal [facility] [place] [facility] on 06-07-2017 [facility] Normal [facility] [place] Patient Summary Documentson 06-06-2017 Patient Summary Documents Normal [facility] [place] Vital Signs Date Time Vital Sign Value Performing Clinician Facility 06-18-2025 02:49-0400 Diastolic blood pressure 82 mm[Hg] Joel Shepard DO Work Phone: [facility] [employer] 06-18-2025 02:49-0400 Heart rate 107 /min Joel Shepard DO Work Phone: [facility] [employer] 06-18-2025 02:49-0400 Respiratory rate 17 /min Joel Shepard DO Work Phone: [facility] [employer] 06-18-2025 02:49-0400 SaO2% (BldA) [Mass fraction] 94 % Joel Shepard DO Work Phone: [facility] [employer] 06-18-2025 02:49-0400 Systolic blood pressure 131 mm[Hg] Joel Barrosoel DO Work Phone: [facility] [employer] 06-17-2025 22:01-0400 Body temperature 100.09 [degF] Joel Shepard DO Work Phone: [facility] [employer] 06-17-2025 21:50-0400 Body height 170.2 cm Joel Shepard DO Work Phone: [facility] [employer] 06-17-2025 21:50-0400 Body mass index (BMI) [Ratio] 25.06 kg/m2 Joel Shepard DO Work Phone: [facility] [employer] 06-17-2025 21:50-0400 Body weight 72.58 kg Joel Shepard DO Work Phone: [facility] [employer] 06-13-2025 14:57-0400 Body temperature 97.8 [degF] No Primary Care Physician [facility] 06-13-2025 14:57-0400 Diastolic blood pressure 78 mm[Hg] No Primary Care Physician [facility] 06-13-2025 14:57-0400 Heart rate 64 /min No Primary Care Physician [facility] 06-13-2025 14:57-0400 Respiratory rate 18 /min No Primary Care Physician [facility] 06-13-2025 14:57-0400 SaO2% (BldA) [Mass fraction] 99 % No Primary Care Physician [facility] 06-13-2025 14:57-0400 Systolic blood pressure 128 mm[Hg] No Primary Care Physician [facility] 06-13-2025 12:20-0400 Body height 170.18 cm No Primary Care Physician [facility] 06-13-2025 12:20-0400 Body mass index (BMI) [Ratio] 31.9 kg/m2 No Primary Care Physician [facility] 06-13-2025 12:20-0400 Body weight 92.6 kg No Primary Care Physician [facility] 05-22-2025 08:15-0400 Body temperature 98.2 [degF] No Primary Care Physician [facility] 05-22-2025 08:15-0400 Diastolic blood pressure 73 mm[Hg] No Primary Care Physician [facility] 05-22-2025 08:15-0400 Heart rate 90 /min No Primary Care Physician [facility] 05-22-2025 08:15-0400 Respiratory rate 16 /min No Primary Care Physician [facility] 05-22-2025 08:15-0400 SaO2% (BldA) [Mass fraction] 99 % No Primary Care Physician [facility] 05-22-2025 08:15-0400 Systolic blood pressure 118 mm[Hg] No Primary Care Physician [facility] 05-21-2025 15:14-0400 Body height 170.18 cm No Primary Care Physician [facility] 05-21-2025 15:14-0400 Body weight 71 kg No Primary Care Physician [facility] 05-18-2025 20:49-0400 Body mass index (BMI) [Ratio] 24.5 kg/m2 No Primary Care Physician [facility] 05-18-2025 20:38-0400 Body temperature 98.9 [degF] No Primary Care Physician [facility] 05-18-2025 20:38-0400 Diastolic blood pressure 72 mm[Hg] No Primary Care Physician [facility] 05-18-2025 20:38-0400 Heart rate 79 /min No Primary Care Physician [facility] 05-18-2025 20:38-0400 Respiratory rate 18 /min No Primary Care Physician [facility] 05-18-2025 20:38-0400 SaO2% (BldA) [Mass fraction] 99 % No Primary Care Physician [facility] 05-18-2025 20:38-0400 Systolic blood pressure 139 mm[Hg] No Primary Care Physician [facility] 05-18-2025 18:18-0400 Body height 170.18 cm No Primary Care Physician [facility] 05-18-2025 18:18-0400 Body mass index (BMI) [Ratio] 24.9 kg/m2 No Primary Care Physician [facility] 05-18-2025 18:18-0400 Body weight 72.25 kg No Primary Care Physician [facility] 04-15-2025 11:48-0400 SaO2% (BldA) [Mass fraction] 95 % Vincent Nesheim DO Work Phone: [facility] [employer] 04-15-2025 07:00-0400 Body temperature 97.2 [degF] Vincent Nesheim DO Work Phone: [facility] [employer] 04-15-2025 07:00-0400 Diastolic blood pressure 82 mm[Hg] Vincent Nesheim DO Work Phone: [facility] [employer] 04-15-2025 07:00-0400 Heart rate 112 /min Vincent Nesheim DO Work Phone: [facility] [employer] 04-15-2025 07:00-0400 Respiratory rate 16 /min Vincent Nesheim DO Work Phone: [facility] [employer] 04-15-2025 07:00-0400 Systolic blood pressure 130 mm[Hg] Vincent Nesheim DO Work Phone: [facility] [employer] 04-15-2025 01:02-0400 Body height 167.6 cm Vincent Nesheim DO Work Phone: [facility] [employer] 04-15-2025 01:02-0400 Body mass index (BMI) [Ratio] 27.44 kg/m2 Vincent Nesheim DO Work Phone: [facility] [employer] 04-15-2025 01:02-0400 Body weight 77.11 kg Vincent Nesheim DO Work Phone: [facility] [employer] 01-08-2025 03:11-0400 Diastolic blood pressure 64 mm[Hg] Giancarlo Batres MD Work Phone: [facility] 01-08-2025 03:11-0400 Heart rate 100 /min Giancarlo Batres MD Work Phone: [facility] 01-08-2025 03:11-0400 Respiratory rate 20 /min Giancarlo Batres MD Work Phone: [facility] 01-08-2025 03:11-0400 SaO2% (BldA) [Mass fraction] 96 % Giancarlo Batres MD Work Phone: [facility] 01-08-2025 03:11-0400 Systolic blood pressure 117 mm[Hg] Giancarlo Batres MD Work Phone: [facility] [employer] 01-08-2025 01:54-0400 Body height 170.2 cm Giancarlo Batres MD Work Phone: [facility] 01-08-2025 01:54-0400 Body mass index (BMI) [Ratio] 26.63 kg/m2 Giancarlo Batres MD Work Phone: [facility] 01-08-2025 01:54-0400 Body temperature 99 [degF] Giancarlo Batres MD Work Phone: [facility] [employer] 01-08-2025 01:54-0400 Body weight 77.11 kg Giancarlo Batres MD Work Phone: [facility] 03-23-2022 10:53-0400 Respiratory rate 16 /min [facility] Work Phone: 03-23-2022 08:42-0400 Diastolic blood pressure 88 mm[Hg] [facility] Work Phone: 03-23-2022 08:42-0400 Heart rate 86 /min [facility] Work Phone: 03-23-2022 08:42-0400 SaO2% (BldA) [Mass fraction] 97 % [facility] Work Phone: 03-23-2022 08:42-0400 Systolic blood pressure 160 mm[Hg] [facility] Work Phone: 03-23-2022 06:42-0400 Body height 170.18 cm [facility] Work Phone: 03-23-2022 06:42-0400 Body mass index (BMI) [Ratio] 32.3 kg/m2 [facility] Work Phone: 03-23-2022 06:42-0400 Body temperature 97.9 [degF] [facility] Work Phone: 03-23-2022 06:42-0400 Body weight 93.7 kg [facility] Work Phone: 07-05-2020 11:10-0400 Pulse (Heart Rate) 85 /min [facility] 07-05-2020 11:10-0400 Pulse Oximetry 95 % [facility] , [place] 07-05-2020 10:14-0400 BP Diastolic 63 mm[Hg] [facility] , [place] 07-05-2020 10:14-0400 BP Systolic 113 mm[Hg] [facility] , [place] 07-05-2020 10:14-0400 Respiratory Rate 16 /min [facility] [place] 07-05-2020 09:11-0400 BMI (Body Mass Index) 28.19 kg/m2 [facility] [employer] [facility], [place] 07-05-2020 09:11-0400 Body Temperature 98.2 [degF] [facility] [employer] [facility], [place] 07-05-2020 09:11-0400 Body weight 81.65 kg [facility] , [place] 07-05-2020 09:11-0400 Height 170.2 cm [facility] , [place] 06-08-2020 05:18-0400 BP Diastolic 66 mm[Hg] [facility] [employer] [facility] , [place] 06-08-2020 05:18-0400 BP Systolic 123 mm[Hg] [facility] , [place] 06-08-2020 05:18-0400 Pulse (Heart Rate) 88 /min [facility], [place] 06-08-2020 05:18-0400 Pulse Oximetry 99 % [facility] , [place] 06-08-2020 05:18-0400 Respiratory Rate 16 /min Anca [facility], [place] 06-08-2020 02:35-0400 BMI (Body Mass Index) 28.19 kg/m2 [facility], [place] 06-08-2020 02:35-0400 Body Temperature 98.49 [degF] [facility], [place] 06-08-2020 02:35-0400 Body weight 81.65 kg [facility] , [place] 06-08-2020 02:35-0400 Height 170.2 cm [facility] , [place] 04-29-2020 11:24-0400 BP Diastolic 69 mm[Hg] [facility] , [place] 04-29-2020 11:24-0400 BP Systolic 110 mm[Hg] [facility] , [place] 04-29-2020 11:24-0400 Pulse (Heart Rate) 101 /min [facility], [place] 04-29-2020 11:24-0400 Pulse Oximetry 97 % [facility] , [place] 04-29-2020 11:24-0400 Respiratory Rate 20 /min [facility], [place] 04-29-2020 09:16-0400 Body Temperature 98.4 [degF] [facility] 11-12-2019 11:47-0500 SaO2% (BldA) [Mass fraction] 96 % David Granger MD Work Phone: [employer] Work Phone: 11-12-2019 07:32-0500 Body temperature 98.01 [degF] David Granger MD Work Phone: [employer] Work Phone: 11-12-2019 07:32-0500 Diastolic blood pressure 84 mm[Hg] David Granger MD Work Phone: [employer] Work Phone: 11-12-2019 07:32-0500 Heart rate 81 /min David Granger MD Work Phone: [facility] Work Phone: 11-12-2019 07:32-0500 Respiratory rate 18 /min David Granger MD Work Phone: [facility] Work Phone: 11-12-2019 07:32-0500 Systolic blood pressure 124 mm[Hg] David Granger MD Work Phone: [facility] Work Phone: 11-11-2019 17:39-0500 Body height 170.2 cm David Granger MD Work Phone: [facility] Work Phone: 11-11-2019 17:39-0500 Body mass index (BMI) [Ratio] 28.98 kg/m2 David Granger MD Work Phone: [facility] Work Phone: 11-11-2019 17:39-0500 Body weight 83.92 kg David Granger MD Work Phone: [employer] Work Phone: Encounters Encounter Date Encounter Type Care Provider Facility Start: 06-21-2025 End: 06-21-2025 Telephone encounter Lorena Shah MD Work Phone: [facility] Start: 06-18-2025 End: 06-18-2025 Telephone encounter Quinton Gomez DO Work Phone: [facility] Start: 06-17-2025 End: 06-18-2025 Emergency department patient visit Joel Dinero Rach DO Work Phone: [facility] ED Comment on above: Moderate persistent asthma with exacerbation (Primary Dx); Shortness of breath Start: 06-17-2025 End: 06-17-2025 Office outpatient new 60 minutes Lorena Shah MD Work Phone: [facility] Comment on above: Severe opioid use di sorder (HCC) (Primary Dx); Severe cocaine use disorder (HCC); Tetrahydrocannabinol (THC) use disorder, moderate, dependence (HCC); Tobacco use disorder; Alcohol abuse; Anxiety; Depression, unspecified depression type Start: 06-17-2025 End: 06-17-2025 ambulatory [facility] Start: 06-13-2025 End: 06-13-2025 Emergency department patient visit No Primary Care Physician -Emergency Department Work Phone: Start: 06-04-2025 End: 06-04-2025 ambulatory [facility] Start: 06-04-2025 End: 06-04-2025 Subsequent hospital visit by physician Lorena Shah MD Work Phone: [facility] Comment on above: Arrived Start: 06-03-2025 End: 06-03-2025 Telephone encounter Hao Corado MD Work Phone: [facility] Start: 05-28-2025 End: 05-28-2025 Telephone encounter Lorena Shah MD Work Phone: [facility] Comment on above: Appointment Start: 05-25-2025 End: 06-03-2025 Evaluation and management of [facility] Start: 05-25-2025 End: 05-25-2025 Emergency department patient visit LISA ALCALA MD [facility] Start: 05-22-2025 Non-patient / Non-visit [facility] Work Phone: Start: 05-21-2025 Non-patient / Non-visit [facility] Work Phone: Start: 05-20-2025 Non-patient / Non-visit [facility] Work Phone: Start: 05-19-2025 Non-patient / Non-visit Dr. Kareem Lee DO [facility] Work Phone: Start: 05-18-2025 Non-patient / Non-visit Dr. Trae mendez DO -[facility] Work Phone: Start: 05-18-2025 ambulatory Trae Brooks Facility:[facility] Start: 05-18-2025 End: 05-22-2025 Evaluation and management of inpatient Dr. Trae Brooks DO -[facility] Work Phone: Start: 04-16-2025 End: 04-16-2025 Telephone encounter Nubia Bradford [facility] Comment on above: Hospital Follow-up Start: 04-15-2025 End: 04-15-2025 Telephone encounter Emelia Rucker APRN - [facility] Work Phone: [facility] [place] Start: 04-14-2025 End: 04-15-2025 ambulatory [facility] Start: 04-14-2025 End: 04-15-2025 Evaluation and management of inpatient Vincent Huitron DO Work Phone: [facility] Comment on above: Severe persistent as thma with exacerbation (Primary Dx) Start: 01-08-2025 End: 01-08-2025 Emergency department patient visit Giancarlo Batres MD Work Phone: [facility] ED Comment on above: Moderate persistent asthma with exacerbation (Primary Dx) Start: 10-18-2024 Emergency department patient visit Facility:[facility] Start: 10-17-2024 End: 10-17-2024 ambulatory No Primary Care Physician Facility:[facility] Start: 10-16-2024 End: 10-16-2024 Emergency department patient visit No Primary Care Physician Facility:[facility] Start: 03-23-2022 End: 03-23-2022 Emergency department patient visit [facility] Start: 07-05-2020 End: 07-05-2020 Emergency department patient visit Anca Macdonaldhta Work Phone: [facility] ED Comment on above: Exacerbation of asth ma, unspecified asthma severity, unspecified whether persistent (Primary Dx) Start: 06-08-2020 End: 06-08-2020 Emergency department patient visit Anca Almaguer Work Phone: [facility] Comment on above: Exacerbation of asth ma, unspecified asthma severity, unspecified whether persistent (Primary Dx) Start: 04-29-2020 End: 04-29-2020 Emergency department patient visit Nimo Hughes Work Phone: [facility] ED Comment on above: Moderate persistent asthma with exacerbation (Primary Dx) Start: 11-11-2019 End: 11-12-2019 Emergency department patient visit David Granger MD Work Phone: [facility] Comment on above: Moderate persistent asthma with acute exacerbation (Primary Dx); Infiltrate of lower lobe of right lung present on imaging study Start: 12-07-2017 End: 12-07-2017 Emergency department patient visit ALVARO BLACK Facility:[facility] Start: 10-06-2017 End: 10-07-2017 Emergency department patient visit [facility] Facility:[facility] Start: 06-09-2017 End: 06-09-2017 Emergency department patient visit SILVIO ALCALA Facility:[facility] Start: 06-06-2017 End: 06-06-2017 Emergency department patient visit [facility] Facility:B Start: 11-04-2016 End: 11-05-2016 Ambulatory LEXY OZUNA Facility:[facility] Procedures Date Procedure Procedure Detail Performing Clinician Start: 06-18-2025 Blood gases any comb ination ph pco2 po2 co2 hco3 Joel Dinero [employer] DO Work Phone: Start: 06-17-2025 Radiologic exam ches t single view Joel Shepard DO Work Phone: Start: 06-17-2025 Blood gases any comb ination ph pco2 po2 co2 hco3 Joel Dinero Tilera[employer] DO Work Phone: Start: 06-17-2025 End: 06-18-2025 Basic metabolic panel calcium total Joel Bar Skeedgalloel DO Work Phone: Start: 06-17-2025 SARS-COV-2, FLU A/B, AND RSV COMBO Joel Bar [employer] DO Work Phone: Start: 06-13-2025 Urnls dip stick/tabl et reagent auto microscopy No Primary Care Physician Start: 06-13-2025 Estimated creatinine clearance No Primary Care Physician Start: 05-28-2025 Lipid 1996 panel - S harshil or Plasma Lorena Shah MD Work Phone: Start: 05-26-2025 Adult depression scr eening assessment Lorena Shah MD Work Phone: Start: 05-22-2025 Estimated creatinine clearance No Primary Care Physician Start: 05-21-2025 Urine culture No Primar y Care Physician Start: 05-21-2025 Urnls dip stick/tabl et reagent auto microscopy No Primary Care Physician Start: 05-21-2025 Computed tomography of abdomen and pelvis with intravenous contrast No Primary Care Physician Start: 05-18-2025 Methadone measuremen t, urine No Primary Care Physician Start: 05-18-2025 Estimated creatinine clearance No Primary Care Physician Start: 04-15-2025 Blood gases any comb ination ph pco2 po2 co2 hco3 Prabhjot Foote MD Work Phone: Start: 04-14-2025 Procalcitonin (pct) Poli Easley [employer] Work Phone: Start: 04-14-2025 Respiratory pathogen s DNA and RNA panel - Nasopharynx by DAJA with non-probe detection Quinton E[employer]ley [employer] Work Phone: Start: 04-14-2025 SARS-COV-2, FLU A/B, AND RSV COMBO Vincent G Nesheim DO Work Phone: Start: 04-14-2025 Ecg routine ecg w/le ast 12 lds trcg only w/o i&r Vincent G Nesheim DO Work Phone: Start: 04-14-2025 End: 04-14-2025 Basic metabolic panel calcium total Vincent G Nesheim DO Work Phone: Start: 04-14-2025 Radiologic exam ches t single view Vincent G Nesheim DO Work Phone: Start: 01-08-2025 Radiologic exam [...] calcium total Anca Almaguer Work Phone: Start: 06-08-2020 Blood count complete auto&auto difrntl wbc Anca Almaguer Work Phone: Start: 06-08-2020 Fibrin dgradj produc ts d-dimer quantitative Anca Almaguer Work Phone: Start: 06-08-2020 Assay of troponin [...] Phone: Start: 11-04-2016 KNEE ARTHROSCOPY/SURGERY LEXY OZUNA Bone structure of fe mur (body structure) LISA ALCALA MD Comment on above: bilateral rods section LISA RAMIERZ MD Entire right lower l eg (body structure) LISA ALCALA MD Comment on above: artery & nerve Open reduction of fr acture with internal fixation LISA ALCALA MD Comment on above: left clavicle Plan of Treatment Date Care Activity Detail Author Start: 2066 RSV Immunization for Adults (1 - 1-dose 75+ series) RSV Immunization for Adults (1 - 1-dose 75+ series) [facility] [employer] Start: 2041 Zoster Vaccines (1 of 2) Zoste r Vaccines (1 of 2) [facility] Start: 05-28-2030 Lipid panel Lipid Panel [facility] Start: 05-26-2026 Depression Screening Depression Scre ening [facility] [employer] Start: 12-05-2025 Depression Monitoring Depression Mon itoring [facility] Start: 06-24-2025 Influenza vaccination [facility] Start: 06-17-2025 End: 06-17-2025 Patient encounter procedure 06/17/2025 12:00 PM EDT Office Visit [facility] [address] [place] [id number] Lorena Shah MD [address] [facility] [address] [place] [address] [facility] Start: 06-13-2025 [facility] Start: 06-13-2025 Chest 1 View (Portable) Chest 1 View (Portable) [facility] Start: 06-13-2025 XR Chest Single view [facility] Start: 06-04-2025 End: 06-04-2025 Patient encounter procedure 06/04/2025 1:00 PM EDT Appointment [facility] [address] [place] [id number] [facility] [address] [facility] [address] [place] [address] Karma Arevalo [facility] Start: 05-22-2025 Patient discharge [facility] Start: 05-21-2025 Following clinical pathway protocol [facility] Start: 05-21-2025 Bacteria identified in Urine by Culture Urine Culture [facility] Start: 05-21-2025 [facility] Start: 05-20-2025 Inhalation therapy procedure [facility] Start: 05-18-2025 Assessment using assessment scale [facility] Start: 05-18-2025 End: 05-18-2025 [facility] Start: 05-18-2025 Assessment of risk o f venous thromboembolism [facility] Start: 05-18-2025 Notification of physician [facility] Start: 05-18-2025 Vital signs measurements [facility] Start: 05-18-2025 Hospital admission, emergency, from emergency room, medical nature [facility] Start: 05-18-2025 Admission procedure [facility] Start: 05-18-2025 Patient referral to dietitian [facility] Start: 04-17-2025 End: 04-17-2025 Patient encounter procedure 04/17/2025 10:10 AM EDT Office Visit [facility] - [address] [place] [id number] Tal Davila, [employer] [facility] [address] [place] [address] [facility] [place] Start: 06-24-2024 COVID-19 Vaccine ( season) COVID-19 Vaccine ( season) [facility] Start: 06-24-2024 Influenza vaccination Influenza Vacc ine (#1) [facility] Start: 2021 Screening for malign ant neoplasm of cervix [facility] Start: 06-24-2020 Influenza vaccination Flu vaccine (# 1) [facility] [place] Start: 11-27-2019 End: 11-27-2019 Patient encounter procedure 11/27/2019 Office Visit Family Medicine Monika Layne MD [address] [place] [address] [phone] [facility] Start: 11-19-2019 End: 11-12-2020 XR CHEST STANDARD (2 VW) XR CHEST STANDARD (2 VW) Imaging Routine Infiltrate of lower lobe of right lung present on imaging study Expected: 11/19/2019, Expires: 11/12/2020 [facility] Work Phone: Comment on above: Expected: 11/19/2019 , Expires: 11/12/2020 Start: 06-24-2019 Influenza vaccination Flu vaccine (# 1) [facility] Work Phone: Start: 01-12-2012 Cervical cancer screen Cervical canc er screen [facility] Work Phone: Start: 01-12-2012 Screening for malign ant neoplasm of cervix [facility] Start: 2010 DTaP/Tdap/Td Vaccine s (1 - Tdap) DTaP/Tdap/Td Vaccines (1 - Tdap) [facility] Start: 2010 Hepatitis A Vaccines (1 of 2 - Risk 2-dose series) Hepatitis A Vaccines (1 of 2 - Risk 2-dose series) [facility] Start: 2010 Hepatitis B Vaccines (1 of 3 - 19+ 3-dose series) Hepatitis B Vaccines (1 of 3 - 19+ 3-dose series) [facility] Start: 2010 Pneumococcal Vaccine : Pediatrics (0 to 5 Years) and At-Risk Patients (6 to 49 Years) (1 of 2 - PCV) Pneumococcal Vaccine: Pediatrics (0 to 5 Years) and At-Risk Patients (6 to 49 Years) (1 of 2 - PCV) [facility] Start: 2009 Hepatitis C screening Hepatitis C Sc reening [facility] Start: 2006 HIV screen HIV screen [facility] Work Phone: Start: 2006 HIV screening HIV screen [facility] [place] [place] Start: 08-13-2004 Varicella vaccination Varicell a Vaccines (1 of 2 - 13+ 2-dose series) [facility] Start: 07-17-2004 DTaP/Tdap/Td Vaccine s (6 - Tdap) DTaP/Tdap/Td Vaccines (6 - Tdap) [facility] Start: 01-12-2004 Varicella vaccination Varicell a Vaccines (1 of 2 - 13+ 2-dose series) [facility] Start: 2003 Depression Screening Depression Scre ening [facility] Start: 2002 DTaP/Tdap/Td vaccine (6 - Tdap) DTaP/Tdap/Td vaccine (6 - Tdap) [facility] Work Phone: Start: 1997 Pneumococcal 0-64 ye ars Vaccine (1 of 1 - PPSV23) Pneumococcal 0-64 years Vaccine (1 of 1 - PPSV23) [facility] Work Phone: Start: 01-12-1992 MMR Vaccines (1 of 1 - Standard series) MMR Vaccines (1 of 1 - Standard series) [facility] Start: 01-12-1992 Varicella vaccine (1 of 2 - 2-dose childhood series) Varicella vaccine (1 of 2 - 2-dose childhood series) [facility] Work Phone: Start: 1991 [facility] Start: 1991 Lipid panel Lipid Panel [facility] Start: 1991 Thyroid stimulating hormone measurement TSH Level [facility] EKG 12 Lead [facility] [place] [facility] Treatment [facility] Work Phone: Comment on above: 0800, 1200, 1600, 20 00 (respiratory use only) until discontinued starting 04/29/2020 Every 4hr while awak e until discontinued starting 11/12/2019 0600, 1000, 1400, 18 00, 2200 until discontinued starting 11/11/2019 Microscopic urinalysis [facility] Organism count, microscopic method [facility] Patient Education [facility] Work Phone: Patient referral [facility] Work Phone: End: 11-11-2019 Pulse Oximetry Spot Check Pulse Oximetry Spot Check Respiratory Care Routine One Time for 1 Occurrences starting 11/11/2019 until 11/11/2019 [facility] Work Phone: Comment on above: One Time for 1 Occur rences starting 11/11/2019 until 11/11/2019 Urine culture [facility] Urine microscopy: epithelial cells [facility] Urine microscopy: re d cells [facility] White blood cell count [facility] Immunizations Immunization Date Immunization Notes Care Provider [facility] 07-13-2016 influenza, injectabl e, quadrivalent, preservative free No Primary Care Physician [facility] 07-13-2016 influenza virus vaccine, unspecified formulation Lorena Shah MD Work Phone: [facility] 10-15-2014 influenza, seasonal, injectable, preservative free No Primary Care Physician [facility] 08-26-2008 influenza, injectabl e, quadrivalent, preservative free No Primary Care Physician [facility] 08-26-2005 influenza, injectabl e, quadrivalent, preservative free No Primary Care Physician [facility] 08-18-2004 influenza, injectabl e, quadrivalent, preservative free No Primary Care Physician [facility] 07-16-2004 hepatitis B vaccine, pediatric or pediatric/adolescent dosage No Primary Care Physician [facility] 07-16-2004 measles, mumps and rubella virus vaccine No Primary Care Physician [facility] 07-16-2004 TD(adult) unspecifie d formulation No Primary Care Physician [facility] 06-12-1999 hepatitis B vaccine, pediatric or pediatric/adolescent dosage No Primary Care Physician [facility] 05-12-1999 hepatitis B vaccine, pediatric or pediatric/adolescent dosage No Primary Care Physician [facility] 03-05-1996 diphtheria, tetanus toxoids and acellular pertussis vaccine No Primary Care Physician [facility] 03-05-1996 trivalent poliovirus vaccine, live, oral No Primary Care Physician [facility] 07-22-1992 diphtheria, tetanus toxoids and acellular pertussis vaccine No Primary Care Physician [facility] 07-22-1992 trivalent poliovirus vaccine, live, oral No Primary Care Physician [facility] 04-21-1992 haemophilus influenz ae type b vaccine, PRP-T conjugate No Primary Care Physician [facility] 04-21-1992 measles, mumps and rubella virus vaccine No Primary Care Physician [facility] 1991 diphtheria, tetanus toxoids and acellular pertussis vaccine No Primary Care Physician [facility] 1991 haemophilus influenz ae type b vaccine, PRP-T conjugate No Primary Care Physician [facility] 1991 haemophilus influenz ae type b vaccine, PRP-T conjugate No Primary Care Physician [facility] 1990 diphtheria, tetanus toxoids and acellular pertussis vaccine No Primary Care Physician [facility] 1990 trivalent poliovirus vaccine, live, oral No Primary Care Physician [facility] 1990 diphtheria, tetanus toxoids and acellular pertussis vaccine No Primary Care Physician [facility] 1990 haemophilus influenz ae type b vaccine, PRP-T conjugate No Primary Care Physician [facility] 1990 trivalent poliovirus vaccine, live, oral No Primary Care Physician [facility] Payers Date Payer Category Payer Medicaid HMO [employer] M [id number] 2024 Medicaid [id number] 2024 Self-pay [id number] 2019 Unknown [facility] MEDICAID xxxxxxxxxxx 2019-Present [phone] CLAIMS DEPARTMENT [address] [place] [address] xxxxxxxxxxx [id number] 2019 Medicaid [id number] 2017 Medicaid [id number] 1990 Unknown [id number] Unknown [id number] Unknown [id number] Unknown [id number] Unknown [id number] Unknown [id number] Unknown [id number] Unknown [id number] Unknown [id number] Unknown [id number] Unknown [id number] Social History Date Type Detail Facility Start: 11-11-2019 End: 01-08-2025 Tobacco smoking status NHIS Current every day smoker [employer] Work Phone: Start: 11-11-2019 End: 06-13-2025 Cigarettes smoked current (pack per day) - Reported [employer] Work Phone: History of tobacco use [employer] Work Phone: Start: 11-11-2019 End: 06-17-2025 Alcohol intake Current drinker of alcohol (finding) [employer] Work Phone: Start: 02-28-2018 Alcohol Comment 2-3 shots/day intermittently [employer] Work Phone: Start: 1990 Sex Assigned At Not on file [employer] Phone: Exposure to SARS-CoV -2 (event) Unable to assess [employer] Start: 06-08-2020 End: 07-05-2020 Tobacco smoking status NHIS Former smoker [employer] Start: 06-08-2020 End: 01-08-2025 Tobacco use and exposure Current user [employer] [address] [employer] [place] Exposure to SARS-CoV -2 (event) Not sure [facility] Start: 03-23-2022 Tobacco smoking status NHIS Unknown if ever smoked [facility] Work Phone: Start: 04-16-2019 None [facility] Start: 04-16-2019 With Family [facility] Start: 07-12-2020 Cigarettes [facility] Start: 1990 Sex Assigned At Female [facility] History of tobacco use Cigarette Smoker [facility] Start: 01-08-2025 End: 06-13-2025 Alcohol Use Disorder Identification Test - Consumption [AUDIT-C] [facility] [place] Frequency of Alcohol Consumption Not on file [employer] Start: 03-26-2011 End: 05-24-2022 Sex Female (finding) [employer] Has the [facility], [employer], oil, or water [employer] threatened to shut off services in your home in past 12Mo No [employer] How often to you hav e a drink containing alcohol? Never [employer] (I/We) worried wheth er (my/our) food would run out before (I/we) got money to buy more. Never true [facility] Start: 09-24-2019 Tobacco smoking status Never smoked tobacco (finding) [facility] Sexual Orientation [place] Aidan bowman Has the [facility], [employer], oil, or water company threatened to shut off services in your home in past 12Mo Yes [facility] Are you now , , , , never or living with a partner? Living with partner [facility] How often to you hav e a drink containing alcohol? Monthly or less [facility] How many standard dr inks containing alcohol do you have on a typical day? 1 or 2 [facility] How often do you hav e 6 or more drinks on 1 occasion? Less than monthly [facility] How hard is it for y ou to pay for the very basics like food, housing, medical care, and heating Somewhat hard [facility] Do you feel stress - tense, restless, nervous, or anxious, or unable to sleep at night because your mind is troubled all the time - these days [OSQ] Very much [facility] (I/We) worried wheth er (my/our) food would run out before (I/we) got money to buy more. Sometimes true [facility] Goals Date Patient Goal Desired Activity /State Personal health goal Functional Status Date Assessment Result Facility 06-04-2025 Patient Health Quest ionnaire 2 item (PHQ-2) [Reported] [facility] 06-04-2025 PHQ-9 quick depressi on assessment panel [Reported.PHQ] [facility] 05-22-2025 Functional status Ambulates;Up a d armando;Dangle Feet [facility] Work Phone: 04-15-2025 Drug Abuse Screening Test-10 [DAST-10] [facility] Mental Status Date Assessment Result Facility 06-13-2025 Cognitive function Level Of Cons ciousness Awake;Alert;Appropriate;Follow s Commands [facility] Work Phone: 05-22-2025 Cognitive function Voice/Name [facility] Work Phone: 03-23-2022 Cognitive function Level Of Cons ciousness Awake;Alert;Appropriate [facility] Work Phone: Clinical Notes 10-18-2024 to 06-21-2025 Telephone Encounter - Ebonie Rudolphley - 06/21/2025 3:49 PM EDTTelephone Encounter - Ebonie Rudolphley - 06/21/2025 3:49 PM EDTTelephone Encounter - Chante Fay - 06/18/2025 9:02 AM EDTAttachments Note Date & Type Note Facility 06-21-2025 Telephone encount er Note LV 06/21/25 Tried to call patient to schedule appointment for her sublocade injection with Dr Shah. Advised patient to contact the office so we can get her scheduled. [facility] 06-21-2025 Miscellaneous Notes Formattin g of this note might be different from the original. LVM 06/21/25 Tried to call patient to schedule appointment for her sublocade injection with Dr Shah. Advised patient to contact the office so we can get her scheduled. documented in this encounter [facility] 06-18-2025 Note Received PHARMACY TECHNICIAN ASSISTANT referral . Pt is not new and needs to r/s her hospital follow up. LVM for pt to call back to schedule. [facility] 06-18-2025 Telephone encount er Note Received PHARMACY TECHNICIAN ASSISTANT referral. Pt is not new and needs to r/s her hospital follow up. LVM for pt to call back to schedule. [facility] 06-18-2025 Miscellaneous Notes Formattin g of this note might be different from the original. Received PHARMACY TECHNICIAN ASSISTANT referral. Pt is not new and needs to r/s her hospital follow up. LVM for pt to call back to schedule. documented in this encounter [facility] 06-18-2025 Hospital Discharg e lois Shepard DO - 06/18/2025 2:24 AM EDT Continue steroids and nebulizers every 4 hours. Return if you have persistent increased work of breathing resistant to nebulizers every 2 hours, further concern. The following attachments cannot be sent through Care Everywhere.Asthma in Adults ([place])documented in this encounter [facility] 06-18-2025 Emergency department Note Patient walked to bathroom and back to room with Pulse Oximetry holding 92-94% room air. Patient states she feels better than she did when she arrived to ER. Patient was able too converse while walking without difficulty. [facility] 06-18-2025 Emergency department Note Patient walked to bathroom and back to room with Pulse Oximetry holding 92-94% room air. Patient states she feels better than she did when she arrived to ER. Patient was able too converse while walking without difficulty. EMERGENCY DEPARTMENT ENCOUNTER Pt Name: Carine Barba Birthdate 1990 Date of evaluation: 06/17/2025 ED Provider: Joel Shepard DO CHIEF COMPLAINT Chief Complaint Patient presents with Asthma HISTORY OF PRESENT ILLNESS (Location/Symptom, Timing/Onset, Context/Setting, Quality, Duration, Modifying Factors, Severity) Note limiting factors. I wore appropriate PPE for the entirety of this encounter. HPI Carine Barba is a 35 y.o. female who presents to the emergency department with a chief complaint of an asthma attack. Patient arrives in respiratory distress speaking several word sentences and tachypneic. She is able to note that her child has been sick and she believes she is also come down with a respiratory virus. Her symptoms quickly progressed over a couple hours today. She has been intubated for asthma in the past. Nursing Notes were reviewed. REVIEW OF SYSTEMS Review of Systems PAST MEDICAL HISTORY Medical History[1] SURGICAL HISTORY Surgical History[2] CURRENT MEDICATIONS Discharge Medication List as of 06/18/2025 2:27 AM CONTINUE these medications which have NOT CHANGED Details albuterol 108 (90 Base) MCG/ACT inhaler Inhale 2 puffs every 4 hours as needed for wheezing., Starting Tue04/15/2025, Until Tue05/26/2025 at 2359, Normal buprenorphine ER (Sublocade) 300 MG/1.5ML injection Inject 1.5 mL (1 each) under the skin every 14 days for 2 doses as sublocade initiation, Starting Tue06/17/2025, Until Tue07/17/2025, Normal buprenorphine-naloxone (Suboxone) 8-2 MG per sublingual film Place 1 Film under the tongue 2 times daily for 7 days., Starting Tue06/17/2025, Until Tue06/24/2025, Normal gabapentin (Neurontin) 300 MG capsule Take 2 capsules (600 mg) by mouth 3 times daily., Starting Tue06/03/2025, Until Tue09/01/2025, Normal lithium 600 MG capsule Take 1 capsule (600 mg) by mouth Nightly., Starting Tue06/03/2025, Until Tue09/01/2025, Normal mometasone-formoterol (Dulera 200) 200-5 MCG/ACT inhaler Inhale 2 puffs 2 times daily. Rinse mouth with water after use to reduce aftertaste and incidence of candidiasis. Do not swallow., Starting Tue04/15/2025, Until Tue05/15/2025, Normal !! QUEtiapine (SEROquel) 100 MG tablet Take 1 tablet (100 mg) by mouth 4 times daily as needed (agitation, sleep, or anxiety. Can take doses with a 1 hour gap in between.)., Starting Tue06/03/2025, Until Tue09/01/2025 at 2359, Normal !! QUEtiapine (SEROquel) 400 MG tablet Take 1 tablet (400 mg) by mouth Nightly., Starting Tue06/03/2025, Until Tue09/01/2025, Normal !! - Potential duplicate medications found. Please discuss with provider. ALLERGIES Cefadroxil FAMILY HISTORY Family History[3] SOCIAL HISTORY Social History[4] SCREENINGS PHYSICAL EXAM ED Triage Vitals Temp Heart Rate Resp BP 08220006/17/25214906/17/25214906/17/252149 37.8 C (100.1 F) (!) 123 (!) 28 133/84 SpO2 Temp Source Heart Rate Source Patient Position 06/17/25214906/17/25220006/17/25214906/17/252149 100 % Temporal Monitor Lying BP Location FiO2 (%) 06/17/252149 -- Right arm Physical Exam Constitutional: General: She is in acute distress. HENT: Head: Normocephalic and atraumatic. Nose: Nose normal. Mouth/Throat: Mouth: Mucous membranes are moist. Eyes: General: No scleral icterus. Cardiovascular: Rate and Rhythm: Regular rhythm. Tachycardia present. Pulses: Normal pulses. Pulmonary: Effort: Respiratory distress present. Breath sounds: Wheezing present. Comments: Increased work of breathing. Moderate respiratory distress. Abdominal: General: There is no distension. Palpations: Abdomen is soft. Tenderness: There is no abdominal tenderness. Musculoskeletal: General: No deformity. Comments: +1 pitting edema which the later patient notes has been improving and was thought to be recent medication side effect. Skin: General: Skin is warm and dry. Findings: No rash. Neurological: Mental Status: She is oriented to person, place, and time. Gait: Gait normal. Comments: Moves all 4 extremities spontaneously and purposefully Psychiatric: Comments: Anxious DIAGNOSTIC RESULTS RADIOLOGY (Per Emergency Physician): Interpretation per the Radiologist below, if available at the time of this note: XR chest 1 view Final Result No acute cardiopulmonary process. Report Dictated on Electronically Signed By: Turner Miranda MD Electronically Signed Date/Time: 06/17/2025 10:48 PM EDT LABS: Labs Reviewed BASIC METABOLIC PANEL - Abnormal Result Value SODIUM 141 POTASSIUM 3.5 CHLORIDE 104 CARBON DIOXIDE 27 UREA NITROGEN 27 (*) CREATININE 1.13 (*) GLUCOSE 68 (*) CALCIUM 9.2 ANION GAP 10 eGFR 65.6 CBC WITH AUTO DIFFERENTIAL - Abnormal Auto WBC 13.9 (*) RBC 3.82 Hemoglobin 12.7 Hematocrit 37.7 MCV 98.7 MCH 33.2 MCHC 33.7 RDW 14.1 Platelets 287 MPV 9.5 nRBC 0.0 Neutrophils Relative 82.6 (*) Lymphocytes Relative 9.8 (*) Monocytes Relative 4.6 (*) Eosinophils Relative 2.3 Basophils Relative 0.3 Immature Grans % 0.4 Neutrophils Absolute 11.5 (*) Lymphocytes Absolute 1.4 Monocytes Absolute 0.6 Eosinophils Absolute 0.3 Basophils Absolute 0.0 Immature Grans Absolute 0.1 (*) BLOOD GAS, VENOUS (SWR AND SHC) - Abnormal pH 7.298 (*) pCO2 58 (*) pO2 25 BASE EXCESS 2.0 HCO3 28.5 (*) TCO2 30.0 (*) O2 Saturation 39.0 (*) Source Of Oxygen None (Room Air) Amount Of Oxygen 0 LACTIC ACID WITH REFLEX - Abnormal LACTIC ACID 2.3 (*) BLOOD GAS, VENOUS (SWR AND SHC) - Abnormal pH 7.372 pCO2 46 pO2 52 BASE EXCESS 1.0 HCO3 26.7 TCO2 28.0 O2 Saturation 85.0 (*) Source Of Oxygen None (Room Air) Amount Of Oxygen 0 SARS-COV-2, FLU A/B, AND RSV COMBO - Normal SARS-CoV-2 Not Detected Respiratory Syncytial Virus Not Detected Influenza A Not Detected Influenza B Not Detected Narrative: Methodology: real-time, RT-PCR The SARS-CoV-2, Flu A/B, and RSV Combo assay is intended for in vitro diagnostic use under the FDA Emergency Use Authorization (EUA). This test has not been FDA cleared or approved. In compliance with this authorization, please visit www.fda.gov/media/153910/downlo ad or www.fda.gov/media/249761/downlo ad to access the applicable information sheets. LACTIC ACID WITH REFLEX - Normal LACTIC ACID 2.1 LACTIC ACID WITH REFLEX All other labs were within normal range or not returned as of this dictation. EMERGENCY DEPARTMENT COURSE and DIFFERENTIAL DIAGNOSIS/MDM: Vitals: Vitals: 06/17/25 2150 06/17/25 2201 06/18/25 0213 06/18/25 0249 BP: 133/84 131/82 BP Location: Right arm Patient Position: Lying Pulse: (!) 123 (!) 122 107 Resp: (!) 28 22 17 Temp: 37.8 C (100.1 F) TempSrc: Temporal SpO2: 100% 93% 94% Weight: 72.6 kg (160 lb) Height: 1.702 m (5' 7) 35-year-old female with history of asthma and intubation due to severe exacerbation presents in moderate respiratory distress. She is tachypneic, she is tachycardic, she has increased work of breathing with diffuse wheezing. She had tried home nebulizers and came when her symptoms persisted/got worse. She was given high-dose Methylpred, magnesium IV, stacked DuoNebs, and evaluated with checks x-ray for pneumonia or pneumothorax. VBG showed respiratory acidosis. This resolved on recheck. She has a mild leukocytosis, is negative COVID, influenza, and RSV. She has a mild SILVERIO with a creatinine of 1.13. On reassessment the patient has withstood multiple hours without needing nebulizers, has normalized increased work of breathing, and is able to ambulate without significant symptoms or hypoxia. Patient agreeable to discharge with nebulizer refill, high-dose steroids, pulmonology referral, strict return precautions. Diagnoses as of 06/18/25 0303 Moderate persistent asthma with exacerbation Shortness of breath CRITICAL CARE TIME Total Critical Care time was 53 minutes, excluding separately reportable procedures. There was a high probability of clinically significant/life threatening deterioration in the patient's condition which required my urgent intervention. ED Medications managed: Medications ipratropium-albuterol (Duo-Neb) 0.5-2.5 mg/3 mL nebulizer solution - Pyxis ADS Override Pull ( Given 06/17/252239) ipratropium-albuterol (Duo-Neb) 0.5-2.5 mg/3 mL nebulizer solution - Pyxis ADS Override Pull ( Given 06/17/252238) methylPREDNISolone sodium succinate (PF) (SOLU-Medrol) injection 125 mg (125 mg IntraVENous Given 06/17/256) magnesium sulfate IVPB premix 2,000 mg (0 mg IntraVENous Stopped 06/17/25 2340) ipratropium-albuterol (Duo-Neb) 0.5-2.5 mg/3 mL nebulizer solution 3 mL (3 mL Nebulization Given 06/17/252238) midazolam (Versed) injection 1 mg (1 mg IntraVENous Given 06/17/25 2310) albuterol (2.5 MG/3ML) 0.083% nebulizer solution 2.5 mg (2.5 mg Nebulization Given 06/18/25 0109) Prescription drugs considered: Joel Shepard DO 06/18/25 0239 [1] Past Medical History: Diagnosis Date Anxiety Asthma History of blood clots Multiple fractures bilateral, clavicle, hand, L4-L5 verterbral bodiess [2] Past Surgical History: Procedure Laterality Date ANTERIOR CRUCIATE LIGAMENT REPAIR BREAST SURGERY SECTION (HISTORICAL) [3] No family history on file. [4] Social History Socioeconomic History Marital status: Single Tobacco Use Smoking status: Every Day Current packs/day: 0.25 Types: Cigarettes Smokeless tobacco: Current Vaping Use Vaping status: Never Used Substance and Sexual Activity Alcohol use: Yes Drug use: Yes Types: Marijuana Social Drivers of Health Financial Resource Strain: Medium Risk (06/13/2025) Overall Financial Resource Strain (CARDIA) Difficulty of Paying Living Expenses: Somewhat hard Food Insecurity: Food Insecurity Present (06/13/2025) Hunger Vital Sign Worried About Running Out of Food in the Last Year: Sometimes true Ran Out of Food in the Last Year: Sometimes true Transportation Needs: Unmet Transportation Needs (06/13/2025) PRAPARE - Transportation Lack of Transportation (Medical): No Lack of Transportation (Non-Medical): Yes Physical Activity: Insufficiently Active (06/13/2025) Exercise Vital Sign Days of Exercise per Week: 2 days Minutes of Exercise per Session: 30 min Stress: Stress Concern Present (06/13/2025) [employer] [place] [employer] - Occupational Stress Questionnaire Feeling of Stress : Very much Social Connections: Moderately Integrated (06/13/2025) Social Connection and Isolation Panel [NHANES] Frequency of Communication with Friends and Family: Twice a week Frequency of Social Gatherings with Friends and Family: Once a week Attends Sabianist Services: Never Active Member of Clubs or Organizations: No Attends Club or Organization Meetings: 1 to 4 times per year Marital Status: Living with partner Intimate Partner Violence: Not At Risk (06/13/2025) Humiliation, Afraid, Rape, and Kick questionnaire Fear of Current or Ex-Partner: No Emotionally Abused: No Physically Abused: No Sexually Abused: No Housing Stability: High Risk (06/13/2025) Housing Stability Vital Sign Unable to Pay for Housing in the Last Year: Yes Number of Times Moved in the Last Year: 0 Homeless in the Last Year: No Joel Shepard DO 06/18/25 0303 Pt. Arrived to ED via personal transportation with complaint of asthma exacerbation that began at home approximately 1 hour prior to arrival. Pt. Reports that people in her home have been sick with flu like symptoms. Pt. Reports completing two nebulizing treatments at home without relief. documented in this encounter [facility] 06-17-2025 Emergency department Triage note Pt. Arrived to ED via personal transportation with complaint of asthma exacerbation that began at home approximately 1 hour prior to arrival. Pt. Reports that people in her home have been sick with flu like symptoms. Pt. Reports completing two nebulizing treatments at home without relief. [facility] 06-17-2025 Physician Emergen cy department Note EMERGENCY DEPARTMENT ENCOUNTER Pt Name: Carine Barba Birthdate 1990 Date of evaluation: 06/17/2025 ED Provider: Joel Shepard DO CHIEF COMPLAINT Chief Complaint Patient presents with Asthma HISTORY OF PRESENT ILLNESS (Location/Symptom, Timing/Onset, Context/Setting, Quality, Duration, Modifying Factors, Severity) Note limiting factors. I wore appropriate PPE for the entirety of this encounter. HPI Carine Barba is a 35 y.o. female who presents to the emergency department with a chief complaint of an asthma attack. Patient arrives in respiratory distress speaking several word sentences and tachypneic. She is able to note that her child has been sick and she believes she is also come down with a respiratory virus. Her symptoms quickly progressed over a couple hours today. She has been intubated for asthma in the past. Nursing Notes were reviewed. REVIEW OF SYSTEMS Review of Systems PAST MEDICAL HISTORY Medical History[1] SURGICAL HISTORY Surgical History[2] CURRENT MEDICATIONS Discharge Medication List as of 06/18/2025 2:27 AM CONTINUE these medications which have NOT CHANGED Details albuterol 108 (90 Base) MCG/ACT inhaler Inhale 2 puffs every 4 hours as needed for wheezing., Starting Tue04/15/2025, Until Tue05/26/2025 at 2359, Normal buprenorphine ER (Sublocade) 300 MG/1.5ML injection Inject 1.5 mL (1 each) under the skin every 14 days for 2 doses as sublocade initiation, Starting Tue06/17/2025, Until Tue07/17/2025, Normal buprenorphine-naloxone (Suboxone) 8-2 MG per sublingual film Place 1 Film under the tongue 2 times daily for 7 days., Starting Tue06/17/2025, Until Tue06/24/2025, Normal gabapentin (Neurontin) 300 MG capsule Take 2 capsules (600 mg) by mouth 3 times daily., Starting Tue06/03/2025, Until Tue09/01/2025, Normal lithium 600 MG capsule Take 1 capsule (600 mg) by mouth Nightly., Starting Tue06/03/2025, Until Tue09/01/2025, Normal mometasone-formoterol (Dulera 200) 200-5 MCG/ACT inhaler Inhale 2 puffs 2 times daily. Rinse mouth with water after use to reduce aftertaste and incidence of candidiasis. Do not swallow., Starting Tue04/15/2025, Until Tue05/15/2025, Normal !! QUEtiapine (SEROquel) 100 MG tablet Take 1 tablet (100 mg) by mouth 4 times daily as needed (agitation, sleep, or anxiety. Can take doses with a 1 hour gap in between.)., Starting Tue06/03/2025, Until Tue09/01/2025 at 2359, Normal !! QUEtiapine (SEROquel) 400 MG tablet Take 1 tablet (400 mg) by mouth Nightly., Starting Tue06/03/2025, Until Tue09/01/2025, Normal !! - Potential duplicate medications found. Please discuss with provider. ALLERGIES Cefadroxil FAMILY HISTORY Family History[3] SOCIAL HISTORY Social History[4] SCREENINGS PHYSICAL EXAM ED Triage Vitals Temp Heart Rate Resp BP 08/220006/17/25214906/17/25214906/17/252149 37.8 C (100.1 F) (!) 123 (!) 28 133/84 SpO2 Temp Source Heart Rate Source Patient Position 06/17/25214906/17/25220006/17/25214906/17/252149 100 % Temporal Monitor Lying BP Location FiO2 (%) 06/17/252149 -- Right arm Physical Exam Constitutional: General: She is in acute distress. HENT: Head: Normocephalic and atraumatic. Nose: Nose normal. Mouth/Throat: Mouth: Mucous membranes are moist. Eyes: General: No scleral icterus. Cardiovascular: Rate and Rhythm: Regular rhythm. Tachycardia present. Pulses: Normal pulses. Pulmonary: Effort: Respiratory distress present. Breath sounds: Wheezing present. Comments: Increased work of breathing. Moderate respiratory distress. Abdominal: General: There is no distension. Palpations: Abdomen is soft. Tenderness: There is no abdominal tenderness. Musculoskeletal: General: No deformity. Comments: +1 pitting edema which the later patient notes has been improving and was thought to be recent medication side effect. Skin: General: Skin is warm and dry. Findings: No rash. Neurological: Mental Status: She is oriented to person, place, and time. Gait: Gait normal. Comments: Moves all 4 extremities spontaneously and purposefully Psychiatric: Comments: Anxious DIAGNOSTIC RESULTS RADIOLOGY (Per Emergency Physician): Interpretation per the Radiologist below, if available at the time of this note: XR chest 1 view Final Result No acute cardiopulmonary process. Report Dictated on Electronically Signed By: Turner Miranda MD Electronically Signed Date/Time: 06/17/2025 10:48 PM EDT LABS: Labs Reviewed BASIC METABOLIC PANEL - Abnormal Result Value SODIUM 141 POTASSIUM 3.5 CHLORIDE 104 CARBON DIOXIDE 27 UREA NITROGEN 27 (*) CREATININE 1.13 (*) GLUCOSE 68 (*) CALCIUM 9.2 ANION GAP 10 eGFR 65.6 CBC WITH AUTO DIFFERENTIAL - Abnormal Auto WBC 13.9 (*) RBC 3.82 Hemoglobin 12.7 Hematocrit 37.7 MCV 98.7 MCH 33.2 MCHC 33.7 RDW 14.1 Platelets 287 MPV 9.5 nRBC 0.0 Neutrophils Relative 82.6 (*) Lymphocytes Relative 9.8 (*) Monocytes Relative 4.6 (*) Eosinophils Relative 2.3 Basophils Relative 0.3 Immature Grans % 0.4 Neutrophils Absolute 11.5 (*) Lymphocytes Absolute 1.4 Monocytes Absolute 0.6 Eosinophils Absolute 0.3 Basophils Absolute 0.0 Immature Grans Absolute 0.1 (*) BLOOD GAS, VENOUS (SWR AND SHC) - Abnormal pH 7.298 (*) pCO2 58 (*) pO2 25 BASE EXCESS 2.0 HCO3 28.5 (*) TCO2 30.0 (*) O2 Saturation 39.0 (*) Source Of Oxygen None (Room Air) Amount Of Oxygen 0 LACTIC ACID WITH REFLEX - Abnormal LACTIC ACID 2.3 (*) BLOOD GAS, VENOUS (SWR AND SHC) - Abnormal pH 7.372 pCO2 46 pO2 52 BASE EXCESS 1.0 HCO3 26.7 TCO2 28.0 O2 Saturation 85.0 (*) Source Of Oxygen None (Room Air) Amount Of Oxygen 0 SARS-COV-2, FLU A/B, AND RSV COMBO - Normal SARS-CoV-2 Not Detected Respiratory Syncytial Virus Not Detected Influenza A Not Detected Influenza B Not Detected Narrative: Methodology: real-time, RT-PCR The SARS-CoV-2, Flu A/B, and RSV Combo assay is intended for in vitro diagnostic use under the FDA Emergency Use Authorization (EUA). This test has not been FDA cleared or approved. In compliance with this authorization, please visit www.fda.gov/media/[email or web address] ad or www.fda.gov/media/[email or web address] ad to access the applicable information sheets. LACTIC ACID WITH REFLEX - Normal LACTIC ACID 2.1 LACTIC ACID WITH REFLEX All other labs were within normal range or not returned as of this dictation. EMERGENCY DEPARTMENT COURSE and DIFFERENTIAL DIAGNOSIS/MDM: Vitals: Vitals: 06/17/25 2150 06/17/25 2201 06/18/25 0213 06/18/25 0249 BP: 133/84 131/82 BP Location: Right arm Patient Position: Lying Pulse: (!) 123 (!) 122 107 Resp: (!) 28 22 17 Temp: 37.8 C (100.1 F) TempSrc: Temporal SpO2: 100% 93% 94% Weight: 72.6 kg (160 lb) Height: 1.702 m (5' 7) 35-year-old female with history of asthma and intubation due to severe exacerbation presents in moderate respiratory distress. She is tachypneic, she is tachycardic, she has increased work of breathing with diffuse wheezing. She had tried home nebulizers and came when her symptoms persisted/got worse. She was given high-dose Methylpred, magnesium IV, stacked DuoNebs, and evaluated with checks x-ray for pneumonia or pneumothorax. VBG showed respiratory acidosis. This resolved on recheck. She has a mild leukocytosis, is negative COVID, influenza, and RSV. She has a mild SILVERIO with a creatinine of 1.13. On reassessment the patient has withstood multiple hours without needing nebulizers, has normalized increased work of breathing, and is able to ambulate without significant symptoms or hypoxia. Patient agreeable to discharge with nebulizer refill, high-dose steroids, pulmonology referral, strict return precautions. Diagnoses as of 06/18/25 0303 Moderate persistent asthma with exacerbation Shortness of breath CRITICAL CARE TIME Total Critical Care time was 53 minutes, excluding separately reportable procedures. There was a high probability of clinically significant/life threatening deterioration in the patient's condition which required my urgent intervention. ED Medications managed: Medications ipratropium-albuterol (Duo-Neb) 0.5-2.5 mg/3 mL nebulizer solution - Pyxis ADS Override Pull ( Given 06/17/252239) ipratropium-albuterol (Duo-Neb) 0.5-2.5 mg/3 mL nebulizer solution - Pyxis ADS Override Pull ( Given 06/17/252238) methylPREDNISolone sodium succinate (PF) (SOLU-Medrol) injection 125 mg (125 mg IntraVENous Given 06/17/256) magnesium sulfate IVPB premix 2,000 mg (0 mg IntraVENous Stopped 06/17/25 2340) ipratropium-albuterol (Duo-Neb) 0.5-2.5 mg/3 mL nebulizer solution 3 mL (3 mL Nebulization Given 06/17/252238) midazolam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 Discharge instructions Patient Education 05/25/2025 15:13:46 Medical Screening Exam, Nonemergent Medical Screening Exam: No Emergency You have had a medical screening exam. The results show that you don t have a condition that needs to be treated in the emergency department. You can safely wait until you can see your healthcare provider for evaluation or treatment. It is up to you to make an appointment for follow-up care. Medical emergencies If you think you have a medical emergency, please come to the emergency department. That s what we are here for. A medical emergency might be severe pain. It might be a condition that gets worse. Or it might be problems with a . The emergency department is open to all who need treatment. But if you don t think you have a serious or life-threatening problem, try these other choices. If you have a primary care doctor: Call your doctor before coming to the emergency department. After office hours, someone from your doctor s office is on-call by phone. The person on-call may be able to give you advice over the phone on how to take care of the problem You may be able to get an appointment to see your doctor. If you don t have a primary care doctor: Call the referral doctor or clinic shown below during office hours. You should be able to make an appointment to be seen. If you aren t sure whether you are having an emergency, you can always return to the emergency department to be looked at. Phone advice from the emergency department We are here 24 hours a day to give emergency care. But this hospital does not give phone advice formedical conditions. If you need advice for a condition that can t wait to be seen by your doctor, you will need to come back to this facility in person. [id number] [employer]. [address] [place] [address]. All rights reserved. This information is not intended as a substitute for professional medical care. Always follow yourhealthcare professional's instructions. Follow Up Care 05/25/2025 12:53:09 With:[facility] Address: [phone] When:2-4 days Comments:Return to ED if symptoms worsen Follow-up with Primary Care Physician [facility] 08-02-2025 Emergency department Discharge summary Discharge Instructions Thank you for allowing [facility] to assist you with your healthcare needs. The following is importantdischarge information regarding your hospital visit. Diagnosis from Today's Visit Encounter for medical screening examination What to Do Next Instructions from Your Care Team No qualifying data available. Post Acute Orders No qualifying data available. You Need to Schedule the Following Appointments Follow Up with [facility] When:Within 2-4 days Where: [phone] Additional Information: Return to ED if symptoms worsen Follow-up with Primary Care Physician Allergies Duricef facial swelling Medications Please ask your primary doctor or pharmacist before taking any other medication not listed, including over the counter drugs, herbal medications, vitamins and or supplements as they may interact withyour home medications. What How Much When Why Instructions Last Dose Unchanged albuterol (albuterol MDI (90 mcg/ inh) CFC free inhalation aerosol) 2 puff(s) by inhalation Every 4 hours as needed for for wheezing Unchanged albuterol (albuterol MDI (90 mcg/ inh) CFC free inhalation aerosol) 2 puff(s) by inhalation Every 4 hours Unchanged albuterol (albuterol MDI (90 mcg/ inh) CFC free inhalation aerosol) 2 puff(s) by inhalation Every 4 hours Exacerbation of asthma Unchanged fluticasone-vilanterol (Breo Ellipta 200 mcg-25 mcg/ inh inhalation powder) 1 puff(s) by inhalation Every day Duration: 30 Days Unchanged fluticasone-vilanterol (Breo Ellipta 200 mcg-25 mcg/ inh inhalation powder) 1 puff(s) by inhalation Every day Exacerbation of asthma Please take this list to your next doctor s visit. Bring all medications you take, including over the counter medications, herbals and other supplements with you to your doctor s visit. Patients and families are reminded to discard old lists and to update any records with all medication providers or retail pharmacies. Education Materials Medical Screening Exam: No Emergency You have had a medical screening exam. The results show that you don t have a condition that needs to be treated in the emergency department. You can safely wait until you can see your healthcare provider for evaluation or treatment. It is up to you to make an appointment for follow-up care. Medical emergencies If you think you have a medical emergency, please come to the emergency department. That s what we are here for. A medical emergency might be severe pain. It might be a condition that gets worse. Or it might be problems with a . The emergency department is open to all who need treatment. But if you don t think you have a serious or life-threatening problem, try these other choices. If you have a primary care doctor: Call your doctor before coming to the emergency department. After office hours, someone from your doctor s office is on-call by phone. The person on-call may be able to give you advice over the phone on how to take care of the problem You may be able to get an appointment to see your doctor. If you don t have a primary care doctor: Call the referral doctor or clinic shown below during office hours. You should be able to make an appointment to be seen. If you aren t sure whether you are having an emergency, you can always return to the emergency department to be looked at. Phone advice from the emergency department We are here 24 hours a day to give emergency care. But this hospital does not give phone advice formedical conditions. If you need advice for a condition that can t wait to be seen by your doctor, you will need to come back to this facility in person. [phone] [employer]. [address] [place] [address], [place] [address]. All rights reserved. This information is not intended as a substitute for professional medical care. Always follow yourhealthcare professional's instructions. Additional Information VACCINATE! IT SAVES LIVES! Members of the community who have not yet received the COVID-19 vaccine and would like to receive it can visit one of [facility] vaccine clinics. There are many vaccine clinic locations within the [facility]. For locations and available times, please visit www.gettheshot.coronavirus.[place].gov/. It is important to note that some COVID mobile vaccine clinics are held outdoors and may be canceled in rainy or stormy conditions. To learn more about pediatric vaccinations (ages 5-11), we invite you to visit the [facility] webpage. https://www.Nuforces.org/pages/5542-Ycyvx-Vnvbpsjhnay-Hbguatqiwu-Clvvn-Oja stions.htmlTo learn more about the COVID-19 vaccine, we invite you to visit the CDC website for a list of frequently asked questions. https://www.cdc.gov/coronavirus/2019-ncov/vaccines/faq.html [facility] Patient Portal Access Instructions: Stay connected with your healthcare team and access your personal medical information anytime with the [facility] Patient Portal. If you would like a full copy of your medical records please contact the [facility] Medical Records Department Tuesday through Tuesday between 8a.m. and 4:30p.m. Please follow the directions below to access the portal: 1.Access the email account you provided upon registration to the [facility].2.Look for an invitation email from [facility].3.Open the email and access the invitation link: Accept Invitation to [facility]4.Fill in the required garcía to create your account. Sign into [email or web address] with your username and password that you created in the above steps to stay up to date. You can then view a summary of results, a summary of your visits, and the ability to download your summaries to your computer or send the information securely to a physician. Remember that your healthcare information is confidential, so carefully consider who you will allow to register on the [facility] Patient Portal for access to your information. You can also access the [facility] Patient Portal on the [employer]. Simply click on Health Records under MoSo and then click on the Dragon Inside logo. HOW TO SAFELY DISPOSE OF PRESCRIPTION MEDICATIONS Please use one of the following methods to safely dispose of your unused medications. 1.Use a drug disposal kit: the drug disposal pouch allows you to safely discard your old and unuseddrugs. Ask your nurse to give you one when you are discharged.2.Visit a local take-back location: Many local pharmacies and police departments have programs that collect old and unwanted prescriptiondrugs. Call your local pharmacy or go to http://iPosi.Ubimo/4G4Wr3u to find one close to you.3.Make use of household items: Use cat litter or old coffee grounds to dispose medications if other options arenot available. Mix your drugs with these household products, seal them in an airtight container andthrow it into the garbage. Call [facility]: [phone] to be sure your drugs can be disposed of in this way. Some medicines may require a different approach.4.Never flush your medications down the toilet. IF YOU HAVE BEEN PRESCRIBED AN OPIOIDS FOR PAIN If you have been prescribed an opioid (such as hydrocodone, oxycodone or morphine), it is critical to understand the possible side effects and risks of opioid pain medications. Even when taken as directed, opioids can have several side effects including: Tolerance, meaning you might need to take more of a medication for the same pain relief. Nausea, vomiting and/or constipation. Sleepiness, dizziness, dry mouth, confusion, depression or itching. Physical dependence, meaning you have withdrawal symptoms when a medication is stopped ? this can develop within a few days. KNOW YOUR RESPONSIBILITIES It is important to know exactly how much and how often to take the opioid pain medications you are prescribed. Never take opioids in higher amounts or more often than prescribed. Do not combine opioids with alcohol or other drugs that cause drowsiness, such as benzodiazepines, also known as benzos,including diazepam and alprazolam, muscle relaxants or sleep aids. Never sell or share prescriptionopioids. This is illegal. Store opioids in a secure place and out of reach of others (including children, family, friends and visitors). The last page(s) of this document has been signed and retained as a CHART COPY Signatures Patient Education Materials Medical Screening Exam, Nonemergent Medication Leaflets My discharge plan and instructions have been reviewed and explained to me and I,CARINE BARBA understand my current condition and have read and understand these discharge instructions. I have received a written copy of the plan/instructions. If I have questions, I am aware that I should contact my doctor. Patient/[employer] Signature: Date/Time: Relationship to Patient: Witness Name/Signature: Date/Time: [id number] Discharge summary Author Ivonne Sales [facility] Note Date/Time May 22, 2025 10:5 7am [facility] Medical Records Department [address] [place] [address] Discharge Summary 05/22/25 1049 MR#: [id number] Acct: [id number] Name: CARINE BARBA Rep #:[id number] : 1990 35 From: Ivonne Sales DO PCP: Care Physician,No Primary Status :ADM IN Location: [place] [address] Providers Date of Admission: 05/18/25 Date of Discharge: 05/22/25 Primary Care Physician: No Primary Care Phys Reason For Visit: OPIATE WITHDRAWL Diagnosis Discharge Diagnosis (1) Desire for detoxification: Status: Acute (2) Polysubstance abuse: Status: Acute Code(s): F19.10 - Other psychoactive substance abuse, uncomplicated (3) Opiate withdrawal: Status: Acute Code(s): F11.93 - Opioid use, unspecified with withdrawal Medications at Discharge Home Medications albuterol sulfate 90 mcg/actuation aerosol inhaler 1 - 2 puff inhalation Q4H PRNPRN Wheezing ##1 04/17/19 Hospital Course Operations None Procedures - (CT abdomen and pelvis) Summary of Care Provided Minutes Spent on Discharge: 38 Hospital Course: Carine Barba is a 35-year-old white female who presented to the emergency department [facility] on 05/18/2025 requesting treatment for opioid withdrawal. Patient report did on admission that she snorts heroin but also uses marijuana and crack cocaine and occasionally alcohol. Her last use was on 17 May and since that time she had some chills but otherwise has been feeling okay. She indicated that with previous attempts at sobriety her opiate withdrawal symptoms usually begin on day 2 and she feels like she is crawling out of her skin and feels very unwell. She had not been through our program previously but did reach out to 180 and they advised her to come to the hospitalfor treatment. Vital signs on presentation showed temperature of 37.2, heart rate 92, respiratory rate 16, blood pressure was 137/90 and pulse ox was 100% room air. CBC was unremarkable. Chemistry panel was unremarkable. test was negative. Toxicology screen was negative for ethyl alcohol. She did have presumptive positive fentanyl cocaine and cannabinoids on her tox screen. She was admitted to the medical floor and placed on a buprenorphine taper per [facility] protocol as well as supportive medications for symptom management related to her withdrawal. During her hospital course she was concerned that she was possibly developing a UTI due to back pain. Given the back pain and concern forpossible pyelonephritis a CT and a UA as well as urine culture were obtained. UA was completely unremarkable. CT abdomen pelvis only showed constipation which was treated with MiraLAX p.o. twice daily and urine culture was unremarkable. Antibiotics were not prescribed. 24 hours after that occurrence her back pain was much improved and she felt better overall. She never had any dysuria. She indicates she wanted residential treatment for 30 days. This was arranged and she was able to be discharged to her rehab facility on 05/22/2025 instable condition. We have advised her to follow-up with a primary care physician and establish if she is not currently established with a primary care physician. Discharge diagnoses: Acute opiate withdrawal Polysubstance abuse Flank pain Constipation Asthma Tobacco abuse Physical Exam Const alert, oriented x3, no apparent distress, average body habitus, no limitations and well nourished; Negative for healthy appearing Constitutional Narrative: Middle-aged, white female, sitting up in bed watching television, appears much more comfortable than she has in the last 48 hours, appears nontoxic with General Appearance: cooperative, comfortable, well kempt and well developed Exam Limitations: no limitations HEENT normocephalic, head/scalp atraumatic, hearing grossly normal bilaterally and moist oral mucous membranes Neck General: trachea midline Resp normal respiratory effort, no retractions, no use of accessory muscles and clearto auscultation bilaterally Auscultation: wheezes expiratory wheezes, right lower, right upper and anterior;Negative for rales or rhonchi Cardio regular rate, regular rhythm, S1 normal heart sound, S2 normal heart sound, no murmurs, no rub and no gallops GI normal to inspection, nondistended, normoactive bowel sounds, soft to palpation and non-tender Extremity no clubbing, cyanosis or edema Extremity Narrative: Pedal radial pulses are 2+ Neuro oriented x3, moves all extremities and no focal motor deficits Speech: speech normal Psych affect normal Psych Narrative: eye contact is good patient interacts appropriately Weight / BMI Weight Weight: 71 kg Body Mass Index (BMI) 24.5 ABG / Lab / Microbiology Data 05/22/25 05:28 05/22/25 05:28 Laboratory: Laboratory Results - last 24 hr 05/22/25 05:28: WBC 8.3, RBC 4.21, Hgb 13.7, Hct 41.5, MCV 98.6, MCH 32.5 H, MCHC 33.0, RDW Std Deviation 48.3 H, RDW Coeff of Emilia 13.2, Plt Count 242, MPV 10.0, Sodium 137, Potassium 4.8, Chloride 104, Carbon Dioxide 23.9, Anion Gap 10, BUN 16, Creatinine 0.70, Estim Creat Clear Calc 110.12, Est GFR (MDRD) Non-Af 116, BUN/Creatinine Ratio 23.3 H, Glucose 108 H, Calcium 8.6 D/C Instructions Discharge Activity: Return to Normal Activity DC O2, CPAP, BIPAP Needs Home O2 Discharge instructions: No Meaningful Use Info Meaningful Use Meaningful Use Diagnoses (Choose all that apply): None applicable Discharge Plan Admission Admit Date/Time: 05/18/25 19:36 Primary Reason for Your Visit: Opiate detox Attending Provider: Ivonne Sales Primary Care Provider: Care Physician,No Primary Consulting Providers: Trae Brooks; Ruperto Lee Discharge Orders/Prescriptions Prescriptions: Continued albuterol sulfate 1 INHALER inhaler 1 - 2 puff inhalation Q4H PRN PRN (Reason: Wheezing) Qty: 1 0RF Referrals / Follow Up: Care Physician,No Primary [Primary Care Provider] - Disposition Disposition (needs filled in before D/C Order can be placed): Inpatient Rehab Unit/Facility Charges/Coding Visit Charges Inpatient E&M: 37129 Disch Hosp 05/22/25 1057 <Electronically signed by Ivonne Sales DO> Cosigner Signature (if applicable): CC: Dr. Ivonne Sales DO; No Primary Care Physician~ Signed [facility] Work Phone: [phone]) 608-230407-30-2025 Consult note [facility] Medical Records Department [address] [address] Counseling Note - Pharmacy 05/22/25 1119 MR#: [id number] Acct: [id number] Name: CARINE BARBA Rep #:[id number] : 1990 35 From: Patsy Pacheco PCP: Care Physician,No Primary Status :ADM IN Location: [place] [address] [place]acy [place] Med Reconciliation Pharmacy Service has performed discharge medication reconciliation for this patient. The patient's discharge medication list was reviewed for discrepancies and discrepancies were resolved. Medications at Discharge Home Medications albuterol sulfate 90 mcg/actuation aerosol inhaler 1 - 2 puff inhalation Q4H PRNPRN Wheezing ##1 04/17/19 05/22/25 1119 Date _ Patsy Partidaignleo Signature (if applicable): Date CC: ~ Signed [facility]07-30-2025 Discharge summary [facility] Medical Records Department [address] [place] [address] Discharge Summary 05/22/25 1049 MR#: [id number] Acct: [id number] Name: CARINE BARBA Rep #:[id number] : 1990 35 From: Ivonne Sales DO PCP: Care Physician,No Primary Status :ADM IN Location: [facility] [id number] Providers Date of Admission: 05/18/25 Date of Discharge: 05/22/25 Primary Care Physician: No Primary Care Phys Reason For Visit: OPIATE WITHDRAWL Diagnosis Discharge Diagnosis (1) Desire for detoxification: Status: Acute (2) Polysubstance abuse: Status: Acute Code(s): F19.10 - Other psychoactive substance abuse, uncomplicated (3) Opiate withdrawal: Status: Acute Code(s): F11.93 - Opioid use, unspecified with withdrawal Medications at Discharge Home Medications albuterol sulfate 90 mcg/actuation aerosol inhaler 1 - 2 puff inhalation Q4H PRNPRN Wheezing ##1 04/17/19 Hospital Course Operations None Procedures - (CT abdomen and pelvis) Summary of Care Provided Minutes Spent on Discharge: 38 Hospital Course: Carine Barba is a 35-year-old white female who presented to the emergency department [facility] on 05/18/2025 requesting treatment for opioid withdrawal. Patient report did on admission that she snorts heroin but also uses marijuana and crack cocaine and occasionally alcohol. Her last use was on 17 May and since that time she had some chills but otherwise has been feeling okay. She indicated that with previous attempts at sobriety her opiate withdrawal symptoms usually begin on day 2 and she feels like she is crawling out of her skin and feels very unwell. She had not been through our program previously but did reach out to [facility] and they advised her to come to the hospitalfor treatment. Vital signs on presentation showed temperature of 37.2, heart rate 92, respiratory rate 16, blood pressure was 137/90 and pulse ox was 100% room air. CBC was unremarkable. Chemistry panel was unremarkable. test was negative. Toxicology screen was negative for ethyl alcohol. She did have presumptive positive fentanyl cocaine and cannabinoids on her tox screen. She was admitted to the medical floor and placed on a buprenorphine taper per COWS protocol as well as supportive medications for symptom management related to her withdrawal. During her hospital course she was concerned that she was possibly developing a UTI due to back pain. Given the back pain and concern forpossible pyelonephritis a CT and a UA as well as urine culture were obtained. UA was completely unremarkable. CT abdomen pelvis only showed constipation which was treated with MiraLAX p.o. twice daily and urine culture was unremarkable. Antibiotics were not prescribed. 24 hours after that occurrence her back pain was much improved and she felt better overall. She never had any dysuria. She indicates she wanted residential treatment for 30 days. This was arranged and she was able to be discharged to her rehab facility on 05/22/2025 instable condition. We have advised her to follow-up with a primary care physician and establish if she is not currently established with a primary care physician. Discharge diagnoses: Acute opiate withdrawal Polysubstance abuse Flank pain Constipation Asthma Tobacco abuse Physical Exam Const alert, oriented x3, no apparent distress, average body habitus, no limitations and well nourished; Negative for healthy appearing Constitutional Narrative: Middle-aged, white female, sitting up in bed watching television, appears much more comfortable than she has in the last 48 hours, appears nontoxic with General Appearance: cooperative, comfortable, well kempt and well developed Exam Limitations: no limitations HEENT normocephalic, head/scalp atraumatic, hearing grossly normal bilaterally and moist oral mucous membranes Neck General: trachea midline Resp normal respiratory effort, no retractions, no use of accessory muscles and clearto auscultation bilaterally Auscultation: wheezes expiratory wheezes, right lower, right upper and anterior;Negative for rales or rhonchi Cardio regular rate, regular rhythm, S1 normal heart sound, S2 normal heart sound, no murmurs, no rub and no gallops GI normal to inspection, nondistended, normoactive bowel sounds, soft to palpation and non-tender Extremity no clubbing, cyanosis or edema Extremity Narrative: Pedal radial pulses are 2+ Neuro oriented x3, moves all extremities and no focal motor deficits Speech: speech normal Psych affect normal Psych Narrative: eye contact is good patient interacts appropriately Weight / BMI Weight Weight: 71 kg Body Mass Index (BMI) 24.5 ABG / Lab / Microbiology Data 05/22/25 05:28 05/22/25 05:28 Laboratory: Laboratory Results - last 24 hr 05/22/25 05:28: WBC 8.3, RBC 4.21, Hgb 13.7, Hct 41.5, MCV 98.6, MCH 32.5 H, MCHC 33.0, RDW Std Deviation 48.3 H, RDW Coeff of Emilia 13.2, Plt Count 242, MPV 10.0, Sodium 137, Potassium 4.8, Chloride 104, Carbon Dioxide 23.9, Anion Gap 10, BUN 16, Creatinine 0.70, Estim Creat Clear Calc 110.12, Est GFR (MDRD) Non- Af 116, BUN/Creatinine Ratio 23.3 H, Glucose 108 H, Calcium 8.6 D/C Instructions Discharge Activity: Return to Normal Activity DC O2, CPAP, BIPAP Needs Home O2 Discharge instructions: No Meaningful Use Info Meaningful Use Meaningful Use Diagnoses (Choose all that apply): None applicable Discharge Plan Admission Admit Date/Time: 05/18/25 19:36 Primary Reason for Your Visit: Opiate detox Attending Provider: Ivonne Sales Primary Care Provider: Care Physician,No Primary Consulting Providers: Trae Brooks; Ruperto Lee Discharge Orders/Prescriptions Prescriptions: Continued albuterol sulfate 1 INHALER inhaler 1 - 2 puff inhalation Q4H PRN PRN (Reason: Wheezing) Qty: 1 0RF Referrals / Follow Up: Care Physician,No Primary [Primary Care Provider] - Disposition Disposition (needs filled in before D/C Order can be placed): Inpatient Rehab Unit/Facility Charges/Coding Visit Charges Inpatient E&M: 02159 Disch Hosp 05/22/25 1057 Cosigner Signature (if applicable): CC: Dr. Ivonne Sales DO; No Primary Care Physician~ Signed [facility]07-30-2025 [facility] Medical Records Department [address] [place] [id number] Discharge Summary 05/22/25 1049 MR#: [id number] Acct: [id number] Name: CARINE BARBA Rep #: [id number] : 1990 35 From: Ivonne Sales DO PCP: Care Physician,No Primary Status:ADM IN [facility] Prov[facility] Date of Admission: 05/18/25 Date of Discharge: 05/22/25 Primary Care Physician: No Primary Care Phys Reason For Visit: OPIATE WITHDRAWL Diagnosis Discharge Diagnosis (1) Desire for detoxification: Status: Acute (2) Polysubstance abuse: Status: Acute Code(s): F19.10 - Other psychoactive substance abuse, uncomplicated (3) Opiate withdrawal: Status: Acute Code(s): F11.93 - Opioid use, unspecified with withdrawal Medications at Discharge Home Medications albuterol sulfate 90 mcg/actuation aerosol inhaler 1 - 2 puff inhalation Q4H PRN PRN Wheezing ##1 04/17/19 Hospital Course Operations None Procedures - (CT abdomen and pelvis) Summary of Care Provided Minutes Spent on Discharge: 38 Hospital Course: Carine Barba is a 35-year-old white female who presented to the emergency department [facility] on 05/18/2025 requesting treatment for opioid withdrawal. Patient report did on admission that she snorts heroin but also uses marijuana and crack cocaine and occasionally alcohol. Her last use was on 17 May and since that time she had some chills but otherwise has been feeling okay. She indicated that with previous attempts at sobriety her opiate withdrawal symptoms usually begin on day 2 and she feels like she is crawling out of her skin and feels very unwell. She had not been through our program previously but did reach out to [facility] and they advised her to come to the hospital for treatment. Vital signs on presentation showed temperature of 37.2, heart rate 92, respiratory rate 16, blood pressure was 137/90 and pulse ox was 100% room air. CBC was unremarkable. Chemistry panel was unremarkable. test was negative. Toxicology screen was negative for ethyl alcohol. She did have presumptive positive fentanyl cocaine and cannabinoids on her tox screen. She was admitted to the medical floor and placed on a buprenorphine taper per COWS protocol as well as supportive medications for symptom management related to her withdrawal. During her hospital course she was concerned that she was possibly developing a UTI due to back pain. Given the back pain and concern for possible pyelonephritis a CT and a UA as well as urine culture were obtained. UA was completely unremarkable. CT abdomen pelvis only showed constipation which was treated with MiraLAX p.o. twice daily and urine culture was unremarkable. Antibiotics were not prescribed. 24 hours after that occurrence her back pain was much improved and she felt better overall. She never had any dysuria. She indicates she wanted residential treatment for 30 days. This was arranged and she was able to be discharged to her rehab facility on 05/22/2025 in stable condition. We have advised her to follow-up with a primary care physician and establish if she is not currently established with a primary care physician. Discharge diagnoses: Acute opiate withdrawal Polysubstance abuse Flank pain Constipation Asthma Tobacco abuse Physical Exam Const alert, oriented x3, no apparent distress, average body habitus, no limitations and well nourished; Negative for healthy appearing Constitutional Narrative: Middle-aged, white female, sitting up in bed watching television, appears much more comfortable than she has in the last 48 hours, appears nontoxic with General Appearance: cooperative, comfortable, well kempt and well developed Exam Limitations: no limitations HEENT normocephalic, head/scalp atraumatic, hearing grossly normal bilaterally and moist oral mucous membranes Neck General: trachea midline Resp normal respiratory effort, no retractions, no use of accessory muscles and clear to auscultation bilaterally Auscultation: wheezes expiratory wheezes, right lower, right upper and anterior; Negative for rales or rhonchi Cardio regular rate, regular rhythm, S1 normal heart sound, S2 normal heart sound, no murmurs, no rub and no gallops GI normal to inspection, nondistended, normoactive bowel sounds, soft to palpation and non-tender Extremity no clubbing, cyanosis or edema Extremity Narrative: Pedal radial pulses are 2+ Neuro oriented x3, moves all extremities and no focal motor deficits Speech: speech normal Psych affect normal Psych Narrative: eye contact is good patient interacts appropriately Weight / BMI Weight Weight: 71 kg Body Mass Index (BMI) 24.5 ABG / Lab / Microbiology Data 05/22/25 05:28 05/22/25 05:28 Laboratory: Laboratory Results - last 24 hr 05/22/25 05:28 (more content not included)...[facility] 05-21-2025 Progress note Author Ivonne Sales [facility] Note Date/Time May 21, 2025 1:44 pm [facility] Medical Records Department [address] [place] [address] Progress Note - Hospitalist 05/21/25 1315 MR#: [id number] Acct: [id number] Name: CARINE BARBA Rep #:[id number] : 1990 35 From: Ivonne Sales DO PCP: Care Physician,No Primary Status :ADM IN Location: [place] [address]-1 Reason for Visit Chief Complaint: Requesting treatment for opiate withdrawal Subjective Subjective Patient states she is feeling better with regards to her opiate detox. Still having some headache and anxiety. Also complaining of bilateral flank pain thatstarted in the right side. States she gets frequent urinary tract infections. Denies any dysuria at this time. We did go ahead and get a CT of her abdomen pelvis that ended up being unremarkable for any acute findings in her kidneys. It does show significant constipation and these results were discussed with the patient. I did discuss with her the UA was unremarkable so we will wait for theurine culture to come back since she is asymptomatic with regards to actual urinary symptoms. Toradol was ordered for pain. Objective Data Objective Data Vital Signs: Vital Signs Temp Pulse Resp BP Pulse Ox O2 Del Method 97.7 F L 82 16 94/62 97 Room Air 05/21/25 08:39 05/21/25 08:39 05/21/25 08:39 05/21/25 08:39 05/21/25 08:39 05/21/25 13:13 Oxygen Delivery Method Room Air Weight: 71 kg Body Mass Index (BMI) 24.5 Intake & Output: Intake and Output for Last 24 Hours 05/19/25 05/20/25 05/21/25 23:59 23:59 23:59 Intake Total 800 / 800 Balance 800 / 800 Lab / Micro Data 05/18/25 18:40 05/18/25 18:40 Labs: Laboratory Results - last 24 hr 05/21/25 09:00: Urine Color Yellow, Urine Clarity Sl. Cloudy, Urine pH 7.0, Ur Specific Daykin 1.015, Urine Protein 15 H, Urine Glucose (UA) Normal, Urine Ketones Negative, Urine Occult Blood 10 H, Urine Nitrite Negative, Urine Bilirubin Negative, Urine Urobilinogen Normal, Ur Leukocyte Esterase Negative, Urine RBC 0-5 SEEN, Urine WBC 0 SEEN, Ur Squamous Epith Cells 0-5 SEEN, Urine Bacteria 0 SEEN, Urine Mucus 0 SEEN Radiography Diagnostic Testing: Radiology Impression Abdomen/Pelvis CT 05/21/25 08:55 IMPRESSION: Mild hepatomegaly. Small right ovarian cyst. IUD seen within the uterus. Large amount of fecal material is seen in the colon. Reading Location: [id number] Physical Exam Const alert, oriented x3, no apparent distress, average body habitus and well nourished; Negative for healthy appearing Constitutional Narrative: Middle-aged, white female, lying in bed HEENT normocephalic, head/scalp atraumatic and moist oral mucous membranes Resp normal respiratory effort, no retractions, no use of accessory muscles and clearto auscultation bilaterally Auscultation: wheezes expiratory wheezes, right lower, right upper and anterior;Negative for rales or rhonchi Cardio regular rate, regular rhythm, S1 normal heart sound, S2 normal heart sound, no murmurs, no rub and no gallops GI normal to inspection, nondistended, normoactive bowel sounds, soft to palpation and non-tender GI Narrative: Tenderness in the right flank greater than left flank to very light palpation Extremity no clubbing, cyanosis or edema Neuro oriented x3, moves all extremities and no focal motor deficits Speech: speech normal Psych Psych Narrative: Affect is slightly flat but appropriate for her currently clinical condition, eye contact is good patient interacts appropriately Assessment & Plan Assessment/Plan (1) Desire for detoxification: (2) Polysubstance abuse: (3) Opiate withdrawal: PLAN: Plan Acute opiate withdrawal - Continue buprenorphine taper - Toxicology screen was positive for cannabinoids, cocaine, and fentanyl - Continue supportive medications for symptom management - [facility] is following and plan is for residential treatment for 30 days after discharge anticipate discharge in the next 24 to 48 hours depending on symptoms -[facility] in [place] hopefully tomorrow Polysubstance abuse - Recommend cessation of all substances Flank Pain - CT neg for any pyelonephritis or acute kidney issue but does show some constipation - UA unremarkable and cultures pending - IV Toradol for pain relief Constipation - CT of the abdomen pelvis showed significant constipation with large stool burden - Start MiraLAX 17 g twice daily Asthma - Continue as needed aerosols - Wheezing has resolved Tobacco abuse - Recommend cessation - Continue nicotine patch DVT prophylaxis - Low risk - Encourage frequent - Full code ambulation CODE STATUS - Full code Charges/Coding Visit Charges Inpatient E&M: 17610 Subs Hosp L2 05/21/25 1346 <Electronically signed by Ivonne Sales DO> Cosigner Signature (if applicable): CC: ~ Signed [facility] Work Phone: 1(324) 955-575007-29-2025 Progress note [facility] Medical Records Department [address] [place] [address] Progress Note - Hospitalist 05/21/25 1315 MR#: [id number] Acct: [id number] Name: CARINE BARBA Rep #:[id number] : 1990 35 From: Ivonne Sales DO PCP: Care Physician,No Primary Status :ADM IN Location: [facility] CF019-5 Reason for Visit Chief Complaint: Requesting treatment for opiate withdrawal Subjective Subjective Patient states she is feeling better with regards to her opiate detox. Still having some headache and anxiety. Also complaining of bilateral flank pain thatstarted in the right side. States she gets frequent urinary tract infections. Denies any dysuria at this time. We did go ahead and get a CT of her abdomen pelvis that ended up being unremarkable for any acute findings in her kidneys. It does show significant constipation and these results were discussed with the patient. I did discuss with her the UA was unremarkable so we will wait for theurine culture to come back since she is asymptomatic with regards to actual urinary symptoms. Toradol was ordered for pain. Objective Data Objective Data Vital Signs: Vital Signs Temp Pulse Resp BP Pulse Ox O2 Del Method 97.7 F L 82 16 94/62 97 Room Air 05/21/25 08:39 05/21/25 08:39 05/21/25 08:39 05/21/25 08:39 05/21/25 08:39 05/21/25 13:13 Oxygen Delivery Method Room Air Weight: 71 kg Body Mass Index (BMI) 24.5 Intake & Output: Intake and Output for Last 24 Hours 05/19/25 05/20/25 05/21/25 23:59 23:59 23:59 Intake Total 800 / 800 Balance 800 / 800 Lab / Micro Data 05/18/25 18:40 05/18/25 18:40 Labs: Laboratory Results - last 24 hr 05/21/25 09:00: Urine Color Yellow, Urine Clarity Sl. Cloudy, Urine pH 7.0, Ur Specific Daykin 1.015, Urine Protein 15 H, Urine Glucose (UA) Normal, Urine Ketones Negative, Urine Occult Blood 10 H, Urine Nitrite Negative, Urine Bilirubin Negative, Urine Urobilinogen Normal, Ur Leukocyte Esterase Negative, Urine RBC 0-5 SEEN, Urine WBC 0 SEEN, Ur Squamous Epith Cells 0-5 SEEN, Urine Bacteria 0 SEEN, Urine Mucus 0 SEEN Radiography Diagnostic Testing: Radiology Impression Abdomen/Pelvis CT 05/21/25 08:55 IMPRESSION: Mild hepatomegaly. Small right ovarian cyst. IUD seen within the uterus. Large amount of fecal material is seen in the colon. Reading Location: [facility] Physical Exam Const alert, oriented x3, no apparent distress, average body habitus and well nourished; Negative for healthy appearing Constitutional Narrative: Middle-aged, white female, lying in bed HEENT normocephalic, head/scalp atraumatic and moist oral mucous membranes Resp normal respiratory effort, no retractions, no use of accessory muscles and clearto auscultation bilaterally Auscultation: wheezes expiratory wheezes, right lower, right upper and anterior;Negative for rales or rhonchi Cardio regular rate, regular rhythm, S1 normal heart sound, S2 normal heart sound, no murmurs, no rub and no gallops GI normal to inspection, nondistended, normoactive bowel sounds, soft to palpation and non-tender GI Narrative: Tenderness in the right flank greater than left flank to very light palpation Extremity no clubbing, cyanosis or edema Neuro oriented x3, moves all extremities and no focal motor deficits Speech: speech normal Psych Psych Narrative: Affect is slightly flat but appropriate for her currently clinical condition, eye contact is good patient interacts appropriately Assessment & Plan Assessment/Plan (1) Desire for detoxification: (2) Polysubstance abuse: (3) Opiate withdrawal: PLAN: Plan Acute opiate withdrawal - Continue buprenorphine taper - Toxicology screen was positive for cannabinoids, cocaine, and fentanyl - Continue supportive medications for symptom management - [facility] is following and plan is for residential treatment for 30 days after discharge anticipate discharge in the next 24 to 48 hours depending on symptoms -[facility] in [place] hopefully tomorrow Polysubstance abuse - Recommend cessation of all substances Flank Pain - CT neg for any pyelonephritis or acute kidney issue but does show some constipation - UA unremarkable and cultures pending - IV Toradol for pain relief Constipation - CT of the abdomen pelvis showed significant constipation with large stool burden - Start MiraLAX 17 g twice daily Asthma - Continue as needed aerosols - Wheezing has resolved Tobacco abuse - Recommend cessation - Continue nicotine patch DVT prophylaxis - Low risk - Encourage frequent - Full code ambulation CODE STATUS - Full code Charges/Coding Visit Charges Inpatient E&M: 31629 Subs Hosp L2 05/21/25 1344 Cosigner Signature (if applicable): CC: ~ Signed [facility]07-29-2025 Radiology Diagnostic study note [facility] [address] [place], [place] [id number] Abdomen/Pelvis W IV Cont ONLY MR#: [id number] Acct: [id number] Name: CARINE BARBA Rep #: [id number] : 1990 F 35 From: Jus Schulz MD PCP: Care Physician,No Primary Status: ADM IN Study:Abdomen/Pelvis W IV Cont ONLY Date of E xam: 05/21/25 Exam# [id number] Ordering Dr: Leisa Sales DO PROCEDURE: ABDOMEN/PELVIS W IV CONT ONLY 05/21/2025 REASON FOR EXAM: PYELO TECHNIQUE: ABDOMEN/PELVIS W IV CONT ONLY Coronal and Sagittal reconstruction series were provided. CONTRAST: Isovue-300 VOLUME: 100 mL One or more dose reduction techniques were used (e.g., Automated exposure control, adjustment of the mA and/or kV according to patient size, use of iterative reconstruction technique. RADIATION DOSE SUMMARY: CTDlvol: 10.6 mGy DLP: 536.51 mGycm COMPARISON: None FINDINGS: Lung bases: Lung bases are clear. Bilateral breast prostheses. Liver: Mild hepatomegaly. Gallbladder: Unremarkable Spleen: Normal size. Pancreas: Normal size without evidence of mass surrounding inflammation or ductal dilation. Adrenals: Unremarkable Kidneys: Normal renal sizes. No hydronephrosis. Bladder: Unremarkable Reproductive Organs: There is a 2.1 cm cyst in the right ovary. IUD is seen within the uterus. Bowel: Large amount of fecal material is seen in the colon. Appendix: Unremarkable Lymph nodes: Unremarkable Vasculature: Unremarkable Peritoneum / Retroperitoneum: Unremarkable Bones: Unremarkable CT/Abdomen/Pelvis W IV Cont ONLY IMPRESSION: Mild hepatomegaly. Small right ovarian cyst. IUD seen within the uterus. Large amount of fecal material is seen in the colon. Reading Location: [id number] CC: Dr. Ivonne Sales, DO; No Primary Care Physician ~ Mcat Instructor: Signed [facility]07-28-2025 Progress note Author Ivonne Sales [facility] Note Date/Time May 20, 2025 12:1 9pm [facility] Medical Records Department [address] [place] [address] Progress Note - Hospitalist 05/20/25 1213 MR#: [id number] Acct: [id number] Name: CARINE BARBA Rep #:[id number] : 1990 35 From: Ivonne Sales DO PCP: Care Physician,No Primary Status :ADM IN Location: [facility] [id number] Reason for Visit Chief Complaint: Requesting treatment for opiate withdrawal Subjective Subjective Patient states she still is having pretty significant symptoms related to her withdrawal. Complains that she is generally not feeling well. Has been on buprenorphine for 5 doses now. Plan is for 30-day residential treatment at discharge. Objective Data Objective Data Vital Signs: Vital Signs Temp Pulse Resp BP Pulse Ox O2 Del Method 98.4 F 88 16 109/58 L 97 Room Air 05/20/25 08:51 05/20/25 08:51 05/20/25 08:51 05/20/25 08:51 05/20/25 08:51 05/20/25 08:51 Oxygen Delivery Method Room Air Weight: 71 kg Body Mass Index (BMI) 24.5 Intake & Output: Intake and Output for Last 24 Hours 05/18/25 05/19/25 05/20/25 23:59 23:59 23:59 Intake Total 800 / 800 Balance 800 / 800 Lab / Micro Data 05/18/25 18:40 05/18/25 18:40 Physical Exam Const alert, oriented x3, no apparent distress, average body habitus and well nourished; Negative for healthy appearing Constitutional Narrative: Middle-aged, white female, lying in right side-lying, appears if she is not feeling well but does not appear toxic, interacts appropriately Orientation / Consciousness: Negative for confused HEENT head/scalp atraumatic and moist oral mucous membranes Head and Scalp: normocephalic Neuro oriented x3, moves all extremities and no focal motor deficits Psych Psych Narrative: Affect is slightly flat but appropriate for her currently clinical condition, eye contact is good patient interacts appropriately Assessment & Plan Assessment/Plan (1) Desire for detoxification: (2) Polysubstance abuse: (3) Opiate withdrawal: PLAN: Plan Acute opiate withdrawal - Continue buprenorphine taper - Toxicology screen was positive for cannabinoids, cocaine, and fentanyl - Continue supportive medications for symptom management - When ED is following and plan is for residential treatment for 30 days after discharge anticipate discharge in the next 24 to 48 hours depending on symptoms Polysubstance abuse - Recommend cessation of all substances Asthma - Continue as needed aerosols - Wheezing has resolved Tobacco abuse - Recommend cessation - Continue nicotine patch DVT prophylaxis - Low risk - Encourage frequent - Full code ambulation CODE STATUS - Full code Charges/Coding Visit Charges Inpatient E&M: 04123 Subs Hosp L1 05/20/25 1219 <Electronically signed by Ivonne Sales DO> Cosigner Signature (if applicable): CC: ~ Signed [facility] Work Phone: 1(482) 496-207007-28-2025 Progress note [facility] Medical Records Department [address] [place] [address] Progress Note - Hospitalist 05/20/25 1213 MR#: [id number] Acct: [id number] Name: CARINE BARBA Rep #:[id number] : 1990 35 From: Ivonne Sales DO PCP: Care Physician,No Primary Status :ADM IN Location: [place] [address] Reason for Visit Chief Complaint: Requesting treatment for opiate withdrawal Subjective Subjective Patient states she still is having pretty significant symptoms related to her withdrawal. Complainsthat she is generally not feeling well. Has been on buprenorphine for 5 doses now. Plan is for 30-day residential treatment at discharge. Objective Data Objective Data Vital Signs: Vital Signs Temp Pulse Resp BP Pulse Ox O2 Del Method 98.4 F 88 16 109/58 L 97 Room Air 05/20/25 08:51 05/20/25 08:51 05/20/25 08:51 05/20/25 08:51 05/20/25 08:51 05/20/25 08:51 Oxygen Delivery Method Room Air Weight: 71 kg Body Mass Index (BMI) 24.5 Intake & Output: Intake and Output for Last 24 Hours 05/18/25 05/19/25 05/20/25 23:59 23:59 23:59 Intake Total 800 / 800 Balance 800 / 800 Lab / Micro Data 05/18/25 18:40 05/18/25 18:40 Physical Exam Const alert, oriented x3, no apparent distress, average body habitus and well nourished; Negative for healthy appearing Constitutional Narrative: Middle-aged, white female, lying in right side-lying, appears if she is not feeling well but does not appear toxic, interacts appropriately Orientation / Consciousness: Negative for confused HEENT head/scalp atraumatic and moist oral mucous membranes Head and Scalp: normocephalic Neuro oriented x3, moves all extremities and no focal motor deficits Psych Psych Narrative: Affect is slightly flat but appropriate for her currently clinical condition, eye contact is good patient interacts appropriately Assessment & Plan Assessment/Plan (1) Desire for detoxification: (2) Polysubstance abuse: (3) Opiate withdrawal: PLAN: Plan Acute opiate withdrawal - Continue buprenorphine taper - Toxicology screen was positive for cannabinoids, cocaine, and fentanyl - Continue supportive medications for symptom management - When ED is following and plan is for residential treatment for 30 days after discharge anticipatedischarge in the next 24 to 48 hours depending on symptoms Polysubstance abuse - Recommend cessation of all substances Asthma - Continue as needed aerosols - Wheezing has resolved Tobacco abuse - Recommend cessation - Continue nicotine patch DVT prophylaxis - Low risk - Encourage frequent - Full code ambulation CODE STATUS - Full code Charges/Coding Visit Charges Inpatient E&M: 31781 Subs Hosp L1 05/20/25 1219 Cosigner Signature (if applicable): CC: ~ Signed [facility]07-27-2025 Progress note Author Ruperto Lee [facility] Note Date/Time May 19, 2025 4:49 pm [facility] Medical Records Department [address] [place] [address] Progress Note - Hospitalist 05/19/25 1644 MR#: [id number] Acct: [id number] Name: CARINE BARBA Rep #:[id number] : 1990 35 From: Ruperto Lee DO PCP: Care Physician,No Primary Status :ADM IN Location: [address] Reason for Visit Chief Complaint: Requesting treatment for opiate withdrawal Subjective Subjective Today, she complains of little bit of anxiety and she would like something more for sleep at night. I raised up her dose of trazodone to 150 mg at bedtime. Patient was seen by addiction social service assistant today. Objective Data Objective Data Vital Signs: Vital Signs Temp Pulse Resp BP Pulse Ox O2 Del Method 98 F 93 18 114/68 98 Room Air 05/19/25 16:17 05/19/25 16:17 05/19/25 16:17 05/19/25 16:17 05/19/25 16:17 05/19/25 16:17 Oxygen Delivery Method Room Air Weight: 71 kg Body Mass Index (BMI) 24.5 Intake & Output: Intake and Output for Last 24 Hours 05/17/25 05/18/25 05/19/25 23:59 23:59 23:59 Intake Total 400 / 400 Balance 400 / 400 Lab / Micro Data 05/18/25 18:40 05/18/25 18:40 Labs: Laboratory Results - last 24 hr 05/18/25 18:40: WBC 10.3, RBC 4.20, Hgb 13.9, Hct 41.1, MCV 97.9, MCH 33.1 H, MCHC 33.8, RDW Std Deviation 46.9 H, RDW Coeff of Emilia 13.0, Plt Count 257, MPV 9.6, Immature Gran % (Auto) 0.200, Neut % (Auto) 65.2, Lymph % (Auto) 25.0, Ocean% (Auto) 5.7, Eos % (Auto) 3.5, Baso % (Auto) 0.4, Absolute Neuts (auto) 6.7, Absolute Lymphs (auto) 2.58, Nucleated RBC % 0, Sodium 140, Potassium 3.6, Chloride 104, Carbon Dioxide 25.2, Anion Gap 11, BUN 12, Creatinine 0.68 L, Estim Creat Clear Calc 113.36, Est GFR (MDRD) Non-Af 117, BUN/Creatinine Ratio 17.7, Glucose 109 H, Calcium 8.6, Serum , Qual NEGATIVE, Ethyl Alcohol < 10.1 05/18/25 18:45: Urine Opiates Screen NEGATIVE, U Buprenorphine Qual NEGATIVE, UrOxycodone Screen NEGATIVE, Urine Methadone Screen NEGATIVE, Urine Fentanyl Screen PRESUMPTIVE POSITIVE, Ur Barbiturates Screen NEGATIVE, Ur Phencyclidine Scrn NEGATIVE, Ur Amphetamines Screen NEGATIVE, U Benzodiazepines Scrn NEGATIVE,Urine Cocaine Screen PRESUMPTIVE POSITIVE, U Cannabinoids Screen PRESUMPTIVE POSITIVE Physical Exam Const alert, oriented x3, no apparent distress, average body habitus and healthy appearing General Appearance: cooperative, well kempt and well developed Orientation / Consciousness: awake, oriented to person, oriented to place and oriented to time HEENT normocephalic, head/scalp atraumatic and moist oral mucous membranes Eyes PERRL, EOMs intact bilaterally and conjunctivae normal Neck supple, no JVD, thyroid normal and no carotid bruits General: trachea midline Resp normal respiratory effort, no retractions and no use of accessory muscles Auscultation: wheezes expiratory wheezes, right lower, right upper and anterior;Negative for rales or rhonchi Cardio regular rate, regular rhythm, S1 normal heart sound, S2 normal heart sound, no murmurs, no rub and no gallops GI normal to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 Instructions * Instructions* Nimo Hughes MD - 04/29/2020 Return to the ER immediately if breathing worsens in any way. * Attachments The following attachments cannot be sent through Care Everywhere. * Asthma: General Info (Uruguayan) * Nebulizers: General Info (Uruguayan) documented in this encounter* Attachments The following attachments cannot be sent through Care Everywhere. * Asthma Triggers: General Info (Uruguayan) documented in this encounter* Attachments The following attachments cannot be sent through Care Everywhere. * Asthma: General Info (Uruguayan) documented in this encounter Assessments Diagnosis Moderate persistent asthma with exacerbation Unspecified asthma, with exacerbation Diagnosis Exacerbation of asthma, unspecified asthma severity, unspecified whether persistent Chief Complaint and Reason for Visit Chief Complaint CP Chief Complaint Admit Date OPIATE WITHDRAWL May 18, 2025 7:36 pm fentanyl detox May 18, 2025 7:45 pm Reason for Visit Admit Date Opiate withdrawal May 18, 2025 7:36 pm Chief Complaint Admit Date OPIATE WITHDRAWL May 18, 2025 7:36 pm fentanyl detox May 18, 2025 7:45 pm OPIATE WITHDRAWL May 19, 2025 4:44 pm OPIATE WITHDRAWL May 20, 2025 12:1 3pm OPIATE WITHDRAWL May 21, 2025 1:15 pm OPIATE WITHDRAWL May 22, 2025 10:4 9am Reason for Visit Admit Date Desire for detoxification May 18 7:36pm Opiate withdrawal May 18, 2025 7:36 pm Polysubstance abuse May 18, 2025 7:36 pm Chief Complaint Admit Date OPIATE WITHDRAWL May 18, 2025 7:36 pm fentanyl detox May 18, 2025 7:45 pm OPIATE WITHDRAWL May 19, 2025 4:44 pm OPIATE WITHDRAWL May 20, 2025 12:1 3pm OPIATE WITHDRAWL May 21, 2025 1:15 pm OPIATE WITHDRAWL May 22, 2025 10:4 9am SWELLING June 13, 2025 12 :20pm Additional Source Comments INFORMATION SOURCE (unrecogn ized section and content) DATE CREATED AUTHOR 04/14/2018 [facility] ([place]) DATE CREATED AUTHOR AUTHOR'S ORGANIZ ATION 04/19/2018 [facility] DATE CREATED AUTHOR AUTHOR'S ORGANIZ ATION 07/07/2020 [facility] DATE CREATED AUTHOR AUTHOR'S ORGANIZ ATION 10/22/2024 [facility] DATE CREATED AUTHOR AUTHOR'S ORGANIZ ATION 06/04/2025 [facility] DATE CREATED AUTHOR AUTHOR'S ORGANIZ ATION 06/19/2025 [facility] DATE CREATED AUTHOR AUTHOR'S ORGANIZ ATION 06/21/2025 [facility] Reason for Visit (unrecogniz ed section and content) Reason Comments Shortness of Breath Specialty Diagnoses / Procedures Referred By Nayely reyes Referred To Contact Diagnoses Severe persistent asthma with exacerbation Procedures j45.51 Perez Allison MD [address] [place] [address] Phone: tel: fax: [facility] [address] [place] [phone] Phone: tel: Referral ID Status Reason Start Date Expiration Date Visits Re quested Visits Authorized [id number] 1 Reason Comments Wheezing Reason Comments Shortness of Breath progressive x3 days, wose today Reason Onset Date Comments Hospital Follow-up 04/16/2025 Reason Onset Date Comments Appointment 05/28/2025 Reason Comments Drug / Alcohol Assessment Pt referred to IOP post hospital discharge Reason Comments Asthma Reason Comments Addiction Problem Goals (unrecognized section and content) Goals may be documented in a n alternate sectionGoals may be documented in an alternate section No data available for this section Scheduled Active and Recently Administ ered [...] On Tue01/08/25 at 0205, For 1 dose 0209 (Given - Provid er: Cynthia Tran RN) Scheduled Medication Order 04/13/2025 04/14/2025 04/15/2025 doxycycline (Vibramycin) 100 mg in sodium chloride 0.9 % 100 mL IVPB 100 mg, IntraVENous, at 100 mL/hr, Administer over 60 Minutes, Every 12 hours, First dose on Tue04/15/25 at 0200, Mini-Bag Plus bag, Suspected Indication (Select all that apply): Pneumonia (CAP) 0231 (New Bag - Prov ider: Elena Schwartz RN)0350 (Stopped - Provider: Elena Schwartz RN)1304 (New Bag - Provider: Giancarlo Romero RN)1309 (Stopped - Provider: Giancarlo Romero RN - Comment: after 5 minutes of infusing patient refused antibiotic. educated importance of antibiotic. dr allison notified)1428 (Canceled Entry - Provider: Giancarlo Romero RN) [...] 1 dose 2010 (Given - Provider: Gurmeet Teague RN) ipratropium (Atrovent) 0.02 % nebulizer solution 0.5 [...] 1ml NS. 2048 (Given - Provider: Gurmeet Teague RN) LORazepam (Ativan) injection 1 mg (COMPLETED) 1 mg, IntraVENous, Once, On Tue04/14/25 at 2215, For 1 dose, For IV doses dilute dose with 1ml NS. 2255 (Given - Provider: Gurmeet Teague RN) LORazepam (Ativan) tablet 0.5 mg (COMPLETED) 0.5 mg, Oral, Once, On Tue04/15/25 at 0100, For 1 dose 0057 (Given - Provid er: Elena Schwartz RN) magnesium sulfate IVPB premix 2,000 mg (COMPLETED) 2,000 mg, IntraVENous, at 150 mL/hr, Administer over 20 Minutes, Once, On Tue04/14/25 at 1935, For 1 dose, Recommended infusion rate not to exceed 1,000 mg (milligrams) per hour. 193 (New Bag - Provider: Gurmeet Teague RN)2049 [...] On Tue04/14/25 at 1935, For 1 dose 193 (Given - Provider: Gurmeet Teague, DAPHNE) mometasone-formoterol (Dulera 200) 200-5 MCG/ACT inhaler 2 [...] Elena Schwartz RN)1158 (Given - Provider: Giancarlo Romeor RN) guaiFENesin (Robitussin) 100 MG/5ML liquid 200 [...] 0232 (Given - Provid er: Elena Schwartz RN)0726 (Given - Provider: Elena Schwartz RN) ondansetron (Zofran) injection 4 mg(Linked Group 2) 4 mg, IntraVENous, Every 6 hours PRN, nausea, vomiting, Starting on Tue04/15/25 at 0132, 1st Line. Give IV if patient is unable to take orally. If inadequate response within 60 minutes, proceed to next-line agent or contact provider if no further options ordered. 0726 (Given - Provid er: Elena Schwartz [...] from blister pack until just before administering. 0726 (See Alternativ e - Provider: Elena Schwartz [...] contact provider if no further options ordered. Scheduled Medication Order 06/16/2025 06/17/2025 06/18/2025 albuterol (2.5 MG/3ML) 0.083% nebulizer solution 2.5 mg (COMPLETED) 2.5 mg, Nebulization, Once, On Tue06/18/25 at 0045, For 1 dose 010 (Given - Provid er: Gurmeet Teague RN) ipratropium-albuterol (Duo-Neb) 0.5-2.5 mg/3 mL nebulizer solution 3 mL (COMPLETED) 3 mL, Nebulization, Once, On Tue06/17/25 at 2155, For 1 dose 223 (Given - Provider: Gurmeet Teague, DAPHNE) magnesium sulfate IVPB premix 2,000 mg (COMPLETED) 2,000 mg, IntraVENous, at 150 mL/hr, Administer over 20 Minutes, Once, On Tue06/17/25 at 2155, For 1 dose, Recommended infusion rate not to exceed 1,000 mg (milligrams) per hour. 2205 (New Bag - Provider: Gurmeet Teague RN)2340 (Stopped - Provider: Keena Reed RN) methylPREDNISolone sodium succinate (PF) (SOLU-Medrol) injection 125 mg (COMPLETED) 125 mg, IntraVENous, Once, On Tue06/17/25 at 2155, For 1 dose 220 (Given - Provider: Gurmeet Teague, DAPHNE) midazolam (Versed) injection 1 mg (COMPLETED) 1 mg, IntraVENous, Once, On Tue06/17/25 at 2305, For 1 dose 2310 (Given - Provider: Gurmeet Teague, RN) No Frequency Medication Order 06/16/2025 06/17/2025 06/18/2025 ipratropium-albuterol (Duo-Neb) 0.5-2.5 mg/3 mL nebulizer solution - Pyxis ADS Override Pull (COMPLETED) Starting on Tue06/17/25 at 2143, For 1 dose, Gurmeet Teague: cabinet override 2240 (Given - Provider: Lori Teague, RN) ipratropium-albuterol (Duo-Neb) 0.5-2.5 mg/3 mL nebulizer solution - Pyxis ADS Override Pull (COMPLETED) Starting on Tue06/17/25 at 2149, For 1 dose, Gurmeet Teague: cabinet override 2239 (Given - Provider: Lori Teague, RN) Care Teams (unrecognized sec tion and content) Biomedical Analytical Scientist Relationship Specialty Start Date End Date Aishwarya Ivory MD [address] [place] [address] PCP - General 01/22/14 Biomedical Analytical Scientist Relationship Specialty Start Date End Date Aishwarya Ivory MD [address] [place] [address] PCP - General 01/22/14 Biomedical Analytical Scientist Relationship Specialty Start Date End Date Aishwarya Ivory MD [address] [place] [address] PCP - General 01/22/14 Biomedical Analytical Scientist Relationship Specialty Start Date End Date Aishwarya Ivory MD [address] [place] [address] PCP - General 01/22/14 Team Status: Active Member Role/Relationship Status Dates No Primary Care Physician Primary Care Provider Active Team Status: Active Member Role/Relationship Status Dates No Primary Care Physician Primary Care Provider Active Start: May 18, 2025 Dr. Jeff Noe , Emergency Provider Active Start: May 18, 2025 Dr. Trae Brooks DO Admit Provider Active Star t: May 18, 2025 Dr. Trae Jopperi , DO Attending Provider Active Start: May 18, 2025 Team Status: Active Member Role/Relationship Status Dates No Primary Care Physician Primary Care Provider Active Start: May 18, 2025 Dr. Jeff Noe , DO Emergency Provider Active Start: May 18, 2025 Dr. Trae Brooks , DO Attending Provider Active Start: May 18, 2025 Team Status: Inactive Member Role/Relationship Status Dates No Primary Care Physician Primary Care Provider Active Start: May 18, 2025 End: May 22, 2025 Dr. Jeff Noe , DO Emergency Provider Active Start: May 18, 2025 End: May 22, 2025 Dr. Trae Brooks , DO Admit Provider Active Star t: May 18, 2025 End: May 22, 2025 Dr. Trae Brooks , DO Other Provider Active Star t: May 18, 2025 End: May 22, 2025 Dr. Ivonne Sales , DO Attending Provider Active S tart: May 18, 2025 End: May 22, 2025 Dr. Ruperto Lee , DO Other Provider Active S tart: May 18, 2025 End: May 22, 2025 Team Status: Active Member Role/Relationship Status Dates No Primary Care Physician Primary Care Provider Active Start: May 19, 2025 Dr. Jeff Noe , DO Emergency Provider Active Start: May 19, 2025 Dr. Trae Brooks , DO Admit Provider Active Star t: May 19, 2025 Dr. Trae Brooks , DO Other Provider Active Star t: May 19, 2025 Dr. Ruperto Lee , DO Attending Provider Active Start: May 19, 2025 Dr. Ruperto Lee , DO Other Provider Active S tart: May 19, 2025 Team Status: Active Member Role/Relationship Status Dates No Primary Care Physician Primary Care Provider Active Start: May 20, 2025 Dr. Jeff Noe , DO Emergency Provider Active Start: May 20, 2025 Dr. Trae Brooks , DO Admit Provider Active Star t: May 20, 2025 Dr. Trae Brooks , DO Other Provider Active Star t: May 20, 2025 Dr. Ivonne Sales , DO Attending Provider Active S tart: May 20, 2025 Dr. Ivonne Sales , DO Other Provider Active Start : May 20, 2025 Dr. Ruperto Lee , DO Other Provider Active S tart: May 20, 2025 Team Status: Active Member Role/Relationship Status Dates No Primary Care Physician Primary Care Provider Active Start: May 21, 2025 Dr. Jeff Noe , DO Emergency Provider Active Start: May 21, 2025 Dr. Trae Brooks , DO Admit Provider Active Star t: May 21, 2025 Dr. Trae Brooks , DO Other Provider Active Star t: May 21, 2025 Dr. Ivonne Sales , DO Attending Provider Active S tart: May 21, 2025 Dr. Ivonne Sales , DO Other Provider Active Start : May 21, 2025 Dr. Ruperto Lee , DO Other Provider Active S tart: May 21, 2025 Team Status: Active Member Role/Relationship Status Dates No Primary Care Physician Primary Care Provider Active Start: May 22, 2025 Dr. Jeff Noe , DO Emergency Provider Active Start: May 22, 2025 Dr. Trae Brooks , DO Admit Provider Active Star t: May 22, 2025 Dr. Trae Brooks , DO Other Provider Active Star t: May 22, 2025 Dr. Ivonne Sales , DO Attending Provider Active S tart: May 22, 2025 Dr. Ivonne Sales , DO Other Provider Active Start : May 22, 2025 Dr. Ruperto Lee , DO Other Provider Active S tart: May 22, 2025 Biomedical Analytical Scientist Relationship Specialty Start Date End Date Aishwarya Ivory MD [address] [place] [address] PCP - General 01/22/14 Biomedical Analytical Scientist Relationship Specialty Start Date End Date Aishwarya Ivory MD [id number] [place], [place] [id number] PCP - General 01/22/14 Biomedical Analytical Scientist Relationship Specialty Start Date End Date Aishwarya Ivory MD [address] [place], [place] [id number] PCP - General 01/22/14 Team Status: Inactive Member Role/Relationship Status Dates No Primary Care Physician Primary Care Provider Active Start: June 13, 2025 End: June 13, 2025 Dr. Thang Davenport MD Emergency Provider Active Start: June 13, 2025 End: June 13, 2025 Biomedical Analytical Scientist Relationship Specialty Start Date End Date Aishwarya Ivory MD [id number] [place], [place] [id number] PCP - General 01/22/14 Biomedical Analytical Scientist Relationship Specialty Start Date End Date Aishwarya Ivory MD [id number] [place] [address] PCP - General 01/22/14 FOR RECORDS PERTAINING [...] BE BASED ON THE PRIMARY CLINICAL RECORDS. [employer] [facility]. provides no warranty or guarantee of the accuracy or completeness of information in this document.
[2025-06-23 10:49] LABS: D-Dimer Quantitative (DVT/PE) 0.27 FEU/ug/m (0.27-0.49)
[2025-06-23 10:53] LABS: Anion Gap 13 (5-15); BUN 9 mg/dL (4-19); BUN/Creat Ratio 12.6 RATIO (10-20); Calcium,Total 9.1 mg/dL (7.6-11.0); Carbon Dioxide 24.4 mmol/L (21.0-32.0); Chloride 97 mmol/L (98-108); Glucose 124 mg/dL (70-99); Potassium 4.2 mmol/L (3.3-5.1); Pro- Brain NATRIURETIC PEPTIDE 312 pg/mL (<=450); Troponin T High Sensitivity 11 ng/L (<=14)
[2025-06-23] MEDS: levoFLOXacin IV 750 MG/150 ML BAG 100 MG IV (11:40)
--- NOTE | 2025-06-23 11:43 | CM.ED ---
Social Work Date of referral: 06/23/25 Reason for referral: No primary care physician (PCP) on file Referred by: Social Work identification Patient provided consent to social work visit. Medical Sociologist provided patient with a written handout on the [facility] which patient accepted and expressed appreciation for. Nubia Del Toro, CAMP DINING ROOM ATTENDANT, AUTOMATION/CONTROLS MANAGER
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
[2025-06-23 12:52] LABS: Troponin T High Sens 2 HR < 6 ng/L (<=14)
--- OUTSIDE RECORDS SUMMARY | 2025-06-23 13:15 | XMS RPT_ITS | CCD ---
Author Organization [facility] Team Providers Care Copyman Name Role Phone WESLEY BELTRAN Unavailable Unavailable PHYSICIAN, NONE Unavailable Unavailable SILVIO ALCALA Unavailable Unavailable PHYSICIAN, NONE Unavailable Unavailable WESLEY BELTRAN Unavailable Unavailable PHYSICIAN, NONE Unavailable Unavailable ALVARO BLACK Unavailable Unavailable PHYSICIAN, NONE Unavailable Unavailable LEXY OZUNA Unavailable Unavailable LEXY OZUNA Unavailable Unavailable NO REFERRING DR Unavailable Unavailable LEXY OZUNA Unavailable Unavailable Aishwarya Ivory Primary Care Provider Mykel TRUJILLO, Aishwarya A Primary Care Provider [...] LORENA SHAH Attending Unavailable Romy'QUAN, [facility] Primary Care Unavailable D'QUAN, [facility] Primary Care Unavailable GIANCARLO BATRES Attending Unavailable Romy'QUAN, [facility] Primary Care Unavailable JOEL SHEPARD Attending Unavailable Romy'QUAN, [facility] Primary Care Unavailable PEREZ ALLISON Attending Unavailable GIANCARLO YI Consulting Unavailable PEREZ ALLISON Admitting Unavailable [facility] Primary Care Unavailable MARU CORTEZ Admitting Unavailable BENI BARNETTY Consulting Unavailable ADOLFO GODDARD Attending Unavailable CRISTIAN MCCRARY Consulting Unavailable LORENA SHAH Attending [facility]available [facility] Primary Care Unavailable Allergies Allergy Classification Reported Allergen(s) Allergy Type Date of Onset Reaction(s) Facility (1 source) acetaminophen / HYDROcodone; Translations: [VICODIN] Drug Allergy [facility] Repository (2 sources) cefadroxil; Translations: [DURICEF] Drug Allergy facial swelling [facility] Repository (20 sources) Cefadroxil; Translations: [CEFADROXIL] Drug Allergy 6 Swelling [facility] Work Phone: (2 sources) Cefadroxil; Translations: [cefadroxil hydrate] Drug Allergy [address] [facility] Repository Medications Current Medications Medication Drug [...] 1245, For 1 dose polyethylene glycol [id number] [id number] mg powder for oral solution (2 sources) [...] so we can get her scheduled. Normal [facility] BLOOD GAS, VENOUS (SWR AND S HC)on 06-18-2025 AMOUNT OF OXYGEN 0 Normal [facility] Comment on above: Performed By: #### L [id number] ####E M Assembler: CALE LEON ([id number])[facility] (SWRLAB)[address] [place] [address] BASE EXCESS (MMOL/L) IN VENOUS BLOOD 1.0 mmol/L Normal -3.0-3.0 [facility] Comment on above: Performed By: #### L [id number] ####E M Assembler: CALE LEON ([id number])[facility] (SWRLAB)[address] [place] [address] [place] CARBON DIOXIDE (MM HG) IN VENOUS BLOOD 46 mm(Hg) Normal 40-55 [facility] Comment on above: Performed By: #### L [id number] ####E M Assembler: CALE LEON ([id number])[facility] (SWRL[facility])[address] [place] [address] [place] CO2 [Moles/Vol] 28.0 mmol/L Normal 24.0-28.0 [facility] Comment on above: Performed By: #### L [id number] ####E M Assembler: CALE LEON ([id number])[facility] (SWRL[facility])[address] [place] [address] [place] HCO3 (Bld) [Moles/Vol] 26.7 mmol/L Normal 23.0-27.0 [facility] Comment on above: Performed By: #### L [id number] ####E M Assembler: CALE LEON ([id number])[facility] (SWRL[facility])[address] [place] [address] OXYGEN (MM HG) IN VENOUS BLOOD 52 mm(Hg) Normal [facility] Comment on above: Performed By: #### L [id number] ####E M Assembler: CALE LEON ([id number])[facility] (SWRL[facility])[address] [place] [address] [place] OXYGEN SATURATION (%) IN VENOUS BLOOD 85.0 % High 60.0-80.0 [facility] Comment on above: Performed By: #### L [id number] ####E M Assembler: CALE LEON ([id number])[facility] (SWRL[facility])[address] [place] [address] [place] pH (Bld) 7.372 [pH] Normal 7.310-7.410 [facility] Comment on above: Performed By: #### L [id number] ####E M Assembler: CALE LEON ([id number])[facility] [place] [facility] ([facility])[address] [place] [address] SOURCE OF OXYGEN None (Room Air) Normal [facility] Comment on above: Performed By: #### L [id number] ####E M Assembler: CALE LEON ([id number])[facility] (RLAB)[address] [place] [address] ED Nursing Noteon 06-18-2025 ED Nursing Note Patient walked to bathroom and back to room with Pulse Oximetry holding 92-94% room air. Patient states she feels better than she did when she arrived to ER. Patient was able too converse while walking without difficulty. Normal [facility] LACTIC ACID WITH REFLEXon Lactate [Moles/Vol] 2.1 mmol/L Normal 0.5-2.2 [facility] Comment on above: Performed By: #### L [id number] #### E M Assembler: CALE LEON ([id number]) [facility] [place] (RLAB) [address] [place] [address] Laboratory - Chemistry and C hemistry - challengeon 06-18-2025 Lactate [Moles/Vol] 2.1 mmol/L 0.5 - 2. 2 mmol/L [facility] CO2 [Moles/Vol] 28 mmol/L 24.0 - 28.0 mmol/L [facility] HCO3 (Bld) [Moles/Vol] 26.7 mmol/L 23.0 - 27.0 mmol/L [facility] Oxygen (Bld) [Partial pressure] 52 mm[Hg] mm(Hg) [facility] pH (Bld) 7.372 [pH] 7.310 - 7.410 [facility] No Panel Informationon 06-18 Interpretation and review of laboratory results Normal [facility] Amount Of Oxygen 0 [facility] BASE EXCESS 1 mmol/L -3.0 - 3.0 mmol/L [facility] Interpretation and review of laboratory results Abnormal [facility] pCO2 46 [facility] Source Of Oxygen None (Room Air) [facility] Vital signson 06-18-2025 Oxygen saturation in Blood 85 % High 60.0 - 80.0 % [facility] BASIC METABOLIC PANELon 05-25 Anion gap [Moles/Vol] 10 mmol/L Normal 3-13 [facility] Comment on above: Performed By: #### L [id number] #### E M Assembler: CALE LEON ([id number]) [facility] ([facility]) [address] [place] [address] [place] Calcium [Mass/Vol] 9.2 mg/dL Normal 8.4-10.2 [facility] Comment on above: Performed By: #### L [id number] #### E M Assembler: CALE LEON ([id number]) [facility] (SWRLAB) [address] [place] [address] [place] Chloride [Moles/Vol] 104 mmol/L Normal 98-107 [facility] Comment on above: Performed By: #### L [id number] #### E M Assembler: CALE LEON ([id number]) [facility] (SWRLAB) [address] [place] [address] [place] CO2 [Moles/Vol] 27 mmol/L Normal 22-29 [facility] Comment on above: Performed By: #### L [id number] #### E M Assembler: CALE LEON ([id number]) [facility] (SWRLAB) [address] [place] [address] [place] Creatinine [Mass/Vol] 1.13 mg/dL High 0.57-1.11 [facility] Comment on above: Performed By: #### L [id number] #### E M Assembler: CALE LEON ([id number]) [facility] (SWRLAB) [address] [place] [address] GLOMERULAR FILTRATION RATE ML/MIN/1.73 SQ M.PREDICTED 65.6 mL/min/1.73m*2 Normal >60.0 [facility] Comment on above: Result Comment: Calc ulation based on the Chronic Kidney Disease Epidemiology Collaboration (CKD-EPI) equation refit without adjustment for race Performed By: #### L [id number] #### E M Assembler: CALE LEON ([id number]) [facility] ([facility]) [address] [place] [address] [place] Glucose [Mass/Vol] 68 mg/dL Low 74-100 [facility] Comment on above: Performed By: #### L [id number] #### E M Assembler: CALE LEON ([id number]) [facility] (SWRL[facility]) [address] Potassium [Moles/Vol] 3.5 mmol/L Normal 3.5-5.1 [facility] Comment on above: Result Comment: [facility] potassium values may be up to 0.5 mmol/L lower than serum values. Performed By: #### L [id number] #### E M Assembler: CALE LEON ([id number]) [facility] (SW[facility]) [address] [place] [address] [place] Sodium [Moles/Vol] 141 mmol/L Normal 136-145 [facility] Comment on above: Performed By: #### L [id number] #### E M Assembler: CALE LEON ([id number]) [facility] ([facility]) [address] [place] [address] [place] Urea nitrogen [Mass/Vol] 27 mg/dL High 8-21 [facility] Comment on above: Performed By: #### L [id number] #### E M Assembler: CALE LEON ([id number]) [facility] (SWRL[facility]) [address] [place] [address] BLOOD GAS, VENOUS (SWR AND S HC)on 06-17-2025 AMOUNT OF OXYGEN 0 Normal [facility] Comment on above: Performed By: #### L [id number] ####E M Assembler: CALE LEON ([id number])[facility] (SWRLAB)[address] [place] [address] [place] BASE EXCESS (MMOL/L) IN VENOUS BLOOD 2.0 mmol/L Normal -3.0-3.0 [facility] Comment on above: Performed By: #### L [id number] ####E M Assembler: CALE LEON ([id number])[facility] (SWRLAB)[address] [place] [address] [place] CARBON DIOXIDE (MM HG) IN VENOUS BLOOD 58 mm(Hg) High 40-55 [facility] Comment on above: Performed By: #### L [id number] ####E M Assembler: CALE LEON ([id number])[facility] (SW[facility])[address] [place] [address] [place] CO2 [Moles/Vol] 30.0 mmol/L High 24.0-28.0 [facility] Comment on above: Performed By: #### L [id number] ####E M Assembler: CALE LEON ([id number])[facility] (SWRLAB)[address] [place] [address] [place] HCO3 (Bld) [Moles/Vol] 28.5 mmol/L High 23.0-27.0 [facility] Comment on above: Performed By: #### L [id number] ####E M Assembler: CALE LEON ([id number])[facility] (SW[facility])[address] [place] [address] [place] OXYGEN (MM HG) IN VENOUS BLOOD 25 mm(Hg) Normal [facility] Comment on above: Performed By: #### L [id number] ####E M Assembler: CALE LEON ([id number])[facility] (SWRL[facility])[address] [place] [address] [place] OXYGEN SATURATION (%) IN VENOUS BLOOD 39.0 % Low 60.0-80.0 [facility] Comment on above: Performed By: #### L [id number] ####E M Assembler: CALE LEON ([id number])[facility] [place] (SWRLAB)[address] [place] [address] pH (Bld) 7.298 [pH] Low 7.310-7.410 [facility] Comment on above: Performed By: #### L [id number] ####E M Assembler: CALE LEON ([id number])[facility] [place] (SWRL[facility])[address] [place] [address] SOURCE OF OXYGEN None (Room Air) [facility] Comment on above: Performed By: #### L [id number] ####E M Assembler: CALE LEON ([id number])[facility] [place] (SWRLAB)[address] [place] [address] Basic metabolic 1998 panelon 06-17-2025 Anion gap [Moles/Vol] 10 mmol/L 3 - 13 mmol/L [facility] Calcium [Mass/Vol] 9.2 mg/dL 8.4 - 10. 2 mg/dL [facility] Chloride [Moles/Vol] 104 mmol/L 98 - 10 7 mmol/L [facility] CO2 [Moles/Vol] 27 mmol/L 22 - 29 mmol/L [facility] Creatinine [Mass/Vol] 1.13 mg/dL High 0.57 - 1.11 mg/dL [facility] GFR/1.73 sq M.predicted (S/P/Bld) [Vol rate/Area] 65.6 mL/min - PINF [facility] Comment on above: Calculation based on the Chronic Kidney Disease Epidemiology Collaboration (CKD-EPI) equation refit without adjustment for race Glucose [Mass/Vol] 68 mg/dL Low 74 - 100 mg/dL [facility] Interpretation and review of laboratory results Abnormal [facility] Potassium [Moles/Vol] 3.5 mmol/L 3.5 - 5.1 mmol/L [facility] Comment on above: Plasma potassium phillip ues may be up to 0.5 mmol/L lower than serum values. Sodium [Moles/Vol] 141 mmol/L 136 - 145 mmol/L [facility] Urea nitrogen [Mass/Vol] 27 mg/dL High 8 - 21 mg/d L [facility] CBC W Auto Differential pane l (Bld)on 06-17-2025 Basophils (Bld) [#/Vol] 0 10*3/uL 0.0 - 0.2 10*3/uL [facility] Basophils/100 WBC (Bld) 0.3 % 0.0 - 2.0 % [facility] Eosinophils (Bld) [#/Vol] 0.3 10*3/uL 0.0 - 0.5 10*3/uL [facility] Eosinophils/100 WBC (Bld) 2.3 % 0.0 - 6.0 % [facility] Erythrocyte distribution width (RBC) [Ratio] 14.1 % 11.5 - 15.0 % [facility] Hematocrit (Bld) [Volume fraction] 37.7 % 35.0 - 47.0 % [facility] Hemoglobin (Bld) [Mass/Vol] 12.7 g/dL 11.7 - 16.0 g/dL [facility] Immature granulocytes (Bld) [#/Vol] 0.1 10*3/uL High NINF - 0.1 10*3/uL [facility] Immature granulocytes/100 WBC (Bld) 0.4 % 0.0 - 2.0 % [facility] Interpretation and review of laboratory results Abnormal [facility] Lymphocytes (Bld) [#/Vol] 1.4 10*3/uL 1.0 - 4.3 10*3/uL [facility] Lymphocytes/100 WBC (Bld) 9.8 % Low 15.0 - 45.0 % [facility] MCH (RBC) [Entitic mass] 33.2 pg 26. 0 - 34.0 pg [facility] MCHC (RBC) [Mass/Vol] 33.7 % 30.5 - 36.0 % [facility] MCV (RBC) [Entitic vol] 98.7 fL 77.0 - 99.0 fL [facility] Monocytes (Bld) [#/Vol] 0.6 10*3/uL 0.0 - 0.9 10*3/uL [facility] Monocytes/100 WBC (Bld) 4.6 % Low 5.0 - 13.0 % [facility] Neutrophils (Bld) [#/Vol] 11.5 10*3/uL High 1.8 - 7.5 10*3/uL [facility] Neutrophils/100 WBC (Bld) 82.6 % High 38.0 - 82.0 % [facility] Nucleated RBC/100 WBC (Bld) [Ratio] 0 % [facility] Platelet mean volume (Bld) [Entitic vol] 9.5 fL 9.0 - 12.7 fL [facility] Comment on above: MPV is a calculated measurement using platelet volume ratio Platelets (Bld) [#/Vol] 287 10*3/uL 140 - 440 10*3/uL [facility] RBC (Bld) [#/Vol] 3.82 10*6/uL 3.80 - 5.2 0 10*6/uL [facility] WBC (Bld) [#/Vol] 13.9 10*3/uL High 3.6 - 10.7 10*3/uL [facility] CBC WITH AUTO DIFFERENTIALon 06-17-2025 Basophils (Bld) [#/Vol] 0.0 10*3/uL Normal 0.0-0.2 [facility] Comment on above: Performed By: #### L [id number] #### E M Assembler: CALE LEON ([id number]) [facility] (SWRL[facility]) [address] [place] [address] [place] Basophils/100 WBC (Bld) 0.3 % Normal 0.0-2.0 [facility] Comment on above: Performed By: #### L [id number] #### E M Assembler: CALE LEON ([id number]) [facility] [place] [facility] (SWRL[facility]) [address] [place] [address] [place] Eosinophils (Bld) [#/Vol] 0.3 10*3/uL Normal 0.0-0.5 [facility] Comment on above: Performed By: #### L [id number] #### E M Assembler: CALE LEON ([id number]) [facility] [place] [facility] (SW[facility]) [address] [place] [address] [place] Eosinophils/100 WBC (Bld) 2.3 % Normal 0.0-6.0 [facility] Comment on above: Performed By: #### L [id number] #### E M Assembler: CALE LEON ([id number]) [facility] (SW[facility]) [address] [place] [address] Erythrocyte distribution width (RBC) [Ratio] 14.1 % Normal 11.5-15.0 [facility] Comment on above: Performed By: #### L [id number] #### E M Assembler: CALE LEON ([id number]) [facility] (SW[facility]) [address] [place] [address] Hematocrit (Bld) [Volume fraction] 37.7 % Normal 35.0-47.0 [facility] Comment on above: Performed By: #### L [id number] #### E M Assembler: CALE LEON ([id number]) [facility] (SW[facility]) [address] [place] [address] Hemoglobin (Bld) [Mass/Vol] 12.7 g/dL Normal 11.7-16.0 [facility] Comment on above: Performed By: #### L [id number] #### E M Assembler: CALE LEON ([id number]) [facility] ([facility]) [address] [place] [address] IMMATURE GRANS % 0.4 % Normal 0.0-2.0 [facility] Comment on above: Performed By: #### L [id number] #### E M Assembler: CALE LEON ([id number]) [facility] ([facility]) [address] [place] [address] IMMATURE GRANS ABSOLUTE 0.1 10*3/uL High <0.1 [facility] Comment on above: Performed By: #### L [id number] #### E M Assembler: CALE LEON ([id number]) [facility] (SWRL[facility]) [address] [place] [address] Lymphocytes (Bld) [#/Vol] 1.4 10*3/uL Normal 1.0-4.3 [facility] Comment on above: Performed By: #### L [id number] #### E M Assembler: CALE LEON ([id number]) [facility] (SW[facility]) [address] [place] [address] Lymphocytes/100 WBC (Bld) 9.8 % Low 15.0-45.0 [facility] Comment on above: Performed By: #### L [id number] #### E M Assembler: CALE LEON ([id number]) [facility] (SW[facility]) [address] [place] [address] MCH (RBC) [Entitic mass] 33.2 pg Normal 26.0-34.0 [facility] Comment on above: Performed By: #### L [id number] #### E M Assembler: CALE LEON ([id number]) [facility] (SWRL[facility]) [address] [place] [address] MCHC 33.7 % Normal 30.5-36.0 [facility] Comment on above: Performed By: #### L [id number] #### E M Assembler: CALE LEON ([id number]) [facility] (SWRL[facility]) [address] [place] [address] MCV (RBC) [Entitic vol] 98.7 fL Normal 77.0-99.0 [facility] Comment on above: Performed By: #### L [id number] #### E M Assembler: CALE LEON ([id number]) [facility] (SWRLAB) [address] [place] [address] Monocytes (Bld) [#/Vol] 0.6 10*3/uL Normal 0.0-0.9 [facility] Comment on above: Performed By: #### L [id number] #### E M Assembler: CALE LEON ([id number]) [facility] (SWRLAB) [address] [place] [address] [place] Monocytes/100 WBC (Bld) 4.6 % Low 5.0-13.0 [facility] Comment on above: Performed By: #### L [id number] #### E M Assembler: CALE LEON ([id number]) [facility] (SW[facility]) [address] [place] [address] NEUTROPHILS ABSOLUTE 11.5 10*3/uL High 1.8-7.5 [facility] Comment on above: Performed By: #### L [id number] #### E M Assembler: CALE LEON ([id number]) [facility] (SWRL[facility]) [address] [place] [address] Neutrophils/100 WBC (Bld) 82.6 % High 38.0-82.0 [facility] Comment on above: Performed By: #### L [id number] #### E M Assembler: CALE LEON ([id number]) [facility] (SWRL[facility]) [address] [place] [address] NRBC 0.0 /100 WBCs Normal 0.0-2.0 [facility] Comment on above: Performed By: #### L [id number] #### E M Assembler: CALE LEON ([id number]) [facility] (SW[facility]) [address] [place] [address] Platelet mean volume (Bld) [Entitic vol] 9.5 fL Normal 9.0-12.7 [facility] Comment on above: Result Comment: MPV is a calculated measurement using platelet volume ratio Performed By: #### L [id number] #### E M Assembler: CALE LEON ([id number]) [facility] (SW[facility]) [address] [place] [address] Platelets (Bld) [#/Vol] 287 10*3/uL Normal 140-440 [facility] Comment on above: Performed By: #### L [id number] #### E M Assembler: CALE LEON ([id number]) [facility] ([facility]) [address] [place] [address] [place] RBC (Bld) [#/Vol] 3.82 10*6/uL Normal 3.80-5.20 [facility] Comment on above: Performed By: #### L [id number] #### E M Assembler: CALE LEON ([id number]) [facility] ([facility]) [address] [place] [address] WBC (Bld) [#/Vol] 13.9 10*3/uL High 3.6-10.7 [facility] Comment on above: Performed By: #### L [id number] #### E M Assembler: CALE LEON ([id number]) [facility] (SWRLAB) [address] [place] [address] COVID-19, Flu A/B, and RSV C omboon 06-17-2025 Interpretation and review of laboratory results Normal [facility] ED Nursing Noteon 06-17-2025 ED Nursing Note Pt. Arrived to ED vi a personal transportation with complaint of asthma exacerbation that began at home approximately 1 hour prior to arrival. Pt. Reports that people in her home have been sick with flu like symptoms. Pt. Reports completing two nebulizing treatments at home without relief. Normal [facility] ED Provider Noteon ED Provider Note [...] 9.5 n (more content not included)... Normal [facility] LACTIC ACID WITH REFLEXon Lactate [Moles/Vol] 2.3 mmol/L High 0.5-2.2 [facility] Comment on above: Performed By: #### L [id number] ####E M Assembler: CALE LEON ([id number])[facility] ([facility])[address] [place] [address] Laboratory - Chemistry and C hemistry - challengeon 06-17-2025 Lactate [Moles/Vol] 2.3 mmol/L High 0.5 - 2. 2 mmol/L [facility] Laboratory - Chemistry and C hemistry - challengeOrdered By: Connor Daily on 06-17-2025 CO2 [Moles/Vol] 30 mmol/L High 24.0 - 28.0 mmol/L [facility] HCO3 (Bld) [Moles/Vol] 28.5 mmol/L High 23.0 - 27.0 mmol/L [facility] Oxygen (Bld) [Partial pressure] 25 mm[Hg] mm(Hg) [facility] pH (Bld) 7.298 [pH] Low 7.310 - 7.410 [facility] Laboratory - Microbiology an d Antimicrobial susceptibilityon 06-17-2025 FLUAV RNA DAJA+probe Ql (Resp) Not detected Not Detected [facility] FLUBV RNA DAJA+probe Ql (Resp) Not detected Not Detected [facility] RSV RNA DAJA+probe Ql (Resp) Not detected Not Detected [facility] SARS-CoV-2 (COVID-19) RNA DAJA+probe Ql (Resp) Not detected Not Detected [facility] alth SARS-CoV-2 (COVID-19) RNA DAJA+probe Ql (Unsp spec) Methodology: real-time, RT-PCR The SARS-CoV-2, Flu A/B, and RSV Combo assay is intended for in vitro diagnostic use under the FDA Emergency Use Authorization (EUA). This test has not been FDA cleared or approved. In compliance with this authorization, please visit www.fda.gov/media/030 363/download or www.fda.gov/media/767 446/download to access the applicable information sheets. [facility] No Panel Informationon 06-17 Interpretation and review of laboratory results Abnormal [facility] No Panel InformationOrdered By: Connor Daily on 06-17-2025 Amount Of Oxygen 0 [facility] BASE EXCESS 2 mmol/L -3.0 - 3.0 mmol/L [facility] Interpretation and review of laboratory results Abnormal [facility] pCO2 58 High [facility] Source Of Oxygen None (Room Air) [facility] Office Visiton 06-17-2025 Follow-up visit [id number] Monica Barba 1990 F Date Provider Department Center 06/17/2025 [id number]-EDERJEPLORENA SHAH [facility] None No family history on file Level of Service:[address]20 [place] OFFICE/OUTPATIENT [facility] 60 MINUTES Reason for Visit and Comments: Addiction Problem [807472] Normal [facility] Progress Noteon 06-17-2025 Progress [...] establish care. Pt was recently admitted into 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 Pt reports that prior to [facility] admission she was chemically detoxed at [facility] and then discharged to a residential program. While at [facility], Pt successfully detoxed with tramadol taper and started on 16mg of buprenorphine and then discharged to residential. Once at residential patient was not provided with any buprenorphine or any other medications that were initially prescribed during her detox at [facility]. Pt then entered into withdrawal and did not sleep for several days causing some hallucinations and prompting admission into [facility] for stabilization. Pt stabilized and restarted on [...] she has remained sober from opioids since [facility] admission. Pt did not volunteer her use of crack/cocaine to this provider. Record review from [facility] shows that the Pt smokes crack [...] 8-2 Mg Tab 12.00 8 An Per [id number] Gen (3025) 06/03/2025 06/03/2025 1 Buprenorphine-Nalox 8-2mg Film 28.00 14 Al Zew [id number] Ohi (3382) 06/03/2025 06/03/2025 1 Gabapentin 300 Mg Capsule 180.00 30 Se Pen [id number] Ohi (3382) 06/17/2025 06/17/2025 1 Buprenorphine-Nalox 8-2mg Film 14.00 7 Al Jaylon [id number] Ohi (776) SUBSTANCE USE HISTORY Brief Substance Use Narrative - as above Current Substance Use - as above Treatment History Inpatient Rehab: yes, x2 but patient cannot provide names. Chem Dep IOP: Denies. Detoxifications: Yes, several over the years. Last two: [facility], [facility] 12 Step Meetings: Denies. Medication Assisted [...] Overall Lenora (more content not included)... Normal [facility] SARS-COV-2, FLU A/B, AND RSV COMBOon [...] compliance with this authorization, please visit www.fda.gov/media/142 556/download or www.fda.gov/media/142 946/download to access the applicable information sheets. Normal [facility] Comment on above: Performed By: #### L [id number] #### E M Assembler: CALE LEON ([phone]) [facility] ([facility]) [address] [place] [address] Vital signsOrdered By: Mark munson Daily on 06-17-2025 Oxygen saturation in Blood 39 % Low 60.0 - 80.0 % [facility] XR Chest Single viewon 06-17 No acute cardiopulmonary process. Report Dictated on Electronically Signed By: Turner Miranda MD Electronically Signed Date/Time: 06/17/2025 10:48 PM EDT [facility] Patient Name: CARINE BARBA : 1990 Exam [...] mediastinal contour. BONES/JOINTS: Unremarkable. No acute fracture. [facility] Turner Miranda MD - 06/17/2025 Patient Name: CARINE BARBA [...] Electronically Signed Date/Time: 06/17/2025 10:48 PM EDT [facility] [employer] Radiology Study observation (narrative) [facility] XR Chest Single viewOrdered By: Turner Miranda on 06-17-2025 [facility] [employer] Work Phone: Absolute lymphocyte countOrd ered By: Lissett Cardoza on 06-13-2025 Lymphocytes Auto (Unsp spec) [#/Vol] 3.34 10*3/uL 0.83-4.[address] [facility] Absolute neutrophil countOrd ered By: Lissett Cardoza on 06-13-2025 Neutrophils (Bld) [#/Vol] 5.6 10*3/uL 2.0-7.[address] [facility] Anion gap in Serum or Plasma Ordered By: Lissett Cardoza on 06-13-2025 Anion gap [Moles/Vol] 9 mmol/L - [facility] Automated lymphocyte count a s percentage of total leukocytesOrdered By: Lissett Cardoza on 06-13-2025 Lymphocytes/100 WBC Auto (Unsp spec) 33.3 % -[address] [facility] BUN/creatinine ratioOrdered By: Lissett Cardoza on 06-13-2025 Urea nitrogen/Creatinine [Mass ratio] 18.5 mg/mg - [facility] Basic Metabolic Profile (BMP )on 06-13-2025 BUN/CRE 18.5 RATIO Normal - [facility] Comment on above: Performed By: #### L 500.2500, L100.0100, L500.3400, L503.7505 ####[facility] [address] [place], [address] Calcium [Mass/Vol] 8.4 mg/dL Normal 7.6-11.0 [facility] Comment on above: Performed By: #### L 500.2500, L100.0100, L500.3400, L503.7505 ####[facility] [address] [place], [address] Chloride [Moles/Vol] 106 mmol/L Normal 98-108 [facility] Comment on above: Performed By: #### L 500.2500, L100.0100, L500.3400, L503.7505 ####[facility] [address] [place], [address] CO2 [Moles/Vol] 26.2 mmol/L Normal 21.0-32.[address] [facility] Comment on above: Performed By: #### L 500.2500, L100.0100, L500.3400, L503.7505 ####[facility] [address] [place], [address] Creatinine [Mass/Vol] 0.71 mg/dL Normal 0.70-1.20 [facility] Comment on above: Performed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 <30 [facility] Comment on above: Performed By: #### L [id number] #### E M Assembler: CALE LEON ([id number]) [facility] ([facility]RL[facility]) [address] [place] [address] Anion gap [Moles/Vol] 11 mmol/L Normal 3-13 [facility] Comment on above: Performed By: #### L [id number] #### E M Assembler: CALE LEON ([id number]) [facility] ([facility]RL[facility]) [address] [place] [address] AST [Catalytic activity/Vol] 20 U/L Normal <34 [facility] Comment on above: Performed By: #### L [id number] #### E M Assembler: CALE LEON ([id number]) [facility] BYRDESTELA RITTMAN (SWRLAB) [address] [place] [address] [place] Bilirubin [Mass/Vol] 0.5 mg/dL Normal <1.2 [facility] Comment on above: Performed By: #### L [id number] #### E M Assembler: CALE LEON ([id number]) [facility] ([facility]) [address] [place] [address] [place] Calcium [Mass/Vol] 9.3 mg/dL Normal 8.4-10.2 [facility] Comment on above: Performed By: #### L [id number] #### E M Assembler: CALE LEON ([id number]) [facility] ([facility]) [address] [place] [address] [place] Chloride [Moles/Vol] 106 mmol/L Normal 98-107 [facility] Comment on above: Performed By: #### L [id number] #### E M Assembler: CALE LEON ([id number]) [facility] ([facility]) [address] [place] [address] [place] CO2 [Moles/Vol] 23 mmol/L Normal 22-29 [facility] Comment on above: Performed By: #### L [id number] #### E M Assembler: CALE LEON ([id number]) [facility] ([facility]) [address] [place] [address] [place] Creatinine [Mass/Vol] 0.77 mg/dL Normal 0.57-1.11 [facility] Comment on above: Performed By: #### L [id number] #### E M Assembler: CALE LEON ([id number]) [facility] ([facility]) [address] GLOMERULAR FILTRATION RATE ML/MIN/1.73 SQ M.PREDICTED >90.0 Normal >60.0 [facility] Comment on above: Result Comment: Calc ulation based on the Chronic Kidney Disease Epidemiology Collaboration (CKD-EPI) equation refit without adjustment for race Performed By: #### L [id number] #### E M Assembler: CALE LEON ([id number]) [facility] ([facility]) [address] [place] [address] [place] Glucose [Mass/Vol] 102 mg/dL High 74-100 [facility] Comment on above: Performed By: #### L [id number] #### E M Assembler: CALE LEON ([id number]) [facility] ([facility]) [address] [place] [address] Potassium [Moles/Vol] 4.6 mmol/L Normal 3.5-5.1 [facility] Comment on above: Result Comment: [facility] potassium values may be up to 0.5 mmol/L lower than serum values. Performed By: #### L [id number] #### E M Assembler: CALE LEON ([id number]) [facility] ([facility]) [address] [place] [address] Protein [Mass/Vol] 6.8 g/dL Normal 6.4-8.3 [facility] Comment on above: Performed By: #### L [id number] #### E M Assembler: CALE LEON ([id number]) [facility] ([facility]) [address] [place] [address] Sodium [Moles/Vol] 140 mmol/L Normal 136-145 [facility] Comment on above: Performed By: #### L [id number] #### E M Assembler: CALE LEON ([id number]) [facility] ([facility]) [address] [place] [address] Urea nitrogen [Mass/Vol] 20 mg/dL Normal 8-21 [facility] Comment on above: Performed By: #### L [id number] #### E M Assembler: CALE LEON ([id number]) [facility] ([facility]) [address] [place] [address] DRUGS OF ABUSEon 05-25-2025 AMPHETAMINE SCREEN Negative Normal [facility] Comment on above: Performed By: #### L [id number] ####E M Assembler: CALE LEON ([id number])[facility] ([facility])[address] [place] [address] BARBITURATES SCREEN Negative Normal [facility] Comment on above: Performed By: #### L [id number] ####E M Assembler: CALE LEON ([id number])[facility])[address] [place] [address] BENZODIAZEPINE SCREEN Negative Normal [facility] Comment on above: Performed By: #### L [id number] ####E M Assembler: CALE LEON ([id number])[facility])[address] [place] [address] COCAINE METAB. SCREEN Negative Normal [facility] Comment on above: Performed By: #### L [id number] ####E M Assembler: CALE LEON ([id number])[facility] ([facility])[address] [place] [address] FENTANYL SCREEN, UR QUAL Positive Normal [facility] Comment on above: Result Comment: ORDE [...] under separate order. Performed By: #### L [id number] ####E M Assembler: CALE LEON ([id number])[facility] ([facility])[address] [place] [address] METHADONE SCREEN Negative Normal [facility] Comment on above: Performed By: #### L [id number] ####E M Assembler: CALE LEON ([id number])[facility] ([facility])[address] OPIATES SCREEN Negative Normal [facility] Comment on above: Performed By: #### L [id number] ####E M Assembler: CALE SILVERDYLON ([id number])[facility] ([facility])[address] [place] [address] OXYCODONE SCREEN Negative Normal [facility] Comment on above: Performed By: #### L [id number] ####E M Assembler: CALE LEON ([id number])[facility] ([facility])[address] [place] [address] PHENCYCLIDINE SCREEN Negative Normal [facility] Comment on above: Performed By: #### L [id number] ####E M Assembler: CALE LEON ([id number])[facility] ([facility])[address] [place] [address] ED Nursing Noteon 05-25-2025 ED Nursing Note Niharika RN at bedside to answer call light Normal [facility] ED Nursing Note Pt given dose of Suboxone 8/2 mg. Pt states she is still anxious and cannot sleep. Reassurance given that psychiatric needs will be addressed. Normal [facility] ED Nursing Note Kaushal GARCIA at bedside to medicate per orders Normal [facility] ED Nursing Note Addiction Electroencephalograph Technician at bedside Normal [facility] ED Nursing Note Estrella at bedside to assess pt [facility] ED Nursing Note Sack lunch provided Normal [facility] ED Nursing Note Pt out to restroom t o provide urine sample Normal [facility] ED Nursing Note Patient changed into two gowns and hospital socks. Patients belongings placed into one belongings bag. Patient is calm and cooperative, breathing is even and unlabored. Normal [facility] ED Nursing Note This ACC RN assessed pt in the ED. Pt initially in the hospital for Subutex. Pt states she was recently at [facility] for detox from fentanyl. Pt states she was discharged from [facility] on 05/21/25 and sent to [facility] for residential placement. Pt states she was given Subutex while at [facility]. Pt signed release for this RN to contact [facility] and [facility]. However the medical records department at [facility] in not available until Tuesday. [facility] report does not show Subutex prescription. Also [facility] has no record of this pt being there. When asked, pt continues to state that she is at [facility]. Pt is emotional during interview. Pt [...] Pt states that before detox admission at [facility] she was using 2 grams of fentanyl daily, pt using intranasal. Last use was 05/14/25. Pt states she has also recently used cocaine, meth, marijuana. Pt denies recent benzodiazepine or alcohol use. Pt states that she has not slept in several days. Pt states that while she was in [facility], she was given Trazodone 150 mg [...] consent and agreed to follow-up phone calls. [facility] ED Provider Noteon ED Provider Note EMERGENCY DEPARTMENT ENCOUNTER Pt Name: Carine Barba Birthdate 1990 Date of evaluation: 05/25/2025 ED Provider: Morteza Chris, LOUISE - CIVIL SERVICE WORKER EDcare was supervised by Dr. Sales who independently examined and evaluated the patient. Please see their attestation note for further details. CHIEF COMPLAINT Medication refill/anxiety Chief Complaint Patient presents with Med Refill Pt here requesting subutex, gabapentin, trazodone. Pt was at [place] for detox, then sent to [facility] and has not been prescribed her medications [...] 5 days ago she was at the [facility] ER and went to their detox program and was subsequently discharged to [facility]. Patient reported that she was under the [...] Result V (more content not included)... Normal [facility] ED Provider Note Emergency Department Encounter [facility] EMERGENCY DEPT Patient: Carine Barba : 1990 [...] refill. Patient states that she was at [facility] for 5 days for detox from [...] me, 05/26/25, 02:33): Rate: 77, Rhythm: Sinus, Clemons: Normal, Intervals: NV 165, QRS 92, QTc 433, Interpretation: No acute ischemic changes, improvement in rate, Old: 04/14/25 I personally discussed the patient's management with other clinicians: none All diagnostic, treatment, and disposition decisions were made by myself in conjunction with the OT. For all further details of the patient's [...] [id number] Dalila Sales MD 05/26/25 0239 Normal [facility] SHS ETHANOLon 05-25-2025 ETHANOL IN SER/PLAS- RIVERA <10 Normal <10 [facility] Comment on above: Result Comment: ORDE R COMMENTS: EDUCATIONAL TECHNOLOGY SPECIALIST depression is seen >100 mg/dL. NOTE: This result is for medical treatment only. Analysis performed using non-forensic procedures. Performed By: #### L [id number] #### E M Assembler: CALE LEON ([id number]) [facility] [employer] ([employer]) [address] [place] [address] HCG QUALITATIVE URINEon Beta HCG ( test) Ql (U) Negative Normal Negative [facility] Comment on above: Result Comment: Plea se note: Very dilute urine specimens, as indicated by a low specific gravity, may not contain banking representative levels of hCG. If is still suspected, a first morning urine specimen should be collected 48 hours later and tested. ORDER COMMENTS: is the most common reason for HCG in urine, although choriocarcinoma, hydatidiform mole, and certain nontrophoblastic malignancies also result in detectable urinary HCG levels. Sensitivity = 20mIU/mL. Performed By: #### L [id number] #### E M Assembler: CALE LEON ([id number]) [facility] [employer] ([employer]) [address] [place] [address] SARS-COV-2 ANTIGENon 025 SARS-COV-2 ANTIGEN SARS-COV-2 ANTIGEN -BINAX Reference Negative Negative A negative result does not rule out the possibility of SARS-CoV-2 infection. NAAT-based methods should be considered for symptomatic patients presenting greater than seven days after onset of symptoms. Method: Lateral flow immunoassay. Fact sheets for healthcare providers and patients can be found at the following sites: https://www.[facility].gov/m edia/884688/download https://www.fda.gov/m edia/304819/download [facility] Comment on above: Performed By: #### L [id number] #### E M Assembler: CALE LEON ([id number]) [facility] ([facility]) [address] [place] [address] Urine Cultureon 05-23-2025 URC Below infection level. Mixed Gram Positive Organisms [place] Count 1000-10,000 MIXC Mixed contaminants. Submit a new specimen if indicated. Normal [facility] Comment on above: Performed By: #### M 100.2200, L400.0001 #### [facility] Laboratory [address] [facility] [address] Anion gap in Serum or Plasma Ordered By: Ivonne Sales on 05-22-2025 Anion gap [Moles/Vol] 10 mmol/L 5-15 [facility] BUN/creatinine ratioOrdered By: Ivonne Sales on 05-22-2025 Urea nitrogen/Creatinine [Mass ratio] 23.3 mg/mg High 10-[address] [facility] Basic Metabolic Profile (BMP )on 05-22-2025 BUN/CRE 23.3 RATIO High - [facility] Comment on above: Performed By: #### L 100.0500, L500.2500 ####[facility] [address] [facility] [address] Calcium [Mass/Vol] 8.6 mg/dL Normal 7.6-11.0 [facility] Comment on above: Performed By: #### L 100.0500, L500.2500 ####[facility] [address] [facility] [address] Chloride [Moles/Vol] 104 mmol/L Normal 98-108 [facility] Comment on above: Performed By: #### L 100.0500, L500.2500 ####[facility] [address] [place], [address] CO2 [Moles/Vol] 23.9 mmol/L Normal 21.0-32.[address] [facility] Comment on above: Performed By: #### L 100.0500, L500.2500 ####[facility] [address] [place], [address] Creatinine [Mass/Vol] 0.70 mg/dL Normal 0.70-1.20 [facility] Comment on above: Performed By: #### L 100.0500, L500.2500 ####[facility] [address] [place], [address] ECRCL 110.12 ml/min Normal 50-[address] [facility] Comment on above: Performed By: #### L 100.0500, L500.2500 ####[facility] [address] [place], [address] GAP 10 Normal 5-[address] [facility] Comment on above: Performed By: #### L 100.0500, L500.2500 ####[facility] [address] [place], [address] GFR/1.73 sq M.predicted among non-blacks MDRD (S/P/Bld) [Vol rate/Area] 116 mL/min/{1.73_m2} Normal >[address] [facility] Comment on above: Result Comment: mL/m in/1.73m2 CKD-EPI Creatinine Equation (2020) Performed By: #### L 100.0500, L500.2500 ####[facility] [address] [place], [address] Glucose [Mass/Vol] 108 mg/dL High 70-99 [facility] Comment on above: Performed By: #### L 100.0500, L500.2500 ####[facility] [address] [place], [address] Potassium [Moles/Vol] 4.8 mmol/L Normal 3.3-5.1 [facility] Comment on above: Performed By: #### L 100.0500, L500.2500 ####[facility] [address] [place], [address] Sodium [Moles/Vol] 137 mmol/L Normal 133-145 [facility] Comment on above: Performed By: #### L 100.0500, L500.2500 ####[facility] [address] [place], [address] Urea nitrogen [Mass/Vol] 16 mg/dL Normal 4-[address] [facility] Comment on above: Performed By: #### L 100.0500, L500.2500 ####[facility] [address] [place], [address] CBC-Complete Blood Cnt No ffon 05-22-2025 Erythrocyte distribution width (RBC) [Ratio] 13.2 % Normal 11.6-14.[address] [facility] Comment on above: Performed By: #### L 100.0500, L500.2500 ####[facility] [address] [place], [address] Hematocrit (Bld) [Volume fraction] 41.5 % Normal 37-[address] [facility] Comment on above: Performed By: #### L 100.0500, L500.2500 ####[facility] [address] [place], [address] Hemoglobin (Bld) [Mass/Vol] 13.7 g/dL Normal 12.0-15.[address] [facility] Comment on above: Performed By: #### L 100.0500, L500.2500 ####[facility] [address] [place], [address] MCH (RBC) [Entitic mass] 32.5 pg High 27.0-32.[address] [facility] Comment on above: Performed By: #### L 100.0500, L500.2500 ####[facility] [address] [place], [address] MCHC (RBC) [Mass/Vol] 33.0 g/dL Normal 32-36 [facility] Comment on above: Performed By: #### L 100.0500, L500.2500 ####[facility] [address] [place], [address] MCV (RBC) [Entitic vol] 98.6 fL Normal 81-99 [facility] Comment on above: Performed By: #### L 100.0500, L500.2500 ####[facility] [address] [place], [address] Platelet mean volume (Bld) [Entitic vol] 10.0 fL Normal 6.2-12.[address] [facility] Comment on above: Performed By: #### L 100.0500, L500.2500 ####[facility] [address] [place], [address] Platelets (Bld) [#/Vol] 242 10*3/uL Normal 150-[address] [facility] Comment on above: Performed By: #### L 100.0500, L500.2500 ####[facility] [address] [place], [address] RBC (Bld) [#/Vol] 4.21 10*6/uL Normal 4.2-5.4 [facility] Comment on above: Performed By: #### L 100.0500, L500.2500 ####[facility] [address] [place], [address] RDW SD 48.3 fl High 35.1-43.[address] [facility] Comment on above: Performed By: #### L 100.0500, L500.2500 ####[facility] [address] [place], [address] WBC (Bld) [#/Vol] 8.3 10*3/uL Normal 4.4-11.0 [facility] Comment on above: Performed By: #### L 100.0500, L500.2500 ####[facility] [address] [place], [address] Carbon dioxide, total [Moles /volume] in Central venous bloodOrdered By: Ivonne Sales on 05-22-2025 CO2 [Moles/Vol] 23.9 mmol/L 21.0-32.[address] [facility] Chloride assayOrdered By: Luisana Sales on 05-22-2025 Chloride [Moles/Vol] 104 mmol/L 98-108 [facility] Erythrocyte distribution wid th ratioOrdered By: Ivonne Sales on 05-22-2025 Erythrocyte distribution width (RBC) [Ratio] 13.2 % 11.6-14.[address] [facility] Erythrocyte distribution wid th standard deviationOrdered By: Ivonne Sales on 05-22-2025 Erythrocyte distribution width (RBC) [Ratio] 48.3 fl High 35.1-43.[address] [facility] Glomerular filtration rate ( GFR) estimation/1.73 sq m using serum, plasma, or whole bOrdered By: Ivonne Sales on 05-22-2025 GFR/1.73 sq M.predicted among non-blacks MDRD (S/P/Bld) [Vol rate/Area] 116 mL/min/{1.73_m2} >[address] [facility] Comment on above: mL/min/1.73m2 CKD-EP I Creatinine Equation (2020) Hematocrit Auto (Bld) [Volum e fraction]Ordered By: Ivonne Sales on 05-22-2025 Hematocrit (Bld) [Volume fraction] 41.5 % 37-[address] [facility] Hemoglobin measurementOrdere d By: Ivonne Sales on 05-22-2025 Hemoglobin (Bld) [Mass/Vol] 13.7 g/dL 12.0-15.[address] [facility] MCV (mean corpuscular volume ) determinationOrdered By: Ivonne Sales on 05-22-2025 MCV (RBC) [Entitic vol] 98.6 fL 81-[address] [facility] Mean corpuscular hemoglobin (MCH) determinationOrdered By: Ivonne Sales on 05-22-2025 MCH (RBC) [Entitic mass] 32.5 pg High 27.0-32.[address] [facility] Mean corpuscular hemoglobin concentration (MCHC) determinationOrdered By: Ivonne Sales on 05-22-2025 MCHC (RBC) [Mass/Vol] 33.0 g/dL 32-36 [facility] Mean platelet volume determi nationOrdered By: Ivonne Sales on 05-22-2025 Platelet mean volume (Bld) [Entitic vol] 10.0 fL 6.2-12.[address] [facility] Platelet countOrdered By: Luisana Sales on 05-22-2025 Platelets (Bld) [#/Vol] 242 10*3/uL 150-[address] [facility] Potassium measurement (mass/ volume)Ordered By: Ivonne Sales on 05-22-2025 Potassium (Unsp spec) [Mass/Vol] 4.8 mmol/L 3.3-5.[address] [facility] RBC Auto (Bld) [#/Vol]Ordere d By: Ivonne Sales on 05-22-2025 RBC (Bld) [#/Vol] 4.21 10*6/uL 4.2-5.4 [facility] Serum creatinine measurement (mass/volume)Ordered By: Ivonne Sales on 05-22-2025 Creatinine [Mass/Vol] 0.70 mg/dL 0.70-1.20 [facility] Serum glucose measurement (m ass/volume)Ordered By: Ivonne Sales on 05-22-2025 Glucose [Mass/Vol] 108 mg/dL High 70-99 [facility] Serum or plasma calcium emily urement (mass/volume)Ordered By: Ivonne Sales on 05-22-2025 Calcium [Mass/Vol] 8.6 mg/dL 7.6-11.0 [facility] Serum or plasma urea nitroge n measurement (mass/volume)Ordered By: Ivonne Sales on 05-22-2025 Urea nitrogen [Mass/Vol] 16 mg/dL 4-[address] [facility] Sodium levelOrdered By: Leisa Sales on 05-22-2025 Sodium [Moles/Vol] 137 mmol/L 133-145 [facility] White blood cell (WBC) count Ordered By: Ivonne aSles on 05-22-2025 WBC (Bld) [#/Vol] 8.3 10*3/uL 4.4-11.0 [facility] Abdomen/Pelvis W IV Cont ONL Yon 05-21-2025 Abdomen/Pelvis W IV Cont ONLY [facility] Imaging Services [address] [place] [address] Abdomen/Pelvis W IV Cont ONLY MR#: [id number] Acct: [id number] Name: CARINE BARBA Rep #: [id number] : 1990 F 35 From: Saurabh willard MD PCP: Care Physician,No Primary Status: ADM IN Study: Abdomen/Pelvis W IV Cont ONLY Date of Exam: Exam# [id number] Ordering Dr: Ivonne Sales DO PROCEDURE: ABDOMEN/PELVIS [...] is seen in the colon. Reading Location: [id number] CC: Dr. Ivonne Sales, DO; No Primary Care Physician Reexaminer: Signed Normal [facility] Bilirubin Test strip Ql (U)O rdered By: Ivonne Sales on 05-21-2025 Bilirubin Ql (U) Negative Negative [facility] Ketones Test strip Ql (U)Ord ered By: Ivonne Sales on 05-21-2025 Ketones Ql (U) Negative Negative [facility] Microscopic analysis of urin e for red blood cells (RBC)Ordered By: Ivonne Sales on 05-21-2025 Microscopic analysis of urine for red blood cells (RBC) 0-5 SEEN /hpf 0-[address] [facility] Mucus LM Ql (Urine sed)Order ed By: Ivonne Sales on 05-21-2025 Mucus Ql (Urine sed) 0 SEEN /hpf [facility] Nitrite Test strip Ql (U)Ord ered By: Ivonne Sales on 05-21-2025 Nitrite Ql (U) Negative Negative [facility] Protein Test strip Ql (U)Ord ered By: Ivonne Sales on 05-21-2025 Protein Ql (U) 15 mg/dl High Negative [facility] Squamous epithelial cells de tection in urine sediment by light microscopyOrdered By: Ivonne Sales on 05-21-2025 Epithelial cells.squamous LM Ql (Urine sed) 0-5 SEEN /hpf 5-[address] [facility] Urinalysis, Completeon 05-21 EPI,SQUAMOUS 0-5 SEEN Normal 5-[address] [facility] Comment on above: Order Comment: CLEAN CATCH Performed By: #### M 100.2200, L400.0001 #### [facility] [address] [place], [address] RBC 0-5 SEEN Normal 0-[address] [facility] Comment on above: Order Comment: CLEAN CATCH Performed By: #### M 100.2200, L400.0001 #### [facility] [address] [place], [address] BACTERIA 0 SEEN Normal None Seen [facility] Comment on above: Order Comment: CLEAN CATCH Performed By: #### M 100.2200, L400.0001 #### [facility] [address] [place], [address] Mucus Ql (Urine sed) 0 SEEN Normal [facility] Comment on above: Order Comment: CLEAN CATCH Performed By: #### M 100.2200, L400.0001 #### [facility] [address] [place], [address] WBC 0 SEEN Normal 0-[address] [facility] Comment on above: Order Comment: CLEAN CATCH Performed By: #### M 100.2200, L400.0001 #### [facility] [address] [place], [address] Urine clarityOrdered By: Lala Sales on 05-21-2025 Clarity (U) Sl. Cloudy Clear [facility] Urine color determinationOrd ered By: Ivonne Sales on 05-21-2025 Color (U) Yellow Yellow [facility] Urine cultureOrdered By: Lala Sales on 05-21-2025 Bacteria identified Cx Nom (U) Positive Abnormal [facility] Urine glucose detectionOrder ed By: Ivonne Sales on 05-21-2025 Glucose Ql (U) Normal mg/dl Normal [facility] Urine leukocyte esterase det ection by dipstickOrdered By: Ivonne Sales on 05-21-2025 Leukocyte esterase Test strip Ql (U) Negative Negative [facility] Urine pHOrdered By: Ivonne Sales on 05-21-2025 pH (U) 7.0 [pH] 5.0 - 8.[address] [facility] Urine sediment bacteria coun t by microscopy (number/high power field)Ordered By: Ivonne Sales on 05-21-2025 Bacteria LM.HPF (Urine sed) [#/Area] 0 /[HPF] None Seen [facility] Urine specific gravity measu rementOrdered By: Ivonne Sales on 05-21-2025 Specific gravity (U) [Rel density] 1.015 1.002-1.[address] [facility] Urine urobilinogen measureme ntOrdered By: Ivonne Sales on 05-21-2025 Urobilinogen Ql (U) Normal mg/dl Normal [facility] White blood cell countOrdere d By: Ivonne Sales on 05-21-2025 White blood cell count 0 SEEN /hpf 0-[address] [facility] Absolute lymphocyte countOrd ered By: Elyse Petty on 05-18-2025 Lymphocytes Auto (Unsp spec) [#/Vol] 2.58 10*3/uL 0.83-4.[address] [facility] Absolute neutrophil countOrd ered By: Elyse Petty on 05-18-2025 Neutrophils (Bld) [#/Vol] 6.7 10*3/uL 2.0-7.[address] [facility] Alcohol, Blood (Medical)-Ser umon 05-18-2025 SERUM ETOH < 10.1 Normal <=10.[address] [facility] Comment on above: Result Comment: This test is for medical purposes only. The legal definition of intoxication varies according to local law. Performed By: #### L 700.6800, L501.9100, L100.0100, L500.2500, L505.5000 ####[facility] [address] [place], [place], [id number] Amphetamine detection with 1 000 ng/mL as cutoffOrdered By: Elyse Petty on 05-18-2025 Amphetamines Screen method >1000 ng/mL Ql (U) Negative < 200 ng/mL [facility] Anion gap in Serum or Plasma Ordered By: Elyse Petty on 05-18-2025 Anion gap [Moles/Vol] 11 mmol/L 5-15 [facility] Automated lymphocyte count a s percentage of total leukocytesOrdered By: Elyse Petty on 05-18-2025 Lymphocytes/100 WBC Auto (Unsp spec) 25.0 % - [facility] BUN/creatinine ratioOrdered By: Elyse Petty on 05-18-2025 Urea nitrogen/Creatinine [Mass ratio] 17.7 mg/mg - [facility] Basic Metabolic Profile (BMP )on 05-18-2025 BUN/CRE 17.7 RATIO Normal - [facility] Comment on above: Performed By: #### L 700.6800, L501.9100, L100.0100, L500.2500, L505.5000 ####[facility] [address] [place], [address] Calcium [Mass/Vol] 8.6 mg/dL Normal 7.6-11.0 [facility] Comment on above: Performed By: #### L 700.6800, L501.9100, L100.0100, L500.2500, L505.5000 ####[facility] [address] [place], [address] Chloride [Moles/Vol] 104 mmol/L Normal 98-108 [facility] Comment on above: Performed By: #### L 700.6800, L501.9100, L100.0100, L500.2500, L505.5000 ####[facility] [address] [place], [address] CO2 [Moles/Vol] 25.2 mmol/L Normal 21.0-32.[address] [facility] Comment on above: Performed By: #### L 700.6800, L501.9100, L100.0100, L500.2500, L505.5000 ####[facility] [address] [place], [address] Creatinine [Mass/Vol] 0.68 mg/dL Low 0.70-1.20 [facility] Comment on above: Performed By: #### L 700.6800, L501.9100, L100.0100, L500.2500, L505.5000 ####[facility] [address] [place], [address] ECRCL 113.36 ml/min Normal 50-[address] [facility] Comment on above: Performed By: #### L 700.6800, L501.9100, L100.0100, L500.2500, L505.5000 ####[facility] [address] [place], [address] GAP 11 Normal 5-[address] [facility] Comment on above: Performed By: #### L 700.6800, L501.9100, L100.0100, L500.2500, L505.5000 ####[facility] [address] [place], [address] GFR/1.73 sq M.predicted among non-blacks MDRD (S/P/Bld) [Vol rate/Area] 117 mL/min/{1.73_m2} Normal >[address] [facility] Comment on above: Result Comment: mL/m in/1.73m2 CKD-EPI Creatinine Equation (2020) Performed By: #### L 700.6800, L501.9100, L100.0100, L500.2500, L505.5000 ####[facility] [address] [place], [address] Glucose [Mass/Vol] 109 mg/dL High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 on above: Performed By: #### Paty DELEON, LAB15, [id number] ####E M Assembler: CALE LEON ([id number])[facility] [place] (SWRLAB)[address] [place] [address] [place] CO2 [Moles/Vol] 24 mmol/L Normal 22-29 [facility] Comment on above: Performed By: #### Paty DELEON, LAB15, [id number] ####E M Assembler: CALE LEON ([id number])[facility] [place] (SWRLAB)[address] [place] [address] [place] Creatinine [Mass/Vol] 0.67 mg/dL Normal 0.57-1.11 [facility] Comment on above: Performed By: #### Paty DELEON, LAB15, [id number] ####E M Assembler: CALE LEON ([id number])[facility] RODRIGUEZTMAN (SWRLAB)[address] [place] [address] [place] GLOMERULAR FILTRATION RATE ML/MIN/1.73 SQ M.PREDICTED >90.0 Normal >60.0 [facility] Comment on above: Result Comment: Calc ulation based on the Chronic Kidney Disease Epidemiology Collaboration (CKD-EPI) equation refit without adjustment for race Performed By: #### Paty DELEON, LAB15, [id number] ####E M Assembler: CALE LEON ([id number])[facility] [place] (SWRLAB)[address] [place] [address] [place] Glucose [Mass/Vol] 119 mg/dL High 74-100 [facility] Comment on above: Performed By: #### Paty ABToo, LAB15, [id number] ####E M Assembler: CALE LEON ([id number])[facility] [place] (SWRLAB)[address] [place] [address] Potassium [Moles/Vol] 3.9 mmol/L Normal 3.5-5.1 [facility] Comment on above: Result Comment: [facility] potassium values may be up to 0.5 mmol/L lower than serum values. Performed By: #### L AB143, LAB15, [id number] ####E M Assembler: CALE LEON ([id number])[facility] [place] (SWRLAB)[address] [place] [address] Sodium [Moles/Vol] 140 mmol/L Normal 136-145 [facility] Comment on above: Performed By: #### Paty AB143, LAB15, [id number] ####E M Assembler: CALE LEON ([id number])[facility] BAUERAN (SWRLAB)[address] [place] [address] Urea nitrogen [Mass/Vol] 9 mg/dL Normal 8-21 [facility] Comment on above: Performed By: #### L AB143, LAB15, [id number] ####E M Assembler: CALE LEON ([id number])[facility] [place] (SWRLAB)[address] [place] [address] Basic metabolic 1998 panelon 04-14-2025 Anion gap [Moles/Vol] 12 mmol/L 3 - 13 mmol/L [facility] Calcium [Mass/Vol] 9 mg/dL 8.4 - 10. 2 mg/dL [facility] Chloride [Moles/Vol] 104 mmol/L 98 - 10 7 mmol/L [facility] CO2 [Moles/Vol] 24 mmol/L 22 - 29 mmol/L [facility] Creatinine [Mass/Vol] 0.67 mg/dL 0.57 - 1.11 mg/dL [facility] GFR/1.73 sq M.predicted (S/P/Bld) [Vol rate/Area] - PINF [facility] Comment on above: Calculation based on the Chronic Kidney Disease Epidemiology Collaboration (CKD-EPI) equation refit without adjustment for race Glucose [Mass/Vol] 119 mg/dL High 74 - 100 mg/dL [facility] Interpretation and review of laboratory results Abnormal [facility] Potassium [Moles/Vol] 3.9 mmol/L 3.5 - 5.1 mmol/L [facility] Comment on above: Plasma potassium phillip ues may be up to 0.5 mmol/L lower than serum values. Sodium [Moles/Vol] 140 mmol/L 136 - 145 mmol/L [facility] Urea nitrogen [Mass/Vol] 9 mg/dL 8 - 21 mg/d L [facility] CBC W Auto Differential pane l (Bld)on 04-14-2025 Basophils (Bld) [#/Vol] 0 10*3/uL 0.0 - 0.2 10*3/uL [facility] Basophils/100 WBC (Bld) 0.2 % 0.0 - 2.0 % [facility] Eosinophils (Bld) [#/Vol] 0.3 10*3/uL 0.0 - 0.5 10*3/uL [facility] Eosinophils/100 WBC (Bld) 2.6 % 0.0 - 6.0 % [facility] Erythrocyte distribution width (RBC) [Ratio] 12.7 % 11.5 - 15.0 % [facility] Hematocrit (Bld) [Volume fraction] 41 % 35.0 - 47.0 % [facility] Hemoglobin (Bld) [Mass/Vol] 14.2 g/dL 11.7 - 16.0 g/dL [facility] Immature granulocytes (Bld) [#/Vol] 0.1 10*3/uL High NINF - 0.1 10*3/uL [facility] Immature granulocytes/100 WBC (Bld) 0.4 % 0.0 - 2.0 % [facility] Interpretation and review of laboratory results Abnormal [facility] Lymphocytes (Bld) [#/Vol] 1.1 10*3/uL 1.0 - 4.3 10*3/uL [facility] Lymphocytes/100 WBC (Bld) 8.5 % Low 15.0 - 45.0 % [facility] MCH (RBC) [Entitic mass] 33.2 pg 26. 0 - 34.0 pg [facility] MCHC (RBC) [Mass/Vol] 34.6 % 30.5 - 36.0 % [facility] MCV (RBC) [Entitic vol] 95.8 fL 77.0 - 99.0 fL [facility] Monocytes (Bld) [#/Vol] 0.6 10*3/uL 0.0 - 0.9 10*3/uL [facility] Monocytes/100 WBC (Bld) 4.3 % Low 5.0 - 13.0 % [facility] Neutrophils (Bld) [#/Vol] 10.9 10*3/uL High 1.8 - 7.5 10*3/uL [facility] Neutrophils/100 WBC (Bld) 84 % High 38.0 - 82.0 % [facility] Nucleated RBC/100 WBC (Bld) [Ratio] 0 % [facility] Platelet mean volume (Bld) [Entitic vol] 9.9 fL 9.0 - 12.7 fL [facility] Comment on above: MPV is a calculated measurement using platelet volume ratio Platelets (Bld) [#/Vol] 230 10*3/uL 140 - 440 10*3/uL [facility] RBC (Bld) [#/Vol] 4.28 10*6/uL 3.80 - 5.2 0 10*6/uL [facility] WBC (Bld) [#/Vol] 13 10*3/uL High 3.6 - 10.7 10*3/uL [facility] CBC WITH AUTO DIFFERENTIALon 04-14-2025 Basophils (Bld) [#/Vol] 0.0 10*3/uL Normal 0.0-0.2 [facility] Comment on above: Performed By: #### L [id number] #### E M Assembler: CALE LEON ([id number]) [facility] ESTELA RITTMAN (SWRLAB) [address] [place] [address] Basophils/100 WBC (Bld) 0.2 % Normal 0.0-2.0 [facility] Comment on above: Performed By: #### L [id number] #### E M Assembler: CALE LEON ([id number]) [facility] ESTELA RITTMAN (SWRLAB) [address] [place] [address] Eosinophils (Bld) [#/Vol] 0.3 10*3/uL Normal 0.0-0.5 [facility] Comment on above: Performed By: #### L [id number] #### E M Assembler: CALE LEON ([id number]) [facility] [place] (SWRLAB) [address] [place] [address] Eosinophils/100 WBC (Bld) 2.6 % Normal 0.0-6.0 [facility] Comment on above: Performed By: #### L [id number] #### E M Assembler: CALE LEON ([id number]) [facility] [place] [place] (SWRLAB) [address] [place] [address] Erythrocyte distribution width (RBC) [Ratio] 12.7 % Normal 11.5-15.0 [facility] Comment on above: Performed By: #### L [id number] #### E M Assembler: CALE LEON ([id number]) [facility] [place] [place] (SWRLAB) [address] [place] [address] Hematocrit (Bld) [Volume fraction] 41.0 % Normal 35.0-47.0 [facility] Comment on above: Performed By: #### L [id number] #### E M Assembler: CALE LEON ([id number]) [facility] [place] [place] (SWRLAB) [address] [place] [address] Hemoglobin (Bld) [Mass/Vol] 14.2 g/dL Normal 11.7-16.0 [facility] Comment on above: Performed By: #### L [id number] #### E M Assembler: CALE LEON ([id number]) [facility] [place] [place] (SWRLAB) [address] [place] [address] [place] IMMATURE GRANS % 0.4 % Normal 0.0-2.0 [facility] Comment on above: Performed By: #### L [id number] #### E M Assembler: CALE LEON ([id number]) [facility] [place] [place] (SWRLAB) [address] [place] [address] [place] IMMATURE GRANS ABSOLUTE 0.1 10*3/uL High <0.1 [facility] Comment on above: Performed By: #### L [id number] #### E M Assembler: CALE LEON ([id number]) [facility] [place] [place] (SWRLAB) [address] [place] [address] Lymphocytes (Bld) [#/Vol] 1.1 10*3/uL Normal 1.0-4.3 [facility] Comment on above: Performed By: #### L [id number] #### E M Assembler: CALE LEON ([id number]) [facility] [place] [place] (SWRLAB) [address] [place] [address] Lymphocytes/100 WBC (Bld) 8.5 % Low 15.0-45.0 [facility] Comment on above: Performed By: #### L [id number] #### E M Assembler: CALE LEON ([id number]) [facility] [place] [place] (SWRLAB) [address] [place] [address] MCH (RBC) [Entitic mass] 33.2 pg Normal 26.0-34.0 [facility] Comment on above: Performed By: #### L [id number] #### E M Assembler: CALE LEON ([id number]) [facility] [place] [place] (SWRLAB) [address] [place] [address] MCHC 34.6 % Normal 30.5-36.0 [facility] Comment on above: Performed By: #### L [id number] #### E M Assembler: CALE LEON ([id number]) [facility] [place] (SWRLAB) [address] [place] [address] MCV (RBC) [Entitic vol] 95.8 fL Normal 77.0-99.0 [facility] Comment on above: Performed By: #### L [id number] #### E M Assembler: CALE LEON ([id number]) [facility] [place] [place] (SWRLAB) [address] [place] [address] [place] Monocytes (Bld) [#/Vol] 0.6 10*3/uL Normal 0.0-0.9 [facility] Comment on above: Performed By: #### L [id number] #### E M Assembler: CALE LEON ([id number]) CAR[facility] [place]MER R[place]TMAN (SWRLAB) [address] [place] [address] [place] Monocytes/100 WBC (Bld) 4.3 % Low 5.0-13.0 [facility] Comment on above: Performed By: #### L [id number] #### E M Assembler: CALE LEON ([id number]) [facility] [place] (SWRLAB) [address] [place] [address] [place] NEUTROPHILS ABSOLUTE 10.9 10*3/uL High 1.8-7.5 [facility] Comment on above: Performed By: #### L [id number] #### E M Assembler: CALE LEON ([id number]) [facility] [place] [place] (SWRLAB) [address] [place] [address] [place] Neutrophils/100 WBC (Bld) 84.0 % High 38.0-82.0 [facility] Comment on above: Performed By: #### L [id number] #### E M Assembler: CALE LEON ([id number]) [facility] [place] (SWRLAB) [address] [place] [address] [place] NRBC 0.0 /100 WBCs Normal 0.0-2.0 [facility] Comment on above: Performed By: #### L [id number] #### E M Assembler: CALE LEON ([id number]) [facility] [place] (SWRLAB) [address] [place] [address] Platelet mean volume (Bld) [Entitic vol] 9.9 fL Normal 9.0-12.7 [facility] Comment on above: Result Comment: MPV is a calculated measurement using platelet volume ratio Performed By: #### L [id number] #### E M Assembler: CALE LEON ([id number]) [facility] [place] (SWRLAB) [address] [place] [address] Platelets (Bld) [#/Vol] 230 10*3/uL Normal 140-440 [facility] Comment on above: Performed By: #### L [id number] #### E M Assembler: CALE LEON ([id number]) [facility] [place] [place] (SWRLAB) [address] [place] [address] RBC (Bld) [#/Vol] 4.28 10*6/uL Normal 3.80-5.20 [facility] Comment on above: Performed By: #### L [id number] #### E M Assembler: CALE LEON ([id number]) [facility] (SWRLAB) [address] [place] [address] WBC (Bld) [#/Vol] 13.0 10*3/uL High 3.6-10.7 [facility] Comment on above: Performed By: #### L [id number] #### E M Assembler: CALE LEON ([id number]) [facility] (SWRLAB) [address] [place] [address] D-DIMER,QUANTITATIVEon 04-14 D-DIMER, INNOVANCE 0.31 mg/L Normal <0.50 [facility] Comment on above: Result Comment: MAI Ho COMMENTS: Innovance D-Dimer values of <0.50 mg/L FEU can be used in combination with a pre-test probability model (e.g. Well's) to exclude pulmonary embolism (PE) disease, as well as an aid in the diagnosis of deep vein thrombosis (DVT). Performed By: #### L [id number] ####E M Assembler: CALE LEON ([id number])[facility] (SWRLAB)[address] [place] [address] ED Nursing Noteon 04-14-2025 ED Nursing Note Pt reports slight improvement after breathing treatment but has continued wheezing. Normal [facility] ED Nursing Note Pt to room 9 with c/ o shortness of breath and wheezing x 2 days. Pt reports she has a history of asthma with no improvement with use of inhalers. Normal [facility] ED Provider Noteon ED Provider Note Emergency Department Encounter [facility] Patient: Carine Barba : 1990 Date of Evaluation: 04/14/2025 ED Provider: Vincent Huitron DO Chief Complaint Chief Complaint Patient presents with Shortness of Breath [place] Carine Barba is a 35 y.o. female [...] 347 ms QTC Interval 449 ms P Clemons 81 degrees QRS Clemons 77 degrees T Wave Clemons 15 degrees NV Interval 146 ms D-dimer, quantitative Collection Time: 04/14/25 8:56 PM (more content not included)... Normal [facility] Fibrin D-dimer FEU (PPP) [Ma ss/Vol]on 04-14-2025 Interpretation and review of laboratory results Normal [facility] D-Dimer values of <0.50 mg/L FEU can be used in combination with a pre-test probability model (e.g. Well's) to exclude pulmonary embolism (PE) disease, as well as an aid in the diagnosis of deep vein thrombosis (DVT). [facility] HCG QUANTITATIVE BLOODon HCG QUANTITATIVE <2.5 Normal Females <5 [facility] Comment on above: Result Comment: MAI [place] [...] disease. Performed By: #### L [id number], LAB15, [id number] ####E M Assembler: ACLE LEON ([id number])[facility] (SWRLAB)[address] [place] [address] HIGH SENSITIVITY TROPONIN, S ERIAL BASELINEon 04-14-2025 TROPONIN HS SERIAL BASELINE <3 Normal <=14 [facility] Comment on above: Result Comment: In i ndividuals presenting with symptoms > 2h, a baseline troponin <= 5 ng/L suggests acute cardiac injury is unlikely and further serial testing is generally not indicated. Performed By: #### L AB143, LAB15, [id number] ####E M Assembler: CALE LEON ([id number])[facility] (SWRLAB)[address] [place] [address] [place] HIGH SENSITIVITY TROPONIN, S ERIAL, SECOND TESTon 06-22-2025 2H TROPONIN HS (SERIAL 2ND TROPONIN) <3 Normal <=14 [facility] Comment on above: Result Comment: 2h t roponin (2nd troponin) samples collected between 1h 40 min and 2h and 20 min of the baseline collection time can be utilized to interpret delta troponins as per [facility] algorithms. Samples collected outside this timeframe need to be interpreted clinically. Delta value was unable to be calculated as both baseline and serial troponin tests were below the level of quantitation. As both baseline and 2h troponin values are below the level of quantitation, acute cardiac injury is unlikely. Performed By: #### L [id number], [id number] ####E M Assembler: CALE LEON ([id number])[facility] (SWRLAB)[address] [place] [address] Laboratory - Chemistry and C hemistry - challengeon 04-14-2025 HCG.beta subunit Qn Females <5 mIU/mL [facility] Laboratory - Coagulationon 0 04-14-2025 Fibrin D-dimer FEU (PPP) [Mass/Vol] 0.31 mg/L NINF - 0.50 mg/L [facility] Laboratory - Microbiology an d Antimicrobial susceptibilityon 04-14-2025 FLUAV RNA DAJA+probe Ql (Resp) Not detected Not Detected [facility] FLUBV RNA DAJA+probe Ql (Resp) Not detected Not Detected [facility] RSV RNA DAJA+probe Ql (Resp) Not detected Not Detected [facility] SARS-CoV-2 (COVID-19) RNA DAJA+probe Ql (Resp) Not detected Not Detected [facility] SARS-CoV-2 (COVID-19) RNA DAJA+probe Ql (Unsp spec) Methodology: real-time, RT-PCR The SARS-CoV-2, Flu A/B, and RSV Combo assay is intended for in vitro diagnostic use under the FDA Emergency Use Authorization (EUA). This test has not been FDA cleared or approved. In compliance with this authorization, please visit www.fda.gov/media/150 536/download or www.fda.gov/media/182 201/download to access the applicable information sheets. [facility] No Panel Informationon 04-14 2h Troponin HS (Serial 2nd Troponin) ng/L NINF - 14 ng/L [facility] Comment on above: 2h troponin (2nd tro ponin) samples collected between 1h 40 min and 2h and 20 min of the baseline collection time can be utilized to interpret delta troponins as per [facility] algorithms. Samples collected outside this timeframe need to be interpreted clinically. Delta value was unable to be calculated as both baseline and serial troponin tests were below the level of quantitation. As both baseline and 2h troponin values are below the level of quantitation, acute cardiac injury is unlikely. Interpretation and review of laboratory results Normal [facility] Values in should double every [...] monitor tumors or gestational trophoblastic disease. [facility] Interpretation and review of laboratory results Normal [facility] Troponin HS Serial Baseline ng/L NINF - 14 ng/L [facility] Comment on above: In individuals prese nting with symptoms > 2h, a baseline troponin <= 5 ng/L suggests acute cardiac injury is unlikely and further serial testing is generally not indicated. [facility] PROCALCITONIN TESTon 025 PROCALCITONIN 0.02 ng/mL Normal <0.07 [facility] Comment on above: Result Comment: MAI Ho COMMENTS: PCT <0.50 = Low risk of severe sepsis and/or septic shock. PCT >2.00 = High risk of severe sepsis and/or septic shock. Performed By: #### L [id number], [id number] ####E M Assembler: CALE LEON ([id number])[facility] (SWRLAB)[address] [place] [address] RESPIRATORY PATHOGENS PANEL BY PCRon 04-14-2025 RESPIRATORY [...] Not Detected ORDER COMMENTS: Methodology: Multiplex PCR [facility] Comment on above: Performed By: #### L [id number] #### E M Assembler: CALE LEON ([id number]) [facility] ([facility]) [address] [place] [address] SARS-COV-2, FLU A/B, AND RSV COMBOon 04-14-2025 [...] In compliance with this authorization, please visit www.fda.gov/media/172 968/download or www.fda.gov/media/961 390/download to access the applicable information sheets. [facility] Comment on above: Performed By: #### L [id number] #### E M Assembler: CALE LEON ([id number]) [facility] ([facility]) [address] [place] [address] SARS-CoV-2, Flu A/B, and RSV Comboon 04-14-2025 Interpretation and review of laboratory results Normal [facility] XR Chest Single viewon 04-14 No radiographic acute cardiopulmonary process. Report Dictated on Electronically Signed By: Nubia Olivera MD Electronically Signed Date/Time: 04/14/2025 7:59 PM EDT [facility] Patient Name: CARINE BARBA : 1990 Exam Date/Time: 04/14/2025 19:36 Procedure: XR CHEST 1 VIEW Ordering Provider: HUITRON DUSTIN Reason For Exam: shortness of breath INDICATION: Shortness of breath. VIEWS: Chest AP portable-one image COMPARISON: 01/08/2025; CT chest 12/31/2013 FINDINGS: The trachea is midline. The heart is not enlarged. There is no confluent consolidation. Left clavicle screw and plate fixation. [facility] Nubia Olivera MD - 04/14/2025 Patient [...] Electronically Signed Date/Time: 04/14/2025 7:59 PM EDT [facility] Radiology Study observation (narrative) [facility] XR Chest Single viewOrdered By: Nubia Olivera on 04-14-2025 [facility] Work Phone: CBC W Auto Differential pane l (Bld)on 01-08-2025 Basophils (Bld) [#/Vol] 0.1 10*3/uL 0.0 - 0.2 10*3/uL [facility] Basophils/100 WBC (Bld) 0.3 % 0.0 - 2.0 % [facility] Eosinophils (Bld) [#/Vol] 0.5 10*3/uL 0.0 - 0.5 10*3/uL [facility] Eosinophils/100 WBC (Bld) 2.7 % 0.0 - 6.0 % [facility] Erythrocyte distribution width (RBC) [Ratio] 13.2 % 11.5 - 15.0 % [facility] Hematocrit (Bld) [Volume fraction] 40.7 % 35.0 - 47.0 % [facility] Hemoglobin (Bld) [Mass/Vol] 13.8 g/dL 11.7 - 16.0 g/dL [facility] Immature granulocytes (Bld) [#/Vol] 0.1 10*3/uL High NINF - 0.1 10*3/uL [facility] Immature granulocytes/100 WBC (Bld) 0.4 % 0.0 - 2.0 % [facility] Interpretation and review of laboratory results Abnormal [facility] Lymphocytes (Bld) [#/Vol] 1.8 10*3/uL 1.0 - 4.3 10*3/uL [facility] Lymphocytes/100 WBC (Bld) 9.7 % Low 15.0 - 45.0 % [facility] MCH (RBC) [Entitic mass] 32.5 pg 26. 0 - 34.0 pg [facility] MCHC (RBC) [Mass/Vol] 33.9 % 30.5 - 36.0 % [facility] MCV (RBC) [Entitic vol] 96 fL 77.0 - 99.0 fL [facility] Monocytes (Bld) [#/Vol] 0.9 10*3/uL 0.0 - 0.9 10*3/uL [facility] Monocytes/100 WBC (Bld) 4.8 % Low 5.0 - 13.0 % [facility] Neutrophils (Bld) [#/Vol] 14.8 10*3/uL High 1.8 - 7.5 10*3/uL [facility] Neutrophils/100 WBC (Bld) 82.1 % High 38.0 - 82.0 % [facility] Nucleated RBC/100 WBC (Bld) [Ratio] 0 % [facility] Platelet mean volume (Bld) [Entitic vol] 9.9 fL 9.0 - 12.7 fL [facility] Comment on above: MPV is a calculated measurement using platelet volume ratio Platelets (Bld) [#/Vol] 235 10*3/uL 140 - 440 10*3/uL [facility] RBC (Bld) [#/Vol] 4.24 10*6/uL 3.80 - 5.2 0 10*6/uL [facility] WBC (Bld) [#/Vol] 18.1 10*3/uL High 3.6 - 10.7 10*3/uL [facility] CBC WITH AUTO DIFFERENTIALon 01-08-2025 Basophils (Bld) [#/Vol] 0.1 10*3/uL Normal 0.0-0.2 [facility] Comment on above: Performed By: #### L [id number] #### E M Assembler: CALE LEON ([id number]) [facility]SWRL[facility] [address] [place] [address] [place] Basophils/100 WBC (Bld) 0.3 % Normal 0.0-2.0 [facility] Comment on above: Performed By: #### L [id number] #### E M Assembler: CALE LEON ([id number]) [facility] (SWRLAB) [address] [place] [address] [place] Eosinophils (Bld) [#/Vol] 0.5 10*3/uL Normal 0.0-0.5 [facility] Comment on above: Performed By: #### L [id number] #### E M Assembler: CALE LEON ([id number]) [facility] (SWRLAB) [address] [place] [address] [place] Eosinophils/100 WBC (Bld) 2.7 % Normal 0.0-6.0 [facility] Comment on above: Performed By: #### L [id number] #### E M Assembler: CALE LEON ([id number]) CARLA PALMER RITTMAN (SWRLAB) [address] [place] [address] Erythrocyte distribution width (RBC) [Ratio] 13.2 % Normal 11.5-15.0 [facility] Comment on above: Performed By: #### L [id number] #### E M Assembler: CALE LEON ([id number]) [facility] (SWRLAB) [address] [place] [address] Hematocrit (Bld) [Volume fraction] 40.7 % Normal 35.0-47.0 [facility] Comment on above: Performed By: #### L [id number] #### E M Assembler: CALE LEON ([id number]) [facility] (SWRL[facility]) [address] [place] [address] Hemoglobin (Bld) [Mass/Vol] 13.8 g/dL Normal 11.7-16.0 [facility] Comment on above: Performed By: #### L [id number] #### E M Assembler: CALE LEON ([id number]) [facility] BYRDESTELA [facility]TM[facility] (SWRLAB) [address] [place] [address] [place] IMMATURE GRANS % 0.4 % Normal 0.0-2.0 [facility] Comment on above: Performed By: #### L [id number] #### E M Assembler: CALE LEON ([id number]) [facility] (SWRLAB) [address] [place] [address] [place] IMMATURE GRANS ABSOLUTE 0.1 10*3/uL High <0.1 [facility] Comment on above: Performed By: #### L [id number] #### E M Assembler: CALE LEON ([id number]) [facility] (SWRLAB) [address] [place] [address] Lymphocytes (Bld) [#/Vol] 1.8 10*3/uL Normal 1.0-4.3 [facility] Comment on above: Performed By: #### L [id number] #### E M Assembler: CALE LEON ([id number]) [facility] (SWRLAB) [address] [place] [address] Lymphocytes/100 WBC (Bld) 9.7 % Low 15.0-45.0 [facility] Comment on above: Performed By: #### L [id number] #### E M Assembler: CALE LEON ([id number]) [facility] (SWRLAB) [address] [place] [address] MCH (RBC) [Entitic mass] 32.5 pg Normal 26.0-34.0 [facility] Comment on above: Performed By: #### L [id number] #### E M Assembler: CALE LEON ([id number]) [facility] (SWRLAB) [address] [place] [address] MCHC 33.9 % Normal 30.5-36.0 [facility] Comment on above: Performed By: #### L [id number] #### E M Assembler: CALE LEON ([id number]) [facility] (SWRLAB) [address] [place] [address] MCV (RBC) [Entitic vol] 96.0 fL Normal 77.0-99.0 [facility] Comment on above: Performed By: #### L [id number] #### E M Assembler: CALE LOEN ([id number]) [facility] (SWRLAB) [address] [place] [address] Monocytes (Bld) [#/Vol] 0.9 10*3/uL Normal 0.0-0.9 [facility] Comment on above: Performed By: #### L [id number] #### E M Assembler: CALE LEON ([id number]) [facility] (SWRLAB) [address] [place] [address] [place] Monocytes/100 WBC (Bld) 4.8 % Low 5.0-13.0 [facility] Comment on above: Performed By: #### L [id number] #### E M Assembler: CALE LEON ([id number]) [facility] (SWRLAB) [address] [place] [address] [place] NEUTROPHILS ABSOLUTE 14.8 10*3/uL High 1.8-7.[address] [facility] Comment on above: Performed By: #### L [id number] #### E M Assembler: CALE LEON ([id number]) [facility] (SWRLAB) [address] [place] [address] [place] Neutrophils/100 WBC (Bld) 82.1 % High 38.0-82.0 [facility] Comment on above: Performed By: #### L [id number] #### E M Assembler: CALE LEON ([id number]) [facility] (SWRLAB) [address] [place] [address] [place] NRBC 0.0 /100 WBCs Normal 0.0-2.0 [facility] Comment on above: Performed By: #### L [id number] #### E M Assembler: CALE LEON ([id number]) [facility] (SWRLAB) [address] [place] [address] Platelet mean volume (Bld) [Entitic vol] 9.9 fL Normal 9.0-12.7 [facility] Comment on above: Result Comment: MPV is a calculated measurement using platelet volume ratio Performed By: #### L [id number] #### E M Assembler: CALE LEON ([id number]) [facility] (SWRLAB) [address] [place] [address] [place] Platelets (Bld) [#/Vol] 235 10*3/uL Normal 140-440 [facility] Comment on above: Performed By: #### L [id number] #### E M Assembler: CALE LEON ([id number]) [facility] (SWRLAB) [address] RBC (Bld) [#/Vol] 4.24 10*6/uL Normal 3.80-5.20 [facility] Comment on above: Performed By: #### L [id number] #### E M Assembler: CALE LEON ([id number]) [facility] (SWRLAB) [address] WBC (Bld) [#/Vol] 18.1 10*3/uL High 3.6-10.7 [facility] Comment on above: Performed By: #### L [id number] #### E M Assembler: CALE LEON ([id number]) [facility] (SWRLAB) [address] [place] [address] COMPREHENSIVE METABOLIC PANE [place] 01-08-2025 Albumin [Mass/Vol] 4.3 g/dL Normal 3.5-5.0 [facility] Comment on above: Performed By: #### L [id number] #### E M Assembler: CALE LEON ([id number]) [facility] (SWRLAB) [address] [place] [address] ALP [Catalytic activity/Vol] 62 U/L Normal 40-150 [facility] Comment on above: Performed By: #### L [id number] #### E M Assembler: CALE LEON ([id number]) [facility] (SWRLAB) [address] ALT [Catalytic activity/Vol] 11 U/L Normal <30 [facility] Comment on above: Performed By: #### L [id number] #### E M Assembler: CALE LEON ([id number]) [facility] (SWRLAB) [address] [place] [address] Anion gap [Moles/Vol] 7 mmol/L Normal 3-13 [facility] Comment on above: Performed By: #### L [id number] #### E M Assembler: CALE LEON ([id number]) [facility] BYRDESTELA [facility]TMAN (SWRLAB) [address] [place] [address] AST [Catalytic activity/Vol] 17 U/L Normal <34 [facility] Comment on above: Performed By: #### L [id number] #### E M Assembler: CALE LEON ([id number]) [facility] BY[facility]DEST[facility]A [facility]TM[facility] (SWRLAB) [address] [place] [address] Bilirubin [Mass/Vol] 0.6 mg/dL Normal <1.2 [facility] Comment on above: Performed By: #### L [id number] #### E M Assembler: CALE LEON ([id number]) [facility] BY[facility]DE[facility] (SWRLAB) [address] [place] [address] [place] Calcium [Mass/Vol] 8.8 mg/dL Normal 8.4-10.2 [facility] Comment on above: Performed By: #### L [id number] #### E M Assembler: CALE LEON ([id number]) [facility]DE[facility] (SWRLAB) [address] [place] [address] [place] Chloride [Moles/Vol] 107 mmol/L Normal 98-107 [facility] Comment on above: Performed By: #### L [id number] #### E M Assembler: CALE LEON ([id number]) [facility] (SWRLAB) [address] [place] [address] [place] CO2 [Moles/Vol] 27 mmol/L Normal 22-29 [facility] Comment on above: Performed By: #### L [id number] #### E M Assembler: CALE LEON ([id number]) [facility] (SWRLAB) [address] [place] [address] [place] Creatinine [Mass/Vol] 0.77 mg/dL Normal 0.57-1.11 [facility] Comment on above: Performed By: #### L [id number] #### E M Assembler: CALE LEON ([id number]) [facility] (SWRLAB) [address] [place] [address] GLOMERULAR FILTRATION RATE ML/MIN/1.73 SQ M.PREDICTED >90.0 Normal >60.0 [facility] Comment on above: Result Comment: Calc ulation based on the Chronic Kidney Disease Epidemiology Collaboration (CKD-EPI) equation refit without adjustment for race Performed By: #### L [id number] #### E M Assembler: CALE LEON ([id number]) [facility] (SWRL[facility]) [address] [place] [address] Glucose [Mass/Vol] 88 mg/dL Normal 74-100 [facility] Comment on above: Performed By: #### L [id number] #### E M Assembler: CALE LEON ([id number]) [facility] (SWRLAB) [address] [place] [address] Potassium [Moles/Vol] 3.8 mmol/L Normal 3.5-5.1 [facility] Comment on above: Result Comment: [facility] potassium values may be up to 0.5 mmol/L lower than serum values. Performed By: #### L [id number] #### E M Assembler: CALE LEON ([id number]) [facility] EST[facility] (SWRLAB) [address] [place] [address] [place] Protein [Mass/Vol] 6.9 g/dL Normal 6.4-8.3 [facility] Comment on above: Performed By: #### L [id number] #### E M Assembler: CALE LEON ([id number]) [facility] (SWRLAB) [address] [place] [address] Sodium [Moles/Vol] 141 mmol/L Normal 136-145 [facility] Comment on above: Performed By: #### L [id number] #### E M Assembler: CALE LEON ([id number]) [facility] (SWRLAB) [address] Urea nitrogen [Mass/Vol] 12 mg/dL Normal 8-21 [facility] Comment on above: Performed By: #### L [id number] #### E M Assembler: CALE LEON ([id number]) [facility] (SWRLAB) [address] Comprehensive metabolic 1998 panelon 01-08-2025 Albumin [Mass/Vol] 4.3 g/dL 3.5 - 5.0 g/dL [facility] ALP [Catalytic activity/Vol] 62 U/L 40 - 150 U/L [facility] ALT [Catalytic activity/Vol] 11 U/L [facility]/L [facility] Anion gap [Moles/Vol] 7 mmol/L 3 - 13 mmol/L [facility] AST [Catalytic activity/Vol] 17 U/L [facility] - [facility] U/L [facility] Bilirubin [Mass/Vol] 0.6 mg/dL NINF - 1.2 mg/dL [facility] Calcium [Mass/Vol] 8.8 mg/dL 8.4 - 10. 2 mg/dL [facility] Chloride [Moles/Vol] 107 mmol/L 98 - 10 7 mmol/L [facility] CO2 [Moles/Vol] 27 mmol/L 22 - 29 mmol/L [facility] Creatinine [Mass/Vol] 0.77 mg/dL 0.57 - 1.11 mg/dL [facility] GFR/1.73 sq M.predicted (S/P/Bld) [Vol rate/Area] - PINF [facility] Comment on above: Calculation based on the Chronic Kidney Disease Epidemiology Collaboration (CKD-EPI) equation refit without adjustment for race Glucose [Mass/Vol] 88 mg/dL 74 - 100 mg/dL [facility] Interpretation and review of laboratory results Normal [facility] Potassium [Moles/Vol] 3.8 mmol/L 3.5 - 5.1 mmol/L [facility] Comment on above: Plasma potassium phillip ues may be up to 0.5 mmol/L lower than serum values. Protein [Mass/Vol] 6.9 g/dL 6.4 - 8.3 g/dL [facility] Sodium [Moles/Vol] 141 mmol/L 136 - 145 mmol/L [facility] Urea nitrogen [Mass/Vol] 12 mg/dL 8 - 21 mg/d L [facility] ED Nursing Noteon 01-08-2025 ED Nursing Note Patient arrived via wheelchair to room 5 with male visitor. Patient complains of SOB since yesterday. Patient has hx of asthma and has been using her inhalers with no relief. Patient audibly wheezing. Patient states muscles in chest feel tight and it hurts to take a deep breath. Normal [facility] ED Provider Noteon ED Provider Note [...] Insecurity: No Food Insecurity (10/18/2024) Received from [facility] Hunger Vital Sign ? Worried About Running Out of Food in the Last Year: Never true ? Ran Out of Food in the Last Year: Never true Transportation Needs: No Transportation Needs (10/18/2024) Received from [facility] PRAPARE - Transportation ? Lack of Transportation (Medical): No ? Lack of Transportation (Non-Medical): No Housing Stability: Unknown (10/18/2024) Received from [facility] Housing Stability Vital Sign ? Unable to [...] Signed Date/Time: (more content not included)... Normal [facility] Laboratory - Microbiology an d Antimicrobial susceptibilityon 01-08-2025 FLUAV RNA DAJA+probe Ql (Resp) Not detected Not Detected [facility] FLUBV RNA DAJA+probe Ql (Resp) Not detected Not Detected [facility] RSV RNA DAJA+probe Ql (Resp) Not detected Not Detected [facility] SARS-CoV-2 (COVID-19) RNA DAJA+probe Ql (Resp) Not detected Not Detected [facility] SARS-CoV-2 (COVID-19) RNA DAJA+probe Ql (Unsp spec) Methodology: real-time, RT-PCR The SARS-CoV-2, Flu A/B, and RSV Combo assay is intended for in vitro diagnostic use under the FDA Emergency Use Authorization (EUA). This test has not been FDA cleared or approved. In compliance with this authorization, please visit www.fda.gov/media/842 016/download or www.fda.gov/media/270 436/download to access the applicable information sheets. [facility] SARS-COV-2, FLU A/B, AND RSV COMBOon [...] In compliance with this authorization, please visit www.fda.gov/media/456 686/download or www.fda.gov/media/388 659/download to access the applicable information sheets. Normal [facility] Comment on above: Performed By: #### L [id number] #### E M Assembler: CALE LEON ([id number]) [facility] [address] [place] [address] SARS-CoV-2, Flu A/B, and RSV Comboon 01-08-2025 Interpretation and review of laboratory results Normal [facility] XR Chest Single viewon 01-08 No acute cardiopulmonary process identified. Report Dictated on Electronically Signed By: Damon Mccauley MD Electronically Signed Date/Time: 01/08/2025 2:40 AM EDT [facility] Patient Name: CARINE BARBA : 1990 [...] identified. ORIF of the left clavicle noted. [facility] Damon Mccauley MD - 01/08/2025 Patient [...] Signed Date/Time: 01/08/2025 2:40 AM EDT [facility] [employer] Radiology Study observation (narrative) [facility] XR Chest Single viewOrdered By: Damon Mccauley on 01-08-2025 [facility] [employer] Work Phone: CBC panel Auto (Bld)on 10-20 Erythrocyte distribution width (RBC) [Ratio] 12.9 % Normal 11.5-15.0 [facility] Comment on above: Order Comment: Jayne almonte Type: BLOOD SPECIMENOrdering Facility: [facility] Address: [address] [place] [address] Performed By: #### 5 8410-2 ####QUIROZ LABORATORYCLIA [id number] [address] Hematocrit (Bld) [Volume fraction] 42.2 % Normal 36.0-46.0 [facility] Comment on above: Order Comment: Jayne almonte Type: BLOOD SPECIMENOrdering Facility: [facility] Address: [address] [place] [address] Performed By: #### 5 8410-2 ####QUIROZ LABORATORYCLIA [id number] [address] [place] Hemoglobin (Bld) [Mass/Vol] 13.8 g/dL Normal 11.5-15.5 [facility] Comment on above: Order Comment: Jayne almonte Type: BLOOD SPECIMENOrdering Facility: [facility] Address: [address] [place] [address] Performed By: #### 5 8410-2 ####QUIROZ LABORATORYCLIA [id number] [address] [place] MCH (RBC) [Entitic mass] 31.8 pg Normal 26.0-34.0 [facility] Comment on above: Order Comment: Speci men Type: BLOOD SPECIMENOrdering Facility: [facility] Address: [address] [place] [address] Performed By: #### 5 8410-2 ####QUIROZ LABORATORYCLIA [id number] [address] [place] MCHC (RBC) [Mass/Vol] 32.7 g/dL Normal 30.5-36.0 [facility] Comment on above: Order Comment: Speci men Type: BLOOD SPECIMENOrdering Facility: [facility] Address: [address] [place] [address] Performed By: #### 5 8410-2 ####QUIROZ LABORATORYCLIA [id number] [address] [place] MCV (RBC) [Entitic vol] 97.2 fL Normal 80.0-100.0 M [facility] Comment on above: Order Comment: Speci men Type: BLOOD SPECIMENOrdering Facility: [facility] Address: [address] [place] [address] Performed By: #### 5 8410-2 ####QUIROZ LABORATORYCLIA [id number] [address] [place] Nucleated RBC (Bld) [#/Vol] 10*3/uL Normal <0.01 [facility] Comment on above: Order Comment: Speci men Type: BLOOD SPECIMENOrdering Facility: [facility] Address: [address] [place] [address] Performed By: #### 5 8410-2 ####QUIROZ LABORATORYCLIA [id number] [address] [place] Platelet mean volume (Bld) [Entitic vol] 10.0 fL Normal 9.0-12.7 [facility] Comment on above: Order Comment: Speci men Type: BLOOD SPECIMENOrdering Facility: [facility] Address: [address] [place] [address] Performed By: #### 5 8410-2 ####QUIROZ LABORATORYCLIA [id number] [address] [place] Platelets (Bld) [#/Vol] 238 10*3/uL Normal 150-400 [facility] Comment on above: Order Comment: Speci men Type: BLOOD SPECIMENOrdering Facility: [facility] Address: [address] [place], [place] [address] Performed By: #### 5 8410-2 ####PERRY LABORATORYCLIA [id number] [address] [facility] RBC (Bld) [#/Vol] 4.34 10*6/uL Normal 3.90-5.20 [facility] Comment on above: Order Comment: Speci men Type: BLOOD SPECIMENOrdering Facility: [facility] Address: [address] [place], [place] [address] Performed By: #### 5 8410-2 ####PERRY LABORATORYCLIA [id number] [address] WBC (Bld) [#/Vol] 7.49 10*3/uL Normal 3.70-11.00 [facility] Comment on above: Order Comment: Speci men Type: BLOOD SPECIMENOrdering Facility: [facility] Address: [address] [place] [address] Performed By: #### 5 8410-2 ####PERRY LABORATORYCLIA [id number] [address] [facility] CNCOon 10-20-2024 CNCO Letter Text Normal [facility] CNDSon 10-20-2024 CNDS HNO ID: [id number] Author: NALDO RYAN MD Service: General Internal [...] were sent to e- [id number] [place] [address] - [address] [facility] - [id number] [place] [address] guaiFENesin 600 mg 12 hr tablet levoFLOXacin [...] Management, and RN I have performed the yjos-yr-ricx and relevant services for a total of < 30 minutes. SIGNATURE: Naldo Ryan MD DATE: October 20, 2024 TIME: 9:58 AM Normal [facility] Comprehensive metabolic 2000 panelon 10-20-2024 Albumin [Mass/Vol] 4.0 g/dL Normal 3.9-4.9 [facility] Comment on above: Order Comment: Jayne almonte Type: BLOOD SPECIMENOrdering Facility: [facility] Address: [address] [place] [address] Performed By: #### 2 4323-8 ####PERRY LABORATORYCLIA [id number] [address] [facility] ALP [Catalytic activity/Vol] 86 U/L Normal 34-123 [facility] Comment on above: Order Comment: Jayne almonte Type: BLOOD SPECIMENOrdering Facility: [facility] Address: [address] [place] [address] Performed By: #### 2 4323-8 ####PERRY LABORATORYCLIA [id number] [address] [facility] ALT [Catalytic activity/Vol] 32 U/L Normal 7-38 [facility] Comment on above: Order Comment: Jayne almonte Type: BLOOD SPECIMENOrdering Facility: [facility] Address: [address] [place] [address] Performed By: #### 2 4323-8 ####QUIROZ LABORATORYCLIA [id number] [place] [address] [place] Anion gap [Moles/Vol] 7 mmol/L Low 8-15 [facility] Comment on above: Order Comment: Speci men Type: BLOOD SPECIMENOrdering Facility: [facility] Address: [address] [place] [address] Performed By: #### 2 4323-8 ####QUIROZ LABORATORYCLIA [id number] [place] [address] [place] AST [Catalytic activity/Vol] 19 U/L Normal 13-35 [facility] Comment on above: Order Comment: Speci men Type: BLOOD SPECIMENOrdering Facility: [facility] Address: [address] [place] [address] Performed By: #### 2 4323-8 ####QUIROZ LABORATORYCLIA [id number] [address] [place] Bilirubin [Mass/Vol] 0.3 mg/dL Normal 0.2-1.3 [facility] Comment on above: Order Comment: Speci men Type: BLOOD SPECIMENOrdering Facility: [facility] Address: [address] [place] [address] Performed By: #### 2 4323-8 ####QUIROZ LABORATORYCLIA [id number] [address] [facility] Calcium [Mass/Vol] 9.6 mg/dL Normal 8.5-10.2 [facility] Comment on above: Order Comment: Speci men Type: BLOOD SPECIMENOrdering Facility: [facility] Address: [address] [place] [address] Performed By: #### 2 4323-8 ####QUIROZ LABORATORYCLIA [id number] [address] [place] Chloride [Moles/Vol] 98 mmol/L Normal 98-107 [facility] Comment on above: Order Comment: Speci men Type: BLOOD SPECIMENOrdering Facility: [facility] Address: [address] [place] [address] Performed By: #### 2 4323-8 ####QUIROZ LABORATORYCLIA [id number] [address] [place] CO2 [Moles/Vol] 32 mmol/L High 22-30 [facility] Comment on above: Order Comment: Speci men Type: BLOOD SPECIMENOrdering Facility: [facility] Address: [address] [place] [address] Performed By: #### 2 4323-8 ####QUIROZ LABORATORYCLIA [id number] [address] Creatinine [Mass/Vol] 0.70 mg/dL Normal 0.58-0.96 [facility] Comment on above: Order Comment: Speci men Type: BLOOD SPECIMENOrdering Facility: [facility] Address: [address] [place] [address] Performed By: #### 2 4323-8 ####QUIROZ LABORATORYCLIA [id number] [address] Creatinine and Glomerular filtration rate.predicted panel (S/P/Bld) 117 mL/min/1.73m??? Normal >=60 [facility] Comment on above: Order Comment: Speci men Type: BLOOD SPECIMENOrdering Facility: [facility] Address: [address] [place] [address] Result Comment: Vidhi mated Glomerular Filtration Rate [...] Performed By: #### 2 4323-8 ####QUIROZ LABORATORYCLIA [id number] [address] OF [facility] Glucose [Mass/Vol] 134 mg/dL High 74-99 [facility] Comment on above: Order Comment: Jayne almonte Type: BLOOD SPECIMENOrdering Facility: [facility] Address: [address] [place] [address] Result Comment: The [place] Diabetes Association (ADA) provides guidance for cutoff [...] Standards of Medical Care in Diabetes 2016, [place] [employer]. Diabetes Care. 2016.39(Suppl 1). Performed By: #### 2 4323-8 ####QUIROZ LABORATORYCLIA [id number] [place] [address] [place] Potassium [Moles/Vol] 5.5 mmol/L High 3.7-5.1 [facility] Comment on above: Order Comment: Speci men Type: BLOOD SPECIMENOrdering Facility: [facility] Address: [address] [place] [address] Performed By: #### 2 4323-8 ####QUIROZ LABORATORYCLIA [id number] [place] [address] [place] Protein [Mass/Vol] 6.8 g/dL Normal 6.3-8.0 [facility] Comment on above: Order Comment: Speci men Type: BLOOD SPECIMENOrdering Facility: [facility] Address: [address] [place] [address] Performed By: #### 2 4323-8 ####QUIROZ LABORATORYCLIA [id number] [place] [address] [place] Sodium [Moles/Vol] 137 mmol/L Normal 136-144 [facility] Comment on above: Order Comment: Speci men Type: BLOOD SPECIMENOrdering Facility: [facility] Address: [address] [place] [address] Performed By: #### 2 4323-8 ####QUIROZ LABORATORYCLIA [id number] [place] [address] [place] Urea nitrogen [Mass/Vol] 17 mg/dL Normal 7-21 [facility] Comment on above: Order Comment: Speci men Type: BLOOD SPECIMENOrdering Facility: [facility] Address: [address] [place] [address] Performed By: #### 2 4323-8 ####QUIROZ LABORATORYCLIA [id number] [place] [address] [place] ALLIED HEALTHon 10-19-2024 ALLIED HEALTH HNO ID: [id number] Author: SARAH GALLOWAY RN Service: Infection Prevention [...] 19, 2024 TIME: 9:02 AM PAGER/CONTACT #: [phone] Infection Prevention after hours/weekend pager: Contact Nursing 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 Normal [facility] Bacteria Spec Resp Culton Bacteria identified Respiratory culture Nom (Unsp spec) ORGANISM ID: 1 Few normal respiratory placido GRAM STAIN: No organisms seen No Polymorphonuclear Leukocytes Abnormal [facility] Comment on above: Performed By: #### 3 2355-0 ####[facility] LABCLIA [id number] [facility] [id number] [address] [place] CBC panel Auto (Bld)on 10-19 Erythrocyte distribution width (RBC) [Ratio] 13.1 % Normal 11.5-15.0 [facility] Comment on above: Order Comment: Speci men Type: BLOOD SPECIMENOrdering Facility: [facility] Address: [address] [place] [address] Performed By: #### 5 8410-2 ####QUIROZ LABORATORYCLIA [id number] [place] [address] [place] Hematocrit (Bld) [Volume fraction] 41.0 % Normal 36.0-46.0 [facility] Comment on above: Order Comment: Speci men Type: BLOOD SPECIMENOrdering Facility: [facility] Address: [address] [place] [address] Performed By: #### 5 8410-2 ####QUIROZ LABORATORYCLIA [id number] [address] [place] Hemoglobin (Bld) [Mass/Vol] 13.7 g/dL Normal 11.5-15.5 [facility] Comment on above: Order Comment: Speci men Type: BLOOD SPECIMENOrdering Facility: [facility] Address: [address] [place] [address] Performed By: #### 5 8410-2 ####QUIROZ LABORATORYCLIA [id number] [address] MCH (RBC) [Entitic mass] 31.9 pg Normal 26.0-34.0 [facility] Comment on above: Order Comment: Speci men Type: BLOOD SPECIMENOrdering Facility: [facility] Address: [address] [place] [address] Performed By: #### 5 8410-2 ####QUIROZ LABORATORYCLIA [id number] [address] [facility] MCHC (RBC) [Mass/Vol] 33.4 g/dL Normal 30.5-36.0 [facility] Comment on above: Order Comment: Speci men Type: BLOOD SPECIMENOrdering Facility: [facility] Address: [address] [place] [address] Performed By: #### 5 8410-2 ####QUIROZ LABORATORYCLIA [id number] [address] [place] MCV (RBC) [Entitic vol] 95.6 fL Normal 80.0-100.0 [facility] Comment on above: Order Comment: Speci men Type: BLOOD SPECIMENOrdering Facility: [facility] Address: [address] [place] [address] Performed By: #### 5 8410-2 ####QUIROZ LABORATORYCLIA [id number] [address] Nucleated RBC (Bld) [#/Vol] 10*3/uL Normal <0.01 [facility] Comment on above: Order Comment: Speci men Type: BLOOD SPECIMENOrdering Facility: [facility] Address: [facility] [place] [place] [address] Performed By: #### 5 8410-2 ####QUIROZ LABORATORYCLIA [id number] [place] [address] [place] Platelet mean volume (Bld) [Entitic vol] 10.0 fL Normal 9.0-12.7 [facility] Comment on above: Order Comment: Speci men Type: BLOOD SPECIMENOrdering Facility: [facility] Address: [address] [place] [address] Performed By: #### 5 8410-2 ####QUIROZ LABORATORYCLIA [id number] [place] [address] [place] Platelets (Bld) [#/Vol] 234 10*3/uL Normal 150-400 [facility] Comment on above: Order Comment: Speci men Type: BLOOD SPECIMENOrdering Facility: [facility] Address: [address] [place] [address] Performed By: #### 5 8410-2 ####QUIROZ LABORATORYCLIA [id number] [place] [address] [place] RBC (Bld) [#/Vol] 4.29 10*6/uL Normal 3.90-5.20 [facility] Comment on above: Order Comment: Speci men Type: BLOOD SPECIMENOrdering Facility: [facility] Address: [address] [place] [address] Performed By: #### 5 8410-2 ####QUIROZ LABORATORYCLIA [id number] [place] [address] [place] WBC (Bld) [#/Vol] 7.30 10*3/uL Normal 3.70-11.00 [facility] Comment on above: Order Comment: Speci men Type: BLOOD SPECIMENOrdering Facility: [facility] Address: [address] [place] [address] Performed By: #### 5 8410-2 ####QUIROZ LABORATORYCLIA [id number] [address] Comprehensive metabolic 2000 panelon 10-19-2024 Albumin [Mass/Vol] 3.6 g/dL Low 3.9-4.9 [facility] Comment on above: Order Comment: Speci men Type: BLOOD SPECIMENOrdering Facility: [facility] Address: [address] [place] [address] Performed By: #### 2 4323-8 ####QUIROZ LABORATORYCLIA [id number] [place] [address] [place] ALP [Catalytic activity/Vol] 96 U/L Normal 34-123 [facility] Comment on above: Order Comment: Speci men Type: BLOOD SPECIMENOrdering Facility: [facility] Address: [address] [place] [address] Performed By: #### 2 4323-8 ####QUIROZ LABORATORYCLIA [id number] [address] ALT [Catalytic activity/Vol] 33 U/L Normal 7-38 [facility] Comment on above: Order Comment: Speci men Type: BLOOD SPECIMENOrdering Facility: [facility] Address: [address] [place] [address] Performed By: #### 2 4323-8 ####QUIROZ LABORATORYCLIA [id number] [address] [place] Anion gap [Moles/Vol] 8 mmol/L Normal 8-15 [facility] Comment on above: Order Comment: Speci men Type: BLOOD SPECIMENOrdering Facility: [facility] Address: [address] [place] [address] Performed By: #### 2 4323-8 ####QUIROZ LABORATORYCLIA [id number] [address] [place] AST [Catalytic activity/Vol] 25 U/L Normal 13-35 [facility] Comment on above: Order Comment: Speci men Type: BLOOD SPECIMENOrdering Facility: [facility] Address: [address] [place] [address] Performed By: #### 2 4323-8 ####QUIROZ LABORATORYCLIA [id number] [place] [address] [place] Bilirubin [Mass/Vol] 0.4 mg/dL Normal 0.2-1.3 [facility] Comment on above: Order Comment: Speci men Type: BLOOD SPECIMENOrdering Facility: [facility] Address: [address] [place] [address] Performed By: #### 2 4323-8 ####QUIROZ LABORATORYCLIA [id number] [place] [address] [place] Calcium [Mass/Vol] 9.1 mg/dL Normal 8.5-10.2 [facility] Comment on above: Order Comment: Speci men Type: BLOOD SPECIMENOrdering Facility: [facility] Address: [address] [place] [address] Performed By: #### 2 4323-8 ####QUIROZ LABORATORYCLIA [id number] [place] [address] [place] Chloride [Moles/Vol] 99 mmol/L Normal 98-107 [facility] Comment on above: Order Comment: Speci men Type: BLOOD SPECIMENOrdering Facility: [facility] Address: [address] [place] [address] Performed By: #### 2 4323-8 ####QUIROZ LABORATORYCLIA [id number] [place] [address] [place] CO2 [Moles/Vol] 30 mmol/L Normal 22-30 [facility] Comment on above: Order Comment: Speci men Type: BLOOD SPECIMENOrdering Facility: [facility] Address: [address] [place] [address] Performed By: #### 2 4323-8 ####QUIROZ LABORATORYCLIA [id number] [place] [address] [place] Creatinine [Mass/Vol] 0.75 mg/dL Normal 0.58-0.96 [facility] Comment on above: Order Comment: Speci men Type: BLOOD SPECIMENOrdering Facility: [facility] Address: [address] [place] [address] Performed By: #### 2 4323-8 ####QUIROZ LABORATORYCLIA [id number] [place] [address] [place] Creatinine and Glomerular filtration rate.predicted panel (S/P/Bld) 108 mL/min/1.73m??? Normal >=60 [facility] Comment on above: Order Comment: Jayne almnote Type: BLOOD SPECIMENOrdering Facility: [facility] Address: [address] [place] [address] Result Comment: Vidhi mated Glomerular Filtration Rate [...] Performed By: #### 2 4323-8 ####QUIROZ LABORATORYCLIA [id number] [place] [address] [place] Glucose [Mass/Vol] 117 mg/dL High 74-99 [facility] Comment on above: Order Comment: Jayne almonte Type: BLOOD SPECIMENOrdering Facility: [facility] Address: [address] [place] [address] Result Comment: The [place] Diabetes Association (ADA) provides guidance for cutoff [...] Standards of Medical Care in Diabetes 2016, [place] [employer]. Diabetes Care. 2016.39(Suppl 1). Performed By: #### 2 4323-8 ####QUIROZ LABORATORYCLIA [id number] [place] [id number] [place] Potassium [Moles/Vol] 4.9 mmol/L Normal 3.7-5.1 [facility] Comment on above: Order Comment: Jayne almonte Type: BLOOD SPECIMENOrdering Facility: [facility] Address: [address] [place] [address] Performed By: #### 2 4323-8 ####QUIROZ LABORATORYCLIA [id number] [address] [place] Protein [Mass/Vol] 6.6 g/dL Normal 6.3-8.0 [facility] Comment on above: Order Comment: Speci men Type: BLOOD SPECIMENOrdering Facility: [facility] Address: [address] [place] [address] Performed By: #### 2 4323-8 ####QUIROZ LABORATORYCLIA [id number] [address] [place] Sodium [Moles/Vol] 137 mmol/L Normal 136-144 [facility] Comment on above: Order Comment: Speci men Type: BLOOD SPECIMENOrdering Facility: [facility] Address: [address] [place] [address] Performed By: #### 2 4323-8 ####QUIROZ LABORATORYCLIA [id number] [address] [place] Urea nitrogen [Mass/Vol] 18 mg/dL Normal 7-21 [facility] Comment on above: Order Comment: Speci men Type: BLOOD SPECIMENOrdering Facility: [facility] Address: [address] [place] [address] Performed By: #### 2 4323-8 ####QUIROZ LABORATORYCLIA [id number] [place] [id number] [facility] [place] ALLIED HEALTHon 10-18-2024 ALLIED HEALTH HNO ID: [id number] Author: FAUSTINO NICE CT Service: Radiology Author [...] PATIENT PRESENTS WITH AN IMPLANTABLE OR ATTACHED SIDER: No RADIOLOGY DEPARTMENT: CT; Exam(s) Completed: PE Study PERIPHERAL IV DATA: Inpatient: see LDA documentation SIGNED BY: FABIO Givens October 18, 2024 12:48 PM [facility] HNO ID: [id number] Author: IDALIA LOPEZ RT(R) Service: Radiology Author Type: Curriculum Writer Type: Allied Health Filed: 10/18/2024 11:48 Note [...] PATIENT PRESENTS WITH AN IMPLANTABLE OR ATTACHED SIDER: No RADIOLOGY DEPARTMENT: General X-ray: Exam(s) Completed: Chest X-Ray PERIPHERAL IV DATA: Not applicable SIGNED BY: RT Lona([place]) October 18, 2024 11:47 AM [facility] CASE MGT INIT [facility] 2023 CASE MGT INIT [facility] HNO ID: [id number] Author: FAWN LONGO LSW Service: ASSESSMENT Author Type: Alternative Medicine Practitioner Type: Care Mgt Initial Assessment Filed: 10/18/2024 [...] Current Advance Directive: Health Care 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 No equipment use. Pt uses [facility], in [place]. Sig other will p/u on d/c. CM will follow with d/c planning needs. SIGNATURE: DICK Colon, ACCelina PATIENT NAME: Carine Barba DATE: October 18, 2024 TIME: 11:18 PM Normal [facility] CBC W Auto Differential pane l (Bld)on 10-18-2024 Basophils (Bld) [#/Vol] 10*3/uL Normal <0.11 M [facility] Comment on above: Order Comment: Speci men Type: BLOOD SPECIMENOrdering Facility: [facility] Address: [address] [place] [address] Performed By: #### 5 7021-8 ####QUIROZ LABORATORYCLIA [id number] [place] [address] [place] Basophils/100 WBC (Bld) 0.2 % Normal [facility] Comment on above: Order Comment: Speci men Type: BLOOD SPECIMENOrdering Facility: [facility] Address: [address] [place] [address] Performed By: #### 5 7021-8 ####QUIROZ LABORATORYCLIA [id number] [place] [address] [place] Differential cell count method Nom (Bld) Auto Normal [facility] Comment on above: Order Comment: Speci men Type: BLOOD SPECIMENOrdering Facility: [facility] Address: [address] [place] [address] Performed By: #### 5 7021-8 ####QUIROZ LABORATORYCLIA [id number] [place] [address] [place] Eosinophils (Bld) [#/Vol] 10*3/uL Normal <0.46 [facility] Comment on above: Order Comment: Speci men Type: BLOOD SPECIMENOrdering Facility: [facility] Address: [address] [place] [address] Performed By: #### 5 7021-8 ####QUIROZ LABORATORYCLIA [id number] [address] [place] Eosinophils/100 WBC (Bld) 0.0 % Normal [facility] Comment on above: Order Comment: Speci men Type: BLOOD SPECIMENOrdering Facility: [facility] Address: [address] [place] [address] Performed By: #### 5 7021-8 ####QUIROZ LABORATORYCLIA [id number] [place] [address] [place] Erythrocyte distribution width (RBC) [Ratio] 13.2 % Normal 11.5-15.0 [facility] Comment on above: Order Comment: Speci men Type: BLOOD SPECIMENOrdering Facility: [facility] Address: [address] [place] [address] Performed By: #### 5 7021-8 ####QUIROZ LABORATORYCLIA [id number] [place] [address] [place] Hematocrit (Bld) [Volume fraction] 39.6 % Normal 36.0-46.0 [facility] Comment on above: Order Comment: Speci men Type: BLOOD SPECIMENOrdering Facility: [facility] Address: [address] [place] [address] Performed By: #### 5 7021-8 ####QUIROZ LABORATORYCLIA [id number] [place] [address] [place] Hemoglobin (Bld) [Mass/Vol] 13.3 g/dL Normal 11.5-15.5 [facility] Comment on above: Order Comment: Speci men Type: BLOOD SPECIMENOrdering Facility: [facility] Address: [address] [place] [address] Performed By: #### 5 7021-8 ####QUIROZ LABORATORYCLIA [id number] [place] [address] [place] Immature granulocytes (Bld) [#/Vol] 0.03 10*3/uL Normal <0.10 [facility] Comment on above: Order Comment: Speci men Type: BLOOD SPECIMENOrdering Facility: [facility] Address: [address] [place] [address] Performed By: #### 5 7021-8 ####QUIROZ LABORATORYCLIA [id number] [place] [address] [place] Immature granulocytes/100 WBC (Bld) 0.3 % Normal [facility] Comment on above: Order Comment: Speci men Type: BLOOD SPECIMENOrdering Facility: [facility] Address: [address] [place] [address] Performed By: #### 5 7021-8 ####QUIROZ LABORATORYCLIA [id number] [place] [address] [place] Lymphocytes (Bld) [#/Vol] 2.48 10*3/uL Normal 1.00-4.00 [facility] Comment on above: Order Comment: Speci men Type: BLOOD SPECIMENOrdering Facility: [facility] Address: [address] [place] [address] Performed By: #### 5 7021-8 ####QUIROZ LABORATORYCLIA [id number] [address] [facility] Lymphocytes/100 WBC (Bld) 25.1 % Normal [facility] Comment on above: Order Comment: Speci men Type: BLOOD SPECIMENOrdering Facility: [facility] Address: [address] [place] [address] Performed By: #### 5 7021-8 ####QUIROZ LABORATORYCLIA [id number] [address] [facility] MCH (RBC) [Entitic mass] 32.4 pg Normal 26.0-34.0 [facility] Comment on above: Order Comment: Speci men Type: BLOOD SPECIMENOrdering Facility: [facility] Address: [address] [place] [address] Performed By: #### 5 7021-8 ####QUIROZ LABORATORYCLIA [id number] [address] [place] MCHC (RBC) [Mass/Vol] 33.6 g/dL Normal 30.5-36.0 [facility] Comment on above: Order Comment: Speci men Type: BLOOD SPECIMENOrdering Facility: [facility] Address: [address] [place] [address] Performed By: #### 5 7021-8 ####QUIROZ LABORATORYCLIA [id number] [address] MCV (RBC) [Entitic vol] 96.4 fL Normal 80.0-100.0 [facility] Comment on above: Order Comment: Speci men Type: BLOOD SPECIMENOrdering Facility: [facility] Address: [address] [place] [address] Performed By: #### 5 7021-8 ####QUIROZ LABORATORYCLIA [id number] [address] Monocytes (Bld) [#/Vol] 0.65 10*3/uL Normal <0.87 [facility] Comment on above: Order Comment: Speci men Type: BLOOD SPECIMENOrdering Facility: [facility] Address: [address] [place] [address] Performed By: #### 5 7021-8 ####QUIROZ LABORATORYCLIA [id number] [place] [address] [place] Monocytes/100 WBC (Bld) 6.6 % Normal [facility] Comment on above: Order Comment: Speci men Type: BLOOD SPECIMENOrdering Facility: [facility] Address: [address] [place] [address] Performed By: #### 5 7021-8 ####QUIROZ LABORATORYCLIA [id number] [place] [address] [place] Neutrophils (Bld) [#/Vol] 6.69 10*3/uL Normal 1.45-7.50 [facility] Comment on above: Order Comment: Speci men Type: BLOOD SPECIMENOrdering Facility: [facility] Address: [address] [place] [address] Performed By: #### 5 7021-8 ####QUIROZ LABORATORYCLIA [id number] [place] [address] [place] Neutrophils/100 WBC (Bld) 67.8 % Normal [facility] Comment on above: Order Comment: Speci men Type: BLOOD SPECIMENOrdering Facility: [facility] Address: [address] [place] [address] Performed By: #### 5 7021-8 ####QUIROZ LABORATORYCLIA [id number] [place] [address] [place] Nucleated RBC (Bld) [#/Vol] 10*3/uL Normal <0.01 [facility] Comment on above: Order Comment: Speci men Type: BLOOD SPECIMENOrdering Facility: [facility] Address: [address] [place] [address] Performed By: #### 5 7021-8 ####QUIROZ LABORATORYCLIA [id number] [place] [address] [place] Nucleated RBC/100 WBC (Bld) [Ratio] 0.0 /100 WBC Normal [facility] Comment on above: Order Comment: Speci men Type: BLOOD SPECIMENOrdering Facility: [facility] Address: [address] [place] [address] Performed By: #### 5 7021-8 ####PERRY LABORATORYCLIA [id number] [place] [address] [place] Platelet mean volume (Bld) [Entitic vol] 9.8 fL Normal 9.0-12.7 [facility] Comment on above: Order Comment: Speci men Type: BLOOD SPECIMENOrdering Facility: [facility] Address: [address] [place] [address] Performed By: #### 5 7021-8 ####PERRY LABORATORYCLIA [id number] [place] [address] [facility] [place] Platelets (Bld) [#/Vol] 250 10*3/uL Normal 150-400 [facility] Comment on above: Order Comment: Speci men Type: BLOOD SPECIMENOrdering Facility: [facility] Address: [address] [place] [address] Performed By: #### 5 7021-8 ####PERRY LABORATORYCLIA [id number] [place] [address] [facility] [place] RBC (Bld) [#/Vol] 4.11 10*6/uL Normal 3.90-5.20 [facility] Comment on above: Order Comment: Speci men Type: BLOOD SPECIMENOrdering Facility: [facility] Address: [address] [place] [address] Performed By: #### 5 7021-8 ####PERRY LABORATORYCLIA [id number] [address] [place] WBC (Bld) [#/Vol] 9.87 10*3/uL Normal 3.70-11.00 [facility] Comment on above: Order Comment: Speci men Type: BLOOD SPECIMENOrdering Facility: [facility] [facility] Address: [address] [place] [address] Performed By: #### 5 7021-8 ####PERRY LABORATORYCLIA [id number] [address] CTA CHEST (NON GATED) W IVCO N PEon 10-18-2024 CTA CHEST (NON GATED) W IVCON PE * * *Final Report* * * DATE OF EXAM: Oct 18 2024 12:52PM [facility] 0564 - CTA CHEST (NON GATED) [...] upper lobe likely secondary to atypical/viral pneumonia. Reexaminer: PSCOllie Transcribe Date/Time: Oct 18 2024 12:56P Dictated by : ROGELIO RIDER DO This examination was interpreted and the report reviewed and electronically signed by: ROGELIO RIDER DO on Oct 18 2024 1:14PM EST [id number] N Normal [facility] Comprehensive metabolic 2000 panelon 10-18-2024 Albumin [Mass/Vol] 4.0 g/dL Normal 3.9-4.9 [facility] Comment on above: Order Comment: Jayne almonte Type: BLOOD SPECIMENOrdering Facility: [facility] Address: [address] [place] [address] Performed By: #### 2 4323-8, [id number] ####QUIROZ LABORATORYCLIA [id number] [address] STATES OF [facility] ALP [Catalytic activity/Vol] 87 U/L Normal 34-123 [facility] Comment on above: Order Comment: Jayne almonte Type: BLOOD SPECIMENOrdering Facility: [facility] Address: [address] [phone] Performed By: #### 2 4323-8, [id number] ####PERRY LABORATORYCLIA [id number] [address] [place] [facility] ALT [Catalytic activity/Vol] 24 U/L Normal 7-38 [facility] Comment on above: Order Comment: Jayne almonte Type: BLOOD SPECIMENOrdering Facility: [facility] Address: [address] [place] [address] Performed By: #### 2 4323-8, [id number] ####QUIROZ LABORATORYCLIA [id number] [place] [address] [place] Anion gap [Moles/Vol] 9 mmol/L Normal 8-15 [facility] Comment on above: Order Comment: Speci men Type: BLOOD SPECIMENOrdering Facility: [facility] Address: [address] [place] [address] Performed By: #### 2 4323-8, [id number] ####QUIROZ LABORATORYCLIA [id number] [place] [address] [place] AST [Catalytic activity/Vol] 29 U/L Normal 13-35 [facility] Comment on above: Order Comment: Speci men Type: BLOOD SPECIMENOrdering Facility: [facility] Address: [address] [place] [address] Performed By: #### 2 4323-8, [id number] ####QUIROZ LABORATORYCLIA [id number] [place] [address] [place] Bilirubin [Mass/Vol] 0.4 mg/dL Normal 0.2-1.3 [facility] Comment on above: Order Comment: Speci men Type: BLOOD SPECIMENOrdering Facility: [facility] Address: [address] [place] [address] Performed By: #### 2 4323-8, [id number] ####QUIROZ LABORATORYCLIA [id number] [place] [address] [place] Calcium [Mass/Vol] 9.2 mg/dL Normal 8.5-10.2 [facility] Comment on above: Order Comment: Speci men Type: BLOOD SPECIMENOrdering Facility: [facility] Address: [address] [phone] Performed By: #### 2 4323-8, [id number] ####QUIROZ LABORATORYCLIA [id number] [place] [address] [place] Chloride [Moles/Vol] 99 mmol/L Normal 98-107 [facility] Comment on above: Order Comment: Speci men Type: BLOOD SPECIMENOrdering Facility: [facility] Address: [address] [place] [address] Performed By: #### 2 4323-8, [id number] ####QUIROZ LABORATORYCLIA [id number] [place] [address] [place] CO2 [Moles/Vol] 29 mmol/L Normal 22-30 [facility] Comment on above: Order Comment: Sethi gage Type: BLOOD SPECIMENOrdering Facility: [facility] Address: [address] [place] [address] Performed By: #### 2 4323-8, [id number] ####QUIROZ LABORATORYCLIA [id number] [place] [address] [place] Creatinine [Mass/Vol] 0.69 mg/dL Normal 0.58-0.96 [facility] Comment on above: Order Comment: Jayne almonte Type: BLOOD SPECIMENOrdering Facility: [facility] Address: [address] [place] [address] Performed By: #### 2 4323-8, [id number] ####QUIROZ LABORATORYCLIA [id number] [address] Creatinine and Glomerular filtration rate.predicted panel (S/P/Bld) 118 mL/min/1.73m??? Normal >=60 [facility] Comment on above: Order Comment: Jayne almonte Type: BLOOD SPECIMENOrdering Facility: [facility] Address: [address] [place] [address] Result Comment: Vidhi mated Glomerular Filtration Rate [...] actual GFR. Performed By: #### 2 4323-8, [id number] ####QUIROZ LABORATORYCLIA [id number] [address] [place] Glucose [Mass/Vol] 92 mg/dL Normal 74-99 [facility] Comment on above: Order Comment: Jayne almonte Type: BLOOD SPECIMENOrdering Facility: [facility] Address: [address] [phone] Result Comment: The [place] Diabetes Association (ADA) provides guidance for cutoff [...] Standards of Medical Care in Diabetes 2016, [place] [employer]. Diabetes Care. 2016.39(Suppl 1). Performed By: #### 2 4323-8, [id number] ####QUIROZ LABORATORYCLIA [id number] [place] [address] [place] Potassium [Moles/Vol] 3.4 mmol/L Low 3.7-5.1 [facility] Comment on above: Order Comment: Speci men Type: BLOOD SPECIMENOrdering Facility: [facility] Address: [address] [place] [address] Performed By: #### 2 4323-8, [id number] ####QUIROZ LABORATORYCLIA [id number] [place] [address] [place] Protein [Mass/Vol] 6.9 g/dL Normal 6.3-8.0 [facility] Comment on above: Order Comment: Speci men Type: BLOOD SPECIMENOrdering Facility: [facility] Address: [address] [phone] Performed By: #### 2 4323-8, [id number] ####QUIROZ LABORATORYCLIA [id number] [place] [address] [place] Sodium [Moles/Vol] 137 mmol/L Normal 136-144 [facility] Comment on above: Order Comment: Speci men Type: BLOOD SPECIMENOrdering Facility: [facility] Address: [address] [phone] Performed By: #### 2 4323-8, [id number] ####QUIROZ LABORATORYCLIA [id number] [place] [id number] [place] Urea nitrogen [Mass/Vol] 14 mg/dL Normal 7- [facility] Comment on above: Order Comment: Speci men Type: BLOOD SPECIMENOrdering Facility: [facility] Address: [address] [place] [address] Performed By: #### 2 4323-8, [id number] ####PERRY LABORATORYCLIA [id number] [address] [place] ECG COMPLETEon 10-18-2024 ECG COMPLETE Ventricular Rate : 8 7 BPM Atrial Rate : 87 BPM P-R Interval : 144 ms QRS Duration : 90 ms Q-T Interval : 356 ms QTC Calculation(Bazett) : 428 ms Calculated P Clemons : 79 degrees Calculated R Clemons : 82 degrees Calculated T Clemons : 52 degrees NORMAL SINUS RHYTHM WITH SINUS ARRHYTHMIA NONSPECIFIC T WAVE ABNORMALITY ABNORMAL ECG NO STEMI Confirmed by Dmitry VAZQUEZ ERIKA ([id number]), acquisition editor ABEL KIRK ([id number]) on 10/19/2024 9:44:13 AM NAME : CARINE BARBA PID : [id number] : 1990 Gender : Female Race : ORD : [id number] Procedure Date : Oct 18 2024 11:44:25 Edit Date : Oct 19 2024 09:44:16 Diagnosis: NORMAL SINUS RHYTHM WITH SINUS ARRHYTHMIA NONSPECIFIC T WAVE ABNORMALITY ABNORMAL ECG NO STEMI Confirmed by Dmitry VAZQUEZ ERIKA ([id number]), acquisition editor ABEL KIRK ([id number]) on 10/19/2024 9:44:13 AM Test Reason : Chest Pain Location : 1 : ER ED Overread By : Dmitry VAZQUEZ ERIKA Edited By : ABEL KIRK Referred By : , Acquired by : Steve VALDEZ [facility] ED PROV NOTEon 10-18-2024 ED PROV NOTE HNO ID: [id number] Author: VIVIEN ABDI DO Service: Emergency Medicine [...] PAGER/CONTACT #: KANDIS ABDIDNADOLFO Dinero 10/18/24 1549 [facility] ED PROV NOTE HNO ID: [id number] Author: ANA VAZQUEZ MD Service: ? Author Type: Physician Type: ED Provider Notes Filed: 10/18/2024 13:44 Note Text: ED Provider Note Patient Name: Carine Barba : 1990 SERVICE DATE: 10/18/24 History Patient presents with: Asthma: pt was seen multiple times and was admitted ([place])and left. and states they were not nice to her and she was getting worse and so she left and now states she still can't breath. 34-year-old female with history of asthma and DVT who presents with increasing shortness of breath, cough, and wheezing. Patient was seen at [facility] on the and overnight for the [...] increasing shortness (more content not included)... Normal [facility] HCG Preg Ur Qlon 10-18-2024 HCG ( test) Ql (U) Negative Normal Negative [facility] Comment on above: Order Comment: Speci men Type: URINE SPECIMENOrdering Facility: [facility] Address: [address] [place] [address] Result Comment: This test is intended to aid in the early detection of . Very dilute urine samples, as indicated by a low specific gravity, may not contain banking representative levels of hCG. This test detects [...] for . Performed By: #### 2 106-3 ####PERRY LABORATORYCLIA [id number] [place] [address] [place] HIGH SENSITIVITY TROPONIN T (INITIAL)on 10-18-2024 Troponin T.cardiac High sensitivity method [Mass/Vol] <6 Normal <12 [facility] Comment on above: Order Comment: Speci men Type: BLOOD SPECIMENOrdering Facility: [facility] Address: [address] [place] [address] Performed By: #### 2 4323-8, [id number] ####QUIROZ LABORATORYCLIA [id number] [place] [id number] [facility] HIGH SENSITIVITY TROPONIN T (SECOND)on 10-18-2024 Troponin T.cardiac High sensitivity method [Mass/Vol] <6 Normal <12 [facility] Comment on above: Order Comment: Speci men Type: BLOOD SPECIMENOrdering Facility: [facility] Address: [facility] [place] [address] Performed By: #### L [id number], 13149-5 ####QUIROZ LABORATORYCLIA [id number] [place] [address] [facility] HISTORY PHYSICALon HISTORY PHYSICAL HNO ID: [id number] Author: SUNIL ROMERO MD Service: General Internal Medicine Author Type: Physician Type: H&P Filed: 10/18/2024 20:40 Note Text: [facility] STAFF PHYSICIAN NOTE OF PERSONAL INVOLVEMENT [...] counseling and/or coordinating care for the patient. Suwl-gy-tmea time was 35 minutes SIGNATURE: Sunil Romero MD DATE of SERVICE: October 18, 2024 TIME of SERVICE: 8:38 PM History and Physical Examination SERVICE DATE: 10/18/2024 SERVICE TIME: 4567 PCP: No primary care provider on file. PRIMARY ATTENDING: Sunil Fish MD Subjective CHIEF COMPLAINT: Asthma (pt was seen multiple times and was admitted ([place])and left. and states they were not nice [...] her symptoms have progressively worsened since leaving [facility]. She reports ongoing shortness of breath [...] dysuria, fr (more content not included)... Normal [facility] Legionella Ag Ur Qlon 2023 Legionella sp Ag Ql (U) Negative Normal Negative [facility] Comment on above: Order Comment: Jayne almonte Type: URINE SPECIMENOrdering Facility: [facility] Address: [address] [place] [address] Result Comment: Legi carrollla urinary antigen test is used as an aid in diagnosis of infection with Legionella pneumophila serogroup 1. It may be detected from a few days to several months after onset of signs and symptoms despite antibiotic therapy or disease resolution. A negative result cannot exclude Legionellosis. Clinical correlation is required. Performed By: #### 3 2781-7 ####[facility] LABCLIA [id number] [place] [address] [place] [facility] Procalcitonin [Mass/Vol] ng/mL Normal <0.09 [facility] Comment on above: Order Comment: Specbeto almonte Type: BLOOD SPECIMENOrdering Facility: [facility] Address: [address] [place] [address] Result Comment: For a guided interpretation of test results, please visit the Change in Procalcitonin Calculator, [email or web address]. Performed By: #### L VS2851, 27194-2 ####PERRY LABORATORYCLIA [id number] [place] [address] [place] STAPHYLOCOCCUS AUREUS AND MR SA SCREEN, PCR, NASALon 10-18-2024 S. aureus and MRSA panel DAJA+probe (Nose) Not detected Normal Not Detected [facility] Comment on above: Order Comment: Speci men Type: SWABOrdering Facility: [facility] Address: [address] [place] [address] Performed By: #### S APCR ####[facility] LABCLIA [id number] [place] [address] [place] STREPTOCOCCUS PNEUMONIAE ANT IGEN URINEon 10-18-2024 STREPTOCOCCUS PNEUMONIAE ANTIGEN URINE STREP PNEUMO AG RESULT: Negative for Streptococcus pneumoniae antigen. Presumptive negative for pneumococcal pneumonia, suggesting no current or recent pneumococcal infection. Infection due to S.pneumoniae cannot be ruled out since the antigen present in the sample may be below the detection limit of the test. Normal [facility] Comment on above: Performed By: #### S PNAG ####[facility] LABCLIA [id number] [place] [address] [place] XR CHEST 1V [...] RIGHT bilateral infrahilar opacities suggestive of pneumonia. Reexaminer: MARCIN Transcribe Date/Time: Oct 18 2024 11:48A Dictated by : ROGELIO RIDER, DO This examination was interpreted and the report reviewed and electronically signed by: ROGELIO RIDER DO on Oct 18 2024 11:49AM EST [id number] N Normal [facility] CBC W/Diff, Automatedon 12-2 Absolute Neut Normal 2.0-7.[address] [facility] Comment on above: Result Comment: PT D ISCHARGED Performed By: #### L 100.0100, L500.4050 #### [facility] Laboratory [address] [place], [address] HCT Normal 37-[address] [facility] Comment on above: Result Comment: PT D ISCHARGED Performed By: #### L 100.0100, L500.4050 #### [facility] [address] [place], [address] HGB Normal 12.0-15.[address] [facility] Comment on above: Result Comment: PT D ISCHARGED Performed By: #### L 100.0100, L500.4050 #### [facility] [address] [place], [address] MCH Normal 27.0-32.[address] [facility] Comment on above: Result Comment: PT D ISCHARGED Performed By: #### L 100.0100, L500.4050 #### [facility] [address] [place], [address] MCHC Normal 32-[address] [facility] Comment on above: Result Comment: PT D ISCHARGED Performed By: #### L 100.0100, L500.4050 #### [facility] [address] [place], [address] MCV Normal 81-[address] [facility] Comment on above: Result Comment: PT D ISCHARGED Performed By: #### L 100.0100, L500.4050 #### [facility] [address] [place], [address] NEUT% Normal 47-[address] [facility] Comment on above: Result Comment: PT D ISCHARGED Performed By: #### L 100.0100, L500.4050 #### [facility] [address] [place], [address] PLT Normal 150-[address] [facility] Comment on above: Result Comment: PT D ISCHARGED Performed By: #### L 100.0100, L500.4050 #### [facility] [address] [place], [address] RBC Normal 4.2-5.[address] [facility] Comment on above: Result Comment: PT D ISCHARGED Performed By: #### L 100.0100, L500.4050 #### [facility] [address] [place], [address] RDW CV Normal 11.6-14.[address] [facility] Comment on above: Result Comment: PT D ISCHARGED Performed By: #### L 100.0100, L500.4050 #### [facility] [address] [place], [address] RDW SD Normal 35.1-43.[address] [facility] Comment on above: Result Comment: PT D ISCHARGED Performed By: #### L 100.0100, L500.4050 #### [facility] [address] [place], [address] WBC Normal 4.4-11.[address] [facility] Comment on above: Result Comment: PT D ISCHARGED Performed By: #### L 100.0100, L500.4050 #### [facility] [address] [place], [address] Comprehensive Metabolic Prof iloctavio 10-17-2024 ALB Normal 3.2-5.[address] [facility] Comment on above: Result Comment: PT D ISCHARGED Performed By: #### L 100.0100, L500.4050 #### [facility] [address] [place], [address] ALK P Normal 45-[address] [facility] Comment on above: Result Comment: PT D ISCHARGED Performed By: #### L 100.0100, L500.4050 #### [facility] [address] [place], [address] ALT Normal 13-[address] [facility] Comment on above: Result Comment: PT D ISCHARGED Performed By: #### L 100.0100, L500.4050 #### [facility] [address] [place], [address] AST Normal 15-[address] [facility] Comment on above: Result Comment: PT D ISCHARGED Performed By: #### L 100.0100, L500.4050 #### [facility] [address] [place], [address] BUN Normal 7-[address] [facility] Comment on above: Result Comment: PT D ISCHARGED Performed By: #### L 100.0100, L500.4050 #### [facility] [address] [place], [address] BUN/CRE Normal 10-[address] [facility] Comment on above: Result Comment: PT D ISCHARGED Performed By: #### L 100.0100, L500.4050 #### [facility] [address] [place], [address] CA,Total Normal 8.5-10.[address] [facility] Comment on above: Result Comment: PT D ISCHARGED Performed By: #### L 100.0100, L500.4050 #### [facility] [address] [place], [address] CL Normal 98-[address] [facility] Comment on above: Result Comment: PT D ISCHARGED Performed By: #### L 100.0100, L500.4050 #### [facility] [address] [place], [address] CO2 Normal 21.0-32.[address] [facility] Comment on above: Result Comment: PT D ISCHARGED Performed By: #### L 100.0100, L500.4050 #### [facility] [address] [place], [address] CREAT,SERUM Normal 0.55-1.[address] [facility] Comment on above: Result Comment: PT D ISCHARGED Performed By: #### L 100.0100, L500.4050 #### [facility] [address] [place], [address] EST GFR Normal >[address] [facility] Comment on above: Result Comment: PT D ISCHARGED Performed By: #### L 100.0100, L500.4050 #### [facility] [address] [place], [address] EST GFR - AA Normal >[address] [facility] Comment on above: Result Comment: PT D ISCHARGED Performed By: #### L 100.0100, L500.4050 #### [facility] [address] [place], [address] GAP Normal 5-[address] [facility] Comment on above: Result Comment: PT D ISCHARGED Performed By: #### L 100.0100, L500.4050 #### [facility] [address] [place], [address] GLU Normal 74-[address] [facility] Comment on above: Result Comment: PT D ISCHARGED Performed By: #### L 100.0100, L500.4050 #### [facility] [address] [place], [address] Potassium Normal 3.5-5.[address] [facility] Comment on above: Result Comment: PT D ISCHARGED Performed By: #### L 100.0100, L500.4050 #### [facility] [address] [place], [address] T BILI Normal 0.20-1.[address] [facility] Comment on above: Result Comment: PT D ISCHARGED Performed By: #### L 100.0100, L500.4050 #### [facility] [address] [place], [address] T PROT Normal 6.4-8.[address] [facility] Comment on above: Result Comment: PT D ISCHARGED Performed By: #### L 100.0100, L500.4050 #### [facility] [address] [place], [address] Comprehensive Metabolic Profil Normal 136-[address] [facility] Comment on above: Result Comment: PT D ISCHARGED Performed By: #### L 100.0100, L500.4050 #### [facility] [address] [place], [address] 12 Lead EKGon 10-16-2024 12 Lead EKG [facility] Cardiovascular Services [address] [place] [address] 12 Lead EKG 10/16/24 0106 MR#: [id number] Acct: [id number] Name: CARINE BARBA Rep #: [id number] : 1990 34 From: Fly Love MD [...] Abnormal ECG Confirmed by FLY LOVE MD ([id number]), acquisition editor STEPH FAGAN ([id number]) on 10/18/2024 2:25:59 PM Referred By: TB Confirmed By: FLY LOVE MD 10/18/24 1426 Date Fly Love MD CC: Dr. Arjun Lagunas, DO; No Primary Care Physician Signed Normal [facility] Basic Metabolic Profile (BMP )on 10-16-2024 BUN/CRE 17.3 RATIO Normal 10-[address] [facility] Comment on above: Performed By: #### L 100.0100, L500.2500 ####[facility] [address] [place], [address] CA,Total 9.2 mg/dL Normal 8.5-10.[address] [facility] Comment on above: Performed By: #### L 100.0100, L500.2500 ####[facility] [address] [place], [address] Chloride [Moles/Vol] 105 mmol/L Normal 98-107 [facility] Comment on above: Performed By: #### L 100.0100, L500.2500 ####[facility] [address] [place], [address] CO2 [Moles/Vol] 27.0 mmol/L Normal 21.0-32.[address] [facility] Comment on above: Performed By: #### L 100.0100, L500.2500 ####[facility] [address] [place], [address] Creatinine [Mass/Vol] 0.87 mg/dL Normal 0.55-1.02 [facility] Comment on above: Result Comment: The validity of the calculated GFR GFRAA in patients over 70 years has not been determined. Clinical correlation is essential. Performed By: #### L 100.0100, L500.2500 ####[facility] [address] [place], [address] ECRCL 98.33 ml/min Normal [facility] Comment on above: Performed By: #### L 100.0100, L500.2500 ####[facility] [address] [place], [address] EST GFR - AA 96 mL/min Normal >[address] [facility] Comment on above: Result Comment: Afri can [place] GFR Calc Performed By: #### L 100.0100, L500.2500 ####[facility] [address] [place], [address] GAP 6 Normal 5-[address] [facility] Comment on above: Performed By: #### L 100.0100, L500.2500 ####[facility] [address] [place], [address] GFR/1.73 sq M.predicted among non-blacks MDRD (S/P/Bld) [Vol rate/Area] 80 mL/min/{1.73_m2} Normal >[address] [facility] Comment on above: Result Comment: Non- GFR Calc Performed By: #### L 100.0100, L500.2500 ####[facility] [address] [place], [address] Glucose [Mass/Vol] 122 mg/dL High 74-106 [facility] Comment on above: Result Comment: Fast ing Glucose result from 100 to 125 mg/dL suggests IMPAIRED HOMEOSTASIS per A.D.A. criteria. Performed By: #### L 100.0100, L500.2500 ####[facility] [address] [place], [address] Potassium [Moles/Vol] 3.8 mmol/L Normal 3.5-5.1 [facility] Comment on above: Performed By: #### L 100.0100, L500.2500 ####[facility] [address] [place], [address] Sodium [Moles/Vol] 138 mmol/L Normal 136-145 [facility] Comment on above: Performed By: #### L 100.0100, L500.2500 ####[facility] [address] [place], [address] Urea nitrogen [Mass/Vol] 15 mg/dL Normal 7-[address] [facility] Comment on above: Performed By: #### L 100.0100, L500.2500 ####[facility] [address] [place], [address] BUN/CRE 13.3 RATIO Normal 10-[address] [facility] Comment on above: Performed By: #### L 500.2500, L100.0100 ####[facility] [address] [place], [address] CA,Total 9.3 mg/dL Normal 8.5-10.[address] [facility] Comment on above: Performed By: #### L 500.2500, L100.0100 ####[facility] [address] [place], [address] Chloride [Moles/Vol] 103 mmol/L Normal 98-107 [facility] Comment on above: Performed By: #### L 500.2500, L100.0100 ####[facility] [address] [place], [address] CO2 [Moles/Vol] 28.0 mmol/L Normal 21.0-32.[address] [facility] Comment on above: Performed By: #### L 500.2500, L100.0100 ####[facility] [address] [place], [address] Creatinine [Mass/Vol] 0.98 mg/dL Normal 0.55-1.02 [facility] Comment on above: Result Comment: The validity of the calculated GFR GFRAA in patients over 70 years has not been determined. Clinical correlation is essential. Performed By: #### L 500.2500, L100.0100 ####[facility] [address] [place], [address] ECRCL 87.08 ml/min Normal [facility] Comment on above: Performed By: #### L 500.2500, L100.0100 ####[facility] [address] [place], [address] EST GFR - AA 84 mL/min Normal >[address] [facility] Comment on above: Result Comment: Afri can Chilean GFR Calc Performed By: #### L 500.2500, L100.0100 ####[facility] [address] [place], [address] GAP 7 Normal 5-[address] [facility] Comment on above: Performed By: #### L 500.2500, L100.0100 ####[facility] [address] [place], [address] GFR/1.73 sq M.predicted among non-blacks MDRD (S/P/Bld) [Vol rate/Area] 69 mL/min/{1.73_m2} Normal >[address] [facility] Comment on above: Result Comment: Non- GFR Calc Performed By: #### L 500.2500, L100.0100 ####[facility] [address] [place], [address] Glucose [Mass/Vol] 118 mg/dL High 74-106 [facility] Comment on above: Result Comment: Fast ing Glucose result from 100 to 125 mg/dL suggests IMPAIRED HOMEOSTASIS per A.D.A. criteria. Performed By: #### L 500.2500, L100.0100 ####[facility] [address] [place], [address] Potassium [Moles/Vol] 3.5 mmol/L Normal 3.5-5.1 [facility] Comment on above: Performed By: #### L 500.2500, L100.0100 ####[facility] [address] [place], [address] Sodium [Moles/Vol] 138 mmol/L Normal 136-145 [facility] Comment on above: Performed By: #### L 500.2500, L100.0100 ####[facility] [address] [place], [address] Urea nitrogen [Mass/Vol] 13 mg/dL Normal 7-[address] [facility] Comment on above: Performed By: #### L 500.2500, L100.0100 ####[facility] [address] [place], [address] CBC W/Diff, Automatedon 12-2 4-2023 Absolute Lymph 0.48 X10 3/uL Low 0.83-4.[address] [facility] Comment on above: Performed By: #### L 100.0100, L500.2500 ####[facility] [address] [place], [address] Absolute Neut 10.6 X10 3/uL High 2.0-7.[address] [facility] Comment on above: Performed By: #### L 100.0100, L500.2500 ####[facility] [address] [place], [address] Basophils/100 WBC (Bld) 0.1 % Normal 0-[address] [facility] Comment on above: Performed By: #### L 100.0100, L500.2500 ####[facility] [address] [place], [address] Eosinophils/100 WBC (Bld) 0.0 % Normal 0-[address] [facility] Comment on above: Performed By: #### L 100.0100, L500.2500 ####[facility] [address] [place], [address] Erythrocyte distribution width (RBC) [Ratio] 13.1 % Normal 11.6-14.[address] [facility] Comment on above: Performed By: #### L 100.0100, L500.2500 ####[facility] [address] [place], [address] Hematocrit (Bld) [Volume fraction] 42.5 % Normal 37-[address] [facility] Comment on above: Performed By: #### L 100.0100, L500.2500 ####[facility] [address] [place], [address] Hemoglobin (Bld) [Mass/Vol] 14.3 g/dL Normal 12.0-15.[address] [facility] Comment on above: Performed By: #### L 100.0100, L500.2500 ####[facility] [address] [place], [address] IG% 0.400 Normal 0.0-0.[address] [facility] Comment on above: Result Comment: IG% - Immature Granulocytes (promyelocytes, myelocytes and metamyelocytes) > 1% indicates that a LEFT SHIFT is Present. Performed By: #### L 100.0100, L500.2500 ####[facility] [address] [place], [address] Lymphocytes/100 WBC (Bld) 4.1 % Low 19-[address] [facility] Comment on above: Performed By: #### L 100.0100, L500.2500 ####[facility] [address] [place], [address] MCH (RBC) [Entitic mass] 32.5 pg High 27.0-32.[address] [facility] Comment on above: Performed By: #### L 100.0100, L500.2500 ####[facility] [address] [place], [address] MCHC (RBC) [Mass/Vol] 33.6 g/dL Normal 32-36 [facility] Comment on above: Performed By: #### L 100.0100, L500.2500 ####[facility] [address] [place], [address] MCV (RBC) [Entitic vol] 96.6 fL Normal 81-[address] [facility] Comment on above: Performed By: #### L 100.0100, L500.2500 ####[facility] [address] [place], [address] Monocytes/100 WBC (Bld) 5.1 % Normal 0-[address] [facility] Comment on above: Performed By: #### L 100.0100, L500.2500 ####[facility] [address] [place], [address] Neutrophils/100 WBC (Bld) 90.3 % High 47-[address] [facility] Comment on above: Performed By: #### L 100.0100, L500.2500 ####[facility] [address] [place], [address] Nucleated RBC (Bld) [#/Vol] 0 10*3/uL Normal 0-[address] [facility] Comment on above: Performed By: #### L 100.0100, L500.2500 ####[facility] [address] [place], [address] Platelet mean volume (Bld) [Entitic vol] 9.8 fL Normal 6.2-12.[address] [facility] Comment on above: Performed By: #### L 100.0100, L500.2500 ####[facility] [address] [place], [address] Platelets (Bld) [#/Vol] 252 10*3/uL Normal 150-[address] [facility] Comment on above: Performed By: #### L 100.0100, L500.2500 ####[facility] [address] [place], [address] RBC (Bld) [#/Vol] 4.40 10*6/uL Normal 4.2-5.4 [facility] Comment on above: Performed By: #### L 100.0100, L500.2500 ####[facility] [address] [place], [address] RDW SD 46.8 fl High 35.1-43.[address] [facility] Comment on above: Performed By: #### L 100.0100, L500.2500 ####[facility] [address] [place], [address] WBC (Bld) [#/Vol] 11.8 10*3/uL High 4.4-11.0 [facility] Comment on above: Performed By: #### L 100.0100, L500.2500 ####[facility] [address] [place], [address] Absolute Lymph 1.01 X10 3/uL Normal 0.83-4.[address] [facility] Comment on above: Performed By: #### L 500.2500, L100.0100 ####[facility] [address] [place], [address] Absolute Neut 8.7 X10 3/uL High 2.0-7.[address] [facility] Comment on above: Performed By: #### L 500.2500, L100.0100 ####[facility] [address] [place], [address] Basophils/100 WBC (Bld) 0.2 % Normal 0-[address] [facility] Comment on above: Performed By: #### L 500.2500, L100.0100 ####[facility] [address] [place], [address] Eosinophils/100 WBC (Bld) 0.0 % Normal 0-[address] [facility] Comment on above: Performed By: #### L 500.2500, L100.0100 ####[facility] [address] [place], [address] Erythrocyte distribution width (RBC) [Ratio] 13.0 % Normal 11.6-14.[address] [facility] Comment on above: Performed By: #### L 500.2500, L100.0100 ####[facility] [address] [place], [address] Hematocrit (Bld) [Volume fraction] 41.1 % Normal 37-[address] [facility] Comment on above: Performed By: #### L 500.2500, L100.0100 ####[facility] [address] [place], [address] Hemoglobin (Bld) [Mass/Vol] 13.9 g/dL Normal 12.0-15.[address] [facility] Comment on above: Performed By: #### L 500.2500, L100.0100 ####[facility] [address] [place], [address] IG% 0.500 Normal 0.0-0.[address] [facility] Comment on above: Result Comment: IG% - Immature Granulocytes (promyelocytes, myelocytes and metamyelocytes) > 1% indicates that a LEFT SHIFT is Present. Performed By: #### L 500.2500, L100.0100 ####[facility] [address] [place], [address] Lymphocytes/100 WBC (Bld) 9.8 % Low 19-[address] [facility] Comment on above: Performed By: #### L 500.2500, L100.0100 ####[facility] [address] [place], [address] MCH (RBC) [Entitic mass] 32.3 pg High 27.0-32.[address] [facility] Comment on above: Performed By: #### L 500.2500, L100.0100 ####[facility] [address] [place], [address] MCHC (RBC) [Mass/Vol] 33.8 g/dL Normal 32-36 [facility] Comment on above: Performed By: #### L 500.2500, L100.0100 ####[facility] [address] [place], [address] MCV (RBC) [Entitic vol] 95.6 fL Normal 81-[address] [facility] Comment on above: Performed By: #### L 500.2500, L100.0100 ####[facility] [address] [place], [address] Monocytes/100 WBC (Bld) 5.8 % Normal 0-10 [facility] Comment on above: Performed By: #### L 500.2500, L100.0100 ####[facility] [address] [place], [address] Neutrophils/100 WBC (Bld) 83.7 % High 47-[address] [facility] Comment on above: Performed By: #### L 500.2500, L100.0100 ####[facility] [address] [place], [address] Nucleated RBC (Bld) [#/Vol] 0 10*3/uL Normal 0-[address] [facility] Comment on above: Performed By: #### L 500.2500, L100.0100 ####[facility] [address] [place], [address] Platelet mean volume (Bld) [Entitic vol] 9.7 fL Normal 6.2-12.[address] [facility] Comment on above: Performed By: #### L 500.2500, L100.0100 ####[facility] [address] [place], [address] Platelets (Bld) [#/Vol] 245 10*3/uL Normal 150-[address] [facility] Comment on above: Performed By: #### L 500.2500, L100.0100 ####[facility] [address] [place], [address] RBC (Bld) [#/Vol] 4.30 10*6/uL Normal 4.2-5.4 [facility] Comment on above: Performed By: #### L 500.2500, L100.0100 ####[facility] [address] [place], [address] RDW SD 45.5 fl High 35.1-43.[address] [facility] Comment on above: Performed By: #### L 500.2500, L100.0100 ####[facility] [address] [place], [address] WBC (Bld) [#/Vol] 10.3 10*3/uL Normal 4.4-11.0 [facility] Comment on above: Performed By: #### L 500.2500, L100.0100 ####[facility] [address] [place], [address] Chest PA and Lateralon 10-16 Chest PA and Lateral [facility] Imaging Services [address] [place] [address] Chest PA and Lateral MR#: [id number] Acct: [id number] Name: CARINE BARBA Rep #: [id number] : 1990 F 34 From: Magdiel field MD PCP: Care Physician,No Primary Status: ADM IN Study: Chest PA and Lateral Date of Exam: 10/16/24 Exam# [id number] Ordering Dr: Fletcher Marie DO [id number] INDICATION: Shortness of breath EXAMINATION/TECHNIQUE : X-RAY [...] Fletcher Marie DO; No Primary Care Physician Reexaminer: Signed Normal [facility] Chest PA and Lateral [facility] Imaging Services [address] [place] [address] Chest PA and Lateral MR#: [id number] Acct: [id number] Name: CARINE BARBA Rep #: [id number] : 1990 F 34 From: Jason Dumont MD PCP: Care Physician,No Primary Status: REG ER Study: Chest PA and Lateral Date of Exam: 10/16/24 Exam# [id number] Ordering Dr: Arjun Lagunas DO [id number] EXAM: XR CHEST, 2 VIEWS CLINICAL INDICATION: [...] at 1:57 EST , CC: Dr. Arjun aLgunas DO; No Primary Care Physician Reexaminer: Signed Normal [facility] Emergency Department Summary on 10-16-[address] [facility] Medical Records Department [address] [place] [address] Emergency Department Summary 10/16/24 MR#: [id number] Acct: [id number] Name: CARINE BARBA Rep #: [id number] : 1990 34 From: Fletcher Marie DO [...] intact Psych: Cooperative, appropriate mood and affect [facility] Medical History Asthma Home Medications [...] endorsing impro (more content not included)... Normal [facility] Emergency Department Summary [facility] Medical Records Department [address] [place] [address] Emergency Department Summary 10/16/24 MR#: [id number] Acct: [id number] Name: CARINE BARBA Rep #: [id number] : 1990 34 From: Arjun Lagunas DO [...] evaluation management. Patient denies any recent travels. [facility] Medical History Asthma Home Medications [...] following commands knew that she was at [facility] years 2023 Skin: Warm, dry, intact [...] states that (more content not included)... Normal [facility] H AND P Exam - Hospitaliston 10-16-2024 H&P Exam - Hospitalist [facility] Medical Records Department [address] [place] [address] H P Exam - Hospitalist 10/16/242216 MR#: [id number] Acct: [id number] Name: CARINE BARBA Rep #: [id number] : 1990 34 From: Nimo Corral DO PCP: Care Physician,No Primary Status:DIS IN Location: [facility] SO042-7 HPI - General General Date of Admission: [...] an albuterol inhaler who now re-presents to [facility] ER complaining of continued shortness of breath, [...] is a same day admission and discharge. [facility] Medical History Asthma Home Medications ???Medication [...] 21:28 Tem (more content not included)... Normal [facility] Absolute lymphocyte counton 03-23-2022 Lymphocytes Auto (Unsp spec) [#/Vol] 1.63 10*3/uL 0.83-4.[address] [facility] Work Phone: [phone] Basophil percentageon 2021 Basophils/100 WBC (Bld) 0.2 % 0-[address] [facility] Work Phone: Chloride [Moles/Vol] 104 mmol/L 98-107 [facility] Work Phone: [phone] Eosinophils/100 WBC (Bld) 0.1 % 0-[address] [facility] Work Phone: [phone] Glucose [Mass/Vol] 156 mg/dL 74-106 [facility] Work Phone: [phone] Comment on above: Fasting Glucose resu lt greater than or equal to 126 mg/dL suggests DIABETES MELLITUS per A.D.A. criteria. Neutrophils (Bld) [#/Vol] 6.8 10*3/uL 2.0-7.[address] [facility] Work Phone: [phone] Neutrophils/100 WBC (Bld) 76.2 % 47-[address] [facility] Work Phone: [phone] Potassium [Moles/Vol] 3.2 mmol/L 3.5-5.1 [facility] Work Phone: [phone] Sodium [Moles/Vol] 136 mmol/L 136-145 [facility] Work Phone: WBC (Bld) [#/Vol] 9.0 10*3/uL 4.4-11.0 [facility] Work Phone: Blood erythrocytes count (nu mber/volume)on 03-23-2022 RBC (Bld) [#/Vol] 4.48 10*6/uL 4.2-5.4 [facility] Work Phone: Blood hemoglobin measurement (mass/volume)on 03-23-2022 Hemoglobin (Bld) [Mass/Vol] 14.3 g/dL 12.0-15.[address] [facility] Work Phone: Blood lymphocytes/100 leukoc yteson 03-23-2022 Lymphocytes/100 WBC (Bld) 18.2 % 19-[address] [facility] Work Phone: Blood monocytes/100 leukocyt eson 03-23-2022 Monocytes/100 WBC (Bld) 5.0 % 0-[address] [facility] Work Phone: Blood platelet mean volumeon 03-23-2022 Platelet mean volume (Bld) [Entitic vol] 10.4 fL 6.2-12.[address] [facility] Work Phone: Determination of erythrocyte mean corpuscular volume (MCV)on 03-23-2022 MCV (RBC) [Entitic vol] 93.8 fL 81-[address] [facility] Work Phone: Hematocrit Auto (Bld) [Volum e fraction]on 03-23-2022 Hematocrit (Bld) [Volume fraction] 42.0 % 37-[address] [facility] Work Phone: Laboratory - Chemistry and C hemistry - challengeon 03-23-2022 CO2 [Moles/Vol] 26.0 mmol/L 21.0-32.[address] [facility] Work Phone: Urea nitrogen/Creatinine [Mass ratio] 11.5 mg/mg 10-[address] [facility] Work Phone: Laboratory - Hematology and Cell countson 03-23-2022 Erythrocyte distribution width (RBC) [Entitic vol] 43.4 fL 35.1-43.[address] [facility] Work Phone: Erythrocyte distribution width (RBC) [Ratio] 12.6 % 11.6-14.[address] [facility] Work Phone: Immature granulocytes/100 WBC (Bld) 0.300 % 0.0-0.[address] [facility] Work Phone: Comment on above: IG% - Immature Granu locytes (promyelocytes, myelocytes and metamyelocytes) > 1% indicates that a LEFT SHIFT is Present. MCH (RBC) [Entitic mass] 31.9 pg 27.0-32.[address] [facility] Work Phone: Nucleated RBC/100 WBC (Bld) [Ratio] 0 % 0-[address] [facility] Work Phone: MCHC Auto (RBC) [Mass/Vol]on 03-23-2022 MCHC (RBC) [Mass/Vol] 34.0 g/dL 32-36 [facility] Work Phone: No Panel Informationon 03-23 D-Dimer Quantitative (PE/DVT) < 0.27 FEU/ug/m 0.27-0.[address] [facility] Work Phone: Comment on above: NORMAL D-Dimer level (<0.50) indicates no DVT or PE. Estimated Creatinine Clearance Calc 101.62 ml/min [facility] Work Phone: Estimated GFR (MDRD) Amer 111 mL/min >[address] [facility] Work Phone: Comment on above: GFR Calc Estimated GFR (MDRD) Non-Af Amer 91 mL/min >[address] [facility] Work Phone: Comment on above: Non- GFR Calc Troponin I High Sensitivity < 3 pg/mL 3.0-54.[address] [facility] Work Phone: Comment on above: Please Note: New Carmina t Units and Gender Specific Reference Ranges. For more information see Policy Stat Procedure [place] High Sensitivity Troponin (TNIH) and attachments. Platelets bldon 03-23-2022 Platelets (Bld) [#/Vol] 256 10*3/uL 150-[address] [facility] Work Phone: Serum or plasma calcium emily urement (mass/volume)on 03-23-2022 Calcium [Mass/Vol] 9.1 mg/dL 8.5-10.1 [facility] Work Phone: Serum or plasma creatinine m easurement (mass/volume)on 03-23-2022 Creatinine [Mass/Vol] 0.78 mg/dL 0.55-1.02 [facility] Work Phone: Comment on above: The validity of the calculated GFR & GFRAA in patients over 70 years has not been determined. Clinical correlation is essential. Serum or plasma urea nitroge n measurement (mass/volume)on 03-23-2022 Urea nitrogen [Mass/Vol] 9 mg/dL 7-[address] [facility] Work Phone: Thin prep Papanicolaou smear with manual screeningon 03-23-2022 Thin prep Papanicolaou smear with manual screening 6 5-[address] [facility] Work Phone: Basic Metabolic Panelon 06-24 Anion gap [Moles/Vol] 9 Normal [facility] Comment on above: Performed By: #### H RADHA BMP3 #### [facility] [address] [place] [address] Calcium [Mass/Vol] 9.0 mg/dL Normal 8.4-10.4 [facility] Comment on above: Performed By: #### H RADHA BMP3 #### [facility] [address] [place] [address] CO2 [Moles/Vol] 25 mmol/L Normal 22-30 [facility] Comment on above: Performed By: #### H RADHA BMP3 #### [facility] [address] [place] [address] Creatinine [Mass/Vol] 0.70 mg/dL Normal 0.52-1.25 [facility] Comment on above: Performed By: #### H RADHA BMP3 #### [facility] [address] [place] [address] GFR/1.73 sq M predicted among blacks MDRD (S/P/Bld) [Vol rate/Area] mL/min/{1.73_m2} Normal >60 [facility] Comment on above: Performed By: #### H RADHA BMP3 #### [facility] [address] [place] [address] GFR/1.73 sq M predicted among non-blacks MDRD (S/P/Bld) [Vol rate/Area] mL/min/{1.73_m2} Normal >60 [facility] Comment on above: Result Comment: KDIG [...] Performed By: #### H RADHA BMP3 #### [facility] [address] [place] [address] Glucose [Mass/Vol] 133 mg/dL High 70-100 [facility] Comment on above: Performed By: #### H RADHA BMP3 #### [facility] [address] [place] [address] Urea nitrogen [Mass/Vol] 11 mg/dL Normal 7-20 [facility] Comment on above: Performed By: #### H OLLIE GARCIA3 #### [facility] [address] [place] [address] Chloride [Moles/Vol] 104 mmol/L Normal 98-107 [facility] Comment on above: Performed By: #### H EMDF, BMP3 #### [facility] [address] [place] [address] Potassium [Moles/Vol] 4.1 mmol/L Normal 3.5-5.1 [facility] Comment on above: Performed By: #### H EMDF, BMP3 #### [facility] [address] [place] [address] Sodium [Moles/Vol] 138 mmol/L Normal 135-145 [facility] Comment on above: Performed By: #### H CHRISTYF, BMP3 #### [facility] [address] [place] [address] Anion gap [Moles/Vol] 9 mmol/L [place] Calcium [Mass/Vol] 9.0 mg/dL 8.4 - 10. 4 mg/dL [place] Chloride [Moles/Vol] 104 mmol/L 98 - 10 7 mmol/L [place] CO2 [Moles/Vol] 25 mmol/L 22 - 30 mmol/L [place] Creatinine [Mass/Vol] 0.7 mg/dL 0.52 - 1.25 mg/dL [place] EGFR IF NonAfrican [place] >90.0 >60 mL/min [place] Comment on above: KDIGO guidelines pro [...] MDRD (S/P/Bld) [Vol rate/Area] mL/min/{1.73_m2} >60 mL/min [place] Glucose [Mass/Vol] 133 mg/dL High 70 - 100 mg/dL [place] Interpretation and review of laboratory results Abnormal [place] Potassium [Moles/Vol] 4.1 mmol/L 3.5 - 5.1 mmol/L [place] Sodium [Moles/Vol] 138 mmol/L 135 - 145 mmol/L [place] Urea nitrogen [Mass/Vol] 11 mg/dL 7 - 20 mg/d L [place] Test Performed by [facility], [address] , [address] D-Dimer, Innovanceon 020 D-Dimer, Innovance 0.32 mg/L Normal <0.19-0.50 [facility] Comment on above: Result Comment: Inno singleton D-Dimer values of <0.50 mg/L FEU can be used in combination with a pre-test probability model (e.g. Well's) to exclude pulmonary embolism (PE) disease, as well as an aid in the diagnosis of deep vein thrombosis (DVT). Performed By: #### H [facility] #### [facility] [address] [place] [address] D-Dimer, Quantitativeon 06-24 D-Dimer, Quant 0.32 mg/L <0.19 - 0.50 [place] Comment on above: [place] D-Dimer va lues of <0.50 mg/L FEU can be used in combination with a pre-test probability model (e.g. Well's) to exclude pulmonary embolism (PE) disease, as well as an aid in the diagnosis of deep vein thrombosis (DVT). Test Performed by [facility], [address] , [address] [facility] [place], [place] Hemogram (CBC) w/Auto Diffon 07-05-2020 Absolute Baso # 0.0 10*3/uL 0 - 0.2 10*3/uL [place] Absolute Neut # 5.2 10*3/uL 1.8 - 7 10*3/uL [place] Basophils/100 WBC (Bld) 0.5 % 0 - 2 % [place] Eosinophils (Bld) [#/Vol] 0.3 10*3/uL 0 - 0.5 10*3/uL [place] Eosinophils/100 WBC (Bld) 4.6 % 1 - 6 % [place] Erythrocyte distribution width (RBC) [Ratio] 13.7 % 11.5 - 14.5 % [place] Granulocytes/100 WBC (Bld) 70.3 % 40 - 80 % [place] Hematocrit (Bld) [Volume fraction] 40.1 % 35 - 47 % [place] Hemoglobin (Bld) [Mass/Vol] 13.8 g/dL 11.7 - 16 g/dL [place] Interpretation and review of laboratory results Abnormal [place] Lymphocytes (Bld) [#/Vol] 1.4 10*3/uL 1 - 4.3 10*3/uL [place] Lymphocytes/100 WBC (Bld) 18.6 % Low 20 - 40 % [place] MCH (RBC) [Entitic mass] 32.7 pg 26 - 34 pg [place] MCHC (RBC) [Mass/Vol] 34.4 % 32 - 36 % [place] MCV (RBC) [Entitic vol] 95.1 fL 79 - 98 fL [place] Monocytes (Bld) [#/Vol] 0.4 10*3/uL 0 - 0.8 10*3/uL [place] Monocytes/100 WBC (Bld) 6.0 % 2 - 10 % [place] Platelet mean volume (Bld) [Entitic vol] 8.4 fL 7.4 - 10.4 fL [place] Platelets (Bld) [#/Vol] 201 10*3/uL 140 - 440 10*3/uL [place] RBC (Bld) [#/Vol] 4.21 10*6/uL 3.8 - 5.2 10*6/uL [place] WBC (Bld) [#/Vol] 7.4 10*3/uL 3.6 - 10.7 10*3/uL [place] Test Performed by [facility], [address] , [place], [place] [address] [place] Hemogram w/ Autodiffon 07-05 Abs Baso Cnt 0.0 10*3/uL Normal 0.0-0.2 [facility] Comment on above: Performed By: #### H EMDF, BMP3 #### [facility] [address] [place] [address] Abs Neutrophile Cnt 5.2 10*3/uL Normal 1.8-7.0 [facility] Comment on above: Performed By: #### H EMDF, BMP3 #### [facility] [address] [place] [address] Basophils/100 WBC (Bld) 0.5 % Normal 0.0-2.0 [facility] Comment on above: Performed By: #### H EMDF, BMP3 #### [facility] [address] [place] [address] Eosinophils (Bld) [#/Vol] 0.3 10*3/uL Normal 0.0-0.5 [facility] Comment on above: Performed By: #### H EMDF, BMP3 #### [facility] [address] [place] [address] Eosinophils/100 WBC (Bld) 4.6 % Normal 1.0-6.0 [facility] Comment on above: Performed By: #### H EMDF, BMP3 #### [facility] [address] [place] [address] Erythrocyte distribution width (RBC) [Ratio] 13.7 % Normal 11.5-14.5 [facility] Comment on above: Performed By: #### H EMDF, BMP3 #### [facility] [address] [place] [address] Granulocytes/100 WBC (Bld) 70.3 % Normal 40.0-80.0 [facility] Comment on above: Performed By: #### H EMDF, BMP3 #### [facility] [address] [place] [address] Hematocrit (Bld) [Volume fraction] 40.1 % Normal 35.0-47.0 [facility] Comment on above: Performed By: #### H EMDF BMP3 #### [facility] [address] [place] [address] Hemoglobin (Bld) [Mass/Vol] 13.8 g/dL Normal 11.7-16.0 [facility] Comment on above: Performed By: #### H RADHA BMP3 #### [facility] [address] [place] [address] Lymphocytes (Bld) [#/Vol] 1.4 10*3/uL Normal 1.0-4.3 [facility] Comment on above: Performed By: #### H RADHA BMP3 #### [facility] [address] [place] [address] Lymphocytes/100 WBC (Bld) 18.6 % Low 20.0-40.0 [facility] Comment on above: Performed By: #### H CHRISTYF, BMP3 #### [facility] [address] [place] [address] MCH (RBC) [Entitic mass] 32.7 pg Normal 26.0-34.0 [facility] Comment on above: Performed By: #### H EMDF, BMP3 #### [facility] [address] [place] [address] MCHC (RBC) [Mass/Vol] 34.4 % Normal 32.0-36.0 [facility] Comment on above: Performed By: #### H EMDF, BMP3 #### [facility] [address] [place] [address] MCV (RBC) [Entitic vol] 95.1 fL Normal 79.0-98.0 [facility] Comment on above: Performed By: #### H RADHA BMP3 #### [facility] [address] [place] [address] Monocytes (Bld) [#/Vol] 0.4 10*3/uL Normal 0.0-0.8 [facility] Comment on above: Performed By: #### Aidan GARCIA BMP3 #### [facility] [address] [place] [address] Monocytes/100 WBC (Bld) 6.0 % Normal 2.0-10.0 [facility] Comment on above: Performed By: #### Aidan GARCIA BMP3 #### [facility] [address] [place] [address] Platelet mean volume (Bld) [Entitic vol] 8.4 fL Normal 7.4-10.4 [facility] Comment on above: Performed By: #### Aidan GARCIA BMP3 #### [facility] [address] [place] [address] Platelets (Bld) [#/Vol] 201 10*3/uL Normal 140-440 [facility] Comment on above: Performed By: #### Aidan GARCIA BMP3 #### [facility] [address] [place] [address] RBC (Bld) [#/Vol] 4.21 10*6/uL Normal 3.80-5.20 [facility] Comment on above: Performed By: #### Aidan GARCIA BMP3 #### [facility] [address] [place] [address] WBC (Bld) [#/Vol] 7.4 10*3/uL Normal 3.6-10.7 [facility] Comment on above: Performed By: #### Aidan GARCIA BMP3 #### [facility] [address] [place] [address] Troponin Ion 07-05-2020 Troponin I.cardiac [Mass/Vol] ng/mL Normal 0.000-0.034 [facility] Comment on above: Result Comment: . Performed By: #### H EMDF, BMP3 #### [facility] [address] [place] [address] Troponin x1on 07-05-2020 Troponin I.cardiac [Mass/Vol] ng/mL 0 - 0.034 ng/mL [place] Comment on above: . Test Performed by [facility], [address] , [place], [place] [address] [place] [address] Basic Metabolic Panelon 05-24 Anion gap [Moles/Vol] 10 Normal [facility] Comment on above: Performed By: #### H EMDF, BMP3, DDI2 #### [facility] [address] [place] [address] Calcium [Mass/Vol] 9.2 mg/dL Normal 8.4-10.4 [facility] Comment on above: Performed By: #### H EMDF, BMP3, DDI2 #### [facility] [address] [place] [address] CO2 [Moles/Vol] 25 mmol/L Normal 22-30 [facility] Comment on above: Performed By: #### H EMDF, BMP3, DDI2 #### [facility] [address] [place] [address] Creatinine [Mass/Vol] 0.69 mg/dL Normal 0.52-1.25 [facility] Comment on above: Performed By: #### H EMDF, BMP3, DDI2 #### [facility] [address] [place] [address] GFR/1.73 sq M predicted among blacks MDRD (S/P/Bld) [Vol rate/Area] mL/min/{1.73_m2} Normal >60 [facility] Comment on above: Performed By: #### H EMDF, BMP3, DDI2 #### [facility] [address] [place] [address] GFR/1.73 sq M predicted among non-blacks MDRD (S/P/Bld) [Vol rate/Area] mL/min/{1.73_m2} Normal >60 [facility] Comment on above: Result Comment: KDIG [...] By: #### H EMDF, BMP3, DDI2 #### [facility] [address] [place] [address] Glucose [Mass/Vol] 99 mg/dL Normal 70-100 [facility] Comment on above: Performed By: #### H EMDF, BMP3, DDI2 #### [facility] [address] [place] [address] Urea nitrogen [Mass/Vol] 10 mg/dL Normal 7-20 [facility] Comment on above: Performed By: #### H EMDF, BMP3, DDI2 #### [facility] [address] [place] [address] Chloride [Moles/Vol] 104 mmol/L Normal 98-107 [facility] Comment on above: Performed By: #### H EMDF, BMP3, DDI2 #### [facility] [address] [place] [address] Potassium [Moles/Vol] 3.9 mmol/L Normal 3.5-5.1 [facility] Comment on above: Performed By: #### H EMDF, BMP3, DDI2 #### [facility] [address] [place] [address] Sodium [Moles/Vol] 139 mmol/L Normal 135-145 [facility] Comment on above: Performed By: #### H EMDF, BMP3, DDI2 #### [facility] [address] [place] [address] Anion gap [Moles/Vol] 10 mmol/L [place] Calcium [Mass/Vol] 9.2 mg/dL 8.4 - 10. 4 mg/dL [place] Chloride [Moles/Vol] 104 mmol/L 98 - 10 7 mmol/L [place] CO2 [Moles/Vol] 25 mmol/L 22 - 30 mmol/L [place] Creatinine [Mass/Vol] 0.69 mg/dL 0.52 - 1.25 mg/dL [place] EGFR IF NonAfrican [place] >90.0 >60 mL/min [place] Comment on above: KDIGO guidelines pro [...] MDRD (S/P/Bld) [Vol rate/Area] mL/min/{1.73_m2} >60 mL/min [place] Glucose [Mass/Vol] 99 mg/dL 70 - 100 mg/dL [place] Potassium [Moles/Vol] 3.9 mmol/L 3.5 - 5.1 mmol/L [place] Sodium [Moles/Vol] 139 mmol/L 135 - 145 mmol/L [place] Urea nitrogen [Mass/Vol] 10 mg/dL 7 - 20 mg/d L [place] Test Performed by [facility], [address] , [place], [place] [address] [facility] [place] CR Chest PA/LATon 06-08-2020 CR Chest PA/LAT Patient Name: CARINE BARBA Diagnostic Radiology Exam Date/Time 06/08/2020 03:45:52 EDT Exam CR Chest PA/LAT Ordering Physician MD JIM, ANCA Accession Number [id number] CPT4 Codes 33723 () Reason For Exam sob Report CHEST [...] Transcribed Date and Time: 06/08/2020 4:14 Normal [facility] D-Dimer, Innovanceon 020 D-Dimer, Innovance 0.32 mg/L Normal <0.19-0.50 [facility] Comment on above: Result Comment: Inno singleton D-Dimer values of <0.50 mg/L FEU can be used in combination with a pre-test probability model (e.g. Well's) to exclude pulmonary embolism (PE) disease, as well as an aid in the diagnosis of deep vein thrombosis (DVT). Performed By: #### H EMDF, BMP3, DDI2 #### [facility] [address] [place] [address] D-Dimer, Quantitativeon 05-24 D-Dimer, Quant 0.32 mg/L <0.19 - 0.50 [facility] [place] Comment on above: Innovance D-Dimer va lues of <0.50 mg/L FEU can be used in combination with a pre-test probability model (e.g. Well's) to exclude pulmonary embolism (PE) disease, as well as an aid in the diagnosis of deep vein thrombosis (DVT). Test Performed by [facility], [address] , [place], [place] [address] [place] [address] Hemogram (CBC) w/Auto Diffon 06-08-2020 Absolute Baso # 0.0 10*3/uL 0 - 0.2 10*3/uL [place] Absolute Neut # 4.4 10*3/uL 1.8 - 7 10*3/uL [place] Basophils/100 WBC (Bld) 0.5 % 0 - 2 % [place] Eosinophils (Bld) [#/Vol] 0.6 10*3/uL High 0 - 0.5 10*3/uL [place] Eosinophils/100 WBC (Bld) 7.6 % High 1 - 6 % [place] Erythrocyte distribution width (RBC) [Ratio] 14.0 % 11.5 - 14.5 % [place] Granulocytes/100 WBC (Bld) 57.2 % 40 - 80 % [place] Hematocrit (Bld) [Volume fraction] 40.4 % 35 - 47 % [place] Hemoglobin (Bld) [Mass/Vol] 13.8 g/dL 11.7 - 16 g/dL [place] Interpretation and review of laboratory results Abnormal [place] Lymphocytes (Bld) [#/Vol] 2.2 10*3/uL 1 - 4.3 10*3/uL [place] Lymphocytes/100 WBC (Bld) 28.3 % 20 - 40 % [place] MCH (RBC) [Entitic mass] 32.7 pg 26 - 34 pg [place] MCHC (RBC) [Mass/Vol] 34.2 % 32 - 36 % [place] MCV (RBC) [Entitic vol] 95.6 fL 79 - 98 fL [place] Monocytes (Bld) [#/Vol] 0.5 10*3/uL 0 - 0.8 10*3/uL [place] Monocytes/100 WBC (Bld) 6.4 % 2 - 10 % [place] Platelet mean volume (Bld) [Entitic vol] 8.2 fL 7.4 - 10.4 fL [place] Platelets (Bld) [#/Vol] 249 10*3/uL 140 - 440 10*3/uL [place] RBC (Bld) [#/Vol] 4.22 10*6/uL 3.8 - 5.2 10*6/uL [place] WBC (Bld) [#/Vol] 7.7 10*3/uL 3.6 - 10.7 10*3/uL [place] Test Performed by [facility], [address] , [place], [place] [id number] [place] [address] Hemogram w/ Autodiffon 06-08 Abs Baso Cnt 0.0 10*3/uL Normal 0.0-0.2 [facility] Comment on above: Performed By: #### H EMDF, BMP3, DDI2 #### [facility] [address] [place] [address] Abs Neutrophile Cnt 4.4 10*3/uL Normal 1.8-7.0 [facility] Comment on above: Performed By: #### H EMDF, BMP3, DDI2 #### [facility] [address] [place] [address] Basophils/100 WBC (Bld) 0.5 % Normal 0.0-2.0 [facility] Comment on above: Performed By: #### H EMDF, BMP3, DDI2 #### [facility] [address] [place] [address] Eosinophils (Bld) [#/Vol] 0.6 10*3/uL High 0.0-0.5 [facility] Comment on above: Performed By: #### H EMDF, BMP3, DDI2 #### [facility] [address] [place] [address] Eosinophils/100 WBC (Bld) 7.6 % High 1.0-6.0 [facility] Comment on above: Performed By: #### H RADHA BMP3, DDI2 #### [facility] [address] [place] [address] Erythrocyte distribution width (RBC) [Ratio] 14.0 % Normal 11.5-14.5 [facility] Comment on above: Performed By: #### H EMDMeagan, BMP3, DDI2 #### [facility] [address] [place] [address] Granulocytes/100 WBC (Bld) 57.2 % Normal 40.0-80.0 [facility] Comment on above: Performed By: #### H EMDMeagan, BMP3, DDI2 #### [facility] [address] [place] [address] Hematocrit (Bld) [Volume fraction] 40.4 % Normal 35.0-47.0 [facility] Comment on above: Performed By: #### H EMDMeagan, BMP3, DDI2 #### [facility] [address] [place] [address] Hemoglobin (Bld) [Mass/Vol] 13.8 g/dL Normal 11.7-16.0 [facility] Comment on above: Performed By: #### H EMDF, BMP3, DDI2 #### [facility] [address] [place] [address] Lymphocytes (Bld) [#/Vol] 2.2 10*3/uL Normal 1.0-4.3 [facility] Comment on above: Performed By: #### H EMDF, BMP3, DDI2 #### [facility] [address] [place] [address] Lymphocytes/100 WBC (Bld) 28.3 % Normal 20.0-40.0 [facility] Comment on above: Performed By: #### H EMDF, BMP3, DDI2 #### [facility] [address] [place] [address] MCH (RBC) [Entitic mass] 32.7 pg Normal 26.0-34.0 [facility] Comment on above: Performed By: #### H EMDF, BMP3, DDI2 #### [facility] [address] [place] [address] MCHC (RBC) [Mass/Vol] 34.2 % Normal 32.0-36.0 [facility] Comment on above: Performed By: #### H EMDF, BMP3, DDI2 #### [facility] [address] [place] [address] MCV (RBC) [Entitic vol] 95.6 fL Normal 79.0-98.0 [facility] Comment on above: Performed By: #### H EMDF, BMP3, DDI2 #### [facility] [address] [place] [address] Monocytes (Bld) [#/Vol] 0.5 10*3/uL Normal 0.0-0.8 [facility] Comment on above: Performed By: #### H EMDF, BMP3, DDI2 #### [facility] [address] [place] [address] Monocytes/100 WBC (Bld) 6.4 % Normal 2.0-10.0 [facility] Comment on above: Performed By: #### H EMDF, BMP3, DDI2 #### [facility] [address] [place] [address] Platelet mean volume (Bld) [Entitic vol] 8.2 fL Normal 7.4-10.4 [facility] Comment on above: Performed By: #### H EMDF, BMP3, DDI2 #### [facility] [address] [place] [address] Platelets (Bld) [#/Vol] 249 10*3/uL Normal 140-440 [facility] Comment on above: Performed By: #### H EMDF, BMP3, DDI2 #### [facility] [address] [place] [address] RBC (Bld) [#/Vol] 4.22 10*6/uL Normal 3.80-5.20 [facility] Comment on above: Performed By: #### H EMDF, BMP3, DDI2 #### [facility] [address] [place] [address] WBC (Bld) [#/Vol] 7.7 10*3/uL Normal 3.6-10.7 [facility] Comment on above: Performed By: #### H EMDF, BMP3, DDI2 #### [facility] [address] [place] [address] Troponin Ion 06-08-2020 Troponin I.cardiac [Mass/Vol] ng/mL Normal 0.000-0.034 [facility] Comment on above: Result Comment: . Performed By: #### H EMDF, BMP3 #### [facility] [address] [place] [address] Troponin x1on 06-08-2020 Troponin I.cardiac [Mass/Vol] ng/mL 0 - 0.034 ng/mL [place] Comment on above: . Test Performed by [facility], [address] , [place], [place] [address] [place] XR CHEST (2 VW)on 06-08-2020 Patient Name: CARINE BARBA ---Diagnostic Radiology--- Exam Date/Time 06/08/2020 03:45:52 EDT Exam CR Chest PA/LAT Ordering Physician MD JIM, ANCA Accession Number [id number] CPT4 Codes 26690 () Reason For Exam sob Report CHEST [...] I Transcribed Date and Time: 06/08/2020 4:14 [place], [facility] Incoming Radiology Results From [facility] - 06/08/2020 4:15 AM EDT Patient Name: CARINE BARBA ---Diagnostic Radiology--- Exam Date/Time 06/08/2020 03:45:52 EDT Exam CR Chest PA/LAT Ordering Physician MD JIM, [facility] Accession Number [id number] CPT4 Codes 22565 () Reason For Exam sob Report CHEST [...] I Transcribed Date and Time: 06/08/2020 4:14 [place] Basic Metabolic Panelon 07-0 Anion gap [Moles/Vol] 13 Normal [facility] Comment on above: Performed By: #### H RADHA BMP3 #### [facility] [address] [place] [address] Calcium [Mass/Vol] 8.8 mg/dL Normal 8.4-10.4 [facility] Comment on above: Performed By: #### H RADHA BMP3 #### [facility] [address] [place] [address] CO2 [Moles/Vol] 22 mmol/L Normal 22-30 [facility] Comment on above: Performed By: #### H RADHA BMP3 #### [facility] [address] [place] [address] Glucose [Mass/Vol] 121 mg/dL High 70-100 [facility] Comment on above: Performed By: #### H RADHA BMP3 #### [facility] [address] [place] [address] Urea nitrogen [Mass/Vol] 18 mg/dL Normal 7-20 [facility] Comment on above: Performed By: #### H OLLIE GARCIA3 #### [facility] [address] [place] [address] Creatinine [Mass/Vol] 0.63 mg/dL Normal 0.52-1.25 [facility] Comment on above: Performed By: #### H RADHA BMP3 #### [facility] [address] [place] [address] GFR/1.73 sq M predicted among blacks MDRD (S/P/Bld) [Vol rate/Area] mL/min/{1.73_m2} Normal >60 [facility] Comment on above: Performed By: #### H OLLIE GARCIA3 #### [facility] [address] [place] [address] GFR/1.73 sq M predicted among non-blacks MDRD (S/P/Bld) [Vol rate/Area] mL/min/{1.73_m2} Normal >60 [facility] Comment on above: Result Comment: KDIG [...] Performed By: #### H RADHA BMP3 #### [facility] [address] [place] [address] Chloride [Moles/Vol] 106 mmol/L Normal 98-107 [facility] Comment on above: Performed By: #### H RADHA BMP3 #### [facility] [address] [place] [address] Potassium [Moles/Vol] 3.4 mmol/L Low 3.5-5.1 [facility] Comment on above: Performed By: #### H RADHA BMP3 #### [facility] [address] [place] [address] Sodium [Moles/Vol] 140 mmol/L Normal 135-145 [facility] Comment on above: Performed By: #### H RADHA BMP3 #### [facility] [address] [place] [address] Anion gap [Moles/Vol] 13 mmol/L [place] Calcium [Mass/Vol] 8.8 mg/dL 8.4 - 10. 4 mg/dL [place] Chloride [Moles/Vol] 106 mmol/L 98 - 10 7 mmol/L [place] CO2 [Moles/Vol] 22 mmol/L 22 - 30 mmol/L [place] Creatinine [Mass/Vol] 0.63 mg/dL 0.52 - 1.25 mg/dL [place] EGFR IF NonAfrican [place] >90.0 >60 mL/min [place] Comment on above: KDIGO guidelines pro [...] MDRD (S/P/Bld) [Vol rate/Area] mL/min/{1.73_m2} >60 mL/min [place] Glucose [Mass/Vol] 121 mg/dL High 70 - 100 mg/dL [place] Interpretation and review of laboratory results Abnormal [place] Potassium [Moles/Vol] 3.4 mmol/L Low 3.5 - 5.1 mmol/L [place] Sodium [Moles/Vol] 140 mmol/L 135 - 145 mmol/L [place] Urea nitrogen [Mass/Vol] 18 mg/dL 7 - 20 mg/d L [place] Test Performed by [facility], [address] [place] [address] , [address] CR Chest Portableon 04-29-20 20 CR Chest Portable Patient Name: CARINE BARBA Diagnostic Radiology Exam Date/Time 04/29/2020 10:39:47 EDT Exam CR Chest Portable Ordering Physician MD JUSTO, NIMO Munson Accession Number [id number] CPT4 Codes 10273 () Reason For Exam respiratory distress Report [...] Transcribed Date and Time: 04/29/2020 11:08 Normal [facility] Hemogram (CBC) w/Auto Diffon 04-29-2020 Absolute Baso # 0.1 10*3/uL 0 - 0.2 10*3/uL [place] Absolute Neut # 6.6 10*3/uL 1.8 - 7 10*3/uL [place] Basophils/100 WBC (Bld) 0.6 % 0 - 2 % [place] Eosinophils (Bld) [#/Vol] 1.0 10*3/uL High 0 - 0.5 10*3/uL [place] Eosinophils/100 WBC (Bld) 9.9 % High 1 - 6 % [place] Erythrocyte distribution width (RBC) [Ratio] 13.7 % 11.5 - 14.5 % [place] Granulocytes/100 WBC (Bld) 66.0 % 40 - 80 % [place] Hematocrit (Bld) [Volume fraction] 40.8 % 35 - 47 % [place] Hemoglobin (Bld) [Mass/Vol] 14.2 g/dL 11.7 - 16 g/dL [place] Interpretation and review of laboratory results Abnormal [place] Lymphocytes (Bld) [#/Vol] 1.8 10*3/uL 1 - 4.3 10*3/uL [place] Lymphocytes/100 WBC (Bld) 18.1 % Low 20 - 40 % [place] MCH (RBC) [Entitic mass] 33.0 pg 26 - 34 pg [place] MCHC (RBC) [Mass/Vol] 34.7 % 32 - 36 % [place] MCV (RBC) [Entitic vol] 95.0 fL 79 - 98 fL [place] Monocytes (Bld) [#/Vol] 0.5 10*3/uL 0 - 0.8 10*3/uL [place] Monocytes/100 WBC (Bld) 5.4 % 2 - 10 % [place] Platelet mean volume (Bld) [Entitic vol] 8.4 fL 7.4 - 10.4 fL [place] Platelets (Bld) [#/Vol] 237 10*3/uL 140 - 440 10*3/uL [place] RBC (Bld) [#/Vol] 4.30 10*6/uL 3.8 - 5.2 10*6/uL [place] WBC (Bld) [#/Vol] 10.0 10*3/uL 3.6 - 10.7 10*3/uL [facility], [place] Test Performed by [facility], [address] , [place], [place] [id number] [place] [address], [place] Hemogram w/ Autodiffon 04-29 Abs Baso Cnt 0.1 10*3/uL Normal 0.0-0.2 [facility] Comment on above: Performed By: #### H RADHA BMP3 #### [facility] [address] [place] [address] Abs Neutrophile Cnt 6.6 10*3/uL Normal 1.8-7.0 [facility] Comment on above: Performed By: #### H RADHA BMP3 #### [facility] [address] [place] [address] Basophils/100 WBC (Bld) 0.6 % Normal 0.0-2.0 S [facility] Comment on above: Performed By: #### H RADHA BMP3 #### [facility] [address] [place] [address] Eosinophils (Bld) [#/Vol] 1.0 10*3/uL High 0.0-0.5 [facility] Comment on above: Performed By: #### H RADHA BMP3 #### [facility] [address] [place] [address] Eosinophils/100 WBC (Bld) 9.9 % High 1.0-6.0 [facility] Comment on above: Performed By: #### H RADHA BMP3 #### [facility] [address] [place] [address] Erythrocyte distribution width (RBC) [Ratio] 13.7 % Normal 11.5-14.5 [facility] Comment on above: Performed By: #### H RADHA BMP3 #### [facility] [address] [place] [address] Granulocytes/100 WBC (Bld) 66.0 % Normal 40.0-80.0 [facility] Comment on above: Performed By: #### H RADHA BMP3 #### [facility] [address] [address] Hematocrit (Bld) [Volume fraction] 40.8 % Normal 35.0-47.0 [facility] Comment on above: Performed By: #### H RADHA BMP3 #### [facility] [address] [place] [address] Hemoglobin (Bld) [Mass/Vol] 14.2 g/dL Normal 11.7-16.0 [facility] Comment on above: Performed By: #### H RADHA BMP3 #### [facility] [address] [place] [address] Lymphocytes (Bld) [#/Vol] 1.8 10*3/uL Normal 1.0-4.3 [facility] Comment on above: Performed By: #### H RADHA BMP3 #### [facility] [address] [place] [address] Lymphocytes/100 WBC (Bld) 18.1 % Low 20.0-40.0 [facility] Comment on above: Performed By: #### H RADHA BMP3 #### [facility] [address] [place] [address] MCH (RBC) [Entitic mass] 33.0 pg Normal 26.0-34.0 [facility] Comment on above: Performed By: #### H RADHA BMP3 #### [facility] [address] [place] [address] MCHC (RBC) [Mass/Vol] 34.7 % Normal 32.0-36.0 [facility] Comment on above: Performed By: #### H RADHA BMP3 #### [facility] [address] [place] [address] MCV (RBC) [Entitic vol] 95.0 fL Normal 79.0-98.0 [facility] Comment on above: Performed By: #### H RADHA, BMP3 #### [facility] [address] [place] [address] Monocytes (Bld) [#/Vol] 0.5 10*3/uL Normal 0.0-0.8 [facility] Comment on above: Performed By: #### H EMDF, BMP3 #### [facility] [address] [place] [address] Monocytes/100 WBC (Bld) 5.4 % Normal 2.0-10.0 [facility] Comment on above: Performed By: #### H EMDF, BMP3 #### [facility] [address] [place] [address] Platelet mean volume (Bld) [Entitic vol] 8.4 fL Normal 7.4-10.4 [facility] Comment on above: Performed By: #### H EMDF, BMP3 #### [facility] [address] [place] [address] Platelets (Bld) [#/Vol] 237 10*3/uL Normal 140-440 [facility] Comment on above: Performed By: #### H EMDF, BMP3 #### [facility] [address] [place] [address] RBC (Bld) [#/Vol] 4.30 10*6/uL Normal 3.80-5.20 [facility] Comment on above: Performed By: #### H EMDF, BMP3 #### [facility] [address] [place] [address] WBC (Bld) [#/Vol] 10.0 10*3/uL Normal 3.6-10.7 [facility] Comment on above: Performed By: #### H EMDF, BMP3 #### [facility] [address] [place] [address] XR CHEST PORTABLEon 04-29-20 [place], [facility] Incoming Radiology Results From [facility] - 04/29/2020 11:08 AM EDT Patient Name: CARINE BARBA ---Diagnostic Radiology--- Exam Date/Time 04/29/2020 10:39:47 EDT Exam CR Chest Portable Ordering Physician MD JUSTO, NIMO Munson Accession Number [id number] CPT4 Codes 04282 () Reason For Exam respiratory distress Report [...] NICHOLAS Transcribed Date and Time: 04/29/2020 11:08 [place] Patient Name: CARINE BARBA ---Diagnostic Radiology--- Exam Date/Time 04/29/2020 10:39:47 EDT Exam CR Chest Portable Ordering Physician MD JUSTO, NIMO Munson Accession Number [id number] CPT4 Codes 55981 () Reason For Exam respiratory distress Report [...] NICHOLAS Transcribed Date and Time: 04/29/2020 11:08 [place] Basic Metabolic Panelon 01- Anion gap [Moles/Vol] 10 Normal [facility] Comment on above: Performed By: #### H RADHA BMP3 #### [facility] [address] [place] [address] Calcium [Mass/Vol] 8.8 mg/dL Normal 8.4-10.4 [facility] Comment on above: Performed By: #### H RADHA BMP3 #### [facility] [address] [place] [address] CO2 [Moles/Vol] 26 mmol/L Normal 22-30 [facility] Comment on above: Performed By: #### H EMDF, BMP3 #### [facility] [address] [place] [address] Glucose [Mass/Vol] 112 mg/dL High 70-100 [facility] Comment on above: Performed By: #### H RADHA BMP3 #### [facility] [address] [place] [address] Urea nitrogen [Mass/Vol] 16 mg/dL Normal 7-20 [facility] Comment on above: Performed By: #### H RADHA BMP3 #### [facility] [address] [place] [address] Creatinine [Mass/Vol] 0.72 mg/dL Normal 0.52-1.25 [facility] Comment on above: Performed By: #### H RADHA BMP3 #### [facility] [address] [place] [address] GFR/1.73 sq M predicted among blacks MDRD (S/P/Bld) [Vol rate/Area] mL/min/{1.73_m2} Normal >60 [facility] Comment on above: Performed By: #### H RADHA BMP3 #### [facility] [address] [place] [address] GFR/1.73 sq M predicted among non-blacks MDRD (S/P/Bld) [Vol rate/Area] mL/min/{1.73_m2} Normal >60 [facility] Comment on above: Result Comment: Sour ce- MDRD equation with creatinine calibration to IDMS(NKDEP) eGFR not recommended for drug dose adjustment Performed By: #### H RADHA BMP3 #### [facility] [address] [place] [address] Chloride [Moles/Vol] 103 mmol/L Normal 98-107 [facility] Comment on above: Performed By: #### H RADHA BMP3 #### [facility] [address] [place] [address] Potassium [Moles/Vol] 3.6 mmol/L Normal 3.5-5.1 [facility] Comment on above: Performed By: #### H RADHA BMP3 #### [facility] [address] [place] [address] Sodium [Moles/Vol] 139 mmol/L Normal 135-145 [facility] Comment on above: Performed By: #### H OLLIE GARCIA3 #### [facility] [address] [facility] [place] [address] Basic Metabolic PanelOrdered By: David Granger on 11-11-2019 Anion gap [Moles/Vol] 10 mmol/L [facility] Work Phone: Calcium [Mass/Vol] 8.8 mg/dL 8.4 - 10. 4 mg/dL [facility] Work Phone: Chloride [Moles/Vol] 103 mmol/L 98 - 10 7 mmol/L [facility] Work Phone: CO2 [Moles/Vol] 26 mmol/L 22 - 30 mmol/L [facility] Work Phone: Creatinine [Mass/Vol] 0.72 mg/dL 0.52 - 1.25 mg/dL [facility] Work Phone: EGFR IF NonAfrican [place] >60.0 >60 mL/min [facility] Work Phone: Comment on above: Source- MDRD equatio n with creatinine calibration to IDMS(NKDEP) eGFR not recommended for drug dose adjustment GFR/1.73 sq M.predicted among blacks MDRD (S/P/Bld) [Vol rate/Area] mL/min/{1.73_m2} >60 mL/min [facility] Work Phone: Glucose [Mass/Vol] 112 mg/dL High 70 - 100 mg/dL [facility] Work Phone: Interpretation and review of laboratory results Abnormal [facility] Work Phone: Potassium [Moles/Vol] 3.6 mmol/L 3.5 - 5.1 mmol/L [facility] Work Phone: Sodium [Moles/Vol] 139 mmol/L 135 - 145 mmol/L [facility] Work Phone: Urea nitrogen [Mass/Vol] 16 mg/dL 7 - 20 mg/d L [employer] Work Phone: Test Performed by [facility], [address] , [place], [place] [address] [employer] Work Phone: CR Chest Portableon 11-11-19 20 CR Chest Portable Patient Name: CARINE BARBA Diagnostic Radiology Exam Date/Time 11/11/2019 19:53:25 EST Exam CR Chest Portable Ordering Physician MD ERWIN, DAVID Ellis Accession Number [id number] CPT4 Codes 73085 () Reason For Exam ASTHMA SOB Report [...] Transcribed Date and Time: 11/11/2019 8:02 [facility] w/Auto DiffOr dered By: David Granger on 11-11-2019 Absolute Baso # 0.0 10*3/uL 0 - 0.2 10*3/uL [employer] Work Phone: Absolute Neut # 6.0 10*3/uL 1.8 - 7 10*3/uL [employer] Work Phone: Basophils/100 WBC (Bld) 0.4 % 0 - 2 % S [facility] Work Phone: Eosinophils (Bld) [#/Vol] 0.4 10*3/uL 0 - 0.5 10*3/uL [facility] Work Phone: Eosinophils/100 WBC (Bld) 4.1 % 1 - 6 % [facility] Work Phone: Erythrocyte distribution width (RBC) [Ratio] 13.8 % 11.5 - 14.5 % [facility] Work Phone: Granulocytes/100 WBC (Bld) 67.2 % 40 - 80 % [facility] Work Phone: Hematocrit (Bld) [Volume fraction] 41.4 % 35 - 47 % [facility] Work Phone: Hemoglobin (Bld) [Mass/Vol] 14.1 g/dL 11.7 - 16 g/dL [facility] Work Phone: Lymphocytes (Bld) [#/Vol] 2.0 10*3/uL 1 - 4.3 10*3/uL [facility] Work Phone: Lymphocytes/100 WBC (Bld) 22.7 % 20 - 40 % [facility] Work Phone: MCH (RBC) [Entitic mass] 32.9 pg 26 - 34 pg [facility] Work Phone: MCHC 34.0 % 32 - 36 % [facility] Work Phone: MCV (RBC) [Entitic vol] 96.8 fL 79 - 98 fL [facility] [employer] Work Phone: Monocytes (Bld) [#/Vol] 0.5 10*3/uL 0 - 0.8 10*3/uL [facility] Work Phone: Monocytes/100 WBC (Bld) 5.6 % 2 - 10 % S [employer] Work Phone: Platelet mean volume (Bld) [Entitic vol] 8.8 fL 7.4 - 10.4 fL [facility] Work Phone: Platelets (Bld) [#/Vol] 260 10*3/uL 140 - 440 10*3/uL [facility] Work Phone: RBC (Bld) [#/Vol] 4.28 10*6/uL 3.8 - 5.2 10*6/uL [facility] Work Phone: WBC (Bld) [#/Vol] 8.9 10*3/uL 3.6 - 10.7 10*3/uL [facility] Work Phone: Test Performed by [facility], [address] , [place], [place] [id number] [place] [address] Work Phone: Hemogram w/ Autodiffon 11-11 Abs Baso Cnt 0.0 10*3/uL Normal 0.0-0.2 [facility] Comment on above: Performed By: #### H RADHA BMP3 #### [facility] [address] [place] [address] Abs Neutrophile Cnt 6.0 10*3/uL Normal 1.8-7.0 [facility] Comment on above: Performed By: #### H RADHA BMP3 #### [facility] [address] [place] [address] Basophils/100 WBC (Bld) 0.4 % Normal 0.0-2.0 [facility] Comment on above: Performed By: #### H RADHA BMP3 #### [facility] [address] [address] Eosinophils (Bld) [#/Vol] 0.4 10*3/uL Normal 0.0-0.5 [facility] Comment on above: Performed By: #### H RADHA BMP3 #### [facility] [address] [place] [address] Eosinophils/100 WBC (Bld) 4.1 % Normal 1.0-6.0 [facility] Comment on above: Performed By: #### H RADHA BMP3 #### [facility] [address] [address] Erythrocyte distribution width (RBC) [Ratio] 13.8 % Normal 11.5-14.5 [facility] Comment on above: Performed By: #### H RADHA BMP3 #### [facility] [address] [place] [address] Granulocytes/100 WBC (Bld) 67.2 % Normal 40.0-80.0 [facility] Comment on above: Performed By: #### H RADHA BMP3 #### [facility] [address] [place] [address] Hematocrit (Bld) [Volume fraction] 41.4 % Normal 35.0-47.0 [facility] Comment on above: Performed By: #### H RADHA BMP3 #### [facility] [address] [place] [address] Hemoglobin (Bld) [Mass/Vol] 14.1 g/dL Normal 11.7-16.0 [facility] Comment on above: Performed By: #### H RADHA BMP3 #### [facility] [address] [place] [address] Lymphocytes (Bld) [#/Vol] 2.0 10*3/uL Normal 1.0-4.3 [facility] Comment on above: Performed By: #### H RADHA BMP3 #### [facility] [address] [place] [address] Lymphocytes/100 WBC (Bld) 22.7 % Normal 20.0-40.0 [facility] Comment on above: Performed By: #### H RADHA BMP3 #### [facility] [address] [place] [address] MCH (RBC) [Entitic mass] 32.9 pg Normal 26.0-34.0 [facility] Comment on above: Performed By: #### H RADHA BMP3 #### [facility] [address] [place] [address] MCHC (RBC) [Mass/Vol] 34.0 % Normal 32.0-36.0 [facility] Comment on above: Performed By: #### H RADHA, BMP3 #### [facility] [address] [place] [address] MCV (RBC) [Entitic vol] 96.8 fL Normal 79.0-98.0 [facility] Comment on above: Performed By: #### H RADHA BMP3 #### [facility] [address] [place] [address] Monocytes (Bld) [#/Vol] 0.5 10*3/uL Normal 0.0-0.8 [facility] Comment on above: Performed By: #### H EMDF, BMP3 #### [facility] [address] [place] [address] Monocytes/100 WBC (Bld) 5.6 % Normal 2.0-10.0 [facility] Comment on above: Performed By: #### H EMDF, BMP3 #### [facility] [address] [place] [address] Platelet mean volume (Bld) [Entitic vol] 8.8 fL Normal 7.4-10.4 [facility] Comment on above: Performed By: #### H EMDF, BMP3 #### [facility] [address] [place] [address] Platelets (Bld) [#/Vol] 260 10*3/uL Normal 140-440 [facility] Comment on above: Performed By: #### H EMDF, BMP3 #### [facility] [address] [place] [address] RBC (Bld) [#/Vol] 4.28 10*6/uL Normal 3.80-5.20 [facility] Comment on above: Performed By: #### H EMDF, BMP3 #### [facility] [address] [place] [address] WBC (Bld) [#/Vol] 8.9 10*3/uL Normal 3.6-10.7 [facility] Comment on above: Performed By: #### H EMDF, BMP3 #### [facility] [address] [place] [address] Rapid Flu A AND B, RNAon Rapid Influenza A Not Detected Normal Not Detected [facility] Comment on above: Performed By: #### R PFAB #### [facility] [address] [place] [address] Rapid Influenza B Not Detected Normal Not Detected [facility] Comment on above: Result Comment: Meth od: Isothermal nucleic acid amplification technology. Performed By: #### R PFAB #### [facility] [employer] [facility] [address] [place] [address] Rapid Influenza A/B Antigens Ordered By: David Granger on 11-11-2019 INFLUENZA A Not detected Not Detected NA [employer] Work Phone: INFLUENZA B Not detected Not Detected NA [employer] Work Phone: Comment on above: Method: Isothermal n ucleic acid amplification technology. Test Performed by [facility] [employer] [facility], [address] , [place], [place] [address] [employer] Work Phone: XR CHEST PORTABLEOrdered By: David Granger on 11-11-2019 Patient Name: CARINE BARBA ---Diagnostic Radiology--- Exam Date/Time 11/11/2019 19:53:25 EST Exam CR Chest Portable Ordering Physician MD ERWIN, DAVID Ellis Accession Number [id number] CPT4 Codes 51518 () Reason For Exam ASTHMA SOB Report [...] KRIKOR Transcribed Date and Time: 11/11/2019 8:02 [facility] Work [facility]: [facility] From [facility] - 11/11/2019 8:02 PM EST Patient Name: CARINE BARBA ---Diagnostic Radiology--- Exam Date/Time 11/11/2019 19:53:25 EST Exam CR Chest Portable Ordering Physician MD ERWIN, DAVID Ellis Accession Number [id number] CPT4 Codes 84346 () Reason For Exam ASTHMA SOB Report [...] and Time: 11/11/2019 8:02 [facility] Work Phone: [facility] on 12-07-2017 [facility] Normal [facility] [place] Pat Eduon 12-07-2017 Pat Edu Normal [facility] [place] Patient Summary Documentson 12-07-2017 Patient Summary Documents Normal [facility] [place] [facility] on 10-07-2017 [facility] Normal [facility] [place] Patient Summary Documentson 10-06-2017 Patient Summary Documents Normal [facility] [place] Note-Provideron 7 ED Note-Provider Normal [facility] [place] Patient Summary Documentson 06-09-2017 Patient Summary Documents Normal [facility] [place] [facility] on 06-07-2017 [facility] Normal [facility] [place] Patient Summary Documentson 06-06-2017 Patient Summary Documents Normal [facility] [place] Vital Signs Date Time Vital Sign Value Performing Clinician Facility 06-18-2025 02:49-0400 Diastolic blood pressure 82 mm[Hg] Joel Shepard DO Work Phone: [facility] [employer] 06-18-2025 02:49-0400 Heart rate 107 /min Joel Shepard DO Work Phone: [facility] [employer] 06-18-2025 02:49-0400 Respiratory rate 17 /min Joel Shepard DO Work Phone: [facility] [employer] 06-18-2025 02:49-0400 SaO2% (BldA) [Mass fraction] 94 % Joel Shepard DO Work Phone: [facility] [employer] 06-18-2025 02:49-0400 Systolic blood pressure 131 mm[Hg] Joel Barrosoel DO Work Phone: [facility] [employer] 06-17-2025 22:01-0400 Body temperature 100.09 [degF] Joel Shepard DO Work Phone: [facility] [employer] 06-17-2025 21:50-0400 Body height 170.2 cm Joel Shepard DO Work Phone: [facility] [employer] 06-17-2025 21:50-0400 Body mass index (BMI) [Ratio] 25.06 kg/m2 Joel Shepard DO Work Phone: [facility] [employer] 06-17-2025 21:50-0400 Body weight 72.58 kg Joel Shepard DO Work Phone: [facility] [employer] 06-13-2025 14:57-0400 Body temperature 97.8 [degF] No Primary Care Physician [facility] 06-13-2025 14:57-0400 Diastolic blood pressure 78 mm[Hg] No Primary Care Physician [facility] 06-13-2025 14:57-0400 Heart rate 64 /min No Primary Care Physician [facility] 06-13-2025 14:57-0400 Respiratory rate 18 /min No Primary Care Physician [facility] 06-13-2025 14:57-0400 SaO2% (BldA) [Mass fraction] 99 % No Primary Care Physician [facility] 06-13-2025 14:57-0400 Systolic blood pressure 128 mm[Hg] No Primary Care Physician [facility] 06-13-2025 12:20-0400 Body height 170.18 cm No Primary Care Physician [facility] 06-13-2025 12:20-0400 Body mass index (BMI) [Ratio] 31.9 kg/m2 No Primary Care Physician [facility] 06-13-2025 12:20-0400 Body weight 92.6 kg No Primary Care Physician [facility] 05-22-2025 08:15-0400 Body temperature 98.2 [degF] No Primary Care Physician [facility] 05-22-2025 08:15-0400 Diastolic blood pressure 73 mm[Hg] No Primary Care Physician [facility] 05-22-2025 08:15-0400 Heart rate 90 /min No Primary Care Physician [facility] 05-22-2025 08:15-0400 Respiratory rate 16 /min No Primary Care Physician [facility] 05-22-2025 08:15-0400 SaO2% (BldA) [Mass fraction] 99 % No Primary Care Physician [facility] 05-22-2025 08:15-0400 Systolic blood pressure 118 mm[Hg] No Primary Care Physician [facility] 05-21-2025 15:14-0400 Body height 170.18 cm No Primary Care Physician [facility] 05-21-2025 15:14-0400 Body weight 71 kg No Primary Care Physician [facility] 05-18-2025 20:49-0400 Body mass index (BMI) [Ratio] 24.5 kg/m2 No Primary Care Physician [facility] 05-18-2025 20:38-0400 Body temperature 98.9 [degF] No Primary Care Physician [facility] 05-18-2025 20:38-0400 Diastolic blood pressure 72 mm[Hg] No Primary Care Physician [facility] 05-18-2025 20:38-0400 Heart rate 79 /min No Primary Care Physician [facility] 05-18-2025 20:38-0400 Respiratory rate 18 /min No Primary Care Physician [facility] 05-18-2025 20:38-0400 SaO2% (BldA) [Mass fraction] 99 % No Primary Care Physician [facility] 05-18-2025 20:38-0400 Systolic blood pressure 139 mm[Hg] No Primary Care Physician [facility] 05-18-2025 18:18-0400 Body height 170.18 cm No Primary Care Physician [facility] 05-18-2025 18:18-0400 Body mass index (BMI) [Ratio] 24.9 kg/m2 No Primary Care Physician [facility] 05-18-2025 18:18-0400 Body weight 72.25 kg No Primary Care Physician [facility] 04-15-2025 11:48-0400 SaO2% (BldA) [Mass fraction] 95 % Vincent Nesheim DO Work Phone: [facility] [employer] 04-15-2025 07:00-0400 Body temperature 97.2 [degF] Vincent Nesheim DO Work Phone: [facility] [employer] 04-15-2025 07:00-0400 Diastolic blood pressure 82 mm[Hg] Vincent Nesheim DO Work Phone: [facility] [employer] 04-15-2025 07:00-0400 Heart rate 112 /min Vincent Nesheim DO Work Phone: [facility] [employer] 04-15-2025 07:00-0400 Respiratory rate 16 /min Vincent Nesheim DO Work Phone: [facility] [employer] 04-15-2025 07:00-0400 Systolic blood pressure 130 mm[Hg] Vincent Nesheim DO Work Phone: [facility] [employer] 04-15-2025 01:02-0400 Body height 167.6 cm Vincent Nesheim DO Work Phone: [facility] [employer] 04-15-2025 01:02-0400 Body mass index (BMI) [Ratio] 27.44 kg/m2 Vincent Nesheim DO Work Phone: [facility] [employer] 04-15-2025 01:02-0400 Body weight 77.11 kg Vincent Nesheim DO Work Phone: [facility] [employer] 01-08-2025 03:11-0400 Diastolic blood pressure 64 mm[Hg] Giancarlo Batres MD Work Phone: [facility] 01-08-2025 03:11-0400 Heart rate 100 /min Giancarlo Batres MD Work Phone: [facility] 01-08-2025 03:11-0400 Respiratory rate 20 /min Giancarlo Batres MD Work Phone: [facility] 01-08-2025 03:11-0400 SaO2% (BldA) [Mass fraction] 96 % Giancarlo Batres MD Work Phone: [facility] 01-08-2025 03:11-0400 Systolic blood pressure 117 mm[Hg] Giancarlo Batres MD Work Phone: [facility] [employer] 01-08-2025 01:54-0400 Body height 170.2 cm Giancarlo Batres MD Work Phone: [facility] 01-08-2025 01:54-0400 Body mass index (BMI) [Ratio] 26.63 kg/m2 Giancarlo Batres MD Work Phone: [facility] 01-08-2025 01:54-0400 Body temperature 99 [degF] Giancarlo Batres MD Work Phone: [facility] [employer] 01-08-2025 01:54-0400 Body weight 77.11 kg Giancarlo Batres MD Work Phone: [facility] 03-23-2022 10:53-0400 Respiratory rate 16 /min [facility] Work Phone: 03-23-2022 08:42-0400 Diastolic blood pressure 88 mm[Hg] [facility] Work Phone: 03-23-2022 08:42-0400 Heart rate 86 /min [facility] Work Phone: 03-23-2022 08:42-0400 SaO2% (BldA) [Mass fraction] 97 % [facility] Work Phone: 03-23-2022 08:42-0400 Systolic blood pressure 160 mm[Hg] [facility] Work Phone: 03-23-2022 06:42-0400 Body height 170.[address] [facility] Work Phone: 03-23-2022 06:42-0400 Body mass index (BMI) [Ratio] 32.3 kg/m2 [facility] Work Phone: 03-23-2022 06:42-0400 Body temperature 97.9 [degF] [facility] Work Phone: 03-23-2022 06:42-0400 Body weight 93.[address] [facility] Work Phone: 07-05-2020 11:10-0400 Pulse (Heart Rate) 85 /min [facility] [place] 07-05-2020 11:10-0400 Pulse Oximetry 95 % [facility] [place] 07-05-2020 10:14-0400 BP Diastolic 63 mm[Hg] [facility] [place] [facility] [place] 07-05-2020 10:14-0400 BP Systolic 113 mm[Hg] [facility] , [place] 07-05-2020 10:14-0400 Respiratory Rate 16 /min [facility] [place] 07-05-2020 09:11-0400 BMI (Body Mass Index) 28.19 kg/m2 [facility] [place] 07-05-2020 09:11-0400 Body Temperature 98.2 [degF] [facility], [place] 07-05-2020 09:11-0400 Body weight 81.65 kg [facility] , [place] 07-05-2020 09:11-0400 Height 170.2 cm [facility] , [place] 06-08-2020 05:18-0400 BP Diastolic 66 mm[Hg] [facility] [place] , [place] 06-08-2020 05:18-0400 BP Systolic 123 mm[Hg] [facility] , [place] 06-08-2020 05:18-0400 Pulse (Heart Rate) 88 /min [facility] [place] 06-08-2020 05:18-0400 Pulse Oximetry 99 % [facility] , [place] 06-08-2020 05:18-0400 Respiratory Rate 16 /min Anca [facility], [place] 06-08-2020 02:35-0400 BMI (Body Mass Index) 28.19 kg/m2 [facility], [place] 06-08-2020 02:35-0400 Body Temperature 98.49 [degF] [facility], [place] 06-08-2020 02:35-0400 Body weight 81.65 kg [facility] , [place] 06-08-2020 02:35-0400 Height 170.2 cm [facility] , [place] 04-29-2020 11:24-0400 BP Diastolic 69 mm[Hg] N[facility] , [place] 04-29-2020 11:24-0400 BP Systolic 110 mm[Hg] [facility] , [place] 04-29-2020 11:24-0400 Pulse (Heart Rate) 101 /min [facility] 04-29-2020 11:24-0400 Pulse Oximetry 97 % [facility] , [place] 04-29-2020 11:24-0400 Respiratory Rate 20 /min N[facility] 04-29-2020 09:16-0400 Body Temperature 98.4 [degF] [facility] 11-12-2019 11:47-0500 SaO2% (BldA) [Mass fraction] 96 % David Granger MD Work Phone: [employer] Work Phone: 11-12-2019 07:32-0500 Body temperature 98.01 [degF] David Granger MD Work Phone: [employer] Work Phone: 11-12-2019 07:32-0500 Diastolic blood pressure 84 mm[Hg] David Granger MD Work Phone: [employer] Work Phone: 11-12-2019 07:32-0500 Heart rate 81 [...] 83.92 kg David Granger MD Work Phone: [employer] Work Phone: Encounters Encounter Date Encounter Type Care Provider Facility Start: 06-21-2025 End: 06-21-2025 Telephone encounter Lorena Shah MD Work Phone: [facility] Start: 06-18-2025 End: 06-18-2025 Telephone encounter Quinton Gomez DO Work Phone: [facility] [place] Start: 06-17-2025 End: 06-18-2025 Emergency department patient visit Joel Dinero Rach DO Work Phone: [facility] Comment on above: Moderate persistent asthma with exacerbation (Primary Dx); Shortness of breath Start: 06-17-2025 End: 06-17-2025 Office outpatient new 60 minutes Lorena Shah MD Work Phone: [facility] Comment on above: Severe opioid use di sorder (HCC) (Primary Dx); Severe cocaine use disorder (HCC); Tetrahydrocannabinol (THC) use disorder, moderate, dependence (HCC); Tobacco use disorder; Alcohol abuse; Anxiety; Depression, unspecified depression type Start: 06-17-2025 End: 06-17-2025 ambulatory [facility] Start: 06-13-2025 End: 06-13-2025 Emergency department patient visit No Primary Care Physician -Emergency Department Work Phone: Start: 06-04-2025 End: 06-04-2025 ambulatory [facility] Start: 06-04-2025 End: 06-04-2025 Subsequent hospital visit by physician Lorena Shah MD Work Phone: [facility] Comment on above: Arrived Start: 06-03-2025 End: 06-03-2025 Telephone encounter Hao Corado MD Work Phone: [facility] Psychiatry Start: 05-28-2025 End: 05-28-2025 Telephone encounter Lorena Shah MD Work Phone: [facility] Comment on above: Appointment Start: 05-25-2025 End: 06-03-2025 Evaluation and management of inpatient [facility] Start: 05-25-2025 End: 05-25-2025 Emergency department patient visit LISA ALCALA MD [facility] Start: 05-22-2025 Non-patient / Non-visit [facility] Work Phone: Start: 05-21-2025 Non-patient / Non-visit [facility] Work Phone: Start: 05-20-2025 Non-patient / Non-visit [facility] Work Phone: Start: 05-19-2025 Non-patient / Non-visit Dr. Kareem Lee DO [facility] Work Phone: Start: 05-18-2025 Non-patient / Non-visit Dr. Trae mendez DO -[facility] Work Phone: Start: 05-18-2025 ambulatory Trae Brooks Facility:[facility] Start: 05-18-2025 End: 05-22-2025 Evaluation and management of inpatient Dr. Trae Brooks DO -[facility] 3 Work Phone: Start: 04-16-2025 End: 04-16-2025 Telephone encounter [facility] Clinical Communication Comment on above: Hospital Follow-up Start: 04-15-2025 End: 04-15-2025 Telephone encounter Emelia Rucker APRN - CIVIL SERVICE WORKER Work Phone: [facility] Start: 04-14-2025 End: 04-15-2025 ambulatory [facility] Start: 04-14-2025 End: 04-15-2025 Evaluation and management of inpatient Vincent Huitron DO Work Phone: [facility] Medical Unit 4N Comment on above: Severe persistent as thma with exacerbation (Primary Dx) Start: 01-08-2025 End: 01-08-2025 Emergency department patient visit Giancarlo Batres MD Work Phone: [facility] Comment on above: Moderate persistent asthma with exacerbation (Primary Dx) Start: 10-18-2024 Emergency department patient visit Facility:[facility] Start: 10-17-2024 End: 10-17-2024 ambulatory No Primary Care Physician Facility:[facility] Start: 10-16-2024 End: 10-16-2024 Emergency department patient visit No Primary Care Physician Facility:[facility] Start: 03-23-2022 End: 03-23-2022 Emergency department patient visit [facility]-Emergency Department Start: 07-05-2020 End: 07-05-2020 Emergency department patient visit Anca Macdonaldhta Work Phone: [facility] ED Comment on above: Exacerbation of asth ma, unspecified asthma severity, unspecified whether persistent (Primary Dx) Start: 06-08-2020 End: 06-08-2020 Emergency department patient visit Anca Almaguer Work Phone: [facility] Comment on above: Exacerbation of asth ma, unspecified asthma severity, unspecified whether persistent (Primary Dx) Start: 04-29-2020 End: 04-29-2020 Emergency department patient visit Nimo Hughes Work Phone: [facility] Comment on above: Moderate persistent asthma with exacerbation (Primary Dx) Start: 11-11-2019 End: 11-12-2019 Emergency department patient visit David Granger MD Work Phone: [facility] Comment on above: Moderate persistent asthma with acute exacerbation (Primary Dx); Infiltrate of lower lobe of right lung present on imaging study Start: 12-07-2017 End: 12-07-2017 Emergency department patient visit ALVARO BLACK Facility:B Start: 10-06-2017 End: 10-07-2017 Emergency department patient visit [facility] Facility:[facility] Start: 06-09-2017 End: 06-09-2017 Emergency department patient visit SILVIO ALCALA Facility:B Start: 06-06-2017 End: 06-06-2017 Emergency department patient visit [facility] Facility:B Start: 11-04-2016 End: 11-05-2016 Ambulatory LEXY OZUNA Facility:[facility] Procedures Date Procedure Procedure Detail Performing Clinician Start: 06-18-2025 Blood gases any comb ination ph pco2 po2 co2 hco3 Joel Dinero [employer] DO Work Phone: Start: 06-17-2025 Radiologic exam ches t single view Joel Shepard DO Work Phone: Start: 06-17-2025 Blood gases any comb ination ph pco2 po2 co2 hco3 Joel Dinero [employer] DO Work Phone: Start: 06-17-2025 End: 06-18-2025 Basic metabolic panel calcium total Joel Bar [employer] DO Work Phone: Start: 06-17-2025 SARS-COV-2, FLU A/B, AND RSV COMBO Joel Bar [employer] DO Work Phone: Start: 06-13-2025 Urnls dip [...] Phone: Start: 04-14-2025 Procalcitonin (pct) Poli Easley [employer] Work Phone: Start: 04-14-2025 Respiratory pathogen s DNA and RNA panel - Nasopharynx by DAJA with non-probe detection Quinton Easley [employer] Work Phone: Start: 04-14-2025 SARS-COV-2, FLU A/B, [...] Comment on above: bilateral rods section LISA RAMIREZ MD Entire right lower l eg (body structure) LISA ALCALA MD Comment on above: artery & nerve Open reduction of fr acture with internal fixation LISA ALCALA MD Comment on above: left clavicle Plan of Treatment Date Care Activity Detail Author Start: 2066 RSV Immunization for Adults (1 - 1-dose 75+ series) RSV Immunization for Adults (1 - 1-dose 75+ series) [facility] [employer] Start: 2041 Zoster Vaccines (1 of 2) Zoste r Vaccines (1 of 2) [facility] Start: 05-28-2030 Lipid panel Lipid Panel [facility] Start: 05-26-2026 Depression Screening Depression Scre ening [facility] [employer] Start: 12-05-2025 Depression Monitoring Depression Mon itoring [facility] Start: 06-24-2025 Influenza vaccination S [facility] Start: 06-17-2025 End: 06-17-2025 Patient encounter procedure 06/17/2025 12:00 PM EDT Office Visit [facility] [address] [place] [id number] Lorena Shah MD [address] [facility] [address] [place] [address] [facility] Start: 06-13-2025 [facility] Start: 06-13-2025 Chest 1 View (Portable) Chest 1 View (Portable) [facility] Start: 06-13-2025 XR Chest Single view [facility] Start: 06-04-2025 End: 06-04-2025 Patient encounter procedure 06/04/2025 1:00 PM EDT Appointment [facility]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
[2025-06-23 13:34] LABS: Procalcitonin 0.16 ng/mL (<=0.10)
[2025-06-23 14:30] LABS: Troponin T High Sens 4 HR < 6 ng/L (<=14)
[2025-06-23] MEDS: Nicotine (PBKC) 14 MG Patch TD (17:21)
[2025-06-23] MEDS: 0.9% Saline Lock 10 ML Syringe IV ×2 (17:22→22:12)
[2025-06-24] VITALS (12 sets, daily range): BP systolic 114–123; BP diastolic 65–76; PULSE 78–112; RESP 14–20; TEMP 36.4–36.7; O2SAT 93–98
[2025-06-24] MEDS: Albuterol 2.5 MG/3 ML VIAL.NEB. INHALATION (04:20)
[2025-06-24] MEDS: 0.9% Saline Lock 10 ML Syringe IV ×4 (05:47→21:20)
[2025-06-24 05:51] LABS: Hematocrit 37.8 % (37-47); Hemoglobin 13.0 g/dL (12.0-15.0); Mean Corp Hgb Conc 34.4 g/dL (32-36); Mean Corpuscular Volume 96.2 fL (81-99); Mean Platelet Vol. 10.3 fl (6.2-12.0); Platelet Count 283 K/mm3 (150-450); RBC Distribution Width CV 13.5 % (11.6-14.6); RBC Distribution Width SD 48.0 fl (35.1-43.9); Red Blood Count 3.93 M/mm3 (4.2-5.4); White Blood Count 19.3 K/mm3 (4.4-11.0)
[2025-06-24 06:56] LABS: Anion Gap 13 (5-15); BUN 18 mg/dL (4-19); BUN/Creat Ratio 24.9 RATIO (10-20); Calcium,Total 9.5 mg/dL (7.6-11.0); Carbon Dioxide 22.3 mmol/L (21.0-32.0); Chloride 99 mmol/L (98-108); Estimated Creatinine Clearance 121.18 ml/min (50-250); Glucose 176 mg/dL (70-99); Potassium 4.7 mmol/L (3.3-5.1)
[2025-06-24] MEDS: Nicotine (PBKC) 14 MG Patch TD (08:56)
[2025-06-24] MEDS: levoFLOXacin IV 750 MG/150 ML BAG 100 MG IV (09:09)
[2025-06-24] MEDS: 0.9% Normal Saline (250mL Bag) 250 ML 15 ML IV (09:09)
--- NOTE | 2025-06-24 14:47 | PN_ITS ---
Subjective Subjective Patient seen and examined. She says she is feeling better. She feels her breathing has improved. She denies any coughing or chest pain, palpitations, dizziness, nausea vomiting or any other symptoms. Review of systems otherwise negative. She is on room air. Heart tachycardic with a heart rate of 112. Objective Data Objective Data Vital Signs: Vital Signs Temp Pulse Resp BP Pulse Ox O2 Del Method O2 Flow Rate 98.1 F 112 H 18 114/65 93 Room Air 2 06/24/25 14:27 06/24/25 14:27 06/24/25 14:27 06/24/25 14:27 06/24/25 14:27 06/24/25 14:27 06/24/25 08:52 Oxygen Flow Rate (L/min) 2 Oxygen Delivery Method Room Air Weight: 180 lb 8.937 oz Body Mass Index (BMI) 28.3 Intake & Output: Intake and Output for Last 24 Hours 06/22/25 06/23/25 06/24/25 23:59 23:59 23:59 Intake Total 254 / 614 730 / 730 Balance 254 / 614 730 / 730 Lab / Micro Data 06/24/25 05:06 06/24/25 05:06 Labs: Laboratory Results - last 24 hr 06/24/25 05:06: WBC 19.3 H, RBC 3.93 L, Hgb 13.0, Hct 37.8, MCV 96.2, MCH 33.1 H , MCHC 34.4, RDW Std Deviation 48.0 H, RDW Coeff of Emilia 13.5, Plt Count 283, MPV 10.3, Sodium 134, Potassium 4.7, Chloride 99, Carbon Dioxide 22.3, Anion Gap 13, BUN 18, Creatinine 0.72, Estim Creat Clear Calc 121.18, Est GFR (MDRD) Non-Af 112, BUN/Creatinine Ratio 24.9 H, Glucose 176 H, Calcium 9.5 Micro: Microbiology 06/23/25 15:25 Sputum, Expectorated/Coughed Gram Stain - Final 06/23/25 15:25 Sputum, Expectorated/Coughed Respiratory Culture - Preliminary Appears to be normal respiratory placido. Further studies to follow. 06/23/25 15:05 Mucosa - Nasopharyngeal Respiratory Panel (PCR) - Final 06/23/25 10:17 Mucosa - Nose SARS-CoV-2, Influenza & RSV (PCR) - Final Physical Exam Const alert, oriented x3, no apparent distress and well nourished General Appearance: cooperative HEENT normocephalic, head/scalp atraumatic, moist oral mucous membranes and oropharynx normal Eyes EOMs intact bilaterally Neck supple and no JVD Lymph Lymphatic: no lymphedema noted Resp Resp Narrative: Mildly diminished breath sounds bibasilarly. Bilateral mild wheezing. No crackles. On room air. Cardio regular rhythm, S1 normal heart sound, S2 normal heart sound and no murmurs Cardio Narrative: Tachycardic GI normal to inspection, nondistended, normoactive bowel sounds, soft to palpation, non-tender and non-distended Extremity normal capillary refill, no clubbing, cyanosis or edema and no calf tenderness General Extremity: no tenderness to palpation of joints or extremities Skin General Skin Exam: no breakdown Neuro no focal motor deficits and no sensory deficits noted Motor Exam: general weakness Psych thought process normal and cooperative Appearance: appropriate Assessment & Plan Assessment/Plan (1) Asthma: (2) Asthma, extrinsic with exacerbation: PLAN: Plan #Acute asthma exacerbation * Admitted with a complaint of shortness of breath and chest x-ray showed interstitial pulmonary densities in the lower lungs which was worse compared to x-ray on 06/13/2025 and may represent pulmonary edema or pneumonia. * WBC was 29.3 and is down to 19.3 today. Does have slight bilateral wheezing but she says she always has wheezing as a baseline. * On IV Solu-Medrol 40 mg every 8 * Sputum cultures showing normal respiratory placido. * on IV levofloxacin * Breathing treatments bronchodilators. Titrate oxygen to maintain saturation above 90%. #History of polysubstance abuse * Was recently admitted for opiate detox. Has a history of heroin, crack cocaine and marijuana use. Counseled to quit. #Nicotine dependence: Counseled to quit. Nicotine patch as needed DVT prophylaxis: Lovenox Charges/Coding Visit Charges Inpatient E&M: 05084 Subs Hosp L2
[2025-06-25 03:09] VITALS: BP 105/71; PULSE 80; RESP 16; TEMP 36.4; O2SAT 95
[2025-06-25 05:52] LABS: Hematocrit 34.8 % (37-47); Hemoglobin 11.7 g/dL (12.0-15.0); Immature Granulocytes Count 0.120 X10^3/uL (0.0-0.0); Mean Corp Hgb Conc 33.6 g/dL (32-36); Mean Corpuscular Volume 97.5 fL (81-99); Mean Platelet Vol. 9.7 fl (6.2-12.0); NRBC Flagged by Analyzer 0 % (0-5); Platelet Count 298 K/mm3 (150-450); RBC Distribution Width CV 14.1 % (11.6-14.6); RBC Distribution Width SD 50.3 fl (35.1-43.9); Red Blood Count 3.57 M/mm3 (4.2-5.4); White Blood Count 16.5 K/mm3 (4.4-11.0)
[2025-06-25 06:17] LABS: Anion Gap 10 (5-15); BUN 18 mg/dL (4-19); BUN/Creat Ratio 25.4 RATIO (10-20); Calcium,Total 9.6 mg/dL (7.6-11.0); Carbon Dioxide 24.4 mmol/L (21.0-32.0); Chloride 102 mmol/L (98-108); Estimated Creatinine Clearance 126.44 ml/min (50-250); Glucose 154 mg/dL (70-99); Potassium 4.4 mmol/L (3.3-5.1)
[2025-06-25] MEDS: 0.9% Saline Lock 10 ML Syringe IV (06:21)
[2025-06-25 06:57] VITALS: PULSE 92; RESP 16; O2SAT 98
[2025-06-25 09:17] VITALS: O2SAT 92; O2SAT 94
[2025-06-25 09:36] VITALS: BP 126/74; PULSE 84; RESP 20; TEMP 36.7; O2SAT 94
[2025-06-25] MEDS: Nicotine (PBKC) 14 MG Patch TD (09:50)
[2025-06-25] MEDS: levoFLOXacin IV 750 MG/150 ML BAG 100 MG IV (09:50)
[2025-06-25 10:43] VITALS: PULSE 96; RESP 16
--- NOTE | 2025-06-25 11:20 | CASEMGMT ---
RN CM Face to Face with patient for initial transition planning/care coordination assessment. RN CM introduced self and role at [facility]. Patient lying in bed, alert and oriented. Patient willing to participate in assessment and is able to answer all questions appropriately. Care providers, pharmacy, and demographics verified. Strata: 2 PCP: No PCP, list provided Specialists: none Preferred Pharmacy: [facility] Insurance: [employer] Prescription Benefit: yes Living Will/HPOA: none LNOK: [facility] Living Arrangements: Patient lives with kaelyn in a single story home with no steps to enter. Patient states she is independent Transportation: [facility] DME/HHC: Patient has nebuilzer at home. Patient denies needs or help at discharge. Patient has been to [facility] in the past. Patient wishes to discharge home, denies need for home health at this time. Patient states she has no further needs or concerns at this time. CM to follow for discharge planning needs that may arise. Disposition Plan: Patient to discharge home with family support and follow-up plans in place. Ledy JOHNSON, RN, CM
--- NOTE | 2025-06-25 11:51 | DS.PCM_ITS ---
Providers Date of Admission: 06/23/25 Date of Discharge: 06/25/25 Primary Care Physician: No Primary Care Phys Reason For Visit: ASTHMA EXACERBATION W/HYPOXIA AND CONCERN FOR CAP Diagnosis Discharge Diagnosis (1) Asthma: Status: Chronic Code(s): J45.909 - Unspecified asthma, uncomplicated (2) Asthma, extrinsic with exacerbation: Status: Acute Code(s): J45.901 - Unspecified asthma with (acute) exacerbation Plan #Acute asthma exacerbation * Admitted with a complaint of shortness of breath and chest x-ray showed interstitial pulmonary densities in the lower lungs which was worse compared to x-ray on 06/13/2025 and may represent pulmonary edema or pneumonia. * WBC was 29.3 and is down to 19.3 today. Does have slight bilateral wheezing but she says she always has wheezing as a baseline. * On IV Solu-Medrol 40 mg every 8 * Sputum cultures showing normal respiratory placido. * on IV levofloxacin * Breathing treatments bronchodilators. Titrate oxygen to maintain saturation above 90%. #History of polysubstance abuse * Was recently admitted for opiate detox. Has a history of heroin, crack cocaine and marijuana use. Counseled to quit. #Nicotine dependence: Counseled to quit. Nicotine patch as needed DVT prophylaxis: Lovenox Medications at Discharge Home Medications albuterol sulfate 90 mcg/actuation aerosol inhaler (Ventolin HFA) 2 puff inhalation Q6H PRN shortness of breath or wheezing #6.7 grams 06/13/25 buprenorphine 8 mg-naloxone 2 mg sublingual film 1 ea sublingual BID detox 06/23/25 gabapentin 300 mg capsule 600 mg PO TID anxiety, restless legs 06/23/25 lithium carbonate 600 mg capsule 600 mg PO QHS mood swings 06/23/25 quetiapine 100 mg tablet 100 mg PO .qid anxiety 06/23/25 quetiapine 400 mg tablet 400 mg PO QHS help with sleep 06/23/25 albuterol sulfate 90 mcg/actuation breath activated powder inhaler 2 inh inhalation Q4H PRN shortness of breath or wheezing #1 ea 06/25/25 levofloxacin 500 mg tablet 500 mg PO DAILY #5 tabs 06/25/25 prednisone 20 mg tablet 40 mg (2 x 20 mg) PO DAILY #10 tabs 06/25/25 Hospital Course Operations None Procedures None Summary of Care Provided Minutes Spent on Discharge: 45 Hospital Course: Patient is a 35-year-old female with a past medical history as outlined including asthma who came into the ED on 06/23/2025 with complaint of shortness of breath and productive cough. She also had a history of polysubstance abuse and had been in this hospital in mid April for acute opioid detox. She says she had been sober since discharge and had been following up with 180. Her daughter went back to school a few weeks ago and says she picked up an upper respiratory illness. Patient and the rest of her family subsequently developed upper respiratory symptoms as well. She had a history of asthma and was on albuterol inhaler and nebulizer at home but had been using this more frequently than usual. She came into the ED was noted to be hypoxic at 88% on room air. She was also tachycardic with heart rate in the 110s. Chest x-ray showed interstitial pulmonary densities in the lower lungs slightly worsened compared to x-ray from 821. WBC was elevated at 29 with neutrophil predominance and CBC and BMP were otherwise benign. Procalcitonin was only minimally elevated. Troponins were negative. She was admitted and managed for acute exacerbation of asthma as well as probable pneumonia. She was started on breathing treatments and IV Solu-Medrol as well as IV Levaquin. Patient's breathing improved and she felt much better. She is not requiring any oxygen. Sputum cultures grew 4+ WBC and 4+ gram-positive cocci Staph aureus. Her shortness of breath improved and she felt much better. She was discharged home on 06/25/2025 on PO levofloxacin x 5 days. She is to follow up with her PCP with in 1-2 weeks. SHe was also discharged on PO prednisone 40mg daily x 5 days, and also given a script for her albuterol inhaler. She is to follow up with her PCP within 1-2 weeks. Patient seen and examined prior to discharge. She had no active complaints and had an uneventful night. Review of systems is otherwise negative. Labs and vitals reviewed. Home meds reviewed and reconciled. Physical Exam Const alert, oriented x3, no apparent distress, average body habitus and well nourished General Appearance: cooperative and comfortable HEENT normocephalic, head/scalp atraumatic, hearing grossly normal bilaterally, nasal mucous membranes and turbinates normal, moist oral mucous membranes and oropharynx normal Eyes PERRL, EOMs intact bilaterally and conjunctivae normal Neck full ROM, supple and no JVD Lymph Lymphatic: no lymphedema noted Chest inspection of chest normal Resp Resp Narrative: Mildly diminished breath sounds bibasilarly. Mild bilateral mild wheezing. No crackles. On room air. Cardio regular rate, regular rhythm, S1 normal heart sound, S2 normal heart sound, no murmurs and peripheral pulses 2+ throughout Cardio Narrative: Tachycardic GI normal to inspection, nondistended, normoactive bowel sounds, soft to palpation, non-tender and non-distended Back/Spine normal ROM Extremity normal to inspection, full ROM, normal capillary refill, no clubbing, cyanosis or edema, no calf tenderness and no pedal edema General Extremity: no tenderness to palpation of joints or extremities Skin no rashes or lesions noted General Skin Exam: no breakdown Neuro oriented x3, CN's II-XII intact bilaterally, moves all extremities, no focal motor deficits and no sensory deficits noted Sensorium / Orientation: awake Motor Exam: strength 5/5 throughout Psych mental status grossly normal, thought process normal and cooperative Appearance: appropriate Weight / BMI Weight Weight: 180 lb 8.937 oz Body Mass Index (BMI) 28.3 ABG / Lab / Microbiology Data 06/25/25 05:43 06/25/25 05:43 Laboratory: Laboratory Results - last 24 hr 06/25/25 05:43: WBC 16.5 H, RBC 3.57 L, Hgb 11.7 L, Hct 34.8 L, MCV 97.5, MCH 32.8 H, MCHC 33.6, RDW Std Deviation 50.3 H, RDW Coeff of Emilia 14.1, Plt Count 298, MPV 9.7, Immature Gran % (Auto) 0.700, Neut % (Auto) 87.0 H, Lymph % (Auto) 7.7 L, Crawford % (Auto) 4.5, Eos % (Auto) 0.0, Baso % (Auto) 0.1, Absolute Neuts (auto) 14.4 H, Absolute Lymphs (auto) 1.27, Nucleated RBC % 0, Sodium 137, Potassium 4.4, Chloride 102, Carbon Dioxide 24.4, Anion Gap 10, BUN 18, C reatinine 0.69 L, Estim Creat Clear Calc 126.44, Est GFR (MDRD) Non-Af 117, B UN/Creatinine Ratio 25.4 H, Glucose 154 H, Calcium 9.6 Microbiology: Microbiology 06/23/25 15:25 Sputum, Expectorated/Coughed Gram Stain - Final 06/23/25 15:25 Sputum, Expectorated/Coughed Respiratory Culture - Preliminary Staphylococcus aureus 06/23/25 15:05 Mucosa - Nasopharyngeal Respiratory Panel (PCR) - Final 06/23/25 10:17 Mucosa - Nose SARS-CoV-2, Influenza & RSV (PCR) - Final D/C Instructions Discharge Activity: Return to Normal Activity Weight Bearing Status: Weight bearing as tolerated Call your doctor if you observe: Fever of 101 or Higher, Shortness of breath, Dizziness, Swelling in the ankles and Chest pain DC O2, CPAP, BIPAP Needs Home O2 Discharge instructions: No DC home with Oxygen: No Meaningful Use Info Meaningful Use Meaningful Use Diagnoses (Choose all that apply): None applicable Discharge Plan Admission Admit Date/Time: 06/23/25 12:55 Primary Reason for Your Visit: pneumonia, acute asthma exacerbation Attending Provider: Gifty Holden Primary Care Provider: Care Physician,No Primary Consulting Providers: Mark Anthony Gregorio Instructions Patient Instructions: ED Pneumonia (Adult), Asthma Discharge Orders/Prescriptions Prescriptions: New prednisone 20 mg tablet 40 mg PO DAILY Qty: 10 0RF levofloxacin 500 mg tablet 500 mg PO DAILY Qty: 5 0RF albuterol sulfate 90 mcg/actuation aerosol powdr breath activated 2 inh inhalation Q4H PRN (Reason: shortness of breath or wheezing) Qty: 1 0RF Continued quetiapine 400 mg tablet 400 mg PO QHS lithium carbonate 600 mg capsule 600 mg PO QHS gabapentin 300 mg capsule 600 mg PO TID quetiapine 100 mg tablet 100 mg PO .qid buprenorphine-naloxone 8-2 mg film 1 ea sublingual BID albuterol sulfate [Ventolin HFA] 90 mcg/actuation HFA aerosol inhaler 2 puff inhalation Q6H PRN (Reason: shortness of breath or wheezing) Qty: 6.7 0RF Discontinued albuterol sulfate 1 INHALER inhaler 1 - 2 puff inhalation Q4H PRN PRN (Reason: Wheezing) Qty: 1 0RF Referrals / Follow Up: Jaz Fournier MD [Med Staff - Active Staff] - Within 2 Weeks (see to establish PCP care) Care Physician,No Primary [Primary Care Provider] - Disposition Disposition (needs filled in before D/C Order can be placed): Home, Self Care Charges/Coding Visit Charges Inpatient E&M: 76166 Disch Hosp >30min
== END 2025-06-25 13:45 | disposition home or self-care (01) | DRG 141 ==
LOC: ED 10:45 → PCU 13:11
PROVIDERS: Admitting Provider Hospitalist; Emergency Provider Emergency Medicine; Visit Provider Student in an Organized Health Care Education/Training Program
DX: J45.901 Unspecified asthma with (acute) exacerbation (principal); J18.9 Pneumonia, unspecified organism; F19.11 Other psychoactive substance abuse, in remission; F17.210 Nicotine dependence, cigarettes, uncomplicated; R09.02 Hypoxemia; R06.89 Other abnormalities of breathing; Z79.899 Other long term (current) drug therapy; Z79.891 Long term (current) use of opiate analgesic; B95.62 Methicillin resistant Staphylococcus aureus infection as the cause of diseases classified elsewhere
CPT/HCPCS: 36415; 71045; 80048; 83605; 83880; 84145; 84484; 85025; 85027; 85379; 87070; 87077; 87186; 87205; 87631; 87633; 93005; 94640; 94668; 99285; A4216